=== PATIENT | male | born 1955 | race Caucasian/White ===

== ENCOUNTER 2019-09-25 09:29 | Emergency (ER) | payer OTHER, SELFPAY ==
[2019-09-25] VITALS (8 sets, daily range): BP systolic 122–149; BP diastolic 65–108; PULSE 92–113; RESP 18–24; TEMP 36.9; O2SAT 92–95; BMI 31.4
--- NOTE | 2019-09-25 09:53 | ED_ITS ---
HPI - SOB/Dyspnea General: Chief Complaint: Shortness of Breath/Dyspnea Stated Complaint: SOB Time Seen by Provider: 09/25/19 09:53 History of Present Illness: HPI Narrative: 64-year-old male comes in complaining of shortness of breath the last week getting progressively worse. He has a history of COPD he is not usually on oxygen. 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 including [employer] he did encounter a large number of people and was not regularly wearing any kind of mask. He does not had a fever at all. He has a slightly productive cough but it does not change from his baseline. He has been slightly more constipated he denies any dysuria urgency or frequency. No hematochezia melena hematemesis or coffee- ground emesis. he repeatedly denies any chest pain, but he does have a known history of coronary artery disease. He does have some inhaled medications at home that he has been using the only when he definitively identifies his albuterol which is helpful. MD elicited complaint: shortness of breath and cough Pertinent past history: COPD Onset (ago): week(s) (1) Context: recent travel ([facility] where he encountered a number of people throughout the city making deliveries with his truck) Timing: intermittent Severity: moderate Exacerbating factors: movement Relieving factors: rest and bronchodilators Known history of: COPD Associated symptoms: Reports cough; Deny chest congestion, chest pain, fever(s), hemoptysis, myalgias, nausea, palpitations, syncope or vomiting Treatment prior to arrival: bronchodilator Review of Systems 2 Const: Denies: fever ENMT: Denies: throat pain, ear pain, nasal discharge or nasal congestion Card: Denies: chest pain, palpitations or syncope Resp: Denies: coughing up blood or chest congestion GI: Denies: nausea or vomiting : Denies: flank pain, painful urination, urinary frequency or urinary urgency Skin/Breast: Denies: rash or itching PFSH ED PFSH: Social History Smoking and tobacco status: former smoker Physical Exam Const: COMMON NORMALS: no apparent distress GENERAL APPEARANCE: cooperative and comfortable ORIENTATION/CONSCIOUSNESS: Yes awake, Yes oriented to person, Yes oriented to place and Yes oriented to time HENMT: COMMON NORMALS: normocephalic, head/scalp atraumatic, hearing grossly normal bilaterally, external ears normal, EAC's normal, TM's normal bilaterally, nasal mucous membranes and turbinates normal, moist oral mucous membranes and oropharynx normal HEAD & SCALP: normocephalic and atraumatic NOSE: nasal mucous membranes and turbinates normal EXTERNAL EAR: Yes external ears normal EXTERNAL AUDITORY CANAL: EAC's normal TYMPANIC MEMBRANE: TM's normal bilaterally Eye: COMMON NORMALS: PERRL, EOMs intact bilaterally, conjunctivae normal and no scleral icterus CONJUNCTIVA: Yes conjunctivae normal PUPIL: Yes PERRL Neck/C-Spine: COMMON NORMALS: full ROM, no lymphadenopathy, supple and no JVD Lymph: LYMPHATIC: no lymphadenopathy noted and no lymphedema noted Resp: COMMON NORMALS: normal respiratory effort, no retractions and no use of accessory muscles AUSCULTATION: wheezes expiratory wheezes and throughout Cardio: COMMON NORMALS: no JVD, regular rate, regular rhythm and no murmurs RATE: regular rate RHYTHM: regular rhythm GI: COMMON NORMALS: soft to palpation and no hepatosplenomegaly AUSCULTATION: Yes normoactive bowel sounds PALPATION: Yes soft, No tender, No guarding and Yes no hepatosplenomegaly Extremity: COMMON NORMALS: normal to inspection, normal capillary refill, no clubbing, cyanosis or edema, no calf tenderness and no pedal edema Neuro: SENSORIUM/ORIENTATION: Yes oriented to person, Yes oriented to place and Yes oriented to time Skin: COMMON NORMALS: no rashes or lesions noted GENERAL SKIN EXAM: no rashes or lesions noted Course Vital Signs: Vital signs: Vital Signs Temperature 98.4 F 09/25/19 09:34 Pulse Rate 92 09/25/19 14:16 Respiratory Rate 20 H 09/25/19 14:16 Blood Pressure 122/72 09/25/19 14:16 Pulse Oximetry 95 09/25/19 14:16 MDM - SOB/Dyspnea MDM Narrative: Medical decision making narrative: Patient appears like he is a moderate pneumonia. He is handling this well is well compensated at this point we recommend that he self quarantine until his COVID-19 results are available. We will start him on doxycycline Medrol dose pack continue to use albuterol MDI as needed. Return if has worsening problems. Lab Data: Labs: Lab Results 04/24/20 04/24/20 04/24/20 Range/Units 10:30 10:45 10:45 WBC 4.4 (4.0-10.0) 10^3/ uL RBC 4.30 (4.1-5.3) 10^6/u L Hgb 10.8 L (11.7-16.6) g/dL Hct 36.6 L (42.0-52.0) % MCV 85.1 (80-94) fL MCH 25.1 L (28.0-34.0) pg MCHC 29.5 L (30.0-36.0) g/dL RDW 18.1 H (12.1-15.1) % Plt Count 207 (130-400) 10^3/c mm MPV 10.4 (7.4-10.4) fL Neut % (Auto) 69.4 % Lymph % (Auto) 18.2 % [place] % (Auto) 9.4 % Eos % (Auto) 2.3 % Baso % (Auto) 0.5 % Neut # (Auto) 3.0 (1.8-7.7) 10^3/u L Lymph # (Auto) 0.8 (0.8-4.8) 10^3/u L [place] # (Auto) 0.4 (0.2-0.9) 10^3/u L Eos # (Auto) 0.1 (0.0-0.8) 10^3/u L Baso # (Auto) 0.0 (0.0-0.1) 10^3/u L Nucleated RBC % (a uto) 0 % Nucleated RBCs # 0.0 /100WBC Specimen Type Arterial Sample Site Radial, left ABG pH 7.44 (7.35-7.45) ABG pCO2 36.8 (35-45) mmHg ABG pO2 64.0 L (80.0-100.0) mmH g ABG HCO3 25.2 (22-26) mmol/L ABG Base Excess 1.2 (-2.0-2.0) mmol/ L Derek Test Pos Hematocrit 33.8 L (42-52) % Hgb O2 Saturation 90.8 L (95-100) % Carboxyhemoglobin 1.4 (0.4-20.1) %THgb Methemoglobin 0.8 (0.4-1.5) % Total Hemoglobin 11.0 L (14-18) g/dL O2 Delivery Device Room air FiO2 21.0 % Enterprise Sales Executive ID [id number] Sodium 143 (136-145) mmol/L Potassium 4.0 (3.5-5.1) mmol/L Chloride 107 (98-107) mmol/L Carbon Dioxide 26 (22-29) mmol/L Anion Gap 14.0 (5-19) BUN 16 (8-23) mg/dL Creatinine 1.2 (0.7-1.2) mg/dL GFR Calculation 60.8 L (90-130) mL/min Glucose 136 H (65-115) mg/dL Calculated Osmolal ity 294 (285-295) mOsm/k g Calcium 8.8 (8.5-10.5) mg/dL Total Bilirubin 0.9 (0.15-1.2) mg/dL AST 15 (0-40) U/L ALT 14 (0-41) U/L Alkaline Phosphata se 91 (40-130) IU/L Total Protein 6.6 (6.6-8.7) g/dL Albumin 3.9 (3.5-5.2) g/dL Globulin 2.7 (1.3-4.6) g/dL Nasal/Oral COVID-1 9 PCR Influenza Type A A g (Negative) Influenza Type B A g (Negative) 09/25/19 09/25/19 Range/Units 10:47 10:47 WBC (4.0-10.0) 10^3/ uL RBC (4.1-5.3) 10^6/u L Hgb (11.7-16.6) g/dL Hct (42.0-52.0) % MCV (80-94) fL MCH (28.0-34.0) pg MCHC (30.0-36.0) g/dL RDW (12.1-15.1) % Plt Count (130-400) 10^3/c mm MPV (7.4-10.4) fL Neut % (Auto) % Lymph % (Auto) % [place] % (Auto) % Eos % (Auto) % Baso % (Auto) % Neut # (Auto) (1.8-7.7) 10^3/u L Lymph # (Auto) (0.8-4.8) 10^3/u L [place] # (Auto) (0.2-0.9) 10^3/u L Eos # (Auto) (0.0-0.8) 10^3/u L Baso # (Auto) (0.0-0.1) 10^3/u L Nucleated RBC % (a uto) % Nucleated RBCs # /100WBC Specimen Type Sample Site ABG pH (7.35-7.45) ABG pCO2 (35-45) mmHg ABG pO2 (80.0-100.0) mmH g ABG HCO3 (22-26) mmol/L ABG Base Excess (-2.0-2.0) mmol/ L Derek Test Hematocrit (42-52) % Hgb O2 Saturation (95-100) % Carboxyhemoglobin (0.4-20.1) %THgb Methemoglobin (0.4-1.5) % Total Hemoglobin (14-18) g/dL O2 Delivery Device FiO2 % Enterprise Sales Executive ID Sodium (136-145) mmol/L Potassium (3.5-5.1) mmol/L Chloride (98-107) mmol/L Carbon Dioxide (22-29) mmol/L Anion Gap (5-19) BUN (8-23) mg/dL Creatinine (0.7-1.2) mg/dL GFR Calculation (90-130) mL/min Glucose (65-115) mg/dL Calculated Osmolal ity (285-295) mOsm/k g Calcium (8.5-10.5) mg/dL Total Bilirubin (0.15-1.2) mg/dL AST (0-40) U/L ALT (0-41) U/L Alkaline Phosphata se (40-130) IU/L Total Protein (6.6-8.7) g/dL Albumin (3.5-5.2) g/dL Globulin (1.3-4.6) g/dL Nasal/Oral COVID-1 9 PCR Negative Influenza Type A A g Negative (Negative) Influenza Type B A g Negative (Negative) Discharge Plan Discharge Patient Disposition: Home, Self-Care Clinical Impression: Community acquired pneumonia, Acute exacerbation of chronic obstructive airways disease Condition: Stable Prescriptions: New doxycycline hyclate 100 mg capsule 100 mg PO BID 10 Days Qty: 20 RF: 0 Medrol (Joe) 4 mg tablets,dose pack See Rx Instructions .ROUTE .COMPLEX Qty: 21 RF: 0 No Action atorvastatin 20 mg Tablet 10 mg PO DAILY RF: 0 ipratropium-albuterol 0.5 mg-3 mg(2.5 mg base)/3 mL Solution For Nebulization 3 ml INHALATION Q6H PRN (Reason: Shortness Of Breath) RF: 0 aspirin 325 mg Tablet 325 mg PO DAILY RF: 0 levothyroxine 50 mcg Tablet 50 mcg PO DAILY RF: 0 pantoprazole 40 mg Tablet,Delayed Release (Dr/Ec) 40 mg PO DAILY RF: 0 metoprolol tartrate 50 mg Tablet 25 mg PO BID RF: 0 albuterol sulfate 90 mcg/actuation Hfa Aerosol Inhaler 2 puff INHALATION Q6H PRN (Reason: Shortness Of Breath) RF: 0 budesonide-formoterol 80-4.5 mcg/actuation Hfa Aerosol Inhaler 2 puff INHALATION BID RF: 0 Vitamin D3 50 mcg (2,000 unit) Capsule 100 mcg PO DAILY RF: 0 Discharge Orders: Discharge Order (Routine); Ordered 09/25/19 Ordered By: Job Magana Referrals: Isela Gipson, FILM SORTER [Primary Care Provider] - Discharge Diet: Usual diet Discharge Activity: Increase activity as tolerated Activity Restrictions/Additional Instructions: Recommend that you self quarantine until the results of your COVID-19 test are available. Use albuterol 2 puffs every 4 hours as needed antibiotics and steroids as prescribed today follow-up with your primary care doctor early next week. Return to the emergency room if you have any difficulties or worsening symptoms. 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
--- NOTE | 2019-09-25 10:11 | XR_ITS ---
WS: [id number] CHEST XRAY TECHNIQUE: Portable chest. CLINICAL INFORMATION: cough COMPARISON: May 27, 2019 FINDINGS: Heart: Cardiomegaly. Sternotomy. CABG. Lungs: Small left greater than right pleural effusions. Bibasilar atelectasis. Interstitial infiltrat es in the lower lobes bilaterally and left midlung. Bones: Normal visualized bony structures. XR/XR chest 1V portable [id number] IMPRESSION: 1. Interstitial infiltrates suspicious for pneumonia in both lower lobes and l eft midlung. 2. Small left greater than right pleural effusions with chronic appearing pleu ral thickening. 3. Sternotomy with cardiomegaly and CABG.
[2019-09-25] MEDS: albuterol 8 gm MDI 2 PUFF INHALATION (10:30)
[2019-09-25 10:42] LABS: ABG PCO2 36.8 mmHg (35-45); ABG PH Result 7.44 (7.35-7.45); Arterial Blood Gas Hematocrit 33.8 % (42-52); Base Excess ABG 1.2 mmol/L (-2.0-2.0); Blood Gas Allen Test Pos; Blood Gas Operator Identificat amh; Blood Gas Sample Site Radial, left; Blood Gas Sample Type Arterial; Carboxyhemoglobin 1.4 %THgb (0.4-20.1); HCO3 ABG 25.2 mmol/L (22-26); HGB O2 Sat 90.8 % (95-100); Methemoglobin 0.8 % (0.4-1.5); Oxygen Device ROOM AIR
[2019-09-25 11:22] LABS: Basophils % 0.5 %; Eosinophils # 0.1 10^3/uL (0.0-0.8); Eosinophils % 2.3 %; Hematocrit 36.6 % (42.0-52.0); Hemoglobin 10.8 g/dL (11.7-16.6); Lymphocytes # 0.8 10^3/uL (0.8-4.8); Lymphocytes % 18.2 %; Mean Corpuscular HGB Conc 29.5 g/dL (30.0-36.0); Mean Corpuscular Hemoglobin 25.1 pg (28.0-34.0); Mean Corpuscular Volume 85.1 fL (80-94); Mean Platelet Volume 10.4 fL (7.4-10.4); Monocytes # 0.4 10^3/uL (0.2-0.9); Monocytes % 9.4 %; Neutrophils % 69.4 %; Nucleated Red Blood Cells % 0 %; Platelet Count 207 10^3/cmm (130-400); Red Cell Distribution Width 18.1 % (12.1-15.1); White Blood Count 4.4 10^3/uL (4.0-10.0)
--- NOTE | 2019-09-25 11:36 | CT_ITS ---
WS: [id number] CTA OF THE CHEST WITH PULMONARY EMBOLISM PROTOCOL TECHNIQUE: High-resolution contrast enhanced CTA of the chest with coronal and sagittal reformatted i mages with pulmonary embolism protocol. MIP images are also reviewed. CLINICAL INFORMATION: dyspnea COMPARISON: None. DLP: 1325.[address] scans at [facility] use at least one of these dose optimization techniques: automat ed exposure control; mA and/or kV adjustment per patient size (includes targeted exams where dose is matched to clinical indication); or iterative reconstruction. FINDINGS: Proximal main pulmonary arteries are normal. Normal segmental and subsegmental pulmonary ar teries. No evidence of pulmonary embolus. Advanced centrilobular emphysema. Small left greater than right pleural effusions. Bibasilar atelecta sis. A few patchy opacities in both lower lobes. No mediastinal or hilar lymphadenopathy. No axillary lymphadenopathy. Adrenal glands are normal. Mild edema in the partially visualized gallbladder fossa. Gallbladder can be further evaluated with ultra sound. Mild gallbladder wall thickening. No visualized cholelithiasis. A few small hepatic cysts. Mod erate esophageal hiatal hernia. Attempted notification Job Magana DO at 09/25/2019 2:[address]/CT angio chest PE protcl [id number] IMPRESSION: 1. Proximal main pulmonary arteries are normal. Normal segmental and subsegmen jeremy pulmonary arteries. No evidence of pulmonary embolus. 2. Advanced centrilobular emphysema. 3. Small bilateral pleural effusions with bibasilar atelectasis. A few scatter ed patchy opacities in both lower lobes may be infectious or inflammatory. No f ocal pneumonia. 4. Mild gallbladder wall thickening with a small amount of edema in the gallbl adder fossa. This can be further evaluated with ultrasound. 5. Moderate esophageal hiatal hernia.
[2019-09-25 11:37] LABS: Alanine Aminotransferase 14 U/L (0-41); Albumin Level 3.9 g/dL (3.5-5.2); Alkaline Phosphatase 91 IU/L (40-130); Aspartate Amino Transferase 15 U/L (0-40); Blood Urea Nitrogen 16 mg/dL (8-23); Calcium 8.8 mg/dL (8.5-10.5); Carbon Dioxide 26 mmol/L (22-29); Chloride 107 mmol/L (98-107); Globulin 2.7 g/dL (1.3-4.6); Glomerular Filtration Rate 60.8 mL/min (90-130); Glucose 136 mg/dL (65-115); Osmolality Calculated 294 mOsm/kg (285-295); Sodium 143 mmol/L (136-145); Total Bilirubin 0.9 mg/dL (0.15-1.2); Total Protein 6.6 g/dL (6.6-8.7)
[2019-09-25 11:44] LABS: Influenza A by IFA Negative (Negative); Influenza B by IFA Negative (Negative)
[2019-09-25] MEDS: azithromycin 500 MG in sodium chloride 0.9% 250 ML 250 MG IV (12:15)
[2019-09-25] MEDS: cefTRIAXone 1,000 MG in sodium chloride 0.9% (plus) 50 ML 100 MG IV (13:26)
--- NOTE | 2019-09-25 13:26 | PC.ADMIT ---
108 [facility] Admission Note: The patient,Gabino Jones,64 y/o, was given written information regarding hospital policies, unit procedures and contact persons. Patient's smoking status: former smoker. Vital Signs - 8 hr 09/25/19 09:34 09/25/19 09:52 09/25/19 10:30 Temperature 98.4 F Pulse Rate 113 H 101 H Respiratory Rate 20 H 20 H Blood Pressure 149/108 Pulse Oximetry 94 92 93 09/25/19 10:40 09/25/19 10:47 09/25/19 11:48 Temperature Pulse Rate 98 96 96 Respiratory Rate 20 H 24 H 19 H Blood Pressure 136/83 125/65 Pulse Oximetry 93 94 95 09/25/19 12:18 Temperature Pulse Rate 96 Respiratory Rate 18 Blood Pressure 128/75 Pulse Oximetry 94 [id number]
[2019-09-25] MEDS: iodixanol 320 mg/mL 100mL Btl IV (14:34)
[2019-09-26 09:40] LABS: Coronavirus Lab Test PTC Negative
--- NOTE | 2019-09-26 12:20 | PC.NURSE ---
called patient to inform that his COVID testing was negative. was able to reach patient on number provided and informed him.
== END 2019-09-25 15:08 | disposition home or self-care (01) ==
PROVIDERS: Emergency Provider Family Medicine; Family Provider Nurse Practitioner; PCP Nurse Practitioner
DX: J44.1 Chronic obstructive pulmonary disease with (acute) exacerbation (principal); J44.0 Chronic obstructive pulmonary disease with (acute) lower respiratory infection; J18.8 Other pneumonia, unspecified organism; Z79.82 Long term (current) use of aspirin; Z87.891 Personal history of nicotine dependence
CPT/HCPCS: 12345; 36600; 71045; 71275; 80053; 82805; 85025; 87040; 87070; 87205; 87635; 87804; 94640; 96365; 96366; 96367; 96374; 99283; 99284; J0456; J0696; J2930; J3535; J7050; Q9967

== ENCOUNTER 2019-10-14 12:12 | Inpatient (IN) | payer OTHER, MEDICARE, SELFPAY ==
[2019-10-14] VITALS (47 sets, daily range): BP systolic 112–154; BP diastolic 78–112; PULSE 76–141; RESP 14–28; TEMP 37; O2SAT 88–98; BMI 32.3
--- NOTE | 2019-10-14 12:20 | XR_ITS ---
WS: [id number] PORTABLE CHEST HISTORY: cough COMPARISON: 09/25/2019 Prior CABG. Hyperinflated lungs with emphysema. Increasing opacifications in the lower lung rivera bilaterally. S uperimposed on changes of fibrosis. Small bilateral pleural effusions. Cardiac size: Mildly enlarged cardiac silhouette. Mediastinum/Aorta: Mild atherosclerosis aorta. No osseous abnormality seen. XR/XR chest 1V portable [id number] IMPRESSION: 1. Chronic advanced emphysema. 2. Increasing consolidations at the lung bases is likely representing pneumoni a superimposed on pulmonary fibrosis. 3. Small bilateral pleural effusions.
--- NOTE | 2019-10-14 12:21 | ECG_ITS ---
Measurements Intervals [place] Rate: 119 P: [place]: 0 QRS: 28 QRSD: 129 T: 38 QT: 357 QTc: 503 ATRIAL FIBRILLATION WITH RAPID VENTRICULAR RESPONSE RIGHT BUNDLE BRANCH BLOCK [120+ ms QRS DURATION, UPRIGHT V1, 40+ ms S IN I/ I/aVL/V4/V5/V6] Compared to ECG 05/27/2019 05:06:02 Sinus rhythm no longer present Electronically Signed On 10-14-2019 20:32:56 CDT by Mathew Sanchez M.D. [email or web address]
--- NOTE | 2019-10-14 12:22 | ED_ITS ---
HPI - SOB/Dyspnea General: Chief Complaint: Shortness of Breath/Dyspnea Stated Complaint: SOB Time Seen by Provider: 10/14/19 12:16 History of Present Illness: HPI Narrative: Mr. Jones is a 64-year-old male who comes in from the OR after being sent by his doctor for the report of worsening pneumonia and hypoxia. Have a history of COPD but does not wear oxygen. He has increased amount of sputum production but no change in color. He states his sputum is clear. He denies any chest pain. Patient states he was tested for the coronavirus approximately 2 to 3 weeks ago and it was negative. He states his symptoms have not changed since then. He otherwise denies any complaints or concerns. At this time he has only mild difficulty breathing. Associated symptoms: Deny abdominal pain, chest pain, diaphoresis, dizziness, extremity pain, fever(s), hemoptysis, lightheadedness, nausea, orthopnea, palpitations, polydipsia, polyuria, syncope or vomiting Review of Systems Const: Denies: fever(s), chills, body aches, fatigue, malaise, night sweats or diaphoresis Eyes: Denies: change in vision, blurry vision or blind spots ENMT: Denies: throat pain, odynophagia, hoarseness, ear or mastoid pain, ear discharge, change in hearing or nasal discharge Card: Denies: chest pain, palpitations, irregular heart rhythm, lightheadedness, syncope, pre-syncope, dyspnea on exertion or orthopnea Resp: Reports: dyspnea, productive cough, non-productive cough and wheezing; Denies: hemoptysis GI: Denies: abdominal pain, nausea, vomiting, hematemesis, coffee ground emesis, heartburn, diarrhea, constipation, GI cramping, hematochezia or melena : Denies: flank pain, dysuria, urinary frequency, urinary urgency, oliguria, urinary incontinence or hematuria Musc: Denies: neck pain, back pain, extremity pain, extremity swelling, joint pain, joint swelling, joint redness, joint warmth or joint stiffness Skin/Breast: Denies: rash, pruritus, erythema, skin tenderness or jaundice Neuro: Denies: headache(s), numbness in extremities, weakness in extremities, sensory changes, lack of coordination, difficulty walking, dizziness, vertigo, confusion or Slurred speech present Endo: Denies: polyuria, polydipsia, tired all the time, cold intolerance, excessive sweating, flushing, hot flashes or heat intolerance Chavez/Lymph: Denies: easy bruising, easy bleeding, petechiae, purpura or enlarged lymph nodes All/Imm: Denies: urticaria, throat swelling, tongue swelling, facial swelling or acute wheezing PFSH ED PFSH: Medical History (Updated 10/14/19 @ 15:21 by Corwin Martini MD) Anemia Atrial fibrillation COPD (chronic obstructive pulmonary disease) Coronary artery disease GERD (gastroesophageal reflux disease) Hyperlipidemia Hypertension Hypothyroidism Surgical History (Updated 10/14/19 @ 15:13 by Corwin Martini MD) History of coronary artery bypass graft March 2019 [facility] History of knee surgery History of vasectomy Family History (Updated 10/14/19 @ 15:13 by Corwin Martini MD) Other CAD (coronary artery disease) Social History (Updated 10/14/19 @ 15:13 by Corwin Martini MD) Smoking and tobacco status: former smoker Alcohol intake: never Substance/Drug Use: never Physical Exam Const: COMMON NORMALS: patient oriented x3, no limitations, healthy appearing and well nourished EXAM LIMITATIONS: no altered mental status GENERAL APPEARANCE: cooperative, well kempt, well developed and in distress (Mild respiratory distress) HENMT: COMMON NORMALS: normocephalic, atraumatic, hearing grossly normal bilaterally, external ears normal, EAC's normal, Normal external nose present and moist oral mucous membranes HEAD & SCALP: normal to inspection, normocephalic and atraumatic FACE & SINUS: normal facial exam and face symmet guillermina NOSE: Normal external nose present and Normal nares present EXTERNAL EAR: Yes external ears normal EXTERNAL AUDITORY CANAL: EAC's normal MOUTH: Normal oral and palatal mucosa present, lip normal and tongue normal Eye: COMMON NORMALS: Equal, round and reactive pupils present, EOMs intact bilaterally, conjunctivae normal and no scleral icterus GENERAL EYE: appearance normal, both eyes and all related structures and normal light reflex ALIGNMENT: Yes alignment normal PERIORBITAL: periorbital findings normal EYELID: eyelids normal CONJUNCTIVA: Yes conjunctivae normal SCLERA: sclerae normal PUPIL: Yes Equal, round and reactive pupils present DIRECT OPHTHALMOSCOPY: Yes normal light reflex Neck/C-Spine: COMMON NORMALS: full ROM, no lymphadenopathy, supple, no meningeal signs and no JVD GENERAL: Yes normal visual inspection and Yes trachea midline CERVICAL SPINE: Yes cervical ROM normal Chest: COMMONS NORMALS: normal inspection of the chest and normal palpation of entire chest wall Resp: EFFORT & INSPECTION: Yes able to speak in complete sentences, Yes tachypneic, Yes respiratory distress and Yes uses accessory muscles AUSCULTATION: no crackles, no rales, rhonchi, wheezes and diminished lung sounds Cardio: COMMON NORMALS: no JVD, regular rate, regular rhythm, S1 normal heart sound present, S2 normal heart sound present, No gallops present (Cardio), No clicks present (Cardio), No murmurs present (Cardio) and No rub (Cardio) RATE: regular rate RHYTHM: regular rhythm HEART SOUNDS: S1 normal heart sound present, S2 normal heart sound present, no click, no gallops, no murmurs and no rubs GI: COMMON NORMALS: Soft to palpation, non-tender, No hepatosplenomegaly present and no masses PALPATION: Yes Soft to palpation, No Tenderness to palpation present (GI), No Guarding due to palpation present (GI), No Rigid due to palpation, Yes No hepatosplenomegaly present, No Hernia present, No Palpable mass present and No Pulsatile mass present : COMMON NORMALS: Yes no CVA tenderness BLADDER/KIDNEY EXAM: Yes no CVA tenderness Back/Pelvis: COMMON NORMALS: no CVA tenderness, thoracic and lumbar spine normal to inspection, no thoracic nor lumbar tenderness and thoraco-lumbar ROM normal Extremity: COMMON NORMALS: normal to inspection, full ROM, capillary refill normal, no joint enlargement, no clubbing, cyanosis or edema and no calf tenderness Neuro: SOFIYA COMA SCALE: document GCS findings [place] coma scale eye opening: Spontaneous [place] coma scale verbal response: Orientated [place] coma scale motor response: Obey commands [place] coma scale total score: 15 COMMON NORMALS: patient oriented x3, CN's II-XII intact bilaterally, moves all extrem ities, no focal motor deficits and no sensory deficits noted MENINGEAL SIGNS: Yes no meningeal signs SPEECH: speech normal Psych: COMMON NORMALS: mental status grossly normal, Normal thought process present, cooperative, normal affect, speech normal and activity/motor behavior normal APPEARANCE: Yes well kempt SPEECH: Yes normal speech THOUGHT PROCESS: Normal thought process present Skin: COMMON NORMALS: no rashes or lesions noted, turgor normal, no jaundice, no petechiae and no mottling GENERAL SKIN EXAM: no rashes or lesions noted and turgor normal Course Vital Signs: Vital signs: Vital Signs Temperature 98.6 F 10/14/19 12:17 Pulse Rate 141 H 10/14/19 14:49 Respiratory Rate 28 H 10/14/19 14:49 Blood Pressure 138/105 10/14/19 14:49 Pulse Oximetry 95 10/14/19 14:49 MDM - SOB/Dyspnea MDM Narrative: Medical decision making narrative: The case was reviewed with Dr. Martini. He agrees to come and evaluate the patient. Patient appears to have failed outpatient treatment of pneumonia but also his A. fib is elevated in the 100s to 1 teens range. This is likely causing the flareup of his heart failure. I will not place him on a drip at this time as his heart rates only in the 100s and sometimes down into the 90s. Patient has been loaded on antibiotics. Further care will be dictated by Dr. Almendarez. Lab Data: Labs: Lab Results 10/14/19 10/14/19 10/14/19 Range/Units 12:26 12:26 12:26 WBC 5.9 (4.0-10.0) 10^3/ uL RBC 4.72 (4.1-5.3) 10^6/u L Hgb 11.3 L (11.7-16.6) g/dL Hct 38.9 L (42.0-52.0) % MCV 82.4 (80-94) fL MCH 23.9 L (28.0-34.0) pg MCHC 29.0 L (30.0-36.0) g/dL RDW 17.1 H (12.1-15.1) % Plt Count 217 (130-400) 10^3/c mm MPV 9.6 (7.4-10.4) fL Neut % (Auto) 76.5 % Lymph % (Auto) 13.7 % [place] % (Auto) 7.8 % Eos % (Auto) 0.8 % Baso % (Auto) 0.7 % Neut # (Auto) 4.5 (1.8-7.7) 10^3/u L Lymph # (Auto) 0.8 (0.8-4.8) 10^3/u L [place] # (Auto) 0.5 (0.2-0.9) 10^3/u L Eos # (Auto) 0.1 (0.0-0.8) 10^3/u L Baso # (Auto) 0.0 (0.0-0.1) 10^3/u L Nucleated RBC % (a uto) 0 % Nucleated RBCs # 0.0 /100WBC Specimen Type Sample Site ABG pH (7.35-7.45) ABG pCO2 (35-45) mmHg ABG pO2 (80.0-100.0) mmH g ABG HCO3 (22-26) mmol/L ABG O2 Saturation ABG Base Excess (-2.0-2.0) mmol/ L Derek Test A-a O2 Gradient (5-10) mmHg Hematocrit (42-52) % Hgb O2 Saturation (95-100) % Carboxyhemoglobin (0.4-20.1) %THgb Methemoglobin (0.4-1.5) % Total Hemoglobin (14-18) g/dL Ionized Calcium (1.1-1.4) mmol/L O2 Delivery Device FiO2 % Evp Chief Exploration Officer ID Sodium 139 (136-145) mmol/L Potassium 4.3 (3.5-5.1) mmol/L Chloride 103 (98-107) mmol/L Carbon Dioxide 23 (22-29) mmol/L Anion Gap 17.3 (5-19) BUN 22 (8-23) mg/dL Creatinine 1.2 (0.7-1.2) mg/dL GFR Calculation 60.8 L (90-130) mL/min Glucose 90 (65-115) mg/dL Calculated Osmolal ity 284 L (285-295) mOsm/k g Lactic Acid 1.3 (0.5-2.2) mmol/L Calcium 9.1 (8.5-10.5) mg/dL Magnesium 2.2 (1.7-2.3) mg/dL Total Bilirubin 1.2 (0.15-1.2) mg/dL AST 12 (0-40) U/L ALT 13 (0-41) U/L Alkaline Phosphata se 94 (40-130) IU/L Troponin T Baselin e (0-15) ng/mL Troponin T 120 Min k[place]isp[place] (0-15) ng/mL Delta Troponin T (0-10) ABS# NT-Pro-B Natriuret Pep 5253 H (0-125) pg/mL Total Protein 6.6 (6.6-8.7) g/dL Albumin 4.3 (3.5-5.2) g/dL Globulin 2.3 (1.3-4.6) g/dL Urine Color (Yellow) Urine Appearance (CLEAR) Urine pH (5-7) Ur Specific Gravit y (1.005-1.030) Urine Protein (Negative) Urine Glucose (UA) (Normal) Urine Ketones (Negative) Urine Blood (Negative) Urine Nitrate (Negative) Urine Bilirubin (NEGATIVE) Urine Urobilinogen (Negative) mg/dL Ur Leukocyte Shyanne ase (Negative) Urine RBC (0-2) /hpf Urine WBC (0-5) /hpf Ur Squamous Epith Cells (0-5) Urine Bacteria (NONE) Urine Mucus Influenza Type A A g (Negative) Influenza Type B A g (Negative) 10/14/19 10/14/19 10/14/19 Range/Units 12:26 12:35 13:27 WBC (4.0-10.0) 10^3/ uL RBC (4.1-5.3) 10^6/u L Hgb (11.7-16.6) g/dL Hct (42.0-52.0) % MCV (80-94) fL MCH (28.0-34.0) pg MCHC (30.0-36.0) g/dL RDW (12.1-15.1) % Plt Count (130-400) 10^3/c mm MPV (7.4-10.4) fL Neut % (Auto) % Lymph % (Auto) % [place] % (Auto) % Eos % (Auto) % Baso % (Auto) % Neut # (Auto) (1.8-7.7) 10^3/u L Lymph # (Auto) (0.8-4.8) 10^3/u L [place] # (Auto) (0.2-0.9) 10^3/u L Eos # (Auto) (0.0-0.8) 10^3/u L Baso # (Auto) (0.0-0.1) 10^3/u L Nucleated RBC % (a uto) % Nucleated RBCs # /100WBC Specimen Type Arterial Sample Site Radial, left ABG pH 7.45 (7.35-7.45) ABG pCO2 32.6 L (35-45) mmHg ABG pO2 62.2 L (80.0-100.0) mmH g ABG HCO3 22.4 (22-26) mmol/L ABG O2 Saturation 91.9 ABG Base Excess -1.1 (-2.0-2.0) mmol/ L Derek Test Pos A-a O2 Gradient 45.6 H (5-10) mmHg Hematocrit 33.9 L (42-52) % Hgb O2 Saturation 90.4 L (95-100) % Carboxyhemoglobin 1.3 (0.4-20.1) %THgb Methemoglobin 0.4 (0.4-1.5) % Total Hemoglobin 11.1 L (14-18) g/dL Ionized Calcium 1.2 (1.1-1.4) mmol/L O2 Delivery Device Room air FiO2 21.0 % Evp Chief Exploration Officer ID [email or web address] Sodium 139.0 (136-145) mmol/L Potassium 4.0 (3.5-5.1) mmol/L Chloride (98-107) mmol/L Carbon Dioxide (22-29) mmol/L Anion Gap (5-19) BUN (8-23) mg/dL Creatinine (0.7-1.2) mg/dL GFR Calculation (90-130) mL/min Glucose 91.0 (65-115) mg/dL Calculated Osmolal ity (285-295) mOsm/k g Lactic Acid (0.5-2.2) mmol/L Calcium (8.5-10.5) mg/dL Magnesium (1.7-2.3) mg/dL Total Bilirubin (0.15-1.2) mg/dL AST (0-40) U/L ALT (0-41) U/L Alkaline Phosphata se (40-130) IU/L Troponin T Baselin e 25 H (0-15) ng/mL Troponin T 120 Min kal[place]el (0-15) ng/mL Delta Troponin T (0-10) ABS# NT-Pro-B Natriuret Pep (0-125) pg/mL Total Protein (6.6-8.7) g/dL Albumin (3.5-5.2) g/dL Globulin (1.3-4.6) g/dL Urine Color (Yellow) Urine Appearance (CLEAR) Urine pH (5-7) Ur Specific Gravit y (1.005-1.030) Urine Protein (Negative) Urine Glucose (UA) (Normal) Urine Ketones (Negative) Urine Blood (Negative) Urine Nitrate (Negative) Urine Bilirubin (NEGATIVE) Urine Urobilinogen (Negative) mg/dL Ur Leukocyte Shyanne ase (Negative) Urine RBC (0-2) /hpf Urine WBC (0-5) /hpf Ur Squamous Epith Cells (0-5) Urine Bacteria (NONE) Urine Mucus Influenza Type A A g Negative (Negative) Influenza Type B A g Negative (Negative) 10/14/19 10/14/19 Range/Units 14:50 14:56 WBC (4.0-10.0) 10^3/ uL RBC (4.1-5.3) 10^6/u L Hgb (11.7-16.6) g/dL Hct (42.0-52.0) % MCV (80-94) fL MCH (28.0-34.0) pg MCHC (30.0-36.0) g/dL RDW (12.1-15.1) % Plt Count (130-400) 10^3/c mm MPV (7.4-10.4) fL Neut % (Auto) % Lymph % (Auto) % [place] % (Auto) % Eos % (Auto) % Baso % (Auto) % Neut # (Auto) (1.8-7.7) 10^3/u L Lymph # (Auto) (0.8-4.8) 10^3/u L [place] # (Auto) (0.2-0.9) 10^3/u L Eos # (Auto) (0.0-0.8) 10^3/u L Baso # (Auto) (0.0-0.1) 10^3/u L Nucleated RBC % (a uto) % Nucleated RBCs # /100WBC Specimen Type Sample Site ABG pH (7.35-7.45) ABG pCO2 (35-45) mmHg ABG pO2 (80.0-100.0) mmH g ABG HCO3 (22-26) mmol/L ABG O2 Saturation ABG Base Excess (-2.0-2.0) mmol/ L Derek Test A-a O2 Gradient (5-10) mmHg Hematocrit (42-52) % Hgb O2 Saturation (95-100) % Carboxyhemoglobin (0.4-20.1) %THgb Methemoglobin (0.4-1.5) % Total Hemoglobin (14-18) g/dL Ionized Calcium (1.1-1.4) mmol/L O2 Delivery Device FiO2 % Evp Chief Exploration Officer ID Sodium (136-145) mmol/L Potassium (3.5-5.1) mmol/L Chloride (98-107) mmol/L Carbon Dioxide (22-29) mmol/L Anion Gap (5-19) BUN (8-23) mg/dL Creatinine (0.7-1.2) mg/dL GFR Calculation (90-130) mL/min Glucose (65-115) mg/dL Calculated Osmolal ity (285-295) mOsm/k g Lactic Acid (0.5-2.2) mmol/L Calcium (8.5-10.5) mg/dL Magnesium (1.7-2.3) mg/dL Total Bilirubin (0.15-1.2) mg/dL AST (0-40) U/L ALT (0-41) U/L Alkaline Phosphata se (40-130) IU/L Troponin T Baselin e (0-15) ng/mL Troponin T 120 Min [place] 22.19 H (0-15) ng/mL Delta Troponin T -2.81 L (0-10) ABS# NT-Pro-B Natriuret Pep (0-125) pg/mL Total Protein (6.6-8.7) g/dL Albumin (3.5-5.2) g/dL Globulin (1.3-4.6) g/dL Urine Color Dark yellow (Yellow) Urine Appearance Clear (CLEAR) Urine pH 5 (5-7) Ur Specific Gravit y 1.025 (1.005-1.030) Urine Protein Neg (Negative) Urine Glucose (UA) 2+ (Normal) Urine Ketones 1+ H (Negative) Urine Blood Neg (Negative) Urine Nitrate Negative (Negative) Urine Bilirubin 1+ H (NEGATIVE) Urine Urobilinogen 1 H (Negative) mg/dL Ur Leukocyte Shyanne ase Negative (Negative) Urine RBC None (0-2) /hpf Urine WBC 0-4 H (0-5) /hpf Ur Squamous Epith Cells 0-4 H (0-5) Urine Bacteria 1+ H (NONE) Urine Mucus 2+ Influenza Type A A g (Negative) Influenza Type B A g (Negative) Imaging Data^: CXR: My impression: Right lower lobe infiltrate, cardiomegaly EKG Data^: EKG 1: Attestation: I personally reviewed and interpreted this EKG as follows: EKG Interpretation Date: 10/14/19 Interpretation: Probable atrial fibrillation with rapid ventricular response at a rate of 119, right bundle branch block, normal axis, no acute ST-T wave changes. EKG 2: Attestation: I personally reviewed and interpreted this EKG as follows: EKG Interpretation Date: 10/14/19 EKG interpretation time: 13:09 Interpretation: Atrial tachycardia with a ventricular rate of 116, right bundle branch block, nonspecific ST and T wave changes.Atrial fibrillation versus Discharge Plan Discharge Patient Disposition: Admitted As Inpatient Clinical Impression: Pneumonia, COPD (chronic obstructive pulmonary disease), CHF (congestive heart failure), Atrial fibrillation with rapid ventricular response Condition: Stable Prescriptions: No Action atorvastatin 20 mg Tablet 10 mg PO DAILY RF: 0 ipratropium-albuterol 0.5 mg-3 mg(2.5 mg base)/3 mL Solution For Nebulization 3 ml INHALATION Q6H PRN (Reason: Shortness Of Breath) RF: 0 aspirin 325 mg Tablet 325 mg PO DAILY RF: 0 levothyroxine 50 mcg Tablet 50 mcg PO DAILY RF: 0 pantoprazole 40 mg Tablet,Delayed Release (Dr/Ec) 40 mg PO DAILY RF: 0 metoprolol tartrate 50 mg Tablet 25 mg PO BID RF: 0 albuterol sulfate 90 mcg/actuation Hfa Aerosol Inhaler 2 puff INHALATION Q6H PRN (Reason: Shortness Of Breath) RF: 0 budesonide-formoterol 80-4.5 mcg/actuation Hfa Aerosol Inhaler 2 puff INHALATION BID RF: 0 cholecalciferol (vitamin D3) [Vitamin D3] 50 mcg (2,000 unit) Capsule 100 mcg PO DAILY RF: 0 doxycycline monohydrate 100 mg Capsule 100 mg PO BID RF: 0 omeprazole 20 mg Capsule,Delayed Release(Dr/Ec) 20 mg PO BID RF: 0 Referrals: Isela Gipson FNP [Primary Care Provider] - 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 of Care Code ED 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
[2019-10-14 12:38] LABS: Basophils % 0.7 %; Eosinophils # 0.1 10^3/uL (0.0-0.8); Eosinophils % 0.8 %; Hematocrit 38.9 % (42.0-52.0); Hemoglobin 11.3 g/dL (11.7-16.6); Lymphocytes # 0.8 10^3/uL (0.8-4.8); Lymphocytes % 13.7 %; Mean Corpuscular Hemoglobin 23.9 pg (28.0-34.0); Mean Corpuscular Volume 82.4 fL (80-94); Mean Platelet Volume 9.6 fL (7.4-10.4); Monocytes # 0.5 10^3/uL (0.2-0.9); Monocytes % 7.8 %; Neutrophils # 4.5 10^3/uL (1.8-7.7); Neutrophils % 76.5 %; Nucleated Red Blood Cells % 0 %; Platelet Count 217 10^3/cmm (130-400); Red Blood Count 4.72 10^6/uL (4.1-5.3); Red Cell Distribution Width 17.1 % (12.1-15.1); White Blood Count 5.9 10^3/uL (4.0-10.0)
[2019-10-14 12:48] LABS: ABG PCO2 32.6 mmHg (35-45); ABG PH Result 7.45 (7.35-7.45); Alveolar-Arterial Oxygen Gradi 45.6 mmHg (5-10); Arterial Blood Gas Hematocrit 33.9 % (42-52); Base Excess ABG -1.1 mmol/L (-2.0-2.0); Blood Gas Allen Test Pos; Blood Gas Operator Identificat amh; Blood Gas Sample Site Radial, left; Blood Gas Sample Type Arterial; Carboxyhemoglobin 1.3 %THgb (0.4-20.1); HCO3 ABG 22.4 mmol/L (22-26); HGB O2 Sat 90.4 % (95-100); Ionized Calcium Level - ABG 1.2 mmol/L (1.1-1.4); Methemoglobin 0.4 % (0.4-1.5); Oxygen Device ROOM AIR; Oxygen Saturation ABG 91.9; PO2 ABG 62.2 mmHg (80.0-100.0); Total Hemoglobin 11.1 g/dL (14-18)
[2019-10-14 12:53] LABS: Troponin(5th) Baseline 25 ng/mL (0-15)
[2019-10-14 13:07] LABS: Lactic Sepsis W/Reflex 1.3 mmol/L (0.5-2.2)
[2019-10-14] MEDS: sodium chloride 0.9% 1,000 ML 100 ML IV (13:23)
[2019-10-14] MEDS: levofloxacin-dextrose 5 % 750 MG/150 ML PREMIX 150 MG IV (13:24)
[2019-10-14 14:12] LABS: Influenza A by IFA Negative (Negative); Influenza B by IFA Negative (Negative)
[2019-10-14 14:14] LABS: Alanine Aminotransferase 13 U/L (0-41); Albumin Level 4.3 g/dL (3.5-5.2); Alkaline Phosphatase 94 IU/L (40-130); Anion Gap 17.3 (5-19); Aspartate Amino Transferase 12 U/L (0-40); Carbon Dioxide 23 mmol/L (22-29); Chloride 103 mmol/L (98-107); Creatinine Clr Calc Pharmacy 73.4576; Globulin 2.3 g/dL (1.3-4.6); Glomerular Filtration Rate 60.8 mL/min (90-130); Glucose 90 mg/dL (65-115); Potassium 4.3 mmol/L (3.5-5.1); Sodium 139 mmol/L (136-145); Total Bilirubin 1.2 mg/dL (0.15-1.2); Total Protein 6.6 g/dL (6.6-8.7)
[2019-10-14 14:54] LABS: Blood Urea Nitrogen 22 mg/dL (8-23); Calcium 9.1 mg/dL (8.5-10.5); Magnesium 2.2 mg/dL (1.7-2.3); Osmolality Calculated 284 mOsm/kg (285-295)
[2019-10-14 14:56] LABS: NT Pro B Type Natriuretic Pept 5253 pg/mL (0-125)
--- NOTE | 2019-10-14 15:09 | P.HP_ITS ---
Providers/Chief Complaint Primary Care Provider: PATO Hernandez Chief Complaint: SOB History of Present Illness Gabino Jones is a 64 year old male that presents to the emergency department with shortness of breath. He reports is been going in the several weeks. He has been treated with steroids, and last treatment was a course of doxycycline. He reports he is coughing. He feels like he has some leg swelling. Sputum is pr oductive of white sputum. He feels chilled on occasion but has not taken his temperature. He denies any significant chest discomfort. He has not had any nausea or vomiting. He cannot remember whether he took his metoprolol this morning. He does not believe his heart rate has been elevated at home. No direct exposure to anybody with COVID that he is aware of. Was checked for COVID September 24 and was negative. Nocturnal dyspnea, orthopnea Medications/Allergies Home Medications Medication Instructions Recorded Confirmed Last Taken Type albuterol sulfate 2 puff INHALATION Q6H PRN 09/25/19 10/14/19 10/14/19 History aspirin 325 mg PO DAILY 09/25/19 10/14/19 10/14/19 History atorvastatin 10 mg PO DAILY 09/25/19 10/14/19 Unknown History budesonide-formoterol 2 puff INHALATION BID 09/25/19 10/14/19 10/14/19 History cholecalciferol (vitamin D3) 100 mcg PO DAILY 09/25/19 10/14/19 10/14/19 History [Vitamin D3] ipratropium-albuterol 3 ml INHALATION Q6H PRN 09/25/19 10/14/19 10/14/19 History levothyroxine 50 mcg PO DAILY 09/25/19 10/14/19 Unknown History metoprolol tartrate 25 mg PO BID 09/25/19 10/14/19 10/14/19 History pantoprazole 40 mg PO DAILY 09/25/19 10/14/19 Unknown History doxycycline monohydrate 100 mg PO BID 10/14/19 10/14/19 10/14/19 History omeprazole 20 mg PO BID 10/14/19 10/14/19 10/14/19 History Allergies Allergy/AdvReac Type Severity Reaction Status Date / Time bupropion [From Wellbutrin] Allergy Unknown Verified 10/14/19 12:22 PFSH Acute PFSH: Medical History (Updated 10/14/19 @ 15:21 by Corwin Martini MD) Anemia Atrial fibrillation COPD (chronic obstructive pulmonary disease) Coronary artery disease GERD (gastroesophageal reflux disease) Hyperlipidemia Hypertension Hypothyroidism Surgical History (Updated 10/14/19 @ 15:13 by Corwin Martini MD) History of coronary artery bypass graft March 2019 [facility] History of knee surgery History of vasectomy Family History (Updated 10/14/19 @ 15:13 by Corwin Martini MD) Other CAD (coronary artery disease) Social History (Updated 10/14/19 @ 15:13 by Corwin Martini MD) Smoking and tobacco status: former smoker Alcohol intake: never Substance/Drug Use: never Vitals/I&O/Wt Last Vital Signs Temp 98.6 F 10/14/19 12:17 Pulse 141 H 10/14/19 14:49 Resp 28 H 10/14/19 14:49 BP 138/105 10/14/19 14:49 Pulse Ox 95 10/14/19 14:49 10/14/19 10/14/19 10/14/19 06:59 14:59 22:59 Intake Total 150 / 150 Balance 150 / 150 Weight last 48 hrs Weight 102.058 kg Physical Exam Narrative: EXAM NARRATIVE: General exam demonstrates an adult white male, reporting shortness of breath but no obvious distress. HEENT: Pupils equally round. Oropharynx clear. Neck is supple no lymphadenopathy or thyromegaly Cardiovascular irregular, irregular with accelerated rate Lungs diminished breath sounds at the bases bilaterally. Coarse breath sounds at the bases bilaterally Abdomen is soft with positive bowel sounds. No obvious organomegaly was deferred Extremities show bilateral edema left greater than right 1-2+. Skin no rash Neuro no focal deficits Data : 10/14/19 12:26 10/14/19 12:26 Micro: Microbiology 10/14/19 12:40 Blood Culture - Preliminary Blood SPECIMEN COLLECTED 10/14/19 12:26 Blood Culture - Preliminary Blood SPECIMEN COLLECTED Other data: pH 7.45, PCO2 32, PO2 62 LFTs normal Initial troponin XX 5 BNP elevated at 5253 Urine without any evidence of obvious infection. Influenza negative. COVID pending and previous negative Chest x-ray shows COPD, increasing consolidation at the bases, postoperative heart, small bilateral effusions. Cannot rule out CHF. EKG demonstrates atrial fibrillation with rapid ventricular rate, borderline left axis deviation, right bundle branch block A&P Assessment and plan (1) Pneumonia: There is been concern that he has failed outpatient treatment for pneumonia. He certainly has had doxycycline and prednisone recently, and did not improve. Sputum culture Repeat Covid 19 testing already in process Status: Acute (2) CHF (congestive heart failure): Initiate Lasix 40 mg IV every 12 hours Check echocardiogram Discontinue IV fluids started in ER Close follow-up of electrolytes Status: Acute (3) COPD exacerbation: Prednisone 40 mg daily Combivent every 4 hours Continue home steroid inhalation Status: Acute (4) Atrial fibrillation: With rapid ventricular rate. Metoprolol 5 mg IV in ER. If does not respond consider Cardizem drip. Continue patient's home metoprolol. Full dose anticoagulation with Lovenox. Patient has past history of atrial fibrillation requiring amiodarone and was given apixaban after discharge in March 2019, when he had bypass surgery. Serial troponins Status: Acute Additional A&P Information History hypertension, continue metoprolol of coronary artery disease Hyperlipidemia, continue statin GERD, continue proton pump inhibitor Hypothyroidism, check TSH History of anemia, appears mild Full code Full admission Lovenox for anticoagulation Attestations Medical Necessity Statement*: Will need greater than 2 midnight stay for evaluation and treatment of acute exacerbation of CHF, atrial fibrillation with rapid ventricular rate Time Spent in Patient Care: Greater than 35 minutes 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 of Care Code Acute Conformal Pad Former for Kevin Arceo Diagnoses Pneumonia J18.9 CHF (congestive heart failure) I50.9 COPD exacerbation J44.1 Atrial fibrillation I48.91
[2019-10-14 15:13] LABS: Bilirubin Urine 1+ (NEGATIVE); Blood Urine Neg (Negative); Glucose Urine UA 2+ (Normal); Ketones Urine 1+ (Negative); Leukocyte Esterase Urine Negative (Negative); Nitrate Urine Negative (Negative); Protein Urine Neg (Negative); Specific Gravity, Urine 1.025 (1.005-1.030); Urine Appearance Clear (CLEAR); Urine Color Dark Yellow (Yellow); Urobilinogen Urine 1 mg/dL (Negative); pH Urine 5 (5-7)
[2019-10-14] MEDS: metoprolol tartrate 1 mg/1 mL SDV 5 mL 5 MG IV (15:18)
[2019-10-14 15:20] LABS: Troponin 5 2HR 22.19 ng/mL (0-15)
[2019-10-14 15:21] LABS: Troponin 5 2HR Delta -2.81 ABS# (0-10)
[2019-10-14 15:22] LABS: Add Urine Culture? No; Bacteria Urine 1+; Mucus Urine 2+; Squamous Epithelial Cell Urine 0-4 (0-5); WBC Urine 0-4 /hpf (0-5)
--- NOTE | 2019-10-14 18:21 | ECG_ITS ---
Measurements Intervals [place] Rate: 116 P: IA: 0 QRS: 20 QRSD: 133 T: 47 QT: 375 QTc: 523 ATRIAL FLUTTER/TACHYCARDIA WITH RAPID VENTRICULAR RESPONSE RIGHT BUNDLE BRANCH BLOCK [120+ ms QRS DURATION, UPRIGHT V1, 40+ ms S IN I/aVL/V4/V5/V6] Compared to ECG 05/27/2019 05:06:02 Sinus rhythm no longer present Electronically Signed On 10-14-2019 20:35:24 CDT by Mathew Sanchez M.D. [email or web address]
[2019-10-14] MEDS: FUROsemide 10 mg/mL SDV 4mL 40 MG IVP (18:40)
--- NOTE | 2019-10-14 19:08 | PC.NURSE ---
Report Received from OSMEL Campbell and care transferred to OSMEL Dunne
--- NOTE | 2019-10-14 19:47 | PC.NURSE ---
PATIENT SITTING ON EDGE OF BED USING URINAL
--- NOTE | 2019-10-14 22:22 | PC.NURSE ---
COVID19 SWAB PREFORMED BY NURSE AND HAND DELIVERED TO LAB
--- NOTE | 2019-10-14 23:25 | PC.NURSE ---
Dr Stewart notified of patient's arrival to ICU. Orders received that patient can eat a cardiac diet now but should be NPO at midnight. Titrate cardizem drip to keep HR 70-90. Reschedule IV lasix dosing to start at 0800 10/15/2019.
[2019-10-14] MEDS: enoxaparin 100 mg/mL Syringe SUBCUT (23:37)
[2019-10-15] VITALS (37 sets, daily range): BP systolic 88–133; BP diastolic 55–83; PULSE 76–115; RESP 14–27; TEMP 35.8–37; O2SAT 2–99
[2019-10-15 00:06] LABS: Thyroid Stimulating Hormone 30.91 uIU/mL (0.27-4.20)
[2019-10-15 04:06] LABS: Hemoglobin 11.2 g/dL (11.7-16.6); Lymphocytes # 0.5 10^3/uL (0.8-4.8); Lymphocytes % 10.9 %; Mean Corpuscular HGB Conc 30.3 g/dL (30.0-36.0); Mean Corpuscular Hemoglobin 24.8 pg (28.0-34.0); Mean Corpuscular Volume 81.9 fL (80-94); Mean Platelet Volume 10.6 fL (7.4-10.4); Monocytes # 0.1 10^3/uL (0.2-0.9); Neutrophils % 86.7 %; Nucleated Red Blood Cells % 0 %; Platelet Count 231 10^3/cmm (130-400); Red Blood Count 4.52 10^6/uL (4.1-5.3); Red Cell Distribution Width 17.2 % (12.1-15.1); White Blood Count 4.6 10^3/uL (4.0-10.0)
[2019-10-15 04:22] LABS: Anion Gap 18.1 (5-19); Blood Urea Nitrogen 28 mg/dL (8-23); Calcium 9.4 mg/dL (8.5-10.5); Carbon Dioxide 22 mmol/L (22-29); Chloride 102 mmol/L (98-107); Creatinine Clr Calc Pharmacy 73.4576; Glomerular Filtration Rate 60.8 mL/min (90-130); Glucose 188 mg/dL (65-115); Osmolality Calculated 288 mOsm/kg (285-295); Potassium 4.1 mmol/L (3.5-5.1); Sodium 138 mmol/L (136-145)
[2019-10-15] MEDS: FUROsemide 10 mg/mL SDV 4mL 40 MG IVP ×2 (08:17→20:11)
[2019-10-15] MEDS: levothyroxine 50 mcg Tablet PO (09:26)
[2019-10-15] MEDS: aspirin 325 mg Tablet PO (09:26)
[2019-10-15] MEDS: atorvastatin 40 mg Tablet 10 MG PO (09:26)
[2019-10-15] MEDS: predniSONE 20 mg Tablet 40 MG PO (09:27)
[2019-10-15] MEDS: metoprolol tartrate 50 mg Tablet PO ×2 (09:27→18:11)
[2019-10-15] MEDS: pantoprazole DR 40 mg Tablet PO (09:27)
--- NOTE | 2019-10-15 10:12 | PM.PN ---
Subjective Subjective: Interval history: Gabino reports he is feeling little bit better. Less short of breath. Less swollen. Not coughing quite as much. Medications: Reviewed: Yes Vitals/I&O/Wt Last Vital Signs Temp 97.6 F 10/15/19 08:00 Pulse 99 10/15/19 09:29 Resp 18 10/15/19 09:27 BP 90/57 10/15/19 08:00 Pulse Ox 96 10/15/19 09:27 10/14/19 10/15/19 10/15/19 22:59 06:59 14:59 Intake Total 42.375 / 192.375 Output Total 400 / 400 350 / 350 Balance -357.625 / -207.625 -350 / -350 Weight last 48 hrs Weight 105.959 kg Weight 102.058 kg Physical Exam Narrative: EXAM NARRATIVE: General exam no apparent distress Cardiovascular irregular, irregular with controlled rate Lungs diminished breath sounds at the bases bilaterally. Coarse breath sounds at the bases bilaterally Abdomen is soft with positive bowel sounds. No obvious organomegaly was deferred Extremities show bilateral trace edema Data : 10/15/19 03:30 10/15/19 03:30 Micro: Microbiology 10/14/19 12:40 Blood Culture - Preliminary Blood SPECIMEN COLLECTED 10/14/19 12:26 Blood Culture - Preliminary Blood SPECIMEN COLLECTED A&P Assessment and plan (1) Pneumonia: There is been concern that he has failed outpatient treatment for pneumonia. He certainly has had doxycycline and prednisone recently, and did not improve. Continue oral Levaquin Await sputum culture Await Covid 19 testing Status: Acute (2) CHF (congestive heart failure): Continue IV Lasix Await echocardiogram Status: Acute (3) COPD exacerbation: Continue prednisone 40 mg daily Combivent every 4 hours Continue home steroid inhalation Status: Acute (4) Atrial fibrillation: Increase metoprolol Wean Cardizem off Transition Lovenox to Eliquis Troponin elevation consistent with type II Status: Acute Additional A&P Information History hypertension, continue metoprolol of coronary artery disease Hyperlipidemia, continue statin GERD, continue proton pump inhibitor Hypothyroidism, such elevated. Increase thyroid hormone History of anemia, appears mild, and stable Full code Eliquis for DVT prophylaxis If Covid 19 negative transfer to [facility] Attestations Medical Necessity Statement*: Needs continued hospitalization for treatment of COPD exacerbation, adjustment of medications for atrial fibrillation with rapid ventricular rate. 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
[2019-10-15 11:17] LABS: Procalcitonin 0.09 ng/mL (0-0.5)
[2019-10-15 12:01] LABS: Coronavirus Lab Test PTC NOT DETECTED
[2019-10-15] MEDS: levofloxacin-dextrose 5 % 750 MG/150 ML PREMIX 100 MG IV (13:05)
--- NOTE | 2019-10-15 13:52 | PC.NURSE ---
1330 Covid 19 test results of Neg returned. Removed patient off of isolation. Notified dr Martini, will write transfer orders. Notified patient.
--- NOTE | 2019-10-15 14:13 | PC.NURSE ---
1415 Transfering pt to [facility] with belongings of 2 phones and 2 chargers, keys and clothes. Pt has no c/o's, transfered via w/c.
[2019-10-15] MEDS: apixaban 5 mg Tablet PO (18:11)
[2019-10-16] VITALS (15 sets, daily range): BP systolic 105–153; BP diastolic 69–81; PULSE 89–97; RESP 16–20; TEMP 36.3–36.7; O2SAT 91–99
--- NOTE | 2019-10-16 06:00 | USCV_ITS ---
Gabino Jones Age: 64 Gender: M : 1955 Exam Date: 10/16/2019 06:13 Ordering Phys: Corwin Martini MD Technologist: Aria Wellington Exam Location: [facility] [place] Indication: CHF BP: 108 / 71 HR: 93 Rhythm: Technical Quality: Adequate MEASUREMENTS (Male / Female) Normal Values 2D ECHO LV Diastolic Diameter PLAX 4.7 cm 4.2 - 5.9 / 3.9 - 5.3 cm LV Systolic Diameter PLAX 3.7 cm LV Chamber Size 4.1 cm IVS Diastolic Thickness 1.3 cm 0.6 - 1.0 / 0.6 - 0.9 cm IVS Systolic Thickness 2.3 cm LVPW Diastolic Thickness 1.4 cm 0.6 - 1.0 / 0.6 - 0.9 cm LVPW Systolic Thickness 2.2 cm RV Chamber Size 4.5 cm LVOT Diameter 2.0 cm LV Ejection Fraction 2D Teich 43.7 % LV Ejection Fraction MOD 2C 23.3 % LV Ejection Fraction 2C AL 25.5 % LA Diameter 5.1 cm LA Width 3.8 cm LA Height 5.0 cm RA Width 4.5 cm RA Height 4.9 cm Aorta at Sinotubular Diameter 3.6 cm M-MODE LV Diastolic Diameter MM 5.2 cm 4.2 - 5.9 / 3.9 - 5.3 cm LV Systolic Diameter MM 3.9 cm LV Ejection Fraction MM Teich 49.1 % IVS Diastolic Thickness MM 1.4 cm 0.6 - 1.0 / 0.6 - 0.9 cm IVS Systolic Thickness MM 1.8 cm LVPW Diastolic Thickness MM 1.6 cm 0.6 - 1.0 / 0.6 - 0.9 cm LVPW Systolic Thickness MM 2.4 cm RV Diastolic Diameter MM 2.5 cm Aortic Annulus Diameter 4.0 cm LA Ao Ratio MM 1.3 MV E Point Septal Separation 0.6 cm DOPPLER AV Peak Velocity 87.0 cm/s LVOT Peak Velocity 65.0 cm/s AV Area Cont Eq vti 2.6 cm squared AV Area Cont Eq pk 2.3 cm squared MV Area PHT 5.8 cm squared MV E' Velocity 7.0 cm/s Mitral E to MV E' Ratio 10.4 Mitral E to LV E' Lateral Ratio 12.6 Mitral E to LV E' Septal Ratio 9.0 TR Peak Velocity 238.5 cm/s TR Peak Gradient 22.8 mmHg TR Mean Velocity 180.9 cm/s TR Mean Gradient 14.3 mmHg TR Velocity Time Integral 71.6 cm TV Peak E Velocity 73.0 cm/s PV Peak Velocity 51.0 cm/s RV Acceleration Time 0.2 s RV Ejection Time 0.4 s RV AcT/ET 0.5 FINDINGS Left Ventricle Normal left ventricular cavity size and systolic function. Left ventricular ejection fraction is estimated at 55 %. No diagnostic regional wall motion abnormalities. Grade II diastolic dysfunction, moderately elevated filling pressures. Abnormal septal motion consistent with conduction abnormality. Right Ventricle Normal right ventricular size and systolic function. Right ventricular systolic pressure 34 mmHg. Prominent moderator band. Right Atrium Mildly increased right atrial size. Right atrial pressure estimated at 8 mmHg. Left Atrium Mildly increased left atrial size. Mitral Valve Mild mitral annular calcification. Structurally normal mitral valve. No mitral valve stenosis. Trace mitral valve regurgitation. Aortic Valve Mildly thickened trileaflet aortic valve. No aortic valve stenosis. No aortic valve regurgitation. Tricuspid Valve Structurally normal tricuspid valve. No tricuspid valve stenosis. Mild to moderate tricuspid valve regurgitation. Pulmonic Valve Pulmonic valve not well visualized. No pulmonary valve stenosis. Pericardium No pericardial effusion. Aorta Normal-sized aortic root. CONCLUSIONS 1. Normal left ventricular cavity size and systolic function. Left ventricular ejection fraction is estimated at 55 %. No diagnostic regional wall motion abnormalities. Grade II diastolic dysfunction, moderately elevated filling pressures. 2. Normal right ventricular size and systolic function. 3. Mild to moderate tricuspid valve regurgitation. 4. Pulmonary artery pressure estimated at 34 mmHg. 5. When compared to previous echocardiogram dated 03/21/2019, left ventricle systolic function seems to have slightly improved. Fatou Bruce MD (Electronically Signed) Final Date: 16 Oct 2019 12:52 S
--- NOTE | 2019-10-16 06:26 | PC.NURSE ---
US at bedside
[2019-10-16 06:33] LABS: Basophils % 0.1 %; Hematocrit 35.7 % (42.0-52.0); Hemoglobin 10.5 g/dL (11.7-16.6); Lymphocytes # 0.9 10^3/uL (0.8-4.8); Lymphocytes % 9.4 %; Mean Corpuscular HGB Conc 29.4 g/dL (30.0-36.0); Mean Corpuscular Volume 81.7 fL (80-94); Mean Platelet Volume 10.1 fL (7.4-10.4); Monocytes # 0.6 10^3/uL (0.2-0.9); Monocytes % 6.4 %; Neutrophils # 8.1 10^3/uL (1.8-7.7); Neutrophils % 83.8 %; Nucleated Red Blood Cells % 0 %; Platelet Count 250 10^3/cmm (130-400); Red Blood Count 4.37 10^6/uL (4.1-5.3); Red Cell Distribution Width 17.4 % (12.1-15.1); White Blood Count 9.6 10^3/uL (4.0-10.0)
[2019-10-16 06:52] LABS: Blood Urea Nitrogen 33 mg/dL (8-23); Calcium 9.5 mg/dL (8.5-10.5); Carbon Dioxide 24 mmol/L (22-29); Chloride 101 mmol/L (98-107); Glomerular Filtration Rate 50.9 mL/min (90-130); Glucose 144 mg/dL (65-115); Osmolality Calculated 286 mOsm/kg (285-295); Sodium 138 mmol/L (136-145)
[2019-10-16] MEDS: FUROsemide 10 mg/mL SDV 4mL 40 MG IVP (07:48)
[2019-10-16] MEDS: predniSONE 20 mg Tablet 40 MG PO (09:30)
[2019-10-16] MEDS: pantoprazole DR 40 mg Tablet PO (09:30)
[2019-10-16] MEDS: atorvastatin 40 mg Tablet 10 MG PO (09:30)
[2019-10-16] MEDS: apixaban 5 mg Tablet PO (09:30)
[2019-10-16] MEDS: aspirin 325 mg Tablet PO (09:31)
[2019-10-16] MEDS: levothyroxine 150 mcg Tablet 75 MCG PO (09:31)
[2019-10-16] MEDS: metoprolol tartrate 50 mg Tablet PO (09:31)
--- NOTE | 2019-10-16 13:05 | PM.DCS ---
Discharge Providers Date of Admission: 10/14/19 14:26 Date of Discharge: October 16, 2019 Attending Provider at Admission: Bina Martini MD Attending Provider at Discharge: Corwin Martini MD Primary Care Provider: PATO Hernandez Diagnoses at Discharge Discharge Diagnosis (1) Pneumonia: Status: Acute Problem details: Improved. Will discharge on Levaquin for 7 days (2) CHF (congestive heart failure): Status: Acute Problem details: Compensated. Lasix 40 mg a day, following but with cardiology 2 weeks (3) COPD exacerbation: Status: Acute Problem details: Improved (4) Atrial fibrillation: Status: Acute Problem details: Metoprolol increased Reason for Visit Reason for Visit: Reason For Visit: SOB Hospital Course Hospital Course: Gabino is a 64-year-old white male that presented with swelling, shortness of breath, concern of failing outpatient treatment for pneumonia, atrial fibrillation with rapid ventricular rate. He was placed on IV antibiotics consisting of Levaquin. BNP was found to be elevated and with his lower extremity swelling diuresis was initiated. Diltiazem started for atrial fibrillation with rapid ventricular rate echocardiogram was obtained demonstrated an EF of 55%. Troponin was slightly elevated but he had no chest discomfort or concerns of acute myocardial infarction. Secondary to some wheezing he also received prednisone for COPD exacerbation. During his hospital stay he was ruled out for Covid 19. He gradually improved during his hospital stay, and reported he was feeling quite a lot better by the end on October 15. At that time a home O2 evaluation was performed which demonstrated no need for oxygen at this time. Heart rate was less than 100, controlled on metoprolol dosing that was increased to 50 mg twice daily. Physical Exam Narrative: EXAM NARRATIVE: General exam no apparent distress Cardiovascular irregular, irregular with controlled rate Lungs improved aeration. Faint expiratory wheeze Abdomen is soft with positive bowel sounds Extremities only trace edema Discharge Data Data Completed and Pending: Completed Studies During Hospitalization Category Date Time Status XR chest 1V josue ble [id number] Stat Exams 10/14/19 12:20 Completed CV echo complete* [id number] Routine Ultrasound 10/16/19 06:00 Taken Pending at discharge Category Date Time Status Basic Metabolic P conor AM LABS Lab 10/17/19 04:00 Ordered Blood Culture Sta t Lab 10/14/19 12:40 Results Complete Blood Co unt w/Auto AM LABS Lab 10/17/19 04:00 Ordered Sputum Culture an d Gram Stain [facility] ne Lab 10/15/19 05:57 Results Labs from last 24 hours 10/16/19 10/16/19 06:13 06:13 WBC 9.6 RBC 4.37 Hgb 10.5 L Hct 35.7 L MCV 81.7 MCH 24.0 L MCHC 29.4 L RDW 17.4 H Plt Count 250 MPV 10.1 Neut % (Auto) 83.8 Lymph % (Auto) 9.4 [place] % (Auto) 6.4 Eos % (Auto) 0.0 Baso % (Auto) 0.1 Neut # (Auto) 8.1 H Lymph # (Auto) 0.9 [place] # (Auto) 0.6 Eos # (Auto) 0.0 Baso # (Auto) 0.0 Nucleated RBC % (a uto) 0 Nucleated RBCs # 0.0 Sodium 138 Potassium 4.0 Chloride 101 Carbon Dioxide 24 Anion Gap 17.0 BUN 33 H Creatinine 1.4 H GFR Calculation 50.9 L Glucose 144 H Calculated Osmolal ity 286 Calcium 9.5 Vitals: Last Vital Signs Temp 97.6 F 10/16/19 11:39 Pulse 97 10/16/19 11:39 Resp 17 10/16/19 11:39 BP 116/72 10/16/19 11:39 Pulse Ox 94 10/16/19 11:39 Discharge Plan Discharge Patient Disposition: Home Health Service Condition: Stable Prescriptions: New prednisone 20 mg Tablet 40 mg PO DAILY Qty: 6 RF: 0 metoprolol tartrate 50 mg Tablet 50 mg PO BID Qty: 60 RF: 0 Eliquis 5 mg Tablet 5 mg PO BID Qty: 60 RF: 0 furosemide [Lasix] 40 mg tablet 40 mg PO DAILY Qty: 30 RF: 0 potassium chloride 10 mEq tablet extended release 10 meq PO DAILY Qty: 30 RF: 0 levothyroxine 150 mcg Tablet 75 mcg PO DAILY Qty: 30 RF: 0 levofloxacin [Levaquin] 750 mg tablet 750 mg PO DAILY 7 Days Qty: 7 RF: 0 Continued atorvastatin 20 mg Tablet 10 mg PO DAILY RF: 0 ipratropium-albuterol 0.5 mg-3 mg(2.5 mg base)/3 mL Solution For Nebulization 3 ml INHALATION Q6H PRN (Reason: Shortness Of Breath) RF: 0 aspirin 325 mg Tablet 325 mg PO DAILY RF: 0 pantoprazole 40 mg Tablet,Delayed Release (Dr/Ec) 40 mg PO DAILY RF: 0 albuterol sulfate 90 mcg/actuation Hfa Aerosol Inhaler 2 puff INHALATION Q6H PRN (Reason: Shortness Of Breath) RF: 0 budesonide-formoterol 80-4.5 mcg/actuation Hfa Aerosol Inhaler 2 puff INHALATION BID RF: 0 cholecalciferol (vitamin D3) [Vitamin D3] 50 mcg (2,000 unit) Capsule 100 mcg PO DAILY RF: 0 omeprazole 20 mg Capsule,Delayed Release(Dr/Ec) 20 mg PO BID RF: 0 Discontinued levothyroxine 50 mcg Tablet 50 mcg PO DAILY RF: 0 metoprolol tartrate 50 mg Tablet 25 mg PO BID RF: 0 doxycycline monohydrate 100 mg Capsule 100 mg PO BID RF: 0 Discharge Orders: Discharge Order (Routine); Ordered 10/16/19 Ordered By: Corwin Martini Referrals: Isela Gipson FNP [Primary Care Provider] - 4-7 days Discharge Diet: Cardiac Discharge Activity: Increase activity as tolerated Activity Restrictions/Additional Instructions: Follow-up with your primary care provider Arrange follow-up with [facility] in 2 weeks Consider repeat chest x-ray through primary care provider 3 weeks Discharge Attestations Time Spent in Discharge Care*: greater than 30 min Quality Metrics Clinical Quality Measures During this hospital stay, did patient experience: None 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 of Care Code Acute Clinical Research Manager for g Fwd Diagnoses Pneumonia J18.9 CHF (congestive heart failure) I50.9 COPD exacerbation J44.1 Atrial fibrillation I48.91
== END 2019-10-16 17:30 | disposition home health service (06) | DRG 291 ==
LOC: ER 15:26 → ICU 20:52 → MEDSURG 10-15 14:18 → CSU 10-15 16:48 → MEDSURG 10-15 22:33
PROVIDERS: Emergency Medicine; Admitting Provider Family Medicine; Family Provider Nurse Practitioner; PCP Nurse Practitioner; Visit Provider Internal Medicine
DX: I11.0 Hypertensive heart disease with heart failure (principal); J18.9 Pneumonia, unspecified organism; J44.1 Chronic obstructive pulmonary disease with (acute) exacerbation; J44.0 Chronic obstructive pulmonary disease with (acute) lower respiratory infection; I48.91 Unspecified atrial fibrillation; Z20.828 Contact with and (suspected) exposure to other viral communicable diseases; Z79.82 Long term (current) use of aspirin; I50.9 Heart failure, unspecified; K21.9 Gastro-esophageal reflux disease without esophagitis; E03.9 Hypothyroidism, unspecified; E78.5 Hyperlipidemia, unspecified; I25.10 Atherosclerotic heart disease of native coronary artery without angina pectoris; D64.9 Anemia, unspecified; Z95.1 Presence of aortocoronary bypass graft; Z87.891 Personal history of nicotine dependence
CPT/HCPCS: 12345; 36415; 36600; 71045; 80048; 80051; 80053; 81001; 82810; 83605; 83735; 83880; 83986; 84145; 84443; 84484; 85025; 87040; 87070; 87205; 87635; 87804; 93005; 93306; 94640; 96372; 96375; 99284; J1650; J1940; J1956; J2930; J3490; J3535; J7030; J7512

== ENCOUNTER 2020-01-19 11:32 | Inpatient (IN) | payer OTHER, MEDICARE, SELFPAY ==
[2020-01-19] VITALS (12 sets, daily range): BP systolic 107–129; BP diastolic 69–94; PULSE 90–116; RESP 16–26; TEMP 36.6; O2SAT 93–98; BMI 33.5
--- NOTE | 2020-01-19 11:34 | XR_ITS ---
WS: [id number] EXAM: AP CHEST: PORTABLE UPRIGHT DATE OF EXAM: 01/19/2020, 1142 hours COMPARISON: Chest x-rays from 10/14/2019, 05/27/2019 and 03/16/2019 HISTORY: Patient is 64 years old with dyspnea. FINDINGS: The cardiac silhouette is enlarged but similar. The mediastinal contours are similar. Postop suh otomy changes from prior surgery noted. The pulmonary vascularity is normal. Chronic lung changes are demonstrated. There is extensive parenchymal loss in the upper lung zones again demonstrated. Coa rse interstitial markings are demonstrated within both lung bases most consistent with fibrosis. Vast majority appear to be chronic fibrotic change. There is actually less infiltrate and pleural thicken ing/pleural blunting right costophrenic angle. No enlarging area of consolidating infiltrate is seen. No new effusion or pneumothorax. XR/XR chest 1V portable [id number] IMPRESSION: Chronic lung changes with underlying pulmonary fibrosis felt to be present. Act ually decreased infiltrate right lung base and decreased pleural fluid pleural thickening right costophrenic angle since October 2019. No new consolidating pneumo lashae or extensive progression in interstitial infiltrate demonstrated. With this degree of chronic change a subtle acute superimposed interstitial pneumonitis cannot be fully excluded.
--- NOTE | 2020-01-19 11:35 | ECG_ITS ---
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 Measurements Intervals [place] Rate: 90 P: WI: -1 QRS: 16 QRSD: 129 T: 23 QT: 407 QTc: 499 Interpretive Statements ATRIAL FLUTTER RIGHT BUNDLE BRANCH BLOCK [120+ ms QRS DURATION, UPRIGHT V1, 40+ ms S IN I/aVL/V4/V5/V6] Compared to ECG 10/14/2019 13:09:25 No significant changes Electronically Signed On 01-19-2020 13:24:46 CDT by Favio Ferguson M.D. [id number]
--- NOTE | 2020-01-19 11:39 | CT_ITS ---
WS: [id number] EXAM: CT OF THE ABDOMEN AND PELVIS WITH CONTRAST DATE OF EXAMINATION: 01/19/2020, 1322 hours COMPARISON: CT of the abdomen and pelvis from 12/11/2018. HISTORY: 64 years old with diffuse abdominal pain with nausea. TECHNIQUE: Transaxial computed tomography images obtained through the abdomen and pelvis utilizing 95 mL of Omni paque 300 IV contrast with images acquired in the portal and delayed phase. Images viewed in multiple windows with reconstructions. DLP: 1509.[address] scans at [facility] use at least one of these dose optimization techniques: automat ed exposure control; mA and/or kV adjustment per patient size (includes targeted exams where dose is matched to clinical indication); or iterative reconstruction. FINDINGS: Chronic changes are seen in both lung bases with honeycombing and fibrosis. There has been progressio n in the amount of thickening in the area of honeycombing with some pleural thickening and slight ple ural fluid suggesting possibly an acute pneumonitis. Postop sternotomy changes from prior surgery. He art size is considered minimally enlarged. The aorta is normal in caliber with peripheral calcified p laque. Lumen opacifies normally. The liver is normal in attenuation and enhancement.. Low-density lesions are felt to represent cysts. The gallbladder is moderately distended. Thickening of the wall with pericholecystic inflammatory mario alberto nges are seen felt to represent acute cholecystitis. No biliary dilatation is seen. The portal vein i s patent. Spleen is normal in size and enhancement. Pancreas is normal in appearance. Adrenal glands are normal in appearance. Both kidneys enhance normally. No solid mass lesion. Small nonobstructing calcifications are seen wit hin both kidneys. No obstructive uropathy or ureteral stones are identified. Retrocardiac hernia demonstrated. Stomach otherwise normal in appearance. Small bowel is normal in ca liber. Colon is normal in caliber. Normal appendix in the right false pelvis region. There are findings of a small amount of free fluid interposed between the anterior lobe of the liver and the right hemidiaphragm. Several low-density lesions within the liver felt to represent cysts. Small amount of edema within the josue hepatis region seen. There is also small amount of fluid in th e right false pelvis and the deep pelvis. No intraperitoneal or retroperitoneal adenopathy or mass is identified. Small amount induration around the umbilicus suggesting possible cellulite. Tiny umbilical hernia con taining fat. No large inguinal hernia containing fat. Prostate is minimally enlarged. Seminal vesicles normal in appearance. There is a intramuscular lipoma within the left tensor fascia ruperto muscle. Bladder is normally distended. Scattered changes of arthritis are seen in the spine. Most prominent L5-S1 level. Air in the disc spa ce as well as in the canal at the L5-S1 level. There are findings of bilateral L5-S1 neural foraminal stenosis. CT/CT abdomen pelvis w con* [id number] IMPRESSION: Imaging findings felt to represent acute cholecystitis. Slight increased interstitial markings as well as slight pleural fluid in both lung bases suggesting a possible acute pneumonitis. Other nonemergent findings as described in the body of the report.
[2020-01-19 11:50] LABS: Basophils % 0.8 %; Eosinophils # 0.1 10^3/uL (0.0-0.8); Eosinophils % 1.9 %; Hematocrit 38.4 % (42.0-52.0); Hemoglobin 10.5 g/dL (11.7-16.6); Lymphocytes % 19.5 %; Mean Corpuscular HGB Conc 27.3 g/dL (30.0-36.0); Mean Corpuscular Volume 76.8 fL (80-94); Mean Platelet Volume 9.4 fL (7.4-10.4); Monocytes # 0.6 10^3/uL (0.2-0.9); Monocytes % 12.3 %; Neutrophils # 3.41 10^3/uL (1.8-7.7); Neutrophils % 65.3 %; Nucleated Red Blood Cells % 0 %; Platelet Count 195 10^3/cmm (130-400); Red Cell Distribution Width 18.6 % (12.1-15.1); White Blood Count 5.2 10^3/uL (4.0-10.0)
--- NOTE | 2020-01-19 12:06 | ED_ITS ---
HPI - SOB/Dyspnea General: Chief Complaint: Shortness of Breath/Dyspnea Stated Complaint: SHORTNESS OF BREATH Time Seen by Provider: 01/19/20 11:34 Source: patient Mode of arrival: ambulatory Limitations: no limitations History of Present Illness: HPI Narrative: Mr. Jones is a nice 64-year-old male who comes in complaining of shortness of breath. He also has a complaint of abdominal pain. In regards to shortness of breath he states he has mild worsening of his shortness of breath with exertion. He does not report any chest pain. He denies any worsening of his cough just more wheezing than normal. Patient also says he has a sore spot on his abdomen. He is on Eliquis and has a bruise noted to his upper abdomen. He states he does not remember this being injured but nonetheless has pain in this area. Exertion makes his shortness of breath worse nothing makes his abdominal pain worse. Patient denies any associated nausea or vomiting, he has no urinary symptoms, he denies any other complaints. Patient was sent here from the [place] and he was there just to be seen as an outpatient for lab work he did not plan on coming to the ER today. [facility] Associated symptoms: Reports abdominal pain; Deny chest congestion, chest pain, diaphoresis, dizziness, extremity pain, fever(s), hemoptysis, lightheadedness, nausea, orthopnea, palpitations, syncope or vomiting Review of Systems Const: Denies: fever(s), chills, body aches, fatigue, malaise or diaphoresis Eyes: Denies: change in vision, blurry vision, photophobia, eye discomfort, eye discharge or eye redness ENMT: Denies: throat pain, odynophagia, hoarseness, swelling of lips/tongue, ear or mastoid pain, ear discharge, change in hearing or nasal discharge Card: Denies: chest pain, palpitations, irregular heart rhythm, edema, lightheadedness, syncope, pre-syncope, dyspnea on exertion or orthopnea Resp: Reports: dyspnea and wheezing; Denies: productive cough, non-productive cough, hemoptysis or chest congestion GI: Reports: abdominal pain; Denies: nausea, vomiting, hematemesis, coffee ground emesis, heartburn, diarrhea, constipation, GI cramping, hematochezia or melena : Denies: flank pain, dysuria, urinary frequency, urinary urgency or hematuria Musc: Denies: neck pain, back pain, extremity pain, extremity swelling, joint pain, joint swelling, joint redness, joint warmth or joint stiffness Skin/Breast: Denies: rash, pruritus, erythema or skin tenderness Neuro: Denies: headache(s), numbness in extremities, weakness in extremities, sensory changes, lack of coordination, difficulty walking, dizziness, vertigo, confusion, Slurred speech present or seizure-like activity Chavez/Lymph: Denies: easy bruising, easy bleeding, petechiae, purpura or enlarged lymph nodes All/Imm: Denies: urticaria, throat swelling, tongue swelling, facial swelling or acute wheezing PFSH ED PFSH: Medical History Anemia Atrial fibrillation Metoprolol increased CHF (congestive heart failure) Last echocardiogram normal EF, grade 2/4 diastolic dysfunction October 2019 COPD (chronic obstructive pulmonary disease) Coronary artery disease GERD (gastroesophageal reflux disease) Hyperlipidemia Hypertension Hypothyroidism Surgical History History of coronary artery bypass graft March 2019 [facility] History of knee surgery History of vasectomy Family History Other CAD (coronary artery disease) Social History Smoking and tobacco status: former smoker Alcohol intake: never Physical Exam Const: COMMON NORMALS: no acute distress, patient oriented x3, no limitations, healthy appearing and well nourished GENERAL APPEARANCE: cooperative, well kempt and well developed HENMT: COMMON NORMALS: normocephalic, atraumatic, external ears normal, EAC's normal and Normal external nose present HEAD & SCALP: normal to inspection, normocephalic and atraumatic FACE & SINUS: normal facial exam and face symmetric NOSE: Normal external nose present and Normal nares present EXTERNAL EAR: Yes external ears normal EXTERNAL AUDITORY CANAL: EAC's normal MOUTH: Normal oral and palatal mucosa present, lip normal and tongue normal Eye: COMMON NORMALS: Equal, round and reactive pupils present and conjunctivae normal GENERAL EYE: appearance normal, both eyes and all related structures ALIGNMENT: Yes alignment normal PERIORBITAL: periorbital findings normal EYELID: eyelids normal CONJUNCTIVA: Yes conjunctivae normal SCLERA: sclerae normal PUPIL: Yes Equal, round and reactive pupils present Neck/C-Spine: COMMON NORMALS: full ROM, no lymphadenopathy, supple, no meningeal signs and no JVD GENERAL: Yes normal visual inspection and Yes trachea midline Chest: COMMONS NORMALS: normal inspection of the chest and normal palpation of entire chest wall Resp: COMMON NORMALS: normal respiratory effort, No retractions, No use of accessory muscles and clear to auscultation bilaterally EFFORT & INSPECTION: Yes able to speak in complete sentences and Yes symmetric chest movement AUSCULTATION: clear to auscultation bilaterally, no crackles, rales, no rhonchi and wheezes (Mild throughout) Cardio: COMMON NORMALS: no JVD, regular rate, regular rhythm, S1 normal heart sound present and S2 normal heart sound present RATE: regular rate RHYTHM: regular rhythm HEART SOUNDS: S1 normal heart sound present, S2 normal heart sound present, no click, no gallops, no murmurs, no rubs and abnormal split S2 GI: COMMON NORMALS: Soft to palpation and No hepatosplenomegaly present PALPATION: Yes Soft to palpation, No Tenderness to palpation present (GI), No Guarding due to palpation present (GI), No Rigid due to palpation, Yes No hepatosplenomegaly present, No Hernia present, No Palpable mass present, No Pulsatile mass present and Yes Other GI palpation findings present (Bruise noted to anterior abdominal wall) : COMMON NORMALS: Yes no CVA tenderness BLADDER/KIDNEY EXAM: Yes no CVA tenderness Back/Pelvis: COMMON NORMALS: no CVA tenderness, thoracic and lumbar spine normal to inspection, no thoracic nor lumbar tenderness and thoraco-lumbar ROM normal Extremity: COMMON NORMALS: normal to inspection, full ROM, capillary refill normal, no joint enlargement, no clubbing, cyanosis or edema and no calf tenderness Neuro: COMMON NORMALS: patient oriented x3, CN's II-XII intact bilaterally, moves all extremities, no focal motor deficits and no sensory deficits noted MENINGEAL SIGNS: Yes no meningeal signs SPEECH: speech normal Psych: COMMON NORMALS: mental status grossly normal, Normal thought process present, cooperative, normal affect, speech normal and activity/motor behavior normal APPEARANCE: Yes well kempt SPEECH: Yes normal speech THOUGHT PROCESS: Normal thought process present Skin: COMMON NORMALS: no rashes or lesions noted, turgor normal, no jaundice, no petechiae and no mottling GENERAL SKIN EXAM: no rashes or lesions noted and turgor normal Course Vital Signs: Vital signs: Vital Signs Temperature 97.8 F 01/19/20 11:33 Pulse Rate 95 01/19/20 17:00 Respiratory Rate 23 H 01/19/20 17:00 Blood Pressure 127/81 01/19/20 16:00 Pulse Oximetry 98 01/19/20 17:00 MDM - SOB/Dyspnea MDM Narrative: Medical decision making narrative: The patient is rather difficult to determine whether he is gallbladder disease is from heart failure or is truly acute cholecystitis. I have reviewed the case in full with Dr. Martini he will come to see the patient. He will consult surgery if he feels necessary. Lab Data: Attestation: I reviewed the patient's lab results. Labs: Lab Results 01/19/20 01/19/20 01/19/20 Range/Units 11:40 11:40 11:40 WBC 5.2 (4.0-10.0) 10^3/ uL RBC 5.00 (4.1-5.3) 10^6/u L Hgb 10.5 L (11.7-16.6) g/dL Hct 38.4 L (42.0-52.0) % MCV 76.8 L (80-94) fL MCH 21.0 L (28.0-34.0) pg MCHC 27.3 L (30.0-36.0) g/dL RDW 18.6 H (12.1-15.1) % Plt Count 195 (130-400) 10^3/c mm MPV 9.4 (7.4-10.4) fL Neut % (Auto) 65.3 % Lymph % (Auto) 19.5 % [place] % (Auto) 12.3 % Eos % (Auto) 1.9 % Baso % (Auto) 0.8 % Neut # (Auto) 3.41 (1.8-7.7) 10^3/u L Lymph # (Auto) 1.0 (0.8-4.8) 10^3/u L [place] # (Auto) 0.6 (0.2-0.9) 10^3/u L Eos # (Auto) 0.1 (0.0-0.8) 10^3/u L Baso # (Auto) 0.0 (0.0-0.1) 10^3/u L Nucleated RBC % (a uto) 0 % Nucleated RBCs # 0.0 /100WBC PT 18.60 H (12.1-14.9) SECO NDS INR 1.50 H (0.8-1.2) Specimen Type Sample Site ABG pH (7.35-7.45) ABG pCO2 (35-45) mmHg ABG pO2 (80.0-100.0) mmH g ABG HCO3 (22-26) mmol/L ABG O2 Saturation ABG Base Excess (-2.0-2.0) mmol/ L Derek Test A-a O2 Gradient (5-10) mmHg Hematocrit (42-52) % Hgb O2 Saturation (95-100) % Carboxyhemoglobin (0.4-20.1) %THgb Methemoglobin (0.4-1.5) % Total Hemoglobin (14-18) g/dL Ionized Calcium (1.1-1.4) mmol/L O2 Delivery Device FiO2 % Can Closing Machine Operator ID Sodium 138 (136-145) mmol/L Potassium 4.8 (3.5-5.1) mmol/L Chloride 104 (98-107) mmol/L Carbon Dioxide 25 (22-29) mmol/L Anion Gap 13.8 (5-19) BUN 20 (8-23) mg/dL Creatinine 1.1 (0.7-1.2) mg/dL GFR Calculation 67.2 L (90-130) mL/min Glucose 116 H (65-115) mg/dL Calculated Osmolal ity 284 L (285-295) mOsm/k g Calcium 8.8 (8.5-10.5) mg/dL Magnesium 2.2 (1.7-2.3) mg/dL Total Bilirubin 1.3 H (0.15-1.2) mg/dL AST 19 (0-40) U/L ALT 15 (0-41) U/L Alkaline Phosphata se 135 H (40-130) IU/L Troponin T Baselin e (0-15) ng/L Troponin T 120 Min [place] (0-15) ng/L Delta Troponin T (0-10) ABS# NT-Pro-B Natriuret Pep 3933 H (0-125) pg/mL Total Protein 6.9 (6.6-8.7) g/dL Albumin 4.1 (3.5-5.2) g/dL Globulin 2.8 (1.3-4.6) g/dL Lipase 26 (13-60) U/L TSH (0.27-4.20) uIU/ mL SARS-CoV-2 Ag (Rap id) (Negative) 01/19/20 01/19/20 01/19/20 Range/Units 11:40 11:40 12:11 WBC (4.0-10.0) 10^3/ uL RBC (4.1-5.3) 10^6/u L Hgb (11.7-16.6) g/dL Hct (42.0-52.0) % MCV (80-94) fL MCH (28.0-34.0) pg MCHC (30.0-36.0) g/dL RDW (12.1-15.1) % Plt Count (130-400) 10^3/c mm MPV (7.4-10.4) fL Neut % (Auto) % Lymph % (Auto) % [place] % (Auto) % Eos % (Auto) % Baso % (Auto) % Neut # (Auto) (1.8-7.7) 10^3/u L Lymph # (Auto) (0.8-4.8) 10^3/u L [place] # (Auto) (0.2-0.9) 10^3/u L Eos # (Auto) (0.0-0.8) 10^3/u L Baso # (Auto) (0.0-0.1) 10^3/u L Nucleated RBC % (a uto) % Nucleated RBCs # /100WBC PT (12.1-14.9) SECO NDS INR (0.8-1.2) Specimen Type Arterial Sample Site Radial, left ABG pH 7.43 (7.35-7.45) ABG pCO2 34.9 L (35-45) mmHg ABG pO2 66.8 L (80.0-100.0) mmH g ABG HCO3 22.9 (22-26) mmol/L ABG O2 Saturation 93.3 ABG Base Excess -1.1 (-2.0-2.0) mmol/ L Derek Test Pos A-a O2 Gradient 5.1 (5-10) mmHg Hematocrit 32.4 L (42-52) % Hgb O2 Saturation 91.3 L (95-100) % Carboxyhemoglobin 1.4 (0.4-20.1) %THgb Methemoglobin 0.8 (0.4-1.5) % Total Hemoglobin 10.6 L (14-18) g/dL Ionized Calcium 1.2 (1.1-1.4) mmol/L O2 Delivery Device None FiO2 21.0 % Can Closing Machine Operator ID Ed Sodium 139.0 (136-145) mmol/L Potassium 4.5 (3.5-5.1) mmol/L Chloride (98-107) mmol/L Carbon Dioxide (22-29) mmol/L Anion Gap (5-19) BUN (8-23) mg/dL Creatinine (0.7-1.2) mg/dL GFR Calculation (90-130) mL/min Glucose 111.0 (65-115) mg/dL Calculated Osmolal ity (285-295) mOsm/k g Calcium (8.5-10.5) mg/dL Magnesium (1.7-2.3) mg/dL Total Bilirubin (0.15-1.2) mg/dL AST (0-40) U/L ALT (0-41) U/L Alkaline Phosphata se (40-130) IU/L Troponin T Baselin e 35 H (0-15) ng/L Troponin T 120 Min [place] (0-15) ng/L Delta Troponin T (0-10) ABS# NT-Pro-B Natriuret Pep (0-125) pg/mL Total Protein (6.6-8.7) g/dL Albumin (3.5-5.2) g/dL Globulin (1.3-4.6) g/dL Lipase (13-60) U/L TSH 10.28 H (0.27-4.20) uIU/ mL SARS-CoV-2 Ag (Rap id) (Negative) 01/19/20 01/19/20 Range/Units 13:57 15:36 WBC (4.0-10.0) 10^3/ uL RBC (4.1-5.3) 10^6/u L Hgb (11.7-16.6) g/dL Hct (42.0-52.0) % MCV (80-94) fL MCH (28.0-34.0) pg MCHC (30.0-36.0) g/dL RDW (12.1-15.1) % Plt Count (130-400) 10^3/c mm MPV (7.4-10.4) fL Neut % (Auto) % Lymph % (Auto) % [place] % (Auto) % Eos % (Auto) % Baso % (Auto) % Neut # (Auto) (1.8-7.7) 10^3/u L Lymph # (Auto) (0.8-4.8) 10^3/u L [place] # (Auto) (0.2-0.9) 10^3/u L Eos # (Auto) (0.0-0.8) 10^3/u L Baso # (Auto) (0.0-0.1) 10^3/u L Nucleated RBC % (a uto) % Nucleated RBCs # /100WBC PT (12.1-14.9) SECO NDS INR (0.8-1.2) Specimen Type Sample Site ABG pH (7.35-7.45) ABG pCO2 (35-45) mmHg ABG pO2 (80.0-100.0) mmH g ABG HCO3 (22-26) mmol/L ABG O2 Saturation ABG Base Excess (-2.0-2.0) mmol/ L Derek Test A-a O2 Gradient (5-10) mmHg Hematocrit (42-52) % Hgb O2 Saturation (95-100) % Carboxyhemoglobin (0.4-20.1) %THgb Methemoglobin (0.4-1.5) % Total Hemoglobin (14-18) g/dL Ionized Calcium (1.1-1.4) mmol/L O2 Delivery Device FiO2 % Can Closing Machine Operator ID Sodium (136-145) mmol/L Potassium (3.5-5.1) mmol/L Chloride (98-107) mmol/L Carbon Dioxide (22-29) mmol/L Anion Gap (5-19) BUN (8-23) mg/dL Creatinine (0.7-1.2) mg/dL GFR Calculation (90-130) mL/min Glucose (65-115) mg/dL Calculated Osmolal ity (285-295) mOsm/k g Calcium (8.5-10.5) mg/dL Magnesium (1.7-2.3) mg/dL Total Bilirubin (0.15-1.2) mg/dL AST (0-40) U/L ALT (0-41) U/L Alkaline Phosphata se (40-130) IU/L Troponin T Baselin e (0-15) ng/L Troponin T 120 Min [place] 31.19 H (0-15) ng/L Delta Troponin T -3.81 L (0-10) ABS# NT-Pro-B Natriuret Pep (0-125) pg/mL Total Protein (6.6-8.7) g/dL Albumin (3.5-5.2) g/dL Globulin (1.3-4.6) g/dL Lipase (13-60) U/L TSH (0.27-4.20) uIU/ mL SARS-CoV-2 Ag (Rap id) Negative (Negative) Imaging Data^: CXR: Radiologist's impression: [address] [address] XRay Report Signed Patient: Gabino Jones Unit #: [id number] : 1955 Age/Sex: 64 / M ADM Date: 01/19/20 Loc: ER Room/Bed: Attending Dr: Ordering Provider/Ordering MD: Jina Stinson DO Date of Service: 01/19/20 Procedure(s): XR chest 1V portable [id number] Accession Number(s): [id number] Report Number: [id number] WS: [id number] EXAM: AP CHEST: PORTABLE UPRIGHT DATE OF EXAM: 01/19/2020, 1142 hours COMPARISON: Chest x-rays from 10/14/2019, 05/27/2019 and 03/16/2019 HISTORY: Patient is 64 years old with dyspnea. FINDINGS: The cardiac silhouette is enlarged but similar. The mediastinal contours are similar. Postop sternotomy changes from prior surgery noted. The pulmonary vascularity is normal. Chronic lung changes are demonstrated. There is extensive parenchymal loss in the upper lung zones again demonstrated. Coarse interstitial markings are demonstrated within both lung bases most consistent with fibrosis. Vast majority appear to be chronic fibrotic change. There is actually less infiltrate and pleural thickening/pleural blunting right costophrenic angle. No enlarging area of consolidating infiltrate is seen. No new effusion or pneumothorax. XR/XR chest 1V portable [id number] IMPRESSION: Chronic lung changes with underlying pulmonary fibrosis felt to be present. Actually decreased infiltrate right lung base and decreased pleural fluid pleural thickening right costophrenic angle since October 2019. No new consolidating pneumonia or extensive progression in interstitial infiltrate demonstrated. With this degree of chronic change a subtle acute superimposed interstitial pneumonitis cannot be fully excluded. Dictated By: Osorio Dominguez MD Signed By: Osorio Dominguez MD Signed Date/Time: 01/19/20 1153 DD/ 1150 CT Abd/Pel: Radiologist's impression: [address] [address] [address] Scan Report Signed Patient: Gabino Jones Unit #: [id number] : 1955 Age/Sex: 64 / M ADM Date: 01/19/20 Loc: ER Room/Bed: Attending Dr: Ordering Provider/Ordering MD: Jina Stinson DO Date of Service: 01/19/20 Procedure(s): CT abdomen pelvis w con* [id number] Accession Number(s): [id number] Report Number: [id number] WS: [id number] EXAM: CT OF THE ABDOMEN AND PELVIS WITH CONTRAST DATE OF EXAMINATION: 01/19/2020, 1322 hours COMPARISON: CT of the abdomen and pelvis from 12/11/2018. HISTORY: 64 years old with diffuse abdominal pain with nausea. TECHNIQUE: Transaxial computed tomography images obtained through the abdomen and pelvis utilizing 95 mL of Omnipaque 300 IV contrast with images acquired in the portal and delayed phase. Images viewed in multiple windows with reconstructions. DLP: 1509.[address] scans at [facility] use at least one of these dose optimization techniques: automated exposure control; mA and/or kV adjustment per patient size (includes targeted exams where dose is matched to clinical indication); or iterative reconstruction. FINDINGS: Chronic changes are seen in both lung bases with honeycombing and fibrosis. There has been progression in the amount of thickening in the area of honeycombing with some pleural thickening and slight pleural fluid suggesting possibly an acute pneumonitis. Postop sternotomy changes from prior surgery. Heart size is considered minimally enlarged. The aorta is normal in caliber with peripheral calcified plaque. Lumen opacifies normally. The liver is normal in attenuation and enhancement.. Low-density lesions are felt to represent cysts. The gallbladder is moderately distended. Thickening of the wall with pericholecystic inflammatory changes are seen felt to represent acute cholecystitis. No biliary dilatation is seen. The portal vein is patent. Spleen is normal in size and enhancement. Pancreas is normal in appearance. Adrenal glands are normal in appearance. Both kidneys enhance normally. No solid mass lesion. Small nonobstructing calcifications are seen within both kidneys. No obstructive uropathy or ureteral stones are identified. Retrocardiac hernia demonstrated. Stomach otherwise normal in appearance. Small bowel is normal in caliber. Colon is normal in caliber. Normal appendix in the right false pelvis region. There are findings of a small amount of free fluid interposed between the anterior lobe of the liver and the right hemidiaphragm. Several low-density lesions within the liver felt to represent cysts. Small amount of edema within the josue hepatis region seen. There is also small amount of fluid in the right false pelvis and the deep pelvis. No intraperitoneal or retroperitoneal adenopathy or mass is identified. Small amount induration around the umbilicus suggesting possible cellulite. Tiny umbilical hernia containing fat. No large inguinal hernia containing fat. Prostate is minimally enlarged. Seminal vesicles normal in appearance. There is a intramuscular lipoma within the left tensor fascia ruperto muscle. Bladder is normally distended. Scattered changes of arthritis are seen in the spine. Most prominent L5-S1 level. Air in the disc space as well as in the canal at the L5-S1 level. There are findings of bilateral L5-S1 neural foraminal stenosis. CT/CT abdomen pelvis w con* [id number] IMPRESSION: Imaging findings felt to represent acute cholecystitis. Slight increased interstitial markings as well as slight pleural fluid in both lung bases suggesting a possible acute pneumonitis. Other nonemergent findings as described in the body of the report. Dictated By: Osorio Dominguez MD Signed By: Osorio Dominguez MD Signed Date/Time: 01/19/20 1352 DD/ 1343 EKG Data^: EKG 1: Attestation: I personally reviewed and interpreted this EKG as follows: EKG Interpretation Date: 01/19/20 EKG interpretation time: 11:44 Interpretation: Probable normal sinus rhythm at 90 beats a minute with first- degree AV block. Right bundle branch block. Normal axis. EKG 2: Attestation: I personally reviewed and interpreted this EKG as follows: EKG Interpretation Date: 01/19/20 EKG interpretation time: 13:35 Interpretation: Atrial fibrillation with a rapid ventricular rate at 101 beats a minute, right bundle branch block, nonspecific ST and T wave changes. Discharge Plan Discharge Patient Disposition: Placed in Observation Admit Provider: Corwin Martini Clinical Impression: Acute cholecystitis Acute exacerbation of CHF (congestive heart failure) Qualifiers: Heart failure type: unspecified Qualified Code(s): I50.9 - Heart failure, unspecified Discharge Date/Time: 01/19/20 17:45 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 of Care Code ED Wire Spooler for Chg Fwd Exam Comprehensive
[2020-01-19] MEDS: ipratropium-albuterol 3 mL Neb 9 ML INHALATION (12:16)
[2020-01-19 12:19] LABS: Troponin(5th) Baseline 35 ng/L (0-15)
[2020-01-19 12:22] LABS: ABG PCO2 34.9 mmHg (35-45); ABG PH Result 7.43 (7.35-7.45); Alveolar-Arterial Oxygen Gradi 5.1 mmHg (5-10); Arterial Blood Gas Hematocrit 32.4 % (42-52); Base Excess ABG -1.1 mmol/L (-2.0-2.0); Blood Gas Allen Test Pos; Blood Gas Operator Identificat ED; Blood Gas Sample Site Radial, left; Blood Gas Sample Type Arterial; Carboxyhemoglobin 1.4 %THgb (0.4-20.1); HCO3 ABG 22.9 mmol/L (22-26); HGB O2 Sat 91.3 % (95-100); Ionized Calcium Level - ABG 1.2 mmol/L (1.1-1.4); Methemoglobin 0.8 % (0.4-1.5); Oxygen Saturation ABG 93.3; PO2 ABG 66.8 mmHg (80.0-100.0); Potassium Level - ABG 4.5 mmol/L (3.5-5.0); Total Hemoglobin 10.6 g/dL (14-18)
[2020-01-19 12:28] LABS: Alanine Aminotransferase 15 U/L (0-41); Albumin Level 4.1 g/dL (3.5-5.2); Alkaline Phosphatase 135 IU/L (40-130); Anion Gap 13.8 (5-19); Aspartate Amino Transferase 19 U/L (0-40); Blood Urea Nitrogen 20 mg/dL (8-23); Calcium 8.8 mg/dL (8.5-10.5); Carbon Dioxide 25 mmol/L (22-29); Chloride 104 mmol/L (98-107); Globulin 2.8 g/dL (1.3-4.6); Glomerular Filtration Rate 67.2 mL/min (90-130); Glucose 116 mg/dL (65-115); Lipase 26 U/L (13-60); Magnesium 2.2 mg/dL (1.7-2.3); NT Pro B Type Natriuretic Pept 3933 pg/mL (0-125); Osmolality Calculated 284 mOsm/kg (285-295); Potassium 4.8 mmol/L (3.5-5.1); Sodium 138 mmol/L (136-145); Total Bilirubin 1.3 mg/dL (0.15-1.2); Total Protein 6.9 g/dL (6.6-8.7)
[2020-01-19] MEDS: iohexol 300 mg/mL 100 mL Btl IV (13:26)
--- NOTE | 2020-01-19 13:35 | ECG_ITS ---
[facility] Test Date: 2020-01-19 Pat Name: Gabino Jones Department: Room: Gender: Male Chair Caner: : 1955 Requested By: Jina Grant Order Number: [id number] Manuel Barton MD: Favio Ferguson M.D. Measurements Intervals [place] Rate: 101 P: [place]: -1 QRS: 49 QRSD: 131 T: 91 QT: 403 QTc: 523 Interpretive Statements ATRIAL FIBRILLATION WITH RAPID VENTRICULAR RESPONSE WITH ABERRANT CONDUCTION OR VENTRICULAR PREMATURE COMPLEXES RIGHT BUNDLE BRANCH BLOCK [120+ ms QRS DURATION, UPRIGHT V1, 40+ ms S IN I/aVL/V4/V5/V6] No previous ECG available for comparison Electronically Signed On 01-19-2020 13:42:18 CDT by Favio Ferguson M.D. [id number]
[2020-01-19] MEDS: FUROsemide 10 mg/mL SDV 4mL 40 MG IVP (13:36)
--- NOTE | 2020-01-19 14:07 | US_ITS ---
WS: [id number] RIGHT UPPER QUADRANT ULTRASOUND HISTORY: Pain COMPARISON: None available. Liver: 10.2 cm in length. Normal size and echogenicity with no intrahepatic dilatation. No mass. Gallbladder: Slightly contracted gallbladder with mild diffuse wall thickening. No cholecystic fluid. There is a small amount of sludge and a few stones within the lumen. CBD: 0.7 cm Pancreas: Not visualized. Right kidney: 11.9 cm in length. Normal echogenicity with no mass or hydronephrosis. Aorta and IVC: Unremarkable. No ascites. US/US gall bladder [id number] IMPRESSION: 1. Cholelithiasis with mild diffuse gallbladder wall thickening and a mildly c ontracted gallbladder. Findings suspicious for acute cholecystitis. 2. Common bile duct top normal size.
[2020-01-19 14:35] LABS: Troponin 5 2HR 31.19 ng/L (0-15)
[2020-01-19 14:39] LABS: Troponin 5 2HR Delta -3.81 ABS# (0-10)
--- NOTE | 2020-01-19 15:33 | PM.HP ---
Providers/Chief Complaint Primary Care Provider: PATO Hernandez Chief Complaint: SHORTNESS OF BREATH History of Present Illness Gabino Jones is a 64 year old male who presents to the hospital mainly complaining of abdominal discomfort. He states his abdomen is hurt, in the epigastric and right upper quadrant area for the last week. He noticed a bruise today. States food may irritated but he is not sure. No white stools, diarrhea, constipation. No nausea or vomiting. Worried because he has been told he has gallstones. Some abdominal distention. Also relates that he has had increasing edema lately. Admits to taking his Lasix only about 3 to 4 days over the last 14 as it makes him urinate when it is inconvenient. Some increased shortness of breath over baseline. Coughing up some yellow sputum on occasion. No hemoptysis. Review of Systems General: Reports: 10 or more systems reviewed and unremarkable except in HPI and below Const: Reports: malaise; Denies: fever(s) or chills Eyes: Denies: change in vision ENMT: Denies: throat pain Card: Reports: swelling of feet/ankles and dyspnea on exertion; Denies: chest pain Resp: Reports: dyspnea and productive cough GI: Reports: abdominal pain : Denies: flank pain Musc: Denies: neck pain Skin/Breast: Denies: rash Neuro: Denies: headache(s) Psych: Denies: anxiety Endo: Denies: polyuria Chavez/Lymph: Denies: easy bruising All/Imm: Denies: urticaria Medications/Allergies Home Medications Medication Instructions Recorded Confirmed Last Taken Type albuterol sulfate 2 puff INHALATION Q6H PRN 09/25/19 01/19/20 01/19/20 History aspirin 325 mg PO DAILY 09/25/19 01/19/20 10/14/19 History budesonide-formoterol 2 puff INHALATION BID 09/25/19 01/19/20 10/14/19 History cholecalciferol (vitamin D3) 100 mcg PO DAILY 09/25/19 01/19/20 10/14/19 History [Vitamin D3] ipratropium-albuterol 3 ml INHALATION Q6H PRN 09/25/19 01/19/20 10/14/19 History omeprazole 20 mg PO BID 10/14/19 01/19/2020 History apixaban [Eliquis] 5 mg PO BID #60 tab 10/16/19 01/19/20 01/19/20 Rx furosemide [Lasix] 40 mg PO DAILY #30 tab 10/16/19 01/19/20 01/19/20 Rx potassium chloride 10 meq PO DAILY #30 tab 10/16/19 01/19/20 01/19/20 Rx atorvastatin 20 mg tablet 10 mg PO DAILY 10/27/19 01/19/20 01/18/20 History levothyroxine 150 mcg tablet 75 mcg PO DAILY tab 10/27/19 01/19/20 01/19/20 History metoprolol tartrate 50 mg tablet 50 mg PO DIRECTED #75 tab 11/02/19 01/19/20 01/19/20 Rx budesonide-formoterol HFA 160 2 puff INHALATION BID #10.2 gm 11/17/19 01/19/20 Unknown Rx mcg-4.5 mcg/actuation aerosol inhaler tiotropium bromide 2.5 2 inh INHALATION QAM #4 gm 11/17/19 01/19/20 Unknown Rx mcg/actuation mist for inhalation aspirin [Aspirin Low Dose] See Rx Instructions .ROUTE .COMPLEX 01/19/20 01/19/20 01/19/20 History docusate sodium [Stool Softener] 100 mg PO DAILY 01/19/20 01/19/20 01/19/20 History pantoprazole 40 mg PO DAILY 01/19/20 01/19/20 01/19/20 History Allergies Allergy/AdvReac Type Severity Reaction Status Date / Time bupropion [From Wellbutrin] Allergy Unknown Verified 01/19/20 14:15 PFSH Acute PFSH: Medical History (Updated 01/19/20 @ 15:51 by Corwin Martini MD) Anemia Atrial fibrillation Metoprolol increased CHF (congestive heart failure) Last echocardiogram normal EF, grade 2/4 diastolic dysfunction October 2019 COPD (chronic obstructive pulmonary disease) Coronary artery disease GERD (gastroesophageal reflux disease) Hyperlipidemia Hypertension Hypothyroidism Surgical History 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 Oropharynx clear. Neck is supple no lymphadenopathy, thyromegaly Cardiovascular irregular, irregular with rate of approximately 100. No murmur. Lungs a few scattered wheezes Abdomen is soft with positive bowel sounds. Bruising noted right quadrant. Some tenderness right upper quadrant above bruising. was deferred Extremities 2+ edema bilaterally, no cyanosis or clubbing Skin no rash Neuro no focal deficits Data : 01/19/20 11:40 01/19/20 11:40 Other data: INR 1.5 pH 7.43, PCO2 35, PO2 67 Bilirubin elevated at 1.3, alk phos 135, AST and ALT normal Troponin 35 at baseline and 31 on repeat at 120 minutes EKG demonstrates atrial flutter, normal axis, right bundle branch block Gallbladder ultrasound with cholelithiasis, gallbladder wall thickening, common bile duct upper limits normal Chest x-ray pulmonary fibrosis, interstitial infiltrate CT abdomen pelvis concern of acute cholecystitis, possible right pneumonitis A&P Assessment and plan (1) CHF (congestive heart failure): Status: Inactive (2) Acute exacerbation of CHF (congestive heart failure): Diuresis with Lasix 40 mg every 12 hours Discussed with him his compliance with medication at home. No need to repeat echocardiogram Consistent with acute diastolic heart failure exacerbation. Status: Acute Qualifiers: Heart failure type: unspecified Qualified Code(s): I50.9 - Heart failure, unspecified (3) Abdominal pain: Concern exists for cholecystitis We will get surgical opinion Zosyn IV for now Status: Acute (4) COPD (chronic obstructive pulmonary disease): Acute exacerbation of COPD Prednisone 40 mg a day Nebs every 4 hours scheduled Continue home meds Status: Acute Additional A&P Information Hypothyroidism, check TSH History of atrial fibrillation. Continue patient's home beta-radha GERD, continue Protonix Elevated troponin, no evidence of ongoing ischemia. Type II Coronary artery disease Hypertension Hyperlipidemia, continue statin Chronic anemia, overall stable Full code Eliquis will suffice for DVT prophylaxis Attestations Medical Necessity Statement*: Will need greater than 2 midnight stay for evaluation and treatment of COPD exacerbation and acute exacerbation of diastolic congestive heart failure Time Spent in Patient Care: Greater than 35 minutes 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 of Care Code Acute Temperature Regulator Pyrometer for Jahg Fwd Diagnoses CHF (congestive heart failure) I50.9 Acute exacerbation of CHF (congestive heart failure) I50.9 Heart failure type: unspecified Abdominal pain R10.9 COPD (chronic obstructive pulmonary disease) J44.9
[2020-01-19] MEDS: piperacillin-tazobactam 3.375 GM in sodium chloride 0.9% (plus) 50 ML IV ×2 (15:37→21:29)
[2020-01-19 16:33] LABS: SARS Covid-2 Antigen Negative (Negative)
--- NOTE | 2020-01-19 16:53 | P.CONIM_ITS ---
Providers/Reason For Consult Consulting Physican/Specialty*: Osei Choi MD Reason for Consult*: Cholecystitis Requesting Physcian: Dr. Martini Primary Care Provider: PATO Hernandez History of Present Illness History of Present Illness Chief Complaint: I am short in breath and my tummy hurts History of present illness: Mr. Gabino Jones is a pleasant 64 year old male presents to the emergency department based on recommendation from his primary care provider as he has been having shortness of breath associated with upper abdominal discomfort described as pressure, patient today recognized that he had a bruise on the upper abdomen towards the right side and he woke up in the morning as such and he does not recall how did he get it, patient denies any history of fatty dyspepsia and he avoids agrees by all means as he had the knowledge that he had gallbladder stones before, currently he denies any fevers chills nausea or vomiting. Patient undergone further work-up including COVID-19 test that was negative and general surgery was consulted for further evaluation due to the incidental finding of the gallbladder stones and concern for potential cholecystitis. Patient was seen and evaluated in the emergency department room 3 CT scan of the abdomen and pelvis showed; FINDINGS: Chronic changes are seen in both lung bases with honeycombing and fibrosis. There has been progression in the amount of thickening in the area of honeycombing with some pleural thickening and slight pleural fluid suggesting possibly an acute pneumonitis. Postop sternotomy changes from prior surgery. Heart size is considered minimally enlarged. The aorta is normal in caliber with peripheral calcified plaque. Lumen opacifies normally. The liver is normal in attenuation and enhancement.. Low-density lesions are felt to represent cysts. The gallbladder is moderately distended. Thickening of the wall with pericholecystic inflammatory changes are seen felt to represent acute cholecystitis. No biliary dilatation is seen. The portal vein is patent. Spleen is normal in size and enhancement. Pancreas is normal in appearance. Adrenal glands are normal in appearance. Both kidneys enhance normally. No solid mass lesion. Small nonobstructing calcifications are seen within both kidneys. No obstructive uropathy or ureteral stones are identified. Retrocardiac hernia demonstrated. Stomach otherwise normal in appearance. Small bowel is normal in caliber. Colon is normal in caliber. Normal appendix in the right false pelvis region. There are findings of a small amount of free fluid interposed between the anterior lobe of the liver and the right hemidiaphragm. Several low-density lesions within the liver felt to represent cysts. Small amount of edema within the josue hepatis region seen. There is also small amount of fluid in the right false pelvis and the deep pelvis. No intraperitoneal or retroperitoneal adenopathy or mass is identified. Small amount induration around the umbilicus suggesting possible cellulite. Tiny umbilical hernia containing fat. No large inguinal hernia containing fat. Prostate is minimally enlarged. Seminal vesicles normal in appearance. There is a intramuscular lipoma within the left tensor fascia ruperto muscle. Bladder is normally distended. Scattered changes of arthritis are seen in the spine. Most prominent L5-S1 level. Air in the disc space as well as in the canal at the L5-S1 level. There are findings of bilateral L5-S1 neural foraminal stenosis. CT/CT abdomen pelvis w con* [id number] IMPRESSION: Imaging findings felt to represent acute cholecystitis. Slight increased interstitial markings as well as slight pleural fluid in both lung bases suggesting a possible acute pneumonitis. Other nonemergent findings as described in the body of the report. Ultrasound of the gallbladder showed: 1. Cholelithiasis with mild diffuse gallbladder wall thickening and a mildly contracted gallbladder. Findings suspicious for acute cholecystitis. 2. Common bile duct top normal size. Review of Systems General: Reports: 10 or more systems reviewed and unremarkable except in HPI and below ENMT: Reports: mouth pain Meds/Allergies Home Medications and Allergies Home Medications Medication Instructions Recorded Confirmed Last Taken Type albuterol sulfate 2 puff INHALATION Q6H PRN 09/25/19 01/19/20 01/19/20 History aspirin 325 mg PO DAILY 09/25/19 01/19/20 10/14/19 History budesonide-formoterol 2 puff INHALATION BID 09/25/19 01/19/20 10/14/19 History cholecalciferol (vitamin D3) 100 mcg PO DAILY 09/25/19 01/19/20 10/14/19 History [Vitamin D3] ipratropium-albuterol 3 ml INHALATION Q6H PRN 09/25/19 01/19/20 10/14/19 History omeprazole 20 mg PO BID 10/14/19 01/19/20 01/19/20 History apixaban [Eliquis] 5 mg PO BID #60 tab 05/15/20 08/18/20 08/18/20 Rx furosemide [Lasix] 40 mg PO DAILY #30 tab 10/16/19 01/19/20 01/19/20 Rx potassium chloride 10 meq PO DAILY #30 tab 10/16/19 01/19/20 01/19/20 Rx atorvastatin 20 mg tablet 10 mg PO DAILY 10/27/19 01/19/20 01/18/20 History levothyroxine 150 mcg tablet 75 mcg PO DAILY tab 10/27/19 01/19/20 01/19/20 History metoprolol tartrate 50 mg tablet 50 mg PO DIRECTED #75 tab 11/02/19 01/19/20 01/19/20 Rx budesonide-formoterol HFA 160 2 puff INHALATION BID #10.2 gm 11/17/19 01/19/20 Unknown Rx mcg-4.5 mcg/actuation aerosol inhaler tiotropium bromide 2.5 2 inh INHALATION QAM #4 gm 11/17/19 01/19/20 Unknown Rx mcg/actuation mist for inhalation aspirin [Aspirin Low Dose] See Rx Instructions .ROUTE .COMPLEX 01/19/20 01/19/20 01/19/20 History docusate sodium [Stool Softener] 100 mg PO DAILY 01/19/20 01/19/20 01/19/20 History pantoprazole 40 mg PO DAILY 01/19/20 01/19/20 01/19/20 History Allergies Allergy/AdvReac Type Severity Reaction Status Date / Time bupropion [From Wellbutrin] Allergy Unknown Verified 01/19/20 14:15 PFSH Acute PFSH: Medical History Anemia Atrial fibrillation Metoprolol increased CHF (congestive heart failure) Last echocardiogram normal EF, grade 2/4 diastolic dysfunction October 2019 COPD (chronic obstructive pulmonary disease) Coronary artery disease GERD (gastroesophageal reflux disease) Hyperlipidemia Hypertension Hypothyroidism Surgical History 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 History of knee surgery History of vasectomy Family History Other CAD (coronary artery disease) Social History Smoking and tobacco status: former smoker Alcohol intake: never Vitals/I&O/Wt Last Vital Signs Temp 97.8 F 01/19/20 11:33 Pulse 101 H 01/19/20 13:06 Resp 23 H 01/19/20 13:06 BP 121/79 01/19/20 13:06 Pulse Ox 96 01/19/20 13:06 Weight last 48 hrs Weight 234 lb Physical Exam Narrative: EXAM NARRATIVE: Patient is conscious alert oriented X3 BMI 34 Head and neck examination PERRLA no masses no cervical lymphadenopathy no jaundice Cardiac examination audible S1-S2 no murmurs no gallops no arrhythmias Chest fair air entry bilateral yet distant,abscence of Rhonchi or wheezes,no surgical emphysema Abdomen nontender, bruise noticed towards the right upper quadrant nondistended soft no organomegaly guarding or rigidity/no signs of peritonitis. Bilateral lower Extremities soft pitting edema A&P Assessment and plan (1) Abdominal pain: After history taking physical examination and reviewing the chart and images I do believe that the patient does have incidental finding of cholelithiasis without obvious symptoms, that would not explain his current reason for hospitalization, patient will require medical optimization of his cardiac condition and follow-up at surgery office for potential discussion of indications of gallbladder surgery if any. Recommend to have low fat diet No acute surgical intervention required at this point Thank you for consulting general surgery to participate taking care Mr. Jones Status: Acute Consult Attestations Medical Necessity Statement: Per hospitalist service Time Spent in Patient Care: less than 15 minutes (>than 50% of time spent in counselling and/or direct pt care on unit) . 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 of Care Code Acute Mail Handler Sorter for Chg Fwd Diagnoses Abdominal pain R10.9
--- NOTE | 2020-01-19 17:33 | PC.NURSE ---
REPORT GIVEN TO OLIVER Gonzalez RN
--- NOTE | 2020-01-19 17:35 | ECG_ITS ---
[facility] Test Date: 2020-01-19 Pat Name: Gabino Jones Department: Room: 111 Gender: Male Residential Specialist: : [id number] Requested By: Jina Grant Order Number: [id number] Mick MD: Favio Ferguson M.D. Measurements Intervals [place] Rate: 96 P: 214 SD: 204 QRS: 5 QRSD: 129 T: 192 QT: 424 QTc: 538 Interpretive Statements SINUS RHYTHM RIGHT BUNDLE BRANCH BLOCK [120+ ms QRS DURATION, UPRIGHT V1, 40+ ms S IN I/aVL/V4/V5/V6] ST DEVIATION AND MARKED T-WAVE ABNORMALITY, CONSIDER ANTEROLATERAL ISCHEMIA [-0.5+ mV T WAVE IN I/aVL/V3-V6] Compared to ECG 01/19/2020 13:35:58 T-wave abnormality now present Possible ischemia now present Atrial fibrillation no longer present Aberrant conduction of supraventricular beat(s) no longer present Ventricular premature complex(es) no longer present Electronically Signed On 01-19-2020 17:51:25 CDT by Favio Ferguson M.D. [email or web address] [id number]
[2020-01-19 18:07] LABS: Troponin 5 6HR 29.77 ng/L (0-15)
[2020-01-19 18:10] LABS: Thyroid Stimulating Hormone 10.28 uIU/mL (0.27-4.20)
[2020-01-19] MEDS: metoprolol tartrate 50 mg Tablet PO (18:14)
[2020-01-19] MEDS: apixaban 5 mg Tablet PO (18:14)
[2020-01-19] MEDS: aspirin 81 mg EC Tablet PO (18:15)
[2020-01-19 18:18] LABS: Troponin 5 6HR Delta -5.23 ng/L (0-12)
--- NOTE | 2020-01-19 19:23 | PC.NURSE ---
PT SITTING ON SIDE OF BED. PT DENIES PAIN AT THIS TIME. PT STATES THAT THEY ARE HUNGRY. SNACKS WERE BROUGHT TO PT. PT HR BECOMES TACHY WITH EXERTION. WILL CONTINUE TO MONITOR.
[2020-01-19] MEDS: ipratropium-albuterol 3 mL Neb INHALATION (23:35)
[2020-01-20] VITALS (13 sets, daily range): BP systolic 98–115; BP diastolic 51–70; PULSE 90–148; RESP 17–24; TEMP 36.4–36.8; O2SAT 86–94
[2020-01-20] MEDS: FUROsemide 10 mg/mL SDV 4mL 40 MG IVP ×3 (00:22→23:32)
[2020-01-20] MEDS: ipratropium-albuterol 3 mL Neb INHALATION ×4 (04:00→20:09)
[2020-01-20 04:08] LABS: Basophils # 0.1 10^3/uL (0.0-0.1); Basophils % 0.9 %; Eosinophils # 0.1 10^3/uL (0.0-0.8); Eosinophils % 2.5 %; Hematocrit 37.1 % (42.0-52.0); Hemoglobin 10.5 g/dL (11.7-16.6); Lymphocytes # 0.8 10^3/uL (0.8-4.8); Lymphocytes % 14.5 %; Mean Corpuscular HGB Conc 28.3 g/dL (30.0-36.0); Mean Corpuscular Hemoglobin 21.5 pg (28.0-34.0); Mean Platelet Volume 10.2 fL (7.4-10.4); Monocytes # 0.5 10^3/uL (0.2-0.9); Monocytes % 9.5 %; Neutrophils # 4.14 10^3/uL (1.8-7.7); Neutrophils % 72.4 %; Nucleated Red Blood Cells % 0 %; Platelet Count 225 10^3/cmm (130-400); Red Blood Count 4.88 10^6/uL (4.1-5.3); Red Cell Distribution Width 18.8 % (12.1-15.1); White Blood Count 5.7 10^3/uL (4.0-10.0)
[2020-01-20 04:36] LABS: Alanine Aminotransferase 13 U/L (0-41); Alkaline Phosphatase 136 IU/L (40-130); Anion Gap 13.6 (5-19); Aspartate Amino Transferase 19 U/L (0-40); Blood Urea Nitrogen 22 mg/dL (8-23); Calcium 9.2 mg/dL (8.5-10.5); Carbon Dioxide 28 mmol/L (22-29); Chloride 101 mmol/L (98-107); Glomerular Filtration Rate 50.9 mL/min (90-130); Glucose 124 mg/dL (65-115); Osmolality Calculated 286 mOsm/kg (285-295); Potassium 3.6 mmol/L (3.5-5.1); Sodium 139 mmol/L (136-145); Total Bilirubin 1.5 mg/dL (0.15-1.2)
[2020-01-20] MEDS: labetalol 5 mg/mL SDV 20mL 10 MG IVP (04:52)
--- NOTE | 2020-01-20 05:03 | PC.NURSE ---
Patient heart rate sustaining 150s. Informed Dr Garcia and doctor placed order for one time Labetol 10mg IVP which was given.
[2020-01-20] MEDS: piperacillin-tazobactam 3.375 GM in sodium chloride 0.9% (plus) 50 ML IV ×3 (05:33→22:25)
--- NOTE | 2020-01-20 05:59 | PC.NURSE ---
PT HAS BEEN UP MOST OF THE NIGHT. [facility]. PT DENIES PAIN. HR WAS TACHY ORDERED LABETALOL. ROD POINTER NURSE ADMINISTERED IVP. WILL CONTINUE TO MONITOR.
--- NOTE | 2020-01-20 07:18 | PC.NURSE ---
Patient resting in bed at this time. Eyes closed, even nonlabored breathing. No needs identified at this time. Nurse to continue to monitor.
[2020-01-20] MEDS: metoprolol tartrate 50 mg Tablet PO ×2 (09:32→17:22)
[2020-01-20] MEDS: predniSONE 20 mg Tablet 40 MG PO (09:32)
[2020-01-20] MEDS: atorvastatin 40 mg Tablet 20 MG PO (09:32)
[2020-01-20] MEDS: pantoprazole DR 40 mg Tablet PO (09:32)
[2020-01-20] MEDS: levothyroxine 150 mcg Tablet 75 MCG PO (09:33)
[2020-01-20] MEDS: aspirin 81 mg EC Tablet PO (09:33)
--- NOTE | 2020-01-20 09:40 | PC.NURSE ---
Physician Notification Patient A fib RVR, HR 140s. Patient states he has a headache but is otherwise asymptomatic. BP 90/55. Dr. Martini notified. Physician to put in orders. Nurse to continue to monitor.
--- NOTE | 2020-01-20 09:55 | P.PN_ITS ---
Subjective Subjective: Interval history: Gabino reports he is breathing okay this morning. Less short of breath than on admission. Feels like swelling is perhaps down a little bit. Heart rate drifted up and he required a dose of labetalol last night. Medications: Reviewed: Yes Vitals/I&O/Wt Last Vital Signs Temp 97.5 F L 01/20/20 07:22 Pulse 117 H 01/20/20 08:00 Resp 18 01/20/20 07:55 BP 98/55 01/20/20 07:22 Pulse Ox 90 01/20/20 07:55 01/19/20 01/20/20 01/20/20 22:59 06:59 14:59 Intake Total 550 / 550 50 / 50 Output Total 400 / 400 1800 / 2200 Balance -400 / -400 -1250 / -1650 50 / 50 Weight last 48 hrs Weight 103.056 kg Weight 106.141 kg Physical Exam Narrative: EXAM NARRATIVE: General exam is an elderly white male, no apparent distress Cardiovascular irregular, irregular with accelerated rate Lungs no wheezing. Diminished breath sounds are noted bilaterally Abdomen is soft with positive bowel sounds. Bruising noted right quadrant. Some tenderness right upper quadrant above bruising. Extremities 2+ edema bilaterally, no cyanosis or clubbing Data : 01/20/20 03:33 01/20/20 03:33 A&P Assessment and plan (1) CHF (congestive heart failure): He diuresed approximately 1600 cc last night. Continue diuresis, watching renal function closely. Consistent with acute diastolic heart failure. Status: Inactive (2) Acute exacerbation of CHF (congestive heart failure): Continue Lasix 40 mg every 12 hours Discussed with him his compliance with medication at home. No need to repeat echocardiogram Consistent with acute diastolic heart failure exacerbation. Status: Acute Qualifiers: Heart failure type: unspecified Qualified Code(s): I50.9 - Heart failure, unspecified (3) Abdominal pain: Concern exists for cholecystitis Appreciate surgical opinion Reza ALLEN for now No plan for surgical procedures at this time. We will continue to follow clinically. Status: Acute (4) COPD (chronic obstructive pulmonary disease): Acute exacerbation of COPD Prednisone 40 mg a day As he is having some issues with atrial fibrillation with rapid ventricular rate will change nebs to as needed Continue home meds Status: Acute Additional A&P Information Atrial fibrillation with rapid ventricular rate. Continue metoprolol. As blood pressure is somewhat low we will give digoxin 500 mcg IV now, and reassess. Hypothyroidism, increase thyroid hormone secondary to elevated TSH. History of atrial fibrillation. Continue patient's home beta-radha GERD, continue Protonix Elevated troponin, no evidence of ongoing ischemia. Type II Coronary artery disease. Continue aspirin, statin, beta-radha Hypertension Hyperlipidemia, continue statin Chronic anemia, overall stable Full code Eliquis will suffice for DVT prophylaxis Attestations Medical Necessity Statement*: Needs continued hospitalization for further diuresis secondary to heart failure, as well as adjustment of medication for atrial fibrillation with rapid ventricular rate. 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 of Care Code Acute Junior Analyst for [facility] Fwd Diagnoses CHF (congestive heart failure) I50.9 Acute exacerbation of CHF (congestive heart failure) I50.9 Heart failure type: unspecified Abdominal pain R10.9 COPD (chronic obstructive pulmonary disease) J44.9
[2020-01-20] MEDS: digoxin 250 mcg/ml INJ 2 mL 500 MCG IVP (10:18)
[2020-01-20] MEDS: apixaban 5 mg Tablet PO ×2 (10:43→17:23)
--- NOTE | 2020-01-20 15:54 | PC.RESP ---
PULMONARY REHAB INFORMATION SENT TO PATIENT.
[2020-01-20] MEDS: digoxin 250 mcg/ml INJ 2 mL IVP (17:23)
--- NOTE | 2020-01-20 19:05 | PC.NURSE ---
Shift Summary Rest of shift following afib c rvr episode remained uneventful. Patient was up ad mckenzie to side of the bed most of the day, tolerated activity well. VSS at this time.
--- NOTE | 2020-01-20 23:30 | PC.NURSE ---
PT IS RESTING IN BED WATCHING VIDEOS ON CELL PHONE. PT DENIES PAIN AT THIS TIME. WILL CONTINUE TO MONITOR.
[2020-01-21] VITALS (13 sets, daily range): BP systolic 96–128; BP diastolic 54–73; PULSE 79–118; RESP 17–29; TEMP 36.4–36.9; O2SAT 92–97
[2020-01-21 04:21] LABS: Basophils % 0.2 %; Eosinophils % 0.2 %; Hematocrit 36.2 % (42.0-52.0); Hemoglobin 10.2 g/dL (11.7-16.6); Lymphocytes # 0.8 10^3/uL (0.8-4.8); Lymphocytes % 12.6 %; Mean Corpuscular HGB Conc 28.2 g/dL (30.0-36.0); Mean Corpuscular Hemoglobin 21.7 pg (28.0-34.0); Monocytes # 0.6 10^3/uL (0.2-0.9); Monocytes % 9.8 %; Neutrophils % 76.9 %; Nucleated Red Blood Cells % 0 %; Platelet Count 210 10^3/cmm (130-400); Red Cell Distribution Width 18.6 % (12.1-15.1); White Blood Count 6.5 10^3/uL (4.0-10.0)
[2020-01-21 04:54] LABS: Alanine Aminotransferase 13 U/L (0-41); Albumin Level 3.7 g/dL (3.5-5.2); Alkaline Phosphatase 123 IU/L (40-130); Anion Gap 14.8 (5-19); Aspartate Amino Transferase 18 U/L (0-40); Blood Urea Nitrogen 21 mg/dL (8-23); Calcium 8.6 mg/dL (8.5-10.5); Carbon Dioxide 26 mmol/L (22-29); Chloride 100 mmol/L (98-107); Globulin 3.1 g/dL (1.3-4.6); Glomerular Filtration Rate 50.9 mL/min (90-130); Glucose 115 mg/dL (65-115); Osmolality Calculated 282 mOsm/kg (285-295); Potassium 3.8 mmol/L (3.5-5.1); Sodium 137 mmol/L (136-145); Total Bilirubin 1.2 mg/dL (0.15-1.2); Total Protein 6.8 g/dL (6.6-8.7)
[2020-01-21] MEDS: piperacillin-tazobactam 3.375 GM in sodium chloride 0.9% (plus) 50 ML IV ×3 (06:00→21:00)
--- NOTE | 2020-01-21 07:12 | PC.NURSE ---
PT WAS UP MOST OF THE NIGHT. PT DENIES PAIN AT THIS TIME. REPORT GIVEN TO ON COMING NURSE.
--- NOTE | 2020-01-21 07:30 | PC.NURSE ---
Patient resting in bed with even non labored breathing. Assessment performed. Lower extremity edema has improved. Patient states breathing is easier. No needs identified at this time.
[2020-01-21] MEDS: metoprolol tartrate 50 mg Tablet PO (08:21)
[2020-01-21] MEDS: digoxin 250 mcg Tablet PO (08:21)
[2020-01-21] MEDS: predniSONE 20 mg Tablet 40 MG PO (08:21)
[2020-01-21] MEDS: pantoprazole DR 40 mg Tablet PO (08:21)
[2020-01-21] MEDS: aspirin 81 mg EC Tablet PO (08:22)
[2020-01-21] MEDS: atorvastatin 40 mg Tablet 20 MG PO (08:22)
[2020-01-21] MEDS: levothyroxine 100 mcg Tablet PO (08:22)
[2020-01-21] MEDS: apixaban 5 mg Tablet PO ×2 (08:22→17:35)
[2020-01-21] MEDS: ipratropium-albuterol 3 mL Neb INHALATION ×3 (08:24→20:09)
[2020-01-21] MEDS: metoprolol tartrate 25 mg Tablet PO (09:04)
--- NOTE | 2020-01-21 12:25 | PM.PN ---
Subjective Subjective: Interval history: Gabino reports he is doing okay. No chest pain. Was short of breath this morning but had not had his breathing treatment in some time. Medications: Reviewed: Yes Vitals/I&O/Wt Last Vital Signs Temp 97.7 F 01/21/20 11:06 Pulse 88 01/21/20 11:06 Resp 18 01/21/20 11:06 BP 96/54 01/21/20 11:06 Pulse Ox 96 01/21/20 11:06 01/20/20 01/21/20 01/21/20 22:59 06:59 14:59 Intake Total 530 / 1060 530 / 1590 290 / 290 Output Total 1000 / 1400 1900 / 3300 250 / 250 Balance -470 / -340 -1370 / -1710 40 / 40 Weight last 48 hrs Weight 102.24 kg Weight 103.056 kg Physical Exam Narrative: EXAM NARRATIVE: General exam is an elderly white male, no apparent distress. Telemetry indicates heart rate of around 110 Cardiovascular irregular, irregular with improved control of rate Lungs no wheezing. Diminished breath sounds are noted bilaterally Abdomen is soft with positive bowel sounds. Bruising noted right quadrant. Some tenderness right upper quadrant above bruising. Extremities 1+ edema bilaterally, no cyanosis or clubbing Data : 01/21/20 03:35 01/21/20 03:35 A&P Assessment and plan (1) CHF (congestive heart failure): He has diuresed another 1800 cc, and appears to be coming compensated in regards to his heart failure. Continue diuresis currently Consistent with acute diastolic heart failure. Status: Inactive (2) Acute exacerbation of CHF (congestive heart failure): Continue Lasix 40 mg every 12 hours Discussed with him his compliance with medication at home. No need to repeat echocardiogram Consistent with acute diastolic heart failure exacerbation. Status: Acute Qualifiers: Heart failure type: unspecified Qualified Code(s): I50.9 - Heart failure, unspecified (3) Abdominal pain: Concern exists for cholecystitis Appreciate surgical opinion Reza ALLEN for now No plan for surgical procedures at this time. We will continue to follow clinically. Likely he will follow-up with surgery as an outpatient. Note that his liver function tests are normal today. Status: Acute (4) COPD (chronic obstructive pulmonary disease): Acute exacerbation of COPD Prednisone 40 mg a day Continue nebs Status: Acute Additional A&P Information Atrial fibrillation with rapid ventricular rate. Digoxin was added yesterday. Will increase metoprolol for better control of rate Hypothyroidism, increase thyroid hormone secondary to elevated TSH. History of atrial fibrillation. Continue higher dose of beta-radha. Digoxin added. GERD, continue Protonix Elevated troponin, no evidence of ongoing ischemia. Type II Coronary artery disease. Continue aspirin, statin, beta-radha Hypertension Hyperlipidemia, continue statin Chronic anemia, overall stable Full code Eliquis will suffice for DVT prophylaxis Attestations Medical Necessity Statement*: Needs continued hospitalization for further diuresis secondary to acute diastolic heart failure. 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 of Care Code Acute J2Ee Application Developer for g Fwd Diagnoses CHF (congestive heart failure) I50.9 Acute exacerbation of CHF (congestive heart failure) I50.9 Heart failure type: unspecified Abdominal pain R10.9 COPD (chronic obstructive pulmonary disease) J44.9
[2020-01-21] MEDS: FUROsemide 10 mg/mL SDV 4mL 40 MG IVP (13:29)
[2020-01-21] MEDS: metoprolol tartrate 50 mg Tablet 75 MG PO (17:36)
--- NOTE | 2020-01-21 19:05 | PC.NURSE ---
Shift Summary Patient had uneventful shift. Patient sat at side of bed for majority of shift. Patient took shower after lunch. Tolerated activity well. No further needs identified at this time. Nurse to continue to monitor.
--- NOTE | 2020-01-21 19:43 | PC.NURSE ---
Rounding: patient resting in bed. Denies any pain or discomfort. patient is alert and oriented. Will continue to monitor.
[2020-01-22] VITALS (11 sets, daily range): BP systolic 103–125; BP diastolic 63–88; PULSE 85–127; RESP 17–19; TEMP 36.4–36.6; O2SAT 88–97; BMI 32.2
[2020-01-22] MEDS: FUROsemide 10 mg/mL SDV 4mL 40 MG IVP (01:31)
[2020-01-22] MEDS: ipratropium-albuterol 3 mL Neb INHALATION ×2 (04:18→08:20)
[2020-01-22 05:25] LABS: Alanine Aminotransferase 15 U/L (0-41); Albumin Level 4.1 g/dL (3.5-5.2); Alkaline Phosphatase 118 IU/L (40-130); Anion Gap 13.6 (5-19); Aspartate Amino Transferase 17 U/L (0-40); Blood Urea Nitrogen 20 mg/dL (8-23); Carbon Dioxide 31 mmol/L (22-29); Chloride 97 mmol/L (98-107); Globulin 3.2 g/dL (1.3-4.6); Glomerular Filtration Rate 60.8 mL/min (90-130); Glucose 123 mg/dL (65-115); Osmolality Calculated 284 mOsm/kg (285-295); Potassium 3.6 mmol/L (3.5-5.1); Sodium 138 mmol/L (136-145); Total Bilirubin 0.9 mg/dL (0.15-1.2); Total Protein 7.3 g/dL (6.6-8.7)
[2020-01-22] MEDS: piperacillin-tazobactam 3.375 GM in sodium chloride 0.9% (plus) 50 ML IV (06:20)
--- NOTE | 2020-01-22 07:50 | PC.NURSE ---
Patient up to side of bed at time of assessment. Patient reports breathing and swelling is better. No further needs identified at this time. Nurse to continue to monitor.
[2020-01-22] MEDS: atorvastatin 40 mg Tablet 20 MG PO (08:45)
[2020-01-22] MEDS: digoxin 250 mcg Tablet PO (08:46)
[2020-01-22] MEDS: levothyroxine 100 mcg Tablet PO (08:46)
[2020-01-22] MEDS: pantoprazole DR 40 mg Tablet PO (08:46)
[2020-01-22] MEDS: predniSONE 20 mg Tablet 40 MG PO (08:47)
[2020-01-22] MEDS: apixaban 5 mg Tablet PO (08:47)
[2020-01-22] MEDS: metoprolol tartrate 50 mg Tablet 75 MG PO (08:47)
[2020-01-22] MEDS: aspirin 81 mg EC Tablet PO (08:47)
--- NOTE | 2020-01-22 08:55 | PC.SOCIAL ---
IMM Page 2 of IMM explained to patient. Initialed, dated, and timed and placed in chart. Copy provided to patient.
--- NOTE | 2020-01-22 10:00 | P.DS_ITS ---
Discharge Providers Date of Admission: 01/19/20 15:40 Date of Discharge: January 22, 2020 Attending Provider at Admission: Corwin Martini MD Attending Provider at Discharge: Corwin Martini MD Primary Care Provider: PATO Hernandez Diagnoses at Discharge Discharge Diagnosis (1) CHF (congestive heart failure): Status: Inactive Problem details: Last echocardiogram normal EF, grade 2/4 diastolic dysfunction October 2019 (2) Acute exacerbation of CHF (congestive heart failure): Status: Acute Problem details: Compensated currently Qualifiers: Heart failure type: unspecified Qualified Code(s): I50.9 - Heart failure, unspecified (3) Abdominal pain: Status: Acute (4) COPD (chronic obstructive pulmonary disease): Status: Acute Reason for Visit Reason for Visit: SHORTNESS OF BREATH Hospital Course Hospital Course: Gabino is a 64-year-old white male who presented to the hospital with wheezing and increased shortness of breath. Lower extremity edema was apparent. He reported he had only taken his Lasix perhaps 4 out of the last 14 days. He was placed on IV Lasix for exacerbation of heart failure, steroids antibiotics and breathing treatments for COPD exacerbation. There was also concern of possible acute cholecystitis on CT and ultrasound although this was thought to be less likely clinically. During his hospital stay he had some episodes of atrial fibrillation with rapid ventricular rate and digoxin was added, and metoprolol dose increased. During the course of his hospital stay heart failure became compensated, he improved greatly from his COPD perspective and surgery was able to see him and arrange for outpatient follow-up in regards to his cholelithiasis. He was instructed to not miss any doses of his oral Lasix as this could lead to re-hospitalization. He will get a home oxygen evaluation prior to discharge. Physical Exam Narrative: EXAM NARRATIVE: General exam no apparent distress Cardiovascular irregular, irregular with a controlled rate of 75 100 Lungs clear but with diminished breath sounds bilaterally Abdomen is soft positive bowel sounds Extremities trace edema Discharge Data Data Completed and Pending: Completed Studies During Hospitalization Category Date Time Status CT abdomen pelvis w con* [id number] Stat Cat Scan 01/19/20 11:39 Completed XR chest 1V josue ble [id number] Stat Exams 01/19/20 11:34 Completed US gall bladder 7 4733 Urgent Ultrasound 01/19/20 14:07 Completed Labs from last 24 hours 01/22/20 04:36 Sodium 138 Potassium 3.6 Chloride 97 L Carbon Dioxide 31 H Anion Gap 13.6 BUN 20 Creatinine 1.2 GFR Calculation 60.8 L Glucose 123 H Calculated Osmolal ity 284 L Calcium 9.0 Total Bilirubin 0.9 AST 17 ALT 15 Alkaline Phosphata se 118 Total Protein 7.3 Albumin 4.1 Globulin 3.2 Vitals: Last Vital Signs Temp 97.9 F 01/22/20 08:49 Pulse 102 H 01/22/20 08:49 Resp 17 01/22/20 08:49 BP 103/63 01/22/20 08:49 Pulse Ox 88 L 01/22/20 09:29 Discharge Plan Discharge Patient Disposition: Home Condition: Stable Prescriptions: New prednisone 20 mg Tablet 40 mg PO DAILY Qty: 6 RF: 0 digoxin 250 mcg (0.25 mg) Tablet 250 mcg PO DAILY Qty: 30 RF: 0 metoprolol tartrate 50 mg Tablet 75 mg PO BID Qty: 90 RF: 0 levofloxacin [Levaquin] 750 mg tablet 750 mg PO DAILY 7 Days Qty: 7 RF: 0 levothyroxine [Levoxyl] 100 mcg Tablet 100 mcg PO DAILY Qty: 30 RF: 0 Continued budesonide-formoterol [Symbicort] 160-4.5 mcg/actuation HFA aerosol inhaler 2 puff INHALATION BID Qty: 10.2 RF: 3 Spiriva Respimat 2.5 mcg/actuation mist 2 inh INHALATION QAM Qty: 4 RF: 3 ipratropium-albuterol 0.5 mg-3 mg(2.5 mg base)/3 mL Solution For Nebulization 3 ml INHALATION Q6H PRN (Reason: Shortness Of Breath) RF: 0 albuterol sulfate 90 mcg/actuation Hfa Aerosol Inhaler 2 puff INHALATION Q6H PRN (Reason: Shortness Of Breath) RF: 0 budesonide-formoterol 80-4.5 mcg/actuation Hfa Aerosol Inhaler 2 puff INHALATION BID RF: 0 cholecalciferol (vitamin D3) [Vitamin D3] 50 mcg (2,000 unit) Capsule 100 mcg PO DAILY RF: 0 atorvastatin 20 mg tablet 10 mg PO DAILY RF: 0 omeprazole 20 mg Capsule,Delayed Release(Dr/Ec) 20 mg PO BID RF: 0 Eliquis 5 mg Tablet 5 mg PO BID Qty: 60 RF: 0 furosemide [Lasix] 40 mg tablet 40 mg PO DAILY Qty: 30 RF: 0 potassium chloride 10 mEq tablet extended release 10 meq PO DAILY Qty: 30 RF: 0 Aspirin Low Dose 81 mg Tablet,Delayed Release (Dr/Ec) See Rx Instructions .ROUTE .COMPLEX RF: 0 pantoprazole 40 mg Tablet,Delayed Release (Dr/Ec) 40 mg PO DAILY RF: 0 Stool Softener 100 mg Capsule 100 mg PO DAILY RF: 0 Discontinued levothyroxine 150 mcg tablet 75 mcg PO DAILY RF: 0 metoprolol tartrate 50 mg tablet 50 mg PO DIRECTED Qty: 75 RF: 6 aspirin 325 mg Tablet 325 mg PO DAILY RF: 0 Discharge Orders: Discharge Order (Routine); Ordered 01/22/20 Ordered By: Corwin Martini Referrals: Osei Choi MD [Physician] - 2 weeks (Return to surgery office in 2-week upon discharge) Isela Gipson FNP [Primary Care Provider] - 4-7 days Discharge Diet: Cardiac Discharge Activity: Increase activity as tolerated Activity Restrictions/Additional Instructions: Take all medicine as prescribed Take your Lasix every day Keep follow-up, and blood work in 3 to 5 days Discharge Attestations Time Spent in Discharge Care*: greater than 30 min Quality Metrics Clinical Quality Measures During this hospital stay, did patient experience: None 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 of Care Code Acute Assistant Clinical Director for Kevin Arceo Diagnoses CHF (congestive heart failure) I50.9 Acute exacerbation of CHF (congestive heart failure) I50.9 Heart failure type: unspecified Abdominal pain R10.9 COPD (chronic obstructive pulmonary disease) J44.9
--- NOTE | 2020-01-22 15:10 | PC.NURSE ---
Discharge instructions given per the physician's instructions. Patient verbalized understanding of information and did not have any further questions. Extensive teaching was provided for heart failure education. Patient verbalized understanding and compliance. Oxygen has been delivered to bedside. Legal Billing Clerk contacted to schedule transportation home. IV has been removed. No further needs identified. Nurse to continue to monitor.
== END 2020-01-22 13:50 | disposition home or self-care (01) | DRG 292 ==
LOC: ER 15:50 → CSU 17:25
PROVIDERS: Emergency Medicine; Admitting Provider Internal Medicine; PCP Nurse Practitioner; Visit Provider Internal Medicine
DX: I11.0 Hypertensive heart disease with heart failure (principal); I48.20 Chronic atrial fibrillation, unspecified; J44.1 Chronic obstructive pulmonary disease with (acute) exacerbation; I50.33 Acute on chronic diastolic (congestive) heart failure; D64.9 Anemia, unspecified; I25.10 Atherosclerotic heart disease of native coronary artery without angina pectoris; K21.9 Gastro-esophageal reflux disease without esophagitis; E78.5 Hyperlipidemia, unspecified; E03.9 Hypothyroidism, unspecified; Z95.1 Presence of aortocoronary bypass graft; Z87.891 Personal history of nicotine dependence; K80.20 Calculus of gallbladder without cholecystitis without obstruction; Z91.14 Patient's other noncompliance with medication regimen; Z79.01 Long term (current) use of anticoagulants; Z79.51 Long term (current) use of inhaled steroids; Z79.82 Long term (current) use of aspirin
CPT/HCPCS: 12345; 36415; 36600; 71045; 74177; 76705; 80051; 80053; 82810; 83690; 83735; 83880; 83986; 84443; 84484; 85025; 85610; 87426; 93005; 94640; 96375; 99283; J1160; J1940; J2543; J3490; J7512; Q9967

== ENCOUNTER → 2020-03-11 13:05 | Outpatient (BNVA) | payer OTHER, SELFPAY | PROVIDERS: PCP Nurse Practitioner; Visit Provider Surgery | DX: Z20.828 Contact with and (suspected) exposure to other viral communicable diseases (principal) | CPT/HCPCS: 87635 ==

== ENCOUNTER 2020-03-15 05:38 | Day surgery (SDC) | payer OTHER, SELFPAY ==
[2020-03-14 13:54] VITALS: BMI 33.0
[2020-03-15] VITALS (14 sets, daily range): BP systolic 113–153; BP diastolic 51–97; PULSE 67–74; RESP 16–36; TEMP 36.2–36.8; O2SAT 90–99
--- NOTE | 2020-03-15 06:17 | W.PM.OPSFHP ---
Same Day Surgery H&P Indication for Procedure/HPI DATE OF PROCEDURE: March 15, 2020 CHIEF COMPLAINT/INDICATIONFOR SURGICAL PROCEDURE: Problems with gallbladder PREOP DIAGNOSIS: Symptomatic cholelithiasis PLANNED PROCEDRUE: Operation Date: 03/15/20 07:00 Proposed Procedures p Laparoscopic Cholecystectomy 10399 Cholelithiaisis K80.11(Not Applicable) - Osei Choi MD This is a pleasant 64 years old gentleman with multiple medical comorbidities have symptomatic cholelithiasis. Patient was seen and evaluated at my office and prior to that he was seen in the hospital as a consultation for his gallbladder disease. Surgical standpoint of view patient was counseled for laparoscopic cholecystectomy possible open. Patient understands the higher risk of surgery on him and he has been followed up on by cardiology and pulmonology service. Patient was counseled for conservative versus surgical intervention and he elected to proceed with the latter. ROS All systems have been reviewed negative except as per the above or per problem list. Medications/Allergies* Home Medications Medication Instructions Recorded Confirmed Type albuterol sulfate 2 puff INHALATION Q6H PRN 09/25/19 03/15/20 History ipratropium-albuterol 3 ml INHALATION Q6H PRN 09/25/19 03/15/20 History omeprazole 20 mg PO BID 10/14/19 03/15/20 History atorvastatin 20 mg tablet 10 mg PO DAILY 10/27/19 03/15/20 History aspirin [Aspirin Low Dose] See Rx Instructions .ROUTE .COMPLEX 01/19/20 03/14/20 History docusate sodium [Stool Softener] 100 mg PO DAILY 01/19/20 03/15/20 History Allergies/Adverse Reactions Allergy/AdvReac Type Severity Reaction Status Date / Time No Known Allergies Allergy Verified 03/15/20 06:18 Pertinent History/Comorbid Conditions* Medical History (Updated 02/15/20 @ 09:14 by Jackie Don MD) Anemia Atrial fibrillation CHF (congestive heart failure) Last echocardiogram normal EF, grade 2/4 diastolic dysfunction October 2019 COPD (chronic obstructive pulmonary disease) Coronary artery disease GERD (gastroesophageal reflux disease) Hyperlipidemia Hypertension Hypothyroidism Surgical History (Updated 10/14/19 @ 15:13 by Corwin Martini MD) History of coronary artery bypass graft March 2019 [facility] History of knee surgery History of vasectomy Family History (Updated 10/14/19 @ 15:13 by Corwin Martini MD) CAD (coronary artery disease) Social History Smoking and tobacco status: former smoker Quit status (tobacco): has quit using tobacco Year quit tobacco: 2017 - 4 PPD x 52 Years Alcohol intake: never Lives independently: Yes Household members: none Marital status: Legally Current occupational status: retired History of recent travel: No Current gender identity: Male Pertinent Exam Findings alert, oriented x 3, clear to auscultation bilaterally and procedure specific exam findings (Abdominal examination nontender nondistended soft) Recommendations Surgery/Procedure today (Plan of care;After thorough history physical examination and reviewing the chart ,I counseled the patient for laparoscopic cholecystectomy possible open, indications risks including but not limited injury to the common bile duct and other viscera.benefits and alternatives all discussed with the patient, and she did agree to proceed.All questions have been answered and all concerns have been addressed to patient's satisfaction.Rationale was carefully and clearly discussed with the patient.Appropriate informed consent have been reviewed and signed.) 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 of Care Code Acute Bench Shear Operator for Kevin Arceo
--- NOTE | 2020-03-15 06:46 | P.ANESASSM_ITS ---
Pre-Anesthetic Assessment Pre-Anesthetic Assessment: Height/Weight: Height 1.78 m Weight 104.326 kg Preop Diagnosis: Symptomatic cholelithiasis Proposed Procedure: Operation Date: 03/15/20 07:00 Proposed Procedures p Laparoscopic Cholecystectomy 27222 Cholelithiaisis K80.11(Not Applicable) - Osei Choi MD Familial anesthetic complications: None Was Beta Kulwant taken within 24 hours: Yes Last intake: Intake Last Liquid Date 03/15/20 Last Liquid Time 04:30 Last Solid Date 03/14/20 Last Solid Time 22:00 Social: Social History: No alcohol and No tobacco Comment: former smoker (quit 2016) Exam: Pre-Anes Outpt Exam: alert, oriented x 3, clear to auscultation bilaterally and regular rate & rhythm Airway: Cervical ROM: WNL MP: 4 Dentition: Other (edentulous) Pulmonary: Pulmonary: COPD (2 LNC continously, but patient only puts it on at night) CV/HEM: CV/HEM: Afib, CAD (s/p cabg in 2018), CHF, HTN and NM Comments: stopped eliquis a few days ago GI: GI: GERD Metabolic: Metabolic: Hyperlipidemia, Morbid obesity and Thyroid Anesthetic Plan: ASA status: 3 Anesthesia: General Risk of > 500 ml blood loss (7ml/kg in children): No PFSH Anesthesia PFSH: Medical History (Updated 02/15/20 @ 09:14 by Jackie Don MD) Anemia Atrial fibrillation CHF (congestive heart failure) Last echocardiogram normal EF, grade 2/4 diastolic dysfunction October 2019 COPD (chronic obstructive pulmonary disease) Coronary artery disease GERD (gastroesophageal reflux disease) Hyperlipidemia Hypertension Hypothyroidism Surgical History History of coronary artery bypass graft March 2019 [facility] History of knee surgery History of vasectomy Family History Other CAD (coronary artery disease) Social History Smoking and tobacco status: former smoker Quit status (tobacco): has quit using tobacco Year quit tobacco: 2016 PPD x 52 Years Alcohol intake: never Lives independently: Yes Household members: none Marital status: Legally Current occupational status: retired History of recent travel: No Current gender identity: Male Data Anesthesia Cardiac Studies: No Data to Display
[2020-03-15] MEDS: sodium chloride 0.9% 1,000 ML 30 ML IV (06:47)
[2020-03-15] MEDS: heparin 5,000 unit/mL INJ 1 mL 3000 UNIT SUBCUT (06:49)
[2020-03-15] MEDS: lidocaine 2% INJ 20 mL INJECTION (07:22)
--- NOTE | 2020-03-15 08:32 | PM.OP ---
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 Cardiac clearance was obtained. Plan of care; After thorough history physical examination and reviewing the chart ,I counseled the patient for laparoscopic cholecystectomy possible open, indications risks including but not limited injury to the common bile duct and other viscera.benefits and alternatives all discussed with the patient, and she did agree to proceed. All questions have been answered and all concerns have been addressed to patient's satisfaction. Rationale was carefully and clearly discussed with the patient.Appropriate informed consent have been reviewed and signed. Procedure: Patient was identified in the holding area and taken back to the operative suite, placed in supine position intubated by anesthesia . Time-out was done verifying the patient's name/date of /planned procedure and destination after the procedure, all were in agreement. SCDs confirmed to be functioning, preoperative antibiotics administered per protocol, and beta radha protocol was confirmed. Patient was appropriately secured to the table, footboard was applied to the OR table, before prep and drape anesthesia was asked to tilt the table back and forth to make sure that the patient is appropriately secured and she was. Prep and drape of the abdomen was done under the usual sterile technique, followed by that supraumbilical skin incision,skin incision was done by a 15 blade knife, and stay sutures were applied to the fascia and Coon trocar technique was used to enter the abdominal without injuring any abdominal viscera, started by low flow gas insufflation followed by a high flow, started with a 10 mm laparoscope and under direct vision there was no evidence of any injuries, the scope then switched to a 30? ,10 millimeter scope and under direct visualization 5 millimeter trocar was inserted in the epigastric region followed by two 5 mm trocars were inserted in the right upper quadrant that was done after injection of local lidocaine 2% at all incision sites. Gallbladder showed chronic calculus cholecystitis with extensive adhesions and fatty condensation around the gallbladder area and enlarged liver due to fatty component. Patient was then positioned in the head up and tilted to the left Ratcheted forceps were introduced into the lateral most 5mm port and was applied unto the fundus of the gallbladder cephalad and using Bullet forceps the infundibulum of the gallbladder was retracted laterally. Appropriate time was taken to take the adhesions down as the gallbladder was embedded in the liver.Appropriate exposure was achieved. Using [place] forceps then L-hook cautery to dissect the peritoneum overlying the Calot's triangle whihc was then opened medially and laterally until the cystic duct and the cystic artery were skeletonized. Dissection was carried along the body of the gallbladder and after ensuring critical view of safety was identfied. Cystic duct and cystic artery where seen connected to the gallbladder. Clips were applied on the cystic duct towards the common bile duct 1 towards the gallbladder then divided is in sharp scissors, 2 clips were then applied onto the cystic artery and 1 towards the gallbladder and divided by sharp scissors.Additional traversing vessel was clipped as well. Dissection was then carried along of the gallbladder from the gallbladder fossa using cautery as well as sharp dissection with heat energy. The gallbladder then was dissected out from the gallbladder fossa totally , cholecystectomy was then achieved and was placed in an Endo Catch bag and then retrieved from the Coon trocar site under direct visualization using a 5 mm 30? scope through the epigastric trocar, specimen was then passed to the circulating nurse to go for permanent pathology,irrigation and hemostasis was done to the gallbladder fossa after hemostasis was secured, final survey laparoscopy was done that showed no injuries. Suction irrigation was obtained. I elected for completion hemostasis to apply Surgi-Alfonso followed by large piece of Surgicel. The supraumbilical fascial defect was then closed using interrupted PDS sutures using a fascial closure device ;Jem Franz under direct visualization Gas was allowed to deflate,Trocars were then taken out under direct vision there was no evidence of bleeding Specimen was passed to the circulating nurse for permanent pathology. No drains were placed and the supraumbilical incision as well as all trocar sites were closed by by 4-0 Monocryl to approximate the skin edges of the supraumbilical incision, dressing was applied in the form of surgical glue and the patient patient got extubated and was taken to recovery area in a stable condition. Count of sponges,needles and instruments were completed at the end of the procedure I was present for the whole entire procedure.
--- NOTE | 2020-03-15 08:49 | SUR.PHASEI ---
0848 PATIENT TO PACU FROM OR. RR UNLABORED. PLACED ON SIMPLE MASK AT 10L, SPO2 96% 4 INCISIONS TO ABDOMEN, CDI.
--- NOTE | 2020-03-15 09:48 | SUR.PHASEI ---
0945 PATIENT TO OPS. MINIMAL PAIN. TOLERATING ICE CHIPS.
[2020-03-15] MEDS: HYDROcodone-acetaminophen 5-325 mg Tablet 1 TAB PO (10:48)
[2020-03-15] MEDS: ondansetron 2 mg/ML SDV 2 mL 4 MG IVP (11:06)
[2020-03-15] MEDS: metoclopramide 5 mg/mL SDV 2 mL 10 MG IVP (11:21)
--- NOTE | 2020-03-15 11:37 | SUR.PHASEII ---
1025 albuterol neb tx given per anesthesia request and tolerated without any problems
--- NOTE | 2020-03-15 11:56 | P.ANESPOST_ITS ---
Inpatient post-anesthesia follow up: Airway intact: Yes Vital signs: Temperature 98 F Pulse Rate 67 Respiratory Rate 16 Blood Pressure 130/71 Pulse Oximetry 91 Oxygen Delivery Me thod Nasal Cannula Oxygen Flow Rate 3 Fraction of Inspir ed Oxygen Hydration adequate: Yes Nausea and vomiting: No Pain level: 3 Mental status: Baseline (sleepy) Additional Comments: Patient has been HD stable, had some nausea, treated w/ zofran. Patient has been siting upright on edge of bed w/ table for almost an hour. He is satting well on his nasal cannula which he wears at home. He is sleepy and closes his eyes when not being spoken to, but when spoken to, easily awakens and converses with no difficulty. Patient's director of materials states that he is going to stay with the patient overnight and monitor him for any complications and states he feels comfortable bringing the patient home.
== END 2020-03-15 12:10 | disposition home or self-care (01) ==
PROVIDERS: PCP Nurse Practitioner; Visit Provider Surgery
PROC: 0FT44ZZ Resection of Gallbladder, Percutaneous Endoscopic Approach (ICD-10-PCS; CPT 47562; principal; 2020-03-15 07:00)
DX: K80.10 Calculus of gallbladder with chronic cholecystitis without obstruction (principal); K66.0 Peritoneal adhesions (postprocedural) (postinfection); J44.9 Chronic obstructive pulmonary disease, unspecified; Z99.81 Dependence on supplemental oxygen; I48.91 Unspecified atrial fibrillation; I25.10 Atherosclerotic heart disease of native coronary artery without angina pectoris; Z95.1 Presence of aortocoronary bypass graft; I11.0 Hypertensive heart disease with heart failure; I50.9 Heart failure, unspecified; I25.2 Old myocardial infarction; E78.5 Hyperlipidemia, unspecified; E66.01 Morbid (severe) obesity due to excess calories; Z68.33 Body mass index [BMI] 33.0-33.9, adult; Z82.49 Family history of ischemic heart disease and other diseases of the circulatory system; Z87.891 Personal history of nicotine dependence; Z79.82 Long term (current) use of aspirin
CPT/HCPCS: 47562; 12345; 88304; 96365; 96374; 96375; J0131; J0330; J0690; J1100; J1644; J2405; J2704; J2710; J2765; J3010; J3490; J7030

== ENCOUNTER → 2020-04-15 13:55 | Outpatient (BNVA) | payer OTHER, SELFPAY | PROVIDERS: PCP Nurse Practitioner; Visit Provider Surgery | DX: Z12.11 Encounter for screening for malignant neoplasm of colon (principal) | CPT/HCPCS: 87635 ==

== ENCOUNTER 2020-04-20 08:08 | Day surgery (SDC) | payer OTHER, MEDICARE, SELFPAY ==
[2020-04-18 17:33] VITALS: BMI 32.3
[2020-04-20 08:42] VITALS: BP 142/71; PULSE 66; RESP 18; TEMP 36.4; O2SAT 96
[2020-04-20] MEDS: sodium chloride 0.9% 1,000 ML 30 ML IV (08:53)
--- NOTE | 2020-04-20 09:45 | ANES.PREANE2 ---
Pre-Anesthetic Assessment Pre-Anesthetic Assessment: Height/Weight: Height 1.78 m Weight 102.058 kg Temp Pulse Resp BP Pulse Ox 97.5 F L 66 18 142/71 96 04/20/20 08:42 04/20/20 08:42 04/20/20 08:42 04/20/20 08:42 04/20/20 08:42 Preop Diagnosis: Screening colonoscopy Proposed Procedure: Operation Date: 04/20/20 09:30 Proposed Procedures p Colonoscopy 15257 Z12.11(Not Applicable) - Osei Choi MD Familial anesthetic complications: None Was Beta Kulwant taken within 24 hours: Yes Last intake: Intake Last Liquid Date 04/20/20 Last Liquid Time 08:00 Last Solid Date 04/19/20 Last Solid Time 09:00 Social: Social History: No alcohol and No tobacco Exam: Pre-Anes Outpt Exam: alert, oriented x 3, clear to auscultation bilaterally and regular rate & rhythm Airway: Cervical ROM: WNL MP: 3 Dentition: False Additional comments: full kimball Pulmonary: Pulmonary: COPD (2 L NC at home) CV/HEM: CV/HEM: Afib, CAD, CHF and HTN Comments: CABG in 2019 - doing well since operation, no chest pains, baseline SOB GI: GI: GERD Metabolic: Metabolic: Hyperlipidemia, Morbid obesity and Thyroid Anesthetic Plan: ASA status: 4 Anesthesia: MAC Risk of > 500 ml blood loss (7ml/kg in children): No Meds/Allergies Current Medications: Current Medications Generic Name Dose Route Start Last Admin Trade Name Freq PRN Reason Stop Dose Admin Sodium Chloride 1,000 mls @ 30 ml s/hr 04/20/20 08:45 04/20/20 08:53 Sodium Chloride 0.9% IV 04/21/20 08:44 30 mls/hr .Q24H JUAN DAVID Administration PFSH Anesthesia PFSH: Medical History (Updated 03/25/20 @ 07:39 by Osei Choi MD) Anemia Atrial fibrillation CHF (congestive heart failure) Last echocardiogram normal EF, grade 2/4 diastolic dysfunction October 2019 COPD (chronic obstructive pulmonary disease) Coronary artery disease GERD (gastroesophageal reflux disease) Hyperlipidemia Hypertension Hypothyroidism Surgical History History of coronary artery bypass graft March 2019 [facility] History of knee surgery History of vasectomy Family History Other CAD (coronary artery disease) Social History Smoking and tobacco status: former smoker Quit status (tobacco): has quit using tobacco Year quit tobacco: 2016 PPD x 52 Years Alcohol intake: never Lives independently: Yes Household members: none Marital status: Legally Current occupational status: retired History of recent travel: No Current gender identity: Male Data Anesthesia Cardiac Studies: No Data to Display
--- NOTE | 2020-04-20 10:21 | W.PM.OPSUD ---
Surgery/Procedure H&P Update DATE OF PROCEDURE: April 20, 2020 DATE H&P PERFORMED: 03/24/20 H&P UPDATE INFORMATION: I have reviewed H&P completed within last 30 days, I have examined patient prior to procedure and No changes to prior documentation PREOP DIAGNOSIS: Screening colonoscopy PRIMARY INDICATION FOR PROCEDURE: The same PLANNED PROCEDURE: Operation Date: 04/20/20 09:30 Proposed Procedures p Colonoscopy 59431 Z12.11(Not Applicable) - Osei Choi MD
[2020-04-20 11:41] VITALS: BP 101/57; PULSE 70; RESP 16; TEMP 36.2; O2SAT 96
[2020-04-20 11:55] VITALS: BP 133/71; PULSE 65; RESP 16; O2SAT 96
--- NOTE | 2020-04-20 21:10 | ANE.PACU2 ---
Inpatient post-anesthesia follow up: Airway intact: Yes Vital signs: Temperature 97.1 F Pulse Rate 65 Respiratory Rate 16 Blood Pressure 133/71 Pulse Oximetry 96 Oxygen Delivery Me thod Room Air Oxygen Flow Rate Fraction of Inspir ed Oxygen Hydration adequate: Yes Nausea and vomiting: No Pain level: 1 Mental status: Baseline
== END 2020-04-20 12:28 | disposition home or self-care (01) ==
PROVIDERS: PCP Nurse Practitioner; Visit Provider Surgery
PROC: 0DJD8ZZ Inspection of Lower Intestinal Tract, Via Natural or Artificial Opening Endoscopic (ICD-10-PCS; CPT 45378; principal; 2020-04-20 09:30)
DX: Z12.11 Encounter for screening for malignant neoplasm of colon (principal); K63.5 Polyp of colon; J44.9 Chronic obstructive pulmonary disease, unspecified; I48.91 Unspecified atrial fibrillation; I25.10 Atherosclerotic heart disease of native coronary artery without angina pectoris; I11.0 Hypertensive heart disease with heart failure; I50.9 Heart failure, unspecified; K21.9 Gastro-esophageal reflux disease without esophagitis; E78.5 Hyperlipidemia, unspecified; E66.01 Morbid (severe) obesity due to excess calories; Z68.32 Body mass index [BMI] 32.0-32.9, adult; E03.9 Hypothyroidism, unspecified; Z95.1 Presence of aortocoronary bypass graft; Z87.891 Personal history of nicotine dependence
CPT/HCPCS: 12345; 45385; J2704; J7030

== ENCOUNTER 2020-05-14 21:33 | Emergency (ER) | payer OTHER, MEDICARE, SELFPAY ==
[2020-05-14 21:44] VITALS: BP 153/75; PULSE 75; RESP 14; TEMP 36.5; O2SAT 97; BMI 32.3
--- NOTE | 2020-05-14 21:58 | ED_ITS ---
HPI - Wound/Laceration General: Chief Complaint: Wound/Laceration Stated Complaint: WIRE IN STOMACH Time Seen by Provider: 05/14/20 21:40 Source: patient Mode of arrival: ambulatory Limitations: no limitations History of Present Illness: HPI narrative: 64-year-old male who states he had bypass surgery 1 year ago states that he had a wire come out the stomach that he pulled out this evening. He pulled out roughly 8 inches of a small blue wire. States that this was a pacing wire. He denies any pain denies any chest pain or abdominal pain. He denies any bleeding at the site. Denies any worsening improving factors. Associated symptoms: Denies chills, fever(s), nausea or vomiting Review of Systems Const: Denies: fever(s), chills, body aches or change in appetite Eyes: Denies: blurry vision or eye discomfort ENMT: Denies: throat pain or dental pain Card: Denies: chest pain Resp: Denies: dyspnea GI: Denies: abdominal pain, nausea, vomiting or diarrhea : Denies: dysuria Musc: Denies: neck pain or back pain Skin/Breast: Denies: rash Neuro: Denies: headache(s) Psych: Denies: depression Chavez/Lymph: Denies: easy bruising All/Imm: Denies: urticaria PFSH ED PFSH: Medical History Anemia Atrial fibrillation CHF (congestive heart failure) Last echocardiogram normal EF, grade 2/4 diastolic dysfunction October 2019 Colon polyps COPD (chronic obstructive pulmonary disease) Coronary artery disease GERD (gastroesophageal reflux disease) Hyperlipidemia Hypertension Hypothyroidism Surgical History History of coronary artery bypass graft March 2019 [facility] History of knee surgery History of vasectomy Family History Other CAD (coronary artery disease) Social History Smoking and tobacco status: former smoker Quit status (tobacco): has quit using tobacco Year quit tobacco: 2017 - PPD x 52 Years Alcohol intake: never Lives independently: Yes Household members: none Marital status: Legally Current occupational status: retired History of recent travel: No Current gender identity: Male Physical Exam Const: COMMON NORMALS: no acute distress, patient oriented x3 and healthy appearing HENMT: COMMON NORMALS: normocephalic and atraumatic HEAD & SCALP: normocephalic and atraumatic Eye: COMMON NORMALS: Equal, round and reactive pupils present and EOMs intact bilaterally PUPIL: Yes Equal, round and reactive pupils present Neck/C-Spine: COMMON NORMALS: full ROM and supple Chest: COMMONS NORMALS: normal inspection of the chest and normal palpation of entire chest wall Resp: COMMON NORMALS: normal respiratory effort, No retractions, No use of accessory muscles and clear to auscultation bilaterally AUSCULTATION: clear to auscultation bilaterally Cardio: COMMON NORMALS: regular rate, regular rhythm and No murmurs present (Cardio) RATE: regular rate RHYTHM: regular rhythm GI: COMMON NORMALS: Normal to inspection, nondistended, normoactive bowel sounds present, Soft to palpation, non-tender and no masses PALPATION: Yes Soft to palpation OTHER: Very small puncture wound to anterior abdomen Extremity: COMMON NORMALS: normal to inspection and full ROM Neuro: COMMON NORMALS: patient oriented x3, moves all extremities and no focal motor deficits Psych: COMMON NORMALS: mental status grossly normal, Normal thought process present and cooperative THOUGHT PROCESS: Normal thought process present Skin: COMMON NORMALS: no rashes or lesions noted and no wounds GENERAL SKIN EXAM: no rashes or lesions noted Course Vital Signs: Vital signs: Vital Signs Temperature 97.7 F 05/14/20 21:44 Pulse Rate 75 05/14/20 21:44 Respiratory Rate 14 05/14/20 21:44 Blood Pressure 153/75 05/14/20 21:44 Pulse Oximetry 97 05/14/20 21:44 MDM - Wound/Laceration MDM Narrative: Medical decision making narrative: Patient presents here after pulling his epicardial pacing lead from his stomach. I spoke to Dr. Arboleda and states that he had a cut it flush with the skin and that it is fine if patient pulled it out on his own. He did not recommend any further imaging. He is to follow-up and return if worsening. Discharge Plan Discharge Patient Disposition: Home Clinical Impression: Foreign body (FB) in soft tissue Condition: Stable Prescriptions: No Action aspirin [Adult Low Dose Aspirin] 81 mg tablet,delayed release (DR/EC) 81 mg PO DAILY RF: 0 cholecalciferol (vitamin D3) 25 mcg (1,000 unit) capsule 25 mcg PO DAILY RF: 0 budesonide-formoterol [Symbicort] 160-4.5 mcg/actuation HFA aerosol inhaler 2 puff INHALATION BID Qty: 10.2 RF: 3 Spiriva Respimat 2.5 mcg/actuation mist 2 inh INHALATION QAM Qty: 4 RF: 3 ipratropium-albuterol 0.5 mg-3 mg(2.5 mg base)/3 mL Solution For Nebulization 3 ml INHALATION Q6H PRN (Reason: Shortness Of Breath) RF: 0 albuterol sulfate 90 mcg/actuation Hfa Aerosol Inhaler 2 puff INHALATION Q6H PRN (Reason: Shortness Of Breath) RF: 0 atorvastatin 20 mg tablet 10 mg PO DAILY RF: 0 omeprazole 20 mg Capsule,Delayed Release(Dr/Ec) 20 mg PO BID RF: 0 Eliquis 5 mg Tablet 5 mg PO BID Qty: 60 RF: 0 Hold Instructions: Resume on 04/25/20. furosemide [Lasix] 40 mg tablet 40 mg PO DAILY Qty: 30 RF: 0 potassium chloride 10 mEq tablet extended release 10 meq PO DAILY Qty: 30 RF: 0 docusate sodium [Stool Softener] 100 mg Capsule 100 mg PO DAILY RF: 0 digoxin 250 mcg (0.25 mg) Tablet 250 mcg PO DAILY Qty: 30 RF: 0 levothyroxine [Levoxyl] 100 mcg Tablet 100 mcg PO DAILY Qty: 30 RF: 0 metoprolol tartrate 50 mg Tablet 75 mg PO BID Qty: 90 RF: 0 Discharge Orders: Discharge ED (Routine); Ordered 05/14/20 Ordered By: Liz Fuentes Referrals: Isela Gipson, SUPERVISOR [employer] [Primary Care Provider] - Discharge Diet: Advance as tolerated Discharge Activity: Resume usual activity Patient Instructions: Soft Tissue Foreign Body (ED) 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 of Care Code ED Saw Grinder for Chg Fwd Exam Comprehensive
== END 2020-05-14 22:12 | disposition home or self-care (01) ==
PROVIDERS: Emergency Provider Emergency Medicine; PCP Nurse Practitioner
DX: M79.5 Residual foreign body in soft tissue (principal); Z79.82 Long term (current) use of aspirin; Z79.01 Long term (current) use of anticoagulants; I48.91 Unspecified atrial fibrillation; I11.0 Hypertensive heart disease with heart failure; I50.9 Heart failure, unspecified; J44.9 Chronic obstructive pulmonary disease, unspecified; I25.10 Atherosclerotic heart disease of native coronary artery without angina pectoris; E78.5 Hyperlipidemia, unspecified; Z95.1 Presence of aortocoronary bypass graft; Z87.891 Personal history of nicotine dependence
CPT/HCPCS: 12345; 99281

== ENCOUNTER 2020-07-24 02:45 | Emergency (ER) | payer OTHER, MEDICARE, SELFPAY ==
[2020-07-24] VITALS (8 sets, daily range): BP systolic 131–155; BP diastolic 48–83; PULSE 84–104; RESP 17–30; TEMP 36.7; O2SAT 85–99; BMI 32.7
--- NOTE | 2020-07-24 03:04 | XRR_ITS ---
PROCEDURE INFORMATION: Exam: XR Chest, 1 View Exam date and time: 07/24/2020 3:13 AM Age: 64 years old Clinical indication: Dyspnea; Prior surgery; Surgery date: 6+ months; Surgery type: Cabg; Additional info: SOB TECHNIQUE: Imaging protocol: XR of the chest Views: 1 view. COMPARISON: CR XR chest 1V portable [id number] 01/19/2020 11:38 AM FINDINGS: Lungs: There is a background of emphysema. New there are strandy and linear opacities present in the mid lower hemithoraces likely representing chronic parenchymal and pleural scarring. Strandy opacity seen in the retrocardiac region may represent atelectasis. However, superimposed bilateral basilar interstitial infiltrates and left basilar consolidation cannot be entirely excluded. Pleural spaces: Unremarkable. No pleural effusion. No pneumothorax. Heart/Mediastinum: Unremarkable. No cardiomegaly. Bones/joints: Unremarkable. XR/XR chest 1V portable [id number] IMPRESSION: Background of emphysema and parenchymal and pleural scarring. Superimposed bilateral basilar infiltrates and pneumonia cannot be entirely excluded however.
--- NOTE | 2020-07-24 03:05 | ECG_ITS ---
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 Measurements Intervals [place] Rate: 95 P: 106 CO: 173 QRS: -82 QRSD: 132 T: 72 QT: 357 QTc: 450 Interpretive Statements SINUS RHYTHM RIGHT BUNDLE BRANCH BLOCK [120+ ms QRS DURATION, UPRIGHT V1, 40+ ms S IN I/aVL/V4/V5/V6] INFERIOR MYOCARDIAL INFARCTION [40+ ms Q WAVE AND/OR ST/T ABNORMALITY IN II/aVF], OF INDETERMINATE AGE Compared to ECG 01/19/2020 17:38:28 Myocardial infarct finding now present T-wave abnormality no longer present Possible ischemia no longer present Electronically Signed On 07-24-2020 18:38:08 AUTO SERVICE WRITER by Fatou Bruce M.D. [id number]
[2020-07-24 03:14] LABS: Basophils % 0.2 %; Eosinophils % 0.3 %; Hematocrit 40.3 % (42.0-52.0); Hemoglobin 11.9 g/dL (11.7-16.6); Lymphocytes # 0.8 10^3/uL (0.8-4.8); Lymphocytes % 9.1 %; Mean Corpuscular HGB Conc 29.5 g/dL (30.0-36.0); Mean Corpuscular Hemoglobin 22.5 pg (28.0-34.0); Mean Platelet Volume 10.1 fL (7.4-10.4); Monocytes # 0.7 10^3/uL (0.2-0.9); Neutrophils # 7.48 10^3/uL (1.8-7.7); Neutrophils % 82.2 %; Nucleated Red Blood Cells % 0 %; Platelet Count 227 10^3/cmm (130-400); Red Cell Distribution Width 18.5 % (12.1-15.1); White Blood Count 9.1 10^3/uL (4.0-10.0)
[2020-07-24 03:24] LABS: ABG PCO2 36.6 mmHg (35-45); ABG PH Result 7.41 (7.35-7.45); Arterial Blood Gas Hematocrit 36.5 % (42-52); Base Excess ABG -0.9 mmol/L (-2.0-2.0); Blood Gas Sample Site Brachial, right; Blood Gas Sample Type Arterial; Carboxyhemoglobin 1.3 %THgb (0.4-20.1); HCO3 ABG 23.4 mmol/L (22-26); HGB O2 Sat 93.5 % (95-100); Methemoglobin 0.8 % (0.4-1.5); Oxygen Device NC; PO2 ABG 74.3 mmHg (80.0-100.0); Total Hemoglobin 11.9 g/dL (14-18)
[2020-07-24 03:29] LABS: D Dimer 0.37 ug/mIFEU (0-0.59)
[2020-07-24 03:36] LABS: Lactic Sepsis W/Reflex 1.5 mmol/L (0.5-2.2)
[2020-07-24] MEDS: FUROsemide 10 mg/mL SDV 10mL 60 MG IVP (03:36)
[2020-07-24 03:38] LABS: Troponin(5th) Baseline 20 ng/L (0-15)
[2020-07-24 03:42] LABS: Influenza A by IFA Negative (Negative); Influenza B by IFA Negative (Negative); SARS Covid-2 Antigen Negative (Negative)
[2020-07-24 03:47] LABS: Alanine Aminotransferase 18 U/L (0-41); Albumin Level 4.3 g/dL (3.5-5.2); Alkaline Phosphatase 100 IU/L (40-130); Anion Gap 15.9 (5-19); Aspartate Amino Transferase 20 U/L (0-40); Blood Urea Nitrogen 20 mg/dL (8-23); Calcium 8.5 mg/dL (8.5-10.5); Carbon Dioxide 25 mmol/L (22-29); Chloride 98 mmol/L (98-107); Globulin 3.1 g/dL (1.3-4.6); Glomerular Filtration Rate 67.2 mL/min (90-130); Glucose 102 mg/dL (65-115); NT Pro B Type Natriuretic Pept 1249 pg/mL (0-125); Osmolality Calculated 283 mOsm/kg (285-295); Potassium 3.9 mmol/L (3.5-5.1); Sodium 135 mmol/L (136-145); Total Protein 7.4 g/dL (6.6-8.7)
[2020-07-24 03:47] LABS: Digoxin 0.7 ng/mL (0.6-1.2)
[2020-07-24] MEDS: albuterol 8 gm MDI 4 PUFF INHALATION (04:17)
--- NOTE | 2020-07-24 04:51 | W.ED.SOB ---
HPI - SOB/Dyspnea General: Chief Complaint: Shortness of Breath/Dyspnea Stated Complaint: cough/sob Time Seen by Provider: 07/24/20 03:03 History of Present Illness: HPI Narrative: 64-year-old gentleman with a history of COPD and CHF. He presents with cough and shortness of breath for the last couple of days, acutely worse this morning. He wears oxygen at 2 L, and his saturations were low with coughing and wheezing at home. He notes that he has not taken his Lasix for the past few days because he has not been feeling well. He states I did not want a get dehydrated . MD elicited complaint: shortness of breath and cough Pertinent past history: COPD and congestive heart failure Onset (ago): day(s) Timing: intermittent and progressively worsening Severity: moderate Exacerbating factors: lying flat and exertion Relieving factors: oxygen Known history of: COPD and congestive heart failure Associated symptoms: Deny abdominal pain, chest congestion, chest pain or fever(s) Review of Systems Const: Reports: night sweats; Denies: fever(s), chills or change in weight Card: Denies: chest pain Resp: Denies: chest congestion GI: Denies: abdominal pain Neuro: Denies: headache(s), sensory changes, difficulty walking or confusion PFSH ED PFSH: Medical History Anemia Atrial fibrillation CHF (congestive heart failure) Last echocardiogram normal EF, grade 2/4 diastolic dysfunction October 2019 Colon polyps COPD (chronic obstructive pulmonary disease) Coronary artery disease GERD (gastroesophageal reflux disease) Hyperlipidemia Hypertension Hypothyroidism Surgical History History of coronary artery bypass graft March 2019 [facility] History of knee surgery History of vasectomy Family History Other CAD (coronary artery disease) Social History Smoking and tobacco status: former smoker Quit status (tobacco): has quit using tobacco Year quit tobacco: 2017 - PPD x 52 Years Smoking risk assessment/counseling performed?: No Alcohol intake: never Counseling given: No Counseling given: No Lives independently: Yes Household members: none Marital status: Legally Current occupational status: retired History of recent travel: No Current gender identity: Male Physical Exam Const: COMMON NORMALS: no acute distress and patient oriented x3 HENMT: COMMON NORMALS: normocephalic HEAD & SCALP: normocephalic Chest: COMMONS NORMALS: normal inspection of the chest Resp: COMMON NORMALS: No use of accessory muscles EFFORT & INSPECTION: Yes tachypneic, Yes Actively coughing and Yes uses accessory muscles AUSCULTATION: rales, wheezes and diminished lung sounds GI: COMMON NORMALS: Normal to inspection, nondistended, normoactive bowel sounds present Extremity: GENERAL: Yes edema Neuro: COMMON NORMALS: patient oriented x3 Course Vital Signs: Vital signs: Vital Signs Temperature 98.1 F 07/24/20 02:59 Pulse Rate 86 07/24/20 04:45 Respiratory Rate 18 07/24/20 04:45 Blood Pressure 131/48 07/24/20 04:45 Pulse Oximetry 99 07/24/20 04:45 MDM - SOB/Dyspnea MDM Narrative: Medical decision making narrative: 4-year-old male with a history of COPD and CHF. He is wheezing, he has some rales on exam. His saturations of 93 to 98% on 2 to 4 L. pH normal blood gas. He does appear to be retaining over baseline. He had stopped taking his Lasix. He appears to need some diuresis, although his BNP is not terribly high, and has been higher in the past. His troponin is at baseline or below. His EKG does not show any significant ST changes. His hemoglobin is 12 with a white blood cell count of 9. Chest x-ray shows some bilateral infiltrates that is likely fluid. His rapid Covid as well as flu were negative. We will give him a PCR Covid test, treated with steroids, DuoNeb treatments, and doubling his Lasix for 2 days. He knows to return for any worsening symptoms. Lab Data: Labs: Lab Results 07/24/20 07/24/20 07/24/20 Range/Units 03:05 03:05 03:05 WBC 9.1 (4.0-10.0) 10^3/ uL RBC 5.30 (4.1-5.3) 10^6/u L Hgb 11.9 (11.7-16.6) g/dL Hct 40.3 L (42.0-52.0) % MCV 76.0 L (80-94) fL MCH 22.5 L (28.0-34.0) pg MCHC 29.5 L (30.0-36.0) g/dL RDW 18.5 H (12.1-15.1) % Plt Count 227 (130-400) 10^3/c mm MPV 10.1 (7.4-10.4) fL Neut % (Auto) 82.2 % Lymph % (Auto) 9.1 % [place] % (Auto) 8.0 % Eos % (Auto) 0.3 % Baso % (Auto) 0.2 % Neut # (Auto) 7.48 (1.8-7.7) 10^3/u L Lymph # (Auto) 0.8 (0.8-4.8) 10^3/u L [place] # (Auto) 0.7 (0.2-0.9) 10^3/u L Eos # (Auto) 0.0 (0.0-0.8) 10^3/u L Baso # (Auto) 0.0 (0.0-0.1) 10^3/u L Nucleated RBC % (a uto) 0 % Nucleated RBCs # 0.0 /100WBC PT 15.60 H (12.1-14.9) SECO NDS INR 1.20 (0.8-1.2) D-Dimer 0.37 (0-0.59) ug/mIFE U Specimen Type Sample Site ABG pH (7.35-7.45) ABG pCO2 (35-45) mmHg ABG pO2 (80.0-100.0) mmH g ABG HCO3 (22-26) mmol/L ABG Base Excess (-2.0-2.0) mmol/ L Derek Test Hematocrit (42-52) % Hgb O2 Saturation (95-100) % Carboxyhemoglobin (0.4-20.1) %THgb Methemoglobin (0.4-1.5) % Total Hemoglobin (14-18) g/dL O2 Delivery Device O2 Liters/Min % FiO2 % Certified Personal Chef ID Sodium 135 L (136-145) mmol/L Potassium 3.9 (3.5-5.1) mmol/L Chloride 98 (98-107) mmol/L Carbon Dioxide 25 (22-29) mmol/L Anion Gap 15.9 (5-19) BUN 20 (8-23) mg/dL Creatinine 1.1 (0.7-1.2) mg/dL GFR Calculation 67.2 L (90-130) mL/min Glucose 102 (65-115) mg/dL Calculated Osmolal ity 283 L (285-295) mOsm/k g Lactic Acid (0.5-2.2) mmol/L Calcium 8.5 (8.5-10.5) mg/dL Total Bilirubin 1.0 (0.15-1.2) mg/dL AST 20 (0-40) U/L ALT 18 (0-41) U/L Alkaline Phosphata se 100 (40-130) IU/L Troponin T Baselin e (0-15) ng/L NT-Pro-B Natriuret Pep 1249 H (0-125) pg/mL Total Protein 7.4 (6.6-8.7) g/dL Albumin 4.3 (3.5-5.2) g/dL Globulin 3.1 (1.3-4.6) g/dL Digoxin (0.6-1.2) ng/mL Influenza Type A A g (Negative) Influenza Type B A g (Negative) SARS-CoV-2 Ag (Rap id) (Negative) 07/24/20 07/24/20 07/24/20 Range/Units 03:05 03:05 03:12 WBC (4.0-10.0) 10^3/ uL RBC (4.1-5.3) 10^6/u L Hgb (11.7-16.6) g/dL Hct (42.0-52.0) % MCV (80-94) fL MCH (28.0-34.0) pg MCHC (30.0-36.0) g/dL RDW (12.1-15.1) % Plt Count (130-400) 10^3/c mm MPV (7.4-10.4) fL Neut % (Auto) % Lymph % (Auto) % [place] % (Auto) % Eos % (Auto) % Baso % (Auto) % Neut # (Auto) (1.8-7.7) 10^3/u L Lymph # (Auto) (0.8-4.8) 10^3/u L [place] # (Auto) (0.2-0.9) 10^3/u L Eos # (Auto) (0.0-0.8) 10^3/u L Baso # (Auto) (0.0-0.1) 10^3/u L Nucleated RBC % (a uto) % Nucleated RBCs # /100WBC PT (12.1-14.9) SECO NDS INR (0.8-1.2) D-Dimer (0-0.59) ug/mIFE U Specimen Type Arterial Sample Site Brachial, right ABG pH 7.41 (7.35-7.45) ABG pCO2 36.6 (35-45) mmHg ABG pO2 74.3 L (80.0-100.0) mmH g ABG HCO3 23.4 (22-26) mmol/L ABG Base Excess -0.9 (-2.0-2.0) mmol/ L Derek Test N/a Hematocrit 36.5 L (42-52) % Hgb O2 Saturation 93.5 L (95-100) % Carboxyhemoglobin 1.3 (0.4-20.1) %THgb Methemoglobin 0.8 (0.4-1.5) % Total Hemoglobin 11.9 L (14-18) g/dL O2 Delivery Device Nc O2 Liters/Min 4.0 % FiO2 38.0 % Certified Personal Chef ID Jlg Sodium (136-145) mmol/L Potassium (3.5-5.1) mmol/L Chloride (98-107) mmol/L Carbon Dioxide (22-29) mmol/L Anion Gap (5-19) BUN (8-23) mg/dL Creatinine (0.7-1.2) mg/dL GFR Calculation (90-130) mL/min Glucose (65-115) mg/dL Calculated Osmolal ity (285-295) mOsm/k g Lactic Acid 1.5 (0.5-2.2) mmol/L Calcium (8.5-10.5) mg/dL Total Bilirubin (0.15-1.2) mg/dL AST (0-40) U/L ALT (0-41) U/L Alkaline Phosphata se (40-130) IU/L Troponin T Baselin e 20 H (0-15) ng/L NT-Pro-B Natriuret Pep (0-125) pg/mL Total Protein (6.6-8.7) g/dL Albumin (3.5-5.2) g/dL Globulin (1.3-4.6) g/dL Digoxin (0.6-1.2) ng/mL Influenza Type A A g (Negative) Influenza Type B A g (Negative) SARS-CoV-2 Ag (Rap id) (Negative) 07/24/20 07/24/20 07/24/20 Range/Units 03:15 03:15 03:20 WBC (4.0-10.0) 10^3/ uL RBC (4.1-5.3) 10^6/u L Hgb (11.7-16.6) g/dL Hct (42.0-52.0) % MCV (80-94) fL MCH (28.0-34.0) pg MCHC (30.0-36.0) g/dL RDW (12.1-15.1) % Plt Count (130-400) 10^3/c mm MPV (7.4-10.4) fL Neut % (Auto) % Lymph % (Auto) % [place] % (Auto) % Eos % (Auto) % Baso % (Auto) % Neut # (Auto) (1.8-7.7) 10^3/u L Lymph # (Auto) (0.8-4.8) 10^3/u L [place] # (Auto) (0.2-0.9) 10^3/u L Eos # (Auto) (0.0-0.8) 10^3/u L Baso # (Auto) (0.0-0.1) 10^3/u L Nucleated RBC % (a uto) % Nucleated RBCs # /100WBC PT (12.1-14.9) SECO NDS INR (0.8-1.2) D-Dimer (0-0.59) ug/mIFE U Specimen Type Sample Site ABG pH (7.35-7.45) ABG pCO2 (35-45) mmHg ABG pO2 (80.0-100.0) mmH g ABG HCO3 (22-26) mmol/L ABG Base Excess (-2.0-2.0) mmol/ L Derek Test Hematocrit (42-52) % Hgb O2 Saturation (95-100) % Carboxyhemoglobin (0.4-20.1) %THgb Methemoglobin (0.4-1.5) % Total Hemoglobin (14-18) g/dL O2 Delivery Device O2 Liters/Min % FiO2 % Certified Personal Chef ID Sodium (136-145) mmol/L Potassium (3.5-5.1) mmol/L Chloride (98-107) mmol/L Carbon Dioxide (22-29) mmol/L Anion Gap (5-19) BUN (8-23) mg/dL Creatinine (0.7-1.2) mg/dL GFR Calculation (90-130) mL/min Glucose (65-115) mg/dL Calculated Osmolal ity (285-295) mOsm/k g Lactic Acid (0.5-2.2) mmol/L Calcium (8.5-10.5) mg/dL Total Bilirubin (0.15-1.2) mg/dL AST (0-40) U/L ALT (0-41) U/L Alkaline Phosphata se (40-130) IU/L Troponin T Baselin e (0-15) ng/L NT-Pro-B Natriuret Pep (0-125) pg/mL Total Protein (6.6-8.7) g/dL Albumin (3.5-5.2) g/dL Globulin (1.3-4.6) g/dL Digoxin 0.7 (0.6-1.2) ng/mL Influenza Type A A g Negative (Negative) Influenza Type B A g Negative (Negative) SARS-CoV-2 Ag (Rap id) Negative (Negative) Discharge Plan Discharge Patient Disposition: Home Clinical Impression: Acute exacerbation of chronic obstructive airways disease Heart failure with preserved ejection fraction Qualifiers: Heart failure chronicity: acute Qualified Code(s): I50.31 - Acute diastolic (congestive) heart failure Condition: Stable Prescriptions: New Medrol (Joe) 4 mg tablets,dose pack See Rx Instructions .ROUTE .COMPLEX Qty: 21 RF: 0 doxycycline hyclate 100 mg capsule 100 mg PO BID 7 Days Qty: 14 RF: 0 No Action aspirin [Adult Low Dose Aspirin] 81 mg tablet,delayed release (DR/EC) 81 mg PO DAILY RF: 0 cholecalciferol (vitamin D3) 25 mcg (1,000 unit) capsule 25 mcg PO DAILY RF: 0 Spiriva Respimat 2.5 mcg/actuation mist 2 inh INHALATION QAM RF: 0 budesonide-formoterol [Symbicort] 160-4.5 mcg/actuation HFA aerosol inhaler 2 puff INHALATION BID Qty: 10.2 RF: 3 ipratropium-albuterol 0.5 mg-3 mg(2.5 mg base)/3 mL Solution For Nebulization 3 ml INHALATION Q6H PRN (Reason: Shortness Of Breath) RF: 0 albuterol sulfate 90 mcg/actuation Hfa Aerosol Inhaler 2 puff INHALATION Q6H PRN (Reason: Shortness Of Breath) RF: 0 atorvastatin 20 mg tablet 10 mg PO DAILY RF: 0 omeprazole 20 mg Capsule,Delayed Release(Dr/Ec) 20 mg PO BID RF: 0 Eliquis 5 mg Tablet 5 mg PO BID Qty: 60 RF: 0 Hold Instructions: Resume on 04/25/20. furosemide [Lasix] 40 mg tablet 40 mg PO DAILY Qty: 30 RF: 0 potassium chloride 10 mEq tablet extended release 10 meq PO DAILY Qty: 30 RF: 0 docusate sodium [Stool Softener] 100 mg Capsule 100 mg PO DAILY RF: 0 digoxin 250 mcg (0.25 mg) Tablet 250 mcg PO DAILY Qty: 30 RF: 0 levothyroxine [Levoxyl] 100 mcg Tablet 100 mcg PO DAILY Qty: 30 RF: 0 metoprolol tartrate 50 mg Tablet 75 mg PO BID Qty: 90 RF: 0 Discharge Orders: Discharge ED (Routine); Ordered 07/24/20 Ordered By: Boubacar Hall Referrals: Isela Gipson FNP [Primary Care Provider] - 1-3 days Discharge Diet: Advance as tolerated Discharge Activity: Increase activity as tolerated Patient Instructions: Pulmonary Edema (ED), Chronic Obstructive Pulmonary Disease (ED) Activity Restrictions/Additional Instructions: Double your Lasix dose for the next 3 days, then back to normal dosage. Use your breathing treatments every 4 hours while awake for the next 48 hours, then as needed. Other medications as directed. Return for worsening shortness of breath despite treatment, fever greater than 100 despite 1-2 doses of antibiotics, chest discomfort, other concerning symptoms. 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 of Care Code ED Housekeeper Home for Chg Fwd Exam Detailed
[2020-07-24] MEDS: ipratropium-albuterol 3 mL Neb INHALATION (05:14)
== END 2020-07-24 05:32 | disposition home or self-care (01) ==
PROVIDERS: Emergency Provider Emergency Medicine; PCP Nurse Practitioner
DX: J44.1 Chronic obstructive pulmonary disease with (acute) exacerbation (principal); I11.0 Hypertensive heart disease with heart failure; I50.31 Acute diastolic (congestive) heart failure; Z79.82 Long term (current) use of aspirin; Z79.01 Long term (current) use of anticoagulants; I25.10 Atherosclerotic heart disease of native coronary artery without angina pectoris; E78.5 Hyperlipidemia, unspecified; Z87.891 Personal history of nicotine dependence
CPT/HCPCS: 36600; 71045; 80053; 80162; 82805; 83605; 83880; 84484; 85025; 85378; 85610; 87426; 87804; 93005; 94640; 96374; 96375; 99284; J1940; J2930; J3535

== ENCOUNTER 2020-12-01 11:00 | Outpatient (CLI) | payer OTHER, MEDICARE, SELFPAY | END 2020-12-01 11:01 | disposition home or self-care (01) | LOC: SLEEP 12-02 09:24 | PROVIDERS: PCP Nurse Practitioner; Visit Provider Nurse Practitioner | DX: J96.11 Chronic respiratory failure with hypoxia (principal) | CPT/HCPCS: 94762 ==

== ENCOUNTER 2021-03-27 18:36 | Inpatient (IN) | payer OTHER, MEDICARE, SELFPAY ==
[2021-03-27] VITALS (7 sets, daily range): BP systolic 129–172; BP diastolic 63–79; PULSE 0–98; RESP 15–21; TEMP 36.7; O2SAT 88–100
--- NOTE | 2021-03-27 18:47 | XRR_ITS ---
PROCEDURE INFORMATION: Exam: XR Chest Exam date and time: 03/27/2021 6:47 PM Age: 65 years old Clinical indication: Chest wall pain; Prior surgery; Surgery date: 6+ months; Surgery type: Open heart; Additional info: Cp TECHNIQUE: Imaging protocol: XR of the chest. Views: 1 view. Total images: 1 COMPARISON: CR XR chest 1V portable [id number] 07/24/2020 3:04 AM FINDINGS: Lungs: Advanced centrilobular emphysema. Senile fibrosis. Chronic atelectasis and/or parenchymal scar left lung base. No visible active interstitial or alveolar airspace disease. Pleural spaces: No visible pleural effusion. No pneumothorax. Heart/Mediastinum: Cardiac structures and configuration with cardiac size upper limits of normal and arteriosclerosis. Status post sternotomy chest and CABG. Coronary artery disease. Bones/joints: Unremarkable for age. XR/XR chest 1V portable [id number] IMPRESSION: Nonacute. Radiation Dose CTDIVOL = (mGy): DLP = (mGy-cm)
--- NOTE | 2021-03-27 18:47 | ECG_ITS ---
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 Measurements Intervals [place] Rate: 66 P: 82 [place]: 156 QRS: -7 QRSD: 145 T: 45 QT: 413 QTc: 433 Interpretive Statements SINUS RHYTHM RIGHT BUNDLE BRANCH BLOCK [120+ ms QRS DURATION, UPRIGHT V1, 40+ ms S IN I/aVL/V4/V5/V6] INFERIOR MYOCARDIAL INFARCTION , PROBABLY OLD [40+ ms Q WAVE AND/OR ST/T ABNORMALITY IN II/aVF] Compared to ECG 07/24/2020 02:56:03 No significant changes Electronically Signed On 03-28-2021 23:28:07 CDT by Favio Ferguson M.D. [id number] f
--- NOTE | 2021-03-27 18:59 | CTR_ITS ---
PROCEDURE INFORMATION: Exam: CTA Chest With and Without Contrast Exam date and time: 03/27/2021 6:59 PM Age: 65 years old Clinical indication: Abdominal pain; Generalized; Prior surgery; Additional info: Cp/ abd pain TECHNIQUE: Imaging protocol: Computed tomographic angiography of the chest with contrast. 3D rendering (Not supervised by radiologist): MIP and/or 3D reconstructed images were created and reviewed. Total images: 752 COMPARISON: 1. CT abdomen pelvis w con* [id number] 01/19/2020 1:19 PM 2. CTA Chest-Pulmonary Emb [id number] 05/27/2019 4:46:25 AM FINDINGS: Pulmonary arteries: No visible evidence of pulmonary embolism/pulmonary arterial thrombus. Aorta: The thoracic aorta is nonaneurysmal. No visible intimal flap or dissection. Mild arteriosclerosis. Lungs: Advanced centrilobular emphysema. Peripheral acinar emphysema. Bullous emphysema. Senile fibrosis primarily in the lung bases. Minimal small volume round atelectasis right lower lobe. Pleural spaces: Unremarkable. No pneumothorax. No pleural effusion. Heart: Mild cardiomegaly. No visible pericardial effusion. Coronary artery disease. Status post sternotomy chest and CABG. Mediastinal space: Patulous esophagus with suspicion for achalasia. Large hiatal hernia. Lymph nodes: No visible evidence of active mediastinal or hilar lymphadenopathy. Bones/joints: No visible active or acute osseous pathology. Mild scoliotic curvature. Soft tissues: Unremarkable for age. Other findings: Respiratory motion artifact. IMPRESSION: 1. No visible evidence for acute cardiopulmonary/cardiothoracic pathologic process. 2. Chronic lung disease as detailed in text above. 3. Patulous esophagus with suspicion for achalasia. 4. Mild cardiomegaly with coronary artery disease. 5. The thoracic aorta is nonaneurysmal. 6. No visible evidence of pulmonary embolism/pulmonary arterial thrombus. PROCEDURE INFORMATION: Exam: CTA Abdomen and Pelvis With Contrast Exam date and time: 03/27/2021 6:59 PM Age: 65 years old Clinical indication: Abdominal pain; Generalized; Prior surgery; Additional info: Cp/ abd pain TECHNIQUE: Imaging protocol: Computed tomographic angiography of the abdomen and pelvis with contrast material. 3D rendering (Not supervised by radiologist): MIP and/or 3D reconstructed images were created by the technologist. Radiation optimization: All CT scans at this facility use at least one of these dose optimization techniques: automated exposure control; mA and/or kV adjustment per patient size (includes targeted exams where dose is matched to clinical indication); or iterative reconstruction. Contrast material: OMNI 350; Contrast volume: 95 ml; Contrast route: INTRAVENOUS (IV); COMPARISON: CT abdomen pelvis w con* [id number] 01/19/2020 1:19 PM RADIATION DOSE METRICS: Total DLP (mGy-cm): 3022.94 FINDINGS: Mediastinal space: Large hiatal hernia. Aorta: The abdominal aorta is nonaneurysmal. No visible intimal flap or dissection. Moderate arterial sclerotic disease. Celiac trunk and mesenteric arteries: No occlusion or significant stenosis. Renal arteries: No occlusion or significant stenosis. Accessory right renal artery. Right iliac arteries: No occlusion or significant stenosis. Left iliac arteries: No occlusion or significant stenosis. Portal Venous System: Portal vein patent. Liver: Stable small simple hepatic cyst medial segment left hepatic lobe measuring 1 cm. No visible hepatic mass. Gallbladder and bile ducts: Status post cholecystectomy. Pancreas: Pancreas is unremarkable. No visible pancreatic ductal ectasia. Spleen: Splenomegaly. Adrenal glands: Adrenal glands unremarkable. Kidneys and ureters: No hydronephrosis or perinephric fluid. No visible nephrolithiasis or visible ureterolithiasis. Stable small simple cortical cyst inferior pole right kidney measuring 14 mm. No follow-up recommended. Stomach and bowel: Mild reactive cecitis. Nonobstructive bowel pattern. No visible significant adynamic or reactive ileus. No visible significant diverticulosis coli or evidence for acute diverticulitis. Appendix: Examination reveals acute uncomplicated appendicitis. The appendix is inflamed and demonstrates appendicoliths the largest measuring 15 mm x 7 mm. Periappendiceal fat inflammatory response. No visible adjacent extraluminal gas or periappendiceal abscess. Intraperitoneal space: Rare tiny focus of pneumoperitoneum. No generalized pneumoperitoneum. Small volume intraperitoneal ascites the largest collection pouch of [place]. Lymph nodes: No visible enlarged lymph nodes. Urinary bladder: Urinary bladder unremarkable. Reproductive: Mild prostate hypertrophy. Bones/joints: No visible acute osseous abnormality. Mild scoliotic curvature. Soft tissues: Stable small intramuscular lipoma left tensor fascia ruperto muscle. Bilateral small inguinal hernias containing fat only. CT/CT angio chest abdomen pelvis IMPRESSION: 1. Acute appendicitis. 2. Rare tiny focus of pneumoperitoneum. 3. Small volume intraperitoneal ascites the largest collection within the pouch of [place]. 4. Mild reactive cecitis. 5. The abdominal aorta is nonaneurysmal. 6. Splenomegaly. 7. Other nonurgent, nonemergent, chronic, postoperative, and age related findings as detailed in text above. Radiation Dose CTDIVOL = (mGy): DLP = 3022.94 (mGy-cm)
--- NOTE | 2021-03-27 19:02 | W.ED.ABDPA2 ---
HPI - Abdominal Pain General: Chief Complaint: Chest Pain Stated Complaint: CHEST PAIN TO GROIN Time Seen by Provider: 03/27/21 18:46 Source: patient and EMS Mode of arrival: EMS Limitations: no limitations History of Present Illness: HPI narrative: 65-year-old male who has a history of A. fib started having chest pain along with abdominal pain earlier today a few hours ago. Patient came in by EMS patient was given 1 mg Dilaudid along with 25 mg of Phenergan in route and is lethargic from the meds. He does state that his abdomen has been hurting worse in his chest he states that feels tight and rates his pain a 4 out of 10 currently was a 9 out of 10 earlier denies any vomiting or diarrhea denies any fevers. Denies any worsening improving factors. Associated Symptoms: Denies chills, diarrhea, dysuria, fever(s), nausea and vomiting Review of Systems Const: Denies: fever(s), chills, body aches or change in appetite Eyes: Denies: blurry vision or eye discomfort ENMT: Denies: throat pain or dental pain Card: Reports: chest pain Resp: Denies: dyspnea GI: Reports: abdominal pain; Denies: nausea, vomiting or diarrhea : Denies: dysuria Musc: Denies: neck pain or back pain Skin/Breast: Denies: rash Neuro: Denies: headache(s) Psych: Denies: depression Chavez/Lymph: Denies: easy bruising All/Imm: Denies: urticaria PFSH ED PFSH: Medical History Anemia Atrial fibrillation CHF (congestive heart failure) Last echocardiogram normal EF, grade 2/4 diastolic dysfunction October 2019 Colon polyps COPD (chronic obstructive pulmonary disease) Coronary artery disease GERD (gastroesophageal reflux disease) Hyperlipidemia Hypertension Hypothyroidism Surgical History History of coronary artery bypass graft March 2019 [facility] History of knee surgery History of vasectomy Family History Other CAD (coronary artery disease) Social History Smoking and tobacco status: former smoker Quit status (tobacco): has quit using tobacco Year quit tobacco: 2017 - PPD x 52 Years Smoking risk assessment/counseling performed?: No Alcohol intake: never Counseling given: No Counseling given: No Lives independently: Yes Household members: none Marital status: Legally Current occupational status: retired History of recent travel: No Current gender identity: Male Physical Exam Const: COMMON NORMALS: no acute distress, patient oriented x3 and healthy appearing HENMT: COMMON NORMALS: normocephalic and atraumatic HEAD & SCALP: normocephalic and atraumatic Eye: COMMON NORMALS: Equal, round and reactive pupils present and EOMs intact bilaterally PUPIL: Yes Equal, round and reactive pupils present Neck/C-Spine: COMMON NORMALS: full ROM and supple Chest: COMMONS NORMALS: normal inspection of the chest and normal palpation of entire chest wall Resp: COMMON NORMALS: normal respiratory effort, No retractions, No use of accessory muscles and clear to auscultation bilaterally AUSCULTATION: clear to auscultation bilaterally Cardio: COMMON NORMALS: regular rate, regular rhythm and No murmurs present (Cardio) RATE: regular rate RHYTHM: regular rhythm GI: COMMON NORMALS: Normal to inspection, nondistended, normoactive bowel sounds present, Soft to palpation, non-tender and no masses PALPATION: Yes Soft to palpation Extremity: COMMON NORMALS: normal to inspection and full ROM Neuro: COMMON NORMALS: patient oriented x3, moves all extremities and no focal motor deficits Psych: COMMON NORMALS: mental status grossly normal, Normal thought process present and cooperative THOUGHT PROCESS: Normal thought process present Skin: COMMON NORMALS: no rashes or lesions noted and no wounds GENERAL SKIN EXAM: no rashes or lesions noted Course Vital Signs: Vital signs: Vital Signs Temperature 98.1 F 03/27/21 19:03 Pulse Rate 64 03/27/21 19:03 Respiratory Rate 16 03/27/21 19:03 Blood Pressure 144/74 03/27/21 19:03 Pulse Oximetry 88 L 03/27/21 19:03 MDM - Abdominal Pain MDM Narrative: Medical decision making narrative: Patient presents here with abdominal pain is found to have appendicitis. Questionable pneumoperitoneum. Exam here does not show a acute abdomen he has no rigidity white count and lactate is normal. I reviewed the CT findings with the surgeon Dr. Morocho as well plan will be to admit him and clear him for surgery tomorrow as he has multiple medical issues and is on Eliquis and needs his Eliquis held we will start him on IV antibiotics. Lab Data: Labs: Lab Results 03/27/21 03/27/21 03/27/21 18:50 18:50 18:50 WBC 6.7 10^3/uL 10^3/ uL (4.0-10.0) RBC 4.90 10^6/uL 10^6 /uL (4.1-5.3) Hgb 14.1 g/dL g/dL (11.7-16.6) Hct 43.3 % % (42.0-52.0) MCV 88.4 fl fl (80-94) MCH 28.8 pg pg (28.0-34.0) MCHC 32.6 g/dL g/dL (30.0-36.0) RDW 16.0 % H % (12.1-15.1) Plt Count 167 10^3/cmm 10^3 /cmm (130-400) MPV 10.5 fL H fL (7.4-10.4) Neut % (Auto) 71.6 % % Lymph % (Auto) 17.2 % % Bell % (Auto) 9.1 % % Eos % (Auto) 1.5 % % Baso % (Auto) 0.3 % % Neut # (Auto) 4.78 10^3/uL 10^3 /uL (1.8-7.7) Lymph # (Auto) 1.2 10^3/uL 10^3/ uL (0.8-4.8) Bell # (Auto) 0.6 10^3/uL 10^3/ uL (0.2-0.9) Eos # (Auto) 0.1 10^3/uL 10^3/ uL (0.0-0.8) Baso # (Auto) 0.0 10^3/uL 10^3/ uL (0.0-0.1) Nucleated RBC % (a uto) 0 % % Nucleated RBCs # 0.0 /100WBC /100W BC PT 14.80 SECONDS SEC ONDS (12.1-14.9) INR 1.13 (0.8-1.2) Sodium 139 mmol/L mmol/L (136-145) Potassium 4.3 mmol/L mmol/L (3.5-5.1) Chloride 104 mmol/L mmol/L (98-107) Carbon Dioxide 25 mmol/L mmol/L (22-29) Anion Gap 14.3 (5-19) BUN 21 mg/dL mg/dL (8-23) Creatinine 1.0 mg/dL mg/dL (0.7-1.2) GFR Calculation 74.8 mL/min L mL/ min (90-130) Glucose 160 mg/dL H mg/dL (65-115) Calculated Osmolal ity 294 mOsm/kg mOsm/ kg (285-295) Lactate Calcium 8.4 mg/dL L mg/dL (8.5-10.5) Total Bilirubin 0.5 mg/dL mg/dL (0.15-1.2) AST 14 U/L U/L (0-40) ALT 14 U/L U/L (0-41) Alkaline Phosphata se 76 IU/L IU/L (40-130) Troponin T Baselin e Troponin T 120 Min [place] Troponin T Total Protein 6.2 g/dL L g/dL (6.6-8.7) Albumin 3.7 g/dL g/dL (3.5-5.2) Globulin 2.5 g/dL g/dL (1.3-4.6) Digoxin 0.7 ng/mL ng/mL (0.6-1.2) 03/27/21 03/27/21 03/27/21 18:50 18:50 20:50 WBC RBC Hgb Hct MCV MCH MCHC RDW Plt Count MPV Neut % (Auto) Lymph % (Auto) Bell % (Auto) Eos % (Auto) Baso % (Auto) Neut # (Auto) Lymph # (Auto) Bell # (Auto) Eos # (Auto) Baso # (Auto) Nucleated RBC % (a uto) Nucleated RBCs # PT INR Sodium Potassium Chloride Carbon Dioxide Anion Gap BUN Creatinine GFR Calculation Glucose Calculated Osmolal ity Lactate 1.0 mmol/L mmol/L (0.5-2.2) Calcium Total Bilirubin AST ALT Alkaline Phosphata se Troponin T Baselin e 11 ng/L ng/L (0-15) Troponin T 120 Min [place] 10.38 ng/L ng/L (0-15) Delta Troponin T -0.62 ABS# L ABS# (0-10) Total Protein Albumin Globulin Digoxin Imaging Data ^: CT Abd/Pel: Attestation: I personally reviewed and interpreted this imaging study as follows: Radiologist's impression: [employer] [address] XRay Report Signed Patient: Gabino Jones Unit #: [id number] : 1955 Age/Sex: 65 / M ADM Date: 03/27/21 Loc: ER Room/Bed: Attending Dr: Ordering Provider/Ordering MD: Liz Fuentes MD Date of Service: 03/27/21 Procedure(s): XR chest 1V portable [id number] Accession Number(s): [id number] Report Number: [id number] PROCEDURE INFORMATION: Exam: XR Chest Exam date and time: 03/27/2021 6:47 PM Age: 65 years old Clinical indication: Chest wall pain; Prior surgery; Surgery date: 6+ months; Surgery type: Open heart; Additional info: Cp TECHNIQUE: Imaging protocol: XR of the chest. Views: 1 view. Total images: 1 COMPARISON: CR XR chest 1V portable [id number] 07/24/2020 3:04 AM FINDINGS: Lungs: Advanced centrilobular emphysema. Senile fibrosis. Chronic atelectasis and/or parenchymal scar left lung base. No visible active interstitial or alveolar airspace disease. Pleural spaces: No visible pleural effusion. No pneumothorax. Heart/Mediastinum: Cardiac structures and configuration with cardiac size upper limits of normal and arteriosclerosis. Status post sternotomy chest and CABG. Coronary artery disease. Bones/joints: Unremarkable for age. XR/XR chest 1V portable [id number] IMPRESSION: Nonacute. Radiation Dose CTDIVOL = (mGy): DLP = (mGy-cm) Dictated By: Kaden Steinberg Signed By: Kaden Steinberg Signed Date/Time: 03/27/211950 DD/ 46 EKG Data ^: EKG 1: Attestation: I personally reviewed and interpreted this EKG as follows: EKG interpretation date: 03/27/21 EKG interpretation time: 18:49 Interpretation: nsr hr [address] or t wave abnormalities rbbb qrs 145 qtc 426 Discharge Plan Discharge Patient Disposition: Admitted As Inpatient Clinical Impression: Acute appendicitis Qualifiers: Acute appendicitis type: unspecified acute appendicitis type Qualified Code(s): K35.80 - Unspecified acute appendicitis Condition: Stable 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 of Care Code ED Varitypist for g Fwd Exam Comprehensive
[2021-03-27 19:06] LABS: Basophils % 0.3 %; Eosinophils # 0.1 10^3/uL (0.0-0.8); Eosinophils % 1.5 %; Hematocrit 43.3 % (42.0-52.0); Hemoglobin 14.1 g/dL (11.7-16.6); Lymphocytes # 1.2 10^3/uL (0.8-4.8); Lymphocytes % 17.2 %; Mean Corpuscular HGB Conc 32.6 g/dL (30.0-36.0); Mean Corpuscular Hemoglobin 28.8 pg (28.0-34.0); Mean Corpuscular Volume 88.4 fl (80-94); Mean Platelet Volume 10.5 fL (7.4-10.4); Monocytes # 0.6 10^3/uL (0.2-0.9); Monocytes % 9.1 %; Neutrophils # 4.78 10^3/uL (1.8-7.7); Neutrophils % 71.6 %; Nucleated Red Blood Cells % 0 %; Platelet Count 167 10^3/cmm (130-400); White Blood Count 6.7 10^3/uL (4.0-10.0)
[2021-03-27 19:23] LABS: INR 1.13 (0.8-1.2)
[2021-03-27 19:26] LABS: Alanine Aminotransferase 14 U/L (0-41); Albumin Level 3.7 g/dL (3.5-5.2); Alkaline Phosphatase 76 IU/L (40-130); Aspartate Amino Transferase 14 U/L (0-40); Blood Urea Nitrogen 21 mg/dL (8-23); Calcium 8.4 mg/dL (8.5-10.5); Carbon Dioxide 25 mmol/L (22-29); Chloride 104 mmol/L (98-107); Globulin 2.5 g/dL (1.3-4.6); Glomerular Filtration Rate 74.8 mL/min (90-130); Glucose 160 mg/dL (65-115); Osmolality Calculated 294 mOsm/kg (285-295); Sodium 139 mmol/L (136-145); Total Bilirubin 0.5 mg/dL (0.15-1.2); Total Protein 6.2 g/dL (6.6-8.7)
[2021-03-27 19:28] LABS: Anion Gap 14.3 (5-19); Potassium 4.3 mmol/L (3.5-5.1)
[2021-03-27 19:30] LABS: Troponin(5th) Baseline 11 ng/L (0-15)
[2021-03-27] MEDS: ondansetron 2 mg/ML SDV 2 mL 4 MG IVP (20:24)
[2021-03-27] MEDS: iohexol 350 mg/mL 100 mL Btl IV (20:35)
--- NOTE | 2021-03-27 20:47 | ECG_ITS ---
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 Measurements Intervals [place] Rate: 106 P: 77 [place]: 159 QRS: -26 QRSD: 129 T: 64 QT: 331 QTc: 440 Interpretive Statements SINUS TACHYCARDIA RIGHT BUNDLE BRANCH BLOCK [120+ ms QRS DURATION, UPRIGHT V1, 40+ ms S IN I/aVL/V4/V5/V6] INFERIOR MYOCARDIAL INFARCTION , OF INDETERMINATE AGE [40+ ms Q WAVE AND/OR ST/T ABNORMALITY IN II/aVF] ST DEPRESSION, CONSIDER SUBENDOCARDIAL INJURY [0.1+ mV ST DEPRESSION] Compared to ECG 03/27/2021 18:49:46 ST (T wave) deviation now present Sinus rhythm no longer present Myocardial infarct finding still present Electronically Signed On 03-28-2021 23:36:16 CDT by Favio Ferguson M.D. [id number]
[2021-03-27] MEDS: piperacillin-tazobactam 3.375 GM in sodium chloride 0.9% (plus) 50 ML IV (21:15)
[2021-03-27 21:32] LABS: Digoxin 0.7 ng/mL (0.6-1.2)
[2021-03-27 21:44] LABS: Troponin 5 2HR 10.38 ng/L (0-15); Troponin 5 2HR Delta -0.62 ABS# (0-10)
[2021-03-27] MEDS: HYDROmorphone 1 mg/mL INJ 1 mL IVP (21:50)
[2021-03-28] VITALS (29 sets, daily range): BP systolic 97–162; BP diastolic 48–105; PULSE 85–108; RESP 17–23; TEMP 36.5–37.2; O2SAT 92–99; BMI 30.4
--- NOTE | 2021-03-28 00:47 | ECG_ITS ---
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 Measurements Intervals [place] Rate: 105 P: 87 [place]: 153 QRS: -22 QRSD: 126 T: 71 QT: 331 QTc: 438 Interpretive Statements SINUS TACHYCARDIA RIGHT BUNDLE BRANCH BLOCK [120+ ms QRS DURATION, UPRIGHT V1, 40+ ms S IN I/aVL/V4/V5/V6] INFERIOR MYOCARDIAL INFARCTION , OF INDETERMINATE AGE [40+ ms Q WAVE AND/OR ST/T ABNORMALITY IN II/aVF] ST DEVIATION AND MARKED T-WAVE ABNORMALITY, CONSIDER ANTERIOR ISCHEMIA [-0.5+ mV T-WAVE IN V3/V4] Compared to ECG 03/28/2021 01:05:57 T-wave abnormality now present Possible ischemia now present ST (T wave) deviation no longer present Myocardial infarct finding still present Electronically Signed On 03-28-2021 23:36:06 CDT by Favio Ferguson M.D. [id number]
[2021-03-28 00:59] LABS: Troponin 5 6HR 12.61 ng/L (0-15); Troponin 5 6HR Delta 1.61 ng/L (0-12)
[2021-03-28] MEDS: sodium chloride 0.9% 1,000 ML 100 ML IV (01:24)
[2021-03-28] MEDS: morphine 4 mg/mL SDV 1 mL IVP ×3 (01:24→20:01)
--- NOTE | 2021-03-28 01:45 | P.CONIM_ITS ---
Providers/Reason For Consult Consulting Physician/Specialty*: Gabe, Hospitalist Reason for Consult*: Heart disease, on eliquis, pre op evalualtion Requesting Physician: Dr Morocho via Dr Gifford Attending Physician: Desmond Morocho MD Primary Care Provider: PATO Hernandez History of Present Illness History of Present Illness Gabino Jones is a 65 year old male who presented to the emergency room via EMS with chief complaint of pain. Pain originated in the chest and radiated all the way into his right groin. Symptom onset was today although in talking with him it sounds like he has been having some discomfort in his right lower quadrant for a couple of days. He does report some intermittent loose stools lately. No nausea or vomiting. Last oral intake was around lunchtime, a bit before when he had some chicken. When the pain hit him this evening he thought it might be his heart. He received some nitroglycerin in route. He did not have much in the way of improvement with this. He has a history of coronary artery disease with coronary artery bypass in March 2019. He follows with Dr. Stern outpatient, last seen in October of this year. He takes usually maybe 1 dose of nitroglycerin a month. He has chronic dyspnea with exertion that has not escalated lately. He denies chest pain with exertion. 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 He is able to take care of his act ivities of daily living without any chest pain. Denies recent problems with lower extremity edema. Work-up in the emergency room revealed evidence of acute appendicitis. Hospitalist were consulted given his cardiac history. He is on Eliquis chronically. Last dose was 03/22 5 in the morning. He is chronically on a beta-radha. Also chronically on digoxin. In addition to bypass surgery has some COPD and has followed with Dr. Don the last seeing him on March 02. He is currently complaining of abdominal pain after I have examined him that was resting comfortably prior to that. He does not describe any anorexia per se. Last bowel movement was yesterday. He has had some difficulty with urination the last 24 hours. Review of Systems Const: Denies: fever(s), chills or change in appetite ENMT: Reports: dry mouth; Denies: throat pain or nasal congestion Card: Reports: chest pain (Occasional); Denies: palpitations, edema or orthopnea Resp: Reports: dyspnea (Not changed from baseline), productive cough (Not changed from baseline) and wheezing (Not change from baseline) GI: Reports: abdominal pain and diarrhea; Denies: nausea, vomiting, constipation, hematochezia or melena : Reports: difficulty urinating; Denies: hematuria Musc: Denies: extremity swelling or joint redness Skin/Breast: Denies: rash or sores Neuro: Denies: headache(s), numbness in extremities, weakness in extremities or difficulty walking [place]/Lymph: Denies: easy bruising or easy bleeding Meds/Allergies Home Medications and Allergies Home Medications Medication Instructions Recorded Confirmed Last Taken Type albuterol sulfate 2 puff INHALATION Q6H PRN 09/25/19 03/02/21 04/20/20 History ipratropium-albuterol 3 ml INHALATION Q6H PRN 09/25/19 03/02/21 04/20/20 History Eliquis 5 mg PO BID #60 tab 10/16/19 03/02/21 04/17/20 Rx furosemide [Lasix] 40 mg PO DAILY #30 tab 10/16/19 03/02/21 1 Day Ago Rx ~04/19/20 potassium chloride 10 meq PO DAILY #30 tab 10/16/19 03/02/21 1 Day Ago Rx ~04/19/20 atorvastatin 20 mg tablet 10 mg PO DAILY 10/27/19 03/02/21 1 Day Ago History ~04/19/20 budesonide-formoterol HFA 160 2 puff INHALATION BID #10.2 gm 11/17/19 03/02/21 04/20/20 Rx mcg-4.5 mcg/actuation aerosol inhaler docusate sodium [Stool Softener] 100 mg PO DAILY 01/19/20 03/02/21 1 Day Ago History ~04/19/20 digoxin 250 mcg PO DAILY #30 tab 01/22/20 03/02/21 04/20/20 Rx levothyroxine [Levoxyl] 100 mcg PO DAILY #30 tab 01/22/20 03/02/21 1 Day Ago Rx ~04/19/20 metoprolol tartrate 75 mg PO BID #90 tab 01/22/20 03/02/21 04/20/20 Rx tiotropium bromide 2.5 2 inh INHALATION QAM gm 06/20/20 03/02/21 Unknown History mcg/actuation mist for inhalation aspirin 325 mg tablet 325 mg PO DAILY 10/04/20 03/02/21 Unknown History cholecalciferol (vitamin D3) 25 25 mcg PO DAILY PRN 10/04/20 03/02/21 Unknown History mcg (1,000 unit) capsule ferrous sulfate 325 mg (65 mg 325 mg PO DAILY 10/04/20 03/02/21 Unknown History iron) tablet omeprazole 20 mg capsule,delayed 40 mg PO DAILY cap 10/04/20 03/02/21 Unknown History release Allergies Allergy/AdvReac Type Severity Reaction Status Date / Time No Known Allergies Allergy Verified 03/02/21 15:06 Current Medications Current Medications Generic Name Dose Route Start Last Admin Trade Name Freq PRN Reason Stop Dose Admin Sodium Chloride 1,000 mls @ 100 mls/hr 03/28/21 00:43 03/28/21 01:24 Sodium Chloride 0.9% IV 100 mls/hr .Q10H JUAN DAVID Administration Morphine Sulfate 4 mg 03/28/21 00:43 03/28/21 01:24 Morphine 4 Mg/Ml Sdv 1 Ml IVP 4 mg Q4H PRN Administration SEVERE PAIN Additional Medication Information Patient reports that medication list is consistent with what he recalls PFSH Acute PFSH: Medical History (Updated 03/28/21 @ 04:07 by Shauna Bernal MD) Anemia Atrial fibrillation CHF (congestive heart failure) Last echocardiogram normal EF, grade 2/4 diastolic dysfunction October 2019 Colon polyps COPD (chronic obstructive pulmonary disease) Coronary artery disease GERD (gastroesophageal reflux disease) Hyperlipidemia Hypertension Hypothyroidism Surgical History (Updated 03/28/21 @ 03:28 by Shauna Bernal MD) History of colonoscopy (~04/2020) History of coronary artery bypass graft (03/2019) [address] [place] [address] History of knee surgery History of vasectomy S/P cholecystectomy Family History Other CAD (coronary artery disease) Social History (Updated 03/28/21 @ 01:46 by Shauna Bernal MD) Smoking and tobacco status: former smoker Quit status (tobacco): has quit using tobacco Year quit tobacco: 2017 - PPD x 52 Years Alcohol intake: never Substance/Drug Use: never Counseling given: No Lives independently: Yes Household members: none Marital status: Legally Current occupational status: retired Current gender identity: Male Vitals/I&O/Wt Last Vital Signs Temp 98.1 F 03/27/21 19:03 Pulse 102 H 03/28/21 01:25 Resp 20 H 03/28/21 01:25 BP 148/78 03/28/21 01:25 Pulse Ox 97 03/28/21 01:25 03/27/21 03/27/21 03/28/21 14:59 22:59 06:59 Intake Total Balance Physical Exam Narrative: EXAM NARRATIVE: Constitutional: Asleep but easily arousable, cooperative HEENT: Normocephalic, extraocular movements intact, dry mucous membranes Neck: Supple Respiratory: Clear to auscultation bilaterally without any rales rhonchi or wheezes Cardiovascular: Regular rate and rhythm without any murmurs gallops or rubs, no JVD Abdomen: Soft, rotund, tender in the right lower quadrant greater than right upper quadrant greater than left lower quadrant, decreased bowel sounds, no rebound or guarding : Normal external genitalia Extremities: No pitting edema Skin: Dry, some chronic changes noted to the lower extremities, no acute sores Neuro: Speech clear, face symmetric, moves all extremities Psych: Normal affect Data Labs: Other Labs: Laboratory Results WBC 6.7 10^3/uL (4.0- 10.0) 03/27/21 18:50 RBC 4.90 10^6/uL (4.1 -5.3) 03/27/21 18:50 Hgb 14.1 g/dL (11.7-1 6.6) 03/27/21 18:50 Hct 43.3 % (42.0-52.0 ) 03/27/21 18:50 MCV 88.4 fl (80-94) 03/27/21 18:50 MCH 28.8 pg (28.0-34. 0) 03/27/21 18:50 MCHC 32.6 g/dL (30.0-3 6.0) 03/27/21 18:50 RDW 16.0 % (12.1-15.1 ) H 03/27/21 18:50 Plt Count 167 10^3/cmm (130 -400) 03/27/21 18:50 MPV 10.5 fL (7.4-10.4 ) H 03/27/21 18:50 Neut % (Auto) 71.6 % 03/27/21 18:50 Lymph % (Auto) 17.2 % 03/27/21 18:50 [place] % (Auto) 9.1 % 03/27/21 18:50 Eos % (Auto) 1.5 % 03/27/21 18:50 Baso % (Auto) 0.3 % 03/27/21 18:50 Neut # (Auto) 4.78 10^3/uL (1.8 -7.7) 03/27/21 18:50 Lymph # (Auto) 1.2 10^3/uL (0.8- 4.8) 03/27/21 18:50 [place] # (Auto) 0.6 10^3/uL (0.2- 0.9) 03/27/21 18:50 Eos # (Auto) 0.1 10^3/uL (0.0- 0.8) 03/27/21 18:50 Baso # (Auto) 0.0 10^3/uL (0.0- 0.1) 03/27/21 18:50 Nucleated RBC % (a uto) 0 % 03/27/21 18:50 Nucleated RBCs # 0.0 /100WBC 03/27/21 18:50 PT 14.80 SECONDS (12 .1-14.9) 03/27/21 18:50 INR 1.13 (0.8-1.2) 03/27/21 18:50 Sodium 139 mmol/L (136-1 45) 03/27/21 18:50 Potassium 4.3 mmol/L (3.5-5 .1) 03/27/21 18:50 Chloride 104 mmol/L (98-10 7) 03/27/21 18:50 Carbon Dioxide 25 mmol/L (22-29) 03/27/21 18:50 Anion Gap 14.3 (5-19) 03/27/21 18:50 BUN 21 mg/dL (8-23) 03/27/21 18:50 Creatinine 1.0 mg/dL (0.7-1. 2) 03/27/21 18:50 GFR Calculation 74.8 mL/min (90-1 30) L 03/27/21 18:50 Glucose 160 mg/dL (65-115 ) H 03/27/21 18:50 Calculated Osmolal ity 294 mOsm/kg (285- 295) 03/27/21 18:50 Lactate 1.0 mmol/L (0.5-2 .2) 03/27/21 18:50 Calcium 8.4 mg/dL (8.5-10 .5) L 03/27/21 18:50 Total Bilirubin 0.5 mg/dL (0.15-1 .2) 03/27/21 18:50 AST 14 U/L (0-40) 03/27/21 18:50 ALT 14 U/L (0-41) 03/27/21 18:50 Alkaline Phosphata se 76 IU/L (40-130) 03/27/21 18:50 Troponin T Baselin e 11 ng/L (0-15) 03/27/21 18:50 Troponin T 120 Min [place] 10.38 ng/L (0-15) 03/27/21 20:50 Delta Troponin T -0.62 ABS# (0-10) L 03/27/21 20:50 Troponin T Hi Sens 6Hr 12.61 ng/L (0-15) 03/28/21 00:31 Troponin T Hi Sens 6Hr Delta 1.61 ng/L (0-12) 03/28/21 00:31 Total Protein 6.2 g/dL (6.6-8.7 ) L 03/27/21 18:50 Albumin 3.7 g/dL (3.5-5.2 ) 03/27/21 18:50 Globulin 2.5 g/dL (1.3-4.6 ) 03/27/21 18:50 Digoxin 0.7 ng/mL (0.6-1. 2) 03/27/21 18:50 Impressions Chest X-Ray 03/27/21 18:47 IMPRESSION: Nonacute. Radiation Dose CTDIVOL = (mGy): DLP = (mGy-cm) Chest/Abdomen/Pelvis CTA 03/27/21 18:59 IMPRESSION: 1. Acute appendicitis. 2. Rare tiny focus of pneumoperitoneum. 3. Small volume intraperitoneal ascites the largest collection within the pouch of Shaun. 4. Mild reactive cecitis. 5. The abdominal aorta is nonaneurysmal. 6. Splenomegaly. 7. Other nonurgent, nonemergent, chronic, postoperative, and age related findings as detailed in text above. Radiation Dose CTDIVOL = (mGy): DLP = 3022.94 (mGy-cm) ADDENDUM: 03/27/212115 THIS REPORT CONTAINS FINDINGS THAT MAY BE CRITICAL TO PATIENT CARE. The findings were verbally communicated via telephone conference with DIANE GIFFORD at 9:06 PM CDT on 03/27/2021. The findings were acknowledged and understood. Radiation Dose CTDIVOL = (mGy): DLP = 3022.94 (mGy-cm) Other Data: Other data: Echo 10/2019 Date of Service: 10/16/19 Procedure(s): CV echo complete* [id number] CONCLUSIONS 1. Normal left ventricular cavity size and systolic function. Left ventricular ejection fraction is estimated at 55 %. No diagnostic regional wall motion abnormalities. Grade II diastolic dysfunction, moderately elevated filling pressures. 2. Normal right ventricular size and systolic function. 3. Mild to moderate tricuspid valve regurgitation. 4. Pulmonary artery pressure estimated at 34 mmHg. 5. When compared to previous echocardiogram dated 03/21/2019, left ventricle systolic function seems to have slightly improved. Fatou Bruce MD (Electronically Signed) Last cath prior to bypass in 2018 Pulmonary function studies in March 2019 showed severe airflow obstruction A&P Assessment and plan (1) Acute appendicitis: Status: Acute Qualifiers: Acute appendicitis type: with localized peritonitis Appendicitis gangrene presence: unspecified whether gangrene present Appendicitis perforation presence: unspecified whether perforation present Appendicitis abscess presence: unspecified whether abscess present Qualified Code(s): K35.30 - Acute appendicitis with localized peritonitis, without perforation or gangrene (2) Coronary artery disease: Status post bypass surgery in March 2019. Takes nitroglycerin approximately once a month. Does not describe definitive exertional chest pain. Does have exertional dyspnea but it is a chronic problem for him. Chronically on aspirin, statin, beta-blockade. Twelve-lead EKG with sinus rhythm, right bundle branch block and inferior changes that are unchanged from prior EKGs in July of this year Status: Chronic Qualifiers: Coronary Disease-Associated Artery/Lesion type: bypass graft [place] vs. transplanted heart: [place] heart Associated angina: without angina Qualified Code(s): I25.810 - Atherosclerosis of coronary artery bypass graft(s) without angina pectoris (3) Heart failure with preserved ejection fraction: Chronically on diuretics, not currently acute Status: Chronic Qualifiers: Heart failure chronicity: chronic Qualified Code(s): I50.32 - Chronic diastolic (congestive) heart failure (4) Atrial fibrillation: Prior home medication list revealed digoxin in addition to beta-blockade Status: Chronic Qualifiers: Atrial fibrillation type: paroxysmal Qualified Code(s): I48.0 - Paroxysmal atrial fibrillation (5) Chronic anticoagulation: On Eliquis secondary to atrial fibrillation, last dose in the morning on 03/27 Status: Chronic (6) COPD (chronic obstructive pulmonary disease): Chronically on albuterol Spiriva and Symbicort Status: Chronic Qualifiers: COPD type: emphysema Emphysema type: unspecified Qualified Code(s): J43.9 - Emphysema, unspecified (7) Hyperlipidemia: Chronically on atorvastatin Status: Chronic Qualifiers: Hyperlipidemia type: mixed hyperlipidemia Qualified Code(s): E78.2 - Mixed hyperlipidemia (8) Hypertension: Chronically on diuretic therapy and beta-blockade Status: Chronic Qualifiers: Hypertension type: unspecified secondary hypertension Qualified Code(s): I15.9 - Secondary hypertension, unspecified (9) GERD (gastroesophageal reflux disease): Chronically on PPI Status: Chronic Qualifiers: Esophagitis presence: without esophagitis Qualified Code(s): K21.9 - Gastro-esophageal reflux disease without esophagitis (10) Hypothyroidism: Chronically on levothyroxine Status: Chronic Qualifiers: Hypothyroidism type: acquired Qualified Code(s): E03.9 - Hypothyroidism, unspecified Additional A&P Information Current recommendations are as follows: Follow-up serial cardiac enzymes which have already been ordered Hold Eliquis, with plan to resume when appropriate postoperatively Monitor perioperatively and postoperatively for bleeding and manage accordingly We will go on and send type and cross given the chronic anticoagulation Alternative DVT prophylaxis in the interim Continue beta-blockade in IV formulation if unable to take orally Hold diuretics until can be reevaluated postoperatively Continue statins when able to take orally Check digoxin level, continue digoxin either IV or orally depending on results Continue home Symbicort and albuterol Incentive spirometry at bedside Monitor blood sugars for need to initiate insulin Check hemoglobin A1c IV PPI until able to take by mouth When able to take oral intake resume levothyroxine Antibiotics have been ordered Continue pain control Laxative therapy We will follow along while patient is here and address acute medical issues should they arise Consult Attestations Medical Necessity Statement: as per attending 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 of Care Code 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 transplanted heart: [place] heart Associated angina: without angina Heart failure with preserved ejection fraction I50.32 Heart failure chronicity: chronic Atrial fibrillation I48.0 Atrial fibrillation type: paroxysmal Chronic anticoagulation Z79.01 COPD (chronic obstructive pulmonary disease) J43.9 COPD type: emphysema Emphysema type: unspecified Hyperlipidemia E78.2 Hyperlipidemia type: mixed hyperlipidemia Hypertension I15.9 Hypertension type: unspecified secondary hypertension GERD (gastroesophageal reflux disease) K21.9 Esophagitis presence: without esophagitis Hypothyroidism E03.9 Hypothyroidism type: acquired Perioperative Risk Evaluation Type of surgery Procedure risk: elevated risk procedure Status of surgery Priority: urgent (neccessary within 6-24 hours) Sepsis risk Infection criteria present: Suspected New Infection SIRS criteria present: None Organ dysfunction criteria present: Blood Glucose > 140 ml/dl (no DM) Sepsis screen: No Definite Risk Risk factors Cardiovascular: compensated heart failure and CAD Pulmonary: COPD/emphysema Medical history Diagnostic procedures within the past year: abdominal aorta imaging (On CT of the abdomen today there was no aortic aneurysmal dilatation) Implantable Devices Qty Economic Historian Implant Date Expiration Date Gelatin haemostatic agent 1 [employer] 03/15/20 07/31/20 Plant polysaccharide haemostatic agent, bioabsorbable 1 [employer] 03/15/20 07/31/24 Functional capacity Exercise tolerance: 4-10 METS Medications High priority meds: beta-blockers, diuretics, statins, anticoagulants and other (digoxin) Physical exam Physical exam: reviewed and none apply Assessment Risk of cardiovascular perioperative events: Elevated At this time, there is an elevated risk for cardiovascular perioperative events associated with this urgent elevated risk procedure and the following patient characteristics: compensated heart failure, CAD Risk of noncardiovascular perioperative events: Elevated At this time, there is an elevated risk for noncardiovascular perioperative events associated with this urgent elevated risk procedure and the following patient characteristics: COPD/emphysema Recommendations Patient medically optimized for surgery: Yes Betzy-op med management: Currently, there are multiple high priority active medications: other, beta-blockers, diuretics, statins, anticoagulants. Additional recommendations for postoperative medical care: See assessment and plan above
[2021-03-28] MEDS: ondansetron 2 mg/ML SDV 2 mL 4 MG IVP ×2 (02:11→09:14)
--- NOTE | 2021-03-28 03:42 | PM.HP ---
Providers/Chief Complaint Admitting Physician: Desmond Morocho MD Primary Care Provider: PATO Hernandez Chief Complaint: CHEST PAIN TO GROIN History of Present Illness Gabino Jones is a 65 year old male who says around noon yesterday he developed rather sudden right lower quadrant abdominal pain. It has spread across his abdomen since. 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 He denies any changes in bowel habits. He came to the hospital and a CAT scan revealed evidence of appendicitis with a small amount of free air. He was started on broad-spectrum antibiotics and was seen by the hospitalist service. The patient says he continue to have pain this morning. Review of Systems General: Reports: 10 or more systems reviewed and unremarkable except in HPI and below Const: Reports: fever(s) GI: Reports: abdominal pain, nausea and vomiting; Denies: change in stool character : Reports: other (History of prostate trouble, seen at [facility]) Medications/Allergies Home Medications Medication Instructions Recorded Confirmed Last Taken Type albuterol sulfate 2 puff INHALATION Q6H PRN 09/25/19 03/02/21 04/20/20 History ipratropium-albuterol 3 ml INHALATION Q6H PRN 09/25/19 03/02/21 04/20/20 History Eliquis 5 mg PO BID #60 tab 10/16/19 03/02/21 04/17/20 Rx furosemide [Lasix] 40 mg PO DAILY #30 tab 10/16/19 03/02/21 1 Day Ago Rx ~04/19/20 potassium chloride 10 meq PO DAILY #30 tab 10/16/19 03/02/21 1 Day Ago Rx ~04/19/20 atorvastatin 20 mg tablet 10 mg PO DAILY 10/27/19 03/02/21 1 Day Ago History ~04/19/20 budesonide-formoterol HFA 160 2 puff INHALATION BID #10.2 gm 11/17/19 03/02/21 04/20/20 Rx mcg-4.5 mcg/actuation aerosol inhaler docusate sodium [Stool Softener] 100 mg PO DAILY 01/19/20 03/02/21 1 Day Ago History ~04/19/20 digoxin 250 mcg PO DAILY #30 tab 01/22/20 03/02/21 04/20/20 Rx levothyroxine [Levoxyl] 100 mcg PO DAILY #30 tab 01/22/20 03/02/21 1 Day Ago Rx ~04/19/20 metoprolol tartrate 75 mg PO BID #90 tab 01/22/20 03/02/21 04/20/20 Rx tiotropium bromide 2.5 2 inh INHALATION QAM gm 06/20/20 03/02/21 Unknown History mcg/actuation mist for inhalation aspirin 325 mg tablet 325 mg PO DAILY 10/04/20 03/02/21 Unknown History cholecalciferol (vitamin D3) 25 25 mcg PO DAILY PRN 10/04/20 03/02/21 Unknown History mcg (1,000 unit) capsule ferrous sulfate 325 mg (65 mg 325 mg PO DAILY 10/04/20 03/02/21 Unknown History iron) tablet omeprazole 20 mg capsule,delayed 40 mg PO DAILY cap 10/04/20 03/02/21 Unknown History release Allergies Allergy/AdvReac Type Severity Reaction Status Date / Time No Known Allergies Allergy Verified 03/02/21 15:06 PFSH Acute PFSH: Medical History (Updated 03/28/21 @ 04:40 by Desmond Morocho MD) Anemia Atrial fibrillation CHF (congestive heart failure) Last echocardiogram normal EF, grade 2/4 diastolic dysfunction October 2019 Colon polyps COPD (chronic obstructive pulmonary disease) Coronary artery disease GERD (gastroesophageal reflux disease) Hyperlipidemia Hypertension Hypothyroidism Surgical History (Updated 03/28/21 @ 03:28 by Shauna Bernal MD) History of colonoscopy (~04/2020) History of coronary artery bypass graft (03/2019) [address] [place] [address] History of knee surgery History of vasectomy S/P cholecystectomy Family History Other CAD (coronary artery disease) Social History (Updated 03/28/21 @ 01:46 by Shauna Bernal MD) Smoking and tobacco status: former smoker Quit status (tobacco): has quit using tobacco Year quit tobacco: 2017 - PPD x 52 Years Alcohol intake: never Substance/Drug Use: never Counseling given: No Lives independently: Yes Household members: none Marital status: Legally Current occupational status: retired Current gender identity: Male Vitals/I&O/Wt Last Vital Signs Temp 97.7 F 03/28/21 01:56 Pulse 108 H 03/28/21 01:56 Resp 20 H 03/28/21 01:56 BP 162/105 03/28/21 01:56 Pulse Ox 93 03/28/21 01:56 03/27/21 03/27/21 03/28/21 14:59 22:59 06:59 Intake Total 50 / 50 Balance 50 / 50 Weight last 48 hrs Weight 211 lb 11.2 oz Physical Exam Narrative: EXAM NARRATIVE: The patient was encountered in his hospital room. He is currently afebrile but is mildly tachycardic. He does not appear to be in any distress, but will hold his abdomen when he has to cough or move. The pupils seem equal. No carotid bruits are heard. The lungs are clear anteriorly. The heart is regular. The abdomen reveals very few bowel sounds and is somewhat firm. He has tenderness across the lower abdomen with his maximum point of tenderness in the right lower quadrant. No obvious masses are palpated. The extremities reveal no edema. He can move all limbs to command. Data : 03/27/21 18:50 03/27/21 18:50 CTA Chest: Radiologist's impression: CTA chest/abdomen/pelvis 03/27/2021 IMPRESSION: 1. Acute appendicitis. 2. Rare tiny focus of pneumoperitoneum. 3. Small volume intraperitoneal ascites the largest collection within the pouch of Shaun. 4. Mild reactive cecitis. 5. The abdominal aorta is nonaneurysmal. 6. Splenomegaly. A&P Assessment and plan (1) Perforated appendicitis: The patient's history is interesting in that he had a sudden onset of right lower quadrant pain yesterday and hours later was found to have some evidence of perforation in the form of minimal free air. He has tenderness across his entire lower abdomen so I would not be surprised if he does have a perforation. I discussed the situation with the patient in some detail. I have recommended we consider a laparotomy with probable appendectomy. Surgical details and risks were gone over. The patient seems to understand and agrees to proceed. Status: Acute Attestations Medical Necessity Statement*: Based on my medical assessment, presenting symptoms, medical accuity and consideration of surgical therapy, I expect this patient will require treatment in the hospital for a period spanning at least 2 midnights. 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
[2021-03-28] MEDS: piperacillin-tazobactam 3.375 GM in sodium chloride 0.9% (plus) 50 ML IV ×3 (04:36→21:05)
[2021-03-28] MEDS: metoprolol tartrate 1 mg/1 mL SDV 5 mL 5 MG IVP (04:37)
[2021-03-28] MEDS: metroNIDAZOLE IV 500 MG/100 ML PREMIX 100 MG IV (05:28)
[2021-03-28 05:44] LABS: Anion Gap 14.6 (5-19); Blood Urea Nitrogen 22 mg/dL (8-23); Carbon Dioxide 27 mmol/L (22-29); Chloride 103 mmol/L (98-107); Glucose 114 mg/dL (65-115); Lactic Sepsis W/Reflex 1.3 mmol/L (0.5-2.2); Magnesium 1.8 mg/dL (1.7-2.3); Osmolality Calculated 294 mOsm/kg (285-295); Potassium 4.6 mmol/L (3.5-5.1); Sodium 140 mmol/L (136-145)
--- NOTE | 2021-03-28 05:44 | ANES.PREANE2 ---
Pre-Anesthetic Assessment Pre-Anesthetic Assessment: Height/Weight: Height 1.78 m Weight 96.026 kg Temp Pulse Resp BP Pulse Ox 98.3 F 103 H 20 H 155/76 96 03/28/21 04:00 03/28/21 04:00 03/28/21 04:00 03/28/21 04:00 03/28/21 04:00 Preop Diagnosis: Screening colonoscopy Proposed Procedure: Operation Date: 03/28/21 05:20 Proposed Procedures p Laparoscopic Appendectomy(Not Applicable) - Desmond Morocho MD Was Beta Kulwant taken within 24 hours: Yes Was Clonidine taken within 24 hours: N/A Last intake: Intake Last Liquid Date 03/27/21 Last Liquid Time 08:00 Last Solid Date 03/27/21 Last Solid Time 08:00 Social: Social History: No alcohol and No tobacco (h/o smoking) Exam: Pre-Anes Outpt Exam: alert, oriented x 3 and regular rate & rhythm Additional Exam Findings (including area of procedure): wheezing Airway: Submandibular: WNL Cervical ROM: WNL MP: 2 Pulmonary: Pulmonary: COPD CV/HEM: CV/HEM: Afib, Arrythmia, CAD (CABG), CHF and HTN GI: GI: GERD Metabolic: Metabolic: Thyroid Anesthetic Plan: ASA status: 3E Anesthesia: General (RSI) Risk of > 500 ml blood loss (7ml/kg in children): No Meds/Allergies Current Medications: Current Medications Generic Name Dose Route Start Last Admin Trade Name Freq PRN Reason Stop Dose Admin Sodium Chloride 1,000 mls @ 100 m ls/hr 03/28/21 00:43 03/28/21 01:24 Sodium Chloride 0.9% IV 100 mls/hr .Q10H JUAN DAVID Administration Piperacillin Sod/T azobactam 50 mls @ 100 mls/ hr 03/28/21 05:00 03/28/21 05:35 Sod 3.375 gm/ So dium Chloride IV Infused Q8H JUAN DAVID Infusion Protocol Metoprolol Tartrat e 5 mg 03/28/21 04:15 03/28/21 04:37 Metoprolol Tartr ate 1 Mg/1 Ml Sdv 5 Ml IVP 5 mg Q4H JUAN DAVID Administration Morphine Sulfate 4 mg 03/28/21 00:43 03/28/21 01:24 Morphine 4 Mg/Ml Sdv 1 Ml IVP 4 mg Q4H PRN Administration SEVERE PAIN Ondansetron HCl 4 mg 03/28/21 00:43 03/28/21 02:11 Ondansetron 2 Mg /Ml Sdv 2 Ml IVP 4 mg Q6H PRN Administration NAUSEA AND VOMITI NG PFSH Anesthesia PFSH: Medical History (Updated 03/28/21 @ 04:40 by Desmond Morocho MD) Anemia Atrial fibrillation CHF (congestive heart failure) Last echocardiogram normal EF, grade 2/4 diastolic dysfunction October 2019 Colon polyps COPD (chronic obstructive pulmonary disease) Coronary artery disease GERD (gastroesophageal reflux disease) Hyperlipidemia Hypertension Hypothyroidism Surgical History (Updated 03/28/21 @ 03:28 by Shauna Bernal MD) History of colonoscopy (~04/2020) History of coronary artery bypass graft (03/2019) [address] [place] [address] History of knee surgery History of vasectomy S/P cholecystectomy Family History Other CAD (coronary artery disease) Social History (Updated 03/28/21 @ 01:46 by Shauna Bernal MD) Smoking and tobacco status: former smoker Quit status (tobacco): has quit using tobacco Year quit tobacco: 2017 - PPD x 52 Years Alcohol intake: never Substance/Drug Use: never Counseling given: No Lives independently: Yes Household members: none Marital status: Legally Current occupational status: retired Current gender identity: Male Data Anesthesia CBC & Chem 7: 03/27/21 18:50 03/27/21 18:50 Other Labs: Laboratory Results - last 48 hr 03/27/21 03/27/21 03/27/21 18:50 18:50 18:50 WBC 6.7 RBC 4.90 Hgb 14.1 Hct 43.3 MCV 88.4 MCH 28.8 MCHC 32.6 RDW 16.0 H Plt Count 167 MPV 10.5 H Neut % (Auto) 71.6 Lymph % (Auto) 17.2 [place] % (Auto) 9.1 Eos % (Auto) 1.5 Baso % (Auto) 0.3 Neut # (Auto) 4.78 Lymph # (Auto) 1.2 [place] # (Auto) 0.6 Eos # (Auto) 0.1 Baso # (Auto) 0.0 Nucleated RBC % (auto) 0 Nucleated RBCs # 0.0 PT 14.80 INR 1.13 Sodium 139 Potassium 4.3 Chloride 104 Carbon Dioxide 25 Anion Gap 14.3 BUN 21 Creatinine 1.0 GFR Calculation 74.8 L Glucose 160 H Calculated Osmolality 294 Lactate Calcium 8.4 L Total Bilirubin 0.5 AST 14 ALT 14 Alkaline Phosphatase 76 Troponin T Baseline Troponin T 120 Minute Delta Troponin T Troponin T Hi Sens 6Hr Troponin T Hi Sens 6Hr Delta Total Protein 6.2 L Albumin 3.7 Globulin 2.5 Digoxin 0.7 03/27/21 03/27/21 03/27/21 18:50 18:50 20:50 WBC RBC Hgb Hct MCV MCH MCHC RDW Plt Count MPV Neut % (Auto) Lymph % (Auto) [place] % (Auto) Eos % (Auto) Baso % (Auto) Neut # (Auto) Lymph # (Auto) [place] # (Auto) Eos # (Auto) Baso # (Auto) Nucleated RBC % (auto) Nucleated RBCs # PT INR Sodium Potassium Chloride Carbon Dioxide Anion Gap BUN Creatinine GFR Calculation Glucose Calculated Osmolality Lactate 1.0 Calcium Total Bilirubin AST ALT Alkaline Phosphatase Troponin T Baseline 11 Troponin T 120 Minute 10.38 Delta Troponin T -0.62 L Troponin T Hi Sens 6Hr Troponin T Hi Sens 6Hr Delta Total Protein Albumin Globulin Digoxin 03/28/21 00:31 WBC RBC Hgb Hct MCV MCH MCHC RDW Plt Count MPV Neut % (Auto) Lymph % (Auto) [place] % (Auto) Eos % (Auto) Baso % (Auto) Neut # (Auto) Lymph # (Auto) [place] # (Auto) Eos # (Auto) Baso # (Auto) Nucleated RBC % (auto) Nucleated RBCs # PT INR Sodium Potassium Chloride Carbon Dioxide Anion Gap BUN Creatinine GFR Calculation Glucose Calculated Osmolality Lactate Calcium Total Bilirubin AST ALT Alkaline Phosphatase Troponin T Baseline Troponin T 120 Minute Delta Troponin T Troponin T Hi Sens 6Hr 12.61 Troponin T Hi Sens 6Hr Delta 1.61 Total Protein Albumin Globulin Digoxin Cardiac Studies: No Data to Display
--- NOTE | 2021-03-28 06:22 | PM.OP ---
Operative Report Date of procedure: March 28, 2021 Pre-op Diagnosis: Perforated appendicitis. Post-op diagnosis: same Procedure Done: Laparotomy with appendectomy. Specimens removed/disposition: 1. Appendix. 2. Intra-abdominal fluid cultures. Surgeon: Desmond Morocho Anesthesia: General Estimated blood loss (mL): 10 Complications: None. Condition: stable Disposition: PACU Procedure: The patient was brought to the operating room and was placed in a supine position on the operating room table. General endotracheal anesthesia was induced. The abdomen was prepped and draped in a sterile fashion. A lower midline incision was carried out. Cautery was used to divide the subcutaneous tissue and the midline fascia and the peritoneal cavity was entered. The patient had a moderate amount of cloudy yellow fluid in the pelvis. Eventually the incision was carried out a little higher up and around the umbilicus slightly for better exposure. Palpation in the right lower quadrant revealed an early phlegmon and some small bowel was seen with obvious inflammatory peel on it. As the phlegmon was broken up the fluid became more cloudy/purulent and intra-abdominal cultures were taken. The appendix was identified stuck to the posterior peritoneum. There was a perforation about a [address] way up the appendix and a small amount of stool was coming from the perforation site. The appendix was freed up bluntly and the mesoappendix was divided with cautery. The base of the appendix was ligated with 2 separate ties of 2-0 Vicryl and the appendix was excised. The peritoneal cavity was then irrigated with multiple liters of saline until all of the irrigant returned clear. No ongoing issues were seen anywhere. The decision was made not to place a drain since the fluid had been so diffuse in the abdomen. The midline fascia was closed using a running looped suture of #1 PDS. The subcutaneous tissue was irrigated and the skin was approximated using skin johnny. A sterile dressing was applied and the patient was eventually taken to the recovery room in stable condition postoperatively.
[2021-03-28] MEDS: ipratropium-albuterol 3 mL Neb INHALATION ×2 (07:06→20:46)
--- NOTE | 2021-03-28 07:30 | PC.NURSE ---
0710 ready to give report, floor nurse not available 0720 floor nurse not available to take report 0730 floor nurse not available to take report
[2021-03-28 07:58] LABS: Basophils % 0.5 %; Eosinophils % 0.5 %; Lymphocytes # 0.3 10^3/uL (0.8-4.8); Lymphocytes % 3.3 %; Mean Corpuscular HGB Conc 31.9 g/dL (30.0-36.0); Mean Corpuscular Hemoglobin 27.9 pg (28.0-34.0); Mean Corpuscular Volume 87.4 fl (80-94); Mean Platelet Volume 10.9 fL (7.4-10.4); Monocytes # 0.6 10^3/uL (0.2-0.9); Monocytes % 7.5 %; Neutrophils # 6.82 10^3/uL (1.8-7.7); Neutrophils % 87.7 %; Nucleated Red Blood Cells % 0 %; Platelet Count 170 10^3/cmm (130-400); Red Blood Count 5.38 10^6/uL (4.1-5.3); White Blood Count 7.8 10^3/uL (4.0-10.0)
--- NOTE | 2021-03-28 08:28 | ANE.PACU2 ---
Inpatient post-anesthesia follow up: Airway intact: Yes Vital signs: Temperature 98 F Pulse Rate [Monito r] 64 Pulse Rate 90 Respiratory Rate 20 Blood Pressure [Ri ght Arm] 144/74 Blood Pressure 123/70 Pulse Oximetry 95 Oxygen Delivery Me thod Nasal Cannula Oxygen Flow Rate 2 Fraction of Inspir ed Oxygen Hydration adequate: Yes Pain level: 3 Mental status: Baseline
--- NOTE | 2021-03-28 08:46 | PC.RESP ---
patient had a duoneb treatment. med wont scan at this time.
[2021-03-28] MEDS: pantoprazole 40 mg SDV IVP (09:18)
[2021-03-28] MEDS: ketorolac 30 mg/mL INJ 15 MG IVP (09:18)
--- NOTE | 2021-03-28 09:30 | PC.CHAP ---
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 outside machinist helper visit [] Patient/Family/Request visit [] Outpatient visit [] Follow-up visit [] Physician referral [] Code/Alert [x] Routine visit [] Staff referral [] Actively dying [x] Patient sleeping [] Family support [] [] Out of room [] Palliative care [] [] Receiving care in room [] Pre-surgical visit [] Trauma [] Long length of stay [] ICU visit [] Other: Relational/Emotional Strength [] Patient feels connected with others/family/visitors/staff [] Distress [] Loneliness/isolation [] Abandonment Spirituality of Patient [] Person of [place] [] Attends Adventist of their [place] [] Believes in Prayer [] Reads Bible or Zoroastrian materials [] There are Spiritual issues to be addressed Preschool Assistant Interventions [] Prayer [] Active listening [] Non-anxious presence [] Spiritual/emotional support [] Crisis/trauma care [] Spiritual counseling [] Bereavement support [] Provided bereavement packet [] Provided Bible/devotional materials [] Provided toy/stuffed animal, coloring book to patient or family member [] Provided Communion [] Anointing/[place] [] Salvation [] Completed spiritual assessment [] Other: Impact on Illness or Injury [] Angry [] Fearful [] Anxious [] Often cries [] Exhaustion [] Unable to work [] Unable to attend evangelical [] Unable to walk/stand [] Unable to read [] Unable to drive [] Unable to eat/drink [] Unable to sleep [] Unable to be with family [] Patient intubated [] Other: Summary Time spent with patient
[2021-03-28 10:58] LABS: Estmated Average Glucose 120; Hemoglobin A1C 5.8 % (4.0-6.0)
[2021-03-28] MEDS: heparin 5,000 unit/mL INJ 1 mL 5000 UNIT SUBCUT (11:28)
--- NOTE | 2021-03-28 11:41 | PC.NURSE ---
DR SRINIVASAN MATTSON NOTIFIED OF PREVIOUS DROP IN BLOOD PRESSURE, SHALLOW BREATHING WITH AUDIBLE WHEEZES - CONTINUED NAUSEA - NO EMESIS UP - NO ORDERS REC'D
--- NOTE | 2021-03-28 12:21 | PC.PHAR ---
PT [facility]-PT STATES THEY WERE SUPPOSE TO GIVE HIM A RX FOR VIT C PT STATES HE HASNT STARTED YET AND [facility]
--- NOTE | 2021-03-28 13:09 | P.PN_ITS ---
Subjective Subjective: Interval history: Nauseated. Feels like he is going to vomit. Feels he is getting more short of breath. Vitals/I&O/Wt Last Vital Signs Temp 98 F 03/28/21 07:48 Pulse 92 03/28/21 08:46 Resp 17 03/28/21 08:36 BP 123/70 03/28/21 07:48 Pulse Ox 95 03/28/21 08:36 03/27/21 03/28/21 03/28/21 22:59 06:59 14:59 Intake Total 50 / 50 400 / 450 1000 / 1000 Output Total 0 / 0 Balance 50 / 50 400 / 450 1000 / 1000 Weight last 48 hrs Weight 96.026 kg Physical Exam Const: COMMON NORMALS: patient oriented x3 GENERAL APPEARANCE: not comfortable (Nauseated) HENMT: COMMON NORMALS: oropharynx normal Neck/C-Spine: COMMON NORMALS: no JVD Resp: COMMON NORMALS: normal respiratory effort AUSCULTATION: diminished l shanon sounds Cardio: COMMON NORMALS: no JVD, regular rhythm, S1 normal heart sound present, S2 normal heart sound present and No murmurs present (Cardio) RHYTHM: regular rhythm HEART SOUNDS: S1 normal heart sound present and S2 normal heart sound present GI: COMMON NORMALS: Normal to inspection, nondistended, normoactive bowel sounds present, Soft to palpation and non-tender PALPATION: Yes Soft to palpation OTHER: Lower abdominal incision covered with dressing. No bleeding. Extremity: COMMON NORMALS: no joint enlargement and no pedal edema Neuro: COMMON NORMALS: patient oriented x3 and moves all extremities Skin: COMMON NORMALS: no rashes or lesions noted GENERAL SKIN EXAM: no rashes or lesions noted Data : 03/28/21 05:10 03/28/21 05:10 A&P Assessment and plan (1) Acute appendicitis: Acute appendicitis with some evidence of perforation. Status post l aparotomy and appendectomy this morning. Nauseated. Has received Zofran. Add Reglan as needed. Currently n.p.o. However, also getting more short of breath, sounds tight. History of diastolic CHF. Will hold additional IVF for now. Monitor oxygenation. Follow intra-abdominal fluid cultures. Continue Zosyn. Resume Eliquis in the evening. Status: Acute Qualifiers: Acute appendicitis type: with localized peritonitis Appendicitis abscess presence: unspecified whether abscess present Appendicitis gangrene presence: unspecified whether gangrene present Appendicitis perforation presence: unspecified whether perforation present Qualified Code(s): K35.30 - Acute appendicitis with localized peritonitis, without perforation or gangrene (2) Coronary artery disease: Status post bypass surgery in March 2019. Aspirin, statin, beta-blockade. Twelve-lead EKG with sinus rhythm, right bundle branch block and inferior changes that are unchanged from prior EKGs in July of this year Status: Chronic Qualifiers: Associated angina: without angina Coronary Disease-Associated Artery/Lesion type: bypass graft [place] vs. transplanted heart: [place] heart Qualified Code(s): I25.810 - Atherosclerosis of coronary artery bypass graft(s) without angina pectoris (3) Heart failure with preserved ejection fraction: Chronically on diuretics, although these were on hold perioperatively. Hold any further IVF for now. Monitor oxygenation, if signs of CHF exacerbation, resume diuretic. Status: Chronic Qualifiers: Heart failure chronicity: chronic Qualified Code(s): I50.32 - Chronic diastolic (congestive) heart failure (4) Atrial fibrillation: Prior home medication list revealed digoxin in addition to beta-blockade Eliquis currently on hold. Resume in the evening. Status: Chronic Qualifiers: Atrial fibrillation type: paroxysmal Qualified Code(s): I48.0 - Paroxysmal atrial fibrillation (5) Chronic anticoagulation: On Eliquis secondary to atrial fibrillation Status: Chronic (6) COPD (chronic obstructive pulmonary disease): Chronically on albuterol Spiriva and Symbicort Status: Chronic Qualifiers: COPD type: emphysema Emphysema type: unspecified Qualified Code(s): J43.9 - Emphysema, unspecified (7) Hyperlipidemia: Chronically on atorvastatin Status: Chronic Qualifiers: Hyperlipidemia type: mixed hyperlipidemia Qualified Code(s): E78.2 - Mixed hyperlipidemia (8) Hypertension: Chronically on diuretic therapy and beta-blockade Status: Chronic Qualifiers: Hypertension type: unspecified secondary hypertension Qualified Code(s): I15.9 - Secondary hypertension, unspecified (9) GERD (gastroesophageal reflux disease): Chronically on PPI Status: Chronic Qualifiers: Esophagitis presence: without esophagitis Qualified Code(s): K21.9 - Gastro-esophageal reflux disease without esophagitis (10) Hypothyroidism: Chronically on levothyroxine Status: Chronic Qualifiers: Hypothyroidism type: acquired Qualified Code(s): E03.9 - Hypothyroidism, unspecified Attestations Medical Necessity Statement*: Continue admission for assessment management following appendicitis, with evidence of perforation, laparotomy and appendecto my, continue bowel rest and antibiotics, fluid management with history of diastolic respiratory failure. 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 of Care Code Acute Plant Engineering Supervisor for g Fwd Exam Comprehensive Diagnoses Acute appendicitis K35.30 Acute appendicitis type: with localized peritonitis Appendicitis abscess presence: unspecified whether abscess present Appendicitis gangrene presence: unspecified whether gangrene present Appendicitis perforation presence: unspecified whether perforation present Coronary artery disease I25.810 Associated angina: without angina Coronary Disease-Associated Artery/Lesion type: bypass graft [place] vs. transplanted heart: [place] heart Heart failure with preserved ejection fraction I50.32 Heart failure chronicity: chronic Atrial fibrillation I48.0 Atrial fibrillation type: paroxysmal Chronic anticoagulation Z79.01 COPD (chronic obstructive pulmonary disease) J43.9 COPD type: emphysema Emphysema type: unspecified Hyperlipidemia E78.2 Hyperlipidemia type: mixed hyperlipidemia Hypertension I15.9 Hypertension type: unspecified secondary hypertension GERD (gastroesophageal reflux disease) K21.9 Esophagitis presence: without esophagitis Hypothyroidism E03.9 Hypothyroidism type: acquired
[2021-03-28] MEDS: metoclopramide 5 mg/mL SDV 2 mL IVP ×2 (15:42→19:59)
[2021-03-28] MEDS: metoprolol tartrate 1 mg/1 mL SDV 5 mL 2.5 MG IVP (19:59)
--- NOTE | 2021-03-28 22:09 | PC.NURSE ---
NAUSEA/EMESIS Pt had nausea this evening and had 300ml dark brown liquid emesis. He received IV Reglan. Day shift nurse had said the Reglan worked best earlier today. Pt was drinking quite a bit of water and had some juice brought in. Was instructed to not drink anything more until can talk with Dr. Dr Morocho was in surgery but called as soon as got message from nurse. Order received to place pt NPO except ice chips for now. Pt aware
[2021-03-29] VITALS (12 sets, daily range): BP systolic 130–173; BP diastolic 62–93; PULSE 89–117; RESP 16–22; TEMP 36.6–37; O2SAT 90–95
[2021-03-29] MEDS: metoprolol tartrate 1 mg/1 mL SDV 5 mL 2.5 MG IVP ×6 (00:18→20:22)
--- NOTE | 2021-03-29 00:33 | PC.NURSE ---
i reported high pulse 112
[2021-03-29] MEDS: morphine 4 mg/mL SDV 1 mL IVP ×2 (02:10→20:23)
[2021-03-29] MEDS: metoclopramide 5 mg/mL SDV 2 mL IVP ×3 (02:11→20:22)
[2021-03-29 02:59] LABS: Basophils % 0.3 %; Hematocrit 44.6 % (42.0-52.0); Hemoglobin 14.2 g/dL (11.7-16.6); Lymphocytes # 0.4 10^3/uL (0.8-4.8); Lymphocytes % 5.6 %; Mean Corpuscular HGB Conc 31.8 g/dL (30.0-36.0); Mean Corpuscular Hemoglobin 28.1 pg (28.0-34.0); Mean Corpuscular Volume 88.1 fl (80-94); Mean Platelet Volume 10.6 fL (7.4-10.4); Monocytes # 0.5 10^3/uL (0.2-0.9); Monocytes % 6.1 %; Neutrophils # 6.76 10^3/uL (1.8-7.7); Neutrophils % 87.5 %; Nucleated Red Blood Cells % 0 %; Platelet Count 159 10^3/cmm (130-400); Red Blood Count 5.06 10^6/uL (4.1-5.3); Red Cell Distribution Width 16.4 % (12.1-15.1); White Blood Count 7.7 10^3/uL (4.0-10.0)
[2021-03-29 03:22] LABS: Anion Gap 15.1 (5-19); Blood Urea Nitrogen 32 mg/dL (8-23); Calcium 8.6 mg/dL (8.5-10.5); Carbon Dioxide 27 mmol/L (22-29); Chloride 101 mmol/L (98-107); Glomerular Filtration Rate 60.6 mL/min (90-130); Glucose 154 mg/dL (65-115); Osmolality Calculated 298 mOsm/kg (285-295); Potassium 4.1 mmol/L (3.5-5.1); Sodium 139 mmol/L (136-145)
[2021-03-29] MEDS: piperacillin-tazobactam 3.375 GM in sodium chloride 0.9% (plus) 50 ML IV ×3 (04:56→20:51)
--- NOTE | 2021-03-29 05:38 | PC.NURSE ---
SHIFT SUMMARY Has continued to have nausea tonight. An additional 100ml dark brown emesis. Has had a total of 1100ml urine output per Andrade. Urine is very cloudy and dark karen. Remains NPO. Has had few ice chips. Medicated X2 with IV Morphine and Reglan for pain & nausea this shift. Dressing to medial abdomen remains intact. Abd is softly distended. No BS heard. Says abdomen is tender. IV Metoprolol being given q4h as ordered. IV antibiotics given
[2021-03-29] MEDS: pantoprazole 40 mg SDV IVP (07:47)
[2021-03-29] MEDS: ondansetron 2 mg/ML SDV 2 mL 4 MG IVP (07:48)
[2021-03-29] MEDS: ipratropium-albuterol 3 mL Neb INHALATION ×2 (09:16→19:41)
--- NOTE | 2021-03-29 09:28 | P.PN_ITS ---
Subjective Subjective: Interval history: The patient indicates that he is not passing any flatus. He had some nausea issues after surgery yesterday but says that is better. Vitals/I&O/Wt Last Vital Signs Temp 98.0 F 03/29/21 07:36 Pulse 102 H 03/29/21 09:18 Resp 17 03/29/21 09:13 BP 173/93 03/29/21 07:36 Pulse Ox 95 03/29/21 09:18 03/28/21 03/29/21 03/29/21 22:59 06:59 14:59 Intake Total 50 / 1100 50 / 1100 Output Total 1000 / 2200 1200 / 2200 Balance -950 / -1100 -1150 / -1100 Weight last 48 hrs Weight 211 lb 11.2 oz Physical Exam Narrative: EXAM NARRATIVE: The abdomen is somewhat distended and has very few bowel sounds. The dressing is intact. Urinary Catheter Management^: Andrade: Cath Placed During This Visit: no Reason for Continuing Indwelling Catheter: Other Data : 03/29/21 02:40 03/29/21 02:40 Micro: Microbiology 03/28/21 05:55 Gram Stain - Final Peritoneal Fluid A&P Assessment and plan (1) Perforated appendicitis: Status post laparotomy with appendectomy on 03/28/2021. The patient did have evidence of perforation. Awaiting peritoneal culture results. Continue IV antibiotics. Up in chair/ambulate today. Status: Acute Attestations Medical Necessity Statement*: Patient requires continued inpatient care for intravenous antibiotics following perforated appendicitis. 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 of Care Code Acute Boring Machine Operator Production for Kevin Arceo Diagnoses Perforated appendicitis K35.32
[2021-03-29] MEDS: sodium chloride 0.45% 1,000 ML 100 ML IV (09:55)
--- NOTE | 2021-03-29 13:26 | P.PN_ITS ---
Subjective Subjective: Interval history: Nauseated, again having some vomiting this morning. He is having some wheezing. Denies chest pain. Vitals/I&O/Wt Last Vital Signs Temp 97.9 F 03/29/21 11:31 Pulse 115 H 03/29/21 11:31 Resp 18 03/29/21 11:31 BP 139/78 03/29/21 11:31 Pulse Ox 94 03/29/21 11:31 03/28/21 03/29/21 03/29/21 22:59 06:59 14:59 Intake Total 50 / 1050 50 / 1100 286.667 / 286.667 Output Total 1000 / 1000 1200 / 2200 Balance -950 / 50 -1150 / -1100 286.667 / 286.667 Weight last 48 hrs Weight 96.026 kg Physical Exam Const: COMMON NORMALS: patient oriented x3 GENERAL APPEARANCE: not comfortable (Nauseated) HENMT: COMMON NORMALS: oropharynx normal Neck/C-Spine: COMMON NORMALS: no JVD Resp: COMMON NORMALS: normal respiratory effort AUSCULTATION: diminished lung sounds Cardio: COMMON NORMALS: no JVD, regular rhythm, S1 normal heart sound present, S2 normal heart sound present and No murmurs present (Cardio) RHYTHM: regular rhythm HEART SOUNDS: S1 normal heart sound present and S2 normal heart sound present GI: COMMON NORMALS: Normal to inspection, nondistended, normoactive bowel sounds present, Soft to palpation and non-tender PALPATION: Yes Soft to palpation OTHER: Lower abdominal incision covered with dressing. No bleeding. Extremity: COMMON NORMALS: no joint enlargement and no pedal edema Neuro: COMMON NORMALS: patient oriented x3 and moves all extremities Skin: COMMON NORMALS: no rashes or lesions noted GENERAL SKIN EXAM: no rashes or lesions noted Urinary Catheter Management^: Andrade: Cath Placed During This Visit: no Reason for Continuing Indwelling Catheter: Other Data : 03/29/21 02:40 03/29/21 02:40 Micro: Microbiology 03/28/21 05:55 Gram Stain - Final Peritoneal Fluid Body Fluid Culture - Preliminary Gram Negative Rods A&P Assessment and plan (1) Acute appendicitis: Ongoing ileus, with nausea, vomiting. Continue n.p.o. Supportive care. He has not been having the best time with his breathing, although his wheezing, with some increase in BUN, mild bump in creatinine receiving gentle hydration. Monitor for any signs of fluid overload. With some bump in creatinine, would avoid NSAIDs. Acute appendicitis with some evidence of perforation. Status post laparotomy and appendectomy this morning. Nauseated. Has received Zofran. Reglan as needed. Follow intra-abdominal fluid cultures -gram-negative rods on Gram stain. Continue Zosyn. With ongoing ileus, positive intra-abdominal Gram stain cultures for now resumed on Lovenox, not Eliquis. Status: Acute Qualifiers: Acute appendicitis type: with localized peritonitis Appendicitis abscess presence: unspecified whether abscess present Appendicitis gangrene presence: unspecified whether gangrene present Appendicitis perforation presence: unspecified whether perforation present Qualified Code(s): K35.30 - Acute appendicitis with localized peritonitis, without perforation or gangrene (2) Coronary artery disease: Status post bypass surgery in March 2019. Aspirin, statin, beta-blockade. Twelve-lead EKG with sinus rhythm, right bundle branch block and inferior changes that are unchanged from prior EKGs in July of this year Status: Chronic Qualifiers: Associated angina: without angina Coronary Disease-Associated Artery/Lesion type: bypass graft [place] vs. transplanted heart: [place] heart Qualified Code(s): I25.810 - Atherosclerosis of coronary artery bypass graft(s) without angina pectoris (3) Heart failure with preserved ejection fraction: Chronically on diuretics, although these were on hold perioperatively. Hold any further IVF for now. Monitor oxygenation, if signs of CHF exacerbation, resume diuretic. Status: Chronic Qualifiers: Heart failure chronicity: chronic Qualified Code(s): I50.32 - Chronic diastolic (congestive) heart failure (4) Atrial fibrillation: Prior home medication list revealed digoxin in addition to beta-blockade Eliquis currently on hold. For now resumed on Lovenox. Status: Chronic Qualifiers: Atrial fibrillation type: paroxysmal Qualified Code(s): I48.0 - Paroxysmal atrial fibrillation (5) Chronic anticoagulation: On Eliquis secondary to atrial fibrillation Status: Chronic (6) COPD (chronic obstructive pulmonary disease): Perhaps mild exacerbation with wheezing, some dyspnea. Added DuoNeb as needed. Chronically on albuterol Spiriva and Symbicort Status: Chronic Qualifiers: COPD type: emphysema Emphysema type: unspecified Qualified Code(s): J43.9 - Emphysema, unspecified (7) Hyperlipidemia: Chronically on atorvastatin Status: Chronic Qualifiers: Hyperlipidemia type: mixed hyperlipidemia Qualified Code(s): E78.2 - Mixed hyperlipidemia (8) Hypertension: Chronically on diuretic therapy and beta-blockade Status: Chronic Qualifiers: Hypertension type: unspecified secondary hypertension Qualified Code(s): I15.9 - Secondary hypertension, unspecified (9) GERD (gastroesophageal reflux disease): Chronically on PPI Status: Chronic Qualifiers: Esophagitis presence: without esophagitis Qualified Code(s): K21.9 - Gastro-esophageal reflux disease without esophagitis (10) Hypothyroidism: Chronically on levothyroxine Status: Chronic Qualifiers: Hypothyroidism type: acquired Qualified Code(s): E03.9 - Hypothyroidism, unspecified Attestations Medical Necessity Statement*: Continue admission for assessment management of complicated appendicitis, with perforation, positive intra-abdominal cultures, continued antibiotic, supportive care secondary to ileus. 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 of Care Code Acute Information Assurance Specialist for [facility] Fwd Exam Comprehensive Diagnoses Acute appendicitis K35.30 Acute appendicitis type: with localized peritonitis Appendicitis abscess presence: unspecified whether abscess present Appendicitis gangrene presence: unspecified whether gangrene present Appendicitis perforation presence: unspecified whether perforation present Coronary artery disease I25.810 Associated angina: without angina Coronary Disease-Associated Artery/Lesion type: bypass graft [place] vs. transplanted heart: [place] heart Heart failure with preserved ejection fraction I50.32 Heart failure chronicity: chronic Atrial fibrillation I48.0 Atrial fibrillation type: paroxysmal Chronic anticoagulation Z79.01 COPD (chronic obstructive pulmonary disease) J43.9 COPD type: emphysema Emphysema type: unspecified Hyperlipidemia E78.2 Hyperlipidemia type: mixed hyperlipidemia Hypertension I15.9 Hypertension type: unspecified secondary hypertension GERD (gastroesophageal reflux disease) K21.9 Esophagitis presence: without esophagitis Hypothyroidism E03.9 Hypothyroidism type: acquired
[2021-03-29] MEDS: enoxaparin 100 mg/mL Syringe SUBCUT (14:40)
[2021-03-29] MEDS: docusate sodium 100 mg Capsule PO (17:01)
[2021-03-29] MEDS: sennosides 8.6 mg Tablet 17.2 MG PO (20:52)
[2021-03-30] VITALS (22 sets, daily range): BP systolic 107–157; BP diastolic 54–88; PULSE 92–182; RESP 17–20; TEMP 36.4–37; O2SAT 92–98
[2021-03-30] MEDS: sodium chloride 0.45% 1,000 ML 100 ML IV ×3 (00:25→20:07)
[2021-03-30] MEDS: metoprolol tartrate 1 mg/1 mL SDV 5 mL 2.5 MG IVP (00:26)
--- NOTE | 2021-03-30 00:56 | ECG_ITS ---
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 Measurements Intervals [place] Rate: 165 P: NE: QRS: -13 QRSD: 126 T: 59 QT: 285 QTc: 473 Interpretive Statements ATRIAL FLUTTER/TACHYCARDIA WITH RAPID VENTRICULAR RESPONSE RIGHT BUNDLE BRANCH BLOCK [120+ ms QRS DURATION, UPRIGHT V1, 40+ ms S IN I/aVL/V4/V5/V6] INFERIOR MYOCARDIAL INFARCTION , PROBABLY OLD [40+ ms Q WAVE AND/OR ST/T ABNORMALITY IN II/aVF] MARKED ST DEPRESSION, CONSIDER SUBENDOCARDIAL INJURY [0.2+ mV ST DEPRESSION] ACUTE [place] Compared to ECG 03/28/2021 03:15:51 ST (T wave) deviation now present Sinus tachycardia no longer present T-wave abnormality no longer present Possible ischemia no longer present Myocardial infarct finding still present Electronically Signed On 03-30-2021 1:26:27 CDT by Mathew Sanchez M.D. [id number]
--- NOTE | 2021-03-30 01:00 | PC.NURSE ---
HR Heart rate noted to be 169 with VS check. Was asymptomatic and was given scheduled IV Metoprolol. No response noted with med. Pt was not on telemetry but was placed on. Dr Bernal notified of continued HR in 160's with new orders received for increased dose of IV Metoprolol and to start Digoxin
[2021-03-30] MEDS: metoprolol tartrate 1 mg/1 mL SDV 5 mL 5 MG IVP ×5 (01:14→15:05)
[2021-03-30] MEDS: digoxin 250 mcg/ml INJ 2 mL IVP (01:14)
[2021-03-30] MEDS: enoxaparin 100 mg/mL Syringe SUBCUT ×2 (01:56→12:53)
[2021-03-30 03:25] LABS: Basophils % 0.3 %; Eosinophils % 0.2 %; Hematocrit 43.7 % (42.0-52.0); Hemoglobin 13.9 g/dL (11.7-16.6); Lymphocytes # 0.8 10^3/uL (0.8-4.8); Lymphocytes % 8.1 %; Mean Corpuscular HGB Conc 31.8 g/dL (30.0-36.0); Mean Corpuscular Volume 87.9 fl (80-94); Mean Platelet Volume 10.5 fL (7.4-10.4); Monocytes # 0.6 10^3/uL (0.2-0.9); Monocytes % 5.8 %; Neutrophils # 8.69 10^3/uL (1.8-7.7); Neutrophils % 84.8 %; Nucleated Red Blood Cells % 0 %; Platelet Count 188 10^3/cmm (130-400); Red Blood Count 4.97 10^6/uL (4.1-5.3); Red Cell Distribution Width 16.6 % (12.1-15.1); White Blood Count 10.2 10^3/uL (4.0-10.0)
[2021-03-30 03:55] LABS: Alanine Aminotransferase 10 U/L (0-41); Albumin Level 2.8 g/dL (3.5-5.2); Alkaline Phosphatase 61 IU/L (40-130); Anion Gap 10.2 (5-19); Aspartate Amino Transferase 14 U/L (0-40); Blood Urea Nitrogen 31 mg/dL (8-23); Calcium 8.3 mg/dL (8.5-10.5); Carbon Dioxide 30 mmol/L (22-29); Chloride 102 mmol/L (98-107); Globulin 3.4 g/dL (1.3-4.6); Glomerular Filtration Rate 74.8 mL/min (90-130); Glucose 106 mg/dL (65-115); Magnesium 2.3 mg/dL (1.7-2.3); Osmolality Calculated 293 mOsm/kg (285-295); Phosphorus 2.2 mg/dL (2.5-4.5); Potassium 4.2 mmol/L (3.5-5.1); Sodium 138 mmol/L (136-145); Total Bilirubin 0.7 mg/dL (0.15-1.2); Total Protein 6.2 g/dL (6.6-8.7)
[2021-03-30 04:58] LABS: Digoxin 1.2 ng/mL (0.6-1.2)
[2021-03-30] MEDS: piperacillin-tazobactam 3.375 GM in sodium chloride 0.9% (plus) 50 ML IV ×3 (05:13→20:07)
--- NOTE | 2021-03-30 05:59 | PC.NURSE ---
SHIFT SUMMARY Has rested for intervals tonight. Medicated X1 for abd pain with Morphine IV. Also requested the Reglan with Morphine. Reported it making him a little nauseated. Has had no emesis tonight and no c/o nausea other than with the Morphine. Episode of rapid HR subsided with the increased IV Metoprolol and Digoxin given. Has been showing SR with HR in 90's to 100's. IV fluids infusing at 100ml/hr rate and receiving IV antibiotics. Voiding per urinal. Remains NPO except ice chips. Has still not passes any flatus. Abd appears more distended this am. Surgical dressing in place.
[2021-03-30] MEDS: digoxin 250 mcg/ml INJ 2 mL 125 MCG IVP (08:05)
--- NOTE | 2021-03-30 08:13 | ECG_ITS ---
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 Measurements Intervals [place] Rate: 105 P: 82 [place]: 147 QRS: -37 QRSD: 134 T: 50 QT: 321 QTc: 426 Interpretive Statements SINUS TACHYCARDIA WITH OCCASIONAL SUPRAVENTRICULAR PREMATURE COMPLEXES RIGHT BUNDLE BRANCH BLOCK [120+ ms QRS DURATION, UPRIGHT V1, 40+ ms S IN I/aVL/V4/V5/V6] INFERIOR MYOCARDIAL INFARCTION , OF INDETERMINATE AGE [40+ ms Q WAVE AND/OR ST/T ABNORMALITY IN II/aVF] MARKED ST DEPRESSION, CONSIDER SUBENDOCARDIAL INJURY [0.2+ mV ST DEPRESSION] ACUTE [place] Compared to ECG 03/30/2021 01:03:42 Atrial flutter no longer present Myocardial infarct finding still present ST (T wave) deviation still present Electronically Signed On 03-30-2021 23:49:20 CDT by Mathew Sanchez M.D. [id number] f
[2021-03-30] MEDS: pantoprazole 40 mg SDV IVP (08:14)
[2021-03-30] MEDS: ipratropium-albuterol 3 mL Neb INHALATION ×2 (08:14→20:28)
[2021-03-30] MEDS: docusate sodium 100 mg Capsule PO ×2 (08:15→17:23)
[2021-03-30] MEDS: aspirin 81 mg EC Tablet PO (08:15)
[2021-03-30] MEDS: ketorolac 30 mg/mL INJ 15 MG IVP (09:55)
[2021-03-30] MEDS: morphine 4 mg/mL SDV 1 mL IVP ×2 (09:56→20:07)
--- NOTE | 2021-03-30 10:14 | PM.PN ---
Subjective Subjective: Interval history: The patient is no longer vomiting but says he is feeling a little bit better. He still has not passed flatus and feels like he is still distended. Vitals/I&O/Wt Last Vital Signs Temp 97.7 F 03/30/21 08:00 Pulse 104 H 03/30/21 08:18 Resp 18 03/30/21 09:56 BP 157/88 03/30/21 08:00 Pulse Ox 95 03/30/21 08:18 03/29/21 03/30/21 03/30/21 22:59 06:59 14:59 Intake Total 50 / 1150.000 813.333 / 3453.898 9554.333 / 1003.333 Output Total 400 / 900 500 / 900 Balance -350 / 250.000 313.333 / 893.916 1536.333 / 1003.333 Physical Exam Narrative: EXAM NARRATIVE: Bowel sounds remain hypoactive. The midline dressing is intact. He has the expected amount of tenderness and does seem like he has a postoperative ileus with some distention. Urinary Catheter Management^: Andrade: Cath Placed During This Visit: no Reason for Continuing Indwelling Catheter: Other Data : 03/30/21 02:48 03/30/21 02:48 Micro: Microbiology 03/28/21 05:55 Anaerobic Culture - Preliminary Peritoneal Fluid 03/28/21 05:55 Gram Stain - Final Peritoneal Fluid Body Fluid Culture - Preliminary Gram Negative Rods A&P Assessment and plan (1) Perforated appendicitis: Status post laparotomy with appendectomy on 03/28/2021. The patient did have evidence of perforation. Gram stain of peritoneal fluid is growing some gram-negative rods. Identification and sensitivities to follow. Continue broad-spectrum antibiotics for now. Increase activity. The patient feels like he is little bit shaky when he is up so I am going to get physical therapy to assist. Status: Acute Attestations Medical Necessity Statement*: See admitting service's notation. 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 of Care Code Acute Sales Review Clerk for Kevin Arceo Diagnoses Perforated appendicitis K35.32
--- NOTE | 2021-03-30 12:12 | PC.SOCIAL ---
IMM updated IMM updated with patient. Verbalized an understanding. Copy Pg 2 provided. Initialled, dated, timed, and placed in chart.
--- NOTE | 2021-03-30 14:55 | ECG_ITS ---
[facility] Test Date: 2021-03-30 Pat Name: Gabino Jones Department: Room: 263 Gender: Male Psychiatric Cns: : 1955 Requested By: Tam Ritchie Order Number: [id number] Mick MD: Mathew Sanchez M.D. Measurements Intervals [place] Rate: 103 P: 82 [place]: 149 QRS: -28 QRSD: 125 T: 80 QT: 340 QTc: 447 Interpretive Statements SINUS TACHYCARDIA WITH OCCASIONAL SUPRAVENTRICULAR PREMATURE COMPLEXES RIGHT BUNDLE BRANCH BLOCK [120+ ms QRS DURATION, UPRIGHT V1, 40+ ms S IN I/aVL/V4/V5/V6] INFERIOR MYOCARDIAL INFARCTION , OF INDETERMINATE AGE [40+ ms Q WAVE AND/OR ST/T ABNORMALITY IN II/aVF] ST DEVIATION AND MARKED T-WAVE ABNORMALITY, CONSIDER ANTEROLATERAL ISCHEMIA [-0.5+ mV T-WAVE IN I/aVL/V3-V6] Compared to ECG 03/30/2021 08:07:59 T-wave abnormality now present Possible ischemia now present ST (T wave) deviation no longer present Myocardial infarct finding still present Electronically Signed On 03-30-2021 23:56:55 CDT by Mathew Sanchez M.D. [id number]
--- NOTE | 2021-03-30 17:03 | PC.PT ---
Attempted evaluation several times today, patient sleeping soundly, then busy with nursing, then patient ambulated with nursing, came back to see him and patient states he was returned to bed due to high heart rate, states he is not on his regular medicines, advised patient to discuss with physician, will reattempt tomorrow.
[2021-03-30] MEDS: metoprolol tartrate 1 mg/1 mL SDV 5 mL 7.5 MG IVP ×2 (18:15→21:17)
[2021-03-30] MEDS: sennosides 8.6 mg Tablet 17.2 MG PO (20:07)
--- NOTE | 2021-03-30 21:22 | PC.NURSE ---
Pt heart rate increasing to 160s-170s. RN called Dr. Bernal at 2109 to make aware. New order to administer scheduled metoprolol now. Pt denies feeling SOB or in distress stating it just makes me shake everywhere .
--- NOTE | 2021-03-30 21:49 | P.PN_ITS ---
Subjective Subjective: Interval history: Today multiple episodes of A. fib with RVR with palpitations. No further vomiting this morning, but no bowel movement, not passing flatus. Vitals/I&O/Wt Last Vital Signs Temp 97.5 F L 03/30/21 20:00 Pulse 97 03/30/21 20:35 Resp 19 H 03/30/21 20:28 BP 151/54 03/30/21 20:00 Pulse Ox 93 03/30/21 20:28 03/30/21 03/30/21 03/30/21 06:59 14:59 22:59 Intake Total 813.333 / 3440.900 2502.333 / 8244.708 1470 / 2173.333 Output Total 500 / 900 400 / 400 Balance 313.333 / 250.000 723.333 / 824.529 7587 / 1773.333 Physical Exam Const: COMMON NORMALS: patient oriented x3 GENERAL APPEARANCE: not comfortable (Nauseated) HENMT: COMMON NORMALS: oropharynx normal Neck/C-Spine: COMMON NORMALS: no JVD Resp: COMMON NORMALS: normal respiratory effort AUSCULTATION: diminished lung sounds Cardio: COMMON NORMALS: no JVD, regular rhythm, S1 normal heart sound present, S2 normal heart sound present and No murmurs present (Cardio) RHYTHM: regular rhythm HEART SOUNDS: S1 normal heart sound present and S2 normal heart sound present GI: COMMON NORMALS: Normal to inspection, nondistended, normoactive bowel sounds present, Soft to palpation and non-tender PALPATION: Yes Soft to palpation OTHER: Lower abdominal incision covered with dressing. No bleeding. Extremity: COMMON NORMALS: no joint enlargement and no pedal edema Neuro: COMMON NORMALS: patient oriented x3 and moves all extremities Skin: COMMON NORMALS: no rashes or lesions noted GENERAL SKIN EXAM: no rashes or lesions noted Urinary Catheter Management^: Andrade: Cath Placed During This Visit: no Reason for Continuing Indwelling Catheter: Other Data : 03/30/21 02:48 03/30/21 02:48 Micro: Microbiology 03/28/21 05:55 Anaerobic Culture - Preliminary Peritoneal Fluid 03/28/21 05:55 Gram Stain - Final Peritoneal Fluid Body Fluid Culture - Preliminary Proteus mirabilis A&P Assessment and plan (1) Atrial fibrillation: Recurrent episodes of atrial flutter with aberrant conduction heart rates up into 160s with palpitations. Blood pressure becoming transiently soft. On IV metoprolol, dose increased to 7.5 mg every 4 hours. Given extra dose 5 mg today. Still additional episode A. fib with RVR, given 20 mg IV bolus of Cardizem. Appears to responded favorably. Maintaining blood pressure. Continue digoxin. Electrolytes look okay. Eliquis currently on hold. For now resumed on Lovenox. Status: Chronic Qualifiers: Atrial fibrillation type: paroxysmal Qualified Code(s): I48.0 - Paroxysmal atrial fibrillation (2) Acute appendicitis: Continue supportive care for ileus, bowel rest. Gentle IV hydration. Decrease rate. Acute appendicitis with some evidence of perforation. Status post laparotomy and appendectomy. Zofran. Reglan as needed. Follow intra-abdominal fluid cultures grew Proteus Mirabella's resistant to tetracycline. Continue Zosyn. Status: Acute Qualifiers: Acute appendicitis type: with localized peritonitis Appendicitis abscess presence: unspecified whether abscess present Appendicitis gangrene presence: unspecified whether gangrene present Appendicitis perforation presenc e: unspecified whether perforation present Qualified Code(s): K35.30 - Acute appendicitis with localized peritonitis, without perforation or gangrene (3) Coronary artery disease: Status post bypass surgery in March 2019. Aspirin, statin, beta-blockade. Twelve-lead EKG with sinus rhythm, right bundle branch block and inferior changes that are unchanged from prior EKGs in July of this year Status: Chronic Qualifiers: Coronary Disease-Associated Artery/Lesion type: bypass graft [place] vs. transplanted heart: [place] heart Associated angina: without angina Qualified Code(s): I25.810 - Atherosclerosis of coronary artery bypass graft(s) without angina pectoris (4) Heart failure with preserved ejection fraction: Chronically on diuretics, although these were on hold perioperatively. Hold any further IVF for now. Monitor oxygenation, if signs of CHF exacerbation, resume diuretic. Status: Chronic Qualifiers: Heart failure chronicity: chronic Qualified Code(s): I50.32 - Chronic diastolic (congestive) heart failure (5) Chronic anticoagulation: On Eliquis secondary to atrial fibrillation Status: Chronic (6) COPD (chronic obstructive pulmonary disease): Perhaps mild exacerbation with wheezing, some dyspnea. Added DuoNeb as needed. Chronically on albuterol Spiriva and Symbicort Status: Chronic Qualifiers: COPD type: emphysema Emphysema type: unspecified Qualified Code(s): J43.9 - Emphysema, unspecified (7) Hyperlipidemia: Chronically on atorvastatin Status: Chronic Qualifiers: Hyperlipidemia type: mixed hyperlipidemia Qualified Code(s): E78.2 - Mixed hyperlipidemia (8) Hypertension: Chronically on diuretic therapy and beta-blockade Status: Chronic Qualifiers: Hypertension type: unspecified secondary hypertension Qualified Code(s): I15.9 - Secondary hypertension, unspecified (9) GERD (gastroesophageal reflux disease): Chronically on PPI Status: Chronic Qualifiers: Esophagitis presence: without esophagitis Qualified Code(s): K21.9 - Gastro-esophageal reflux disease without esophagitis (10) Hypothyroidism: Chronically on levothyroxine Status: Chronic Qualifiers: Hypothyroidism type: acquired Qualified Code(s): E03.9 - Hypothyroidism, unspecified Attestations Medical Necessity Statement*: Continue admission for optimization of control of A. fib with RVR while unable to take oral medications due to bowel rest with ongoing ileus following complicated appendicitis. 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 of Care Code Acute Negotiations Director for [facility] Fwd Diagnoses Atrial fibrillation I48.0 Atrial fibrillation type: paroxysmal Acute appendicitis K35.30 Acute appendicitis type: with localized peritonitis Appendicitis abscess presence: unspecified whether abscess present Appendicitis gangrene presence: unspecified whether gangrene present Appendicitis perforation presence: unspecified whether perforation present Coronary artery disease I25.810 Coronary Disease-Associated Artery/Lesion type: bypass graft [place] vs. 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
[2021-03-31] VITALS (19 sets, daily range): BP systolic 142–162; BP diastolic 70–79; PULSE 69–92; RESP 16–18; TEMP 36.4–36.8; O2SAT 90–97
[2021-03-31] MEDS: metoprolol tartrate 1 mg/1 mL SDV 5 mL 7.5 MG IVP ×6 (02:02→22:38)
[2021-03-31] MEDS: morphine 4 mg/mL SDV 1 mL IVP ×2 (02:03→12:17)
[2021-03-31] MEDS: enoxaparin 100 mg/mL Syringe SUBCUT ×2 (02:03→12:18)
[2021-03-31 02:58] LABS: Basophils % 0.1 %; Eosinophils # 0.1 10^3/uL (0.0-0.8); Eosinophils % 0.8 %; Hematocrit 40.1 % (42.0-52.0); Hemoglobin 12.5 g/dL (11.7-16.6); Lymphocytes # 0.7 10^3/uL (0.8-4.8); Lymphocytes % 9.3 %; Mean Corpuscular HGB Conc 31.2 g/dL (30.0-36.0); Mean Corpuscular Hemoglobin 27.8 pg (28.0-34.0); Mean Corpuscular Volume 89.1 fl (80-94); Mean Platelet Volume 10.1 fL (7.4-10.4); Monocytes # 0.5 10^3/uL (0.2-0.9); Monocytes % 6.8 %; Neutrophils # 5.81 10^3/uL (1.8-7.7); Nucleated Red Blood Cells % 0 %; Platelet Count 170 10^3/cmm (130-400); Red Cell Distribution Width 16.5 % (12.1-15.1); White Blood Count 7.1 10^3/uL (4.0-10.0)
[2021-03-31 03:20] LABS: Alanine Aminotransferase 11 U/L (0-41); Albumin Level 2.7 g/dL (3.5-5.2); Alkaline Phosphatase 59 IU/L (40-130); Aspartate Amino Transferase 13 U/L (0-40); Blood Urea Nitrogen 27 mg/dL (8-23); Calcium 8.1 mg/dL (8.5-10.5); Carbon Dioxide 28 mmol/L (22-29); Chloride 100 mmol/L (98-107); Globulin 3.2 g/dL (1.3-4.6); Glomerular Filtration Rate 96.7 mL/min (90-130); Glucose 92 mg/dL (65-115); Osmolality Calculated 287 mOsm/kg (285-295); Sodium 136 mmol/L (136-145); Total Bilirubin 0.9 mg/dL (0.15-1.2); Total Protein 5.9 g/dL (6.6-8.7)
[2021-03-31] MEDS: ipratropium-albuterol 3 mL Neb INHALATION ×4 (03:24→20:10)
[2021-03-31] MEDS: piperacillin-tazobactam 3.375 GM in sodium chloride 0.9% (plus) 50 ML IV ×3 (04:00→20:02)
[2021-03-31] MEDS: pantoprazole 40 mg SDV IVP (07:28)
[2021-03-31] MEDS: docusate sodium 100 mg Capsule PO (07:29)
[2021-03-31] MEDS: digoxin 250 mcg/ml INJ 2 mL 125 MCG IVP (07:29)
[2021-03-31] MEDS: aspirin 81 mg EC Tablet PO (07:29)
--- NOTE | 2021-03-31 12:03 | PM.PN ---
Subjective Subjective: Interval history: The patient says he is feeling better. He started passing flatus but still feels bloated. Vitals/I&O/Wt Last Vital Signs Temp 98.2 F 03/31/21 11:37 Pulse 86 03/31/21 11:37 Resp 18 03/31/21 11:37 BP 160/78 03/31/21 11:37 Pulse Ox 97 03/31/21 11:37 03/30/21 03/31/21 03/31/21 22:59 06:59 14:59 Intake Total 1050 / 2511.666 338.333 / 2511.666 50 / 50 Output Total 325 / 725 325 / 325 Balance 1050 / 1786.666 13.333 / 1786.666 -275 / -275 Weight last 48 hrs Weight 213 lb 6.4 oz Physical Exam Narrative: EXAM NARRATIVE: The abdomen has better bowel sounds but is still distended. The dressing was removed and his incision looks good. Urinary Catheter Management^: Andrade: Cath Placed During This Visit: no Reason for Continuing Indwelling Catheter: Other Data : 03/31/21 02:45 03/31/21 02:45 Micro: Microbiology 03/28/21 05:55 Anaerobic Culture - Preliminary Peritoneal Fluid 03/28/21 05:55 Gram Stain - Final Peritoneal Fluid Body Fluid Culture - Final Proteus mirabilis A&P Assessment and plan (1) Perforated appendicitis: Status post laparotomy with appendectomy on 03/28/2021. The patient did have evidence of perforation. I am going to allow the patient a clear liquid diet but told him to take it slowly. Status: Acute Attestations Medical Necessity Statement*: See admitting service's notation. 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 of Care Code Acute Day Care Attendant for Kevin Arceo Diagnoses Perforated appendicitis K35.32
[2021-03-31] MEDS: ketorolac 30 mg/mL INJ 15 MG IVP (20:01)
[2021-03-31] MEDS: sennosides 8.6 mg Tablet 17.2 MG PO (20:02)
--- NOTE | 2021-03-31 22:24 | P.PN_ITS ---
Subjective Subjective: Interval history: Feeling a little better. Passing some gas. Abdomen still distended. No vomiting. Trying some ice chips, clear liquids as per his discussion with surgery. No chest pain. No trouble breathing. Planning to get up and walk. Vitals/I&O/Wt Last Vital Signs Temp 97.6 F 03/31/21 20:00 Pulse 81 03/31/21 20:00 Resp 18 03/31/21 20:00 BP 150/70 03/31/21 20:00 Pulse Ox 95 03/31/21 20:00 03/31/21 03/31/21 03/31/21 06:59 14:59 22:59 Intake Total 338.333 / 2511.666 50 / 50 770 / 820 Output Total 325 / 725 325 / 325 300 / 625 Balance 13.333 / 1786.666 -275 / -275 470 / 195 Weight last 48 hrs Weight 96.797 kg Physical Exam Const: COMMON NORMALS: patient oriented x3 GENERAL APPEARANCE: not comfortable (Nauseated) HENMT: COMMON NORMALS: oropharynx normal Neck/C-Spine: COMMON NORMALS: no JVD Resp: COMMON NORMALS: normal respiratory effort AUSCULTATION: diminished lung sounds Cardio: COMMON NORMALS: no JVD, regular rhythm, S1 normal heart sound present, S2 normal heart sound present and No murmurs present (Cardio) RHYTHM: regular rhythm HEART SOUNDS: S1 normal heart sound present and S2 normal heart sound present GI: COMMON NORMALS: Normal to inspection, nondistended, normoactive bowel sounds present and non-tender INSPECTION: Yes abdominal distension OTHER: Lower abdominal incision covered with dressing. No bleeding. Extremity: COMMON NORMALS: no joint enlargement and no pedal edema Neuro: COMMON NORMALS: patient oriented x3 and moves all extremities Skin: COMMON NORMALS: no rashes or lesions noted GENERAL SKIN EXAM: no rashes or lesions noted Urinary Catheter Management^: Andrade: Cath Placed During This Visit: no Reason for Continuing Indwelling Catheter: Other Data : 03/31/21 02:45 03/31/21 02:45 Micro: Microbiology 03/28/21 05:55 Anaerobic Culture - Preliminary Peritoneal Fluid Fusobacterium varium 03/28/21 05:55 Gram Stain - Final Peritoneal Fluid Body Fluid Culture - Final Proteus mirabilis A&P Assessment and plan (1) Atrial fibrillation: Heart rates have improved. Continue 7.5 mg IV metoprolol every 4 hours. Once reestablishes oral intake, transition back to p.o. medication. Continue digoxin. Electrolytes look okay. Eliquis currently on hold. For now resumed on Lovenox. Status: Chronic Qualifiers: Atrial fibrillation type: paroxysmal Qualified Code(s): I48.0 - Paroxysmal atrial fibrillation (2) Acute appendicitis: Ileus improving. Trialing clear liquids. Continue supportive care for ileus, bowel rest. Discontinued IV hydration. Acute appendicitis with some evidence of perforation. Status post laparotomy and appendectomy. Zofran. Reglan as needed. Follow intra-abdominal fluid cultures grew Proteus Mirabella's resistant to tetr acycline. Continue Zosyn. Status: Acute Qualifiers: Acute appendicitis type: with localized peritonitis Appendicitis abscess presence: unspecified whether abscess present Appendicitis gangrene presence: unspecified whether gangrene present Appendicitis perforation presence: unspecified whether perforation present Qualified Code(s): K35.30 - Acute appendicitis with localized peritonitis, without perforation or gangrene (3) Coronary artery disease: Status post bypass surgery in March 2019. Aspirin, statin, beta-blockade. Twelve-lead EKG with sinus rhythm, right bundle branch block and inferior changes that are unchanged from prior EKGs in July of this year Status: Chronic Qualifiers: Coronary Disease-Associated Artery/Lesion type: bypass graft [place] vs. transplanted heart: [place] heart Associated angina: without angina Qualified Code(s): I25.810 - Atherosclerosis of coronary artery bypass graft(s) without angina pectoris (4) Heart failure with preserved ejection fraction: Chronically on diuretics, although these were on hold perioperatively. Hold any further IVF for now. Monitor oxygenation, if signs of CHF exacerbation, resume diuretic. Status: Chronic Qualifiers: Heart failure chronicity: chronic Qualified Code(s): I50.32 - Chronic diastolic (congestive) heart failure (5) Chronic anticoagulation: On Eliquis secondary to atrial fibrillation Status: Chronic (6) COPD (chronic obstructive pulmonary disease): Perhaps mild exacerbation with wheezing, some dyspnea. Added DuoNeb as needed. Chronically on albuterol Spiriva and Symbicort Status: Chronic Qualifiers: COPD type: emphysema Emphysema type: unspecified Qualified Code(s): J43.9 - Emphysema, unspecified (7) Hyperlipidemia: Chronically on atorvastatin Status: Chronic Qualifiers: Hyperlipidemia type: mixed hyperlipidemia Qualified Code(s): E78.2 - Mixed hyperlipidemia (8) Hypertension: Chronically on diuretic therapy and beta-blockade Status: Chronic Qualifiers: Hypertension type: unspecified secondary hypertension Qualified Code(s): I15.9 - Secondary hypertension, unspecified (9) GERD (gastroesophageal reflux disease): Chronically on PPI Status: Chronic Qualifiers: Esophagitis presence: without esophagitis Qualified Code(s): K21.9 - Gastro-esophageal reflux disease without esophagitis (10) Hypothyroidism: Chronically on levothyroxine Status: Chronic Qualifiers: Hypothyroidism type: acquired Qualified Code(s): E03.9 - Hypothyroidism, unspecified Attestations Medical Necessity Statement*: Continue optimization of atrial fibrillation with RVR in the setting of inability to reliably take oral intake yet, p.o. intake trial with improving ileus. 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 of Care Code Acute Mathematical Engineer for Chg Fwd Diagnoses Atrial fibrillation I48.0 Atrial fibrillation type: paroxysmal Acute appendicitis K35.30 Acute appendicitis type: with localized peritonitis Appendicitis abscess presence: unspecified whether abscess present Appendicitis gangrene presence: unspecified whether gangrene present Appendicitis perforation presence: unspecified whether perforation present Coronary artery disease I25.810 Coronary Disease-Associated Artery/Lesion type: bypass graft [place] vs. transplanted heart: [place] heart Associated angina: without angina Heart failure with preserved ejection fraction I50.32 Heart failure chronicity: chronic Chronic anticoagulation Z79.01 COPD (chronic obstructive pulmonary disease) J43.9 COPD type: emphysema Emphysema type: unspecified Hyperlipidemia E78.2 Hyperlipidemia type: mixed hyperlipidemia Hypertension I15.9 Hypertension type: unspecified secondary hypertension GERD (gastroesophageal reflux disease) K21.9 Esophagitis presence: without esophagitis Hypothyroidism E03.9 Hypothyroidism type: acquired
[2021-04-01] VITALS (13 sets, daily range): BP systolic 122–186; BP diastolic 77–88; PULSE 64–102; RESP 16–20; TEMP 36.5–36.8; O2SAT 95–97
[2021-04-01] MEDS: metoprolol tartrate 1 mg/1 mL SDV 5 mL 7.5 MG IVP ×6 (02:01→23:58)
[2021-04-01] MEDS: enoxaparin 100 mg/mL Syringe SUBCUT ×2 (02:01→12:35)
[2021-04-01] MEDS: piperacillin-tazobactam 3.375 GM in sodium chloride 0.9% (plus) 50 ML IV ×3 (04:35→20:54)
--- NOTE | 2021-04-01 04:42 | PC.NURSE ---
Pt reported small liquid BM to this RN. Dark in color. Denies BM appearing black but dark brown and enough to color the water .
[2021-04-01 06:17] LABS: Basophils % 0.4 %; Eosinophils # 0.1 10^3/uL (0.0-0.8); Hematocrit 41.8 % (42.0-52.0); Hemoglobin 13.1 g/dL (11.7-16.6); Lymphocytes # 0.6 10^3/uL (0.8-4.8); Lymphocytes % 12.4 %; Mean Corpuscular HGB Conc 31.3 g/dL (30.0-36.0); Mean Corpuscular Hemoglobin 27.9 pg (28.0-34.0); Mean Corpuscular Volume 88.9 fl (80-94); Mean Platelet Volume 10.3 fL (7.4-10.4); Monocytes # 0.4 10^3/uL (0.2-0.9); Monocytes % 7.8 %; Neutrophils # 3.87 10^3/uL (1.8-7.7); Neutrophils % 77.6 %; Nucleated Red Blood Cells % 0 %; Platelet Count 189 10^3/cmm (130-400); Red Cell Distribution Width 16.2 % (12.1-15.1)
[2021-04-01 06:36] LABS: Alanine Aminotransferase 13 U/L (0-41); Albumin Level 2.8 g/dL (3.5-5.2); Alkaline Phosphatase 82 IU/L (40-130); Anion Gap 14.1 (5-19); Aspartate Amino Transferase 15 U/L (0-40); Blood Urea Nitrogen 21 mg/dL (8-23); Calcium 8.4 mg/dL (8.5-10.5); Carbon Dioxide 25 mmol/L (22-29); Chloride 105 mmol/L (98-107); Globulin 3.7 g/dL (1.3-4.6); Glomerular Filtration Rate 112.8 mL/min (90-130); Glucose 105 mg/dL (65-115); Osmolality Calculated 293 mOsm/kg (285-295); Potassium 4.1 mmol/L (3.5-5.1); Sodium 140 mmol/L (136-145); Total Protein 6.5 g/dL (6.6-8.7)
[2021-04-01] MEDS: ketorolac 30 mg/mL INJ 15 MG IVP ×3 (06:40→20:55)
--- NOTE | 2021-04-01 06:51 | PC.NURSE ---
Pt reported to this RN another BM. RN observed dark green/brown liquid stool with soft formed pieces.
[2021-04-01] MEDS: pantoprazole 40 mg SDV IVP (07:32)
[2021-04-01] MEDS: docusate sodium 100 mg Capsule PO ×2 (07:33→16:59)
[2021-04-01] MEDS: aspirin 81 mg EC Tablet PO (07:33)
[2021-04-01] MEDS: digoxin 250 mcg/ml INJ 2 mL 125 MCG IVP (07:38)
--- NOTE | 2021-04-01 09:31 | PM.PN ---
Subjective Subjective: Interval history: Feeling better. Actually had a couple bowel movements. Still feels somewhat distended. Vitals/I&O/Wt Last Vital Signs Temp 98.0 F 04/01/21 07:37 Pulse 80 04/01/21 07:37 Resp 16 04/01/21 07:37 BP 162/88 04/01/21 07:37 Pulse Ox 96 04/01/21 07:37 03/31/21 04/01/21 04/01/21 22:59 06:59 14:59 Intake Total 770 / 870 50 / 870 Output Total 300 / 685 60 / 685 Balance 470 / 185 -10 / 185 Weight last 48 hrs Weight 213 lb 12.8 oz Weight 213 lb 6.4 oz Physical Exam Narrative: EXAM NARRATIVE: Bowel sounds remain hypoactive. He is still somewhat distended. Incision looks good. Urinary Catheter Management^: Andrade: Cath Placed During This Visit: no Reason for Continuing Indwelling Catheter: Other Data : 04/01/21 06:10 04/01/21 06:10 Micro: Microbiology 03/28/21 05:55 Anaerobic Culture - Preliminary Peritoneal Fluid Fusobacterium varium 03/28/21 05:55 Gram Stain - Final Peritoneal Fluid Body Fluid Culture - Final Proteus mirabilis A&P Assessment and plan (1) Perforated appendicitis: Status post laparotomy with appendectomy on 03/28/2021. The patient did have evidence of perforation. I am going to allow the patient a clear liquid diet but told him to take it slowly. Continue clear liquids. Status: Acute Attestations Medical Necessity Statement*: See admitting service's notation. 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 of Care Code Acute Assurance Auditor for Kevin Arceo Diagnoses Perforated appendicitis K35.32
[2021-04-01] MEDS: ipratropium-albuterol 3 mL Neb INHALATION ×2 (09:43→20:44)
--- NOTE | 2021-04-01 14:12 | PC.SOCIAL ---
IMM Update pg 2 of IMM updated and reviewed w/ patient. Copy provided.
[2021-04-01] MEDS: sennosides 8.6 mg Tablet 17.2 MG PO (20:55)
--- NOTE | 2021-04-01 21:21 | PM.PN ---
Subjective Subjective: Interval history: Still distended abdomen. Appetite not very good. Has been having some difficulty with urination with incomplete voiding. No vomiting. Vitals/I&O/Wt Last Vital Signs Temp 98 F 04/01/21 15:45 Pulse 96 04/01/21 20:52 Resp 20 H 04/01/21 20:46 BP 122/77 04/01/21 15:45 Pulse Ox 97 04/01/21 20:46 04/01/21 04/01/21 04/01/21 06:59 14:59 22:59 Intake Total 50 / 870 50 / 50 410 / 460 Output Total 60 / 685 350 / 350 Balance -10 185 50 / 50 60 / 110 Weight last 48 hrs Weight 96.978 kg Weight 96.797 kg Physical Exam Const: COMMON NORMALS: patient oriented x3 GENERAL APPEARANCE: not comfortable (Nauseated) HENMT: COMMON NORMALS: oropharynx normal Neck/C-Spine: COMMON NORMALS: no JVD Resp: COMMON NORMALS: normal respiratory effort AUSCULTATION: diminished lung sounds Cardio: COMMON NORMALS: no JVD, regular rhythm, S1 normal heart sound present, S2 normal heart sound present and No murmurs present (Cardio) RHYTHM: regular rhythm HEART SOUNDS: S1 normal heart sound present and S2 normal heart sound present GI: COMMON NORMALS: Normal to inspection, nondistended, normoactive bowel sounds present and non-tender INSPECTION: Yes abdominal distension OTHER: Lower abdominal incision covered with dressing. No bleeding. Extremity: COMMON NORMALS: no joint enlargement and no pedal edema Neuro: COMMON NORMALS: patient oriented x3 and moves all extremities Skin: COMMON NORMALS: no rashes or lesions noted GENERAL SKIN EXAM: no rashes or lesions noted Urinary Catheter Management^: Andrade: Cath Placed During This Visit: yes Reason for Continuing Indwelling Catheter: Acute Urinary Retention or Obstruction Urinary Catheter Date of Insertion: 04/01/21 Urinary Catheter Time of Insertion: 16:01 Data : 04/01/21 06:10 04/01/21 06:10 Micro: Microbiology 03/28/21 05:55 Anaerobic Culture - Preliminary Peritoneal Fluid Fusobacterium varium A&P Assessment and plan (1) Atrial fibrillation: Additional episode of A. fib with RVR with aberrant conduction today. Responded to advancement of metoprolol 1 hour before designated dose. Recheck digoxin level. Once reestablishes oral intake, transition back to p.o. medication. Continue metoprolol IV, IV digoxin. Electrolytes look okay. Eliquis currently on hold. For now resumed on Lovenox. Status: Chronic Qualifiers: Atrial fibrillation type: paroxysmal Qualified Code(s): I48.0 - Paroxysmal atrial fibrillation (2) Acute appendicitis: Trial of diet. Encouraged him to ambulate. For now Place Andrade catheter due to incomplete voiding while ileus is resolving. Voiding trial prior to discharge. Ileus with slow improvement. Continue supportive care for ileus, bowel rest. Off IV hydration. Acute appendicitis with some evidence of perforation. Status post laparotomy and appendectomy. Zofran. Reglan as needed. Follow intra-abdominal fluid cultures grew Proteus mirabilis and Fusobacterium on anaerobic culture Continue Zosyn. Status: Acute Qualifiers: Acute appendicitis type: with localized peritonitis Appendicitis abscess presence: unspecified whether abscess present Appendicitis gangrene presence: unspecified whether gangrene present Appendicitis perforation presence: unspecified whether perforation present Qualified Code(s): K35.30 - Acute appendicitis with localized peritonitis, without perforation or gangrene (3) Coronary artery disease: Status post bypass surgery in March 2019. Aspirin, statin, beta-blockade. Twelve-lead EKG with sinus rhythm, right bundle branch block and inferior changes that are unchanged from prior EKGs in July of this year Status: Chronic Qualifiers: Coronary Disease-Associated Artery/Lesion type: bypass graft [place] vs. transplanted heart: [place] heart Associated angina: without angina Qualified Code(s): I25.810 - Atherosclerosis of coronary artery bypass graft(s) without angina pectoris (4) Heart failure with preserved ejection fraction: Chronically on diuretics, although these were on hold perioperatively. Hold any further IVF for now. Monitor oxygenation, if signs of CHF exacerbation, resume diuretic. Status: Chronic Qualifiers: Heart failure chronicity: chronic Qualified Code(s): I50.32 - Chronic diastolic (congestive) heart failure (5) Chronic anticoagulation: On Eliquis secondary to atrial fibrillation Status: Chronic (6) COPD (chronic obstructive pulmonary disease): Perhaps mild exacerbation improved. Wheezing improved. Added DuoNeb as needed. Chronically on albuterol Spiriva and Symbicort Status: Chronic Qualifiers: COPD type: emphysema Emphysema type: unspecified Qualified Code(s): J43.9 - Emphysema, unspecified (7) Hyperlipidemia: Chronically on atorvastatin Status: Chronic Qualifiers: Hyperlipidemia type: mixed hyperlipidemia Qualified Code(s): E78.2 - Mixed hyperlipidemia (8) Hypertension: Chronically on diuretic therapy and beta-blockade Status: Chronic Qualifiers: Hypertension type: unspecified secondary hypertension Qualified Code(s): I15.9 - Secondary hypertension, unspecified (9) GERD (gastroesophageal reflux disease): Chronically on PPI Status: Chronic Qualifiers: Esophagitis presence: without esophagitis Qualified Code(s): K21.9 - Gastro-esophageal reflux disease without esophagitis (10) Hypothyroidism: Chronically on levothyroxine Status: Chronic Qualifiers: Hypothyroidism type: acquired Qualified Code(s): E03.9 - Hypothyroidism, unspecified Attestations Medical Necessity Statement*: Continue admission for management following complicated appendicitis, with perforation, ongoing ileus, optimization of control of A. fib with RVR episodes. 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 of Care Code Acute Group Rooms Coordinator for Chg Fwd Diagnoses Atrial fibrillation I48.0 Atrial fibrillation type: paroxysmal Acute appendicitis K35.30 Acute appendicitis type: with localized peritonitis Appendicitis abscess presence: unspecified whether abscess present Appendicitis gangrene presence: unspecified whether gangrene present Appendicitis perforation presence: unspecified whether perforation present Coronary artery disease I25.810 Coronary Disease-Associated Artery/Lesion type: bypass graft [place] vs. 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
[2021-04-02] VITALS (14 sets, daily range): BP systolic 117–143; BP diastolic 64–77; PULSE 70–94; RESP 16–19; TEMP 36.6–36.8; O2SAT 94–98
[2021-04-02] MEDS: enoxaparin 100 mg/mL Syringe SUBCUT (02:22)
[2021-04-02] MEDS: metoprolol tartrate 1 mg/1 mL SDV 5 mL 7.5 MG IVP ×6 (02:22→23:57)
[2021-04-02] MEDS: ipratropium-albuterol 3 mL Neb INHALATION ×3 (03:02→20:40)
[2021-04-02] MEDS: piperacillin-tazobactam 3.375 GM in sodium chloride 0.9% (plus) 50 ML IV ×3 (05:01→21:13)
[2021-04-02 06:52] LABS: Digoxin 0.5 ng/mL (0.6-1.2)
[2021-04-02] MEDS: pantoprazole 40 mg SDV IVP (08:22)
[2021-04-02] MEDS: digoxin 250 mcg/ml INJ 2 mL 125 MCG IVP (08:22)
[2021-04-02] MEDS: docusate sodium 100 mg Capsule PO ×2 (08:35→17:00)
[2021-04-02] MEDS: aspirin 81 mg EC Tablet PO (08:35)
--- NOTE | 2021-04-02 08:42 | P.PN_ITS ---
Subjective Subjective: Interval history: The patient is feeling better today. His appetite has improved. He has a Andrade catheter back in because he was having a hard time apparently emptying his bladder and tells me that the [facility] has been following him for some prostate issues and he was supposed to see a urologist at some point. He is having multiple loose bowel movements. Vitals/I&O/Wt Last Vital Signs Temp 98.2 F 04/02/21 07:42 Pulse 79 04/02/21 07:42 Resp 16 04/02/21 07:42 BP 128/75 04/02/21 07:42 Pulse Ox 96 04/02/21 07:42 04/01/21 04/02/21 04/02/21 22:59 06:59 14:59 Intake Total 410 / 510 50 / 510 Output Total 350 / 800 450 / 800 Balance 60 / -290 -400 / -290 Weight last 48 hrs Weight 206 lb 14.4 oz Weight 213 lb 12.8 oz Physical Exam Narrative: EXAM NARRATIVE: Bowel sounds are better. The abdomen is less dis tended. The incision looks good. Urinary Catheter Management^: Andrade: Cath Placed During This Visit: yes Reason for Continuing Indwelling Catheter: Acute Urinary Retention or Obstruction Urinary Catheter Date of Insertion: 04/01/21 Urinary Catheter Time of Insertion: 16:01 Data : 04/01/21 06:10 04/01/21 06:10 Micro: Microbiology 03/28/21 05:55 Anaerobic Culture - Preliminary Peritoneal Fluid Fusobacterium varium A&P Assessment and plan (1) Perforated appendicitis: Status post laparotomy with appendectomy on 03/28/2021. The patient did have evidence of perforation. Advance diet to GI soft. I told the patient that we do NOT want to slow his bowel movements down right now following perforated appendicitis. The patient continues on broad-spectrum antibiotics but I will plan on discontinuing these tomorrow if he is still doing well. 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 Status: Acute Attestations Medical Necessity Statement*: See admitting service's notation. 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 of Care Code Acute Contract Clerk Automobile for Kevin Arceo Diagnoses Perforated appendicitis K35.32
--- NOTE | 2021-04-02 12:11 | P.PN_ITS ---
Subjective Subjective: Interval history: He is gradually improving. He is passing flatus having some bowel movements. Trying to advance some diet. Still a little abdominal distention. Andrade catheter was placed yesterday. Vitals/I&O/Wt Last Vital Signs Temp 98.2 F 04/02/21 07:42 Pulse 89 04/02/21 10:26 Resp 16 04/02/21 10:26 BP 128/75 04/02/21 07:42 Pulse Ox 95 04/02/21 10:26 04/01/21 04/02/21 04/02/21 22:59 06:59 14:59 Intake Total 410 / 460 50 / 510 410 / 410 Output Total 350 / 350 450 / 800 Balance 60 / 110 -400 / -290 410 / 410 Weight last 48 hrs Weight 93.848 kg Weight 96.978 kg Physical Exam Const: COMMON NORMALS: patient oriented x3 and alert GENERAL APPEARANCE: cooperative and comfortable ORIENTATION/CONSCIOUSNESS: Yes awake HENMT: COMMON NORMALS: oropharynx normal Neck/C-Spine: COMMON NORMALS: no JVD Resp: COMMON NORMALS: normal respiratory effort AUSCULTATION: diminished lung sounds Cardio: COMMON NORMALS: no JVD, regular rhythm, S1 normal heart sound present, S2 normal heart sound present and No murmurs present (Cardio) RHYTHM: regular rhythm HEART SOUNDS: S1 normal heart sound present and S2 normal heart sound present GI: COMMON NORMALS: Normal to inspection, nondistended, normoactive bowel sounds present, Soft to palpation and non-tender INSPECTION: Yes abdominal distension PALPATION: Yes Soft to palpation OTHER: Lower abdominal incision covered with dressing. No bleeding. Extremity: COMMON NORMALS: no joint enlargement and no pedal edema Neuro: COMMON NORMALS: patient oriented x3 and moves all extremities SENSORIUM/ORIENTATION: Yes alert Skin: COMMON NORMALS: no rashes or lesions noted GENERAL SKIN EXAM: no rashes or lesions noted Urinary Catheter Management^: Andrade: Cath Placed During This Visit: yes Reason for Continuing Indwelling Catheter: Acute Urinary Retention or Obstruction Urinary Catheter Date of Insertion: 04/01/21 Urinary Catheter Time of Insertion: 16:01 Data : 04/01/21 06:10 04/01/21 06:10 Micro: Microbiology 03/28/21 05:55 Anaerobic Culture - Preliminary Peritoneal Fluid Fusobacterium varium A&P Assessment and plan (1) Atrial fibrillation: Transition to oral metoprolol, oral digoxin. Switch from Lovenox to Eliquis. Monitor on telemetry. Status: Chronic Qualifiers: Atrial fibrillation type: paroxysmal Qualified Code(s): I48.0 - Paroxysmal atrial fibrillation (2) Acute appendicitis: Slow gradual improvement of ileus. Trialing advancement of diet to GI soft per surgery. Andrade was placed yesterday due to some feeling of incomplete voiding, although there is reported history of possible untreated BPH. Encouraged him to ambulate. Voiding trial prior to discharge. Off IV hydration. Nausea, vomiting so far resolved. Zofran. Reglan as needed. Acute appendicitis with some evidence of perforation. Status post laparotomy and appendectomy. Follow intra-abdominal fluid cultures grew Proteus mirabilis and Fusobacterium on anaerobic culture Continue Zosyn. Status: Acute Qualifiers: Acute appendicitis type: with localized peritonitis Appendicitis abscess presence: unspecified whether abscess present Appendicitis gangrene presence: unspecified whether gangrene present Appendicitis perforation presence: unspecified whether perforation present Qualified Code(s): K35.30 - Acute appendicitis with localized peritonitis, without perforation or gangrene (3) COPD (chronic obstructive pulmonary disease): COPD with exacerbation. With greenish appearing purulent sputum. Continue Zosyn. Collect sputum culture. Continue breathing treatments. Given complicated appendicitis hold off on systemic steroids. Inhaled steroid given diminished breath sounds, wheezing. Chronically on albuterol Spiriva and Symbicort. Follows with pulmonology. Status: Chronic Qualifiers: COPD type: emphysema Emphysema type: unspecified Qualified Code(s): J43.9 - Emphysema, unspecified (4) Coronary artery disease: Status post bypass surgery in March 2019. Aspirin, statin, beta-blockade. Twelve-lead EKG with sinus rhythm, right bundle branch block and inferior changes that are unchanged from prior EKGs in July of this year Status: Chronic Qualifiers: Coronary Disease-Associated Artery/Lesion type: bypass graft [place] vs. transplanted heart: [place] heart Associated angina: without angina Qualified Code(s): I25.810 - Atherosclerosis of coronary artery bypass graft(s) without angina pectoris (5) Heart failure with preserved ejection fraction: Chronically on diuretics, although these were on hold perioperatively. Hold any further IVF for now. Monitor oxygenation, if signs of CHF e xacerbation, resume diuretic. Status: Chronic Qualifiers: Heart failure chronicity: chronic Qualified Code(s): I50.32 - Chronic diastolic (congestive) heart failure (6) Chronic anticoagulation: On Eliquis secondary to atrial fibrillation Status: Chronic (7) Hyperlipidemia: Chronically on atorvastatin Status: Chronic Qualifiers: Hyperlipidemia type: mixed hyperlipidemia Qualified Code(s): E78.2 - Mixed hyperlipidemia (8) Hypertension: Chronically on diuretic therapy and beta-blockade Status: Chronic Qualifiers: Hypertension type: unspecified secondary hypertension Qualified Code(s): I15.9 - Secondary hypertension, unspecified (9) GERD (gastroesophageal reflux disease): Chronically on PPI Status: Chronic Qualifiers: Esophagitis presence: without esophagitis Qualified Code(s): K21.9 - Gastro-esophageal reflux disease without esophagitis (10) Hypothyroidism: Chronically on levothyroxine Status: Chronic Qualifiers: Hypothyroidism type: acquired Qualified Code(s): E03.9 - Hypothyroidism, unspecified Attestations Medical Necessity Statement*: Continue admission for transition to oral medications for episodes of A. fib with RVR, which she was not able to take while having ileus, which is also slowly recovering, trial of advancement of diet after complicated appendicitis with perforation. 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 transplanted heart: [place] heart Associated angina: without angina Heart failure with preserved ejection fraction I50.32 Heart failure chronicity: chronic Chronic anticoagulation Z79.01 Hyperlipidemia E78.2 Hyperlipidemia type: mixed hyperlipidemia Hypertension I15.9 Hypertension type: unspecified secondary hypertension GERD (gastroesophageal reflux disease) K21.9 Esophagitis presence: without esophagitis Hypothyroidism E03.9 Hypothyroidism type: acquired
[2021-04-02] MEDS: metoprolol tartrate 50 mg Tablet 75 MG PO (17:00)
[2021-04-02] MEDS: apixaban 5 mg Tablet PO (17:00)
[2021-04-02] MEDS: morphine 4 mg/mL SDV 1 mL IVP (18:05)
[2021-04-02] MEDS: sennosides 8.6 mg Tablet 17.2 MG PO (21:13)
[2021-04-03] VITALS (14 sets, daily range): BP systolic 113–140; BP diastolic 61–74; PULSE 64–86; RESP 16–18; TEMP 36.5–36.9; O2SAT 92–98
[2021-04-03] MEDS: ipratropium-albuterol 3 mL Neb INHALATION ×3 (02:41→23:30)
[2021-04-03] MEDS: metoprolol tartrate 1 mg/1 mL SDV 5 mL 7.5 MG IVP ×5 (04:00→21:07)
[2021-04-03] MEDS: morphine 4 mg/mL SDV 1 mL IVP (04:00)
[2021-04-03] MEDS: piperacillin-tazobactam 3.375 GM in sodium chloride 0.9% (plus) 50 ML IV ×2 (05:36→12:35)
[2021-04-03] MEDS: apixaban 5 mg Tablet PO ×2 (05:37→18:16)
[2021-04-03 06:34] LABS: Basophils % 0.3 %; Eosinophils # 0.1 10^3/uL (0.0-0.8); Eosinophils % 1.6 %; Hematocrit 39.3 % (42.0-52.0); Lymphocytes # 0.9 10^3/uL (0.8-4.8); Lymphocytes % 12.9 %; Mean Corpuscular HGB Conc 30.5 g/dL (30.0-36.0); Mean Corpuscular Volume 91.6 fl (80-94); Mean Platelet Volume 11.1 fL (7.4-10.4); Monocytes # 0.4 10^3/uL (0.2-0.9); Monocytes % 5.9 %; Neutrophils # 5.49 10^3/uL (1.8-7.7); Neutrophils % 78.3 %; Nucleated Red Blood Cells % 0 %; Platelet Count 205 10^3/cmm (130-400); Red Blood Count 4.29 10^6/uL (4.1-5.3); Red Cell Distribution Width 16.6 % (12.1-15.1)
[2021-04-03 07:02] LABS: Blood Urea Nitrogen 16 mg/dL (8-23); Carbon Dioxide 28 mmol/L (22-29); Chloride 106 mmol/L (98-107); Glomerular Filtration Rate 96.7 mL/min (90-130); Glucose 99 mg/dL (65-115); Magnesium 2.2 mg/dL (1.7-2.3); Osmolality Calculated 293 mOsm/kg (285-295); Sodium 141 mmol/L (136-145)
[2021-04-03 07:06] LABS: Anion Gap 11.1 (5-19); Potassium 4.1 mmol/L (3.5-5.1)
[2021-04-03 07:42] LABS: Slide Review Slide Review Perform
[2021-04-03] MEDS: digoxin 250 mcg Tablet PO (08:04)
[2021-04-03] MEDS: aspirin 81 mg EC Tablet PO (08:05)
[2021-04-03] MEDS: metoprolol tartrate 50 mg Tablet 75 MG PO ×2 (08:05→18:16)
[2021-04-03] MEDS: docusate sodium 100 mg Capsule PO ×2 (08:05→18:16)
[2021-04-03] MEDS: pantoprazole 40 mg SDV IVP (09:09)
--- NOTE | 2021-04-03 12:18 | PM.PN ---
Subjective Subjective: Interval history: The patient is tolerating an oral diet and continues to pass flatus. He is still a bit sore. He still has his Andrade catheter in from when it got replaced a couple of days ago (Dr. Ritchie indicated he was probably going to try to remove it yesterday, but it does not appear that that happened). The patient seems a little hesitant to have it removed. Vitals/I&O/Wt Last Vital Signs Temp 98 F 04/03/21 11:26 Pulse 78 04/03/21 11:26 Resp 16 04/03/21 11:26 BP 140/64 04/03/21 11:26 Pulse Ox 92 04/03/21 11:26 04/02/21 04/03/21 04/03/21 22:59 06:59 14:59 Intake Total 250 / 950 290 / 950 250 / 250 Output Total 325 / 325 Balance 250 / 625 -35 / 625 250 / 250 Weight last 48 hrs Weight 208 lb 7 oz Weight 206 lb 14.4 oz Physical Exam Narrative: EXAM NARRATIVE: Bowel sounds are present. The incision looks okay. Urinary Catheter Management^: Andrade: Cath Placed During This Visit: yes Reason for Continuing Indwelling Catheter: Acute Urinary Retention or Obstruction Urinary Catheter Date of Insertion: 04/01/21 Urinary Catheter Time of Insertion: 16:01 Data : 04/03/21 05:46 04/03/21 05:46 Micro: Microbiology 04/03/21 06:45 Gram Stain - Final Sputum - Expectorated Sputum 03/28/21 05:55 Anaerobic Culture - Preliminary Peritoneal Fluid Fusobacterium varium Bacteroides merdae A&P Assessment and plan (1) Perforated appendicitis: Status post laparotomy with appendectomy on 03/28/2021. The patient did have evidence of perforation. The patient seems to be tolerating his diet fine. From a surgical perspective, I think he can be discharged soon and probably will not require any ongoing antibiotics, but his home living situation does not sound great. He lives in an by himself in a truck stop parking lot in [place], [place]. He says he does not have any surrounding family. I am going to initiate plans to have a follow-up appointment with him late this week on Saturday morning for wound check and staple removal. Status: Acute Attestations Medical Necessity Statement*: See admitting service's notation. 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
[2021-04-03] MEDS: HYDROcodone-acetaminophen 5-325 mg Tablet PO ×2 (13:44→21:25)
--- NOTE | 2021-04-03 13:48 | PC.SOCIAL ---
IMM Update: pg 2 of IMM updated and reviewed w/ patient. Copy provided.
--- NOTE | 2021-04-03 14:56 | PC.RESP ---
PULMONARY REHAB INFORMATION SENT TO PATIENT.
--- NOTE | 2021-04-03 16:56 | PM.PN ---
Subjective Subjective: Interval history: No acute events overnight. Patient denies any nausea, vomiting, headache. Case discussed with Dr. Morocho. On examination sitting up in chair. Andrade catheter removed early in the morning today. Awaiting voiding trial. Patient tolerating oral diet well. Has remained hemodynamically stable and afebrile. Discussed safe discharge planning with the patient. Patient is interested in home health for now. Case management has been alerted. Medications: Medication Review Details: Patient reports that medication list is consistent with what he recalls Vitals/I&O/Wt Last Vital Signs Temp 98.4 F 04/03/21 15:56 Pulse 64 04/03/21 15:56 Resp 16 04/03/21 15:56 BP 125/61 04/03/21 15:56 Pulse Ox 96 04/03/21 15:56 04/03/21 04/03/21 04/03/21 06:59 14:59 22:59 Intake Total 290 / 950 250 / 250 Output Total 325 / 325 375 / 375 Balance -35 / 625 250 / 250 -375 / -125 Weight last 48 hrs Weight 94.546 kg Weight 93.848 kg Physical Exam Const: COMMON NORMALS: patient oriented x3 and alert GENERAL APPEARANCE: cooperative and comfortable ORIENTATION/CONSCIOUSNESS: Yes awake HENMT: COMMON NORMALS: oropharynx normal Neck/C-Spine: COMMON NORMALS: no JVD Resp: COMMON NORMALS: normal respiratory effort AUSCULTATION: diminished lung sounds Cardio: COMMON NORMALS: no JVD, regular rhythm, S1 normal heart sound present, S2 normal heart sound present and No murmurs present (Cardio) RHYTHM: regular rhythm HEART SOUNDS: S1 normal heart sound present and S2 normal heart sound present GI: COMMON NORMALS: Normal to inspection, nondistended, normoactive bowel sounds present, Soft to palpation and non-tender INSPECTION: Yes abdominal distension PALPATION: Yes Soft to palpation OTHER: Lower abdominal incision covered with dressing. No bleeding. Extremity: COMMON NORMALS: no joint enlargement and no pedal edema Neuro: COMMON NORMALS: patient oriented x3 and moves all extremities SENSORIUM/ORIENTATION: Yes alert Skin: COMMON NORMALS: no rashes or lesions noted GENERAL SKIN EXAM: no rashes or lesions noted Urinary Catheter Management^: Andrade: Cath Placed During This Visit: yes, but has since been removed by the nurse Reason for Continuing Indwelling Catheter: Acute Urinary Retention or Obstruction Urinary Catheter Date of Insertion: 04/01/21 Urinary Catheter Time of Insertion: 16:01 Date Urinary Catheter Removed: 04/03/21 Time Urinary Catheter Discontinued: 13:44 Data : 04/03/21 05:46 04/03/21 05:46 Micro: Microbiology 03/28/21 05:55 Anaerobic Culture - Preliminary Peritoneal Fluid Fusobacterium varium Bacteroides merdae 04/03/21 06:45 Gram Stain - Final Sputum - Expectorated Sputum A&P Assessment and plan (1) Atrial fibrillation: Transition to oral metoprolol, oral digoxin. Switch from Lovenox to Eliquis. Monitor on telemetry. Status: Chronic Qualifiers: Atrial fibrillation type: paroxysmal Qualified Code(s): I48.0 - Paroxysmal atrial fibrillation (2) Acute appendicitis: Slow gradual improvement of ileus. Trialing advancement of diet to GI soft per surgery. Andrade was placed yesterday due to some feeling of incomplete voiding, although there is reported history of possible untreated BPH. Encouraged him to ambulate. Voiding trial prior to discharge. Off IV hydration. Nausea, vomiting so far resolved. Zofran. Reglan as needed. Acute appendicitis with some evidence of perforation. Status post laparotomy and appendectomy. Follow intra-abdominal fluid cultures grew Proteus mirabilis and Fusobacterium on anaerobic culture Continue Zosyn. Status: Acute Qualifiers: Acute appendicitis type: with localized peritonitis Appendicitis abscess presence: unspecified whether abscess present Appendicitis gangrene presence: unspecified whether gangrene present Appendicitis perforation presence: unspecified whether perforation present Qualified Code(s): K35.30 - Acute appendicitis with localized peritonitis, without perforation or gangrene (3) COPD (chronic obstructive pulmonary disease): COPD with exacerbation. With greenish appearing purulent sputum. Continue Zosyn. Collect sputum culture. Continue breathing treatments. Given complicated appendicitis hold off on systemic steroids. Inhaled steroid given diminished breath sounds, wheezing. Chronically on albuterol Spiriva and Symbicort. Follows with pulmonology. Status: Chronic Qualifiers: COPD type: emphysema Emphysema type: unspecified Qualified Code(s): J43.9 - Emphysema, unspecified (4) Coronary artery disease: Status post bypass surgery in March 2019. Aspirin, statin, beta-blockade. Twelve-lead EKG with sinus rhythm, right bundle branch block and inferior changes that are unchanged from prior EKGs in July of this year Status: Chronic Qualifiers: Coronary Disease-Associated Artery/Lesion type: bypass graft [place] vs. transplanted heart: [place] heart Associated angina: without angina Qualified Code(s): I25.810 - Atherosclerosis of coronary artery bypass graft(s) without angina pectoris (5) Heart failure with preserved ejection fraction: Chronically on diuretics, although these were on hold perioperatively. Hold any further IVF for now. Monitor oxygenation, if signs of CHF exacerbation, resume diuretic. Status: Chronic Qualifiers: Heart failure chronicity: chronic Qualified Code(s): I50.32 - Chronic diastolic (congestive) heart failure (6) Chronic anticoagulation: On Eliquis secondary to atrial fibrillation Status: Chronic (7) Hyperlipidemia: Chronically on atorvastatin Status: Chronic Qualifiers: Hyperlipidemia type: mixed hyperlipidemia Qualified Code(s): E78.2 - Mixed hyperlipidemia (8) Hypertension: Chronically on diuretic therapy and beta-blockade Status: Chronic Qualifiers: Hypertension type: unspecified secondary hypertension Qualified Code(s): I15.9 - Secondary hypertension, unspecified (9) GERD (gastroesophageal reflux disease): Chronically on PPI Status: Chronic Qualifiers: Esophagitis presence: without esophagitis Qualified Code(s): K21.9 - Gastro-esophageal reflux disease without esophagitis (10) Hypothyroidism: Chronically on levothyroxine Status: Chronic Qualifiers: Hypothyroidism type: acquired Qualified Code(s): E03.9 - Hypothyroidism, unspecified Additional A&P Information Plan for the day: Discontinue Andrade catheter. Voiding trial. Stop Zosyn. Switch to Levaquin as per culture results for 2 days. Stable to be discharged from medical point of view once patient passes the voiding trial. Discussed with patient regarding safe discharge planning. Patient declining SNF placement for now and would want to try home health. Case management alerted. Attestations Medical Necessity Statement*: As per primary team. Awaiting voiding trial post Andrade catheter removal. Safe discharge planning. Time Spent in Patient Care: Greater than 35 minutes (>than 50% of time spent in counselling and/or direct pt care on unit). 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 transplanted heart: [place] heart Associated angina: without angina Heart failure with preserved ejection fraction I50.32 Heart failure chronicity: chronic Chronic anticoagulation Z79.01 Hyperlipidemia E78.2 Hyperlipidemia type: mixed hyperlipidemia Hypertension I15.9 Hypertension type: unspecified secondary hypertension GERD (gastroesophageal reflux disease) K21.9 Esophagitis presence: without esophagitis Hypothyroidism E03.9 Hypothyroidism type: acquired
[2021-04-03] MEDS: sennosides 8.6 mg Tablet 17.2 MG PO (21:07)
[2021-04-04] VITALS (12 sets, daily range): BP systolic 106–156; BP diastolic 59–69; PULSE 66–87; RESP 17–20; TEMP 36.4–36.9; O2SAT 90–99
[2021-04-04] MEDS: metoprolol tartrate 1 mg/1 mL SDV 5 mL 7.5 MG IVP ×4 (01:57→14:30)
[2021-04-04] MEDS: levoFLOXacin 500 mg Tablet PO (06:03)
[2021-04-04] MEDS: apixaban 5 mg Tablet PO (06:03)
[2021-04-04] MEDS: docusate sodium 100 mg Capsule PO (09:18)
[2021-04-04] MEDS: digoxin 250 mcg Tablet PO (09:18)
[2021-04-04] MEDS: metoprolol tartrate 50 mg Tablet 75 MG PO (09:18)
[2021-04-04] MEDS: aspirin 81 mg EC Tablet PO (09:19)
[2021-04-04] MEDS: HYDROcodone-acetaminophen 5-325 mg Tablet PO (09:29)
[2021-04-04] MEDS: ipratropium-albuterol 3 mL Neb INHALATION ×2 (09:34→14:22)
--- NOTE | 2021-04-04 12:51 | P.DS_ITS ---
Discharge Providers Date of Admission: 03/27/21 21:55 Date of Discharge: April 04, 2021 Attending Provider at Admission: Desmond Morocho MD Attending Provider at Discharge: Desmond Morocho MD Primary Care Provider: PATO Hernandez Diagnoses at Discharge Discharge Diagnosis (1) Atrial fibrillation: Status: Chronic Qualifiers: Atrial fibrillation type: paroxysmal Qualified Code(s): I48.0 - Paroxysmal atrial fibrillation (2) Acute appendicitis: Status: Acute Qualifiers: Acute appendicitis type: with localized peritonitis Appendicitis abscess presence: unspecified whether abscess present Appendicitis gangrene presence: unspecified whether gangrene present Appendicitis perforation presence: unspecified whether perforation present Qualified Code(s): K35.30 - Acute appendicitis with localized peritonitis, without perforation or gangrene (3) 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 transplanted heart: [place] heart Associated angina: without angina Qualified Code(s): I25.810 - Atherosclerosis of coronary artery bypass graft(s) without angina pectoris (5) Heart failure with preserved ejection fraction: Status: Chronic Qualifiers: Heart failure chronicity: chronic Qualified Code(s): I50.32 - Chronic diastolic (congestive) heart failure (6) Chronic anticoagulation: Status: Chronic Permanent problem details: eliquis, for afib (7) Hyperlipidemia: Status: Chronic Qualifiers: Hyperlipidemia type: mixed hyperlipidemia Qualified Code(s): E78.2 - Mixed hyperlipidemia (8) Hypertension: Status: Chronic Qualifiers: Hypertension type: unspecified secondary hypertension Qualified Code(s): I15.9 - Secondary hypertension, unspecified (9) GERD (gastroesophageal reflux disease): Status: Chronic Qualifiers: Esophagitis presence: without esophagitis Qualified Code(s): K21.9 - Gastro-esophageal reflux disease without esophagitis (10) Hypothyroidism: Status: Chronic Qualifiers: Hypothyroidism type: acquired Qualified Code(s): E03.9 - Hypothyroidism, unspecified Reason for Visit Reason for Visit: CHEST PAIN TO [facility] Course Hospital Course This is a 65-year-old white male who presented to the emergency room by ambulance with a rather sudden onset of right lower quadrant/pelvic pain. A CAT scan showed changes consistent with acute appendicitis with probable perforation. He was taken to the operating room where a perforated appendicitis was found. He underwent an appendectomy. Postoperatively he was placed on the medical floor and the hospitalist team was consulted for medical management. See their paperwork for details. The patient had somewhat of a waxing and waning course following surgery but remained stable. He had some issues with atrial fibrillation and COPD. His bowel function eventually returned, however, and he was eventually advanced to a soft diet which he tolerated well. By the day of discharge, 04/04/2021, his incision was already healing very well. His skin johnny were removed and Steri-Strips with benzoin were placed. Arrangements were made for him to follow-up with his primary care physician within a week as well as follow-up with me within a couple of weeks for a wound check. He had been on broad- spectrum antibiotics for week already and so these were discontinued at the time of discharge as his white blood cell count was normal and he was afebrile. He was instructed with respect to wound care, activity limitations, diet, etc. The hospital case management staff had arranged for the patient to have some home health in the interim. Physical Exam Narrative: EXAM NARRATIVE: 04/04/2021: The incision looks good. The skin johnny were removed and benzoin and Steri- Strips were placed. Bowel sounds are present. The patient has the expected amount of tenderness 7-8 days out from surgery. Urinary Catheter Management^: Andrade: Cath Placed During This Visit: yes, but has since been removed by the nurse Reason for Continuing Indwelling Catheter: Acute Urinary Retention or Obstruction Urinary Catheter Date of Insertion: 04/01/21 Urinary Catheter Time of Insertion: 16:01 Date Urinary Catheter Removed: 04/03/21 Time Urinary Catheter Discontinued: 13:44 Discharge Data Data Completed and Pending: Completed Studies During Hospitalization Category Date Time Status CT angio chest ab domen pelvis Urgen t Cat Scan 03/27/21 18:59 Completed XR chest 1V josue ble [id number] Stat Exams 03/27/21 18:47 Completed Pathology: Surgic al [PTH] Routine Pth 03/28/21 06:17 Completed Pending at discharge Category Date Time Status Sputum Culture an d Gram Stain Routi ne Lab 04/03/21 06:45 Results Vitals: Last Vital Signs Temp 98.4 F 04/04/21 08:00 Pulse 71 04/04/21 09:41 Resp 17 04/04/21 09:34 BP 137/67 04/04/21 08:00 Pulse Ox 93 04/04/21 09:41 Discharge Plan Discharge Patient Disposition: Home Condition: Stable Prescriptions: Continued cholecalciferol (vitamin D3) 25 mcg (1,000 unit) capsule 25 mcg PO DAILY RF: 0 aspirin 325 mg tablet 325 mg PO QAM RF: 0 Spiriva Respimat 2.5 mcg/actuation mist 2 inh INHALATION QAM RF: 0 ipratropium-albuterol 0.5 mg-3 mg(2.5 mg base)/3 mL Solution For Nebulization 3 ml INHALATION Q6H PRN (Reason: Shortness Of Breath) RF: 0 albuterol sulfate 90 mcg/actuation Hfa Aerosol Inhaler 2 puff INHALATION Q6H PRN (Reason: Shortness Of Breath) RF: 0 atorvastatin 20 mg tablet 10 mg PO BEDTIME RF: 0 Eliquis 5 mg Tablet 5 mg PO BID Qty: 60 RF: 0 Hold Instructions: Resume on 04/25/20. omeprazole 20 mg capsule,delayed release(DR/EC) 40 mg PO DAILY RF: 0 docusate sodium [Stool Softener] 100 mg Capsule 100 mg PO DAILY RF: 0 digoxin 250 mcg (0.25 mg) Tablet 250 mcg PO DAILY Qty: 30 RF: 0 levothyroxine [Levoxyl] 100 mcg Tablet 100 mcg PO DAILY Qty: 30 RF: 0 metoprolol tartrate 50 mg Tablet 75 mg PO BID Qty: 90 RF: 0 fluticasone propion-salmeterol 250-50 mcg/dose Blister With Device 1 inh INHALATION BID RF: 0 Nitrostat 0.4 mg Tablet, Sublingual 0.4 mg SUBLINGUAL Q5M PRN (Reason: Chest Pain) RF: 0 ferrous gluconate 324 mg (38 mg iron) Tablet 324 mg PO QAM RF: 0 potassium chloride 20 mEq Tablet Extended Release 10 meq PO DAILY RF: 0 Lasix 40 mg tablet 40 mg PO QAM RF: 0 Discharge Orders: Discharge Order (Routine); Ordered 04/04/21 Ordered By: Desmond Morocho Referrals: [facility] [Outside] Desmond Morocho MD [Physician] - 2 weeks (Nursing: Please call Dr. Morocho's office ([phone]) and make an appointment for the patient to be seen in 10-14 days.) Isela Gipson FNP [Primary Care Provider] - 4-7 days Discharge Diet: Advance as tolerated Discharge Activity: Limit activity as instructed Patient Instructions: Opioid Safety Activity Restrictions/Additional Instructions: 1. Discharge to home today. 2. Appointment to see Dr. Morocho in 10-14 days as above. 3. Leave Steri-Strip(s) on as discussed, may shower. No lifting over 20 pounds, no repetitive bending or twisting, no strenuous pushing / pulling or other heavy activity. Ambulate regularly. May go up and down steps if needed. Discharge Attestations Time Spent in Discharge Care*: less than 30 min Quality Metrics Clinical Quality Measures During this hospital stay, did patient experience: None 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 of Care Code Acute Chg FW DC note Diagnoses Atrial fibrillation I48.0 Atrial fibrillation type: paroxysmal Acute appendicitis K35.30 Acute appendicitis type: with localized peritonitis Appendicitis abscess presence: unspecified whether abscess present Appendicitis gangrene presence: unspecified whether gangrene present Appendicitis perforation presence: unspecified whether perforation present COPD (chronic obstructive pulmonary disease) J43.9 COPD type: emphysema Emphysema type: unspecified Coronary artery disease I25.810 Coronary Disease-Associated Artery/Lesion type: bypass graft [place] vs. transplanted heart: [place] heart Associated angina: without angina Heart failure with preserved ejection fraction I50.32 Heart failure chronicity: chronic Chronic anticoagulation Z79.01 Hyperlipidemia E78.2 Hyperlipidemia type: mixed hyperlipidemia Hypertension I15.9 Hypertension type: unspecified secondary hypertension GERD (gastroesophageal reflux disease) K21.9 Esophagitis presence: without esophagitis Hypothyroidism E03.9 Hypothyroidism type: acquired
--- NOTE | 2021-04-04 13:42 | P.PN_ITS ---
Subjective Subjective: Interval history: No recurrence overnight. Andrade catheter removed yesterday. Has passed urine twice since then. Has remained hemodynamically stable and afebrile. Tolerating oral diet well. Home health has been set up with case management. Medications: Medication Review Details: Patient reports that medication list is consistent with what he recalls Vitals/I&O/Wt Last Vital Signs Temp 97.6 F 04/04/21 12:00 Pulse 78 04/04/21 12:00 Resp 20 H 04/04/21 12:00 BP 156/65 04/04/21 12:00 Pulse Ox 93 04/04/21 12:00 04/03/21 04/04/21 04/04/21 22:59 06:59 14:59 Intake Total 550 / 800 620 / 1420 700 / 700 Output Total 375 / 375 510 / 885 100 / 100 Balance 175 / 425 110 / 535 600 / 600 Weight last 48 hrs Weight 94.517 kg Weight 94.546 kg Physical Exam Const: COMMON NORMALS: patient oriented x3 and alert GENERAL APPEARANCE: cooperative and comfortable ORIENTATION/CONSCIOUSNESS: Yes awake HENMT: COMMON NORMALS: oropharynx normal Neck/C-Spine: COMMON NORMALS: no JVD Resp: COMMON NORMALS: normal respiratory effort AUSCULTATION: diminished lung sounds Cardio: COMMON NORMALS: no JVD, regular rhythm, S1 normal heart sound present, S2 normal heart sound present and No murmurs present (Cardio) RHYTHM: regular rhythm HEART SOUNDS: S1 normal heart sound present and S2 normal heart sound present GI: COMMON NORMALS: Normal to inspection, nondistended, normoactive bowel sounds present, Soft to palpation and non-tender INSPECTION: Yes abdominal distension PALPATION: Yes Soft to palpation OTHER: Lower abdominal incision covered with dressing. No bleeding. Extremity: COMMON NORMALS: no joint enlargement and no pedal edema Neuro: COMMON NORMALS: patient oriented x3 and moves all extremities SENSORIUM/ORIENTATION: Yes alert Skin: COMMON NORMALS: no rashes or lesions noted GENERAL SKIN EXAM: no rashes or lesions noted Urinary Catheter Management^: Andrade: Cath Placed During This Visit: yes, but has since been removed by the nurse Reason for Continuing Indwelling Catheter: Acute Urinary Retention or Obstruction Urinary Catheter Date of Insertion: 04/01/21 Urinary Catheter Time of Insertion: 16:01 Date Urinary Catheter Removed: 04/03/21 Time Urinary Catheter Discontinued: 13:44 Data : 04/03/21 05:46 04/03/21 05:46 Micro: Microbiology 04/03/21 06:45 Gram Stain - Final Sputum - Expectorated Sputum Sputum Culture - Preliminary 03/28/21 05:55 Anaerobic Culture - Final Peritoneal Fluid Fusobacterium varium Bacteroides merdae A&P Assessment and plan (1) Atrial fibrillation: Transition to oral metoprolol, oral digoxin. Switch from Lovenox to Eliquis. Monitor on telemetry. Status: Chronic Qualifiers: Atrial fibrillation type: paroxysmal Qualified Code(s): I48.0 - Paroxysmal atrial fibrillation (2) Acute appendicitis: Slow gradual improvement of ileus. Trialing advancement of diet to GI soft per surgery. Andrade was placed yesterday due to some feeling of incomplete voiding, although there is reported history of possible untreated BPH. Encouraged him to ambulate. Voiding trial prior to discharge. Off IV hydration. Nausea, vomiting so far resolved. Zofran. Reglan as needed. Acute appendicitis with some evidence of perforation. Status post laparotomy and appendectomy. Follow intra-abdominal fluid cultures grew Proteus mirabilis and Fusobacterium on anaerobic culture Continue Zosyn. Status: Acute Qualifiers: Acute appendicitis type: with localized peritonitis Appendicitis abscess presence: unspecified whether abscess present Appendicitis gangrene presence: unspecified whether gangrene present Appendicitis perforation presence: unspecified whether perforation present Qualified Code(s): K35.30 - Acute appendicitis with localized peritonitis, without perforation or gangrene (3) COPD (chronic obstructive pulmonary disease): COPD with exacerbation. With greenish appearing purulent sputum. Continue Zosyn. Collect sputum culture. Continue breathing treatments. Given complicated appendicitis hold off on systemic steroids. Inhaled steroid given diminished breath sounds, wheezing. Chronically on albuterol Spiriva and Symbicort. Follows with pulmonology. Status: Chronic Qualifiers: COPD type: emphysema Emphysema type: unspecified Qualified Code(s): J43.9 - Emphysema, unspecified (4) Coronary artery disease: Status post bypass surgery in March 2019. Aspirin, statin, beta-blockade. Twelve-lead EKG with sinus rhythm, right bundle branch block and inferior changes that are unchanged from prior EKGs in July of this year Status: Chronic Qualifiers: Coronary Disease-Associated Artery/Lesion type: bypass graft [place] vs. transplanted heart: [place] heart Associated angina: without angina Qualified Code(s): I25.810 - Atherosclerosis of coronary artery bypass graft(s) without angina pectoris (5) Heart failure with preserved ejection fraction: Chronically on diuretics, although these were on hold perioperatively. Hold any further IVF for now. Monitor oxygenation, if signs of CHF exacerbation, resume diuretic. Status: Chronic Qualifiers: Heart failure chronicity: chronic Qualified Code(s): I50.32 - Chronic diastolic (congestive) heart failure (6) Chronic anticoagulation: On Eliquis secondary to atrial fibrillation Status: Chronic (7) Hyperlipidemia: Chronically on atorvastatin Status: Chronic Qualifiers: Hyperlipidemia type: mixed hyperlipidemia Qualified Code(s): E78.2 - Mixed hyperlipidemia (8) Hypertension: Chronically on diuretic therapy and beta-blockade Status: Chronic Qualifiers: Hypertension type: unspecified secondary hypertension Qualified Code(s): I15.9 - Secondary hypertension, unspecified (9) GERD (gastroesophageal reflux disease): Chronically on PPI Status: Chronic Qualifiers: Esophagitis presence: without esophagitis Qualified Code(s): K21.9 - Gastro-esophageal reflux disease without esophagitis (10) Hypothyroidism: Chronically on levothyroxine Status: Chronic Qualifiers: Hypothyroidism type: acquired Qualified Code(s): E03.9 - Hypothyroidism, unspecified Additional A&P Information Plan for the day: Have passed a voiding trial. Will discharge on 2 more days of Levaquin to finish a course of antibiotics. Home health has been arranged. Stable [facility] be [facility] Attestations Medical Necessity Statement*: As per primary team. 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 [facility] Fwd Diagnoses Atrial fibrillation I48.0 Atrial fibrillation type: paroxysmal Acute appendicitis K35.30 Acute appendicitis type: with localized peritonitis Appendicitis abscess presence: unspecified whether abscess present Appendicitis gangrene presence: unspecified whether gangrene present Appendicitis perforation presence: unspecified whether perforation present COPD (chronic obstructive pulmonary disease) J43.9 COPD type: emphysema Emphysema type: unspecified Coronary artery disease I25.810 Coronary Disease-Associated Artery/Lesion type: bypass graft [place] vs. transplanted heart: [place] Associated angina: without angina Heart failure with preserved ejection fraction I50.32 Heart failure chronicity: chronic Chronic anticoagulation Z79.01 Hyperlipidemia E78.2 Hyperlipidemia type: mixed hyperlipidemia Hypertension I15.9 Hypertension type: unspecified secondary hypertension GERD (gastroesophageal reflux disease) K21.9 Esophagitis presence: without esophagitis Hypothyroidism E03.9 Hypothyroidism type: acquired
== END 2021-04-04 19:03 | disposition home health service (06) | DRG 339 ==
LOC: ER 22:34 → MEDSURG 23:35
PROVIDERS: Hospitalist; Internal Medicine; Admitting Provider Surgery; Emergency Provider Emergency Medicine; PCP Nurse Practitioner; Visit Provider Surgery
PROC: 0DTJ0ZZ Resection of Appendix, Open Approach (ICD-10-PCS; CPT 44950; principal; 2021-03-28 05:45)
PROC: 0DTJ0ZZ Resection of Appendix, Open Approach (ICD-10-PCS; CPT 49000; 2021-03-28 05:45)
DX: K35.32 Acute appendicitis with perforation, localized peritonitis, and gangrene, without abscess (principal); I50.32 Chronic diastolic (congestive) heart failure; I48.0 Paroxysmal atrial fibrillation; I11.0 Hypertensive heart disease with heart failure; J43.9 Emphysema, unspecified; I25.10 Atherosclerotic heart disease of native coronary artery without angina pectoris; Z95.1 Presence of aortocoronary bypass graft; K21.9 Gastro-esophageal reflux disease without esophagitis; E78.2 Mixed hyperlipidemia; E03.9 Hypothyroidism, unspecified; Z87.891 Personal history of nicotine dependence; D64.9 Anemia, unspecified; B96.4 Proteus (mirabilis) (morganii) as the cause of diseases classified elsewhere; Z79.51 Long term (current) use of inhaled steroids; Z79.01 Long term (current) use of anticoagulants
CPT/HCPCS: 36415; 51702; 71045; 71275; 74174; 80048; 80053; 80162; 83036; 83605; 83735; 84100; 84484; 85025; 85610; 86850; 86900; 86920; 87070; 87075; 87077; 87186; 87205; 88304; 93005; 94640; 94664; 96365; 96372; 96375; 97116; 97161; 97530; 99285; A7015; C9113; J0330; J0690; J1100; J1160; J1170; J1644; J1650; J1885; J2270; J2405; J2543; J2704; J2710; J2765; J3010; J3490; J7030; Q9967; S0030

== ENCOUNTER 2021-04-14 11:44 | Emergency (ER) | payer OTHER, SELFPAY ==
[2021-04-14 12:11] VITALS: BP 157/77; PULSE 80; RESP 20; TEMP 36.4; O2SAT 96; BMI 29.4
--- NOTE | 2021-04-14 12:40 | W.ED.SOB ---
HPI - SOB/Dyspnea General: Chief Complaint: Shortness of Breath/Dyspnea Stated Complaint: [facility]: [facility] Time Seen by Provider: 04/14/21 12:40 History of Present Illness: HPI Narrative: Mr. Jones is a 65-year-old gentleman with complicated past medical history including COPD, hypertension, hyperlipidemia, atrial fibrillation on anticoagulation, heart failure with preserved ejection fraction, chronic hypoxemia on supplemental oxygen intermittently and recent hospitalization for appendicitis who presents emergency department due to concern over pneumonia. He reports 3 to 4 days of worsening cough, shortness of breath, generalized malaise. Subjective fevers chills. Cough is mildly productive. [facility] and they were concerned and sent him over for further evaluation. Overall the course of symptoms have been worsening. Intensity is moderate. Denies sick contacts. He has been compliant with his apixaban. No other specific exacerbating relieving factors identified. Review of Systems General: Reports: 10 or more systems reviewed and unremarkable except in HPI and below PFSH ED PFSH: Medical History Anemia Atrial fibrillation CHF (congestive heart failure) Last echocardiogram normal EF, grade 2/4 diastolic dysfunction October 2019 Colon polyps COPD (chronic obstructive pulmonary disease) Coronary artery disease GERD (gastroesophageal reflux disease) Hyperlipidemia Hypertension Hypothyroidism Surgical History History of colonoscopy (~04/2020) History of coronary artery bypass graft (03/2019) [address] [place] [address] History of knee surgery History of vasectomy S/P cholecystectomy Family History Other CAD (coronary artery disease) Social History Smoking and tobacco status: former smoker Quit status (tobacco): has quit using tobacco Year quit tobacco: 2017 - PPD x 52 Years Alcohol intake: never Counseling given: No Lives independently: Yes Household members: none Marital status: Legally Current occupational status: retired Current gender identity: Male Physical Exam Narrative: EXAM NARRATIVE: GENERAL/CONSTITUTIONAL -mildly ill-appearing. No acute distress. Eyes - PERRL, no conjunctival injection ENMT - Atraumatic external nose and ears. Moist mucous membranes NECK - supple. trachea midline CARDIOVASCULAR - regular rate and rhythm. Peripheral pulses 2+ and equal RESPIRATORY -coarse to auscultation. Mild tachypnea. Supplemental oxygen. ABDOMEN/GI -surgical incisions appear well-healing. No tenderness to palpation. MSK - Extremities without obvious deformity or tenderness to palpation SKIN - Warm, Dry NEURO - alert and appropriately oriented. Moves all extremities equally. Course ED course: - Patient was seen and evaluated by me at bedside - Patient placed on cardiac monitors, IV access obtained - Initial evaluation notable for somewhat ill appearance, no acute distress. Diminished breath sounds throughout with mild coarseness. Benign abdominal exam. - Labs notable for leukopenia. No significant metabolic abnormalities. Delta troponin negative. Mildly increased BNP. Procalcitonin negative. - Imaging notable for no lobar consolidation. - Upon serial reexamination after treatment the patient was improved after symptomatic treatments. - Based on patient history, evaluation, labs, and imaging as interpreted the most likely cause of the patient's condition is COPD exacerbation and pneumonia - The results of ED evaluation were discussed with the patient including prescriptions and/or symptomatic cares (if applicable) including appropriate and responsible use, followup plan, and return precautions. The patient verbalized understanding and felt safe for discharge. - Patient discharged in satisfactory condition. Vital Signs: Vital signs: Vital Signs Temperature 97.6 F 04/14/21 16:46 Pulse Rate 93 04/14/21 16:46 Respiratory Rate 20 H 04/14/21 16:46 Blood Pressure 171/85 04/14/21 16:46 Pulse Oximetry 98 04/14/21 16:46 MDM - SOB/Dyspnea Medical Records: Attestation: I reviewed the patient's medical records. Lab Data: Attestation: I reviewed the patient's lab results. Labs: Lab Results 04/14/21 04/14/21 04/14/21 13:35 13:35 13:35 WBC 2.9 10^3/uL L 10^ 3/uL (4.0-10.0) RBC 4.63 10^6/uL 10^6 /uL (4.1-5.3) Hgb 13.0 g/dL g/dL (11.7-16.6) Hct 41.0 % L % (42.0-52.0) MCV 88.6 fl fl (80-94) MCH 28.1 pg pg (28.0-34.0) MCHC 31.7 g/dL g/dL (30.0-36.0) RDW 16.7 % H % (12.1-15.1) Plt Count 246 10^3/cmm 10^3 /cmm (130-400) MPV 9.7 fL fL (7.4-10.4) Neut % (Auto) 61.7 % % Lymph % (Auto) 20.3 % % [place] % (Auto) 14.5 % % Eos % (Auto) 2.8 % % Baso % (Auto) 0.7 % % Neut # (Auto) 1.79 10^3/uL L 10 ^3/uL (1.8-7.7) Lymph # (Auto) 0.6 10^3/uL L 10^ 3/uL (0.8-4.8) [place] # (Auto) 0.4 10^3/uL 10^3/ uL (0.2-0.9) Eos # (Auto) 0.1 10^3/uL 10^3/ uL (0.0-0.8) Baso # (Auto) 0.0 10^3/uL 10^3/ uL (0.0-0.1) Nucleated RBC % (a uto) 0 % % Nucleated RBCs # 0.0 /100WBC /100W BC Sodium 136 mmol/L mmol/L (136-145) Potassium 4.6 mmol/L mmol/L (3.5-5.1) Chloride 99 mmol/L mmol/L (98-107) Carbon Dioxide 27 mmol/L mmol/L (22-29) Anion Gap 14.6 (5-19) BUN 13 mg/dL mg/dL (8-23) Creatinine 1.0 mg/dL mg/dL (0.7-1.2) GFR Calculation 74.8 mL/min L mL/ min (90-130) Glucose 88 mg/dL mg/dL (65-115) Calculated Osmolal ity 282 mOsm/kg L mOs m/kg (285-295) Lactic Acid 0.9 mmol/L mmol/L (0.5-2.2) Calcium 8.5 mg/dL mg/dL (8.5-10.5) Total Bilirubin 0.4 mg/dL mg/dL (0.15-1.2) AST 13 U/L U/L (0-40) ALT 11 U/L U/L (0-41) Alkaline Phosphata se 95 IU/L IU/L (40-130) Troponin T Baselin e Troponin T 120 Min [place] Delta Troponin T NT-Pro-B Natriuret Pep 1829 pg/mL H pg/m L (0-125) Total Protein 7.0 g/dL g/dL (6.6-8.7) Albumin 3.8 g/dL g/dL (3.5-5.2) Globulin 3.2 g/dL g/dL (1.3-4.6) Procalcitonin SARS-CoV-2 Ag (Rap id) 04/14/21 04/14/21 04/14/21 13:45 13:45 14:11 WBC RBC Hgb Hct MCV MCH MCHC RDW Plt Count MPV Neut % (Auto) Lymph % (Auto) [place] % (Auto) Eos % (Auto) Baso % (Auto) Neut # (Auto) Lymph # (Auto) [place] # (Auto) Eos # (Auto) Baso # (Auto) Nucleated RBC % (a uto) Nucleated RBCs # Sodium Potassium Chloride Carbon Dioxide Anion Gap BUN Creatinine GFR Calculation Glucose Calculated Osmolal ity Lactic Acid Calcium Total Bilirubin AST ALT Alkaline Phosphata se Troponin T Baselin e 15 ng/L ng/L (0-15) Troponin T 120 Min [place] Delta Troponin T NT-Pro-B Natriuret Pep Total Protein Albumin Globulin Procalcitonin 0.07 ng/mL ng/mL (0-0.5) SARS-CoV-2 Ag (Rap id) Negative (Negative) 04/14/21 16:06 WBC RBC Hgb Hct MCV MCH MCHC RDW Plt Count MPV Neut % (Auto) Lymph % (Auto) [place] % (Auto) Eos % (Auto) Baso % (Auto) Neut # (Auto) Lymph # (Auto) [place] # (Auto) Eos # (Auto) Baso # (Auto) Nucleated RBC % (a uto) Nucleated RBCs # Sodium Potassium Chloride Carbon Dioxide Anion Gap BUN Creatinine GFR Calculation Glucose Calculated Osmolal ity Lactic Acid Calcium Total Bilirubin AST ALT Alkaline Phosphata se Troponin T Baselin e Troponin T 120 Min [place] 14.28 ng/L ng/L (0-15) Delta Troponin T -0.72 ABS# L ABS# (0-10) NT-Pro-B Natriuret Pep Total Protein Albumin Globulin Procalcitonin SARS-CoV-2 Ag (Rap id) EKG Data^: EKG 1: Attestation: I personally reviewed and interpreted this EKG as follows: EKG Interpretation Date: 04/14/21 EKG interpretation time: 12:04 Interpretation: Twelve-lead EKG shows a regular rhythm at a rate of 75. [place] interval 169, QRS duration 125, QTc 414. Normal axis. Interpretation: Sinus rhythm. PVCs. Bundle branch block. Discharge Plan Discharge Patient Disposition: Home Clinical Impression: COPD (chronic obstructive pulmonary disease), Pneumonia Condition: Stable Prescriptions: No Action cholecalciferol (vitamin D3) 25 mcg (1,000 unit) capsule 25 mcg PO DAILY RF: 0 aspirin 325 mg tablet 325 mg PO QAM RF: 0 Spiriva Respimat 2.5 mcg/actuation mist 2 inh INHALATION QAM RF: 0 ipratropium-albuterol 0.5 mg-3 mg(2.5 mg base)/3 mL Solution For Nebulization 3 ml INHALATION Q6H PRN (Reason: Shortness Of Breath) RF: 0 albuterol sulfate 90 mcg/actuation Hfa Aerosol Inhaler 2 puff INHALATION Q6H PRN (Reason: Shortness Of Breath) RF: 0 atorvastatin 20 mg tablet 10 mg PO BEDTIME RF: 0 Eliquis 5 mg Tablet 5 mg PO BID Qty: 60 RF: 0 Hold Instructions: Resume on 03/20/20. omeprazole 20 mg capsule,delayed release(DR/EC) 40 mg PO DAILY RF: 0 docusate sodium [Stool Softener] 100 mg Capsule 100 mg PO DAILY RF: 0 digoxin 250 mcg (0.25 mg) Tablet 250 mcg PO DAILY Qty: 30 RF: 0 levothyroxine [Levoxyl] 100 mcg Tablet 100 mcg PO DAILY Qty: 30 RF: 0 metoprolol tartrate 50 mg Tablet 75 mg PO BID Qty: 90 RF: 0 fluticasone propion-salmeterol 250-50 mcg/dose Blister With Device 1 inh INHALATION BID RF: 0 Nitrostat 0.4 mg Tablet, Sublingual 0.4 mg SUBLINGUAL Q5M PRN (Reason: Chest Pain) RF: 0 ferrous gluconate 324 mg (38 mg iron) Tablet 324 mg PO QAM RF: 0 potassium chloride 20 mEq Tablet Extended Release 10 meq PO DAILY RF: 0 Lasix 40 mg tablet 40 mg PO QAM RF: 0 Discharge Orders: Discharge ED (Routine); Ordered 04/14/21 Ordered By: Ronnie Separ Referrals: Isela Gipson FNP [Primary Care Provider] - Discharge Diet: Usual diet Discharge Activity: Resume usual activity Patient Instructions: COPD (Chronic Obstructive Pulmonary Disease) (ED), Pneumonia (ED) Activity Restrictions/Additional Instructions: Thank you for visiting the emergency department. You were seen and evaluated for cough and respiratory symptoms. The exact cause of your symptoms is unclear however may be related to pneumonia though no clear pneumonia is identified on chest x-ray. Clinically her symptoms are more consistent with pneumonia and likely COPD exacerbation. You will be given prescriptions. Please follow-up with your primary care provider. Please return to the emergency department for worsening symptoms or anything else that you are concerned about and feel needs emergency department evaluation. 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 of Care Code ED Occupational Health Physician for Kevin Arceo
--- NOTE | 2021-04-14 12:56 | XR_ITS ---
WS: [id number] Portable AP upright chest, 04/14/2021 Clinical Data: LLL abnormal lung sounds Comparison: Portable chest, 03/27/2021. Findings: No nodules, masses or effusions are seen. There is interstitial change at both lung bases w hich probably represents chronic fibrosis. The diaphragms are flattened. The heart is normal. The aor tic arch and descending thoracic aorta show tortuosity. Midline sternotomy sutures are present. There are sutures in the left apex. Monitor leads are on the chest wall. XR/XR chest 1V portable [id number] Impression: 1. Atherosclerosis and hyperinflation. 2. Chronic interstitial basilar lung disease.
--- NOTE | 2021-04-14 12:57 | ECG_ITS ---
[facility] Test Date: 2021-04-14 Pat Name: Gabino Jones Department: Room: Gender: Male Oncology Specialist: : [id number] Requested By: Ronnie Spear Order Number: [id number] Mick MD: Favio Ferguson M.D. Measurements Intervals [place] Rate: 75 P: 89 OR: 167 QRS: 35 QRSD: 125 T: 56 QT: 370 QTc: 414 Interpretive Statements SINUS RHYTHM WITH OCCASIONAL SUPRAVENTRICULAR PREMATURE COMPLEXES RIGHT BUNDLE BRANCH BLOCK [120+ ms QRS DURATION, UPRIGHT V1, 40+ ms S IN I/aVL/V4/V5/V6] Compared to ECG 03/30/2021 14:58:58 Sinus tachycardia no longer present Myocardial infarct finding no longer present T-wave abnormality no longer present Possible ischemia no longer present Electronically Signed On 04-14-2021 19:45:43 QUARRY WORKER by Favio Ferguson M.D. [id number] f
[2021-04-14 13:43] LABS: Basophils % 0.7 %; Eosinophils # 0.1 10^3/uL (0.0-0.8); Eosinophils % 2.8 %; Lymphocytes # 0.6 10^3/uL (0.8-4.8); Lymphocytes % 20.3 %; Mean Corpuscular HGB Conc 31.7 g/dL (30.0-36.0); Mean Corpuscular Hemoglobin 28.1 pg (28.0-34.0); Mean Corpuscular Volume 88.6 fl (80-94); Mean Platelet Volume 9.7 fL (7.4-10.4); Monocytes # 0.4 10^3/uL (0.2-0.9); Monocytes % 14.5 %; Neutrophils # 1.79 10^3/uL (1.8-7.7); Neutrophils % 61.7 %; Nucleated Red Blood Cells % 0 %; Platelet Count 246 10^3/cmm (130-400); Red Blood Count 4.63 10^6/uL (4.1-5.3); Red Cell Distribution Width 16.7 % (12.1-15.1); White Blood Count 2.9 10^3/uL (4.0-10.0)
[2021-04-14 14:01] LABS: Lactic Sepsis W/Reflex 0.9 mmol/L (0.5-2.2)
[2021-04-14 14:11] LABS: Alanine Aminotransferase 11 U/L (0-41); Albumin Level 3.8 g/dL (3.5-5.2); Alkaline Phosphatase 95 IU/L (40-130); Anion Gap 14.6 (5-19); Aspartate Amino Transferase 13 U/L (0-40); Blood Urea Nitrogen 13 mg/dL (8-23); Calcium 8.5 mg/dL (8.5-10.5); Carbon Dioxide 27 mmol/L (22-29); Chloride 99 mmol/L (98-107); Globulin 3.2 g/dL (1.3-4.6); Glomerular Filtration Rate 74.8 mL/min (90-130); Glucose 88 mg/dL (65-115); NT Pro B Type Natriuretic Pept 1829 pg/mL (0-125); Osmolality Calculated 282 mOsm/kg (285-295); Potassium 4.6 mmol/L (3.5-5.1); Sodium 136 mmol/L (136-145); Total Bilirubin 0.4 mg/dL (0.15-1.2)
[2021-04-14 14:11] LABS: Troponin(5th) Baseline 15 ng/L (0-15)
[2021-04-14 14:14] VITALS: BP 169/86; PULSE 75; RESP 230; O2SAT 100
--- NOTE | 2021-04-14 14:20 | PC.NURSE ---
Cardiac monitoring initiated upon arrival into room.
[2021-04-14 14:55] LABS: SARS Covid-2 Antigen Negative (Negative)
[2021-04-14 15:28] LABS: Procalcitonin 0.07 ng/mL (0-0.5)
[2021-04-14] MEDS: ipratropium-albuterol 3 mL Neb INHALATION (15:43)
[2021-04-14 15:52] VITALS: PULSE 81; RESP 16; O2SAT 95
[2021-04-14] MEDS: levoFLOXacin 750 mg Tablet PO (16:18)
[2021-04-14 16:26] VITALS: BP 171/85; PULSE 93; RESP 20; O2SAT 98
[2021-04-14 16:40] LABS: Troponin 5 2HR 14.28 ng/L (0-15)
[2021-04-14 16:41] LABS: Troponin 5 2HR Delta -0.72 ABS# (0-10)
[2021-04-14 16:46] VITALS: BP 171/85; PULSE 93; RESP 20; TEMP 36.4; O2SAT 98
== END 2021-04-14 16:45 | disposition home or self-care (01) ==
PROVIDERS: Emergency Provider Emergency Medicine; PCP Nurse Practitioner
DX: J44.0 Chronic obstructive pulmonary disease with (acute) lower respiratory infection (principal); J18.9 Pneumonia, unspecified organism; Z79.01 Long term (current) use of anticoagulants; Z79.82 Long term (current) use of aspirin; I11.0 Hypertensive heart disease with heart failure; I50.9 Heart failure, unspecified; I25.10 Atherosclerotic heart disease of native coronary artery without angina pectoris; E78.5 Hyperlipidemia, unspecified; Z95.1 Presence of aortocoronary bypass graft; Z87.891 Personal history of nicotine dependence; Z20.822 Contact with and (suspected) exposure to COVID-19
CPT/HCPCS: 71045; 80053; 83605; 83880; 84145; 84484; 85025; 87040; 87426; 93005; 94640; 96374; 99284; J2930

== ENCOUNTER → 2021-06-19 11:00 | Outpatient (BNVA) | payer OTHER, SELFPAY | PROVIDERS: PCP Nurse Practitioner; Visit Provider Surgery | DX: Z86.010 Personal history of colon polyps (principal); Z20.822 Contact with and (suspected) exposure to COVID-19 | CPT/HCPCS: 87635 ==

== ENCOUNTER 2021-06-22 06:49 | Day surgery (SDC) | payer OTHER, MEDICARE, SELFPAY ==
[2021-06-19 13:55] VITALS: BMI 30.1
[2021-06-22 07:16] VITALS: BP 161/84; PULSE 68; RESP 18; TEMP 36; O2SAT 98
[2021-06-22] MEDS: sodium chloride 0.9% 1,000 ML 30 ML IV (07:31)
--- NOTE | 2021-06-22 07:33 | W.PM.OPSFHP ---
Same Day Surgery H&P Indication for Procedure/HPI DATE OF PROCEDURE: June 22, 2021 CHIEF COMPLAINT/INDICATIONFOR SURGICAL PROCEDURE: COLON POLYPS PREOP DIAGNOSIS: History of colon polyp PLANNED PROCEDURE: Operation Date: 06/22/21 08:00 Proposed Procedures p Colonoscopy 34442 Z86.010(Not Applicable) - Osei Choi MD 05/08/21 Patient is a pleasant 65 years old gentleman well-known to me from previous clinical encounters as he did undergo a colonoscopy about a year ago and a large polyp was removed but that was not retrieved unfortunately and patient was educated about the importance of repeating surveillance colonoscopy in 1 year. Patient recently undergone open appendectomy 03/28/2021 and pathology did show; Vermiform appendix, appendectomy: ?Acute appendicitis with serositis. ?Fecalith. ?No malignancy identified. Patient reports that he has been mending well and denies any abdominal complaints 06/22/21 Patient comes today for surveillance colonoscopy ROS All systems have been reviewed negative except as for the above or per problem list Medications/Allergies* Home Medications Medication Instructions Recorded Confirmed Type albuterol sulfate 2 puff INHALATION Q6H PRN 09/25/19 06/19/21 History ipratropium-albuterol 3 ml INHALATION Q6H PRN 09/25/19 06/19/21 History atorvastatin 20 mg tablet 10 mg PO BEDTIME 10/27/19 06/19/21 History aspirin 325 mg tablet 325 mg PO QAM 10/04/20 06/19/21 History cholecalciferol (vitamin D3) 25 25 mcg PO DAILY 10/04/20 06/19/21 History mcg (1,000 unit) capsule omeprazole 20 mg capsule,delayed 40 mg PO DAILY cap 10/04/20 06/19/21 History release furosemide [Lasix] 40 mg PO QAM 03/28/21 06/19/21 History nitroglycerin [Nitrostat] 0.4 mg SUBLINGUAL Q5M PRN 03/28/21 06/19/21 History potassium chloride 10 meq PO DAILY 03/28/21 06/19/21 History docusate sodium 100 mg capsule 100 mg PO DAILY PRN 04/26/21 06/19/21 History tiotropium bromide 2.5 2 inh INHALATION QAM gm 04/26/21 06/19/21 History mcg/actuation mist for inhalation budesonide-formoterol [Symbicort] 2 puff INHALATION BID 06/19/21 06/19/21 History Allergies/Adverse Reactions Allergy/AdvReac Type Severity Reaction Status Date / Time No Known Allergies Allergy Verified 06/19/21 13:51 Current Medications: Generic Name Dose Route Start Last Admin Trade Name Freq PRN Reason Stop Dose Admin Sodium Chloride 1,000 mls @ 30 mls/hr 06/22/21 07:15 06/22/21 07:31 Sodium Chloride 0.9% IV 30 mls/hr .Q24H JUAN DAVID Administration Pertinent History/Comorbid Conditions* Medical History (Updated 05/08/21 @ 13:42 by Osei Choi MD) Anemia Atrial fibrillation CHF (congestive heart failure) Last echocardiogram normal EF, grade 2/4 diastolic dysfunction October 2019 Colon polyps COPD (chronic obstructive pulmonary disease) Coronary artery disease GERD (gastroesophageal reflux disease) Hyperlipidemia Hypertension Hypothyroidism Surgical History (Updated 04/30/21 @ 16:44 by Kashif Stern MD) History of colonoscopy (~04/2020) History of coronary artery bypass graft (03/2019) [address] [place] [address] History of knee surgery History of vasectomy S/P cholecystectomy Family History (Updated 10/14/19 @ 15:13 by Corwin Martini MD) CAD (coronary artery disease) Social History Quit status (tobacco): has quit using tobacco Year quit tobacco: 2016 - PPD x 52 Years Alcohol intake: never Counseling given: No Lives independently: Yes Household members: none Marital status: Legally Current occupational status: retired Current gender identity: Male Pertinent Exam Findings alert, oriented x 3 and procedure specific exam findings (Abdominal examination nontender nondistended soft) Recommendations Surgery/Procedure today (Colonoscopy with possible biopsy) Other Plans: Plan of care; After thorough history and physical examination and reviewing the chart, plan to perform surveillance colonoscopy. I discussed with the patient in details the risks,benefits,alternatives and indications.The risk of aspiration, bleeding, soft tissue injury, perforation of the colon and other potential concomitant complications were explained to the patient in details,also the potential need for Laproscoy/Laparotomy to repair any related complications including but not limited to colectomy and or Closotomy.The patient understood this well and did agree to proceed. Rationale was carefully and clearly discussed with the patient.Appropriate informed consent have been reviewed and signed All questions have been answered and all concerns have been addressed to patient's satisfaction. Verbal and written Instructions were given to the patient for colonoscopy prep 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 of Care Code Acute Electrical And Instrument Engineer for Kevin Arceo
--- NOTE | 2021-06-22 07:42 | P.ANESASSM_ITS ---
Pre-Anesthetic Assessment Pre-Anesthetic Assessment: Height/Weight: Height 1.78 m Weight 95.254 kg Temp Pulse Resp BP Pulse Ox 96.8 F L 68 18 161/84 98 06/22/21 07:16 06/22/21 07:16 06/22/21 07:16 06/22/21 07:16 06/22/21 07:16 Preop Diagnosis: History of colon polyp Proposed Procedure: Operation Date: 06/22/21 08:00 Proposed Procedures p Colonoscopy 31523 Z86.010(Not Applicable) - Osei Choi MD Was Beta Kulwant taken within 24 hours: Yes Was Clonidine taken within 24 hours: N/A Last intake: Intake Last Liquid Date 06/21/21 Last Liquid Time 21:30 Last Solid Date 06/21/21 Last Solid Time 10:00 Social: Social History: No alcohol and No tobacco Exam: Pre-Anes Outpt Exam: alert, oriented x 3, clear to auscultation bilaterally and regular rate & rhythm Airway: Submandibular: WNL Cervical ROM: WNL MP: 1 Dentition: False Pulmonary: Pulmonary: COPD, Cough and SOB Comments: 2l O2 at home when he needs it CV/HEM: CV/HEM: Arrythmia, CAD, HTN and AR Comments: CABG x 4 : : None reported Hepatic: Hepatic: None reported Metabolic: Metabolic: DM, Hyperlipidemia and Thyroid Musc/skel: Musc/skel: OA/DJD Neuropsych: Neuropsych: Anxiety Anesthetic Plan: ASA status: 3 Anesthesia: MAC Risk of > 500 ml blood loss (7ml/kg in children): No Medications/Allergies Current Medications: Current Medications Generic Name Dose Route Start Last Admin Trade Name Freq PRN Reason Stop Dose Admin Sodium Chloride 1,000 mls @ 30 ml s/hr 06/22/21 07:15 06/22/21 07:31 Sodium Chloride 0.9% IV 30 mls/hr .Q24H JUAN DAVID Administration PFSH Anesthesia PFSH: Medical History (Updated 05/22/21 @ 16:17 by Hilary Jensen LPN) Anemia Atrial fibrillation CHF (congestive heart failure) Last echocardiogram normal EF, grade 2/4 diastolic dysfunction October 2019 Colon polyps COPD (chronic obstructive pulmonary disease) Coronary artery disease GERD (gastroesophageal reflux disease) Hyperlipidemia Hypertension Hypothyroidism Surgical History History of colonoscopy (~04/2020) History of coronary artery bypass graft (03/2019) 4 [facility] History of knee surgery History of vasectomy S/P cholecystectomy Family History Other CAD (coronary artery disease) Social History Quit status (tobacco): has quit using tobacco Year quit tobacco: 2016 PPD x 52 Years Alcohol intake: never Counseling given: No Lives independently: Yes Household members: none Marital status: Legally Current occupational status: retired Current gender identity: Male Data Anesthesia Cardiac Studies: Echocardiogram Ultrasound 10/16/19
[2021-06-22 08:34] VITALS: BP 124/59; PULSE 63; RESP 16; TEMP 36.1; O2SAT 100
--- NOTE | 2021-06-22 08:35 | ANE.PACU2 ---
Inpatient post-anesthesia follow up: Airway intact: Yes Vital signs: Temperature 96.8 F Pulse Rate 68 Respiratory Rate 18 Blood Pressure 161/84 Pulse Oximetry 98 Oxygen Delivery Me thod Room Air Oxygen Flow Rate Fraction of Inspir ed Oxygen Hydration adequate: Yes Nausea and vomiting: No Pain level: 1 Mental status: Baseline
[2021-06-22 08:43] VITALS: BP 141/76; PULSE 60; RESP 16; O2SAT 98
--- NOTE | 2021-06-22 16:22 | ANE.PACU2 ---
Inpatient post-anesthesia follow up: Airway intact: Yes Vital signs: Temperature 97.0 F Pulse Rate 60 Respiratory Rate 16 Blood Pressure 141/76 Pulse Oximetry 98 Oxygen Delivery Me thod Room Air Oxygen Flow Rate 4 Fraction of Inspir ed Oxygen Hydration adequate: Yes Nausea and vomiting: No Pain level: 2 Mental status: Baseline
== END 2021-06-22 09:12 | disposition home or self-care (01) ==
PROVIDERS: PCP Nurse Practitioner; Visit Provider Surgery
PROC: 0DJD8ZZ Inspection of Lower Intestinal Tract, Via Natural or Artificial Opening Endoscopic (ICD-10-PCS; CPT 45378; principal; 2021-06-22 08:00)
DX: Z12.11 Encounter for screening for malignant neoplasm of colon (principal); Z86.010 Personal history of colon polyps; D12.2 Benign neoplasm of ascending colon; D12.4 Benign neoplasm of descending colon; D12.5 Benign neoplasm of sigmoid colon; Z79.82 Long term (current) use of aspirin; I48.91 Unspecified atrial fibrillation; I11.0 Hypertensive heart disease with heart failure; I50.9 Heart failure, unspecified; J44.9 Chronic obstructive pulmonary disease, unspecified; I25.10 Atherosclerotic heart disease of native coronary artery without angina pectoris; E78.5 Hyperlipidemia, unspecified; E03.9 Hypothyroidism, unspecified; Z82.49 Family history of ischemic heart disease and other diseases of the circulatory system; I25.2 Old myocardial infarction; Z95.1 Presence of aortocoronary bypass graft; F41.9 Anxiety disorder, unspecified; Z87.891 Personal history of nicotine dependence
CPT/HCPCS: 45380; 45385; 88305; J2704; J7030

== ENCOUNTER → 2021-08-03 10:28 | Outpatient (BNVA) | payer OTHER, SELFPAY | PROVIDERS: PCP Nurse Practitioner; Visit Provider Internal Medicine Critical Care Medicine | DX: J44.9 Chronic obstructive pulmonary disease, unspecified (principal); J96.11 Chronic respiratory failure with hypoxia; I25.810 Atherosclerosis of coronary artery bypass graft(s) without angina pectoris; I48.0 Paroxysmal atrial fibrillation; I50.32 Chronic diastolic (congestive) heart failure; Z87.891 Personal history of nicotine dependence | CPT/HCPCS: 71046; 99214 ==

== ENCOUNTER 2021-08-19 09:38 | Inpatient (IN) | payer OTHER, MEDICARE, SELFPAY ==
[2021-08-19] VITALS (18 sets, daily range): BP systolic 119–170; BP diastolic 56–101; PULSE 73–104; RESP 15–23; TEMP 36.8–37.6; O2SAT 81–94; BMI 29.8
--- NOTE | 2021-08-19 09:58 | XRR_ITS ---
PROCEDURE INFORMATION: Exam: XR Chest Exam date and time: 08/19/2021 9:18 AM Age: 65 years old Clinical indication: Shortness of breath; Additional info: SOB TECHNIQUE: Imaging protocol: XR of the chest. Views: 1 view. COMPARISON: CR XR chest 2V* [id number] 08/03/2021 11:39 AM FINDINGS: Lungs: Parenchymal consolidation is seen in the right lower lobe consistent with pneumonia. This finding has increased since prior examination. Pleural spaces: Unremarkable. No pleural effusion. No pneumothorax. Heart/Mediastinum: Unremarkable. No cardiomegaly. Bones/joints: Metallic sternotomy wires are in place. XR/XR chest 1V portable [id number] IMPRESSION: 1. New right lower lobe pneumonia. 2. Status post sternotomy.
--- NOTE | 2021-08-19 10:01 | ED_ITS ---
HPI - SOB/Dyspnea General: Chief Complaint: Shortness of Breath/Dyspnea Stated Complaint: SOB Time Seen by Provider: 08/19/21 09:49 History of Present Illness: HPI Narrative: Pt comes in c/o sob and productive cough for the last week. Has a h/o of COPD. Denies fever. Denies headache, body aches, vomiting, or diarrhea. Associated symptoms: Deny abdominal pain, chest pain, fever(s), nausea, palpitations, polyuria or vomiting Review of Systems Const: Denies: fever(s) or body aches Eyes: Denies: change in vision or blurry vision ENMT: Denies: throat pain or odynophagia Card: Denies: chest pain or palpitations Resp: Reports: dyspnea and productive cough GI: Denies: abdominal pain, nausea or vomiting : Denies: flank pain or dysuria Musc: Denies: neck pain or back pain Skin/Breast: Denies: rash or pruritus Neuro: Denies: headache(s) or numbness in extremities Psych: Denies: anxiety or change in appetite Endo: Denies: polyuria or excessive sweating PFSH ED PFSH: Medical History Anemia Atrial fibrillation CHF (congestive heart failure) Last echocardiogram normal EF, grade 2/4 diastolic dysfunction October 2019 Colon polyps COPD (chronic obstructive pulmonary disease) Coronary artery disease GERD (gastroesophageal reflux disease) Hyperlipidemia Hypertension Hypothyroidism Surgical History History of colonoscopy (~04/2020) History of coronary artery bypass graft (03/2019) [address] [place] [address] History of knee surgery History of vasectomy S/P cholecystectomy Family History Other CAD (coronary artery disease) Social History Smoking and tobacco status: former smoker Quit status (tobacco): has quit using tobacco Year quit tobacco: 2017 - PPD x 52 Years Alcohol intake: never Counseling given: No Lives independently: Yes Household members: none Marital status: Legally Current occupational status: retired Current gender identity: Male Physical Exam Const: COMMON NORMALS: no acute distress, patient oriented x3, healthy appearing and alert HENMT: COMMON NORMALS: normocephalic and atraumatic HEAD & SCALP: normocep halic and atraumatic Eye: COMMON NORMALS: Equal, round and reactive pupils present and EOMs intact bilaterally PUPIL: Yes Equal, round and reactive pupils present Neck/C-Spine: COMMON NORMALS: full ROM and supple Resp: OTHER: Expiratory wheezes in all lung rivera, decreased air movement throughout, coarse breath sounds in the right base Cardio: COMMON NORMALS: regular rate and regular rhythm RATE: regular rate RHYTHM: regular rhythm GI: COMMON NORMALS: Normal to inspection, nondistended, normoactive bowel sounds present, Soft to palpation and non-tender PALPATION: Yes Soft to palpation Back/Pelvis: COMMON NORMALS: thoracic and lumbar spine normal to inspection and no thoracic nor lumbar tenderness Extremity: COMMON NORMALS: normal to inspection and full ROM Neuro: COMMON NORMALS: patient oriented x3 SENSORIUM/ORIENTATION: Yes alert Psych: COMMON NORMALS: mental status grossly normal and cooperative Skin: COMMON NORMALS: no rashes or lesions noted and no wounds GENERAL SKIN EXAM: no rashes or lesions noted Course Vital Signs: Vital signs: Vital Signs Temperature 99.6 F 08/19/21 09:52 Pulse Rate 100 08/19/21 10:20 Respiratory Rate 23 H 08/19/21 10:15 Blood Pressure 126/74 08/19/21 09:52 Pulse Oximetry 94 08/19/21 10:15 MDM - SOB/Dyspnea Medical Decision Making Pt comes in c/o sob and productive cough for the last week. Has a h/o of COPD. Denies fever. Denies headache, body aches, vomiting, or diarrhea. On physical exam he has expiratory wheezes in all lung rivera with coarse breath sounds in his right lower lung. Will check x-ray, labs, give nebulizer treatment, steroids, and reassess. On reassessment I talked to the patient about the test results. We will start him on antibiotics for community-acquired pneumonia. I discussed the case with the hospitalist, and we will admit for further work-up and treatment. Lab Data : 08/19/21 10:03 08/19/21 10:03 Labs/Radiology: Radiology Impressions Chest X-Ray 08/19/21 09:58 IMPRESSION: 1. New right lower lobe pneumonia. 2. Status post sternotomy. Laboratory Results WBC 10.9 10^3/uL (4.0-10.0) H 08/19/21 10:03 RBC 5.83 10^6/uL (4.1-5.3) H 08/19/21 10:03 Hgb 16.1 g/dL (11.7-16.6) 08/19/21 10:03 Hct 49.4 % (42.0-52.0) 08/19/21 10:03 MCV 84.7 fl (80-94) 08/19/21 10:03 MCH 27.6 pg (28.0-34.0) L 08/19/21 10:03 MCHC 32.6 g/dL (30.0-36.0) 08/19/21 10:03 RDW 15.8 % (12.1-15.1) H 08/19/21 10:03 Plt Count 127 10^3/cmm (130-400) L 08/19/21 10:03 MPV 9.8 fL (7.4-10.4) 08/19/21 10:03 Neut % (Auto) 90.1 % 08/19/21 10:03 Lymph % (Auto) 4.0 % 08/19/21 10:03 Osborne % (Auto) 5.2 % 08/19/21 10:03 Eos % (Auto) 0.0 % 08/19/21 10:03 Baso % (Auto) 0.2 % 08/19/21 10:03 Neut # (Auto) 9.79 10^3/uL (1.8-7.7) H 08/19/21 10:03 Lymph # (Auto) 0.4 10^3/uL (0.8-4.8) L 08/19/21 10:03 Osborne # (Auto) 0.6 10^3/uL (0.2-0.9) 08/19/21 10:03 Eos # (Auto) 0.0 10^3/uL (0.0-0.8) 08/19/21 10:03 Baso # (Auto) 0.0 10^3/uL (0.0-0.1) 08/19/21 10:03 Nucleated RBC % (auto) 0 % 08/19/21 10:03 Nucleated RBCs # 0.0 /100WBC 08/19/21 10:03 Specimen Type Arterial 08/19/21 10:12 Sample Site Brachial, right 08/19/21 10:12 ABG pH 7.45 (7.35-7.45) 08/19/21 10:12 ABG pCO2 35.6 mmHg (35-45) 08/19/21 10:12 ABG pO2 61.9 mmHg (80.0-100.0) L 08/19/21 10:12 ABG HCO3 24.7 mmol/L (22-26) 08/19/21 10:12 ABG Base Excess 1.1 mmol/L (-2.0-2.0) 08/19/21 10:12 Derek Test Pos 08/19/21 10:12 Hematocrit 49.9 % (42-52) 08/19/21 10:12 Hgb O2 Saturation 90.7 % (95-100) L 08/19/21 10:12 Carboxyhemoglobin 1.1 %THgb (0.4-20.1) 08/19/21 10:12 Methemoglobin 0.3 % (0.4-1.5) L 08/19/21 10:12 Total Hemoglobin 16.3 g/dL (14-18) 08/19/21 10:12 O2 Delivery Device Nc 08/19/21 10:12 O2 Liters/Min 4.0 % 08/19/21 10:12 FiO2 36.0 % 08/19/21 10:12 Special Loan Officer ID Monro 08/19/21 10:12 Sodium 136 mmol/L (136-145) 08/19/21 10:03 Potassium 4.3 mmol/L (3.5-5.1) 08/19/21 10:03 Chloride 98 mmol/L (98-107) 08/19/21 10:03 Carbon Dioxide 26 mmol/L (22-29) 08/19/21 10:03 Anion Gap 16.3 (5-19) 08/19/21 10:03 BUN 18 mg/dL (8-23) 08/19/21 10:03 Creatinine 1.0 mg/dL (0.7-1.2) 08/19/21 10:03 GFR Calculation 74.8 mL/min (90-130) L 08/19/21 10:03 Glucose 112 mg/dL (65-115) 08/19/21 10:03 Calculated Osmolality 285 mOsm/kg (285-295) 08/19/21 10:03 Lactic Acid 1.8 mmol/L (0.5-2.2) 08/19/21 10:03 Calcium 9.0 mg/dL (8.5-10.5) 08/19/21 10:03 Total Bilirubin 1.3 mg/dL (0.15-1.2) H 08/19/21 10:03 AST 15 U/L (0-40) 08/19/21 10:03 ALT 12 U/L (0-41) 08/19/21 10:03 Alkaline Phosphatase 73 IU/L (40-130) 08/19/21 10:03 NT-Pro-B Natriuret Pep 6121 pg/mL (0-125) H 08/19/21 10:03 Total Protein 7.2 g/dL (6.6-8.7) 08/19/21 10:03 Albumin 4.1 g/dL (3.5-5.2) 08/19/21 10:03 Globulin 3.1 g/dL (1.3-4.6) 08/19/21 10:03 Discharge Plan Discharge Patient Disposition: Admitted As Inpatient Clinical Impression: Community acquired pneumonia Condition: Stable 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 of Care Code ED German Professor for Kevin Fwd Exam Comprehensive
[2021-08-19 10:13] LABS: Basophils % 0.2 %; Hematocrit 49.4 % (42.0-52.0); Hemoglobin 16.1 g/dL (11.7-16.6); Lymphocytes # 0.4 10^3/uL (0.8-4.8); Mean Corpuscular HGB Conc 32.6 g/dL (30.0-36.0); Mean Corpuscular Hemoglobin 27.6 pg (28.0-34.0); Mean Corpuscular Volume 84.7 fl (80-94); Mean Platelet Volume 9.8 fL (7.4-10.4); Monocytes # 0.6 10^3/uL (0.2-0.9); Monocytes % 5.2 %; Neutrophils # 9.79 10^3/uL (1.8-7.7); Neutrophils % 90.1 %; Nucleated Red Blood Cells % 0 %; Platelet Count 127 10^3/cmm (130-400); Red Blood Count 5.83 10^6/uL (4.1-5.3); Red Cell Distribution Width 15.8 % (12.1-15.1); White Blood Count 10.9 10^3/uL (4.0-10.0)
[2021-08-19] MEDS: ipratropium-albuterol 3 mL Neb INHALATION ×4 (10:14→20:39)
[2021-08-19 10:26] LABS: ABG PCO2 35.6 mmHg (35-45); ABG PH Result 7.45 (7.35-7.45); Arterial Blood Gas Hematocrit 49.9 % (42-52); Base Excess ABG 1.1 mmol/L (-2.0-2.0); Blood Gas Allen Test Pos; Blood Gas Operator Identificat MONRO; Blood Gas Sample Site Brachial, right; Blood Gas Sample Type Arterial; Carboxyhemoglobin 1.1 %THgb (0.4-20.1); HCO3 ABG 24.7 mmol/L (22-26); HGB O2 Sat 90.7 % (95-100); Methemoglobin 0.3 % (0.4-1.5); Oxygen Device NC; PO2 ABG 61.9 mmHg (80.0-100.0); Total Hemoglobin 16.3 g/dL (14-18)
[2021-08-19 10:38] LABS: Lactic Sepsis W/Reflex 1.8 mmol/L (0.5-2.2)
[2021-08-19 10:47] LABS: Alanine Aminotransferase 12 U/L (0-41); Albumin Level 4.1 g/dL (3.5-5.2); Alkaline Phosphatase 73 IU/L (40-130); Anion Gap 16.3 (5-19); Aspartate Amino Transferase 15 U/L (0-40); Blood Urea Nitrogen 18 mg/dL (8-23); Carbon Dioxide 26 mmol/L (22-29); Chloride 98 mmol/L (98-107); Creatinine Clr Calc Pharmacy 83.8038; Globulin 3.1 g/dL (1.3-4.6); Glomerular Filtration Rate 74.8 mL/min (90-130); Glucose 112 mg/dL (65-115); NT Pro B Type Natriuretic Pept 6121 pg/mL (0-125); Osmolality Calculated 285 mOsm/kg (285-295); Potassium 4.3 mmol/L (3.5-5.1); Sodium 136 mmol/L (136-145); Total Bilirubin 1.3 mg/dL (0.15-1.2); Total Protein 7.2 g/dL (6.6-8.7)
[2021-08-19] MEDS: cefTRIAXone 1,000 MG in sodium chloride 0.9% (plus) 50 ML 100 MG IV (11:39)
--- NOTE | 2021-08-19 12:01 | PM.HP ---
Providers/Chief Complaint Primary Care Provider: PATO Hernandez Chief Complaint: SOB History of Present Illness Gabino Jones is a 65 year old male with a past medical history of gold D stage COPD, history of smoking in the past, history of diastolic CHF, history of atrial fibrillation, on Eliquis, who presents to [facility] due to worsening shortness of breath. Patient tells me that he only uses oxygen during the night, he stopped smoking 2018, recently has been experiencing increased shortness of breath, increased shortness of breath with exertion, no fevers, has having a productive cough, yellow sputum, no nausea, no vomiting, no chest pain, has been vaccinated for COVID, has received flu vaccine, no sick contacts Review of Systems Const: Denies: fever(s), chills, fatigue or malaise Eyes: Denies: change in vision ENMT: Denies: nasal congestion GI: Denies: abdominal pain, nausea, vomiting, hematemesis or diarrhea : Denies: dysuria Skin/Breast: Denies: rash Neuro: Denies: headache(s), dizziness or vertigo Medications/Allergies Home Medications Medication Instructions Recorded Confirmed Last Taken Type albuterol sulfate 90 mcg/actuation 2 puff INHALATION Q6H PRN 09/25/19 08/19/21 06/19/21 History aerosol inhaler ipratropium 0.5 mg-albuterol 3 mg 3 ml INHALATION Q6H PRN 09/25/19 08/19/21 06/21/21 History (2.5 mg base)/3 mL nebulization soln apixaban 5 mg tablet (Eliquis) 5 mg PO BID #60 tab 10/16/19 08/19/21 08/18/21 Rx atorvastatin 20 mg tablet 10 mg PO BEDTIME 10/27/19 08/19/21 08/18/21 History digoxin 250 mcg (0.25 mg) tablet 250 mcg PO DAILY #30 tab 01/22/20 08/19/21 08/18/21 Rx levothyroxine 100 mcg tablet 100 mcg PO DAILY #30 tab 01/22/20 08/19/21 08/18/21 Rx (Levoxyl) metoprolol tartrate 50 mg tablet 75 mg PO BID #90 tab 01/22/20 08/19/21 08/18/21 Rx aspirin 325 mg tablet 325 mg PO DAILY 10/04/20 08/19/21 08/18/21 History omeprazole 20 mg capsule,delayed 40 mg PO DAILY cap 10/04/20 08/19/21 08/18/21 History release furosemide 40 mg tablet (Lasix) 40 mg PO QAM 03/28/21 08/19/21 08/18/21 History nitroglycerin 0.4 mg sublingual 0.4 mg SUBLINGUAL Q5M PRN 03/28/21 08/19/21 06/19/21 History tablet (Nitrostat) potassium chloride 20 mEq 10 meq PO DAILY 03/28/21 08/19/21 08/18/21 History tablet,extended release docusate sodium 100 mg capsule 100 mg PO DAILY PRN 04/26/21 08/19/21 06/19/21 History (Stool Softener) tiotropium bromide 2.5 2 inh INHALATION QAM gm 04/26/21 08/19/21 08/18/21 History mcg/actuation mist for inhalation (Spiriva Respimat) budesonide-formoterol HFA 160 2 puff INHALATION BID 06/19/21 08/19/21 08/18/21 History mcg-4.5 mcg/actuation aerosol inhaler (Symbicort) Allergies Allergy/AdvReac Type Severity Reaction Status Date / Time No Known Allergies Allergy Verified 08/03/21 10:50 PFSH Acute PFSH: Medical History Anemia Atrial fibrillation CHF (congestive heart failure) Last echocardiogram normal EF, grade 2/4 diastolic dysfunction October 2019 Colon polyps COPD (chronic obstructive pulmonary disease) Coronary artery disease GERD (gastroesophageal reflux disease) Hyperlipidemia Hypertension Hypothyroidism Surgical History History of colonoscopy (~04/2020) History of coronary artery bypass graft (03/2019) [address] [place] [address] History of knee surgery History of vasectomy S/P cholecystectomy Family History Other CAD (coronary artery disease) Social History Smoking and tobacco status: former smoker Quit status (tobacco): has quit using tobacco Year quit tobacco: 2017 - PPD x 52 Years Alcohol intake: never Counseling given: No Lives independently: Yes Household members: none Marital status: Legally Current occupational status: retired Current gender identity: Male Vitals/I&O/Wt Last Vital Signs Temp 99.6 F 08/19/21 09:52 Pulse 100 08/19/21 11:51 Resp 23 H 08/19/21 10:15 BP 143/56 08/19/21 11:51 Pulse Ox 92 08/19/21 11:51 Weight last 48 hrs Weight 94.347 kg Physical Exam Const: COMMON NORMALS: no acute distress and patient oriented x3 Resp: COMMON NORMALS: normal respiratory effort, No retractions, No use of accessory muscles and clear to auscultation bilaterally AUSCULTATION: wheezes Cardio: COMMON NORMALS: regular rate, regular rhythm, S1 normal heart sound present and S2 normal heart sound present RATE: regular rate RHYTHM: regular rhythm HEART SOUNDS: S1 normal heart sound present and S2 normal heart sound present GI: COMMON NORMALS: Normal to inspection, nondistended, normoactive bowel sounds present, Soft to palpation, non-tender and No hepatosplenomegaly present Extremity: COMMON NORMALS: no pedal edema Neuro: COMMON NORMALS: patient oriented x3 Psych: COMMON NORMALS: mental status grossly normal Data : 08/19/21 10:03 08/19/21 10:03 A&P Assessment and plan (1) Community acquired pneumonia: Status: Acute (2) History of coronary artery bypass graft: Status: Acute (3) Chronic anticoagulation: Status: Chronic (4) Chronic respiratory failure with hypoxia: Status: Chronic (5) Heart failure with preserved ejection fraction: Status: Chronic Qualifiers: Heart failure chronicity: chronic Qualified Code(s): I50.32 - Chronic diastolic (congestive) heart failure (6) Coronary artery disease: Status: Chronic Qualifiers: Coronary Disease-Associated Artery/Lesion type: bypass graft [place] vs. transplanted heart: [place] heart Associated angina: without angina Qualified Code(s): I25.810 - Atherosclerosis of coronary artery bypass graft(s) without angina pectoris (7) Hypertension: Status: Chronic Qualifiers: Hypertension type: unspecified secondary hypertension Qualified Code(s): I15.9 - Secondary hypertension, unspecified (8) Atrial fibrillation: Status: Chronic Qualifiers: Atrial fibrillation type: paroxysmal Qualified Code(s): I48.0 - Paroxysmal atrial fibrillation (9) GERD (gastroesophageal reflux disease): Status: Chronic Qualifiers: Esophagitis presence: without esophagitis Qualified Code(s): K21.9 - Gastro-esophageal reflux disease without esophagitis (10) Hypothyroidism: Status: Chronic Qualifiers: Hypothyroidism type: acquired Qualified Code(s): E03.9 - Hypothyroidism, unspecified (11) Hyperlipidemia: Status: Chronic Qualifiers: Hyperlipidemia type: mixed hyperlipidemia Qualified Code(s): E78.2 - Mixed hyperlipidemia (12) COPD (chronic obstructive pulmonary disease): Status: Chronic (13) COPD exacerbation: Status: Acute Plan Community-acquired pneumonia, right lower lobe pneumonia Sputum cultures, blood cultures, urine bacterial antigens Rocephin, azithromycin Ipratropium, budesonide Oxygen therapy COPD exacerbation Antibiotics as above Solu-Medrol 120, followed by 40 every 8 hours Diastolic CHF exacerbation, evidence of fluid, elevated BNP -We will give 1 dose of Lasix Atrial fibrillation, continue Eliquis, Toprol, digoxin CABG, as above Hypertension, as above Hypothyroidism, continue home medications Eliquis for DVT prophylaxis Full code Attestations Medical Necessity Statement*: Patient requires hospitalization, for COPD exacerbation, right lower lobe pneumonia, pulmonary edema 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 of Care Code Acute Electric Motor Rebuilder for Chg Fwd Diagnoses Community acquired pneumonia J18.9 History of coronary artery bypass graft Z95.1 Chronic anticoagulation Z79.01 Chronic respiratory failure with hypoxia J96.11 Heart failure with preserved ejection fraction I50.32 Heart failure chronicity: chronic Coronary artery disease I25.810 Coronary Disease-Associated Artery/Lesion type: bypass graft [place] vs. transplanted heart: [place] heart Associated angina: without angina Hypertension I15.9 Hypertension type: unspecified secondary hypertension Atrial fibrillation I48.0 Atrial fibrillation type: paroxysmal GERD (gastroesophageal reflux disease) K21.9 Esophagitis presence: without esophagitis Hypothyroidism E03.9 Hypothyroidism type: acquired Hyperlipidemia E78.2 Hyperlipidemia type: mixed hyperlipidemia COPD (chronic obstructive pulmonary disease) J44.9 COPD exacerbation J44.1
[2021-08-19 12:37] LABS: Estmated Average Glucose 120; Hemoglobin A1C 5.8 % (4.0-6.0)
[2021-08-19] MEDS: azithromycin 500 MG in sodium chloride 0.9% 250 ML 250 MG IV (12:42)
[2021-08-19 12:56] LABS: Procalcitonin 4.05 ng/mL (0-0.5)
[2021-08-19] MEDS: FUROsemide 10 mg/mL SDV 4mL 40 MG IVP (13:32)
[2021-08-19 13:55] LABS: Thyroid Stimulating Hormone 1.38 uIU/mL (0.27-4.20)
[2021-08-19 13:56] LABS: Adenovirus Not Detected (NOT DETECT); Chlamydia Pneumoniae Not Detected (NOT DETECT); Coronavirus 229E,HKU1,NL63,OC4 Detected (NOT DETECT); Human Metapneumovirus Not Detected (NOT DETECT); Human Rhinovirus/Enterovirus Not Detected (NOT DETECT); Influenza A Not Detected (NOT DETECT); Influenza A H1 Not Detected (NOT DETECT); Influenza A H1-2009 Not Detected (NOT DETECT); Influenza A H3 Not Detected (NOT DETECT); Influenza B Not Detected (NOT DETECT); Mycoplasma Pneumoniae Not Detected (NOT DETECT); Parainfluenza Virus Type 1 Not Detected (NOT DETECT); Parainfluenza Virus Type 2 Not Detected (NOT DETECT); Parainfluenza Virus Type 3 Not Detected (NOT DETECT); Parainfluenza Virus Type 4 Not Detected (NOT DETECT); Respiratory Syncytial Virus A Not Detected (NOT DETECT); Respiratory Syncytial Virus B Not Detected (NOT DETECT); SARS-COV-2 Not Detected (NOT DETECT)
[2021-08-19] MEDS: apixaban 5 mg Tablet PO (18:57)
[2021-08-19] MEDS: metoprolol tartrate 50 mg Tablet 75 MG PO (18:57)
[2021-08-19] MEDS: atorvastatin 40 mg Tablet 20 MG PO (20:35)
[2021-08-19] MEDS: budesonide 0.5 mg/2 mL Neb INHALATION (20:39)
[2021-08-20] VITALS (20 sets, daily range): BP systolic 117–142; BP diastolic 70–77; PULSE 71–88; RESP 16–18; TEMP 36.7–37.1; O2SAT 91–97
[2021-08-20 05:29] LABS: Basophils % 0.2 %; Hematocrit 45.5 % (42.0-52.0); Hemoglobin 14.8 g/dL (11.7-16.6); Lymphocytes # 0.6 10^3/uL (0.8-4.8); Lymphocytes % 5.8 %; Mean Corpuscular HGB Conc 32.5 g/dL (30.0-36.0); Mean Corpuscular Hemoglobin 27.7 pg (28.0-34.0); Mean Corpuscular Volume 85.2 fl (80-94); Mean Platelet Volume 10.4 fL (7.4-10.4); Monocytes # 0.5 10^3/uL (0.2-0.9); Monocytes % 4.9 %; Neutrophils # 9.34 10^3/uL (1.8-7.7); Neutrophils % 88.6 %; Nucleated Red Blood Cells % 0 %; Platelet Count 152 10^3/cmm (130-400); Red Blood Count 5.34 10^6/uL (4.1-5.3); Red Cell Distribution Width 15.9 % (12.1-15.1); White Blood Count 10.5 10^3/uL (4.0-10.0)
[2021-08-20 05:56] LABS: Alanine Aminotransferase 9 U/L (0-41); Albumin Level 3.7 g/dL (3.5-5.2); Alkaline Phosphatase 65 IU/L (40-130); Anion Gap 13.3 (5-19); Aspartate Amino Transferase 9 U/L (0-40); Blood Urea Nitrogen 29 mg/dL (8-23); Calcium 8.8 mg/dL (8.5-10.5); Carbon Dioxide 29 mmol/L (22-29); Chloride 99 mmol/L (98-107); Creatinine Clr Calc Pharmacy 76.1852; Globulin 2.8 g/dL (1.3-4.6); Glucose 158 mg/dL (65-115); Magnesium 2.4 mg/dL (1.7-2.3); NT Pro B Type Natriuretic Pept 2381 pg/mL (0-125); Osmolality Calculated 293 mOsm/kg (285-295); Phosphorus 2.7 mg/dL (2.5-4.5); Potassium 4.3 mmol/L (3.5-5.1); Sodium 137 mmol/L (136-145); Total Bilirubin 0.7 mg/dL (0.15-1.2); Total Protein 6.5 g/dL (6.6-8.7)
[2021-08-20] MEDS: budesonide 0.5 mg/2 mL Neb INHALATION ×2 (07:51→20:30)
[2021-08-20] MEDS: ipratropium-albuterol 3 mL Neb INHALATION ×4 (07:51→20:31)
[2021-08-20] MEDS: levothyroxine 100 mcg Tablet PO (09:42)
[2021-08-20] MEDS: aspirin 325 mg Tablet PO (09:42)
[2021-08-20] MEDS: pantoprazole DR 40 mg Tablet PO (09:42)
[2021-08-20] MEDS: digoxin 250 mcg Tablet PO (09:42)
[2021-08-20] MEDS: potassium chloride ER 10 mEq Tablet PO (09:42)
[2021-08-20] MEDS: apixaban 5 mg Tablet PO ×2 (09:43→18:08)
[2021-08-20] MEDS: metoprolol tartrate 50 mg Tablet 75 MG PO ×2 (09:43→18:06)
--- NOTE | 2021-08-20 09:44 | CTR_ITS ---
PROCEDURE INFORMATION: Exam: CT Chest Without Contrast; Diagnostic Exam date and time: 08/20/2021 10:36 AM Age: 65 years old Clinical indication: Shortness of breath; Prior surgery; Surgery type: Open heart; Additional info: SOB TECHNIQUE: Imaging protocol: Diagnostic computed tomography of the chest without contrast. Radiation optimization: All CT scans at this facility use at least one of these dose optimization techniques: automated exposure control; mA and/or kV adjustment per patient size (includes targeted exams where dose is matched to clinical indication); or iterative reconstruction. COMPARISON: CT angio chest abdomen pelvis 03/27/2021 8:28 PM RADIATION DOSE METRICS: Total DLP (mGy-cm): 850.88 FINDINGS: Lungs: Severe centrilobular emphysematous changes of the lungs. Multifocal lobulated opacities noted within both lung bases, right greater than left. There is also progressed subpleural cyst formation resembling honeycombing at the lung bases. Pleural spaces: No pneumothorax. No pleural effusion. Heart: Coronary artery calcifications noted. No cardiomegaly. No pericardial effusion. Aorta: No aortic aneurysm. Lymph nodes: No enlarged lymph nodes. Diaphragm: Small hiatal hernia. Bones/joints: No acute fracture. Sternotomy wires noted. Soft tissues: Unremarkable. CT/CT chest wo con [id number] IMPRESSION: 1. Severe centrilobular emphysematous changes of the lungs. New multifocal lobulated opacities noted within both lungs bases, right greater than left. This most resembles mucous plugging or bronchopneumonia. 2. In addition, there is progressed subpleural cyst formation at the lung bases resembling honeycombing and UIP interstitial lung disease. 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
--- NOTE | 2021-08-20 10:29 | PC.CHAP ---
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 crusher machine operator visit [] Patient/Family/Request visit [] Outpatient visit [] Follow-up visit [] Physician referral [] Code/Alert [x] Routine visit [] Staff referral [] Actively dying [] Patient sleeping [] Family support [] [] Out of room [] Palliative care [] [] Receiving care in room [] Pre-surgical visit [] Trauma [] Long length of stay [] ICU visit [] Other: Relational/Emotional Strength [x] Patient feels connected with others/family/visitors/staff [] Distress [] Loneliness/isolation [] Abandonment Spirituality of Patient [x] Person of [place] [x] Attends Muslim of their [place] [x] Believes in Prayer [] Reads Bible or Protestant materials [] There are Spiritual issues to be addressed Cost Estimator Interventions [x] Prayer [x] Active listening [x] Non-anxious presence [x] Spiritual/emotional support [] Crisis/trauma care [] Spiritual counseling [] Bereavement support [] Provided bereavement packet [] Provided Bible/devotional materials [] Provided toy/stuffed animal, coloring book to patient or family member [] Provided Communion [] Anointing/[place] [] Salvation [] Completed spiritual assessment [] Other: Impact on Illness or Injury [] Angry [] Fearful [] Anxious [] Often cries [] Exhaustion [] Unable to work [] Unable to attend methodist [] Unable to walk/stand [] Unable to read [] Unable to drive [] Unable to eat/drink [] Unable to sleep [] Unable to be with family [] Patient intubated [] Other: Summary Cost Estimator prayed with Patient. Time spent with patient 8 minutes.
--- NOTE | 2021-08-20 11:43 | PM.PN ---
Subjective Subjective: Patient was seen this morning, he tells me that he feels better overall, but continues to have significant mucus production, productive cough, Vitals/I&O/Wt Last Vital Signs Temp 98.2 F 08/20/21 07:34 Pulse 75 08/20/21 11:27 Resp 16 08/20/21 11:27 BP 123/77 08/20/21 07:34 Pulse Ox 97 08/20/21 11:27 08/19/21 08/20/21 08/20/21 22:59 06:59 14:59 Intake Total 290 / 340 240 / 240 Output Total 400 / 400 200 / 600 450 / 450 Balance -110 / -60 -200 / -260 -210 / -210 Weight last 48 hrs Weight 94.347 kg Physical Exam Const: COMMON NORMALS: no acute distress and patient oriented x3 Resp: COMMON NORMALS: normal respiratory effort, No retractions and No use of accessory muscles AUSCULTATION: wheezes Cardio: COMMON NORMALS: regular rate, regular rhythm, S1 normal heart sound present and S2 normal heart sound present RATE: regular rate RHYTHM: regular rhythm HEART SOUNDS: S1 normal heart sound present and S2 normal heart sound present GI: COMMON NORMALS: Normal to inspection, nondistended, normoactive bowel sounds present, Soft to palpation, non-tender and No hepatosplenomegaly present PALPATION: Yes Soft to palpation and Yes No hepatosplenomegaly present Extremity: COMMON NORMALS: no pedal edema Neuro: COMMON NORMALS: patient oriented x3 Psych: COMMON NORMALS: mental status grossly normal Data : 08/20/21 04:20 08/20/21 04:20 Micro: Microbiology 08/19/21 13:53 Gram Stain - Final Sputum - Expectorated Sputum Sputum Culture - Preliminary 08/19/21 13:41 Legionella Urinary Antigen - Final Urine,Clean Catch Bacterial Antigens - Final 08/19/21 11:48 Blood Culture - Preliminary Blood SPECIMEN COLLECTED 08/19/21 11:32 Blood Culture - Preliminary Blood SPECIMEN COLLECTED A&P Assessment and plan (1) Community acquired pneumonia: Status: Acute (2) History of coronary artery bypass graft: Status: Acute (3) Chronic anticoagulation: Status: Chronic (4) Chronic respiratory failure with hypoxia: Status: Chronic (5) Heart failure with preserved ejection fraction: Status: Chronic Qualifiers: Heart failure chronicity: chronic Qualified Code(s): I50.32 - Chronic diastolic (congestive) heart failure (6) Coronary artery disease: Status: Chronic Qualifiers: Coronary Disease-Associated Artery/Lesion type: bypass graft [place] vs. transplanted heart: [place] heart Associated angina: without angina Qualified Code(s): I25.810 - Atherosclerosis of coronary artery bypass graft(s) without angina pectoris (7) Hypertension: Status: Chronic Qualifiers: Hypertension type: unspecified secondary hypertension Qualified Code(s): I15.9 - Secondary hypertension, unspecified (8) Atrial fibrillation: Status: Chronic Qualifiers: Atrial fibrillation type: paroxysmal Qualified Code(s): I48.0 - Paroxysmal atrial fibrillation (9) GERD (gastroesophageal reflux disease): Status: Chronic Qualifiers: Esophagitis presence: without esophagitis Qualified Code(s): K21.9 - Gastro-esophageal reflux disease without esophagitis (10) Hypothyroidism: Status: Chronic Qualifiers: Hypothyroidism type: acquired Qualified Code(s): E03.9 - Hypothyroidism, unspecified (11) Hyperlipidemia: Status: Chronic Qualifiers: Hyperlipidemia type: mixed hyperlipidemia Qualified Code(s): E78.2 - Mixed hyperlipidemia (12) COPD (chronic obstructive pulmonary disease): Status: Chronic (13) COPD exacerbation: Status: Acute Plan Community-acquired pneumonia, right lower lobe pneumonia Sputum cultures, blood cultures, urine bacterial antigens CT of the chest ordered Rocephin, azithromycin Ipratropium, budesonide Oxygen therapy Coronavirus 229 E PCR positive, continue to monitor, isolation precautions COPD exacerbation Antibiotics as above Solu-Medrol 40 every 8 hours Diastolic CHF exacerbation, evidence of fluid, elevated BNP -Hold Lasix for today Atrial fibrillation, continue Eliquis, Toprol, digoxin CABG, as above Hypertension, as above Hypothyroidism, continue home medications Eliquis for DVT prophylaxis Full code Attestations Medical Necessity Statement*: Patient requires hospitalization for pneumonia 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 of Care Code Acute Physical Therapist Assistant for [facility] Mariel[place] Diagnoses Community acquired pneumonia J18.9 History of coronary artery bypass graft Z95.1 Chronic anticoagulation Z79.01 Chronic respiratory failure with hypoxia J96.11 Heart failure with preserved ejection fraction I50.32 Heart failure chronicity: chronic Coronary artery disease I25.810 Coronary Disease-Associated Artery/Lesion type: bypass graft [place] vs. transplanted heart: [place] heart Associated angina: without angina Hypertension I15.9 Hypertension type: unspecified secondary hypertension Atrial fibrillation I48.0 Atrial fibrillation type: paroxysmal GERD (gastroesophageal reflux disease) K21.9 Esophagitis presence: without esophagitis Hypothyroidism E03.9 Hypothyroidism type: acquired Hyperlipidemia E78.2 Hyperlipidemia type: mixed hyperlipidemia COPD (chronic obstructive pulmonary disease) J44.9 COPD exacerbation J44.1
[2021-08-20] MEDS: cefTRIAXone 1,000 MG in sodium chloride 0.9% (plus) 50 ML 100 MG IV (12:04)
[2021-08-20] MEDS: azithromycin 500 MG in sodium chloride 0.9% 250 ML 250 MG IV (12:35)
[2021-08-20] MEDS: atorvastatin 40 mg Tablet 20 MG PO (20:53)
[2021-08-21] VITALS (18 sets, daily range): BP systolic 145–161; BP diastolic 67–91; PULSE 69–81; RESP 14–18; TEMP 36.4–36.9; O2SAT 90–98
[2021-08-21 05:41] LABS: Basophils % 0.1 %; Hematocrit 46.7 % (42.0-52.0); Hemoglobin 15.2 g/dL (11.7-16.6); Lymphocytes # 0.6 10^3/uL (0.8-4.8); Lymphocytes % 5.8 %; Mean Corpuscular HGB Conc 32.5 g/dL (30.0-36.0); Mean Corpuscular Hemoglobin 27.9 pg (28.0-34.0); Mean Corpuscular Volume 85.7 fl (80-94); Mean Platelet Volume 10.1 fL (7.4-10.4); Monocytes # 0.3 10^3/uL (0.2-0.9); Monocytes % 2.8 %; Neutrophils # 9.31 10^3/uL (1.8-7.7); Neutrophils % 90.7 %; Nucleated Red Blood Cells % 0 %; Platelet Count 169 10^3/cmm (130-400); Red Blood Count 5.45 10^6/uL (4.1-5.3); Red Cell Distribution Width 16.1 % (12.1-15.1); White Blood Count 10.3 10^3/uL (4.0-10.0)
[2021-08-21 06:08] LABS: Alanine Aminotransferase 18 U/L (0-41); Albumin Level 3.6 g/dL (3.5-5.2); Alkaline Phosphatase 61 IU/L (40-130); Blood Urea Nitrogen 29 mg/dL (8-23); Calcium 9.1 mg/dL (8.5-10.5); Carbon Dioxide 25 mmol/L (22-29); Chloride 99 mmol/L (98-107); Globulin 3.3 g/dL (1.3-4.6); Glomerular Filtration Rate 84.4 mL/min (90-130); Glucose 168 mg/dL (65-115); Magnesium 2.5 mg/dL (1.7-2.3); NT Pro B Type Natriuretic Pept 1325 pg/mL (0-125); Osmolality Calculated 282 mOsm/kg (285-295); Phosphorus 2.5 mg/dL (2.5-4.5); Sodium 131 mmol/L (136-145); Total Bilirubin 0.5 mg/dL (0.15-1.2); Total Protein 6.9 g/dL (6.6-8.7)
[2021-08-21 06:12] LABS: Anion Gap 11.9 (5-19); Potassium 4.9 mmol/L (3.5-5.1)
[2021-08-21 06:13] LABS: Aspartate Amino Transferase 18 U/L (0-40)
[2021-08-21] MEDS: metoprolol tartrate 50 mg Tablet 75 MG PO ×2 (07:44→18:44)
[2021-08-21] MEDS: ipratropium-albuterol 3 mL Neb INHALATION ×3 (07:45→20:37)
[2021-08-21] MEDS: budesonide 0.5 mg/2 mL Neb INHALATION ×2 (07:45→20:37)
[2021-08-21] MEDS: levothyroxine 100 mcg Tablet PO (07:45)
[2021-08-21] MEDS: apixaban 5 mg Tablet PO ×2 (07:46→18:44)
[2021-08-21] MEDS: aspirin 325 mg Tablet PO (07:46)
[2021-08-21] MEDS: pantoprazole DR 40 mg Tablet PO (07:46)
[2021-08-21] MEDS: potassium chloride ER 10 mEq Tablet PO (07:46)
[2021-08-21] MEDS: digoxin 250 mcg Tablet PO (07:49)
[2021-08-21 12:17] LABS: Procalcitonin 2.09 ng/mL (0-0.5)
[2021-08-21] MEDS: azithromycin 500 MG in sodium chloride 0.9% 250 ML 250 MG IV (12:30)
[2021-08-21] MEDS: cefTRIAXone 1,000 MG in sodium chloride 0.9% (plus) 50 ML 100 MG IV (12:59)
--- NOTE | 2021-08-21 14:08 | PM.PN ---
Subjective Subjective: Hospital course, labs appreciated. Examination patient lying comfortably in bed. Denies any nausea, vomiting, headache. On examination states feeling better. Currently on 2 L saturating 94%. Vitals/I&O/Wt Last Vital Signs Temp 98.4 F 08/21/21 04:00 Pulse 73 08/21/21 11:08 Resp 18 08/21/21 11:00 BP 145/76 08/21/21 07:53 Pulse Ox 94 08/21/21 11:00 08/20/21 08/21/21 08/21/21 22:59 06:59 14:59 Intake Total 780 / 1380 Output Total 250 / 700 Balance 780 / 930 -250 / 680 Physical Exam Const: COMMON NORMALS: no acute distress and patient oriented x3 Resp: COMMON NORMALS: normal respiratory effort, No retractions and No use of accessory muscles AUSCULTATION: wheezes Cardio: COMMON NORMALS: regular rate, regular rhythm, S1 normal heart sound present and S2 normal heart sound present RATE: regular rate RHYTHM: regular rhythm HEART SOUNDS: S1 normal heart sound present and S2 normal heart sound present GI: COMMON NORMALS: Normal to inspection, nondistended, normoactive bowel sounds present, Soft to palpation, non-tender and No hepatosplenomegaly present PALPATION: Yes Soft to palpation and Yes No hepatosplenomegaly present Extremity: COMMON NORMALS: no pedal edema Neuro: COMMON NORMALS: patient oriented x3 Psych: COMMON NORMALS: mental status grossly normal Data : 08/21/21 05:15 08/21/21 05:15 Micro: Microbiology 08/19/21 13:53 Gram Stain - Final Sputum - Expectorated Sputum Sputum Culture - Preliminary 08/19/21 11:48 Blood Culture - Preliminary Blood NEGATIVE TO DATE 08/19/21 11:32 Blood Culture - Preliminary Blood NEGATIVE TO DATE A&P Assessment and plan (1) COPD exacerbation: Status: Acute (2) Chronic respiratory failure with hypoxia: Status: Chronic (3) Community acquired pneumonia: Status: Acute (4) History of coronary artery bypass graft: Status: Acute (5) Atrial fibrillation: Status: Chronic Qualifiers: Atrial fibrillation type: paroxysmal Qualified Code(s): I48.0 - Paroxysmal atrial fibrillation (6) Chronic anticoagulation: Status: Chronic (7) Heart failure with preserved ejection fraction: Status: Chronic Qualifiers: Heart failure chronicity: chronic Qualified Code(s): I50.32 - Chronic diastolic (congestive) heart failure (8) Hypertension: Status: Chronic Qualifiers: Hypertension type: unspecified secondary hypertension Qualified Code(s): I15.9 - Secondary hypertension, unspecified (9) GERD (gastroesophageal reflux disease): Status: Chronic Qualifiers: Esophagitis presence: without esophagitis Qualified Code(s): K21.9 - Gastro-esophageal reflux disease without esophagitis (10) Hypothyroidism: Status: Chronic Qualifiers: Hypothyroidism type: acquired Qualified Code(s): E03.9 - Hypothyroidism, unspecified (11) Hyperlipidemia: Status: Chronic Qualifiers: Hyperlipidemia type: mixed hyperlipidemia Qualified Code(s): E78.2 - Mixed hyperlipidemia (12) Other coronavirus as the cause of diseases classified elsewhere: Status: Acute Plan Acute on chronic hypoxia: Most likely secondary to COPD exacerbation secondary to coronavirus infection other than COVID-19. Community-acquired pneumonia, right lower lobe pneumonia Sputum culture, urine culture no bacterial cultures so far negative. For now continue with azithromycin and ceftriaxone. DuoNebs every 6 hour, budesonide twice daily. Add Mucomyst every 8 hours. Aggressive chest PT with flutter valve. Mucous plugging: Chest PT as above. Wean down Solu-Medrol to 40 mg every 12 hourly. History of diastolic congestive heart failure: Euvolemic. No acute exacerbation. Hold off on any IV fluids or diuresis for now. Atrial fibrillation, continue Eliquis, Toprol, digoxin CABG, as above Hypertension, as above Hypothyroidism, continue home medications Eliquis will suffice for DVT prophylaxis Full code Cardiac diet. Protonix for PUD prophylaxis Attestations Medical Necessity Statement*: Requires further hospitalization for management of acute on chronic hypoxia secondary to COPD exacerbation in setting of coronavirus infection other than COVID-19 Time Spent in Patient Care: Greater than 35 minutes 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 of Care Code Acute [employer] [facility] Fwd Diagnoses Community acquired pneumonia J18.9 History of coronary artery bypass graft Z95.1 Chronic anticoagulation Z79.01 Chronic respiratory failure with hypoxia J96.11 Heart failure with preserved ejection fraction I50.32 Heart failure chronicity: chronic Hypertension I15.9 Hypertension type: unspecified secondary hypertension Atrial fibrillation I48.0 Atrial fibrillation type: paroxysmal GERD (gastroesophageal reflux disease) K21.9 Esophagitis presence: without esophagitis Hypothyroidism E03.9 Hypothyroidism type: acquired Hyperlipidemia E78.2 Hyperlipidemia type: mixed hyperlipidemia COPD exacerbation J44.1 Other coronavirus as the cause of diseases classified elsewhere B97.29
[2021-08-21 20:36] LABS: Glucose Point of Care 185 mg/dL (70-110)
[2021-08-21] MEDS: acetylcysteine 200 mg/mL SDV 4 mL 100 MG INHALATION (20:38)
[2021-08-21] MEDS: atorvastatin 40 mg Tablet 20 MG PO (21:27)
[2021-08-22] VITALS (11 sets, daily range): BP systolic 138–172; BP diastolic 76–86; PULSE 58–91; RESP 16–18; TEMP 36.4–36.7; O2SAT 92–96
[2021-08-22 05:40] LABS: Hematocrit 47.5 % (42.0-52.0); Hemoglobin 14.8 g/dL (11.7-16.6); Lymphocytes # 0.8 10^3/uL (0.8-4.8); Lymphocytes % 7.9 %; Mean Corpuscular HGB Conc 31.2 g/dL (30.0-36.0); Mean Corpuscular Hemoglobin 27.2 pg (28.0-34.0); Mean Corpuscular Volume 87.2 fl (80-94); Mean Platelet Volume 9.9 fL (7.4-10.4); Monocytes # 0.3 10^3/uL (0.2-0.9); Monocytes % 3.4 %; Neutrophils # 8.89 10^3/uL (1.8-7.7); Neutrophils % 88.4 %; Nucleated Red Blood Cells % 0 %; Platelet Count 174 10^3/cmm (130-400); Red Blood Count 5.45 10^6/uL (4.1-5.3); Red Cell Distribution Width 15.9 % (12.1-15.1); White Blood Count 10.1 10^3/uL (4.0-10.0)
[2021-08-22 05:57] LABS: Alanine Aminotransferase 33 U/L (0-41); Albumin Level 3.5 g/dL (3.5-5.2); Alkaline Phosphatase 58 IU/L (40-130); Anion Gap 13.6 (5-19); Aspartate Amino Transferase 18 U/L (0-40); Blood Urea Nitrogen 26 mg/dL (8-23); Calcium 8.8 mg/dL (8.5-10.5); Carbon Dioxide 24 mmol/L (22-29); Chloride 103 mmol/L (98-107); Globulin 2.8 g/dL (1.3-4.6); Glomerular Filtration Rate 96.4 mL/min (90-130); Glucose 162 mg/dL (65-115); Magnesium 2.3 mg/dL (1.7-2.3); Osmolality Calculated 290 mOsm/kg (285-295); Phosphorus 3.7 mg/dL (2.5-4.5); Potassium 4.6 mmol/L (3.5-5.1); Sodium 136 mmol/L (136-145); Total Bilirubin 0.5 mg/dL (0.15-1.2); Total Protein 6.3 g/dL (6.6-8.7)
[2021-08-22] MEDS: budesonide 0.5 mg/2 mL Neb INHALATION (08:27)
[2021-08-22] MEDS: metoprolol tartrate 50 mg Tablet 75 MG PO (08:27)
[2021-08-22] MEDS: ipratropium-albuterol 3 mL Neb INHALATION ×2 (08:27→11:45)
[2021-08-22] MEDS: levothyroxine 100 mcg Tablet PO (08:28)
[2021-08-22] MEDS: pantoprazole DR 40 mg Tablet PO (08:28)
[2021-08-22] MEDS: aspirin 325 mg Tablet PO (08:28)
[2021-08-22] MEDS: potassium chloride ER 10 mEq Tablet PO (08:28)
[2021-08-22] MEDS: apixaban 5 mg Tablet PO (08:28)
[2021-08-22] MEDS: digoxin 250 mcg Tablet PO (08:28)
[2021-08-22] MEDS: amlodipine 10 mg Tablet PO (10:37)
--- NOTE | 2021-08-22 10:52 | PC.SOCIAL ---
IMM Update Pg. 2 of IMM updated and reviewed with patient, who verbalized understanding. Copy provided.
--- NOTE | 2021-08-22 10:54 | PC.SOCIAL ---
IMM Update Pg. 2 of IMM updated and reviewed with patient, who verbalized understanding. Copy provided.
[2021-08-22 11:15] LABS: Glucose Point of Care 178 mg/dL (70-110)
--- NOTE | 2021-08-22 11:16 | PM.DCS ---
Discharge Providers Date of Admission: 08/19/21 11:27 Date of Discharge: August 22, 2021 Attending Provider at Admission: Segundo Trinh MD Attending Provider at Discharge: Fran Wyatt MD Primary Care Provider: PATO Hernandez Diagnoses at Discharge Discharge Diagnosis (1) COPD exacerbation: Status: Acute (2) Chronic respiratory failure with hypoxia: Status: Chronic (3) Community acquired pneumonia: Status: Acute (4) History of coronary artery bypass graft: Status: Acute Permanent problem details: [address] [place] [address] (5) Atrial fibrillation: Status: Chronic Qualifiers: Atrial fibrillation type: paroxysmal Qualified Code(s): I48.0 - Paroxysmal atrial fibrillation (6) Chronic anticoagulation: Status: Chronic Permanent problem details: eliquis, for afib (7) Heart failure with preserved ejection fraction: Status: Chronic Qualifiers: Heart failure chronicity: chronic Qualified Code(s): I50.32 - Chronic diastolic (congestive) heart failure (8) Hypertension: Status: Chronic Qualifiers: Hypertension type: unspecified secondary hypertension Qualified Code(s): I15.9 - Secondary hypertension, unspecified (9) GERD (gastroesophageal reflux disease): Status: Chronic Qualifiers: Esophagitis presence: without esophagitis Qualified Code(s): K21.9 - Gastro-esophageal reflux disease without esophagitis (10) Hypothyroidism: Status: Chronic Qualifiers: Hypothyroidism type: acquired Qualified Code(s): E03.9 - Hypothyroidism, unspecified (11) Hyperlipidemia: Status: Chronic Qualifiers: Hyperlipidemia type: mixed hyperlipidemia Qualified Code(s): E78.2 - Mixed hyperlipidemia (12) Other coronavirus as the cause of diseases classified elsewhere: Status: Acute Reason for Visit Reason for Visit: SOB Brief History: History as per HPI: Gabino Jones is a 65 year old male with a past medical history of gold D stage COPD, history of smoking in the past, history of diastolic CHF, history of atrial fibrillation, on Eliquis, who presents to [facility] due to worsening shortness of breath.? Patient tells me that he only uses oxygen during the night, he stopped smoking 2018, recently has been experiencing increased shortness of breath, increased shortness of breath with exertion, no fevers, has having a productive cough, yellow sputum, no nausea, no vomiting, no chest pain, has been vaccinated for COVID, has received flu vaccine, no sick contacts. Hospital Course Hospital Course Patient was admitted to the hospital for further evaluation and management of acute on chronic hypoxia secondary to community-acquired pneumonia. He was started on broad-spectrum antibiotics on admission along with inhalation treatment. He was found to be positive for coronavirus other than COVID-19. It is believed his symptoms are most likely secondary to COPD exacerbation from viral bronchitis leading to lower respiratory tract infection. During hospitalization his blood cultures remain negative. Sputum culture came back positive for Streptococcus pneumoniae. He responded well to the treatment and has been on his baseline oxygen supplementation for last 48 hours. His steroid treatment has been gradually weaned down. During hospitalization he was found to have mildly elevated blood pressures for which his antihypertensives were adjusted. He has been discharged in hemodynamically stable condition on oral antibiotics for next 5 days, steroid taper within next 5 days along with inhalation treatment and advised to follow-up with his primary care provider within next 1 week. Physical Exam Const: COMMON NORMALS: no acute distress and patient oriented x3 Resp: COMMON NORMALS: normal respiratory effort, No retractions and No use of accessory muscles AUSCULTATION: wheezes Cardio: COMMON NORMALS: regular rate, regular rhythm, S1 normal heart sound present and S2 normal heart sound present RATE: regular rate RHYTHM: regular rhythm HEART SOUNDS: S1 normal heart sound present and S2 normal heart sound present GI: COMMON NORMALS: Normal to inspection, nondistended, normoactive bowel sounds present, Soft to palpation, non-tender and No hepatosplenomegaly present PALPATION: Yes Soft to palpation and Yes No hepatosplenomegaly present Extremity: COMMON NORMALS: no pedal edema Neuro: COMMON NORMALS: patient oriented x3 Psych: COMMON NORMALS: mental status grossly normal Discharge Data Studies Completed and Pending Completed Studies During Hospitalization Category Date Time Status CT chest wo con [id number] Stat Cat Scan 08/20/21 09:44 Completed XR chest 1V portable [id number] Urgent Exams 08/19/21 09:58 Completed Pending at discharge Category Date Time Status Blood Culture Stat Lab 08/19/21 11:48 Results Radiology Impressions Chest X-Ray 08/19/21 09:58 IMPRESSION: 1. New right lower lobe pneumonia. 2. Status post sternotomy. Chest CT 08/20/21 09:44 IMPRESSION: 1. Severe centrilobular emphysematous changes of the lungs. New multifocal lobulated opacities noted within both lungs bases, right greater than left. This most resembles mucous plugging or bronchopneumonia. 2. In addition, there is progressed subpleural cyst formation at the lung bases resembling honeycombing and UIP interstitial lung disease. 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 Preliminary micro results at discharge Microbiology 08/19/21 13:53 Sputum - Expectorated Sputum Gram Stain - Final 08/19/21 13:53 Sputum - Expectorated Sputum Sputum Culture - Final Streptococcus pneumoniae 08/19/21 11:48 Blood Blood Culture - Preliminary NEGATIVE TO DATE 08/19/21 11:32 Blood Blood Culture - Preliminary NEGATIVE TO DATE 08/19/21 13:41 Urine,Clean Catch Legionella Urinary Antigen - Final 08/19/21 13:41 Urine,Clean Catch Bacterial Antigens - Final Laboratory Results WBC 10.1 10^3/uL (4.0-10.0) H 08/22/21 05:30 RBC 5.45 10^6/uL (4.1-5.3) H 08/22/21 05:30 Hgb 14.8 g/dL (11.7-16.6) 08/22/21 05:30 Hct 47.5 % (42.0-52.0) 08/22/21 05:30 MCV 87.2 fl (80-94) 08/22/21 05:30 MCH 27.2 pg (28.0-34.0) L 08/22/21 05:30 MCHC 31.2 g/dL (30.0-36.0) 08/22/21 05:30 RDW 15.9 % (12.1-15.1) H 08/22/21 05:30 Plt Count 174 10^3/cmm (130-400) 08/22/21 05:30 MPV 9.9 fL (7.4-10.4) 08/22/21 05:30 Neut % (Auto) 88.4 % 08/22/21 05:30 Lymph % (Auto) 7.9 % 08/22/21 05:30 [place] % (Auto) 3.4 % 08/22/21 05:30 Eos % (Auto) 0.0 % 08/22/21 05:30 Baso % (Auto) 0.0 % 08/22/21 05:30 Neut # (Auto) 8.89 10^3/uL (1.8-7.7) H 08/22/21 05:30 Lymph # (Auto) 0.8 10^3/uL (0.8-4.8) 08/22/21 05:30 [place] # (Auto) 0.3 10^3/uL (0.2-0.9) 08/22/21 05:30 Eos # (Auto) 0.0 10^3/uL (0.0-0.8) 08/22/21 05:30 Baso # (Auto) 0.0 10^3/uL (0.0-0.1) 08/22/21 05:30 Nucleated RBC % (auto) 0 % 08/22/21 05:30 Nucleated RBCs # 0.0 /100WBC 08/22/21 05:30 Specimen Type Arterial 08/19/21 10:12 Sample Site Brachial, right 08/19/21 10:12 ABG pH 7.45 (7.35-7.45) 08/19/21 10:12 ABG pCO2 35.6 mmHg (35-45) 08/19/21 10:12 ABG pO2 61.9 mmHg (80.0-100.0) L 08/19/21 10:12 ABG HCO3 24.7 mmol/L (22-26) 08/19/21 10:12 ABG Base Excess 1.1 mmol/L (-2.0-2.0) 08/19/21 10:12 Derek Test Pos 08/19/21 10:12 Hematocrit 49.9 % (42-52) 08/19/21 10:12 Hgb O2 Saturation 90.7 % (95-100) L 08/19/21 10:12 Carboxyhemoglobin 1.1 %THgb (0.4-20.1) 08/19/21 10:12 Methemoglobin 0.3 % (0.4-1.5) L 08/19/21 10:12 Total Hemoglobin 16.3 g/dL (14-18) 08/19/21 10:12 O2 Delivery Device Nc 08/19/21 10:12 O2 Liters/Min 4.0 % 08/19/21 10:12 FiO2 36.0 % 08/19/21 10:12 Blacksmith Assistant ID [place] 08/19/21 10:12 Sodium 136 mmol/L (136-145) 08/22/21 05:30 Potassium 4.6 mmol/L (3.5-5.1) 08/22/21 05:30 Chloride 103 mmol/L (98-107) 08/22/21 05:30 Carbon Dioxide 24 mmol/L (22-29) 08/22/21 05:30 Anion Gap 13.6 (5-19) 08/22/21 05:30 BUN 26 mg/dL (8-23) H 08/22/21 05:30 Creatinine 0.8 mg/dL (0.7-1.2) 08/22/21 05:30 GFR Calculation 96.4 mL/min (90-130) 08/22/21 05:30 Glucose 162 mg/dL (65-115) H 08/22/21 05:30 POC Glucose 178 mg/dL (70-110) H 08/22/21 10:47 Estimat Average Glucose 120 08/19/21 10:03 Hemoglobin A1c 5.8 % (4.0-6.0) 08/19/21 10:03 Calculated Osmolality 290 mOsm/kg (285-295) 08/22/21 05:30 Lactic Acid 1.8 mmol/L (0.5-2.2) 08/19/21 10:03 Calcium 8.8 mg/dL (8.5-10.5) 08/22/21 05:30 Phosphorus 3.7 mg/dL (2.5-4.5) 08/22/21 05:30 Magnesium 2.3 mg/dL (1.7-2.3) 08/22/21 05:30 Total Bilirubin 0.5 mg/dL (0.15-1.2) 08/22/21 05:30 AST 18 U/L (0-40) 08/22/21 05:30 ALT 33 U/L (0-41) 08/22/21 05:30 Alkaline Phosphatase 58 IU/L (40-130) 08/22/21 05:30 NT-Pro-B Natriuret Pep 1325 pg/mL (0-125) H 08/21/21 05:15 NT-Pro-B Natriuret Pep Cancelled 08/21/21 05:15 Total Protein 6.3 g/dL (6.6-8.7) L 08/22/21 05:30 Albumin 3.5 g/dL (3.5-5.2) 08/22/21 05:30 Globulin 2.8 g/dL (1.3-4.6) 08/22/21 05:30 Procalcitonin 2.09 ng/mL (0-0.5) H 08/21/21 05:15 TSH 1.38 uIU/mL (0.27-4.20) 08/19/21 10:03 Coronavirus 229E (PCR) Detected (NOT DETECT) A 08/19/21 11:48 SARS-CoV-2 (PCR) Not detected (NOT DETECT) 08/19/21 11:48 Vitals Last Vital Signs Temp 97.8 F 08/22/21 07:17 Pulse 86 08/22/21 08:36 Resp 18 08/22/21 08:36 BP 172/86 08/22/21 07:17 Pulse Ox 96 08/22/21 08:36 Discharge Plan Discharge Patient Disposition: Home Condition: Stable Prescriptions: New amlodipine 10 mg Tablet 10 mg PO DAILY 30 Days Qty: 30 0RF prednisone 10 mg tablet See Taper mg PO DAILY Qty: 20 0RF Taper: predniSONE 60-10 40 mg Daily for 2 Days and 0 Hour 30 mg Daily for 2 Days and 0 Hour 20 mg Daily for 2 Days and 0 Hour 10 mg Daily for 2 Days and 0 Hour Augmentin 875-125 mg tablet 1 tab PO BID Qty: 10 0RF levofloxacin 500 mg tablet 500 mg PO Q24H 3 Days Qty: 3 0RF Lasix 20 mg tablet 20 mg PO DAILY Qty: 30 0RF aspirin [Adult Aspirin Regimen] 81 mg tablet,delayed release (DR/EC) 81 mg PO DAILY Qty: 30 0RF Continued Spiriva Respimat 2.5 mcg/actuation mist 2 inh INHALATION QAM 0RF budesonide-formoterol [Symbicort] 160-4.5 mcg/actuation Hfa Aerosol Inhaler 2 puff INHALATION BID 0RF ipratropium-albuterol 0.5 mg-3 mg(2.5 mg base)/3 mL Solution For Nebulization 3 ml INHALATION Q6H PRN (Reason: Shortness Of Breath) 0RF albuterol sulfate 90 mcg/actuation Hfa Aerosol Inhaler 2 puff INHALATION Q6H PRN (Reason: Shortness Of Breath) 0RF atorvastatin 20 mg tablet 10 mg PO BEDTIME 0RF Eliquis 5 mg Tablet 5 mg PO BID Qty: 60 0RF Hold Instructions: Resume on 06/28/21. omeprazole 20 mg capsule,delayed release(DR/EC) 40 mg PO DAILY 0RF digoxin 250 mcg (0.25 mg) Tablet 250 mcg PO DAILY Qty: 30 0RF levothyroxine [Levoxyl] 100 mcg Tablet 100 mcg PO DAILY Qty: 30 0RF metoprolol tartrate 50 mg Tablet 75 mg PO BID Qty: 90 0RF docusate sodium [Stool Softener] 100 mg capsule 100 mg PO DAILY PRN (Reason: Constipation) 0RF nitroglycerin [Nitrostat] 0.4 mg Tablet, Sublingual 0.4 mg SUBLINGUAL Q5M PRN (Reason: Chest Pain) 0RF Rx Instructions: FOR 3 DOSES potassium chloride 20 mEq Tablet Extended Release 10 meq PO DAILY 0RF furosemide [Lasix] 40 mg tablet 40 mg PO QAM 0RF Discontinued aspirin 325 mg tablet 325 mg PO DAILY 0RF Hold Instructions: Resume on 06/27/21. Discharge Orders: Discharge Order (Routine); Ordered 08/22/21 Ordered By: Fran Wyatt Referrals: Isela Gipson FNP [Primary Care Provider] - 7-10 days Discharge Diet: Cardiac Discharge Activity: Resume usual activity and Increase activity as tolerated Patient Instructions: Opioid Safety Activity Restrictions/Additional Instructions: Aspirin 325 mg has been stopped and changed to 81 mg daily. Amlodipine 10 mg has been added for blood pressure coverage. Please take Augmentin and Levaquin which are the antibiotics for next 5 days. Take Augmentin twice daily and Levaquin once daily. Take prednisone as directed for taper. Lasix 20 mg has been added to your medication list. Please take daily in the morning. Please follow-up with a primary care provider within next 1 week for repeat BMP. Discharge Attestations Time Spent in Discharge Care*: greater than 30 min Specific Discharge Activities: educating patient, discussing with housing case manager/social workers/dc planners, documenting/other paperwork and evaluating patient/reviewing data Time Spent in Smoking Cessation: more than 10 minutes Status at Discharge: Cognitive status at discharge: cognitively intact, Behavioral status at discharge: cooperative, Functional status at discharge: independent ambulation, Overall status at discharge: patient is progressing back to baseline Quality Metrics Clinical Quality Measures [ No reported AMI, CVA or VTE this stay] 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 of Care Code Acute [facility] [place] note Diagnoses COPD exacerbation J44.1 Chronic respiratory failure with hypoxia J96.11 Community acquired pneumonia J18.9 History of coronary artery bypass graft Z95.1 Atrial fibrillation I48.0 Atrial fibrillation type: paroxysmal Chronic anticoagulation Z79.01 Heart failure with preserved ejection fraction I50.32 Heart failure chronicity: chronic Hypertension I15.9 Hypertension type: unspecified secondary hypertension GERD (gastroesophageal reflux disease) K21.9 Esophagitis presence: without esophagitis Hypothyroidism E03.9 Hypothyroidism type: acquired Hyperlipidemia E78.2 Hyperlipidemia type: mixed hyperlipidemia Other coronavirus as the cause of diseases classified elsewhere B97.29
[2021-08-22] MEDS: acetylcysteine 200 mg/mL SDV 4 mL 100 MG INHALATION (11:45)
--- NOTE | 2021-08-22 13:15 | PC.NURSE ---
THIS NURSE CANCELLED PATIENT'S DISCHARGE MEDICATIONS SENT TO [facility] AND CALLED INTO [facility].
--- NOTE | 2021-08-22 13:57 | PC.NURSE ---
Discharge teaching and education given to patient, all questions were answered at this time. IV discontinued. Belongings accounted for. Vitals stable. Patient brought home O2. Medications sent to [facility] pharmacy.
== END 2021-08-22 13:59 | disposition home or self-care (01) | DRG 193 ==
LOC: ER 11:35 → MEDSURG 12:38
PROVIDERS: Admitting Provider Family Medicine; Emergency Provider Emergency Medicine; PCP Nurse Practitioner; Visit Provider Student in an Organized Health Care Education/Training Program
DX: J13 Pneumonia due to Streptococcus pneumoniae (principal); J96.21 Acute and chronic respiratory failure with hypoxia; J44.0 Chronic obstructive pulmonary disease with (acute) lower respiratory infection; I50.32 Chronic diastolic (congestive) heart failure; J44.1 Chronic obstructive pulmonary disease with (acute) exacerbation; J20.8 Acute bronchitis due to other specified organisms; B97.29 Other coronavirus as the cause of diseases classified elsewhere; I25.10 Atherosclerotic heart disease of native coronary artery without angina pectoris; Z95.5 Presence of coronary angioplasty implant and graft; Z87.891 Personal history of nicotine dependence; I11.0 Hypertensive heart disease with heart failure; I48.0 Paroxysmal atrial fibrillation; Z99.81 Dependence on supplemental oxygen; K21.9 Gastro-esophageal reflux disease without esophagitis; E03.9 Hypothyroidism, unspecified; E78.2 Mixed hyperlipidemia; Z79.51 Long term (current) use of inhaled steroids; Z79.01 Long term (current) use of anticoagulants
CPT/HCPCS: 36415; 36416; 36600; 71045; 71250; 80053; 82805; 82962; 83036; 83605; 83735; 83880; 84100; 84145; 84443; 85025; 86403; 87040; 87070; 87077; 87205; 87449; 87635; 94640; 94664; 96365; 96367; 96375; 99285; J0456; J0696; J1940; J2920; J2930; J7050; J7608; J7626

== ENCOUNTER 2021-08-29 08:07 | Outpatient (CLI) | payer OTHER, SELFPAY | END 2021-08-29 08:08 | disposition home or self-care (01) | LOC: LAB 08:11 | PROVIDERS: PCP Nurse Practitioner; Visit Provider Urology | DX: R97.20 Elevated prostate specific antigen [PSA] (principal) | CPT/HCPCS: 81003; 84153 ==

== ENCOUNTER → 2021-09-28 14:02 | Outpatient (BNVA) | payer OTHER, SELFPAY | PROVIDERS: PCP Nurse Practitioner; Visit Provider Urology | DX: R97.20 Elevated prostate specific antigen [PSA] (principal) | CPT/HCPCS: 88305 ==

== ENCOUNTER 2021-10-12 07:25 | Outpatient (CLI) | payer OTHER, SELFPAY ==
[2021-10-12] MEDS: iohexol 300 mg/mL 100 mL Btl IV (09:21)
[2021-10-12 09:23] LABS: Blood Urea Nitrogen 20 mg/dL (8-23); Glomerular Filtration Rate 55.1 mL/min (90-130)
--- NOTE | 2021-10-12 09:30 | CT_ITS ---
WS: [id number] CT ABDOMEN AND PELVIS WITH AND WITHOUT CONTRAST HISTORY: PROSTATE CANCER TECHNIQUE: Unenhanced 5 mm axial imaging first performed through the abdomen. Post contrast imaging t hrough the abdomen and pelvis. Oral contrast has not been provided. Sagittal and coronal reformats a re submitted. All CT scans at [facility] use at least one of these dose optimization techniqu es: automated exposure control; mA and/or kV adjustment per patient size (includes targeted exams whe re dose is matched to clinical indication); or iterative reconstruction. CONTRAST: Omnipaque 300; 50 mL IV. DLP: 2135.29 mGy.cm COMPARISON: 03/27/2021, 01/19/2020 Severe chronic emphysematous changes at the lung bases. No mass or nodule. Large hiatal hernia. Normal size liver. Small central hepatic cyst less than a centimeter. No mass identified. No bile lynn t dilatation. Prior cholecystectomy. Normal size common bile duct. Normal pancreas. Spleen is enlarge d extending over a length of 13 cm. No adrenal mass. RIGHT kidney: No renal obstruction or calcification. Vascular calcifications in the upper pole. Sligh tly lobulated low-attenuation mass from the lower pole measures 17 x 15 mm. No enhancement or elevati on of Hounsfield units. No ureteral dilatation. LEFT kidney: Normal size kidney. No hydronephrosis. There are a few nonobstructing calcifications pre sent. Vascular calcifications are also present. No mass. No ureteral obstruction. Moderate diffuse atherosclerosis aorta. No significant aneurysmal dilatation. Mesenteric arteries are patent with atherosclerotic disease. Common iliac arteries demonstrate mild atherosclerotic disease. No adenopathy, free air or free fluid. Nondistended stomach. No small bowel obstruction. Appendix is been removed. Diffuse fecal retention. Prostate gland is mildly enlarged with central calcification. Prostate gland extends over length of 5.0 cm x 3.8 x 4.7 cm. Mild encroachment into the posterior jasiel dder. Mild degenerative disc disease and vacuum disc phenomenon at L5-S1. Bilateral femoral head osteonecro sis. No fragmentation. CT/CT abdomen pelvis wo/w [id number] IMPRESSION: 1. No renal obstruction or solid mass. 2. Nonenhancing cyst RIGHT kidney measures 17 x 15 mm. 3. Mild prostate gland enlargement with calcification with minimal encroachmen t into the bladder. 4. Bilateral femoral head osteonecrosis. 5. No free air or free fluid. 6. Prior appendectomy and cholecystectomy. 7. No osteoblastic or osteolytic bone disease.
== END 2021-10-12 07:26 | disposition home or self-care (01) ==
LOC: RAD 07:25
PROVIDERS: PCP Nurse Practitioner; Visit Provider Urology
DX: C61 Malignant neoplasm of prostate (principal); N28.1 Cyst of kidney, acquired; M87.852 Other osteonecrosis, left femur; M87.851 Other osteonecrosis, right femur
CPT/HCPCS: 74178; 82565; 84520

== ENCOUNTER 2021-10-19 09:22 | Outpatient (CLI) | payer OTHER, SELFPAY ==
--- NOTE | 2021-10-19 09:26 | NM_ITS ---
WS: [id number] NUCLEAR MEDICINE BONE SCAN Radiopharmaceutical: 24.9 Tc-99m MDP mCi IV Injection site: RIGHT antecubital Postinjection imaging delay: 1 hr CLINICAL INFORMATION: PROSTATE CANCER COMPARISON: None. FINDINGS: Bone lesions: There are no osseous lesions suspicious for metastatic disease. Soft tissue contours: Normal. Kidneys: Normal. Other findings: Degenerative type uptake RIGHT greater than LEFT AC joints and bilateral knees. Degen erative type uptake in the cervical spine. NM/NM bone scan whole body* [id number] IMPRESSION: No evidence of osseous metastatic disease.
== END 2021-10-19 09:23 | disposition home or self-care (01) ==
LOC: RAD 09:23
PROVIDERS: PCP Nurse Practitioner; Visit Provider Urology
DX: C61 Malignant neoplasm of prostate (principal)
CPT/HCPCS: 78306; A9561

== ENCOUNTER → 2021-11-03 11:52 | Outpatient (BNVA) | payer OTHER, SELFPAY | PROVIDERS: PCP Nurse Practitioner; Visit Provider Urology | DX: C61 Malignant neoplasm of prostate (principal) | CPT/HCPCS: 81003; 99214 ==

== ENCOUNTER 2021-11-23 12:34 | Oncology outpatient (recurring) (ONCR) | payer OTHER, SELFPAY | END 2021-11-30 23:59 | disposition home or self-care (01) | PROVIDERS: PCP Nurse Practitioner; Visit Provider Internal Medicine Hematology & Oncology | DX: C61 Malignant neoplasm of prostate (principal); I15.9 Secondary hypertension, unspecified; J44.9 Chronic obstructive pulmonary disease, unspecified; Z87.891 Personal history of nicotine dependence | CPT/HCPCS: 99204 ==

== ENCOUNTER → 2021-11-30 12:49 | Outpatient (BNVA) | payer OTHER, SELFPAY | PROVIDERS: PCP Nurse Practitioner; Visit Provider Internal Medicine | DX: I48.0 Paroxysmal atrial fibrillation (principal); E78.2 Mixed hyperlipidemia; Z95.1 Presence of aortocoronary bypass graft | CPT/HCPCS: 99214 ==

== ENCOUNTER 2021-12-12 08:47 | Oncology outpatient (recurring) (ONCR) | payer OTHER, SELFPAY ==
[2021-12-12] MEDS: leuprolide 22.5 mg Kit IM (09:40)
[2021-12-12 10:02] VITALS: BP 112/78; PULSE 74; RESP 18; TEMP 36.4; O2SAT 96
== END 2021-12-31 23:59 | disposition home or self-care (01) ==
PROVIDERS: PCP Nurse Practitioner; Visit Provider Internal Medicine Hematology & Oncology
DX: Z51.11 Encounter for antineoplastic chemotherapy (principal); C61 Malignant neoplasm of prostate
CPT/HCPCS: 96402; J9217

== ENCOUNTER 2022-01-09 10:06 | Emergency (ER) | payer OTHER, SELFPAY ==
[2022-01-09 10:12] VITALS: BP 153/70; PULSE 89; RESP 16; TEMP 36.4; O2SAT 94; BMI 29.4
--- NOTE | 2022-01-09 10:29 | US_ITS ---
WS: [id number] TESTICULAR ULTRASOUND HISTORY: pain/swelling COMPARISON: None available. TECHNIQUE: Real-time and color Doppler imaging or utilized to perform a testicular ultrasound. Right testicle: 4.4 cm x 2.2 cm x 2.2 cm. Normal size and echogenicity. No mass or torsion. Normal color Doppler is present throughout. Systolic and diastolic velocities are both present. Small simple hydrocele. Right epididymis: Markedly abnormal epididymis. There is increased echogenicity with scattered areas of low attenuation. Epididymis is enlarged axial slightly displaces the testicle. There is increased vascularity throughout the epididymis. Left testicle: 3.9 cm x 2.3 cm x 2.1 cm. Normal size and echogenicity. No mass or torsion. Normal color Doppler is present throughout. Systolic and diastolic velocities are both present. Small simple hydrocele. Left epididymis: Normal epididymis with no increased vascularity. US/US scrotum [id number] IMPRESSION: 1. Severe RIGHT acute epididymitis. 2. No testicular mass or torsion.
[2022-01-09 11:36] VITALS: BP 143/69; PULSE 83; RESP 14; O2SAT 93
--- NOTE | 2022-01-09 11:36 | W.ED.MALEGU ---
HPI - Male Genitourinary General: Chief complaint: Urogenital-Male Stated complaint: testicular problem Time Seen by Provider: 01/09/22 10:55 PFSH ED PFSH: Medical History Anemia Atrial fibrillation CHF (congestive heart failure) Last echocardiogram normal EF, grade 2/4 diastolic dysfunction October 2019 Chronic anticoagulation eliquis, for afib Chronic respiratory failure with hypoxia Colon polyps COPD (chronic obstructive pulmonary disease) Coronary artery disease Coronary artery disease Elevated PSA GERD (gastroesophageal reflux disease) Heart failure with preserved ejection fraction History of colon polyps Hyperlipidemia Hypertension Hypothyroidism Prostate cancer Surgical History History of colonoscopy (~04/2020) History of coronary artery bypass graft (03/2019) [address] [place] [address] History of knee surgery History of vasectomy S/P appendectomy S/P cholecystectomy Family History Father , IN HIS 50'S Lung disease tuberculosis Mother , AT AGE 63 CAD (coronary artery disease) Diabetes Hypertension Sister Cancer Denies family history of Clotting disorder Dementia Hyperlipidemia Psychiatric illness Chronic kidney disease (CKD) Suicide Anesthesia complication Bleeding disorder Stroke Social History Smoking and tobacco status: former smoker Quit status (tobacco): has quit using tobacco Year quit tobacco: 2016 - PPD x 52 Years Alcohol intake: never Counseling given: No Lives independently: Yes Household members: none Marital status: Legally Current occupational status: employed and retired History of recent travel: No Current gender identity: Male Course Vital Signs: Vital signs: Vital Signs Temperature 97.6 F 01/09/22 10:12 Pulse Rate 89 01/09/22 10:12 Respiratory Rate 16 01/09/22 10:12 Blood Pressure 153/70 01/09/22 10:12 Pulse Oximetry 94 01/09/22 10:12 Oxygen Delivery Me thod 01/09/22 10:12 MDM - Male Lab Data Radiology Impressions Scrotum Ultrasound 01/09/22 10:29 IMPRESSION: 1. Severe RIGHT acute epididymitis. 2. No testicular mass or torsion. Discharge Plan Discharge Condition: Stable Prescriptions: No Action cholecalciferol (vitamin D3) 10 mcg (400 unit) capsule 10 mcg PO DAILY Spiriva Respimat 2.5 mcg/actuation mist 2 inh INHALATION QAM bicalutamide [Casodex] 50 mg tablet 50 mg PO DAILY Qty: 30 0RF Rx Instructions: patient needs ESTEFANY, Prostate CA ipratropium-albuterol 0.5 mg-3 mg(2.5 mg base)/3 mL Solution For Nebulization 3 ml INHALATION Q6H PRN (Reason: Shortness Of Breath) albuterol sulfate 90 mcg/actuation Hfa Aerosol Inhaler 2 puff INHALATION Q6H PRN (Reason: Shortness Of Breath) atorvastatin 20 mg tablet 10 mg PO BEDTIME Eliquis 5 mg Tablet 5 mg PO BID Qty: 60 0RF Hold Instructions: Doctor's Order omeprazole 20 mg capsule,delayed release(DR/EC) 40 mg PO DAILY digoxin 250 mcg (0.25 mg) Tablet 250 mcg PO DAILY Qty: 30 0RF levothyroxine [Levoxyl] 100 mcg Tablet 100 mcg PO DAILY Qty: 30 0RF metoprolol tartrate 50 mg Tablet 75 mg PO BID Qty: 90 0RF docusate sodium [Stool Softener] 100 mg capsule 100 mg PO DAILY PRN (Reason: Constipation) nitroglycerin [Nitrostat] 0.4 mg Tablet, Sublingual 0.4 mg SUBLINGUAL Q5M PRN (Reason: Chest Pain) Rx Instructions: FOR 3 DOSES potassium chloride 20 mEq Tablet Extended Release 10 meq PO DAILY furosemide [Lasix] 40 mg tablet 40 mg PO QAM Compazine 10 mg Tablet 10 mg PO Q4H PRN (Reason: Mild Nausea) Qty: 30 3RF lorazepam 1 mg Tablet 0.5 - 1 mg PO Q6H PRN (Reason: Severe Nausea) Qty: 30 3RF prednisone 10 mg tablet See Taper PO DAILY Qty: 20 0RF Taper: predniSONE 60-10 40 mg Daily for 2 Days and 0 Hour 30 mg Daily for 2 Days and 0 Hour 20 mg Daily for 2 Days and 0 Hour 10 mg Daily for 2 Days and 0 Hour Adult Aspirin Regimen 81 mg tablet,delayed release (DR/EC) 81 mg PO DAILY Qty: 30 0RF Hold Instructions: Doctor's Order Referrals: Gipson,Isela R, OVERCOIL STEPPER [Primary Care Provider] - 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 of Care Code ED Senior Cytogenetics Laboratory Director for Kevin Arceo
--- NOTE | 2022-01-09 11:38 | ED_ITS ---
HPI - General Adult General: Chief complaint: Urogenital-Male Stated complaint: testicular problem Time Seen by Provider: 01/09/22 10:55 History of Present Illness: Patient is a 66-year-old male with history of prostate CA not currently on chemotherapy or radiation treatment presenting to emergency room with concerns of 1 week of right-sided testicular swelling. Last week, patient had 4 days of left-sided testicular swelling that is since improved. Now patient complains of right-sided testicular swelling for the last week. Patient denies any fever/chills, penile drainage, recent trauma or injury to the right testes. No other urinary pain complaints, abdominal pain, cough, runny nose, sore throat, chest pain, shortness breath, palpitation, nausea/vomiting. Onset:1 week ago Duration:1 week Location:home Severity:moderate Associated symptoms: Deny chest pain, dyspnea, nausea, rash, palpitations or vomiting Review of Systems Const: Denies: fever(s) or chills Eyes: Denies: change in vision ENMT: Denies: mouth pain Card: Denies: chest pain or palpitations Resp: Denies: dyspnea or non-productive cough GI: Denies: abdominal pain, nausea, vomiting or diarrhea : Reports: other (+R sided testicular swelling and pain); Denies: dysuria Musc: Denies: extremity pain Skin/Breast: Denies: rash or new lesions Neuro: Denies: weakness in extremities Psych: Reports: other (Normal mood) Chavez/Lymph: Denies: easy bruising PFSH ED PFSH: Medical History Anemia Atrial fibrillation CHF (congestive heart failure) Last echocardiogram normal EF, grade 2/4 diastolic dysfunction October 2019 Chronic anticoagulation eliquis, for afib Chronic respiratory failure with hypoxia Colon polyps COPD (chronic obstructive pulmonary disease) Coronary artery disease Coronary artery disease Elevated PSA GERD (gastroesophageal reflux disease) Heart failure with preserved ejection fraction History of colon polyps Hyperlipidemia Hypertension Hypothyroidism Prostate cancer Surgical History History of colonoscopy (~04/2020) History of coronary artery bypass graft (03/2019) [address] [place] [address] History of knee surgery History of vasectomy S/P appendectomy S/P cholecystectomy Family History Father , IN HIS 50'S Lung disease tuberculosis Mother , AT AGE 63 CAD (coronary artery disease) Diabetes Hypertension Sister Cancer Denies family history of Clotting disorder Dementia Hyperlipidemia Psychiatric illness Chronic kidney disease (CKD) Suicide Anesthesia complication Bleeding disorder Stroke Social History Smoking and tobacco status: former smoker Quit status (tobacco): has quit using tobacco Year quit tobacco: 2016 PPD x 52 Years Alcohol intake: never Counseling given: No Lives independently: Yes Household members: none Marital status: Legally Current occupational status: employed and retired History of recent travel: No Current gender identity: Male Physical Exam Const: COMMON NORMALS: alert HENMT: COMMON NORMALS: atraumatic HEAD & SCALP: atraumatic MOUTH: moist mucous membranes not abnormal Eye: COMMON NORMALS: EOMs intact bilaterally and conjunctivae normal CONJUNCTIVA: Yes conjunctivae normal Neck/C-Spine: COMMON NORMALS: full ROM and supple Resp: COMMON NORMALS: normal respiratory effort and clear to auscultation bilaterally AUSCULTATION: clear to auscultation bilaterally Cardio: COMMON NORMALS: regular rate RATE: regular rate GI: COMMON NORMALS: Soft to palpation and non-tender PALPATION: Yes Soft to palpation OTHER: No focal TTP. NO guarding rebound, guarding, rigidity. No CVA tenderness to percussion. Neg Arnold/Neg McBurney's point tenderness, no suprabupic tenderness to palpation. : OTHER: +Mild R external genitalia erythema, testicles non-tender b/l Extremity: COMMON NORMALS: full ROM Neuro: SENSORIUM/ORIENTATION: Yes alert MOTOR EXAM: No Abnormal motor strength present and Other motor observations present (no focal motor deficits) Psych: COMMON NORMALS: speech normal SPEECH: Yes normal speech MOOD & AFFECT: Yes euthymic mood Course Vital Signs: Vital signs: Vital Signs Temperature 97.6 F 01/09/22 10:12 Pulse Rate 83 01/09/22 11:36 Respiratory Rate 14 01/09/22 11:36 Blood Pressure 143/69 01/09/22 11:36 Pulse Oximetry 93 01/09/22 11:36 Oxygen Delivery Me thod 01/09/22 11:36 [facility] - General Adult Medical Decision Making 66-year-old male presenting to the emergency room with new onset of right-sided testicular pain for 1 week. Exam, patient is noted to have right-sided testicular external erythema without swelling. Patient had white count 3.8. Scrotal ultrasound showed right-sided acute epididymitis. Patient has no compla ints of pain currently. Suspect the source of the epididymitis is likely due to prostate CA. I have given patient follow up with our case management specialist to be seen by our outpatient by Dr. Garcia for evaluation of epididermitis. Patient aware of a call from our case management specialist to schedule for appointment(s) and verbalizes understanding of the importance of following up. Rx levofloxacin 500mg BID x 10 days, florastor PRN dyspepsia Disposition: Discharge. Patient counseled regarding diagnostic impression, treatment plan. Patient given ED strict return precautions to return for continuation, worsening, or development of new symptoms. Instructed to f/u w/ Urology and PCP regarding symptoms today. Patient verbalized understanding. Lab Data : 01/09/22 12:05 01/09/22 12:05 Radiology Impressions Scrotum Ultrasound 01/09/22 10:29 IMPRESSION: 1. Severe RIGHT acute epididymitis. 2. No testicular mass or torsion. Laboratory Results WBC 3.8 10^3/uL (4.0-10.0) L 01/09/22 12:05 RBC 4.32 10^6/uL (4.1-5.3) 01/09/22 12:05 Hgb 12.5 g/dL (11.7-16.6) 01/09/22 12:05 Hct 37.7 % (42.0-52.0) L 01/09/22 12:05 MCV 87.3 fl (80-94) 01/09/22 12:05 MCH 28.9 pg (28.0-34.0) 01/09/22 12:05 MCHC 33.2 g/dL (30.0-36.0) 01/09/22 12:05 RDW 13.2 % (12.1-15.1) 01/09/22 12:05 Plt Count 134 10^3/cmm (130-400) 01/09/22 12:05 MPV 9.5 fL (7.4-10.4) 01/09/22 12:05 Neut % (Auto) 60.1 % 01/09/22 12:05 Lymph % (Auto) 26.3 % 01/09/22 12:05 [place] % (Auto) 7.8 % 01/09/22 12:05 Eos % (Auto) 4.7 % 01/09/22 12:05 Baso % (Auto) 0.8 % 01/09/22 12:05 Neut # (Auto) 2.31 10^3/uL (1.8-7.7) 01/09/22 12:05 Lymph # (Auto) 1.0 10^3/uL (0.8-4.8) 01/09/22 12:05 [place] # (Auto) 0.3 10^3/uL (0.2-0.9) 01/09/22 12:05 Eos # (Auto) 0.2 10^3/uL (0.0-0.8) 01/09/22 12:05 Baso # (Auto) 0.0 10^3/uL (0.0-0.1) 01/09/22 12:05 Nucleated RBC % (auto) 0 % 01/09/22 12:05 Nucleated RBCs # 0.0 /100WBC 01/09/22 12:05 Imaging Data Other Imaging: Radiologist's impression: [place] [address] Ultrasound Report Signed Patient: Gabino Jones Unit #: [id number] : 1955 Age/Sex: 66 / M ADM Date: 01/09/22 Loc: ER Room/Bed: Attending Dr: Ordering Provider/Ordering MD: Job Magana DO Date of Service: 01/09/22 Procedure(s): US scrotum 04221 Accession Number(s): [id number] Report Number: [id number] WS: [id number] TESTICULAR ULTRASOUND HISTORY: pain/swelling COMPARISON: None available. TECHNIQUE: Real-time and color Doppler imaging or utilized to perform a testicular ultrasound. Right testicle: 4.4 cm x 2.2 cm x 2.2 cm. Normal size and echogenicity. No mass or torsion. Normal color Doppler is present throughout. Systolic and diastolic velocities are both present. Small simple hydrocele. Right epididymis: Markedly abnormal epididymis. There is increased echogenicity with scattered areas of low attenuation. Epididymis is enlarged axial slightly displaces the testicle. There is increased vascularity throughout the epididymis. Left testicle: 3.9 cm x 2.3 cm x 2.1 cm. Normal size and echogenicity. No mass or torsion. Normal color Doppler is present throughout. Systolic and diastolic velocities are both present. Small simple hydrocele. Left epididymis: Normal epididymis with no increased vascularity. US/US scrotum [id number] IMPRESSION: ? 1.? Severe RIGHT acute epididymitis. 2.? No testicular mass or torsion. ? ? Dictated By: Kaya Henriquez DO Signed By: Kaya Henriquez DO Signed Date/Time: 01/09/22 1100 DD/ 1057 Discharge Plan Discharge Patient Disposition: Home Clinical Impression: Epididymitis Condition: Stable Prescriptions: New levofloxacin 500 mg tablet 500 mg PO BID 10 Days Qty: 20 0RF Saccharomyces boulardii [Florastor] 250 mg capsule 250 mg PO BID 10 Days Qty: 20 0RF No Action cholecalciferol (vitamin D3) 10 mcg (400 unit) capsule 10 mcg PO DAILY Spiriva Respimat 2.5 mcg/actuation mist 2 inh INHALATION QAM bicalutamide [Casodex] 50 mg tablet 50 mg PO DAILY Qty: 30 0RF Rx Instructions: patient needs ESTEFANY, Prostate CA ipratropium-albuterol 0.5 mg-3 mg(2.5 mg base)/3 mL Solution For Nebulization 3 ml INHALATION Q6H PRN (Reason: Shortness Of Breath) albuterol sulfate 90 mcg/actuation Hfa Aerosol Inhaler 2 puff INHALATION Q6H PRN (Reason: Shortness Of Breath) atorvastatin 20 mg tablet 10 mg PO BEDTIME Eliquis 5 mg Tablet 5 mg PO BID Qty: 60 0RF Hold Instructions: Doctor's Order omeprazole 20 mg capsule,delayed release(DR/EC) 40 mg PO DAILY digoxin 250 mcg (0.25 mg) Tablet 250 mcg PO DAILY Qty: 30 0RF levothyroxine [Levoxyl] 100 mcg Tablet 100 mcg PO DAILY Qty: 30 0RF metoprolol tartrate 50 mg Tablet 75 mg PO BID Qty: 90 0RF docusate sodium [Stool Softener] 100 mg capsule 100 mg PO DAILY PRN (Reason: Constipation) nitroglycerin [Nitrostat] 0.4 mg Tablet, Sublingual 0.4 mg SUBLINGUAL Q5M PRN (Reason: Chest Pain) Rx Instructions: FOR 3 DOSES potassium chloride 20 mEq Tablet Extended Release 10 meq PO DAILY furosemide [Lasix] 40 mg tablet 40 mg PO QAM Compazine 10 mg Tablet 10 mg PO Q4H PRN (Reason: Mild Nausea) Qty: 30 3RF lorazepam 1 mg Tablet 0.5 - 1 mg PO Q6H PRN (Reason: Severe Nausea) Qty: 30 3RF prednisone 10 mg tablet See Taper PO DAILY Qty: 20 0RF Taper: predniSONE 60-10 40 mg Daily for 2 Days and 0 Hour 30 mg Daily for 2 Days and 0 Hour 20 mg Daily for 2 Days and 0 Hour 10 mg Daily for 2 Days and 0 Hour Adult Aspirin Regimen 81 mg tablet,delayed release (DR/EC) 81 mg PO DAILY Qty: 30 0RF Hold Instructions: Doctor's Order Discharge Orders: Discharge ED (Routine); Ordered 01/09/22 Ordered By: Storm De La O Referrals: Isela Gipson, PINKING SEWING MACHINE OPERATOR [Primary Care Provider] - Discharge Diet: Advance as tolerated Discharge Activity: Increase activity as tolerated Patient Instructions: Epididymitis (ED) Activity Restrictions/Additional Instructions: Our case management specialist will have you follow-up with Dr. Garcia in the next few days. You would be expected to have a phone call with our case management specialist who will put you on the schedule. You can expect a call from us in the next 2-3 days. If you don't hear from us, call us back in the emergency room at [phone]. Please take your antibiotics as instructed. Watch out for signs of skin changes/redness, mouth redeness or swelling, nausea/vomiting, diarrhea, blood in the urine or any new or concering complaints. 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 of Care Code ED Business Systems Advisor for Kevin Fwkatelin Exam Comprehensive
[2022-01-09 12:15] LABS: Basophils % 0.8 %; Eosinophils # 0.2 10^3/uL (0.0-0.8); Eosinophils % 4.7 %; Hematocrit 37.7 % (42.0-52.0); Hemoglobin 12.5 g/dL (11.7-16.6); Lymphocytes % 26.3 %; Mean Corpuscular HGB Conc 33.2 g/dL (30.0-36.0); Mean Corpuscular Hemoglobin 28.9 pg (28.0-34.0); Mean Corpuscular Volume 87.3 fl (80-94); Mean Platelet Volume 9.5 fL (7.4-10.4); Monocytes # 0.3 10^3/uL (0.2-0.9); Monocytes % 7.8 %; Neutrophils # 2.31 10^3/uL (1.8-7.7); Neutrophils % 60.1 %; Nucleated Red Blood Cells % 0 %; Platelet Count 134 10^3/cmm (130-400); Red Blood Count 4.32 10^6/uL (4.1-5.3); Red Cell Distribution Width 13.2 % (12.1-15.1); White Blood Count 3.8 10^3/uL (4.0-10.0)
[2022-01-09 12:33] VITALS: BP 162/78; PULSE 79; RESP 14; O2SAT 91
[2022-01-09 12:44] LABS: Anion Gap 12.6 (5-19); Blood Urea Nitrogen 16 mg/dL (8-23); Calcium 8.8 mg/dL (8.5-10.5); Carbon Dioxide 31 mmol/L (22-29); Chloride 100 mmol/L (98-107); Glomerular Filtration Rate 74.5 mL/min (90-130); Glucose 121 mg/dL (65-115); Osmolality Calculated 292 mOsm/kg (285-295); Potassium 3.6 mmol/L (3.5-5.1); Sodium 140 mmol/L (136-145)
--- NOTE | 2022-01-10 07:53 | DCPLANNER ---
Addendum entered by Allyson Gonzalez 01/26/22 11:36: Patient had a follow up appointment scheduled for 01.24.22 with urology - appointment was rescheduled Addendum entered by Allyson Gonzalez 01/12/22 13:23: Patient has a follow up appointment scheduled for Saturday, January 24, 2022 at 9:30 with Nuris De La Paz at urology. Clinic will call patient with appointment information. Addendum entered by Allyson Gonzalez 01/10/22 07:57: Patient has [employer] insurance, ed case manager sent patients information to Mary with [employer] [facility] [employer] [facility], for that authorization process to be started. Original Note: trust manager assistant had message to schedule a follow up appointment for patient with urology. trust manager assistant sent patients information to the front office staff at urology. Patients information will be printed and reviewed. Clinic will call patient with appointment information.
== END 2022-01-09 12:36 | disposition home or self-care (01) ==
PROVIDERS: Family Medicine; Emergency Provider Emergency Medicine; PCP Nurse Practitioner
DX: N45.1 Epididymitis (principal); Z79.01 Long term (current) use of anticoagulants; Z79.82 Long term (current) use of aspirin; I11.0 Hypertensive heart disease with heart failure; I50.9 Heart failure, unspecified; J44.9 Chronic obstructive pulmonary disease, unspecified; I25.10 Atherosclerotic heart disease of native coronary artery without angina pectoris; E78.5 Hyperlipidemia, unspecified; Z85.46 Personal history of malignant neoplasm of prostate; Z95.1 Presence of aortocoronary bypass graft; Z87.891 Personal history of nicotine dependence; Z79.899 Other long term (current) drug therapy
CPT/HCPCS: 36415; 76870; 80048; 85025; 99284

== ENCOUNTER 2022-01-30 08:54 | Oncology outpatient (recurring) (ONCR) | payer OTHER, SELFPAY ==
[2022-01-10 11:01] LABS: Basophils % 0.6 %; Eosinophils # 0.3 10^3/uL (0.0-0.8); Eosinophils % 5.8 %; Hematocrit 39.3 % (42.0-52.0); Hemoglobin 12.8 g/dL (11.7-16.6); Lymphocytes # 1.3 10^3/uL (0.8-4.8); Lymphocytes % 28.1 %; Mean Corpuscular HGB Conc 32.6 g/dL (30.0-36.0); Mean Corpuscular Hemoglobin 28.7 pg (28.0-34.0); Mean Corpuscular Volume 88.1 fl (80-94); Monocytes # 0.4 10^3/uL (0.2-0.9); Neutrophils # 2.63 10^3/uL (1.8-7.7); Neutrophils % 56.1 %; Nucleated Red Blood Cells % 0 %; Platelet Count 157 10^3/cmm (130-400); Red Blood Count 4.46 10^6/uL (4.1-5.3); Red Cell Distribution Width 13.2 % (12.1-15.1); White Blood Count 4.7 10^3/uL (4.0-10.0)
[2022-01-10 11:27] LABS: Alanine Aminotransferase 10 U/L (0-41); Albumin Level 4.1 g/dL (3.5-5.2); Alkaline Phosphatase 101 IU/L (40-130); Aspartate Amino Transferase 14 U/L (0-40); Blood Urea Nitrogen 13 mg/dL (8-23); Calcium 8.6 mg/dL (8.5-10.5); Carbon Dioxide 31 mmol/L (22-29); Chloride 99 mmol/L (98-107); Globulin 2.5 g/dL (1.3-4.6); Glomerular Filtration Rate 66.8 mL/min (90-130); Glucose 104 mg/dL (65-115); Osmolality Calculated 288 mOsm/kg (285-295); Sodium 139 mmol/L (136-145); Testosterone Total 37.2 ng/dL (193-740); Total Bilirubin 0.5 mg/dL (0.15-1.2); Total Protein 6.6 g/dL (6.6-8.7)
--- NOTE | 2022-01-24 09:54 | N.ONRAD NP_ITS ---
Radiation Oncology Consultation Patient Name: Gabino Jones Date of : 1955 Date of Service: 01/24/2022 Attending Physician: Kenneth Reynoso M.D. Gabino Jones was seen in consultation this morning at the request of Clay Garcia M.D. for consideration of prostate radiotherapy for the management of a recently diagnosed prostate cancer. He initially was identified to have an elevated PSA level. He was referred to Clay Garcia M.D. in August for evaluation. A PSA level obtained in August was 15.5 ng/mL. An enlarged prostate was described upon digital rectal exam without nodularities. A transrectal ultrasound-guided biopsy performed on September 28, 2021 revealed a 42 cc prostate gland with a hypoechoic region present within the left lateral peripheral zone. The pathology report (personally reviewed in Expanse) diagnosed an adenocarcinoma of the prostate gland with a Maryan score of 5+5 (Grade Group 5) involving right base, a [place] score of 4+4 (Grade Group 4) within the left lateral base, left base, and left apex, as well as, [place] score of 4+3 (Grade Group 3) present in the left apex. Perineural invasion was not identified. A nuclear medicine bone scintigraphy scan and an abdominopelvic CT scan (independently visualized in synapse did not identify metastatic disease. A right renal cyst measuring 1.7 cm x 1.5 cm was reported. He was evaluated by Nacho Tatum M.D. for androgen deprivation therapy. Casodex and a GnRH agonist (Eligard -administered on December 12) were prescribed. A PSA level obtained on January 10 was 2.2 ng/mL. The patient was evaluated for radiotherapeutic options. I discussed with Mr. Jones the [place] [employer] on Cancer staging for prostate cancer and specifically, the clinical stage IIIC (T1cN0) very high-risk stratification corresponding to the patient???s prostate cancer. I also reviewed the National Comprehensive Cancer Network Guidelines recommending androgen deprivation therapy, external beam radiotherapy with or without brachytherapy and consideration for docetaxel chemotherapy. The admonition by the NCCN was established by the RTOG 0521 trial that enrolled patients with high-risk non-metastatic prostate cancer to receive androgen suppression plus radiotherapy with or without adjuvant docetaxel chemotherapy. This study demonstrated improved overall survival and disease-free survival in the chemotherapy arm. I also reviewed GETUG???12 study which also enrolled high-risk localized prostate cancer patients to androgen suppression and docetaxel chemotherapy with estramustine or androgen suppression alone. Updated results published in abstract form continued to demonstrate a relapse free survival with the administration of chemotherapy. I would endorse a 7-1/2 week course of pelvic and prostate radiotherapy. A radiotherapy planning CT scan with oral and intravenous contrast in the treatment position will be acquired to delineate the target volumes. I also discussed potential adverse events related to pelvic radiotherapy. The patient has verbalized understanding would like to proceed as advised. His medical treatment plan was discussed with Nacho Tatum M.D. Signed by: Dr. Kenneth Reynoso 01/24/2022 9:52:16 AM
--- NOTE | 2022-01-30 | CT_ITS ---
Radiation Therapy Planning CT images; total exam DLP: 1011.61 mGy-cm MTDD
== END 2022-01-31 23:59 | disposition home or self-care (01) ==
PROVIDERS: Nurse Practitioner; PCP Nurse Practitioner; Visit Provider Internal Medicine Hematology & Oncology
DX: Z51.0 Encounter for antineoplastic radiation therapy (principal); C61 Malignant neoplasm of prostate
CPT/HCPCS: 36415; 77300; 77301; 77334; 77338; 77470; 80053; 84153; 84403; 85025; 99205; 99214

== ENCOUNTER 2022-02-01 13:45 | Outpatient (CLI) | payer OTHER, SELFPAY | END 2022-02-01 13:46 | disposition home or self-care (01) | LOC: LAB 13:46 | PROVIDERS: PCP Nurse Practitioner; Visit Provider Urology | DX: R97.20 Elevated prostate specific antigen [PSA] (principal) | CPT/HCPCS: 36415; 81003; 84153; 99213 ==

== ENCOUNTER 2022-02-21 10:48 | Emergency (ER) | payer OTHER, SELFPAY ==
[2022-02-21 11:17] VITALS: BP 152/65; PULSE 98; RESP 16; TEMP 36.9; O2SAT 91
--- NOTE | 2022-02-21 12:52 | XRR_ITS ---
PROCEDURE INFORMATION: Exam: XR Chest Exam date and time: 02/21/2022 4:08 PM Age: 66 years old Clinical indication: Cough and dyspnea and shortness of breath; Prior surgery; Surgery type: Open heart; Patient HX: HX of prostate cancer; Additional info: Dyspnea/cough TECHNIQUE: Imaging protocol: Radiologic exam of the chest. Views: 1 view. COMPARISON: CT chest wo con [id number] 08/20/2021 10:36 AM FINDINGS: Lungs: The lungs are somewhat hyperinflated with increased interstitial markings, likely representing COPD. There is reticular opacities in the lower lungs, corresponding to known pulmonary fibrosis. Superimposed pneumonia should be excluded clinically. Pleural spaces: Unremarkable. No pleural effusion. No pneumothorax. Heart/Mediastinum: Stable cardiomediastinal silhouette. The patient is status post CABG. Bones/joints: Median sternotomy changes seen. XR/XR chest 1V portable [id number] IMPRESSION: 1. Reticular airspace opacities at the lung bases, left greater than right, which may represent known changes of pulmonary fibrosis. Pneumonia should be excluded clinically. 2. COPD changes.
[2022-02-21 13:55] LABS: Basophils % 0.5 %; Eosinophils # 0.1 10^3/uL (0.0-0.8); Eosinophils % 1.7 %; Hematocrit 35.8 % (42.0-52.0); Hemoglobin 11.4 g/dL (11.7-16.6); Lymphocytes # 0.4 10^3/uL (0.8-4.8); Lymphocytes % 8.7 %; Mean Corpuscular HGB Conc 31.8 g/dL (30.0-36.0); Mean Corpuscular Hemoglobin 29.6 pg (28.0-34.0); Mean Platelet Volume 9.5 fL (7.4-10.4); Monocytes # 0.3 10^3/uL (0.2-0.9); Monocytes % 7.2 %; Neutrophils # 3.38 10^3/uL (1.8-7.7); Neutrophils % 81.7 %; Nucleated Red Blood Cells % 0 %; Platelet Count 104 10^3/cmm (130-400); Red Blood Count 3.85 10^6/uL (4.1-5.3); Red Cell Distribution Width 15.2 % (12.1-15.1); White Blood Count 4.1 10^3/uL (4.0-10.0)
[2022-02-21 15:56] VITALS: BP 188/71; PULSE 99; O2SAT 98
--- NOTE | 2022-02-21 16:26 | ED_ITS ---
HPI - SOB/Dyspnea General: Chief Complaint: Shortness of Breath/Dyspnea Stated Complaint: SOB Time Seen by Provider: 02/21/22 15:43 Source: patient Mode of arrival: ambulatory History of Present Illness: HPI Narrative: 66-year-old male presents emergency room with complaint of shortness of breath. He has had it most of the day today he took 1 nebulizer treatment this morning. It began about 3 days ago he is intermittently been using nebulizers he has had a productive cough is actually been clear sputum than usual. Patient has a history of prostate CA and did receive radiation this morning. He has a history of COPD as well and is on 2 L by nasal cannula chronically when he arrived here he is not on his oxygen his sats are around 88 to 89% improved to upper 90s with application of oxygen. MD elicited complaint: shortness of breath and cough Pertinent past history: COPD Onset (ago): day(s) (4) Timing: intermittent Severity: moderate Exacerbating factors: nothing Relieving factors: nothing Known history of: COPD Associated symptoms: Reports chest congestion; Deny abdominal pain, chest pain, cough, diaphoresis, dizziness, extremity pain, fever(s), hemoptysis, lightheadedness, myalgias, nausea, orthopnea, palpitations, paresthesias, polydipsia, polyuria, rash, sense of impending doom, syncope or vomiting Treatment prior to arrival: none Review of Systems Const: Denies: fever(s), chills or diaphoresis ENMT: Denies: throat pain, ear or mastoid pain, nasal discharge or nasal congestion Card: Denies: chest pain, palpitations, lightheadedness, syncope or orthopnea Resp: Reports: chest congestion; Denies: hemoptysis GI: Denies: abdominal pain, nausea or vomiting : Denies: flank pain, dysuria, urinary frequency or urinary urgency Musc: Denies: extremity pain Skin/Breast: Denies: rash or pruritus Neuro: Denies: dizziness Endo: Denies: polyuria or polydipsia PFS ED PFSH: Medical History Anemia Atrial fibrillation CHF (congestive heart failure) Last echocardiogram normal EF, grade 2/4 diastolic dysfunction October 2019 Chronic anticoagulation eliquis, for afib Chronic respiratory failure with hypoxia Colon polyps COPD (chronic obstructive pulmonary disease) Coronary artery disease Coronary artery disease Elevated PSA GERD (gastroesophageal reflux disease) Heart failure with preserved ejection fraction History of colon polyps Hyperlipidemia Hypertension Hypothyroidism Prostate cancer Surgical History History of colonoscopy (~04/2020) History of coronary artery bypass graft (03/2019) [address] [place] [address] History of knee surgery History of vasectomy S/P appendectomy S/P cholecystectomy Family History Father , IN HIS 50'S Lung disease tuberculosis Mother , AT AGE 63 CAD (coronary artery disease) Diabetes Hypertension Sister Cancer Denies family history of Clotting disorder Dementia Hyperlipidemia Psychiatric illness Chronic kidney disease (CKD) Suicide Anesthesia complication Bleeding disorder Stroke Social History Smoking and tobacco status: former smoker Quit status (tobacco): has quit using tobacco Year quit tobacco: 2016 PPD x 52 Years Alcohol intake: never Counseling given: No Lives independently: Yes Household members: none Marital status: Legally Current occupational status: employed and retired History of recent travel: No Current gender identity: Male Physical Exam Const: GENERAL APPEARANCE: cooperative and comfortable ORIENTATION/CONSCI OUSNESS: Yes awake, Yes oriented to person, Yes oriented to place and Yes oriented to time HENMT: COMMON NORMALS: normocephalic, atraumatic and hearing grossly normal bilaterally HEAD & SCALP: normocephalic and atraumatic Resp: COMMON NORMALS: normal respiratory effort, No retractions and No use of accessory muscles AUSCULTATION: wheezes Cardio: COMMON NORMALS: regular rate, regular rhythm and No murmurs present (Cardio) RATE: regular rate RHYTHM: regular rhythm GI: COMMON NORMALS: Soft to palpation and No hepatosplenomegaly present AUSCULTATION: Yes normoactive bowel sounds PALPATION: Yes Soft to palpation, No Tenderness to palpation present (GI), No Guarding due to palpation present (GI) and Yes No hepatosplenomegaly present Extremity: COMMON NORMALS: normal to inspection, capillary refill normal, no clubbing, cyanosis or edema, no calf tenderness and no pedal edema Neuro: SENSORIUM/ORIENTATION: Yes oriented to person, Yes oriented to place and Yes oriented to time Skin: COMMON NORMALS: no rashes or lesions noted GENERAL SKIN EXAM: no rashes or lesions noted Course Vital Signs: Vital signs: Vital Signs Temperature 98.5 F 02/21/22 11:17 Pulse Rate 99 02/21/22 16:48 Respiratory Rate 16 02/21/22 11:17 Blood Pressure 188/71 02/21/22 16:48 Pulse Oximetry 100 02/21/22 16:48 Oxygen Delivery Me thod 02/21/22 16:48 MDM - SOB/Dyspnea Medical Decision Making Labs and imaging reviewed as found in the chart. Acute exacerbation COPD. Start steroid taper tomorrow also add doxycycline use albuterol regularly follow-up with primary care next week sooner if not improving. Medical Records I reviewed the patient's medical records. Lab Data I reviewed the patient's lab results. : 02/21/22 13:49 Labs/Radiology: Radiology Impressions Chest X-Ray 02/21/22 12:52 IMPRESSION: 1. Reticular airspace opacities at the lung bases, left greater than right, which may represent known changes of pulmonary fibrosis. Pneumonia should be excluded clinically. 2. COPD changes. Laboratory Results WBC 4.1 10^3/uL (4.0-10.0) 02/21/22 13:49 RBC 3.85 10^6/uL (4.1-5.3) L 02/21/22 13:49 Hgb 11.4 g/dL (11.7-16.6) L 02/21/22 13:49 Hct 35.8 % (42.0-52.0) L 02/21/22 13:49 MCV 93.0 fl (80-94) 02/21/22 13:49 MCH 29.6 pg (28.0-34.0) 02/21/22 13:49 MCHC 31.8 g/dL (30.0-36.0) 02/21/22 13:49 RDW 15.2 % (12.1-15.1) H 02/21/22 13:49 Plt Count 104 10^3/cmm (130-400) L 02/21/22 13:49 MPV 9.5 fL (7.4-10.4) 02/21/22 13:49 Neut % (Auto) 81.7 % 02/21/22 13:49 Lymph % (Auto) 8.7 % 02/21/22 13:49 [place] % (Auto) 7.2 % 02/21/22 13:49 Eos % (Auto) 1.7 % 02/21/22 13:49 Baso % (Auto) 0.5 % 02/21/22 13:49 Neut # (Auto) 3.38 10^3/uL (1.8-7.7) 02/21/22 13:49 Lymph # (Auto) 0.4 10^3/uL (0.8-4.8) L 02/21/22 13:49 [place] # (Auto) 0.3 10^3/uL (0.2-0.9) 02/21/22 13:49 Eos # (Auto) 0.1 10^3/uL (0.0-0.8) 02/21/22 13:49 Baso # (Auto) 0.0 10^3/uL (0.0-0.1) 02/21/22 13:49 Nucleated RBC % (auto) 0 % 02/21/22 13:49 Nucleated RBCs # 0.0 /100WBC 02/21/22 13:49 Discharge Plan Discharge Patient Disposition: Home Clinical Impression: Acute exacerbation of chronic obstructive airways disease Condition: Stable Prescriptions: New doxycycline hyclate 100 mg capsule 100 mg PO BID 10 Days Qty: 20 0RF prednisone 20 mg tablet 20 mg PO TID Qty: 15 0RF Rx Instructions: 1 p.o. 3 times daily x3 days, 1 p.o. twice daily x2 days, 1 p.o. daily x2 days albuterol sulfate 90 mcg/actuation HFA aerosol inhaler 2 inh INHALATION Q4H PRN (Reason: shortness of breath or wheezing) Qty: 18 0RF No Action cholecalciferol (vitamin D3) 10 mcg (400 unit) capsule 10 mcg PO DAILY Spiriva Respimat 2.5 mcg/actuation mist 2 inh INHALATION QAM bicalutamide [Casodex] 50 mg tablet 50 mg PO DAILY Qty: 30 0RF Rx Instructions: patient needs ESTEFANY, Prostate CA aspirin 325 mg tablet 325 mg PO DAILY levothyroxine [Levoxyl] 100 mcg tablet 50 mcg PO DAILY ipratropium-albuterol 0.5 mg-3 mg(2.5 mg base)/3 mL Solution For Nebulization 3 ml INHALATION Q6H PRN (Reason: Shortness Of Breath) albuterol sulfate 90 mcg/actuation Hfa Aerosol Inhaler 2 puff INHALATION Q6H PRN (Reason: Shortness Of Breath) atorvastatin 20 mg tablet 10 mg PO BEDTIME Eliquis 5 mg Tablet 5 mg PO BID Qty: 60 0RF Hold Instructions: Resume on 03/20/20. omeprazole 20 mg capsule,delayed release(DR/EC) 40 mg PO DAILY digoxin 250 mcg (0.25 mg) Tablet 250 mcg PO DAILY Qty: 30 0RF metoprolol tartrate 50 mg Tablet 75 mg PO BID Qty: 90 0RF docusate sodium [Stool Softener] 100 mg capsule 100 mg PO DAILY PRN (Reason: Constipation) nitroglycerin [Nitrostat] 0.4 mg Tablet, Sublingual 0.4 mg SUBLINGUAL Q5M PRN (Reason: Chest Pain) Rx Instructions: FOR 3 DOSES potassium chloride 20 mEq Tablet Extended Release 10 meq PO DAILY furosemide [Lasix] 40 mg tablet 40 mg PO QAM Discharge Orders: Discharge ED (Routine); Ordered 02/21/22 Ordered By: Job Magana Referrals: Isela Gipson, [facility] [Primary Care Provider] - Discharge Diet: Usual diet Discharge Activity: Increase activity as tolerated Patient Instructions: Opioid Safety, Pain Management 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 of Care Code ED [employer] 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
[2022-02-21 16:48] VITALS: BP 188/71; PULSE 99; O2SAT 100
== END 2022-02-21 17:03 | disposition home or self-care (01) ==
PROVIDERS: Emergency Provider Family Medicine; PCP Nurse Practitioner
DX: J44.1 Chronic obstructive pulmonary disease with (acute) exacerbation (principal); Z79.82 Long term (current) use of aspirin; Z79.01 Long term (current) use of anticoagulants; Z87.891 Personal history of nicotine dependence; Z95.1 Presence of aortocoronary bypass graft; I11.0 Hypertensive heart disease with heart failure; I50.9 Heart failure, unspecified; J44.9 Chronic obstructive pulmonary disease, unspecified; E78.5 Hyperlipidemia, unspecified; Z85.46 Personal history of malignant neoplasm of prostate
CPT/HCPCS: 36415; 71045; 85025; 96374; 99284; J2930

== ENCOUNTER 2022-03-02 09:20 | Oncology outpatient (recurring) (ONCR) | payer OTHER, SELFPAY ==
--- NOTE | 2022-02-06 11:33 | ONCRAD TMN_ITS ---
Radiation Oncology Treatment Management Note Patient Name: Gabino Jones Date of : 1955 Date of Service: 02/06/2022 Attending Physician: Kenneth Reynoso M.D. 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 He initially was identified to have an elevated PSA level. He was referred to Clay Garcia M.D. in August for evaluation. A PSA level obtained in August was 15.5 ng/mL. An enlarged prostate was described upon digital rectal exam without nodularities. A transrectal ultrasound-guided biopsy performed on September 28, 2021 revealed a 42 cc prostate gland with a hypoechoic region present within the left lateral peripheral zone. The pathology report (personally reviewed in Expanse) diagnosed an adenocarcinoma of the prostate gland with a Maryan score of 5+5 (Grade Group 5) involving right base, a [place] score of 4+4 (Grade Group 4) within the left lateral base, left base, and left apex, as well as, [place] score of 4+3 (Grade Group 3) present in the left apex. Perineural invasion was not identified. A nuclear medicine bone scintigraphy scan and an abdominopelvic CT scan did not identify metastatic disease. He was evaluated by Nacho Tatum M.D. for androgen deprivation therapy. Casodex and a GnRH agonist (Eligard -administered on December 12) were prescribed. A PSA level obtained on January 10 was 2.2 ng/mL. The patient was evaluated for radiotherapeutic options. The patient has received 2 Gy of a prescribed 46 Garcia to the prostate and regional lymph nodes with an intensity modulated radiotherapy plan utilizing a step and shoot treatment technique. An additional 32 Garcia will be delivered to the prostate gland subsequent to the initial rivera. He has received neoadjuvant hormonal therapy. Upon review of systems, he denied any gastrointestinal of genitourinary complaints related to radiotherapy. On physical examination, the patient weighed 216 lbs. His temperature was 97 ???F and the blood pressure was 145/70 mmHg. The pulse was 65 bpm and his respiratory rate was 18. There was no erythema within the treatment rivera. Continue pelvic radiotherapy as prescribed. Signed by: Dr. Kenneth Reynoso 02/06/2022 11:31:47 AM
--- NOTE | 2022-02-12 10:15 | ONCRAD TMN_ITS ---
Radiation Oncology Treatment Management Note Patient Name: Gabino Jones Date of : 1955 Date of Service: 02/12/2022 Attending Physician: Kenneth Reynoso M.D. 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 He initially was identified to have an elevated PSA level. He was referred to Clay Garcia M.D. in August for evaluation. A PSA level obtained in August was 15.5 ng/mL. An enlarged prostate was described upon digital rectal exam without nodularities. A transrectal ultrasound-guided biopsy performed on September 28, 2021 revealed a 42 cc prostate gland with a hypoechoic region present within the left lateral peripheral zone. The pathology report diagnosed an adenocarcinoma of the prostate gland with a [place] score of 5+5 (Grade Group 5) involving right base, a Maryan score of 4+4 (Grade Group 4) within the left lateral base, left base, and left apex, as well as, [place] score of 4+3 (Grade Group 3) present in the left apex. Perineural invasion was not identified. A nuclear medicine bone scintigraphy scan and an abdominopelvic CT scan did not identify metastatic disease. He was evaluated by Nacho Tatum M.D. for androgen deprivation therapy. Casodex and a GnRH agonist (Eligard -administered on December 12) were prescribed. A PSA level obtained on January 10 was 2.2 ng/mL. The patient has received 10 Gy of a prescribed 46 Garcia to the prostate and regional lymph nodes with an intensity modulated radiotherapy plan utilizing a step and shoot treatment technique. An additional 32 Garcia will be delivered to the prostate gland subsequent to the initial rivera. He has received neoadjuvant hormonal therapy. Upon review of systems, he denied any gastrointestinal of genitourinary complaints related to radiotherapy. On physical examination, the patient weighed 21 lbs. His temperature was 97???F and the blood pressure was 162/76 mmHg. The pulse was 66 bpm and his respiratory rate was 18. There was no erythema within the treatment rivera. Continue pelvic radiotherapy as planned. Signed by: Dr. Kenneth Reynoso 02/12/2022 10:14:06 AM
--- NOTE | 2022-02-19 10:43 | ONCRAD TMN_ITS ---
Radiation Oncology Treatment Management Note Patient Name: Gabino Jones Date of : 1955 Date of Service: 02/19/2022 Attending Physician: Kenneth Reynoso M.D. 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 He initially was identified to have an elevated PSA level. He was referred to Clay Garcia M.D. in August for evaluation. A PSA level obtained in August was 15.5 ng/mL. An enlarged prostate was described upon digital rectal exam without nodularities. A transrectal ultrasound-guided biopsy performed on September 28, 2021 revealed a 42 cc prostate gland with a hypoechoic region present within the left lateral peripheral zone. The pathology report diagnosed an adenocarcinoma of the prostate gland with a [place] score of 5+5 (Grade Group 5) involving right base, a Maryan score of 4+4 (Grade Group 4) within the left lateral base, left base, and left apex, as well as, [place] score of 4+3 (Grade Group 3) present in the left apex. Perineural invasion was not identified. A nuclear medicine bone scintigraphy scan and an abdominopelvic CT scan did not identify metastatic disease. He was evaluated by Nacho Tatum M.D. for androgen deprivation therapy. Casodex and a GnRH agonist (Eligard -administered on December 12) were prescribed. A PSA level obtained on January 10 was 2.2 ng/mL. The patient has received 20 Gy of a prescribed 46 Garcia to the prostate and regional lymph nodes with an intensity modulated radiotherapy plan utilizing a step and shoot treatment technique. An additional 32 Garcia will be delivered to the prostate gland subsequent to the initial rivera. He has received neoadjuvant hormonal therapy. Upon review of systems, he reported decreased stream vigor. On physical examination, the patient weighed 216 lbs. His temperature was 97.8???F and the blood pressure was 154/73 mmHg. The pulse was 72 bpm and his respiratory rate was 18. There was no erythema within the treatment rivera. Continue pelvic radiotherapy as prescribed. Signed by: Dr. Kenneth Reynoso 02/19/2022 10:41:59 AM
--- NOTE | 2022-02-26 10:29 | ONCRAD TMN_ITS ---
Radiation Oncology Treatment Management Note Patient Name: Gabino Jones Date of : 1955 Date of Service: 02/26/2022 Attending Physician: Kenneth Reynoso M.D. 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 He initially was identified to have an elevated PSA level. He was referred to Clay Garcia M.D. in August for evaluation. A PSA level obtained in August was 15.5 ng/mL. An enlarged prostate was described upon digital rectal exam without nodularities. A transrectal ultrasound-guided biopsy performed on September 28, 2021 revealed a 42 cc prostate gland with a hypoechoic region present within the left lateral peripheral zone. The pathology report diagnosed an adenocarcinoma of the prostate gland with a [place] score of 5+5 (Grade Group 5) involving right base, a Maryan score of 4+4 (Grade Group 4) within the left lateral base, left base, and left apex, as well as, [place] score of 4+3 (Grade Group 3) present in the left apex. Perineural invasion was not identified. A nuclear medicine bone scintigraphy scan and an abdominopelvic CT scan did not identify metastatic disease. He was evaluated by Nacho Tatum M.D. for androgen deprivation therapy. Casodex and a GnRH agonist (Eligard -administered on December 12) were prescribed. A PSA level obtained on January 10 was 2.2 ng/mL. The patient has received 30 Gy of a prescribed 46 Garcia to the prostate and regional lymph nodes with an intensity modulated radiotherapy plan utilizing a step and shoot treatment technique. An additional 32 Garcia will be delivered to the prostate gland subsequent to the initial rivera. Upon review of systems, he reported continued decreased stream vigor and intermittency. On physical examination, the patient weighed 210 lbs. His temperature was 97.6???F and the blood pressure was 156/77 mmHg. The pulse was 69 bpm and his respiratory rate was 18. There was no erythema within the treatment rivera. Continue pelvic radiotherapy as planned. I recommended a trial of a NSAID. Signed by: Dr. Kenneth Reynoso 02/26/2022 10:27:57 AM
== END 2022-03-02 23:59 | disposition home or self-care (01) ==
PROVIDERS: PCP Nurse Practitioner; Visit Provider Radiology Radiation Oncology
DX: C61 Malignant neoplasm of prostate (principal); I15.9 Secondary hypertension, unspecified; J44.9 Chronic obstructive pulmonary disease, unspecified; Z79.818 Long term (current) use of other agents affecting estrogen receptors and estrogen levels; Z79.899 Other long term (current) drug therapy
CPT/HCPCS: 77336; 77385

== ENCOUNTER 2022-03-30 09:17 | Oncology outpatient (recurring) (ONCR) | payer OTHER, SELFPAY ==
--- NOTE | 2022-03-05 10:52 | ONCRAD TMN_ITS ---
Radiation Oncology Treatment Management Note Patient Name: Gabino Jones Date of : 1955 Date of Service: 03/05/2022 Attending Physician: Kenneth Reynoso M.D. 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 He initially was identified to have an elevated PSA level. He was referred to Clay Garcia M.D. in August for evaluation. A PSA level obtained in August was 15.5 ng/mL. An enlarged prostate was described upon digital rectal exam without nodularities. A transrectal ultrasound-guided biopsy performed on September 28, 2021 revealed a 42 cc prostate gland with a hypoechoic region present within the left lateral peripheral zone. The pathology report diagnosed an adenocarcinoma of the prostate gland with a [place] score of 5+5 (Grade Group 5) involving right base, a Maryan score of 4+4 (Grade Group 4) within the left lateral base, left base, and left apex, as well as, [place] score of 4+3 (Grade Group 3) present in the left apex. Perineural invasion was not identified. A nuclear medicine bone scintigraphy scan and an abdominopelvic CT scan did not identify metastatic disease. He was evaluated by Nacho Tatum M.D. for androgen deprivation therapy. Casodex and a GnRH agonist (Eligard -administered on December 12) were prescribed. A PSA level obtained on January 10 was 2.2 ng/mL. The patient has received 40 Gy of a prescribed 46 Garcia to the prostate and regional lymph nodes with an intensity modulated radiotherapy plan utilizing a step and shoot treatment technique. An additional 32 Garcia will be delivered to the prostate gland subsequent to the initial rivera. Upon review of systems, he reported improvement in LUTS with NSAIDs. On physical examination, the patient weighed 212 lbs. His temperature was 97.2???F and the blood pressure was 116/68 mmHg. The pulse was 52 bpm and his respiratory rate was 16. There was no erythema within the treatment rivera. Continue pelvic radiotherapy as prescribed. Signed by: Dr. Kenneth Reynoso 03/05/2022 10:51:35 AM
--- NOTE | 2022-03-12 10:15 | ONCRAD TMN_ITS ---
Radiation Oncology Treatment Management Note Patient Name: Gabino Jones Date of : 1955 Date of Service: 03/12/2022 Attending Physician: Kenneth Reynoso M.D. 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 He initially was identified to have an elevated PSA level. He was referred to Clay Garcia M.D. in August for evaluation. A PSA level obtained in August was 15.5 ng/mL. An enlarged prostate was described upon digital rectal exam without nodularities. A transrectal ultrasound-guided biopsy performed on September 28, 2021 revealed a 42 cc prostate gland with a hypoechoic region present within the left lateral peripheral zone. The pathology report diagnosed an adenocarcinoma of the prostate gland with a [place] score of 5+5 (Grade Group 5) involving right base, a Maryan score of 4+4 (Grade Group 4) within the left lateral base, left base, and left apex, as well as, Maryan score of 4+3 (Grade Group 3) present in the left apex. Perineural invasion was not identified. A nuclear medicine bone scintigraphy scan and an abdominopelvic CT scan did not identify metastatic disease. He was evaluated by Nacho Tatum M.D. for androgen deprivation therapy. Casodex and a GnRH agonist (Eligard -administered on December 12) were prescribed. A PSA level obtained on January 10 was 2.2 ng/mL. The patient has received 50 Gy of a prescribed 78 Gy to the prostate and seminal vesicles Upon review of systems, he had no new complaints. On physical examination, the patient weighed 213 lbs. His temperature was 98.5???F and the blood pressure was 124/61 mmHg. The pulse was 65 bpm and his respiratory rate was 16. There was no erythema within the treatment rivera. Continue pelvic radiotherapy as planned. Signed by: Dr. Kenneth Reynoso 03/12/2022 10:13:31 AM
[2022-03-14 13:26] LABS: Prostate Specific Antigen 0.204 ng/mL (0-4)
[2022-03-14] MEDS: leuprolide 22.5 mg Kit IM (15:27)
--- NOTE | 2022-03-19 10:11 | ONCRAD TMN_ITS ---
Radiation Oncology Treatment Management Note Patient Name: Gabino Jones Date of : 1955 Date of Service: 03/19/2022 Attending Physician: Kenneth Reynoso M.D. 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 He initially was identified to have an elevated PSA level. He was referred to Clay Garcia M.D. in August for evaluation. A PSA level obtained in August was 15.5 ng/mL. An enlarged prostate was described upon digital rectal exam without nodularities. A transrectal ultrasound-guided biopsy performed on September 28, 2021 revealed a 42 cc prostate gland with a hypoechoic region present within the left lateral peripheral zone. The pathology report diagnosed an adenocarcinoma of the prostate gland with a [place] score of 5+5 (Grade Group 5) involving the right base, a Maryan score of 4+4 (Grade Group 4) within the left lateral base, left base, and left apex, as well as, Maryan score of 4+3 (Grade Group 3) present in the left apex. Perineural invasion was not identified. A nuclear medicine bone scintigraphy scan and an abdominopelvic CT scan did not identify metastatic disease. He was evaluated by Nacho Tatum M.D. for androgen deprivation therapy. Casodex and a GnRH agonist (Eligard -administered on December 12, 2021 and March 14, 2022) were prescribed. A PSA level obtained on January 10 was 2.2 ng/mL. The patient has received 60 Gy of a prescribed 78 Gy to the prostate and seminal vesicles Upon review of systems, he described continued nocturia. On physical examination, the patient weighed 211 lbs. His temperature was 97.9???F and the blood pressure was 106/65 mmHg. The pulse was 75 bpm and his respiratory rate was 16. There was no erythema within the treatment rivera. Continue pelvic radiotherapy as planned. I will prescribe Flomax for LUTS. Signed by: Dr. Kenneth Reynoso 03/19/2022 10:10:14 AM
--- NOTE | 2022-03-26 10:18 | ONCRAD TMN_ITS ---
Radiation Oncology Treatment Management Note Patient Name: Gabino Jones Date of : 1955 Date of Service: 03/26/2022 Attending Physician: Kenneth Reynoso M.D. 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 He initially was identified to have an elevated PSA level. He was referred to Clay Garcia M.D. in August for evaluation. A PSA level obtained in August was 15.5 ng/mL. An enlarged prostate was described upon digital rectal exam without nodularities. A transrectal ultrasound-guided biopsy performed on September 28, 2021 revealed a 42 cc prostate gland with a hypoechoic region present within the left lateral peripheral zone. The pathology report diagnosed an adenocarcinoma of the prostate gland with a [place] score of 5+5 (Grade Group 5) involving the right base, a Maryan score of 4+4 (Grade Group 4) within the left lateral base, left base, and left apex, as well as, Maryan score of 4+3 (Grade Group 3) present in the left apex. Perineural invasion was not identified. A nuclear medicine bone scintigraphy scan and an abdominopelvic CT scan did not identify metastatic disease. He was evaluated by Nacho Tatum M.D. for androgen deprivation therapy. Casodex and a GnRH agonist (Eligard -administered on December 12, 2021 and March 14, 2022) were prescribed. A PSA level obtained on January 10 was 2.2 ng/mL. The patient has received 70 Gy of a prescribed 78 Gy to the prostate and seminal vesicles Upon review of systems, he reported significant improvement from LUTS with Flomax. On physical examination, the patient weighed 212 lbs. His temperature was 97.8???F and the blood pressure was 154/62 mmHg. The pulse was 91 bpm and his respiratory rate was 17. There was no erythema within the treatment rivera. Continue pelvic radiotherapy as prescribed. Signed by: Dr. Kenneth Reynoso 03/26/2022 10:17:29 AM
--- NOTE | 2022-03-30 09:46 | N.ONRD TS_ITS ---
Radiation OncologyTreatment Summary Patient Name: Gabino Jones Date of : 1955 Date of Service: 03/30/2022 Attending Physician: Kenneth Reynoso M.D. 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 He initially was identified to have an elevated PSA level. He was referred to Clay Garcia M.D. in August for evaluation. A PSA level obtained in August was 15.5 ng/mL. An enlarged prostate was described upon digital rectal exam without nodularities. A transrectal ultrasound-guided biopsy performed on September 28, 2021 revealed a 42 cc prostate gland with a hypoechoic region present within the left lateral peripheral zone. The pathology report diagnosed an adenocarcinoma of the prostate gland with a Maryan score of 5+5 (Grade Group 5) involving the right base, a Starr score of 4+4 (Grade Group 4) within the left lateral base, left base, and left apex, as well as, Maryan score of 4+3 (Grade Group 3) present in the left apex. Perineural invasion was not identified. A nuclear medicine bone scintigraphy scan and an abdominopelvic CT scan did not identify metastatic disease. He was evaluated by Nacho Tatum M.D. for androgen deprivation therapy. Casodex and a GnRH agonist (Eligard -administered on December 12, 2021 and March 14, 2022) were prescribed. A PSA level obtained on January 10 was 2.2 ng/mL. Pelvic radiation therapy was delivered between the dates of February 06, 2022 through March 30, 2022. A prescribed dose of 78 Gy was delivered in 39 fractions encompassing 53 elapsed days. The prostate gland, seminal vesicles, and regional lymph node stations were treated utilizing an intensity modulated radiotherapy plan with a step and shoot treatment technique. The plan arranged nine gantry angles (0???, 30???, 65???, 100???, 150???, 210???, 260???, 295???, and 330???) replicating an arc. The collimator rotation was 0???. The field sizes spanned between 18.8 cm x 14.5 cm to 21.3 cm x 14.8 cm. The SSDs measured a minimum of 81.7 cm to a maximum of 87.7 cm. The ports delivered 203 MU, 201 MU, 241 MU, 227 MU, 193 MU, 177 MU, 224 MU, 240 MU, and 238 MU corresponding to the gantry angles described. The initial rivera began on February 06, 2022 and continued through March 08, 2022. A prescribed dose of 46 Garcia was administered 23 fractions over 31 elapsed days. The prostate gland and seminal vesicles were subsequently treated incorporating and intensity modulated radiotherapy plan with a step and shoot treatment technique. The plan designed nine gantry angles (0???, 30???, 65???, 100???, 150???, 210???, 260???, 295???, and 330???) replicating an arc. The collimator rotation was 0???. The field measured between 9.5 cm x 7.5 cm to 11 cm x 7.5 cm. The SSD breadths were 80.7 cm to 87.5 cm. The ports allocated 150 MU, 123 MU, 98 MU, 90 MU, 115 MU, 118 MU, 100 MU, 115 MU, and 124 MU corresponding to the gantry angles described. The reduced ports started on March 09, 2022 and concluded on March 30, 2022. An additional 32 Gy was allocated in 16 fractions over 22 elapsed days. All treatments were performed with the [employer] linear accelerator and an isocentric technique. High energy photons were prescribed. The dose was calculated by Anisotropic Analytic Algorithm with the plan normalized to deliver 100% of the prescription dose to 95% of the planning target volume. The plan was designed and approved by the [facility] physician. Signed by: Dr. Kenneth Reynoso 03/30/2022 9:44:47 AM
== END 2022-04-02 23:59 | disposition home or self-care (01) ==
PROVIDERS: Internal Medicine Hematology & Oncology; PCP Nurse Practitioner; Visit Provider Radiology Radiation Oncology
DX: C61 Malignant neoplasm of prostate; Z51.0 Encounter for antineoplastic radiation therapy
CPT/HCPCS: 77336; 77385; 84153; 96402; 99214; J9217

== ENCOUNTER → 2022-04-11 08:37 | Outpatient (BNVA) | payer OTHER, SELFPAY | PROVIDERS: PCP Nurse Practitioner; Visit Provider Surgery | DX: C61 Malignant neoplasm of prostate (principal) | CPT/HCPCS: 99213 ==

== ENCOUNTER 2022-04-18 10:01 | Day surgery (SDC) | payer OTHER, SELFPAY ==
[2022-04-17 12:23] VITALS: BMI 30.4
[2022-04-18] VITALS (10 sets, daily range): BP systolic 94–142; BP diastolic 46–62; PULSE 79–90; RESP 12–22; TEMP 36.2–36.4; O2SAT 91–100
--- NOTE | 2022-04-18 10:19 | SC_ITS ---
WS: [id number] INTRAOPERATIVE TECHNIQUE: 3 Spot fluoroscopic images for intraoperative purposes. FLUOROSCOPY TIME: 23.0 seconds CLINICAL INFORMATION: Powerport Placement COMPARISON: None. FINDINGS: RIGHT Port-A-Cath with tip in the SVC. Sternotomy. Endotracheal tube. Enteric tube. SC/C-arm FL for CVA [id number] IMPRESSION: RIGHT Port-A-Cath with tip in the distal SVC
[2022-04-18] MEDS: sodium chloride 0.9% 1,000 ML 30 ML IV (10:45)
--- NOTE | 2022-04-18 11:16 | ANES.PREANE2 ---
Pre-Anesthetic Assessment Height/Weight: Height 1.78 m Weight 96.162 kg Temp Pulse Resp BP Pulse Ox O2 Del Method 97.5 F L 79 18 142/62 96 04/18/22 10:32 04/18/22 10:32 04/18/22 10:32 04/18/22 10:32 04/18/22 10:32 04/18/22 10:34 Preop Diagnosis: Prostate cancer Operation Date: 04/18/22 12:00 Proposed Procedures p Portacath Placement 85258,C61(Not Applicable) - Osei Choi MD Familial anesthetic complications: None Was Beta Kulwant taken within 24 hours: N/A Was Clonidine taken within 24 hours: N/A Last intake: Intake Last Liquid Date 04/17/22 Last Liquid Time 22:30 Last Solid Date 04/17/22 Last Solid Time 16:00 Social No alcohol and No tobacco Exam alert, oriented x 3, clear to auscultation bilaterally and regular rate & rhythm Airway Mallampati: Class III Dentition: full Comments: Comments: [email or web address] Pulmonary Chronic Obstructive Pulmonary Disease CV/HEM Atrial Fibrillation, Coronary Artery Disease (stent and cabg in 2019), Congestive Heart Failure and Hypertension GI Gastroesophageal Reflux Disease Metabolic Hyperlipidemia and Thyroid Disease Anesthetic Plan ASA status: 4 Anesthesia: MAC Risk of > 500 ml blood loss (7ml/kg in children): No Medications/Allergies Home Medications Medication Instructions Recorded Confirmed Last Taken Type albuterol sulfate 90 mcg/actuation 2 puff inhalation Q6H PRN 09/25/19 04/17/22 04/18/22 05:00 History aerosol inhaler Shortness Of Breath ipratropium 0.5 mg-albuterol 3 mg 3 ml inhalation Q6H PRN Shortness 09/25/19 04/18/22 04/18/22 08:00 History (2.5 mg base)/3 mL nebulization Of Breath soln apixaban 5 mg tablet (Eliquis) 5 mg PO BID #60 tabs 10/16/19 04/17/22 04/14/22 Rx atorvastatin 20 mg tablet 10 mg PO BEDTIME 10/27/19 04/17/22 04/16/22 History digoxin 250 mcg (0.25 mg) tablet 250 mcg PO DAILY #30 tabs 01/22/20 04/17/22 04/17/22 Rx metoprolol tartrate 50 mg tablet 75 mg PO BID #90 tabs 01/22/20 04/18/22 04/18/22 03:00 Rx omeprazole 20 mg capsule,delayed 40 mg PO DAILY 10/04/20 04/18/22 04/18/22 03:00 History release furosemide 40 mg tablet (Lasix) 40 mg PO QAM 03/28/21 04/18/22 04/17/22 History nitroglycerin 0.4 mg sublingual 0.4 mg sublingual Q5M PRN Chest 03/28/21 04/17/22 04/15/22 History tablet (Nitrostat) Pain potassium chloride 20 mEq 10 meq PO DAILY 03/28/21 04/18/22 04/18/22 03:00 History tablet,extended release docusate sodium 100 mg capsule 100 mg PO DAILY PRN Constipation 04/26/21 04/17/22 04/15/22 History (Stool Softener) tiotropium bromide 2.5 2 inh inhalation QAM 04/26/21 04/18/22 04/18/22 03:00 History mcg/actuation mist for inhalation (Spiriva Respimat) cholecalciferol (vitamin D3) 10 10 mcg PO DAILY 08/29/21 04/17/22 04/17/22 History mcg (400 unit) capsule aspirin 325 mg tablet 325 mg PO DAILY 01/10/22 04/17/22 04/14/22 History levothyroxine 100 mcg tablet 50 mcg PO DAILY 01/10/22 04/17/22 04/17/22 History (Levoxyl) tamsulosin 0.4 mg capsule (Flomax) 0.4 mg PO .qhs #30 caps 03/19/22 04/18/22 04/17/22 Rx Allergies Allergy/AdvReac Type Severity Reaction Status Date / Time No Known Allergies Allergy Verified 04/18/22 10:23 Current Medications Generic Name Dose Route Start Last Admin Trade Name Freq PRN Reason Stop Dose Admin Sodium Chloride 1,000 mls @ 30 mls/hr 04/18/22 10:30 04/18/22 10:45 Sodium Chloride 0.9% IV 04/19/22 10:29 30 mls/hr .Q24H JUAN DAVID Administration PFSH Anesthesia Medical History Anemia Atrial fibrillation CHF (congestive heart failure) Last echocardiogram normal EF, grade 2/4 diastolic dysfunction October 2019 Chronic anticoagulation eliquis, for afib Chronic respiratory failure with hypoxia Colon polyps COPD (chronic obstructive pulmonary disease) Coronary artery disease Coronary artery disease Elevated PSA GERD (gastroesophageal reflux disease) Heart failure with preserved ejection fraction History of colon polyps Hyperlipidemia Hypertension Hypothyroidism Prostate cancer Surgical History History of colonoscopy (~04/2020) History of coronary artery bypass graft (03/2019) [address] [place] [address] History of knee surgery History of vasectomy S/P appendectomy S/P cholecystectomy Family History Father , IN HIS 50'S Lung disease tuberculosis Mother , AT AGE 63 CAD (coronary artery disease) Diabetes Hypertension Sister Cancer Denies family history of Clotting disorder Dementia Hyperlipidemia Psychiatric illness Chronic kidney disease (CKD) Suicide Anesthesia complication Bleeding disorder Stroke Social History Smoking and tobacco status: never smoked Quit status (tobacco): has quit using tobacco Year quit tobacco: 2016 - PPD x 52 Years Alcohol intake: never Counseling given: No Lives independently: Yes Household members: none Marital status: Legally Current occupational status: employed and retired History of recent travel: No Current gender identity: Male Data Anesthesia Cardiac Studies: Echocardiogram Ultrasound 10/16/19
--- NOTE | 2022-04-18 12:56 | W.PM.OPSUD ---
Surgery/Procedure H&P Update DATE OF PROCEDURE: April 18, 2022 DATE H&P PERFORMED: 04/11/22 H&P UPDATE INFORMATION: I have reviewed H&P completed within last 30 days, I have examined patient prior to procedure and No changes to prior documentation PREOP DIAGNOSIS: Prostate cancer PRIMARY INDICATION FOR PROCEDURE: The same PLANNED PROCEDURE: Operation Date: 04/18/22 12:00 Proposed Procedures p Portacath Placement 66153,C61(Not Applicable) - Osei Choi MD
[2022-04-18] MEDS: ceFAZolin 2,000 MG in sodium chloride 0.9% (plus) 50 ML 100 MG IV (13:48)
[2022-04-18] MEDS: heparin, porcine 1,000 unit/mL INJ 10 mL 10000 UNIT IRRIGATION (14:33)
--- NOTE | 2022-04-18 14:37 | SCC_ITS ---
Procedure done: 1. Placement of PowerPort via right internal jugular vein 2. Fluoroscopic guidance and interpretation for placement of catheter 3. Ultrasound guidance to access the right internal jugular vein 23 seconds of fluoroscopic guidance, for a cumulative dose of 4.12 mGy, was provided to Dr. Garces by the radiology department. C-arm images of the chest were saved for the patient's permanent record. [facility]
--- NOTE | 2022-04-18 14:51 | XR_ITS ---
WS: [id number] Exam: XR chest 1V portable [id number] Date/Time of Exam: 04/18/2022 3:08 PM Reason For Exam: status post right internal jugular vein PowerPort Comparison 02/21/2022. A right IJ catheter has been placed and appears to end in the lower one third of the IVC. The lungs r emain fully inflated. Fibrous scarring and bleb formation in the upper lung zones. Chronic interstiti al changes in the bilateral lung bases. Cardiomediastinal silhouette is unremarkable for technique. S igns of previous CABG surgery and median sternotomy. Bony structures are intact. XR/XR chest 1V portable [id number] IMPRESSION: 1. Right-sided IJ port ending in the lower one third of the SVC. 2. Emphysematous bleb formation in the upper lung zones and chronic interstitia l changes in the lower bilateral lung zones. No acute process or pneumothorax n oted.
--- NOTE | 2022-04-18 14:52 | PM.OP ---
Operative Report Date of procedure: April 18, 2022 Pre-op diagnosis: Preop Diagnosis Prostate cancer Procedure done: 1. Placement of PowerPort via right internal jugular vein 2. Fluoroscopic guidance and interpretation for placement of catheter 3. Ultrasound guidance to access the right internal jugular vein Implants: Right internal jugular vein PowerPort Surgeon: Osei Choi MD Motion Picture Set Worker: Sheryl Chambers Circulating nurse Daniela Anesthesia: General (CATINA Cahmbers) Procedure: U/S Guided IJ access Patient was identified in the holding area and taken to the operative room and placed in supine position IV propofol was given by the anesthesia provider ,both arms were tucked,Time-out was done verifying the patient's name/date of /planned procedure and destination after the procedure, all were in agreement. SCDs confirmed to be functioning, preoperative antibiotics administered per protocol, and beta radha protocol was confirmed, appropriate positioning of the patient was done by me. Medications were reviewed to assess for anticoagulant usage. Risks and benefits and prevention of central line associated blood stream infection (CLABSI) were discussed with the patient/CPOA, and a consent was obtained. Monitors were in place and monitored throughout the procedure. All necessary supplies were available prior to start. Hand hygiene was completed prior to starting. Maximum barrier technique was utilized including a sterile gown, sterile gloves with a hat and mask. Site was was prepped with [chlorhexidine] and a full body drape was placed. 5 mL of 2% lidocaine was injected into the skin with a 25 gauge needle. Prep& drape was done under the usual sterile technique, lidocaine 2% was injected at the site of the stick, started by right Internal Juglar vein stick that retrieved venous blood was obtained from the first stick under ultrasound guidance and there was no evidence of intraluminal thrombosis, interpretation was done by me through the whole entire procedure, a guidewire was then threaded and under the guidance of fluoroscopy position was confirmed to be in the IVC and my interpretation, there was no PVC changes, at that point the guidewire was secured to the drapes with a hemostat and the needle was taken out. Attention was then deviated towards creation of a pocket for the port were lidocaine 2% was injected using an 15 blade knife skin incision was created at the right upper Chest ,dissection using the Bovie to create a pocket for the PowerPort to be accommodated, hemostasis was secured, after the port being appropriately flushed it was inserted into the pocket and a tunneler was used to accommodate the catheter of the port cath to be delivered through the incision first created at the site of the stick, yet I had to create a transit incision at the root of the neck at the right side to the patient difficult anatomy , and then I was able to retrieve the catheter at the index site of the stick. At that point under fluoroscopy an estimated length was measured for the catheter and was cut at the designed level, followed by that a dilator with the sheath introduced onto the guidewire the dilator and the wire were retrieved and the catheter of the port was introduced via the sheath where it was peeled off and the catheter maintained to be in the SVC that was confirmed with fluoroscopy, and the fluoroscopy interpretation was done by me throughout the entire procedure. Multiple flushes of the port was done by diluted heparin and I was able to retrieve without difficulty venous blood as well as appropriate flushing was achieved. The port was kept in its pocket.3-0 Vicryl deep subdermal interrupted sutures, skin was then closed by 4-0 Monocryl as subcuticular closure. The port was appropriately flushed with heparin and venous blood was withdrawn without difficulty The stick site was closed by 4-0 Monocryl and Dermabond was used followed by dressing. Patient tolerated the procedure well was taken to the recovery area Count was correct at the end of the procedure I was present for the whole entire procedure
== END 2022-04-18 16:24 | disposition home or self-care (01) ==
PROVIDERS: PCP Nurse Practitioner; Visit Provider Surgery
PROC: (CPT 36561; principal; 2022-04-18 12:00)
DX: C61 Malignant neoplasm of prostate (principal); J44.9 Chronic obstructive pulmonary disease, unspecified; I48.91 Unspecified atrial fibrillation; I25.10 Atherosclerotic heart disease of native coronary artery without angina pectoris; Z95.5 Presence of coronary angioplasty implant and graft; Z95.1 Presence of aortocoronary bypass graft; I11.0 Hypertensive heart disease with heart failure; I50.9 Heart failure, unspecified; K21.9 Gastro-esophageal reflux disease without esophagitis; E78.5 Hyperlipidemia, unspecified; Z79.82 Long term (current) use of aspirin; Z79.01 Long term (current) use of anticoagulants; E03.9 Hypothyroidism, unspecified; Z87.891 Personal history of nicotine dependence
CPT/HCPCS: 36561; 71045; 76000; 77001; C1788; J0330; J0690; J1100; J1644; J2405; J2704; J3010; J3490; J3535; J7030; J7611

== ENCOUNTER 2022-05-02 13:30 | Oncology outpatient (recurring) (ONCR) | payer OTHER, SELFPAY ==
[2022-04-05 09:11] LABS: Basophils % 0.9 %; Eosinophils # 0.1 10^3/uL (0.0-0.8); Hematocrit 31.6 % (42.0-52.0); Hemoglobin 10.2 g/dL (11.7-16.6); Lymphocytes # 0.3 10^3/uL (0.8-4.8); Mean Corpuscular HGB Conc 32.3 g/dL (30.0-36.0); Mean Corpuscular Hemoglobin 30.3 pg (28.0-34.0); Mean Corpuscular Volume 93.8 fl (80-94); Mean Platelet Volume 9.8 fL (7.4-10.4); Monocytes # 0.2 10^3/uL (0.2-0.9); Monocytes % 10.4 %; Neutrophils # 1.66 10^3/uL (1.8-7.7); Neutrophils % 72.3 %; Nucleated Red Blood Cells % 0 %; Platelet Count 127 10^3/cmm (130-400); Red Blood Count 3.37 10^6/uL (4.1-5.3); Red Cell Distribution Width 16.8 % (12.1-15.1); White Blood Count 2.3 10^3/uL (4.0-10.0)
[2022-04-05 09:31] LABS: Alanine Aminotransferase 13 U/L (0-41); Albumin Level 4.1 g/dL (3.5-5.2); Alkaline Phosphatase 91 U/L (40-130); Anion Gap 12.1 (5-19); Aspartate Amino Transferase 12 U/L (0-40); Blood Urea Nitrogen 18 mg/dL (8-23); Calcium 8.9 mg/dL (8.5-10.5); Carbon Dioxide 29 mmol/L (22-29); Chloride 101 mmol/L (98-107); Globulin 2.5 g/dL (1.3-4.6); Glomerular Filtration Rate 84.2 mL/min (90-130); Glucose 152 mg/dL (65-115); Osmolality Calculated 291 mOsm/kg (285-295); Potassium 4.1 mmol/L (3.5-5.1); Sodium 138 mmol/L (136-145); Total Bilirubin 0.4 mg/dL (0.15-1.2); Total Protein 6.6 g/dL (6.6-8.7)
[2022-04-23 10:54] VITALS: BP 147/67; PULSE 65; RESP 16; TEMP 36.6; O2SAT 97
[2022-04-23 10:57] LABS: Basophils % 0.3 %; Eosinophils # 0.1 10^3/uL (0.0-0.8); Hematocrit 30.9 % (42.0-52.0); Hemoglobin 10.2 g/dL (11.7-16.6); Lymphocytes # 0.4 10^3/uL (0.8-4.8); Lymphocytes % 14.1 %; Mean Corpuscular Hemoglobin 30.4 pg (28.0-34.0); Mean Corpuscular Volume 92.2 fl (80-94); Mean Platelet Volume 9.7 fL (7.4-10.4); Monocytes # 0.3 10^3/uL (0.2-0.9); Monocytes % 10.4 %; Neutrophils # 2.13 10^3/uL (1.8-7.7); Neutrophils % 71.9 %; Nucleated Red Blood Cells % 0 %; Platelet Count 140 10^3/cmm (130-400); Red Blood Count 3.35 10^6/uL (4.1-5.3); Red Cell Distribution Width 14.9 % (12.1-15.1)
[2022-04-23 11:18] LABS: Alanine Aminotransferase 13 U/L (0-41); Albumin Level 3.5 g/dL (3.5-5.2); Alkaline Phosphatase 96 U/L (40-130); Anion Gap 11.8 (5-19); Aspartate Amino Transferase 11 U/L (0-40); Blood Urea Nitrogen 22 mg/dL (8-23); Calcium 8.8 mg/dL (8.5-10.5); Carbon Dioxide 30 mmol/L (22-29); Chloride 103 mmol/L (98-107); Glomerular Filtration Rate 96.4 mL/min (90-130); Glucose 117 mg/dL (65-115); Osmolality Calculated 296 mOsm/kg (285-295); Potassium 3.8 mmol/L (3.5-5.1); Sodium 141 mmol/L (136-145); Total Bilirubin 0.3 mg/dL (0.15-1.2); Total Protein 6.5 g/dL (6.6-8.7)
--- NOTE | 2022-04-23 11:42 | PC.NURSE ---
Pt did not take prescribed Dexamethasone. Dr. Goodman notified. [facility]. Pt to come back to clinic in the morning to begin Docetaxel tx. /lc
[2022-04-24 08:43] VITALS: BP 149/63; PULSE 75; RESP 16; TEMP 36.1; O2SAT 96
[2022-04-24] MEDS: sodium chloride 0.9% 250 ML 75 ML IV (08:53)
[2022-04-24] MEDS: palonosetron 0.25 mg/5 mL SDV IVP (08:54)
[2022-04-24] MEDS: famotidine 20 mg/2 mL INJ IVP (08:57)
[2022-04-24] MEDS: diphenhydrAMINE 50 mg/mL SDV 1mL 25 MG IVP (08:59)
[2022-04-24 10:40] VITALS: BP 155/69; PULSE 72; RESP 16; TEMP 36.2; O2SAT 95
[2022-04-24] MEDS: pegfilgrastim 6 mg/0.6 mL Kit (onpro) SUBCUT (10:40)
[2022-05-02 14:55] LABS: Basophils % 0.2 %; Eosinophils % 0.9 %; Hematocrit 31.5 % (42.0-52.0); Hemoglobin 9.9 g/dL (11.7-16.6); Lymphocytes # 0.3 10^3/uL (0.8-4.8); Mean Corpuscular HGB Conc 31.4 g/dL (30.0-36.0); Mean Corpuscular Hemoglobin 29.6 pg (28.0-34.0); Mean Corpuscular Volume 94.3 fl (80-94); Mean Platelet Volume 10.7 fL (7.4-10.4); Monocytes # 0.4 10^3/uL (0.2-0.9); Monocytes % 9.7 %; Neutrophils # 3.22 10^3/uL (1.8-7.7); Neutrophils % 74.8 %; Nucleated Red Blood Cells % 0.5 %; Platelet Count 110 10^3/cmm (130-400); Red Blood Count 3.34 10^6/uL (4.1-5.3); Red Cell Distribution Width 15.3 % (12.1-15.1); White Blood Count 4.3 10^3/uL (4.0-10.0)
[2022-05-02 15:28] LABS: Slide Review Slide Review Perform
[2022-05-02 15:51] LABS: Alanine Aminotransferase 17 U/L (0-41); Albumin Level 3.3 g/dL (3.5-5.2); Alkaline Phosphatase 95 U/L (40-130); Anion Gap 12.5 (5-19); Aspartate Amino Transferase 13 U/L (0-40); Blood Urea Nitrogen 18 mg/dL (8-23); Calcium 8.7 mg/dL (8.5-10.5); Carbon Dioxide 26 mmol/L (22-29); Chloride 104 mmol/L (98-107); Glomerular Filtration Rate 66.8 mL/min (90-130); Glucose 197 mg/dL (65-115); Osmolality Calculated 295 mOsm/kg (285-295); Potassium 3.5 mmol/L (3.5-5.1); Sodium 139 mmol/L (136-145); Total Bilirubin 0.3 mg/dL (0.15-1.2); Total Protein 6.3 g/dL (6.6-8.7)
== END 2022-05-02 23:59 | disposition home or self-care (01) ==
PROVIDERS: Internal Medicine Hematology & Oncology; PCP Nurse Practitioner; Visit Provider Nurse Practitioner
DX: C61 Malignant neoplasm of prostate (principal); M87.852 Other osteonecrosis, left femur; M87.851 Other osteonecrosis, right femur; R11.0 Nausea; Z79.52 Long term (current) use of systemic steroids; Z79.891 Long term (current) use of opiate analgesic; Z79.899 Other long term (current) drug therapy
CPT/HCPCS: 36591; 80053; 85025; 96375; 96377; 96413; 99024; 99214; J1100; J1200; J2469; J2506; J3490; J7050; J9171

== ENCOUNTER 2022-05-18 10:22 | Oncology outpatient (recurring) (ONCR) | payer OTHER, SELFPAY ==
[2022-05-09 10:33] LABS: Basophils % 0.7 %; Eosinophils % 0.4 %; Hematocrit 27.9 % (42.0-52.0); Hemoglobin 8.7 g/dL (11.7-16.6); Lymphocytes # 0.3 10^3/uL (0.8-4.8); Lymphocytes % 11.4 %; Mean Corpuscular HGB Conc 31.2 g/dL (30.0-36.0); Mean Corpuscular Hemoglobin 29.9 pg (28.0-34.0); Mean Corpuscular Volume 95.9 fl (80-94); Mean Platelet Volume 10.4 fL (7.4-10.4); Monocytes # 0.3 10^3/uL (0.2-0.9); Monocytes % 8.9 %; Neutrophils % 78.2 %; Nucleated Red Blood Cells % 0 %; Platelet Count 174 10^3/cmm (130-400); Red Blood Count 2.91 10^6/uL (4.1-5.3); Red Cell Distribution Width 15.8 % (12.1-15.1); White Blood Count 2.8 10^3/uL (4.0-10.0)
[2022-05-09] MEDS: sodium chloride 0.9% 500 ML 999 ML IV (10:42)
[2022-05-09] MEDS: ondansetron 2 mg/ML SDV 2 mL 8 MG IVP (10:46)
[2022-05-09 11:40] VITALS: BP 147/78; PULSE 78; RESP 18; TEMP 36.1; O2SAT 98
[2022-05-09 12:26] LABS: Alanine Aminotransferase 49 U/L (0-41); Albumin Level 3.1 g/dL (3.5-5.2); Alkaline Phosphatase 139 U/L (40-130); Anion Gap 14.7 (5-19); Aspartate Amino Transferase 29 U/L (0-40); Blood Urea Nitrogen 12 mg/dL (8-23); Calcium 8.6 mg/dL (8.5-10.5); Carbon Dioxide 25 mmol/L (22-29); Chloride 103 mmol/L (98-107); Globulin 3.1 g/dL (1.3-4.6); Glomerular Filtration Rate 84.2 mL/min (90-130); Glucose 163 mg/dL (65-115); Osmolality Calculated 291 mOsm/kg (285-295); Potassium 3.7 mmol/L (3.5-5.1); Sodium 139 mmol/L (136-145); Total Bilirubin 0.2 mg/dL (0.15-1.2); Total Protein 6.2 g/dL (6.6-8.7)
[2022-05-09 12:27] LABS: Prostate Specific Antigen < 0.014 ng/mL (0-4)
[2022-05-16 08:27] LABS: Hematocrit 28.8 % (42.0-52.0); Hemoglobin 8.8 g/dL (11.7-16.6); Lymphocytes # 0.1 10^3/uL (0.8-4.8); Lymphocytes % 2.9 %; Mean Corpuscular HGB Conc 30.6 g/dL (30.0-36.0); Mean Corpuscular Hemoglobin 28.9 pg (28.0-34.0); Mean Corpuscular Volume 94.7 fl (80-94); Mean Platelet Volume 9.5 fL (7.4-10.4); Monocytes # 0.2 10^3/uL (0.2-0.9); Monocytes % 4.7 %; Neutrophils # 4.49 10^3/uL (1.8-7.7); Neutrophils % 91.4 %; Nucleated Red Blood Cells % 0 %; Platelet Count 288 10^3/cmm (130-400); Red Blood Count 3.04 10^6/uL (4.1-5.3); Red Cell Distribution Width 15.4 % (12.1-15.1); White Blood Count 4.9 10^3/uL (4.0-10.0)
[2022-05-16 08:45] LABS: Alanine Aminotransferase 36 U/L (0-41); Albumin Level 3.1 g/dL (3.5-5.2); Alkaline Phosphatase 121 U/L (40-130); Anion Gap 16.1 (5-19); Aspartate Amino Transferase 25 U/L (0-40); Blood Urea Nitrogen 21 mg/dL (8-23); Calcium 8.7 mg/dL (8.5-10.5); Carbon Dioxide 26 mmol/L (22-29); Chloride 100 mmol/L (98-107); Globulin 3.7 g/dL (1.3-4.6); Glomerular Filtration Rate 84.2 mL/min (90-130); Glucose 222 mg/dL (65-115); Osmolality Calculated 296 mOsm/kg (285-295); Potassium 4.1 mmol/L (3.5-5.1); Sodium 138 mmol/L (136-145); Total Bilirubin 0.2 mg/dL (0.15-1.2); Total Protein 6.8 g/dL (6.6-8.7)
[2022-05-16 10:23] LABS: Reticulocyte % 1.9 % (0.5-2.0)
[2022-05-16 10:25] LABS: Vitamin B12 1645 pg/mL (232-1245)
[2022-05-16 11:26] LABS: Iron 37 ug/dL (59-158); Total Iron Binding Capacity 194 mcg/dl; Unsaturated Iron Binding 157 ug/dL (112-347)
--- NOTE | 2022-05-16 11:50 | PC.NURSE ---
Pt was given supplies/instructions to collect stool for IFOB. Pt voiced understanding/lc
[2022-05-18 13:01] LABS: Occult Blood Stool Negative (Negative)
== END 2022-06-02 23:59 | disposition home or self-care (01) ==
PROVIDERS: Internal Medicine Hematology & Oncology; PCP Nurse Practitioner; Visit Provider Nurse Practitioner
DX: C61 Malignant neoplasm of prostate (principal); D64.9 Anemia, unspecified; Z79.899 Other long term (current) drug therapy
CPT/HCPCS: 36415; 36591; 80053; 82270; 82607; 83540; 83550; 84153; 85025; 85045; 96365; 96375; 99215; J2405; J7040

== ENCOUNTER 2022-06-06 08:59 | Oncology outpatient (recurring) (ONCR) | payer OTHER, SELFPAY ==
[2022-06-06 10:04] LABS: Basophils % 0.5 %; Eosinophils # 0.1 10^3/uL (0.0-0.8); Eosinophils % 2.5 %; Hematocrit 32.9 % (42.0-52.0); Hemoglobin 10.3 g/dL (11.7-16.6); Lymphocytes # 0.4 10^3/uL (0.8-4.8); Lymphocytes % 8.8 %; Mean Corpuscular HGB Conc 31.3 g/dL (30.0-36.0); Mean Corpuscular Hemoglobin 28.7 pg (28.0-34.0); Mean Corpuscular Volume 91.6 fl (80-94); Mean Platelet Volume 9.3 fL (7.4-10.4); Monocytes # 0.4 10^3/uL (0.2-0.9); Monocytes % 8.8 %; Neutrophils # 3.14 10^3/uL (1.8-7.7); Neutrophils % 79.1 %; Nucleated Red Blood Cells % 0 %; Platelet Count 155 10^3/cmm (130-400); Red Blood Count 3.59 10^6/uL (4.1-5.3); Red Cell Distribution Width 15.3 % (12.1-15.1)
[2022-06-06 10:32] LABS: Alanine Aminotransferase 14 U/L (0-41); Albumin Level 3.7 g/dL (3.5-5.2); Alkaline Phosphatase 97 U/L (40-130); Anion Gap 12.9 (5-19); Aspartate Amino Transferase 14 U/L (0-40); Blood Urea Nitrogen 12 mg/dL (8-23); Calcium 8.4 mg/dL (8.5-10.5); Carbon Dioxide 27 mmol/L (22-29); Chloride 103 mmol/L (98-107); Glomerular Filtration Rate 96.4 mL/min (90-130); Glucose 114 mg/dL (65-115); Osmolality Calculated 289 mOsm/kg (285-295); Potassium 3.9 mmol/L (3.5-5.1); Prostate Specific Antigen < 0.014 ng/mL (0-4); Sodium 139 mmol/L (136-145); Testosterone Total 2.5 ng/dL (193-740); Total Bilirubin 0.3 mg/dL (0.15-1.2); Total Protein 6.7 g/dL (6.6-8.7)
[2022-06-06 12:00] VITALS: BP 124/78; PULSE 78; RESP 18; TEMP 36.6; O2SAT 97
[2022-06-06] MEDS: leuprolide 22.5 mg Kit IM (12:23)
== END 2022-07-03 23:59 | disposition home or self-care (01) ==
PROVIDERS: Internal Medicine Hematology & Oncology; PCP Nurse Practitioner; Visit Provider Nurse Practitioner
DX: C61 Malignant neoplasm of prostate (principal); C79.11 Secondary malignant neoplasm of bladder; M87.852 Other osteonecrosis, left femur; M87.851 Other osteonecrosis, right femur; K62.7 Radiation proctitis; K62.5 Hemorrhage of anus and rectum; Z79.52 Long term (current) use of systemic steroids; Z79.818 Long term (current) use of other agents affecting estrogen receptors and estrogen levels; Z79.899 Other long term (current) drug therapy
CPT/HCPCS: 36591; 80053; 84153; 84403; 85025; 96402; 99214; J9217

== ENCOUNTER 2022-06-25 09:02 | Inpatient (IN) | payer OTHER, SELFPAY ==
[2022-06-25] VITALS (19 sets, daily range): BP systolic 126–163; BP diastolic 61–93; PULSE 70–136; RESP 16–20; TEMP 36.1–37.7; O2SAT 91–96
--- NOTE | 2022-06-25 09:07 | XR_ITS ---
WS: [id number] Exam: XR chest 1V portable [id number] Date/Time of Exam: 06/25/2022 9:14 AM Reason For Exam: chest pain Comparison 04/18/2022. Patchy airspace and interstitial pneumonia seen in the mid and lower right lung. There are chronic ch anges and plaque atelectasis in the left base. Changes of bullous emphysema in the upper lung zones. No pneumothorax. Cardiomediastinal silhouette is unremarkable. Signs of previous CABG surgery. A righ t IJ port is in place ending in the lower one third of the SVC. Bony structures are intact. XR/XR chest 1V portable [id number] IMPRESSION: 1. Patchy airspace and interstitial pneumonia in the mid and lower right lung. 2. Changes of bullous emphysema and interstitial fibrosis in both lungs. 3. Right IJ port remaining in satisfactory location.
--- NOTE | 2022-06-25 09:08 | ECG_ITS ---
Test Date: 2022-06-25 Pat Name: Gabino Jones Department: Room: Gender: Male Manager Field Service: : 1955 Requested By: Job Summers Order Number: [id number] Mick MD: Favio Ferguson M.D. Measurements Intervals [place] Rate: 112 P: 82 [place]: 173 QRS: 35 QRSD: 133 T: 85 QT: 365 QTc: 500 Interpretive Statements SINUS TACHYCARDIA RIGHT BUNDLE BRANCH BLOCK [120+ ms QRS DURATION, UPRIGHT V1, 40+ ms S IN I/aVL/V4/V5/V6] MARKED ST DEPRESSION, CONSIDER SUBENDOCARDIAL INJURY [0.2+ mV ST DEPRESSION] ACUTE UT Compared to ECG 04/14/2021 11:58:03 ST (T wave) deviation now present Sinus rhythm no longer present Electronically Signed On 06-26-2022 7:42:07 BALLOON DIPPER by Favio Ferguson M.D. [email or web address]
[2022-06-25 09:43] LABS: Eosinophils % 0.3 %; Hematocrit 34.6 % (42.0-52.0); Hemoglobin 10.9 g/dL (11.7-16.6); Lymphocytes # 0.3 10^3/uL (0.8-4.8); Lymphocytes % 10.8 %; Mean Corpuscular HGB Conc 31.5 g/dL (30.0-36.0); Mean Corpuscular Hemoglobin 28.2 pg (28.0-34.0); Mean Corpuscular Volume 89.6 fl (80-94); Mean Platelet Volume 9.1 fL (7.4-10.4); Monocytes # 0.3 10^3/uL (0.2-0.9); Monocytes % 11.8 %; Neutrophils # 2.21 10^3/uL (1.8-7.7); Neutrophils % 77.1 %; Nucleated Red Blood Cells % 0 %; Platelet Count 142 10^3/cmm (130-400); Red Blood Count 3.86 10^6/uL (4.1-5.3); Red Cell Distribution Width 15.8 % (12.1-15.1); White Blood Count 2.9 10^3/uL (4.0-10.0)
[2022-06-25 10:02] LABS: Alanine Aminotransferase 11 U/L (0-41); Albumin Level 3.9 g/dL (3.5-5.2); Alkaline Phosphatase 85 U/L (40-130); Anion Gap 14.5 (5-19); Aspartate Amino Transferase 17 U/L (0-40); Blood Urea Nitrogen 15 mg/dL (8-23); Calcium 8.2 mg/dL (8.5-10.5); Carbon Dioxide 27 mmol/L (22-29); Chloride 94 mmol/L (98-107); Globulin 3.1 g/dL (1.3-4.6); Glomerular Filtration Rate 74.5 mL/min (90-130); Glucose 121 mg/dL (65-115); Osmolality Calculated 276 mOsm/kg (285-295); Potassium 3.5 mmol/L (3.5-5.1); Sodium 132 mmol/L (136-145); Total Bilirubin 0.9 mg/dL (0.15-1.2); Troponin(5th) Baseline 45 ng/L (0-15)
--- NOTE | 2022-06-25 10:05 | W.ED.SOB ---
HPI - SOB/Dyspnea General: Chief Complaint: Shortness of Breath/Dyspnea Stated Complaint: SOB/ CHEST PAIN X 2 DAYS Time Seen by Provider: 06/25/22 09:07 Source: patient Mode of arrival: EMS History of Present Illness: HPI Narrative: 66-year-old male brings emergency room with complaint of chest pain for last days along with shortness of breath. He normally is on oxygen at 2 L/min on arrival here when I went to see the patient he was on 4 L/min he tells me he has been more short of breath with a productive cough he has a thick sputum in the bedside panel on arrival here. Turned his oxygen down to 2 and is maintaining sats in the mid to low 90s. EMS reported he was 77% on room air. He is currently getting chemotherapy for prostate cancer MD elicited complaint: shortness of breath and cough Pertinent past history: COPD Onset (ago): day(s) (2) Associated symptoms: Reports chest pain; Deny abdominal pain, fever(s), nausea, orthopnea or vomiting Review of Systems Const: Denies: fever(s), chills, body aches, change in appetite, fatigue or malaise ENMT: Denies: throat pain, ear or mastoid pain, nasal discharge or nasal congestion Card: Reports: chest pain; Denies: edema, dyspnea on exertion or orthopnea Resp: Reports: dyspnea, productive cough and wheezing; Denies: non-productive cough GI: Denies: abdominal pain, nausea, vomiting, hematemesis, coffee ground emesis, diarrhea, constipation, bloating, hematochezia or melena : Denies: flank pain, dysuria, urinary frequency or urinary urgency Skin/Breast: Denies: rash or pruritus PFSH ED PFSH: Medical History Anemia Atrial fibrillation CHF (congestive heart failure) Last echocardiogram normal EF, grade 2/4 diastolic dysfunction October 2019 Chronic anticoagulation eliquis, for afib Chronic respiratory failure with hypoxia Colon polyps COPD (chronic obstructive pulmonary disease) Coronary artery disease Coronary artery disease Elevated PSA GERD (gastroesophageal reflux disease) Heart failure with preserved ejection fraction History of colon polyps Hyperlipidemia Hypertension Hypothyroidism Prostate cancer Surgical History History of colonoscopy (~04/2020) History of coronary artery bypass graft (03/2019) [address] [place] [address] History of knee surgery History of vasectomy S/P appendectomy S/P cholecystectomy Family History Father , IN HIS 50'S Lung disease tuberculosis Mother , AT AGE 63 CAD (coronary artery disease) Diabetes Hypertension Sister Cancer Denies family history of Clotting disorder Dementia Hyperlipidemia Psychiatric illness Chronic kidney disease (CKD) Suicide Anesthesia complication Bleeding disorder Stroke Social History Smoking and tobacco status: never smoked Quit status (tobacco): has quit using tobacco Year quit tobacco: 2016 - PPD x 52 Years Alcohol intake: never Counseling given: No Lives independently: Yes Household members: none Marital status: Legally Current occupational status: employed and retired History of recent travel: No Current gender identity: Male Physical Exam Const: GENERAL APPEARANCE: cooperative and comfortable ORIENTATION/CONSCIOUSNESS: Yes awake, Yes oriented to person, Yes oriented to place and Yes oriented to time HENMT: COMMON NORMALS: normocephalic, atraumatic and hearing grossly normal bilaterally HEAD & SCALP: normocephalic and atraumatic Resp: COMMON NORMALS: normal respiratory effort, No retractions, No use of accessory muscles and clear to auscultation bilaterally AUSCULTATION: clear to auscultation bilaterally Cardio: COMMON NORMALS: regular rate, regular rhythm and No murmurs present (Cardio) RATE: regular rate RHYTHM: regular rhythm GI: COMMON NORMALS: Soft to palpation and No hepatosplenomegaly present AUSCULTATION: Yes normoactive bowel sounds PALPATION: Yes Soft to palpation, No Tenderness to palpation present (GI), No Guarding due to palpation present (GI) and Yes No hepatosplenomegaly present Extremity: COMMON NORMALS: normal to inspection, capillary refill normal, no clubbing, cyanosis or edema, no calf tenderness and no pedal edema Neuro: SENSORIUM/ORIENTATION: Yes oriented to person, Yes oriented to place and Yes oriented to time Skin: COMMON NORMALS: no rashes or lesions noted GENERAL SKIN EXAM: no rashes or lesions noted Course Vital Signs: Vital signs: Vital Signs Temperature 100 F H 06/25/22 09:03 Pulse Rate 113 H 06/25/22 11:12 Respiratory Rate 18 06/25/22 11:12 Blood Pressure 143/67 06/25/22 11:12 Pulse Oximetry 91 06/25/22 11:12 Oxygen Delivery Me thod 06/25/22 10:24 Oxygen Flow Rate 2.5 06/25/22 10:24 MDM - SOB/Dyspnea Medical Decision Making Right middle and lower lobe pneumonia. She has a slight increased oxygen requirement. He had complained of some chest pain at baseline troponin is 45 initial EKG shows rate related ST changes some depression laterally however at the time it was taken he is not having any chest pain. He does have a right bundle branch block which has been present in the past. We will continue to run out his troponins. Started on Levaquin for the pneumonia. Medical Records I reviewed the patient's medical records. Lab Data I reviewed the patient's lab results. 06/25/22 09:30 06/25/22 09:30 Labs/Radiology: Radiology Impressions Chest X-Ray 06/25/22 09:07 IMPRESSION: 1. Patchy airspace and interstitial pneumonia in the mid and lower right lung. 2. Changes of bullous emphysema and interstitial fibrosis in both lungs. 3. Right IJ port remaining in satisfactory location. Laboratory Results WBC 2.9 10^3/uL (4.0-10.0) L 06/25/22 09:30 RBC 3.86 10^6/uL (4.1-5.3) L 06/25/22 09:30 Hgb 10.9 g/dL (11.7-16.6) L 06/25/22 09:30 Hct 34.6 % (42.0-52.0) L 06/25/22 09:30 MCV 89.6 fl (80-94) 06/25/22 09:30 MCH 28.2 pg (28.0-34.0) 06/25/22 09:30 MCHC 31.5 g/dL (30.0-36.0) 06/25/22 09:30 RDW 15.8 % (12.1-15.1) H 06/25/22 09:30 Plt Count 142 10^3/cmm (130-400) 06/25/22 09:30 MPV 9.1 fL (7.4-10.4) 06/25/22 09:30 Neut % (Auto) 77.1 % 06/25/22 09:30 Lymph % (Auto) 10.8 % 06/25/22 09:30 Curry % (Auto) 11.8 % 06/25/22 09:30 Eos % (Auto) 0.3 % 06/25/22 09:30 Baso % (Auto) 0.0 % 06/25/22 09:30 Neut # (Auto) 2.21 10^3/uL (1.8-7.7) 06/25/22 09:30 Lymph # (Auto) 0.3 10^3/uL (0.8-4.8) L 06/25/22 09:30 Curry # (Auto) 0.3 10^3/uL (0.2-0.9) 06/25/22 09:30 Eos # (Auto) 0.0 10^3/uL (0.0-0.8) 06/25/22 09:30 Baso # (Auto) 0.0 10^3/uL (0.0-0.1) 06/25/22 09:30 Nucleated RBC % (auto) 0 % 06/25/22 09:30 Nucleated RBCs # 0.0 /100WBC 06/25/22 09:30 Sodium 132 mmol/L (136-145) L 06/25/22 09:30 Potassium 3.5 mmol/L (3.5-5.1) 06/25/22 09:30 Chloride 94 mmol/L (98-107) L 06/25/22 09:30 Carbon Dioxide 27 mmol/L (22-29) 06/25/22 09:30 Anion Gap 14.5 (5-19) 06/25/22 09:30 BUN 15 mg/dL (8-23) 06/25/22 09:30 Creatinine 1.0 mg/dL (0.7-1.2) 06/25/22 09:30 GFR Calculation 74.5 mL/min (90-130) L 06/25/22 09:30 Glucose 121 mg/dL (65-115) H 06/25/22 09:30 Calculated Osmolality 276 mOsm/kg (285-295) L 06/25/22 09:30 Calcium 8.2 mg/dL (8.5-10.5) L 06/25/22 09:30 Total Bilirubin 0.9 mg/dL (0.15-1.2) 06/25/22 09:30 AST 17 U/L (0-40) 06/25/22 09:30 ALT 11 U/L (0-41) 06/25/22 09:30 Alkaline Phosphatase 85 U/L (40-130) 06/25/22 09:30 Troponin T Baseline 45 ng/L (0-15) H 06/25/22 09:30 Total Protein 7.0 g/dL (6.6-8.7) 06/25/22 09:30 Albumin 3.9 g/dL (3.5-5.2) 06/25/22 09:30 Globulin 3.1 g/dL (1.3-4.6) 06/25/22 09:30 Discharge Plan Discharge Patient Disposition: Admitted As Inpatient Clinical Impression: Community acquired pneumonia, Prostate CA, Acute exacerbation of chronic obstructive airways disease, Atypical chest pain Condition: Stable 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 of Care Code ED Dish Up Person for Kevin Arceo
[2022-06-25] MEDS: ipratropium 0.5 mg/2.5 mL Neb INHALATION ×3 (10:23→21:50)
[2022-06-25] MEDS: albuterol 2.5 mg/3 mL Neb INHALATION ×3 (10:23→21:49)
--- NOTE | 2022-06-25 10:26 | P.HP_ITS ---
Providers/Chief Complaint Admitting Physician: Corwin Martini MD, hospitalist Primary Care Provider: PATO Hernandez Chief Complaint: SOB/ CHEST PAIN X 2 DAYS History of Present Illness Gabino Jones is a 66 year old male presenting to the hospital with 4 to 5 days of increased shortness of breath, wheezing. He has been coughing up purulent yellow sputum. He denies any hemoptysis. He did have some vomiting last night. No diarrhea. No ill contacts that he is aware of. Has past medical history of prostate cancer. He believes he had some fever at home but did not take his temperature. Review of Systems General: Reports: 10 or more systems reviewed and unremarkable except in HPI and below Const: Reports: fever(s), chills, fatigue and malaise Eyes: Denies: change in vision ENMT: Denies: throat pain Card: Denies: chest pain Resp: Reports: dyspnea, productive cough and wheezing; Denies: hemoptysis GI: Reports: nausea and vomiting; Denies: abdominal pain : Denies: flank pain Musc: Denies: neck pain Skin/Breast: Denies: rash Neuro: Denies: headache(s) Psych: Denies: anxiety or depression Endo: Denies: polyuria Chavez/Lymph: Denies: easy bruising All/Imm: Denies: urticaria Medications/Allergies Home Medications Medication Instructions Recorded Confirmed Last Taken Type albuterol sulfate 90 mcg/actuation 2 puff inhalation Q6H PRN 09/25/19 06/06/22 04/18/22 05:00 History aerosol inhaler Shortness Of Breath ipratropium 0.5 mg-albuterol 3 mg 3 ml inhalation Q6H PRN Shortness 09/25/19 06/06/22 04/18/22 08:00 History (2.5 mg base)/3 mL nebulization Of Breath soln apixaban 5 mg tablet (Eliquis) 5 mg PO BID #60 tabs 10/16/19 06/06/22 04/14/22 Rx atorvastatin 20 mg tablet 10 mg PO BEDTIME 10/27/19 06/06/22 04/16/22 History digoxin 250 mcg (0.25 mg) tablet 250 mcg PO DAILY #30 tabs 01/22/20 06/06/22 04/17/22 Rx metoprolol tartrate 50 mg tablet 75 mg PO BID #90 tabs 01/22/20 06/06/22 04/18/22 03:00 Rx omeprazole 20 mg capsule,delayed 40 mg PO DAILY 10/04/20 06/06/22 04/18/22 03:00 History release furosemide 40 mg tablet (Lasix) 40 mg PO QAM 03/28/21 06/06/22 04/17/22 History nitroglycerin 0.4 mg sublingual 0.4 mg sublingual Q5M PRN Chest 03/28/21 06/06/22 04/15/22 History tablet (Nitrostat) Pain potassium chloride 20 mEq 10 meq PO DAILY 03/28/21 06/06/22 04/18/22 03:00 History tablet,extended release docusate sodium 100 mg capsule 100 mg PO DAILY PRN Constipation 04/26/21 06/06/22 04/15/22 History (Stool Softener) tiotropium bromide 2.5 2 inh inhalation QAM 04/26/21 06/06/22 04/18/22 03:00 History mcg/actuation mist for inhalation (Spiriva Respimat) cholecalciferol (vitamin D3) 10 10 mcg PO DAILY 08/29/21 06/06/22 04/17/22 History mcg (400 unit) capsule aspirin 325 mg tablet 325 mg PO DAILY 01/10/22 06/06/22 04/14/22 History levothyroxine 100 mcg tablet 50 mcg PO DAILY 01/10/22 06/06/22 04/17/22 History (Levoxyl) tamsulosin 0.4 mg capsule (Flomax) 0.4 mg PO .qhs #30 caps 03/19/22 06/06/22 04/17/22 Rx dexamethasone 4 mg tablet 8 mg PO BID #12 tabs 04/23/22 06/06/22 Unknown Rx hydrocodone 5 mg-acetaminophen 325 2 tab PO Q4H PRN pain 5 days #60 05/02/22 06/06/22 Unknown Rx mg tablet tabs levofloxacin 500 mg tablet 500 mg PO DAILY 7 days #7 tabs 05/02/22 06/06/22 Unknown Rx loratadine 10 mg tablet 10 mg PO DAILY #30 tabs 05/02/22 06/06/22 Unknown Rx lorazepam 1 mg tablet 0.5 mg PO Q6H PRN Severe Nausea 05/02/22 06/06/22 Unknown Rx #10 tabs prochlorperazine maleate 10 mg 10 mg PO Q4H PRN Mild Nausea #30 05/02/22 06/06/22 Unknown Rx tablet (Compazine) tabs prednisone 5 mg tablet 5 mg PO DAILY #30 tabs 05/16/22 06/06/22 Unknown Rx abiraterone 250 mg tablet 250 mg PO DAILY #30 tabs 06/14/22 Unknown Rx Allergies Allergy/AdvReac Type Severity Reaction Status Date / Time No Known Allergies Allergy Verified 06/06/22 11:18 PFSH Acute PFSH: Medical History Anemia Atrial fibrillation CHF (congestive heart failure) Last echocardiogram normal EF, grade 2/4 diastolic dysfunction October 2019 Chronic anticoagulation eliquis, for afib Chronic respiratory failure with hypoxia Colon polyps COPD (chronic obstructive pulmonary disease) Coronary artery disease Coronary artery disease Elevated PSA GERD (gastroesophageal reflux disease) Heart failure with preserved ejection fraction History of colon polyps Hyperlipidemia Hypertension Hypothyroidism Prostate cancer Surgical History History of colonoscopy (~04/2020) History of coronary artery bypass graft (03/2019) [address] [place] [address] History of knee surgery History of vasectomy S/P appendectomy S/P cholecystectomy Family History Father , IN HIS 50'S Lung disease tuberculosis Mother , AT AGE 63 CAD (coronary artery disease) Diabetes Hypertension Sister Cancer Denies family history of Clotting disorder Dementia Hyperlipidemia Psychiatric illness Chronic kidney disease (CKD) Suicide Anesthesia complication Bleeding disorder Stroke Social History Smoking and tobacco status: never smoked Quit status (tobacco): has quit using tobacco Year quit tobacco: 2017 - PPD x 52 Years Alcohol intake: never Counseling given: No Lives independently: Yes Household members: none Marital status: Legally Current occupational status: employed and retired History of recent travel: No Current gender identity: Male Vitals/I&O/Wt Last Vital Signs Temp 100 F H 06/25/22 09:03 Pulse 111 H 06/25/22 10:24 Resp 16 06/25/22 10:24 BP 157/93 06/25/22 09:14 Pulse Ox 96 06/25/22 10:24 O2 Del Method 06/25/22 10:24 O2 Flow Rate 2.5 06/25/22 10:24 Weight last 48 hrs Weight 92.986 kg Physical Exam Narrative: General exam demonstrates a conversive male, purulent sputum cup at bedside, audibly wheezing HEENT: Atraumatic normocephalic. Pupils equally round. Oropharynx clear. Neck is supple no lymphadenopathy thyromegaly Cardiovascular regular rate and rhythm without murmur, no S3 or S4 Lungs bilateral expiratory wheezing, no crackles Abdomen soft nontender positive bowel sounds. No obvious organomegaly exams deferred Extremities no cyanosis clubbing edema, cap refill brisk. Skin no rash Neuro no obvious focal deficits. Data 06/25/22 09:30 06/25/22 09:30 Other Labs: Calcium 8.2, LFTs normal, troponin 45 with repeat of 46. COVID PCR pending. Influenza negative. Chest x-ray demonstrates previous bypass surgery, right IJ port, right middle lung pneumonia Blood and sputum cultures have been ordered EKG demonstrates sinus rhythm, left axis deviation, right bundle branch block A&P Assessment and plan (1) Community acquired pneumonia: Patient with evidence of community-acquired pneumonia IV antibiotics initiated consisting of Levaquin Sputum and blood cultures drawn Other treatment as noted below under COPD exacerbation Await COVID PCR (2) COPD exacerbation: Patient has COPD exacerbation with active wheezing, requiring more oxygen than his typical baseline of 2 L DuoNeb every 4 hours Budesonide twice daily Solu-Medrol 40 mg every 12 hours Plan Mild hyponatremia, continue to follow anemia and leukopenia. Some element of this appears chronic Prostate cancer, currently being treated with hormonal treatments/therapy Coronary disease, asymptomatic currently Attestations Medical Necessity Statement*: Will require greater than 2 midnight stay for evaluation and treatment of COPD exacerbation as well as pneumonia requiring significant amount of oxygen above baseline 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 of Care Code Acute Code for [facility] Diagnoses Community acquired pneumonia J18.9 COPD exacerbation J44.1
--- NOTE | 2022-06-25 11:08 | ECG_ITS ---
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 Measurements Intervals [place] Rate: 108 P: 85 VA: 174 QRS: -3 QRSD: 130 T: 75 QT: 368 QTc: 495 Interpretive Statements SINUS TACHYCARDIA RIGHT BUNDLE BRANCH BLOCK [120+ ms QRS DURATION, UPRIGHT V1, 40+ ms S IN I/aVL/V4/V5/V6] INFERIOR MYOCARDIAL INFARCTION , OF INDETERMINATE AGE [40+ ms Q WAVE AND/OR ST/T ABNORMALITY IN II/aVF] ST DEVIATION AND MARKED T-WAVE ABNORMALITY, CONSIDER ANTEROLATERAL ISCHEMIA [-0.5+ mV T-WAVE IN I/aVL/V3-V6] Compared to ECG 06/25/2022 11:08:32 Myocardial infarct finding now present T-wave abnormality now present Possible ischemia now present ST (T wave) deviation no longer present Electronically Signed On 06-26-2022 7:49:17 HOUSEKEEPING MANAGER by Favio Ferguson M.D. [id number]
[2022-06-25] MEDS: levofloxacin-dextrose 5 % 750 MG/150 ML PREMIX 100 MG IV (11:13)
[2022-06-25 11:52] LABS: Troponin 5 2HR 46.28 ng/L (0-15)
[2022-06-25 11:54] LABS: Influenza A by IFA negative (Negative); Influenza B by IFA negative (Negative)
[2022-06-25 11:54] LABS: Troponin 5 2HR Delta 1.28 ABS# (0-10)
--- NOTE | 2022-06-25 12:35 | PC.NURSE ---
PT PLACED ON CONTINUOUS NIBP, SPO2, AND CM
[2022-06-25 13:21] LABS: Adenovirus Not Detected (NOT DETECT); Chlamydia Pneumoniae Not Detected (NOT DETECT); Coronavirus 229E,HKU1,NL63,OC4 Not Detected (NOT DETECT); Human Metapneumovirus Detected (NOT DETECT); Human Rhinovirus/Enterovirus Not Detected (NOT DETECT); Influenza A Not Detected (NOT DETECT); Influenza A H1 Not Detected (NOT DETECT); Influenza A H1-2009 Not Detected (NOT DETECT); Influenza A H3 Not Detected (NOT DETECT); Influenza B Not Detected (NOT DETECT); Mycoplasma Pneumoniae Not Detected (NOT DETECT); Parainfluenza Virus Type 1 Not Detected (NOT DETECT); Parainfluenza Virus Type 2 Not Detected (NOT DETECT); Parainfluenza Virus Type 3 Not Detected (NOT DETECT); Parainfluenza Virus Type 4 Not Detected (NOT DETECT); Respiratory Syncytial Virus A Not Detected (NOT DETECT); Respiratory Syncytial Virus B Not Detected (NOT DETECT); SARS-COV-2 Not Detected (NOT DETECT)
[2022-06-25 13:27] LABS: Human Metapneumovirus Detected (NOT DETECT); Human Rhinovirus/Enterovirus Not Detected (NOT DETECT); Results from GEN
--- NOTE | 2022-06-25 15:08 | ECG_ITS ---
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 Measurements Intervals [place] Rate: 89 P: 84 NM: 197 QRS: 49 QRSD: 138 T: 81 QT: 425 QTc: 519 Interpretive Statements SINUS RHYTHM INTRAVENTRICULAR CONDUCTION DELAY [130+ ms QRS DURATION] Compared to ECG 06/25/2022 11:48:17 Intraventricular conduction delay now present Sinus tachycardia no longer present Right bundle-branch block no longer present Myocardial infarct finding no longer present T-wave abnormality no longer present Possible ischemia no longer present Electronically Signed On 06-26-2022 7:48:50 TRASH COLLECTOR TRUCK DRIVER by Favio Ferguson M.D. [id number]
[2022-06-25 16:27] LABS: Troponin 5 6HR 34.41 ng/L (0-15)
[2022-06-25 16:29] LABS: Troponin 5 6HR Delta -10.59 ng/L (0-12)
--- NOTE | 2022-06-25 16:45 | PC.NURSE ---
PT CURRENTLY RESTING IN BED. PT ASLEEP BUT RESPONDS QUICKLY TO VERBAL STIMULI. CHEST RISE AND FALL EQUAL AND SYMMETRICAL.
[2022-06-25] MEDS: apixaban 5 mg Tablet PO (17:56)
[2022-06-25] MEDS: metoprolol tartrate 50 mg Tablet 75 MG PO (17:56)
[2022-06-25] MEDS: atorvastatin 40 mg Tablet 20 MG PO (20:41)
[2022-06-25] MEDS: tamsulosin 0.4 mg Capsule PO (20:41)
[2022-06-25] MEDS: budesonide 0.5 mg/2 mL Neb INHALATION (21:49)
[2022-06-26] VITALS (12 sets, daily range): BP systolic 129–162; BP diastolic 68–82; PULSE 70–102; RESP 15–20; TEMP 36.4–36.6; O2SAT 91–96
[2022-06-26] MEDS: ipratropium 0.5 mg/2.5 mL Neb INHALATION ×5 (00:15→21:27)
[2022-06-26] MEDS: albuterol 2.5 mg/3 mL Neb INHALATION ×6 (00:16→21:28)
[2022-06-26] MEDS: FUROsemide 40 mg Tablet PO (05:24)
[2022-06-26 05:42] LABS: Hematocrit 33.5 % (42.0-52.0); Hemoglobin 10.5 g/dL (11.7-16.6); Lymphocytes # 0.2 10^3/uL (0.8-4.8); Lymphocytes % 11.5 %; Mean Corpuscular HGB Conc 31.3 g/dL (30.0-36.0); Mean Corpuscular Hemoglobin 28.1 pg (28.0-34.0); Mean Corpuscular Volume 89.6 fl (80-94); Mean Platelet Volume 9.7 fL (7.4-10.4); Monocytes # 0.1 10^3/uL (0.2-0.9); Monocytes % 7.6 %; Neutrophils # 1.27 10^3/uL (1.8-7.7); Neutrophils % 80.9 %; Nucleated Red Blood Cells % 0 %; Platelet Count 164 10^3/cmm (130-400); Red Blood Count 3.74 10^6/uL (4.1-5.3); Red Cell Distribution Width 15.2 % (12.1-15.1); White Blood Count 1.6 10^3/uL (4.0-10.0)
[2022-06-26 06:13] LABS: Blood Urea Nitrogen 22 mg/dL (8-23); Calcium 8.6 mg/dL (8.5-10.5); Carbon Dioxide 26 mmol/L (22-29); Chloride 99 mmol/L (98-107); Glomerular Filtration Rate 112.5 mL/min (90-130); Glucose 179 mg/dL (65-115); Osmolality Calculated 288 mOsm/kg (285-295); Sodium 135 mmol/L (136-145)
--- NOTE | 2022-06-26 08:40 | P.PN_ITS ---
Subjective Subjective: Gabino reports he is feeling okay. Still coughing up quite a bit of yellowish substance. Does not feel too short of breath on the oxygen. Still wheezing. Medications: Reviewed: Yes Vitals/I&O/Wt Last Vital Signs Temp 97.8 F 06/26/22 08:00 Pulse 85 06/26/22 08:00 Resp 18 06/26/22 08:00 BP 162/82 06/26/22 08:00 Pulse Ox 95 06/26/22 08:00 O2 Del Method 06/26/22 08:00 O2 Flow Rate 2.5 06/26/22 03:29 06/25/22 06/26/22 06/26/22 22:59 06:59 14:59 Intake Total 150 / 150 240 / 390 Balance 150 / 150 240 / 390 Weight last 48 hrs Weight 92.986 kg Physical Exam 2 Narrative: General exam no distress, but audible wheezing, currently on 3 L of oxygen higher than his baseline. Neck is supple no lymphadenopathy thyromegaly Cardiovascular regular rate and rhythm without murmur, no S3 or S4 Lungs bilateral expiratory wheezing, no crackles Abdomen soft nontender positive bowel sounds. No obvious organomegaly exams deferred Extremities no cyanosis clubbing edema, cap refill brisk. Skin no rash Data 06/26/22 04:26 06/26/22 04:26 Micro: Microbiology 06/25/22 11:09 Gram Stain - Final Sputum - Expectorated Sputum 06/25/22 10:39 Blood Culture - Preliminary Blood SPECIMEN COLLECTED 06/25/22 10:37 Blood Culture - Preliminary Blood SPECIMEN COLLECTED A&P Assessment and plan (1) Community acquired pneumonia: Patient with evidence of community-acquired pneumonia Continue IV antibiotics initiated consisting of Levaquin Sputum and blood cultures drawn Sputum also positive for metapneumovirus Other treatment as noted below under COPD exacerbation COVID PCR was negative (2) COPD exacerbation: Patient has COPD exacerbation with active wheezing, requiring more oxygen than his typical baseline of 2 L Continue DuoNeb every 4 hours Continue budesonide twice daily Change Solu-Medrol to prednisone Plan Mild hyponatremia, continue to follow. Improved anemia and leukopenia. Some element of this appears chronic. Leukopenia slightly worse Prostate cancer, currently being treated with hormonal treatments/therapy Coronary disease, asymptomatic currently Attestations Medical Necessity Statement*: Needs continued hospitalization for IV antibiotics secondary to pneumonia, frequent breathing treatments needed for COPD exacerbation 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 of Care Code Acute Code for [facility] Diagnoses Community acquired pneumonia J18.9 COPD exacerbation J44.1
[2022-06-26] MEDS: pantoprazole DR 40 mg Tablet PO (08:58)
[2022-06-26] MEDS: aspirin 325 mg Tablet PO (08:58)
[2022-06-26] MEDS: apixaban 5 mg Tablet PO ×2 (08:58→17:04)
[2022-06-26] MEDS: loratadine 10 mg Tablet PO (08:58)
[2022-06-26] MEDS: potassium chloride ER 10 mEq Tablet PO (08:58)
[2022-06-26] MEDS: digoxin 250 mcg Tablet PO (08:59)
[2022-06-26] MEDS: levothyroxine 125 mcg Tablet PO (08:59)
[2022-06-26] MEDS: metoprolol tartrate 50 mg Tablet 75 MG PO ×2 (09:00→17:02)
[2022-06-26 09:09] LABS: Digoxin 0.8 ng/mL (0.6-1.2)
[2022-06-26] MEDS: budesonide 0.5 mg/2 mL Neb INHALATION ×2 (09:11→21:27)
[2022-06-26] MEDS: levofloxacin-dextrose 5 % 750 MG/150 ML PREMIX 100 MG IV (09:31)
[2022-06-26] MEDS: predniSONE 20 mg Tablet 40 MG PO (09:31)
--- NOTE | 2022-06-26 13:26 | PC.CHAP ---
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 machine operator plasma arc visit [] Patient/Family/Request visit [] Outpatient visit [] Follow-up visit [] Physician referral [] Code/Alert x[] Routine visit [] Staff referral [] Actively dying x[] Patient sleeping [] Family support [] [] Out of room [] Palliative care [] [] Receiving care in room [] Pre-surgical visit [] Trauma [] Long length of stay [] ICU visit [] Other: Relational/Emotional Strength [] Patient feels connected with others/family/visitors/staff [] Distress [] Loneliness/isolation [] Abandonment Spirituality of Patient [] Person of Kamryn [] Attends Muslim of their Kamryn [] Believes in Prayer [] Reads Bible or Presybeterian materials [] There are Spiritual issues to be addressed Egyptologist Interventions [] Prayer [] Active listening [] Non-anxious presence [] Spiritual/emotional support [] Crisis/trauma care [] Spiritual counseling [] Bereavement support [] Provided bereavement packet [] Provided Bible/devotional materials [] Provided toy/stuffed animal, coloring book to patient or family member [] Provided Communion [] Anointing/Seminary [] Salvation [] Completed spiritual assessment [] Other: Impact on Illness or Injury [] Angry [] Fearful [] Anxious [] Often cries [] Exhaustion [] Unable to work [] Unable to attend catholic [] Unable to walk/stand [] Unable to read [] Unable to drive [] Unable to eat/drink [] Unable to sleep [] Unable to be with family [] Patient intubated [] Other: Summary Time spent with patient
--- NOTE | 2022-06-26 14:43 | PC.NURSE ---
Pt has home medication of abiraterone 250mg, but is unable to have anyone bring this to him from home. I spoke with Eduarda at [facility] who is going to speak with Dr. Tatum to see if it's ok for pt to be off of this while admitted. She is to call me back to let me know what Dr. Tatum decided.
[2022-06-26] MEDS: atorvastatin 40 mg Tablet 20 MG PO (20:15)
[2022-06-26] MEDS: tamsulosin 0.4 mg Capsule PO (20:15)
[2022-06-27] VITALS (21 sets, daily range): BP systolic 103–148; BP diastolic 58–80; PULSE 75–106; RESP 16–22; TEMP 36.3–37.1; O2SAT 91–99
[2022-06-27] MEDS: ipratropium 0.5 mg/2.5 mL Neb INHALATION ×7 (00:47→23:47)
[2022-06-27] MEDS: albuterol 2.5 mg/3 mL Neb INHALATION ×7 (00:47→23:47)
[2022-06-27 04:41] LABS: Hematocrit 33.6 % (42.0-52.0); Hemoglobin 10.4 g/dL (11.7-16.6); Lymphocytes # 0.4 10^3/uL (0.8-4.8); Lymphocytes % 8.7 %; Mean Corpuscular Hemoglobin 27.9 pg (28.0-34.0); Mean Corpuscular Volume 90.1 fl (80-94); Mean Platelet Volume 9.1 fL (7.4-10.4); Monocytes # 0.3 10^3/uL (0.2-0.9); Monocytes % 6.2 %; Neutrophils # 4.08 10^3/uL (1.8-7.7); Neutrophils % 84.5 %; Nucleated Red Blood Cells % 0 %; Platelet Count 188 10^3/cmm (130-400); Red Blood Count 3.73 10^6/uL (4.1-5.3); Red Cell Distribution Width 15.2 % (12.1-15.1); White Blood Count 4.8 10^3/uL (4.0-10.0)
[2022-06-27 04:56] LABS: Blood Urea Nitrogen 44 mg/dL (8-23); Calcium 9.3 mg/dL (8.5-10.5); Carbon Dioxide 30 mmol/L (22-29); Chloride 100 mmol/L (98-107); Glomerular Filtration Rate 96.4 mL/min (90-130); Glucose 182 mg/dL (65-115); Osmolality Calculated 298 mOsm/kg (285-295); Sodium 136 mmol/L (136-145)
[2022-06-27] MEDS: FUROsemide 40 mg Tablet PO (05:12)
[2022-06-27] MEDS: budesonide 0.5 mg/2 mL Neb INHALATION ×2 (07:17→20:23)
[2022-06-27] MEDS: loratadine 10 mg Tablet PO (08:21)
[2022-06-27] MEDS: digoxin 250 mcg Tablet PO (08:21)
[2022-06-27] MEDS: aspirin 325 mg Tablet PO (08:21)
[2022-06-27] MEDS: levothyroxine 125 mcg Tablet PO (08:22)
[2022-06-27] MEDS: apixaban 5 mg Tablet PO ×2 (08:22→17:49)
[2022-06-27] MEDS: predniSONE 20 mg Tablet 40 MG PO (08:22)
[2022-06-27] MEDS: pantoprazole DR 40 mg Tablet PO (08:23)
--- NOTE | 2022-06-27 08:25 | PM.PN ---
Subjective Subjective: Gabino reports he still wheezing quite a bit. Feels very winded when he gets up and around. Still coughing up sputum. Medications: Reviewed: Yes Vitals/I&O/Wt Last Vital Signs Temp 97.9 F 06/27/22 07:16 Pulse 106 H 06/27/22 08:21 Resp 18 06/27/22 07:18 BP 133/72 06/27/22 07:16 Pulse Ox 93 06/27/22 07:18 O2 Del Method 06/27/22 07:18 O2 Flow Rate 3 06/27/22 07:18 Weight last 48 hrs Weight 92.986 kg Physical Exam Narrative: General exam no distress, currently on 3 L Neck is supple no lymphadenopathy thyromegaly Cardiovascular regular rate and rhythm without murmur, no S3 or S4 Lungs bilateral expiratory wheezing, no crackles Abdomen soft nontender positive bowel sounds. No obvious organomegaly exams deferred Extremities no cyanosis clubbing edema, cap refill brisk. Skin no rash Data 06/27/22 04:10 06/27/22 04:10 Micro: Microbiology 06/25/22 11:09 Gram Stain - Final Sputum - Expectorated Sputum Sputum Culture - Preliminary 06/25/22 10:37 Blood Culture - Preliminary Blood NEGATIVE TO DATE 06/25/22 10:39 Blood Culture - Preliminary Blood NEGATIVE TO DATE A&P Assessment and plan (1) Community acquired pneumonia: Patient with evidence of community-acquired pneumonia Continue IV antibiotics initiated consisting of Levaquin Sputum and blood cultures drawn Sputum also positive for metapneumovirus Other treatment as noted below under COPD exacerbation COVID PCR was negative Still with shortness of breath above baseline and oxygen requirement above baseline (2) COPD exacerbation: Patient has COPD exacerbation with active wheezing, requiring more oxygen than his typical baseline of 2 L Continue DuoNeb every 4 hours Continue budesonide twice daily Continue prednisone Plan Mild hyponatremia, continue to follow. Resolved anemia and leukopenia. Some element of this appears chronic. Leukopenia improved Prostate cancer, currently being treated with hormonal treatments/therapy Coronary disease, asymptomatic currently No need for laboratory tomorrow Apixaban for DVT prophylaxis Hopefully will improve enough to discharge tomorrow Attestations Medical Necessity Statement*: Needs continued hospital stay for IV antibiotics for pneumonia, treatment for COPD exacerbation with frequent nebs, prednisone, oxygen 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 of Care Code Acute Code for Chg Fwd Diagnoses Community acquired pneumonia J18.9 COPD exacerbation J44.1
[2022-06-27] MEDS: metoprolol tartrate 50 mg Tablet 75 MG PO ×2 (08:43→17:49)
[2022-06-27] MEDS: potassium chloride ER 10 mEq Tablet PO (08:44)
[2022-06-27] MEDS: levofloxacin-dextrose 5 % 750 MG/150 ML PREMIX 100 MG IV (08:46)
[2022-06-27] MEDS: tamsulosin 0.4 mg Capsule PO (20:15)
[2022-06-27] MEDS: atorvastatin 40 mg Tablet 20 MG PO (20:15)
[2022-06-28] VITALS (10 sets, daily range): BP systolic 128–154; BP diastolic 52–75; PULSE 70–88; RESP 16–20; TEMP 36.4–36.7; O2SAT 93–99
[2022-06-28] MEDS: ipratropium 0.5 mg/2.5 mL Neb INHALATION ×3 (03:24→11:04)
[2022-06-28] MEDS: albuterol 2.5 mg/3 mL Neb INHALATION ×3 (03:24→11:04)
[2022-06-28] MEDS: budesonide 0.5 mg/2 mL Neb INHALATION (07:10)
[2022-06-28] MEDS: pantoprazole DR 40 mg Tablet PO (07:49)
[2022-06-28] MEDS: loratadine 10 mg Tablet PO (07:49)
[2022-06-28] MEDS: aspirin 325 mg Tablet PO (07:50)
[2022-06-28] MEDS: apixaban 5 mg Tablet PO (07:50)
[2022-06-28] MEDS: metoprolol tartrate 50 mg Tablet 75 MG PO (07:50)
[2022-06-28] MEDS: potassium chloride ER 10 mEq Tablet PO (07:52)
[2022-06-28] MEDS: digoxin 250 mcg Tablet PO (07:52)
[2022-06-28] MEDS: predniSONE 20 mg Tablet 40 MG PO (07:52)
[2022-06-28] MEDS: levofloxacin-dextrose 5 % 750 MG/150 ML PREMIX 100 MG IV (07:53)
[2022-06-28] MEDS: levothyroxine 125 mcg Tablet PO (07:54)
[2022-06-28] MEDS: FUROsemide 40 mg Tablet PO (08:07)
--- NOTE | 2022-06-28 08:23 | P.DS_ITS ---
Discharge Providers Date of Admission: 06/25/22 18:03 Date of Discharge: June 28, 2022 Attending Provider at Admission: Corwin Martini MD Attending Provider at Discharge: Corwin Martini MD Primary Care Provider: PATO Hernandez Diagnoses at Discharge Discharge Diagnosis (1) Community acquired pneumonia: Status: Acute (2) COPD exacerbation: Status: Acute Reason for Visit Reason for Visit: SOB/ CHEST PAIN X 2 DAYS Hospital Course Hospital Course Gabino is a 66-year-old white male who presented to the hospital with shortness of breath. He was found to have pneumonia on x-ray, metapneumovirus on sputum analysis, and an acute COPD exacerbation. He was placed on steroids, IV antibiotics, and received pulmonary toilet through inhaled steroids and DuoNeb. With these actions he had gradual improvement, and was able to eventually wean back down to his baseline oxygen requirement of 2 L. On June 28 it was thought he could be discharged home, with follow-up with his primary care provider. Consideration should be given to repeat his chest x-ray to follow-up pneumonia in 2 to 4 weeks. He was given an opportunity to ask questions, and agreed with the plan. Sputum was growing strep pyogenes at discharge, which should have excellent coverage with Levaquin. Physical Exam Narrative: General exam no distress Neck is supple no lymphadenopathy thyromegaly Cardiovascular regular rate and rhythm without murmur Lungs bilateral faint expiratory wheezes. Excellent air expansion Abdomen is soft with positive bowel sounds Extremities no cyanosis clubbing or edema, cap refill brisk Skin no rash. Discharge Data Studies Completed and Pending Completed Studies During Hospitalization Category Date Time Status XR chest 1V portable [id number] Stat Exams 06/25/22 09:07 Completed Pending at discharge Category Date Time Status Blood Culture Stat Lab 06/25/22 10:39 Results Sputum Culture and Gram Stain Stat Lab 06/25/22 11:09 Results Radiology Impressions Chest X-Ray 06/25/22 09:07 IMPRESSION: 1. Patchy airspace and interstitial pneumonia in the mid and lower right lung. 2. Changes of bullous emphysema and interstitial fibrosis in both lungs. 3. Right IJ port remaining in satisfactory location. Laboratory Results WBC 4.8 10^3/uL (4.0-10.0) 06/27/22 04:10 RBC 3.73 10^6/uL (4.1-5.3) L 06/27/22 04:10 Hgb 10.4 g/dL (11.7-16.6) L 06/27/22 04:10 Hct 33.6 % (42.0-52.0) L 06/27/22 04:10 MCV 90.1 fl (80-94) 06/27/22 04:10 MCH 27.9 pg (28.0-34.0) L 06/27/22 04:10 MCHC 31.0 g/dL (30.0-36.0) 06/27/22 04:10 RDW 15.2 % (12.1-15.1) H 06/27/22 04:10 Plt Count 188 10^3/cmm (130-400) 06/27/22 04:10 MPV 9.1 fL (7.4-10.4) 06/27/22 04:10 Neut % (Auto) 84.5 % 06/27/22 04:10 Lymph % (Auto) 8.7 % 06/27/22 04:10 Glenn % (Auto) 6.2 % 06/27/22 04:10 Eos % (Auto) 0.0 % 06/27/22 04:10 Baso % (Auto) 0.0 % 06/27/22 04:10 Neut # (Auto) 4.08 10^3/uL (1.8-7.7) 06/27/22 04:10 Lymph # (Auto) 0.4 10^3/uL (0.8-4.8) L 06/27/22 04:10 Glenn # (Auto) 0.3 10^3/uL (0.2-0.9) 06/27/22 04:10 Eos # (Auto) 0.0 10^3/uL (0.0-0.8) 06/27/22 04:10 Baso # (Auto) 0.0 10^3/uL (0.0-0.1) 06/27/22 04:10 Nucleated RBC % (auto) 0 % 06/27/22 04:10 Nucleated RBCs # 0.0 /100WBC 06/27/22 04:10 Sodium 136 mmol/L (136-145) 06/27/22 04:10 Potassium 4.0 mmol/L (3.5-5.1) 06/27/22 04:10 Chloride 100 mmol/L (98-107) 06/27/22 04:10 Carbon Dioxide 30 mmol/L (22-29) H 06/27/22 04:10 Anion Gap 10.0 (5-19) 06/27/22 04:10 BUN 44 mg/dL (8-23) H 06/27/22 04:10 Creatinine 0.8 mg/dL (0.7-1.2) 06/27/22 04:10 GFR Calculation 96.4 mL/min (90-130) 06/27/22 04:10 Glucose 182 mg/dL (65-115) H 06/27/22 04:10 Calculated Osmolality 298 mOsm/kg (285-295) H 06/27/22 04:10 Calcium 9.3 mg/dL (8.5-10.5) 06/27/22 04:10 Total Bilirubin 0.9 mg/dL (0.15-1.2) 06/25/22 09:30 AST 17 U/L (0-40) 06/25/22 09:30 ALT 11 U/L (0-41) 06/25/22 09:30 Alkaline Phosphatase 85 U/L (40-130) 06/25/22 09:30 Troponin T Baseline 45 ng/L (0-15) H 06/25/22 09:30 Troponin T 120 Minute 46.28 ng/L (0-15) H 06/25/22 11:25 Delta Troponin T 1.28 ABS# (0-10) 06/25/22 11:25 Troponin T Hi Sens 6Hr 34.41 ng/L (0-15) H 06/25/22 15:48 Troponin T Hi Sens 6Hr Delta -10.59 ng/L (0-12) L 06/25/22 15:48 Total Protein 7.0 g/dL (6.6-8.7) 06/25/22 09:30 Albumin 3.9 g/dL (3.5-5.2) 06/25/22 09:30 Globulin 3.1 g/dL (1.3-4.6) 06/25/22 09:30 Digoxin 0.8 ng/mL (0.6-1.2) 06/26/22 04:26 Coronavirus 229E (PCR) Not detected (NOT DETECT) 06/25/22 11:09 Human Metapneumovir PCR Detected (NOT DETECT) A 06/25/22 13:27 Influenza Type A Ag negative (Negative) 06/25/22 11:09 Influenza Type B Ag negative (Negative) 06/25/22 11:09 Entero/Rhino (PCR) Not detected (NOT DETECT) 06/25/22 13:27 SARS-CoV-2 (PCR) Not detected (NOT DETECT) 06/25/22 11:09 Vitals Last Vital Signs Temp 97.6 F 06/28/22 04:00 Pulse 86 06/28/22 07:52 Resp 16 06/28/22 07:13 BP 154/75 06/28/22 04:00 Pulse Ox 97 06/28/22 07:13 O2 Del Method 06/28/22 07:13 O2 Flow Rate 2 06/28/22 08:02 Discharge Plan Discharge Patient Disposition: Home Condition: Stable Prescriptions: New prednisone 20 mg Tablet 40 mg PO DAILY Qty: 6 0RF levofloxacin 750 mg tablet 750 mg PO DAILY 7 Days Qty: 7 0RF budesonide 0.5 mg/2 mL Suspension For Nebulization 0.5 mg inhalation BID.RESPIRATORY Qty: 120 0RF Continued cholecalciferol (vitamin D3) 10 mcg (400 unit) capsule 10 mcg PO DAILY hydrocodone-acetaminophen 5-325 mg tablet 2 tab PO Q4H PRN (Reason: pain) 5 Days Qty: 60 0RF Rx Instructions: 1-2 tabs every 4 hours prn pain loratadine 10 mg tablet 10 mg PO DAILY Qty: 30 0RF prochlorperazine maleate [Compazine] 10 mg tablet 10 mg PO Q4H PRN (Reason: Mild Nausea) Qty: 30 0RF Rx Instructions: Bill to [facility] emergency fund lorazepam 1 mg tablet 0.5 mg PO Q6H PRN (Reason: Severe Nausea) Qty: 10 3RF Rx Instructions: 1-2 tabs prn seer nausea or sleep bill to [facility] emergency fund please prednisone 5 mg tablet 5 mg PO DAILY Qty: 30 6RF aspirin 325 mg tablet 325 mg PO DAILY Hold Instructions: Resume on 04/24/22. abiraterone 250 mg tablet 250 mg PO DAILY Qty: 30 0RF Rx Instructions: must be taken on empty stomach, at least 1 hr before or 2 hrs after a meal/food ipratropium-albuterol 0.5 mg-3 mg(2.5 mg base)/3 mL Solution For Nebulization 3 ml INHALATION Q6H PRN (Reason: Shortness Of Breath) albuterol sulfate 90 mcg/actuation Hfa Aerosol Inhaler 2 puff INHALATION Q6H PRN (Reason: Shortness Of Breath) atorvastatin 20 mg tablet 10 mg PO BEDTIME Eliquis 5 mg Tablet 5 mg PO BID Qty: 60 0RF Hold Instructions: Resume on 04/21/22. omeprazole 20 mg capsule,delayed release(DR/EC) 40 mg PO DAILY digoxin 250 mcg (0.25 mg) Tablet 250 mcg PO DAILY Qty: 30 0RF metoprolol tartrate 50 mg Tablet 75 mg PO BID Qty: 90 0RF docusate sodium [Stool Softener] 100 mg capsule 100 mg PO DAILY PRN (Reason: Constipation) nitroglycerin [Nitrostat] 0.4 mg Tablet, Sublingual 0.4 mg SUBLINGUAL Q5M PRN (Reason: Chest Pain) Rx Instructions: FOR 3 DOSES potassium chloride 20 mEq Tablet Extended Release 10 meq PO DAILY furosemide [Lasix] 40 mg tablet 40 mg PO QAM Flomax 0.4 mg Capsule 0.4 mg PO DAILY levothyroxine 125 mcg Tablet 125 mcg PO DAILY olodaterol 2.5 mcg/actuation Mist 2 inh INHALATION DAILY Discontinued Spiriva Respimat 2.5 mcg/actuation mist 2 inh INHALATION QAM Discharge Orders: Discharge Order (Routine); Ordered 06/28/22 Ordered By: Corwin Martini Referrals: Isela Gipson FNP [Primary Care Provider] - 4-7 days Discharge Diet: Cardiac Discharge Activity: Increase activity as tolerated Patient Instructions: Opioid Safety Activity Restrictions/Additional Instructions: Resume your home oxygen at 2 L. Continue DuoNeb 4 times daily Add budesonide 0.5 mg twice daily Prednisone should be 40 mg a day for 3 days, then resume your 5 mg daily Finish 7 days of antibiotic as prescribed Return for any concerns Patient's Health Concerns: Short of breath Assessment: COPD exacerbation Pneumonia Plan of Treatment: Pulmonary treatments, antibiotics Discharge Attestations Time Spent in Discharge Care*: greater than 30 min Status at Discharge: Cognitive status at discharge: cognitively intact , Behavioral status at discharge: cooperative , Quality Metrics Clinical Quality Measures [ No reported AMI, CVA or VTE this stay] 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 of Care Code Acute g [facility] note Diagnoses Community acquired pneumonia J18.9 COPD exacerbation J44.1
--- NOTE | 2022-06-28 08:36 | PC.SOCIAL ---
Pg 2 IMM Explained to pt Pg 2 IMM. No questions voiced. Provided pt a copy. Initialed, dated, & timed a copy & placed in chart.
--- NOTE | 2022-06-28 13:08 | PC.NURSE ---
Discussed discharge follow up appointments, new medications and follow up appointments. Verbalized understanding. Medication was at bedside upon discharge.
== END 2022-06-28 12:55 | disposition home or self-care (01) | DRG 190 ==
LOC: ER 11:19 → MEDSURG 18:05
PROVIDERS: Admitting Provider Internal Medicine; Emergency Provider Family Medicine; PCP Nurse Practitioner; Visit Provider Internal Medicine
DX: J44.1 Chronic obstructive pulmonary disease with (acute) exacerbation (principal); J15.4 Pneumonia due to other streptococci; J96.11 Chronic respiratory failure with hypoxia; I50.32 Chronic diastolic (congestive) heart failure; E87.1 Hypo-osmolality and hyponatremia; J44.0 Chronic obstructive pulmonary disease with (acute) lower respiratory infection; Z79.891 Long term (current) use of opiate analgesic; Z79.52 Long term (current) use of systemic steroids; Z79.51 Long term (current) use of inhaled steroids; Z79.01 Long term (current) use of anticoagulants; C61 Malignant neoplasm of prostate; Z95.828 Presence of other vascular implants and grafts; I48.91 Unspecified atrial fibrillation; I25.10 Atherosclerotic heart disease of native coronary artery without angina pectoris; Z95.1 Presence of aortocoronary bypass graft; K21.9 Gastro-esophageal reflux disease without esophagitis; I11.0 Hypertensive heart disease with heart failure; E03.9 Hypothyroidism, unspecified; Z87.891 Personal history of nicotine dependence; Z79.899 Other long term (current) drug therapy; D64.9 Anemia, unspecified
CPT/HCPCS: 36415; 71045; 80048; 80053; 80162; 84484; 85025; 87040; 87070; 87077; 87186; 87205; 87635; 87801; 87804; 93005; 94640; 96365; 96375; 99285; J1956; J2920; J2930; J7512; J7613; J7626; J7644

== ENCOUNTER 2022-07-06 07:38 | Oncology outpatient (recurring) (ONCR) | payer OTHER, SELFPAY | END 2022-07-31 23:59 | disposition home or self-care (01) | LOC: ONCMED 07:38 | PROVIDERS: PCP Nurse Practitioner; Visit Provider Nurse Practitioner | DX: Z45.2 Encounter for adjustment and management of vascular access device; Z95.828 Presence of other vascular implants and grafts | CPT/HCPCS: 96523 ==

== ENCOUNTER 2022-07-27 07:43 | Emergency (ER) | payer OTHER, SELFPAY ==
[2022-07-27 07:55] VITALS: BMI 28.7
[2022-07-27 07:58] VITALS: BP 148/67; PULSE 82; RESP 18; TEMP 37.6; O2SAT 93
--- NOTE | 2022-07-27 08:16 | XR_ITS ---
WS: [id number] Exam: XR chest 1V portable [id number] Date/Time of Exam: 07/27/2022 8:35 AM Reason For Exam: dyspnea/cough Comparison 04/18/2022. There appear to be chronic interstitial changes in the bilateral lower lobes. No acute consolidating infiltrate is noted. The lungs are hyperinflated. Mild cardiac enlargement. No pneumothorax. Signs of previous CABG surgery. A right-sided port appears to end in the lower one third of the SVC. Bony str uctures are intact. The mediastinum is normal in contour. XR/XR chest 1V portable [id number] IMPRESSION: 1. Chronic pulmonary changes but no acute process identified. 2. Pulmonary hyperinflation. Mild cardiac enlargement.
--- NOTE | 2022-07-27 08:25 | ECG_ITS ---
Test Date: 2022-07-27 Pat Name: Gabino Jones Department: Room: Gender: Male Piping Engineer: : 1955 Requested By: Job Summers Order Number: [id number] Mick MD: Mathew Sanchez M.D. Measurements Intervals [place] Rate: 79 P: 83 [place]: 175 QRS: 14 QRSD: 132 T: 56 QT: 384 QTc: 441 Interpretive Statements SINUS RHYTHM RIGHT BUNDLE BRANCH BLOCK [120+ ms QRS DURATION, UPRIGHT V1, 40+ ms S IN I/aVL/V4/V5/V6] ST DEVIATION AND MODERATE T-WAVE ABNORMALITY, CONSIDER ANTEROLATERAL ISCHEMIA [-0.1+ mV T-WAVE IN V3-V6] Compared to ECG 06/25/2022 16:02:51 Right bundle-branch block now present T-wave abnormality now present Possible ischemia now present Intraventricular conduction delay no longer present Electronically Signed On 07-27-2022 16:47:15 JET DYEING MACHINE OPERATOR by Mathew Sanchez M.D. [email or web address]
[2022-07-27 08:42] VITALS: BP 155/68; PULSE 78; RESP 14; O2SAT 99
--- NOTE | 2022-07-27 08:55 | ED_ITS ---
HPI - Fever General: Chief Complaint: Fever Stated Complaint: SOB, body chills Time Seen by Provider: 07/27/22 07:57 Source: patient Mode of arrival: ambulatory History of Present Illness: Six 6-year-old male presents emergency complaining of fever and cough for the last 4 days cough is nonproductive. He is on oral chemotherapy agents for prostate cancer. Small amount of white-donaldson sputum which is an increase of his baseline. He has expiratory wheezes but he is normally on 2 L by nasal cannula and is maintaining sats on 2 L. Associated symptoms: Deny abdominal pain, flank pain, chills, chest pain, diarrhea, dysuria, nasal congestion, nausea or vomiting Review of Systems Const: Denies: fever(s), chills, body aches, change in appetite, fatigue or malaise ENMT: Denies: throat pain, ear or mastoid pain, nasal discharge or nasal congestion Card: Denies: chest pain, palpitations, irregular heart rhythm, edema, dyspnea on exertion or orthopnea Resp: Reports: dyspnea, productive cough and wheezing; Denies: non-productive cough GI: Denies: abdominal pain, nausea, vomiting, hematemesis, coffee ground emesis, diarrhea, constipation, bloating, hematochezia or melena : Denies: flank pain, dysuria, urinary frequency or urinary urgency Skin/Breast: Denies: rash or pruritus PFSH ED PFSH: Medical History Anemia Atrial fibrillation CHF (congestive heart failure) Last echocardiogram normal EF, grade 2/4 diastolic dysfunction October 2019 Chronic anticoagulation eliquis, for afib Chronic respiratory failure with hypoxia Colon polyps COPD (chronic obstructive pulmonary disease) Coronary artery disease Coronary artery disease Elevated PSA GERD (gastroesophageal reflux disease) Heart failure with preserved ejection fraction History of colon polyps Hyperlipidemia Hypertension Hypothyroidism Prostate cancer Surgical History History of colonoscopy (~04/2020) History of coronary artery bypass graft (03/2019) [address] [place] [address] History of knee surgery History of vasectomy S/P appendectomy S/P cholecystectomy Family History Father , IN HIS 50'S Lung disease tuberculosis Mother , AT AGE 63 CAD (coronary artery disease) Diabetes Hypertension Sister Cancer Denies family history of Clotting disorder Dementia Hyperlipidemia Psychiatric illness Chronic kidney disease (CKD) Suicide Anesthesia complication Bleeding disorder Stroke Social History Smoking and tobacco status: never smoked Quit status (tobacco): has quit using tobacco Year quit tobacco: 2017 - PPD x 52 Years Alcohol intake: never Counseling given: No Lives independently: Yes Household members: none Marital status: Legally Current occupational status: employed and retired Current gender identity: Male Physical Exam Const: COMMON NORMALS: no acute distress GENERAL APPEARANCE: cooperative and comfortable ORIENTATION/CONSCIOUSNESS: Yes awake, Yes oriented to person, Yes oriented to place and Yes oriented to time HENMT: COMMON NORMALS: normocephalic, atraumatic and hearing grossly normal bilaterally HEAD & SCALP: normocephalic and atraumatic Resp: AUSCULTATION: rhonchi and wheezes Cardio: COMMON NORMALS: regular rate, regular rhythm and No murmurs present (Cardio) RATE: regular rate RHYTHM: regular rhythm GI: COMMON NORMALS: Soft to palpation and No hepatosplenomegaly present AUSCULTATION: Yes normoactive bowel sounds PALPATION: Yes Soft to palpation, No Tenderness to palpation present (GI), No Guarding due to palpation present (GI) and Yes No hepatosplenomegaly present Extremity: COMMON NORMALS: normal to inspection, capillary refill normal, no clubbing, cyanosis or edema, no calf tenderness and no pedal edema Neuro: SENSORIUM/ORIENTATION: Yes oriented to person, Yes oriented to place and Yes oriented to time Skin: COMMON NORMALS: no rashes or lesions noted GENERAL SKIN EXAM: no rashes or lesions noted Course Vital Signs: Vital signs: Vital Signs Temperature 99.7 F H 07/27/22 07:58 Pulse Rate 88 07/27/22 11:28 Respiratory Rate 14 07/27/22 11:28 Blood Pressure 156/98 07/27/22 11:28 Pulse Oximetry 93 07/27/22 11:28 Oxygen Delivery Me thod 07/27/22 11:28 Oxygen Flow Rate 2 07/27/22 11:28 MDM - Fever Medical Decision Making Low-grade fever flu and COVID swabs are negative. White count normal. His oxygen is at his baseline he is wheezing a bit he improved with a nebulizer. Discharge him home on doxycycline steroid taper and aggressive use of albuterol follow-up with primary care if not improving Medical Records I reviewed the patient's medical records. Lab Data I reviewed the patient's lab results. 07/27/22 08:40 07/27/22 08:40 Radiology Impressions Chest X-Ray 07/27/22 08:16 IMPRESSION: 1. Chronic pulmonary changes but no acute process identified. 2. Pulmonary hyperinflation. Mild cardiac enlargement. Laboratory Results WBC 5.8 10^3/uL (4.0-10.0) 07/27/22 08:40 RBC 3.77 10^6/uL (4.1-5.3) L 07/27/22 08:40 Hgb 10.3 g/dL (11.7-16.6) L 07/27/22 08:40 Hct 33.8 % (42.0-52.0) L 07/27/22 08:40 MCV 89.7 fl (80-94) 07/27/22 08:40 MCH 27.3 pg (28.0-34.0) L 07/27/22 08:40 MCHC 30.5 g/dL (30.0-36.0) 07/27/22 08:40 RDW 17.0 % (12.1-15.1) H 07/27/22 08:40 Plt Count 197 10^3/cmm (130-400) 07/27/22 08:40 MPV 8.7 fL (7.4-10.4) 07/27/22 08:40 Neut % (Auto) 83.8 % 07/27/22 08:40 Lymph % (Auto) 6.3 % 07/27/22 08:40 [place] % (Auto) 8.9 % 07/27/22 08:40 Eos % (Auto) 0.5 % 07/27/22 08:40 Baso % (Auto) 0.2 % 07/27/22 08:40 Neut # (Auto) 4.88 10^3/uL (1.8-7.7) 07/27/22 08:40 Lymph # (Auto) 0.4 10^3/uL (0.8-4.8) L 07/27/22 08:40 [place] # (Auto) 0.5 10^3/uL (0.2-0.9) 07/27/22 08:40 Eos # (Auto) 0.0 10^3/uL (0.0-0.8) 07/27/22 08:40 Baso # (Auto) 0.0 10^3/uL (0.0-0.1) 07/27/22 08:40 Nucleated RBC % (auto) 0 % 07/27/22 08:40 Nucleated RBCs # 0.0 /100WBC 07/27/22 08:40 Sodium 135 mmol/L (136-145) L 07/27/22 08:40 Potassium 4.0 mmol/L (3.5-5.1) 07/27/22 08:40 Chloride 98 mmol/L (98-107) 07/27/22 08:40 Carbon Dioxide 26 mmol/L (22-29) 07/27/22 08:40 Anion Gap 15.0 (5-19) 07/27/22 08:40 BUN 11 mg/dL (8-23) 07/27/22 08:40 Creatinine 0.9 mg/dL (0.7-1.2) 07/27/22 08:40 GFR Calculation 84.2 mL/min (90-130) L 07/27/22 08:40 Glucose 102 mg/dL (65-115) 07/27/22 08:40 Calculated Osmolality 280 mOsm/kg (285-295) L 07/27/22 08:40 Calcium 8.7 mg/dL (8.5-10.5) 07/27/22 08:40 Total Bilirubin 1.6 mg/dL (0.15-1.2) H 07/27/22 08:40 AST 13 U/L (0-40) 07/27/22 08:40 ALT 9 U/L (0-41) 07/27/22 08:40 Alkaline Phosphatase 111 U/L (40-130) 07/27/22 08:40 Creatine Kinase 82 U/L (39-308) 07/27/22 08:40 Total Protein 6.9 g/dL (6.6-8.7) 07/27/22 08:40 Albumin 3.5 g/dL (3.5-5.2) 07/27/22 08:40 Globulin 3.4 g/dL (1.3-4.6) 07/27/22 08:40 Urine Color Dark yellow (Yellow) 07/27/22 09:11 Urine Appearance Clear (CLEAR) 07/27/22 09:11 Urine pH 6.5 (5-7) 07/27/22 09:11 Ur Specific [place] 1.020 (1.005-1.030) 07/27/22 09:11 Urine Protein Trace (Negative) 07/27/22 09:11 Urine Glucose (UA) Norm (Normal) 07/27/22 09:11 Urine Ketones 1+ (Negative) H 07/27/22 09:11 Urine Blood Neg (Negative) 07/27/22 09:11 Urine Nitrate Negative (Negative) 07/27/22 09:11 Urine Bilirubin 1+ (Negative) H 07/27/22 09:11 Urine Urobilinogen 8 mg/dL (Negative) H 07/27/22 09:11 Ur Leukocyte Esterase Negative (Negative) 07/27/22 09:11 Urine RBC 0-4 /hpf (0-2) H 07/27/22 09:11 Urine WBC 0-4 /hpf (0-5) H 07/27/22 09:11 Ur Squamous Epith Cells None /hpf (0-5) 07/27/22 09:11 Amorphous Sediment Trace /hpf 07/27/22 09:11 Urine Bacteria Trace /hpf (NONE) 07/27/22 09:11 Urine Mucus 2+ /hpf 07/27/22 09:11 Coronavirus 229E (PCR) Not detected (NOT DETECT) 07/27/22 09:05 Human Metapneumovir PCR Not detected (NOT DETECT) 07/27/22 11:23 Entero/Rhino (PCR) Detected (NOT DETECT) A 07/27/22 11:23 SARS-CoV-2 (PCR) Not detected (NOT DETECT) 07/27/22 09:05 Discharge Plan Discharge Patient Disposition: Home Clinical Impression: Acute exacerbation of chronic obstructive pulmonary disease Condition: Stable Prescriptions: New prednisone 20 mg tablet 20 mg PO TID Qty: 15 0RF Rx Instructions: 1 p.o. 3 times daily x3 days, 1 p.o. twice daily x2 days, 1 p.o. daily x2 days albuterol sulfate 90 mcg/actuation HFA aerosol inhaler 2 inh INHALATION Q4H PRN (Reason: shortness of breath or wheezing) Qty: 18 0RF doxycycline hyclate 100 mg capsule 100 mg PO BID 10 Days Qty: 20 0RF No Action cholecalciferol (vitamin D3) 10 mcg (400 unit) capsule 10 mcg PO DAILY hydrocodone-acetaminophen 5-325 mg tablet 2 tab PO Q4H PRN (Reason: pain) 5 Days Qty: 60 0RF Rx Instructions: 1-2 tabs every 4 hours prn pain loratadine 10 mg tablet 10 mg PO DAILY Qty: 30 0RF prochlorperazine maleate [Compazine] 10 mg tablet 10 mg PO Q4H PRN (Reason: Mild Nausea) Qty: 30 0RF Rx Instructions: Bill to [facility] emergency fund lorazepam 1 mg tablet 0.5 mg PO Q6H PRN (Reason: Severe Nausea) Qty: 10 3RF Rx Instructions: 1-2 tabs prn seer nausea or sleep bill to [facility] emergency fund please prednisone 5 mg tablet 5 mg PO DAILY Qty: 30 6RF aspirin 325 mg tablet 325 mg PO DAILY Hold Instructions: Resume on 04/24/22. abiraterone 250 mg tablet 250 mg PO DAILY Qty: 30 0RF Rx Instructions: must be taken on empty stomach, at least 1 hr before or 2 hrs after a meal/food ipratropium-albuterol 0.5 mg-3 mg(2.5 mg base)/3 mL Solution For Nebulization 3 ml INHALATION Q6H PRN (Reason: Shortness Of Breath) albuterol sulfate 90 mcg/actuation Hfa Aerosol Inhaler 2 puff INHALATION Q6H PRN (Reason: Shortness Of Breath) atorvastatin 20 mg tablet 10 mg PO BEDTIME Eliquis 5 mg Tablet 5 mg PO BID Qty: 60 0RF Hold Instructions: Resume on 04/21/22. omeprazole 20 mg capsule,delayed release(DR/EC) 40 mg PO DAILY digoxin 250 mcg (0.25 mg) Tablet 250 mcg PO DAILY Qty: 30 0RF metoprolol tartrate 50 mg Tablet 75 mg PO BID Qty: 90 0RF docusate sodium [Stool Softener] 100 mg capsule 100 mg PO DAILY PRN (Reason: Constipation) nitroglycerin [Nitrostat] 0.4 mg Tablet, Sublingual 0.4 mg SUBLINGUAL Q5M PRN (Reason: Chest Pain) Rx Instructions: FOR 3 DOSES potassium chloride 20 mEq Tablet Extended Release 10 meq PO DAILY furosemide [Lasix] 40 mg tablet 40 mg PO QAM Flomax 0.4 mg Capsule 0.4 mg PO DAILY levothyroxine 125 mcg Tablet 125 mcg PO DAILY olodaterol 2.5 mcg/actuation Mist 2 inh INHALATION DAILY prednisone 20 mg Tablet 40 mg PO DAILY Qty: 6 0RF budesonide 0.5 mg/2 mL Suspension For Nebulization 0.5 mg inhalation BID.RESPIRATORY Qty: 120 0RF Discharge Orders: Discharge ED (Routine); Ordered 07/27/22 Ordered By: Job Magana Referrals: Isela Gipson FNP [Primary Care Provider] - Discharge Diet: Usual diet Discharge Activity: Resume usual activity Patient Instructions: Opioid Safety, Pain Management Activity Restrictions/Additional Instructions: You were seen today for shortness of breath in the emergency room as well as f ever and cough. No sign of acute infection. You do look like you have a viral upper respiratory infection flu and COVID were negative. Recommend taking the oral steroid taper you are given today day begin this tomorrow as you were given IV steroids today aggressive use of your albuterol we will also place you on a course of doxycycline. 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 of Care Code ED Medical Billing Coordinator for Kevin Arceo
[2022-07-27 08:57] LABS: Basophils % 0.2 %; Eosinophils % 0.5 %; Hematocrit 33.8 % (42.0-52.0); Hemoglobin 10.3 g/dL (11.7-16.6); Lymphocytes # 0.4 10^3/uL (0.8-4.8); Lymphocytes % 6.3 %; Mean Corpuscular HGB Conc 30.5 g/dL (30.0-36.0); Mean Corpuscular Hemoglobin 27.3 pg (28.0-34.0); Mean Corpuscular Volume 89.7 fl (80-94); Mean Platelet Volume 8.7 fL (7.4-10.4); Monocytes # 0.5 10^3/uL (0.2-0.9); Monocytes % 8.9 %; Neutrophils # 4.88 10^3/uL (1.8-7.7); Neutrophils % 83.8 %; Nucleated Red Blood Cells % 0 %; Platelet Count 197 10^3/cmm (130-400); Red Blood Count 3.77 10^6/uL (4.1-5.3); White Blood Count 5.8 10^3/uL (4.0-10.0)
[2022-07-27 09:20] LABS: Alanine Aminotransferase 9 U/L (0-41); Albumin Level 3.5 g/dL (3.5-5.2); Alkaline Phosphatase 111 U/L (40-130); Aspartate Amino Transferase 13 U/L (0-40); Blood Urea Nitrogen 11 mg/dL (8-23); Calcium 8.7 mg/dL (8.5-10.5); Carbon Dioxide 26 mmol/L (22-29); Chloride 98 mmol/L (98-107); Creatine Phosphokinase 82 U/L (39-308); Globulin 3.4 g/dL (1.3-4.6); Glomerular Filtration Rate 84.2 mL/min (90-130); Glucose 102 mg/dL (65-115); Osmolality Calculated 280 mOsm/kg (285-295); Sodium 135 mmol/L (136-145); Total Bilirubin 1.6 mg/dL (0.15-1.2); Total Protein 6.9 g/dL (6.6-8.7)
[2022-07-27] MEDS: ipratropium-albuterol 3 mL Neb INHALATION (09:58)
[2022-07-27 09:59] VITALS: PULSE 81; RESP 16; O2SAT 95
[2022-07-27 10:01] VITALS: PULSE 81
[2022-07-27 10:28] LABS: Add Urine Microscopic? YES; Bilirubin Urine 1+ (Negative); Blood Urine Neg (Negative); Glucose Urine UA Norm (Normal); Ketones Urine 1+ (Negative); Leukocyte Esterase Urine Negative (Negative); Nitrate Urine Negative (Negative); Protein Urine Trace (Negative); Urine Appearance Clear (CLEAR); Urine Color Dark Yellow (Yellow); Urobilinogen Urine 8 mg/dL (Negative); pH Urine 6.5 (5-7)
[2022-07-27 10:29] LABS: Add Urine Culture? No; Amorphous Sediment Urine TRACE /hpf; Bacteria Urine TRACE /hpf; Mucus Urine 2+ /hpf; RBC Urine 0-4 /hpf (0-2); WBC Urine 0-4 /hpf (0-5)
[2022-07-27 10:31] VITALS: BP 135/72; PULSE 84; RESP 14; O2SAT 95
[2022-07-27 11:19] LABS: Adenovirus Not Detected (NOT DETECT); Chlamydia Pneumoniae Not Detected (NOT DETECT); Coronavirus 229E,HKU1,NL63,OC4 Not Detected (NOT DETECT); Human Metapneumovirus Not Detected (NOT DETECT); Human Rhinovirus/Enterovirus Detected (NOT DETECT); Influenza A Not Detected (NOT DETECT); Influenza A H1 Not Detected (NOT DETECT); Influenza A H1-2009 Not Detected (NOT DETECT); Influenza A H3 Not Detected (NOT DETECT); Influenza B Not Detected (NOT DETECT); Mycoplasma Pneumoniae Not Detected (NOT DETECT); Parainfluenza Virus Type 1 Not Detected (NOT DETECT); Parainfluenza Virus Type 2 Not Detected (NOT DETECT); Parainfluenza Virus Type 3 Not Detected (NOT DETECT); Parainfluenza Virus Type 4 Not Detected (NOT DETECT); Respiratory Syncytial Virus A Not Detected (NOT DETECT); Respiratory Syncytial Virus B Not Detected (NOT DETECT); SARS-COV-2 Not Detected (NOT DETECT)
[2022-07-27 11:23] LABS: Human Metapneumovirus Not Detected (NOT DETECT); Human Rhinovirus/Enterovirus Detected (NOT DETECT); Results from Genmark
[2022-07-27 11:28] VITALS: BP 156/98; PULSE 88; RESP 14; O2SAT 93
== END 2022-07-27 12:35 | disposition home or self-care (01) ==
PROVIDERS: Emergency Provider Family Medicine; PCP Nurse Practitioner
DX: J44.1 Chronic obstructive pulmonary disease with (acute) exacerbation (principal); Z79.01 Long term (current) use of anticoagulants; Z79.82 Long term (current) use of aspirin; Z20.822 Contact with and (suspected) exposure to COVID-19; Z87.891 Personal history of nicotine dependence; I11.0 Hypertensive heart disease with heart failure; I50.9 Heart failure, unspecified; J44.9 Chronic obstructive pulmonary disease, unspecified; I25.10 Atherosclerotic heart disease of native coronary artery without angina pectoris; E78.5 Hyperlipidemia, unspecified; Z85.46 Personal history of malignant neoplasm of prostate; Z95.1 Presence of aortocoronary bypass graft
CPT/HCPCS: 36415; 71045; 80053; 81001; 82550; 85025; 87040; 87635; 87801; 93005; 94640; 96374; 99285; J2930

== ENCOUNTER 2022-07-30 17:33 | Emergency (ER) | payer OTHER, SELFPAY ==
[2022-07-30 17:39] VITALS: BP 150/84; PULSE 109; RESP 16; TEMP 36.8; O2SAT 97; BMI 29.4
--- NOTE | 2022-07-30 17:41 | ECG_ITS ---
[facility] Test Date: 2022-07-30 Pat Name: Gabino Jones Department: Room: Gender: Male Fourth Mate: : 1955 Requested By: Liz Fuentes Order Number: [id number] Mick MD: Favio Ferguson M.D. Measurements Intervals [place] Rate: 105 P: 86 OK: 165 QRS: 4 QRSD: 136 T: 36 QT: 349 QTc: 463 Interpretive Statements SINUS TACHYCARDIA WITH OCCASIONAL SUPRAVENTRICULAR PREMATURE COMPLEXES INDETERMINATE AXIS RIGHT BUNDLE BRANCH BLOCK [120+ ms QRS DURATION, UPRIGHT V1, 40+ ms S IN I/aVL/V4/V5/V6] INFERIOR MYOCARDIAL INFARCTION , PROBABLY OLD [40+ ms Q WAVE AND/OR ST/T ABNORMALITY IN II/aVF] ST DEVIATION AND MARKED T-WAVE ABNORMALITY, CONSIDER ANTERIOR ISCHEMIA [-0.5+ mV T-WAVE IN V3/V4] Compared to ECG 07/27/2022 08:25:40 Indeterminate axis now present Myocardial infarct finding now present Possible ischemia still present Electronically Signed On 07-30-2022 23:42:41 EMERGENCY ROOM CLINICIAN by Favio Ferguson M.D. [id number]
--- NOTE | 2022-07-30 17:52 | XRR_ITS ---
PROCEDURE INFORMATION: Exam: XR Chest Exam date and time: 07/30/2022 6:21 PM Age: 66 years old Clinical indication: Shortness of breath; Prior surgery; Surgery date: 6+ months; Surgery type: Open heart; Additional info: SOB TECHNIQUE: Imaging protocol: Radiologic exam of the chest. Views: 1 view. COMPARISON: CR XR chest 1V portable [id number] 07/27/2022 8:39 AM FINDINGS: Tubes, catheters and devices: There is a right IJ port with tip in the superior vena cava. Lungs: Severe hyperinflation of COPD with basilar fibrosis and scarring left greater than right is unchanged. There is no new airspace opacity. Pulmonary vascularity is within normal limits. Pleural spaces: Unremarkable. No pleural effusion. No pneumothorax. Heart/Mediastinum: The heart is enlarged. Bones/joints: Sternotomy wires and mediastinal surgical clips are present, consistent with previous coronary arterial bypass grafting. XR/XR chest 1V portable [id number] IMPRESSION: Unchanged exam with COPD and basilar scarring/fibrosis.
[2022-07-30 18:15] LABS: Basophils % 0.1 %; Hematocrit 31.8 % (42.0-52.0); Hemoglobin 9.9 g/dL (11.7-16.6); Lymphocytes # 0.3 10^3/uL (0.8-4.8); Lymphocytes % 3.8 %; Mean Corpuscular HGB Conc 31.1 g/dL (30.0-36.0); Mean Corpuscular Hemoglobin 27.3 pg (28.0-34.0); Mean Corpuscular Volume 87.6 fl (80-94); Mean Platelet Volume 9.4 fL (7.4-10.4); Monocytes # 0.8 10^3/uL (0.2-0.9); Monocytes % 10.8 %; Neutrophils # 6.05 10^3/uL (1.8-7.7); Neutrophils % 84.9 %; Nucleated Red Blood Cells % 0 %; Platelet Count 195 10^3/cmm (130-400); Red Blood Count 3.63 10^6/uL (4.1-5.3); Red Cell Distribution Width 16.3 % (12.1-15.1); White Blood Count 7.1 10^3/uL (4.0-10.0)
--- NOTE | 2022-07-30 18:27 | W.ED.SOB ---
HPI - SOB/Dyspnea General: Chief Complaint: Shortness of Breath/Dyspnea Stated Complaint: SOB/ CHEST PAIN Time Seen by Provider: 07/30/22 17:52 Source: patient Mode of arrival: ambulatory Limitations: no limitations History of Present Illness: HPI Narrative: 66-year-old male who has a history of COPD who states that he has been having cough shortness of breath and wheezing over the last 2 weeks he states [facility] and [facility] him up. He wears 2 L at home he is on 2 L. 97% able to talk in full sentences he denies any fever denies any increased cough denies any worsening proving factors. Associated symptoms: Deny abdominal pain, chest pain, fever(s), nausea or vomiting Review of Systems Const: Denies: fever(s), chills, body aches or change in appetite Eyes: Denies: blurry vision or eye discomfort ENMT: Denies: throat pain or dental pain Card: Denies: chest pain Resp: Reports: dyspnea and wheezing GI: Denies: abdominal pain, nausea, vomiting or diarrhea : Denies: dysuria Musc: Denies: neck pain or back pain Skin/Breast: Denies: rash Neuro: Denies: headache(s) Psych: Denies: depression Chavez/Lymph: Denies: easy bruising All/Imm: Denies: urticaria PFSH ED PFSH: Medical History Anemia Atrial fibrillation CHF (congestive heart failure) Last echocardiogram normal EF, grade 2/4 diastolic dysfunction October 2019 Chronic anticoagulation eliquis, for afib Chronic respiratory failure with hypoxia Colon polyps COPD (chronic obstructive pulmonary disease) Coronary artery disease Coronary artery disease Elevated PSA GERD (gastroesophageal reflux disease) Heart failure with preserved ejection fraction History of colon polyps Hyperlipidemia Hypertension Hypothyroidism Prostate cancer Surgical History History of colonoscopy (~04/2020) History of coronary artery bypass graft (03/2019) [address] [place] [address] History of knee surgery History of vasectomy S/P appendectomy S/P cholecystectomy Family History Father , IN HIS 50'S Lung disease tuberculosis Mother , AT AGE 63 CAD (coronary artery disease) Diabetes Hypertension Sister Cancer Denies family history of Clotting disorder Dementia Hyperlipidemia Psychiatric illness Chronic kidney disease (CKD) Suicide Anesthesia complication Bleeding disorder Stroke Social History Smoking and tobacco status: never smoked Quit status (tobacco): has quit using tobacco Year quit tobacco: 2016 - PPD x 52 Years Alcohol intake: never Counseling given: No Lives independently: Yes Household members: none Marital status: Legally Current occupational status: employed and retired Current gender identity: Male Physical Exam Const: COMMON NORMALS: no acute distress, patient oriented x3 and healthy appearing HENMT: COMMON NORMALS: normocephalic and atraumatic HEAD & SCALP: normocephalic and atraumatic Eye: COMMON NORMALS: Equal, round and reactive pupils present and EOMs intact bilaterally PUPIL: Yes Equal, round and reactive pupils present Neck/C-Spine: COMMON NORMALS: full ROM and supple Chest: COMMONS NORMALS: normal inspection of the chest and normal palpation of entire chest wall Resp: COMMON NORMALS: normal respiratory effort, No retractions, No use of accessory muscles and clear to auscultation bilaterally AUSCULTATION: clear to auscultation bilaterally and wheezes Cardio: COMMON NORMALS: regular rate, regular rhythm and No murmurs present (Cardio) RATE: regular rate RHYTHM: regular rhythm GI: COMMON NORMALS: Normal to inspection, nondistended, normoactive bowel sounds present, Soft to palpation, non-tender and no masses PALPATION: Yes Soft to palpation Extremity: COMMON NORMALS: normal to inspection and full ROM Neuro: COMMON NORMALS: patient oriented x3, moves all extremities and no focal motor deficits Psych: COMMON NORMALS: mental status grossly normal, Normal thought process present and cooperative THOUGHT PROCESS: Normal thought process present Skin: COMMON NORMALS: no rashes or lesions noted and no wounds GENERAL SKIN EXAM: no rashes or lesions noted Course Vital Signs: Vital signs: Vital Signs Temperature 98.3 F 07/30/22 17:39 Pulse Rate 94 07/30/22 19:22 Respiratory Rate 19 H 07/30/22 19:22 Blood Pressure 158/82 07/30/22 19:02 Pulse Oximetry 94 07/30/22 19:22 Oxygen Delivery Me thod 07/30/22 19:02 Oxygen Flow Rate 2 07/30/22 19:22 MDM - SOB/Dyspnea Medical Decision Making Patient presents for shortness of breath likely from his chronic COPD he is at his baseline here on 2 L in no distress at this time patient given breathing treatment along with IV steroids we will prescribe him steroids at home he has no signs of pneumonia he is stable for discharge she is to follow-up with PCP and return if worsening. Lab Data 07/30/22 18:05 07/30/22 18:05 Labs/Radiology: Radiology Impressions Chest X-Ray 07/30/22 17:52 IMPRESSION: Unchanged exam with COPD and basilar scarring/fibrosis. Laboratory Results WBC 7.1 10^3/uL (4.0-10.0) 07/30/22 18:05 RBC 3.63 10^6/uL (4.1-5.3) L 07/30/22 18:05 Hgb 9.9 g/dL (11.7-16.6) L 07/30/22 18:05 Hct 31.8 % (42.0-52.0) L 07/30/22 18:05 MCV 87.6 fl (80-94) 07/30/22 18:05 MCH 27.3 pg (28.0-34.0) L 07/30/22 18:05 MCHC 31.1 g/dL (30.0-36.0) 07/30/22 18:05 RDW 16.3 % (12.1-15.1) H 07/30/22 18:05 Plt Count 195 10^3/cmm (130-400) 07/30/22 18:05 MPV 9.4 fL (7.4-10.4) 07/30/22 18:05 Neut % (Auto) 84.9 % 07/30/22 18:05 Lymph % (Auto) 3.8 % 07/30/22 18:05 [place] % (Auto) 10.8 % 07/30/22 18:05 Eos % (Auto) 0.0 % 07/30/22 18:05 Baso % (Auto) 0.1 % 07/30/22 18:05 Neut # (Auto) 6.05 10^3/uL (1.8-7.7) 07/30/22 18:05 Lymph # (Auto) 0.3 10^3/uL (0.8-4.8) L 07/30/22 18:05 [place] # (Auto) 0.8 10^3/uL (0.2-0.9) 07/30/22 18:05 Eos # (Auto) 0.0 10^3/uL (0.0-0.8) 07/30/22 18:05 Baso # (Auto) 0.0 10^3/uL (0.0-0.1) 07/30/22 18:05 Nucleated RBC % (auto) 0 % 07/30/22 18:05 Nucleated RBCs # 0.0 /100WBC 07/30/22 18:05 Sodium 136 mmol/L (136-145) 07/30/22 18:05 Potassium 3.7 mmol/L (3.5-5.1) 07/30/22 18:05 Chloride 100 mmol/L (98-107) 07/30/22 18:05 Carbon Dioxide 27 mmol/L (22-29) 07/30/22 18:05 Anion Gap 12.7 (5-19) 07/30/22 18:05 BUN 13 mg/dL (8-23) 07/30/22 18:05 Creatinine 0.7 mg/dL (0.7-1.2) 07/30/22 18:05 GFR Calculation 112.5 mL/min (90-130) 07/30/22 18:05 Glucose 125 mg/dL (65-115) H 07/30/22 18:05 Calculated Osmolality 284 mOsm/kg (285-295) L 07/30/22 18:05 Calcium 8.4 mg/dL (8.5-10.5) L 07/30/22 18:05 Total Bilirubin 0.9 mg/dL (0.15-1.2) 07/30/22 18:05 AST 13 U/L (0-40) 07/30/22 18:05 ALT 13 U/L (0-41) 07/30/22 18:05 Alkaline Phosphatase 98 U/L (40-130) 07/30/22 18:05 NT-Pro-B Natriuret Pep 4796 pg/mL (0-125) H 07/30/22 18:05 Total Protein 6.6 g/dL (6.6-8.7) 07/30/22 18:05 Albumin 3.4 g/dL (3.5-5.2) L 07/30/22 18:05 Globulin 3.2 g/dL (1.3-4.6) 07/30/22 18:05 Discharge Plan Discharge Patient Disposition: Home Clinical Impression: COPD (chronic obstructive pulmonary disease) Condition: Stable Prescriptions: New prednisone 50 mg tablet 50 mg PO DAILY Qty: 5 0RF No Action cholecalciferol (vitamin D3) 10 mcg (400 unit) capsule 10 mcg PO DAILY hydrocodone-acetaminophen 5-325 mg tablet 2 tab PO Q4H PRN (Reason: pain) 5 Days Qty: 60 0RF Rx Instructions: 1-2 tabs every 4 hours prn pain loratadine 10 mg tablet 10 mg PO DAILY Qty: 30 0RF prochlorperazine maleate [Compazine] 10 mg tablet 10 mg PO Q4H PRN (Reason: Mild Nausea) Qty: 30 0RF Rx Instructions: Bill to [facility] emergency fund lorazepam 1 mg tablet 0.5 mg PO Q6H PRN (Reason: Severe Nausea) Qty: 10 3RF Rx Instructions: 1-2 tabs prn seer nausea or sleep bill to [facility] emergency fund please prednisone 5 mg tablet 5 mg PO DAILY Qty: 30 6RF aspirin 325 mg tablet 325 mg PO DAILY Hold Instructions: Resume on 04/24/22. abiraterone 250 mg tablet 250 mg PO DAILY Qty: 30 0RF Rx Instructions: must be taken on empty stomach, at least 1 hr before or 2 hrs after a meal/food ipratropium-albuterol 0.5 mg-3 mg(2.5 mg base)/3 mL Solution For Nebulization 3 ml INHALATION Q6H PRN (Reason: Shortness Of Breath) albuterol sulfate 90 mcg/actuation Hfa Aerosol Inhaler 2 puff INHALATION Q6H PRN (Reason: Shortness Of Breath) atorvastatin 20 mg tablet 10 mg PO BEDTIME Eliquis 5 mg Tablet 5 mg PO BID Qty: 60 0RF Hold Instructions: Resume on 04/21/22. omeprazole 20 mg capsule,delayed release(DR/EC) 40 mg PO DAILY digoxin 250 mcg (0.25 mg) Tablet 250 mcg PO DAILY Qty: 30 0RF metoprolol tartrate 50 mg Tablet 75 mg PO BID Qty: 90 0RF docusate sodium [Stool Softener] 100 mg capsule 100 mg PO DAILY PRN (Reason: Constipation) nitroglycerin [Nitrostat] 0.4 mg Tablet, Sublingual 0.4 mg SUBLINGUAL Q5M PRN (Reason: Chest Pain) Rx Instructions: FOR 3 DOSES potassium chloride 20 mEq Tablet Extended Release 10 meq PO DAILY furosemide [Lasix] 40 mg tablet 40 mg PO QAM Flomax 0.4 mg Capsule 0.4 mg PO DAILY levothyroxine 125 mcg Tablet 125 mcg PO DAILY olodaterol 2.5 mcg/actuation Mist 2 inh INHALATION DAILY prednisone 20 mg Tablet 40 mg PO DAILY Qty: 6 0RF budesonide 0.5 mg/2 mL Suspension For Nebulization 0.5 mg inhalation BID.RESPIRATORY Qty: 120 0RF prednisone 20 mg tablet 20 mg PO TID Qty: 15 0RF Rx Instructions: 1 p.o. 3 times daily x3 days, 1 p.o. twice daily x2 days, 1 p.o. daily x2 days albuterol sulfate 90 mcg/actuation HFA aerosol inhaler 2 inh INHALATION Q4H PRN (Reason: shortness of breath or wheezing) Qty: 18 0RF doxycycline hyclate 100 mg capsule 100 mg PO BID 10 Days Qty: 20 0RF Discharge Orders: Discharge ED (Routine); Ordered 07/30/22 Ordered By: Liz Fuentes Referrals: Isela Gipson FNP [Primary Care Provider] - Discharge Diet: Advance as tolerated Discharge Activity: Resume usual activity Patient Instructions: COPD (Chronic Obstructive Pulmonary Disease) (ED) 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 of Care Code ED [employer] Manager for Kevin Arceo
[2022-07-30 18:42] LABS: Alanine Aminotransferase 13 U/L (0-41); Albumin Level 3.4 g/dL (3.5-5.2); Alkaline Phosphatase 98 U/L (40-130); Anion Gap 12.7 (5-19); Aspartate Amino Transferase 13 U/L (0-40); Blood Urea Nitrogen 13 mg/dL (8-23); Calcium 8.4 mg/dL (8.5-10.5); Carbon Dioxide 27 mmol/L (22-29); Chloride 100 mmol/L (98-107); Globulin 3.2 g/dL (1.3-4.6); Glomerular Filtration Rate 112.5 mL/min (90-130); Glucose 125 mg/dL (65-115); NT Pro B Type Natriuretic Pept 4796 pg/mL (0-125); Osmolality Calculated 284 mOsm/kg (285-295); Potassium 3.7 mmol/L (3.5-5.1); Sodium 136 mmol/L (136-145); Total Bilirubin 0.9 mg/dL (0.15-1.2); Total Protein 6.6 g/dL (6.6-8.7)
[2022-07-30] MEDS: FUROsemide 10 mg/mL SDV 10mL 60 MG IVP (18:59)
[2022-07-30 19:02] VITALS: BP 158/82; PULSE 90; RESP 21; O2SAT 96
--- NOTE | 2022-07-30 19:03 | PC.NURSE ---
to room to medicate pt. pt resting comfortably. urinal provided for lasix therapy. no other needs at this time.
[2022-07-30] MEDS: ipratropium 0.5 mg/2.5 mL Neb INHALATION (19:21)
[2022-07-30] MEDS: albuterol 2.5 mg/3 mL Neb INHALATION (19:21)
[2022-07-30 19:22] VITALS: PULSE 94; RESP 19; O2SAT 94
== END 2022-07-30 19:55 | disposition home or self-care (01) ==
PROVIDERS: Family Medicine; Emergency Provider Emergency Medicine; PCP Nurse Practitioner
DX: J44.9 Chronic obstructive pulmonary disease, unspecified (principal); Z79.82 Long term (current) use of aspirin; Z79.01 Long term (current) use of anticoagulants; Z87.891 Personal history of nicotine dependence; Z95.1 Presence of aortocoronary bypass graft; I11.0 Hypertensive heart disease with heart failure; I50.9 Heart failure, unspecified; I25.10 Atherosclerotic heart disease of native coronary artery without angina pectoris; E72.3 Disorders of lysine and hydroxylysine metabolism; Z85.46 Personal history of malignant neoplasm of prostate
CPT/HCPCS: 71045; 80053; 83880; 85025; 93005; 94640; 96374; 96375; 99285; J1940; J2930; J7613; J7644

== ENCOUNTER → 2022-08-30 12:50 | Outpatient (BNVA) | payer OTHER, SELFPAY | PROVIDERS: PCP Nurse Practitioner; Visit Provider Specialist | DX: I25.10 Atherosclerotic heart disease of native coronary artery without angina pectoris (principal); I15.9 Secondary hypertension, unspecified; I48.0 Paroxysmal atrial fibrillation; Z79.01 Long term (current) use of anticoagulants; Z79.82 Long term (current) use of aspirin | CPT/HCPCS: 99213 ==

== ENCOUNTER 2022-08-31 08:00 | Oncology outpatient (recurring) (ONCR) | payer OTHER, SELFPAY ==
[2022-08-31 08:10] VITALS: BP 112/68; PULSE 65; RESP 18; TEMP 36.2; O2SAT 94
[2022-08-31 08:11] VITALS: BMI 29.7
[2022-08-31 08:14] LABS: Basophils % 0.7 %; Eosinophils # 0.1 10^3/uL (0.0-0.8); Eosinophils % 2.6 %; Hematocrit 35.5 % (42.0-52.0); Hemoglobin 11.4 g/dL (11.7-16.6); Lymphocytes # 0.5 10^3/uL (0.8-4.8); Lymphocytes % 17.2 %; Mean Corpuscular HGB Conc 32.1 g/dL (30.0-36.0); Mean Corpuscular Hemoglobin 27.9 pg (28.0-34.0); Mean Corpuscular Volume 86.8 fl (80-94); Mean Platelet Volume 8.8 fL (7.4-10.4); Monocytes # 0.3 10^3/uL (0.2-0.9); Monocytes % 12.7 %; Neutrophils # 1.77 10^3/uL (1.8-7.7); Neutrophils % 66.4 %; Nucleated Red Blood Cells % 0 %; Platelet Count 190 10^3/cmm (130-400); Red Blood Count 4.09 10^6/uL (4.1-5.3); Red Cell Distribution Width 15.8 % (12.1-15.1); White Blood Count 2.7 10^3/uL (4.0-10.0)
[2022-08-31 08:43] LABS: Alanine Aminotransferase 15 U/L (0-41); Albumin Level 3.8 g/dL (3.5-5.2); Alkaline Phosphatase 86 U/L (40-130); Anion Gap 11.5 (5-19); Aspartate Amino Transferase 16 U/L (0-40); Blood Urea Nitrogen 11 mg/dL (8-23); Carbon Dioxide 31 mmol/L (22-29); Chloride 103 mmol/L (98-107); Globulin 2.8 g/dL (1.3-4.6); Glomerular Filtration Rate 83.9 mL/min (90-130); Glucose 148 mg/dL (65-115); Osmolality Calculated 296 mOsm/kg (285-295); Potassium 3.5 mmol/L (3.5-5.1); Sodium 142 mmol/L (136-145); Testosterone Total 2.5 ng/dL (193-740); Total Bilirubin 0.3 mg/dL (0.15-1.2); Total Protein 6.6 g/dL (6.6-8.7)
[2022-08-31 08:46] LABS: Prostate Specific Antigen < 0.014 ng/mL (0-4)
[2022-08-31] MEDS: leuprolide 22.5 mg Kit IM (10:05)
[2022-08-31 10:10] VITALS: BP 109/69; PULSE 62; RESP 18; TEMP 35.9; O2SAT 94
[2022-08-31 11:20] LABS: Ferritin 102 ng/mL (30-400); Iron 144 ug/dL (59-158); Percent Saturation 53.5 % (20-50); Total Iron Binding Capacity 269 mcg/dl; Unsaturated Iron Binding 125 ug/dL (112-347)
== END 2022-08-31 23:59 | disposition home or self-care (01) ==
PROVIDERS: Internal Medicine Hematology & Oncology; PCP Nurse Practitioner; Visit Provider Nurse Practitioner
DX: C61 Malignant neoplasm of prostate; C79.11 Secondary malignant neoplasm of bladder; M87.86 Other osteonecrosis, tibia and fibula; D50.0 Iron deficiency anemia secondary to blood loss (chronic); I48.91 Unspecified atrial fibrillation; Z79.01 Long term (current) use of anticoagulants; Z79.52 Long term (current) use of systemic steroids; Z79.818 Long term (current) use of other agents affecting estrogen receptors and estrogen levels; Z79.899 Other long term (current) drug therapy; Z87.891 Personal history of nicotine dependence
CPT/HCPCS: 36591; 80053; 82728; 83540; 83550; 84153; 84403; 85025; 96402; 96523; 99214; J9217

== ENCOUNTER 2022-09-27 09:55 | Oncology outpatient (recurring) (ONCR) | payer OTHER, SELFPAY | END 2022-09-30 23:59 | disposition home or self-care (01) | LOC: ONCMED 09:55 | PROVIDERS: PCP Nurse Practitioner; Visit Provider Nurse Practitioner | DX: Z45.2 Encounter for adjustment and management of vascular access device (principal) | CPT/HCPCS: 96523 ==

== ENCOUNTER 2022-10-25 08:55 | Oncology outpatient (recurring) (ONCR) | payer OTHER, SELFPAY ==
[2022-10-25 09:17] VITALS: BP 134/69; PULSE 65; RESP 18; TEMP 36.4; O2SAT 98
== END 2022-10-31 23:59 | disposition home or self-care (01) ==
LOC: ONCMED 08:56
PROVIDERS: PCP Nurse Practitioner; Visit Provider Nurse Practitioner
DX: Z45.2 Encounter for adjustment and management of vascular access device (principal)
CPT/HCPCS: 96523; J1642

== ENCOUNTER 2022-11-29 10:31 | Oncology outpatient (recurring) (ONCR) | payer OTHER, SELFPAY ==
[2022-11-29 10:57] VITALS: BP 125/64; PULSE 69; RESP 18; TEMP 36.3; O2SAT 94
[2022-11-29 11:08] LABS: Basophils % 0.7 %; Eosinophils # 0.1 10^3/uL (0.0-0.8); Eosinophils % 4.1 %; Hematocrit 30.7 % (42.0-52.0); Hemoglobin 9.8 g/dL (11.7-16.6); Lymphocytes # 0.5 10^3/uL (0.8-4.8); Lymphocytes % 17.8 %; Mean Corpuscular HGB Conc 31.9 g/dL (30.0-36.0); Mean Corpuscular Hemoglobin 25.9 pg (28.0-34.0); Mean Platelet Volume 8.8 fL (7.4-10.4); Monocytes # 0.3 10^3/uL (0.2-0.9); Monocytes % 11.2 %; Neutrophils # 1.77 10^3/uL (1.8-7.7); Neutrophils % 65.8 %; Nucleated Red Blood Cells % 0 %; Platelet Count 158 10^3/cmm (130-400); Red Blood Count 3.79 10^6/uL (4.1-5.3); Red Cell Distribution Width 13.8 % (12.1-15.1); White Blood Count 2.7 10^3/uL (4.0-10.0)
[2022-11-29 11:36] LABS: Alanine Aminotransferase 7 U/L (0-41); Albumin Level 3.6 g/dL (3.5-5.2); Alkaline Phosphatase 110 U/L (40-130); Anion Gap 11.3 (5-19); Aspartate Amino Transferase 13 U/L (0-40); Blood Urea Nitrogen 8 mg/dL (8-23); Calcium 8.6 mg/dL (8.5-10.5); Carbon Dioxide 30 mmol/L (22-29); Chloride 99 mmol/L (98-107); Globulin 2.5 g/dL (1.3-4.6); Glomerular Filtration Rate 96.1 mL/min (90-130); Glucose 102 mg/dL (65-115); Osmolality Calculated 283 mOsm/kg (285-295); Potassium 3.3 mmol/L (3.5-5.1); Sodium 137 mmol/L (136-145); Testosterone Total 2.5 ng/dL (193-740); Total Bilirubin 0.5 mg/dL (0.15-1.2); Total Protein 6.1 g/dL (6.6-8.7)
[2022-11-29 11:44] LABS: Prostate Specific Antigen < 0.014 ng/mL (0-4)
[2022-11-29 14:00] LABS: Ferritin 51 ng/mL (30-400); Iron 26 ug/dL (59-158); Percent Saturation 11.7 % (20-50); Total Iron Binding Capacity 221 mcg/dl; Unsaturated Iron Binding 195 ug/dL (112-347)
[2022-11-29] MEDS: leuprolide 22.5 mg Kit IM (14:11)
== END 2022-11-30 23:59 | disposition home or self-care (01) ==
PROVIDERS: Internal Medicine Hematology & Oncology; Nurse Practitioner Family; PCP Nurse Practitioner; Visit Provider Nurse Practitioner
DX: C61 Malignant neoplasm of prostate; M87.852 Other osteonecrosis, left femur; M87.851 Other osteonecrosis, right femur; K62.5 Hemorrhage of anus and rectum; D64.9 Anemia, unspecified; Z79.52 Long term (current) use of systemic steroids; Z79.818 Long term (current) use of other agents affecting estrogen receptors and estrogen levels; Z79.899 Other long term (current) drug therapy
CPT/HCPCS: 36591; 80053; 82728; 83540; 83550; 84153; 84403; 85025; 96402; 99214; J1642; J9217

== ENCOUNTER 2022-12-27 11:23 | Oncology outpatient (recurring) (ONCR) | payer OTHER, SELFPAY ==
[2022-12-27 11:46] VITALS: BP 174/74; PULSE 62; RESP 18; TEMP 36.5; O2SAT 94
[2022-12-27 11:48] VITALS: BMI 28.5
[2022-12-27 12:00] LABS: Basophils % 0.5 %; Eosinophils # 0.1 10^3/uL (0.0-0.8); Eosinophils % 3.2 %; Hematocrit 34.8 % (42.0-52.0); Hemoglobin 10.8 g/dL (11.7-16.6); Lymphocytes # 0.6 10^3/uL (0.8-4.8); Lymphocytes % 14.4 %; Mean Corpuscular Hemoglobin 25.9 pg (28.0-34.0); Mean Corpuscular Volume 83.5 fl (80-94); Mean Platelet Volume 9.3 fL (7.4-10.4); Monocytes # 0.3 10^3/uL (0.2-0.9); Monocytes % 8.2 %; Neutrophils # 2.97 10^3/uL (1.8-7.7); Neutrophils % 73.5 %; Nucleated Red Blood Cells % 0 %; Platelet Count 170 10^3/cmm (130-400); Red Blood Count 4.17 10^6/uL (4.1-5.3); Red Cell Distribution Width 15.8 % (12.1-15.1)
[2022-12-27 12:33] LABS: Alanine Aminotransferase 9 U/L (0-41); Alkaline Phosphatase 107 U/L (40-130); Anion Gap 13.4 (5-19); Aspartate Amino Transferase 9 U/L (0-40); Blood Urea Nitrogen 18 mg/dL (8-23); Calcium 8.9 mg/dL (8.5-10.5); Carbon Dioxide 28 mmol/L (22-29); Chloride 103 mmol/L (98-107); Globulin 2.3 g/dL (1.3-4.6); Glomerular Filtration Rate 112.1 mL/min (90-130); Glucose 158 mg/dL (65-115); Osmolality Calculated 295 mOsm/kg (285-295); Potassium 4.4 mmol/L (3.5-5.1); Sodium 140 mmol/L (136-145); Total Bilirubin 0.2 mg/dL (0.15-1.2); Total Protein 6.3 g/dL (6.6-8.7)
[2022-12-27 12:38] LABS: Prostate Specific Antigen < 0.014 ng/mL (0-4)
== END 2022-12-31 23:59 | disposition home or self-care (01) ==
LOC: ONCMED 11:24
PROVIDERS: Nurse Practitioner Family; PCP Nurse Practitioner; Visit Provider Nurse Practitioner
DX: C61 Malignant neoplasm of prostate; M87.852 Other osteonecrosis, left femur; M87.851 Other osteonecrosis, right femur; D50.9 Iron deficiency anemia, unspecified; Z79.52 Long term (current) use of systemic steroids; Z79.818 Long term (current) use of other agents affecting estrogen receptors and estrogen levels; Z79.899 Other long term (current) drug therapy; Z87.891 Personal history of nicotine dependence
CPT/HCPCS: 36591; 80053; 84153; 85025; 99214; J1642

== ENCOUNTER 2023-01-24 09:01 | Oncology outpatient (recurring) (ONCR) | payer OTHER, SELFPAY ==
[2023-01-24 09:46] VITALS: BP 160/73; PULSE 67; RESP 18; TEMP 36.4; O2SAT 94
== END 2023-01-31 23:59 | disposition home or self-care (01) ==
LOC: ONCMED 09:01
PROVIDERS: PCP Nurse Practitioner; Visit Provider Internal Medicine Medical Oncology
DX: Z45.2 Encounter for adjustment and management of vascular access device (principal)
CPT/HCPCS: 96523; J1642

== ENCOUNTER 2023-02-02 16:21 | Emergency (ER) | payer OTHER, SELFPAY ==
[2023-02-02 16:55] VITALS: BP 152/76; PULSE 84; RESP 16; TEMP 36.8; O2SAT 98; BMI 28.7
[2023-02-02 19:30] VITALS: BP 176/88; PULSE 70; O2SAT 97
[2023-02-02] MEDS: sodium chloride 0.9% 500 ML IV (19:54)
[2023-02-02 19:59] LABS: Basophils % 0.7 %; Eosinophils # 0.1 10^3/uL (0.0-0.8); Hematocrit 37.1 % (37-53); Lymphocytes # 0.8 10^3/uL (0.8-4.8); Lymphocytes % 18.2 %; Mean Corpuscular HGB Conc 32.1 g/dL (30-55); Mean Corpuscular Hemoglobin 26.7 pg (27-33); Mean Corpuscular Volume 83.4 fl (82-101); Mean Platelet Volume 9.5 fL (7.4-10.4); Monocytes # 0.4 10^3/uL (0.2-0.9); Monocytes % 9.1 %; Neutrophils # 3.03 10^3/uL (1.8-7.7); Neutrophils % 68.8 %; Nucleated Red Blood Cells % 0 %; Platelet Count 206 10^3/cmm (157-399); Red Blood Count 4.45 10^6/uL (3.85-5.65); Red Cell Distribution Width 17.8 % (12.1-15.1)
[2023-02-02 20:15] LABS: Glucose Urine UA Norm (Normal); Protein Urine 1+ (Negative); Specific Gravity, Urine 1.015 (1.005-1.030); Urine Appearance Hazy (CLEAR); Urine Color Yellow (Yellow); pH Urine 7 (5-7)
[2023-02-02 20:16] LABS: Add Urine Culture? Yes; Bilirubin Urine Neg (Negative); Blood Urine 3+ (Negative); Ketones Urine Negative (Negative); Leukocyte Esterase Urine Negative (Negative); Nitrate Urine Negative (Negative); Squamous Epithelial Cell Urine RARE /hpf (0-5); Urobilinogen Urine 1 mg/dL (Negative)
[2023-02-02 20:23] LABS: Anion Gap 13.6 (5-19); Blood Urea Nitrogen 11 mg/dL (8-23); C Reactive Protein 27.1 mg/L (0.0-4.9); Calcium 9.3 mg/dL (8.5-10.5); Carbon Dioxide 31 mmol/L (22-29); Chloride 96 mmol/L (98-107); Glomerular Filtration Rate 96.1 mL/min (90-130); Glucose 120 mg/dL (65-115); Osmolality Calculated 285 mOsm/kg (285-295); Potassium 3.6 mmol/L (3.5-5.1); Sodium 137 mmol/L (136-145)
--- NOTE | 2023-02-02 20:32 | CTR_ITS ---
PROCEDURE INFORMATION: Exam: CT Abdomen And Pelvis Without Contrast Exam date and time: 02/02/2023 9:12 PM Age: 67 years old Clinical indication: Other: Dysuria/hematuria; Prior surgery; Surgery date: 6+ months; Surgery type: Gb. Appy. Vasectomy; Patient HX: Dysuria with hematuria. History of prostate cancer. TECHNIQUE: Imaging protocol: Computed tomography of the abdomen and pelvis without contrast. Radiation optimization: All CT scans at this facility use at least one of these dose optimization techniques: automated exposure control; mA and/or kV adjustment per patient size (includes targeted exams where dose is matched to clinical indication); or iterative reconstruction. REPORTING DATA: Count of CT and Cardiac NM exams in prior 12 months: This patient has received 0 known CTs and 0 known cardiac nuclear medicine studies in the 12 months prior to the current study. COMPARISON: CT abdomen pelvis wo/w [id number] 10/12/2021 8:44 AM RADIATION DOSE METRICS: Total DLP (mGy-cm): 672.46 FINDINGS: Lungs: Emphysematous changes. Coronary arteries: Coronary artery atherosclerotic calcifications. Diaphragm: Moderate to large hiatal hernia. Liver: Normal. No mass. Gallbladder and bile ducts: Cholecystectomy. Pancreas: Normal. No ductal dilation. Spleen: Normal. No splenomegaly. Adrenal glands: Normal. No mass. Kidneys and ureters: Right kidney cysts, one of which is hyperdense, negative for follow-up advised. Stomach and bowel: Unremarkable. No obstruction. No mucosal thickening. Appendix: No evidence of appendicitis. Intraperitoneal space: Unremarkable. No free air. No significant fluid collection. Vasculature: Fusiform infrarenal abdominal aortic aneurysm measuring up to 2.7 cm. Lymph nodes: Unremarkable. No enlarged lymph nodes. Urinary bladder: Diffuse urinary bladder wall thickening with surrounding edema, please correlate for cystitis. Reproductive: Unremarkable as visualized. Bones/joints: Unremarkable. No acute fracture. Soft tissues: Small bilateral fat containing inguinal hernias without bowel or inflammation. Other findings: Trace nonspecific fluid in the pelvis. CT/CT kidney stone [id number] IMPRESSION: 1. Diffuse urinary bladder wall thickening with surrounding edema, please correlate for cystitis. 2. Trace nonspecific fluid in the pelvis. 3. Emphysematous changes. 4. Coronary artery atherosclerotic calcifications. 5. Moderate to large hiatal hernia. 6. Cholecystectomy. 7. Right kidney cysts, one of which is hyperdense, negative for follow-up advised. 8. Small bilateral fat containing inguinal hernias without bowel or inflammation. 9. Fusiform infrarenal abdominal aortic aneurysm measuring up to 2.7 cm.
--- NOTE | 2023-02-02 20:48 | W.ED.MALEGU ---
HPI - Male Genitourinary General: Chief complaint: Urogenital-Male Stated complaint: unable to urinate Time Seen by Provider: 02/02/23 17:01 History of Present Illness: 67-year-old male presents the emergency department chief complaint of urinary frequency and hesitancy. The patient has a longstanding history of previous prostate cancer with radiation from approxi-2 years ago patient does not report any blood in his urine does not recall any known history of UTIs reports hesitancy with flow and has been progressive getting worse patient reports no recent fevers or chills does endorse mild lower abdominal pelvic discomfort with no other associated symptoms. Associated symptoms: Reports dysuria; Deny nausea or vomiting Review of Systems General: Reports: 10 or more systems reviewed and unremarkable except in HPI and below Const: Denies: fever(s), chills, fatigue or malaise Eyes: Denies: change in vision or blurry vision Card: Denies: chest pain or palpitations Resp: Denies: dyspnea or productive cough GI: Reports: abdominal pain; Denies: nausea or vomiting : Reports: difficulty urinating, dysuria, urinary frequency, urinary urgency and urinary hesitancy; Denies: flank pain Musc: Denies: extremity pain or extremity swelling Skin/Breast: Denies: rash or pruritus Neuro: Denies: headache(s) Psych: Denies: anxiety or depression Chavez/Lymph: Denies: easy bleeding All/Imm: Denies: urticaria, throat swelling or facial swelling [facility] ED PFSH: Medical History Anemia Atrial fibrillation CHF (congestive heart failure) Last echocardiogram normal EF, grade 2/4 diastolic dysfunction October 2019 Chronic anticoagulation eliquis, for afib Chronic respiratory failure with hypoxia Colon polyps COPD (chronic obstructive pulmonary disease) Coronary artery disease Coronary artery disease Elevated PSA GERD (gastroesophageal reflux disease) Heart failure with preserved ejection fraction History of colon polyps Hyperlipidemia Hypertension Hypothyroidism Prostate cancer Surgical History History of colonoscopy (~04/2020) History of coronary artery bypass graft (03/2019) [address] [place] [address] History of knee surgery History of vasectomy S/P appendectomy S/P cholecystectomy Family History Father , IN HIS 50'S Lung disease tuberculosis Mother , AT AGE 63 CAD (coronary artery disease) Diabetes Hypertension Sister Cancer Denies family history of Clotting disorder Dementia Hyperlipidemia Psychiatric illness Chronic kidney disease (CKD) Suicide Anesthesia complication Bleeding disorder Stroke Social History Smoking and tobacco status: former smoker Quit status (tobacco): has quit using tobacco Year quit tobacco: 2017 - PPD x 52 Years Alcohol intake: never Substance/Drug Use: never Counseling given: No Lives independently: Yes Household members: none Marital status: Legally Current occupational status: employed and retired Do you think of yourself as: Straight/Heterosexual Current gender identity: Male Physical Exam Const: COMMON NORMALS: no acute distress (Somewhat anxious on exam however appears nontoxic), patient oriented x3 and healthy appearing HENMT: COMMON NORMALS: normocephalic and atraumatic HEAD & SCALP: normocephalic and atraumatic Eye: COMMON NORMALS: Equal, round and reactive pupils present and EOMs intact bilaterally PUPIL: Yes Equal, round and reactive pupils present Neck/C-Spine: COMMON NORMALS: full ROM, supple and no JVD Lymph: LYMPHATIC: no lymphadenopathy noted Chest: COMMONS NORMALS: normal inspection of the chest and normal palpation of entire chest wall Resp: COMMON NORMALS: normal respiratory effort, No retractions and clear to auscultation bilaterally EFFORT & INSPECTION: Yes able to speak in complete sentences and Yes symmetric chest movement AUSCULTATION: clear to auscultation bilaterally Cardio: COMMON NORMALS: no JVD, regular rate and regular rhythm RATE: regular rate RHYTHM: regular rhythm GI: COMMON NORMALS: Normal to inspection, nondistended, normoactive bowel sounds present and Soft to palpation; negative for non-tender (Mild suprapubic abdominal pain noted to palpation otherwise soft nontender ) INSPECTION: Yes normal to inspection PALPATION: Yes Soft to palpation : COMMON NORMALS: Yes no CVA tenderness BLADDER/KIDNEY EXAM: Yes no CVA tenderness Back/Pelvis: COMMON NORMALS: no CVA tenderness Extremity: COMMON NORMALS: normal to inspection and full ROM Neuro: COMMON NORMALS: patient oriented x3, CN's II-XII intact bilaterally, moves all extremities and no focal motor deficits Psych: COMMON NORMALS: mental status grossly normal, Normal thought process present, cooperative and normal affect THOUGHT PROCESS: Normal thought process present Skin: COMMON NORMALS: no rashes or lesions noted GENERAL SKIN EXAM: no rashes or lesions noted Course Vital Signs: Vital signs: Vital Signs Temperature 98.3 F 02/02/23 16:55 Pulse Rate 71 02/02/23 21:00 Respiratory Rate 16 02/02/23 16:55 Blood Pressure 175/87 02/02/23 21:00 Pulse Oximetry 96 02/02/23 21:00 Oxygen Delivery Me thod Room Air 02/02/23 21:00 MDM - Male Medical Decision Making Due to patient's symptoms and condition an IV was established basic lab work and imaging obtained we will continue follow-up patient was not found to have a urinary tract infection he was found to have some hematuria in his urinalysis no renal impairment was noted patient will undergo a renal protocol CT will continue to follow for rule out kidney stone disease versus BPH issues, no obvious infection was noted on his urine. Urine revealed some hematuria but no leukocyte esterase the patient CT without contrast revealed of the bladder wall did have moderate thickening surrounding edema correlating for cystitis. Patient will be treated with antibiotics and Pyridium advised further follow-up with primary care in 2 to 3 days which advised return the interim if any of his symptoms persist or worse. Lab Data 02/02/23 19:53 02/02/23 19:53 Radiology Impressions Abdomen/Pelvis CT 02/02/23 20:32 IMPRESSION: 1. Diffuse urinary bladder wall thickening with surrounding edema, please correlate for cystitis. 2. Trace nonspecific fluid in the pelvis. 3. Emphysematous changes. 4. Coronary artery atherosclerotic calcifications. 5. Moderate to large hiatal hernia. 6. Cholecystectomy. 7. Right kidney cysts, one of which is hyperdense, negative for follow-up advised. 8. Small bilateral fat containing inguinal hernias without bowel or inflammation. 9. Fusiform infrarenal abdominal aortic aneurysm measuring up to 2.7 cm. Laboratory Results WBC 4.40 10^3/uL (3.29-11.43) 02/02/23 19:53 RBC 4.45 10^6/uL (3.85-5.65) 02/02/23 19:53 Hgb 11.90 g/dL (11.27-16.99) 02/02/23 19:53 Hct 37.1 % (37-53) 02/02/23 19:53 MCV 83.4 fl (82-101) 02/02/23 19:53 MCH 26.7 pg (27-33) L 02/02/23 19:53 MCHC 32.1 g/dL (30-55) 02/02/23 19:53 RDW 17.8 % (12.1-15.1) H 02/02/23 19:53 Plt Count 206 10^3/cmm (157-399) 02/02/23 19:53 MPV 9.5 fL (7.4-10.4) 02/02/23 19:53 Neut % (Auto) 68.8 % 02/02/23 19:53 Lymph % (Auto) 18.2 % 02/02/23 19:53 [place] % (Auto) 9.1 % 02/02/23 19:53 Eos % (Auto) 3.0 % 02/02/23 19:53 Baso % (Auto) 0.7 % 02/02/23 19:53 Neut # (Auto) 3.03 10^3/uL (1.8-7.7) 02/02/23 19:53 Lymph # (Auto) 0.8 10^3/uL (0.8-4.8) 02/02/23 19:53 [place] # (Auto) 0.4 10^3/uL (0.2-0.9) 02/02/23 19:53 Eos # (Auto) 0.1 10^3/uL (0.0-0.8) 02/02/23 19:53 Baso # (Auto) 0.0 10^3/uL (0.0-0.1) 02/02/23 19:53 Nucleated RBC % (auto) 0 % 02/02/23 19:53 Nucleated RBCs # 0.0 /100WBC 02/02/23 19:53 Sodium 137 mmol/L (136-145) 02/02/23 19:53 Potassium 3.6 mmol/L (3.5-5.1) 02/02/23 19:53 Chloride 96 mmol/L (98-107) L 02/02/23 19:53 Carbon Dioxide 31 mmol/L (22-29) H 02/02/23 19:53 Anion Gap 13.6 (5-19) 02/02/23 19:53 BUN 11 mg/dL (8-23) 02/02/23 19:53 Creatinine 0.8 mg/dL (0.7-1.2) 02/02/23 19:53 GFR Calculation 96.1 mL/min (90-130) 02/02/23 19:53 Glucose 120 mg/dL (65-115) H 02/02/23 19:53 Calculated Osmolality 285 mOsm/kg (285-295) 02/02/23 19:53 Calcium 9.3 mg/dL (8.5-10.5) 02/02/23 19:53 C-Reactive Protein 27.1 mg/L (0.0-4.9) H 02/02/23 19:53 Urine Color Yellow (Yellow) 02/02/23 19:41 Urine Appearance Hazy (CLEAR) A 02/02/23 19:41 Urine pH 7 (5-7) 02/02/23 19:41 Ur Specific [place] 1.015 (1.005-1.030) 02/02/23 19:41 Urine Protein 1+ (Negative) H 02/02/23 19:41 Urine Glucose (UA) Norm (Normal) 02/02/23 19:41 Urine Ketones Negative (Negative) 02/02/23 19:41 Urine Blood 3+ (Negative) H 02/02/23 19:41 Urine Nitrate Negative (Negative) 02/02/23 19:41 Urine Bilirubin Neg (Negative) 02/02/23 19:41 Urine Urobilinogen 1 mg/dL (Negative) H 02/02/23 19:41 Ur Leukocyte Esterase Negative (Negative) 02/02/23 19:41 Ur Microscopic Indic Cancelled 02/02/23 19:41 Urine RBC 10-15 /hpf (0-2) H 02/02/23 19:41 Urine WBC None /hpf (0-5) 02/02/23 19:41 Ur Squamous Epith Cells Rare /hpf (0-5) 02/02/23 19:41 Amorphous Sediment Not Reportable 02/02/23 19:41 Urine Bacteria None /hpf (NONE) 02/02/23 19:41 Discharge Plan Discharge Patient Disposition: Home Clinical Impression: Cystitis, Hematuria Condition: Stable Prescriptions: New levofloxacin 500 mg tablet 500 mg PO DAILY 7 Days Qty: 7 0RF Pyridium 100 mg tablet 100 mg PO Q8H PRN (Reason: pain) Qty: 9 0RF No Action lorazepam 1 mg tablet 0.5 mg PO Q6H PRN (Reason: Severe Nausea) Qty: 10 3RF Rx Instructions: 1-2 tabs prn seer nausea or sleep bill to [facility] emergency fund please prednisone 5 mg tablet 5 mg PO DAILY Qty: 30 6RF hydrocodone-acetaminophen 5-325 mg tablet 2 tab PO Q4H PRN (Reason: pain) 5 Days Qty: 60 0RF Rx Instructions: 1-2 tabs every 4 hours prn pain prochlorperazine maleate [Compazine] 10 mg tablet 10 mg PO Q4H PRN (Reason: Mild Nausea) Qty: 30 1RF loratadine 10 mg tablet 10 mg PO DAILY Qty: 90 1RF aspirin 325 mg tablet 325 mg PO DAILY Hold Instructions: Resume on 04/24/22. Spiriva Respimat 1.25 mcg/actuation mist See Rx Instructions inhalation BID Patient Comments: Strength unknown Rx Instructions: inhaled twice a day; ferrous sulfate 325 mg (65 mg iron) tablet 325 mg PO DAILY Qty: 90 1RF Rx Instructions: take on empty stomach one hour before a meal with a glass of orange juice abiraterone 250 mg tablet 250 mg PO DAILY Qty: 30 1RF Hold Instructions: Doctor's Order Rx Instructions: Must be taken with or within 30 minutes of a low fat breakfast atorvastatin 20 mg tablet 10 mg PO BEDTIME ipratropium-albuterol 0.5 mg-3 mg(2.5 mg base)/3 mL solution for nebulization 3 ml INHALATION Q6H Eliquis 5 mg Tablet 5 mg PO BID Qty: 60 0RF Hold Instructions: Resume on 04/21/22. omeprazole 20 mg capsule,delayed release(DR/EC) 40 mg PO DAILY digoxin 250 mcg (0.25 mg) Tablet 250 mcg PO DAILY Qty: 30 0RF metoprolol tartrate 50 mg Tablet 75 mg PO BID Qty: 90 0RF docusate sodium [Stool Softener] 100 mg capsule 100 mg PO DAILY PRN (Reason: Constipation) nitroglycerin [Nitrostat] 0.4 mg Tablet, Sublingual 0.4 mg SUBLINGUAL Q5M PRN (Reason: Chest Pain) Rx Instructions: FOR 3 DOSES potassium chloride 20 mEq Tablet Extended Release 10 meq PO DAILY furosemide [Lasix] 40 mg tablet 40 mg PO QAM Flomax 0.4 mg Capsule 0.4 mg PO DAILY levothyroxine 125 mcg Tablet 125 mcg PO DAILY olodaterol 2.5 mcg/actuation Mist 2 inh INHALATION DAILY albuterol sulfate 90 mcg/actuation HFA aerosol inhaler 2 inh INHALATION Q4H PRN (Reason: shortness of breath or wheezing) Qty: 18 0RF Discharge Orders: Discharge ED (Routine); Ordered 02/02/23 Ordered By: Newton Mcdaniels Referrals: Isela Gipson FNP [Primary Care Provider] - 1-3 days Discharge Diet: Advance as tolerated Discharge Activity: Increase activity as tolerated Patient Instructions: Urinary Tract Infection in Men (DC), Pain Management Activity Restrictions/Additional Instructions: Please drink lots of water over the next 1 week, please further follow-up with primary care doctor take medications as prescribed, please return in the interim if any of your symptoms persist or worse. 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 of Care Code ED Nuclear Control Room Operator for Kevin Arceo
[2023-02-02 21:00] VITALS: BP 175/87; PULSE 71; O2SAT 96
[2023-02-02 22:43] VITALS: BP 155/88; PULSE 87; O2SAT 94
== END 2023-02-02 22:45 | disposition home or self-care (01) ==
PROVIDERS: Emergency Provider Emergency Medicine; PCP Nurse Practitioner
DX: N30.91 Cystitis, unspecified with hematuria (principal); Z79.82 Long term (current) use of aspirin; Z79.01 Long term (current) use of anticoagulants; Z87.891 Personal history of nicotine dependence; I11.0 Hypertensive heart disease with heart failure; I50.9 Heart failure, unspecified; J44.9 Chronic obstructive pulmonary disease, unspecified; I25.10 Atherosclerotic heart disease of native coronary artery without angina pectoris; E78.5 Hyperlipidemia, unspecified; Z85.46 Personal history of malignant neoplasm of prostate; Z95.1 Presence of aortocoronary bypass graft
CPT/HCPCS: 51798; 74176; 80048; 81001; 85025; 86140; 87086; 96360; 96361; 99284; J7040

== ENCOUNTER 2023-02-25 09:18 | Oncology outpatient (recurring) (ONCR) | payer OTHER, SELFPAY ==
[2023-02-25 09:23] VITALS: BP 178/74; PULSE 84; RESP 16; TEMP 36.7; O2SAT 90
[2023-02-25 09:41] LABS: Basophils % 0.4 %; Eosinophils # 0.1 10^3/uL (0.0-0.8); Eosinophils % 2.9 %; Hematocrit 30.1 % (37-53); Lymphocytes # 0.5 10^3/uL (0.8-4.8); Lymphocytes % 16.7 %; Mean Corpuscular HGB Conc 32.2 g/dL (30-55); Mean Corpuscular Hemoglobin 27.8 pg (27-33); Mean Corpuscular Volume 86.2 fl (82-101); Mean Platelet Volume 9.4 fL (7.4-10.4); Monocytes # 0.3 10^3/uL (0.2-0.9); Monocytes % 9.4 %; Neutrophils # 1.94 10^3/uL (1.8-7.7); Neutrophils % 70.2 %; Nucleated Red Blood Cells % 0 %; Platelet Count 151 10^3/cmm (157-399); Red Blood Count 3.49 10^6/uL (3.85-5.65); Red Cell Distribution Width 18.1 % (12.1-15.1); White Blood Count 2.76 10^3/uL (3.29-11.43)
[2023-02-25 09:59] LABS: Alanine Aminotransferase 10 U/L (0-41); Albumin Level 3.6 g/dL (3.5-5.2); Alkaline Phosphatase 83 U/L (40-130); Anion Gap 10.6 (5-19); Aspartate Amino Transferase 15 U/L (0-40); Blood Urea Nitrogen 15 mg/dL (8-23); Calcium 8.5 mg/dL (8.5-10.5); Carbon Dioxide 30 mmol/L (22-29); Chloride 104 mmol/L (98-107); Ferritin 182 ng/mL (30-400); Glomerular Filtration Rate 96.1 mL/min (90-130); Glucose 190 mg/dL (65-115); Iron 25 ug/dL (59-158); Osmolality Calculated 298 mOsm/kg (285-295); Percent Saturation 12.4 % (20-50); Potassium 3.6 mmol/L (3.5-5.1); Sodium 141 mmol/L (136-145); Total Bilirubin 0.2 mg/dL (0.15-1.2); Total Iron Binding Capacity 201 mcg/dl; Total Protein 6.6 g/dL (6.6-8.7); Unsaturated Iron Binding 176 ug/dL (112-347)
[2023-02-25 10:16] LABS: Prostate Specific Antigen < 0.014 ng/mL (0-4)
[2023-02-25 10:23] LABS: Testosterone Total 2.5 ng/dL (193-740)
[2023-02-25] MEDS: leuprolide 22.5 mg Kit IM (11:44)
[2023-02-25 11:58] VITALS: BP 172/72; PULSE 77; RESP 18; TEMP 36.9; O2SAT 96
== END 2023-03-02 23:59 | disposition home or self-care (01) ==
PROVIDERS: Nurse Practitioner Family; PCP Nurse Practitioner; Visit Provider Internal Medicine Medical Oncology
DX: C61 Malignant neoplasm of prostate (principal); D50.9 Iron deficiency anemia, unspecified
CPT/HCPCS: 36591; 80053; 82728; 83540; 83550; 84153; 84403; 85025; 96402; 99214; J1642; J9217

== ENCOUNTER 2023-03-07 09:17 | Outpatient (CLI) | payer OTHER, SELFPAY ==
--- NOTE | 2023-03-07 09:30 | NM_ITS ---
WS: [id number] NUCLEAR MEDICINE BONE SCAN Radiopharmaceutical: 24.7 Tc-99m MDP mCi IV Injection site: Antecubital Postinjection imaging delay: 1 hr CLINICAL INFORMATION: Prostate cancer COMPARISON: 10/19/2021 bone scan FINDINGS: Bone lesions: There are no osseous lesions suspicious for metastatic disease. Soft tissue contours: Normal. Kidneys: Normal. Other findings: Degenerative type uptake in both shoulders and AC joints. Degenerative uptake in both knees and both ankles. IMPRESSION: No evidence of osseous metastatic disease.
== END 2023-03-07 09:18 | disposition home or self-care (01) ==
LOC: RAD 09:18
PROVIDERS: PCP Nurse Practitioner; Visit Provider Internal Medicine Medical Oncology
DX: C61 Malignant neoplasm of prostate (principal)
CPT/HCPCS: 78306; A9561

== ENCOUNTER 2023-03-20 09:00 | Oncology outpatient (recurring) (ONCR) | payer OTHER, SELFPAY ==
[2023-03-12 10:00] VITALS: BP 158/72; PULSE 77; RESP 16; TEMP 36.3
[2023-03-12] MEDS: sodium chloride 0.9% 250 ML 75 ML IV (10:45)
[2023-03-12] MEDS: ferric carboxy (IVPB) 750 MG in sodium chloride 0.9% (100 ml) 100 ML 345 MG IV (10:45)
[2023-03-12 11:30] VITALS: BP 158/71; PULSE 78; RESP 16; TEMP 36.3; O2SAT 98
[2023-03-20 09:10] VITALS: BP 145/69; PULSE 83; RESP 16; O2SAT 93
[2023-03-20] MEDS: ferric carboxy (IVPB) 750 MG in sodium chloride 0.9% (100 ml) 100 ML 345 MG IV (09:29)
[2023-03-20 10:05] VITALS: BP 162/70; PULSE 73; RESP 16; TEMP 36.8; O2SAT 96
== END 2023-04-02 23:59 | disposition home or self-care (01) ==
PROVIDERS: PCP Nurse Practitioner; Visit Provider Internal Medicine Medical Oncology
DX: Z45.2 Encounter for adjustment and management of vascular access device (principal); Z95.828 Presence of other vascular implants and grafts
CPT/HCPCS: 96365; J1439; J1642; J7050

== ENCOUNTER 2023-04-18 08:53 | Oncology outpatient (recurring) (ONCR) | payer OTHER, SELFPAY ==
[2023-04-18 10:05] VITALS: BP 127/75; PULSE 70; RESP 18; TEMP 36.6; O2SAT 95
== END 2023-05-02 23:59 | disposition home or self-care (01) ==
LOC: ONCMED 08:54
PROVIDERS: PCP Nurse Practitioner; Visit Provider Internal Medicine Medical Oncology
DX: Z45.2 Encounter for adjustment and management of vascular access device (principal)
CPT/HCPCS: 96523; J1642

== ENCOUNTER 2023-05-15 10:37 | Emergency (ER) | payer OTHER, SELFPAY ==
--- NOTE | 2023-05-15 10:40 | XR_ITS ---
WS: [id number] Exam: XR chest 1V portable [id number] Date/Time of Exam: 05/15/2023 10:40 AM Reason For Exam: sob Comparison 07/30/2022. The lungs are hyperinflated. Chronic bibasilar fibrosis noted. Emphysematous changes in the mid and u pper lung zones. Heart size top limits normal. No pleural effusion or pneumothorax. Signs of previous CABG surgery. Right-sided subclavian port ending in the lower one third of the SVC. Bony structures are intact. IMPRESSION: 1. Pulmonary hyperinflation with bibasal interstitial fibrotic changes. Stable. 2. No acute process noted.
[2023-05-15 10:44] VITALS: BP 129/70; PULSE 79; RESP 16; TEMP 36.5; O2SAT 92; BMI 28.7
[2023-05-15 11:07] LABS: Basophils % 0.4 %; Eosinophils % 0.3 %; Hematocrit 39.3 % (37-53); Lymphocytes # 0.7 10^3/uL (0.8-4.8); Lymphocytes % 8.9 %; Mean Corpuscular HGB Conc 33.3 g/dL (30-55); Mean Corpuscular Volume 92.9 fl (82-101); Mean Platelet Volume 9.4 fL (7.4-10.4); Monocytes # 0.5 10^3/uL (0.2-0.9); Monocytes % 6.9 %; Neutrophils # 6.49 10^3/uL (1.8-7.7); Neutrophils % 83.2 %; Nucleated Red Blood Cells % 0 %; Platelet Count 163 10^3/cmm (157-399); Red Blood Count 4.23 10^6/uL (3.85-5.65); White Blood Count 7.79 10^3/uL (3.29-11.43)
[2023-05-15 11:12] LABS: INR 1.43 (0.8-1.2)
--- NOTE | 2023-05-15 11:20 | CT_ITS ---
WS: [id number] CTA CHEST FOLLOWED BY ABDOMEN AND PELVIS TECHNIQUE: Noncontrast plus contrast enhanced CTA of the chest, abdomen, and pelvis with coronal and sagittal reformatted images and additional MIP Images. CLINICAL INFORMATION: hemoptysis, abd pain COMPARISON: CT renal stone 02/02/2023 DLP: 1103.[address] scans at [facility] use at least one of these dose optimization techniques: automated e xposure control; mA and/or kV adjustment per patient size (includes targeted exams where dose is matc hed to clinical indication); or iterative reconstruction. FINDINGS: Proximal main pulmonary arteries are normal. Normal segmental and subsegmental pulmonary arteries. No evidence of pulmonary embolus. Prior sternotomy. Prior CABG. No mediastinal or hilar lymphadenopathy . No axillary lymphadenopathy. Advanced chronic emphysematous changes with bulla formation in the upper lobes. Airspace infiltrates in the LEFT lower lobe. Moderate to large esophageal hiatal hernia. Prior cholecystectomy. Diffuse fatty filtration of the liver. Prior cholecystectomy. Few tiny hepatic cysts. Normal portal v ein and splenic vein. Normal pancreatic parenchymal enhancement. Normal spleen. Moderate to large eso phageal hiatal hernia. Adrenal glands are normal. Normal renal parenchymal enhancement. No hydronephr osis. RIGHT renal cyst. Splenic artery calcification. Slightly aneurysmal distal abdominal aorta measuring 2.5 x 2.6 cm. Mild prostate enlargement with calcification. Mild diffuse bladder wall thickening likely due to blad daxa outlet obstruction. Tiny fat-containing umbilical hernia. IMPRESSION: 1. No evidence of pulmonary embolus. 2. Airspace infiltrates LEFT lower lobe compatible with pneumonia. 3. Advanced chronic emphysematous changes with bullous formation. 4. Moderate to large esophageal hiatal hernia appears unchanged. 5. Diffuse fatty filtration of the liver. 6. Prior cholecystectomy. 7. Mild prostate enlargement evidence of bladder outlet obstruction. Recommend correlation PSA. 8. Serpiginous sclerotic changes in the femoral heads compatible with avascular necrosis.
[2023-05-15 11:28] LABS: Alanine Aminotransferase 49 U/L (0-41); Albumin Level 4.3 g/dL (3.5-5.2); Alkaline Phosphatase 98 U/L (40-130); Anion Gap 14.9 (5-19); Aspartate Amino Transferase 21 U/L (0-40); Blood Urea Nitrogen 21 mg/dL (8-23); Calcium 9.8 mg/dL (8.5-10.5); Carbon Dioxide 30 mmol/L (22-29); Chloride 96 mmol/L (98-107); Globulin 3.3 g/dL (1.3-4.6); Glomerular Filtration Rate 66.6 mL/min (90-130); Glucose 163 mg/dL (65-115); Lipase 16 U/L (13-60); NT Pro B Type Natriuretic Pept 1398 pg/mL (0-125); Osmolality Calculated 291 mOsm/kg (285-295); Potassium 3.9 mmol/L (3.5-5.1); Sodium 137 mmol/L (136-145); Total Bilirubin 1.4 mg/dL (0.15-1.2); Total Protein 7.6 g/dL (6.6-8.7)
[2023-05-15] MEDS: iohexol 350 mg/mL 500 mL Btl (per mL) IV (11:51)
[2023-05-15 11:58] LABS: SARS Covid-2 Antigen negative (Negative)
--- NOTE | 2023-05-15 12:09 | ED_ITS ---
HPI - SOB/Dyspnea 2 General: Chief Complaint: Shortness of Breath/Dyspnea Stated Complaint: abd pain, sob Time Seen by Provider: 05/15/23 11:15 Source: patient Mode of arrival: ambulatory Limitations: no limitations History of Present Illness: HPI Narrative: 67-year-old male has a history of COPD s tates over the last 2 days he has had cough congestion states he had some slight hemoptysis this morning. States has been having diffuse abdominal pain as well. Denies any chest pain he is in no severe distress here is not requiring oxygen he denies any fevers. Associated symptoms: Reports abdominal pain and hemoptysis; Deny chest pain, fever(s), nausea or vomiting Review of Systems 2 Const: Denies: fever(s), chills, body aches or change in appetite ENMT: Denies: throat pain or dental pain Card: Denies: chest pain Resp: Reports: dyspnea, non-productive cough and hemoptysis GI: Reports: abdominal pain; Denies: nausea, vomiting or diarrhea Musc: Denies: neck pain or back pain Skin/Breast: Denies: rash Neuro: Denies: headache(s) PFSH ED 2 PFSH: Medical History Prostate cancer Elevated PSA History of colon polyps Chronic anticoagulation eliquis, for afib Chronic respiratory failure with hypoxia Colon polyps Heart failure with preserved ejection fraction Coronary artery disease CHF (congestive heart failure) Last echocardiogram normal EF, grade 2/4 diastolic dysfunction October 2019 Hypertension Anemia Atrial fibrillation Coronary artery disease GERD (gastroesophageal reflux disease) Hypothyroidism Hyperlipidemia COPD (chronic obstructive pulmonary disease) Surgical History S/P appendectomy S/P cholecystectomy History of colonoscopy (~04/2020) History of vasectomy History of knee surgery History of coronary artery bypass graft (03/2019) [address] [place] [address] Family History Father , IN HIS 50'S Lung disease tuberculosis Mother , AT AGE 63 CAD (coronary artery disease) Diabetes Hypertension Sister Cancer Denies family history of Clotting disorder Dementia Hyperlipidemia Psychiatric illness Chronic kidney disease (CKD) Suicide Anesthesia complication Bleeding disorder Stroke Social History Smoking and tobacco/nicotine status: former use of tobacco/nicotine Quit status (tobacco/nicotine): has quit using Year quit tobacco: 2017 - 4 PPD x 52 Years Alcohol intake: never Substance/Drug Use: never Lives independently: Yes Household members: none Marital status: Legally Current occupational status: employed and retired Do you think of yourself as: Straight/Heterosexual Current gender identity: Male Physical Exam 2 Const: COMMON NORMALS: no acute distress, patient oriented x3 and healthy appearing HENMT: COMMON NORMALS: normocephalic and atraumatic HEAD & SCALP: n ormocephalic and atraumatic Eye: COMMON NORMALS: Equal, round and reactive pupils present and EOMs intact bilaterally PUPIL: Yes Equal, round and reactive pupils present Neck/C-Spine: COMMON NORMALS: full ROM and supple Chest: COMMONS NORMALS: normal inspection of the chest and normal palpation of entire chest wall Resp: COMMON NORMALS: normal respiratory effort, No retractions, No use of accessory muscles and clear to auscultation bilaterally AUSCULTATION: clear to auscultation bilaterally Cardio: COMMON NORMALS: regular rate, regular rhythm and No murmurs present (Cardio) RATE: regular rate RHYTHM: regular rhythm GI: COMMON NORMALS: Normal to inspection, nondistended, normoactive bowel sounds present, Soft to palpation, non-tender and no masses PALPATION: Yes Soft to palpation Extremity: COMMON NORMALS: normal to inspection and full ROM Neuro: COMMON NORMALS: patient oriented x3, moves all extremities and no focal motor deficits Psych: COMMON NORMALS: mental status grossly normal, Normal thought process present and cooperative THOUGHT PROCESS: Normal thought process present Skin: COMMON NORMALS: no rashes or lesions noted and no wounds GENERAL SKIN EXAM: no rashes or lesions noted Course 2 Vital Signs: Vital signs: Vital Signs Temperature 97.7 F 05/15/23 10:44 Pulse Rate 79 05/15/23 10:44 Respiratory Rate 16 05/15/23 10:44 Blood Pressure 129/70 05/15/23 10:44 Pulse Oximetry 92 05/15/23 10:44 Oxygen Delivery Me thod Room Air 05/15/23 10:44 MDM - SOB/Dyspnea Medical Decision Making Patient presents with cough along hemoptysis CT does show pneumonia he has been in no distress here pulse ox has been normal we will treat with doxycycline at home he is to follow-up with PCP and return if worsening he understands agrees to plan. Medical Records I reviewed the patient's medical records. Lab Data I reviewed the patient's lab results. 05/15/23 10:55 05/15/23 10:55 Labs/Radiology: Laboratory Results WBC 7.79 10^3/uL (3.29-11.43) 05/15/23 10:55 RBC 4.23 10^6/uL (3.85-5.65) 05/15/23 10:55 Hgb 13.10 g/dL (11.27-16.99) 05/15/23 10:55 Hct 39.3 % (37-53) 05/15/23 10:55 MCV 92.9 fl (82-101) 05/15/23 10:55 MCH 31.0 pg (27-33) 05/15/23 10:55 MCHC 33.3 g/dL (30-55) 05/15/23 10:55 RDW 15.0 % (12.1-15.1) 05/15/23 10:55 Plt Count 163 10^3/cmm (157-399) 05/15/23 10:55 MPV 9.4 fL (7.4-10.4) 05/15/23 10:55 Neut % (Auto) 83.2 % 05/15/23 10:55 Lymph % (Auto) 8.9 % 05/15/23 10:55 [place] % (Auto) 6.9 % 05/15/23 10:55 Eos % (Auto) 0.3 % 05/15/23 10:55 Baso % (Auto) 0.4 % 05/15/23 10:55 Neut # (Auto) 6.49 10^3/uL (1.8-7.7) 05/15/23 10:55 Lymph # (Auto) 0.7 10^3/uL (0.8-4.8) L 05/15/23 10:55 [place] # (Auto) 0.5 10^3/uL (0.2-0.9) 05/15/23 10:55 Eos # (Auto) 0.0 10^3/uL (0.0-0.8) 05/15/23 10:55 Baso # (Auto) 0.0 10^3/uL (0.0-0.1) 05/15/23 10:55 Nucleated RBC % (auto) 0 % 05/15/23 10:55 Nucleated RBCs # 0.0 /100WBC 05/15/23 10:55 PT 18.00 SECONDS (12.1-14.9) H 05/15/23 10:55 INR 1.43 (0.8-1.2) H 05/15/23 10:55 Sodium 137 mmol/L (136-145) 05/15/23 10:55 Potassium 3.9 mmol/L (3.5-5.1) 05/15/23 10:55 Chloride 96 mmol/L (98-107) L 05/15/23 10:55 Carbon Dioxide 30 mmol/L (22-29) H 05/15/23 10:55 Anion Gap 14.9 (5-19) 05/15/23 10:55 BUN 21 mg/dL (8-23) 05/15/23 10:55 Creatinine 1.1 mg/dL (0.7-1.2) 05/15/23 10:55 GFR Calculation 66.6 mL/min (90-130) L 05/15/23 10:55 Glucose 163 mg/dL (65-115) H 05/15/23 10:55 Calculated Osmolality 291 mOsm/kg (285-295) 05/15/23 10:55 Calcium 9.8 mg/dL (8.5-10.5) 05/15/23 10:55 Total Bilirubin 1.4 mg/dL (0.15-1.2) H 05/15/23 10:55 AST 21 U/L (0-40) 05/15/23 10:55 ALT 49 U/L (0-41) H 05/15/23 10:55 Alkaline Phosphatase 98 U/L (40-130) 05/15/23 10:55 NT-Pro-B Natriuret Pep 1398 pg/mL (0-125) H 05/15/23 10:55 Total Protein 7.6 g/dL (6.6-8.7) 05/15/23 10:55 Albumin 4.3 g/dL (3.5-5.2) 05/15/23 10:55 Globulin 3.3 g/dL (1.3-4.6) 05/15/23 10:55 Lipase 16 U/L (13-60) 05/15/23 10:55 SARS-CoV-2 Ag (Rapid) negative (Negative) 05/15/23 11:38 All radiology interpretation(s) finalized by discharge EKG Data EKG 1: I personally reviewed and interpreted this EKG as follows: EKG Interpretation Date: 05/15/23 EKG interpretation time: 10:52 Interpretation: nsr hr [address] or t wave abnormalities qrs 137 qtc 442 Discharge Plan Discharge Patient Disposition: Home Clinical Impression: Pneumonia Qualifiers: Pneumonia type: due to unspecified organism Laterality: left Lung location: l ower lobe of lung Qualified Code(s): J18.9 - Pneumonia, unspecified organism Condition: Stable Prescriptions: New doxycycline hyclate 100 mg tablet 100 mg PO BID 7 Days Qty: 14 0RF No Action lorazepam 1 mg tablet 0.5 mg PO Q6H PRN (Reason: Severe Nausea) Qty: 10 3RF Rx Instructions: 1-2 tabs prn seer nausea or sleep bill to [facility] emergency fund please prednisone 5 mg tablet 5 mg PO DAILY Qty: 30 6RF prochlorperazine maleate [Compazine] 10 mg tablet 10 mg PO Q4H PRN (Reason: Mild Nausea) Qty: 30 1RF aspirin 325 mg tablet 325 mg PO DAILY Hold Instructions: Resume on 04/24/22. Spiriva Respimat 1.25 mcg/actuation mist 1 puff inhalation BID Patient Comments: Strength unknown Rx Instructions: inhaled twice a day; ferrous sulfate 325 mg (65 mg iron) tablet 325 mg PO DAILY Qty: 90 1RF Rx Instructions: take on empty stomach one hour before a meal with a glass of orange juice atorvastatin 20 mg tablet 10 mg PO BEDTIME ipratropium-albuterol 0.5 mg-3 mg(2.5 mg base)/3 mL solution for nebulization 3 ml INHALATION Q6H Eliquis 5 mg Tablet 5 mg PO BID Qty: 60 0RF Hold Instructions: Resume on 04/21/22. omeprazole 20 mg capsule,delayed release(DR/EC) 40 mg PO DAILY digoxin 250 mcg (0.25 mg) Tablet 250 mcg PO DAILY Qty: 30 0RF metoprolol tartrate 50 mg Tablet 75 mg PO BID Qty: 90 0RF nitroglycerin [Nitrostat] 0.4 mg Tablet, Sublingual 0.4 mg SUBLINGUAL Q5M PRN (Reason: Chest Pain) Rx Instructions: FOR 3 DOSES potassium chloride 20 mEq Tablet Extended Release 10 meq PO DAILY furosemide [Lasix] 40 mg tablet 40 mg PO QAM levothyroxine 125 mcg Tablet 125 mcg PO DAILY olodaterol 2.5 mcg/actuation Mist 2 inh INHALATION DAILY Flomax 0.4 mg capsule 0.8 mg PO DAILY albuterol sulfate 90 mcg/actuation HFA aerosol inhaler 2 inh INHALATION Q4H PRN (Reason: shortness of breath or wheezing) Qty: 18 0RF dorzolamide-timolol 22.3-6.8 mg/mL drops 1 drp ophthalmic (eye) BID prednisolone acetate 1 % drops,suspension 1 drp ophthalmic (eye) QID loratadine 10 mg tablet 10 mg PO DAILY abiraterone 250 mg tablet 250 mg PO QAM Rx Instructions: Must be taken with or within 30 minutes of a low fat breakfast Discharge Orders: Discharge ED (Routine); Ordered 05/15/23 Ordered By: Liz Fuentes Referrals: Isela Gipson FNP [Primary Care Provider] - 1-3 days Discharge Diet: Advance as tolerated Discharge Activity: Resume usual activity Patient Instructions: Pneumonia (ED) 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 of Care Code ED Chief Executive Officer for Kevin Arceo
[2023-05-15] MEDS: doxycycline 100 mg Tablet PO (12:58)
== END 2023-05-15 12:59 | disposition home or self-care (01) ==
PROVIDERS: Emergency Provider Emergency Medicine; PCP Nurse Practitioner
DX: J18.9 Pneumonia, unspecified organism (principal); Z79.82 Long term (current) use of aspirin; Z79.01 Long term (current) use of anticoagulants; Z11.52 Encounter for screening for COVID-19; Z87.891 Personal history of nicotine dependence; Z95.1 Presence of aortocoronary bypass graft; Z85.46 Personal history of malignant neoplasm of prostate; I25.10 Atherosclerotic heart disease of native coronary artery without angina pectoris; I11.0 Hypertensive heart disease with heart failure; I50.9 Heart failure, unspecified; E78.5 Hyperlipidemia, unspecified; J44.9 Chronic obstructive pulmonary disease, unspecified
CPT/HCPCS: 36415; 71045; 71275; 74177; 80053; 83690; 83880; 85025; 85610; 87426; 99285; Q9967

== ENCOUNTER 2023-05-20 11:17 | Oncology outpatient (recurring) (ONCR) | payer OTHER, SELFPAY ==
[2023-05-20 11:41] VITALS: BP 139/66; PULSE 61; RESP 16; TEMP 36.7; O2SAT 95
[2023-05-20 11:55] LABS: Basophils % 0.6 %; Eosinophils # 0.1 10^3/uL (0.0-0.8); Eosinophils % 1.8 %; Hematocrit 34.5 % (37-53); Lymphocytes # 0.5 10^3/uL (0.8-4.8); Lymphocytes % 10.7 %; Mean Corpuscular HGB Conc 33.6 g/dL (30-55); Mean Corpuscular Hemoglobin 30.9 pg (27-33); Mean Corpuscular Volume 91.8 fl (82-101); Mean Platelet Volume 9.6 fL (7.4-10.4); Monocytes # 0.4 10^3/uL (0.2-0.9); Monocytes % 7.7 %; Neutrophils % 78.8 %; Nucleated Red Blood Cells % 0 %; Platelet Count 166 10^3/cmm (157-399); Red Blood Count 3.76 10^6/uL (3.85-5.65); Red Cell Distribution Width 14.1 % (12.1-15.1); White Blood Count 4.95 10^3/uL (3.29-11.43)
[2023-05-20 12:22] LABS: Alanine Aminotransferase 41 U/L (0-41); Albumin Level 3.9 g/dL (3.5-5.2); Alkaline Phosphatase 92 U/L (40-130); Anion Gap 10.7 (5-19); Aspartate Amino Transferase 23 U/L (0-40); Blood Urea Nitrogen 13 mg/dL (8-23); Calcium 8.8 mg/dL (8.5-10.5); Carbon Dioxide 30 mmol/L (22-29); Chloride 100 mmol/L (98-107); Globulin 2.6 g/dL (1.3-4.6); Glomerular Filtration Rate 96.1 mL/min (90-130); Glucose 163 mg/dL (65-115); Osmolality Calculated 288 mOsm/kg (285-295); Potassium 3.7 mmol/L (3.5-5.1); Sodium 137 mmol/L (136-145); Testosterone Total 2.5 ng/dL (193-740); Total Bilirubin 0.3 mg/dL (0.15-1.2); Total Protein 6.5 g/dL (6.6-8.7)
[2023-05-20 12:25] LABS: Prostate Specific Antigen < 0.014 ng/mL (0-4)
[2023-05-20] MEDS: leuprolide 22.5 mg Kit IM (14:03)
== END 2023-06-02 23:59 | disposition home or self-care (01) ==
PROVIDERS: Internal Medicine Medical Oncology; PCP Nurse Practitioner; Visit Provider Internal Medicine Medical Oncology
DX: Z45.2 Encounter for adjustment and management of vascular access device (principal); Z95.828 Presence of other vascular implants and grafts; E61.1 Iron deficiency; C61 Malignant neoplasm of prostate
CPT/HCPCS: 36591; 80053; 84153; 84403; 85025; 96402; 99214; J1642; J9217

== ENCOUNTER 2023-06-17 18:27 | Inpatient (IN) | payer OTHER, SELFPAY ==
[2023-06-17 18:28] VITALS: BP 187/90; PULSE 104; TEMP 39.1; O2SAT 95; BMI 29.2
--- NOTE | 2023-06-17 18:35 | XRR_ITS ---
PROCEDURE INFORMATION: Exam: XR Chest Exam date and time: 06/17/2023 6:40 PM Age: 67 years old Clinical indication: Other: AMS; Prior surgery; Surgery date: 6+ months; Surgery type: Open heart; Additional info: SOB TECHNIQUE: Imaging protocol: Radiologic exam of the chest. Views: 1 view. COMPARISON: CT angio chest w abd pel w con 05/15/2023 11:47 AM FINDINGS: Tubes, catheters and devices: Right-sided Port-A-Cath. Lungs: Bilateral mid to lower lung field left greater than right atelectasis versus minimal infiltrate. Emphysematous changes. Pleural spaces: Unremarkable. No pleural effusion. No pneumothorax. Heart/Mediastinum: Unremarkable. No cardiomegaly. Bones/joints: Sternotomy wires. XR/XR chest 1V portable [id number] IMPRESSION: 1. Bilateral mid to lower lung field left greater than right atelectasis versus minimal infiltrate. 2. Emphysematous changes. 3. Sternotomy wires. 4. Right-sided Port-A-Cath.
--- NOTE | 2023-06-17 18:35 | CTR_ITS ---
PROCEDURE INFORMATION: Exam: CT Head Without Contrast Exam date and time: 06/17/2023 6:59 PM Age: 67 years old Clinical indication: Altered mental status/memory loss; Additional info: AMS TECHNIQUE: Imaging protocol: Computed tomography of the head without contrast. Radiation optimization: All CT scans at this facility use at least one of these dose optimization techniques: automated exposure control; mA and/or kV adjustment per patient size (includes targeted exams where dose is matched to clinical indication); or iterative reconstruction. COMPARISON: NM bone scan whole body* [id number] 03/07/2023 9:30 AM RADIATION DOSE METRICS: Total DLP (mGy-cm): 1248 FINDINGS: Brain: Mild diffuse white matter disease likely reflecting chronic microvascular ischemic changes. Cerebral ventricles: No ventriculomegaly. Paranasal sinuses: Visualized sinuses are unremarkable. No fluid levels. Mastoid air cells: Visualized mastoid air cells are well aerated. Bones/joints: Unremarkable. No acute fracture. Soft tissues: Unremarkable. CT/CT head wo con* [id number] IMPRESSION: Negative for intracranial hemorrhage or mass effect
--- NOTE | 2023-06-17 18:35 | ECG_ITS ---
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 Measurements Intervals [place] Rate: 104 P: 114 AK: 171 QRS: 79 QRSD: 126 T: 97 QT: 339 QTc: 447 Interpretive Statements SINUS TACHYCARDIA WITH FREQUENT SUPRAVENTRICULAR PREMATURE COMPLEXES IN A BIGEMINAL PATTERN RIGHT BUNDLE BRANCH BLOCK [120+ ms QRS DURATION, UPRIGHT V1, 40+ ms S IN I/aVL/V4/V5/V6] ST DEPRESSION, CONSIDER SUBENDOCARDIAL INJURY [0.1+ mV ST DEPRESSION] INTERPRETATION BASED ON A DEFAULT AGE OF 40 YEARS Compared to ECG 07/30/2022 17:41:26 ST (T wave) deviation now present Indeterminate axis no longer present Myocardial infarct finding no longer present T-wave abnormality no longer present Possible ischemia no longer present Electronically Signed On 06-18-2023 10:08:40 PATIENT SERVICES COORDINATOR by Mathew Sanchez M.D. [id number]
--- NOTE | 2023-06-17 18:48 | ED_ITS ---
HPI - Altered Mental Status 2 General: Chief Complaint: Altered Mental Status Stated Complaint: AMS Time Seen by Provider: 06/17/23 18:32 Source: patient Mode of arrival: ambulatory Limitations: no limitations History of Present Illness: 67-year-old male who was found to be alt ered unsure when last known normal was patient is febrile here 102 he is requiring oxygen here with heavier breathing he does not wear oxygen at baseline per EMS. He does have a history of COPD and prostate cancer and A-fib. Patient's only able to tell me his name not really able to answer any other questions at this time. Review of Systems 2 General: Reports: ROS unobtainable due to mental status PFSH ED 2 PFSH: Medical History Prostate cancer Elevated PSA History of colon polyps Chronic anticoagulation eliquis, for afib Chronic respiratory failure with hypoxia Colon polyps Heart failure with preserved ejection fraction Coronary artery disease CHF (congestive heart failure) Last echocardiogram normal EF, grade 2/4 diastolic dysfunction October 2019 Hypertension Anemia Atrial fibrillation Coronary artery disease GERD (gastroesophageal reflux disease) Hypothyroidism Hyperlipidemia COPD (chronic obstructive pulmonary disease) Surgical History S/P appendectomy S/P cholecystectomy History of colonoscopy (~04/2020) History of vasectomy History of knee surgery History of coronary artery bypass graft (03/2019) [address] [place] [address] Family History Father , IN HIS 50'S Lung disease tuberculosis Mother , AT AGE 63 CAD (coronary artery disease) Diabetes Hypertension Sister Cancer Denies family history of Clotting disorder Dementia Hyperlipidemia Psychiatric illness Chronic kidney disease (CKD) Suicide Anesthesia complication Bleeding disorder Stroke Social History Smoking and tobacco/nicotine status: former use of tobacco/nicotine Quit status (tobacco/nicotine): has quit using Year quit tobacco: 2017 - PPD x 52 Years Alcohol intake: never Substance/Drug Use: never Lives independently: Yes Household members: none Marital status: Legally Current occupational status: employed and retired Do you think of yourself as: Straight/Heterosexual Current gender identity: Male Course 2 Vital Signs: Vital signs: Vital Signs Temperature 102.3 F H 06/17/23 18:28 Pulse Rate 109 H 06/17/23 20:27 Respiratory Rate 22 H 06/17/23 20:27 Blood Pressure 130/79 06/17/23 20:27 Pulse Oximetry 100 06/17/23 20:27 Oxygen Delivery Me thod Nasal Cannula 06/17/23 20:27 Oxygen Flow Rate 3 06/17/23 20:27 MDM - Altered Mental Status Medical Decision Making Patient presents with altered mental status along with a fever he did test positive for influenza here x-ray showed a possible pneumonia lactates pending did give IV antibiotics spoke to the hospitalist who is going to admit. Medical Records I reviewed the patient's medical records. Lab Data I reviewed the patient's lab results. 06/17/23 19:43 06/17/23 18:54 Radiology Impressions Chest X-Ray 06/17/23 18:35 IMPRESSION: 1. Bilateral mid to lower lung field left greater than right atelectasis versus minimal infiltrate. 2. Emphysematous changes. 3. Sternotomy wires. 4. Right-sided Port-A-Cath. Head CT 06/17/23 18:35 IMPRESSION: Negative for intracranial hemorrhage or mass effect Laboratory Results WBC 2.72 10^3/uL (3.29-11.43) L 06/17/23 19:43 Corrected WBC Cancelled 06/17/23 18:54 RBC 3.88 10^6/uL (3.85-5.65) 06/17/23 19:43 Hgb 12.20 g/dL (11.27-16.99) 06/17/23 19:43 Hct 37.0 % (37-53) 06/17/23 19:43 MCV 95.4 fl (82-101) 06/17/23 19:43 MCH 31.4 pg (27-33) 06/17/23 19:43 MCHC 33.0 g/dL (30-55) 06/17/23 19:43 RDW 15.0 % (12.1-15.1) 06/17/23 19:43 Plt Count 94 10^3/cmm (157-399) L 06/17/23 19:43 MPV 9.5 fL (7.4-10.4) 06/17/23 19:43 Gran % Cancelled 06/17/23 18:54 Neut % (Auto) 78.6 % 06/17/23 19:43 Lymph % (Auto) 7.7 % 06/17/23 19:43 [place] % (Auto) 12.9 % 06/17/23 19:43 Eos % (Auto) 0.0 % 06/17/23 19:43 Baso % (Auto) 0.4 % 06/17/23 19:43 Neut # (Auto) 2.14 10^3/uL (1.8-7.7) 06/17/23 19:43 Lymph # (Auto) 0.2 10^3/uL (0.8-4.8) L 06/17/23 19:43 [place] # (Auto) 0.4 10^3/uL (0.2-0.9) 06/17/23 19:43 Eos # (Auto) 0.0 10^3/uL (0.0-0.8) 06/17/23 19:43 Baso # (Auto) 0.0 10^3/uL (0.0-0.1) 06/17/23 19:43 Absolute Gran (auto) Cancelled 06/17/23 18:54 Nucleated RBC % (auto) 0 % 06/17/23 19:43 Nucleated RBCs # 0.0 /100WBC 06/17/23 19:43 PT 14.40 SECONDS (12.1-14.9) 06/17/23 18:54 INR 1.09 (0.8-1.2) 06/17/23 18:54 Specimen Type Arterial 06/17/23 18:42 Sample Site Radial, left 06/17/23 18:42 ABG pH 7.44 (7.35-7.45) 06/17/23 18:42 ABG pCO2 39.8 mmHg (35-45) 06/17/23 18:42 ABG pO2 92.5 mmHg (80.0-100.0) 06/17/23 18:42 ABG PO2/FiO2 Ratio 0 06/17/23 18:42 ABG HCO3 26.7 mmol/L (22-26) H 06/17/23 18:42 ABG Base Excess 2.3 mmol/L (-2.0-2.0) H 06/17/23 18:42 Derek Test Pos 06/17/23 18:42 Hematocrit 38.6 % (42-52) L 06/17/23 18:42 O2 Delivery Device Nc 06/17/23 18:42 O2 Liters/Min 2.0 % 06/17/23 18:42 FiO2 28.0 % 06/17/23 18:42 Exterior Interior Specialist ID Cak 06/17/23 18:42 Sodium 135 mmol/L (136-145) L 06/17/23 18:54 Potassium 3.8 mmol/L (3.5-5.1) 06/17/23 18:54 Chloride 97 mmol/L (98-107) L 06/17/23 18:54 Carbon Dioxide 25 mmol/L (22-29) 06/17/23 18:54 Anion Gap 16.8 (5-19) 06/17/23 18:54 BUN 14 mg/dL (8-23) 06/17/23 18:54 Creatinine 0.8 mg/dL (0.7-1.2) 06/17/23 18:54 GFR Calculation 96.1 mL/min (90-130) 06/17/23 18:54 Glucose 135 mg/dL (65-115) H 06/17/23 18:54 Calculated Osmolality 283 mOsm/kg (285-295) L 06/17/23 18:54 Lactic Acid 1.5 mmol/L (0.5-2.2) 06/17/23 18:54 Calcium 8.8 mg/dL (8.5-10.5) 06/17/23 18:54 Magnesium 2.0 mg/dL (1.7-2.3) 06/17/23 18:54 Total Bilirubin 1.0 mg/dL (0.15-1.2) 06/17/23 18:54 AST 44 U/L (0-40) H 06/17/23 18:54 ALT 42 U/L (0-41) H 06/17/23 18:54 Alkaline Phosphatase 91 U/L (40-130) 06/17/23 18:54 Ammonia 23 umol/L (16-60) 06/17/23 18:54 Troponin T Baseline 45 ng/L (0-15) H 06/17/23 18:54 NT-Pro-B Natriuret Pep 8671 pg/mL (0-125) H 06/17/23 18:54 Total Protein 6.7 g/dL (6.6-8.7) 06/17/23 18:54 Albumin 4.1 g/dL (3.5-5.2) 06/17/23 18:54 Globulin 2.6 g/dL (1.3-4.6) 06/17/23 18:54 TSH 1.89 uIU/mL (0.27-4.20) 06/17/23 18:54 Urine Color Yellow (Yellow) 06/17/23 16:26 Urine Appearance Sl hazy (CLEAR) A 06/17/23 16:26 Urine pH 5 (5-7) 06/17/23 16:26 Ur Specific [place] 1.025 (1.005-1.030) 06/17/23 16:26 Urine Protein 1+ (Negative) H 06/17/23 16:26 Urine Glucose (UA) Norm (Normal) 06/17/23 16:26 Urine Ketones 1+ (Negative) H 06/17/23 16:26 Urine Blood 3+ (Negative) H 06/17/23 16:26 Urine Nitrate Negative (Negative) 06/17/23 16:26 Urine Bilirubin Neg (Negative) 06/17/23 16:26 Urine Urobilinogen Norm mg/dL (Negative) 06/17/23 16:26 Ur Leukocyte Esterase Negative (Negative) 06/17/23 16:26 Urine RBC 5-10 /hpf (0-2) H 06/17/23 16:26 Urine WBC 0-4 /hpf (0-5) H 06/17/23 16:26 Ur Squamous Epith Cells 0-4 /hpf (0-5) H 06/17/23 16:26 Amorphous Sediment 1+ /hpf 06/17/23 16:26 Urine Bacteria Trace /hpf (NONE) 06/17/23 16:26 Digoxin 0.9 ng/mL (0.6-1.2) 06/17/23 18:54 Ethyl Alcohol < 10 mg/dL (0-10) 06/17/23 18:54 Influenza Type A Ag positive (Negative) H 06/17/23 19:43 Influenza Type B Ag negative (Negative) 06/17/23 19:43 SARS-CoV-2 Ag (Rapid) negative (Negative) 06/17/23 19:43 All radiology interpretation(s) finalized by discharge Critical Care Time 2 Critical Care Time: Critical Care Time: Yes Total Critical Care Time: 40 Attestation: The high probability of a clinically significant, sudden or life threatening deterioration of the patient's resp/cv system(s) required my full and direct attention, intervention and personal management. The critical care time is as shown. This time is in addition to time spent performing any reported procedures but includes the following: [x] Data and vital sign review and interpretation [x] Patient assessment, examination and intervention [x] Documentation [x] Medication orders and management Discharge Plan Discharge Patient Disposition: Admitted As Inpatient Admit Provider: Segundo Trinh Clinical Impression: Influenza, Altered mental status, Atrial fibrillation with RVR Condition: Stable 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 of Care Code ED Control Clerk Food And Beverage for Kevin Arceo
[2023-06-17 18:53] LABS: ABG PCO2 39.8 mmHg (35-45); ABG PH Result 7.44 (7.35-7.45); Arterial Blood Gas Hematocrit 38.6 % (42-52); Base Excess ABG 2.3 mmol/L (-2.0-2.0); Blood Gas Allen Test Pos; Blood Gas Operator Identificat CAK; Blood Gas Sample Site Radial, left; Blood Gas Sample Type Arterial; HCO3 ABG 26.7 mmol/L (22-26); Oxygen Device NC; PO2 ABG 92.5 mmHg (80.0-100.0); PO2 FiO2 Ratio Arterial Blood 0
[2023-06-17 19:13] LABS: INR 1.09 (0.8-1.2)
[2023-06-17 19:18] LABS: Digoxin 0.9 ng/mL (0.6-1.2)
[2023-06-17 19:19] LABS: Troponin(5th) Baseline 45 ng/L (0-15)
[2023-06-17 19:20] LABS: Ammonia 23 umol/L (16-60)
[2023-06-17] MEDS: sodium chloride 0.9% 1,000 ML 999 ML IV (19:30)
[2023-06-17 19:33] LABS: Alanine Aminotransferase 42 U/L (0-41); Albumin Level 4.1 g/dL (3.5-5.2); Alkaline Phosphatase 91 U/L (40-130); Blood Urea Nitrogen 14 mg/dL (8-23); Calcium 8.8 mg/dL (8.5-10.5); Carbon Dioxide 25 mmol/L (22-29); Chloride 97 mmol/L (98-107); Globulin 2.6 g/dL (1.3-4.6); Glomerular Filtration Rate 96.1 mL/min (90-130); Glucose 135 mg/dL (65-115); NT Pro B Type Natriuretic Pept 8671 pg/mL (0-125); Osmolality Calculated 283 mOsm/kg (285-295); Sodium 135 mmol/L (136-145); Thyroid Stimulating Hormone 1.89 uIU/mL (0.27-4.20); Total Protein 6.7 g/dL (6.6-8.7)
[2023-06-17 19:35] LABS: Alcohol Level < 10 mg/dL (0-10); Anion Gap 16.8 (5-19); Aspartate Amino Transferase 44 U/L (0-40); Potassium 3.8 mmol/L (3.5-5.1)
[2023-06-17 19:50] LABS: Basophils % 0.4 %; Lymphocytes # 0.2 10^3/uL (0.8-4.8); Lymphocytes % 7.7 %; Mean Corpuscular Hemoglobin 31.4 pg (27-33); Mean Corpuscular Volume 95.4 fl (82-101); Mean Platelet Volume 9.5 fL (7.4-10.4); Monocytes # 0.4 10^3/uL (0.2-0.9); Monocytes % 12.9 %; Neutrophils # 2.14 10^3/uL (1.8-7.7); Neutrophils % 78.6 %; Nucleated Red Blood Cells % 0 %; Platelet Count 94 10^3/cmm (157-399); Red Blood Count 3.88 10^6/uL (3.85-5.65); White Blood Count 2.72 10^3/uL (3.29-11.43)
[2023-06-17] MEDS: acetaminophen 500 mg Tablet 1000 MG PO (19:58)
[2023-06-17 20:05] LABS: Add Urine Microscopic? YES; Bilirubin Urine Neg (Negative); Blood Urine 3+ (Negative); Glucose Urine UA Norm (Normal); Ketones Urine 1+ (Negative); Leukocyte Esterase Urine Negative (Negative); Nitrate Urine Negative (Negative); Protein Urine 1+ (Negative); Specific Gravity, Urine 1.025 (1.005-1.030); Urine Appearance SL Hazy (CLEAR); Urine Color Yellow (Yellow); Urobilinogen Urine Norm (Negative); pH Urine 5 (5-7)
[2023-06-17 20:06] LABS: Add Urine Culture? No; Amorphous Sediment Urine 1+ /hpf; Bacteria Urine TRACE /hpf; Squamous Epithelial Cell Urine 0-4 /hpf (0-5); WBC Urine 0-4 /hpf (0-5)
[2023-06-17 20:07] LABS: Influenza A by IFA positive (Negative); Influenza B by IFA negative (Negative); SARS Covid-2 Antigen negative (Negative)
[2023-06-17] MEDS: vancomycin 1,000 MG in sodium chloride 0.9% 250 ML 250 MG IV (20:19)
[2023-06-17] MEDS: piperacillin-tazobactam 3.375 GM in sodium chloride 0.9% (plus) 50 ML IV (20:26)
[2023-06-17 20:27] VITALS: BP 130/79; PULSE 109; RESP 22; O2SAT 100
[2023-06-17 20:35] LABS: Lactic Sepsis W/Reflex 1.5 mmol/L (0.5-2.2)
--- NOTE | 2023-06-17 20:35 | ECG_ITS ---
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 Measurements Intervals [place] Rate: 117 P: 0 VA: 0 QRS: 63 QRSD: 129 T: 57 QT: 347 QTc: 484 Interpretive Statements ATRIAL FIBRILLATION WITH RAPID VENTRICULAR RESPONSE RIGHT BUNDLE BRANCH BLOCK [120+ ms QRS DURATION, UPRIGHT V1, 40+ ms S IN I/aVL/V4/V5/V6] ST DEVIATION AND MODERATE T-WAVE ABNORMALITY, CONSIDER ANTERIOR ISCHEMIA [-0.1+ mV T-WAVE IN V3/V4] Compared to ECG 07/30/2022 17:41:26 Sinus tachycardia no longer present Indeterminate axis no longer present Myocardial infarct finding no longer present T-wave abnormality still present Possible ischemia still present Electronically Signed On 06-18-2023 19:42:04 WOOD GETTER by Mathew Sanchez M.D. [id number]
[2023-06-17] MEDS: oseltamivir phosphate 75 mg Capsule PO (20:44)
--- NOTE | 2023-06-17 20:44 | CTR_ITS ---
PROCEDURE INFORMATION: Exam: CTA Chest With Contrast Exam date and time: 06/17/2023 9:12 PM Age: 67 years old Clinical indication: Shortness of breath; Additional info: SOB TECHNIQUE: Imaging protocol: Computed tomographic angiography of the chest with contrast. Exam focused on the arteries. 3D rendering (Not supervised by radiologist): MIP and/or 3D reconstructed images were created by the technologist. Radiation optimization: All CT scans at this facility use at least one of these dose optimization techniques: automated exposure control; mA and/or kV adjustment per patient size (includes targeted exams where dose is matched to clinical indication); or iterative reconstruction. Contrast material: OMNI 350; Contrast volume: 146 ml; Contrast route: INTRAVENOUS (IV); COMPARISON: CT angio chest w abd pel w con 05/15/2023 11:47 AM RADIATION DOSE METRICS: Total DLP (mGy-cm): 503 FINDINGS: Pulmonary arteries: Normal. No pulmonary emboli. Aorta: Unremarkable. No aortic aneurysm. No aortic dissection. Lungs: Emphysematous changes. Bilateral dependent atelectasis versus minimal infiltrate. Pleural spaces: Unremarkable. No pneumothorax. No pleural effusion. Heart: Unremarkable. No cardiomegaly. No pericardial effusion. Coronary arteries: CABG changes. Mediastinal space: Fluid in the esophagus may be secondary to reflux, please correlate for esophagitis. Lymph nodes: Unremarkable. No enlarged lymph nodes. Diaphragm: Moderate hiatal hernia. Liver: Hepatic steatosis. Gallbladder and bile ducts: Cholecystectomy. Bones/joints: Unremarkable. No acute fracture. Soft tissues: Unremarkable. CT/CT angio chest PE protcl [id number] IMPRESSION: 1. Negative for pulmonary embolus 2. Hepatic steatosis. 3. Moderate hiatal hernia. 4. Fluid in the esophagus may be secondary to reflux, please correlate for esophagitis. 5. Emphysematous changes. 6. Bilateral dependent atelectasis versus minimal infiltrate. 7. Cholecystectomy. 8. CABG changes. COMMENTS: The presence of pulmonary emphysema on CT is an independent risk factor for lung cancer. In the absence of a history or active diagnosis of lung cancer, it is recommended that this patient with emphysema be evaluated for enrollment in a low dose CT lung cancer screening program.
--- NOTE | 2023-06-17 20:50 | PM.HP ---
Providers/Chief Complaint Admitting Physician: Segundo Trinh MD Primary Care Provider: PATO Hernandez Chief Complaint: AMS History of Present Illness Gabino Jones is a 67 year old male with a past medical history of atrial fibrillation, chronically on Eliquis, history of chronic respiratory failure, history of COPD, history of CHF diastolic CHF, history of CAD, history of hypothyroidism, hyperlipidemia, history of prostate cancer, chronically on prednisone, on abiraterone who presents [facility] due to altered mental status, shortness of breath. Currently patient is alert to person, not to place, not to time he can follow commands is quite encephalopathic is currently in A-fib with RVR heart rates in the 140s, blood pressure 160/110, he saturating mid 90s on 2 L, tachypneic, diffuse wheezing in all lung rivera, does look like he has mild respiratory distress, nasal flaring, slight suprasternal retractions, intrastromal to retractions, diffuse wheezing, according to ER physician, patient was found by gas station, where he lives in a camper, was very confused, cold per EMS, in the emergency room, he was found to have influenza a, bilateral pneumonia, with leukopenia, looks fluid overloaded bilateral pitting edema 2+, has received sepsis bolus, lactic acid within normal limits, baseline troponin 45, has transaminitis, Review of Systems General: Reports: ROS unobtainable due to mental status Medications/Allergies Home Medications Medication Instructions Recorded Confirmed Last Taken Type apixaban 5 mg tablet (Eliquis) 5 mg PO BID #60 tabs 10/16/19 05/20/23 05/15/23 Rx atorvastatin 20 mg tablet 10 mg PO BEDTIME 10/27/19 05/20/23 05/14/23 History digoxin 250 mcg (0.25 mg) tablet 250 mcg PO DAILY #30 tabs 01/22/20 05/20/23 05/15/23 Rx metoprolol tartrate 50 mg tablet 75 mg (1.5 x 50 mg) PO BID #90 tabs 01/22/20 05/20/23 05/15/23 Rx omeprazole 20 mg capsule,delayed 40 mg PO DAILY 10/04/20 05/20/23 05/15/23 History release furosemide 40 mg tablet (Lasix) 40 mg PO QAM 03/28/21 05/20/23 05/14/23 History nitroglycerin 0.4 mg sublingual 0.4 mg sublingual Q5M PRN Chest 03/28/21 05/20/23 04/15/22 History tablet (Nitrostat) Pain potassium chloride 20 mEq 10 meq PO DAILY 03/28/21 05/20/23 05/14/23 History tablet,extended release aspirin 325 mg tablet 325 mg PO DAILY 01/10/22 05/20/23 05/14/23 History lorazepam 1 mg tablet 0.5 mg (1/2 x 1 mg) PO Q6H PRN 05/02/22 05/20/23 Unknown Rx Severe Nausea #10 tabs levothyroxine 125 mcg tablet 125 mcg PO DAILY 06/25/22 05/20/23 05/15/23 History olodaterol 2.5 mcg/actuation mist 2 inh inhalation DAILY 06/25/22 05/20/23 05/15/23 History for inhalation albuterol sulfate 90 mcg/actuation 2 inh inhalation Q4H PRN shortness 07/27/22 05/20/23 Unknown Rx aerosol inhaler of breath or wheezing #18 grams tiotropium bromide 1.25 1 puff inhalation BID 11/29/22 05/20/23 05/15/23 History mcg/actuation mist for inhalation (Spiriva Respimat) ferrous sulfate 325 mg (65 mg 325 mg PO DAILY #90 tabs 12/07/22 05/20/23 05/15/23 Rx iron) tablet ipratropium 0.5 mg-albuterol 3 mg 3 ml inhalation Q6H Shortness Of 12/27/22 05/20/23 Unknown History (2.5 mg base)/3 mL nebulization Breath soln prochlorperazine maleate 10 mg 10 mg PO Q4H PRN Mild Nausea #30 12/27/22 05/20/23 Unknown Rx tablet (Compazine) tabs tamsulosin 0.4 mg capsule (Flomax) 0.8 mg PO DAILY 02/25/23 05/20/23 05/15/23 History dorzolamide 22.3 mg-timolol 6.8 1 drp ophthalmic (eye) BID 05/15/23 05/20/23 05/15/23 History mg/mL eye drops loratadine 10 mg tablet 10 mg PO DAILY 05/15/23 05/20/23 Unknown History prednisolone acetate 1 % eye 1 drp ophthalmic (eye) QID 05/15/23 05/20/23 Unknown History drops,suspension abiraterone 250 mg tablet 250 mg PO QAM #30 tabs 05/29/23 Unknown Rx prednisone 5 mg tablet 5 mg PO DAILY #30 tabs 05/29/23 Unknown Rx Allergies Allergy/AdvReac Type Severity Reaction Status Date / Time No Known Allergies Allergy Verified 06/17/23 18:40 PFSH Acute PFSH: Medical History Prostate cancer Elevated PSA History of colon polyps Chronic anticoagulation eliquis, for afib Chronic respiratory failure with hypoxia Colon polyps Heart failure with preserved ejection fraction Coronary artery disease CHF (congestive heart failure) Last echocardiogram normal EF, grade 2/4 diastolic dysfunction October 2019 Hypertension Anemia Atrial fibrillation Coronary artery disease GERD (gastroesophageal reflux disease) Hypothyroidism Hyperlipidemia COPD (chronic obstructive pulmonary disease) Surgical History S/P appendectomy S/P cholecystectomy History of colonoscopy (~04/2020) History of vasectomy History of knee surgery History of coronary artery bypass graft (03/2019) [address] [place] [address] Family History Father , IN HIS 50'S Lung disease tuberculosis Mother , AT AGE 63 CAD (coronary artery disease) Diabetes Hypertension Sister Cancer Denies family history of Clotting disorder Dementia Hyperlipidemia Psychiatric illness Chronic kidney disease (CKD) Suicide Anesthesia complication Bleeding disorder Stroke Social History Smoking and tobacco/nicotine status: former use of tobacco/nicotine Quit status (tobacco/nicotine): has quit using Year quit tobacco: 2017 - PPD x 52 Years Alcohol intake: never Substance/Drug Use: never Lives independently: Yes Household members: none Marital status: Legally Current occupational status: employed and retired Do you think of yourself as: Straight/Heterosexual Current gender identity: Male Vitals/I&O/Wt Last Vital Signs Temp 102.3 F H 06/17/23 18:28 Pulse 109 H 06/17/23 20:27 Resp 22 H 06/17/23 20:27 BP 130/79 06/17/23 20:27 Pulse Ox 100 06/17/23 20:27 O2 Del Method Nasal Cannula 06/17/23 20:27 O2 Flow Rate 3 06/17/23 20:27 06/17/23 06/17/23 06/17/23 06:59 14:59 22:59 Intake Total 1000 / 1000 Balance 1000 / 1000 Weight last 48 hrs Weight 92.533 kg Physical Exam Const: COMMON NORMALS: no acute distress EXAM LIMITATIONS: altered mental status ORIENTATION/CONSCIOUSNESS: Yes awake, Yes oriented to person and Yes confused; not oriented to place and not oriented to time Eye: COMMON NORMALS: Equal, round and reactive pupils present Neck/C-Spine: COMMON NORMALS: full ROM and no lymphadenopathy Lymph: LYMPHATIC: no lymphadenopathy noted Resp: EFFORT & INSPECTION: Yes symmetric chest movement, Yes tachypneic, Yes respiratory distress, Yes retractions and Yes audible wheezes AUSCULTATION: wheezes Cardio: COMMON NORMALS: regular rate, regular rhythm, S1 normal heart sound present and S2 normal heart sound present RATE: tachycardic RHYTHM: abnormal rhythm irregularly irregular HEART SOUNDS: S1 normal heart sound present and S2 normal heart sound present GI: COMMON NORMALS: Normal to inspection, nondistended, normoactive bowel sounds present, Soft to palpation and non-tender Extremity: COMMON NORMALS: no calf tenderness NARRATIVE EXTREMITY EXAM: 2+ pitting edema Neuro: OTHER: Does not follow neurologic testing Sepsis: Is patient septic: Yes Focused sepsis exam performed: Yes Focused sepsis exam: 2+ pitting edema, cap refill greater than 2 seconds, pale bilateral extremities, DP PT pulses are palpable but diminished, Date exam was performed: 06/17/23 Time exam was performed: 20:30 Data 06/17/23 19:43 06/17/23 18:54 A&P Assessment and plan (1) Acute encephalopathy: (2) Acute hypoxemic respiratory failure: (3) Bilateral pneumonia: (4) Influenza A: (5) Acute exacerbation of CHF (congestive heart failure): Qualifiers: Heart failure type: unspecified Qualified Code(s): I50.9 - Heart failure, unspecified (6) Atrial fibrillation with RVR: (7) NSTEMI (non-ST elevated myocardial infarction): (8) Sepsis: Plan Acute encephalopathy ? Likely secondary to sepsis, ? Likely secondary pneumonia, influenza A, A-fib with RVR ? High aspiration risk, keep n.p.o., speech therapy eval, neurochecks Acute hypoxic respiratory failure ?multifactorial ?influenza A, ? Secondary bacterial pneumonia bilateral, ? Has evidence of fluid overload, elevated BNP, 2+ pitting edema, diastolic CHF exacerbation, A-fib with RVR ? COPD exacerbation, diffuse wheezing, -Patient is in chronically immunocompromise state is on chronic prednisone, on abiraterone, history of prostate cancer ? Plan, ? Has received Tamiflu, continue, monitor QT interval closely, ? On amiodarone ? Monitor in cardiac stepdown unit, ? Continue vancomycin, Zosyn, ? Monitor blood cultures, ? Solu-Medrol 40 IV every 8 hours -Continue DuoNeb, budesonide ? Monitor respiratory status closely , BiPAP if needed ? Full code, ? Lovenox for DVT prophylaxis ? Currently patient is a high aspiration risk given his mentation, keep n.p.o. Influenza A, isolation Secondary bacterial pneumonia ? CT angiogram of the chest ordered ? Pro-Dennis, CRP Diastolic CHF exacerbation ? Given his features of sepsis I will hold off on Lasix for now ? Will consider based on clinical progress COPD exacerbation, as above, Sepsis ? Sepsis features given febrile, A-fib, encephalopathy, leukopenia, elevated troponins, Transaminitis, ? Likely sec to influenza A, second bacterial pneumonia A-fib with RVR, ? Hold p.o. medications ?continue amiodarone drip, ? Therapeutic Lovenox History of immunocompromise state, secondary prostate cancer on chronic prednisone History of anemia NSTEMI, ? Serial EKGs, serial troponins, telemetry monitoring ? Type I versus type II NSTEMI Attestations Medical Necessity Statement*: Patient requires hospitalization, inpatient, greater than 2 midnights, secondary to acute encephalopathy, acute hypoxic respiratory failure, influenza A, second bacterial pneumonia, diastolic CHF, COPD, sepsis, transaminitis, A-fib Diagnoses Acute encephalopathy G93.40 Acute hypoxemic respiratory failure J96.01 Bilateral pneumonia J18.9 Influenza A J10.1 Acute exacerbation of CHF (congestive heart failure) I50.9 Heart failure type: unspecified Atrial fibrillation with RVR I48.91 NSTEMI (non-ST elevated myocardial infarction) I21.4 Sepsis A41.9
[2023-06-17 20:57] VITALS: TEMP 37.4
[2023-06-17 21:01] LABS: INR 1.05 (0.8-1.2)
[2023-06-17 21:03] LABS: Troponin 5 2HR 39.06 ng/L (0-15)
[2023-06-17 21:04] LABS: Troponin 5 2HR Delta -5.94 ABS# (0-10)
[2023-06-17 21:07] LABS: C Reactive Protein 57.9 mg/L (0.0-4.9)
[2023-06-17 21:15] LABS: Procalcitonin 0.36 ng/mL (0-0.5)
[2023-06-17] MEDS: iohexol 350 mg/mL 500 mL Btl (per mL) IV (21:20)
[2023-06-17 21:37] LABS: Estmated Average Glucose 137; Hemoglobin A1C 6.4 % (4.0-6.0)
--- NOTE | 2023-06-17 21:44 | PC.PHAR ---
PHARMACY TO DOSE VANCOMYCIN Vanco Initial Dosing Patient Information Sex M M/F Last Name AYESHA AGE 67 years First Name SEA Ht 70 inches : 1955 ABW 92.533 kg Location: [facility] [place] IBW 73 kg If loading dose given: DW 92.533 kg Loading DOSE: 1500 mg SCr 0.8 mg/dl This Dose = 16.2 mg/kg CrCl 91.3 ml/min 1st dose Cmax: 20.8 mcg/ml Vd 69.97061 liters Time elapsed: 12.0 hrs Ke 0.080 hrs-1 Serum Conc. = 7.9 mcg/ml t1/2 9 hrs Hrs until 20 mcg/ml 1.5 hrs Hrs until 15 mcg/ml 5.1 hours Hrs until 10 mcg/ml 10.1 hours Dose Tau (Freq) Levels expected Standard 1500 12 Cmax 32.3 Targets 16.21 13.0 Cpeak 29.8 25 to 40 mg/kg hours Cmin 14.5 10 to 20
[2023-06-17 21:51] LABS: Glucose Point of Care 118 mg/dL (70-110)
[2023-06-17] MEDS: pantoprazole 40 mg SDV IVP (21:52)
[2023-06-17] MEDS: amiodarone 150 MG/100 ML PREMIX 400 MG IV (21:53)
[2023-06-17] MEDS: enoxaparin 100 mg/mL Syringe 90 MG SUBCUT (21:53)
[2023-06-17] MEDS: methylPREDNISolone sod succ 40 mg/mL INJ IVP (21:53)
[2023-06-17 22:45] LABS: Cortisol Random 12.09 ug/dL (2.47-19.5); Thyroid Stimulating Hormone 1.97 uIU/mL (0.27-4.20)
[2023-06-17 23:12] VITALS: PULSE 120
[2023-06-18] VITALS (17 sets, daily range): BP systolic 109–145; BP diastolic 54–74; PULSE 60–95; RESP 13–22; TEMP 36.4–37; O2SAT 95–97
[2023-06-18 01:01] LABS: Lymphocytes # 0.2 10^3/uL (0.8-4.8); Lymphocytes % 7.9 %; Mean Corpuscular HGB Conc 33.4 g/dL (30-55); Mean Corpuscular Hemoglobin 31.5 pg (27-33); Mean Corpuscular Volume 94.3 fl (82-101); Mean Platelet Volume 9.7 fL (7.4-10.4); Monocytes # 0.2 10^3/uL (0.2-0.9); Monocytes % 5.9 %; Neutrophils % 86.2 %; Nucleated Red Blood Cells % 0 %; Platelet Count 100 10^3/cmm (157-399); Red Blood Count 3.71 10^6/uL (3.85-5.65); Red Cell Distribution Width 15.3 % (12.1-15.1)
[2023-06-18 01:22] LABS: Lactic Sepsis W/Reflex 0.7 mmol/L (0.5-2.2)
[2023-06-18 01:26] LABS: Troponin 5 6HR 35.55 ng/L (0-15)
[2023-06-18 01:33] LABS: Alanine Aminotransferase 37 U/L (0-41); Albumin Level 3.8 g/dL (3.5-5.2); Alkaline Phosphatase 83 U/L (40-130); Anion Gap 13.8 (5-19); Aspartate Amino Transferase 51 U/L (0-40); Blood Urea Nitrogen 12 mg/dL (8-23); Calcium 8.3 mg/dL (8.5-10.5); Carbon Dioxide 25 mmol/L (22-29); Chloride 103 mmol/L (98-107); Globulin 2.2 g/dL (1.3-4.6); Glomerular Filtration Rate 96.1 mL/min (90-130); Glucose 135 mg/dL (65-115); NT Pro B Type Natriuretic Pept 8395 pg/mL (0-125); Osmolality Calculated 288 mOsm/kg (285-295); Phosphorus 4.2 mg/dL (2.5-4.5); Potassium 3.8 mmol/L (3.5-5.1); Sodium 138 mmol/L (136-145); Total Bilirubin 0.8 mg/dL (0.15-1.2)
[2023-06-18] MEDS: methylPREDNISolone sod succ 40 mg/mL INJ IVP (04:34)
[2023-06-18] MEDS: levothyroxine 100 mcg SDV 62.5 MCG IVP (04:34)
[2023-06-18] MEDS: piperacillin-tazobactam 3.375 GM in sodium chloride 0.9% (plus) 50 ML IV ×3 (04:40→21:54)
[2023-06-18 06:43] LABS: Glucose Point of Care 156 mg/dL (70-110)
[2023-06-18] MEDS: aspirin 81 mg Chew Tablet PO (07:49)
[2023-06-18] MEDS: enoxaparin 100 mg/mL Syringe 90 MG SUBCUT ×2 (07:49→20:04)
[2023-06-18] MEDS: oseltamivir phosphate 75 mg Capsule PO ×2 (07:49→18:42)
[2023-06-18] MEDS: vancomycin 1,500 MG/300 ML PIGGYBACK 200 MG IV ×2 (07:50→20:04)
[2023-06-18] MEDS: FUROsemide 10 mg/mL SDV 4mL 40 MG IVP (08:34)
[2023-06-18] MEDS: ipratropium-albuterol 3 mL Neb INHALATION ×4 (08:36→20:46)
[2023-06-18] MEDS: budesonide 0.5 mg/2 mL Neb INHALATION ×2 (08:36→20:46)
--- NOTE | 2023-06-18 08:36 | PC.PHAR ---
Addendum entered by Julita Hernandez 06/18/23 10:54: [facility] at 10:50 am Addendum entered by Julita Hernandez 06/18/23 09:15: still have not received med list as of 9:16am Original Note: [facility]ed [facility] at 8:00 am for [facility] list
[2023-06-18] MEDS: dorzolamide/timolol Op Soln 10 mL Btl 1 DROP EYE-BOTH ×2 (08:37→18:45)
--- NOTE | 2023-06-18 09:06 | PC.CHAP ---
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 signals collector/analyst visit [] Patient/Family/Request visit [] Outpatient visit [] Follow-up visit [] Physician referral [] Code/Alert [] Routine visit [] Staff referral [] Actively dying [] Patient sleeping [] Family support [] [] Out of room [] Palliative care [] [] Receiving care in room [] Pre-surgical visit [] Trauma [] Long length of stay [] ICU visit [x] Other:Contact precautions. No visit. Relational/Emotional Strength [] Patient feels connected with others/family/visitors/staff [] Distress [] Loneliness/isolation [] Abandonment Spirituality of Patient [] Person of [place] [] Attends Amish of their [place] [] Believes in Prayer [] Reads Bible or Latter-Day materials [] There are Spiritual issues to be addressed Assistant Farm Operations Manager Interventions [] Prayer [] Active listening [] Non-anxious presence [] Spiritual/emotional support [] Crisis/trauma care [] Spiritual counseling [] Bereavement support [] Provided bereavement packet [] Provided Bible/devotional materials [] Provided toy/stuffed animal, coloring book to patient or family member [] Provided Communion [] Anointing/[place] [] Salvation [] Completed spiritual assessment [] Other: Impact on Illness or Injury [] Angry [] Fearful [] Anxious [] Often cries [] Exhaustion [] Unable to work [] Unable to attend christian [] Unable to walk/stand [] Unable to read [] Unable to drive [] Unable to eat/drink [] Unable to sleep [] Unable to be with family [] Patient intubated [] Other: Summary Time spent with patient
--- NOTE | 2023-06-18 09:44 | P.PN_ITS ---
Subjective 2 Subjective: Gabino awakens briefly. He appears a little bit confused. States he is little bit short of breath. Medications: Reviewed: Yes Vitals/I&O/Wt Last Vital Signs Temp 98.6 F 06/18/23 08:48 Pulse 84 06/18/23 08:48 Resp 18 06/18/23 08:48 BP 145/74 06/18/23 08:48 Pulse Ox 96 06/18/23 08:48 O2 Del Method Nasal Cannula 06/18/23 08:37 O2 Flow Rate 2 06/18/23 08:37 06/17/23 06/18/23 06/18/23 22:59 06:59 14:59 Intake Total 1400 / 1400 200 / 1600 50 / 50 Output Total 275 / 275 Balance 1400 / 1400 -75 / 1325 50 / 50 Weight last 48 hrs Weight 98.656 kg Weight 98.157 kg Weight 92.533 kg Physical Exam 2 Narrative: General exam is white male, conversant, but likely slightly confused HEENT: Atraumatic normocephalic. Neck supple Cardiovascular regular rate and rhythm, occasional premature beat. Telemetry indicates sinus rhythm Lungs bilateral expiratory wheezes Abdomen is soft, positive bowel sounds Extremities 1+ edema bilaterally Urinary Catheter Management: Andrade: Cath Placed During This Visit: yes Reason for Continuing Indwelling Catheter: Accurate Measurement of Urinary Output in Critically Ill Patients Urinary Catheter Date of Insertion: 06/17/23 Urinary Catheter Time of Insertion: 20:55 Data 06/18/23 00:48 06/18/23 00:48 A&P Assessment and plan (1) Atrial fibrillation with RVR: Presented with A-fib with RVR Placed on an amiodarone drip Likely this is secondary to pneumonia and influenza. May not need amiodarone long-term. Digoxin level was done on admission and okay. He is also on metoprolol. Likely discontinue amiodarone with reinitiation of his medication. As he improves from his pneumonia and influenza he should return to his baseline control of A-fib. I believe he is on anticoagulation at home with Eliquis. He has been switched to Lovenox which is appropriate for inpatient. Likely resume Eliquis when he is stable. Check echocardiogram (2) Acute hypoxemic respiratory failure: Patient with acute hypoxic respiratory failure secondary to influenza/pneumonia (3) Influenza A: Continue Tamiflu Supportive care with oxygen (4) Community acquired pneumonia: Continue vancomycin, Zosyn currently Speech therapy evaluation Sputum culture MRSA PCR Has past history of smoking. Appears to have acute acute COPD exacerbation as well. Already on steroids for wheezing. At this point can reduce to prednisone 40 mg a day. Continue DuoNeb every 6 hours and budesonide twice daily (5) Acute encephalopathy: Continue to follow for improvement. CT head on admission negative (6) Prostate cancer: Continue hormonal suppression Plan Acute diastolic heart failure. He has evidence of edema, wheezing. Lasix 40 mg IV x 1, reassess. CBC, CMP in the morning Other medical problems as outlined in past medical history Full code Lovenox will suffice for DVT prophylaxis Will reconcile meds when they become available. Attestations 2 Medical Necessity Statement*: Needs continued hospital stay for IV antibiotics related to pneumonia, treatment of flu, support with breathing treatments and oxygen Diagnoses Atrial fibrillation with RVR I48.91 Acute hypoxemic respiratory failure J96.01 Influenza A J10.1 Community acquired pneumonia J18.9 Acute encephalopathy G93.40 Prostate cancer C61 Time Spent (min) 35
--- NOTE | 2023-06-18 09:55 | USCV_ITS ---
Robert Gabino Age: 67 Gender: M : 1955 Exam Date: 06/18/2023 12:58 Ordering Phys: Corwin Martini MD Technologist: BRIDGET Exam Location: [facility] Indication: AFIB BP: 119 / 64 HR: 76 Rhythm: Atrial fibrillation Technical Quality: Adequate MEASUREMENTS (Male / Female) Normal Values 2D ECHO LVOT Diameter 2.0 cm LV Ejection Fraction MOD 2C 57.5 % LV Ejection Fraction 2C AL 58.2 % LA Diameter 3.3 cm LA Width 3.2 cm LA Height 5.1 cm RA Width 4.3 cm RA Height 5.2 cm Aorta at Sinotubular Diameter 2.7 cm M-MODE Aortic Annulus Diameter 3.6 cm LA Ao Ratio MM 1.0 MV E Point Septal Separation 0.6 cm DOPPLER AV Peak Velocity 102.0 cm/s LVOT Peak Velocity 88.0 cm/s AV Area Cont Eq vti 2.8 cm squared AV Area Cont Eq pk 2.7 cm squared MV Peak Velocity 104.0 cm/s MV Area PHT 3.6 cm squared MV E' Velocity 55.5 cm/s Mitral E to MV E' Ratio 8.9 Mitral E to LV E' Lateral Ratio 6.3 Mitral E to LV E' Septal Ratio 14.7 TR Peak Velocity 141.8 cm/s TR Peak Gradient 8.0 mmHg TR Mean Velocity 101.8 cm/s TR Mean Gradient 4.9 mmHg TR Velocity Time Integral 36.0 cm TV Peak E Velocity 34.0 cm/s Right Atrial Pressure 8.0 mmHg Pulmonary Artery Systolic Pressu 16.0 mmHg PV Peak Velocity 89.0 cm/s RV Acceleration Time 0.1 s RV Ejection Time 0.3 s RV AcT/ET 0.2 FINDINGS Left Ventricle Normal left ventricular size, systolic function and wall thickness, with no regional wall motion abnormalities. Rhythm precludes evaluation of diastolic function. Left ventricular ejection fraction is estimated at 60 %. Right Ventricle Normal right ventricular size and systolic function. Normal right ventricular systolic pressure. Right Atrium Mildly increased right atrial size. Left Atrium Mildly increased left atrial size. Mitral Valve Structurally normal mitral valve without significant stenosis or prolapse. There is no mitral regurgitation. Aortic Valve Structurally normal aortic valve without significant sclerosis or stenosis. There is no aortic regurgitation. Tricuspid Valve Structurally normal tricuspid valve without significant stenosis or regurgitation. Pulmonary artery systolic pressure is normal. Pulmonic Valve Pulmonic valve not well visualized. Pericardium Normal pericardium without effusion. Aorta Normal ascending aorta dimension. IVC The inferior vena cava appears normal. CONCLUSIONS Normal left ventricular size, systolic function and wall thickness, with no regional wall motion abnormalities. Rhythm precludes evaluation of diastolic function. Left ventricular ejection fraction is estimated at 60 %. Mildly increased right atrial size. Mildly increased left atrial size. From the previous echo done in 2019, the atrial fibrillation is new. Otherwise, no change. Dr. Luis Fernando Dill MD (Electronically Signed) Final Date: 18 June 2023 16:16 S
[2023-06-18 12:22] LABS: Glucose Point of Care 176 mg/dL (70-110)
[2023-06-18] MEDS: metoprolol tartrate 50 mg Tablet 75 MG PO (18:42)
[2023-06-18] MEDS: pantoprazole 40 mg SDV IVP (20:04)
[2023-06-18] MEDS: atorvastatin 40 mg Tablet 10 MG PO (20:04)
[2023-06-18] MEDS: morphine 4 mg/mL SDV 1 mL 2 MG IVP (20:19)
[2023-06-18 21:51] LABS: Glucose Point of Care 124 mg/dL (70-110)
[2023-06-19] VITALS (16 sets, daily range): BP systolic 136–164; BP diastolic 63–92; PULSE 58–136; RESP 12–22; TEMP 36.3–36.9; O2SAT 92–97
[2023-06-19] MEDS: piperacillin-tazobactam 3.375 GM in sodium chloride 0.9% (plus) 50 ML IV ×3 (06:19→21:22)
[2023-06-19 06:34] LABS: Glucose Point of Care 103 mg/dL (70-110)
[2023-06-19 07:11] LABS: Eosinophils % 0.3 %; Hematocrit 34.6 % (37-53); Lymphocytes # 0.5 10^3/uL (0.8-4.8); Lymphocytes % 16.6 %; Mean Corpuscular HGB Conc 33.8 g/dL (30-55); Mean Corpuscular Hemoglobin 31.6 pg (27-33); Mean Corpuscular Volume 93.5 fl (82-101); Mean Platelet Volume 9.8 fL (7.4-10.4); Monocytes # 0.3 10^3/uL (0.2-0.9); Monocytes % 9.6 %; Neutrophils % 73.2 %; Nucleated Red Blood Cells % 0 %; Platelet Count 118 10^3/cmm (157-399); White Blood Count 3.14 10^3/uL (3.29-11.43)
[2023-06-19] MEDS: levothyroxine 100 mcg SDV 62.5 MCG IVP (07:16)
[2023-06-19 07:28] LABS: Alanine Aminotransferase 37 U/L (0-41); Albumin Level 3.5 g/dL (3.5-5.2); Alkaline Phosphatase 66 U/L (40-130); Anion Gap 11.4 (5-19); Aspartate Amino Transferase 37 U/L (0-40); Blood Urea Nitrogen 26 mg/dL (8-23); Calcium 8.6 mg/dL (8.5-10.5); Carbon Dioxide 32 mmol/L (22-29); Chloride 99 mmol/L (98-107); Globulin 2.4 g/dL (1.3-4.6); Glomerular Filtration Rate 83.9 mL/min (90-130); Glucose 96 mg/dL (65-115); Osmolality Calculated 293 mOsm/kg (285-295); Potassium 3.4 mmol/L (3.5-5.1); Sodium 139 mmol/L (136-145); Total Bilirubin 0.4 mg/dL (0.15-1.2); Total Protein 5.9 g/dL (6.6-8.7)
[2023-06-19 07:30] LABS: Vancomycin Trough 15.8 ug/mL (10-15)
[2023-06-19] MEDS: ipratropium-albuterol 3 mL Neb INHALATION ×4 (07:47→20:11)
[2023-06-19] MEDS: budesonide 0.5 mg/2 mL Neb INHALATION ×2 (07:47→20:11)
--- NOTE | 2023-06-19 07:56 | P.PN_ITS ---
Documented by User: IRINA Mendoza STDLUCI 06/19/23 10:23 Subjective 2 Subjective: Patient resting in bed on 2 L nasal cannula receiving a breathing treatment currently. He reports some difficulty breathing with exertion, and some dizziness getting up out of bed. Mr. Jones stated he had trouble sleeping overnight due to increased SOB and needing breathing treatment. Medications: Reviewed: Yes Vitals/I&O/Wt Last Vital Signs Temp 97.4 F L 06/19/23 04:28 Pulse 70 06/19/23 07:47 Resp 18 06/19/23 07:47 BP 136/68 06/19/23 04:28 Pulse Ox 94 06/19/23 07:47 O2 Del Method Nasal Cannula 06/19/23 07:47 O2 Flow Rate 2 06/19/23 07:47 06/18/23 06/19/23 06/19/23 22:59 06:59 14:59 Intake Total 670 / 1140 50 / 1190 Output Total 2175 / 4075 250 / 4325 Balance -1505 / -2935 -200 / -3135 Weight last 48 hrs Weight 209 lb 6 oz Weight 217 lb 8 oz Weight 216 lb 6.4 oz Weight 204 lb Physical Exam 2 Narrative: General exam is a pleasant white male, conversant. HEENT: Atraumatic normocephalic. Neck supple, no lymphadenopathy. Cardiovascular regular rate and rhythm, occasional premature beat. Telemetry indicates sinus rhythm. Lungs expiratory wheezes to left upper lobe, right lobe diminished. Abdomen is soft, positive bowel sounds Extremities 1+ edema bilaterally Urinary Catheter Management: Andrade: Cath Placed During This Visit: yes Reason for Continuing Indwelling Catheter: Accurate Measurement of Urinary Output in Critically Ill Patients Urinary Catheter Date of Insertion: 06/17/23 Urinary Catheter Time of Insertion: 20:55 Data 06/19/23 07:04 06/19/23 07:04 A&P Assessment and plan (1) Atrial fibrillation with RVR: Presented with A-fib with RVR Discontinued amiodarone drip 06/18/23 continue home medications Likely this is secondary to pneumonia and influenza. Digoxin level was done on admission and okay. As he improves from his pneumonia and influenza he should return to his baseline control of A-fib. I believe he is on anticoagulation at home with Eliquis. He has been switched to Lovenox which is appropriate for inpatient. Likely resume Eliquis when he is stable. Echocardiogram completed on 06/18/23 indicated an EF of 60%. (2) Acute hypoxemic respiratory failure: Patient with acute hypoxic respiratory failure secondary to influenza/pneumonia (3) Influenza A: Continue Tamiflu Supportive care with oxygen, on 2L NC. (4) Community acquired pneumonia: Continue vancomycin, Zosyn currently. Speech therapy evaluation completed - patient did not display overt symptoms of aspiration with soft textures or thin liquids. Continue regular liquids and soft and bite size consistency of level 6. As patient becomes stronger will upgrade to level 7. Sputum culture, pending. MRSA PCR ordered. Has past history of smoking. Appears to have acute acute COPD exacerbation as well. Already on steroids for wheezing. Continue prednisone 40 mg a day. Continue DuoNeb every 6 hours and budesonide twice daily (5) Acute encephalopathy: Continue to follow for improvement. CT head on admission negative (6) Prostate cancer: Continue hormonal suppression Plan Acute diastolic heart failure. He has evidence of edema, wheezing. Potassium was 3.4 this a.m., replaced with 40meq of potassium p.o. potassium this a.m. Lasix 40 mg p.o daily ordered. Physical therapy ordered. CBC, CMP in the morning Other medical problems as outlined in past medical history Full code Lovenox will suffice for DVT prophylaxis Will reconcile meds when they become available. 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 of Care Code 38875 Diagnoses Atrial fibrillation with RVR I48.91 Acute hypoxemic respiratory failure J96.01 Influenza A J10.1 Community acquired pneumonia J18.9 Acute encephalopathy G93.40 Prostate cancer C61 Time Spent (min) 34 Documented by User: Corwin Martini MD 06/19/23 11:42 Subjective 2 Subjective: Patient resting in bed on 2 L nasal cannula receiving a breathing treatment currently. He reports some difficulty breathing with exertion, and some dizziness getting up out of bed. Mr. Jones stated he had trouble sleeping overnight due to increased SOB and needing breathing treatment. Later in the morning I was called to the room the patient had some chest discomfort. EKG is nonspecific. Troponin and EKG series will be done. No chest discomfort currently. Does have some blood in his Andrade. Physical Exam 2 Narrative: General exam is a pleasant white male, conversant. HEENT: Atraumatic normocephalic. Neck supple, no lymphadenopathy. Cardiovascular regular rate and rhythm, occasional premature beat. Telemetry indicates sinus rhythm. Lungs expiratory wheezes to left upper lobe, right lobe diminished. Abdomen is soft, positive bowel sounds Extremities 1+ edema bilaterally Blood in Andrade Urinary Catheter Management: Andrade: Cath Placed During This Visit: yes Data 06/19/23 07:04 06/19/23 07:04 A&P Assessment and plan (1) Atrial fibrillation with RVR: Presented with A-fib with RVR Discontinued amiodarone drip 06/18/23 continue home medications Likely this is secondary to pneumonia and influenza. Digoxin level was done on admission and okay. As he improves from his pneumonia and influenza he should return to his baseline control of A-fib. Fully anticoagulated but will hold any further dosing until blood and urine improves. Likely from trauma from Andrade/balloon Echocardiogram completed on 06/18/23 indicated an EF of 60%. (2) Acute hypoxemic respiratory failure: (3) Influenza A: (4) Community acquired pneumonia: Continue vancomycin, Zosyn currently. Speech therapy evaluation completed - patient did not display overt symptoms of aspiration with soft textures or thin liquids. Continue regular liquids and soft and bite size consistency of level 6. As patient becomes stronger will upgrade to level 7. Sputum culture, pending. MRSA PCR ordered and pending Has past history of smoking. Appears to have acute acute COPD exacerbation as well. Already on steroids for wheezing. Continue prednisone 40 mg a day. Continue DuoNeb every 6 hours and budesonide twice daily (5) Acute encephalopathy: (6) Prostate cancer: Plan Acute diastolic heart failure. He has evidence of edema, wheezing. Potassium was 3.4 this a.m., replaced with 40meq of potassium p.o. potassium this a.m. Lasix 40 mg p.o daily ordered. Physical therapy ordered. CBC, CMP in the morning Hematuria. Hold anticoagulation. Reassess in the morning. Likely from trauma from balloon and anticoagulation. Chest discomfort. Serial troponins and EKGs. Possible nuclear stress test tomorrow. Other medical problems as outlined in past medical history Full code Lovenox currently being held. SCDs for DVT prophylaxis Will reconcile meds when they become available. Attestations 2 Medical Necessity Statement*: Needs continued hospitalization for IV antibiotics secondary to pneumonia, close monitoring of COPD exacerbation Diagnoses Atrial fibrillation with RVR I48.91 Acute hypoxemic respiratory failure J96.01 Influenza A J10.1 Community acquired pneumonia J18.9 Acute encephalopathy G93.40 Prostate cancer C61 Time Spent (min) 34
[2023-06-19] MEDS: enoxaparin 100 mg/mL Syringe 90 MG SUBCUT ×2 (08:47→19:52)
[2023-06-19] MEDS: loratadine 10 mg Tablet PO (08:47)
[2023-06-19] MEDS: metoprolol tartrate 50 mg Tablet 75 MG PO ×2 (08:48→17:44)
[2023-06-19] MEDS: aspirin 81 mg Chew Tablet PO (08:48)
[2023-06-19] MEDS: digoxin 250 mcg Tablet PO (08:48)
[2023-06-19] MEDS: predniSONE 20 mg Tablet 40 MG PO (08:48)
[2023-06-19] MEDS: oseltamivir phosphate 75 mg Capsule PO ×2 (08:48→17:45)
[2023-06-19] MEDS: tamsulosin 0.4 mg Capsule 0.8 MG PO (08:49)
[2023-06-19] MEDS: dorzolamide/timolol Op Soln 10 mL Btl 1 DROP EYE-BOTH ×2 (08:50→17:45)
[2023-06-19] MEDS: vancomycin 1,500 MG/300 ML PIGGYBACK 200 MG IV ×2 (09:06→19:48)
[2023-06-19] MEDS: morphine 4 mg/mL SDV 1 mL 2 MG IVP (09:26)
[2023-06-19] MEDS: potassium chloride ER 20 mEq Tablet 40 MEQ PO (09:26)
[2023-06-19 10:12] LABS: Glucose Point of Care 105 mg/dL (70-110)
[2023-06-19] MEDS: FUROsemide 40 mg Tablet PO (10:19)
--- NOTE | 2023-06-19 10:27 | ECG_ITS ---
[facility] Test Date: 2023-06-19 Pat Name: Gabino Jones Department: Room: 101 Gender: Male Equal Opportunity Representative: : 1955 Requested By: Corwin Priest Order Number: [id number] Mick MD: Luis Fernando Dill M.D. Measurements Intervals [place] Rate: 61 P: 94 LA: 165 QRS: 95 QRSD: 150 T: -68 QT: 494 QTc: 499 Interpretive Statements SINUS RHYTHM WITH OCCASIONAL SUPRAVENTRICULAR PREMATURE COMPLEXES BORDERLINE RIGHT AXIS DEVIATION [QRS AXIS > 90] Right bundle branch block Compared to ECG 06/17/2023 20:28:13 Intraventricular conduction delay now present Atrial fibrillation no longer present T-wave abnormality no longer present Possible ischemia no longer present Electronically Signed On 06-19-2023 14:20:47 WALL COVERING CONTRACTOR by Luis Fernando Dill M.D. [id number]
[2023-06-19 11:36] LABS: Troponin(5th) Baseline 41 ng/L (0-15)
[2023-06-19 13:37] LABS: Troponin 5 2HR 34.55 ng/L (0-15)
[2023-06-19 13:52] LABS: Troponin 5 2HR Delta -6.45 ABS# (0-10)
--- NOTE | 2023-06-19 14:22 | ECG_ITS ---
[facility] Test Date: 2023-06-20 Pat Name: Gabino Jones Department: Room: 101 Gender: Male Eyeglass Lens Generator: Michela Quiñonez : 1955 Requested By: Corwin Priest Order Number: [id number] Mick MD: Favio Ferguson M.D. Interpretive Statements NAME OF STUDY: LEXISCAN SESTAMIBI STRESS TEST INDICATION: [Chest Pain, ] Procedure: At the baseline, the blood pressure was 129/90 mmHg with a heart rate of 86 bpm. The electrocardiogram showed normal sinus rhythm, normal axis with normal ST and T's. Frequent PVCs are seen. Right bundle branch block is seen The Lexiscan was infused over a period of 20 seconds. A total of 0.4 mg of Lexiscan was infused. The stress phase was continued for a total of 5 minutes. Heart rate was at the end of stress phase was 97 bpm and a blood pressure of 144/99 mmHg. The EKG at the peak infusion revealed normal sinus rhythm with no significant ST-T wave changes. PVCs are seen. Sestamibi was injected 20 seconds after the Lexiscan infusion. Blood pressure at the end of recovery phase was 176/77 mmHg with a heart rate of 94 bpm. Conclusion: 1. Normal EKG response to Lexiscan infusion 2. No Lexiscan induced chest pain or cardiac arrhythmia. 3. Normal blood pressure and heart rate response. 4. Sestamibi/sestamibi perfusion scan pending; see separate report. Electronically Signed On 07-07-2023 11:34:39 COMMODITY LOAN CLERK by Favio Ferguson M.D. [id number]
[2023-06-19] MEDS: pantoprazole 40 mg SDV IVP (19:52)
[2023-06-19] MEDS: atorvastatin 40 mg Tablet 10 MG PO (19:53)
[2023-06-19 20:54] LABS: Troponin 5 6HR 20.33 ng/L (0-15)
[2023-06-19 20:57] LABS: Troponin 5 6HR Delta -20.67 ng/L (0-12)
[2023-06-20] VITALS (17 sets, daily range): BP systolic 121–176; BP diastolic 73–86; PULSE 65–96; RESP 14–20; TEMP 36.6–36.8; O2SAT 92–98
[2023-06-20] MEDS: ipratropium-albuterol 3 mL Neb INHALATION ×4 (00:20→20:32)
[2023-06-20 04:13] LABS: Hematocrit 34.8 % (37-53); Lymphocytes # 0.5 10^3/uL (0.8-4.8); Lymphocytes % 19.1 %; Mean Corpuscular HGB Conc 33.6 g/dL (30-55); Mean Corpuscular Hemoglobin 31.4 pg (27-33); Mean Corpuscular Volume 93.3 fl (82-101); Monocytes # 0.2 10^3/uL (0.2-0.9); Monocytes % 8.6 %; Neutrophils # 2.01 10^3/uL (1.8-7.7); Neutrophils % 72.3 %; Nucleated Red Blood Cells % 0 %; Platelet Count 118 10^3/cmm (157-399); Red Blood Count 3.73 10^6/uL (3.85-5.65); Red Cell Distribution Width 14.6 % (12.1-15.1); White Blood Count 2.78 10^3/uL (3.29-11.43)
[2023-06-20 04:30] LABS: Anion Gap 11.3 (5-19); Blood Urea Nitrogen 23 mg/dL (8-23); Calcium 8.9 mg/dL (8.5-10.5); Carbon Dioxide 29 mmol/L (22-29); Chloride 102 mmol/L (98-107); Glomerular Filtration Rate 96.1 mL/min (90-130); Glucose 104 mg/dL (65-115); Osmolality Calculated 292 mOsm/kg (285-295); Potassium 3.3 mmol/L (3.5-5.1); Sodium 139 mmol/L (136-145)
[2023-06-20] MEDS: piperacillin-tazobactam 3.375 GM in sodium chloride 0.9% (plus) 50 ML IV ×3 (05:23→21:02)
[2023-06-20] MEDS: levothyroxine 100 mcg SDV 62.5 MCG IVP (05:24)
[2023-06-20] MEDS: regadenoson 0.4 Mg/5 ml Syringe IVP (07:59)
[2023-06-20] MEDS: digoxin 250 mcg Tablet PO (09:26)
[2023-06-20] MEDS: aspirin 81 mg Chew Tablet PO (09:33)
[2023-06-20] MEDS: metoprolol tartrate 50 mg Tablet 75 MG PO ×2 (09:33→17:50)
[2023-06-20] MEDS: predniSONE 20 mg Tablet 40 MG PO (09:34)
[2023-06-20] MEDS: tamsulosin 0.4 mg Capsule 0.8 MG PO (09:35)
[2023-06-20] MEDS: oseltamivir phosphate 75 mg Capsule PO ×2 (09:35→17:51)
[2023-06-20] MEDS: potassium chloride ER 20 mEq Tablet 40 MEQ PO (09:35)
[2023-06-20] MEDS: loratadine 10 mg Tablet PO (09:36)
--- NOTE | 2023-06-20 09:39 | P.PN_ITS ---
Documented by User: IRINA Mendoza STDLUCI 06/20/23 10:10 Subjective 2 Subjective: Patient sitting up on side of bed enjoying breakfast, he stated he just got back from his scheduled stress test. Mr. Jones complains of burning sensation continuing after catheter placement. Bright red blood noted to be in singh catheter bag. Medications: Reviewed: Yes Vitals/I&O/Wt Last Vital Signs Temp 97.8 F 06/20/23 06:56 Pulse 93 06/20/23 09:26 Resp 15 06/20/23 06:56 BP 176/77 06/20/23 08:18 Pulse Ox 98 06/20/23 06:56 O2 Del Method Nasal Cannula 06/20/23 06:56 O2 Flow Rate 2 06/20/23 00:20 06/19/23 06/20/23 06/20/23 22:59 06:59 14:59 Intake Total 1070 / 1900 50 / 1950 Output Total 980 / 980 775 / 1755 Balance 90 / 920 -725 / 195 Weight last 48 hrs Weight 209 lb 6 oz Physical Exam 2 Narrative: General exam is a pleasant white male, conversant. HEENT: Atraumatic normocephalic. Neck supple, no lymphadenopathy. Cardiovascular regular rate and rhythm, occasional premature beat. Telemetry indicates sinus rhythm. Lungs expiratory wheezes bilaterally anterior and posterior wheezes noted on auscultation. Abdomen is soft, positive bowel sounds, non-tender, Extremities 1+ edema bilaterally lower legs. Blood in Singh Urinary Catheter Management: Singh: Cath Placed During This Visit: yes Reason for Continuing Indwelling Catheter: Accurate Measurement of Urinary Output in Critically Ill Patients Urinary Catheter Date of Insertion: 06/17/23 Urinary Catheter Time of Insertion: 20:55 Data 06/20/23 04:06 06/20/23 04:06 Micro: Microbiology 06/19/23 09:03 Gram Stain - Final Sputum - Expectorated Sputum A&P Assessment and plan (1) Atrial fibrillation with RVR: Presented with A-fib with RVR Likely this is secondary to pneumonia and influenza. Discontinued amiodarone drip 06/18/23 continue home medications Digoxin level completed on admission and okay. Fully anticoagulated but will hold any further dosing until blood and urine improves. Likely from trauma from Singh/balloon Echocardiogram completed on 06/18/23 indicated an EF of 60%. Stress test completed, awaiting results 06/20/23. (2) Acute hypoxemic respiratory failure: Patient with acute hypoxic respiratory failure secondary to influenza/pneumonia (3) Influenza A: Continue Tamiflu Supportive care with oxygen, on 2L NC. (4) Community acquired pneumonia: Continue vancomycin, Zosyn currently. Speech therapy evaluation completed - patient did not display overt symptoms of aspiration with soft textures or thin liquids. Continue regular liquids and soft and bite size consistency of level 6. As patient becomes stronger will upgrade to level 7. Sputum culture, pending. MRSA PCR obtained and pending Has past history of smoking. Appears to have acute acute COPD exacerbation as well. Already on steroids for wheezing. Continue prednisone 40 mg a day. Continue DuoNeb every 6 hours and budesonide twice daily (5) Acute encephalopathy: Continue to follow for improvement. CT head on admission negative (6) Prostate cancer: Continue hormonal suppression Plan Acute diastolic heart failure. He has evidence of edema, wheezing. Potassium was 3.3 this a.m., replaced with 40meq of potassium p.o. potassium this a.m. Lasix 40 mg p.o daily ordered. Physical therapy ordered. CBC, CMP in the morning Hematuria. Hold anticoagulation,likely from trauma from balloon and anticoagulation. Other medical problems as outlined in past medical history Full code Lovenox currently being held. SCDs for DVT prophylaxis Will reconcile meds when they become available. 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 of Care Code 98802 Diagnoses Atrial fibrillation with RVR I48.91 Acute hypoxemic respiratory failure J96.01 Influenza A J10.1 Community acquired pneumonia J18.9 Acute encephalopathy G93.40 Prostate cancer C61 Time Spent (min) 27 Documented by User: Corwin Martini MD 06/20/23 13:53 Subjective 2 Subjective: Patient sitting up on side of bed enjoying breakfast, he stated he just got back from his scheduled stress test. Mr. Jones complains of burning sensation continuing after catheter placement. Blood noted to be in singh catheter bag. Physical Exam 2 Urinary Catheter Management: Singh: Cath Placed During This Visit: yes Data 06/20/23 04:06 06/20/23 04:06 A&P Assessment and plan (1) Atrial fibrillation with RVR: (2) Acute hypoxemic respiratory failure: Patient with acute hypoxic respiratory failure secondary to influenza/pneumonia All consistent with acute COPD exacerbation for which she is receiving prednisone and pulmonary toilet. Still wheezing quite a bit today. Hopefully can discharge by tomorrow. (3) Influenza A: (4) Community acquired pneumonia: On vancomycin, Zosyn currently. Discontinue vancomycin as PCR negative Speech therapy evaluation completed - patient did not display overt symptoms of aspiration with soft textures or thin liquids. Continue regular liquids and soft and bite size consistency of level 6. As patient becomes stronger will upgrade to level 7. Sputum culture, pending. Has past history of smoking. Appears to have acute acute COPD exacerbation as well. Already on steroids for wheezing. Continue prednisone 40 mg a day. Continue DuoNeb every 6 hours and budesonide twice daily (5) Acute encephalopathy: (6) Prostate cancer: Plan Acute diastolic heart failure. He has evidence of edema, wheezing. Potassium was 3.3 this a.m., replaced with 40meq of potassium p.o. potassium this a.m. Lasix 40 mg p.o daily ordered. Physical therapy ordered. Secondary to chest discomfort a nuclear stress test was ordered and completed today. This showed no significant reversible ischemia, fixed defect was noted consistent with prior injury. Hematuria. Hold anticoagulation,likely from trauma from balloon and anticoagulation. Nurses flush catheter and cleared. With since discontinued the catheter and are trying to make sure that he can urinate okay. He is already on Flomax. Other medical problems as outlined in past medical history Full code Lovenox currently being held. SCDs for DVT prophylaxis Will reconcile meds when they become available. Attestations 2 Medical Necessity Statement*: Needs continued hospitalization for continued consistent breathing treatments, close follow-up of improvement of respiratory condition prior to discharge as well as ensuring that he can urinate and hematuria goes away. Diagnoses Atrial fibrillation with RVR I48.91 Acute hypoxemic respiratory failure J96.01 Influenza A J10.1 Community acquired pneumonia J18.9 Acute encephalopathy G93.40 Prostate cancer C61 Time Spent (min) 27
[2023-06-20] MEDS: vancomycin 1,500 MG/300 ML PIGGYBACK 300 MG IV (09:44)
[2023-06-20 12:55] LABS: Methicillin-Resist S.aureu PCR NOT DETECTED (NOT DETECTED)
--- NOTE | 2023-06-20 14:22 | NMCV_ITS ---
NM annie perf SPECT r/s* [id number] Gabino Jones Age: 67 Gender: M : 1955 Exam Date: 06/20/2023 14:22 Ordering Phys: Corwin Martini MD Technologist: ROMA Max Exam Location: [facility] Indications: CHEST PAIN STRESS TEST Please see separate stress test report in [facility] for full findings IMAGE PROTOCOL Rest/Stress 1 Lexiscan Day Radiopharmaceutical Dose (mCi) Administration Site Administered by Rest: Tc-99m 10.8 IV ROMA Chopra Sestamibi Stress:Tc-99m 32.8 IV ROMA Chopra Sestamibi Rest: 20-Jun-2023 60 Discovery 630 Stress: 20-Jun-2023 30 Discovery 630 0.4mg Lexiscan. Supine position only as patient was unable to lay prone. SPECT RESULTS Technical Quality: Excellent Raw Data Analysis: Normal Image Corrections: No attenuation or motion correction applied Summed Stress Score: 11 Summed Rest Score: 9 Summed Difference Score: 2 PERFUSION FINDINGS There is a large sized, fixed perfusion defect noted in the inferolateral wall. This is consistent with large area of prior infarct with no significant ischemia in left circumflex artery territory. Large sized area of mostly fixed perfusion defect noted in the inferior wall. Small area of guy-infarct ischemia seen. This is consistent with large sized prior infarct with minimal guy-infarct ischemia in RCA territory. FUNCTIONAL RESULTS (calculated via Gated SPECT) Stress Image LV EF (%): 58 Stress EDV (mL):119 TID: 0.91 Stress ESV (mL):50 FUNCTIONAL FINDINGS: There is normal left ventricular systolic function. IMPRESSIONS 1. Abnormal myocardial perfusion imaging with large area of prior infarct seen in left circumflex artery territory. No significant ischemia 2. Large sized area of prior infarct with minimal guy-infarct ischemia seen in RCA territory. 3. LV systolic function is normal. Favio Ferguson MD (Electronically Signed) Final Date: 20 June 2023 10:13 S
[2023-06-20] MEDS: dorzolamide/timolol Op Soln 10 mL Btl 1 DROP EYE-BOTH (14:49)
[2023-06-20] MEDS: budesonide 0.5 mg/2 mL Neb INHALATION (20:32)
[2023-06-20] MEDS: atorvastatin 40 mg Tablet 10 MG PO (21:02)
[2023-06-21] VITALS (13 sets, daily range): BP systolic 161–169; BP diastolic 84–94; PULSE 67–110; RESP 16–24; TEMP 36.5–36.6; O2SAT 88–98
[2023-06-21] MEDS: ipratropium-albuterol 3 mL Neb INHALATION ×3 (03:46→13:33)
[2023-06-21 04:12] LABS: Hematocrit 36.5 % (37-53); Lymphocytes # 0.6 10^3/uL (0.8-4.8); Lymphocytes % 20.7 %; Mean Corpuscular HGB Conc 32.3 g/dL (30-55); Mean Corpuscular Hemoglobin 31.1 pg (27-33); Mean Corpuscular Volume 96.1 fl (82-101); Monocytes # 0.3 10^3/uL (0.2-0.9); Monocytes % 9.3 %; Neutrophils # 2.02 10^3/uL (1.8-7.7); Neutrophils % 69.7 %; Nucleated Red Blood Cells % 0 %; Platelet Count 140 10^3/cmm (157-399); Red Cell Distribution Width 14.3 % (12.1-15.1)
[2023-06-21 04:30] LABS: Anion Gap 12.7 (5-19); Blood Urea Nitrogen 19 mg/dL (8-23); Carbon Dioxide 28 mmol/L (22-29); Chloride 102 mmol/L (98-107); Glomerular Filtration Rate 96.1 mL/min (90-130); Glucose 101 mg/dL (65-115); Osmolality Calculated 290 mOsm/kg (285-295); Potassium 3.7 mmol/L (3.5-5.1); Sodium 139 mmol/L (136-145)
[2023-06-21] MEDS: levothyroxine 100 mcg SDV 62.5 MCG IVP (05:39)
[2023-06-21] MEDS: piperacillin-tazobactam 3.375 GM in sodium chloride 0.9% (plus) 50 ML IV (05:39)
[2023-06-21] MEDS: budesonide 0.5 mg/2 mL Neb INHALATION (07:47)
[2023-06-21] MEDS: metoprolol tartrate 50 mg Tablet 75 MG PO (08:42)
[2023-06-21] MEDS: tamsulosin 0.4 mg Capsule 0.8 MG PO (08:42)
[2023-06-21] MEDS: loratadine 10 mg Tablet PO (08:43)
[2023-06-21] MEDS: oseltamivir phosphate 75 mg Capsule PO (08:43)
[2023-06-21] MEDS: digoxin 250 mcg Tablet PO (08:43)
[2023-06-21] MEDS: aspirin 81 mg Chew Tablet PO (08:43)
[2023-06-21] MEDS: predniSONE 20 mg Tablet 40 MG PO (08:45)
[2023-06-21] MEDS: dorzolamide/timolol Op Soln 10 mL Btl 1 DROP EYE-BOTH (08:47)
--- NOTE | 2023-06-21 11:20 | P.DS_ITS ---
Discharge Providers Date of Admission: 06/17/23 20:37 Date of Discharge: June 21, 2023 Attending Provider at Admission: Segundo Trinh MD Attending Provider at Discharge: Corwin Martini MD Primary Care Provider: PATO Hernandez Diagnoses at Discharge Discharge Diagnosis (1) Atrial fibrillation with RVR: Status: Acute (2) Acute hypoxemic respiratory failure: Status: Acute (3) Influenza A: Status: Acute (4) Community acquired pneumonia: Status: Acute (5) Acute encephalopathy: Status: Acute (6) Prostate cancer: Status: Acute Reason for Visit Reason for Visit: AMS Hospital Course Hospital Course Gabino is a 67-year-old white male, presenting to the hospital with shortness of breath and confusion on June 17. He was found to have influenza A, and concern of secondary bacterial pneumonia. There was also concern of acute COPD exacerbation. A-fib with RVR was noted and he was placed on an amiodarone drip initially. He was given Tamiflu, steroids, IV antibiotics. He was eventually converted back to his digoxin and metoprolol. Echocardiogram was obtained which demonstrated preserved EF. He had gradual improvement and by June 21 it was thought he could be discharged home on oral antibiotics. At that time he was in sinus rhythm. He had completed his course of Tamiflu. He had weaned down to 2 L of oxygen which was his baseline. He will finish up a short course of Augmentin. He will follow-up with his primary care provider. He was given the opportunity ask questions and agreed with the plan. Physical Exam Narrative: General exam no distress Neck is supple Cardiovascular regular in rhythm Lungs clear but with diminished breath sounds bilaterally Abdomen is soft Extremities no cyanosis clubbing or edema Urinary Catheter Management: Andrade: Cath Placed During This Visit: yes, but has since been removed by the nurse Reason for Continuing Indwelling Catheter: Decision to DC Catheter Urinary Catheter Date of Insertion: 06/17/23 Urinary Catheter Time of Insertion: 20:55 Date Urinary Catheter Removed: 06/20/23 Time Urinary Catheter Discontinued: 12:42 Discharge Data Studies Completed and Pending Completed Studies During Hospitalization Category Date Time Status CT angio chest PE protcl [id number] Stat Cat Scan 06/17/23 20:[address] head wo con* [id number] Stat Cat Scan 06/17/23 18:35 Completed XR chest 1V portable [id number] Stat Exams 06/17/23 18:35 Completed NM annie perf SPECT r/s* [id number] Routine Nuc Med 06/20/23 14:22 Completed CV. echo complete* [id number] Routine Ultrasound 06/18/23 09:55 Completed Pending at discharge Category Date Time Status Sestamibi Stress Test Request Routine Exams 06/19/23 14:22 Ordered Blood Cultures ([facility]) Routine Lab 06/17/23 19:52 Received Blood Cultures ([facility]) Routine Lab 06/17/23 20:06 Received Sputum Culture and Gram Stain Routine Lab 06/19/23 09:03 Results Radiology Impressions Chest X-Ray 06/17/23 18:35 IMPRESSION: 1. Bilateral mid to lower lung field left greater than right atelectasis versus minimal infiltrate. 2. Emphysematous changes. 3. Sternotomy wires. 4. Right-sided Port-A-Cath. Head CT 06/17/23 18:35 IMPRESSION: Negative for intracranial hemorrhage or mass effect Chest CTA 06/17/23 20:44 IMPRESSION: 1. Negative for pulmonary embolus 2. Hepatic steatosis. 3. Moderate hiatal hernia. 4. Fluid in the esophagus may be secondary to reflux, please correlate for esophagitis. 5. Emphysematous changes. 6. Bilateral dependent atelectasis versus minimal infiltrate. 7. Cholecystectomy. 8. CABG changes. COMMENTS: The presence of pulmonary emphysema on CT is an independent risk factor for lung cancer. In the absence of a history or active diagnosis of lung cancer, it is recommended that this patient with emphysema be evaluated for enrollment in a low dose CT lung cancer screening program. Laboratory Results WBC 2.90 10^3/uL (3.29-11.43) L 06/21/23 03:27 Corrected WBC Cancelled 06/17/23 18:54 RBC 3.80 10^6/uL (3.85-5.65) L 06/21/23 03:27 Hgb 11.80 g/dL (11.27-16.99) 06/21/23 03:27 Hct 36.5 % (37-53) L 06/21/23 03:27 MCV 96.1 fl (82-101) 06/21/23 03:27 MCH 31.1 pg (27-33) 06/21/23 03:27 MCHC 32.3 g/dL (30-55) 06/21/23 03:27 RDW 14.3 % (12.1-15.1) 06/21/23 03:27 Plt Count 140 10^3/cmm (157-399) L 06/21/23 03:27 MPV 10.0 fL (7.4-10.4) 06/21/23 03:27 Gran % Cancelled 06/17/23 18:54 Neut % (Auto) 69.7 % 06/21/23 03:27 Lymph % (Auto) 20.7 % 06/21/23 03:27 Loup % (Auto) 9.3 % 06/21/23 03:27 Eos % (Auto) 0.0 % 06/21/23 03:27 Baso % (Auto) 0.0 % 06/21/23 03:27 Neut # (Auto) 2.02 10^3/uL (1.8-7.7) 06/21/23 03:27 Lymph # (Auto) 0.6 10^3/uL (0.8-4.8) L 06/21/23 03:27 Loup # (Auto) 0.3 10^3/uL (0.2-0.9) 06/21/23 03:27 Eos # (Auto) 0.0 10^3/uL (0.0-0.8) 06/21/23 03:27 Baso # (Auto) 0.0 10^3/uL (0.0-0.1) 06/21/23 03:27 Absolute Gran (auto) Cancelled 06/17/23 18:54 Nucleated RBC % (auto) 0 % 06/21/23 03:27 Nucleated RBCs # 0.0 /100WBC 06/21/23 03:27 PT 14.10 SECONDS (12.1-14.9) 06/17/23 18:54 PT 14.40 SECONDS (12.1-14.9) 06/17/23 18:54 INR 1.05 (0.8-1.2) 06/17/23 18:54 INR 1.09 (0.8-1.2) 06/17/23 18:54 Specimen Type Arterial 06/17/23 18:42 Sample Site Radial, left 06/17/23 18:42 ABG pH 7.44 (7.35-7.45) 06/17/23 18:42 ABG pCO2 39.8 mmHg (35-45) 06/17/23 18:42 ABG pO2 92.5 mmHg (80.0-100.0) 06/17/23 18:42 ABG PO2/FiO2 Ratio 0 06/17/23 18:42 ABG HCO3 26.7 mmol/L (22-26) H 06/17/23 18:42 ABG Base Excess 2.3 mmol/L (-2.0-2.0) H 06/17/23 18:42 Derek Test Pos 06/17/23 18:42 Hematocrit 38.6 % (42-52) L 06/17/23 18:42 O2 Delivery Device Nc 06/17/23 18:42 O2 Liters/Min 2.0 % 06/17/23 18:42 FiO2 28.0 % 06/17/23 18:42 Reading Recovery Teacher ID Cak 06/17/23 18:42 Sodium 139 mmol/L (136-145) 06/21/23 03:27 Potassium 3.7 mmol/L (3.5-5.1) 06/21/23 03:27 Chloride 102 mmol/L (98-107) 06/21/23 03:27 Carbon Dioxide 28 mmol/L (22-29) 06/21/23 03:27 Anion Gap 12.7 (5-19) 06/21/23 03:27 BUN 19 mg/dL (8-23) 06/21/23 03:27 Creatinine 0.8 mg/dL (0.7-1.2) 06/21/23 03:27 GFR Calculation 96.1 mL/min (90-130) 06/21/23 03:27 Glucose 101 mg/dL (65-115) 06/21/23 03:27 POC Glucose 105 mg/dL (70-110) 06/19/23 09:54 Estimat Average Glucose 137 06/17/23 19:43 Hemoglobin A1c 6.4 % (4.0-6.0) H 06/17/23 19:43 Calculated Osmolality 290 mOsm/kg (285-295) 06/21/23 03:27 Lactic Acid 0.7 mmol/L (0.5-2.2) 06/18/23 00:48 Calcium 9.0 mg/dL (8.5-10.5) 06/21/23 03:27 Phosphorus 4.2 mg/dL (2.5-4.5) 06/18/23 00:48 Magnesium 2.0 mg/dL (1.7-2.3) 06/18/23 00:48 Total Bilirubin 0.4 mg/dL (0.15-1.2) 06/19/23 07:04 AST 37 U/L (0-40) 06/19/23 07:04 ALT 37 U/L (0-41) 06/19/23 07:04 Alkaline Phosphatase 66 U/L (40-130) 06/19/23 07:04 Ammonia 23 umol/L (16-60) 06/17/23 18:54 Troponin T Baseline 41 ng/L (0-15) H 06/19/23 11:13 Troponin T 120 Minute 34.55 ng/L (0-15) H 06/19/23 13:09 Delta Troponin T -6.45 ABS# (0-10) L 06/19/23 13:09 Troponin T Hi Sens 6Hr 20.33 ng/L (0-15) H 06/19/23 20:10 Troponin T Hi Sens 6Hr Delta -20.67 ng/L (0-12) L 06/19/23 20:10 C-Reactive Protein 57.9 mg/L (0.0-4.9) H 06/17/23 18:54 NT-Pro-B Natriuret Pep 8395 pg/mL (0-125) H 06/18/23 00:48 NT-Pro-B Natriuret Pep Cancelled 06/18/23 00:48 Total Protein 5.9 g/dL (6.6-8.7) L 06/19/23 07:04 Albumin 3.5 g/dL (3.5-5.2) 06/19/23 07:04 Globulin 2.4 g/dL (1.3-4.6) 06/19/23 07:04 Procalcitonin 0.36 ng/mL (0-0.5) 06/17/23 18:54 TSH 1.89 uIU/mL (0.27-4.20) 06/17/23 18:54 TSH 1.97 uIU/mL (0.27-4.20) 06/17/23 18:54 Random Cortisol 12.09 ug/dL (2.47-19.5) 06/17/23 18:54 Urine Color Yellow (Yellow) 06/17/23 16:26 Urine Appearance Sl hazy (CLEAR) A 06/17/23 16:26 Urine pH 5 (5-7) 06/17/23 16:26 Ur Specific Shirley 1.025 (1.005-1.030) 06/17/23 16:26 Urine Protein 1+ (Negative) H 06/17/23 16:26 Urine Glucose (UA) Norm (Normal) 06/17/23 16:26 Urine Ketones 1+ (Negative) H 06/17/23 16: Urine Blood 3+ (Negative) H 06/17/23 16:26 Urine Nitrate Negative (Negative) 06/17/23 16: Urine Bilirubin Neg (Negative) 06/17/23 16: Urine Urobilinogen Norm mg/dL (Negative) 06/17/23 16:26 Ur Leukocyte Esterase Negative (Negative) 06/17/23 16:26 Urine RBC 5-10 /hpf (0-2) H 06/17/23 16:26 Urine WBC 0-4 /hpf (0-5) H 06/17/23 16:26 Ur Squamous Epith Cells 0-4 /hpf (0-5) H 06/17/23 16:26 Amorphous Sediment 1+ /hpf 06/17/23 16:26 Urine Bacteria Trace /hpf (NONE) 06/17/23 16:26 Vancomycin Trough 15.8 ug/mL (10-15) H 06/19/23 07:04 Digoxin 0.9 ng/mL (0.6-1.2) 06/17/23 18:54 Ethyl Alcohol < 10 mg/dL (0-10) 06/17/23 18:54 Influenza Type A Ag positive (Negative) H 06/17/23 19:43 Influenza Type B Ag negative (Negative) 06/17/23 19:43 SARS-CoV-2 Ag (Rapid) negative (Negative) 06/17/23 19:43 MRSA (PCR) Not detected (NOT DETECTED) 06/19/23 08:44 Vitals Last Vital Signs Temp 97.9 F 06/21/23 08:00 Pulse 110 H 06/21/23 08:43 Resp 19 H 06/21/23 08:00 BP 161/84 06/21/23 08:00 Pulse Ox 95 06/21/23 08:00 O2 Del Method Nasal Cannula 06/21/23 07:45 O2 Flow Rate 2 06/21/23 07:45 Discharge Plan Discharge Patient Disposition: Home Condition: Stable Prescriptions: New prednisone 20 mg Tablet 40 mg PO DAILY Qty: 6 0RF budesonide 0.5 mg/2 mL Suspension For Nebulization 0.5 mg inhalation BID.RESPIRATORY Qty: 120 0RF amoxicillin-pot clavulanate 875-125 mg tablet 1 tab PO BID Qty: 10 0RF ipratropium-albuterol 0.5 mg-3 mg(2.5 mg base)/3 mL solution for nebulization 3 ml inhalation QID Qty: 360 0RF Continued prochlorperazine maleate [Compazine] 10 mg tablet 10 mg PO Q4H PRN (Reason: Mild Nausea) Qty: 30 1RF aspirin 325 mg tablet 325 mg PO DAILY Hold Instructions: Resume on 04/24/22. Spiriva Respimat 1.25 mcg/actuation mist 1 puff inhalation BID Patient Comments: Strength unknown ferrous sulfate 325 mg (65 mg iron) tablet 325 mg PO DAILY Qty: 90 1RF Rx Instructions: take on empty stomach one hour before a meal with a glass of orange juice abiraterone 250 mg tablet 250 mg PO QAM Qty: 30 2RF Rx Instructions: Must be taken with or within 30 minutes of a low fat breakfast prednisone 5 mg tablet 5 mg PO DAILY Qty: 30 6RF Eliquis 5 mg Tablet 5 mg PO BID Qty: 60 0RF Hold Instructions: Resume on 04/21/22. omeprazole 20 mg capsule,delayed release(DR/EC) 40 mg PO DAILY digoxin 250 mcg (0.25 mg) Tablet 250 mcg PO DAILY Qty: 30 0RF metoprolol tartrate 50 mg Tablet 75 mg PO BID Qty: 90 0RF nitroglycerin [Nitrostat] 0.4 mg Tablet, Sublingual 0.4 mg SUBLINGUAL Q5M PRN (Reason: Chest Pain) Rx Instructions: FOR 3 DOSES potassium chloride 20 mEq Tablet Extended Release 10 meq PO DAILY furosemide [Lasix] 40 mg tablet 40 mg PO QAM olodaterol 2.5 mcg/actuation Mist 2 inh INHALATION DAILY Flomax 0.4 mg capsule 0.8 mg PO DAILY albuterol sulfate 90 mcg/actuation HFA aerosol inhaler 2 inh INHALATION Q4H PRN (Reason: shortness of breath or wheezing) Qty: 18 0RF dorzolamide-timolol 22.3-6.8 mg/mL drops 1 drp ophthalmic (eye) BID prednisolone acetate 1 % drops,suspension 1 drp ophthalmic (eye) QID loratadine 10 mg tablet 10 mg PO DAILY Discharge Orders: Discharge Order (Routine); Ordered 06/21/23 Ordered By: Corwin Martini Referrals: Isela Sotelo FNP [Primary Care Provider] - 4-7 days (you have an appointment with [facility]/23 at 1:30.if you have any questions call them at [phone].You also have an appointment with dr wilkinson (lung specialist) in the [facility] at the [facility], on 09/05/23 at 8:45.if you have any questions call [phone].) Discharge Diet: Cardiac Discharge Activity: Increase activity as tolerated Patient Instructions: Ipratropium (By breathing), Prednisone (By mouth), Amoxicillin/Clavulanate Potassium (By mouth) (Augmentin, Augmentin..., Budesonide (By breathing), Heart Failure (DC), A-fib (Atrial Fibrillation) (DC), Viral Pneumonia (DC), Influenza (DC), Altered Mental Status (ED), CHF Stoplight, Opioid Safety, Pneumonia Stoplight Activity Restrictions/Additional Instructions: Please arrange referral to Dr. Vega, to see in several weeks Take all medicine prescribed After finishing 40 mg of prednisone drop dose to usual 5 mg daily Make sure he has nebulizer at home prior to discharge Resume your 2 L of oxygen at discharge Discharge Attestations Time Spent in Discharge Care*: greater than 30 min Status at Discharge: Cognitive status at discharge: cognitively intact , Behavioral status at discharge: cooperative , Quality Metrics Clinical Quality Measures [ No reported AMI, CVA or VTE this stay] 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 of Care Code 88092 Diagnoses Atrial fibrillation with RVR I48.91 Acute hypoxemic respiratory failure J96.01 Influenza A J10.1 Community acquired pneumonia J18.9 Acute encephalopathy G93.40 Prostate cancer C61 Time Spent (min) 34
--- NOTE | 2023-06-21 11:47 | PC.NURSE ---
pt states he has a nebulizer at home.
--- NOTE | 2023-06-21 16:45 | PC.NURSE ---
medications ordered and delivered through meds to beds program.discharge instructions given and explained.pt verb understanding of instructions.discharged via w/c to exit.uber to drive pt home.
== END 2023-06-21 16:46 | disposition home or self-care (01) | DRG 865 ==
LOC: ER 20:14 → CSU 20:37
PROVIDERS: Admitting Provider Family Medicine; Emergency Provider Emergency Medicine; PCP Nurse Practitioner; Visit Provider Internal Medicine
DX: J10.81 Influenza due to other identified influenza virus with encephalopathy (principal); I50.33 Acute on chronic diastolic (congestive) heart failure; J10.08 Influenza due to other identified influenza virus with other specified pneumonia; J15.9 Unspecified bacterial pneumonia; J96.21 Acute and chronic respiratory failure with hypoxia; I48.20 Chronic atrial fibrillation, unspecified; J44.0 Chronic obstructive pulmonary disease with (acute) lower respiratory infection; J44.1 Chronic obstructive pulmonary disease with (acute) exacerbation; D84.821 Immunodeficiency due to drugs; D68.32 Hemorrhagic disorder due to extrinsic circulating anticoagulants; T83.83XA Hemorrhage due to genitourinary prosthetic devices, implants and grafts, initial encounter; Z87.891 Personal history of nicotine dependence; C61 Malignant neoplasm of prostate; Z79.01 Long term (current) use of anticoagulants; I11.0 Hypertensive heart disease with heart failure; I25.10 Atherosclerotic heart disease of native coronary artery without angina pectoris; K21.9 Gastro-esophageal reflux disease without esophagitis; E03.9 Hypothyroidism, unspecified; E78.5 Hyperlipidemia, unspecified; Z79.52 Long term (current) use of systemic steroids; Z79.60 Long term (current) use of unspecified immunomodulators and immunosuppressants; Z79.82 Long term (current) use of aspirin; Z95.1 Presence of aortocoronary bypass graft; R31.0 Gross hematuria; Y73.1 Therapeutic (nonsurgical) and rehabilitative gastroenterology and urology devices associated with adverse incidents
CPT/HCPCS: 36415; 36416; 36600; 51702; 70450; 71045; 71275; 78452; 80048; 80053; 80162; 80202; 80307; 81001; 82140; 82533; 82803; 82962; 83036; 83605; 83735; 83880; 84100; 84145; 84443; 84484; 85025; 85610; 86140; 87040; 87070; 87205; 87426; 87641; 87804; 92523; 92610; 93005; 93306; 94640; 94760; 96365; 96367; 96372; 96375; 96376; 97116; 97161; 99285; A4222; A9270; A9500; C9113; J0283; J1650; J1940; J2270; J2543; J2785; J2920; J3370; J3490; J7030; J7050; J7512; J7626; Q9967

== ENCOUNTER 2023-07-03 12:08 | Oncology outpatient (recurring) (ONCR) | payer OTHER, SELFPAY | END 2023-07-03 23:59 | disposition home or self-care (01) | LOC: ONCMED 12:09 | PROVIDERS: PCP Nurse Practitioner; Visit Provider Internal Medicine Medical Oncology | DX: Z45.2 Encounter for adjustment and management of vascular access device (principal) | CPT/HCPCS: 96523 ==

== ENCOUNTER 2023-07-05 10:16 | Oncology outpatient (recurring) (ONCR) | payer OTHER, SELFPAY ==
[2023-07-05 11:22] LABS: HIV 1 & 2 Antibody Non-Reactive (Non-Reactiv); HIV 1 & 2 Antigen Non-Reactive (Non-Reactiv)
[2023-07-05 11:50] LABS: Hepatitis A Antibody IgM Non-Reactive (Nonreactive); Hepatitis B Core IgM Non-Reactive (Nonreactive); Hepatitis B Surface Antigen Non-Reactive (Nonreactive); Hepatitis C Virus Antibody Non-Reactive (Nonreactive)
== END 2023-08-01 23:59 | disposition home or self-care (01) ==
LOC: ONCMED 10:17
PROVIDERS: PCP Nurse Practitioner; Visit Provider Internal Medicine Medical Oncology
DX: Z45.2 Encounter for adjustment and management of vascular access device (principal); Z95.828 Presence of other vascular implants and grafts; E61.1 Iron deficiency
CPT/HCPCS: 36591; 80074; 87806

== ENCOUNTER 2023-08-04 08:22 | Emergency (ER) | payer OTHER, SELFPAY ==
--- NOTE | 2023-08-04 08:34 | ECG_ITS ---
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 Measurements Intervals [employer] Rate: 87 P: 68 [place]: 154 QRS: -43 QRSD: 136 T: 75 QT: 365 QTc: 441 Interpretive Statements SINUS RHYTHM WITH OCCASIONAL SUPRAVENTRICULAR PREMATURE COMPLEXES RIGHT BUNDLE BRANCH BLOCK [120+ ms QRS DURATION, UPRIGHT V1, 40+ ms S IN I/aVL/V4/V5/V6] INFERIOR MYOCARDIAL INFARCTION , OF INDETERMINATE AGE [40+ ms Q WAVE AND/OR ST/T ABNORMALITY IN II/aVF] ST DEPRESSION, CONSIDER SUBENDOCARDIAL INJURY [0.1+ mV ST DEPRESSION] Compared to ECG 06/19/2023 10:27:53 Myocardial infarct finding now present ST (T wave) deviation now present Electronically Signed On 08-05-2023 8:49:29 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 [id number]
--- NOTE | 2023-08-04 08:34 | XRR_ITS ---
PROCEDURE INFORMATION: Exam: XR Chest Exam date and time: 08/04/2023 9:26 AM Age: 67 years old Clinical indication: Cough and shortness of breath; Prior surgery; Surgery date: 6+ months; Surgery type: Shawna, appy, heart, and port; Additional info: Dyspnea TECHNIQUE: Imaging protocol: Radiologic exam of the chest. Views: 1 view. COMPARISON: CT angio chest PE protcl [id number] 06/17/2023 9:12 PM FINDINGS: Tubes, catheters and devices: Right-sided chest port catheter terminates over the SVC. Lungs: Emphysematous changes of the superior lungs. Prominent bibasilar lung markings, unchanged. No focal consolidation to suggest overlying pneumonia. Pleural spaces: No large pleural effusion. No distinct pneumothorax. Heart/Mediastinum: Cardiomediastinal silhouette is midline and stable in size. Bones/joints: Postsurgical changes prior median sternotomy. XR/XR chest 1V portable [id number] IMPRESSION: No acute cardiopulmonary findings.
[2023-08-04 08:47] VITALS: BP 168/104; PULSE 77; RESP 19; TEMP 36.9; O2SAT 94; BMI 29.4
--- NOTE | 2023-08-04 09:02 | ED_ITS ---
HPI - SOB/Dyspnea 2 General: Chief Complaint: Shortness of Breath/Dyspnea Stated Complaint: sob, n/v, cough Time Seen by Provider: 08/04/23 08:25 History of Present Illness: HPI Narrative: Patient presents to the ER with complaints of shortness of breath cough and nausea vomiting all since around midnight. Patient is on 2 L of oxygen at home at all times. Patient arrived to the ER on 2 L of oxygen satting 94%. He states he is coughing more than normal and coughed so much last night that he vomited several times. Patient denies any chest pain at this time no known fever or chills or sick contacts. Review of Systems 2 General: Reports: 10 or more systems reviewed and unremarkable except in HPI and below PFSH ED 2 PFSH: Medical History Prostate cancer Elevated PSA History of colon polyps Chronic anticoagulation eliquis, for afib Chronic respiratory failure with hypoxia Colon polyps Heart failure with preserved ejection fraction Coronary artery disease CHF (congestive heart failure) Last echocardiogram normal EF, grade 2/4 diastolic dysfunction October 2019 Hypertension Anemia Atrial fibrillation Coronary artery disease GERD (gastroesophageal reflux disease) Hypothyroidism Hyperlipidemia COPD (chronic obstructive pulmonary disease) Surgical History S/P appendectomy S/P cholecystectomy History of colonoscopy (~04/2020) History of vasectomy History of knee surgery History of coronary artery bypass graft (03/2019) [address] [place] [address] Family History Father , IN HIS 50'S Lung disease tuberculosis Mother , AT AGE 63 CAD (coronary artery disease) Diabetes Hypertension Sister Cancer Denies family history of Clotting disorder Dementia Hyperlipidemia Psychiatric illness Chronic kidney disease (CKD) Suicide Anesthesia complication Bleeding disorder Stroke Social History Smoking and tobacco/nicotine status: former use of tobacco/nicotine Quit status (tobacco/nicotine): has quit using Year quit tobacco: 2017 - PPD x 52 Years Alcohol intake: never Substance/Drug Use: never Lives independently: Yes Household members: none Marital status: Legally Current occupational status: employed and retired Do you think of yourself as: Straight/Heterosexual Current gender identity: Male Physical Exam 2 Const: COMMON NORMALS: no acute distress, average body habitus, patient oriented x3, no limitations, healthy appearing, alert and well nourished HENMT: COMMON NORMALS: normocephalic, atraumatic, hearing grossly normal bilaterally, external ears normal, EAC's normal, Normal external nose present, moist oral mucous membranes and oropharynx normal HEAD & SCALP: normocephalic and atraumatic NOSE: Normal external nose present EXTERNAL EAR: Yes external ears normal EXTERNAL AUDITORY CANAL: EAC's normal Neck/C-Spine: COMMON NORMALS: no JVD Chest: COMMONS NORMALS: normal inspection of the chest and normal palpation of entire chest wall Resp: COMMON NORMALS: normal respiratory effort, No retractions, No use of accessory muscles and clear to auscultation bilaterally AUSCULTATION: clear to auscultation bilaterally Cardio: COMMON NORMALS: no JVD, regular rate, regular rhythm, S1 normal heart sound present, S2 normal heart sound present, No gallops present (Cardio), No clicks present (Cardio), No murmurs present (Cardio) and No rub (Cardio) R ATE: regular rate RHYTHM: regular rhythm HEART SOUNDS: S1 normal heart sound present and S2 normal heart sound present GI: COMMON NORMALS: Normal to inspection, nondistended, normoactive bowel sounds present, Soft to palpation, non-tender, No hepatosplenomegaly present and no masses PALPATION: Yes Soft to palpation and Yes No hepatosplenomegaly present Extremity: NARRATIVE EXTREMITY EXAM: 1+ bilateral lower extremity edema Neuro: COMMON NORMALS: patient oriented x3 SENSORIUM/ORIENTATION: Yes alert Course 2 Vital Signs: Vital signs: Vital Signs Temperature 98.4 F 08/04/23 08:47 Pulse Rate 71 08/04/23 11:00 Respiratory Rate 20 H 08/04/23 11:00 Blood Pressure 168/104 08/04/23 08:47 Pulse Oximetry 96 08/04/23 11:00 Oxygen Delivery Me thod Nasal Cannula 08/04/23 08:47 Oxygen Flow Rate 2 08/04/23 08:47 MDM - SOB/Dyspnea Medical Decision Making Patient physical exam performed and lab work that included CBC CMP cardiac enzymes troponins chest x-ray. Checks x-ray showed no acute findings, lab work was essentially benign. Glucose 167 initial troponin 23, 2-hour troponin 21, for delta of approximately 2 BNP 1582 patient continued to be on 2 L of oxygen and continued saturation of 96%. Patient will be placed on Tessalon Perles for his cough and discharged home to follow-up with his PCP within the next 7 days. Differential Diagnosis Likely acute exacerbation of chronic obstructive airways disease; Unlikely congestive heart failure, community acquired pneumonia, asthma with exacerbation or pulmonary embolism Medical Records I reviewed the patient's medical records. Lab Data I reviewed the patient's lab results. 08/04/23 09:18 08/04/23 09:18 Labs/Radiology: Radiology Impressions Chest X-Ray 08/04/23 08:34 IMPRESSION: No acute cardiopulmonary findings. Laboratory Results WBC 6.81 10^3/uL (3.29-11.43) 08/04/23 09:18 RBC 3.95 10^6/uL (3.85-5.65) 08/04/23 09:18 Hgb 12.20 g/dL (11.27-16.99) 08/04/23 09:18 Hct 37.1 % (37-53) 08/04/23 09:18 MCV 93.9 fl (82-101) 08/04/23 09:18 MCH 30.9 pg (27-33) 08/04/23 09:18 MCHC 32.9 g/dL (30-55) 08/04/23 09:18 RDW 14.6 % (12.1-15.1) 08/04/23 09:18 Plt Count 152 10^3/cmm (157-399) L 08/04/23 09:18 MPV 10.0 fL (7.4-10.4) 08/04/23 09:18 Neut % (Auto) 85.0 % 08/04/23 09:18 Lymph % (Auto) 5.3 % 08/04/23 09:18 [place] % (Auto) 8.7 % 08/04/23 09:18 Eos % (Auto) 0.3 % 08/04/23 09:18 Baso % (Auto) 0.3 % 08/04/23 09:18 Neut # (Auto) 5.79 10^3/uL (1.8-7.7) 08/04/23 09:18 Lymph # (Auto) 0.4 10^3/uL (0.8-4.8) L 08/04/23 09:18 [place] # (Auto) 0.6 10^3/uL (0.2-0.9) 08/04/23 09:18 Eos # (Auto) 0.0 10^3/uL (0.0-0.8) 08/04/23 09:18 Baso # (Auto) 0.0 10^3/uL (0.0-0.1) 08/04/23 09:18 Nucleated RBC % (auto) 0 % 08/04/23 09:18 Nucleated RBCs # 0.0 /100WBC 08/04/23 09:18 PT 14.90 SECONDS (12.1-14.9) 08/04/23 09:18 INR 1.13 (0.8-1.2) 08/04/23 09:18 Sodium 139 mmol/L (136-145) 08/04/23 09:18 Potassium 3.8 mmol/L (3.5-5.1) 08/04/23 09:18 Chloride 100 mmol/L (98-107) 08/04/23 09:18 Carbon Dioxide 28 mmol/L (22-29) 08/04/23 09:18 Anion Gap 14.8 (5-19) 08/04/23 09:18 BUN 15 mg/dL (8-23) 08/04/23 09:18 Creatinine 1.0 mg/dL (0.7-1.2) 08/04/23 09:18 GFR Calculation 74.3 mL/min (90-130) L 08/04/23 09:18 Glucose 167 mg/dL (65-115) H 08/04/23 09:18 Calculated Osmolality 293 mOsm/kg (285-295) 08/04/23 09:18 Calcium 8.5 mg/dL (8.5-10.5) 08/04/23 09:18 Total Bilirubin 0.5 mg/dL (0.15-1.2) 08/04/23 09:18 AST 14 U/L (0-40) 08/04/23 09:18 ALT 28 U/L (0-41) 08/04/23 09:18 Alkaline Phosphatase 79 U/L (40-130) 08/04/23 09:18 Troponin T Baseline 23 ng/L (0-15) H 08/04/23 09:18 Troponin T 120 Minute 21.08 ng/L (0-15) H 08/04/23 11:04 Delta Troponin T -1.92 ABS# (0-10) L 08/04/23 11:04 NT-Pro-B Natriuret Pep 1582 pg/mL (0-125) H 08/04/23 09:18 Total Protein 6.5 g/dL (6.6-8.7) L 08/04/23 09:18 Albumin 3.9 g/dL (3.5-5.2) 08/04/23 09:18 Globulin 2.6 g/dL (1.3-4.6) 08/04/23 09:18 All radiology interpretation(s) finalized by discharge EKG Data EKG 1: I personally reviewed and interpreted this EKG as follows: EKG Interpretation Date: 08/04/23 EKG interpretation time: 08:26 Prior EKG tracings: available for review Interpretation: Ventricular rate 87 beats a minute, FL interval 154, QRS duration 136, QTc of 410, sinus rhythm with occasional PVC EKG 2: I personally reviewed and interpreted this EKG as follows: EKG Interpretation Date: 08/04/23 EKG interpretation time: 10:09 Prior EKG tracings: available for review Interpretation: Ventricular rate 74 bpm, FL interval 162, QRS duration 129, QTc 415, sinus rhythm, Discharge Plan Discharge Patient Disposition: Home Clinical Impression: Shortness of breath Cough Qualifiers: Cough type: acute Qualified Code(s): R05.1 - Acute cough Condition: Stable Prescriptions: New benzonatate 100 mg capsule 100 mg PO TID PRN (Reason: cough) Qty: 30 0RF No Action prochlorperazine maleate [Compazine] 10 mg tablet 10 mg PO Q4H PRN (Reason: Mild Nausea) Qty: 30 1RF aspirin 325 mg tablet 325 mg PO QAM Hold Instructions: Resume on 04/24/22. Spiriva Respimat 1.25 mcg/actuation mist 2 puff inhalation DAILY Patient Comments: Strength unknown abiraterone 250 mg tablet 250 mg PO QAM Qty: 30 2RF Rx Instructions: Must be taken with or within 30 minutes of a low fat breakfast Eliquis 5 mg Tablet 5 mg PO BID Qty: 60 0RF Hold Instructions: Resume on 03/20/20. omeprazole 20 mg capsule,delayed release(DR/EC) 40 mg PO QAM metoprolol tartrate 50 mg Tablet 75 mg PO BID Qty: 90 0RF potassium chloride 20 mEq Tablet Extended Release 10 meq PO QAM furosemide [Lasix] 40 mg tablet 40 mg PO QAM Striverdi Respimat 2.5 mcg/actuation Mist 2 inh INHALATION DAILY Flomax 0.4 mg capsule 0.4 mg PO BID albuterol sulfate 90 mcg/actuation HFA aerosol inhaler 2 inh INHALATION Q4H PRN (Reason: shortness of breath or wheezing) Qty: 18 0RF dorzolamide-timolol 22.3-6.8 mg/mL drops 1 drp ophthalmic (eye) BID prednisolone acetate 1 % drops,suspension 1 drp ophthalmic (eye) QID loratadine 10 mg tablet 10 mg PO QAM brimonidine 0.2 % drops 1 drp ophthalmic (eye) Q8H Rx Instructions: right eye Nitrostat 0.4 mg Tablet, Sublingual 0.4 mg SUBLINGUAL Q5M PRN (Reason: Chest Pain) Rx Instructions: do not exceed 3 doses per episode levofloxacin 500 mg tablet 500 mg PO DAILY Rx Instructions: for 7 days (rx filled 07/30/23) methylprednisolone 4 mg tablets,dose pack See Rx Instructions .ROUTE .COMPLEX Rx Instructions: Take as directed on package for 6 days (rx filled 07/30/23) prednisone 5 mg tablet 5 mg PO QAM digoxin 250 mcg (0.25 mg) tablet 250 mcg PO QAM Discharge Orders: Discharge ED (Routine); Ordered 08/04/23 Ordered By: Sina Christiansen Referrals: Isela Gipson FNP [Primary Care Provider] - 1 week Patient Instructions: Acute Cough (ED), Shortness of Breath (ED) Activity Restrictions/Additional Instructions: Your workup in ER did not reveal any acute cause of your cough or shortness of breath. You will be placed on a prescription cough medicine. Please take all medicine as prescribed. Please follow-up with your family practice doctor within next 7 days for further evaluation and treatment as needed. 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 of Care Code ED [employer] for Kevin Arceo
[2023-08-04 09:53] LABS: Basophils % 0.3 %; Eosinophils % 0.3 %; Hematocrit 37.1 % (37-53); Lymphocytes # 0.4 10^3/uL (0.8-4.8); Lymphocytes % 5.3 %; Mean Corpuscular HGB Conc 32.9 g/dL (30-55); Mean Corpuscular Hemoglobin 30.9 pg (27-33); Mean Corpuscular Volume 93.9 fl (82-101); Monocytes # 0.6 10^3/uL (0.2-0.9); Monocytes % 8.7 %; Neutrophils # 5.79 10^3/uL (1.8-7.7); Nucleated Red Blood Cells % 0 %; Platelet Count 152 10^3/cmm (157-399); Red Blood Count 3.95 10^6/uL (3.85-5.65); Red Cell Distribution Width 14.6 % (12.1-15.1); White Blood Count 6.81 10^3/uL (3.29-11.43)
[2023-08-04 10:03] LABS: INR 1.13 (0.8-1.2)
--- NOTE | 2023-08-04 10:09 | ECG_ITS ---
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 Measurements Intervals [place] Rate: 74 P: 65 WV: 162 QRS: -33 QRSD: 129 T: 82 QT: 388 QTc: 431 Interpretive Statements SINUS RHYTHM RIGHT BUNDLE BRANCH BLOCK [120+ ms QRS DURATION, UPRIGHT V1, 40+ ms S IN I/aVL/V4/V5/V6] INFERIOR MYOCARDIAL INFARCTION , PROBABLY OLD [40+ ms Q WAVE AND/OR ST/T ABNORMALITY IN II/aVF] MODERATE T-WAVE ABNORMALITY, CONSIDER ANTEROLATERAL ISCHEMIA [-0.1+ mV T-WAVE IN V3-V6] Compared to ECG 08/04/2023 08:26:33 T-wave abnormality now present Possible ischemia now present ST (T wave) deviation no longer present Myocardial infarct finding still present Electronically Signed On 08-05-2023 9:37:08 POSTAL DELIVERY OFFICER by Favio Ferguson M.D. [email or web address]
[2023-08-04 10:13] LABS: Troponin(5th) Baseline 23 ng/L (0-15)
[2023-08-04 10:22] LABS: Alanine Aminotransferase 28 U/L (0-41); Albumin Level 3.9 g/dL (3.5-5.2); Alkaline Phosphatase 79 U/L (40-130); Anion Gap 14.8 (5-19); Aspartate Amino Transferase 14 U/L (0-40); Blood Urea Nitrogen 15 mg/dL (8-23); Calcium 8.5 mg/dL (8.5-10.5); Carbon Dioxide 28 mmol/L (22-29); Chloride 100 mmol/L (98-107); Creatinine Clr Calc Pharmacy 80.9944; Globulin 2.6 g/dL (1.3-4.6); Glomerular Filtration Rate 74.3 mL/min (90-130); Glucose 167 mg/dL (65-115); NT Pro B Type Natriuretic Pept 1582 pg/mL (0-125); Osmolality Calculated 293 mOsm/kg (285-295); Potassium 3.8 mmol/L (3.5-5.1); Sodium 139 mmol/L (136-145); Total Bilirubin 0.5 mg/dL (0.15-1.2); Total Protein 6.5 g/dL (6.6-8.7)
[2023-08-04 10:56] VITALS: PULSE 71; RESP 22; O2SAT 96
[2023-08-04 11:00] VITALS: PULSE 71; RESP 20; O2SAT 96
--- NOTE | 2023-08-04 11:22 | PC.PHAR ---
pt states he takes care of his own medications-pt states he finished his budesonide bid and ipratropium-albuterol qid both filled 06/21/23 pt states been out for a week or longer-pt states he is not taking iron 325mg-pt states he has been taking his daily prednisone 5mg daily along with his medrol dosepak filled on 07/30/23-pt states he finished the moxifloxacin 0.5% eye drops 1 drop right eye qid for 7 days rx filled 07/10/23 7d/s-pt states he takes the medications entered [facility] so medications entered are what the pt states he takes and what ext med history shows
[2023-08-04 11:27] LABS: Troponin 5 2HR 21.08 ng/L (0-15)
[2023-08-04 11:40] LABS: Troponin 5 2HR Delta -1.92 ABS# (0-10)
== END 2023-08-04 13:07 | disposition home or self-care (01) ==
PROVIDERS: Emergency Provider Emergency Medicine; PCP Nurse Practitioner
DX: R05.1 Acute cough (principal); R06.02 Shortness of breath; Z79.82 Long term (current) use of aspirin; Z79.01 Long term (current) use of anticoagulants; Z87.891 Personal history of nicotine dependence; Z95.1 Presence of aortocoronary bypass graft; I11.0 Hypertensive heart disease with heart failure; I50.9 Heart failure, unspecified; I25.10 Atherosclerotic heart disease of native coronary artery without angina pectoris; E78.5 Hyperlipidemia, unspecified; J44.9 Chronic obstructive pulmonary disease, unspecified
CPT/HCPCS: 36415; 71045; 80053; 83880; 84484; 85025; 85610; 93005; 99285

== ENCOUNTER 2023-08-12 11:42 | Oncology outpatient (recurring) (ONCR) | payer OTHER, MEDICARE, SELFPAY ==
[2023-08-12 12:07] VITALS: BP 117/55; PULSE 57; RESP 18; TEMP 37.4; O2SAT 89
[2023-08-12 12:19] LABS: Basophils % 0.9 %; Eosinophils % 0.9 %; Hematocrit 38.4 % (37-53); Lymphocytes # 0.4 10^3/uL (0.8-4.8); Lymphocytes % 12.5 %; Mean Corpuscular HGB Conc 32.8 g/dL (30-55); Mean Corpuscular Hemoglobin 30.9 pg (27-33); Mean Corpuscular Volume 94.1 fl (82-101); Mean Platelet Volume 9.7 fL (7.4-10.4); Monocytes # 0.3 10^3/uL (0.2-0.9); Neutrophils # 2.61 10^3/uL (1.8-7.7); Neutrophils % 76.1 %; Nucleated Red Blood Cells % 0 %; Platelet Count 201 10^3/cmm (157-399); Red Blood Count 4.08 10^6/uL (3.85-5.65); Red Cell Distribution Width 14.3 % (12.1-15.1); White Blood Count 3.43 10^3/uL (3.29-11.43)
[2023-08-12 13:00] LABS: Alanine Aminotransferase 22 U/L (0-41); Albumin Level 3.6 g/dL (3.5-5.2); Alkaline Phosphatase 79 U/L (40-130); Anion Gap 13.9 (5-19); Aspartate Amino Transferase 16 U/L (0-40); Blood Urea Nitrogen 11 mg/dL (8-23); Carbon Dioxide 29 mmol/L (22-29); Chloride 100 mmol/L (98-107); Creatinine Clr Calc Pharmacy 90.0947; Globulin 3.2 g/dL (1.3-4.6); Glomerular Filtration Rate 83.9 mL/min (90-130); Glucose 137 mg/dL (65-115); Osmolality Calculated 290 mOsm/kg (285-295); Potassium 3.9 mmol/L (3.5-5.1); Sodium 139 mmol/L (136-145); Testosterone Total 2.5 ng/dL (193-740); Total Bilirubin 0.4 mg/dL (0.15-1.2); Total Protein 6.8 g/dL (6.6-8.7)
[2023-08-12 13:01] LABS: Prostate Specific Antigen < 0.014 ng/mL (0-4)
[2023-08-12] MEDS: leuprolide 22.5 mg Kit IM (14:21)
[2023-08-12 14:22] VITALS: BP 112/78; PULSE 74; RESP 18; TEMP 36.6; O2SAT 94
== END 2023-09-01 23:59 | disposition home or self-care (01) ==
PROVIDERS: Nurse Practitioner Family; PCP Nurse Practitioner; Visit Provider Internal Medicine Medical Oncology
DX: Z45.2 Encounter for adjustment and management of vascular access device (principal); Z95.828 Presence of other vascular implants and grafts; E61.1 Iron deficiency; Z20.9 Contact with and (suspected) exposure to unspecified communicable disease; W46.0XXA Contact with hypodermic needle, initial encounter
CPT/HCPCS: 36591; 80053; 84153; 84403; 85025; 96402; 99214; J1642; J9217

== ENCOUNTER → 2023-09-05 08:50 | Outpatient (BNVA) | payer OTHER, MEDICARE, SELFPAY | PROVIDERS: PCP Nurse Practitioner; Visit Provider Internal Medicine Pulmonary Disease | DX: J44.9 Chronic obstructive pulmonary disease, unspecified (principal); J43.2 Centrilobular emphysema; Z87.891 Personal history of nicotine dependence | CPT/HCPCS: 99214 ==

== ENCOUNTER 2023-09-18 15:48 | Emergency (ER) | payer OTHER, SELFPAY ==
[2023-09-18 15:50] VITALS: BP 167/81; PULSE 100; TEMP 36.9; O2SAT 95; BMI 29.4
--- NOTE | 2023-09-18 16:14 | ED_ITS ---
HPI - Nausea/Vomiting/Diarrhea 2 General: Chief complaint: Nausea/Vomiting/Diarrhea Stated complaint: N/V/D Time Seen by Provider: 09/18/23 15:49 Source: patient and EMS Mode of arrival: EMS Limitations: no limitations History of Present Illness: 68-year-old male states that he has had nausea vomiting diarrhea over the last 2 days has had some slight weakness with some vomiting diarrhea as well. He denies any fevers he denies any abdominal pain he denies any worsening improving factors. He does have a history of prostate cancer he states he takes some type of pill he is unsure exactly what it is. Associated nausea: Yes Associated symtoms: Reports nausea; Denies chest pain or headache(s) Review of Systems 2 Const: Denies: fever(s), chills, body aches or change in appetite ENMT: Denies: throat pain or dental pain Card: Denies: chest pain Resp: Denies: dyspnea GI: Reports: nausea, vomiting and diarrhea; Denies: abdominal pain Musc: Denies: neck pain or back pain Skin/Breast: Denies: rash Neuro: Denies: headache(s) PFSH ED 2 PFSH: Medical History Prostate cancer History of colon polyps Chronic anticoagulation eliquis, for afib Chronic respiratory failure with hypoxia Heart failure with preserved ejection fraction Coronary artery disease CHF (congestive heart failure) Last echocardiogram normal EF, grade 2/4 diastolic dysfunction October 2019 Hypertension Anemia Atrial fibrillation GERD (gastroesophageal reflux disease) Hypothyroidism Hyperlipidemia COPD (chronic obstructive pulmonary disease) Surgical History History of cataract surgery Left eye - 12/2022 H/O prostate biopsy S/P appendectomy S/P cholecystectomy History of colonoscopy (~04/2020) History of vasectomy History of knee surgery History of coronary artery bypass graft (03/2019) [address] [place] [address] Family History Father , IN HIS 50'S Lung disease tuberculosis Mother , AT AGE 63 CAD (coronary artery disease) Diabetes Hypertension Sister Cancer Denies family history of Clotting disorder Dementia Hyperlipidemia Psychiatric illness Chronic kidney disease (CKD) Suicide Anesthesia complication Bleeding disorder Stroke Social History Smoking and tobacco/nicotine status: former use of tobacco/nicotine Quit status (tobacco/nicotine): has quit using Year quit tobacco: 2017 - PPD x 52 Years Alcohol intake: never Substance/Drug Use: never Lives independently: Yes Household members: none Marital status: Legally Current occupational status: employed and retired Do you think of yourself as: Straight/Heterosexual Current gender identity: Male Physical Exam 2 Const: COMMON NORMALS: no acute distress, patient oriented x3 and healthy appearing HENMT: COMMON NORMALS: normocephalic and atraumatic HEAD & SCALP: n ormocephalic and atraumatic Neck/C-Spine: COMMON NORMALS: full ROM and supple Chest: COMMONS NORMALS: normal inspection of the chest Resp: COMMON NORMALS: normal respiratory effort, No retractions, No use of accessory muscles and clear to auscultation bilaterally AUSCULTATION: clear to auscultation bilaterally Cardio: COMMON NORMALS: regular rate, regular rhythm and No murmurs present (Cardio) RATE: regular rate RHYTHM: regular rhythm GI: COMMON NORMALS: Normal to inspection, nondistended, normoactive bowel sounds present, Soft to palpation, non-tender and no masses PALPATION: Yes Soft to palpation Extremity: COMMON NORMALS: normal to inspection and full ROM Neuro: COMMON NORMALS: patient oriented x3, moves all extremities and no focal motor deficits Psych: COMMON NORMALS: mental status grossly normal, Normal thought process present and cooperative THOUGHT PROCESS: Normal thought process present Skin: COMMON NORMALS: no rashes or lesions noted and no wounds GENERAL SKIN EXAM: no rashes or lesions noted Course 2 Vital Signs: Vital signs: Vital Signs Temperature 98.4 F 09/18/23 15:50 Pulse Rate 91 09/18/23 17:46 Blood Pressure 157/69 09/18/23 17:46 Pulse Oximetry 96 09/18/23 17:46 Oxygen Delivery Me thod Nasal Cannula 09/18/23 15:50 Oxygen Flow Rate 2 09/18/23 15:50 MDM - Nausea/Vomiting/Diarrhea Medical Decision Making Patient presents here with vomiting diarrhea he has been well-appearing here feels improved after Zofran his blood work here is normal abdominal exam is benign he is stable for discharge she is follow-up with PCP and return if worsening he understands agrees to plan will prescribe Zofran for home Medical Records I reviewed the patient's medical records. Lab Data I reviewed the patient's lab results. 09/18/23 16:16 09/18/23 16:16 Laboratory Results WBC 6.24 10^3/uL (3.29-11.43) 09/18/23 16:16 RBC 3.72 10^6/uL (3.85-5.65) L 09/18/23 16:16 Hgb 11.30 g/dL (11.27-16.99) 09/18/23 16:16 Hct 33.4 % (37-53) L 09/18/23 16:16 MCV 89.8 fl (82-101) 09/18/23 16:16 MCH 30.4 pg (27-33) 09/18/23 16:16 MCHC 33.8 g/dL (30-55) 09/18/23 16:16 RDW 14.4 % (12.1-15.1) 09/18/23 16:16 Plt Count 158 10^3/cmm (157-399) 09/18/23 16:16 MPV 9.2 fL (7.4-10.4) 09/18/23 16:16 Neut % (Auto) 86.5 % 09/18/23 16:16 Lymph % (Auto) 5.8 % 09/18/23 16:16 [place] % (Auto) 6.4 % 09/18/23 16:16 Eos % (Auto) 0.6 % 09/18/23 16:16 Baso % (Auto) 0.2 % 09/18/23 16:16 Neut # (Auto) 5.40 10^3/uL (1.8-7.7) 09/18/23 16:16 Lymph # (Auto) 0.4 10^3/uL (0.8-4.8) L 09/18/23 16:16 [place] # (Auto) 0.4 10^3/uL (0.2-0.9) 09/18/23 16:16 Eos # (Auto) 0.0 10^3/uL (0.0-0.8) 09/18/23 16:16 Baso # (Auto) 0.0 10^3/uL (0.0-0.1) 09/18/23 16:16 Nucleated RBC % (auto) 0 % 09/18/23 16:16 Nucleated RBCs # 0.0 /100WBC 09/18/23 16:16 Sodium 136 mmol/L (136-145) 09/18/23 16:16 Potassium 3.5 mmol/L (3.5-5.1) 09/18/23 16:16 Chloride 99 mmol/L (98-107) 09/18/23 16:16 Carbon Dioxide 28 mmol/L (22-29) 09/18/23 16:16 Anion Gap 12.5 (5-19) 09/18/23 16:16 BUN 10 mg/dL (8-23) 09/18/23 16:16 Creatinine 0.9 mg/dL (0.7-1.2) 09/18/23 16:16 GFR Calculation 83.7 mL/min (90-130) L 09/18/23 16:16 Glucose 167 mg/dL (65-115) H 09/18/23 16:16 Calculated Osmolality 285 mOsm/kg (285-295) 09/18/23 16:16 Calcium 9.0 mg/dL (8.5-10.5) 09/18/23 16:16 Total Bilirubin 0.6 mg/dL (0.15-1.2) 09/18/23 16:16 AST 19 U/L (0-40) 09/18/23 16:16 ALT 21 U/L (0-41) 09/18/23 16:16 Alkaline Phosphatase 95 U/L (40-130) 09/18/23 16:16 Total Protein 7.3 g/dL (6.6-8.7) 09/18/23 16:16 Albumin 3.9 g/dL (3.5-5.2) 09/18/23 16:16 Globulin 3.4 g/dL (1.3-4.6) 09/18/23 16:16 Lipase 11 U/L (13-60) L 09/18/23 16:16 No radiology studies performed this visit Discharge Plan Discharge Patient Disposition: Home Clinical Impression: Vomiting Condition: Stable Prescriptions: New ondansetron 4 mg tablet,disintegrating 4 mg PO Q6H PRN (Reason: nausea and vomiting) Qty: 14 0RF No Action Stiolto Respimat 2.5-2.5 mcg/actuation mist 2 puff inhalation DAILY Qty: 4 6RF budesonide 0.5 mg/2 mL suspension for nebulization 0.25 mg inhalation BID Qty: 60 6RF aspirin 325 mg tablet 325 mg PO QAM Hold Instructions: Resume on 04/24/22. abiraterone 250 mg tablet 250 mg PO QAM Qty: 90 0RF Rx Instructions: Must be taken with or within 30 minutes of a low fat breakfast prochlorperazine maleate [Compazine] 10 mg tablet 10 mg PO Q4H PRN (Reason: Mild Nausea) Qty: 30 1RF Eliquis 5 mg Tablet 5 mg PO BID Qty: 60 0RF Hold Instructions: Resume on 03/20/20. omeprazole 20 mg capsule,delayed release(DR/EC) 40 mg PO QAM metoprolol tartrate 50 mg Tablet 75 mg PO BID Qty: 90 0RF potassium chloride 20 mEq Tablet Extended Release 10 meq PO QAM furosemide [Lasix] 40 mg tablet 40 mg PO QAM Flomax 0.4 mg capsule 0.4 mg PO BID albuterol sulfate 90 mcg/actuation HFA aerosol inhaler 2 inh INHALATION Q4H PRN (Reason: shortness of breath or wheezing) Qty: 18 0RF dorzolamide-timolol 22.3-6.8 mg/mL drops 1 drp ophthalmic (eye) BID prednisolone acetate 1 % drops,suspension 1 drp ophthalmic (eye) QID loratadine 10 mg tablet 10 mg PO QAM brimonidine 0.2 % drops 1 drp ophthalmic (eye) Q8H Rx Instructions: right eye Nitrostat 0.4 mg Tablet, Sublingual 0.4 mg SUBLINGUAL Q5M PRN (Reason: Chest Pain) Rx Instructions: do not exceed 3 doses per episode prednisone 5 mg tablet 5 mg PO QAM digoxin 250 mcg (0.25 mg) tablet 250 mcg PO QAM benzonatate 100 mg capsule 100 mg PO TID PRN (Reason: cough) Qty: 30 0RF Discharge Orders: Discharge ED (Routine); Ordered 09/18/23 Ordered By: Liz Fuentes Referrals: Isela Gipson FNP [Primary Care Provider] - 1-3 days Discharge Diet: Advance as tolerated Discharge Activity: Resume usual activity Patient Instructions: Acute Nausea and Vomiting (ED) 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 of Care Code ED [employer] for Kevin Arceo
[2023-09-18 16:23] LABS: Basophils % 0.2 %; Eosinophils % 0.6 %; Hematocrit 33.4 % (37-53); Lymphocytes # 0.4 10^3/uL (0.8-4.8); Lymphocytes % 5.8 %; Mean Corpuscular HGB Conc 33.8 g/dL (30-55); Mean Corpuscular Hemoglobin 30.4 pg (27-33); Mean Corpuscular Volume 89.8 fl (82-101); Mean Platelet Volume 9.2 fL (7.4-10.4); Monocytes # 0.4 10^3/uL (0.2-0.9); Monocytes % 6.4 %; Neutrophils % 86.5 %; Nucleated Red Blood Cells % 0 %; Platelet Count 158 10^3/cmm (157-399); Red Blood Count 3.72 10^6/uL (3.85-5.65); Red Cell Distribution Width 14.4 % (12.1-15.1); White Blood Count 6.24 10^3/uL (3.29-11.43)
[2023-09-18] MEDS: ondansetron 2 mg/ML SDV 2 mL 4 MG IVP (16:25)
[2023-09-18] MEDS: diphenoxylate/atropine Tablet 1 TAB PO (16:25)
[2023-09-18] MEDS: sodium chloride 0.9% 1,000 ML 999 ML IV (16:28)
[2023-09-18 16:39] LABS: Alanine Aminotransferase 21 U/L (0-41); Albumin Level 3.9 g/dL (3.5-5.2); Alkaline Phosphatase 95 U/L (40-130); Anion Gap 12.5 (5-19); Aspartate Amino Transferase 19 U/L (0-40); Blood Urea Nitrogen 10 mg/dL (8-23); Carbon Dioxide 28 mmol/L (22-29); Chloride 99 mmol/L (98-107); Creatinine Clr Calc Pharmacy 88.7439; Globulin 3.4 g/dL (1.3-4.6); Glomerular Filtration Rate 83.7 mL/min (90-130); Glucose 167 mg/dL (65-115); Lipase 11 U/L (13-60); Osmolality Calculated 285 mOsm/kg (285-295); Potassium 3.5 mmol/L (3.5-5.1); Sodium 136 mmol/L (136-145); Total Bilirubin 0.6 mg/dL (0.15-1.2); Total Protein 7.3 g/dL (6.6-8.7)
--- NOTE | 2023-09-18 16:50 | PC.PHAR ---
[facility] DAY. 09/18/23
[2023-09-18 17:46] VITALS: BP 157/69; PULSE 91; O2SAT 96
== END 2023-09-18 17:47 | disposition home or self-care (01) ==
PROVIDERS: Emergency Provider Emergency Medicine; PCP Nurse Practitioner
DX: R11.11 Vomiting without nausea (principal); Z79.82 Long term (current) use of aspirin; Z79.01 Long term (current) use of anticoagulants; Z87.891 Personal history of nicotine dependence; Z95.1 Presence of aortocoronary bypass graft; Z85.46 Personal history of malignant neoplasm of prostate; I11.0 Hypertensive heart disease with heart failure; I50.9 Heart failure, unspecified; E78.5 Hyperlipidemia, unspecified; J44.9 Chronic obstructive pulmonary disease, unspecified
CPT/HCPCS: 36415; 80053; 83690; 85025; 96374; 99284; J2405; J7030

== ENCOUNTER 2023-11-19 15:00 | Oncology outpatient (recurring) (ONCR) | payer OTHER, SELFPAY ==
[2023-11-12 12:41] LABS: Basophils % 0.5 %; Eosinophils # 0.1 10^3/uL (0.0-0.8); Eosinophils % 1.3 %; Hematocrit 37.8 % (37-53); Lymphocytes # 0.5 10^3/uL (0.8-4.8); Lymphocytes % 13.7 %; Mean Corpuscular HGB Conc 32.8 g/dL (30-55); Mean Corpuscular Hemoglobin 29.8 pg (27-33); Mean Corpuscular Volume 90.9 fl (82-101); Monocytes # 0.2 10^3/uL (0.2-0.9); Monocytes % 5.8 %; Neutrophils # 2.97 10^3/uL (1.8-7.7); Neutrophils % 78.2 %; Nucleated Red Blood Cells % 0 %; Platelet Count 131 10^3/cmm (157-399); Red Blood Count 4.16 10^6/uL (3.85-5.65); Red Cell Distribution Width 14.6 % (12.1-15.1)
[2023-11-12 13:13] LABS: Alanine Aminotransferase 30 U/L (0-41); Albumin Level 4.1 g/dL (3.5-5.2); Alkaline Phosphatase 110 U/L (40-130); Aspartate Amino Transferase 22 U/L (0-40); Blood Urea Nitrogen 13 mg/dL (8-23); Carbon Dioxide 27 mmol/L (22-29); Chloride 98 mmol/L (98-107); Globulin 3.1 g/dL (1.3-4.6); Glomerular Filtration Rate 74.1 mL/min (90-130); Glucose 267 mg/dL (65-115); Osmolality Calculated 291 mOsm/kg (285-295); Sodium 136 mmol/L (136-145); Testosterone Total 2.5 ng/dL (193-740); Total Bilirubin 0.4 mg/dL (0.15-1.2); Total Protein 7.2 g/dL (6.6-8.7)
[2023-11-12 13:17] LABS: Prostate Specific Antigen < 0.014 ng/mL (0-4)
[2023-11-12 13:18] LABS: Anion Gap 15.2 (5-19); Potassium 4.2 mmol/L (3.5-5.1)
[2023-11-12] MEDS: leuprolide 22.5 mg Kit IM (15:06)
== END 2023-12-01 23:59 | disposition home or self-care (01) ==
PROVIDERS: PCP Nurse Practitioner; Visit Provider Internal Medicine Medical Oncology
DX: Z53.9 Procedure and treatment not carried out, unspecified reason
CPT/HCPCS: 36591; 80053; 84153; 84403; 85025; 96402; 99214; J9217

== ENCOUNTER → 2023-11-20 09:44 | Outpatient (BNVA) | payer OTHER, SELFPAY | PROVIDERS: PCP Nurse Practitioner; Referring Provider Nurse Practitioner Family; Visit Provider Surgery | DX: C61 Malignant neoplasm of prostate (principal); Z95.828 Presence of other vascular implants and grafts | CPT/HCPCS: 99203; 99213 ==

== ENCOUNTER 2023-12-02 09:48 | Day surgery (SDC) | payer OTHER, SELFPAY ==
[2023-12-02] VITALS (10 sets, daily range): BP systolic 101–145; BP diastolic 65–91; PULSE 67–97; RESP 14–20; TEMP 36.1–36.5; O2SAT 92–97; BMI 29.4
[2023-12-02] MEDS: sodium chloride 0.9% 1,000 ML 30 ML IV (10:25)
--- NOTE | 2023-12-02 10:35 | P.ANESASSM_ITS ---
Pre-Anesthetic Assessment Height/Weight: Height 1.78 m Weight 92.986 kg Temp Pulse Resp BP Pulse Ox O2 Del Method 97 F L 97 20 H 123/72 94 Room Air 12/02/23 10:10 12/02/23 10:10 12/02/23 10:10 12/02/23 10:10 12/02/23 10:10 12/02/23 10:15 Operation Date: 12/02/23 11:20 Proposed Procedures p Portacath Removal 73507, C61(Not Applicable) - Kenneth Roberts MD Familial anesthetic complications: none Was Beta Kulwant taken within 24 hours: Yes Was Clonidine taken within 24 hours: N/A Last intake: Intake Last Liquid Date 12/01/23 Last Liquid Time 23:00 Last Solid Date 12/01/23 Last Solid Time 15:00 Social No alcohol and No tobacco (h/o smoking) Exam alert, oriented x 3 and regular rate & rhythm Airway Submandibular: within normal limits Cervical ROM: within normal limits Mallampati: Class II Dentition: false Pulmonary Chronic Obstructive Pulmonary Disease CV/HEM Atrial Fibrillation, Anemia, Arrythmia, Coronary Artery Disease and Hypertension GI Gastroesophageal Reflux Disease Metabolic Morbid Obesity Anesthetic Plan ASA status: 3 Anesthesia: MAC Medications/Allergies Home Medications Medication Instructions Recorded Confirmed Last Taken Type apixaban 5 mg tablet (Eliquis) 5 mg PO BID #60 tabs 10/16/19 11/29/23 11/25/23 Rx metoprolol tartrate 50 mg tablet 75 mg (1.5 x 50 mg) PO BID #90 tabs 01/22/20 11/29/23 12/02/23 04:00 Rx omeprazole 20 mg capsule,delayed 40 mg PO QAM 10/04/20 11/29/23 12/02/23 04:00 History release furosemide 40 mg tablet (Lasix) 40 mg PO QAM 03/28/21 11/29/23 11/29/23 History potassium chloride 20 mEq 10 meq PO QAM 03/28/21 11/29/23 12/02/23 04:00 History tablet,extended release aspirin 325 mg tablet 325 mg PO QAM 01/10/22 11/29/23 11/24/23 History albuterol sulfate 90 mcg/actuation 2 inh inhalation Q4H PRN shortness 07/27/22 11/29/23 11/28/23 Rx aerosol inhaler of breath or wheezing #18 grams tamsulosin 0.4 mg capsule (Flomax) 0.4 mg PO BID 02/25/23 11/29/23 12/02/23 04:00 History loratadine 10 mg tablet 10 mg PO QAM 05/15/23 11/29/23 12/02/23 04:00 History benzonatate 100 mg capsule 100 mg PO TID PRN cough #30 caps 08/04/23 11/29/23 Unknown Rx digoxin 250 mcg (0.25 mg) tablet 250 mcg PO QAM 08/04/23 11/29/23 12/02/23 04:00 History nitroglycerin 0.4 mg sublingual 0.4 mg sublingual Q5M PRN Chest 08/04/23 11/29/23 Unknown History tablet (Nitrostat) Pain prednisone 5 mg tablet 5 mg PO QAM 08/04/23 11/29/23 12/02/23 04:00 History ondansetron 4 mg disintegrating 4 mg PO Q6H PRN nausea and 09/18/23 11/29/23 11/28/23 Rx tablet vomiting #14 tabs Allergies Allergy/AdvReac Type Severity Reaction Status Date / Time No Known Allergies Allergy Verified 11/20/23 09:59 Current Medications Generic Name Dose Route Start Last Admin Trade Name Freq PRN Reason Stop Dose Admin Sodium Chloride 1,000 mls @ 30 mls/hr 12/02/23 10:00 12/02/23 10:25 Sodium Chloride 0.9% IV 12/03/23 09:59 30 mls/hr .Q24H JUAN DAVID Administration PFSH Anesthesia Medical History Prostate cancer History of colon polyps Chronic anticoagulation eliquis, for afib Chronic respiratory failure with hypoxia Heart failure with preserved ejection fraction Coronary artery disease CHF (congestive heart failure) Last echocardiogram normal EF, grade 2/4 diastolic dysfunction October 2019 Hypertension Anemia Atrial fibrillation GERD (gastroesophageal reflux disease) Hypothyroidism Hyperlipidemia COPD (chronic obstructive pulmonary disease) Surgical History History of cataract surgery Left eye - 12/2022 H/O prostate biopsy S/P appendectomy S/P cholecystectomy History of colonoscopy (~04/2020) History of vasectomy History of knee surgery [facility] of [facility] Father , IN HIS 50'S Lung disease tuberculosis Mother , AT AGE 63 CAD (coronary artery disease) Diabetes Hypertension Sister Cancer Denies family history of Clotting disorder Dementia Hyperlipidemia Psychiatric illness Chronic kidney disease (CKD) Suicide Anesthesia complication Bleeding disorder Stroke Social History Smoking and tobacco/nicotine status: never used tobacco/nicotine Quit status (tobacco/nicotine): has quit using Year quit tobacco: 2017 - PPD x 52 Years Alcohol intake: never Substance/Drug Use: never Lives independently: Yes Household members: none Marital status: Legally Current occupational status: employed and retired Do you think of yourself as: Straight/Heterosexual Current gender identity: Male Data Anesthesia Cardiac Studies: Echocardiogram 06/18/23 Echocardiogram Ultrasound 10/16/19 Sestamibi Stress Test (Cardiology) 06/19
--- NOTE | 2023-12-02 11:05 | P.HPUD_ITS ---
Surgery/Procedure H&P Update DATE OF PROCEDURE: December 02, 2023 DATE H&P PERFORMED: 11/20/23 H&P UPDATE INFORMATION: I have reviewed H&P completed within last 30 days, I have examined patient prior to procedure, No changes to prior documentation and H&P is in [facility] [place] [place] EMR on date indicated PLANNED PROCEDURE: Operation Date: 12/02/23 11:20 Proposed Procedures p Portacath Removal 38923, C61(Not Applicable) - Kenneth Roberts MD
[2023-12-02] MEDS: ceFAZolin 2,000 MG in sodium chloride 0.9% (plus) 50 ML 100 MG IV (11:10)
[2023-12-02] MEDS: lidocaine-epi 1% 20 mL INJ 10 ML INJECTION (11:33)
[2023-12-02] MEDS: BUPivacaine 0.25% INJ 10 mL INJECTION (11:33)
--- NOTE | 2023-12-02 11:48 | PM.OP ---
Operative Report Date of procedure: December 02, 2023 Pre-op diagnosis: History of prostate cancer Post-op diagnosis: Same Post-op findings: Port-A-Cath in place with a capsule around. Procedure done: Excision of Port-A-Cath and capsule Implants: None Specimens removed/disposition: Port-A-Cath, Port-A-Cath capsule Surgeon: Kenneth Roberts MD Senior Fire Protection Engineer: KARRIE OR Staff Estimated blood loss: 5 Complications: none Brief History: This a 68-year-old male with history of prostate cancer who has completed therapy and presents for excision of Port-A-Cath. After discussion of all recent benefits as documented my preop note we decided to proceed. Procedure: Patient was brought into the OR, he was placed in the supine position. Moderate anesthesia was given. Timeout was conducted after the upper chest was prepped and draped in usual sterile fashion. Identify the Port-A-Cath under the skin and I made an incision encircling the previous surgical incision and resected the scar. The incision was deepened to subcutaneous tissue with electrocautery until the cuff of the catheter was identified, at this point I open the capsule around the Port-A-Cath. Once the Port-A-Cath was completely visualized and I was sure that there was free from any other attachments I proceeded to deliver the Port-A-Cath through the wound and then pull out the catheter in once with motion. Pressure was held on the neck to prevent backbleeding. I then used a 3-0 Vicryl to close the tract. I then proceeded to resect the capsule with electrocautery. Hemostasis was achieved. The wound was irrigated. The wound was then closed in layers using #3-0 Vicryl for the subcutaneous tissue and #4 Monocryl for the skin. Dermabond was applied. A sterile dressing was applied on top with compression on the area of the Port-A-Cath. The patient tolerated well the procedure, the counts were correct, the patient was transferred to PACU in stable condition.
[2023-12-02] MEDS: fentaNYL 50 mcg/mL INJ 2mL IVP (11:53)
[2023-12-02] MEDS: oxyCODONE 5 mg IR Tab/Cap PO (12:42)
--- NOTE | 2023-12-02 15:43 | ANE.PACU2 ---
Inpatient post-anesthesia follow up: Airway intact: Yes Vital signs: Temperature 97.2 F Pulse Rate 68 Respiratory Rate 18 Blood Pressure 132/65 Pulse Oximetry 95 Oxygen Delivery Me thod Room Air Oxygen Flow Rate Fraction of Inspir ed Oxygen Hydration adequate: Yes Nausea and vomiting: No Pain level: 2 Mental status: Baseline
== END 2023-12-02 12:50 | disposition home or self-care (01) ==
PROVIDERS: PCP Nurse Practitioner; Visit Provider Surgery
PROC: (CPT 36589; principal; 2023-12-02 11:10)
DX: Z85.46 Personal history of malignant neoplasm of prostate (principal); J44.9 Chronic obstructive pulmonary disease, unspecified; I48.91 Unspecified atrial fibrillation; I25.10 Atherosclerotic heart disease of native coronary artery without angina pectoris; I10 Essential (primary) hypertension; K21.9 Gastro-esophageal reflux disease without esophagitis; Z79.01 Long term (current) use of anticoagulants; I50.30 Unspecified diastolic (congestive) heart failure; E03.9 Hypothyroidism, unspecified; E78.5 Hyperlipidemia, unspecified
CPT/HCPCS: 36590; 88300; J0690; J2704; J3010; J3490; J7030

== ENCOUNTER → 2023-12-18 09:54 | Outpatient (BNVA) | payer OTHER, SELFPAY | PROVIDERS: PCP Nurse Practitioner; Visit Provider Surgery | DX: C61 Malignant neoplasm of prostate (principal) | CPT/HCPCS: 99213 ==

== ENCOUNTER → 2024-02-26 12:53 | Outpatient (BNVA) | payer OTHER, SELFPAY | PROVIDERS: PCP Nurse Practitioner; Visit Provider Nurse Practitioner | DX: M70.61 Trochanteric bursitis, right hip (principal) | CPT/HCPCS: 20610; 73502; 99204 ==

== ENCOUNTER → 2024-03-04 10:59 | Outpatient (BNVA) | payer OTHER, SELFPAY | PROVIDERS: PCP Nurse Practitioner; Visit Provider Surgery | DX: Z12.11 Encounter for screening for malignant neoplasm of colon (principal) | CPT/HCPCS: 99214 ==

== ENCOUNTER 2024-03-24 10:38 | Day surgery (SDC) | payer OTHER, SELFPAY ==
--- OUTSIDE RECORDS SUMMARY | 2024-03-10 08:50 | XMS_ITS ---
Author Name Unknown Organization [facility] Address [address] [place] [address] Care Team Providers Care Cheese Specialist Name Role Phone Sameera Patel Unavailable REASON FOR VISIT 3m f/u With BMP and bone density test, for possible Prolia.,Source Provider:RAÚL MATUTE Encounters Encounter Location Date Provider Diagnosis [facility] [address] [facility] [address] [place] [address] 02/27/2024 Sameera Patel Plan Of Treatment Next Appt Details Provider Name:Sameera Monzon, 03/16/2024 11:30:00 AM, [address], [place], [address], Progress Notes * SEA HODGEDOB:1955 (68 yo M)Acc No.[id number]:02/27/2024 Progress Notes Patient:?SEA HODGE Provider:?PATO Odom :1955???Age:68 Y???Sex:Male Manpreet e:02/27/2024 Address: [address], [place] Subjective: * Chief Complaints: * ???1. 3m f/u With BMP and haylee ne density test, for possible Prolia.,Source Provider:RAÚL MATUTE. * Medical History:? Objective: * Vitals:? Assessment: Plan: * Treatment: * Billing Information: * Visit Code:? * Procedure Codes:? * Electronic signature of PATO Saldana on 03/10/2024 at 08:50 AM CDT Sign off status: Pending * Provider:?PATO Odom Date:?02/27/2024 Generated for Halie flowers/Fiordaliza/Quinn on:?03/10/2024 08:50 AM CDT
--- OUTSIDE RECORDS SUMMARY | 2024-03-10 08:50 | XMS_ITS ---
Author Name Unknown Organization [facility] Address [address] [place] [address] Care Team Providers Care Air Export Coordinator Name Role Phone Aryan Taylor [phone] Encounters Encounter Location Date Provider Diagnosis [facility] [address] [facility] [address] [place] [address] 02/27/2024 Aryan Taylor Plan Of Treatment Next Appt Details Provider Name:Sameera Monzon, 03/16/2024 11:30:00 AM, [address], [place], [address], Progress Notes * SEA HODGEDOB:1955 (68 yo M)Acc No.[id number]:02/27/2024 Patient:?SHAYLEE HODGEHugo BRIDGES :1955???Age:68 Y???Sex:Male Address: [address], [place], [address] * true * Date:? Generated for Halie flowers/Fiordaliza/eTransmitting on:?03/10/2024 08:50 AM CDT
--- OUTSIDE RECORDS SUMMARY | 2024-03-10 08:51 | XMS_ITS | Patient Health Record ---
Author Name Unknown Organization [facility] Address [address] [place] [address] Care Team Providers Care Media Law Faculty Member Name Role Phone Migration, Provider Unavailable Unavailable Aryan Taylor Unavailable [phone] Sameera Patel Unavailable Reason For Referral Reason Bladder Neck Obstruc tion Referring Provider First Name Chokio Angel ff Referring Provider Last Name [facility] Referred Organization [facility] Referred Provider Aryan Taylor Referred Address [address],[place], [place],[address], Referred Provider Specialty Urology General Notes Shraddha Wilcox 01/28/20 24 08:38:19 AM >RFS to update clinic name faxed to [place] Referral Priority Routine Medications Medication SIG (Take, Route, Frequency, Duration) Notes Start Date End Date Status albuterol 0.833 MG/ML / ipratropium bromide 0.167 MG/ML Inhalation Solution INTRAPULMONARY *Reorder from [facility] for eRx and Interaction Alerts* 01/30/2023 Active Docusate Sodium 100 MG Oral Tablet ORAL *Reorder from [facility] for eRx and Interaction Alerts* 01/30/2023 Active apixaban 5 MG Oral Tablet [Eliquis] ORAL *Reorder from [facility] for eRx and Interaction Alerts* 01/30/2023 Active Furosemide 40 MG Oral Tablet ORAL *Reorder from [facility] for eRx and Interaction Alerts* 01/30/2023 Active aspirin 325 MG Delayed Release Oral Tablet ORAL *Reorder from [facility] for eRx and Interaction Alerts* 01/30/2023 Active LORazepam 1 MG Oral Tablet ORAL *Reorder from [facility] for eRx and Interaction Alerts* 01/30/2023 Active Atorvastatin Calcium 10 MG Oral 01/30/2023 Active Loratadine 10 MG Oral Tablet ORAL *Reorder from [facility] for eRx and Interaction Alerts* 01/30/2023 Active Nitroglycerin 0.4 MG Sublingual 01/30/2023 Active Metoprolol Tartrate 75 MG Oral Tablet ORAL *Reorder from [facility] for eRx and Interaction Alerts* 01/30/2023 Active Omeprazole Magnesium 20 MG Oral 01/30/2023 Active Abiraterone Acetate 250 MG Oral Tablet ORAL *Reorder from [facility] for eRx and Interaction Alerts* 01/30/2023 Active Tamsulosin HCl 0.4 MG Oral 09/24/2023 5 Active 2 ML digoxin 0.25 MG/ML Injection *Reorder from [facility] for eRx and Interaction Alerts* 01/30/2023 Active Calcium Citrate 1500 MG / Cholecalciferol 200 UNT Oral Tablet ORAL *Reorder from [facility] for eRx and Interaction Alerts* 09/24/2023 7 Active 60 ACTUAT olodaterol 0.0025 MG/ACTUAT Inhalation [place] [Striverdi] INTRAPULMONARY *Reorder from [facility] for eRx and Interaction Alerts* 01/30/2023 Active Calcium Carbonate 1250 MG / Cholecalciferol 200 UNT Oral Tablet ORAL *Reorder from [facility] for eRx and Interaction Alerts* 10/03/2023 5 Active 60 ACTUAT tiotropium 0.0025 MG/ACTUAT Inhalation [place] [Spiriva] INTRAPULMONARY *Reorder from [facility] for eRx and Interaction Alerts* 01/30/2023 Active Potassium Chloride 20 MEQ Powder for Oral Solution ORAL *Reorder from [facility] for eRx and Interaction Alerts* 01/30/2023 Active albuterol 0.417 MG/ML Inhalation Solution INTRAPULMONARY *Reorder from [facility] for eRx and Interaction Alerts* 01/30/2023 Active predniSONE 5 MG Oral Tablet ORAL *Reorder from [facility] for eRx and Interaction Alerts* 01/30/2023 Active Vital Signs Heart Rate 78 /min 09/24/2023 Temperature 97.7 degrees Fahrenheit 09/24/2023 Height-cm 177.80 cm 09/24/2023 Blood pressure diastolic 60 mm Hg 09/24/2023 Weight-kg 95.17 kg 09/24/2023 Height 70.00 in 09/24/2023 Blood pressure systolic 131 mm Hg 09/24/2023 Weight 209.814 lbs 09/24/2023 BMI 30.1 kg/m2 09/24/2023 Encounters Encounter Location Date Provider Diagnosis [facility] 0 07/02/2023 Provider Migration [facility] 0 09/24/2023 Provider Migration [facility] 0 11/23/2023 Provider Migration [facility] 0 11/24/2023 Provider Migration [facility] [address] [place] [address] [facility] [address] [place] [address] [facility] [address] [place] [address] 02/27/2024 Aryan Taylor Plan Of Treatment Next Appt Details Provider Name:Sameera Monzon, 03/16/2024 11:30:00 AM, [address], [place], [address], Insurance Providers Payer Name Payer Address Payer Phone Subscriber Number Group Number Insured Name Patient Relationship to Insured Coverage Start Date Coverage End Date [employer] [address] [place] [phone] [id number] SEA HODGE Self - patient is the insured
--- OUTSIDE RECORDS SUMMARY | 2024-03-10 08:51 | XMS_ITS ---
Author Name Unknown Organization [facility] Address [address] [place] [address] Care Team Providers Care Emergency Care Tech Name Role Phone Aryan Taylor [phone] Encounters Encounter Location Date Provider Diagnosis [facility] [address] [facility] [address] [place] [address] 02/27/2024 Aryan Taylor Plan Of Treatment Next Appt Details Provider Name:Sameera Monzon, 03/16/2024 11:30:00 AM, [address], [place], [address], Progress Notes * SEA HODGEDOB:1955 (68 yo M)Acc No.[id number]:02/27/2024 Patient:?SHAYLEE HODGEHugo BRIDGES :1955???Age:68 Y???Sex:Male Address: [address], [place], [address] * true * Date:? Generated for Halie flowers/Fiordaliza/eTransmitting on:?03/10/2024 08:50 AM CDT
--- OUTSIDE RECORDS SUMMARY | 2024-03-24 10:40 | XMS_ITS ---
Author Name Unknown Organization [facility] Address [address] [place] [address] Care Team Providers Care Manager Copy Name Role Phone Sameera Patel Unavailable [phone] REASON FOR VISIT 3m f/u With BMP and bone density test, for possible Prolia., Encounters Encounter Location Date Provider Diagnosis [facility] [address] [facility] [address] [place] [address] 03/16/2024 Sameera Patel Plan Of Treatment Next Appt Details Provider Name:Sameera Monzon, 04/06/2024 01:00:00 PM, [address] [facility] [address], [place], [address], Progress Notes * SEA HDOGEDOB:1955 (68 yo M)Acc No.[id number]:03/16/2024 Progress Notes Patient:?SEA HODGE Provider:?PATO Odom :1955???Age:68 Y???Sex:Male Manpreet e:03/16/2024 Address:[facility] [address], [place] Subjective: * Chief Complaints: * ???1. 3m f/u With BMP and haylee ne density test, for possible Prolia.,. * Medical History:? Objective: * Vitals:? Assessment: Plan: * Treatment: * Billing Information: * Visit Code:? * Procedure Codes:? * Electronic signature of PATO Saldana on 03/24/2024 at 10:40 AM CDT Sign off status: Pending * Provider:?PATO Odom Date:?03/16/2024 Generated for Halie flowers/Fiordaliza/Quinn on:?03/24/2024 10:40 AM CDT
--- OUTSIDE RECORDS SUMMARY | 2024-03-24 10:41 | XMS_ITS ---
Author Name Unknown Organization [facility] Address [address] [place] [address] Care Team Providers Care Home Service Advisor Name Role Phone Aryan Taylor Unavailable [phone] Encounters Encounter Location Date Provider Diagnosis [facility] [address] [place] [address] 03/16/2024 Aryan Taylor Plan Of Treatment Next Appt Details Provider Name:Sameera Monzon, 04/06/2024 01:00:00 PM, [address], [place], [address], Progress Notes * HODGE SEA BRIDGESDOB:1955 (68 yo M)Acc No.[id number]:03/16/2024 Patient:?SEA HODGEUR :1955???Age:68 Y???Sex:Male Address:[facility] [address], [place], [address] Subjective: * Chief Complaints: * ??? * Medical History:? * Surgical History:? * Hospitalization/Major Diagno stic Procedure:? * Medications:? Objective: * Vitals:? * Physical Examination:? Assessment: Plan: * Treatment: * Procedure Codes:? * true * Date:? Generated for Halie flowers/Fiordaliza/eTomarsmtato on:?03/24/2024 10:40 AM CDT
--- OUTSIDE RECORDS SUMMARY | 2024-03-24 10:41 | XMS_ITS | Patient Health Record ---
Author Name Unknown Organization [facility] Address [address] [place] [address] Care Team Providers Care News Producer Name Role Phone Migration, Provider Unavailable Unavailable Aryan Taylor Unavailable [phone] Sameera Patel Unavailable [phone] Reason For Referral Reason Bladder Neck Obstruc tion Referring Provider First Name Chamois Angel ff Referring Provider Last Name MT Referring Provider [facility] Referred Organization [facility] Referred Provider Aryan Taylor Referred Address [address],[place], [place],[address], Referred Provider Specialty Urology Referral Priority Routine Medications Medication SIG (Take, Route, Frequency, Duration) Notes Start Date End Date Status albuterol 0.833 MG/ML / ipratropium bromide 0.167 MG/ML Inhalation Solution INTRAPULMONARY *Reorder from [facility] for eRx and Interaction Alerts* 01/30/2023 Active Docusate Sodium 100 MG Oral Tablet ORAL *Reorder from [facility] for eRx and Interaction Alerts* 01/30/2023 Active apixaban 5 MG Oral Tablet [Eliquis] ORAL *Reorder from [facility] for eRx and Interaction Alerts* 01/30/2023 Active Furosemide 40 MG Oral Tablet ORAL *Reorder from [facility] for eRx and Interaction Alerts* 01/30/2023 Active aspirin 325 MG Delayed Release Oral Tablet ORAL *Reorder from [facility] for eRx and Interaction Alerts* 01/30/2023 Active LORazepam 1 MG Oral Tablet ORAL *Reorder from [facility] for eRx and Interaction Alerts* 01/30/2023 Active Atorvastatin Calcium 10 MG Oral 01/30/2023 Active Loratadine 10 MG Oral Tablet ORAL *Reorder from [facility] for eRx and Interaction Alerts* 01/30/2023 Active Nitroglycerin 0.4 MG Sublingual 01/30/2023 Active Metoprolol Tartrate 75 MG Oral Tablet ORAL *Reorder from [facility] for eRx and Interaction Alerts* 01/30/2023 Active Omeprazole Magnesium 20 MG Oral 01/30/2023 Active Abiraterone Acetate 250 MG Oral Tablet ORAL *Reorder from [facility] for eRx and Interaction Alerts* 01/30/2023 Active Tamsulosin HCl 0.4 MG Oral 09/24/2023 5 Active 2 ML digoxin 0.25 MG/ML Injection *Reorder from [facility] for eRx and Interaction Alerts* 01/30/2023 Active Calcium Citrate 1500 MG / Cholecalciferol 200 UNT Oral Tablet ORAL *Reorder from [facility] for eRx and Interaction Alerts* 09/24/2023 7 Active 60 ACTUAT olodaterol 0.0025 MG/ACTUAT Inhalation Nevis [Striverdi] INTRAPULMONARY *Reorder from [facility] for eRx and Interaction Alerts* 01/30/2023 Active Calcium Carbonate 1250 MG / Cholecalciferol 200 UNT Oral Tablet ORAL *Reorder from [facility] for eRx and Interaction Alerts* 10/03/2023 5 Active 60 ACTUAT tiotropium 0.0025 MG/ACTUAT Inhalation Nevis [Spiriva] INTRAPULMONARY *Reorder from [facility] for eRx and Interaction Alerts* 01/30/2023 Active Potassium Chloride 20 MEQ Powder for Oral Solution ORAL *Reorder from [facility] for eRx and Interaction Alerts* 01/30/2023 Active albuterol 0.417 MG/ML Inhalation Solution INTRAPULMONARY *Reorder from [facility] for eRx and Interaction Alerts* 01/30/2023 Active predniSONE 5 MG Oral Tablet ORAL *Reorder from [facility] for eRx and Interaction Alerts* 01/30/2023 Active Problems Problem Type SNOMED Code ICD Code Onset Dates Problem Status W/U Status Risk Notes Problem [id number] Personal history of malignant neoplasm of prostate (Z85.46) Active confirmed Vital Signs Heart Rate 78 /min 09/24/2023 [...] Migration Migrated_Facility 0 0 11/24/2023 Provider Migration [facility] [address] [place] [address] 02/26/2024 [facility] [address] [place] [address] [address] [place] [address] 02/27/2024 [facility] [address] [place] [address] 02/27/2024 [facility] [address] [place] [address] [address] [place] [address] 03/12/2024 [facility] [address] [place] [address] 03/16/2024 [facility] [address] [place] [address] 03/16/2024 [facility] Personal history of malignant neoplasm of prostate 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.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) use of other agents affecting estrogen receptors and estrogen levels Z79.818 Assessments Encounter Date Diagnosis (ICD Code) Assessment Notes Treatment Notes Treatment Clinical Notes 03/16/2024 Personal history of malignant neoplasm of prostate (ICD-10 - Z85.46) 03/16/2024 group home (current) use of other agents affecting estrogen receptors and estrogen levels (ICD-10 - Z79.818) Plan Of Treatment Pending Test Test Name Order Date Basic Metabolic Panel (BMP) 21634 2023 Bone Densitometry-30653 03/16/2024 Next Appt Details Provider Name:Sameera Monzon, 04/06/2024 01:00:00 PM, [address], [place], [address], Insurance Providers Payer Name Payer Address Payer Phone Subscriber Number Group Number Insured Name Patient Relationship to Insured Coverage Start Date Coverage End Date [employer] [address] [place] [address] [id number] SEA HODGE Self - patient is the insured
--- OUTSIDE RECORDS SUMMARY | 2024-03-24 10:41 | XMS_ITS ---
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) use of other agents affecting estrogen receptors and estrogen levels Z79.818 Assessments Encounter Date Diagnosis (ICD Code) Assessment Notes Treatment Notes Treatment Clinical Notes 03/16/2024 Personal history of malignant neoplasm of prostate (ICD-10 - Z85.46) 03/16/2024 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 * Medical History:? * Surgical History:? * Hospitalization/Major Diagno stic Procedure:? * Medications:? Objective: * Vitals:? * Physical Examination:? Assessment: * Assessment: 1.?Personal history of maldamion nant neoplasm of prostate - Z85.46???2.?senior care (current) use of other agents affecting estrogen receptors and estrogen levels - Z79.818??? Plan: * Treatment: 2.?senior care (current) use o f other agents affecting estrogen receptors and estrogen levels?LAB: Basic Metabolic Panel (BMP) 80512 ?Imaging: Bone Densitometry-99647 * Procedure Codes:? * true * Date:? Generated for Halie flowers/Fiordaliza/Shaguftaitting on:?03/24/2024 10:40 AM CDT
--- NOTE | 2024-03-24 10:51 | W.PM.OPSUD ---
Surgery/Procedure H&P Update DATE OF PROCEDURE: March 24, 2024 DATE H&P PERFORMED: 03/04/24 H&P UPDATE INFORMATION: I have reviewed H&P completed within last 30 days, I have examined patient prior to procedure, No changes to prior documentation and H&P is in [facility] EMR on date indicated PLANNED PROCEDURE: Operation Date: 03/24/24 11:40 Proposed Procedures p Colonoscopy - 24219, Z12.11, G0105(Not Applicable) - Kenneth Roberts MD
[2024-03-24 11:02] VITALS: BP 167/97; PULSE 85; RESP 16; TEMP 36.1; O2SAT 96; BMI 30.2
[2024-03-24] MEDS: sodium chloride 0.9% 1,000 ML 30 ML IV (11:21)
--- NOTE | 2024-03-24 12:18 | ANES.PREANE2 ---
Pre-Anesthetic Assessment Height/Weight: Height 1.75 m Weight 92.986 kg Temp Pulse Resp BP Pulse Ox O2 Del Method 97.0 F L 85 16 167/97 96 Room Air 03/24/24 11:02 03/24/24 11:02 03/24/24 11:02 03/24/24 11:02 03/24/24 11:02 03/24/24 11:02 Operation Date: 03/24/24 11:40 Proposed Procedures p Colonoscopy - 32477, Z12.11, G0105(Not Applicable) - Kenneth Roberts MD Familial anesthetic complications: none Was Beta Kulwant taken within 24 hours: Yes Was Clonidine taken within 24 hours: N/A Last intake: Intake Last Liquid Date 03/23/24 Last Liquid Time 17:00 Last Solid Date 03/23/24 Last Solid Time 10:30 Social Tobacco and No alcohol Exam alert, oriented x 3, clear to auscultation bilaterally and regular rate & rhythm Airway Mallampati: Class III Dentition: other (no teeth) Pulmonary Chronic Obstructive Pulmonary Disease CV/HEM Atrial Fibrillation, Coronary Artery Disease (cabg) and Hypertension Anesthetic Plan ASA status: 4 Anesthesia: MAC Risk of > 500 ml blood loss (7ml/kg in children): No Medications/Allergies Home Medications Medication Instructions Recorded Confirmed Last Taken Type apixaban 5 mg tablet (Eliquis) 5 mg PO BID #60 tabs 10/16/19 03/24/24 03/19/24 Rx metoprolol tartrate 50 mg tablet 75 mg (1.5 x 50 mg) PO BID #90 tabs 01/22/20 03/24/24 03/24/24 Rx omeprazole 20 mg capsule,delayed 40 mg PO QAM 10/04/20 03/24/24 03/24/24 History release furosemide 40 mg tablet (Lasix) 40 mg PO QAM 03/28/21 03/24/24 03/23/24 History potassium chloride 20 mEq 10 meq PO QAM 03/28/21 03/24/24 03/23/24 History tablet,extended release aspirin 325 mg tablet 325 mg PO QAM 01/10/22 03/24/24 03/19/24 History albuterol sulfate 90 mcg/actuation 2 inh inhalation Q4H PRN shortness 07/27/22 03/24/24 03/23/24 Rx aerosol inhaler of breath or wheezing #18 grams tamsulosin 0.4 mg capsule (Flomax) 0.4 mg PO BID 02/25/23 03/24/24 03/24/24 History loratadine 10 mg tablet 10 mg PO QAM 05/15/23 03/24/24 03/23/24 History digoxin 250 mcg (0.25 mg) tablet 250 mcg PO QAM 08/04/23 03/24/24 03/23/24 History nitroglycerin 0.4 mg sublingual 0.4 mg sublingual Q5M PRN Chest 08/04/23 03/24/24 03/15/24 History tablet (Nitrostat) Pain prednisone 5 mg tablet 5 mg PO QAM 08/04/23 03/24/24 03/24/24 History Allergies Allergy/AdvReac Type Severity Reaction Status Date / Time No Known Allergies Allergy Verified 03/19/24 12:28 Current Medications Generic Name Dose Route Start Last Admin Trade Name Freq PRN Reason Stop Dose Admin Sodium Chloride 1,000 mls @ 30 mls/hr 03/24/24 10:45 03/24/24 11:21 Sodium Chloride 0.9% IV 30 mls/hr .Q24H JUAN DAVID Administration PFSH Anesthesia Medical History Greater trochanteric bursitis of right hip Prostate cancer History of colon polyps Chronic anticoagulation eliquis, for afib Chronic respiratory failure with hypoxia Heart failure with preserved ejection fraction Coronary artery disease CHF (congestive heart failure) Last echocardiogram normal EF, grade 2/4 diastolic dysfunction October 2019 Hypertension Anemia Atrial fibrillation GERD (gastroesophageal reflux disease) Hypothyroidism Hyperlipidemia COPD (chronic obstructive pulmonary disease) Surgical History History of cataract surgery Left eye - 12/2022 H/O prostate biopsy S/P appendectomy S/P cholecystectomy History of colonoscopy (~04/2020) History of vasectomy History of knee surgery History of coronary artery bypass graft (03/2019) [address] [place] [address] Family History Father , IN HIS 50'S Lung disease tuberculosis Mother , AT AGE 63 CAD (coronary artery disease) Diabetes Hypertension Sister Cancer Denies family history of Clotting disorder Dementia Hyperlipidemia Psychiatric illness Chronic kidney disease (CKD) Suicide Anesthesia complication Bleeding disorder Stroke Social History Smoking and tobacco/nicotine status: former use of tobacco/nicotine Quit status (tobacco/nicotine): has quit using Year quit tobacco: 2016 PPD x 52 Years Alcohol intake: never Substance/Drug Use: never Lives independently: Yes Household members: none Marital status: Legally Current occupational status: employed and retired Do you think of yourself as: Straight/Heterosexual Current gender identity: Male Data Anesthesia Cardiac Studies: Echocardiogram 06/18/23 Echocardiogram Ultrasound 10/16/19 Sestamibi Stress Test (Cardiology) 06/19/23
[2024-03-24 13:01] VITALS: BP 102/50; PULSE 86; RESP 18; TEMP 36.9; O2SAT 93
--- NOTE | 2024-03-24 13:10 | PC.NURSE ---
nasal trumpet removed without difficulty. pt has bleeding noted from right nostril and moderate amount of phlegm from left nostril.
[2024-03-24 13:12] VITALS: BP 101/57; PULSE 90; RESP 18; O2SAT 95
[2024-03-24 13:26] VITALS: BP 124/72; PULSE 87; RESP 18; O2SAT 96
--- NOTE | 2024-03-24 13:27 | PC.NURSE ---
pt cont to have bloody nose. keeps blowing nose and having large amounts of secretions with moderate amount of bloody secretions out.
--- NOTE | 2024-03-24 13:38 | PC.NURSE ---
bleeding has stopped from right nasal. pt not coughing as much either. anesthesia to see pt.
--- NOTE | 2024-03-24 13:44 | PC.NURSE ---
1440. Dr Espinal into see pt. instructed pt if he had no more bleeding from nostril he would be able to go home in about 15 minutes.
--- NOTE | 2024-03-24 14:00 | PC.NURSE ---
Dr. Espinal notified of no more nasal bleeding. OK for pt to go home. instructed pt to return to the ER if he has any further bleeding.
--- NOTE | 2024-03-24 14:01 | PC.NURSE ---
Pt was instructed to restart Eliquis on .
--- NOTE | 2024-03-24 14:10 | ANE.PACU2 ---
Inpatient post-anesthesia follow up: Airway intact: Yes Vital signs: Temperature 98.5 F Pulse Rate 87 Respiratory Rate 18 Blood Pressure 124/72 Pulse Oximetry 96 Oxygen Delivery Me thod Room Air Oxygen Flow Rate Fraction of Inspir ed Oxygen Hydration adequate: Yes Nausea and vomiting: No Pain level: 1 Mental status: Baseline Additional Comments: No continued bleeding from nose after 10 to 15 minutes
== END 2024-03-24 14:00 | disposition home or self-care (01) ==
PROVIDERS: PCP Nurse Practitioner; Visit Provider Surgery
PROC: 0DJD8ZZ Inspection of Lower Intestinal Tract, Via Natural or Artificial Opening Endoscopic (ICD-10-PCS; CPT 45378; principal; 2024-03-24 11:40)
DX: Z12.11 Encounter for screening for malignant neoplasm of colon (principal); Z86.0100 Personal history of colon polyps, unspecified; D12.0 Benign neoplasm of cecum; J44.9 Chronic obstructive pulmonary disease, unspecified; I48.91 Unspecified atrial fibrillation; I25.10 Atherosclerotic heart disease of native coronary artery without angina pectoris; Z95.1 Presence of aortocoronary bypass graft; Z85.46 Personal history of malignant neoplasm of prostate; I11.0 Hypertensive heart disease with heart failure; I50.30 Unspecified diastolic (congestive) heart failure; K21.9 Gastro-esophageal reflux disease without esophagitis; E03.9 Hypothyroidism, unspecified; E78.5 Hyperlipidemia, unspecified; Z87.891 Personal history of nicotine dependence
CPT/HCPCS: 45378; J2704; J7030

== ENCOUNTER 2024-03-25 11:33 | Oncology outpatient (recurring) (ONCR) | payer OTHER, SELFPAY ==
[2024-03-25 12:21] LABS: Basophils % 0.8 %; Eosinophils # 0.1 10^3/uL (0.0-0.8); Eosinophils % 1.3 %; Hematocrit 38.3 % (37-53); Lymphocytes # 0.7 10^3/uL (0.8-4.8); Lymphocytes % 18.4 %; Mean Corpuscular HGB Conc 31.9 g/dL (30-55); Mean Corpuscular Hemoglobin 29.4 pg (27-33); Mean Corpuscular Volume 92.3 fl (82-101); Mean Platelet Volume 9.2 fL (7.4-10.4); Monocytes # 0.3 10^3/uL (0.2-0.9); Neutrophils # 2.66 10^3/uL (1.8-7.7); Nucleated Red Blood Cells % 0 %; Platelet Count 157 10^3/cmm (157-399); Red Blood Count 4.15 10^6/uL (3.85-5.65); Red Cell Distribution Width 13.9 % (12.1-15.1); White Blood Count 3.75 10^3/uL (3.29-11.43)
[2024-03-25 12:41] LABS: Albumin Level 3.9 g/dL (3.5-5.2); Alkaline Phosphatase 93 U/L (40-130); Anion Gap 15.1 (5-19); Aspartate Amino Transferase 22 U/L (0-40); Blood Urea Nitrogen 19 mg/dL (8-23); Calcium 8.3 mg/dL (8.5-10.5); Carbon Dioxide 26 mmol/L (22-29); Chloride 106 mmol/L (98-107); Creatinine Clr Calc Pharmacy 89.8163; Globulin 2.5 g/dL (1.3-4.6); Glomerular Filtration Rate 83.7 mL/min (90-130); Glucose 153 mg/dL (65-115); Osmolality Calculated 301 mOsm/kg (285-295); Potassium 4.1 mmol/L (3.5-5.1); Sodium 143 mmol/L (136-145); Total Bilirubin 0.3 mg/dL (0.15-1.2); Total Protein 6.4 g/dL (6.6-8.7)
[2024-03-25 12:53] LABS: Alanine Aminotransferase 39 U/L (0-41)
[2024-03-25 15:24] LABS: Prostate Specific Antigen < 0.014 ng/mL (0-4); Testosterone Total 2.5 ng/dL (193-740)
== END 2024-04-02 23:59 | disposition home or self-care (01) ==
PROVIDERS: Nurse Practitioner Family; PCP Nurse Practitioner; Visit Provider Internal Medicine Medical Oncology
DX: C61 Malignant neoplasm of prostate (principal); Z79.818 Long term (current) use of other agents affecting estrogen receptors and estrogen levels; Z95.828 Presence of other vascular implants and grafts
CPT/HCPCS: 36415; 80053; 84153; 84403; 85025; 99214

== ENCOUNTER → 2024-04-07 12:56 | Outpatient (BNVA) | payer OTHER, SELFPAY | PROVIDERS: PCP Nurse Practitioner; Visit Provider Surgery | DX: Z09 Encounter for follow-up examination after completed treatment for conditions other than malignant neoplasm (principal) | CPT/HCPCS: 99214; G0463 ==

== ENCOUNTER → 2024-04-08 13:24 | Outpatient (BNVA) | payer OTHER, SELFPAY | PROVIDERS: PCP Nurse Practitioner; Visit Provider Nurse Practitioner | DX: M25.552 Pain in left hip (principal); M70.62 Trochanteric bursitis, left hip; M54.50 Low back pain, unspecified; M79.606 Pain in leg, unspecified | CPT/HCPCS: 73502; 99214 ==

== ENCOUNTER → 2024-04-15 10:45 | Outpatient (BNVA) | payer OTHER, SELFPAY | PROVIDERS: PCP Nurse Practitioner; Visit Provider Nurse Practitioner | DX: M25.562 Pain in left knee (principal); M17.12 Unilateral primary osteoarthritis, left knee | CPT/HCPCS: 36415; 73560; 73565; 80053; 81001; 85025; 99214 ==

== ENCOUNTER 2024-04-17 08:10 | Outpatient (CLI) | payer OTHER, SELFPAY ==
--- NOTE | 2024-04-17 08:29 | PETR_ITS ---
PROCEDURE INFORMATION: Exam: PET/CT Skull Base to Mid-thigh Exam date and time: 04/17/2024 10:04 AM Age: 68 years old Clinical indication: Solitary pulmonary nodule; Abnormal lung cancer screening CT scan; Patient HX: History of prostate cancer per patient LABS AND CLINICAL REPORTS: Glucose: 128 mg/dl Treatment strategy for malignancy (PET staging): Initial Staging (PI) TECHNIQUE: Imaging protocol: Following at least four-hour fasting and following the injection of radiopharmaceutical, low dose CT images were obtained. Then, PET images were obtained. Attenuation corrected images were constructed using the CT scan. Fused images of PET and CT were reviewed. The standardized uptake values (SUV) reported below are maximum values within a region of interest, expressed in gm/ml. Exam includes orbital meatal line to mid-thigh. Radiopharmaceutical: 10.04 mCi F-18 FDG (Fluorodeoxyglucose), IV. Time of imaging post radiopharmaceutical administration: 1 hour Injection site: right ac COMPARISON: No relevant exams for comparison. FINDINGS: Brain: Normal physiologic uptake. Pharynx: No abnormal uptake. Larynx: No abnormal uptake. Lungs, pleura and trachea: About 4.7 x 1.3 cm elongated peripheral opacity in the right middle lobe (series 202 image 228) measures 3.1 SUV. A cluster of peribronchial opacities with maximal thickness of 1.3 cm in the right lower lobe on the same axial image 228 is not FDG avid with low-grade uptake of 2.2 SUV. There is severe centrilobular emphysema and some paraseptal emphysema in the upper lobes on the right more than on the left side. Thin irregular shaped opacity in the right apex between the large bullas on series 202, image 278 shows borderline uptake of 2.5 SUV. Peripheral reticular opacities with honeycombing in dependent areas of bilateral lower lobes more prominent on the left side are suggestive of fibrosis with mildly increased uptake on the left side up to 3.2 SUV. No pleural effusion Heart: Unremarkable. Status post CABG surgery.There is no cardiomegaly. There is no pericardial effusion. Mediastinal space: No abnormal uptake. Moderate size hiatal hernia. Liver: No abnormal uptake. Maximum uptake is 4.3 SUV. Severe fatty liver (20 Hounsfield units). Gallbladder and biliary ducts: No abnormal uptake. Status post cholecystectomy. Pancreas: No abnormal uptake. Spleen: No abnormal uptake. Mild splenomegaly (15.5 cm). Adrenal glands: No abnormal uptake. No nodules. Kidneys and ureters: Normal physiologic uptake. No hydronephrosis. 2.4 cm simple cyst exophytic laterally from the lower pole of the right kidney. Stomach and bowel: No abnormal uptake. Vasculature: No abnormal uptake. Lymph nodes: No FDG avid lymphadenopathy in the neck, chest, abdomen, pelvis, and extremities. Skeleton: No abnormal uptake in the visualized axial and appendicular skeleton. Status post sternotomy. Soft tissues: No abnormal uptake in the visualized head, neck, chest, abdomen, pelvis, and extremities. PET/PET skull to thigh INIT 65921 IMPRESSION: Mildly increased uptake of 3.1 SUV within 4.7 x 1.3 cm elongated peripheral opacity in the right middle lobe with malignancy not excluded. No FDG avid lymph nodes in the chest, no evidence of distant FDG avid metastatic disease. Borderline uptake of 2.5 SUV of within thin irregular opacity in the right apex dividing between large emphysematous bulla is indeterminate, can be malignant or benign. Increased uptake of 3.2 SUV within linear shaped dependent reticular opacity with honeycombing in the left lower lobe is morphologically suggestive of benign inflammatory finding.
== END 2024-04-17 08:11 | disposition home or self-care (01) ==
PROVIDERS: PCP Nurse Practitioner; Visit Provider Nurse Practitioner Family
DX: R91.1 Solitary pulmonary nodule (principal); J43.2 Centrilobular emphysema; Z95.1 Presence of aortocoronary bypass graft; K44.9 Diaphragmatic hernia without obstruction or gangrene
CPT/HCPCS: 78815; A9552

== ENCOUNTER 2024-04-27 09:49 | Oncology outpatient (recurring) (ONCR) | payer OTHER, SELFPAY ==
--- OUTSIDE RECORDS SUMMARY | 2024-04-27 09:52 | XMS_ITS ---
Author Name Unknown Organization [facility] Address [address] [place] [address] Care Team Providers Care Reclamation Supervisor Name Role Phone Sameera Patel Unavailable REASON FOR VISIT 3m f/u With BMP and bone density test, for possible Prolia., Encounters Encounter Location Date Provider Diagnosis [facility] [address] [facility] [address] [place] [address] 04/06/2024 Sameera Patel Plan Of Treatment Next Appt Details Provider Name:Sameera Monzon, 05/20/2024 02:10:00 PM, [address] , [facility] [address], [place], [address], Progress Notes * SEA HODGEDOB:1955 (68 yo M)Acc No.[id number]:04/06/2024 Progress Notes Patient:?SEA HODGE Provider:?PATO Odom :1955???Age:68 Y???Sex:Male Manpreet e:04/06/2024 Address:[facility] [address], [id number] Subjective: * Chief Complaints: * ???1. 3m f/u With BMP and haylee ne density test, for possible Prolia.,. * Medical History:? Objective: * Vitals:? Assessment: Plan: * Treatment: * Billing Information: * Visit Code:? * Procedure Codes:? * Electronic signature of PATO Saldana on 04/27/2024 at 09:51 AM BOMB SQUAD COMMANDER Sign off status: Pending * Provider:?PATO Odom Date:?04/06/2024 Generated for Halie flowers/Fiordaliza/Quinn on:?04/27/2024 09:51 AM BOMB SQUAD COMMANDER
--- OUTSIDE RECORDS SUMMARY | 2024-04-27 09:52 | XMS_ITS ---
Author Name Unknown Organization [facility] Address [address] [place] [address] Care Team Providers Care Outsole Cementer Name Role Phone Aryan Taylor [phone] Encounters Encounter Location Date Provider Diagnosis [facility] [address] [facility] [address] [place] [address] 03/16/2024 Aryan Taylor Personal history of malignant neoplasm of prostate Z85.46 and emt 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 (current) use of other agents affecting estrogen receptors and estrogen levels Z79.818 Assessments Encounter Date Diagnosis (ICD Code) Assessment Notes Treatment Notes Treatment Clinical Notes 03/16/2024 Personal history of malignant neoplasm of prostate (ICD-10 - Z85.46) 03/16/2024 emt 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 (current) use of other agents affecting estrogen receptors and estrogen levels (ICD-10 - Z79.818) Plan Of Treatment Pending Test Test Name Order Date Basic Metabolic Panel (BMP) 88401 2023 Bone Densitometry-65733 03/16/2024 Next Appt Details Provider Name:Sameera Monzon, 05/20/2024 02:10:00 PM, [address] , [facility] [address], [place], [address], Progress Notes * SEA HODGEDOB:1955 (68 yo M)Acc No.[id number]:03/16/2024 Patient:?SEA HODGE :1955???Age:68 Y???Sex:Male Address:[address], [place], [address] Subjective: * Chief Complaints: * ??? * Medical History:? * Surgical History:? * Hospitalization/Major Diagno stic Procedure:? * Medications:? Objective: * Vitals:? * Physical Examination:? Assessment: * Assessment: 1.?Personal history of malig nant neoplasm of prostate - Z85.46???2.?long-term (current) use of other agents affecting estrogen receptors and estrogen levels - Z79.818??? Plan: * Treatment: 2.?long-term (current) use o f other agents affecting estrogen receptors and estrogen levels?LAB: Basic Metabolic Panel (BMP) 15052 ?Imaging: Bone Densitometry-98585 * Procedure Codes:? * true * Date:? Generated for Halie flowers/Fiordaliza/Shaguftaitting on:?04/27/2024 09:52 AM PHOTOGRAPHIC EDITOR
--- OUTSIDE RECORDS SUMMARY | 2024-04-27 09:52 | XMS_ITS | Patient Health Record ---
Author Name Unknown Organization [facility] Address [address] [place] [address] Care Team Providers Care Tire Fabric Inspector Name Role Phone Migration, Provider Unavailable Unavailable Aryan Taylor Unavailable [phone] Sameera Patel Unavailable [phone] Reason For Referral Reason Bladder Neck Obstruc tion Referring Provider First Name [place] Angel ff Referring Provider Last Name [place] Referring Provider [facility] Referred Organization [facility] Referred Provider Aryan Taylor Referred Address [address],[place], [place],[address], Referred Provider Specialty Urology Referral Priority Routine Medications Medication SIG (Take, Route, Frequency, Duration) Notes Start Date End Date Status albuterol 0.833 MG/ML / ipratropium bromide 0.167 MG/ML Inhalation Solution INTRAPULMONARY *Reorder from [facility] for eRx and Interaction Alerts* 01/30/2023 Active Docusate Sodium 100 MG Oral Tablet ORAL *Reorder from [facility] for eRx and Interaction Alerts* 01/30/2023 Active apixaban 5 MG Oral Tablet [Eliquis] ORAL *Reorder from [facility] for eRx and Interaction Alerts* 01/30/2023 Active Furosemide 40 MG Oral Tablet ORAL *Reorder from [facility] for eRx and Interaction Alerts* 01/30/2023 Active aspirin 325 MG Delayed Release Oral Tablet ORAL *Reorder from [facility] for eRx and Interaction Alerts* 01/30/2023 Active LORazepam 1 MG Oral Tablet ORAL *Reorder from [facility] for eRx and Interaction Alerts* 01/30/2023 Active Atorvastatin Calcium 10 MG Oral 01/30/2023 Active Loratadine 10 MG Oral Tablet ORAL *Reorder from [facility] for eRx and Interaction Alerts* 01/30/2023 Active Nitroglycerin 0.4 MG Sublingual 01/30/2023 Active Metoprolol Tartrate 75 MG Oral Tablet ORAL *Reorder from [facility] for eRx and Interaction Alerts* 01/30/2023 Active Omeprazole Magnesium 20 MG Oral 01/30/2023 Active Abiraterone Acetate 250 MG Oral Tablet ORAL *Reorder from [facility] for eRx and Interaction Alerts* 01/30/2023 Active Tamsulosin HCl 0.4 MG Oral 09/24/2023 5 Active 2 ML digoxin 0.25 MG/ML Injection *Reorder from [facility] for eRx and Interaction Alerts* 01/30/2023 Active Calcium Citrate 1500 MG / Cholecalciferol 200 UNT Oral Tablet ORAL *Reorder from [facility] for eRx and Interaction Alerts* 09/24/2023 7 Active 60 ACTUAT olodaterol 0.0025 MG/ACTUAT Inhalation Mazon [Striverdi] INTRAPULMONARY *Reorder from [facility] for eRx and Interaction Alerts* 01/30/2023 Active Calcium Carbonate 1250 MG / Cholecalciferol 200 UNT Oral Tablet ORAL *Reorder from [facility] for eRx and Interaction Alerts* 10/03/2023 5 Active 60 ACTUAT tiotropium 0.0025 MG/ACTUAT Inhalation Mazon [Spiriva] INTRAPULMONARY *Reorder from [facility] for eRx and Interaction Alerts* 01/30/2023 Active Potassium Chloride 20 MEQ Powder for Oral Solution ORAL *Reorder from [facility] for eRx and Interaction Alerts* 01/30/2023 Active albuterol 0.417 MG/ML Inhalation Solution INTRAPULMONARY *Reorder from [facility] for eRx and Interaction Alerts* 01/30/2023 Active predniSONE 5 MG Oral Tablet ORAL *Reorder from [facility] for eRx and Interaction Alerts* 01/30/2023 Active Problems Problem Type SNOMED Code ICD Code Onset Dates Problem Status W/U Status Risk Notes Problem 631089973 Personal history of malignant neoplasm of prostate [...] Location Date Provider Diagnosis Migrated_Facility 0 0 11/23/2023 Provider Migration Migrated_Facility 0 0 11/24/2023 Provider Migration [facility] [address] [place] [address] [address] [place] [address] 02/26/2024 [facility] [address] [place] [address] [address] [place] [address] 02/27/2024 [facility] [address] [place] [address] [address] [place] [address] 02/27/2024 [facility] [address] [place] [address] [address] [place] [address] 03/12/2024 [facility] [address] [place] [address] [address] [place] [address] 03/16/2024 [facility] [address] [place] [address] [address] [place] [address] 03/16/2024 Aryan Elmira Personal history of malignant neoplasm of prostate Z85.46 and halfway (current) use of other agents affecting estrogen receptors and estrogen levels Z79.818 Migrated_Facility 0 0 07/02/2023 Provider Migration Migrated_Facility 0 0 09/24/2023 Provider Migration Assessments Encounter Date Diagnosis (ICD Code) Assessment Notes Treatment Notes Treatment Clinical Notes 03/16/2024 Personal history of malignant neoplasm of prostate (ICD-10 - Z85.46) 03/16/2024 emt 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 (current) use of other agents affecting estrogen receptors and estrogen levels (ICD-10 - Z79.818) Plan Of Treatment Pending Test Test Name Order Date Basic Metabolic Panel (BMP) 76521 2023 Bone Densitometry-52395 03/16/2024 Next Appt Details Provider Name:Sameera Monzon, 05/20/2024 02:10:00 PM, [address], [place], [address], Insurance Providers Payer Name Payer Address Payer Phone Subscriber Number Group Number Insured Name Patient Relationship to Insured Coverage Start Date Coverage End Date [employer] [address] [place] [address] [id number] SEA HODGE Self - patient is the insured
--- OUTSIDE RECORDS SUMMARY | 2024-04-27 09:52 | XMS_ITS ---
Author Name Unknown Organization [facility] Address [address] [place] [address] Care Team Providers Care Retrieval Specialist Name Role Phone Sameera Patel Unavailable [phone] REASON FOR VISIT 3m f/u With BMP and bone density test, for possible Prolia., Encounters Encounter Location Date Provider Diagnosis [facility] [address] [facility] [address] [place] [address] 03/16/2024 Sameera Patel Plan Of Treatment Next Appt Details Provider Name:Sameera Monzon, 05/20/2024 02:10:00 PM, [address] [facility] [address], [place], [address], Progress Notes * SEA HODGEDOB:1955 (68 yo M)Acc No.[id number]:03/16/2024 Progress Notes Patient:?SEA HODGE Provider:?PATO Odom :1955???Age:68 Y???Sex:Male Manpreet e:03/16/2024 Address:[facility] [address] [id number] Subjective: * Chief Complaints: * ???1. 3m f/u With BMP and haylee ne density test, for possible Prolia.,. * Medical History:? Objective: * Vitals:? Assessment: Plan: * Treatment: * Billing Information: * Visit Code:? * Procedure Codes:? * Electronic signature of PATO Saldana on 04/27/2024 at 09:52 AM DESIGN PRINTING MACHINE SETTER Sign off status: Pending * Provider:?PATO Odom Date:?03/16/2024 Generated for Halie flowers/Fiordaliza/Quinn on:?04/27/2024 09:52 AM DESIGN PRINTING MACHINE SETTER
--- NOTE | 2024-04-27 10:00 | CT_ITS ---
WS: [id number] CT LEFT knee, noncontrast HISTORY: arthritis and pain of left knee TECHNIQUE: Protocol for [facility] total knee replacement has been obtained. This includes axial imaging th rough the LEFT hip, LEFT knee and LEFT ankle. DLP: 1004.70 mGy.cm COMPARISON: 04/15/2024 radiograph Pelvis: No fractures or bone destruction. LEFT hip normally seated in the acetabulum. Extensive vascu lar calcifications noted beginning in the iliac arteries and proximal superficial femoral arteries. LEFT knee: Mild diffuse tricompartment joint space narrowing with marginal osteophytes. No destructiv e bone lesions. Small suprapatellar effusion. Moderate vascular calcifications are noted through the popliteal artery and the proximal tibioperoneal junction. Several small calcific densities are noted along the posterior medial knee at the level of the joint. LEFT ankle: Unremarkable. CT/CT knee LT [facility] [id number] IMPRESSION: CT imaging provided for [facility] robotic total knee replacement.
== END 2024-05-02 23:59 | disposition home or self-care (01) ==
LOC: RAD 09:52 → ONCMED 04-28 10:12
PROVIDERS: PCP Nurse Practitioner; Visit Provider Nurse Practitioner
DX: Z53.9 Procedure and treatment not carried out, unspecified reason (principal); Z51.12 Encounter for antineoplastic immunotherapy; C61 Malignant neoplasm of prostate; Z79.818 Long term (current) use of other agents affecting estrogen receptors and estrogen levels; Z45.2 Encounter for adjustment and management of vascular access device; Z95.828 Presence of other vascular implants and grafts; E61.1 Iron deficiency; Z20.9 Contact with and (suspected) exposure to unspecified communicable disease; W46.0XXA Contact with hypodermic needle, initial encounter; M17.12 Unilateral primary osteoarthritis, left knee; M25.569 Pain in unspecified knee
CPT/HCPCS: 73700

== ENCOUNTER 2024-05-08 09:58 | Emergency (ER) | payer OTHER, MEDICARE, SELFPAY ==
[2024-05-08] VITALS (17 sets, daily range): BP systolic 111–154; BP diastolic 64–88; PULSE 88–143; RESP 15–28; TEMP 36.9; O2SAT 90–98; BMI 30.4
--- NOTE | 2024-05-08 10:10 | XR_ITS ---
WS: [id number] XR chest 1V portable [id number] REASON FOR EXAM: chest pain FINDINGS: Compared to presumably normal baseline study of 06/17/2023, no significant interval changes noted. Previous coronary artery bypass surgery. The heart is at the upper limits of normal in size. Hemidiaphragms are flattened. Chronic interstitial lung opacities in both lower lung rivera. Irregular aeration in the upper lungs with paucity of lung markings indicative of central lobar and bullous emphysema. XR/XR chest 1V portable [id number] IMPRESSION: No acute abnormality identified. Stable chest with chronic abnormalities.
--- NOTE | 2024-05-08 10:10 | ECG_ITS ---
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 Measurements Intervals [place] Rate: 108 P: 0 MO: 0 QRS: 39 QRSD: 153 T: 48 QT: 371 QTc: 497 Interpretive Statements ATRIAL FIBRILLATION WITH RAPID VENTRICULAR RESPONSE RIGHT BUNDLE BRANCH BLOCK [120+ ms QRS DURATION, UPRIGHT V1, 40+ ms S IN I/aVL/V4/V5/V6] Compared to ECG 08/04/2023 10:09:32 Sinus rhythm no longer present Myocardial infarct finding no longer present T-wave abnormality no longer present Possible ischemia no longer present Electronically Signed On 05-08-2024 16:56:43 BAD WORK GATHERER by Mathew Sanchez M.D. [email or web address]
--- NOTE | 2024-05-08 10:34 | ED_ITS ---
HPI - Arrhythmia/Palpitations 2 General: Chief Complaint: Chest Pain Stated Complaint: afib, cp Time Seen by Provider: 05/08/24 10:29 History of Present Illness: 68-year-old male presents emergency room via EMS from the local [place] [facility]. While there he was noted to be in A-fib with RVR. Has not felt very well last couple days and intermittently noticed rapid heart rate has not taken any of his Toprol all for the last 2 days. He has a known history of atrial fibrillation he is on metoprolol and digoxin he is also on Eliquis. Denies any chest pain at this time. Related Data Home Medications Medication Instructions Recorded Confirmed omeprazole 20 mg capsule,delayed 40 mg PO QAM 10/04/20 04/15/24 release furosemide 40 mg tablet (Lasix) 40 mg PO QAM 03/28/21 04/15/24 potassium chloride 20 mEq 10 meq PO QAM 03/28/21 04/15/24 tablet,extended release aspirin 325 mg tablet 325 mg PO QAM 01/10/22 04/15/24 tamsulosin 0.4 mg capsule (Flomax) 0.4 mg PO BID 02/25/23 04/15/24 loratadine 10 mg tablet 10 mg PO QAM 05/15/23 04/15/24 digoxin 250 mcg (0.25 mg) tablet 250 mcg PO QAM 08/04/23 04/15/24 nitroglycerin 0.4 mg sublingual 0.4 mg sublingual Q5M PRN Chest 08/04/23 04/15/24 tablet (Nitrostat) Pain prednisone 5 mg tablet 5 mg PO QAM 08/04/23 04/15/24 Previous Rx's Medication Instructions Recorded apixaban 5 mg tablet (Eliquis) 5 mg PO BID #60 tabs 10/16/19 albuterol sulfate 90 mcg/actuation 2 inh inhalation Q4H PRN shortness 07/27/22 aerosol inhaler of breath or wheezing #18 grams diclofenac sodium 1 % topical gel 4 g topical QID #100 grams 04/10/24 metoprolol tartrate 100 mg tablet 100 mg PO BID #60 tabs 05/08/24 Allergies Allergy/AdvReac Type Severity Reaction Status Date / Time No Known Allergies Allergy Verified 05/08/24 10:36 Review of Systems 2 Const: Denies: fever(s) or chills Card: Denies: chest pain Resp: Denies: dyspnea GI: Denies: abdominal pain : Denies: dysuria, urinary frequency or urinary urgency Musc: Denies: neck pain or back pain Skin/Breast: Denies: rash PFSH ED 2 PFSH: Medical History Greater trochanteric bursitis of right hip Prostate cancer History of colon polyps Chronic anticoagulation eliquis, for afib Chronic respiratory failure with hypoxia Heart failure with preserved ejection fraction Coronary artery disease CHF (congestive heart failure) Last echocardiogram normal EF, grade 2/4 diastolic dysfunction October 2019 Hypertension Anemia Atrial fibrillation GERD (gastroesophageal reflux disease) Hypothyroidism Hyperlipidemia COPD (chronic obstructive pulmonary disease) Surgical History History of cataract surgery Left eye - 12/2022 H/O prostate biopsy S/P appendectomy S/P cholecystectomy History of colonoscopy (~04/2020) History of vasectomy History of knee surgery History of coronary artery bypass graft (03/2019) [address] [place] [address] Family History Father , IN HIS 50'S Lung disease tuberculosis Mother , AT AGE 63 CAD (coronary artery disease) Diabetes Hypertension Sister Cancer Denies family history of Clotting disorder Dementia Hyperlipidemia Psychiatric illness Chronic kidney disease (CKD) Suicide Anesthesia complication Bleeding disorder Stroke Social History Smoking and tobacco/nicotine status: former use of tobacco/nicotine Quit status (tobacco/nicotine): has quit using Year quit tobacco: 2017 - PPD x 52 Years Alcohol intake: never Substance/Drug Use: never Lives independently: Yes Household members: none Marital status: Legally Current occupational status: employed and retired Do you think of yourself as: Straight/Heterosexual Current gender identity: Male Physical Exam 2 Const: COMMON NORMALS: no acute distress GENERAL APPEARANCE: cooperative and comfortable ORIENTATION/CONSCIOUSNESS: Yes awake, Yes oriented to person, Yes oriented to place and Yes oriented to time HENMT: COMMON NORMALS: normocephalic, atraumatic and hearing grossly normal bilaterally HEAD & SCALP: normocephalic and atraumatic Resp: COMMON NORMALS: normal respiratory effort, No retractions, No use of accessory muscles and clear to auscultation bilaterally AUSCULTATION: clear to auscultation bilaterally Cardio: COMMON NORMALS: No murmurs present (Cardio) RATE: tachycardic R HYTHM: abnormal rhythm irregularly irregular GI: COMMON NORMALS: Soft to palpation and No hepatosplenomegaly present A USCULTATION: Yes normoactive bowel sounds PALPATION: Yes Soft to palpation, No Tenderness to palpation present (GI), No Guarding due to palpation present (GI) and Yes No hepatosplenomegaly present Extremity: COMMON NORMALS: normal to inspection, capillary refill normal, no clubbing, cyanosis or edema, no calf tenderness and no pedal edema Neuro: SENSORIUM/ORIENTATION: Yes oriented to person, Yes oriented to place and Yes oriented to time Skin: COMMON NORMALS: no rashes or lesions noted GENERAL SKIN EXAM: no rashes or lesions noted Course 2 Vital Signs: Vital signs: Vital Signs Temperature 98.5 F 05/08/24 10:26 Pulse Rate 93 05/08/24 14:37 Respiratory Rate 21 H 05/08/24 14:15 Blood Pressure 122/65 05/08/24 14:37 Pulse Oximetry 96 05/08/24 14:37 Oxygen Delivery Me thod Room Air 05/08/24 10:26 MDM - Arrhythmia/Palpitations Medical Decision Making Presents in A-fib with RVR. Cardiac enzymes negative blood pressure stable his heart rate improved with IV and p.o. metoprolol. With ambulation remains controlled. Will discharge the patient home on increased dose of metoprolol 100 p.o. twice daily continue digoxin continue his Eliquis follow-up with primary care return if has further problems Medical Records I reviewed the patient's medical records. Lab Data I reviewed the patient's lab results. 05/08/24 11:00 05/08/24 11:00 Radiology Impressions Chest X-Ray 05/08/24 10:10 IMPRESSION: No acute abnormality identified. Stable chest with chronic abnormalities. Laboratory Results WBC 5.38 10^3/uL (3.29-11.43) 05/08/24 11:00 RBC 4.21 10^6/uL (3.85-5.65) 05/08/24 11:00 Hgb 12.20 g/dL (11.27-16.99) 05/08/24 11:00 Hct 38.7 % (37-53) 05/08/24 11:00 MCV 91.9 fl (82-101) 05/08/24 11:00 MCH 29.0 pg (27-33) 05/08/24 11:00 MCHC 31.5 g/dL (30-55) 05/08/24 11:00 RDW 15.1 % (12.1-15.1) 05/08/24 11:00 Plt Count 155 10^3/cmm (157-399) L 05/08/24 11:00 MPV 9.9 fL (7.4-10.4) 05/08/24 11:00 Neut % (Auto) 74.4 % 05/08/24 11:00 Lymph % (Auto) 11.9 % 05/08/24 11:00 [place] % (Auto) 12.1 % 05/08/24 11:00 Eos % (Auto) 0.6 % 05/08/24 11:00 Baso % (Auto) 0.4 % 05/08/24 11:00 Neut # (Auto) 4.01 10^3/uL (1.8-7.7) 05/08/24 11:00 Lymph # (Auto) 0.6 10^3/uL (0.8-4.8) L 05/08/24 11:00 [place] # (Auto) 0.7 10^3/uL (0.2-0.9) 05/08/24 11:00 Eos # (Auto) 0.0 10^3/uL (0.0-0.8) 05/08/24 11:00 Baso # (Auto) 0.0 10^3/uL (0.0-0.1) 05/08/24 11:00 Nucleated RBC % (auto) 0 % 05/08/24 11:00 Nucleated RBCs # 0.0 /100WBC 05/08/24 11:00 Sodium 136 mmol/L (136-145) 05/08/24 11:00 Potassium 3.5 mmol/L (3.5-5.1) 05/08/24 11:00 Chloride 98 mmol/L (98-107) 05/08/24 11:00 Carbon Dioxide 27 mmol/L (22-29) 05/08/24 11:00 Anion Gap 14.5 (5-19) 05/08/24 11:00 BUN 24 mg/dL (8-23) H 05/08/24 11:00 Creatinine 1.0 mg/dL (0.7-1.2) 05/08/24 11:00 GFR Calculation 74.1 mL/min (90-130) L 05/08/24 11:00 Glucose 144 mg/dL (65-115) H 05/08/24 11:00 Calculated Osmolality 289 mOsm/kg (285-295) 05/08/24 11:00 Calcium 8.8 mg/dL (8.5-10.5) 05/08/24 11:00 Total Bilirubin 0.6 mg/dL (0.15-1.2) 05/08/24 11:00 AST 28 U/L (0-40) 05/08/24 11:00 ALT 31 U/L (0-41) 05/08/24 11:00 Alkaline Phosphatase 97 U/L (40-130) 05/08/24 11:00 Troponin T Baseline 20 ng/L (0-15) H 05/08/24 11:00 Troponin T 120 Minute 18.61 ng/L (0-15) H 05/08/24 13:24 Delta Troponin T -1.39 ABS# (0-10) L 05/08/24 13:24 NT-Pro-B Natriuret Pep 1250 pg/mL (0-125) H 05/08/24 11:00 Total Protein 6.4 g/dL (6.6-8.7) L 05/08/24 11:00 Albumin 3.9 g/dL (3.5-5.2) 05/08/24 11:00 Globulin 2.5 g/dL (1.3-4.6) 05/08/24 11:00 Digoxin 0.4 ng/mL (0.6-1.2) L 05/08/24 11:00 All radiology interpretation(s) finalized by discharge Discharge Plan Discharge Patient Disposition: Home Clinical Impression: Atrial fibrillation Condition: Stable Prescriptions: New metoprolol tartrate 100 mg tablet 100 mg PO BID Qty: 60 0RF Discontinued metoprolol tartrate 50 mg Tablet 75 mg PO BID Qty: 90 0RF No Action diclofenac sodium 1 % gel 4 g topical QID Qty: 100 3RF Rx Instructions: apply to single knee, ankle, foot; for foot includes sole/toes/top of foot aspirin 325 mg tablet 325 mg PO QAM Hold Instructions: Resume on 04/24/22. Eliquis 5 mg Tablet 5 mg PO BID Qty: 60 0RF Hold Instructions: Resume on 03/20/20. omeprazole 20 mg capsule,delayed release(DR/EC) 40 mg PO QAM potassium chloride 20 mEq Tablet Extended Release 10 meq PO QAM furosemide [Lasix] 40 mg tablet 40 mg PO QAM Flomax 0.4 mg capsule 0.4 mg PO BID albuterol sulfate 90 mcg/actuation HFA aerosol inhaler 2 inh INHALATION Q4H PRN (Reason: shortness of breath or wheezing) Qty: 18 0RF loratadine 10 mg tablet 10 mg PO QAM nitroglycerin [Nitrostat] 0.4 mg Tablet, Sublingual 0.4 mg SUBLINGUAL Q5M PRN (Reason: Chest Pain) Rx Instructions: do not exceed 3 doses per episode prednisone 5 mg tablet 5 mg PO QAM digoxin 250 mcg (0.25 mg) tablet 250 mcg PO QAM Discharge Orders: Discharge ED (Routine); Ordered 05/08/24 Ordered By: Job Magana Referrals: Eduarda Pickard FNP-BC [Primary Care Provider] - Discharge Diet: Usual diet Discharge Activity: Resume usual activity Patient Instructions: Opioid Safety, Pain Management Activity Restrictions/Additional Instructions: Thank you for choosing [facility] for your healthcare needs today. It is very important that you follow up as instructed or that you return to the Emergency Department should you have concerns or if your condition changes or worsens in any way. You were seen in the emergency room with episode of atrial fibrillation with medications given your rate came under control recommend you increase your metoprolol to 100 mg twice a day. You were given a dose this afternoon you should take a dose of 100 mg p.o. tonight I have the on 100 mg twice a day follow-up with your doctor within the next week. Return if you have problems. 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 of Care Code ED Automotive Quality Engineer for Kevin Arceo
[2024-05-08 11:16] LABS: Basophils % 0.4 %; Eosinophils % 0.6 %; Hematocrit 38.7 % (37-53); Lymphocytes # 0.6 10^3/uL (0.8-4.8); Lymphocytes % 11.9 %; Mean Corpuscular HGB Conc 31.5 g/dL (30-55); Mean Corpuscular Volume 91.9 fl (82-101); Mean Platelet Volume 9.9 fL (7.4-10.4); Monocytes # 0.7 10^3/uL (0.2-0.9); Monocytes % 12.1 %; Neutrophils # 4.01 10^3/uL (1.8-7.7); Neutrophils % 74.4 %; Nucleated Red Blood Cells % 0 %; Platelet Count 155 10^3/cmm (157-399); Red Blood Count 4.21 10^6/uL (3.85-5.65); Red Cell Distribution Width 15.1 % (12.1-15.1); White Blood Count 5.38 10^3/uL (3.29-11.43)
[2024-05-08] MEDS: metoprolol tartrate 50 mg Tablet PO (11:27)
[2024-05-08] MEDS: metoprolol tartrate 1 mg/1 mL SDV 5 mL 2.5 MG IVP (11:28)
[2024-05-08 11:34] LABS: Troponin(5th) Baseline 20 ng/L (0-15)
[2024-05-08 11:37] LABS: Digoxin 0.4 ng/mL (0.6-1.2)
--- NOTE | 2024-05-08 11:43 | ECG_ITS ---
[facility]: 2024-[facility]08 Pat Name: Gabino Jones Department: Room: Gender: Male Prism Inspector: : 1955 Requested By: Vero Schneider Order Number: [id number] Mick MD: Mathew Sanchez M.D. Measurements Intervals [place] Rate: 108 P: 0 [place]: 0 QRS: 18 QRSD: 168 T: 61 QT: 328 QTc: 441 Interpretive Statements ATRIAL FIBRILLATION WITH RAPID VENTRICULAR RESPONSE RIGHT BUNDLE BRANCH BLOCK [120+ ms QRS DURATION, UPRIGHT V1, 40+ ms S IN I/aVL/V4/V5/V6] Compared to ECG 05/08/2024 10:15:41 No significant changes Electronically Signed On 05-08-2024 17:04:09 POCKET SETTER LOCKSTITCH by Mathew Sanchez M.D. [email or web address]
[2024-05-08 11:49] LABS: Alanine Aminotransferase 31 U/L (0-41); Albumin Level 3.9 g/dL (3.5-5.2); Alkaline Phosphatase 97 U/L (40-130); Anion Gap 14.5 (5-19); Aspartate Amino Transferase 28 U/L (0-40); Blood Urea Nitrogen 24 mg/dL (8-23); Calcium 8.8 mg/dL (8.5-10.5); Carbon Dioxide 27 mmol/L (22-29); Chloride 98 mmol/L (98-107); Creatinine Clr Calc Pharmacy 81.1222; Globulin 2.5 g/dL (1.3-4.6); Glomerular Filtration Rate 74.1 mL/min (90-130); Glucose 144 mg/dL (65-115); NT Pro B Type Natriuretic Pept 1250 pg/mL (0-125); Osmolality Calculated 289 mOsm/kg (285-295); Potassium 3.5 mmol/L (3.5-5.1); Sodium 136 mmol/L (136-145); Total Bilirubin 0.6 mg/dL (0.15-1.2); Total Protein 6.4 g/dL (6.6-8.7)
[2024-05-08] MEDS: metoprolol tartrate 25 mg Tablet PO (12:26)
[2024-05-08 13:49] LABS: Troponin 5 2HR 18.61 ng/L (0-15)
[2024-05-08 13:50] LABS: Troponin 5 2HR Delta -1.39 ABS# (0-10)
== END 2024-05-08 14:39 | disposition home or self-care (01) ==
PROVIDERS: Physician Assistant; Emergency Provider Family Medicine; PCP Nurse Practitioner
DX: I48.20 Chronic atrial fibrillation, unspecified (principal); Z87.891 Personal history of nicotine dependence; I11.0 Hypertensive heart disease with heart failure; I50.9 Heart failure, unspecified; C61 Malignant neoplasm of prostate; J44.9 Chronic obstructive pulmonary disease, unspecified
CPT/HCPCS: 36415; 71045; 80053; 80162; 83880; 84484; 85025; 93005; 96374; 99285; J3490

== ENCOUNTER 2024-05-09 12:54 | Inpatient (IN) | payer OTHER, MEDICARE, SELFPAY ==
[2024-05-09] VITALS (13 sets, daily range): BP systolic 89–155; BP diastolic 56–91; PULSE 86–137; RESP 14–20; TEMP 36.7–37.7; O2SAT 90–94; BMI 31.5
--- NOTE | 2024-05-09 13:01 | CTR_ITS ---
PROCEDURE INFORMATION: Exam: CTA Chest With Contrast Exam date and time: 05/09/2024 2:04 PM Age: 68 years old Clinical indication: Shortness of breath; Additional info: SOB TECHNIQUE: Imaging protocol: Computed tomographic angiography of the chest with contrast. Exam focused on the arteries. 3D rendering (Not supervised by radiologist): MIP and/or 3D reconstructed images were created by the technologist. Radiation optimization: All CT scans at this facility use at least one of these dose optimization techniques: automated exposure control; mA and/or kV adjustment per patient size (includes targeted exams where dose is matched to clinical indication); or iterative reconstruction. Contrast material: OMNIPAQUE 350; Contrast volume: 76 ml; Contrast route: INTRAVENOUS (IV); COMPARISON: CT angio chest PE protcl [id number] 06/17/2023 9:12 PM RADIATION DOSE METRICS: Total DLP (mGy-cm): 471.38 FINDINGS: Pulmonary arteries: Normal. No pulmonary emboli. Aorta: Unremarkable. No aortic aneurysm. No aortic dissection. Celiac trunk and mesenteric arteries: Proximal celiac and superior mesenteric artery atherosclerotic calcifications with 60-70% luminal narrowing Lungs: Emphysematous changes. Left lower lobe pneumonia. Biapical pleural-parenchymal fibrosis. Pleural spaces: See Lungs finding. Heart: Unremarkable. No cardiomegaly. No pericardial effusion. Coronary arteries: CABG changes. Lymph nodes: Unremarkable. No enlarged lymph nodes. Diaphragm: Moderate hiatal hernia. Liver: Hepatic steatosis. Gallbladder and biliary ducts: Cholecystectomy. Bones/joints: Unremarkable. No acute fracture. Soft tissues: Unremarkable. CT/CT angio chest PE protcl [id number] IMPRESSION: 1. Negative for pulmonary embolus. 2. CABG changes. 3. Hepatic steatosis. 4. Cholecystectomy. 5. Emphysematous changes. 6. Left lower lobe pneumonia. 7. Biapical pleural-parenchymal fibrosis. 8. Moderate hiatal hernia. 9. Proximal celiac and superior mesenteric artery atherosclerotic calcifications with 60-70% luminal narrowing COMMENTS: The presence of pulmonary emphysema on CT is an independent risk factor for lung cancer. In the absence of a history or active diagnosis of lung cancer, it is recommended that this patient with emphysema be evaluated for enrollment in a low dose CT lung cancer screening program.
--- NOTE | 2024-05-09 13:01 | XRR_ITS ---
PROCEDURE INFORMATION: Exam: XR Chest Exam date and time: 05/09/2024 1:10 PM Age: 68 years old Clinical indication: Shortness of breath; Patient HX: SOB; Hemoptysis TECHNIQUE: Imaging protocol: Radiologic exam of the chest. Views: 1 view. COMPARISON: CR XR chest 1V portable [id number] 05/08/2024 10:51 AM FINDINGS: Lungs: Left lower lobe pneumonia suspected. Emphysematous changes. Pleural spaces: Unremarkable. No pleural effusion. No pneumothorax. Heart/Mediastinum: Cardiomegaly. Bones/joints: Sternotomy wires. XR/XR chest 1V portable [id number] IMPRESSION: 1. Left lower lobe pneumonia suspected. 2. Emphysematous changes. 3. Cardiomegaly. 4. Sternotomy wires.
--- NOTE | 2024-05-09 13:05 | PC.PHAR ---
[facility] is [facility] at 100[facility]
--- NOTE | 2024-05-09 13:09 | ED_ITS ---
HPI - SOB/Dyspnea 2 General: Chief Complaint: Shortness of Breath/Dyspnea Stated Complaint: COUGHING UP BLOOD Time Seen by Provider: 05/09/24 12:55 Source: patient and EMS Mode of arrival: EMS Limitations: no limitations History of Present Illness: HPI Narrative: 68-year-old male with a history of A-fib COPD states he has been having cough for the last 2 days. He states that today started coughing up some slight amount of blood having low-grade fever. He has a history of A-fib as well as in A-fib with RVR here he denies any pain denies any vomiting Associated symptoms: Reports fever(s) and hemoptysis; Deny abdominal pain, chest pain, nausea or vomiting Related Data Home Medications Medication Instructions Recorded Confirmed omeprazole 20 mg capsule,delayed 40 mg PO QAM 10/04/20 04/15/24 release furosemide 40 mg tablet (Lasix) 40 mg PO QAM 03/28/21 04/15/24 potassium chloride 20 mEq 10 meq PO QAM 03/28/21 04/15/24 tablet,extended release aspirin 325 mg tablet 325 mg PO QAM 01/10/22 04/15/24 tamsulosin 0.4 mg capsule (Flomax) 0.4 mg PO BID 02/25/23 04/15/24 loratadine 10 mg tablet 10 mg PO QAM 05/15/23 04/15/24 digoxin 250 mcg (0.25 mg) tablet 250 mcg PO QAM 08/04/23 04/15/24 nitroglycerin 0.4 mg sublingual 0.4 mg sublingual Q5M PRN Chest 08/04/23 04/15/24 tablet (Nitrostat) Pain prednisone 5 mg tablet 5 mg PO QAM 08/04/23 04/15/24 Previous Rx's Medication Instructions Recorded apixaban 5 mg tablet (Eliquis) 5 mg PO BID #60 tabs 10/16/19 albuterol sulfate 90 mcg/actuation 2 inh inhalation Q4H PRN shortness 07/27/22 aerosol inhaler of breath or wheezing #18 grams diclofenac sodium 1 % topical gel 4 g topical QID #100 grams 04/10/24 metoprolol tartrate 100 mg tablet 100 mg PO BID #60 tabs 05/08/24 Allergies Allergy/AdvReac Type Severity Reaction Status Date / Time No Known Allergies Allergy Verified 05/08/24 10:36 Review of Systems 2 Const: Reports: fever(s); Denies: chills, body aches or change in appetite ENMT: Denies: throat pain or dental pain Card: Denies: chest pain Resp: Reports: dyspnea and hemoptysis GI: Denies: abdominal pain, nausea, vomiting or diarrhea Musc: Denies: neck pain or back pain Skin/Breast: Denies: rash Neuro: Denies: headache(s) PFSH ED 2 PFSH: Medical History Greater trochanteric bursitis of right hip Prostate cancer History of colon polyps Chronic anticoagulation eliquis, for afib Chronic respiratory failure with hypoxia Heart failure with preserved ejection fraction Coronary artery disease CHF (congestive heart failure) Last echocardiogram normal EF, grade 2/4 diastolic dysfunction October 2019 Hypertension Anemia Atrial fibrillation GERD (gastroesophageal reflux disease) Hypothyroidism Hyperlipidemia COPD (chronic obstructive pulmonary disease) Surgical History History of cataract surgery Left eye - 12/2022 H/O prostate biopsy S/P appendectomy S/P cholecystectomy History of colonoscopy (~04/2020) History of vasectomy History of knee surgery History of coronary artery bypass graft (03/2019) [address] [place] [address] Family History Father , IN HIS 50'S Lung disease tuberculosis Mother , AT AGE 63 CAD (coronary artery disease) Diabetes Hypertension Sister Cancer Denies family history of Clotting disorder Dementia Hyperlipidemia Psychiatric illness Chronic kidney disease (CKD) Suicide Anesthesia complication Bleeding disorder Stroke Social History Smoking and tobacco/nicotine status: former use of tobacco/nicotine Quit status (tobacco/nicotine): has quit using Year quit tobacco: 2017 - PPD x 52 Years Alcohol intake: never Substance/Drug Use: never Lives independently: Yes Household members: none Marital status: Legally Current occupational status: employed and retired Do you think of yourself as: Straight/Heterosexual Current gender identity: Male Physical Exam 2 Const: COMMON NORMALS: patient oriented x3 HENMT: COMMON NORMALS: normocephalic and atraumatic HEAD & SCALP: n ormocephalic and atraumatic Eye: COMMON NORMALS: Equal, round and reactive pupils present and EOMs intact bilaterally PUPIL: Yes Equal, round and reactive pupils present Neck/C-Spine: COMMON NORMALS: full ROM and supple Chest: COMMONS NORMALS: normal inspection of the chest Resp: COMMON NORMALS: normal respiratory effort, No retractions and No use of accessory muscles AUSCULTATION: wheezes Cardio: COMMON NORMALS: No murmurs present (Cardio) RATE: tachycardic R HYTHM: abnormal rhythm irregularly irregular GI: COMMON NORMALS: Normal to inspection, nondistended, normoactive bowel sounds present, Soft to palpation, non-tender and no masses PALPATION: Yes Soft to palpation Extremity: COMMON NORMALS: normal to inspection and full ROM Neuro: COMMON NORMALS: patient oriented x3, moves all extremities and no focal motor deficits Psych: COMMON NORMALS: mental status grossly normal, Normal thought process present and cooperative THOUGHT PROCESS: Normal thought process present Skin: COMMON NORMALS: no rashes or lesions noted and no wounds GENERAL SKIN EXAM: no rashes or lesions noted Course 2 Vital Signs: Vital signs: Vital Signs Temperature 99.9 F H 05/09/24 12:56 Pulse Rate 106 H 05/09/24 13:51 Respiratory Rate 14 05/09/24 13:46 Blood Pressure 115/56 05/09/24 13:46 Pulse Oximetry 93 05/09/24 13:46 Oxygen Delivery Me thod Room Air 05/09/24 13:46 MDM - SOB/Dyspnea Medical Decision Making 68-year-old male who presents here with hemoptysis CT does show a pneumonia is likely causing cough and fever he also has A-fib with RVR started on a Cardizem drip did get blood cultures start IV and a body spoke to hospitalist will admit Medical Records I reviewed the patient's medical records. Lab Data I reviewed the patient's lab results. 05/09/24 13:15 05/09/24 13:15 Labs/Radiology: Radiology Impressions Chest CTA 05/09/24 13:01 IMPRESSION: 1. Negative for pulmonary embolus. 2. CABG changes. 3. Hepatic steatosis. 4. Cholecystectomy. 5. Emphysematous changes. 6. Left lower lobe pneumonia. 7. Biapical pleural-parenchymal fibrosis. 8. Moderate hiatal hernia. 9. Proximal celiac and superior mesenteric artery atherosclerotic calcifications with 60-70% luminal narrowing COMMENTS: The presence of pulmonary emphysema on CT is an independent risk factor for lung cancer. In the absence of a history or active diagnosis of lung cancer, it is recommended that this patient with emphysema be evaluated for enrollment in a low dose CT lung cancer screening program. Chest X-Ray 05/09/24 13:01 IMPRESSION: 1. Left lower lobe pneumonia suspected. 2. Emphysematous changes. 3. Cardiomegaly. 4. Sternotomy wires. Laboratory Results WBC 3.77 10^3/uL (3.29-11.43) 05/09/24 13:15 RBC 4.15 10^6/uL (3.85-5.65) 05/09/24 13:15 Hgb 12.10 g/dL (11.27-16.99) 05/09/24 13:15 Hct 37.9 % (37-53) 05/09/24 13:15 MCV 91.3 fl (82-101) 05/09/24 13:15 MCH 29.2 pg (27-33) 05/09/24 13:15 MCHC 31.9 g/dL (30-55) 05/09/24 13:15 RDW 15.1 % (12.1-15.1) 05/09/24 13:15 Plt Count 159 10^3/cmm (157-399) 05/09/24 13:15 MPV 10.0 fL (7.4-10.4) 05/09/24 13:15 Neut % (Auto) 81.8 % 05/09/24 13:15 Lymph % (Auto) 6.1 % 05/09/24 13:15 Mcclain % (Auto) 10.3 % 05/09/24 13:15 Eos % (Auto) 0.8 % 05/09/24 13:15 Baso % (Auto) 0.5 % 05/09/24 13:15 Neut # (Auto) 3.08 10^3/uL (1.8-7.7) 05/09/24 13:15 Lymph # (Auto) 0.2 10^3/uL (0.8-4.8) L 05/09/24 13:15 Mcclain # (Auto) 0.4 10^3/uL (0.2-0.9) 05/09/24 13:15 Eos # (Auto) 0.0 10^3/uL (0.0-0.8) 05/09/24 13:15 Baso # (Auto) 0.0 10^3/uL (0.0-0.1) 05/09/24 13:15 Nucleated RBC % (auto) 0 % 05/09/24 13:15 Nucleated RBCs # 0.0 /100WBC 05/09/24 13:15 Sodium 131 mmol/L (136-145) L 05/09/24 13:15 Potassium 3.4 mmol/L (3.5-5.1) L 05/09/24 13:15 Chloride 97 mmol/L (98-107) L 05/09/24 13:15 Carbon Dioxide 22 mmol/L (22-29) 05/09/24 13:15 Anion Gap 15.4 (5-19) 05/09/24 13:15 BUN 19 mg/dL (8-23) 05/09/24 13:15 Creatinine 1.0 mg/dL (0.7-1.2) 05/09/24 13:15 GFR Calculation 74.1 mL/min (90-130) L 05/09/24 13:15 Glucose 249 mg/dL (65-115) H 05/09/24 13:15 Calculated Osmolality 283 mOsm/kg (285-295) L 05/09/24 13:15 Calcium 8.9 mg/dL (8.5-10.5) 05/09/24 13:15 Total Bilirubin 0.5 mg/dL (0.15-1.2) 05/09/24 13:15 AST 28 U/L (0-40) 05/09/24 13:15 ALT 32 U/L (0-41) 05/09/24 13:15 Alkaline Phosphatase 95 U/L (40-130) 05/09/24 13:15 NT-Pro-B Natriuret Pep 2179 pg/mL (0-125) H 05/09/24 13:15 Total Protein 6.6 g/dL (6.6-8.7) 05/09/24 13:15 Albumin 3.6 g/dL (3.5-5.2) 05/09/24 13:15 Globulin 3.0 g/dL (1.3-4.6) 05/09/24 13:15 SARS-CoV-2 Ag (Rapid) Negative (Negative) 05/09/24 13:32 All radiology interpretation(s) finalized by discharge EKG Data EKG 1: I personally reviewed and interpreted this EKG as follows: EKG Interpretation Date: 05/09/24 EKG interpretation time: 13:08 Interpretation: afib hr [address] or t wave abnormalities qrs 152 qtc 386 Discharge Plan Discharge Patient Disposition: Admitted As Inpatient Clinical Impression: Community acquired pneumonia, Atrial fibrillation with RVR Condition: Stable Prescriptions: No Action diclofenac sodium 1 % gel 4 g topical QID Qty: 100 3RF Rx Instructions: apply to single knee, ankle, foot; for foot includes sole/toes/top of foot aspirin 325 mg tablet 325 mg PO QAM Hold Instructions: Resume on 04/24/22. Eliquis 5 mg Tablet 5 mg PO BID Qty: 60 0RF Hold Instructions: Resume on 04/21/22. omeprazole 20 mg capsule,delayed release(DR/EC) 40 mg PO QAM potassium chloride 20 mEq Tablet Extended Release 10 meq PO QAM furosemide [Lasix] 40 mg tablet 40 mg PO QAM Flomax 0.4 mg capsule 0.4 mg PO BID albuterol sulfate 90 mcg/actuation HFA aerosol inhaler 2 inh INHALATION Q4H PRN (Reason: shortness of breath or wheezing) Qty: 18 0RF loratadine 10 mg tablet 10 mg PO QAM nitroglycerin [Nitrostat] 0.4 mg Tablet, Sublingual 0.4 mg SUBLINGUAL Q5M PRN (Reason: Chest Pain) Rx Instructions: do not exceed 3 doses per episode prednisone 5 mg tablet 5 mg PO QAM digoxin 250 mcg (0.25 mg) tablet 250 mcg PO QAM metoprolol tartrate 100 mg tablet 100 mg PO BID Qty: 60 0RF Referrals: Eduarda Pickard FNP-EVARISTO [Primary Care Provider] - 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 of Care Code ED Exec. Creative Director for Kevin Arceo
[2024-05-09 13:27] LABS: Basophils % 0.5 %; Eosinophils % 0.8 %; Hematocrit 37.9 % (37-53); Lymphocytes # 0.2 10^3/uL (0.8-4.8); Lymphocytes % 6.1 %; Mean Corpuscular HGB Conc 31.9 g/dL (30-55); Mean Corpuscular Hemoglobin 29.2 pg (27-33); Mean Corpuscular Volume 91.3 fl (82-101); Monocytes # 0.4 10^3/uL (0.2-0.9); Monocytes % 10.3 %; Neutrophils # 3.08 10^3/uL (1.8-7.7); Neutrophils % 81.8 %; Nucleated Red Blood Cells % 0 %; Platelet Count 159 10^3/cmm (157-399); Red Blood Count 4.15 10^6/uL (3.85-5.65); Red Cell Distribution Width 15.1 % (12.1-15.1); White Blood Count 3.77 10^3/uL (3.29-11.43)
[2024-05-09] MEDS: ipratropium-albuterol 3 mL Neb INHALATION (13:37)
[2024-05-09] MEDS: methylPREDNISolone sod succ 125 mg/2 mL INJ IVP (13:44)
[2024-05-09] MEDS: acetaminophen 500 mg Tablet 1000 MG PO (13:45)
[2024-05-09] MEDS: dilTIAZem 5 mg/mL SDV 5 mL 15 MG IVP (13:45)
[2024-05-09 13:59] LABS: Alanine Aminotransferase 32 U/L (0-41); Albumin Level 3.6 g/dL (3.5-5.2); Alkaline Phosphatase 95 U/L (40-130); Anion Gap 15.4 (5-19); Aspartate Amino Transferase 28 U/L (0-40); Blood Urea Nitrogen 19 mg/dL (8-23); Calcium 8.9 mg/dL (8.5-10.5); Carbon Dioxide 22 mmol/L (22-29); Chloride 97 mmol/L (98-107); Creatinine Clr Calc Pharmacy 82.5533; Glomerular Filtration Rate 74.1 mL/min (90-130); Glucose 249 mg/dL (65-115); NT Pro B Type Natriuretic Pept 2179 pg/mL (0-125); Osmolality Calculated 283 mOsm/kg (285-295); Potassium 3.4 mmol/L (3.5-5.1); Sodium 131 mmol/L (136-145); Total Bilirubin 0.5 mg/dL (0.15-1.2); Total Protein 6.6 g/dL (6.6-8.7)
[2024-05-09] MEDS: iohexol 350 mg/mL 500 mL Btl (per mL) IV (14:08)
[2024-05-09 14:10] LABS: SARS Covid-2 Antigen Negative (Negative)
[2024-05-09] MEDS: AZITHROMYCIN ADD-Vantage 500 MG in 0.9% NaCl ADD-Vantage 250 ML 250 MG IV (14:44)
[2024-05-09] MEDS: cefTRIAXone 1,000 mg SDV 1000 MG IVP (14:45)
[2024-05-09] MEDS: sodium chloride 0.9% 1,000 ML 999 ML IV (14:45)
[2024-05-09] MEDS: dilTIAZem 100 MG in sodium chloride 0.9% (add-van) 100 ML IV (15:23)
[2024-05-09 17:07] LABS: Magnesium 2.1 mg/dL (1.7-2.3)
--- NOTE | 2024-05-09 17:18 | P.HP_ITS ---
Providers/Chief Complaint 2 Admitting Physician: Tam Ritchie Primary Care Provider: Eduarda Pickard, [facility]- Chief Complaint: COUGHING UP BLOOD History of Present Illness Pleasant 68-year-old gentleman with history of COPD, CHF, CAD, HTN, HLD, A-fib, hypothyroidism, hiatal hernia presented to ER due to dyspnea, cough in the last 2 days coughing up copious phlegm, with low-grade fever, on presentation found to have temp 99.9, without leukocytosis, with left lower lobe infiltrate suggestive of pneumonia, additional incidental findings on CT including emphysema, biapical pleural-parenchymal fibrosis, moderate hiatal hernia, incidentally found proximal celiac and superior mesenteric artery atherosclerosis claudications with 60 to 70% luminal narrowing. In ER he is also found to have atrial fibrillation with RVR heart rate up into 160s. Blood cultures were collected, he received ceftriaxone, Zithromycin dose of Solu- Medrol, and fluid bolus of 1 L, received IV push of Cardizem and started on Cardizem drip. Due to known history of hiatal hernia usually sleeps in a recliner. He has missed some of his medications in the last several days. Review of Systems 2 Const: Denies: fever(s), chills, body aches or malaise ENMT: Denies: throat pain Card: Reports: chest pain (Mild pleuritic chest discomfort left lower chest.), edema and swelling of feet/ankles; Denies: pre-syncope Resp: Reports: dyspnea and productive cough; Denies: hemoptysis GI: Denies: abdominal pain, nausea, vomiting, diarrhea, constipation, hematochezia or melena : Denies: flank pain, difficulty urinating, urinary frequency or hematuria Musc: Denies: back pain, joint swelling or joint redness Skin/Breast: Denies: rash or new lesions Neuro: Denies: headache(s) or dizziness Medications/Allergies Home Medications Medication Instructions Recorded Confirmed Last Taken Type apixaban 5 mg tablet (Eliquis) 5 mg PO BID #60 tabs 10/16/19 05/09/24 03/19/24 Rx omeprazole 20 mg capsule,delayed 40 mg PO QAM 10/04/20 05/09/24 03/24/24 History release furosemide 40 mg tablet (Lasix) 40 mg PO QAM 03/28/21 05/09/24 03/23/24 History potassium chloride 20 mEq 10 meq PO QAM 03/28/21 05/09/24 03/23/24 History tablet,extended release aspirin 325 mg tablet 325 mg PO QAM 01/10/22 05/09/24 03/19/24 History albuterol sulfate 90 mcg/actuation 2 inh inhalation Q4H PRN shortness 07/27/22 05/09/24 03/23/24 Rx aerosol inhaler of breath or wheezing #18 grams tamsulosin 0.4 mg capsule (Flomax) 0.4 mg PO BID 02/25/23 05/09/24 03/24/24 History loratadine 10 mg tablet 10 mg PO QAM 05/15/23 05/09/24 03/23/24 History digoxin 250 mcg (0.25 mg) tablet 250 mcg PO QAM 08/04/23 05/09/24 03/23/24 History nitroglycerin 0.4 mg sublingual 0.4 mg sublingual Q5M PRN Chest 08/04/23 05/09/24 03/15/24 History tablet (Nitrostat) Pain prednisone 5 mg tablet 5 mg PO QAM 08/04/23 05/09/24 03/24/24 History diclofenac sodium 1 % topical gel 4 g topical QID #100 grams 04/10/24 05/09/24 Unknown Rx metoprolol tartrate 100 mg tablet 100 mg PO BID #60 tabs 05/08/24 05/09/24 Unknown Rx Allergies Allergy/AdvReac Type Severity Reaction Status Date / Time No Known Allergies Allergy Verified 05/08/24 10:36 PFSH Acute 2 PFSH: Medical History Greater trochanteric bursitis of right hip Prostate cancer History of colon polyps Chronic anticoagulation eliquis, for afib Chronic respiratory failure with hypoxia Heart failure with preserved ejection fraction Coronary artery disease CHF (congestive heart failure) Last echocardiogram normal EF, grade 2/4 diastolic dysfunction October 2019 Hypertension Anemia Atrial fibrillation GERD (gastroesophageal reflux disease) Hypothyroidism Hyperlipidemia COPD (chronic obstructive pulmonary disease) Surgical History History of cataract surgery Left eye - 12/2022 H/O prostate biopsy S/P appendectomy S/P cholecystectomy History of colonoscopy (~04/2020) History of vasectomy History of knee surgery History of coronary artery bypass graft (03/2019) 4 [facility] Family History Father , IN HIS 50'S Lung disease tuberculosis Mother , AT AGE 63 CAD (coronary artery disease) Diabetes Hypertension Sister Cancer Denies family history of Clotting disorder Dementia Hyperlipidemia Psychiatric illness Chronic kidney disease (CKD) Suicide Anesthesia complication Bleeding disorder Stroke Social History Smoking and tobacco/nicotine status: former use of tobacco/nicotine Quit status (tobacco/nicotine): has quit using Year quit tobacco: 2016 - PPD x 52 Years Alcohol intake: never Substance/Drug Use: never Lives independently: Yes Household members: none Marital status: Legally Current occupational status: employed and retired Do you think of yourself as: Straight/Heterosexual Current gender identity: Male Vitals/I&O/Wt Last Vital Signs Temp 99.9 F H 05/09/24 12:56 Pulse 103 H 05/09/24 16:25 Resp 19 H 05/09/24 16:25 BP 89/69 05/09/24 16:25 Pulse Ox 93 05/09/24 16:25 O2 Del Method Room Air 05/09/24 16:25 05/09/24 05/09/24 05/09/24 06:59 14:59 22:59 Intake Total 1250 / 1250 Balance 1250 / 1250 Weight last 48 hrs Weight 99.79 kg Physical Exam 2 Const: COMMON NORMALS: patient oriented x3 and alert GENERAL APPEARANCE: c ooperative ORIENTATION/CONSCIOUSNESS: Yes awake HENMT: COMMON NORMALS: oropharynx normal Neck/C-Spine: COMMON NORMALS: no JVD Resp: COMMON NORMALS: normal respiratory effort and clear to auscultation bilaterally AUSCULTATION: clear to auscultation bilaterally Cardio: COMMON NORMALS: no JVD, regular rhythm, S1 normal heart sound present, S2 normal heart sound present and No murmurs present (Cardio) RHYTHM: a bnormal rhythm HEART SOUNDS: S1 normal heart sound present and S2 normal heart sound present GI: COMMON NORMALS: Normal to inspection, nondistended, normoactive bowel sounds present, Soft to palpation and non-tender PALPATION: Yes Soft to palpation Extremity: COMMON NORMALS: no joint enlargement and no pedal edema Neuro: COMMON NORMALS: patient oriented x3 and moves all extremities S ENSORIUM/ORIENTATION: Yes alert Skin: COMMON NORMALS: no rashes or lesions noted GENERAL SKIN EXAM: no rashes or lesions noted Data 05/09/24 13:15 05/09/24 13:15 Micro: Microbiology 05/09/24 14:48 Blood Culture - Preliminary Blood SPECIMEN COLLECTED 05/09/24 13:15 Blood Culture - Preliminary Blood SPECIMEN COLLECTED A&P Assessment and plan (1) Community acquired pneumonia: Community-acquired pneumonia with fever, productive cough, dyspnea, with A-fib with RVR, reviewed vitals, CBC, CMP, rapid COVID-19, chest x-ray, chest CT, noted left lower lobe pneumonia. Hiatal hernia. Reviewed ER note, discussed with ER provider. He denies any overt aspiration with food or drink. Usually sleeps upright in the chair. Started on ceftriaxone, azithromycin. Continue for community-acquired pneumonia. Check EKG, monitor for risk of QT punctation with azithromycin. Monitor vitals, oxygenation. Obtain sputum culture. Obtain urine Legionella antigen, urine bacterial antigens. (2) Atrial fibrillation with RVR: Continue Cardizem drip. Resume metoprolol, digoxin. Check digoxin level. Continue Eliquis. (3) Decompensated heart failure: Acutely decompensated diastolic congestive heart failure. With lower extremity edema, dyspnea, orthopnea, dyspnea on exertion. Takes oral Lasix at home. Will switch to IV Lasix here 40 mg IV twice daily. Monitor for risk of electro deficiency, DILLON. Monitor acute output. Recheck chemistry. Reviewed magnesium. Monitor on telemetry. (4) Acute exacerbation of chronic obstructive pulmonary disease: Acute severe exacerbation of COPD with cough, dyspnea, purulent copious sputum with productive cough, wheezing on exam, diminished air entry. Antibiotic coverage as above. Collect urine culture. Additional assessment as above. Solu-Medrol IV 40 mg every 8 hours. Monitor for risk of encephalopathy, hyperglycemia, hypertension, gastritis. Plan CAD, HTN, HLD, A-fib, Hypothyroidism, Hiatal hernia Attestations 2 Medical Necessity Statement*: Admission of over 2 midnights anticipated for assessment management of community-acquired pneumonia complicated by A-fib with RVR, severe exacerbation of COPD and decompensated diastolic congestive heart failure. Diagnoses Community acquired pneumonia J18.9 Atrial fibrillation with RVR I48.91 Decompensated heart failure I50.9 Acute exacerbation of chronic obstructive pulmonary disease J44.1
[2024-05-09 17:24] LABS: Glucose Point of Care 172 mg/dL (70-110)
[2024-05-09] MEDS: insulin lispro 100 unit/1 mL SUBCUT ×2 (17:46→21:14)
--- NOTE | 2024-05-09 18:09 | ECG_ITS ---
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: : 1955 Requested By: Liz Fuentes Order Number: [id number] Reading MD: JR OH Measurements Intervals [place] Rate: 95 P: 0 PA: 0 QRS: -11 QRSD: 142 T: 123 QT: 402 QTc: 508 Interpretive Statements ATRIAL FIBRILLATION RIGHT BUNDLE BRANCH BLOCK [120+ ms QRS DURATION, UPRIGHT V1, 40+ ms S IN I/aVL/V4/V5/V6] INFERIOR MYOCARDIAL INFARCTION , PROBABLY OLD [40+ ms Q WAVE AND/OR ST/T ABNORMALITY IN II/aVF] MODERATE T-WAVE ABNORMALITY, CONSIDER LATERAL ISCHEMIA [-0.1+ mV T-WAVE IN I/aVL/V5/V6] Compared to ECG 05/08/2024 11:43:43 Myocardial infarct finding now present T-wave abnormality now present Possible ischemia now present Electronically Signed On 05-11-2024 16:11:36 OPERATIONAL TEST MECHANIC by JR OH [email or web address]
--- NOTE | 2024-05-09 18:19 | ECG_ITS ---
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: : 1955 Requested By: Tam Ritchie Order Number: [id number] Reading MD: JR OH Measurements Intervals [place] Rate: 69 P: 0 MA: 0 QRS: -13 QRSD: 138 T: 68 QT: 408 QTc: 438 Interpretive Statements ATRIAL FIBRILLATION RIGHT BUNDLE BRANCH BLOCK [120+ ms QRS DURATION, UPRIGHT V1, 40+ ms S IN I/aVL/V4/V5/V6] INFERIOR MYOCARDIAL INFARCTION , PROBABLY OLD [40+ ms Q WAVE AND/OR ST/T ABNORMALITY IN II/aVF] Compared to ECG 05/09/2024 18:09:35 T-wave abnormality no longer present Possible ischemia no longer present Myocardial infarct finding still present Electronically Signed On 05-11-2024 16:16:03 HAIR SALON MANAGER by JR OH [email or web address]
[2024-05-09 20:06] LABS: Digoxin 0.5 ng/mL (0.6-1.2)
[2024-05-09 20:16] LABS: Influenza A NEGATIVE (Negative); Influenza B NEGATIVE (Negative); Respiratory Syncytial Virus Ce NEGATIVE (Negative)
[2024-05-09 20:48] LABS: Covid PCR Positive (Negative)
[2024-05-09 21:01] LABS: Glucose Point of Care 252 mg/dL (70-110)
[2024-05-09] MEDS: methylPREDNISolone sod succ 40 mg/mL INJ IVP (21:14)
[2024-05-10] VITALS (12 sets, daily range): BP systolic 104–144; BP diastolic 51–80; PULSE 63–93; RESP 18–25; TEMP 36.5–36.7; O2SAT 92–98
[2024-05-10] MEDS: FUROsemide 10 mg/mL SDV 4mL 40 MG IVP ×2 (04:56→17:18)
[2024-05-10] MEDS: methylPREDNISolone sod succ 40 mg/mL INJ IVP ×3 (04:57→22:13)
[2024-05-10] MEDS: pantoprazole DR 40 mg Tablet PO (04:59)
[2024-05-10] MEDS: digoxin 250 mcg Tablet PO (04:59)
[2024-05-10] MEDS: aspirin 325 mg Tablet PO (04:59)
[2024-05-10 05:30] LABS: Hematocrit 36.3 % (37-53); Lymphocytes # 0.3 10^3/uL (0.8-4.8); Lymphocytes % 10.2 %; Mean Corpuscular HGB Conc 31.1 g/dL (30-55); Mean Corpuscular Hemoglobin 29.2 pg (27-33); Mean Corpuscular Volume 93.8 fl (82-101); Mean Platelet Volume 12.3 fL (7.4-10.4); Monocytes # 0.1 10^3/uL (0.2-0.9); Monocytes % 5.3 %; Neutrophils # 2.07 10^3/uL (1.8-7.7); Neutrophils % 84.1 %; Nucleated Red Blood Cells % 0 %; Platelet Count 112 10^3/cmm (157-399); Red Blood Count 3.87 10^6/uL (3.85-5.65); Red Cell Distribution Width 14.8 % (12.1-15.1); White Blood Count 2.46 10^3/uL (3.29-11.43)
[2024-05-10 05:52] LABS: Blood Urea Nitrogen 18 mg/dL (8-23); Calcium 9.7 mg/dL (8.5-10.5); Carbon Dioxide 29 mmol/L (22-29); Chloride 102 mmol/L (98-107); Creatinine Clr Calc Pharmacy 89.6984; Glomerular Filtration Rate 83.7 mL/min (90-130); Glucose 195 mg/dL (65-115); Osmolality Calculated 297 mOsm/kg (285-295); Sodium 140 mmol/L (136-145)
[2024-05-10 06:19] LABS: Slide Review Slide Review Perform
[2024-05-10 06:27] LABS: Glucose Point of Care 206 mg/dL (70-110)
[2024-05-10] MEDS: metoprolol tartrate 50 mg Tablet 100 MG PO ×2 (08:58→17:18)
[2024-05-10] MEDS: insulin lispro 100 unit/1 mL SUBCUT ×4 (08:58→22:13)
[2024-05-10] MEDS: tamsulosin 0.4 mg Capsule PO ×2 (08:58→17:18)
[2024-05-10] MEDS: apixaban 5 mg Tablet PO ×2 (08:59→17:18)
[2024-05-10] MEDS: cefTRIAXone 1,000 mg SDV 1000 MG IVP (08:59)
[2024-05-10] MEDS: dilTIAZem 100 MG in sodium chloride 0.9% (add-van) 100 ML IV (09:28)
--- NOTE | 2024-05-10 11:34 | P.PN_ITS ---
Subjective 2 Subjective: Today he is feeling slightly better. Breathing a bit easier. Heart rate was elevated this morning, was restarted on Cardizem drip. Vitals/I&O/Wt Last Vital Signs Temp 97.7 F 05/10/24 11:29 Pulse 77 05/10/24 11:29 Resp 20 H 05/10/24 11:29 BP 117/67 05/10/24 11:29 Pulse Ox 97 05/10/24 11:29 O2 Del Method Room Air 05/10/24 11:29 05/09/24 05/10/24 05/10/24 22:59 06:59 14:59 Intake Total 1250 / 1250 570.417 / 570.417 Output Total 600 / 600 500 / 1100 400 / 400 Balance 650 / 650 -500 / 150 170.417 / 170.417 Weight last 48 hrs Weight 95.164 kg Weight 99.79 kg Weight 99.79 kg Physical Exam 2 Const: COMMON NORMALS: patient oriented x3 and alert GENERAL APPEARANCE: c ooperative ORIENTATION/CONSCIOUSNESS: Yes awake HENMT: COMMON NORMALS: oropharynx normal Neck/C-Spine: COMMON NORMALS: no JVD Resp: COMMON NORMALS: normal respiratory effort AUSCULTATION: crackles Laterality: left (lower) Cardio: COMMON NORMALS: no JVD, S1 normal heart sound present, S2 normal heart sound present and No murmurs present (Cardio) RHYTHM: abnormal rhythm H EART SOUNDS: S1 normal heart sound present and S2 normal heart sound present GI: COMMON NORMALS: Normal to inspection, nondistended, normoactive bowel sounds present, Soft to palpation and non-tender PALPATION: Yes Soft to palpation Extremity: COMMON NORMALS: no joint enlargement and no pedal edema Neuro: COMMON NORMALS: patient oriented x3 and moves all extremities S ENSORIUM/ORIENTATION: Yes alert Skin: COMMON NORMALS: no rashes or lesions noted GENERAL SKIN EXAM: no rashes or lesions noted Data 05/10/24 05:07 05/10/24 05:07 Micro: Microbiology 05/09/24 19:05 Legionella Urinary Antigen - Final Urine,Voided Bacterial Antigens - Final 05/09/24 14:48 Blood Culture - Preliminary Blood SPECIMEN COLLECTED 05/09/24 13:15 Blood Culture - Preliminary Blood SPECIMEN COLLECTED A&P Assessment and plan (1) Community acquired pneumonia: Noted mild leukopenia, neutrophils still normal. Noted lymphopenia. Suspect likely secondary to coronavirus infection. Reviewed chemistry, renal function, liver parameters so far normal. Reviewed magnesium, normal. Community-acquired pneumonia with fever, productive cough, dyspnea, with A-fib with RVR, reviewed vitals, CBC, CMP, rapid COVID-19, chest x-ray, chest CT, noted left lower lobe pneumonia. Hiatal hernia. Reviewed ER note, discussed with ER provider. He denies any overt aspiration with food or drink. Usually sleeps upright in the chair. Started on ceftriaxone, azithromycin. Continue for community-acquired pneumonia. Check EKG, monitor for risk of QT punctation with azithromycin. Monitor vitals, oxygenation. Obtain sputum culture. Obtain urine Legionella antigen, urine bacterial antigens. (2) Coronavirus infection: Start remdesivir, no steroid at current time. Reassess oxygenation, condition. Antitussive as needed. He is on Eliquis. (3) Atrial fibrillation with RVR: Reviewed digoxin level, low. Had to be resumed on Cardizem drip this morning with tachycardia. Continue metoprolol. Will give additional loading dose of digoxin 0.25 mg IV. Continue oral digoxin. Continue Cardizem drip. Resume metoprolol, digoxin. Check digoxin level. Continue Eliquis. (4) Decompensated heart failure: Continue IV Lasix here 40 mg IV twice daily. Monitor for risk of electrolyte deficiency, DILLON. Monitor acute output. Recheck chemistry. Reviewed magnesium. Monitor on telemetry. (5) Acute exacerbation of chronic obstructive pulmonary disease: Add DuoNebs. Flutter valve. Acute severe exacerbation of COPD with cough, dyspnea, purulent copious sputum with productive cough, wheezing on exam, diminished air entry. Antibiotic coverage as above. Collect urine culture. Additional assessment as above. Solu-Medrol IV 40 mg every 8 hours. Monitor for risk of encephalopathy, hyperglycemia, hypertension, gastritis. Plan CAD, HTN, HLD, A-fib, Hypothyroidism, Hiatal hernia Attestations 2 Medical Necessity Statement*: Continue admission for assessment of management of community-acquired pneumonia, COPD exacerbation COPD, coronavirus infection. Admitted for control of A-fib with RVR. Diagnoses Community acquired pneumonia J18.9 Coronavirus infection B34.2 Atrial fibrillation with RVR I48.91 Decompensated heart failure I50.9 Acute exacerbation of chronic obstructive pulmonary disease J44.1
[2024-05-10 11:59] LABS: Glucose Point of Care 307 mg/dL (70-110)
[2024-05-10] MEDS: digoxin 250 mcg/ml INJ 2 mL IVP (12:21)
[2024-05-10] MEDS: remdesivir 200 MG in sodium chloride 0.9% (100 ml) 60 ML 100 MG IV (12:22)
[2024-05-10] MEDS: acetaminophen 325 mg Tablet 650 MG PO (14:03)
[2024-05-10] MEDS: AZITHROMYCIN ADD-Vantage 500 MG in 0.9% NaCl ADD-Vantage 250 ML 250 MG IV (14:05)
[2024-05-10] MEDS: ipratropium-albuterol 3 mL Neb INHALATION ×2 (14:26→20:16)
[2024-05-10 17:33] LABS: Glucose Point of Care 244 mg/dL (70-110)
[2024-05-10 20:56] LABS: Glucose Point of Care 222 mg/dL (70-110)
[2024-05-11] VITALS (14 sets, daily range): BP systolic 98–123; BP diastolic 46–62; PULSE 69–96; RESP 17–22; TEMP 36.6–37.2; O2SAT 91–95
[2024-05-11] MEDS: FUROsemide 10 mg/mL SDV 4mL 40 MG IVP ×2 (04:31→16:22)
[2024-05-11] MEDS: methylPREDNISolone sod succ 40 mg/mL INJ IVP ×3 (04:31→18:03)
[2024-05-11 05:32] LABS: Basophils % 0.2 %; Hematocrit 35.9 % (37-53); Lymphocytes # 0.4 10^3/uL (0.8-4.8); Mean Corpuscular Hemoglobin 29.9 pg (27-33); Mean Corpuscular Volume 93.2 fl (82-101); Mean Platelet Volume 11.4 fL (7.4-10.4); Monocytes # 0.3 10^3/uL (0.2-0.9); Monocytes % 4.7 %; Neutrophils # 5.64 10^3/uL (1.8-7.7); Neutrophils % 88.8 %; Nucleated Red Blood Cells % 0 %; Platelet Count 200 10^3/cmm (157-399); Red Blood Count 3.85 10^6/uL (3.85-5.65); White Blood Count 6.35 10^3/uL (3.29-11.43)
[2024-05-11 05:46] LABS: Anion Gap 13.1 (5-19); Blood Urea Nitrogen 37 mg/dL (8-23); Calcium 9.4 mg/dL (8.5-10.5); Carbon Dioxide 29 mmol/L (22-29); Chloride 98 mmol/L (98-107); Creatinine Clr Calc Pharmacy 80.7286; Glomerular Filtration Rate 74.1 mL/min (90-130); Glucose 228 mg/dL (65-115); Osmolality Calculated 298 mOsm/kg (285-295); Potassium 4.1 mmol/L (3.5-5.1); Sodium 136 mmol/L (136-145)
[2024-05-11] MEDS: pantoprazole DR 40 mg Tablet PO (06:06)
[2024-05-11] MEDS: aspirin 325 mg Tablet PO (06:06)
[2024-05-11] MEDS: digoxin 250 mcg Tablet PO (06:06)
[2024-05-11 06:41] LABS: Glucose Point of Care 241 mg/dL (70-110)
[2024-05-11] MEDS: ipratropium-albuterol 3 mL Neb INHALATION ×3 (08:09→21:41)
[2024-05-11] MEDS: insulin lispro 100 unit/1 mL SUBCUT ×4 (08:52→21:54)
[2024-05-11] MEDS: apixaban 5 mg Tablet PO ×2 (08:53→18:04)
[2024-05-11] MEDS: tamsulosin 0.4 mg Capsule PO ×2 (08:53→18:03)
[2024-05-11] MEDS: cefTRIAXone 1,000 mg SDV 1000 MG IVP (08:53)
[2024-05-11] MEDS: metoprolol tartrate 50 mg Tablet 100 MG PO ×2 (08:53→18:04)
--- NOTE | 2024-05-11 09:38 | PC.CHAP ---
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 [] Patient/Family/Request visit [] Outpatient visit [] Follow-up visit [] Physician referral [] Code/Alert [x] Routine visit [] Staff referral [] Actively dying [] Patient sleeping [] Family support [] [] Out of room [] Palliative care [] [] Receiving care in room [] Pre-surgical visit [] Trauma [] Long length of stay [] ICU visit [] Other: Relational/Emotional Strength [] Patient feels connected with others/family/visitors/staff [] Distress [] Loneliness/isolation [] Abandonment Spirituality of Patient [] Person of [place] [] Attends Synagogue of their [place] [] Believes in Prayer [] Reads Bible or Denominational materials [] There are Spiritual issues to be addressed 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 [] Prayer [] Active listening [] Non-anxious presence [] Spiritual/emotional support [] Crisis/trauma care [] Spiritual counseling [] Bereavement support [] Provided bereavement packet [] Provided Bible/devotional materials [] Provided toy/stuffed animal, coloring book to patient or family member [] Provided Communion [] Anointing/[place] [] Salvation [] Completed spiritual assessment [] Other: Impact on Illness or Injury [] Angry [] Fearful [] Anxious [] Often cries [] Exhaustion [] Unable to work [] Unable to attend mandaeism [] Unable to walk/stand [] Unable to read [] Unable to drive [] Unable to eat/drink [] Unable to sleep [] Unable to be with family [] Patient intubated [] Other: Summary precaution Time spent with patient
[2024-05-11 09:51] LABS: Estmated Average Glucose 183
[2024-05-11 09:54] LABS: Digoxin 0.8 ng/mL (0.6-1.2)
[2024-05-11 10:12] LABS: Procalcitonin 0.15 ng/mL (0-0.5); Thyroid Stimulating Hormone 0.44 uIU/mL (0.27-4.20); Vitamin B12 346 pg/mL (232-1245)
[2024-05-11 10:23] LABS: Iron 37 ug/dL (59-158); Percent Saturation 19.4 % (20-50); Total Iron Binding Capacity 190 mcg/dl; Unsaturated Iron Binding 153 ug/dL (112-347)
--- NOTE | 2024-05-11 10:50 | PC.SOCIAL ---
IMM Update pg 2 of IMM Updated and reviewed w/ patient. Copy provided and copy dated, initialed and placed in chart.
[2024-05-11 12:12] LABS: Glucose Point of Care 385 mg/dL (70-110)
[2024-05-11] MEDS: remdesivir 100 MG in sodium chloride 0.9% (100 ml) 80 ML IV (13:33)
--- NOTE | 2024-05-11 14:44 | P.PN_ITS ---
Subjective 2 Subjective: Hospital course, labs appreciated. No acute events overnight. Did receive next dose of digoxin yesterday. Heart rate has been better controlled since then. Cardizem has been discontinued. On examination on 1 L of oxygen supplementation. States he is feeling a lot better. Denies any nausea, vomiting, headache. Vitals/I&O/Wt Last Vital Signs Temp 97.9 F 05/11/24 11:32 Pulse 84 05/11/24 13:53 Resp 20 H 05/11/24 13:53 BP 110/58 05/11/24 11:32 Pulse Ox 93 05/11/24 13:53 O2 Del Method Room Air 05/11/24 13:53 O2 Flow Rate 2 05/11/24 02:28 05/10/24 05/11/24 05/11/24 22:59 06:59 14:59 Intake Total 250 / 1555.834 118 / 118 Output Total 675 / 1075 1125 / 2200 Balance -425 / 480.834 -1125 / -644.166 118 / 118 Weight last 48 hrs Weight 93.758 kg Weight 95.164 kg Weight 99.79 kg Physical Exam 2 Const: COMMON NORMALS: patient oriented x3 and alert GENERAL APPEARANCE: c ooperative ORIENTATION/CONSCIOUSNESS: Yes awake HENMT: COMMON NORMALS: oropharynx normal Neck/C-Spine: COMMON NORMALS: no JVD Resp: COMMON NORMALS: normal respiratory effort and clear to auscultation bilaterally AUSCULTATION: clear to auscultation bilaterally and crackles Laterality: left (lower) Cardio: COMMON NORMALS: no JVD, regular rhythm, S1 normal heart sound present, S2 normal heart sound present and No murmurs present (Cardio) RHYTHM: regular rhythm and abnormal rhythm HEART SOUNDS: S1 normal heart sound present and S2 normal heart sound present GI: COMMON NORMALS: Normal to inspection, nondistended, normoactive bowel sounds present, Soft to palpation and non-tender PALPATION: Yes Soft to palpation Extremity: COMMON NORMALS: no joint enlargement and no pedal edema Neuro: COMMON NORMALS: patient oriented x3 and moves all extremities S ENSORIUM/ORIENTATION: Yes alert Skin: COMMON NORMALS: no rashes or lesions noted GENERAL SKIN EXAM: no rashes or lesions noted Data 05/11/24 04:44 05/11/24 04:44 Micro: Microbiology 05/09/24 20:04 Gram Stain - Final Sputum - Expectorated Sputum Sputum Culture - Preliminary 05/09/24 14:48 Blood Culture - Preliminary Blood NEGATIVE TO DATE 05/09/24 13:15 Blood Culture - Preliminary Blood NEGATIVE TO DATE 05/09/24 19:05 Legionella Urinary Antigen - Final Urine,Voided Bacterial Antigens - Final A&P Assessment and plan (1) Community acquired pneumonia: Noted mild leukopenia, neutrophils still normal. Noted lymphopenia. Suspect likely secondary to coronavirus infection. Reviewed chemistry, renal function, liver parameters so far normal. Reviewed magnesium, normal. Community-acquired pneumonia with fever, productive cough, dyspnea, with A-fib with RVR, reviewed vitals, CBC, CMP, rapid COVID-19, chest x-ray, chest CT, noted left lower lobe pneumonia. Hiatal hernia. Reviewed ER note, discussed with ER provider. He denies any overt aspiration with food or drink. Usually sleeps upright in the chair. Started on ceftriaxone, azithromycin. Continue for community-acquired pneumonia. Check EKG, monitor for risk of QT punctation with azithromycin. Monitor vitals, oxygenation. Obtain sputum culture. Obtain urine Legionella antigen, urine bacterial antigens. (2) Coronavirus infection: Start remdesivir, no steroid at current time. Reassess oxygenation, condition. Antitussive as needed. He is on Eliquis. (3) Atrial fibrillation with RVR: Reviewed digoxin level, low. Had to be resumed on Cardizem drip this morning with tachycardia. Continue metoprolol. Will give additional loading dose of digoxin 0.25 mg IV. Continue oral digoxin. Continue Cardizem drip. Resume metoprolol, digoxin. Check digoxin level. Continue Eliquis. (4) Decompensated heart failure: Continue IV Lasix here 40 mg IV twice daily. Monitor for risk of electrolyte deficiency, DILLON. Monitor acute output. Recheck chemistry. Reviewed magnesium. Monitor on telemetry. (5) Acute exacerbation of chronic obstructive pulmonary disease: Add DuoNebs. Flutter valve. Acute severe exacerbation of COPD with cough, dyspnea, purulent copious sputum with productive cough, wheezing on exam, diminished air entry. Antibiotic coverage as above. Collect urine culture. Additional assessment as above. Solu-Medrol IV 40 mg every 8 hours. Monitor for risk of encephalopathy, hyperglycemia, hypertension, gastritis. Plan CAD, HTN, HLD, A-fib, Hypothyroidism, Hiatal hernia Plan for the day: Continue with IV remdesivir for COVID-19. Wean Solu-Medrol to 40 mg twice daily. Start on Pulmicort twice daily. Continue with DuoNeb every 6 hour. Change from as needed to scheduled. Heart rate better controlled. Check digoxin level. Continue with home dose of digoxin for now. Continue with home dose of metoprolol. Follow-up sputum culture. Continue with IV ceftriaxone and azithromycin. Will finish a 3-day course with azithromycin. Patient becoming euvolemic. Continue with IV Lasix for 1 more day. Strict input charting. Fluid restriction to less than 1500 cc. Discharge plan: Plan to discharge after completion of 3 to 5 days of IV remdesivir depending on oxygen requirement back home. Full code Cardiac diet Protonix for PUD prophylaxis Eliquis will be sufficient for DVT prophylaxis. Attestations 2 Medical Necessity Statement*: Requires further hospitalization for management of hypoxia in setting of COVID- 19, COPD exacerbation, A-fib with RVR Diagnoses Community acquired pneumonia J18.9 Coronavirus infection B34.2 Atrial fibrillation with RVR I48.91 Decompensated heart failure I50.9 Acute exacerbation of chronic obstructive pulmonary disease J44.1
[2024-05-11] MEDS: AZITHROMYCIN ADD-Vantage 500 MG in 0.9% NaCl ADD-Vantage 250 ML 250 MG IV (15:31)
--- NOTE | 2024-05-11 16:31 | ECG_ITS ---
[facility] Test Date: 2024-05-11 Pat Name: Gabino Jones Department: Room: 104 Gender: Male Med Admin: : 1955 Requested By: Fran Wyatt Order Number: [id number] Mick MD: Mathew Sanchez M.D. Measurements Intervals Mccrory Rate: 82 P: 0 ND: 0 QRS: -5 QRSD: 138 T: 10 QT: 402 QTc: 471 Interpretive Statements ATRIAL FIBRILLATION WITH ABERRANT CONDUCTION OR VENTRICULAR PREMATURE COMPLEXES RIGHT BUNDLE BRANCH BLOCK [120+ ms QRS DURATION, UPRIGHT V1, 40+ ms S IN I/aVL/V4/V5/V6] INFERIOR MYOCARDIAL INFARCTION , PROBABLY OLD [40+ ms Q WAVE AND/OR ST/T ABNORMALITY IN II/aVF] Compared to ECG 05/10/2024 13:11:35 Ventricular premature complex(es) now present Aberrant conduction of supraventricular beat(s) now present Myocardial infarct finding still present Electronically Signed On 05-13-2024 01:03:05 MANUFACTURING AREA MANAGER by Mathew Sanchez M.D. [email or web address]
--- NOTE | 2024-05-11 16:51 | USCV_ITS ---
Gabino Jones Age: 68 Gender: M : 1955 Exam Date: 05/11/2024 21:30 Ordering Phys: Fran Wyatt MD Technologist: BARON [place] [facility] [place]: chest pain, positive stress test, history of Afib, COPD, patient is in COVID isolation BP: 110 / 56 HR: 71 Rhythm: Atrial fibrillation Technical Quality: Adequate MEASUREMENTS (Male / Female) Normal Values 2D ECHO LV Diastolic Diameter PLAX 3.9 cm 4.2 - 5.9 / 3.9 - 5.3 cm IVS Diastolic Thickness 1.8 cm 0.6 - 1.0 / 0.6 - 0.9 cm IVS Systolic Thickness 2.2 cm LVPW Diastolic Thickness 1.6 cm 0.6 - 1.0 / 0.6 - 0.9 cm LVPW Systolic Thickness 1.7 cm LVOT Diameter 2.2 cm LV Ejection Fraction 2D Teich 61.6 % LV Ejection Fraction MOD 4C 68.3 % LV Ejection Fraction MOD 2C 53.0 % LV Ejection Fraction 2C AL 54.4 % LA Diameter 4.2 cm LA Sys Volume AL 124.2 cm cubed LA Sys Volume Index AL 57.2 cm cubed/m squared Aorta at Sinotubular Diameter 3.6 cm IVC Diameter 1.2 cm DOPPLER AV Peak Velocity 98.0 cm/s LVOT Peak Velocity 82.0 cm/s AV Area Cont Eq vti 3.4 cm squared AV Area Cont Eq pk 3.1 cm squared MV Peak Velocity 97.0 cm/s MV Area PHT 3.3 cm squared Mitral E to A Ratio 769.0 TV Peak Velocity 160.3 cm/s TR Peak Velocity 220.0 cm/s TR Peak Gradient 19.4 mmHg PV Peak Velocity 79.0 cm/s FINDINGS Left Ventricle Mild left ventricular hypertrophy. Abnormal septal motion consistent with conduction abnormality. LV ejection fraction around 60% Right Ventricle The right ventricle is normal in size and function. Right Atrium Mildly increased right atrial size. Left Atrium Mildly increased left atrial size. Mitral Valve No gross abnormalities noted Aortic Valve Trace aortic valve regurgitation. Tricuspid Valve Trace tricuspid valve regurgitation. Estimated pulmonary artery peak systolic pressure 22 mmHg Pulmonic Valve No gross abnormalities noted Pericardium Normal pericardium without effusion. Aorta Normal ascending aorta dimension. IVC Inferior vena cava not visualized. CONCLUSIONS Mild left ventricular hypertrophy. Abnormal septal motion consistent with conduction abnormality. LV ejection fraction around 60%. Mild biatrial enlargement. Trace aortic valve regurgitation. Trace tricuspid valve regurgitation. Estimated pulmonary artery peak systolic pressure 22 mmHg. There is no pericardial effusion. There are no intracardiac masses. Compared to the study from 06/18/2023, there may not be a significant change Dr Mathew Sanchez MD [facility] (Electronically Signed) Final Date: 12 May 2024 07:38 S
[2024-05-11 17:28] LABS: Glucose Point of Care 328 mg/dL (70-110)
[2024-05-11 20:36] LABS: Glucose Point of Care 344 mg/dL (70-110)
[2024-05-12] VITALS (14 sets, daily range): BP systolic 91–136; BP diastolic 56–86; PULSE 70–92; RESP 14–24; TEMP 36.4–37; O2SAT 91–98
[2024-05-12 04:01] LABS: Hematocrit 36.1 % (37-53); Lymphocytes # 0.4 10^3/uL (0.8-4.8); Lymphocytes % 7.3 %; Mean Corpuscular HGB Conc 32.1 g/dL (30-55); Mean Corpuscular Hemoglobin 30.2 pg (27-33); Mean Platelet Volume 10.1 fL (7.4-10.4); Monocytes # 0.3 10^3/uL (0.2-0.9); Monocytes % 5.5 %; Neutrophils # 5.22 10^3/uL (1.8-7.7); Neutrophils % 86.7 %; Nucleated Red Blood Cells % 0 %; Platelet Count 189 10^3/cmm (157-399); Red Blood Count 3.84 10^6/uL (3.85-5.65); Red Cell Distribution Width 15.1 % (12.1-15.1); White Blood Count 6.02 10^3/uL (3.29-11.43)
[2024-05-12 04:30] LABS: Alanine Aminotransferase 32 U/L (0-41); Albumin Level 3.5 g/dL (3.5-5.2); Alkaline Phosphatase 76 U/L (40-130); Anion Gap 14.2 (5-19); Aspartate Amino Transferase 22 U/L (0-40); Blood Urea Nitrogen 43 mg/dL (8-23); Calcium 9.4 mg/dL (8.5-10.5); Carbon Dioxide 31 mmol/L (22-29); Chloride 98 mmol/L (98-107); Chol HDL Ratio 5.59 mg/dL (1.0-5.00); Cholesterol 162 mg/dL (0-200); Creatinine Clr Calc Pharmacy 66.8117; Globulin 2.8 g/dL (1.3-4.6); Glucose 297 mg/dL (65-115); HDL Cholesterol 29 mg/dL (60-100); LDL Cholesterol Calculated 112 mg/dL (50-129); Magnesium 2.5 mg/dL (1.7-2.3); Osmolality Calculated 310 mOsm/kg (285-295); Potassium 4.2 mmol/L (3.5-5.1); Sodium 139 mmol/L (136-145); Total Bilirubin 0.2 mg/dL (0.15-1.2); Total Protein 6.3 g/dL (6.6-8.7); Triglycerides 107 mg/dL (0-150); VLDL Cholestrol Calculation 21 mg/dL (0-30)
[2024-05-12 04:46] LABS: Folate Level 10.1 ng/mL (4.5-32.2)
[2024-05-12] MEDS: FUROsemide 10 mg/mL SDV 4mL 40 MG IVP (04:55)
[2024-05-12] MEDS: digoxin 250 mcg Tablet PO (05:03)
[2024-05-12] MEDS: pantoprazole DR 40 mg Tablet PO (05:03)
[2024-05-12] MEDS: aspirin 325 mg Tablet PO (05:03)
[2024-05-12 06:22] LABS: Glucose Point of Care 242 mg/dL (70-110)
[2024-05-12] MEDS: ipratropium-albuterol 3 mL Neb INHALATION ×3 (07:58→20:34)
[2024-05-12] MEDS: insulin lispro 100 unit/1 mL SUBCUT ×4 (08:50→21:04)
[2024-05-12] MEDS: methylPREDNISolone sod succ 40 mg/mL INJ IVP ×2 (08:50→17:13)
[2024-05-12] MEDS: metoprolol tartrate 50 mg Tablet 100 MG PO ×2 (08:50→17:12)
[2024-05-12] MEDS: apixaban 5 mg Tablet PO ×2 (08:50→17:12)
[2024-05-12] MEDS: tamsulosin 0.4 mg Capsule PO ×2 (08:50→17:12)
[2024-05-12] MEDS: cefTRIAXone 1,000 mg SDV 1000 MG IVP (08:51)
[2024-05-12 12:37] LABS: Glucose Point of Care 345 mg/dL (70-110)
[2024-05-12] MEDS: remdesivir 100 MG in sodium chloride 0.9% (100 ml) 80 ML IV (13:06)
--- NOTE | 2024-05-12 14:06 | P.PN_ITS ---
Subjective 2 Subjective: No acute vents overnight. Patient has remained at his baseline oxygen supplementation up to 2 L currently both at rest on exertion. He did have episode of chest pain yesterday. He states he have these pains on and off at home as well which subsides with nitrates. He states he had tachycardia during the episode but could not find the event on the vehicle monitor technician. Patient's heart rate is better today than yesterday. Vitals/I&O/Wt Last Vital Signs Temp 97.5 F L 05/12/24 11:23 Pulse 83 05/12/24 13:33 Resp 16 05/12/24 13:32 BP 100/65 05/12/24 11:23 Pulse Ox 98 05/12/24 13:32 O2 Del Method Room Air 05/12/24 13:32 O2 Flow Rate 2 05/12/24 11:23 05/11/24 05/12/24 05/12/24 22:59 06:59 14:59 Intake Total 930 / 1288 360 / 1648 240 / 240 Output Total 600 / 600 400 / 1000 Balance 330 / 688 -40 / 648 240 / 240 Weight last 48 hrs Weight 95.889 kg Weight 95.889 kg Weight 93.758 kg Physical Exam 2 Const: COMMON NORMALS: patient oriented x3 and alert GENERAL APPEARANCE: c ooperative ORIENTATION/CONSCIOUSNESS: Yes awake HENMT: COMMON NORMALS: oropharynx normal Neck/C-Spine: COMMON NORMALS: no JVD Resp: COMMON NORMALS: normal respiratory effort and clear to auscultation bilaterally AUSCULTATION: clear to auscultation bilaterally and crackles Laterality: left (lower) Cardio: COMMON NORMALS: no JVD, regular rhythm, S1 normal heart sound present, S2 normal heart sound present and No murmurs present (Cardio) RHYTHM: regular rhythm and abnormal rhythm HEART SOUNDS: S1 normal heart sound present and S2 normal heart sound present GI: COMMON NORMALS: Normal to inspection, nondistended, normoactive bowel sounds present, Soft to palpation and non-tender PALPATION: Yes Soft to palpation Extremity: COMMON NORMALS: no joint enlargement and no pedal edema Neuro: COMMON NORMALS: patient oriented x3 and moves all extremities S ENSORIUM/ORIENTATION: Yes alert Skin: COMMON NORMALS: no rashes or lesions noted GENERAL SKIN EXAM: no rashes or lesions noted Data 05/12/24 03:16 05/12/24 03:16 Micro: Microbiology 05/09/24 14:48 Blood Culture - Preliminary Blood Corynebacterium Species 05/09/24 20:04 Gram Stain - Final Sputum - Expectorated Sputum Sputum Culture - Final A&P Assessment and plan (1) Community acquired pneumonia: Noted mild leukopenia, neutrophils still normal. Noted lymphopenia. Suspect likely secondary to coronavirus infection. Reviewed chemistry, renal function, liver parameters so far normal. Reviewed magnesium, normal. Community-acquired pneumonia with fever, productive cough, dyspnea, with A-fib with RVR, reviewed vitals, CBC, CMP, rapid COVID-19, chest x-ray, chest CT, noted left lower lobe pneumonia. Hiatal hernia. Reviewed ER note, discussed with ER provider. He denies any overt aspiration with food or drink. Usually sleeps upright in the chair. Started on ceftriaxone, azithromycin. Continue for community-acquired pneumonia. Check EKG, monitor for risk of QT punctation with azithromycin. Monitor vitals, oxygenation. Obtain sputum culture. Obtain urine Legionella antigen, urine bacterial antigens. (2) Coronavirus infection: Start remdesivir, no steroid at current time. Reassess oxygenation, condition. Antitussive as needed. He is on Eliquis. (3) Atrial fibrillation with RVR: Reviewed digoxin level, low. Had to be resumed on Cardizem drip this morning with tachycardia. Continue metoprolol. Will give additional loading dose of digoxin 0.25 mg IV. Continue oral digoxin. Continue Cardizem drip. Resume metoprolol, digoxin. Check digoxin level. Continue Eliquis. (4) Decompensated heart failure: Continue IV Lasix here 40 mg IV twice daily. Monitor for risk of electrolyte deficiency, DILLON. Monitor acute output. Recheck chemistry. Reviewed magnesium. Monitor on telemetry. (5) Acute exacerbation of chronic obstructive pulmonary disease: Add DuoNebs. Flutter valve. Acute severe exacerbation of COPD with cough, dyspnea, purulent copious sputum with productive cough, wheezing on exam, diminished air entry. Antibiotic coverage as above. Collect urine culture. Additional assessment as above. Solu-Medrol IV 40 mg every 8 hours. Monitor for risk of encephalopathy, hyperglycemia, hypertension, gastritis. Plan CAD, HTN, HLD, A-fib, Hypothyroidism, Hiatal hernia Plan for the day: Oxygen supplementation keeping saturation more than 90%. Continue with IV remdesivir. If patient remains on baseline of supplementation we will plan to do a 3-day course. Continue with Solu-Medrol 40 mg IV daily. Heart rate better controlled. Continue with oral digoxin and metoprolol at home dose. Patient seems more euvolemic now. Switch to oral Lasix 40 mg daily from IV. Continue with fluid restriction. Since stress continue nebulization treatment. Monitor for chest pain. Appreciate recent stress test earlier this year which showed mild to minimal guy-infarct ischemia in RCA territory. We advised patient to follow-up with cardiology team as an outpatient. Discharge plan: Plan to discharge in next 24 hours patient remains on baseline oxygen supplementation after the dose of remdesivir tomorrow. Full code Cardiac diet Protonix for PUD prophylaxis Eliquis will be sufficient for DVT prophylaxis. Attestations 2 Medical Necessity Statement*: Requires further hospitalization for management of hypoxia in setting of COVID- 19, afebrile volume, congestive heart failure Diagnoses Community acquired pneumonia J18.9 Coronavirus infection B34.2 Atrial fibrillation with RVR I48.91 Decompensated heart failure I50.9 Acute exacerbation of chronic obstructive pulmonary disease J44.1
[2024-05-12] MEDS: AZITHROMYCIN ADD-Vantage 500 MG in 0.9% NaCl ADD-Vantage 250 ML 250 MG IV (15:36)
[2024-05-12 16:07] LABS: Glucose Point of Care 315 mg/dL (70-110)
[2024-05-12 20:23] LABS: Glucose Point of Care 359 mg/dL (70-110)
[2024-05-13] VITALS (10 sets, daily range): BP systolic 128–154; BP diastolic 51–85; PULSE 71–93; RESP 14–24; TEMP 36.3–37.2; O2SAT 92–96
[2024-05-13] MEDS: ipratropium-albuterol 3 mL Neb INHALATION ×3 (03:20→13:46)
[2024-05-13 03:54] LABS: Hematocrit 38.4 % (37-53); Lymphocytes # 0.5 10^3/uL (0.8-4.8); Lymphocytes % 9.1 %; Mean Corpuscular HGB Conc 31.5 g/dL (30-55); Mean Corpuscular Hemoglobin 29.7 pg (27-33); Mean Corpuscular Volume 94.3 fl (82-101); Mean Platelet Volume 10.4 fL (7.4-10.4); Monocytes # 0.3 10^3/uL (0.2-0.9); Monocytes % 5.4 %; Neutrophils # 4.52 10^3/uL (1.8-7.7); Neutrophils % 83.8 %; Nucleated Red Blood Cells % 0 %; Platelet Count 185 10^3/cmm (157-399); Red Blood Count 4.07 10^6/uL (3.85-5.65); Red Cell Distribution Width 14.6 % (12.1-15.1); White Blood Count 5.39 10^3/uL (3.29-11.43)
[2024-05-13 04:09] LABS: Alanine Aminotransferase 30 U/L (0-41); Albumin Level 3.3 g/dL (3.5-5.2); Alkaline Phosphatase 74 U/L (40-130); Anion Gap 12.5 (5-19); Aspartate Amino Transferase 16 U/L (0-40); Blood Urea Nitrogen 41 mg/dL (8-23); Calcium 9.3 mg/dL (8.5-10.5); Carbon Dioxide 32 mmol/L (22-29); Chloride 100 mmol/L (98-107); Creatinine Clr Calc Pharmacy 81.0146; Globulin 2.9 g/dL (1.3-4.6); Glomerular Filtration Rate 74.1 mL/min (90-130); Glucose 259 mg/dL (65-115); Osmolality Calculated 309 mOsm/kg (285-295); Potassium 4.5 mmol/L (3.5-5.1); Sodium 140 mmol/L (136-145); Total Bilirubin 0.2 mg/dL (0.15-1.2); Total Protein 6.2 g/dL (6.6-8.7)
[2024-05-13 04:19] LABS: Magnesium 2.6 mg/dL (1.7-2.3)
[2024-05-13 06:20] LABS: Glucose Point of Care 229 mg/dL (70-110)
[2024-05-13] MEDS: pantoprazole DR 40 mg Tablet PO (06:32)
[2024-05-13] MEDS: aspirin 325 mg Tablet PO (06:32)
[2024-05-13] MEDS: digoxin 250 mcg Tablet PO (06:32)
[2024-05-13] MEDS: tamsulosin 0.4 mg Capsule PO (08:43)
[2024-05-13] MEDS: apixaban 5 mg Tablet PO (08:43)
[2024-05-13] MEDS: cefTRIAXone 1,000 mg SDV 1000 MG IVP (08:43)
[2024-05-13] MEDS: methylPREDNISolone sod succ 40 mg/mL INJ IVP (08:43)
[2024-05-13] MEDS: metoprolol tartrate 50 mg Tablet 100 MG PO (08:43)
[2024-05-13] MEDS: FUROsemide 40 mg Tablet PO (08:44)
[2024-05-13] MEDS: insulin lispro 100 unit/1 mL SUBCUT ×2 (08:44→11:43)
[2024-05-13] MEDS: remdesivir 100 MG in sodium chloride 0.9% (100 ml) 80 ML IV (11:43)
[2024-05-13 11:46] LABS: Glucose Point of Care 374 mg/dL (70-110)
--- NOTE | 2024-05-13 11:55 | PC.SOCIAL ---
IMM Update Pg. 2 of IMM updated. Initialed, dated, and timed, copy provided at bedside.
--- NOTE | 2024-05-13 13:28 | P.DS_ITS ---
Discharge Providers Date of Admission: 05/09/24 14:27 Date of Discharge: May 13, 2024 Attending Provider at Admission: Tam Ritchie Attending Provider at Discharge: Fran Wyatt MD Primary Care Provider: PATO Hernandez Diagnoses at Discharge Discharge Diagnosis (1) Community acquired pneumonia: Status: Acute (2) Coronavirus infection: Status: Acute (3) Atrial fibrillation with RVR: Status: Acute (4) Decompensated heart failure: Status: Acute (5) Acute exacerbation of chronic obstructive pulmonary disease: Status: Acute Reason for Visit Reason for Visit: COUGHING UP BLOOD Brief History: History as per HPI: Pleasant 68-year-old gentleman with history of COPD, CHF, CAD, HTN, HLD, A-fib, hypothyroidism, hiatal hernia presented to ER due to dyspnea, cough in the last 2 days coughing up copious phlegm, with low-grade fever, on presentation found to have temp 99.9, without leukocytosis, with left lower lobe infiltrate suggestive of pneumonia, additional incidental findings on CT including emphysema, biapical pleural-parenchymal fibrosis, moderate hiatal hernia, incidentally found proximal celiac and superior mesenteric artery atherosclerosis claudications with 60 to 70% luminal narrowing. In ER he is also found to have atrial fibrillation with RVR heart rate up into 160s. Blood cultures were collected, he received ceftriaxone, Zithromycin dose of Solu- Medrol, and fluid bolus of 1 L, received IV push of Cardizem and started on Cardizem drip. Due to known history of hiatal hernia usually sleeps in a recliner. He has missed some of his medications in the last several days. Hospital Course Hospital Course Patient was admitted to the hospital further evaluation and management of hypoxia in setting of community-acquired pneumonia. He was found to be positive for COVID-19. He was started on broad-spectrum antibiotics, nebulization treatment, steroids along with IV remdesivir as per COVID-19 protocols. During hospitalization he was found to be in A-fib with RVR for which initially he started on Cardizem drip additionally he was transitioned over to his home dose of metoprolol and digoxin. He was found to have subtherapeutic levels of digoxin for which she required extra IV digoxin push after which his heart rate has been stable. Patient has been back to his baseline oxygen supplementation over the last 48 hours. He has received 4 days of IV remdesivir. Echocardiogram was done which showed mild LVH with a EF of 60%, biatrial enlargement, trace TR with PASP of 22 mmHg. He is been discharged in medically stable condition on oral steroids, relation treatment for next 2 weeks, oral Levaquin for next 1 week. During hospitalization he was found to be diabetic for which she has been started on new Farxiga and Lantus 10 units twice daily. He is to check his blood sugars daily at home maintain a blood sugar diary and follow-up with a primary care provider within next 2 weeks with blood sugar diary for further adjustment of oral hypoglycemics. Physical Exam Const: COMMON NORMALS: patient oriented x3 and alert GENERAL APPEARANCE: cooperative ORIENTATION/CONSCIOUSNESS: Yes awake HENMT: COMMON NORMALS: oropharynx normal Neck/C-Spine: COMMON NORMALS: no JVD Resp: COMMON NORMALS: normal respiratory effort and clear to auscultation bilaterally AUSCULTATION: clear to auscultation bilaterally and crackles Laterality: left (lower) Cardio: COMMON NORMALS: no JVD, regular rhythm, S1 normal heart sound present, S2 normal heart sound present and No murmurs present (Cardio) RHYTHM: regular rhythm and abnormal rhythm HEART SOUNDS: S1 normal heart sound present and S2 normal heart sound present GI: COMMON NORMALS: Normal to inspection, nondistended, normoactive bowel sounds present, Soft to palpation and non-tender PALPATION: Yes Soft to palpation Extremity: COMMON NORMALS: no joint enlargement and no pedal edema Neuro: COMMON NORMALS: patient oriented x3 and moves all extremities SENSORIUM/ORIENTATION: Yes alert Skin: COMMON NORMALS: no rashes or lesions noted GENERAL SKIN EXAM: no ra shes or lesions noted Discharge Data Studies Completed and Pending Completed Studies During Hospitalization Category Date Time Status CT angio chest PE protcl [id number] Stat Cat Scan 05/09/24 13:01 Completed XR chest 1V portable [id number] Stat Exams 05/09/24 13:01 Completed CV. echo limited [id number] Routine Ultrasound 05/11/24 16:51 Completed Pending at discharge Category Date Time Status Blood Culture Stat Lab 05/09/24 13:15 Results MAG [Magnesium] AM LABS Lab 05/14/24 04:00 Ordered Radiology Impressions Chest CTA 05/09/24 13:01 IMPRESSION: 1. Negative for pulmonary embolus. 2. CABG changes. 3. Hepatic steatosis. 4. Cholecystectomy. 5. Emphysematous changes. 6. Left lower lobe pneumonia. 7. Biapical pleural-parenchymal fibrosis. 8. Moderate hiatal hernia. 9. Proximal celiac and superior mesenteric artery atherosclerotic calcifications with 60-70% luminal narrowing COMMENTS: The presence of pulmonary emphysema on CT is an independent risk factor for lung cancer. In the absence of a history or active diagnosis of lung cancer, it is recommended that this patient with emphysema be evaluated for enrollment in a low dose CT lung cancer screening program. Chest X-Ray 05/09/24 13:01 IMPRESSION: 1. Left lower lobe pneumonia suspected. 2. Emphysematous changes. 3. Cardiomegaly. 4. Sternotomy wires. Echocardiogram: CONCLUSIONS Mild left ventricular hypertrophy. Abnormal septal motion consistent with conduction abnormality. LV ejection fraction around 60%. Mild biatrial enlargement. Trace aortic valve regurgitation. Trace tricuspid valve regurgitation. Estimated pulmonary artery peak systolic pressure 22 mmHg. There is no pericardial effusion. There are no intracardiac masses. Compared to the study from 06/18/2023, there may not be a significant change Dr Mathew Sanchez MD [facility] (Electronically Signed) Final Date: 12 May 2024 07:38 Laboratory Results WBC 5.39 10^3/uL (3.29-11.43) 05/13/24 03:15 RBC 4.07 10^6/uL (3.85-5.65) 05/13/24 03:15 Hgb 12.10 g/dL (11.27-16.99) 05/13/24 03:15 Hct 38.4 % (37-53) 05/13/24 03:15 MCV 94.3 fl (82-101) 05/13/24 03:15 MCH 29.7 pg (27-33) 05/13/24 03:15 MCHC 31.5 g/dL (30-55) 05/13/24 03:15 RDW 14.6 % (12.1-15.1) 05/13/24 03:15 Plt Count 185 10^3/cmm (157-399) 05/13/24 03:15 MPV 10.4 fL (7.4-10.4) 05/13/24 03:15 Neut % (Auto) 83.8 % 05/13/24 03:15 Lymph % (Auto) 9.1 % 05/13/24 03:15 [place] % (Auto) 5.4 % 05/13/24 03:15 Eos % (Auto) 0.0 % 05/13/24 03:15 Baso % (Auto) 0.0 % 05/13/24 03:15 Neut # (Auto) 4.52 10^3/uL (1.8-7.7) 05/13/24 03:15 Lymph # (Auto) 0.5 10^3/uL (0.8-4.8) L 05/13/24 03:15 [place] # (Auto) 0.3 10^3/uL (0.2-0.9) 05/13/24 03:15 Eos # (Auto) 0.0 10^3/uL (0.0-0.8) 05/13/24 03:15 Baso # (Auto) 0.0 10^3/uL (0.0-0.1) 05/13/24 03:15 Nucleated RBC % (auto) 0 % 05/13/24 03:15 Nucleated RBCs # 0.0 /100WBC 05/13/24 03:15 Sodium 140 mmol/L (136-145) 05/13/24 03:15 Potassium 4.5 mmol/L (3.5-5.1) 05/13/24 03:15 Chloride 100 mmol/L (98-107) 05/13/24 03:15 Carbon Dioxide 32 mmol/L (22-29) H 05/13/24 03:15 Anion Gap 12.5 (5-19) 05/13/24 03:15 BUN 41 mg/dL (8-23) H 05/13/24 03:15 Creatinine 1.0 mg/dL (0.7-1.2) 05/13/24 03:15 GFR Calculation 74.1 mL/min (90-130) L 05/13/24 03:15 Glucose 259 mg/dL (65-115) H 05/13/24 03:15 POC Glucose 374 mg/dL (70-110) H 05/13/24 11:02 Estimat Average Glucose 183 05/11/24 04:44 Hemoglobin A1c 8.0 % (4.0-6.0) H 05/11/24 04:44 Calculated Osmolality 309 mOsm/kg (285-295) H 05/13/24 03:15 Calcium 9.3 mg/dL (8.5-10.5) 05/13/24 03:15 Magnesium 2.6 mg/dL (1.7-2.3) H 05/13/24 03:15 Iron 37 ug/dL (59-158) L 05/11/24 04:44 TIBC 190 mcg/dl 05/11/24 04:44 % Saturation 19.4 % (20-50) L 05/11/24 04:44 Unsat Iron Binding 153 ug/dL (112-347) 05/11/24 04:44 Total Bilirubin 0.2 mg/dL (0.15-1.2) 05/13/24 03:15 AST 16 U/L (0-40) 05/13/24 03:15 ALT 30 U/L (0-41) 05/13/24 03:15 Alkaline Phosphatase 74 U/L (40-130) 05/13/24 03:15 NT-Pro-B Natriuret Pep 2179 pg/mL (0-125) H 05/09/24 13:15 Total Protein 6.2 g/dL (6.6-8.7) L 05/13/24 03:15 Albumin 3.3 g/dL (3.5-5.2) L 05/13/24 03:15 Globulin 2.9 g/dL (1.3-4.6) 05/13/24 03:15 Triglycerides 107 mg/dL (0-150) 05/12/24 03:16 Cholesterol 162 mg/dL (0-200) 05/12/24 03:16 LDL Cholesterol, Calc 112 mg/dL (50-129) 05/12/24 03:16 Total VLDL Cholesterol 21 mg/dL (0-30) 05/12/24 03:16 HDL Cholesterol 29 mg/dL (60-100) L 05/12/24 03:16 Cholesterol/HDL Ratio 5.59 mg/dL (1.0-5.00) H 05/12/24 03:16 Vitamin B12 346 pg/mL (232-1245) 05/11/24 04:44 Folate 10.1 ng/mL (4.5-32.2) 05/12/24 03:16 Procalcitonin 0.15 ng/mL (0-0.5) 05/11/24 04:44 TSH 0.44 uIU/mL (0.27-4.20) 05/11/24 04:44 Digoxin 0.8 ng/mL (0.6-1.2) 05/11/24 04:44 Coronavirus (PCR) Positive (Negative) A 05/09/24 19:05 Influenza A (PCR) Negative (Negative) 05/09/24 19:05 Influenza Type B (PCR) Negative (Negative) 05/09/24 19:05 RSV (PCR) Negative (Negative) 05/09/24 19:05 SARS-CoV-2 Ag (Rapid) Negative (Negative) 05/09/24 13:32 Vitals Last Vital Signs Temp 97.3 F L 05/13/24 11:08 Pulse 78 05/13/24 11:08 Resp 24 H 05/13/24 11:08 BP 128/55 05/13/24 11:08 Pulse Ox 92 05/13/24 11:08 O2 Del Method Room Air 05/13/24 11:08 O2 Flow Rate 2 05/12/24 11:23 Discharge Plan Discharge Patient Disposition: Home Condition: Stable Prescriptions: New dexamethasone 6 mg tablet 6 mg PO DAILY Qty: 10 0RF levofloxacin 750 mg tablet 750 mg PO Q24H 7 Days Qty: 7 0RF (DME) pen needle, diabetic [BD Ultra-Fine Micro Pen Needle] 32 gauge x 1/4 needle See Rx Instructions .ROUTE .MEDSUPPLY Qty: 50 0RF Rx Instructions: As directed (DME) lancets Misc See Rx Instructions .ROUTE .MEDSUPPLY Qty: 100 0RF Rx Instructions: As directed (DME) blood-glucose meter [Blood Glucose Monitoring] Kit See Rx Instructions .ROUTE .MEDSUPPLY Qty: 1 0RF Rx Instructions: As directed dapagliflozin propanediol [Farxiga] 10 mg tablet 10 mg PO DAILY Qty: 30 0RF insulin glargine [Lantus Solostar U-100 Insulin] 100 unit/mL (3 mL) insulin pen 10 unit SUBCUT BID Qty: 15 0RF fluticasone propion-salmeterol [Advair Diskus] 100-50 mcg/dose blister with device 1 inh inhalation DAILY Qty: 60 0RF Spiriva Respimat 1.25 mcg/actuation mist 2 inh inhalation Q24H Qty: 4 0RF Continued diclofenac sodium 1 % gel 4 g topical QID Qty: 100 3RF Rx Instructions: apply to single knee, ankle, foot; for foot includes sole/toes/top of foot aspirin 325 mg tablet 325 mg PO QAM Hold Instructions: Resume on 04/24/22. Eliquis 5 mg Tablet 5 mg PO BID Qty: 60 0RF Hold Instructions: Resume on 04/21/22. omeprazole 20 mg capsule,delayed release(DR/EC) 40 mg PO QAM potassium chloride 20 mEq Tablet Extended Release 10 meq PO QAM furosemide [Lasix] 40 mg tablet 40 mg PO QAM Flomax 0.4 mg capsule 0.4 mg PO BID albuterol sulfate 90 mcg/actuation HFA aerosol inhaler 2 inh INHALATION Q4H PRN (Reason: shortness of breath or wheezing) Qty: 18 0RF loratadine 10 mg tablet 10 mg PO QAM nitroglycerin [Nitrostat] 0.4 mg Tablet, Sublingual 0.4 mg SUBLINGUAL Q5M PRN (Reason: Chest Pain) Rx Instructions: do not exceed 3 doses per episode digoxin 250 mcg (0.25 mg) tablet 250 mcg PO QAM metoprolol tartrate 100 mg tablet 100 mg PO BID Qty: 60 0RF Discontinued prednisone 5 mg tablet 5 mg PO QAM Discharge Orders: Discharge Order (Routine); Ordered 05/13/24 Ordered By: Fran Wyatt Referrals: Eduarda Pickard FNP- [Physician Battery Checker] - (We have notified your physician's clinic of the need for a follow-up appointment to be scheduled. If you have not heard from them within the next 2 business days, please call them directly. ) Isela Gipson FNP [Primary Care Provider] - 05/20/24 9:30 am Discharge Diet: Cardiac and Diabetic Discharge Activity: Resume usual activity and Increase activity as tolerated Patient Instructions: COPD, Heart Failure (DC), A-fib (Atrial Fibrillation) (DC), Viral Pneumonia (DC), SARS (Severe Acute Respiratory Syndrome) (DC), How To Wash Your Hands (DC), Droplet Precautions (GEN), Opioid Safety Activity Restrictions/Additional Instructions: Advised to take inhalation treatment with Advair and Spiriva daily for next 2 weeks. Advised to continue working with incentive spirometry and flutter valve while at home. Advised to continue taking dexamethasone 6 mg for next 10 days. Advised to follow-up with his primary care provider within the next 4 to 7 d ays. Can take COVID-19 vaccination in 3 months. Advised to continue following social distancing and isolation protocol for next 10 days. Advised to come back to the ER if fever of more than 101 Fahrenheit, more difficulty breathing than usual or requiring higher oxygen supplementation. Levaquin is the antibiotic which you will take for next 7 days. You also have diabetes. You need to be on Farxiga which is the oral medication and Lantus 10 units twice daily which is a long-acting insulin. Please check your blood sugars daily at home when you wake up and maintain a blood sugar diary and follow-up with a PCP within next 2 weeks for further adjustment of antidiabetic medications. Discharge Attestations Time Spent in Discharge Care*: greater than 30 min Specific Discharge Activities: educating patient, discussing with pcp/other providers, discussing with outpatient case manager/social workers/dc planners, documenting/other paperwork and evaluating patient/reviewing data Status at Discharge: Cognitive status at discharge: cognitively intact , Behavioral status at discharge: cooperative , Quality Metrics Clinical Quality Measures [ No reported AMI, CVA or VTE this stay] 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 of Care Code 38799 Total time (in minutes) for Discharge: 70 Diagnoses Community acquired pneumonia J18.9 Coronavirus infection B34.2 Atrial fibrillation with RVR I48.91 Decompensated heart failure I50.9 Acute exacerbation of chronic obstructive pulmonary disease J44.1
[2024-05-13] MEDS: AZITHROMYCIN ADD-Vantage 500 MG in 0.9% NaCl ADD-Vantage 250 ML 250 MG IV (14:32)
[2024-05-13] MEDS: acetaminophen 325 mg Tablet 650 MG PO (14:45)
== END 2024-05-13 16:34 | disposition home or self-care (01) | DRG 177 ==
LOC: ER 14:33 → CSU 14:40
PROVIDERS: Admitting Provider Internal Medicine; Emergency Provider Emergency Medicine; PCP Nurse Practitioner; Visit Provider Student in an Organized Health Care Education/Training Program
DX: U07.1 COVID-19 (principal); I50.33 Acute on chronic diastolic (congestive) heart failure; J18.9 Pneumonia, unspecified organism; J44.0 Chronic obstructive pulmonary disease with (acute) lower respiratory infection; J44.1 Chronic obstructive pulmonary disease with (acute) exacerbation; K55.1 Chronic vascular disorders of intestine; J96.11 Chronic respiratory failure with hypoxia; I11.0 Hypertensive heart disease with heart failure; I25.10 Atherosclerotic heart disease of native coronary artery without angina pectoris; Z95.5 Presence of coronary angioplasty implant and graft; E78.5 Hyperlipidemia, unspecified; I48.91 Unspecified atrial fibrillation; E03.9 Hypothyroidism, unspecified; K44.9 Diaphragmatic hernia without obstruction or gangrene; J43.9 Emphysema, unspecified; I77.1 Stricture of artery; Z79.01 Long term (current) use of anticoagulants; Z79.82 Long term (current) use of aspirin; Z85.46 Personal history of malignant neoplasm of prostate; Z86.0100 Personal history of colon polyps, unspecified; K21.9 Gastro-esophageal reflux disease without esophagitis; Z87.891 Personal history of nicotine dependence; Z90.49 Acquired absence of other specified parts of digestive tract; Z82.49 Family history of ischemic heart disease and other diseases of the circulatory system; Z83.3 Family history of diabetes mellitus
CPT/HCPCS: 0241U; 36415; 36416; 71045; 71275; 80048; 80053; 80061; 80162; 82607; 82746; 82962; 83036; 83540; 83550; 83735; 83880; 84145; 84443; 85025; 86403; 87040; 87070; 87150; 87205; 87426; 87449; 93005; 93308; 94640; 96365; 96367; 96372; 96375; 96376; 99285; J0248; J0456; J0696; J1160; J1815; J1940; J2919; J3490; J7030; J7050

== ENCOUNTER → 2024-05-21 13:19 | Outpatient (BNVA) | payer MEDICARE, SELFPAY | PROVIDERS: PCP Nurse Practitioner; Visit Provider Nurse Practitioner | DX: M70.62 Trochanteric bursitis, left hip (principal); M70.61 Trochanteric bursitis, right hip; M54.50 Low back pain, unspecified; M79.606 Pain in leg, unspecified | CPT/HCPCS: 99213 ==

== ENCOUNTER 2024-06-25 12:46 | Oncology outpatient (recurring) (ONCR) | payer OTHER, SELFPAY ==
[2024-06-25 13:27] LABS: Eosinophils # 0.1 10^3/uL (0.0-0.8); Eosinophils % 2.6 %; Hematocrit 37.2 % (37-53); Lymphocytes # 0.7 10^3/uL (0.8-4.8); Lymphocytes % 15.6 %; Mean Corpuscular HGB Conc 31.5 g/dL (30-55); Mean Corpuscular Hemoglobin 29.4 pg (27-33); Mean Corpuscular Volume 93.5 fl (82-101); Mean Platelet Volume 9.4 fL (7.4-10.4); Monocytes # 0.4 10^3/uL (0.2-0.9); Monocytes % 9.6 %; Neutrophils # 2.96 10^3/uL (1.8-7.7); Nucleated Red Blood Cells % 0 %; Platelet Count 214 10^3/cmm (157-399); Red Blood Count 3.98 10^6/uL (3.85-5.65); White Blood Count 4.17 10^3/uL (3.29-11.43)
[2024-06-25 14:04] LABS: Alanine Aminotransferase 22 U/L (0-41); Albumin Level 3.7 g/dL (3.5-5.2); Alkaline Phosphatase 99 U/L (40-130); Anion Gap 14.1 (5-19); Aspartate Amino Transferase 22 U/L (0-40); Blood Urea Nitrogen 14 mg/dL (8-23); Carbon Dioxide 27 mmol/L (22-29); Chloride 102 mmol/L (98-107); Glomerular Filtration Rate 74.1 mL/min (90-130); Glucose 149 mg/dL (65-115); Osmolality Calculated 291 mOsm/kg (285-295); Potassium 4.1 mmol/L (3.5-5.1); Prostate Specific Antigen < 0.014 ng/mL (0-4); Sodium 139 mmol/L (136-145); Total Bilirubin 0.5 mg/dL (0.15-1.2); Total Protein 6.7 g/dL (6.6-8.7)
[2024-06-25 14:32] LABS: Testosterone Total < 2.5 ng/dL (193-740)
== END 2024-07-03 23:59 | disposition home or self-care (01) ==
PROVIDERS: Nurse Practitioner Family; PCP Nurse Practitioner; Visit Provider Nurse Practitioner
DX: C61 Malignant neoplasm of prostate (principal); L03.115 Cellulitis of right lower limb; L03.116 Cellulitis of left lower limb; Z95.828 Presence of other vascular implants and grafts; Z79.818 Long term (current) use of other agents affecting estrogen receptors and estrogen levels; Z92.3 Personal history of irradiation; Z92.21 Personal history of antineoplastic chemotherapy
CPT/HCPCS: 36415; 80053; 84153; 84403; 85025; 99214

== ENCOUNTER 2024-06-29 11:35 | Outpatient (CLI) | payer OTHER, SELFPAY ==
[2024-06-29 12:20] LABS: Basophils # 0.1 10^3/uL (0.0-0.1); Basophils % 1.2 %; Eosinophils # 0.2 10^3/uL (0.0-0.8); Eosinophils % 3.5 %; Hematocrit 34.7 % (37-53); Lymphocytes # 0.6 10^3/uL (0.8-4.8); Lymphocytes % 15.1 %; Mean Corpuscular HGB Conc 31.1 g/dL (30-55); Mean Corpuscular Hemoglobin 28.4 pg (27-33); Mean Corpuscular Volume 91.3 fl (82-101); Mean Platelet Volume 9.5 fL (7.4-10.4); Monocytes # 0.5 10^3/uL (0.2-0.9); Monocytes % 11.3 %; Neutrophils % 68.7 %; Nucleated Red Blood Cells % 0 %; Platelet Count 172 10^3/cmm (157-399); Red Cell Distribution Width 15.9 % (12.1-15.1); White Blood Count 4.23 10^3/uL (3.29-11.43)
[2024-06-29 12:21] LABS: Bilirubin Urine Negative (Negative); Blood Urine Negative (Negative); Glucose Urine UA Negative (Normal); Ketones Urine Negative (Negative); Leukocyte Esterase Urine Negative (Negative); Nitrate Urine Negative (Negative); Protein Urine Negative (Negative); Specific Gravity, Urine 1.019 (1.005-1.030); Urine Appearance Clear (CLEAR)
[2024-06-29 12:26] LABS: Add Urine Microscopic? YES; Bacteria Urine None Seen /hpf; Hyaline Casts Urine 0.81 /lpf; RBC Urine 0-2 /hpf (0-2); Squamous Epithelial Cell Urine 0-5 /hpf (0-5); WBC Urine 0-5 /hpf (0-5)
[2024-06-29 12:27] LABS: Urine Color Dark Yellow (Yellow)
[2024-06-29 12:28] LABS: Add Urine Culture? No
[2024-06-29 12:39] LABS: Alanine Aminotransferase 17 U/L (0-41); Albumin Level 3.6 g/dL (3.5-5.2); Alkaline Phosphatase 98 U/L (40-130); Anion Gap 14.3 (5-19); Aspartate Amino Transferase 17 U/L (0-40); Blood Urea Nitrogen 13 mg/dL (8-23); Calcium 8.6 mg/dL (8.5-10.5); Carbon Dioxide 27 mmol/L (22-29); Chloride 101 mmol/L (98-107); Globulin 2.7 g/dL (1.3-4.6); Glomerular Filtration Rate 66.4 mL/min (90-130); Glucose 197 mg/dL (65-115); Osmolality Calculated 292 mOsm/kg (285-295); Potassium 4.3 mmol/L (3.5-5.1); Sodium 138 mmol/L (136-145); Total Bilirubin 0.6 mg/dL (0.15-1.2); Total Protein 6.3 g/dL (6.6-8.7)
== END 2024-06-29 11:36 | disposition home or self-care (01) ==
LOC: LAB 11:38
PROVIDERS: PCP Nurse Practitioner; Visit Provider Nurse Practitioner
DX: M17.12 Unilateral primary osteoarthritis, left knee (principal)
CPT/HCPCS: 36415; 80053; 81001; 85025

== ENCOUNTER → 2024-07-08 08:35 | Outpatient (BNVA) | payer OTHER, SELFPAY | PROVIDERS: PCP Nurse Practitioner; Visit Provider Nurse Practitioner | DX: M17.12 Unilateral primary osteoarthritis, left knee (principal) | CPT/HCPCS: 99213 ==

== ENCOUNTER 2024-07-09 09:31 | Emergency (ER) | payer OTHER, MEDICARE, SELFPAY ==
[2024-07-09] VITALS (7 sets, daily range): BP systolic 135–173; BP diastolic 67–82; PULSE 100–123; RESP 16–22; TEMP 36.8; O2SAT 93–99; BMI 31.5
--- NOTE | 2024-07-09 09:46 | W.ED.URI ---
HPI - URI/Sore Throat General: Chief Complaint: Upper Respiratory Infection Stated Complaint: Cough/ conjestion Time Seen by Provider: 07/09/24 09:46 Related Data Home Medications ?Medication ?Instructions ?Recorded ?Confirmed omeprazole 20 mg capsule,delayed 40 mg PO BID PRN stomach acid 10/04/20 07/09/24 release furosemide 40 mg tablet (Lasix) 40 mg PO QAM 03/28/21 07/08/24 potassium chloride 20 mEq 10 meq PO QAM 03/28/21 07/08/24 tablet,extended release aspirin 325 mg tablet 325 mg PO QAM 01/10/22 07/08/24 tamsulosin 0.4 mg capsule (Flomax) 0.4 mg PO BID 02/25/23 07/08/24 loratadine 10 mg tablet 10 mg PO QAM 05/15/23 07/08/24 digoxin 250 mcg (0.25 mg) tablet 250 mcg PO QAM 08/04/23 07/08/24 nitroglycerin 0.4 mg sublingual 0.4 mg sublingual Q5M PRN Chest 08/04/23 07/08/24 tablet (Nitrostat) Pain sertraline 50 mg tablet (Zoloft) 50 mg PO DAILY 06/25/24 07/08/24 carvedilol 25 mg tablet 12.5 mg PO BID 07/09/24 07/09/24 cholecalciferol (vitamin D3) 50 50 mcg PO DAILY 07/09/24 07/09/24 mcg (2,000 unit) tablet (Vitamin D3) colchicine 0.6 mg tablet 0.3 mg PO .2 TIMES WEEKLY 07/09/24 07/09/24 ferrous sulfate 325 mg (65 mg 325 mg PO BID 07/09/24 07/09/24 iron) tablet sevelamer carbonate 800 mg tablet 2,400 mg PO TID 07/09/24 07/09/24 Previous Rx's ?Medication ?Instructions ?Recorded apixaban 5 mg tablet (Eliquis) 5 mg PO BID #60 tabs 10/16/19 albuterol sulfate 90 mcg/actuation 2 inh inhalation Q4H PRN shortness 07/27/22 aerosol inhaler of breath or wheezing #18 grams metoprolol tartrate 100 mg tablet 100 mg PO BID #60 tabs 05/08/24 blood-glucose meter (Blood Glucose #1 ea 05/13/24 Monitoring kit) fluticasone 100 mcg-salmeterol 50 1 inh inhalation DAILY #60 ea 05/13/24 mcg/dose blistr powdr for inhalation (Advair Diskus) insulin glargine 100 unit/mL (3 10 unit (0.1 mL) SUBCUT BID #15 mL 05/13/24 mL) subcutaneous pen (Lantus Solostar U-100 Insulin) lancets #100 ea 05/13/24 pen needle, diabetic 32 gauge x #50 ea 05/13/24 1/4 (BD Ultra-Fine Micro Pen Needle) tiotropium bromide 1.25 2 inh inhalation Q24H #4 grams 05/13/24 mcg/actuation mist for inhalation (Spiriva Respimat) oseltamivir 75 mg capsule (Tamiflu) 75 mg PO BID 5 days #10 caps 07/09/24 Allergies Allergy/AdvReac Type Severity Reaction Status Date / Time No Known Allergies Allergy Verified 07/09/24 09:37 PFSH ED PFSH: Medical History Greater trochanteric bursitis of right hip Prostate cancer History of colon polyps Chronic anticoagulation eliquis, for afib Chronic respiratory failure with hypoxia Heart failure with preserved ejection fraction Coronary artery disease CHF (congestive heart failure) Last echocardiogram normal EF, grade 2/4 diastolic dysfunction October 2019 Hypertension Anemia Atrial fibrillation GERD (gastroesophageal reflux disease) Hypothyroidism Hyperlipidemia COPD (chronic obstructive pulmonary disease) Surgical History History of cataract surgery Left eye - 12/2022 H/O prostate biopsy S/P appendectomy S/P cholecystectomy History of colonoscopy (~04/2020) History of vasectomy History of knee surgery History of coronary artery bypass graft (03/2019) [address] [place] [address] Family History Father , IN HIS 50'S Lung disease tuberculosis Mother , AT AGE 63 CAD (coronary artery disease) Diabetes Hypertension Sister Cancer Denies family history of Clotting disorder Dementia Hyperlipidemia Psychiatric illness Chronic kidney disease (CKD) Suicide Anesthesia complication Bleeding disorder Stroke Social History Smoking and tobacco/nicotine status: former use of tobacco/nicotine Quit status (tobacco/nicotine): has quit using Year quit tobacco: 2017 - 4 PPD x 52 Years Alcohol intake: never Substance/Drug Use: never Lives independently: Yes Household members: none Marital status: Legally Current occupational status: employed and retired Do you think of yourself as: Straight/Heterosexual Current gender identity: Male Course Vital Signs: Vital signs: Vital Signs Temperature 98.3 F 07/09/24 09:32 Pulse Rate 119 H 07/09/24 11:00 Respiratory Rate 16 07/09/24 11:00 Blood Pressure 159/80 07/09/24 11:00 Pulse Oximetry 96 07/09/24 11:00 Oxygen Delivery Me thod Nasal Cannula 07/09/24 10:35 Oxygen Flow Rate 2 07/09/24 10:35 MDM - URI/Sore Throat Medical Records I reviewed the patient's medical records. Lab Data I reviewed the patient's lab results. 07/09/24 09:52 07/09/24 08:52 Radiology Impressions Chest X-Ray 07/09/24 09:47 Impression: 1. Bilateral patchy pulmonary opacities which may represent minimal pneumonia and/or atelectasis. 2. Cardiomegaly and atherosclerosis. Laboratory Results WBC 2.54 10^3/uL (3.29-11.43) L 07/09/24 09:52 RBC 4.16 10^6/uL (3.85-5.65) 07/09/24 09:52 Hgb 11.80 g/dL (11.27-16.99) 07/09/24 09:52 Hct 37.9 % (37-53) 07/09/24 09:52 MCV 91.1 fl (82-101) 07/09/24 09:52 MCH 28.4 pg (27-33) 07/09/24 09:52 MCHC 31.1 g/dL (30-55) 07/09/24 09:52 RDW 15.9 % (12.1-15.1) H 07/09/24 09:52 Plt Count 177 10^3/cmm (157-399) 07/09/24 09:52 MPV 9.4 fL (7.4-10.4) 07/09/24 09:52 Neut % (Auto) 80.7 % 07/09/24 09:52 Lymph % (Auto) 8.3 % 07/09/24 09:52 Walsh % (Auto) 10.2 % 07/09/24 09:52 Eos % (Auto) 0.0 % 07/09/24 09:52 Baso % (Auto) 0.8 % 07/09/24 09:52 Neut # (Auto) 2.05 10^3/uL (1.8-7.7) 07/09/24 09:52 Lymph # (Auto) 0.2 10^3/uL (0.8-4.8) L 07/09/24 09:52 Walsh # (Auto) 0.3 10^3/uL (0.2-0.9) 07/09/24 09:52 Eos # (Auto) 0.0 10^3/uL (0.0-0.8) 07/09/24 09:52 Baso # (Auto) 0.0 10^3/uL (0.0-0.1) 07/09/24 09:52 Nucleated RBC % (auto) 0 % 07/09/24 09:52 Nucleated RBCs # 0.0 /100WBC 07/09/24 09:52 Specimen Type Arterial 07/09/24 09:46 Sample Site Radial, left 07/09/24 09:46 ABG pH 7.46 (7.35-7.45) H 07/09/24 09:46 ABG pCO2 35.0 mmHg (35-45) 07/09/24 09:46 ABG pO2 66.5 mmHg (80.0-100.0) L 07/09/24 09:46 ABG HCO3 24.6 mmol/L (22-26) 07/09/24 09:46 ABG O2 Saturation 94.5 07/09/24 09:46 ABG Base Excess 1.0 mmol/L (-2.0-2.0) 07/09/24 09:46 Derek Test Pos 07/09/24 09:46 A-a O2 Gradient 5.1 mmHg (5-10) 07/09/24 09:46 Hematocrit 34.9 % (42-52) L 07/09/24 09:46 Hgb O2 Saturation 92.7 % (95-100) L 07/09/24 09:46 Carboxyhemoglobin 1.8 %THgb (0.4-20.1) 07/09/24 09:46 Methemoglobin 0.1 % (0.4-1.5) L 07/09/24 09:46 Total Hemoglobin 11.4 g/dL (14-18) L 07/09/24 09:46 Sodium 134.0 mmol/L (131-143) 07/09/24 09:46 Potassium 3.6 mmol/L (3.5-5.0) 07/09/24 09:46 Glucose 117.0 mg/dL (70-115) H 07/09/24 09:46 Ionized Calcium 1.2 mmol/L (1.1-1.4) 07/09/24 09:46 O2 Delivery Device Nc 07/09/24 09:46 O2 Liters/Min 2.0 % 07/09/24 09:46 Database Security Administrator ID Walci 07/09/24 09:46 Sodium 136 mmol/L (136-145) 07/09/24 08:52 Potassium 3.9 mmol/L (3.5-5.1) 07/09/24 08:52 Chloride 95 mmol/L (98-107) L 07/09/24 08:52 Carbon Dioxide 26 mmol/L (22-29) 07/09/24 08:52 Anion Gap 18.9 (5-19) 07/09/24 08:52 BUN 11 mg/dL (8-23) 07/09/24 08:52 Creatinine 0.9 mg/dL (0.7-1.2) 07/09/24 08:52 GFR Calculation 83.7 mL/min (90-130) L 07/09/24 08:52 Glucose 112 mg/dL (65-115) 07/09/24 08:52 Calculated Osmolality 282 mOsm/kg (285-295) L 07/09/24 08:52 Calcium 9.0 mg/dL (8.5-10.5) 07/09/24 08:52 Total Bilirubin 1.0 mg/dL (0.15-1.2) 07/09/24 08:52 AST 24 U/L (0-40) 07/09/24 08:52 ALT 20 U/L (0-41) 07/09/24 08:52 Alkaline Phosphatase 98 U/L (40-130) 07/09/24 08:52 NT-Pro-B Natriuret Pep 7608 pg/mL (0-125) H 07/09/24 08:52 Total Protein 7.6 g/dL (6.6-8.7) 07/09/24 08:52 Albumin 4.3 g/dL (3.5-5.2) 07/09/24 08:52 Globulin 3.3 g/dL (1.3-4.6) 07/09/24 08:52 Digoxin 1.0 ng/mL (0.6-1.2) 07/09/24 08:52 Coronavirus (PCR) Negative (Negative) 07/09/24 09:41 Influenza A (PCR) Positive (Negative) 07/09/24 09:41 Influenza Type B (PCR) Negative (Negative) 07/09/24 09:41 RSV (PCR) Negative (Negative) 07/09/24 09:41 All radiology interpretation(s) finalized by discharge EKG Data EKG 1: I personally reviewed and interpreted this EKG as follows: EKG interpretation date: 07/09/24 EKG interpretation time: 09:57 Interpretation: afib hr [address] elevation qrs 151 qtc 398 Discharge Plan Discharge Patient Disposition: Home Clinical Impression: Influenza Condition: Stable Prescriptions: New oseltamivir [Tamiflu] 75 mg capsule 75 mg PO BID 5 Days Qty: 10 0RF No Action sertraline [Zoloft] 50 mg tablet 50 mg PO DAILY aspirin 325 mg tablet 325 mg PO QAM Eliquis 5 mg Tablet 5 mg PO BID Qty: 60 0RF omeprazole 20 mg capsule,delayed release(DR/EC) 40 mg PO BID PRN (Reason: stomach acid) potassium chloride 20 mEq Tablet Extended Release 10 meq PO QAM furosemide [Lasix] 40 mg tablet 40 mg PO QAM Flomax 0.4 mg capsule 0.4 mg PO BID albuterol sulfate 90 mcg/actuation HFA aerosol inhaler 2 inh INHALATION Q4H PRN (Reason: shortness of breath or wheezing) Qty: 18 0RF (DME) pen needle, diabetic [BD Ultra-Fine Micro Pen Needle] 32 gauge x 1/4 needle See Rx Instructions .ROUTE .MEDSUPPLY Qty: 50 0RF Rx Instructions: As directed (DME) lancets Misc See Rx Instructions .ROUTE .MEDSUPPLY Qty: 100 0RF Rx Instructions: As directed (DME) blood-glucose meter [Blood Glucose Monitoring] Kit See Rx Instructions .ROUTE .MEDSUPPLY Qty: 1 0RF Rx Instructions: As directed insulin glargine [Lantus Solostar U-100 Insulin] 100 unit/mL (3 mL) insulin pen 10 unit SUBCUT BID Qty: 15 0RF fluticasone propion-salmeterol [Advair Diskus] 100-50 mcg/dose blister with device 1 inh inhalation DAILY Qty: 60 0RF Spiriva Respimat 1.25 mcg/actuation mist 2 inh inhalation Q24H Qty: 4 0RF carvedilol 25 mg Tablet 12.5 mg PO BID Rx Instructions: must administer with a meal/food ferrous sulfate 325 mg (65 mg iron) Tablet 325 mg PO BID colchicine 0.6 mg Tablet 0.3 mg PO .2 TIMES WEEKLY sevelamer carbonate 800 mg Tablet 2,400 mg PO TID Rx Instructions: must administer with a meal/food cholecalciferol (vitamin D3) [Vitamin D3] 50 mcg (2,000 unit) Tablet 50 mcg PO DAILY loratadine 10 mg tablet 10 mg PO QAM nitroglycerin [Nitrostat] 0.4 mg Tablet, Sublingual 0.4 mg SUBLINGUAL Q5M PRN (Reason: Chest Pain) Rx Instructions: do not exceed 3 doses per episode digoxin 250 mcg (0.25 mg) tablet 250 mcg PO QAM metoprolol tartrate 100 mg tablet 100 mg PO BID Qty: 60 0RF Discharge Orders: Discharge ED (Routine); Ordered 07/09/24 Ordered By: Liz Fuentes Referrals: Isela Gipson FNP [Primary Care Provider] - 4-7 days Discharge Diet: Advance as tolerated Discharge Activity: Resume usual activity Patient Instructions: Influenza (ED) Print Language: Estonian 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 of Care Code ED Compressor Service Technician for Kevin Arceo
--- NOTE | 2024-07-09 09:47 | XR_ITS ---
WS: [id number] Portable AP upright chest, 07/09/2024 Clinical Data: dyspnea/cough Comparison: Portable chest, 05/09/2024 Findings: There are bilateral patchy pulmonary opacities which may represent minimal pneumonia and/or atelectasis. The heart is slightly enlarged. The upper lobes are clear. No pneumothorax is seen. The aortic arch and descending thoracic aorta show tortuosity. Midline sternotomy sutures are present. Monitor leads are on the chest wall. XR/XR chest 1V portable [id number] Impression: 1. Bilateral patchy pulmonary opacities which may represent minimal pneumonia a nd/or atelectasis. 2. Cardiomegaly and atherosclerosis.
--- NOTE | 2024-07-09 09:57 | ECG_ITS ---
[facility] Test Date: 2024-07-09 Pat Name: Gabino Jones Department: Room: Gender: Male Skin Grader: : 1955 Requested By: Job Summers Order Number: [id number] Mick MD: Favio Ferguson M.D. Measurements Intervals Kipling Rate: 112 P: 0 AR: 0 QRS: 43 QRSD: 151 T: 55 QT: 332 QTc: 454 Interpretive Statements ATRIAL FIBRILLATION WITH RAPID VENTRICULAR RESPONSE RIGHT BUNDLE BRANCH BLOCK [120+ ms QRS DURATION, UPRIGHT V1, 40+ ms S IN I/aVL/V4/V5/V6] ST DEPRESSION, CONSIDER SUBENDOCARDIAL INJURY [0.1+ mV ST DEPRESSION] Compared to ECG 05/11/2024 16:45:58 ST (T wave) deviation now present Ventricular premature complex(es) no longer present Aberrant conduction of supraventricular beat(s) no longer present Myocardial infarct finding no longer present Electronically Signed On 07-09-2024 21:51:03 BUSINESS CONTINUITY DIRECTOR by Favio Ferguson M.D. [email or web address]
[2024-07-09 09:58] LABS: ABG PH Result 7.46 (7.35-7.45); Alveolar-Arterial Oxygen Gradi 5.1 mmHg (5-10); Arterial Blood Gas Hematocrit 34.9 % (42-52); Blood Gas Allen Test Pos; Blood Gas Operator Identificat WALCI; Blood Gas Sample Site Radial, left; Blood Gas Sample Type Arterial; Carboxyhemoglobin 1.8 %THgb (0.4-20.1); HCO3 ABG 24.6 mmol/L (22-26); HGB O2 Sat 92.7 % (95-100); Ionized Calcium Level - ABG 1.2 mmol/L (1.1-1.4); Methemoglobin 0.1 % (0.4-1.5); Oxygen Device NC; Oxygen Saturation ABG 94.5; PO2 ABG 66.5 mmHg (80.0-100.0); Potassium Level - ABG 3.6 mmol/L (3.5-5.0); Total Hemoglobin 11.4 g/dL (14-18)
--- NOTE | 2024-07-09 10:00 | W.ED.URI ---
HPI - URI/Sore Throat General: Chief Complaint: Upper Respiratory Infection Stated Complaint: Cough/ conjestion Time Seen by Provider: 07/09/24 09:46 Source: patient and EMS Mode of arrival: EMS Limitations: no limitations History of Present Illness: 68-year-old male has a history of A-fib with RVR along with COPD states he has not felt well over the last 2 days. States has been having cough congestion and increasing weakness. He wears oxygen at home as needed is currently requiring 2 L oxygen here. He denies any vomiting or diarrhea denies any worse improved factors. Associated symptoms: Deny abdominal pain, chills, chest pain, diarrhea, fever(s), headache(s), nausea or vomiting Related Data Home Medications ?Medication ?Instructions ?Recorded ?Confirmed furosemide 40 mg tablet (Lasix) 40 mg PO QAM 03/28/21 07/08/24 potassium chloride 20 mEq 10 meq PO QAM 03/28/21 07/08/24 tablet,extended release aspirin 325 mg tablet 325 mg PO QAM 01/10/22 07/08/24 tamsulosin 0.4 mg capsule (Flomax) 0.4 mg PO BID 02/25/23 07/08/24 loratadine 10 mg tablet 10 mg PO QAM 05/15/23 07/08/24 digoxin 250 mcg (0.25 mg) tablet 250 mcg PO QAM 08/04/23 07/08/24 nitroglycerin 0.4 mg sublingual 0.4 mg sublingual Q5M PRN Chest 08/04/23 07/08/24 tablet (Nitrostat) Pain sertraline 50 mg tablet (Zoloft) 50 mg PO DAILY 06/25/24 07/08/24 sevelamer carbonate 800 mg tablet 2,400 mg PO TID 07/09/24 07/09/24 Previous Rx's ?Medication ?Instructions ?Recorded apixaban 5 mg tablet (Eliquis) 5 mg PO BID #60 tabs 10/16/19 albuterol sulfate 90 mcg/actuation 2 inh inhalation Q4H PRN shortness 07/27/22 aerosol inhaler of breath or wheezing #18 grams metoprolol tartrate 100 mg tablet 100 mg PO BID #60 tabs 05/08/24 blood-glucose meter (Blood Glucose #1 ea 05/13/24 Monitoring kit) fluticasone 100 mcg-salmeterol 50 1 inh inhalation DAILY #60 ea 05/13/24 mcg/dose blistr powdr for inhalation (Advair Diskus) insulin glargine 100 unit/mL (3 10 unit (0.1 mL) SUBCUT BID #15 mL 05/13/24 mL) subcutaneous pen (Lantus Solostar U-100 Insulin) lancets #100 ea 05/13/24 pen needle, diabetic 32 gauge x #50 ea 05/13/24 1/4 (BD Ultra-Fine Micro Pen Needle) tiotropium bromide 1.25 2 inh inhalation Q24H #4 grams 05/13/24 mcg/actuation mist for inhalation (Spiriva Respimat) oseltamivir 75 mg capsule (Tamiflu) 75 mg PO BID 5 days #10 caps 07/09/24 Allergies Allergy/AdvReac Type Severity Reaction Status Date / Time No Known Allergies Allergy Verified 07/09/24 09:37 Review of Systems Const: Reports: body aches, fatigue and malaise; Denies: fever(s), chills or change in appetite ENMT: Denies: throat pain or dental pain Card: Denies: chest pain Resp: Reports: dyspnea, non-productive cough and wheezing GI: Denies: abdominal pain, nausea, vomiting or diarrhea Musc: Denies: neck pain or back pain Skin/Breast: Denies: rash Neuro: Denies: headache(s) PFSH ED PFSH: Medical History Greater trochanteric bursitis of right hip Prostate cancer History of colon polyps Chronic anticoagulation eliquis, for afib Chronic respiratory failure with hypoxia Heart failure with preserved ejection fraction Coronary artery disease CHF (congestive heart failure) Last echocardiogram normal EF, grade 2/4 diastolic dysfunction October 2019 Hypertension Anemia Atrial fibrillation GERD (gastroesophageal reflux disease) Hypothyroidism Hyperlipidemia COPD (chronic obstructive pulmonary disease) Surgical History History of cataract surgery Left eye - 12/2022 H/O prostate biopsy S/P appendectomy S/P cholecystectomy History of colonoscopy (~04/2020) History of vasectomy History of knee surgery History of coronary artery bypass graft (03/2019) [address] [place] [address] Family History Father , IN HIS 50'S Lung disease tuberculosis Mother , AT AGE 63 CAD (coronary artery disease) Diabetes Hypertension Sister Cancer Denies family history of Clotting disorder Dementia Hyperlipidemia Psychiatric illness Chronic kidney disease (CKD) Suicide Anesthesia complication Bleeding disorder Stroke Social History Smoking and tobacco/nicotine status: former use of tobacco/nicotine Quit status (tobacco/nicotine): has quit using Year quit tobacco: 2016 - PPD x 52 Years Alcohol intake: never Substance/Drug Use: never Lives independently: Yes Household members: none Marital status: Legally Current occupational status: employed and retired Do you think of yourself as: Straight/Heterosexual Current gender identity: Male Physical Exam Const: COMMON NORMALS: patient oriented x3 HENMT: COMMON NORMALS: normocephalic and atraumatic HEAD & SCALP: normocephalic and atraumatic Eye: COMMON NORMALS: Equal, round and reactive pupils present and EOMs intact bilaterally PUPIL: Yes Equal, round and reactive pupils present Neck/C-Spine: COMMON NORMALS: full ROM and supple Chest: COMMONS NORMALS: normal inspection of the chest Resp: COMMON NORMALS: No retractions and No use of accessory muscles EFFORT & INSPECTION: Yes audible wheezes Cardio: COMMON NORMALS: No murmurs present (Cardio) RATE: tachycardic RHYTHM: abnormal rhythm irregularly irregular GI: COMMON NORMALS: Normal to inspection, nondistended, normoactive bowel sounds present, Soft to palpation, non-tender and no masses PALPATION: Yes Soft to palpation Extremity: COMMON NORMALS: normal to inspection and full ROM Neuro: COMMON NORMALS: patient oriented x3, moves all extremities and no focal motor deficits Psych: COMMON NORMALS: mental status grossly normal, Normal thought process present and cooperative THOUGHT PROCESS: Normal thought process present Skin: COMMON NORMALS: no rashes or lesions noted and no wounds GENERAL SKIN EXAM: no rashes or lesions noted Course Vital Signs: Vital signs: Vital Signs Temperature 98.3 F 07/09/24 09:32 Pulse Rate 119 H 07/09/24 11:00 Respiratory Rate 16 07/09/24 11:00 Blood Pressure 159/80 07/09/24 11:00 Pulse Oximetry 96 07/09/24 11:00 Oxygen Delivery Me thod Nasal Cannula 07/09/24 10:35 Oxygen Flow Rate 2 07/09/24 10:35 MDM - URI/Sore Throat Medical Decision Making Patient presents with cough congestion did test positive for the flu here. He is in no increased distress he has as needed oxygen at home he is to wear it as needed at home we will prescribe him Tamiflu he is stable for discharge he is follow-up with PCP return if worsening he understands agrees to plan. Medical Records I reviewed the patient's medical records. Lab Data I reviewed the patient's lab results. 07/09/24 09:52 07/09/24 08:52 Radiology Impressions Chest X-Ray 07/09/24 09:47 Impression: 1. Bilateral patchy pulmonary opacities which may represent minimal pneumonia and/or atelectasis. 2. Cardiomegaly and atherosclerosis. Laboratory Results WBC 2.54 10^3/uL (3.29-11.43) L 07/09/24 09:52 RBC 4.16 10^6/uL (3.85-5.65) 07/09/24 09:52 Hgb 11.80 g/dL (11.27-16.99) 07/09/24 09:52 Hct 37.9 % (37-53) 07/09/24 09:52 MCV 91.1 fl (82-101) 07/09/24 09:52 MCH 28.4 pg (27-33) 07/09/24 09:52 MCHC 31.1 g/dL (30-55) 07/09/24 09:52 RDW 15.9 % (12.1-15.1) H 07/09/24 09:52 Plt Count 177 10^3/cmm (157-399) 07/09/24 09:52 MPV 9.4 fL (7.4-10.4) 07/09/24 09:52 Neut % (Auto) 80.7 % 07/09/24 09:52 Lymph % (Auto) 8.3 % 07/09/24 09:52 Lynn % (Auto) 10.2 % 07/09/24 09:52 Eos % (Auto) 0.0 % 07/09/24 09:52 Baso % (Auto) 0.8 % 07/09/24 09:52 Neut # (Auto) 2.05 10^3/uL (1.8-7.7) 07/09/24 09:52 Lymph # (Auto) 0.2 10^3/uL (0.8-4.8) L 07/09/24 09:52 Lynn # (Auto) 0.3 10^3/uL (0.2-0.9) 07/09/24 09:52 Eos # (Auto) 0.0 10^3/uL (0.0-0.8) 07/09/24 09:52 Baso # (Auto) 0.0 10^3/uL (0.0-0.1) 07/09/24 09:52 Nucleated RBC % (auto) 0 % 07/09/24 09:52 Nucleated RBCs # 0.0 /100WBC 07/09/24 09:52 Specimen Type Arterial 07/09/24 09:46 Sample Site Radial, left 07/09/24 09:46 ABG pH 7.46 (7.35-7.45) H 07/09/24 09:46 ABG pCO2 35.0 mmHg (35-45) 07/09/24 09:46 ABG pO2 66.5 mmHg (80.0-100.0) L 07/09/24 09:46 ABG HCO3 24.6 mmol/L (22-26) 07/09/24 09:46 ABG O2 Saturation 94.5 07/09/24 09:46 ABG Base Excess 1.0 mmol/L (-2.0-2.0) 07/09/24 09:46 Derek Test Pos 07/09/24 09:46 A-a O2 Gradient 5.1 mmHg (5-10) 07/09/24 09:46 Hematocrit 34.9 % (42-52) L 07/09/24 09:46 Hgb O2 Saturation 92.7 % (95-100) L 07/09/24 09:46 Carboxyhemoglobin 1.8 %THgb (0.4-20.1) 07/09/24 09:46 Methemoglobin 0.1 % (0.4-1.5) L 07/09/24 09:46 Total Hemoglobin 11.4 g/dL (14-18) L 07/09/24 09:46 Sodium 134.0 mmol/L (131-143) 07/09/24 09:46 Potassium 3.6 mmol/L (3.5-5.0) 07/09/24 09:46 Glucose 117.0 mg/dL (70-115) H 07/09/24 09:46 Ionized Calcium 1.2 mmol/L (1.1-1.4) 07/09/24 09:46 O2 Delivery Device Nc 07/09/24 09:46 O2 Liters/Min 2.0 % 07/09/24 09:46 Plastic Battery Assembler ID [place] 07/09/24 09:46 Sodium 136 mmol/L (136-145) 07/09/24 08:52 Potassium 3.9 mmol/L (3.5-5.1) 07/09/24 08:52 Chloride 95 mmol/L (98-107) L 07/09/24 08:52 Carbon Dioxide 26 mmol/L (22-29) 07/09/24 08:52 Anion Gap 18.9 (5-19) 07/09/24 08:52 BUN 11 mg/dL (8-23) 07/09/24 08:52 Creatinine 0.9 mg/dL (0.7-1.2) 07/09/24 08:52 GFR Calculation 83.7 mL/min (90-130) L 07/09/24 08:52 Glucose 112 mg/dL (65-115) 07/09/24 08:52 Calculated Osmolality 282 mOsm/kg (285-295) L 07/09/24 08:52 Calcium 9.0 mg/dL (8.5-10.5) 07/09/24 08:52 Total Bilirubin 1.0 mg/dL (0.15-1.2) 07/09/24 08:52 AST 24 U/L (0-40) 07/09/24 08:52 ALT 20 U/L (0-41) 07/09/24 08:52 Alkaline Phosphatase 98 U/L (40-130) 07/09/24 08:52 NT-Pro-B Natriuret Pep 7608 pg/mL (0-125) H 07/09/24 08:52 Total Protein 7.6 g/dL (6.6-8.7) 07/09/24 08:52 Albumin 4.3 g/dL (3.5-5.2) 07/09/24 08:52 Globulin 3.3 g/dL (1.3-4.6) 07/09/24 08:52 Digoxin 1.0 ng/mL (0.6-1.2) 07/09/24 08:52 Coronavirus (PCR) Negative (Negative) 07/09/24 09:41 Influenza A (PCR) Positive (Negative) 07/09/24 09:41 Influenza Type B (PCR) Negative (Negative) 07/09/24 09:41 RSV (PCR) Negative (Negative) 07/09/24 09:41 All radiology interpretation(s) finalized by discharge Discharge Plan Discharge Patient Disposition: Home Clinical Impression: Influenza Condition: Stable Prescriptions: New oseltamivir [Tamiflu] 75 mg capsule 75 mg PO BID 5 Days Qty: 10 0RF No Action sertraline [Zoloft] 50 mg tablet 50 mg PO DAILY aspirin 325 mg tablet 325 mg PO QAM Eliquis 5 mg Tablet 5 mg PO BID Qty: 60 0RF omeprazole 20 mg capsule,delayed release(DR/EC) 40 mg PO BID PRN (Reason: stomach acid) potassium chloride 20 mEq Tablet Extended Release 10 meq PO QAM furosemide [Lasix] 40 mg tablet 40 mg PO QAM Flomax 0.4 mg capsule 0.4 mg PO BID albuterol sulfate 90 mcg/actuation HFA aerosol inhaler 2 inh INHALATION Q4H PRN (Reason: shortness of breath or wheezing) Qty: 18 0RF (DME) pen needle, diabetic [BD Ultra-Fine Micro Pen Needle] 32 gauge x 1/4 needle See Rx Instructions .ROUTE .MEDSUPPLY Qty: 50 0RF Rx Instructions: As directed (DME) lancets Misc See Rx Instructions .ROUTE .MEDSUPPLY Qty: 100 0RF Rx Instructions: As directed (DME) blood-glucose meter [Blood Glucose Monitoring] Kit See Rx Instructions .ROUTE .MEDSUPPLY Qty: 1 0RF Rx Instructions: As directed insulin glargine [Lantus Solostar U-100 Insulin] 100 unit/mL (3 mL) insulin pen 10 unit SUBCUT BID Qty: 15 0RF fluticasone propion-salmeterol [Advair Diskus] 100-50 mcg/dose blister with device 1 inh inhalation DAILY Qty: 60 0RF Spiriva Respimat 1.25 mcg/actuation mist 2 inh inhalation Q24H Qty: 4 0RF carvedilol 25 mg Tablet 12.5 mg PO BID Rx Instructions: must administer with a meal/food ferrous sulfate 325 mg (65 mg iron) Tablet 325 mg PO BID colchicine 0.6 mg Tablet 0.3 mg PO .2 TIMES WEEKLY sevelamer carbonate 800 mg Tablet 2,400 mg PO TID Rx Instructions: must administer with a meal/food cholecalciferol (vitamin D3) [Vitamin D3] 50 mcg (2,000 unit) Tablet 50 mcg PO DAILY loratadine 10 mg tablet 10 mg PO QAM nitroglycerin [Nitrostat] 0.4 mg Tablet, Sublingual 0.4 mg SUBLINGUAL Q5M PRN (Reason: Chest Pain) Rx Instructions: do not exceed 3 doses per episode digoxin 250 mcg (0.25 mg) tablet 250 mcg PO QAM metoprolol tartrate 100 mg tablet 100 mg PO BID Qty: 60 0RF Discharge Orders: Discharge ED (Routine); Ordered 07/09/24 Ordered By: Liz Fuentes Referrals: Isela Gipson FNP [Primary Care Provider] - 4-7 days Discharge Diet: Advance as tolerated Discharge Activity: Resume usual activity Patient Instructions: Influenza (ED) Print Language: Tuvaluan 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 of Care Code ED Silverware Washer for Kevin Arceo
[2024-07-09] MEDS: dexamethasone 10 mg/mL INJ IVP (10:07)
[2024-07-09 10:21] LABS: Basophils % 0.8 %; Hematocrit 37.9 % (37-53); Lymphocytes # 0.2 10^3/uL (0.8-4.8); Lymphocytes % 8.3 %; Mean Corpuscular HGB Conc 31.1 g/dL (30-55); Mean Corpuscular Hemoglobin 28.4 pg (27-33); Mean Corpuscular Volume 91.1 fl (82-101); Mean Platelet Volume 9.4 fL (7.4-10.4); Monocytes # 0.3 10^3/uL (0.2-0.9); Monocytes % 10.2 %; Neutrophils # 2.05 10^3/uL (1.8-7.7); Neutrophils % 80.7 %; Nucleated Red Blood Cells % 0 %; Platelet Count 177 10^3/cmm (157-399); Red Blood Count 4.16 10^6/uL (3.85-5.65); Red Cell Distribution Width 15.9 % (12.1-15.1); White Blood Count 2.54 10^3/uL (3.29-11.43)
--- NOTE | 2024-07-09 10:33 | PC.PHAR ---
pt leif Herrera 10:33am 07/09/24
[2024-07-09] MEDS: ipratropium-albuterol 3 mL Neb INHALATION (10:38)
[2024-07-09 10:44] LABS: Alanine Aminotransferase 20 U/L (0-41); Albumin Level 4.3 g/dL (3.5-5.2); Alkaline Phosphatase 98 U/L (40-130); Anion Gap 18.9 (5-19); Aspartate Amino Transferase 24 U/L (0-40); Blood Urea Nitrogen 11 mg/dL (8-23); Carbon Dioxide 26 mmol/L (22-29); Chloride 95 mmol/L (98-107); Creatinine Clr Calc Pharmacy 91.7259; Globulin 3.3 g/dL (1.3-4.6); Glomerular Filtration Rate 83.7 mL/min (90-130); Glucose 112 mg/dL (65-115); NT Pro B Type Natriuretic Pept 7608 pg/mL (0-125); Osmolality Calculated 282 mOsm/kg (285-295); Potassium 3.9 mmol/L (3.5-5.1); Sodium 136 mmol/L (136-145); Total Protein 7.6 g/dL (6.6-8.7)
[2024-07-09 10:50] LABS: Covid PCR NEGATIVE (Negative); Influenza A POSITIVE (Negative); Influenza B NEGATIVE (Negative); Respiratory Syncytial Virus Ce NEGATIVE (Negative)
[2024-07-09] MEDS: dilTIAZem 5 mg/mL SDV 5 mL 10 MG IVP (11:07)
== END 2024-07-09 11:36 | disposition home or self-care (01) ==
PROVIDERS: Family Medicine; Emergency Provider Emergency Medicine; PCP Nurse Practitioner
DX: J10.1 Influenza due to other identified influenza virus with other respiratory manifestations (principal); Z11.52 Encounter for screening for COVID-19; Z79.82 Long term (current) use of aspirin; Z79.01 Long term (current) use of anticoagulants; Z79.4 Long term (current) use of insulin; Z87.891 Personal history of nicotine dependence; J44.9 Chronic obstructive pulmonary disease, unspecified; I25.10 Atherosclerotic heart disease of native coronary artery without angina pectoris; E78.5 Hyperlipidemia, unspecified; Z85.46 Personal history of malignant neoplasm of prostate; I11.0 Hypertensive heart disease with heart failure; I50.30 Unspecified diastolic (congestive) heart failure
CPT/HCPCS: 36415; 36600; 71045; 80051; 80053; 80162; 82330; 82805; 83880; 85025; 87637; 93005; 94640; 96374; 96375; 99285; J1100; J3490

== ENCOUNTER → 2024-08-05 10:02 | Outpatient (BNVA) | payer OTHER, SELFPAY | PROVIDERS: PCP Nurse Practitioner; Visit Provider Nurse Practitioner | DX: M17.12 Unilateral primary osteoarthritis, left knee (principal) | CPT/HCPCS: 99214 ==

== ENCOUNTER 2024-08-20 09:38 | Oncology outpatient (recurring) (ONCR) | payer OTHER, BC, SELFPAY ==
--- NOTE | 2024-08-20 10:00 | CT_ITS ---
WS: [id number] CT LEFT knee, noncontrast HISTORY: Planning left TKA with [facility] guidance. TECHNIQUE: Protocol for [facility] total knee replacement has been obtained. This includes axial imaging through the LEFT hip, LEFT knee and LEFT ankle. DLP: 1005.46 mGy.cm COMPARISON: 04/27/2024 Pelvis: As visualized no abnormality. Mild SI joint arthritis. No fractures. Scattered arterial calcifications. LEFT knee: Mild diffuse tricompartment joint space narrowing with marginal osteophytes. Small suprapatellar joint effusion. Joint effusion has increased in size since the prior exam slightly. There is mild soft tissue edema. Vascular calcifications. Soft tissue calcific densities along the posterior medial knee. LEFT ankle: Negative. CT/CT knee [facility] [id number] IMPRESSION: CT imaging provided for [facility] robotic total knee replacement.
== END 2024-08-31 23:59 | disposition home or self-care (01) ==
LOC: RAD 09:39 → ONCMED 08-24 09:44
PROVIDERS: PCP Nurse Practitioner; Visit Provider Nurse Practitioner
DX: C61 Malignant neoplasm of prostate (principal); L03.115 Cellulitis of right lower limb; L03.116 Cellulitis of left lower limb; Z95.828 Presence of other vascular implants and grafts; Z79.818 Long term (current) use of other agents affecting estrogen receptors and estrogen levels; Z92.3 Personal history of irradiation; Z92.21 Personal history of antineoplastic chemotherapy; M17.12 Unilateral primary osteoarthritis, left knee
CPT/HCPCS: 73700

== ENCOUNTER → 2024-08-24 09:07 | Outpatient (BNVA) | payer OTHER, SELFPAY | PROVIDERS: PCP Nurse Practitioner; Visit Provider Nurse Practitioner | DX: M70.62 Trochanteric bursitis, left hip (principal); M70.61 Trochanteric bursitis, right hip; M54.50 Low back pain, unspecified | CPT/HCPCS: 99213 ==

== ENCOUNTER 2024-08-31 08:49 | Outpatient (CLI) | payer OTHER, SELFPAY ==
[2024-08-31 09:25] LABS: Basophils % 0.8 %; Eosinophils # 0.1 10^3/uL (0.0-0.8); Eosinophils % 4.8 %; Hematocrit 36.1 % (37-53); Lymphocytes # 0.6 10^3/uL (0.8-4.8); Lymphocytes % 21.9 %; Mean Corpuscular HGB Conc 30.5 g/dL (30-55); Mean Corpuscular Hemoglobin 26.3 pg (27-33); Mean Corpuscular Volume 86.2 fl (82-101); Mean Platelet Volume 8.7 fL (7.4-10.4); Monocytes # 0.2 10^3/uL (0.2-0.9); Monocytes % 9.2 %; Neutrophils # 1.59 10^3/uL (1.8-7.7); Neutrophils % 63.3 %; Nucleated Red Blood Cells % 0 %; Platelet Count 172 10^3/cmm (157-399); Red Blood Count 4.19 10^6/uL (3.85-5.65); Red Cell Distribution Width 17.1 % (12.1-15.1); White Blood Count 2.51 10^3/uL (3.29-11.43)
[2024-08-31 09:48] LABS: Alanine Aminotransferase 10 U/L (0-41); Albumin Level 3.7 g/dL (3.5-5.2); Alkaline Phosphatase 85 U/L (40-130); Anion Gap 14.7 (5-19); Aspartate Amino Transferase 12 U/L (0-40); Blood Urea Nitrogen 12 mg/dL (8-23); Calcium 8.7 mg/dL (8.5-10.5); Carbon Dioxide 25 mmol/L (22-29); Chloride 105 mmol/L (98-107); Globulin 3.3 g/dL (1.3-4.6); Glomerular Filtration Rate 111.5 mL/min (90-130); Glucose 138 mg/dL (65-115); Osmolality Calculated 294 mOsm/kg (285-295); Potassium 3.7 mmol/L (3.5-5.1); Sodium 141 mmol/L (136-145); Total Bilirubin 0.3 mg/dL (0.15-1.2)
== END 2024-08-31 08:50 | disposition home or self-care (01) ==
LOC: LAB 08:51
PROVIDERS: PCP Nurse Practitioner; Visit Provider Nurse Practitioner
DX: M17.12 Unilateral primary osteoarthritis, left knee (principal)
CPT/HCPCS: 36415; 80053; 85025

== ENCOUNTER 2024-09-02 11:24 | Oncology outpatient (recurring) (ONCR) | payer OTHER, SELFPAY ==
[2024-09-02 11:43] LABS: Basophils % 1.1 %; Eosinophils # 0.2 10^3/uL (0.0-0.8); Hematocrit 36.8 % (37-53); Lymphocytes # 0.7 10^3/uL (0.8-4.8); Lymphocytes % 19.4 %; Mean Corpuscular HGB Conc 30.2 g/dL (30-55); Mean Corpuscular Hemoglobin 25.5 pg (27-33); Mean Corpuscular Volume 84.6 fl (82-101); Mean Platelet Volume 9.3 fL (7.4-10.4); Monocytes # 0.3 10^3/uL (0.2-0.9); Monocytes % 7.4 %; Neutrophils # 2.57 10^3/uL (1.8-7.7); Neutrophils % 68.1 %; Nucleated Red Blood Cells % 0 %; Platelet Count 199 10^3/cmm (157-399); Red Blood Count 4.35 10^6/uL (3.85-5.65); Red Cell Distribution Width 17.1 % (12.1-15.1); White Blood Count 3.77 10^3/uL (3.29-11.43)
[2024-09-02 12:14] LABS: Alanine Aminotransferase 10 U/L (0-41); Albumin Level 3.9 g/dL (3.5-5.2); Alkaline Phosphatase 86 U/L (40-130); Anion Gap 12.2 (5-19); Aspartate Amino Transferase 12 U/L (0-40); Blood Urea Nitrogen 15 mg/dL (8-23); Carbon Dioxide 27 mmol/L (22-29); Chloride 102 mmol/L (98-107); Creatinine Clr Calc Pharmacy 97.5489; Globulin 3.4 g/dL (1.3-4.6); Glomerular Filtration Rate 95.6 mL/min (90-130); Glucose 182 mg/dL (65-115); Osmolality Calculated 289 mOsm/kg (285-295); Potassium 4.2 mmol/L (3.5-5.1); Sodium 137 mmol/L (136-145); Testosterone Total 27.6 ng/dL (193-740); Total Bilirubin 0.4 mg/dL (0.15-1.2); Total Protein 7.3 g/dL (6.6-8.7)
[2024-09-02 12:19] LABS: Prostate Specific Antigen < 0.014 ng/mL (0-4)
== END 2024-09-30 23:59 | disposition home or self-care (01) ==
PROVIDERS: Nurse Practitioner Family; PCP Nurse Practitioner; Visit Provider Internal Medicine
DX: C61 Malignant neoplasm of prostate (principal); L03.115 Cellulitis of right lower limb; L03.116 Cellulitis of left lower limb; Z95.828 Presence of other vascular implants and grafts; Z79.818 Long term (current) use of other agents affecting estrogen receptors and estrogen levels; Z92.3 Personal history of irradiation; Z92.21 Personal history of antineoplastic chemotherapy; M17.12 Unilateral primary osteoarthritis, left knee
CPT/HCPCS: 36415; 80053; 84153; 84403; 85025; 99213

== ENCOUNTER → 2024-09-14 12:32 | Outpatient (BNVA) | payer MEDICARE, SELFPAY | PROVIDERS: PCP Nurse Practitioner; Visit Provider Family Medicine | DX: Z01.818 Encounter for other preprocedural examination (principal) | CPT/HCPCS: 81003 ==

== ENCOUNTER 2024-09-15 12:51 | Observation (INO) | payer OTHER, SELFPAY ==
[2024-09-15] VITALS (27 sets, daily range): BP systolic 82–140; BP diastolic 40–72; PULSE 50–72; RESP 15–22; TEMP 36.2–36.7; O2SAT 91–99; BMI 29.0
[2024-09-15 08:30] LABS: Glucose Point of Care 120 mg/dL (70-110)
[2024-09-15] MEDS: albuterol 2.5 mg/3 mL Neb INHALATION (08:57)
[2024-09-15] MEDS: sodium chloride 0.9% 1,000 ML 30 ML IV (09:02)
[2024-09-15] MEDS: acetaminophen 1,000 MG/100 ML PIGGYBACK 400 MG IV ×2 (09:03→17:42)
[2024-09-15] MEDS: CELEcoxib 200 mg Capsule 400 MG PO (09:08)
[2024-09-15] MEDS: gabapentin 300 mg Capsule PO ×3 (09:08→20:32)
--- NOTE | 2024-09-15 09:15 | W.PM.OPSUD ---
Surgery/Procedure H&P Update DATE OF PROCEDURE: September 15, 2024 DATE H&P PERFORMED: 09/14/24 H&P UPDATE INFORMATION: I have reviewed H&P completed within last 30 days, I have examined patient prior to procedure, No changes to prior documentation, H&P is in [facility] EMR on date indicated and Risks and benefits of the procedure reviewed PLANNED PROCEDURE: Operation Date: 09/15/24 09:45 Proposed Procedures p Parag Robot Total Knee Arthroplasty(Left) - Charlee Sandoval MD Related Problem List Diagnoses (1) Primary osteoarthritis of left knee:
--- NOTE | 2024-09-15 10:14 | ANES.PREANE2 ---
Pre-Anesthetic Assessment Height/Weight: Height 1.78 m Weight 91.626 kg Temp Pulse Resp BP Pulse Ox O2 Del Method O2 Flow Rate 97.5 F L 68 17 140/72 96 Nasal Cannula 2 09/15/24 08:24 09/15/24 08:59 09/15/24 08:51 09/15/24 08:24 09/15/24 08:51 09/15/24 08:51 09/15/24 08:51 Operation Date: 09/15/24 09:45 Proposed Procedures p Parag Robot Total Knee Arthroplasty(Left) - Charlee Sandoval MD Last intake: Intake Last Liquid Date 09/14/24 Last Liquid Time 21:30 Last Solid Date 09/14/24 Last Solid Time 21:30 Social No alcohol and No tobacco Exam alert, oriented x 3, clear to auscultation bilaterally and regular rate & rhythm (S4 gallop ) Airway Submandibular: within normal limits Cervical ROM: within normal limits Mallampati: Class II Pulmonary Chronic Obstructive Pulmonary Disease (oxygen dependent (2 l/min)) CV/HEM Atrial Fibrillation, Anemia, Coronary Artery Disease (s/p CABG), Congestive Heart Failure and Hypertension Prostate CA Musc/skel Osteoarthritis/DJD and Weakness Anesthetic Plan ASA status: 4 Anesthesia: Regional (specify below) (Spinal ) Medications/Allergies Home Medications ?Medication ?Instructions ?Recorded ?Confirmed ?Last Taken ?Type apixaban 5 mg tablet (Eliquis) 5 mg PO BID #60 tabs 10/16/19 09/14/24 09/13/24 Rx furosemide 40 mg tablet (Lasix) 40 mg PO QAM 03/28/21 09/14/24 09/14/24 History potassium chloride 20 mEq 10 meq PO QAM 03/28/21 09/14/24 09/14/24 History tablet,extended release albuterol sulfate 90 mcg/actuation 2 inh inhalation Q4H PRN shortness 07/27/22 09/14/24 09/14/24 Rx aerosol inhaler of breath or wheezing #18 grams tamsulosin 0.4 mg capsule (Flomax) 0.4 mg PO BID 02/25/23 09/15/24 09/15/24 History loratadine 10 mg tablet 10 mg PO QAM 05/15/23 09/15/24 09/15/24 History digoxin 250 mcg (0.25 mg) tablet 250 mcg PO QAM 08/04/23 09/15/24 09/15/24 History nitroglycerin 0.4 mg sublingual 0.4 mg sublingual Q5M PRN Chest 08/04/23 09/14/24 03/15/24 History tablet (Nitrostat) Pain metoprolol tartrate 100 mg tablet 100 mg PO BID #60 tabs 05/08/24 09/15/24 09/15/24 Rx blood-glucose meter (Blood Glucose #1 ea 05/13/24 09/14/24 Unknown Rx Monitoring kit) lancets #100 ea 05/13/24 09/14/24 Unknown Rx pen needle, diabetic 32 gauge x #50 ea 05/13/24 09/14/24 Unknown Rx 1/4 (BD Ultra-Fine Micro Pen Needle) tiotropium bromide 1.25 2 inh inhalation Q24H #4 grams 05/13/24 09/14/24 09/14/24 Rx mcg/actuation mist for inhalation (Spiriva Respimat) sertraline 50 mg tablet (Zoloft) 50 mg PO DAILY 06/25/24 09/14/24 07/08/24 History calcium 600 mg (as 1 tab PO DAILY 07/09/24 09/14/24 09/14/24 History carbonate)-vitamin D3 5 mcg (200 unit) tablet dapagliflozin propanediol 10 mg 10 mg PO DAILY 07/09/24 09/14/24 07/08/24 History tablet (Farxiga) gabapentin 300 mg capsule 300 mg PO TID 07/09/24 09/14/24 09/14/24 History levothyroxine 125 mcg tablet 125 mcg PO DAILY 07/09/24 09/15/24 09/14/24 History magnesium citrate (Citrate of 150 ml PO DAILY PRN Constipation 07/09/24 09/14/24 Unknown History Magnesia oral) omeprazole 40 mg capsule,delayed 40 mg PO DAILY 07/09/24 09/15/24 09/15/24 History release sevelamer carbonate 800 mg tablet 2,400 mg PO TID 07/09/24 09/14/24 Unknown History diclofenac sodium 1 % topical gel 4 g topical QID PRN joint pain 08/24/24 09/14/24 Unknown Rx #100 grams prochlorperazine maleate 10 mg 10 mg PO Q4H PRN Mild Nausea #30 08/25/24 09/14/24 Unknown Rx tablet (Compazine) tabs insulin glargine 100 unit/mL (3 10 unit (0.1 mL) SUBCUT DAILY #15 09/14/24 09/14/24 09/13/24 Rx mL) subcutaneous pen (Lantus mL Solostar U-100 Insulin) fluticasone 100 mcg-salmeterol 50 1 inh inhalation BEDTIME 09/15/24 09/15/24 09/14/24 History mcg/dose blistr powdr for inhalation (Advair Diskus) Allergies Allergy/AdvReac Type Severity Reaction Status Date / Time No Known Allergies Allergy Verified 09/14/24 11:54 Current Medications Generic Name Dose Route Start Last Admin Trade Name Freq PRN Reason Stop Dose Admin Sodium Chloride 1,000 mls @ 30 mls/hr 09/15/24 08:15 09/15/24 09:02 Sodium Chloride 0.9% IV 09/16/24 08:14 30 mls/hr .Q24H JUAN DAVID Administration PFSH Anesthesia Medical History Greater trochanteric bursitis of right hip Prostate cancer History of colon polyps Chronic anticoagulation eliquis, for afib Chronic respiratory failure with hypoxia Heart failure with preserved ejection fraction Coronary artery disease CHF (congestive heart failure) Last echocardiogram normal EF, grade 2/4 diastolic dysfunction October 2019 Hypertension Anemia Atrial fibrillation GERD (gastroesophageal reflux disease) Hypothyroidism Hyperlipidemia COPD (chronic obstructive pulmonary disease) Surgical History History of cataract surgery Left eye - 12/2022 H/O prostate biopsy S/P appendectomy S/P cholecystectomy History of colonoscopy (~04/2020) History of vasectomy History of knee surgery History of coronary artery bypass graft (03/2019) [address] [place] [address] Family History Father , IN HIS 50'S Lung disease tuberculosis Mother , AT AGE 63 CAD (coronary artery disease) Diabetes Hypertension Sister Cancer Denies family history of Clotting disorder Dementia Hyperlipidemia Psychiatric illness Chronic kidney disease (CKD) Suicide Anesthesia complication Bleeding disorder Stroke Social History Smoking and tobacco/nicotine status: never used tobacco/nicotine Quit status (tobacco/nicotine): has quit using Year quit tobacco: 2017 - PPD x 52 Years Alcohol intake: never Substance/Drug Use: never Lives independently: Yes Household members: none Marital status: Legally Current occupational status: employed and retired Do you think of yourself as: Straight/Heterosexual Current gender identity: Male Data Anesthesia Cardiac Studies: Echocardiogram 06/18/23 Echocardiogram Limited Views 05/11/24 Echocardiogram Ultrasound 10/16/19 Sestamibi Stress Test (Cardiology) 06/19/23
[2024-09-15] MEDS: ceFAZolin 2,000 mg SDV 2000 MG IVP ×2 (10:16→17:41)
[2024-09-15] MEDS: tranexamic acid 1,000 mg/10mL SDV 1000 MG IV (10:51)
[2024-09-15] MEDS: VANCOMYCIN ADD-Vantage 1,000 MG VIAL 1000 MG XX (11:25)
[2024-09-15] MEDS: ceFAZolin 1,000 mg SDV 2000 MG IRRIGATION (11:26)
[2024-09-15] MEDS: BUPivacaine 0.5% INJ 10 mL 20 ML INJECTION (11:30)
[2024-09-15] MEDS: BUPivacaine liposome 13.3 mg/mL SDV 20 mL 266 MG INJECTION (11:30)
--- NOTE | 2024-09-15 13:37 | XRR_ITS ---
PROCEDURE INFORMATION: Exam: XR Left Knee Exam date and time: 09/15/2024 1:39 PM Age: 69 years old Clinical indication: Device placement; Joint replacement hardware; Prior surgery; Surgery date: Post-operative (0-2 days); Surgery type: Left total knee arthroplasty; Additional info: Status post left total knee arthroplasty, in pacu TECHNIQUE: Imaging protocol: Radiologic exam of the left knee. Views: 1 or 2 views. COMPARISON: CT knee LT [place]AM[place]TE [id number] 08/20/2024 10:01 AM FINDINGS: Bones/joints: Surgical clips in the soft tissue windows medial to the left knee are stable. Patient has had a left total knee arthroplasty. Hardware is well positioned. No acute fracture. No dislocation. Air in the left knee joint space, likely postsurgical in nature. Soft tissues: Air in the soft tissues surrounding the left knee joint space, likely postsurgical in nature. No radiopaque foreign body. Vasculature: Stable atherosclerotic calcifications in the visualized arteries. XR/XR knee LT 1-2V [id number] IMPRESSION: 1. Status post left total knee arthroplasty without evidence for complication. 2. Air in the left knee joint space and surrounding soft tissues, likely postsurgical in nature. 3. Incidental/nonacute findings are listed in the report.
[2024-09-15] MEDS: ePHEDrine 50 mg/mL Inj 10 MG IVP (13:47)
--- NOTE | 2024-09-15 14:16 | PC.NURSE ---
1410 - accepted into room 264 with DELVIN Bueno at side - dressing c/d/i - BP 112/68 - pulse 53 - 98% 022LNC - temp 97.5 - pt in no distress and appropriate upon this nurse exiting care
--- NOTE | 2024-09-15 14:22 | PM.OP ---
Operative Report Date of procedure: September 15, 2024 Pre-op diagnosis: Primary osteoarthritis left knee Post-op diagnosis: Primary osteoarthritis left knee Post-op findings: Full extension with large osteophytes and complete denudement of cartilage Procedure done: Left total knee arthroplasty with Parag guidance Implants: The [place] total knee system with a size 5 triathlon beaded cruciate retaining femur right, a triathlon titanium tibial component size 5 beaded, a triathlon X3 tibial bearing CS insert size 5 X 9 mm and a beaded triathlon titanium asymmetric patella size 38 x 11 mm Specimens removed/disposition: Bone, disposed of Pathology: None Surgeon: Charlee Sandoval MD Life Insurance Sales Agent: Eduarda Pickard, nurse practitioner who services were required for retraction, exposure, closure, and completion of the surgical procedure Anesthesia: Spinal (With MAC, ASA 4) Estimated blood loss (mL): 250 Tourniquet time (min): 0 (Not utilized) IV fluids (mL): 800 Urine output (mL): 300 Complications: None Findings: Severe degenerative osteoarthritis with large osteophytes. Condition: stable Disposition: PACU (Plan to floor for postoperative rehabilitation and pain management) Brief History: This 69-year-old gentleman presented to the office with complaints of left knee pain. Patient was seen in the office for evaluation of his left knee. Imaging studies demonstrated severe degenerative osteoarthritis. The patient followed up at the [facility] and had approval for proceeding with surgical intervention. He was previously canceled secondary to venous stasis in bilateral lower extremities and concern for possible infection. Patient understood the risks and complications of surgical intervention. Of note, the patient lives in a trailer without running water, and he states that he will not have anyone come to his home to provide physical therapy. He would like to go to a half-way facility for postoperative rehab, and he has discussed this with the [facility]. On the morning of surgery, risks and complications of surgery were again discussed. Questions were answered and the patient proceeds with the surgery. Procedure: The patient was brought to the operating theater, and after undergoing spinal anesthesia with sedation, ASA 4, which was well-tolerated. The left lower extremity was prepped with Dura-Prep and draped in usual fashion following placement of a tourniquet high on the leg. The leg was then draped free.? Tourniquet was not elevated throughout the surgical procedure. Prior to commencement of the procedure, a surgical pause was performed, and at the time of the surgical pause, we confirmed the site and side of surgery. Additionally, we confirmed the appropriate and timely administration of preoperative antibiotics, Ancef 2 g.? The availability of equipment was confirmed, and the patient's identity was verbalized as well. Following the surgical pause, an incision was made centering over the patella continuing proximally and distally as necessary to allow access to the knee joint. Dissection continued through skin and soft tissues using a scalpel. Hemostasis was obtained using electrocautery. The skin incision was followed by a median parapatellar arthrotomy. The leg was extended and the patella was able to be displaced laterally.? Appropriate arrays and markers were placed in appropriate position for use of the Parag.? Preoperative planning had been accomplished and was discussed in detail with the [facility] account services representative.? Intraoperative mapping of the femur and tibia was accomplished after the arrays were placed.? Internal markers were also placed.? Once we had accomplished the Parag mapping, we began the appropriate resections for placement of the prosthesis.? The plan was for a cruciate retaining left total knee arthroplasty. Retraction was established using manual retraction and also the Parag leg positioner and retractors.? The knee was evaluated.? There was significant osteoarthritic change.? Appropriate bone resection was accomplished using the Parag.? The femur was sized to a size 5 as well as the tibia.? Initial resection was accomplished on the tibia followed by appropriate resections on the femur. We had performed a medial release at the beginning of the procedure to allow for placement of the array. Proximal tibia was evaluated and it was felt that appropriate size for the tibia was a size 5.? Tray was noted to fit nicely with good coverage.? Rim fit was accomplished with the size 5. A trial reduction was accomplished after osteophytes have been removed as well as the medial and lateral menisci.? We had removed the anterior cruciate ligament at the beginning of the case and preserved the posterior cruciate ligament.? Trial reduction was accomplished with a size 5 femoral cruciate retaining component, a size 5 tibial tray and a size 5 CS tibial bearing insert which was 9 mm. Alignment was felt to be appropriate as well.? There was excellent flexion and full extension without lift off of the components. Rotation of the tibia was marked. Trial components were removed after the femur had been drilled.? Prior to removal of the tibial tray which had been pinned in position with appropriate rotation as determined by the Parag plan, we broached the tibia.? Subsequently, the 4 drill holes were made for the prosthetic component.? All trial components were removed, and the wound was irrigated.? Plans were made for insertion of the prosthetic components.? Prior to this, the patella was manually prepared.? After resection of the articular surface with the jogging system, it was measured and measured a 38 mm patella.? We resected approximately 10 mm of patella.? Patellar height was restored with the patellar component. Once again, the wound was irrigated. The Tritanium tibia was impacted into position.? The beaded femur was then impacted into position in a cementless fashion. The CS tibial insert was placed prior to placement of the femoral component. The patella was pressed into position with a patellar clamp.? Exparel was injected about the components deep and superficially.? The knee was then copiously irrigated with betadine and saline and suctioned dry. Attention was then directed to closure. Closure was accomplished with 0 Vicryl in the fascial tissues.? The suture line of 0 Vicryl was supplemented with strata fix, #1, with a running suture from proximal to distal and a second running stitch from distal to proximal.? This was followed by Surgiflo and vancomycin powder.? Following this, a 2-0 Strata Fix was used in the subcutaneous tissues, and the skin was closed with 3-0 Strata fix.? Care was taken to assure an excellent subcutaneous as well as skin closure.? A sterile dressing was then placed consisting of Dermabond Prineo, OpSite, ABD, sterile soft roll, and an Denis wrap including over the foot. The patient was returned the Recovery Room in a satisfactory condition. X-rays were obtained and reviewed there.? The patient will be discharged to the floor for postoperative rehabilitation and pain management. Related Problem List Diagnoses (1) Primary osteoarthritis of left knee:
[2024-09-15] MEDS: ipratropium-albuterol 3 mL Neb INHALATION ×2 (15:11→20:52)
[2024-09-15] MEDS: sevelamer 800 mg Tablet 2400 MG PO ×2 (15:31→20:32)
[2024-09-15] MEDS: oxyCODONE 5 mg IR Tab/Cap 10 MG PO ×2 (15:31→20:34)
[2024-09-15] MEDS: tranexamic acid 1,000 MG/100 ML PREMIX 600 MG IV (15:45)
[2024-09-15] MEDS: sennosides-docusate Tablet 2 TAB PO (17:41)
[2024-09-15] MEDS: chlorhexidine gluconate 0.12% Btl 473 mL 30 ML MUCOUS MEM ×2 (17:41→20:35)
[2024-09-15] MEDS: iron polysaccharide complex 150 mg Capsule PO (17:41)
[2024-09-15] MEDS: calcium carbonate 500 mg Chew Tablet 1000 MG PO (17:41)
[2024-09-15] MEDS: tamsulosin 0.4 mg Capsule PO (17:41)
[2024-09-15] MEDS: apixaban 5 mg Tablet PO (17:41)
[2024-09-15] MEDS: metoprolol tartrate 50 mg Tablet 100 MG PO (17:41)
[2024-09-15] MEDS: mupirocin oint 22 gm 1 APPLIC NASAL (17:42)
[2024-09-15] MEDS: CELEcoxib 200 mg Capsule PO (20:32)
[2024-09-15] MEDS: budesonide 0.5 mg/2 mL Neb INHALATION (20:52)
[2024-09-16] VITALS (7 sets, daily range): BP systolic 117–121; BP diastolic 56–69; PULSE 58–67; RESP 18–20; TEMP 36.5–36.7; O2SAT 92–98
[2024-09-16] MEDS: acetaminophen 1,000 MG/100 ML PIGGYBACK 400 MG IV ×2 (01:49→08:54)
[2024-09-16] MEDS: ceFAZolin 2,000 mg SDV 2000 MG IVP ×2 (01:49→09:34)
[2024-09-16] MEDS: loratadine 10 mg Tablet PO (05:38)
[2024-09-16] MEDS: potassium chloride ER 10 mEq Tablet PO (05:38)
[2024-09-16] MEDS: FUROsemide 40 mg Tablet PO (05:38)
[2024-09-16] MEDS: digoxin 250 mcg Tablet PO (05:38)
[2024-09-16 05:54] LABS: Basophils % 0.2 %; Eosinophils # 0.1 10^3/uL (0.0-0.8); Eosinophils % 1.1 %; Hematocrit 32.5 % (37-53); Lymphocytes # 0.4 10^3/uL (0.8-4.8); Lymphocytes % 8.4 %; Mean Corpuscular HGB Conc 30.2 g/dL (30-55); Mean Corpuscular Volume 86.2 fl (82-101); Mean Platelet Volume 9.7 fL (7.4-10.4); Monocytes # 0.5 10^3/uL (0.2-0.9); Monocytes % 11.3 %; Neutrophils # 3.49 10^3/uL (1.8-7.7); Neutrophils % 78.8 %; Nucleated Red Blood Cells % 0 %; Platelet Count 144 10^3/cmm (157-399); Red Blood Count 3.77 10^6/uL (3.85-5.65); Red Cell Distribution Width 17.2 % (12.1-15.1); White Blood Count 4.43 10^3/uL (3.29-11.43)
[2024-09-16 06:10] LABS: Anion Gap 13.8 (5-19); Blood Urea Nitrogen 19 mg/dL (8-23); Calcium 8.4 mg/dL (8.5-10.5); Carbon Dioxide 28 mmol/L (22-29); Chloride 101 mmol/L (98-107); Creatinine Clr Calc Pharmacy 79.2209; Glomerular Filtration Rate 73.9 mL/min (90-130); Glucose 140 mg/dL (65-115); Osmolality Calculated 291 mOsm/kg (285-295); Potassium 4.8 mmol/L (3.5-5.1); Sodium 138 mmol/L (136-145)
--- NOTE | 2024-09-16 06:12 | PC.NURSE ---
This nurse noticed patients heart rate was 58. Nurse advised patient that nurse would hold his morning dose of digoxin due to heart rate. Patient stated I have to take it or my heart rate will be too high. This nurse tried to educate patient of taking digoxin when their heart rate is below 60. Patient insisted on taking digoxin. This nurse adminstered the medication as ordered. This nurse will continue to monitor patients heart rate.
[2024-09-16] MEDS: oxyCODONE 5 mg IR Tab/Cap 10 MG PO (07:46)
[2024-09-16] MEDS: iron polysaccharide complex 150 mg Capsule PO (07:46)
[2024-09-16] MEDS: ipratropium-albuterol 3 mL Neb INHALATION (07:55)
[2024-09-16] MEDS: budesonide 0.5 mg/2 mL Neb INHALATION (07:55)
[2024-09-16] MEDS: cholecalciferol (vitamin D3) 1,000 unit Tablet 1000 UNIT PO (08:53)
[2024-09-16] MEDS: sertraline 50 mg Tablet PO (08:53)
[2024-09-16] MEDS: pantoprazole DR 40 mg Tablet PO (08:53)
[2024-09-16] MEDS: sevelamer 800 mg Tablet 2400 MG PO (08:53)
[2024-09-16] MEDS: calcium carbonate 500 mg Chew Tablet 1000 MG PO (08:53)
[2024-09-16] MEDS: CELEcoxib 200 mg Capsule PO (08:53)
[2024-09-16] MEDS: levothyroxine 125 mcg Tablet PO (08:53)
[2024-09-16] MEDS: gabapentin 300 mg Capsule PO (08:53)
[2024-09-16] MEDS: metoprolol tartrate 50 mg Tablet 100 MG PO (08:54)
[2024-09-16] MEDS: multivitamin therapeutic Tablet 1 TAB PO (08:54)
[2024-09-16] MEDS: tamsulosin 0.4 mg Capsule PO (08:54)
[2024-09-16] MEDS: sennosides-docusate Tablet 2 TAB PO (08:54)
[2024-09-16] MEDS: apixaban 5 mg Tablet PO (08:54)
[2024-09-16] MEDS: mupirocin oint 22 gm 1 APPLIC NASAL (08:59)
[2024-09-16] MEDS: insulin glargine 100 units/1 mL 10 UNIT SUBCUT (08:59)
[2024-09-16] MEDS: chlorhexidine gluconate 0.12% Btl 473 mL 30 ML MUCOUS MEM (08:59)
--- NOTE | 2024-09-16 09:12 | PC.CHAP ---
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 golf cart repairer visit [] Patient/Family/Request visit [] Outpatient visit [] Follow-up visit [] Physician referral [] Code/Alert [] Routine visit [] Staff referral [] Actively dying [x] Patient sleeping [] Family support [] [] Out of room [] Palliative care [] [] Receiving care in room [] Pre-surgical visit [] Trauma [] Long length of stay [] ICU visit [] Other: Relational/Emotional Strength [] Patient feels connected with others/family/visitors/staff [] Distress [] Loneliness/isolation [] Abandonment Spirituality of Patient [] Person of [place] [] Attends Mu-Ism of their [place] [] Believes in Prayer [] Reads Bible or Congregational materials [] There are Spiritual issues to be addressed 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 Interventions [] Prayer [] Active listening [] Non-anxious presence [] Spiritual/emotional support [] Crisis/trauma care [] Spiritual counseling [] Bereavement support [] Provided bereavement packet [] Provided Bible/devotional materials [] Provided toy/stuffed animal, coloring book to patient or family member [] Provided Communion [] Anointing/[place] [] Salvation [] Completed spiritual assessment [] Other: Impact on Illness or Injury [] Angry [] Fearful [] Anxious [] Often cries [] Exhaustion [] Unable to work [] Unable to attend church [] Unable to walk/stand [] Unable to read [] Unable to drive [] Unable to eat/drink [] Unable to sleep [] Unable to be with family [] Patient intubated [] Other: Summary Time spent with patient
--- NOTE | 2024-09-16 10:25 | PM.DCS ---
Discharge Providers Date of Admission: 09/15/24 14:20 Date of Discharge: September 16, 2024 Attending Provider at Admission: Charlee Sandoval MD Attending Provider at Discharge: Charlee Sandoval MD Primary Care Provider: PATO Hernandez Diagnoses at Discharge Discharge Diagnosis (1) Primary osteoarthritis of left knee: Status: Chronic (2) Status post total left knee replacement not using cement: Status: Acute Permanent problem details: Date of procedure: September 15, 2024 Diagnosis: Primary osteoarthritis left knee Procedure done: Left total knee arthroplasty with Parag guidance Implants: The [place] total knee system with a size 5 triathlon beaded cruciate retaining femur right, a triathlon titanium tibial component size 5 beaded, a triathlon X3 tibial bearing CS insert size 5 X 9 mm and a beaded triathlon titanium asymmetric patella size 38 x 11 mm Reason for Visit Reason for Visit: M17.12 Brief History: This 69-year-old gentleman presented to the office with complaints of left knee pain. Patient was seen in the office for evaluation of his left knee. Imaging studies demonstrated severe degenerative osteoarthritis. The patient followed up at the [facility] and had approval for proceeding with surgical intervention. He was previously canceled secondary to venous stasis in bilateral lower extremities and concern for possible infection. Patient understood the risks and complications of surgical intervention. Of note, the patient lives in a trailer without running water, and he states that he will not have anyone come to his home to provide physical therapy. He would like to go to a senior living facility for postoperative rehab, and he has discussed this with the [facility]. On the morning of surgery, risks and complications of surgery were again discussed. Questions were answered and the patient proceeds with the surgery. Hospital Course Hospital Course This 69-year-old gentleman was admitted to the hospital post total knee arthroplasty. Given multiple medical morbidities as well as living situation, he was planning for discharge to senior living. This had been approved through the [facility] prior to admission. On the first postoperative day, he was up in having worked with physical therapy. There was no evidence of DVT. Large outer dressings were changed. There was no significant bleeding. There was no evidence of ecchymosis. There was no evidence of DVT. The patient was discharged to senior living per [facility] recommendation. He will follow-up with me in the office as scheduled. Physical Exam Const: COMMON NORMALS: no acute distress, average body habitus, patient oriented x3 and alert GENERAL APPEARANCE: cooperative and comfortable ORIENTATION/CONSCIOUSNESS: Yes awake HENMT: COMMON NORMALS: normocephalic and atraumatic HEAD & SCALP: normocephalic and atraumatic Eye: GENERAL EYE: appearance normal, both eyes and all related structures Chest: COMMONS NORMALS: normal inspection of the chest Resp: COMMON NORMALS: normal respiratory effort EFFORT & INSPECTION: Yes able to speak in complete sentences and Yes symmetric chest movement Extremity: LEFT LOWER EXTREMITY: Yes knee joint (Large outer dressing removed.) Left knee: Yes inspection (Minimal to no ecchymosis.), Yes palpation (Minimal discomfort.), Yes ROM (Able to straight leg raise) and Yes neurovascular exam (Intact distally) Neuro: COMMON NORMALS: patient oriented x3 SENSORIUM/ORIENTATION: Yes alert Psych: COMMON NORMALS: mental status grossly normal APPEARANCE: Yes grossly normal ATTITUDE: Yes calm and Yes engaged ATTENTION/CONCENTRATION: Yes attention grossly intact Skin: COMMON NORMALS: no rashes or lesions noted GENERAL SKIN EXAM: no rashes or lesions noted Urinary Catheter Management: Andrade: Cath Placed During This Visit: yes, but has since been removed by the nurse Reason for Continuing Indwelling Catheter: Other Urinary Catheter Date of Insertion: 09/15/24 Urinary Catheter Time of Insertion: 10:30 Date Urinary Catheter Removed: 09/16/24 Time Urinary Catheter Discontinued: 05:49 Discharge Data Studies Completed and Pending Completed Studies During Hospitalization Category Date Time Status XR knee LT 1-2V 38811 Routine Exams 09/15/24 13:37 Completed Radiology Impressions Knee X-Ray 09/15/24 13:37 IMPRESSION: 1. Status post left total knee arthroplasty without evidence for complication. 2. Air in the left knee joint space and surrounding soft tissues, likely postsurgical in nature. 3. Incidental/nonacute findings are listed in the report. Laboratory Results WBC 4.43 10^3/uL (3.29-11.43) 09/16/24 05:22 RBC 3.77 10^6/uL (3.85-5.65) L 09/16/24 05:22 Hgb 9.80 g/dL (11.27-16.99) L 09/16/24 05:22 Hct 32.5 % (37-53) L 09/16/24 05:22 MCV 86.2 fl (82-101) 09/16/24 05:22 MCH 26.0 pg (27-33) L 09/16/24 05:22 MCHC 30.2 g/dL (30-55) 09/16/24 05:22 RDW 17.2 % (12.1-15.1) H 09/16/24 05:22 Plt Count 144 10^3/cmm (157-399) L 09/16/24 05:22 MPV 9.7 fL (7.4-10.4) 09/16/24 05:22 Neut % (Auto) 78.8 % 09/16/24 05:22 Lymph % (Auto) 8.4 % 09/16/24 05:22 [place] % (Auto) 11.3 % 09/16/24 05:22 Eos % (Auto) 1.1 % 09/16/24 05:22 Baso % (Auto) 0.2 % 09/16/24 05:22 Neut # (Auto) 3.49 10^3/uL (1.8-7.7) 09/16/24 05:22 Lymph # (Auto) 0.4 10^3/uL (0.8-4.8) L 09/16/24 05:22 [place] # (Auto) 0.5 10^3/uL (0.2-0.9) 09/16/24 05:22 Eos # (Auto) 0.1 10^3/uL (0.0-0.8) 09/16/24 05:22 Baso # (Auto) 0.0 10^3/uL (0.0-0.1) 09/16/24 05:22 Nucleated RBC % (auto) 0 % 09/16/24 05:22 Nucleated RBCs # 0.0 /100WBC 09/16/24 05:22 Sodium 138 mmol/L (136-145) 09/16/24 05:22 Potassium 4.8 mmol/L (3.5-5.1) 09/16/24 05:22 Chloride 101 mmol/L (98-107) 09/16/24 05:22 Carbon Dioxide 28 mmol/L (22-29) 09/16/24 05:22 Anion Gap 13.8 (5-19) 09/16/24 05:22 BUN 19 mg/dL (8-23) 09/16/24 05:22 Creatinine 1.0 mg/dL (0.7-1.2) 09/16/24 05:22 GFR Calculation 73.9 mL/min (90-130) L 09/16/24 05:22 Glucose 140 mg/dL (65-115) H 09/16/24 05:22 POC Glucose 120 mg/dL (70-110) H 09/15/24 08:27 Calculated Osmolality 291 mOsm/kg (285-295) 09/16/24 05:22 Calcium 8.4 mg/dL (8.5-10.5) L 09/16/24 05:22 Vitals Last Vital Signs Temp 97.7 F 09/16/24 09:48 Pulse 67 09/16/24 09:48 Resp 18 09/16/24 07:56 BP 117/56 09/16/24 09:48 Pulse Ox 92 09/16/24 09:48 O2 Del Method Nasal Cannula 09/16/24 09:48 O2 Flow Rate 1 09/16/24 09:48 Discharge Plan Discharge Patient Disposition: Xfer SNF Condition: Stable Prescriptions: New sennosides-docusate sodium [Stool Softener-Laxative] 8.6-50 mg Tablet 2 tab PO BID 30 Days Qty: 120 0RF acetaminophen 500 mg Tablet 1,000 mg PO Q8H 15 Days Qty: 90 0RF multivitamin with folic acid [Thera] 400 mcg Tablet 1 tab PO DAILY 30 Days Qty: 30 0RF oxycodone 5 mg tablet 5 mg PO Q4H PRN (Reason: pain) 7 Days Qty: 30 0RF Continued sertraline [Zoloft] 50 mg tablet 50 mg PO DAILY insulin glargine [Lantus Solostar U-100 Insulin] 100 unit/mL (3 mL) insulin pen 10 unit SUBCUT DAILY Qty: 15 0RF prochlorperazine maleate [Compazine] 10 mg tablet 10 mg PO Q4H PRN (Reason: Mild Nausea) Qty: 30 1RF Eliquis 5 mg Tablet 5 mg PO BID Qty: 60 0RF potassium chloride 20 mEq Tablet Extended Release 10 meq PO QAM furosemide [Lasix] 40 mg tablet 40 mg PO QAM Flomax 0.4 mg capsule 0.4 mg PO BID albuterol sulfate 90 mcg/actuation HFA aerosol inhaler 2 inh INHALATION Q4H PRN (Reason: shortness of breath or wheezing) Qty: 18 0RF (DME) pen needle, diabetic [BD Ultra-Fine Micro Pen Needle] 32 gauge x 1/4 needle See Rx Instructions .ROUTE .MEDSUPPLY Qty: 50 0RF Rx Instructions: As directed (DME) lancets Misc See Rx Instructions .ROUTE .MEDSUPPLY Qty: 100 0RF Rx Instructions: As directed (DME) blood-glucose meter [Blood Glucose Monitoring] Kit See Rx Instructions .ROUTE .MEDSUPPLY Qty: 1 0RF Rx Instructions: As directed Spiriva Respimat 1.25 mcg/actuation mist 2 inh inhalation Q24H Qty: 4 0RF sevelamer carbonate 800 mg Tablet 2,400 mg PO TID Rx Instructions: must administer with a meal/food calcium carbonate-vitamin D3 600 mg-5 mcg (200 unit) Tablet 1 tab PO DAILY omeprazole 40 mg Capsule,Delayed Release(Dr/Ec) 40 mg PO DAILY levothyroxine 125 mcg Tablet 125 mcg PO DAILY gabapentin 300 mg Capsule 300 mg PO TID magnesium citrate [Citrate of Magnesia] Solution 150 ml PO DAILY PRN (Reason: Constipation) dapagliflozin propanediol [Farxiga] 10 mg tablet 10 mg PO DAILY fluticasone propion-salmeterol [Advair Diskus] 100-50 mcg/dose blister with device 1 inh inhalation BEDTIME loratadine 10 mg tablet 10 mg PO QAM nitroglycerin [Nitrostat] 0.4 mg Tablet, Sublingual 0.4 mg SUBLINGUAL Q5M PRN (Reason: Chest Pain) Rx Instructions: do not exceed 3 doses per episode digoxin 250 mcg (0.25 mg) tablet 250 mcg PO QAM metoprolol tartrate 100 mg tablet 100 mg PO BID Qty: 60 0RF Held diclofenac sodium 1 % gel 4 g topical QID PRN (Reason: joint pain) Qty: 100 3RF Hold Instructions: Resume on 10/14/24. May use on other parts of body, but not to left knee Rx Instructions: apply to single knee, ankle, foot; for foot includes sole/toes/top of foot Discharge Orders: Discharge Order (Routine); Ordered 04/16/25 Ordered By: Charlee Cabrera: Charlee Sandoval MD [Physician] - 09/28/24 2:45 pm Discharge Diet: Advance as tolerated and Usual diet Discharge Activity: Increase activity as tolerated, Limit activity as instructed, Use walker/crutches as instructed and As per PT/OT instructions Patient Instructions: Oxycodone/Acetaminophen (By mouth), Acute Wound Care (DC), Total Knee Replacement (GEN), Post Anesthesia Care Activity Restrictions/Additional Instructions: Weight-bear as tolerated. Range of motion, gait training, and strengthening per physical therapy. You may shower and get your dressing wet, but do not submerge your knee in water. Keep the area clean. If the dressing begins to leak, you may change it, but otherwise, maintain until you are seen back in the clinic. Discharge Attestations Time Spent in Discharge Care*: greater than 30 min Specific Discharge Activities: educating patient, documenting/other paperwork and evaluating patient/reviewing data Status at Discharge: Cognitive status at discharge: cognitively intact, Behavioral status at discharge: cooperative, Quality Metrics Clinical Quality Measures [ No reported AMI, CVA or VTE this stay] 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 of Care Code Acute Code for Chg Fwd Diagnoses Primary osteoarthritis of left knee M17.12 Status post total left knee replacement not using cement Z96.652
== END 2024-09-16 11:00 | disposition skilled nursing facility (03) ==
LOC: MEDSURG 12:51
PROVIDERS: Admitting Provider Specialist; PCP Nurse Practitioner; Visit Provider Specialist
PROC: 8E0Y0CZ Robotic Assisted Procedure of Lower Extremity, Open Approach (ICD-10-PCS; CPT 27447; principal; 2024-09-15 09:45)
DX: M17.12 Unilateral primary osteoarthritis, left knee (principal); Z79.01 Long term (current) use of anticoagulants; E11.9 Type 2 diabetes mellitus without complications; Z79.4 Long term (current) use of insulin; K21.9 Gastro-esophageal reflux disease without esophagitis; Z75.1 Person awaiting admission to adequate facility elsewhere; J44.9 Chronic obstructive pulmonary disease, unspecified; Z99.81 Dependence on supplemental oxygen; I48.91 Unspecified atrial fibrillation; I25.10 Atherosclerotic heart disease of native coronary artery without angina pectoris; Z95.1 Presence of aortocoronary bypass graft; Z87.891 Personal history of nicotine dependence; Z79.84 Long term (current) use of oral hypoglycemic drugs; I11.0 Hypertensive heart disease with heart failure; Z85.46 Personal history of malignant neoplasm of prostate
CPT/HCPCS: 27447; 20985; 36415; 36416; 51702; 73560; 80048; 82962; 85025; 94640; 96372; 97110; 97116; 97161; 97165; A4216; C1776; G0378; J0131; J0171; J0666; J0690; J1815; J2371; J2704; J3370; J3490; J7030; J7613; J7626; J9999

== ENCOUNTER → 2024-10-06 10:48 | Outpatient (BNVA) | payer OTHER, SELFPAY | PROVIDERS: PCP Nurse Practitioner; Visit Provider Nurse Practitioner Family | DX: I25.118 Atherosclerotic heart disease of native coronary artery with other forms of angina pectoris (principal); I15.9 Secondary hypertension, unspecified; I48.0 Paroxysmal atrial fibrillation; Z79.01 Long term (current) use of anticoagulants; E78.2 Mixed hyperlipidemia; J43.2 Centrilobular emphysema; Z95.1 Presence of aortocoronary bypass graft; Z95.5 Presence of coronary angioplasty implant and graft; Z87.891 Personal history of nicotine dependence | CPT/HCPCS: 99213 ==

== ENCOUNTER → 2024-10-12 11:26 | Outpatient (BNVA) | payer OTHER, SELFPAY | PROVIDERS: PCP Nurse Practitioner; Visit Provider Nurse Practitioner | DX: Z98.890 Other specified postprocedural states (principal); Z96.652 Presence of left artificial knee joint | CPT/HCPCS: 73560; 73565; 99024 ==

== ENCOUNTER → 2024-11-13 10:14 | Outpatient (BNVA) | payer OTHER, SELFPAY | PROVIDERS: PCP Nurse Practitioner; Visit Provider Nurse Practitioner | DX: Z98.890 Other specified postprocedural states (principal); Z96.652 Presence of left artificial knee joint | CPT/HCPCS: 73560; 73565; 99024 ==

== ENCOUNTER 2024-12-11 10:52 | Oncology outpatient (recurring) (ONCR) | payer OTHER, SELFPAY | END 2024-12-31 23:59 | disposition home or self-care (01) | PROVIDERS: PCP Nurse Practitioner; Visit Provider Internal Medicine | DX: Z08 Encounter for follow-up examination after completed treatment for malignant neoplasm (principal); Z85.46 Personal history of malignant neoplasm of prostate; Z79.899 Other long term (current) drug therapy; Z92.3 Personal history of irradiation; Z92.21 Personal history of antineoplastic chemotherapy | CPT/HCPCS: 99214 ==

== ENCOUNTER → 2024-12-28 09:23 | Outpatient (BNVA) | payer OTHER, SELFPAY | PROVIDERS: PCP Nurse Practitioner; Visit Provider Nurse Practitioner | DX: Z98.890 Other specified postprocedural states (principal); Z96.652 Presence of left artificial knee joint | CPT/HCPCS: 73560; 73565; 99214 ==

== ENCOUNTER → 2025-01-25 10:44 | Outpatient (BNVA) | payer OTHER, SELFPAY | PROVIDERS: PCP Nurse Practitioner; Visit Provider Nurse Practitioner | DX: Z96.652 Presence of left artificial knee joint (principal); Z98.890 Other specified postprocedural states | CPT/HCPCS: 99213 ==

== ENCOUNTER 2025-01-28 12:04 | Inpatient (IN) | payer OTHER, MEDICARE, SELFPAY ==
--- OUTSIDE RECORDS SUMMARY | 2024-10-05 06:10 | XMS_ITS ---
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 Shepherd about a prostatectomy, he denied being on androgen ablation, we requested records from oncology in [place] to determine what his plan of care was He was having issues with urgency and frequency, we placed him on Gemtesa for 4 weeks to see if that would help his issues He was supposed to have a bone density test Progress Notes * AYESHA SEA BRIDGESDOB:1955 (69 yo M)Acc No.[id number]:10/05/2024 Progress Notes Patient: SEA BELL Provider: PATO Stover :1955 A ge:69 Y S ex:Male Date:10/05/2024 Address:[place] [address], [facility] Subjective: * Chief Complaints: * 3 month f/u with psa ua pvr and bone density * HPI: Giovanny slade Note: 68-year-old male presents to the clinic for follow-up Last seen in July 2024 prostate cancer, Treated with EBRT +5 = 10 prostate cancer ADT in [place] with oncology PSA was less than 0.014 in 2023 Tamsulosin twice daily Bone scan performed at [facility] on 03/07/2024 show no osseous lesions suspicious for metastatic disease, soft tissue contour is normal, kidneys normal, degenerative type uptake in both shoulders and AC joints, degenerative uptake in both knees and ankles No evidence of osseous metastatic disease Patient went to talk to Dr. Shepherd about a prostatectomy, he denied being on androgen ablation, we requested records from oncology in [place] to determine what his plan of care [...] * Electronic signature of PATO Saldana on 01/28/2025 at 12:21 PM CDT Sign off status: Pending * Provider: PATO Stover Date: 0 10/05/2024 Generated for Halie flowers/Fiordaliza/Quinn on: 0 01/28/2025 12:21 PM CDT
[2025-01-28] VITALS (35 sets, daily range): BP systolic 91–142; BP diastolic 41–81; PULSE 73–120; RESP 15–31; TEMP 37.1–38.8; O2SAT 90–99; BMI 27.9; BMI 28.1
--- NOTE | 2025-01-28 12:09 | ECG_ITS ---
[facility] 2025-[facility]28 Pat Name: Gabino Jones Department: Room: Gender: Male Staff Climate Scientist: : 1955 Requested By: Job Summers Order Number: [id number] Mick MD: Favio Ferguson M.D. Measurements Intervals [place]k Rate: 114 P: 0 NC: 0 QRS: 82 QRSD: 136 T: -29 QT: 353 QTc: 488 Interpretive Statements ATRIAL FIBRILLATION WITH RAPID VENTRICULAR RESPONSE RIGHT BUNDLE BRANCH BLOCK [120+ ms QRS DURATION, UPRIGHT V1, 40+ ms S IN I/aVL/V4/V5/V6] Compared to ECG 07/09/2024 09:57:39 ST (T wave) deviation no longer present Electronically Signed On 01-29-2025 22:42:22 CDT by Favio Ferguson M.D. [id number]
--- NOTE | 2025-01-28 12:09 | XR_ITS ---
WS: [id number] Exam: XR chest 1V portable [id number] Date/Time of Exam: 01/28/2025 12:09 PM Reason For Exam: chest pain Comparison 07/09/2024. Extensive chronic airspace and interstitial infiltrates in the mid and lower lung zones. Probable small LEFT basal pleural effusion. The heart is enlarged. Emphysematous changes and honeycombing in the upper lung zones. Median sternotomy and signs of CABG surgery. IMPRESSION1. Extensive chronic airspace and interstitial changes in the mid and lower lung zones. 2. Probable small LEFT basal pleural effusion. 3. Cardiac enlargement unchanged. 4. Advanced emphysematous changes and honeycombing.
--- OUTSIDE RECORDS SUMMARY | 2025-01-28 12:21 | XMS_ITS | Encounter Summary ---
Author Organization [employer] Address [address] [place] [address] Care Team Providers Care Institutional Nutrition Consultant Name Role Phone Unavailable Primary Care Provider Unavailabl e Reason for Visit * Reason Onset Date Comments Information 01/21/2025 Encounter Details Date Type Department Care Team (Late st Contact Info) Description 01/21/2025 Telephone [facility] [place] [address] [place] [address] Hannah Powell MD [address] [place] [address] Information Social History Tobacco Use Types Packs/Day Years Used Date Smoking Tobacco: Former Cigarettes 5 52 1 07/13/1964 - 05/12/2017 Passive Smoke Exposure: Past Smokeless Tobacco: Never Alcohol Use Standard Drinks/Week Comments Never 0 (1 standard drink = 0.6 oz pur e alcohol) Feeling Safe Answer Date Recorded Are you in a relationship wi th someone who hurts you emotionally and/or physically? No 01/18/2025 Food Insecurity Answer Date Recorded Patient needs follow up regardin 01/06/2025 Transportation Needs Answer Date Record ed Patient needs follow up regardin 01/06/2025 Housing Stability Answer Date Recorded Patient needs follow up regarding: Not on file 08/07/2023 Utility Needs Answer Date Recorded Patient needs follow up regardin 01/06/2025 Education Answer Date Recorded What is the highest level of school you have completed or the highest degree you have received? GED or equivalent 10/2022 Sex and Gender Information Value Date Recorded Sex Assigned at Not on file Legal Sex Male 2:12 PM CDT Gender Identity Not on file Sexual Orientation Not on file documented as of this encounter Miscellaneous Notes * Telephone Encounter - Luis Fernando Banegas - 01/21/2025 4:05 PM CDT Couldn't get a hold of Gabino if he calls back schedule him as next available --- Message from Kiet sent at 01/20/2025 9:46 AM CDT ----- Regarding: natalie Contact: OD seeing double and vision issues. Hasn't been seen since since august 2023 and now wants to be seen. Notes from his last visit are below. Can I reschedule for next available or does this pt need in sooner? Please advise. Thank you Return in about 3 months (around 11/07/2023) for OCT OU, DILATE OU. documented in this encounter Plan of Treatment Upcoming Encounters Date Type Department Care Team (Late st Contact Info) Description 03/02/2025 11:10 AM CDT Office Visit [facility] [place] [address] [place] [address] Hannah Powell MD [address] [place] [address] 03/03/2025 2:30 PM CDT Ancillary Procedure [facility]- [place] [address] [place] [address] Kaden Mayer MD [address] [place] [address] 03/03/2025 3:45 PM CDT Office Visit [facility] Vascular Surgery [place] [address] [place] [address] Kaden Mayer MD [address] [place] [phone] documented as of this encounter Visit Diagnoses Not on filedocumented in this encounter Additional Health Concerns Assessment Noted Time PHQ-9 Depression Total Score: 2 09/06/19 23 11:43 PM CDT documented as of this encounter
--- OUTSIDE RECORDS SUMMARY | 2025-01-28 12:21 | XMS_ITS | Clinical Summary ---
Author Organization [facility] Address [address] [address] Phone Care Team Providers Care Care Mgr Name Role Phone Unavailable Primary Care Provider Unavailabl e Allergies No known active allergies Medications apixaban (ELIQUIS) 5 mg tablet Take 5 mg by mouth 2 times daily. Active potassium chloride (K-TAB) 20 mEq Extended Release tablet Take 20 mEq by mouth daily. Active tiotropium (SPIRIVA RESPIMAT) 2.5 mcg/actuation Mist Take by inhalation daily. Active digoxin (LANOXIN) 250 mcg (0.25 mg) tablet Take 250 mcg by mouth daily. Active albuterol sulfate HFA 90 mcg/actuation aerosol inhaler Take 2 Puffs by inhalation every 6 hours as needed for Shortness of Breath. Active nitroglycerin 0.[address] 0.4 mg under tongue every 5 minutes as needed for Chest Pain. Active prochlorperazin e maleate 10 mg tablet Take 10 mg by mouth every 6 hours as needed for Nausea/Emesis. Active tamsulosin 0.4 mg capsule Take 0.4 mg by mouth daily. Active loratadine (CLARITIN) 10 mg tablet 10 mg. 023 Active omeprazole (PriLOSEC) 40 mg Capsule, Delayed Release(E.C.) Take 40 mg by mouth daily. Active dorzolamide-андрей oloL (COSOPT) 22.3-6.8 mg/mL solution Administer 1 Drop in right eye 2 times daily. 10 mL 1 024 Active calcium as CARBONATE-vitam in D3 (CALCIUM 500+D) 500 mg-5 mcg (200 unit) tablet Take 1 Tablet by mouth daily. Active FLUTICASONE PROPION-SALMETE ROL INHALATION Take by inhalation. Active furosemide (LASIX) 40 mg tablet Take 40 mg by mouth daily. Active gabapentin (NEURONTIN) 300 mg capsule Take 300 mg by mouth. Active insulin glargine (LANTUS) 100 unit/mL pen syringe Inject 10 Units by subcutaneous injection daily with breakfast. Active levothyroxine 125 mcg tablet Take 125 mcg by mouth daily in the morning. Active metoprolol tartrate (LOPRESSOR) 100 mg tablet Take 100 mg by mouth 2 times daily. Active aspirin (ECOTRIN EC) 81 mg Tablet, Delayed Release (E.C.) Take 1 Tablet (81 mg) by mouth daily. 90 Tablet 3 Active clopidogreL (PLAVIX) 75 mg Tablet Take 1 Tablet (75 mg) by mouth daily. 90 Tablet 3 025 Active HYDROcodone-nico taminophen (NORCO) 5-325 mg tabletIndicatio ns:PAD (peripheral artery disease),Post-o perative pain Take 1 Tablet by mouth every 6 hours as needed for Pain, Moderate. Max Daily Amount: 4 Tablets 10 Tablet Active ipratropium-alb uteroL (DUONEB) 0.5 mg-3 mg(2.5 mg base)/3 mL Solution for Nebulization Take 3 mL by inhalation every 6 hours. 2024 Discontinued ferrous gluconate 324 mg (38 mg iron) tablet Take 324 mg by mouth. 2024 Discontinued nitroglycerin (NITROSTAT) 0.3 mg Tablet, Sublingual Place 0.3 mg under tongue every 5 minutes as needed. Prn for chest pain 2024 Discontinued aspirin 325 mg tablet,delayed release Take 325 mg by mouth daily. 2024 Discontinued atorvastatin 20 mg tablet Take 20 mg by mouth daily. 2024 Discontinued olodateroL 2.5 mcg/actuation Mist Take by inhalation. 2024 Discontinued TIOTROPIUM BROMIDE INHALATION Take 2 Puffs by inhalation daily. 2024 Discontinued digoxin 125 mcg (0.125 mg) tablet Take 125 mcg by mouth daily. 2024 Discontinued(D uplicate Therapy) predniSONE (DELTASONE) 5 mg tablet Take 5 mg by mouth daily. 2024 Discontinued metoprolol tartrate (LOPRESSOR) 50 mg tablet Take 75 mg by mouth 2 times daily. Take 75 mg two times daily. 2024 Discontinued budesonide (PULMICORT RESPULE) 0.5 mg/2 mL Suspension for Nebulization INHALE 2ml PER nebulizer TWICE DAILY 024 2024 Discontinued ferrous sulfate 325 mg (65 mg iron) tablet 325 mg. 023 2024 Discontinued ipratropium-alb uteroL (DUONEB) 0.5 mg-3 mg(2.5 mg base)/3 mL Solution for Nebulization INHALE 1 VIAL (3ML) BY NEBULIZATION EVERY 6 HOURS FOR BREATHING 023 2024 Discontinued predniSONE (DELTASONE) 20 mg tablet Take 2 Tablets by mouth daily. 024 2024 Discontinued Active Problems Problem Noted Date Diagnosed Date Abrasion, left lower leg, initial encounter 11/2024 Age-related nuclear cataract, bilateral 01/07/20 25 Anxiety state 01/06/2025 Atrial fibrillation 01/06/2025 Candidal stomatitis 01/06/2025 Depressive disorder 01/06/2025 Dyspnea, unspecified 01/06/2025 Elevated PSA 01/06/2025 Encounter for therapeutic drug level monitoring 01/06/2025 Epididymitis, right 01/06/2025 Functional dyspepsia 01/06/2025 Gastroesophageal reflux disease 01/06/2025 Hemorrhage of anus and rectum 01/06/2025 Homeless 01/06/2025 Inguinal hernia 01/06/2025 Ischemic heart disease 01/06/2025 Low back pain 01/06/2025 Nausea with vomiting, unspecified 01/06/2025 Old myocardial infarction 01/06/2025 Other chest pain 01/06/2025 Peptic ulcer without hemorrh age, perforation, or obstruction 01/06/2025 Problem related to housing a nd economic circumstances, unspecified 01/06/2025 Splenomegaly 01/06/2025 Zoster without complications 01/06/2025 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 [address] [place] [address] Hannah Powell MD Information 01/18/2025 2:57 PM CDT Anesthesia Event [facility] Operating Room [address] [place] [address] Ronnie Camejo DO 01/18/2025 1:12 PM CDT - 01/18/2025 2:33 PM CDT Surgery [facility] Operating Room [address] [place] [address] Kaden Mayer MD FEMORAL ANGIOGRAPHY WITH INTERVENTION 01/18/2025 10:50 AM CDT - 01/19/2025 12:40 PM CDT Hospital Encounter [facility] 3A Surgical [address] [place] [address] Kaden Mayer MD Peripheral vascular disease, unspecified Discharge Disposition: Home or Self Care 01/18/2025 6:52 AM CDT - 01/18/2025 11:59 PM CDT Hospital Encounter [facility] Interventional Radiology [place] [address] [place] [address] Kaden Mayer MD Discharge Disposition: Home or Self Care 01/12/2025 External Device Data STL ABSTRACTION Provider, Abstract 01/12/2025 External Device Data STL ABSTRACTION Provider, Abstract 01/11/2025 Telephone [facility] [place] [address] [place] [address] Kaden Mayer MD Follow Up 01/06/2025 2:45 PM CDT - 01/06/2025 11:59 PM CDT Hospital Encounter [facility] Pre Admission Testing Center [place] [address] [place] [address] Kaden Mayer MD Discharge Disposition: Home or Self Care 01/06/2025 1:00 PM CDT Office Visit [facility] [address] [place] [address] Kaden Mayer MD PAD (peripheral artery disease) (Primary Dx); Encounter for preadmission testing 01/06/2025 Telephone [facility] Surgery [address] [place] [address] Kaden Mayer MD Surgery Talk 01/04/2025 Telephone [facility] [address] [place] [address] Kaden Mayer MD Appointment Verification 12/22/2024 External Device Data STL ABSTRACTION Provider, Abstract 12/22/2024 External Device Data STL ABSTRACTION Provider, Abstract 12/21/2024 Telephone [facility] [address] [place] [address] Kaden Mayer MD Appointment Notification 12/17/2024 Orders Only [facility] [address] [place] [address] Provider, Abstract from Last 3 Months Immunizations Immunization Administration Dates Next Due (ADACEL/BOOSTRIX)(10 YR UP) TDAP VACCINE, 0.5ML, IM 11/07/2010 (JOSÉ MIGUEL) COVID-19 VACCINE - EMERGENCY USE AUTHORIZATION, AD26,COV2S(PF) 0.5 ML IM SUSP 04/07/2021 (PNEUMOVAX 23)(50 YRS UP) PN EUMOCOCCAL POLYSACCHARIDE (PPV23) 0.5 ML, IM 03/17/2019,03/22/2018,01/20/2018 (PREVNAR 20)(6 WKS UP) PNEUM OCOCCAL CONJUGATE VACCINE 20-VALENT (PCV20), POLYSACCHARIDE PQC150 CONJUGATE, ADJUVANT 0.5 ML (PF) IM 02/06/2022 (SHINGRIX)(50 YRS UP) ZOSTER VACCINE RECOMBINANT, 0.5 ML, IM 12/09/2020,08/30/2020 (TDVAX)(7 YRS UP) TETANUS AN D DIPHTHERIA TOXOIDS, ADSORBED (2 LF OF TETANUS TOXOID AND 2 LF OF DIPHTHERIA TOXOID), 0.5ML (PF), IM 08/30/2020 INFLUENZA VACCINE QUADRIVALE NT 6 MOS UP PF IM 03/06/2021,04/05/2020,03/17/2019,03/26 Influenza, Unspecified Formulation 03/03,03/03/2015,03/20/2012,04/11,07/11/2010,04/28/2008,05/07/2005 ,04/12/2004 Pneumococcal vaccine, unspec ified formulation 08/01/2010,03/23/2003 Td(adult) Unspecified Formulation 03/23/2003,06/2000 Family History Medical History Relation Name Comments Other Father Tuberculosis Heart Disease Mother Colon Cancer Neg Hx Relation Name Status Comments Father Mother Social History Tobacco Use Types Packs/Day Years Used Date Smoking Tobacco: Former Cigarettes 5 52 1 07/13/1964 - 05/12/2017 Passive Smoke Exposure: Past Smokeless Tobacco: Never Tobacco Cessation:Counseling Given: Not Answered Alcohol Use Standard Drinks/Week Comments Never 0 [...] on file Sexual Orientation Not on file Last Filed Vital Signs Vital Sign Reading Time Taken Comments Blood Pressure 134/65 01/19/2025 8:05 AM CDT Pulse 77 01/19/2025 8:05 AM CDT Temperature 36.7 C (98.1 F) 01/19/2025 8:05 AM CDT Respiratory Rate 16 01/19/2025 8:05 AM CDT Oxygen Saturation 90% 01/19/2025 8:05 AM CDT Inhaled Oxygen Concentration - - Weight 92 kg (202 lb 13.2 oz) 01/19/2025 4:36 AM CDT Height 162.6 cm (5' 4 ) 01/18/2025 6:10 PM CDT Body Mass Index 34.81 01/18/2025 6:10 PM CDT Plan of Treatment Upcoming Encounters Date Type Department Care Team (Late st Contact Info) Description 03/02/2025 11:10 AM CDT Office Visit [facility] Op[facility] [place] [address] [place] [address] Hannah Powell MD [address] [place] [address] 03/03/2025 2:30 PM CDT Ancillary Procedure [facility]- [place] [address] [place] [address] Kaden Mayer MD [address] [place] [address] [place] [address] 03/03/2025 3:45 PM CDT Office Visit [facility] Surgery [place] [address] [place] [address] Kaden Mayer MD [address] [place] [address] [place] [address] Health Maintenance Due Date Last Done Comments DIABETES ANNUAL FOOT EXAM 1972 DIABETES MICROALBUMIN ANNUAL SCREEN 1972 LDL CHOLESTEROL ANNUAL 1972 COLORECTAL SCREENING 08/23/1999 Colorectal Cancer Screening 08/23/1999 FIT-DNA Q 3 years 08/23/1999 FIT/FOBT Q 1 year 08/23/1999 Flex Sig/CT Colonography Q 5 years 08/23/1999 Lung Cancer Screening 2004 RSV VACCINE (60+ or ) (1 - Risk 60-74 years 1-dose series) 2014 Abdominal Aortic Aneurysm (A AA) Screening 08/23/2019 COVID-19 Vaccine (2023-2 5 season) 2024 02/06/2022, 04/07/2021, 10/04/2020 INFLUENZA VACCINE (#1) 2025 , 03/06/2021, 04/05/2020, Additional history exists DIABETES ANNUAL RETINAL EXAM 03/26/2025, 12/17/2023, 08/07/2023, Additional history exists DIABETES HBA1C Q 6 MONTHS 06/25/2025 12/23/2024 DTAP/TDAP/TD VACCINES (3 - T d or Tdap) 08/30/2030 08/30/2020, 11/07/2010, 03/23/2003, Additional history exists ZOSTER VACCINE Completed 12/09/2020, 08/30/2020 PNEUMOCOCCAL VACCINE 50+ YEARS Completed 0 02/06/2022, 03/17/2019, 03/22/2018, Additional history exists Medical Devices Implanted Type Area Supervisor [place] Device Identifier Shelf Expiration Date Model / Serial / Lot Dev Closure Angioseal 6fr Vip [id number] - [id number] Implanted:Qty : 1 on 01/18/2025 by Kaden Mayer MD at [facility] Closure Device Right: Groin TERUMO- CARDIOVASC SYS [id number] 09/21/2025 [id number] / / [id number] Stent Vasc Innova [id number] Implanted:Qty : 1 on 01/18/2025 by Kaden Mayer MD at [facility] Stent Left: Superficial Femoral Artery [employer] [id number] 08/05/2029 [id number] / / [id number] Procedures Procedure Name Priority Date/Time Associated Diagnosis Comments TELEMETRY REPORT 01/20/2025 2:08 AM CDT CBC WITH DIFFERENTIAL Routine 01/19/2025 5:46 AM CDT POC GLUCOSE Routine 01/18/2025 3:58 PM CDT IR FLUORO OR OTHER Routine 01/18/2025 3: 52 PM CDT PVD (peripheral vascular disease) POC ACTIVATED CLOTTING TIME Routine 01/18/2025 3:30 PM CDT VASCULAR STENT INSERTION ARTERIAL 01/18/2025 1:12 PM CDT Peripheral vascular disease, unspecified CHG ANGIOGRAPHY EXTREMITY UNILATERAL RS&I 01/18/2025 1:12 PM CDT Peripheral vascular disease, unspecified POC GLUCOSE Routine 01/18/2025 12:09 PM CDT VERIFICATION BLOOD GROUP Stat 01/06/2025 3:35 PM CDT BLOOD BANK AB IDENT Routine 01/06/2025 3 :15 PM CDT Encounter for preadmission testing RED BLOOD CELL ANTIGEN TYPE Routine 01/06/2025 3:15 PM CDT Encounter for preadmission testing TYPE AND SCREEN Routine 01/06/2025 3:15 PM CDT Encounter for preadmission testing PROTIME-INR Routine 01/06/2025 3:15 PM CDT Encounter for preadmission testing BASIC METABOLIC PANEL Routine 01/06/2025 3:15 PM CDT Encounter for preadmission testing CBC WITH DIFFERENTIAL Routine 01/06/2025 3:15 PM CDT Encounter for preadmission testing EKG 12-LEAD Routine 01/06/2025 3:08 PM CDT Encounter for preadmission testing HI DUP/COPY PATIENT'S RECORDS Routine 12/17/2024 11:39 AM CDT from Last 3 Months Results * TELEMETRY REPORT (01/20/2025 2:08 AM CDT) us Provider Scanning ECG ORDERABLES Final Result * (ABNORMAL) CBC WITH DIFFERENTIAL (01/19/2025 5:46 AM CDT) Only the most recent of2 resultswithin the time period is included. [facility] WBC 3.7(L) 4.8 - 10.8 K/uL 01/19/2025 6:[address] [facility] RBC 4.58(L) 4.60 - 6.20 M/uL 01/19/2025 6:[address] [facility] HEMOGLOBIN 12.5(L) 14.0 - 18.0 g/dL 01/19/2025 6:[address] [facility] HEMATOCRIT 39.0(L) 41.0 - 53.0 % 01/19/2025 6:[address] [facility] MCV 85.2 84.0 - 103.0 fL 01/19/2025 6:[address] [facility] MCH 27.3 27.0 - 34.0 pg 01/19/2025 6:[address] [facility] MCHC 32.1 30.0 - 35.0 g/dL 01/19/2025 6:[address] [facility] PLATELETS 133(L) 140 - 440 K/uL 01/19/2025 6:[address] [facility] MPV 9.7 8.9 - 12.8 fL 01/19/2025 6:[address] [facility] RDW 17.5(H) 11.0 - 14.5 % 01/19/2025 6:[address] [facility] RDW-STDEV 54.1(H) 37.0 - 54.0 fL 01/19/2025 6:[address] [facility] NEUTROPHILS 69 42 - 75 % 01/19/2025 6:[address] [facility] LYMPHOCYTES 17(L) 24 - 44 % 01/19/2025 6:[address] [facility] MONOCYTES 12(H) 2 - 10 % 01/19/2025 6:[address] [facility] EOSINOPHILS 2 0 - 7 % 01/19/2025 6:[address] [facility] BASOPHILS 1 0 - 1 % 01/19/2025 6:14 AM CDT [facility] IMMATURE GRANULOCYTES 0 0 - 2 % 01/19/2025 6:14 AM CDT [facility] NEUTROPHIL ABSOLUTE 2.58 2.00 - 8.00 K/uL 01/19/2025 6:14 AM CDT [facility] LYMPHOCYTE ABSOLUTE 0.63(L) 1.20 - 4.00 K/uL 01/19/2025 6:14 AM CDT [facility] MONOCYTE ABSOLUTE 0.43 0.10 - 0.60 K/uL 01/19/2025 6:14 AM CDT [facility] EOSINOPHIL ABSOLUTE 0.06 0.00 - 0.70 K/uL 01/19/2025 6:14 AM CDT [facility] BASOPHILS ABSOLUTE 0.03 0.00 - 0.20 K/uL 01/19/2025 6:14 AM CDT [facility] IMMATURE GRANULOCYTES ABSOLUTE 0.01 0.00 - 0.10 K/uL 01/19/2025 6:14 AM CDT [facility] SMEAR REVIEWED: NA - Not Applicable 01/19/2025 6:[address] [facility] Blood Venipuncture / Unknown 01/19/2025 5:46 AM CDT 01/19/2025 6:08 AM CDT us Kaden Mayer MD HEMATOLOGY ORDERABLES Final Re sult [facility] CLIA # [id number] [address] [place] [address] * (ABNORMAL) POC GLUCOSE (01/18/2025 3:58 PM CDT) Only the most recent of2 resultswithin the time period is included. GLUCOSE POC 108(H) 74 - 99 mg/dL 01/18/2025 3:58 PM CDT [facility] SPECIMEN SOURCE, GLUCOSE POC Capillary 01/18/2025 3:58 PM CDT [facility] Blood, whole 01/18/2025 3:58 PM CDT 01/18/2025 4:05 PM CDT us Kaden Mayer MD POINT OF CARE TESTING Final Re sult [facility] CLIA # [id number] [address] [place] [address] * IR FLUORO OR OTHER (01/18/2025 3:52 PM CDT) Narrative 01/18/2025 3:52 PM CDT Order Auto Finalized. Please see associated Operative Report/Progress Note/Procedure Note from the same date. us Kaden Mayer MD IR ORDERABLES Final Result * (ABNORMAL) POC ACTIVATED CLOTTING TIME (01/18/2025 3:30 PM CDT) ACTIVATED CLOTTING TIME POC 285(H) 116 - 140 sec 01/18/2025 3:30 PM CDT [facility] Blood 01/18/2025 3:30 PM CDT 01/19/2025 6:51 PM CDT us Kaden Mayer MD POINT OF CARE TESTING Final Re sult [facility] CLIA # [id number] [address] [place] [address] * VERIFICATION BLOOD GROUP (01/06/2025 3:35 PM CDT) ABO GROUP A 01/06/2025 6:11 PM CDT [facility] RH (D) TYPE Positive 01/06/2025 6:11 PM CDT [facility] Blood Venipuncture / Unknown 01/06/2025 3:35 PM CDT 01/06/2025 5:14 PM CDT us Kaden Mayer MD BLOOD BANK ORDERABLES Final Re sult Performing Organization Address [facility] Co de Phone Number [facility] -- [place] CLIA#[id number] [address] [place] [address], * RED BLOOD CELL ANTIGEN TYPE (01/06/2025 3:15 PM CDT) JKA RED BLOOD CELL ANTIGEN Negative 01/06/2025 11:36 PM CDT [facility] -- [place] E RED BLOOD CELL ANTIGEN Negative 01/06/2025 11:36 PM CDT [facility]OR[facility]ORY SERVICES -- [facility] C RED BLOOD CELL ANTIGEN Negative 01/06/2025 11:36 PM CDT [facility] [place] Blood Venipuncture / Unknown 01/06/2025 3:15 PM CDT 01/06/2025 5:14 PM CDT us Kaden Mayer MD BLOOD BANK ORDERABLES Edited R esult - Final Performing Organization Address [facility] Co de Phone Number [facility] [place] CLIA#[id number] [facility] [place] [address], * BLOOD BANK AB IDENT (01/06/2025 3:15 PM CDT) ANTIBODY #1 Anti-Jka 01/06/2025 11:45 PM CDT [facility] [place] ANTIBODY #2 Anti-c 01/06/2025 11:45 PM CDT [facility] [place] Blood Venipuncture / Unknown 01/06/2025 3:15 PM CDT 01/06/2025 5:14 PM CDT us Kaden Mayer MD BLOOD BANK ORDERABLES Final Re sult Performing Organization Address [facility] de Phone Number [facility] [employer] [facility] CLIA#[id number] [facility] [place], [place] [id number] [place] [address] * (ABNORMAL) PROTIME-INR (01/06/2025 3:15 PM CDT) PROTIME 15.1(H) 12.7 - 14.9 Seconds 01/06/2025 5:39 PM CDT [facility] INR 1.1 0.8 - 1.2 01/06/2025 5:39 PM CDT [facility] Blood Venipuncture / Unknown 01/06/2025 3:15 PM CDT 01/06/2025 5:21 PM CDT Narrative [facility] [employer] [facility] - 01/06/2025 5:39 PM CDT Expected Values for INR: DVT/PE Goal INR 2.5; range 2.0 - 3.0 Valve Replacement Tissue Goal INR 2.5; range 2.0 - 3.0 Valve Replacement Mechanical Goal INR 3.0; range 2.5 - 3.5 POST-MD Goal INR 2.5; range 2.0 - 3.0 or Goal INR 3.0; range 2.5 - 3.5 Atrial Fibrillation Goal INR 2.5; range 2.0 - 3.0 Ischemic Stroke Goal INR 2.5; range 2.0 - 3.0 Kaden Mayer MD HEMATOLOGY ORDERABLES Final Re sult Performing Organization Address [facility] Co de Phone Number [facility] CLIA # [id number] [address] [place] [address] * TYPE AND SCREEN (01/06/2025 3:15 PM CDT) ABO GROUP A 01/06/2025 11:44 PM CDT [facility] [employer] [facility] RH (D) TYPE Positive 01/06/2025 11:44 PM CDT [facility] [employer] SERVICES -- [place] ANTIBODY SCREEN Positive 01/06/2025 11:44 PM CDT [facility] LABORATORY [facility] Blood Venipuncture / Unknown 01/06/2025 3:15 PM CDT 01/06/2025 5:14 PM CDT Kaden Mayer MD BLOOD BANK ORDERABLES Edited R esult - Final [facility] CLIA#[id number] [facility] [place] [address], * (ABNORMAL) BASIC METABOLIC PANEL (01/06/2025 3:15 PM CDT) SODIUM 142 136 - 145 mmol/L 01/06/2025 5:41 PM CDT [facility] POTASSIUM 4.1 3.5 - 5.1 mmol/L 01/06/2025 5:41 PM CDT [facility] CHLORIDE 106 98 - 107 mmol/L 01/06/2025 5:41 PM CDT [facility] CO2 23 22 - 29 mmol/L 01/06/2025 5:41 PM CDT [facility] CALCIUM 8.9 8.8 - 10.2 mg/dL 01/06/2025 5:41 PM CDT [facility] BUN 15 8 - 23 mg/dL 01/06/2025 5:41 PM T [facility] CREATININE 1.04 0.67 - 1.17 mg/dL 01/06/2025 5:41 PM T [facility] Comment:The GFR result is no t clinically significant on patients <18 or >70 years of age. GLUCOSE 135(H) 74 - 99 mg/dL 01/06/2025 5:41 PM T [facility] GFR >60 mL/min/1.7 3 sq meter 01/06/2025 5:41 PM T [facility] Comment:eGFR calculated with 2020 CKD-EPI equation. Vegetarian diet, extremely high or low muscle mass, and may affect results. Cystatin C with Glomerular Filtration Rate is a suitable alternative for these patients. 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1955 Requested By: Order Number: [id number] Reading : Karla Francis Measurements Intervals Worth Rate: 91 P: 0 HI: 0 QRS: 35 QRSD: 126 T: 54 QT: 384 QTc: 472 Interpretive Statements Atrial fibrillation Right bundle branch block Possible Inferior infarct, age undetermined Abnormal ECG Electronically Signed On 01-06-2025 20:21:31 CDT by Karla Francis Procedure Note Karla Franics, DO - 01/06/2025 [place] [id number] Test Date: 2025-01-06 Pat Name: GABINO JONES Department: 12 Room: 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1955 Requested By: Order Number: [id number] Reading : Karla Francis Measurements Intervals [place] Rate: 91 P: 0 HI: 0 QRS: 35 QRSD: 126 T: 54 QT: 384 QTc: 472 Interpretive Statements Atrial fibrillation Right bundle branch block Possible Inferior infarct, age undetermined Abnormal ECG Electronically Signed On 01-06-2025 20:21:31 CDT by Karla Francis us Kaden Mayer MD ECG ORDERABLES Final Result INTERFACE SYSTEM Refer to clinic/hospital department * [facility] DUP/COPY PATIENT'S RECORDS (12/17/2024 11:39 AM CDT) us Abstract Provider [place] - DENTAL Final Result from Last 3 Months Insurance MEDICARE PART A HOSPITAL ONLY [employer] DUAL [employer]VANTAGE HMO DSNP [facility] [employer] Member Subscriber Plan / Payer (Ef fective 2000-Present) Name:Gabino Jones Relation to Subscriber:Self Name:Gabino Jones Payer ID:Not on file Group ID:Not on file Type:[place] Address: [place] [id number] * Guarantor: [employer] [facility] Account Type Relation to Patient Date of Phone Billing Address Corporate Other DEFAULT ADDRESS [address] [employer] * Guarantor: [employer] [facility] Account Type Relation to Patient Date of Phone Billing Address [facility] Other DEFAULT ADDRESS [address] [employer] Member Subscriber Plan / Payer (Ef fective 2000-Present) Name:Gabino Jones Relation to Subscriber:Self Name:Gabino Jones Payer ID:Not on file Group ID:Not on file [place] Address: [place] [id number] * Guarantor: [facility] Account Type Relation to Patient Date of Phone Billing Address [facility] Other DEFAULT ADDRESS [address] [employer] Advance Directives For more information, please contact: [phone] * Full Code (Latest Code Status on File) Date Activated Date Inactivated Comments 09/05/2022 11:49 PM 09/07/2022 1:06 PM
--- OUTSIDE RECORDS SUMMARY | 2025-01-28 12:22 | XMS_ITS | Patient Health Record ---
Author Organization [facility] Address [address] [place] [address] Care Team Providers Care Rn Advanced Name Role Phone Aryan Taylor Unavailable [phone] Sameera Patel Unavailable Allergies No Known Allergies Results Component Value Reference Range Notes [facility] [employer] [place], [place] - [address] Reviewed date:07/07/2024 02:24:04 PM Interpretation: Performing Lab: Notes/Report: Glucose 2+ Bili 1+ Ketones 0 Sp [place] 1.020 Blood 0 pH 6.0 Protein +- Urobili +- Nitrites 0 Leukocytes 0 Reason For Referral No Information Medications Medication SIG (Take, Route, Frequency, Duration) Notes Start Date End Date Status 2 ML digoxin 0.25 MG/ML Injection *Reorder from [facility] for eRx and Interaction Alerts* 01/30/2023 Active albuterol 0.417 MG/ML Inhalation Solution INTRAPULMONARY *Reorder from [facility] for eRx and Interaction Alerts* 01/30/2023 Active Loratadine 10 MG Oral Tablet ORAL *Reorder from [facility] for [facility]Rx and Interaction Alerts* 01/30/2023 Active Atorvastatin Calcium 10 MG Tablet Oral 01/30/2023 Active predniSONE 5 MG Oral Tablet ORAL *Reorder from [facility] for [facility]Rx and Interaction Alerts* 01/30/2023 Active 60 ACTUAT olodaterol 0.0025 MG/ACTUAT Inhalation [place] [Striverdi] INTRAPULMONARY *Reorder from [facility] for eRx and Interaction Alerts* 01/30/2023 Active aspirin 325 MG Delayed Release Oral Tablet ORAL *Reorder from [facility] and Interaction Alerts* 01/30/2023 Active Potassium Chloride 20 MEQ Powder for Oral Solution ORAL *Reorder from [facility] and Interaction Alerts* 01/30/2023 Active apixaban 5 MG Oral Tablet [Eliquis] ORAL *Reorder from [facility] for [facility]Rx and Interaction Alerts* 01/30/2023 Active Omeprazole Magnesium 20 MG Tablet Delayed Release Oral 01/30/2023 Active Nitroglycerin 0.4 MG Tablet Sublingual Sublingual 01/30/2023 Active Furosemide 40 MG Oral Tablet ORAL *Reorder from [facility] and Interaction Alerts* 01/30/2023 Active Abiraterone Acetate 250 MG Oral Tablet ORAL *Reorder from [facility] and Interaction Alerts* 01/30/2023 Active Docusate Sodium 100 MG Oral Tablet ORAL *Reorder from [facility]Rx and Interaction Alerts* 01/30/2023 Active Calcium Citrate 1500 MG / Cholecalciferol 200 UNT Oral Tablet ORAL *Reorder from [facility] for eRx and Interaction Alerts* 09/24/2023 Active 60 ACTUAT tiotropium 0.0025 MG/ACTUAT Inhalation [place] [Spiriva] INTRAPULMONARY *Reorder from [facility] for eRx and Interaction Alerts* 01/30/2023 Active albuterol 0.833 MG/ML / ipratropium bromide 0.167 MG/ML Inhalation Solution INTRAPULMONARY *Reorder from [facility] for eRx and Interaction Alerts* 01/30/2023 Active Metoprolol Tartrate 75 MG Oral Tablet ORAL *Reorder from [facility] for [facility]Rx and Interaction Alerts* 01/30/2023 Active LORazepam 1 MG Oral Tablet ORAL *Reorder from [facility] for [facility]Rx and Interaction Alerts* 01/30/2023 Active Social History Tobacco Use: Social History Observation Description Date Details (start date - stop date) Former Smoker NA - NA Social History Tobacco Use: Social Info Question Answer Notes Tobacco Control (Standard) Tobacco use: Former smoker How long has it been since you last smoked? Greater than 10 years Additional Details Category Social Info Options Details Migrated Social History Migrated Social History Smoking Status : Former tobacco user , History of tobacco use : Section Notes: 1-2 cups of caffeine daily no alcohol Problems Problem Type SNOMED Code ICD Code Onset Dates Problem Status W/U Status Risk Notes Problem half-way (current) use of other agents affecting estrogen receptors and estrogen levels (Z79.818) Active confirmed Problem History of malignant neoplasm of prostate (363323305) Personal history of malignant neoplasm of prostate (Z85.46) Active confirmed Problem Urinary retention (544300797) Urinary retention (R33.9) Active confirmed Problem Bladder neck obstruction (030141870) Bladder neck obstruction (N32.0) Active confirmed Vital Signs Heart Rate 78 /min 07/07/2024 Temperature 98.68 degrees Fahrenheit 07/07/2024 Blood pressure diastolic 64 mm Hg 07/07/2024 Height-cm 177.80 cm 07/07/2024 Weight-kg 99.79 kg 07/07/2024 Height 70.00 in 07/07/2024 Blood pressure systolic 110 mm Hg 07/07/2024 Weight 220.0 lbs 07/07/2024 BMI 31.56 kg/m2 07/07/2024 Encounters Encounter Location Date Provider Diagnosis [facility] [address] [place] [address] [address] [place] [address] 07/07/2024 Sameera Patel Personal history of malignant neoplasm of prostate Z85.46 ; half-way (current) use of other agents affecting estrogen receptors and estrogen levels Z79.818 ; Urinary retention R33.9 ; Urinary urgency R39.15 and Frequency of micturition R35.0 [facility] [address] [place] [address] [place] [address] 02/26/2024 [facility] [address] [place] [address] [place] [address] 02/27/2024 [facility] [address] [place] [address] [address] [place] [address] 02/27/2024 Aryan [facility] [address] [place] [address] [place] [address] 03/12/2024 [facility] [address] [place] [address] [place] [address] 03/16/2024 [facility] [address] [place] [address] [place] [address] 03/16/2024 Aryan Taylor Personal history of malignant neoplasm of prostate Z85.46 and 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 agents affecting estrogen receptors and estrogen levels Z79.818 [facility] [address]tran [address] [place] [address], [place] [address] 05/19/2024 Aryan Taylor [facility] [address] [place] [address] 06/16/2024 Aryan Taylor 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 agents affecting estrogen receptors and estrogen levels Z79.818 and Personal history of malignant neoplasm of prostate Z85.46 [facility] [address] [place] [address] 07/06/2024 Aryan Taylor [facility] [address]tran [address] [place] [address], [place] [address] 07/07/2024 Aryan Taylor half-way (current) use of other agents affecting estrogen receptors and estrogen levels Z79.818 and Personal history of malignant neoplasm of prostate Z85.46 [facility] [address] Beltran [address] [place] [address], [place] [address] 10/02/2024 Aryan Taylor Assessments Encounter Date Diagnosis (ICD Code) Assessment Notes Treatment Notes Treatment Clinical Notes Section Notes 03/16/2024 Personal history of malignant neoplasm of prostate (ICD-10 - Z85.46) 06/16/2024 half-way (current) use of other agents affecting estrogen receptors and estrogen levels (ICD-10 - Z79.818) 07/07/2024 Personal history of malignant neoplasm of prostate (ICD-10 - Z85.46) continue with current treatment plan, unless otherwise told. Continue seeing oncology if your treatment plan includes establishment with them. 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 Mechanism of Action: ADT can be achieved through surgical castration (orchiectomy) or chemical castration using medications such as LHRH agonists (e.g., leuprolide, goserelin) or antagonists (e.g., degarelix). These treatments lower testosterone levels, which prostate cancer cells rely on for growth. Administration: LHRH Agonists/Antagonists: Administered via subcutaneous or intramuscular injections, with varying dosing schedules (monthly, quarterly, or semi-annually). Orchiectomy: A surgical procedure to remove the testicles, providing a permanent reduction in testosterone levels. Common Side Effects: Hot flashes Decreased libido Erectile dysfunction Fatigue Weight gain Muscle loss Bone thinning (osteoporosis) Serious Side Effects: Cardiovascular issues (e.g., heart attack, stroke) Metabolic changes (e.g., increased risk of diabetes) Mood changes (e.g., depression, anxiety) Patient Monitoring: Regular monitoring includes: Testosterone and PSA levels Bone density scans Cardiovascular health assessments Metabolic panels Patient Counseling: Side Effect Management: Discuss strategies to manage side effects, such as lifestyle modifications (diet, exercise) and medications (e.g., bisphosphonates for bone health). Adherence: Emphasize the importance of adhering to the treatment schedule and attending follow-up appointments. Initial Hormone Surge: Inform patients about the potential initial surge in testosterone levels with LHRH agonists, which may temporarily worsen symptoms before improvement. Support Systems: Encourage participation in support groups and provide educational materials to help patients cope with the psychological and physical impacts of ADT. Recent Advancements: Digital Platforms: Use of apps and online portals to provide educational content, track symptoms, and offer support. Interactive Tools: Virtual reality and interactive modules to help patients understand the treatment process. Multidisciplinary Approaches: Involving a team of healthcare providers to deliver comprehensive education. Personalized Education Plans: Tailoring information to individual patient needs, considering literacy levels and cultural backgrounds. These advancements aim to improve patient understanding, engagement, and adherence to ADT, ultimately enhancing treatment outcomes. 07/07/2024 half-way (current) use of other agents affecting estrogen receptors and estrogen levels (ICD-10 - Z79.818) 07/07/2024 Personal history of malignant neoplasm of prostate (ICD-10 - Z85.46) 07/07/2024 Urinary retention (ICD-10 - R33.9) If you are taking medication for this, please continue to do so, unless otherwise told to stop. *Patient Education on Urinary Retention Understanding Urinary Retention Definition: Urinary retention is the inability to empty the bladder completely or at all. It can be acute (sudden and severe) or chronic (gradual and ongoing). Types: Acute Urinary Retention: A medical emergency where the patient cannot urinate at all, causing severe pain and discomfort. Chronic Urinary Retention: A condition where the bladder does not empty completely, leading to frequent urination and other complications. Causes Obstruction: Blockages in the urinary tract, such as an enlarged prostate, urethral stricture, or bladder stones. Nerve Problems: Conditions like diabetes, multiple sclerosis, or spinal cord injuries that affect nerve signals to the bladder. Medications: Certain drugs, including antihistamines, decongestants, and muscle relaxants, can interfere with bladder function. Infections: Urinary tract infections (UTIs) can cause swelling and obstruction. Postoperative: Anesthesia and surgery, particularly pelvic or abdominal procedures, can temporarily affect bladder function. Symptoms Acute Urinary Retention: Sudden inability to urinate, severe lower abdominal pain, and a distended bladder. Chronic Urinary Retention: Frequent urination, difficulty starting urination, weak urine stream, feeling of incomplete bladder emptying, and urinary incontinence. Diagnosis Medical History and Physical Exam: Assessment of symptoms, medical history, and a physical examination, including a digital rectal exam for men. Bladder Scan: Ultrasound to measure the amount of urine left in the bladder after urination. Urodynamic Tests: Assess bladder function and urine flow. Cystoscopy: A scope inserted into the bladder to look for blockages or abnormalities. Treatment Options Catheterization: Inserting a catheter to drain the bladder, providing immediate relief in acute cases. Medications: Alpha-blockers to relax the bladder neck muscles and prostate, or antibiotics if an infection is present. Surgery: Procedures to remove blockages, such as transurethral resection of the prostate (TURP) for an enlarged prostate. Behavioral Therapies: Bladder training and pelvic floor exercises to improve bladder control. Self-Management Strategies Scheduled Voiding: Urinating at regular intervals to prevent bladder overdistension. Double Voiding: Urinating, then waiting a few minutes and trying again to ensure the bladder is empty. Fluid Management: Drinking adequate fluids but avoiding excessive intake, especially before bedtime. Avoid Bladder Irritants: Reducing intake of caffeine, alcohol, and spicy foods. Preventive Measures Regular Check-Ups: Monitoring for conditions that can lead to urinary retention, such as prostate enlargement. Pelvic Floor Exercises: Strengthening pelvic muscles to improve bladder control. Medication Review: Discussing with healthcare providers the potential side effects of medications that may affect bladder function. When to Seek Medical Attention Acute Symptoms: Sudden inability to urinate, severe pain, or a distended bladder requires immediate medical attention. Persistent Symptoms: Difficulty urinating, frequent urination, or a weak urine stream should be evaluated by a healthcare provider. 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 agents affecting estrogen receptors and estrogen levels (ICD-10 - Z79.818) 07/07/2024 Urinary urgency (ICD-10 - R39.15) 07/07/2024 Frequency of micturition (ICD-10 - R35.0) Plan Of Treatment Pending Test Test Name Order Date Basic Metabolic Panel (BMP) 09845 2023 Basic Metabolic Panel (BMP) 04953 2024 PSA Diagnostic--[id number] 07/07/2024 Bone Densitometry-[id number] 07/07/2024 Bone Densitometry-50805 06/16/2024 Bone Densitometry-10171 03/16/2024 Insurance Providers Payer Name Payer Address Payer Phone Subscriber Number Group Number Insured Name Patient Relationship to Insured Coverage Start Date Coverage End Date [employer] [address] [place] [phone] [id number] [employer] Self - patient is the insured Medical (General) History Hospitalization History Reason Date(Month/Year) sars/rsv/pneumonia
[2025-01-28 12:26] LABS: Hematocrit 38.6 % (37-53); Hemoglobin 12.30 g/dL (11.27-16.99); Mean Corpuscular HGB Conc 31.9 g/dL (30-55); Mean Corpuscular Hemoglobin 27.2 pg (27-33); Mean Corpuscular Volume 85.4 fl (82-101); Nucleated Red Blood Cells % 0 %; Platelet Count 171 10^3/cmm (157-399); Red Blood Count 4.52 10^6/uL (3.85-5.65); White Blood Count 5.00 10^3/uL (3.29-11.43)
--- NOTE | 2025-01-28 12:27 | PC.PHAR ---
[facility] 01/28/25 12:26pm
--- NOTE | 2025-01-28 12:36 | W.ED.CHESTPA ---
HPI - Chest Pain General: Chief Complaint: Chest Pain Stated Complaint: SOB, chest discomfort Time Seen by Provider: 01/28/25 12:09 History of Present Illness: 69-year-old male presents to the emergency room complaining of shortness of breath. He had been to the [place] this morning with complaint of shortness of breath somewhat productive cough for the last couple days he was recently treated as an outpatient for pneumonia. In addition of this he has had some chest pressure for a brief time this morning he had some right numbness but that resolved quickly was about 4 to 5 hours ago. Associated symptoms: Deny abdominal pain, dyspnea or fever(s) Related Data Home Medications ?Medication ?Instructions ?Recorded ?Confirmed furosemide 40 mg tablet (Lasix) 40 mg PO QAM 03/28/21 01/28/25 potassium chloride 20 mEq 20 meq PO QAM 03/28/21 01/28/25 tablet,extended release tamsulosin 0.4 mg capsule (Flomax) 0.4 mg PO BID 02/25/23 01/28/25 loratadine 10 mg tablet 10 mg PO QAM 05/15/23 01/28/25 digoxin 250 mcg (0.25 mg) tablet 250 mcg PO QAM 08/04/23 01/28/25 nitroglycerin 0.4 mg sublingual 0.4 mg sublingual Q5M PRN Chest 08/04/23 01/28/25 tablet (Nitrostat) Pain calcium 600 mg (as 1 tab PO DAILY 07/09/24 01/28/25 carbonate)-vitamin D3 5 mcg (200 unit) tablet levothyroxine 125 mcg tablet 125 mcg PO QAM 07/09/24 01/28/25 fluticasone 100 mcg-salmeterol 50 1 inh inhalation BEDTIME 09/15/24 01/28/25 mcg/dose blistr powdr for inhalation (Advair Diskus) acetaminophen 650 mg 650 mg PO Q12H PRN Pain 12/11/24 01/28/25 tablet,extended release albuterol sulfate 2.5 mg/3 mL 2.5 mg inhalation Q6H 01/28/25 01/28/25 (0.083 %) solution for nebulization aspirin 81 mg tablet,delayed 81 mg PO DAILY 01/28/25 01/28/25 release atorvastatin 20 mg tablet 10 mg PO BEDTIME 01/28/25 01/28/25 cholecalciferol (vitamin D3) 50 50 mcg PO DAILY 01/28/25 01/28/25 mcg (2,000 unit) tablet (Vitamin D3) clopidogrel 75 mg tablet 75 mg PO DAILY 01/28/25 01/28/25 gabapentin 100 mg capsule 200 mg PO TID 01/28/25 01/28/25 hydrocodone 5 mg-acetaminophen 325 1 tab PO Q6H PRN Pain 01/28/25 01/28/25 mg tablet metoprolol tartrate 25 mg tablet 37.5 mg PO BID 01/28/25 01/28/25 sennosides 8.6 mg-docusate sodium 1 tab PO DAILY 01/28/25 01/28/25 50 mg tablet sertraline 100 mg tablet 100 mg PO QPM 01/28/25 01/28/25 tiotropium bromide 2.5 2 puff inhalation DAILY 01/28/25 01/28/25 mcg/actuation mist for inhalation (Spiriva Respimat) Previous Rx's ?Medication ?Instructions ?Recorded apixaban 5 mg tablet (Eliquis) 5 mg PO BID #60 tabs 10/16/19 albuterol sulfate 90 mcg/actuation 2 inh inhalation Q4H PRN shortness 07/27/22 aerosol inhaler of breath or wheezing #18 grams blood-glucose meter (Blood Glucose #1 ea 05/13/24 Monitoring kit) lancets #100 ea 05/13/24 pen needle, diabetic 32 gauge x #50 ea 05/13/24 1/ (BD Ultra-Fine Micro Pen Needle) diclofenac sodium 1 % topical gel 4 g topical QID PRN joint pain 08/24/24 #100 grams prochlorperazine maleate 10 mg 10 mg PO Q4H PRN Mild Nausea #30 08/25/24 tablet (Compazine) tabs insulin glargine 100 unit/mL (3 10 unit (0.1 mL) SUBCUT DAILY #15 09/14/24 mL) subcutaneous pen (Lantus mL Solostar U-100 Insulin) cyanocobalamin (vitamin B-12) 1,000 mcg PO DAILY #30 caps 12/11/24 1,000 mcg capsule empagliflozin 25 mg tablet 12.5 mg (1/2 x 25 mg) PO DAILY #30 12/11/24 tabs ergocalciferol (vitamin D2) 1,250 1,250 mcg PO .Weekly #30 caps 12/11/24 mcg (50,000 unit) capsule folic acid 1 mg tablet 1 mg PO DAILY #30 tabs 12/11/24 pantoprazole 40 mg tablet,delayed 40 mg PO DAILY #30 tabs 12/11/24 release amoxicillin 500 mg-potassium 1 tab PO Q8H 5 days #15 tabs 01/30/25 clavulanate 125 mg tablet (Augmentin) guaifenesin 600 mg tablet, 1,200 mg (2 x 600 mg) PO BID PRN 01/30/25 extended release 12 hr (Mucinex) Cough 10 days #20 tabs prednisone 20 mg tablet 40 mg (2 x 20 mg) PO DAILY 3 days 01/30/25 #6 tabs Allergies Allergy/AdvReac Type Severity Reaction Status Date / Time No Known Allergies Allergy Verified 01/25/25 11:15 Review of Systems Const: Denies: fever(s) or chills Card: Denies: chest pain Resp: Denies: dyspnea GI: Denies: abdominal pain : Denies: dysuria, urinary frequency or urinary urgency Musc: Denies: neck pain or back pain Skin/Breast: Denies: rash PFSH ED PFSH: Medical History Greater trochanteric bursitis of right hip Prostate cancer History of colon polyps Chronic anticoagulation eliquis, for afib Chronic respiratory failure with hypoxia Heart failure with preserved ejection fraction Coronary artery disease CHF (congestive heart failure) Last echocardiogram normal EF, grade 2/4 diastolic dysfunction October 2019 Hypertension Anemia Atrial fibrillation GERD (gastroesophageal reflux disease) Hypothyroidism Hyperlipidemia COPD (chronic obstructive pulmonary disease) Surgical History History of cataract surgery Left eye - 12/2022 H/O prostate biopsy S/P appendectomy S/P cholecystectomy History of colonoscopy (~04/2020) History of vasectomy History of knee surgery History of coronary artery bypass graft (03/2019) [address] [place] [address] Family History Father , IN HIS 50'S Lung disease tuberculosis Mother , AT AGE 63 CAD (coronary artery disease) Diabetes Hypertension Sister Cancer Denies family history of Clotting disorder Dementia Hyperlipidemia Psychiatric illness Chronic kidney disease (CKD) Suicide Anesthesia complication Bleeding disorder Stroke Social History Smoking and tobacco/nicotine status: never used tobacco/nicotine Quit status (tobacco/nicotine): has quit using Year quit tobacco: 2017 - PPD x 52 Years Alcohol intake: never Substance/Drug Use: never Lives independently: Yes Household members: none Marital status: Legally Current occupational status: employed and retired Do you think of yourself as: Straight/Heterosexual Current gender identity: Male Physical Exam Const: COMMON NORMALS: no acute distress GENERAL APPEARANCE: cooperative and comfortable ORIENTATION/CONSCIOUSNESS: Yes awake, Yes oriented to person, Yes oriented to place and Yes oriented to time HENMT: COMMON NORMALS: normocephalic, atraumatic and hearing grossly normal bilaterally HEAD & SCALP: normocephalic and atraumatic Resp: COMMON NORMALS: normal respiratory effort, No retractions and No use of accessory muscles AUSCULTATION: crackles Cardio: COMMON NORMALS: No murmurs present (Cardio) RATE: tachycardic RHYTHM: abnormal rhythm irregularly irregular GI: COMMON NORMALS: Soft to palpation and No hepatosplenomegaly present AUSCULTATION: Yes normoactive bowel sounds PALPATION: Yes Soft to palpation, No Tenderness to palpation present (GI), No Guarding due to palpation present (GI) and Yes No hepatosplenomegaly present Extremity: COMMON NORMALS: normal to inspection, capillary refill normal, no clubbing, cyanosis or edema, no calf tenderness and no pedal edema Neuro: SENSORIUM/ORIENTATION: Yes oriented to person, Yes oriented to place and Yes oriented to time Skin: COMMON NORMALS: no rashes or lesions noted GENERAL SKIN EXAM: no rashes or lesions noted Course Vital Signs: Vital signs: Vital Signs Temperature 97.9 F 01/30/25 07:28 Pulse Rate 89 01/30/25 13:44 Respiratory Rate 16 01/30/25 13:44 Blood Pressure 113/54 01/30/25 13:44 Pulse Oximetry 97 01/30/25 13:44 Oxygen Delivery Me thod Nasal Cannula 01/30/25 08:12 Oxygen Flow Rate 2 01/30/25 08:12 MDM - Chest Pain Medical Decision Making Patient presents with chest pain as well as A-fib with RVR. Patient started on Cardizem. Initial Trop 18 follow-up troponin 19.48 with a delta of +1.48. Heart score 7. Will admit for A-fib with RVR further evaluation of chest pain discussed with hospitalist orders written Medical Records Patient presents with chest pain as well as A-fib with RVR. Patient started on Cardizem. Initial Trope Lab Data I reviewed the patient's lab results. 01/30/25 04:29 01/30/25 04:[address] 01/28/25 12:37 IMPRESSION: 1. No evidence of intracranial hemorrhage or mass effect. 2. No acute intracranial findings. Laboratory Results WBC 5.00 10^3/uL (3.29-11.43) 01/28/25 11:50 RBC 4.52 10^6/uL (3.85-5.65) 01/28/25 11:50 Hgb 12.30 g/dL (11.27-16.99) 01/28/25 11:50 Hct 38.6 % (37-53) 01/28/25 11:50 MCV 85.4 fl (82-101) 01/28/25 11:50 MCH 27.2 pg (27-33) 01/28/25 11:50 MCHC 31.9 g/dL (30-55) 01/28/25 11:50 RDW 17.8 % (12.1-15.1) H 01/28/25 11:50 Plt Count 171 10^3/cmm (157-399) 01/28/25 11:50 MPV 9.7 fL (7.4-10.4) 01/28/25 11:50 Neut % (Auto) 78.8 % 01/28/25 11:50 Lymph % (Auto) 9.0 % 01/28/25 11:50 [place] % (Auto) 10.6 % 01/28/25 11:50 Eos % (Auto) 0.8 % 01/28/25 11:50 Baso % (Auto) 0.6 % 01/28/25 11:50 Neut # (Auto) 3.94 10^3/uL (1.8-7.7) 01/28/25 11:50 Lymph # (Auto) 0.5 10^3/uL (0.8-4.8) L 01/28/25 11:50 [place] # (Auto) 0.5 10^3/uL (0.2-0.9) 01/28/25 11:50 Eos # (Auto) 0.0 10^3/uL (0.0-0.8) 01/28/25 11:50 Baso # (Auto) 0.0 10^3/uL (0.0-0.1) 01/28/25 11:50 Nucleated RBC % (auto) 0 % 01/28/25 11:50 Nucleated RBCs # 0.0 /100WBC 01/28/25 11:50 Sodium 135 mmol/L (136-145) L 01/28/25 11:50 Potassium 4.2 mmol/L (3.5-5.1) 01/28/25 11:50 Chloride 97 mmol/L (98-107) L 01/28/25 11:50 Carbon Dioxide 24 mmol/L (22-29) 01/28/25 11:50 Anion Gap 18.2 (5-19) 01/28/25 11:50 BUN 14 mg/dL (8-23) 01/28/25 11:50 Creatinine 0.9 mg/dL (0.7-1.2) 01/28/25 11:50 GFR Calculation 83.4 mL/min (90-130) L 01/28/25 11:50 Glucose 106 mg/dL (65-115) 01/28/25 11:50 Calculated Osmolality 281 mOsm/kg (285-295) L 01/28/25 11:50 Lactic Acid 2.0 mmol/L (0.5-2.2) 01/28/25 11:50 Calcium 9.3 mg/dL (8.5-10.5) 01/28/25 11:50 Phosphorus 3.1 mg/dL (2.5-4.5) 01/28/25 11:50 Magnesium 2.1 mg/dL (1.7-2.3) 01/28/25 11:50 Total Bilirubin 1.1 mg/dL (0.15-1.2) 01/28/25 11:50 AST 18 U/L (0-40) 01/28/25 11:50 ALT 10 U/L (0-41) 01/28/25 11:50 Alkaline Phosphatase 85 U/L (40-130) 01/28/25 11:50 Troponin T Baseline 18 ng/L (0-15) H 01/28/25 11:50 Troponin T 120 Minute 19.48 ng/L (0-15) H 01/28/25 14:07 Delta Troponin T 1.48 ABS# (0-10) 01/28/25 14:07 Troponin T Hi Sens 6Hr 19.60 ng/L (0-15) H 01/28/25 17:45 Troponin T Hi Sens 6Hr Delta 1.60 ng/L (0-12) 01/28/25 17:45 NT-Pro-B Natriuret Pep 4351 pg/mL (0-125) H 01/28/25 11:50 Total Protein 7.7 g/dL (6.6-8.7) 01/28/25 11:50 Albumin 4.1 g/dL (3.5-5.2) 01/28/25 11:50 Globulin 3.6 g/dL (1.3-4.6) 01/28/25 11:50 Procalcitonin 0.45 ng/mL (0-0.5) 01/28/25 11:50 TSH 2.05 uIU/mL (0.27-4.20) 01/28/25 11:50 Urine Color [place] (Yellow) A 01/28/25 13:43 Urine Appearance Clear (CLEAR) 01/28/25 13:43 Urine pH 5.0 (5-7) 01/28/25 13:43 Ur Specific [place] 1.034 (1.005-1.030) H 01/28/25 13:43 Urine Protein 1+ (Negative) A 01/28/25 13:43 Urine Glucose (UA) 3+ (Normal) H 01/28/25 13:43 Urine Ketones Trace (Negative) 01/28/25 13:43 Urine Blood Negative (Negative) 01/28/25 13:43 Urine Nitrate Not tested (Negative) A 01/28/25 13:43 Urine Bilirubin 1+ (Negative) H 01/28/25 13:43 Urine Urobilinogen 1.0 mg/dL (Negative) 01/28/25 13:43 Ur Leukocyte Esterase Trace (Negative) A 01/28/25 13:43 Urine RBC 0-2 /hpf (0-2) 01/28/25 13:43 Urine WBC 0-5 /hpf (0-5) 01/28/25 13:43 Ur Squamous Epith Cells 0-5 /hpf (0-5) 01/28/25 13:43 Amorphous Sediment Not Reportable 01/28/25 13:43 Urine Bacteria None seen /hpf (NONE) 01/28/25 13:43 Hyaline Casts 3.71 /lpf 01/28/25 13:43 Digoxin 0.5 ng/mL (0.6-1.2) L 01/28/25 11:50 All radiology interpretation(s) finalized by discharge EKG Data EKG 1: Interpretation: EKG 828 2025-05-08 A-fib with RVR rate of 114 right bundle branch block noted. QTc 488. No acute ST elevation EKG 2: Interpretation: EKG 01/28/2025 1435 atrial fibrillation rate now controlled at 96 bpm QTc 486. Right bundle branch block present no acute ST-T elevation noted. Questional ST depression compared to EKG earlier. This is noted in V3 and 4. Clincial Decision Support The following clinical decision support tools were used to aid in care of the patient HEART Score -> History: Highly Suspicious, EKG: Non-specific Changes, Age: 65 or more yrs, Risk Factors: 1 or 2 Risk Factors, Troponin: Baseline Trop 16-45 ng/L. Resulting HEART Score: 7. Discharge Plan Discharge Patient Disposition: Admitted As Inpatient Admit Provider: Ginger Peters Clinical Impression: Atrial fibrillation with RVR, Chest pain Hyperlipidemia Qualifiers: Hyperlipidemia type: mixed hyperlipidemia Qualified Code(s): E78.2 - Mixed hyperlipidemia Hypertension Qualifiers: Hypertension type: unspecified secondary hypertension Qualified Code(s): I15.9 - Secondary hypertension, unspecified COPD (chronic obstructive pulmonary disease) Qualifiers: COPD type: emphysema Emphysema type: centrilobular Qualified Code(s): J43.2 - Centrilobular emphysema Coronary artery disease Qualifiers: Coronary Disease-Associated Artery/Lesion type: [place] artery [place] vs. transplanted heart: [place] heart Associated angina: with stable angina Qualified Code(s): I25.118 - Atherosclerotic heart disease of [place] coronary artery with other forms of angina pectoris Condition: Stable Discharge Diet: Advance as tolerated and Usual diet Discharge Activity: Resume usual activity, Increase activity as tolerated and Limit activity as instructed 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 of Care Code ED Rippler for Kevin Arceo
--- NOTE | 2025-01-28 12:37 | CT_ITS ---
WS: [id number] CT HEAD TECHNIQUE: Noncontrast CT of the head obtained from the skullbase to the vertex. CLINICAL INFORMATION: Right arm weakness COMPARISON: 06/17/2023 DLP: 1175.[address] scans at [facility] use at least one of these dose optimization techniques: automated exposure control; mA and/or kV adjustment per patient size (includes targeted exams where dose is matched to clinical indication); or iterative reconstruction. FINDINGS: No evidence of intracranial hemorrhage or mass effect. Ventricular system and basal cisterns are patent. Mild small vessel changes with moderate parenchymal volume loss. No extra-axial fluid collections. Tiny chronic lacunar infarcts RIGHT caudate and basal ganglia. Vascular calcification. Paranasal sinuses and mastoid air cells are well aerated. .Normal visualized soft tissues. CT/CT head wo con* [id number] IMPRESSION: 1. No evidence of intracranial hemorrhage or mass effect. 2. No acute intracranial findings.
[2025-01-28 12:47] LABS: Digoxin 0.5 ng/mL (0.6-1.2)
[2025-01-28 12:49] LABS: Troponin(5th) Baseline 18 ng/L (0-15)
[2025-01-28 12:52] LABS: Lactic Sepsis W/Reflex 2.0 mmol/L (0.5-2.2)
[2025-01-28] MEDS: dilTIAZem 100 MG in sodium chloride 0.9% (add-van) 100 ML IV (12:55)
[2025-01-28 13:00] LABS: Alanine Aminotransferase 10 U/L (0-41); Albumin Level 4.1 g/dL (3.5-5.2); Alkaline Phosphatase 85 U/L (40-130); Blood Urea Nitrogen 14 mg/dL (8-23); Calcium 9.3 mg/dL (8.5-10.5); Carbon Dioxide 24 mmol/L (22-29); Chloride 97 mmol/L (98-107); Creatinine Clr Calc Pharmacy 85.5344; Globulin 3.6 g/dL (1.3-4.6); Glucose 106 mg/dL (65-115); NT Pro B Type Natriuretic Pept 4351 pg/mL (0-125); Osmolality Calculated 281 mOsm/kg (285-295); Sodium 135 mmol/L (136-145); Total Protein 7.7 g/dL (6.6-8.7)
[2025-01-28 13:01] LABS: Anion Gap 18.2 (5-19); Aspartate Amino Transferase 18 U/L (0-40); Potassium 4.2 mmol/L (3.5-5.1)
[2025-01-28 13:57] LABS: Glucose Urine UA 3+ (Normal)
[2025-01-28 14:00] LABS: Add Urine Microscopic? YES
[2025-01-28 14:02] LABS: Specific Gravity, Urine 1.034 (1.005-1.030)
[2025-01-28 14:03] LABS: Nitrate Urine Not Tested (Negative)
--- NOTE | 2025-01-28 14:35 | ECG_ITS ---
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 Measurements Intervals [place] Rate: 96 P: 0 WI: 0 QRS: -51 QRSD: 153 T: 75 QT: 384 QTc: 486 Interpretive Statements ATRIAL FIBRILLATION LEFT AXIS DEVIATION [QRS AXIS < -30] RIGHT BUNDLE BRANCH BLOCK [120+ ms QRS DURATION, UPRIGHT V1, 40+ ms S IN I/aVL/V4/V5/V6] ST DEPRESSION, CONSIDER SUBENDOCARDIAL INJURY [0.1+ mV ST DEPRESSION] Compared to ECG 01/28/2025 12:06:13 Left-axis deviation now present ST (T wave) deviation now present Electronically Signed On 01-29-2025 22:54:12 CDT by Favio Ferguson M.D. [email or web address]
[2025-01-28 14:38] LABS: Troponin 5 2HR 19.48 ng/L (0-15); Troponin 5 2HR Delta 1.48 ABS# (0-10)
--- NOTE | 2025-01-28 16:10 | PM.HP ---
Providers/Chief Complaint Primary Care Provider: PATO Hernandez Chief Complaint: SOB, chest discomfort History of Present Illness History as per the previous notes and the patient : Gabino Jones is a 69 year old male with past medical history of prostate cancer, heart failure with preserved ejection fraction, hypertension, anemia, atrial fibrillation, hypothyroidism, hyperlipidemia, COPD, on home oxygen 2 L nasal cannula presented to the ER with shortness of breath With productive cough, whitish in color from the last few days. 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 He was found to have right lower basal infiltrates on chest x-ray however there was no leukocytosis, based upon his shortness of breath and chest x-ray findings and symptoms likely having infective COPD exacerbation. The patient was also found to have atrial fibrillation with RVR and started on nicardipine drip. His heart rate improved and to resume his home medications. the patient did not report any high grade fever, chills or any wt loss. chest pain, dizziness, diaphoresis, loss of consciousness, skin rash or any other joint swellings or pain. no orthopnea or PND. Review of Systems General: Reports: 10 or more systems reviewed and unremarkable except in HPI and below Medications/Allergies Home Medications ?Medication ?Instructions ?Recorded ?Confirmed ?Last Taken ?Type apixaban 5 mg tablet (Eliquis) 5 mg PO BID #60 tabs 10/16/19 01/28/25 01/28/25 Rx furosemide 40 mg tablet (Lasix) 40 mg PO QAM 03/28/21 01/28/25 01/28/25 History potassium chloride 20 mEq 20 meq PO QAM 03/28/21 01/28/25 01/28/25 History tablet,extended release albuterol sulfate 90 mcg/actuation 2 inh inhalation Q4H PRN shortness 07/27/22 01/28/25 09/14/24 Rx aerosol inhaler of breath or wheezing #18 grams tamsulosin 0.4 mg capsule (Flomax) 0.4 mg PO BID 02/25/23 01/28/25 01/28/25 History loratadine 10 mg tablet 10 mg PO QAM 05/15/23 01/28/25 01/27/25 History digoxin 250 mcg (0.25 mg) tablet 250 mcg PO QAM 08/04/23 01/28/25 01/28/25 History nitroglycerin 0.4 mg sublingual 0.4 mg sublingual Q5M PRN Chest 08/04/23 01/28/25 03/15/24 History tablet (Nitrostat) Pain blood-glucose meter (Blood Glucose #1 ea 05/13/24 01/28/25 Unknown Rx Monitoring kit) lancets #100 ea 05/13/24 01/28/25 Unknown Rx pen needle, diabetic 32 gauge x #50 ea 05/13/24 01/28/25 Unknown Rx 1/4 (BD Ultra-Fine Micro Pen Needle) calcium 600 mg (as 1 tab PO DAILY 07/09/24 01/28/25 01/27/25 History carbonate)-vitamin D3 5 mcg (200 unit) tablet levothyroxine 125 mcg tablet 125 mcg PO QAM 07/09/24 01/28/25 01/28/25 History diclofenac sodium 1 % topical gel 4 g topical QID PRN joint pain 08/24/24 01/28/25 Unknown Rx Held on 09/16/24. #100 grams Instructions: Resume on 10/14/24. May use on other parts of body, but not to left knee prochlorperazine maleate 10 mg 10 mg PO Q4H PRN Mild Nausea #30 08/25/24 01/28/25 Unknown Rx tablet (Compazine) tabs insulin glargine 100 unit/mL (3 10 unit (0.1 mL) SUBCUT DAILY #15 09/14/24 01/28/25 01/28/25 Rx mL) subcutaneous pen (Lantus mL Solostar U-100 Insulin) fluticasone 100 mcg-salmeterol 50 1 inh inhalation BEDTIME 09/15/24 01/28/25 01/27/25 History mcg/dose blistr powdr for inhalation (Advair Diskus) acetaminophen 650 mg 650 mg PO Q12H PRN Pain 12/11/24 01/28/25 Unknown History tablet,extended release cyanocobalamin (vitamin B-12) 1,000 mcg PO DAILY #30 caps 12/11/24 01/28/25 01/28/25 Rx 1,000 mcg capsule empagliflozin 25 mg tablet 12.5 mg (1/2 x 25 mg) PO DAILY #30 12/11/24 01/28/25 01/28/25 Rx tabs ergocalciferol (vitamin D2) 1,250 1,250 mcg PO .Weekly #30 caps 12/11/24 01/28/25 01/22/25 Rx mcg (50,000 unit) capsule folic acid 1 mg tablet 1 mg PO DAILY #30 tabs 12/11/24 01/28/25 01/28/25 Rx pantoprazole 40 mg tablet,delayed 40 mg PO DAILY #30 tabs 12/11/24 01/28/25 01/27/25 Rx release albuterol sulfate 2.5 mg/3 mL 2.5 mg inhalation Q6H 01/28/25 01/28/25 Unknown History (0.083 %) solution for nebulization aspirin 81 mg tablet,delayed 81 mg PO DAILY 01/28/25 01/28/25 01/28/25 History release atorvastatin 20 mg tablet 10 mg PO BEDTIME 01/28/25 01/28/25 01/27/25 History cholecalciferol (vitamin D3) 50 50 mcg PO DAILY 01/28/25 01/28/25 Unknown History mcg (2,000 unit) tablet (Vitamin D3) clopidogrel 75 mg tablet 75 mg PO DAILY 01/28/25 01/28/25 01/28/25 History gabapentin 100 mg capsule 200 mg PO TID 01/28/25 01/28/25 01/28/25 History hydrocodone 5 mg-acetaminophen 325 1 tab PO Q6H PRN Pain 01/28/25 01/28/25 Unknown History mg tablet metoprolol tartrate 25 mg tablet 37.5 mg PO BID 01/28/25 01/28/25 01/28/25 History sennosides 8.6 mg-docusate sodium 1 tab PO DAILY 01/28/25 01/28/25 01/27/25 History 50 mg tablet sertraline 100 mg tablet 100 mg PO QPM 01/28/25 01/28/25 01/27/25 History tiotropium bromide 2.5 2 puff inhalation DAILY 01/28/25 01/28/25 01/27/25 History mcg/actuation mist for inhalation (Spiriva Respimat) Allergies Allergy/AdvReac Type Severity Reaction Status Date / Time No Known Allergies Allergy Verified 01/25/25 11:15 PFSH Acute PFSH: Medical History (Updated 01/28/25 @ 16:13 by Ginger Peters MD) Greater trochanteric bursitis of right hip Prostate cancer History of colon polyps Chronic anticoagulation eliquis, for afib Chronic respiratory failure with hypoxia Heart failure with preserved ejection fraction Coronary artery disease CHF (congestive heart failure) Last echocardiogram normal EF, grade 2/4 diastolic dysfunction October 2019 Hypertension Anemia Atrial fibrillation GERD (gastroesophageal reflux disease) Hypothyroidism Hyperlipidemia COPD (chronic obstructive pulmonary disease) Surgical History History of cataract surgery Left eye - 12/2022 H/O prostate biopsy S/P appendectomy S/P cholecystectomy History of colonoscopy (~04/2020) History of vasectomy History of knee surgery History of coronary artery bypass graft (03/2019) [address] [place] [address] Family History Father , IN HIS 50'S Lung disease tuberculosis Mother , AT AGE 63 CAD (coronary artery disease) Diabetes Hypertension Sister Cancer Denies family history of Clotting disorder Dementia Hyperlipidemia Psychiatric illness Chronic kidney disease (CKD) Suicide Anesthesia complication Bleeding disorder Stroke Social History Smoking and tobacco/nicotine status: never used tobacco/nicotine Quit status (tobacco/nicotine): has quit using Year quit tobacco: 2016 - PPD x 52 Years Alcohol intake: never Substance/Drug Use: never Lives independently: Yes Household members: none Marital status: Legally Current occupational status: employed and retired Do you think of yourself as: Straight/Heterosexual Current gender identity: Male Vitals/I&O/Wt Last Vital Signs Temp 101.9 F H 01/28/25 12:06 Pulse 101 H 01/28/25 14:45 Resp 27 H 01/28/25 14:45 BP 107/61 01/28/25 14:45 Pulse Ox 93 01/28/25 14:45 O2 Del Method Nasal Cannula 01/28/25 13:00 O2 Flow Rate 2 01/28/25 13:00 01/28/25 01/28/25 01/28/25 06:59 14:59 22:59 Intake Total 506.125 / 506.125 Balance 506.125 / 506.125 Weight last 48 hrs Weight 88.451 kg Physical Exam Narrative: General: Alert oriented x3, patient seen lying with 2LNC comfortably and able to speak in full sentences, mild productive coughing HEENT: Normocephalic, atraumatic, EOMI, breathing comfortably Cardio: Regular rate rhythm, normal S1-S2, no murmurs rubs gallops, JVD normal Respiratory: Good bilateral air entry, with mild wheezes and some coarse crackles appreciated on left lower side, could be due to phlegm and some on the right side as well GI: Abdomen soft, nontender, nondistended, normoactive bowel sounds present all 4 quadrants, Neuro: Cranial nerves II to XII intact, strength 5/5, sensation 5/5, no gross neurological deficit Behavior: Appropriate and cooperative Extremities: trace pedal edema Skin: Visible skin intact, no rashes Data 01/28/25 11:50 01/28/25 11:50 Micro: Microbiology 01/28/25 13:06 Blood Culture - Preliminary Blood SPECIMEN COLLECTED 01/28/25 12:59 Blood Culture - Preliminary Blood SPECIMEN COLLECTED A&P Assessment and plan 1. Status post total left knee replacement not using cement: 2. Acute exacerbation of chronic obstructive pulmonary disease: 3. Atrial fibrillation with RVR: 4. Community acquired pneumonia: 5. Atrial fibrillation: 6. Low back pain radiating to lower extremity: 7. Hyperlipidemia: 8. COPD (chronic obstructive pulmonary disease): 9. Hypertension: 10. Iron deficiency: 11. Hypothyroidism: Plan: moderate severe Pneumonia: COPD exacerbation Chest x-ray showed left sided small plueral effusion but no infiltrates Sputum cultures since the patient is having productive cough Respiratory viral panel To continue ceftriaxone and azithromycin to continue prednisone 40mg daily Continue on home oxygen and to maintain oxygen saturation between 88 to 90% Atrial fibrillation with RVR: Patient started on diltiazem drip and to titrate accordingly, resume his home medication with metoprolol and digoxin, patient already taking and confirmed it Consider cardiology consult in case the patient heart rate is not controlled Echo Telemetry monitoring Trop trend was not significant Apixaban 5 mg twice daily to continue Chronic artery disease/heart failure with preserved ejection fraction: Continue aspirin clopidogrel and statins Telemetry monitoring Hypothyroidism: Continue home dose 125 mcg daily Chronic back pain: Adequate analgesia DVT: Full dose anticoagulation with Eliquis for atrial fibrillation GI prophylaxis: PPI PDMP PDMP Reviewed: Not Reviewed Attestations Medical Necessity Statement*: The patient will stay more than 2 midnights for the management of his pneumonia, atrial fibrillation with RVR and further management of his multiple comorbidities as inpatient Time Spent in Patient Care: 16 - 35 minutes (>than 50% of time spent in counselling and/or direct pt care on unit). Other Attestations: Patient condition has been discussed at length with the patient/family, I have independently reviewed the chart labs imaging and diagnostics and EKG. the goals of care and code status with the patient/family/NOK/legal traveling representative, and documented accordingly. The patient/family has been informed about the current condition and further plan of care. Agreed with the plan of care and understood without any language barrier. This documentation was created by [employer] spin tank tender software. Every effort was made to ensure accuracy of spin tank tender. Any obvious errors or omissions should be clarified with the author of the document. 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 of Care Code 72538 Diagnoses Status post total left knee replacement not using cement Z96.652 Acute exacerbation of chronic obstructive pulmonary disease J44.1 Atrial fibrillation with RVR I48.91 Community acquired pneumonia J18.9 Atrial fibrillation I48.91 Low back pain radiating to lower extremity M54.50; M79.606 Hyperlipidemia E78.5 COPD (chronic obstructive pulmonary disease) J44.9 Hypertension I10 Iron deficiency E61.1 Hypothyroidism E03.9
[2025-01-28] MEDS: heparin 5,000 unit/mL INJ 1 mL 5000 UNIT SUBCUT (16:43)
[2025-01-28 16:56] LABS: Procalcitonin 0.45 ng/mL (0-0.5); Thyroid Stimulating Hormone 2.05 uIU/mL (0.27-4.20)
[2025-01-28 17:08] LABS: Magnesium 2.1 mg/dL (1.7-2.3)
[2025-01-28 18:09] LABS: Troponin 5 6HR 19.60 ng/L (0-15); Troponin 5 6HR Delta 1.60 ng/L (0-12)
--- NOTE | 2025-01-28 18:09 | ECG_ITS ---
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 Measurements Intervals [place] Rate: 86 P: 0 UT: 0 QRS: -44 QRSD: 141 T: 74 QT: 384 QTc: 460 Interpretive Statements ATRIAL FIBRILLATION WITH ABERRANT CONDUCTION OR VENTRICULAR PREMATURE COMPLEXES LEFT AXIS DEVIATION [QRS AXIS < -30] INTRAVENTRICULAR CONDUCTION DELAY [130+ ms QRS DURATION] INFERIOR MYOCARDIAL INFARCTION , OF INDETERMINATE AGE [40+ ms Q WAVE AND/OR ST/T ABNORMALITY IN II/aVF] Compared to ECG 01/28/2025 14:35:44 Ventricular premature complex(es) now present Aberrant conduction of supraventricular beat(s) now present Intraventricular conduction delay now present Myocardial infarct finding now present Right bundle-branch block no longer present ST (T wave) deviation no longer present Electronically Signed On 01-29-2025 22:52:56 CDT by Favio Ferguson M.D. [email or web address]
[2025-01-28] MEDS: ATORVASTATIN 10 MG TABLET PO (22:24)
[2025-01-28] MEDS: cefTRIAXone 1,000 mg SDV 1000 MG IVP (22:27)
[2025-01-28] MEDS: HYDROcodone-acetaminophen 5-325 mg Tablet 1 TAB PO (23:07)
[2025-01-29] VITALS (21 sets, daily range): BP systolic 94–118; BP diastolic 52–65; PULSE 64–91; RESP 14–29; TEMP 36.3–37.1; O2SAT 88–97; BMI 27.8
--- NOTE | 2025-01-29 00:25 | PC.NURSE ---
Called Dr. Berry around 2199 regarding cardizem gtt being on hold in AUG and his cough. Receicved orders to resume cardizem gtt on AUG and can give 1200 mg of mucinex BID for [address] Berry regarding patient having issues sleeping. Per patient he normally takes CBD gummies. Received orders for 6 mg melatonin once. Also Notified Dr. Berry that patient HR has been in the 60-70's and SBP in the 90's. Received orders to titrate to 2.5 and get an EKG.
--- NOTE | 2025-01-29 00:39 | ECG_ITS ---
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 Measurements Intervals [place] Rate: 72 P: 0 MS: 0 QRS: 23 QRSD: 132 T: 30 QT: 418 QTc: 460 Interpretive Statements ATRIAL FIBRILLATION RIGHT BUNDLE BRANCH BLOCK [120+ ms QRS DURATION, UPRIGHT V1, 40+ ms S IN I/aVL/V4/V5/V6] Compared to ECG 01/28/2025 18:25:10 Right bundle-branch block now present Ventricular premature complex(es) no longer present Aberrant conduction of supraventricular beat(s) no longer present Left-axis deviation no longer present Intraventricular conduction delay no longer present Myocardial infarct finding no longer present Electronically Signed On 01-29-2025 22:51:45 CDT by Favio Ferguson M.D. [id number]
[2025-01-29] MEDS: MELATONIN 3 MG TABLET 6 MG PO (01:00)
[2025-01-29 03:12] LABS: Coronavirus 229E,HKU1,NL63,OC4 Not Detected (NOT DETECT); Parainfluenza Virus Type 1 Not Detected (NOT DETECT); Parainfluenza Virus Type 2 Not Detected (NOT DETECT); Parainfluenza Virus Type 3 Not Detected (NOT DETECT); Parainfluenza Virus Type 4 Not Detected (NOT DETECT); SARS-COV-2 Not Detected (NOT DETECT)
[2025-01-29 04:20] LABS: Hematocrit 33.9 % (37-53); Hemoglobin 10.80 g/dL (11.27-16.99); Mean Corpuscular HGB Conc 31.9 g/dL (30-55); Mean Corpuscular Hemoglobin 27.3 pg (27-33); Mean Corpuscular Volume 85.8 fl (82-101); Nucleated Red Blood Cells % 0 %; Platelet Count 157 10^3/cmm (157-399); Red Blood Count 3.95 10^6/uL (3.85-5.65); White Blood Count 4.25 10^3/uL (3.29-11.43)
[2025-01-29 05:01] LABS: Alanine Aminotransferase 11 U/L (0-41); Albumin Level 3.2 g/dL (3.5-5.2); Alkaline Phosphatase 85 U/L (40-130); Anion Gap 17.0 (5-19); Aspartate Amino Transferase 14 U/L (0-40); Blood Urea Nitrogen 19 mg/dL (8-23); Calcium 8.5 mg/dL (8.5-10.5); Carbon Dioxide 20 mmol/L (22-29); Chloride 104 mmol/L (98-107); Creatinine Clr Calc Pharmacy 85.7301; Globulin 3.4 g/dL (1.3-4.6); Glucose 106 mg/dL (65-115); Osmolality Calculated 287 mOsm/kg (285-295); Potassium 4.0 mmol/L (3.5-5.1); Sodium 137 mmol/L (136-145); Total Protein 6.6 g/dL (6.6-8.7)
[2025-01-29] MEDS: HYDROmorphone tab 2 MG TABLET PO (06:01)
--- NOTE | 2025-01-29 09:44 | PC.CHAP ---
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 screw machine operator visit [] Patient/Family/Request visit [] Outpatient visit [] Follow-up visit [] Physician referral [] Code/Alert [x] Routine visit [] Staff referral [] Actively dying [] Patient sleeping [] Family support [] [] Out of room [] Palliative care [] [] Receiving care in room [] Pre-surgical visit [] Trauma [] Long length of stay [] ICU visit [] Other: Relational/Emotional Strength [x] Patient feels connected with others/family/visitors/staff [] Distress [] Loneliness/isolation [] Abandonment Spirituality of Patient [x] Person of [place] [] Attends Hoahaoism of their [place] [x] Believes in Prayer [] Reads Bible or Samaritan materials [] There are Spiritual issues to be addressed Glue Machine Operator Interventions [x] Prayer [x] Active listening [] Non-anxious presence [x] Spiritual/emotional support [] Crisis/trauma care [] Spiritual counseling [] Bereavement support [] Provided bereavement packet [] Provided Bible/devotional materials [] Provided toy/stuffed animal, coloring book to patient or family member [] Provided Communion [] Anointing/[place] [] Salvation [x] Completed spiritual assessment [] Other: Impact on Illness or Injury [] Angry [] Fearful [] Anxious [] Often cries [] Exhaustion [] Unable to work [] Unable to attend yarsani [] Unable to walk/stand [] Unable to read [] Unable to drive [] Unable to eat/drink [] Unable to sleep [] Unable to be with family [] Patient intubated [] Other: Summary Time spent with patient 5 min
--- NOTE | 2025-01-29 12:02 | PM.PN ---
Subjective Subjective: the patient was seen and is much better. still have been febrile overnight but slowly getting bettter mild productive cough but sob has been much better Vitals/I&O/Wt Last Vital Signs Temp 97.9 F 01/29/25 11:49 Pulse 77 01/29/25 11:49 Resp 19 H 01/29/25 11:49 BP 118/57 01/29/25 11:49 Pulse Ox 96 01/29/25 11:49 O2 Del Method Nasal Cannula 01/29/25 11:49 O2 Flow Rate 2 01/29/25 08:05 01/28/25 01/29/25 01/29/25 22:59 06:59 14:59 Intake Total 343.875 / 850.000 240 / 240 Output Total 200 / 200 Balance 143.875 / 650.000 240 / 240 Weight last 48 hrs Weight 88.054 kg Weight 88.904 kg Weight 88.451 kg Physical Exam Narrative: General: Alert oriented x3, patient seen lying with 2LNC comfortably and able to speak in full sentences, mild productive coughing HEENT: Normocephalic, atraumatic, EOMI, breathing comfortably Cardio: Regular rate rhythm, normal S1-S2, no murmurs rubs gallops, JVD normal Respiratory: Good bilateral air entry, with mild wheezes and some coarse crackles appreciated on left lower side and right side as well, could be due to phlegm and some on the right side as well GI: Abdomen soft, nontender, nondistended, normoactive bowel sounds present all 4 quadrants, Neuro: Cranial nerves II to XII intact, strength 5/5, sensation 5/5, no gross neurological deficit Behavior: Appropriate and cooperative Extremities: trace pedal edema Skin: Visible skin intact, no rashes Data 01/29/25 03:47 01/29/25 03:47 Micro: Microbiology 01/28/25 13:06 Blood Culture - Preliminary Blood SPECIMEN COLLECTED 01/28/25 12:59 Blood Culture - Preliminary Blood SPECIMEN COLLECTED A&P Assessment and plan 1. Status post total left knee replacement not using cement: 2. Acute exacerbation of chronic obstructive pulmonary disease: 3. Atrial fibrillation with RVR: 4. Community acquired pneumonia: 5. Atrial fibrillation: 6. Low back pain radiating to lower extremity: 7. Mixed hyperlipidemia: 8. Centrilobular emphysema: 9. Secondary hypertension: 10. Iron deficiency: 11. Acquired hypothyroidism: Plan: moderate severe Pneumonia: COPD exacerbation Chest x-ray showed left sided small plueral effusion but no infiltrates Sputum cultures since the patient is having productive cough Respiratory viral panel negative sputum culture pending To continue ceftriaxone and azithromycin to continue prednisone 40mg daily Continue on home oxygen and to maintain oxygen saturation between 88 to 90% Atrial fibrillation with RVR: resolved Patient started on diltiazem drip and to hold it, resume his home medication with metoprolol and digoxin, patient already taking and confirmed it and based on BP and HR to continue oral medications Echo Telemetry monitoring to 24 hours and if controlled HR and no atypical chest pain, then no need for telemetry Trop trend was not significant Apixaban 5 mg twice daily to continue Chronic artery disease/heart failure with preserved ejection fraction: Continue aspirin clopidogrel and statins Hypothyroidism: Continue home dose 125 mcg daily Chronic back pain: Adequate analgesia DVT: Full dose anticoagulation with Eliquis for atrial fibrillation GI prophylaxis: PPI PDMP PDMP Reviewed: Not Reviewed Attestations Medical Necessity Statement*: patient will stay less than 1 midnight for management of his pneumonia, at fib with RVR Time Spent in Patient Care: 16 - 35 minutes (>than 50% of time spent in counselling and/or direct pt care on unit). Other Attestations: Patient condition has been discussed at length with the patient/family, I have independently reviewed the chart labs imaging and diagnostics and EKG. the goals of care and code status with the patient/family/NOK/legal pharmaceutical representative, and documented accordingly. The patient/family has been informed about the current condition and further plan of care. Agreed with the plan of care and understood without any language barrier. This documentation was created by [employer] extension edger software. Every effort was made to ensure accuracy of extension edger. Any obvious errors or omissions should be clarified with the author of the document. 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 of Care Code 45983 Diagnoses Status post total left knee replacement not using cement Z96.652 Acute exacerbation of chronic obstructive pulmonary disease J44.1 Atrial fibrillation with RVR I48.91 Community acquired pneumonia J18.9 Atrial fibrillation I48.91 Low back pain radiating to lower extremity M54.50; M79.606 Mixed hyperlipidemia E78.2 Hyperlipidemia type: mixed hyperlipidemia Centrilobular emphysema J43.2 COPD type: emphysema Emphysema type: centrilobular Secondary hypertension I15.9 Hypertension type: unspecified secondary hypertension Iron deficiency E61.1 Acquired hypothyroidism E03.9 Hypothyroidism type: acquired
[2025-01-29] MEDS: FUROsemide 10 mg/mL SDV 2mL 20 MG IVP (12:45)
[2025-01-29] MEDS: ATORVASTATIN 10 MG TABLET PO (21:58)
[2025-01-29] MEDS: cefTRIAXone 1,000 mg SDV 1000 MG IVP (21:58)
[2025-01-30] VITALS (10 sets, daily range): BP systolic 113–120; BP diastolic 54–67; PULSE 77–94; RESP 15–21; TEMP 36.6–36.9; O2SAT 95–98
[2025-01-30 05:04] LABS: Hematocrit 32.7 % (37-53); Hemoglobin 10.60 g/dL (11.27-16.99); Mean Corpuscular HGB Conc 32.4 g/dL (30-55); Mean Corpuscular Hemoglobin 27.3 pg (27-33); Mean Corpuscular Volume 84.3 fl (82-101); Nucleated Red Blood Cells % 0 %; Platelet Count 170 10^3/cmm (157-399); Red Blood Count 3.88 10^6/uL (3.85-5.65); White Blood Count 3.55 10^3/uL (3.29-11.43)
[2025-01-30 05:25] LABS: Alanine Aminotransferase 12 U/L (0-41); Albumin Level 3.3 g/dL (3.5-5.2); Alkaline Phosphatase 83 U/L (40-130); Anion Gap 12.6 (5-19); Aspartate Amino Transferase 11 U/L (0-40); Blood Urea Nitrogen 21 mg/dL (8-23); Calcium 8.5 mg/dL (8.5-10.5); Carbon Dioxide 25 mmol/L (22-29); Chloride 103 mmol/L (98-107); Creatinine Clr Calc Pharmacy 96.0332; Globulin 3.4 g/dL (1.3-4.6); Glucose 151 mg/dL (65-115); Osmolality Calculated 290 mOsm/kg (285-295); Potassium 3.6 mmol/L (3.5-5.1); Sodium 137 mmol/L (136-145); Total Protein 6.7 g/dL (6.6-8.7)
--- NOTE | 2025-01-30 12:20 | P.DS_ITS ---
Discharge Providers Date of Admission: 01/28/25 19:17 Date of Discharge: January 30, 2025 Attending Provider at Admission: Ginger Peters MD Attending Provider at Discharge: Ginger Peters MD Primary Care Provider: PATO Hernandez Diagnoses at Discharge Discharge Diagnosis 1. Status post total left knee replacement not using cement: 2. Acute exacerbation of chronic obstructive pulmonary disease: 3. Atrial fibrillation with RVR: 4. Atrial fibrillation: 5. Low back pain radiating to lower extremity: 6. Mixed hyperlipidemia: 7. Centrilobular emphysema: 8. Secondary hypertension: 9. Iron deficiency: 10. Acquired hypothyroidism: Reason for Visit Reason for Visit: SOB, chest discomfort Brief History: History as per the previous notes and the patient : Gabino Jones is a 69 year old male with past medical history of prostate cancer, heart failure with preserved ejection fraction, hypertension, anemia, atrial fibrillation, hypothyroidism, hyperlipidemia, COPD, on home oxygen 2 L nasal cannula presented to the ER with shortness of breath With productive cough, whitish in color from the last few days. 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 He was found to have right lower basal infiltrates on chest x-ray however there was no leukocytosis, based upon his shortness of breath and chest x-ray findings and symptoms likely having infective COPD exacerbation. The patient was also found to have atrial fibrillation with RVR and started on nicardipine drip. His heart rate improved and to resume his home medications. the patient did not report any high grade fever, chills or any wt loss. chest pain, dizziness, diaphoresis, loss of consciousness, skin rash or any other joint swellings or pain. no orthopnea or PND. Hospital Course Hospital Course Patient admitted as a case of COPD exacerbation since he was having productive cough and shortness of breath. In the chest x-ray showed left-sided small pleural effusion but there was no infiltrate sputum cultures and respiratory panel was sent and the patient was started on ceftriaxone and azithromycin with prednisone 40 mg daily. Patient was also having atrial fibrillation with RVR and was started on diltiazem drip and it was titrated accordingly with resumption of his home medication that included metoprolol and digoxin. He was kept on apixaban 5 mg since he was having atrial fibrillation for anticoagul ation. His home medications were continued as it is to manage his baseline comorbidities. Patient blood cultures were sent and it was negative. And on Gram stain showed many WBCs, moderate gram-positive cocci in pairs chains and clusters and few gram-positive rods and negative rods. The patient requires home oxygen at 2 to 3 L nasal cannula and was kept on home oxygen. There was no further deterioration and the patient improved throughout his hospital course. The patient is discharged on home with broad-spectrum antibiotics and the plan of care has been discussed. Further follow-up at the time of discharge and postdischarge has been provided Patient condition has been discussed at length with the patient/family, I have independently reviewed the chart labs imaging and diagnostics and EKG. the goals of care and code status with the patient/family/NOK/legal sales and service representative, and documented accordingly. The patient/family has been informed about the current condition and further alba n of care. Agreed with the plan of care and understood without any language barrier. This documentation was created by [employer] car inspector software. Every effort was made to ensure accuracy of car inspector. Any obvious errors or omissions should be clarified with the author of the document. Physical Exam Narrative: General: Alert oriented x3, patient seen lying without oxygen and saturating at 92 to 93% and was comfortable and able to speak in full sentences, mild productive coughing HEENT: Normocephalic, atraumatic, EOMI, breathing comfortably Cardio: Regular rate rhythm, normal S1-S2, no murmurs rubs gallops, JVD normal Respiratory: Good bilateral air entry, with mild wheezes and some coarse crackles appreciated on left lower side and right side as well however improved than yesterday, could be due to phlegm and some on the right side as well GI: Abdomen soft, nontender, nondistended, normoactive bowel sounds present all 4 quadrants, Neuro: Cranial nerves II to XII intact, strength 5/5, sensation 5/5, no gross neurological deficit Behavior: Appropriate and cooperative Extremities: trace pedal edema Skin: Visible skin intact, no rashes Discharge Data Studies Completed and Pending Completed Studies During Hospitalization Category Date Time Status CT head wo con* [id number] Stat Cat Scan 01/28/25 12:37 Completed XR chest 1V portable [id number] Stat Exams 01/28/25 12:09 Completed Pending at discharge Category Date Time Status Blood Culture Stat Lab 01/28/25 13:06 Results Sputum Culture and Gram Stain Routine Lab 01/28/25 23:40 Results Radiology Impressions Head CT 01/28/25 12:37 IMPRESSION: 1. No evidence of intracranial hemorrhage or mass effect. 2. No acute intracranial findings. Laboratory Results WBC 3.55 10^3/uL (3.29-11.43) 01/30/25 04:29 RBC 3.88 10^6/uL (3.85-5.65) 01/30/25 04:29 Hgb 10.60 g/dL (11.27-16.99) L 01/30/25 04:29 Hct 32.7 % (37-53) L 01/30/25 04:29 MCV 84.3 fl (82-101) 01/30/25 04:29 MCH 27.3 pg (27-33) 01/30/25 04:29 MCHC 32.4 g/dL (30-55) 01/30/25 04:29 RDW 17.2 % (12.1-15.1) H 01/30/25 04:29 Plt Count 170 10^3/cmm (157-399) 01/30/25 04:29 MPV 9.6 fL (7.4-10.4) 01/30/25 04:29 Neut % (Auto) 78.6 % 01/30/25 04:29 Lymph % (Auto) 10.1 % 01/30/25 04:29 [place] % (Auto) 10.1 % 01/30/25 04:29 Eos % (Auto) 0.3 % 01/30/25 04:29 Baso % (Auto) 0.3 % 01/30/25 04:29 Neut # (Auto) 2.79 10^3/uL (1.8-7.7) 01/30/25 04:29 Lymph # (Auto) 0.4 10^3/uL (0.8-4.8) L 01/30/25 04:29 [place] # (Auto) 0.4 10^3/uL (0.2-0.9) 01/30/25 04:29 Eos # (Auto) 0.0 10^3/uL (0.0-0.8) 01/30/25 04:29 Baso # (Auto) 0.0 10^3/uL (0.0-0.1) 01/30/25 04:29 Nucleated RBC % (auto) 0 % 01/30/25 04:29 Nucleated RBCs # 0.0 /100WBC 01/30/25 04:29 Sodium 137 mmol/L (136-145) 01/30/25 04:29 Potassium 3.6 mmol/L (3.5-5.1) 01/30/25 04:29 Chloride 103 mmol/L (98-107) 01/30/25 04:29 Carbon Dioxide 25 mmol/L (22-29) 01/30/25 04:29 Anion Gap 12.6 (5-19) 01/30/25 04:29 BUN 21 mg/dL (8-23) 01/30/25 04:29 Creatinine 0.7 mg/dL (0.7-1.2) 01/30/25 04:29 GFR Calculation 111.5 mL/min (90-130) 01/30/25 04:29 Glucose 151 mg/dL (65-115) H 01/30/25 04:29 POC Glucose 193 mg/dL (70-110) H 01/30/25 11:31 Calculated Osmolality 290 mOsm/kg (285-295) 01/30/25 04:29 Lactic Acid 2.0 mmol/L (0.5-2.2) 01/28/25 11:50 Calcium 8.5 mg/dL (8.5-10.5) 01/30/25 04:29 Phosphorus 3.1 mg/dL (2.5-4.5) 01/28/25 11:50 Magnesium 2.1 mg/dL (1.7-2.3) 01/28/25 11:50 Total Bilirubin 0.3 mg/dL (0.15-1.2) 01/30/25 04:29 AST 11 U/L (0-40) 01/30/25 04:29 ALT 12 U/L (0-41) 01/30/25 04:29 Alkaline Phosphatase 83 U/L (40-130) 01/30/25 04:29 Troponin T Baseline 18 ng/L (0-15) H 01/28/25 11:50 Troponin T 120 Minute 19.48 ng/L (0-15) H 01/28/25 14:07 Delta Troponin T 1.48 ABS# (0-10) 01/28/25 14:07 Troponin T Hi Sens 6Hr 19.60 ng/L (0-15) H 01/28/25 17:45 Troponin T Hi Sens 6Hr Delta 1.60 ng/L (0-12) 01/28/25 17:45 NT-Pro-B Natriuret Pep 4351 pg/mL (0-125) H 01/28/25 11:50 Total Protein 6.7 g/dL (6.6-8.7) 01/30/25 04:29 Albumin 3.3 g/dL (3.5-5.2) L 01/30/25 04:29 Globulin 3.4 g/dL (1.3-4.6) 01/30/25 04:29 Procalcitonin 0.45 ng/mL (0-0.5) 01/28/25 11:50 TSH 2.05 uIU/mL (0.27-4.20) 01/28/25 11:50 Urine Color [place] (Yellow) A 01/28/25 13:43 Urine Appearance Clear (CLEAR) 01/28/25 13:43 Urine pH 5.0 (5-7) 01/28/25 13:43 Ur Specific [place] 1.034 (1.005-1.030) H 01/28/25 13:43 Urine Protein 1+ (Negative) A 01/28/25 13:43 Urine Glucose (UA) 3+ (Normal) H 01/28/25 13:43 Urine Ketones Trace (Negative) 01/28/25 13:43 Urine Blood Negative (Negative) 01/28/25 13:43 Urine Nitrate Not tested (Negative) A 01/28/25 13:43 Urine Bilirubin 1+ (Negative) H 01/28/25 13:43 Urine Urobilinogen 1.0 mg/dL (Negative) 01/28/25 13:43 Ur Leukocyte Esterase Trace (Negative) A 01/28/25 13:43 Urine RBC 0-2 /hpf (0-2) 01/28/25 13:43 Urine WBC 0-5 /hpf (0-5) 01/28/25 13:43 Ur Squamous Epith Cells 0-5 /hpf (0-5) 01/28/25 13:43 Amorphous Sediment Not Reportable 01/28/25 13:43 Urine Bacteria None seen /hpf (NONE) 01/28/25 13:43 Hyaline Casts 3.71 /lpf 01/28/25 13:43 Digoxin 0.5 ng/mL (0.6-1.2) L 01/28/25 11:50 Adenovirus (PCR) Not detected (NOT DETECT) 01/29/25 01:10 C. pneumoniae DNA (PCR) Not detected (NOT DETECT) 01/29/25 01:10 Coronavirus 229E (PCR) Not detected (NOT DETECT) 01/29/25 01:10 Human Metapneumovir PCR Not detected (NOT DETECT) 01/29/25 01:10 Influenza A (H1) PCR Not detected (NOT DETECT) 01/29/25 01:10 Influ A (H1/09) PCR Not detected (NOT DETECT) 01/29/25 01:10 Influenza A (H3) PCR Not detected (NOT DETECT) 01/29/25 01:10 Influenza Type A (PCR) Not detected (NOT DETECT) 01/29/25 01:10 Influenza Type B (PCR) Not detected (NOT DETECT) 01/29/25 01:10 M. pneumoniae (PCR) Not detected (NOT DETECT) 01/29/25 01:10 Parainfluenza 1 (PCR) Not detected (NOT DETECT) 01/29/25 01:10 Parainfluenza 2 (PCR) Not detected (NOT DETECT) 01/29/25 01:10 Parainfluenza 3 (PCR) Not detected (NOT DETECT) 01/29/25 01:10 Parainfluenza 4 (PCR) Not detected (NOT DETECT) 01/29/25 01:10 RSV Type A (PCR) Not detected (NOT DETECT) 01/29/25 01:10 RSV Type B (PCR) Not detected (NOT DETECT) 01/29/25 01:10 Entero/Rhino (PCR) Not detected (NOT DETECT) 01/29/25 01:10 SARS-CoV-2 (PCR) Not detected (NOT DETECT) 01/29/25 01:10 Vitals Last Vital Signs Temp 97.9 F 01/30/25 07:28 Pulse 94 01/30/25 08:12 Resp 18 01/30/25 08:12 BP 120/67 01/30/25 07:28 Pulse Ox 96 01/30/25 08:12 O2 Del Method Nasal Cannula 01/30/25 08:12 O2 Flow Rate 2 01/30/25 08:12 Discharge Plan Discharge Patient Disposition: Home Condition: Stable Prescriptions: New guaifenesin [Mucinex] 600 mg Tablet Extended Release 12hr 1,200 mg PO BID PRN (Reason: Cough) 10 Days Qty: 20 0RF prednisone 20 mg Tablet 40 mg PO DAILY 3 Days Qty: 6 0RF amoxicillin-pot clavulanate [Augmentin] 500-125 mg tablet 1 tab PO Q8H 5 Days Qty: 15 0RF Continued diclofenac sodium 1 % gel 4 g topical QID PRN (Reason: joint pain) Qty: 100 3RF Rx Instructions: apply to single knee, ankle, foot; for foot includes sole/toes/top of foot insulin glargine [Lantus Solostar U-100 Insulin] 100 unit/mL (3 mL) insulin pen 10 unit SUBCUT DAILY Qty: 15 0RF acetaminophen 650 mg tablet extended release 650 mg PO Q12H PRN (Reason: Pain) empagliflozin 25 mg tablet 12.5 mg PO DAILY Qty: 30 0RF ergocalciferol (vitamin D2) 1,250 mcg (50,000 unit) capsule 1,250 mcg PO .Weekly Qty: 30 0RF pantoprazole 40 mg tablet,delayed release (DR/EC) 40 mg PO DAILY Qty: 30 0RF folic acid 1 mg tablet 1 mg PO DAILY Qty: 30 0RF cyanocobalamin (vitamin B-12) 1,000 mcg capsule 1,000 mcg PO DAILY Qty: 30 0RF prochlorperazine maleate [Compazine] 10 mg tablet 10 mg PO Q4H PRN (Reason: Mild Nausea) Qty: 30 1RF Eliquis 5 mg Tablet 5 mg PO BID Qty: 60 0RF potassium chloride 20 mEq Tablet Extended Release 20 meq PO QAM furosemide [Lasix] 40 mg tablet 40 mg PO QAM Flomax 0.4 mg capsule 0.4 mg PO BID albuterol sulfate 90 mcg/actuation HFA aerosol inhaler 2 inh INHALATION Q4H PRN (Reason: shortness of breath or wheezing) Qty: 18 0RF (DME) pen needle, diabetic [BD Ultra-Fine Micro Pen Needle] 32 gauge x 1/4 needle See Rx Instructions .ROUTE .MEDSUPPLY Qty: 50 0RF Rx Instructions: As directed (DME) lancets [facility] See Rx Instructions .ROUTE .MEDSUPPLY Qty: 100 0RF Rx Instructions: As directed (DME) blood-glucose meter [Blood Glucose Monitoring] Kit See Rx Instructions .ROUTE .MEDSUPPLY Qty: 1 0RF Rx Instructions: As directed calcium carbonate-vitamin D3 600 mg-5 mcg (200 unit) Tablet 1 tab PO DAILY levothyroxine 125 mcg Tablet 125 mcg PO QAM fluticasone propion-salmeterol [Advair Diskus] 100-50 mcg/dose blister with device 1 inh inhalation BEDTIME atorvastatin 20 mg Tablet 10 mg PO BEDTIME albuterol sulfate 2.5 mg /3 mL (0.083 %) Solution For Nebulization 2.5 mg INHALATION Q6H hydrocodone-acetaminophen [Holden] 5-325 mg Tablet 1 tab PO Q6H PRN (Reason: Pain) sertraline 100 mg Tablet 100 mg PO QPM clopidogrel 75 mg Tablet 75 mg PO DAILY aspirin [Aspir-81] 81 mg Tablet,Delayed Release (Dr/Ec) 81 mg PO DAILY gabapentin 100 mg Capsule 200 mg PO TID metoprolol tartrate 25 mg Tablet 37.5 mg PO BID cholecalciferol (vitamin D3) [Vitamin D3] 50 mcg (2,000 unit) Tablet 50 mcg PO DAILY Spiriva Respimat 2.5 mcg/actuation Mist 2 puff INHALATION DAILY sennosides-docusate sodium 8.6-50 mg tablet 1 tab PO DAILY loratadine 10 mg tablet 10 mg PO QAM nitroglycerin [Nitrostat] 0.4 mg Tablet, Sublingual 0.4 mg SUBLINGUAL Q5M PRN (Reason: Chest Pain) Rx Instructions: do not exceed 3 doses per episode digoxin 250 mcg (0.25 mg) tablet 250 mcg PO QAM Discharge Order = DC NOW: Discharge Order (Routine); Ordered 01/30/25 Ordered By: Ginger Peters Referrals: Ximena Velez FNP [Nurse Practitioner, Cardiology] Referral Note: Atrial fib for follow up We have notified your physician's clinic of the need for a follow-up appointment to be scheduled. If you have not heard from them within the next 2 business days, please call them directly. Isela Gipson FNP [Primary Care Provider, Nurse Practitioner] - 02/08/25 10:30 am Discharge Diet: Advance as tolerated and Usual diet Discharge Activity: Resume usual activity, Increase activity as tolerated and Limit activity as instructed Patient Instructions: Prednisone (By mouth), Guaifenesin (By mouth), Amoxicillin/Clavulanate Potassium (By mouth), Opioid Safety, Patient Portal & Elizabeth Instructions Discharge Attestations Time Spent in Discharge Care*: greater than 30 min Specific Discharge Activities: educating patient, educating and/or supporting family/caregiver, discussing with pcp/other providers, discussing with case liner/social workers/dc planners, documenting/other paperwork and evaluating patient/reviewing data Status at Discharge: Cognitive status at discharge: cognitively intact , Behavioral status at discharge: cooperative , Functional status at discharge: independent ambulation , Overall status at discharge: patient is back to baseline Quality Metrics Clinical Quality Measures [ No reported AMI, CVA or VTE this stay] 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 of Care Code Acute Code for Chg Fwd Diagnoses Status post total left knee replacement not using cement Z96.652 Acute exacerbation of chronic obstructive pulmonary disease J44.1 Atrial fibrillation with RVR I48.91 Community acquired pneumonia J18.9 Atrial fibrillation I48.91 Low back pain radiating to lower extremity M54.50; M79.606 Mixed hyperlipidemia E78.2 Hyperlipidemia type: mixed hyperlipidemia Centrilobular emphysema J43.2 COPD type: emphysema Emphysema type: centrilobular Secondary hypertension I15.9 Hypertension type: unspecified secondary hypertension Iron deficiency E61.1 Acquired hypothyroidism E03.9 Hypothyroidism type: acquired
--- NOTE | 2025-01-30 13:27 | PC.NURSE ---
Patient in possession of home med scripts at this time. Patient Educated on follow up appointments, new and continued meds, A- fib, COPD and S/S to call PCP and or seek care at ER. Patient had no questions at the time of discharge.
--- NOTE | 2025-01-30 13:41 | PC.NURSE ---
Patient provided with a ride to his vehicle via personnel security assistant. Patient is on 2L NC. IVs removed. All belongings with patient at the time of departure.
== END 2025-01-30 13:45 | disposition home or self-care (01) | DRG 190 ==
LOC: ER 13:42 → CSU 19:18
PROVIDERS: Admitting Provider Student in an Organized Health Care Education/Training Program; Emergency Provider Family Medicine; PCP Nurse Practitioner; Visit Provider Student in an Organized Health Care Education/Training Program
DX: J44.1 Chronic obstructive pulmonary disease with (acute) exacerbation (principal); J18.9 Pneumonia, unspecified organism; I50.30 Unspecified diastolic (congestive) heart failure; J96.10 Chronic respiratory failure, unspecified whether with hypoxia or hypercapnia; J44.0 Chronic obstructive pulmonary disease with (acute) lower respiratory infection; I48.91 Unspecified atrial fibrillation; G89.29 Other chronic pain; M54.50 Low back pain, unspecified; J43.2 Centrilobular emphysema; I15.9 Secondary hypertension, unspecified; E61.1 Iron deficiency; E03.8 Other specified hypothyroidism; J44.9 Chronic obstructive pulmonary disease, unspecified; I25.10 Atherosclerotic heart disease of native coronary artery without angina pectoris; K21.9 Gastro-esophageal reflux disease without esophagitis; Z85.46 Personal history of malignant neoplasm of prostate; Z99.81 Dependence on supplemental oxygen; Z96.652 Presence of left artificial knee joint; Z87.891 Personal history of nicotine dependence; Z95.1 Presence of aortocoronary bypass graft; Z79.02 Long term (current) use of antithrombotics/antiplatelets; Z79.01 Long term (current) use of anticoagulants
CPT/HCPCS: 36415; 36416; 70450; 71045; 80053; 80162; 81001; 82962; 83605; 83735; 83880; 84100; 84145; 84443; 84484; 85025; 87040; 87070; 87205; 87486; 87581; 87633; 93005; 94640; 96365; 96372; 96375; 99285; J0456; J0696; J1644; J1815; J1938; J3490; J7040; J7050; J7512; J7614; J7626; J7644; J9999

== ENCOUNTER 2025-02-01 05:00 | Outpatient (RCR) | payer OTHER, SELFPAY | END 2025-03-02 23:59 | disposition home or self-care (01) | LOC: TPT 05:00 | PROVIDERS: PCP Nurse Practitioner; Visit Provider Nurse Practitioner | DX: Z47.1 Aftercare following joint replacement surgery (principal); Z96.652 Presence of left artificial knee joint | CPT/HCPCS: 97110; 97161 ==

== ENCOUNTER 2025-03-01 12:39 | Emergency (ER) | payer OTHER, SELFPAY ==
--- OUTSIDE RECORDS SUMMARY | 2024-05-20 09:10 | XMS_ITS ---
Author Organization [facility] Address [address] [place] [address] Care Team Providers Care Street Light Cleaner Name Role Phone Sameera Patel REASON FOR VISIT 3m f/u With BMP and bone density test, for possible Prolia., Encounters Encounter Location Date Provider Diagnosis [facility] [address] [place] [address] [address] [place] [address] 05/20/2024 Sameera Patel Plan Of Treatment No Information Progress Notes * SEA HODGEDOB:1955 (69 yo M)Acc No.[id number]:05/20/2024 Progress Notes Patient: SEA BELL CYRUS Provider: PATO Stover :1955 A ge:68 Y S ex:Male Date:05/20/2024 Address: [address], [id number] Subjective: * Chief Complaints: * 3 m f/u With BMP and bone density test, for possible Prolia., * Electronic signature of PATO Saldana on 03/01/2025 at 12:44 PM CDT Sign off status: Pending * Provider: PATO Stover Date: 07/21/2023 Generated for Halie flowers/Fiordaliza/Shaguftaitting on: 0 03/01/2025 12:44 PM CDT
--- OUTSIDE RECORDS SUMMARY | 2024-10-05 06:10 | XMS_ITS ---
Author Organization [facility] Address [address] [place] [address] Care Team Providers Care Buyer Assistant Name Role Phone Sameera Patel Unavailable REASON FOR VISIT 3 month f/u with psa ua pvr and bone density Encounters Encounter Location Date Provider Diagnosis [facility] [address] [place] [address] [address] [place] [address] 10/05/2024 Sameera Patel Personal history of malignant neoplasm of prostate Z85.46 ; Bladder neck obstruction N32.0 ; [facility]DC (current) use of other agents affecting estrogen receptors and estrogen levels Z79.818 and Urinary retention R33.9 Assessments Encounter Date Diagnosis (ICD Code) Assessment Notes Treatment Notes Treatment Clinical Notes Section Notes 10/05/2024 Personal history of malignant neoplasm of prostate (ICD-10 - Z85.46) 10/05/2024 Bladder neck obstruction (ICD-10 - N32.0) 10/05/2024 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 Shepherd about a prostatectomy, he denied being on androgen ablation, we requested records from oncology in [place] to determine what his plan of care was He was having issues with urgency and frequency, we placed him on Gemtesa for 4 weeks to see if that would help his issues He was supposed to have a bone density test Progress Notes * AYESHA SEA BRIDGESDOB:1955 (69 yo M)Acc No.[id number]:10/05/2024 Progress Notes Patient: SEA BELL Provider: PATO Stover :1955 A ge:69 Y S ex:Male Date:10/05/2024 Address:[place] [address], [facility] Subjective: * Chief Complaints: * 3 month f/u with psa ua pvr and bone density * HPI: Giovanny slade Note: 68-year-old male presents to the clinic for follow-up Last seen in July 2024 prostate cancer, Treated with EBRT +5 = 10 prostate cancer ADT in [place] with oncology PSA was less than 0.014 in 2023 Tamsulosin twice daily Bone scan performed at [facility] on 03/07/2024 show no osseous lesions suspicious for metastatic disease, soft tissue contour is normal, kidneys normal, degenerative type uptake in both shoulders and AC joints, degenerative uptake in both knees and ankles No evidence of osseous metastatic disease Patient went to talk to Dr. Shepherd about a prostatectomy, he denied being on androgen ablation, we requested records from oncology in [place] to determine what his plan of care [...] 0 10/05/2024 Generated for Halie flowers/Fiordaliza/Quinn on: 0 03/01/2025 12:44 PM CDT
--- OUTSIDE RECORDS SUMMARY | 2025-03-01 12:44 | XMS_ITS | Clinical Summary ---
Author Organization [facility] Address [address] [phone] Phone Care Team Providers Care Application Development Specialist Name Role Phone Unavailable Primary Care Provider [...] loratadine (CLARITIN) 10 mg tablet 10 mg. 3 Active omeprazole (PriLOSEC) 40 mg Capsule, Delayed Release(E.C.) Take 40 mg by mouth daily. Active dorzolamide-андрей oloL (COSOPT) 22.3-6.8 mg/mL solution Administer 1 Drop in right eye 2 times daily. 10 mL 1 4 Active calcium as CARBONATE-vitam in D3 (CALCIUM [...] mg) by mouth daily. 90 Tablet 3 5 Active clopidogreL (PLAVIX) 75 mg Tablet Take 1 Tablet (75 mg) by mouth daily. 90 Tablet 3 5 Active HYDROcodone-nico taminophen (NORCO) 5-325 mg tabletIndicatio ns:PAD (peripheral artery disease),Post-o perative pain Take 1 Tablet by mouth every 6 hours as needed for Pain, Moderate. Max Daily Amount: 4 Tablets 10 Tablet 5 Active Active Problems Problem Noted Date Diagnosed Date [...] Type Department Care Team Description 01/21/2025 Telephone [facility] Op[facility] [place] [address] [phone] Hannah Powell MD Information 01/18/2025 2:57 PM CDT Anesthesia Event [facility] Operating Room [address] [place] [phone] Ronnie Camejo DO 01/18/2025 1:12 PM CDT - 01/18/2025 2:33 PM CDT Surgery [facility] Operating Room [address] [place] [phone] Kaden Mayer MD FEMORAL ANGIOGRAPHY WITH INTERVENTION 01/18/2025 10:50 AM CDT - 01/19/2025 12:40 PM CDT Hospital Encounter [facility] 3A Surgical [address] [place] [phone] Kaden Mayer MD Peripheral vascular disease, unspecified Discharge Disposition: Home or Self Care 01/18/2025 6:52 AM CDT - 01/18/2025 11:59 PM CDT Hospital Encounter [facility] Interventional Radiology OR [address] [phone] Kaden Mayer MD Discharge Disposition: Home or Self Care 01/12/2025 External Device Data STL ABSTRACTION Provider, Abstract 01/12/2025 External Device Data STL ABSTRACTION Provider, Abstract 01/11/2025 Telephone [facility] [place] [address] [place] [phone] Kaden Mayer MD Follow Up 01/06/2025 2:45 PM CDT - 01/06/2025 11:59 PM CDT Hospital Encounter [facility] Pre Admission Testing [facility] [address] [place] [phone] Kaden Mayer MD Discharge Disposition: Home or Self Care 01/06/2025 1:00 PM CDT Office Visit [facility] [address] [place] [phone] Kaden Mayer MD PAD (peripheral artery disease) (Primary Dx); Encounter for preadmission testing 01/06/2025 Telephone [facility] [address] [place] [address] Kaden Mayer MD Surgery Talk 01/04/2025 Telephone [facility] [address] [place] [phone] Kaden Mayer MD Appointment Verification 12/22/2024 External Device Data STL ABSTRACTION Provider, Abstract 12/22/2024 External Device Data STL ABSTRACTION Provider, Abstract 12/21/2024 Telephone [facility] [address] [place] [phone] Kaden Mayer MD Appointment Notification 12/17/2024 Orders Only [facility] [place] [address] [place] [phone] Provider, Abstract from Last 3 Months Immunizations Immunization Administration Dates Next Due (ADACEL/BOOSTRIX)(10 YR UP) TDAP VACCINE, 0.5ML, IM 11/07/2010 (JOSÉ MIGUEL) COVID-19 VACCINE - EMERGENCY USE AUTHORIZATION, AD26,COV2S(PF) 0.5 ML IM SUSP 04/07/2021 (PNEUMOVAX 23)(50 YRS UP) PN EUMOCOCCAL POLYSACCHARIDE (PPV23) 0.5 ML, IM 03/17/2019,03/22/2018,01/20/2018 (PREVNAR 20)(6 WKS UP) PNEUM OCOCCAL CONJUGATE VACCINE 20-VALENT (PCV20), POLYSACCHARIDE RUP894 CONJUGATE, ADJUVANT 0.5 ML (PF) IM 02/06/2022 [...] Description 03/02/2025 11:10 AM CDT Office Visit [facility] [place] [address] [phone] Hannah Powell MD [address] [place] [address] 03/03/2025 2:30 PM CDT Ancillary Procedure [facility]- [address] [phone] Kaden Mayer MD [address] [place] [phone] 03/03/2025 3:45 PM CDT Office Visit [facility] [address] [place] [phone] Kaden Mayer MD [address] [place] [phone] Health Maintenance Due Date Last Done [...] Abdominal Aortic Aneurysm (A AA) Screening 08/23/2019 INFLUENZA VACCINE (#1) 2025 , 03/06/2021, 04/05/2020, Additional history exists COVID-19 Vaccine (4 - 2024-2 6 season) 2025 02/06/2022, 04/07/2021, 10/04/2020 DIABETES ANNUAL RETINAL EXAM 03/26/2025, 12/17/2023, 08/07/2023, Additional history exists DIABETES HBA1C Q 6 MONTHS 06/25/2025 12/23/2024 DTAP/TDAP/TD VACCINES (3 - T d or Tdap) 08/30/2030 08/30/2020, 11/07/2010, 03/23/2003, Additional history exists ZOSTER VACCINE Completed 12/09/2020, 08/30/2020 PNEUMOCOCCAL VACCINE 50+ YEARS Completed 0 02/06/2022, 03/17/2019, 03/22/2018, Additional history exists Medical Devices Implanted Type Area Animal Behaviorist Device Identifier Shelf Expiration Date Model / Serial / Lot Dev Closure Angioseal 6fr Vip [id number] - [id number] Implanted:Qty : 1 on 01/18/2025 by Kaden Mayer MD at [facility] Closure Device Right: Groin TERUMO- CARDIOVASC SYS [id number] 09/21/2025 [id number] / / [id number] Stent Vasc Innova [id number] 30 - [id number] Implanted:Qty : 1 on 01/18/2025 by Kaden Mayer MD at [facility] Stent Left: Superficial Femoral Artery [employer] [id number] 08/05/2029 [id number] / / [id number] Procedures Procedure Name Priority Date/Time Associated [...] 3:08 PM CDT Encounter for preadmission testing [place] DUP/COPY PATIENT'S RECORDS Routine 12/17/2024 11:39 AM CDT from Last 3 Months Results * TELEMETRY REPORT (01/20/2025 2:08 AM CDT) us Provider Scanning ECG ORDERABLES Final Result * (ABNORMAL) CBC WITH DIFFERENTIAL (01/19/2025 5:46 AM CDT) Only the most recent of2 resultswithin the time period is included. WBC 3.7(L) 4.8 - 10.8 K/uL 01/19/2025 6:14 AM T [facility] RBC 4.58(L) 4.60 - 6.20 M/uL 01/19/2025 6:14 AM [facility] HEMOGLOBIN 12.5(L) 14.0 - 18.0 g/dL 01/19/2025 6:14 AM [facility] HEMATOCRIT 39.0(L) 41.0 - 53.0 % 01/19/2025 6:14 AM [facility] MCV 85.2 84.0 - 103.0 fL 01/19/2025 6:14 AM [facility] MCH 27.3 27.0 - 34.0 pg 01/19/2025 6:14 AM [facility] MCHC 32.1 30.0 - 35.0 g/dL 01/19/2025 6:14 AM [facility] PLATELETS 133(L) 140 - 440 K/uL 01/19/2025 6:14 AM [facility] MPV 9.7 8.9 - 12.8 fL 01/19/2025 6:14 AM [facility] RDW 17.5(H) 11.0 - 14.5 % 01/19/2025 6:14 AM [facility] RDW-STDEV 54.1(H) 37.0 - 54.0 fL 01/19/2025 6:14 AM [facility] NEUTROPHILS 69 42 - 75 % 01/19/2025 6:14 AM [facility] LYMPHOCYTES 17(L) 24 - 44 % 01/19/2025 6:14 AM [facility] MONOCYTES 12(H) 2 - 10 % 01/19/2025 6:14 AM CDT [facility] EOSINOPHILS 2 0 - 7 % 01/19/2025 6:14 AM CDT [facility] BASOPHILS 1 0 - 1 % 01/19/2025 6:14 AM CDT [facility] IMMATURE GRANULOCYTES 0 0 - 2 % 01/19/2025 6:14 AM CDT [facility] NEUTROPHIL ABSOLUTE 2.58 2.00 - 8.00 K/uL 01/19/2025 6:14 AM CDT [facility] LYMPHOCYTE ABSOLUTE 0.63(L) 1.20 - 4.00 K/uL 01/19/2025 6:14 AM CDT [facility] MONOCYTE ABSOLUTE 0.43 0.10 - 0.60 K/uL 01/19/2025 6:14 AM CDT [facility] EOSINOPHIL ABSOLUTE 0.06 0.00 - 0.70 K/uL 01/19/2025 6:14 AM CDT [facility] BASOPHILS ABSOLUTE 0.03 0.00 - 0.20 K/uL 01/19/2025 6:14 AM CDT [facility] IMMATURE GRANULOCYTES ABSOLUTE 0.01 0.00 - 0.10 K/uL 01/19/2025 6:14 AM CDT [facility] SMEAR REVIEWED: NA - Not Applicable 01/19/2025 6:14 AM T [facility] Blood Venipuncture / Unknown 01/19/2025 5:46 AM CDT 01/19/2025 6:08 AM CDT us Kadne Mayer MD HEMATOLOGY ORDERABLES Final Re sult [facility] CLIA # [id number] [address] [place] [address] [place] [address] * (ABNORMAL) POC GLUCOSE (01/18/2025 3:58 PM CDT) Only the most recent of2 resultswithin the time period is included. GLUCOSE POC 108(H) 74 - 99 mg/dL 01/18/2025 3:58 PM CDT [facility] SPECIMEN SOURCE, GLUCOSE POC Capillary 01/18/2025 3:58 PM CDT [facility] Blood, whole 01/18/2025 3:58 PM CDT 01/18/2025 4:05 PM CDT us Kaden Mayer MD POINT OF CARE TESTING Final Re sult Performing Organization Address [facility] Co de Phone Number [facility] CLIA # [id number] [address] [id number] * IR FLUORO OR OTHER (01/18/2025 3:52 PM CDT) Narrative 01/18/2025 3:52 PM CDT Order Auto Finalized. Please see associated Operative Report/Progress Note/Procedure Note from the same date. us Kaden Mayer MD IR ORDERABLES Final Result * (ABNORMAL) POC ACTIVATED CLOTTING TIME (01/18/2025 3:30 PM CDT) Pathologist [facility] ACTIVATED CLOTTING TIME POC 285(H) 116 - 140 sec 01/18/2025 3:30 PM CDT [facility] Blood 01/18/2025 3:30 PM CDT 01/19/2025 6:51 PM CDT us Kaden Mayer MD POINT OF CARE TESTING Final Re sult Performing Organization Address [facility] Co de Phone Number [facility] CLIA # [id number] [address] [address] * VERIFICATION BLOOD GROUP (01/06/2025 3:35 PM CDT) Pathologist Ari ABO GROUP A 01/06/2025 6:11 PM CDT [facility] [place] RH (D) TYPE Positive 01/06/2025 6:11 PM CDT [facility] [place] Blood Venipuncture / Unknown 01/06/2025 3:35 PM CDT 01/06/2025 5:14 PM CDT us Kaden Mayer MD BLOOD BANK ORDERABLES Final Re sult Performing Organization Address [facility] Co de Phone Number [facility] [place] CLIA#[id number] [address] [place] [address], * RED BLOOD CELL ANTIGEN TYPE (01/06/2025 3:15 PM CDT) Pathologist Ari JKA RED BLOOD CELL ANTIGEN Negative 01/06/2025 11:36 PM CDT [facility] [place] E RED BLOOD CELL ANTIGEN Negative 01/06/2025 11:36 PM CDT [facility] [place] LITTLE C RED BLOOD CELL ANTIGEN Negative 01/06/2025 11:36 PM CDT [facility] [place] Blood Venipuncture / Unknown 01/06/2025 3:15 PM CDT 01/06/2025 5:14 PM CDT us Kaden Mayer MD BLOOD BANK ORDERABLES Edited R esult - Final Performing Organization Address City/[facility]/ZIP Co de Phone Number [facility] [place] CLIA#[id number] [address] [place] [address], * BLOOD BANK AB IDENT (01/06/2025 3:15 PM CDT) Pathologist Ari ANTIBODY #1 Anti-Jka 01/06/2025 11:45 PM CDT [facility] [place] ANTIBODY #2 Anti-c 01/06/2025 11:45 PM CDT [facility] [place] Blood Venipuncture / Unknown 01/06/2025 3:15 PM CDT 01/06/2025 5:14 PM CDT us Kaden Mayer MD BLOOD BANK ORDERABLES Final Re sult Performing Organization Address [facility] Co de Phone Number [facility] [employer] [facility] CLIA#[id number] [address] [place] [address], * (ABNORMAL) PROTIME-INR (01/06/2025 3:15 PM CDT) Pathologist [facility] PROTIME 15.1(H) 12.7 - 14.9 Seconds 01/06/2025 5:39 PM CDT [facility] INR 1.1 0.8 - 1.2 01/06/2025 5:39 PM CDT [facility] [employer] [facility] Blood Venipuncture / Unknown 01/06/2025 3:15 PM CDT 01/06/2025 5:21 PM CDT Narrative [facility] - 01/06/2025 5:39 PM CDT Expected Values for INR: DVT/PE Goal INR 2.5; range 2.0 - 3.0 Valve Replacement Tissue Goal INR 2.5; range 2.0 - 3.0 Valve Replacement Mechanical Goal INR 3.0; range 2.5 - 3.5 POST-IN Goal INR 2.5; range 2.0 - 3.0 or Goal INR 3.0; range 2.5 - 3.5 Atrial Fibrillation Goal INR 2.5; range 2.0 - 3.0 Ischemic Stroke Goal INR 2.5; range 2.0 - 3.0 us Kaden Mayer MD HEMATOLOGY ORDERABLES Final Re sult [facility] [employer] [facility] CLIA # [id number] [address] [place] [address] * TYPE AND SCREEN (01/06/2025 3:15 PM CDT) ABO GROUP A 01/06/2025 11:44 PM CDT [facility] [place] RH (D) TYPE Positive 01/06/2025 11:44 PM CDT [facility] [place] ANTIBODY SCREEN Positive 01/06/2025 11:44 PM CDT [facility] [place] Blood Venipuncture / Unknown 01/06/2025 3:15 PM CDT 01/06/2025 5:14 PM CDT Kaden Mayer MD BLOOD BANK ORDERABLES Edited R esult - Final [facility] [place] CLIA#[id number] [address] [place] [address], * (ABNORMAL) BASIC METABOLIC PANEL (01/06/2025 3:15 PM CDT) [facility] SODIUM 142 136 - 145 mmol/L 01/06/2025 5:41 PM CDT [facility] POTASSIUM 4.1 3.5 - 5.1 mmol/L 01/06/2025 5:41 PM CDT [facility] CHLORIDE 106 98 - 107 mmol/L 01/06/2025 5:41 PM CDT [facility] CO2 23 22 - 29 mmol/L 01/06/2025 5:41 PM CDT [facility] CALCIUM 8.9 8.8 - 10.2 mg/dL 01/06/2025 5:41 PM CDT [facility] BUN 15 8 - 23 mg/dL 01/06/2025 5:41 PM CDT [facility] CREATININE 1.04 0.67 - 1.17 mg/dL 01/06/2025 5:41 PM T [facility] Comment:The GFR result is no t clinically significant on patients <18 or >70 years of age. GLUCOSE 135(H) 74 - 99 mg/dL 01/06/2025 5:41 PM T [facility] GFR >60 mL/min/1.7 3 sq meter 01/06/2025 5:41 PM CDT [facility] Comment:eGFR calculated with 2020 CKD-EPI equation. Vegetarian diet, extremely high or low muscle mass, and may affect results. Cystatin C with Glomerular Filtration Rate is a suitable alternative for these patients. 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1955 Requested By: Order Number: [id number] Reading MD: Karla Francis Measurements Intervals [place] Rate: 91 P: 0 GA: 0 QRS: 35 QRSD: 126 T: 54 QT: 384 QTc: 472 Interpretive Statements Atrial fibrillation Right bundle branch block Possible Inferior infarct, age undetermined Abnormal ECG Electronically Signed On 01-06-2025 20:21:31 CDT by Karla Francis Procedure Note Karla Francis, - 01/06/[address] [address] Test Date: 2025-01-06 Pat Name: GABINO JONES Department: 12 Room: 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1955 Requested By: Order Number: [id number] Reading MD: Karla Francis Measurements Intervals [place] Rate: 91 P: 0 GA: 0 QRS: 35 QRSD: 126 T: 54 QT: 384 QTc: 472 Interpretive Statements Atrial fibrillation Right bundle branch block Possible Inferior infarct, age undetermined Abnormal ECG Electronically Signed On 01-06-2025 20:21:31 CDT by Karla Francis us Kaden Mayer MD ECG ORDERABLES Final Result INTERFACE SYSTEM Refer to clinic/hospital department * [place] DUP/COPY PATIENT'S RECORDS (12/17/2024 11:39 AM CDT) us Abstract Provider [place] - DENTAL Final Result from Last 3 Months Insurance MEDICARE PART A HOSPITAL ONLY ANTH DUAL ADVANTAGE HMO DSNP * Guarantor: [facility] Account Type Relation to Patient Date of Phone Billing Address Corporate Other DEFAULT ADDRESS [address] [employer] * Guarantor: [facility] Account Type Relation to Patient Date of Phone Billing Address Corporate Other DEFAULT ADDRESS [address] [employer] * Guarantor: [facility] Account Type Relation to Patient Date of Phone [facility] Address [facility] DEFAULT ADDRESS [address] [employer] Advance Directives For more information, please contact: [phone] * Full Code (Latest Code Status on File) Date Activated Date Inactivated Comments 09/05/2022 11:49 PM 09/07/2022 1:06 PM
[2025-03-01 12:45] VITALS: BP 166/74; PULSE 86; RESP 19; TEMP 36.7; O2SAT 93; BMI 29.2
--- OUTSIDE RECORDS SUMMARY | 2025-03-01 12:45 | XMS_ITS | Patient Health Record ---
Author Organization [facility] Address [address] [place] [address] Care Team Providers Care Debeaker Name Role Phone Aryan Taylor Unavailable [phone] Sameera Patel Unavailable [phone] Allergies No Known Allergies Results Component Value Reference Range Notes [facility] [employer] [place], [place] - [id number] Reviewed date:07/07/2024 02:24:04 PM Interpretation: Performing Lab: Notes/Report: Glucose 2+ Bili 1+ Ketones 0 Sp [place] 1.020 Blood 0 pH 6.0 Protein +- Urobili +- Nitrites 0 Leukocytes 0 Reason For Referral No Information Medications Medication SIG (Take, Route, Frequency, Duration) Notes Start Date End Date Status 2 ML digoxin 0.25 MG/ML Injection *Reorder from [facility] for eRx and Interaction Alerts* 01/30/2023 Active albuterol 0.417 MG/ML Inhalation Solution INTRAPULMONARY *Reorder from [facility] for eRx and Interaction Alerts* 01/30/2023 Active Loratadine 10 MG Oral Tablet ORAL *Reorder from [facility] for eRx and Interaction Alerts* 01/30/2023 Active Atorvastatin Calcium 10 MG Tablet Oral 01/30/2023 Active predniSONE 5 MG Oral Tablet ORAL *Reorder from [facility] for eRx and Interaction Alerts* 01/30/2023 Active 60 ACTUAT olodaterol 0.0025 MG/ACTUAT Inhalation [place] [Striverdi] INTRAPULMONARY *Reorder from [facility] for eRx and Interaction Alerts* 01/30/2023 Active aspirin 325 MG Delayed Release Oral Tablet ORAL *Reorder from [facility] for eRx and Interaction Alerts* 01/30/2023 Active Potassium Chloride 20 MEQ Powder for Oral Solution ORAL *Reorder from [facility] for eRx and Interaction Alerts* 01/30/2023 Active apixaban 5 MG Oral Tablet [Eliquis] ORAL *Reorder from [facility] for eRx and Interaction Alerts* 01/30/2023 Active Omeprazole Magnesium 20 MG Tablet Delayed Release Oral 01/30/2023 Active Nitroglycerin 0.4 MG Tablet Sublingual Sublingual 01/30/2023 Active Furosemide 40 MG Oral Tablet ORAL *Reorder from [facility] for eRx and Interaction Alerts* 01/30/2023 Active Abiraterone Acetate 250 MG Oral Tablet ORAL *Reorder from [facility] for eRx and Interaction Alerts* 01/30/2023 Active Docusate Sodium 100 MG Oral Tablet ORAL *Reorder from [facility] for eRx and Interaction Alerts* 01/30/2023 Active Calcium Citrate 1500 MG / Cholecalciferol 200 UNT Oral Tablet ORAL *Reorder from [facility] for eRx and Interaction Alerts* 09/24/2023 Active 60 ACTUAT tiotropium 0.0025 MG/ACTUAT Inhalation [place] [Spiriva] INTRAPULMONARY *Reorder from [facility] for eRx and Interaction Alerts* 01/30/2023 Active albuterol 0.833 MG/ML / ipratropium bromide 0.167 MG/ML Inhalation Solution INTRAPULMONARY *Reorder from [facility] for eRx and Interaction Alerts* 01/30/2023 Active Metoprolol Tartrate 75 MG Oral Tablet ORAL *Reorder from [facility] for eRx and Interaction Alerts* 01/30/2023 Active LORazepam 1 MG Oral Tablet ORAL *Reorder from [facility] for eRx and Interaction Alerts* 01/30/2023 Active [...] Problem Status W/U Status Risk Notes Problem nursing home (current) use of other agents affecting estrogen receptors and estrogen levels (Z79.818) Active confirmed Problem History of malignant neoplasm of prostate (924909677) Personal history of malignant neoplasm of prostate (Z85.46) Active confirmed Problem Urinary retention (365387101) Urinary retention (R33.9) Active confirmed Problem Bladder neck obstruction (966351378) Bladder neck obstruction (N32.0) Active confirmed Vital Signs Heart Rate 78 /min 07/07/2024 Temperature 98.68 degrees Fahrenheit 07/07/2024 Height-cm 177.80 cm 07/07/2024 Blood pressure diastolic 64 mm Hg 07/07/2024 Weight-kg 99.79 kg 07/07/2024 Height 70.00 in 07/07/2024 Blood pressure systolic 110 mm Hg 07/07/2024 Weight 220.0 lbs 07/07/2024 BMI 31.56 kg/m2 07/07/2024 Encounters Encounter Location Date Provider Diagnosis Formerly [facility] [address] [place] [address] 07/07/2024 Sameera Patel Personal history of malignant neoplasm of prostate Z85.46 ; 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 estrogen receptors and estrogen levels Z79.818 ; Urinary retention R33.9 ; Urinary urgency R39.15 and Frequency of micturition R35.0 Formerly [facility] [address] [place] [address] [place] [address] 03/12/2024 Aryan Taylor Formerly [facility] [address] [place] [address] [place] [address] 03/16/2024 Aryan Leggettsay Formerly [facility] [address] [place] [address] [place] [address] 03/16/2024 Aryan Taylor Personal history of malignant neoplasm of prostate Z85.46 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 estrogen receptors and estrogen levels Z79.818 Formerly [facility] [address] [place] [address] [place] [address] 05/19/2024 Aryan Taylor Formerly [facility] [address] [place] [address] [place] [address] 06/16/2024 Aryan Taylor nursing home (current) use of other agents affecting estrogen receptors and estrogen levels Z79.818 and Personal history of malignant neoplasm of prostate Z85.46 Formerly [facility] [address] [place] [address] Dr [place]tr[place] [address] [place] [address], [place] [address] 07/06/2024 Aryan Taylor Formerly [facility] [address] [place] [address] [place] [address] 07/07/2024 Aryan Taylor nursing home (current) use of other agents affecting estrogen receptors and estrogen levels Z79.818 and Personal history of malignant neoplasm of prostate Z85.46 Formerly [facility] [address] [place] [address] [place] [address] 10/02/2024 Aryan Taylor Assessments Encounter Date Diagnosis (ICD Code) Assessment Notes Treatment Notes Treatment Clinical Notes Section Notes 03/16/2024 Personal history of malignant neoplasm of prostate (ICD-10 - Z85.46) 06/16/2024 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 07/07/2024 Personal history of malignant neoplasm of prostate (ICD-10 - Z85.46) continue with current treatment plan, unless otherwise told. Continue seeing oncology if your treatment plan includes establishment with them. 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 estrogen receptors and estrogen levels (ICD-10 - Z79.818) 07/07/2024 Urinary retention (ICD-10 - R33.9) If [...] of prostate (ICD-10 - Z85.46) 07/07/2024 Urinary urgency (ICD-10 - R39.15) 07/07/2024 Frequency of micturition (ICD-10 - R35.0) Plan Of Treatment Pending Test Test Name Order Date Basic Metabolic Panel (BMP) 76473 2023 Basic Metabolic Panel (BMP) 16042 2024 PSA Diagnostic--[id number] 07/07/2024 Bone Densitometry-83297 07/07/2024 Bone Densitometry-08750 06/16/2024 Bone Densitometry-00750 03/16/2024 Insurance Providers Payer Name Payer Address Payer Phone Subscriber Number Group Number Insured Name Patient Relationship to Insured Coverage Start Date Coverage End Date [employer] [address] [place] [phone] [id number] [employer] Self - patient is the insured Medical (General) History Hospitalization History Reason Date(Month/Year) sars/rsv/pneumonia
--- NOTE | 2025-03-01 12:50 | XR_ITS ---
WS: [id number] XR chest 1V portable [id number] REASON FOR EXAM: [place] FINDINGS: Large areas of lucency in the upper lungs demonstrated by previous CT 2 represent significant bullous disease. Compared to the examination of 01/28/2025, there there appears to be increased reticular interstitial and groundglass opacities superimposed on chronic interstitial changes. The heart is enlarged with enlargement of the left atrium and moderate central pulmonary venous congestion. There is blunting of the left costophrenic and right costophrenic angles. XR/XR chest 1V portable [id number] IMPRESSION: Suspect superimposition of congestive heart failure on chronic lung disease.
--- NOTE | 2025-03-01 12:52 | W.ED.SOB ---
HPI - SOB/Dyspnea General: Chief Complaint: Shortness of Breath/Dyspnea Stated Complaint: Sob Time Seen by Provider: 03/01/25 12:48 History of Present Illness: HPI Narrative: 69-year-old man with a history of hypertension, hyperlipidemia, GERD, COPD, CHF, depression, anxiety, coronary artery disease, atrial fibrillation, chronic anticoagulation on Eliquis, chronic hypoxemic respiratory failure, diabetes mellitus, anemia, hypothyroidism, BPH, pulmonary fibrosis and constipation who presents to the emergency room with shortness of breath. [place] and [place] sent him to the emergency room for increasing shortness of breath. He was diagnosed with pneumonia a month ago. He has been sick since. He says the [facility] told him his lungs were full fluid. He is satting in the mid 90s on room air with no increased work of breathing on my exam. Coarse lung sounds with some scattered wheeze. No fevers. No altered mental status. No chest pain. No abdominal pain. No nausea or vomiting. Related Data Home Medications ?Medication ?Instructions ?Recorded ?Confirmed furosemide 40 mg tablet (Lasix) 40 mg PO QAM 03/28/21 03/01/25 potassium chloride 20 mEq 20 meq PO QAM 03/28/21 03/01/25 tablet,extended release tamsulosin 0.4 mg capsule (Flomax) 0.4 mg PO BID 02/25/23 03/01/25 loratadine 10 mg tablet 10 mg PO QAM 05/15/23 03/01/25 digoxin 250 mcg (0.25 mg) tablet 250 mcg PO QAM 08/04/23 03/01/25 nitroglycerin 0.4 mg sublingual 0.4 mg sublingual Q5M PRN Chest 08/04/23 03/01/25 tablet (Nitrostat) Pain calcium 600 mg (as 1 tab PO DAILY 07/09/24 03/01/25 carbonate)-vitamin D3 5 mcg (200 unit) tablet levothyroxine 125 mcg tablet 125 mcg PO QAM 07/09/24 03/01/25 fluticasone 100 mcg-salmeterol 50 1 inh inhalation BEDTIME 09/15/24 03/01/25 mcg/dose blistr powdr for inhalation (Advair Diskus) acetaminophen 650 mg 650 mg PO Q12H PRN Pain 12/11/24 03/01/25 tablet,extended release albuterol sulfate 2.5 mg/3 mL 2.5 mg inhalation Q6H PRN 01/28/25 03/01/25 (0.083 %) solution for nebulization Shortness Of Breath aspirin 81 mg tablet,delayed 81 mg PO DAILY 01/28/25 03/01/25 release atorvastatin 20 mg tablet 10 mg PO BEDTIME 01/28/25 03/01/25 cholecalciferol (vitamin D3) 50 50 mcg PO DAILY 01/28/25 03/01/25 mcg (2,000 unit) tablet (Vitamin D3) clopidogrel 75 mg tablet 75 mg PO DAILY 01/28/25 03/01/25 gabapentin 100 mg capsule 200 mg PO TID 01/28/25 03/01/25 hydrocodone 5 mg-acetaminophen 325 1 tab PO Q6H PRN Pain 01/28/25 03/01/25 mg tablet metoprolol tartrate 25 mg tablet 37.5 mg PO BID 01/28/25 03/01/25 sennosides 8.6 mg-docusate sodium 1 tab PO DAILY 01/28/25 03/01/25 50 mg tablet sertraline 100 mg tablet 100 mg PO QPM 01/28/25 03/01/25 tiotropium bromide 2.5 2 puff inhalation DAILY 01/28/25 03/01/25 mcg/actuation mist for inhalation (Spiriva Respimat) Previous Rx's ?Medication ?Instructions ?Recorded apixaban 5 mg tablet (Eliquis) 5 mg PO BID #60 tabs 10/16/19 albuterol sulfate 90 mcg/actuation 2 inh inhalation Q4H PRN shortness 07/27/22 aerosol inhaler of breath or wheezing #18 grams blood-glucose meter (Blood Glucose #1 ea 05/13/24 Monitoring kit) lancets #100 ea 05/13/24 pen needle, diabetic 32 gauge x #50 ea 05/13/2406/06 (BD Ultra-Fine Micro Pen Needle) diclofenac sodium 1 % topical gel 4 g topical QID PRN joint pain 08/24/24 #100 grams prochlorperazine maleate 10 mg 10 mg PO Q4H PRN Mild Nausea #30 08/25/24 tablet (Compazine) tabs insulin glargine 100 unit/mL (3 10 unit (0.1 mL) SUBCUT DAILY #15 09/14/24 mL) subcutaneous pen (Lantus mL Solostar U-100 Insulin) cyanocobalamin (vitamin B-12) 1,000 mcg PO DAILY #30 caps 12/11/24 1,000 mcg capsule empagliflozin 25 mg tablet 12.5 mg (1/2 x 25 mg) PO DAILY #30 12/11/24 tabs ergocalciferol (vitamin D2) 1,250 1,250 mcg PO .Weekly #30 caps 12/11/24 mcg (50,000 unit) capsule folic acid 1 mg tablet 1 mg PO DAILY #30 tabs 12/11/24 pantoprazole 40 mg tablet,delayed 40 mg PO DAILY #30 tabs 12/11/24 release doxycycline monohydrate 100 mg 100 mg PO BID 10 days #20 caps 03/01/25 capsule prednisone 20 mg tablet 60 mg (3 x 20 mg) PO DAILY #20 tabs 03/01/25 Allergies Allergy/AdvReac Type Severity Reaction Status Date / Time No Known Allergies Allergy Verified 01/25/25 11:15 Review of Systems Narrative: Constitutional symptoms: Negative except as documented in HPI. Skin symptoms: Negative except as documented in HPI. Eye symptoms: Negative except as documented in HPI. ENMT symptoms: Negative except as documented in HPI. Respiratory symptoms: Negative except as documented in HPI. Cardiovascular symptoms: Negative except as documented in HPI. Gastrointestinal symptoms: Negative except as documented in HPI. Genitourinary symptoms: Negative except as documented in HPI. Musculoskeletal symptoms: Negative except as documented in HPI. Neurologic symptoms: Negative except as documented in HPI. Psychiatric symptoms: Negative except as documented in HPI. Endocrine symptoms: Negative except as documented in HPI. PFS ED PFSH: Medical History (Updated 03/01/25 @ 14:57 by America Perez MD) Greater trochanteric bursitis of right hip Prostate cancer History of colon polyps Chronic anticoagulation eliquis, for afib Chronic respiratory failure with hypoxia Heart failure with preserved ejection fraction Coronary artery disease CHF (congestive heart failure) Last echocardiogram normal EF, grade 2/4 diastolic dysfunction October 2019 Hypertension Anemia Atrial fibrillation GERD (gastroesophageal reflux disease) Hypothyroidism Hyperlipidemia COPD (chronic obstructive pulmonary disease) Surgical History History of cataract surgery Left eye - 12/2022 H/O prostate biopsy S/P appendectomy S/P cholecystectomy History of colonoscopy (~04/2020) History of vasectomy History of knee surgery History of coronary artery bypass graft (03/2019) 4 [facility] Family History Father , IN HIS 50'S Lung disease tuberculosis Mother , AT AGE 63 CAD (coronary artery disease) Diabetes Hypertension Sister Cancer Denies family history of Clotting disorder Dementia Hyperlipidemia Psychiatric illness Chronic kidney disease (CKD) Suicide Anesthesia complication Bleeding disorder Stroke Social History Smoking and tobacco/nicotine status: never used tobacco/nicotine Quit status (tobacco/nicotine): has quit using Year quit tobacco: 2017 - PPD x 52 Years Alcohol intake: never Substance/Drug Use: never Lives independently: Yes Household members: none Marital status: Legally Current occupational status: employed and retired Do you think of yourself as: Straight/Heterosexual Current gender identity: Male Physical Exam Narrative: EXAM NARRATIVE: General: Alert, no acute distress. Skin: Warm, dry. Head: Normocephalic, atraumatic. Neck: Supple, trachea midline. Eye: Extraocular movements are intact. Ears, nose, mouth and throat: Oral mucosa moist. Cardiovascular: Regular rate and rhythm, Normal peripheral perfusion. Respiratory: some expiratory wheeze, mild increased wob, breath sounds are equal, Symmetrical chest wall expansion. Gastrointestinal: Soft, Nontender, Non distended Musculoskeletal: Normal ROM, no deformity. Neurological: Alert and oriented, No focal neurological deficit observed. Psychiatric: Cooperative, appropriate mood & affect. Course Vital Signs: Vital signs: Vital Signs Temperature 98.1 F 03/01/25 12:45 Pulse Rate 76 03/01/25 16:12 Respiratory Rate 22 H 03/01/25 16:12 Blood Pressure 151/79 03/01/25 14:20 Pulse Oximetry 94 03/01/25 16:12 Oxygen Delivery Me thod Room Air 03/01/25 16:12 MDM - SOB/Dyspnea Medical Decision Making Differential diagnosis for patient with shortness of breath includes but is not limited to and based on the above HPI, review of systems and physical exam: Pneumonia. Bronchitis. Asthma or COPD with acute exacerbation. Acute coronary syndrome / AK. Pulmonary embolism. Anxiety. Congestive heart failure. Viral infections including influenza and Covid-19. Atrial fibrillation. Anxiety. Pleural effusion. Pneumothorax. Orders placed to evaluate differential diagnosis based on the above differential, HPI and physical exam EKG: Time 1302. Rate 67. Atrial fibrillation with controlled rate, No ST-T changes, no ectopy, This was reviewed and interpreted by myself the ER physician at 1305 Chest x-ray possible superimposition of congestive heart failure on chronic lung disease. This was reviewed and interpreted by myself the emergency room physician. I also reviewed the radiology report. Lab Review: Laboratory results were reviewed and interpreted by myself the emergency room physician. No leukocytosis. No anemia. No renal failure. proBNP is on the low side of his usual. CT of the chest without contrast: No new areas of consolidation or pneumonia. Some worsening of the ground glass appearance but no large pleural effusions. No obvious acute process. This was reviewed and interpreted by myself the emergency room physician. I also reviewed the radiology report. I reviewed the patient's medical record. From [place] records that the patient brought with him from clinic: 69-year-old man with a history of hypertension, hyperlipidemia, GERD, COPD, CHF, depression, anxiety, coronary artery disease, atrial fibrillation, chronic anticoagulation on Eliquis, chronic hypoxemic respiratory failure on 2 L nasal cannula at home, diabetes mellitus, anemia, hypothyroidism, BPH, pulmonary fibrosis Reexamination: Patient has not required oxygen while he is been here. He is on oxygen at home. No increased work of breathing at this time. I discussed findings with him. He is comfortable going home on antibiotics and steroids. Assessment and plan: COPD with acute exacerbation Pulmonary fibrosis Chronic hypoxemic respiratory failure ?IV Solu-Medrol, IV Lasix in the emergency room. Breathing treatment. - Discharged home - Discussed plan with patient. Answered any questions. - Evaluation and treatment of this problem were appropriate in the emergency setting. Lab Data 03/01/25 13:19 03/01/25 13:19 Labs/Radiology: Radiology Impressions Chest X-Ray 03/01/25 12:50 IMPRESSION: Suspect superimposition of congestive heart failure on chronic lung disease. Chest CT 03/01/25 13:33 IMPRESSION: 1. No areas of dense consolidation or pneumonia. 2. Severe bullous emphysema. 3. Advanced honeycombing at the lung bases and changes of UIP. Superimposed emphysema also present. 4. Increase in groundglass attenuation throughout both lungs and greatest at the lung bases. Probably a component of air trapping or mild interstitial edema. 5. No pleural effusions. No pneumothorax. 6. Large hiatal hernia. 7. Prior CABG. Laboratory Results WBC 3.68 10^3/uL (3.29-11.43) 03/01/25 13:19 RBC 3.93 10^6/uL (3.85-5.65) 03/01/25 13:19 Hgb 11.00 g/dL (11.27-16.99) L 03/01/25 13:19 Hct 34.8 % (37-53) L 03/01/25 13:19 MCV 88.5 fl (82-101) 03/01/25 13:19 MCH 28.0 pg (27-33) 03/01/25 13:19 MCHC 31.6 g/dL (30-55) 03/01/25 13:19 RDW 17.3 % (12.1-15.1) H 03/01/25 13:19 Plt Count 169 10^3/cmm (157-399) 03/01/25 13:19 MPV 9.3 fL (7.4-10.4) 03/01/25 13:19 Neut % (Auto) 73.4 % 03/01/25 13:19 Lymph % (Auto) 14.1 % 03/01/25 13:19 [place] % (Auto) 8.4 % 03/01/25 13:19 Eos % (Auto) 3.5 % 03/01/25 13:19 Baso % (Auto) 0.3 % 03/01/25 13:19 Neut # (Auto) 2.70 10^3/uL (1.8-7.7) 03/01/25 13:19 Lymph # (Auto) 0.5 10^3/uL (0.8-4.8) L 03/01/25 13:19 [place] # (Auto) 0.3 10^3/uL (0.2-0.9) 03/01/25 13:19 Eos # (Auto) 0.1 10^3/uL (0.0-0.8) 03/01/25 13:19 Baso # (Auto) 0.0 10^3/uL (0.0-0.1) 03/01/25 13:19 Nucleated RBC % (auto) 0 % 03/01/25 13:19 Nucleated RBCs # 0.0 /100WBC 03/01/25 13:19 Sodium 142 mmol/L (136-145) 03/01/25 13:19 Potassium 3.9 mmol/L (3.5-5.1) 03/01/25 13:19 Chloride 106 mmol/L (98-107) 03/01/25 13:19 Carbon Dioxide 28 mmol/L (22-29) 03/01/25 13:19 Anion Gap 11.9 (5-19) 03/01/25 13:19 BUN 13 mg/dL (8-23) 03/01/25 13:19 Creatinine 0.7 mg/dL (0.7-1.2) 03/01/25 13:19 GFR Calculation 111.5 mL/min (90-130) 03/01/25 13:19 Glucose 133 mg/dL (65-115) H 03/01/25 13:19 Calculated Osmolality 296 mOsm/kg (285-295) H 03/01/25 13:19 Lactic Acid 1.0 mmol/L (0.5-2.2) 03/01/25 13:19 Calcium 8.6 mg/dL (8.5-10.5) 03/01/25 13:19 Total Bilirubin 0.5 mg/dL (0.15-1.2) 03/01/25 13:19 AST 9 U/L (0-40) 03/01/25 13:19 ALT 7 U/L (0-41) 03/01/25 13:19 Alkaline Phosphatase 77 U/L (40-130) 03/01/25 13:19 Troponin T Baseline 19 ng/L (0-15) H 03/01/25 13:19 C-Reactive Protein 24.8 mg/L (0.0-4.9) H 03/01/25 13:19 NT-Pro-B Natriuret Pep 4304 pg/mL (0-125) H 03/01/25 13:19 Total Protein 6.4 g/dL (6.6-8.7) L 03/01/25 13:19 Albumin 3.8 g/dL (3.5-5.2) 03/01/25 13:19 Globulin 2.6 g/dL (1.3-4.6) 03/01/25 13:19 Influenza A (PCR) Negative (Negative) 03/01/25 13:32 Influenza Type B (PCR) Negative (Negative) 03/01/25 13:32 RSV (PCR) Negative (Negative) 03/01/25 13:32 SARS-CoV-2 (PCR) Negative (Negative) 03/01/25 13:32 All radiology interpretation(s) finalized by discharge Discharge Plan Discharge Patient Disposition: Home Clinical Impression: COPD with acute exacerbation, Pulmonary fibrosis, Chronic hypoxemic respiratory failure Condition: Stable Prescriptions: New prednisone 20 mg tablet 60 mg PO DAILY Qty: 20 0RF Rx Instructions: 3 tabs (60 mg) x 3 days. 2 tabs (40 mg) x 3 days. 1 tab (20 mg) x 3 days. 1/2 tab (10 mg) x 4 days doxycycline monohydrate 100 mg capsule 100 mg PO BID 10 Days Qty: 20 0RF No Action diclofenac sodium 1 % gel 4 g topical QID PRN (Reason: joint pain) Qty: 100 3RF Rx Instructions: apply to single knee, ankle, foot; for foot includes sole/toes/top of foot insulin glargine [Lantus Solostar U-100 Insulin] 100 unit/mL (3 mL) insulin pen 10 unit SUBCUT DAILY Qty: 15 0RF acetaminophen 650 mg tablet extended release 650 mg PO Q12H PRN (Reason: Pain) empagliflozin 25 mg tablet 12.5 mg PO DAILY Qty: 30 0RF ergocalciferol (vitamin D2) 1,250 mcg (50,000 unit) capsule 1,250 mcg PO .Weekly Qty: 30 0RF pantoprazole 40 mg tablet,delayed release (DR/EC) 40 mg PO DAILY Qty: 30 0RF folic acid 1 mg tablet 1 mg PO DAILY Qty: 30 0RF cyanocobalamin (vitamin B-12) 1,000 mcg capsule 1,000 mcg PO DAILY Qty: 30 0RF prochlorperazine maleate [Compazine] 10 mg tablet 10 mg PO Q4H PRN (Reason: Mild Nausea) Qty: 30 1RF Eliquis 5 mg Tablet 5 mg PO BID Qty: 60 0RF potassium chloride 20 mEq Tablet Extended Release 20 meq PO QAM furosemide [Lasix] 40 mg tablet 40 mg PO QAM Flomax 0.4 mg capsule 0.4 mg PO BID albuterol sulfate 90 mcg/actuation HFA aerosol inhaler 2 inh INHALATION Q4H PRN (Reason: shortness of breath or wheezing) Qty: 18 0RF (DME) pen needle, diabetic [BD Ultra-Fine Micro Pen Needle] 32 gauge x 1/4 needle See Rx Instructions .ROUTE .MEDSUPPLY Qty: 50 0RF Rx Instructions: As directed (DME) lancets Misc See Rx Instructions .ROUTE .MEDSUPPLY Qty: 100 0RF Rx Instructions: As directed (DME) blood-glucose meter [Blood Glucose Monitoring] Kit See Rx Instructions .ROUTE .MEDSUPPLY Qty: 1 0RF Rx Instructions: As directed calcium carbonate-vitamin D3 600 mg-5 mcg (200 unit) Tablet 1 tab PO DAILY levothyroxine 125 mcg Tablet 125 mcg PO QAM fluticasone propion-salmeterol [Advair Diskus] 100-50 mcg/dose blister with device 1 inh inhalation BEDTIME atorvastatin 20 mg Tablet 10 mg PO BEDTIME albuterol sulfate 2.5 mg /3 mL (0.083 %) Solution For Nebulization 2.5 mg INHALATION Q6H PRN (Reason: Shortness Of Breath) hydrocodone-acetaminophen 5-325 mg Tablet 1 tab PO Q6H PRN (Reason: Pain) sertraline 100 mg Tablet 100 mg PO QPM clopidogrel 75 mg Tablet 75 mg PO DAILY aspirin 81 mg Tablet,Delayed Release (Dr/Ec) 81 mg PO DAILY gabapentin 100 mg Capsule 200 mg PO TID metoprolol tartrate 25 mg Tablet 37.5 mg PO BID cholecalciferol (vitamin D3) [Vitamin D3] 50 mcg (2,000 unit) Tablet 50 mcg PO DAILY Spiriva Respimat 2.5 mcg/actuation Mist 2 puff INHALATION DAILY sennosides-docusate sodium 8.6-50 mg tablet 1 tab PO DAILY loratadine 10 mg tablet 10 mg PO QAM nitroglycerin [Nitrostat] 0.4 mg Tablet, Sublingual 0.4 mg SUBLINGUAL Q5M PRN (Reason: Chest Pain) Rx Instructions: do not exceed 3 doses per episode digoxin 250 mcg (0.25 mg) tablet 250 mcg PO QAM Discharge Orders: Discharge ED (Routine); Ordered 03/01/25 Ordered By: America Perez Referrals: Isela Gipson FNP [Primary Care Provider, Nurse Practitioner] Discharge Diet: Usual diet Discharge Activity: Increase activity as tolerated Patient Instructions: Opioid Safety, Pain Management, Patient Portal & Elizabeth Instructions Activity Restrictions/Additional Instructions: Thank you for choosing [facility] for your healthcare needs today. You have been screened and evaluated and felt safe for discharge. Health conditions do change or evolve sometimes and as such it is important that you follow up with your Primary Doctor to be re checked, 3-5 days is a general good time frame for follow up. You are always welcome to return to the ED for re assessment if your symptoms are worsening or you have new concerns Print Language: Estonian 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 of Care Code ED Academic Advisement Director for Kevin Arceo
--- NOTE | 2025-03-01 13:02 | ECG_ITS ---
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 Measurements Intervals [place] Rate: 67 P: 0 CA: 0 QRS: 49 QRSD: 144 T: 34 QT: 404 QTc: 429 Interpretive Statements ATRIAL FIBRILLATION RIGHT BUNDLE BRANCH BLOCK [120+ ms QRS DURATION, UPRIGHT V1, 40+ ms S IN I/aVL/V4/V5/V6] Compared to ECG 01/29/2025 00:52:04 No significant changes Electronically Signed On 03-04-2025 08:49:02 CDT by Favio Ferguson M.D. [email or web address]
--- NOTE | 2025-03-01 13:33 | CT_ITS ---
WS: [id number] CT chest wo con [id number] HISTORY: abnormal chest xray TECHNIQUE: Axial imaging performed through the thorax. Coronal and sagittal reformats are submitted. All CT scans at [facility] use at least one of these dose optimization techniques: automated exposure control; mA and/or kV adjustment per patient size (includes targeted exams where dose is matched to clinical indication); or iterative reconstruction. CONTRAST: None DLP: 496.27 mGy.cm COMPARISON: 05/09/2024 Lungs and central airway: Marked pulmonary hyperexpansion with bullous emphysema. Large bulla in the upper lung rivera. Paraseptal emphysematous changes. Honeycombing noted at the lung bases. Mild hazy attenuation and groundglass attenuation greatest in the lower lung rivera. Component of air trapping. No areas of dense consolidation. Pleura: Mild pleural thickening posteriorly. No effusions. Heart and pericardium: Moderate cardiomegaly. Mediastinum and william: Small benign stable lymph nodes in the mediastinum and hilar regions. Vessels: Mild atherosclerotic change within the aorta. Extensive coronary artery calcifications. Prior CABG. Chest wall and lower neck: Prior CABG. Upper abdomen: No adrenal mass. Large hiatal hernia. Low-attenuation mass incompletely visualized in the RIGHT kidney. Cyst has been previously described in this location. Prior cholecystectomy. Osseous structures: No destructive process. CT/CT chest wo con [id number] IMPRESSION: 1. No areas of dense consolidation or pneumonia. 2. Severe bullous emphysema. 3. Advanced honeycombing at the lung bases and changes of UIP. Superimposed em physema also present. 4. Increase in groundglass attenuation throughout both lungs and greatest at t he lung bases. Probably a component of air trapping or mild interstitial edema. 5. No pleural effusions. No pneumothorax. 6. Large hiatal hernia. 7. Prior CABG.
[2025-03-01 13:48] LABS: Hematocrit 34.8 % (37-53); Hemoglobin 11.00 g/dL (11.27-16.99); Mean Corpuscular HGB Conc 31.6 g/dL (30-55); Mean Corpuscular Hemoglobin 28.0 pg (27-33); Mean Corpuscular Volume 88.5 fl (82-101); Nucleated Red Blood Cells % 0 %; Platelet Count 169 10^3/cmm (157-399); Red Blood Count 3.93 10^6/uL (3.85-5.65); White Blood Count 3.68 10^3/uL (3.29-11.43)
--- NOTE | 2025-03-01 14:02 | PC.PHAR ---
Pt works overnights so he took his pm medications this morning so he could go to bed, but ended up here.
[2025-03-01 14:06] LABS: Troponin(5th) Baseline 19 ng/L (0-15)
[2025-03-01 14:13] LABS: Lactic Sepsis W/Reflex 1.0 mmol/L (0.5-2.2)
[2025-03-01 14:15] LABS: Respiratory Syncytial Virus Ce NEGATIVE (Negative); SARS-CoV-2 PCR NEGATIVE (Negative)
[2025-03-01 14:18] LABS: Alanine Aminotransferase 7 U/L (0-41); Albumin Level 3.8 g/dL (3.5-5.2); Alkaline Phosphatase 77 U/L (40-130); Anion Gap 11.9 (5-19); Aspartate Amino Transferase 9 U/L (0-40); Blood Urea Nitrogen 13 mg/dL (8-23); Calcium 8.6 mg/dL (8.5-10.5); Carbon Dioxide 28 mmol/L (22-29); Chloride 106 mmol/L (98-107); Creatinine Clr Calc Pharmacy 98.2105; Globulin 2.6 g/dL (1.3-4.6); Glucose 133 mg/dL (65-115); NT Pro B Type Natriuretic Pept 4304 pg/mL (0-125); Osmolality Calculated 296 mOsm/kg (285-295); Potassium 3.9 mmol/L (3.5-5.1); Sodium 142 mmol/L (136-145); Total Protein 6.4 g/dL (6.6-8.7)
[2025-03-01 14:20] VITALS: BP 151/79; PULSE 64; RESP 16; O2SAT 97
--- NOTE | 2025-03-01 14:50 | ECG_ITS ---
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 Measurements Intervals [place] Rate: 74 P: 0 [place]: 0 QRS: 14 QRSD: 126 T: 47 QT: 385 QTc: 428 Interpretive Statements ATRIAL FIBRILLATION WITH ABERRANT CONDUCTION OR VENTRICULAR PREMATURE COMPLEXES RIGHT BUNDLE BRANCH BLOCK [120+ ms QRS DURATION, UPRIGHT V1, 40+ ms S IN I/aVL/V4/V5/V6] Compared to ECG 03/01/2025 13:02:02 Ventricular premature complex(es) now present Aberrant conduction of supraventricular beat(s) now present Electronically Signed On 03-04-2025 18:58:56 CDT by Mathew Sanchez M.D. [email or web address]
[2025-03-01] MEDS: methylPREDNISolone sod succ 125 mg/2 mL INJ IVP (15:37)
[2025-03-01] MEDS: FUROsemide 10 mg/mL SDV 4mL 40 MG IVP (15:37)
[2025-03-01 16:12] VITALS: PULSE 76; RESP 22; O2SAT 94
[2025-03-01 16:46] VITALS: BP 131/78; PULSE 89; RESP 16; O2SAT 91
== END 2025-03-01 16:45 | disposition home or self-care (01) ==
PROVIDERS: Emergency Provider Emergency Medicine; PCP Nurse Practitioner
DX: J44.1 Chronic obstructive pulmonary disease with (acute) exacerbation (principal); J84.10 Pulmonary fibrosis, unspecified; J96.11 Chronic respiratory failure with hypoxia; Z11.52 Encounter for screening for COVID-19; Z79.4 Long term (current) use of insulin; Z79.01 Long term (current) use of anticoagulants; Z79.82 Long term (current) use of aspirin; Z79.02 Long term (current) use of antithrombotics/antiplatelets; Z87.891 Personal history of nicotine dependence; I25.10 Atherosclerotic heart disease of native coronary artery without angina pectoris; I11.0 Hypertensive heart disease with heart failure; I50.30 Unspecified diastolic (congestive) heart failure; E78.5 Hyperlipidemia, unspecified; Z85.46 Personal history of malignant neoplasm of prostate
CPT/HCPCS: 36415; 71045; 71250; 80053; 83605; 83880; 84484; 85025; 86140; 87040; 87637; 93005; 94640; 96374; 96375; 99285; J1938; J2919; J9999

== ENCOUNTER → 2025-03-05 10:52 | Outpatient (BNVA) | payer OTHER, SELFPAY | PROVIDERS: PCP Nurse Practitioner; Visit Provider Internal Medicine Cardiovascular Disease | DX: I25.10 Atherosclerotic heart disease of native coronary artery without angina pectoris (principal); I10 Essential (primary) hypertension; I48.91 Unspecified atrial fibrillation; Z79.01 Long term (current) use of anticoagulants; Z79.82 Long term (current) use of aspirin; E78.5 Hyperlipidemia, unspecified; J44.1 Chronic obstructive pulmonary disease with (acute) exacerbation; I77.9 Disorder of arteries and arterioles, unspecified; Z95.1 Presence of aortocoronary bypass graft; Z87.891 Personal history of nicotine dependence | CPT/HCPCS: 99214 ==

== ENCOUNTER 2025-03-09 08:36 | Observation (INO) | payer OTHER, MEDICARE, SELFPAY ==
--- OUTSIDE RECORDS SUMMARY | 2024-05-20 09:10 | XMS_ITS ---
Author Organization [facility] Address [address] [place] [address] Care Team Providers Care Division Controller Name Role Phone Sameera Patel REASON FOR VISIT 3m f/u With BMP and bone density test, for possible Prolia., Encounters Encounter Location Date Provider Diagnosis [facility] [address] [place] [address] [address] [place] [address] 05/20/2024 Sameera Patel Plan Of Treatment No Information Progress Notes * SEA HODGEDOB:1955 (69 yo M)Acc No.[id number]:05/20/2024 Progress Notes Patient: SEA BELL CYRUS Provider: PATO Stover :1955 A ge:68 Y S ex:Male Date:05/20/2024 Address: [address], [id number] Subjective: * Chief Complaints: * 3 m f/u With BMP and bone density test, for possible Prolia., * Electronic signature of PATO Saldana on 03/09/2025 at 08:39 AM CDT Sign off status: Pending * Provider: PATO Stover Date: 07/21/2023 Generated for Halie flowers/Fiordaliza/Quinn on: 08:39 AM CDT
--- OUTSIDE RECORDS SUMMARY | 2024-10-05 06:10 | XMS_ITS ---
Author Organization [facility] Address [address] [place] [address] Care Team Providers Care Oral Surgery Physician Name Role Phone Sameera Patel Unavailable REASON FOR VISIT 3 month f/u with psa ua pvr and bone density Encounters Encounter Location Date Provider Diagnosis [facility] [address] [place] [address] [address] [place] [address] 10/05/2024 Sameera Patel Personal history of malignant neoplasm of prostate Z85.46 ; Bladder neck obstruction N32.0 ; care home (current) use of other agents affecting estrogen receptors and estrogen levels Z79.818 and Urinary retention R33.9 Assessments Encounter Date Diagnosis (ICD Code) Assessment Notes Treatment Notes Treatment Clinical Notes Section Notes 10/05/2024 Personal history of malignant neoplasm of prostate (ICD-10 - Z85.46) 10/05/2024 Bladder neck obstruction (ICD-10 - N32.0) 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 Shepherd about a prostatectomy, he denied being on androgen ablation, we requested records from oncology in [place] to determine what his plan of care was He was having issues with urgency and frequency, we placed him on Gemtesa for 4 weeks to see if that would help his issues He was supposed to have a bone density test Progress Notes * AYESHA SEA BRIDGESDOB:1955 (69 yo M)Acc No.[id number]:10/05/2024 Progress Notes Patient: SEA BELL Provider: PATO Stover :1955 A ge:69 Y S ex:Male Date:10/05/2024 Address:[place] [address], [facility] Subjective: * Chief Complaints: * 3 month f/u with psa ua pvr and bone density * HPI: Giovanny slade Note: 68-year-old male presents to the clinic for follow-up Last seen in July 2024 prostate cancer, Treated with EBRT +5 = 10 prostate cancer ADT in [place] with oncology PSA was less than 0.014 in 2023 Tamsulosin twice daily Bone scan performed at [facility] on 03/07/2024 show no osseous lesions suspicious for metastatic disease, soft tissue contour is normal, kidneys normal, degenerative type uptake in both shoulders and AC joints, degenerative uptake in both knees and ankles No evidence of osseous metastatic disease Patient went to talk to Dr. Shepherd about a prostatectomy, he denied being on androgen ablation, we requested records from oncology in [place] to determine what his plan of care [...] 10/05/2024 Generated for Halie flowers/Fiordaliza/Quinn on: 1 08:39 AM CDT
--- OUTSIDE RECORDS SUMMARY | 2024-10-05 06:10 | XMS_ITS ---
Author Organization [facility] Address [address] [place] [address] Care Team Providers Care Plastic Press Molder Name Role Phone Sameera Patel Unavailable REASON FOR VISIT 3 month f/u with psa ua pvr and bone density Encounters Encounter Location Date Provider Diagnosis [facility] [address] [place] [address] [address] [place] [address] 10/05/2024 Sameera Patel Personal history of malignant neoplasm of prostate Z85.46 ; Bladder neck obstruction N32.0 ; [facility] (current) use of other agents affecting estrogen receptors and estrogen levels Z79.818 and Urinary retention R33.9 Assessments Encounter Date Diagnosis (ICD Code) Assessment Notes Treatment Notes Treatment Clinical Notes Section Notes 10/05/2024 Personal history of malignant neoplasm of prostate (ICD-10 - Z85.46) 10/05/2024 Bladder neck obstruction (ICD-10 - N32.0) 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 Shepherd about a prostatectomy, he denied being on androgen ablation, we requested records from oncology in [place] to determine what his plan of care was He was having issues with urgency and frequency, we placed him on Gemtesa for 4 weeks to see if that would help his issues He was supposed to have a bone density test Progress Notes * AYESHA SEA BRIDGESDOB:1955 (69 yo M)Acc No.[id number]:10/05/2024 Progress Notes Patient: SEA BELL Provider: PATO Stover :1955 A ge:69 Y S ex:Male Date:10/05/2024 Address:[place] [address], [facility] Subjective: * Chief Complaints: * 3 month f/u with psa ua pvr and bone density * HPI: Giovanny slade Note: 68-year-old male presents to the clinic for follow-up Last seen in July 2024 prostate cancer, Treated with EBRT +5 = 10 prostate cancer ADT in [place] with oncology PSA was less than 0.014 in 2023 Tamsulosin twice daily Bone scan performed at [facility] on 03/07/2024 show no osseous lesions suspicious for metastatic disease, soft tissue contour is normal, kidneys normal, degenerative type uptake in both shoulders and AC joints, degenerative uptake in both knees and ankles No evidence of osseous metastatic disease Patient went to talk to Dr. Shepherd about a prostatectomy, he denied being on androgen ablation, we requested records from oncology in [place] to determine what his plan of care [...] * Electronic signature of PATO Saldana on 03/10/2025 at 07:18 AM CDT Sign off status: Pending * Provider: PATO Stover Date: 0 10/05/2024 Generated for Halie flowers/Fiordaliza/Quinn on: 1 07:18 AM CDT
--- OUTSIDE RECORDS SUMMARY | 2025-03-02 11:10 | XMS_ITS | Encounter Summary ---
Author Organization [facility] Address [address] [place] [address] Care Team Providers Care Slat Basket Top Maker Name Role Phone Unavailable Primary Care Provider Unavailabl e Reason for Visit * Reason Comments Follow Up * Eval and Treat (Routine) - Authorized Specialty Diagnoses / Procedures Referred By Contac t Referred To Contact Ophthalmology Diagnoses Type 2 diabetes mellitus with other diabetic ophthalmic complication Isela Gipson, ELEMENTARY SUPERVISOR [address] [place] [address] Phone: tel: fax: Hannah Powell MD [address] [address] Phone: tel: fax: Referral ID Status Reason Start Date Expiration Date V isits Requested Visits Authorized [id number] Authorized 03/02/2025 03/02/2026 12 12 Encounter Details Date Type Department Care Team (Latest Contact Info) Description 03/02/2025 11:10 AM CDT Office Visit [facility] Ophthalmology [place] [address] [address] Hannah Powell MD [address] [address] 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 male Chief Complaint Follow Up HPI Gabino Jones, a 69 y.o. male, presents for a(n) 3 month follow up for Hx. Macula On RD OD and Double Vision OD. Since the last visit, the patient states vision in OD is Decreased. Since the last visit, the patient states vision in OS is Stable. Patient states they are negative for pain/discomfort OU. Patient states they are positive for flashes OS - the pt states he has had occasional flashes in OS, for an unknown amount of time. Patient states they are positive for floaters OS - the pt states he has one floater in OS that is occasional and started 5 days ago. Patient states they are negative for veils, shadows, and curtains OU. Diabetic? YES Most recent BS: has not checked recently No results found for: HGBA1C , [id number] Is patient a tobacco user? No. Drops: None. Vitamins: None. The patient has no other concerns today. Last edited by Tim Sierra on 03/02/2025 11:57 AM. ROS Positive for: Eyes Negative for: Constitutional, Gastrointestinal, Neurological, Skin, Genitourinary, Musculoskeletal,HENT, Endocrine, Cardiovascular, Respiratory, Psychiatric, Allergic/Imm, Heme/Lymph Last edited by Tim Sierra on 03/02/2025 11:52 AM. Past Medical History: Diagnosis Date Atrial fibrillation (CMS/HCC) Congestive heart failure (CMS/HCC) COPD (chronic obstructive pulmonary disease) (CMS/HCC) Coronary artery disease angina Diabetes mellitus (CMS/HCC) Dyspnea Dyspnea on exertion Emphysema of lung (CMS/HCC) Essential hypertension Generalized anxiety disorder GERD (gastroesophageal reflux disease) Hyperlipidemia Hypertension Hypothyroidism Major depression Malignant neoplasm of prostate (CMS/HCC) Mixed hyperlipidemia Personal history of colonic polyps Temporomandibular disorder Thyroid disease Social History Tobacco Use Smoking Status Former Current packs/day: 0.00 Average packs/day: 5.0 packs/day for 52.0 years (260.0 ttl pk-yrs) Types: Cigarettes Start date: 05/12/1965 Quit date: 05/12/2017 Years since quittin.8 Passive exposure: Past Smokeless Tobacco Never Visual Acuity Right +/- Left +/- Distance sc: 20/100 20/70 -2 cc: ph sc: 20/40 20/30 ph cc: Near sc: cc: IOP Right Left Tonopen 11 9 Slit Lamp Exam Right Left Lids/Lashes Normal Normal Conjunctiva/Sclera White and quiet Continuous 10 nylon suture extending superior Cornea endo pigment, superior nylon suture (placed by Dr Reynoso) Clear Anterior Chamber Deep and quiet Deep and quiet Iris Dilated, Surgical iris Tramatic iris s/p Iris-pexy Lens ACIOL ACIOL Vitreous s/p PPV Posterior vitreous detachment Fundus Exam Right Left Disc Sharp Sharp margins Cup/Disk Ratio 0.4 0.6 Macula Flat Normal Vessels Normal Normal Periphery Flat Flat periphery without tears or detachments. Additional Fundus Comments Encounter Diagnoses Name Primary? 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 PLAN: Follow up with Dr Reynoso I reviewed the symptoms of retinal detachment (new photopsia, new floaters, shade in the visual field) with Vipin Jones in detail. I encouraged him to call our office right away with any new symptoms as described above. RETURN: Return for Call if condition worsens. I reviewed the documentation of the patient's history, examination, and encounter visit. I have verified and edited as necessary, the color technician and/or scribe's documentation of the patient's visit. Hannah Powell MD Procedures and Testing: OCT, Retina - OU - Both Eyes (74431) Optical Coherence Tomography ordered to evaluate the status of the macula: RIGHT EYE: Focal outer retinal loss. EZ/IZ disruption. Retinal thinning. Focal RPE irregularity. LEFT EYE: There is no intraretinal fluid or Subretinal fluid. A trace Epiretinal membrane is present EYE DROPS Medications Eye Drops: 2 Drop phenylephrine 2.5 % Route: Topical NDC: 60458-652-19, Lot: [id number] 2 Drop proparacaine 0.5 % Route: Topical NDC: 12333-774-68, Lot: [id number] 2 Drop tropicamide 1 % Route: Topical NDC: 30401-849-37, Lot: [id number] Notes Eye drop orders per protocol for Basic Leather Tooler Eye Exam (Dilated) 1 Drop proparacaine (OPHTHAINE) 0.5% ophthalmic solution prior to tonometry 1 Drop tropicamide (MYDRIACYL) 1% ophthalmic solution 1 Drop phenylephrine (AK-DILATE, MYDFRIN) 2.5% ophthalmic solution documented in this encounter Miscellaneous Notes * Patient Instructions - Hannah Powell MD - 03/02/2025 1:15 PM CDT Images from the original note were not included. Please remember: Your eyes have been dilated (your pupils have been made large) for today's examination. This dilation will usually last for three to five hours. During that time, you may have some blurring of your vision, and a significant amount of glare. We strongly recommend that you DO NOT DRIVE until the dilation of your pupils has resolved. You can expect that one or both of your pupils will be dilated at each of your examinations, and for that reason, we also recommend that you have a screw driver operator for each visit. Thanks, [facility] Retina Team [facility] Patient Instructions Dilated Retinal Exam: About This Test What is it? A dilated retinal exam is a test that lets your doctor see the inside of the back of your eye. To do this, your doctor uses a magnifying instrument called an ophthalmoscope and a light source. A testdone with an ophthalmoscope is called ophthalmoscopy. Why is this test done? A dilated retinal exam is done to look for eye problems and eye diseases. It also can be used to find other problems, such as head injuries or brain tumors. This exam is usually done as part of a regular eye exam. Other eye tests that may be done include vision testing and testing for glaucoma. What happens during the test? Your doctor will use eyedrops to widen (dilate) your pupils. This makes it easier to see the back of the eye. Your doctor may also use eyedrops to numb the surface of your eyes. It takes about 15 to 20 minutes to fully dilate the pupils. The dilating eyedrops may make your eyes sting and cause a medicine taste in your mouth. When your pupils are dilated, your doctor will shine a bright light into your eyes and examine them. Tell your doctor if you or anyone in your family has glaucoma and if you are allergic to any type of eyedrops. What happens after the test? Your vision will be blurry for several hours. You will probably be able to go home or back to your usual activities right away. But your eyes will be sensitive. Protect them from the sun by wearing sunglasses. Do not drive for several hours after your eyes have been dilated. When should you call for help? Watch closely for changes in your health, and be sure to contact your doctor if you have questions about the test. Follow-up care is a nettles part of your treatment and safety. Be sure to make and go to all appointments, and call your doctor if you are having problems. It's also a good idea to keep a list of the medicines you take. Ask your doctor when you can expect to have your test results. Where can you learn more? Go to www.Sajan in the Health Information search box. Enter A863 in the search box to learn more about Dilated Retinal Exam: About This Test. Last Revised: May 24, 2011 ?? [id number] [employer]. Care instructions adapted under license by [employer]. Madeleine disclaims any warranty or liability for your use of this information. This information is not intended to represent the ethical and baptist beliefs of [facility]. This care instruction is for use with your licensed healthcare professional. If you have questions about a medical condition or this instruction, always ask your healthcare professional. [employer] disclaims any warranty or liability for your use of this information. If you have any questions, a quick way to get answers is to use MySupportAssistant. Please go to [email or web address] and follow the easy instructions to get signed up. Then you can use MySupportAssistant to send questions and information directly to your physician and staff. No more worries about missing a return call, because the answer comes right back to you in your MySupportAssistant Inbox. You can use MySupportAssistant to ask questions, request refills, make payments and much more. It is also available right from your smartphone or other mobile device, so you can manage your healthcare wherever you are. documented in this encounter Plan of Treatment Upcoming Encounters Date Type Department Care Team (Latest Contact Info) Description 03/09/2025 3:15 PM CDT Appointment [facility] Pre Admission Testing [place] [address] [place] [address] 03/11/2025 9:08 AM CDT Hospital Encounter [facility] Operating Room [address] [place] [address] Kaden Mayer MD [address] [place] [address] Peripheral vascular disease, unspecified 03/11/2025 9:08 AM CDT - 03/11/2025 10:28 AM CDT Surgery [facility] Operating Room [address] [place] [address] Kaden Mayer MD [address] [facility] [address] [place] [address] FEMORAL ANGIOGRAPHY WITH INTERVENTION 04/14/2025 2:30 PM LIEUTENANT FIRE FIGHTER Ancillary Procedure [facility] V[facility] Lab and Vein [facility]- [address] [place] [address] Kaden Mayer MD [address] [place] [address] [place] [address] 04/14/2025 3:45 PM LIEUTENANT FIRE FIGHTER Office Visit 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 03/02/2025 12:02 PM CDT Scheduled Procedures Name Priority Associated Diagnoses Date/Ti me FEMORAL ANGIOGRAPHY WITH INTERVENTION Peripheral vascular disease, unspecified 03/11/2025 9:08 AM CDT documented as of this encounter Procedures Procedure Name Priority Date/Time Associated Diagnosis Comments OCT, RETINA - OU - BOTH EYES Routine 03/02/2025 12:39 PM CDT 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 EZ/IZ disruption. Retinal thinning. Focal RPE irregularity. LEFT EYE: There is no intraretinal fluid or Subretinal fluid. 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
--- OUTSIDE RECORDS SUMMARY | 2025-03-03 14:30 | XMS_ITS | Encounter Summary ---
Author Organization [facility] Address [address] [place] [address] Care Team Providers Care Cash Reconciliation Specialist Name Role Phone Unavailable Primary Care Provider Unavailabl e Reason for Visit * Radiology Services (Routine) - Closed Specialty Diagnoses / Procedures Referred By Contac t Referred To Contact Radiology Diagnoses PAD (peripheral artery disease) Procedures US DUPLEX ARTERIAL LEG LEFT Kaden Mayer MD [address] [facility] [address] [address] Phone: tel: fax: [facility] Vascular Lab and Vein Center- [address] [address] Phone: tel: fax: Referral ID Status Reason Start Date Expiration Date Visits Re quested Visits Authorized [id number] Closed 01/06/2025 02/06/2026 1 1 Encounter Details Date Type Department Care Team (Latest Contact Info) Description 03/03/2025 2:30 PM CDT Ancillary Procedure [facility]- [address] [address] Kaden Mayer MD [address] [address] PAD (peripheral artery disease) Social History Tobacco Use Types Packs/Day Years [...] on file documented as of this encounter Plan of Treatment Upcoming Encounters Date Type Department Care Team (Latest Contact Info) Description 03/09/2025 3:15 PM CDT Appointment [facility] Pre Admission Testing [address] [place] [address] 03/11/2025 9:08 AM CDT Hospital Encounter [facility] Operating Room [address] [place] [address] Kaden Mayer MD [address] [address] Peripheral vascular disease, unspecified 03/11/2025 9:08 AM CDT - 03/11/2025 10:28 AM CDT Surgery [facility] Operating Room [address] [place] [address] Kaden Mayer MD [address] [facility] [address] [place] [address] FEMORAL ANGIOGRAPHY WITH INTERVENTION 04/14/2025 2:30 PM TESTING AND REGULATING TECHNICIAN Ancillary Procedure [facility] Lab [facility]- [place] [address] [facility] [address] [place] [address] Kaden Mayer MD [address] [address] 04/14/2025 3:45 PM TESTING AND REGULATING TECHNICIAN Office Visit [facility] Vascular Surgery [place] [address] [address] Kaden Mayer MD [address] [facility] [address] [place] [address] Scheduled Procedures Name Priority Associated Diagnoses Date/Ti me FEMORAL ANGIOGRAPHY WITH INTERVENTION Peripheral vascular disease, unspecified 03/11/2025 9:08 AM CDT documented as of this encounter Procedures Procedure Name Priority Date/Time Associated Diagnosis Comments US DUPLEX ARTERIAL LEG LEFT Routine 03/03/2025 3:51 PM CDT PAD (peripheral artery disease) documented in this encounter Results * US DUPLEX ARTERIAL LEG LEFT (03/03/2025 3:51 PM CDT) Anatomical Region Laterality Modality Lower Extremity Ultrasound 03/03/2025 3:05 PM CDT Narrative 03/04/2025 2:48 PM CDT [facility]in [facility] [address] [address] Noninvasive Vascular Lab Limited Lower Extremity Arterial Duplex Study Patient: Gabino Jones Study ID: US DUPLEX ARTERI Gender: M : 1955 Age: 69 Room: Height: 162.6cm Weight: 92kg BSA: 2.08m^2 Pt status: Outpatient Study Date: 03/03/2025 Study Time: 03:05:58 PM BSA: 2.08m^2 Ordering: Kaden Mayer Interpreting:Kaden Mayer Leather Goods Ii Assembler: CDP Indications: V. History: Risk factors: Prior angiography/angioplasty. Labs, prior tests, procedures, and surgery: Peripheral stent. Performed left. 01/18/2025 Summary Impression: 1. Mild arterial insufficiency at rest, involving the left lower extremity. 2. Difficult to visualize left femoral artery stent 3. Moderate arterial insufficiency at rest involving right lower extremity Study data: Limited lower extremity arterial duplex study. Ankle-brachial index. Height: 162.6cm. Height: 64in. Weight: 92kg. Weight: 202.8lb. BMI: 34.8kg/m^2. BSA: 2.08m^2. Location: Vascular laboratory. Patient status: Outpatient. Study status: Routine. Procedure: A vascular evaluation was performed with the patient in the supine position. Imaged vessel(s): the left common femoral, left deep femoral, left femoral, left popliteal, left anterior tibial, left posterior tibial, and left dorsal pedal arteries. Arterial flow: - Left common femoral: Left common femoral 1.64m/sec Monophasic - Left deep femoral: Left deep femoral 4.51m/sec Biphasic - Left femoral proximal: Left femoral proximal 2.21m/sec Monophasic - Left femoral mid: Left femoral mid 1.7m/sec Monophasic - Left femoral distal: Left femoral distal 1.37m/sec Monophasic - Left popliteal proximal: Left popliteal proximal 0.7m/sec Monophasic - Left anterior tibial distal: Left anterior tibial distal 0.79m/sec Monophasic - Left posterior tibial distal: Left posterior tibial distal 0.65m/sec Monophasic Ankle brachial indices Baseline Baseline Rt PT: 99mm Hg Rt DP: 98mm Hg Rt PT: 0.60 Rt DP: 0.60 Lt PT: 130mm Hg Lt DP: 132mm Hg Lt PT: 0.79 Lt DP: 0.80 Brachial pressures: - Rt brachial pressure (sys): 164mm Hg - Max brachial pressure (sys): 164mm Hg [facility] is accredited with the Intersocietal Commission for the Accreditation of Vascular Laboratories (ICAVL) Prepared and Electronically Authenticated Kaden Mayer Confirmed 03/04/2025 14:48 Procedure Note Kaden Mayer MD - 03/04/2025 [facility] [address] [place] [address] Noninvasive Vascular Lab Limited Lower Extremity Arterial Duplex Study Patient: Gabino Jones Study ID: US DUPLEX ARTERI Gender: M : 1955 Age: 69 Room: Height: 162.6cm Weight: 92kg BSA: 2.08m^2 Pt status: Outpatient Study Date: 03/03/2025 Study Time: 03:05:58 PM BSA: 2.08m^2 Ordering: Kaden Mayer Interpreting:Kaden Mayer Leather Goods Ii Assembler: CDP Indications: V. History: Risk factors: Prior angiography/angioplasty. Labs, prior tests, procedures, and surgery: Peripheral stent. Performed left. 01/18/2025 Summary Impression: 1. Mild arterial insufficiency at rest, involving the left lowerextremity. 2. Difficult to visualize left femoral artery stent 3. Moderate arterial insufficiency at rest involving right lowerextremity Study data: Limited lower extremity arterial duplex study.Ankle-brachial index. Height: 162.6cm. Height: 64in. Weight: 92kg. Weight:202.8lb. BMI: 34.8kg/m^2. BSA: 2.08m^2. Location: Vascular laboratory.Patient status: Outpatient. Study status: Routine. Procedure: A vascular evaluation was performed with the patient in the supine position. Imaged vessel(s): the left common femoral, left deep femoral, left femoral,left popliteal, left anterior tibial, left posterior tibial, and left dorsalpedal arteries. Arterial flow: - Left common femoral: Left common femoral 1.64m/sec Monophasic - Left deep femoral: Left deep femoral 4.51m/sec Biphasic - Left femoral proximal: Left femoral proximal 2.21m/sec Monophasic - Left femoral mid: Left femoral mid 1.7m/sec Monophasic - Left femoral distal: Left femoral distal 1.37m/sec Monophasic - Left popliteal proximal: Left popliteal proximal 0.7m/sec Monophasic - Left anterior tibial distal: Left anterior tibial distal 0.79m/sec Monophasic - Left posterior tibial distal: Left posterior tibial distal 0.65m/sec Monophasic Ankle brachial indices Baseline Baseline Rt PT: 99mm Hg Rt DP: 98mmHg Rt PT: 0.60 Rt DP: 0.60 Lt PT: 130mm Hg Lt DP: 132mm Hg Lt PT: 0.79 LtDP: 0.80 Brachial pressures: - Rt brachial pressure (sys): 164mm Hg - Max brachial pressure (sys): 164mm Hg [facility] is accredited withthe Intersocietal Commission for the Accreditation of Vascular Laboratories (ICAVL) Prepared and Electronically Authenticated Kaden Mayer Confirmed 03/04/2025 14:48 Kaden Mayer MD ORDERABLES Final Result documented in this encounter Visit Diagnoses Diagnosis PAD (peripheral artery disease) Unspecified disorders of arteries and arterioles Peripheral vascular disease, unspecified documented in this encounter Additional Health Concerns Assessment Noted Time PHQ-9 Depression Total Score: 2 09/06/19 23 11:43 PM CDT documented as of this encounter
--- OUTSIDE RECORDS SUMMARY | 2025-03-03 15:45 | XMS_ITS | Encounter Summary ---
Author Organization [facility] Address [address] [place] [address] Care Team Providers Care Rickshaw Driver Name Role Phone Unavailable Primary Care Provider Unavailabl e Reason for Visit * Reason Comments Follow Up * Consult for Advice and Opinion (Routine) - Authorized Specialty Diagnoses / Procedures Referred By Contac t Referred To Contact Vascular Surgery Diagnoses Peripheral vascular disease, unspecified Karla Perez, HAND ALMOND BLANCHER [address] [place] [address] Phone: tel: fax: Kaden Mayer MD [address] [address] Phone: tel: fax: Referral ID Status Reason Start Date Expiration Date V isits Requested Visits Authorized [id number] Authorized 12/21/2024 06/21/2025 [id number] Encounter Details Date Type Department Care Team (Late st Contact Info) Description 03/03/2025 3:45 PM CDT Office Visit [facility] Vascular Surgery [address] [address] Kaden Mayer MD [address] [address] Encounter for pre-operative examination (Primary Dx) Social History Tobacco Use Types Packs/Day Years [...] on file documented as of this encounter Last Filed Vital Signs Vital Sign Reading Time Taken Comments Blood Pressure 156/72 03/03/2025 3:39 PM CDT Pulse 84 03/03/2025 3:39 PM CDT Temperature - - Respiratory Rate - - Oxygen Saturation 97% 03/03/2025 3:39 PM CDT Inhaled Oxygen Concentration - - Weight 92.5 kg (204 lb) 03/03/2025 3:39 PM CDT Height 177.8 cm (5' 10 ) 03/03/2025 3:39 PM CDT Body Mass Index 29.27 03/03/2025 3:39 PM CDT documented in this encounter Progress Notes * Kaden Mayer MD - 03/03/2025 3:45 PM CDT Images from the original note were not included. VASCULAR & ENDOVASCULAR SURGERY [place], [place] CLINIC NOTE PATIENT NAME: Gabino Jones : 1955; AGE: 69 y.o.; SEX: M PRIMARY CARE: No primary care provider on file. REFERRING PHYSICIAN: Kaden Mayer MD HISTORY OF PRESENT ILLNESS: Gabino Jones is a 69 y.o. male who presents today for scheduled follow up s/p LLE angiogram with SFA stent placement for treatment of claudication & rest pain. States symptoms in LLE are much improved. He continues to have similar symptoms in the RLE. FUNCTIONAL STATUS: Independently ambulatory without assistance PAST MEDICAL HISTORY: Past Medical History: Diagnosis Date Atrial fibrillation (CMS/HCC) Congestive heart failure COPD (chronic obstructive pulmonary disease) Coronary artery disease angina Diabetes mellitus Dyspnea Dyspnea on exertion Emphysema of lung Essential hypertension Generalized anxiety disorder GERD (gastroesophageal reflux disease) Hyperlipidemia Hypertension Hypothyroidism Major depression Malignant neoplasm of prostate (CMS/HCC) Mixed hyperlipidemia Personal history of colonic polyps Temporomandibular disorder Thyroid disease PAST SURGICAL HISTORY: Past Surgical History: Procedure Laterality Date [facility] ANGIOGRAPHY EXTREMITY UNILATERAL RS&I Left 01/18/2025 FEMORAL ANGIOGRAPHY WITH INTERVENTION performed by Kaden Mayer MD at [facility] MAIN OR HX APPENDECTOMY 2020 HX CHOLECYSTECTOMY 03/21/2019 HX COLONOSCOPY 06/2021 Polypectomy x3 (Dr. Choi, [place]) HX CORONARY ARTERY BYPASS GRAFT HX KNEE REPLACEMENT HX KNEE REPLACEMENT Left HX PTCA HX RETINAL DETACHMENT REPAIR Right 07/11/2023 RETINAL DETACHMENT REPAIR 25 GA performed by Hannah Powell MD at [facility] [place] INJ SUBSTITUTE PARS PLANA/LIMBL W/WO ASPIR SPX Right 07/11/2023 EYE AIR FLUID GAS EXCHANGE performed by Hannah Powell MD at [facility] [place] OPEN/PERQ PLACEMENT INTRAVASCULAR STENT INITIAL Left 01/18/2025 VASCULAR STENT INSERTION ARTERIAL performed by Kaden Mayer MD at [facility] [place] VITRECTOMY MCHNL PARS PLNA FOCAL ENDOLASER PC Right 07/11/2023 PARS PLANA VITRECTOMY WITH LASER performed by Hannah Powell MD at [facility] FAMILY HISTORY: Family History Problem Relation Name Age of Onset Other Father Tuberculosis Heart Disease Mother Colon Cancer Neg Hx CURRENT MEDICATIONS: Current Outpatient Medications on File Prior to Visit Medication Sig Dispense Refill aspirin (ECOTRIN EC) 81 mg Tablet, Delayed Release (E.C.) Take 1 Tablet (81 mg) by mouth daily. 90 Tablet 3 clopidogreL (PLAVIX) 75 mg Tablet Take 1 Tablet (75 mg) by mouth daily. 90 Tablet 3 HYDROcodone-acetaminophen (NORCO) 5-325 mg tablet Take 1 Tablet by mouth every 6 hours as needed for Pain, Moderate. Max Daily Amount: 4 Tablets 10 Tablet 0 calcium as CARBONATE-vitamin D3 (CALCIUM 500+D) 500 mg-5 mcg (200 unit) tablet Take 1 Tablet by mouth daily. FLUTICASONE PROPION-SALMETEROL INHALATION Take by inhalation. furosemide (LASIX) 40 mg tablet Take 40 mg by mouth daily. gabapentin (NEURONTIN) 300 mg capsule Take 300 mg by mouth. insulin glargine (LANTUS) 100 unit/mL pen syringe Inject 10 Units by subcutaneous injection daily with breakfast. levothyroxine 125 mcg tablet Take 125 mcg by mouth daily in the morning. metoprolol tartrate (LOPRESSOR) 100 mg tablet Take 100 mg by mouth 2 times daily. dorzolamide-timoloL (COSOPT) 22.3-6.8 mg/mL solution Administer 1 Drop in right eye 2 times daily. 10 mL 1 omeprazole (PriLOSEC) 40 mg Capsule, Delayed Release(E.C.) Take 40 mg by mouth daily. loratadine (CLARITIN) 10 mg tablet 10 mg. apixaban (ELIQUIS) 5 mg tablet Take 5 mg by mouth 2 times daily. potassium chloride (K-TAB) 20 mEq Extended Release tablet Take 20 mEq by mouth daily. tiotropium (SPIRIVA RESPIMAT) 2.5 mcg/actuation Mist Take by inhalation daily. digoxin (LANOXIN) 250 mcg (0.25 mg) tablet Take 250 mcg by mouth daily. albuterol sulfate HFA 90 mcg/actuation aerosol inhaler Take 2 Puffs by inhalation every 6 hours as needed for Shortness of Breath. nitroglycerin 0.[address] 0.4 mg under tongue every 5 minutes as needed for Chest Pain. prochlorperazine maleate 10 mg tablet Take 10 mg by mouth every 6 hours as needed for Nausea/Emesis. tamsulosin 0.4 mg capsule Take 0.4 mg by mouth daily. No current facility-administered medications on file prior to visit. ALLERGIES: No Known Allergies SOCIAL HISTORY: Social History Socioeconomic History Marital status: Spouse name: Not on file Number of children: 8 Years of education: 10 Highest education level: GED or equivalent Occupational History Not on file Tobacco Use Smoking status: Former Current packs/day: 0.00 Average packs/day: 5.0 packs/day for 52.0 years (260.0 ttl pk-yrs) Types: Cigarettes Start date: 05/12/1965 Quit date: 05/12/2017 Years since quittin.8 Passive exposure: Past Smokeless tobacco: Never Vaping Use Vaping status: Never Used Substance and Sexual Activity Alcohol use: Never Drug use: Never Sexual activity: Not on file Other Topics Concern Not on file Social History Narrative Merged History Encounter Health-Related Social Needs Food Insecurity: Not on file (01/06/2025) Transportation Needs: No Transportation Needs (01/06/2025) Transportation Needs Patient needs follow up regarding:: 1 Domestic Concerns: Not At Risk (01/18/2025) Feeling Safe Patient has indicated abuse: : No Housing Stability: Low Risk (08/07/2023) Housing Stability Patient needs follow up regarding:: Not on file REVIEW OF SYSTEMS: A complete review of systems was obtained, & negative except for those mentioned in the HPI above VITAL SIGNS: BP (!) 156/72 (BP Location: Left arm, Patient Position (BP): Sitting, BP Cuff Size: Adult) Pulse 84 Ht 5' 10 (1.778 m) Wt 92.5 kg (204 lb) SpO2 97% BMI 29.27 kg/m?? PHYSICAL EXAM: Constitutional: Well nourished, no signs of distress Neurologic: Alert & oriented to person/place/time, mental status normal HENT: Non icteric sclerae, Normocephalic and atraumatic. Extraocular motor intact. Lymphadenopathy: No cervical, supraclavicular or axillary adenopathy Cardiovascular: Normal rate, regular rhythm Pulmonary/Chest: No respiratory distress. Non-labored work of breathing Abdominal: Soft. No abdominal distension or tenderness. Musculoskeletal: Normal range of motion. Extremities: No edema or cyanosis LABORATORY: I personally reviewed & assessed the most recent labs available for this patient - see assessment below IMAGING & DIAGNOSTIC EVALUATION: I personally reviewed & assessed the imaging & vascular lab studies relevant to today's visit for this patient - see assessment below ASSESSMENT & PLAN: Gabino Jones is presenting 6 weeks s/p LLE angiogram with SFA stent for treatment of claudication & rest pain. YULIA has increased to 0.85 from 0.6 pre procedure. Symptoms in LLE largely resolved. He continues to have RLE claudication & rest pain w/YULIA of 0.5. - RLE angiogram via L WHISKEY REGAUGER access - Hold Eliquis 2 days prior to procedure Cardiovascular risk factor modification was assessed & discussed as outlined below: Hypertension Systolic goal < 140, diastolic goal < 90. Hyperlipidemia LDL goal < 70. Continue high intensity statin & Aspirin Diabetes Goal A1c < 7.0. none on file CAD/CHF CABG in 2017 - no issues since then. No chest pains CKD/ESRD GFR > 60 COPD 2L O2 baseline Tobacco Use Quit in 2017 Other: A-fib on Eliquis Signed: Kaden Mayer DO, SANDI Vascular & Endovascular Surgery [facility] documented in this encounter Plan of Treatment Scheduled Orders Name Type Priority Associated Diagnoses Orde r Schedule BASIC METABOLIC PANEL Lab Routine Encounter for pre-operative examination Expected: 03/03/2025 (Approximate), Expires: 04/02/2025 CBC WITH DIFFERENTIAL Lab Routine Encounter for pre-operative examination Expected: 03/03/2025 (Approximate), Expires: 04/02/2025 TYPE AND SCREEN Blood Bank Routine Encounter for pre-operative examination Expected: 03/11/2025, Expires: 03/03/2026 PROTIME-INR Lab Stat Encounter for pre-operative examination Expected: 03/11/2025 (Approximate), Expires: 03/03/2026 EKG 12-LEAD ECG Stat Encounter for pre-operative examination Ordered: 03/03/2025 Scheduled Procedures Name Priority Associated Diagnoses Date/Ti me FEMORAL ANGIOGRAPHY WITH INTERVENTION Peripheral vascular disease, unspecified 03/11/2025 9:08 AM CDT documented as of this encounter Visit Diagnoses Diagnosis Encounter for pre-operative examination- Primary documented in this encounter Additional Health Concerns Assessment Noted Time PHQ-9 Depression Total Score: 2 09/06/19 23 11:43 PM CDT documented as of this encounter
--- OUTSIDE RECORDS SUMMARY | 2025-03-03 15:45 | XMS_ITS | Encounter Summary ---
Author Organization [facility] Address [address] [place] [address] Care Team Providers Care Heel Splitter Name Role Phone Unavailable Primary Care Provider Unavailabl e Reason for Visit * Reason Comments Follow Up * Consult for Advice and Opinion (Routine) - Authorized Specialty Diagnoses / Procedures Referred By Contac t Referred To Contact Vascular Surgery Diagnoses Peripheral vascular disease, unspecified Karla Perez, SALES ORDER SPECIALIST [address] [place] [address] Phone: tel: fax: Kaden Mayer MD [address] [address] Phone: tel: fax: Referral ID Status Reason Start Date Expiration Date V isits Requested Visits Authorized [id number] Authorized 12/21/2024 06/21/2025 [id number] Encounter Details Date Type Department Care Team (Late st Contact Info) Description 03/03/2025 3:45 PM CDT Office Visit [facility] Vascular Surgery [address] [address] Kaden Mayer MD [address] [phone] Encounter for pre-operative examination (Primary [...] were not included. VASCULAR & ENDOVASCULAR SURGERY [place], [place] CLINIC NOTE PATIENT NAME: Gabino Jones [...] HISTORY: Past Surgical History: Procedure Laterality Date [facility] ANGIOGRAPHY EXTREMITY UNILATERAL RS&I Left 01/18/2025 FEMORAL ANGIOGRAPHY WITH INTERVENTION performed by Kaden Mayer MD at [facility] MAIN OR HX APPENDECTOMY 2020 HX CHOLECYSTECTOMY 03/21/2019 HX COLONOSCOPY 06/2021 Polypectomy x3 (Dr. Choi, [place]) HX CORONARY ARTERY BYPASS GRAFT HX KNEE REPLACEMENT HX KNEE REPLACEMENT Left HX PTCA HX RETINAL DETACHMENT REPAIR Right 07/11/2023 RETINAL DETACHMENT REPAIR 25 GA performed by Hannah Powell MD at [facility] [place] INJ SUBSTITUTE PARS PLANA/LIMBL W/WO ASPIR SPX Right 07/11/2023 EYE AIR FLUID GAS EXCHANGE performed by Hannah Powell MD at [facility] [place] OPEN/PERQ PLACEMENT INTRAVASCULAR STENT INITIAL Left 01/18/2025 VASCULAR STENT INSERTION ARTERIAL performed by Kaden Mayer MD at [facility] [place] VITRECTOMY MCHNL PARS PLNA FOCAL ENDOLASER PC Right 07/11/2023 PARS PLANA VITRECTOMY WITH LASER performed by Hannah Powell MD at [facility] FAMILY HISTORY: Family History Problem Relation Name [...] of 0.5. - RLE angiogram via L [facility] DIRECT[facility] [employer] ADMISSIONS access - Hold Eliquis 2 days prior [...] A-fib on Eliquis Signed: Kaden Mayer DO, RPJOHNATHAN Vascular & Endovascular Surgery [facility] documented in this encounter Plan of Treatment Upcoming Encounters Date Type Department Care Team (Latest Contact Info) Description 03/09/2025 3:15 PM CDT Appointment [facility] Pre Admission Testing [place] [address] [place] [phone] 03/11/2025 9:08 AM CDT Hospital Encounter [facility] Operating Room [address] [place] [address] Kaden Mayer MD [address] [place] [phone] Peripheral vascular disease, unspecified 03/11/2025 9:08 AM CDT - 03/11/2025 10:28 AM CDT Surgery [facility] Operating Room [facility] [place] [address] Kaden Mayer MD [address] [place] [phone] FEMORAL ANGIOGRAPHY WITH INTERVENTION 04/14/2025 2:30 PM CALENDER MACHINE OPERATOR HELPER Ancillary Procedure [facility] Vascular Lab and Vein Center- [address] [place] [phone] Kaden Mayer MD [address] [place] [phone] 04/14/2025 3:45 PM CALENDER MACHINE OPERATOR HELPER Office Visit [facility] Vascular Surgery [address] [address] Kaden Mayer MD [address] [place] [phone] Scheduled Orders Name Type Priority Associated Diagnoses [...] Diagnoses Diagnosis Encounter for pre-operative examination- Primary Peripheral vascular disease, unspecified documented in this encounter Additional Health Concerns Assessment Noted Time PHQ-9 Depression Total Score: 2 09/06/19 23 11:43 PM CDT documented as of this encounter
[2025-03-09] VITALS (10 sets, daily range): BP systolic 106–137; BP diastolic 46–70; PULSE 66–113; RESP 16–20; TEMP 36.7–37.4; O2SAT 90–96; BMI 28.8
--- OUTSIDE RECORDS SUMMARY | 2025-03-09 08:39 | XMS_ITS | Encounter Summary ---
Author Organization [facility] Address [address] [place] [address] Care Team Providers Care Floating Labor Gang Supervisor Name Role Phone Unavailable Primary Care Provider Unavailabl e Reason for Visit * Reason Onset Date Comments Surgery Talk 03/04/2025 Encounter Details Date Type Department Care Team (Late st Contact Info) Description 03/04/2025 Telephone [facility] Vascular Surgery [place] [address] [place] [address] Kaden Mayer MD [address] [place] [address] Surgery Talk Social History Tobacco Use Types Packs/Day Years [...] encounter Miscellaneous Notes * Telephone Encounter - Leann Grimes - 03/04/2025 9:44 AM CDT Tiara RN spoke to patient and scheduled surgery for 03.11.25 arrival [address] Mayer documented in this encounter Plan of Treatment Upcoming Encounters Date Type Department Care Team (Latest Contact Info) Description 03/09/2025 3:15 PM CDT Appointment [facility] Pre Admission Testing [address] [place] [address] 03/11/2025 9:08 AM CDT Hospital Encounter [facility] Operating Room [address] [place] [address] Kaden Mayer MD [address] [place] [phone] Peripheral vascular disease, unspecified 03/11/2025 9:08 AM CDT - 03/11/2025 10:28 AM CDT Surgery [facility] Operating Room [facility] [place] [address] Kaden Mayer MD [address] [place] [phone] FEMORAL ANGIOGRAPHY WITH INTERVENTION 04/14/2025 2:30 PM HEMATOLOGY NURSE EDUCATOR Ancillary Procedure [facility] Vascular Lab and Vein Center- [address] [phone] Kaden Mayer MD [address] [place] [phone] 04/14/2025 3:45 PM HEMATOLOGY NURSE EDUCATOR Office Visit [facility] Vascular Surgery [address] [address] Kaden Mayer MD [address] [place] [phone] Scheduled Procedures Name Priority Associated Diagnoses Date/Ti me FEMORAL ANGIOGRAPHY WITH INTERVENTION Peripheral vascular disease, unspecified 03/11/2025 9:08 AM CDT documented as of this encounter Goals Goal Patient Goal Type Associated Problems Recent Progress Patient-Stated? Author Autogenerat ed Goal Care Plan Autogenerated Problem No Leann Grimes documented as of this encounter Visit Diagnoses Not on filedocumented in this encounter Additional Health Concerns Active Problems Noted Date Diagnosed Date Autogenerated Problem 03/04/2025 Assessment Noted Time PHQ-9 Depression Total Score: 2 09/06/19 23 11:43 PM CDT documented as of this encounter
--- OUTSIDE RECORDS SUMMARY | 2025-03-09 08:39 | XMS_ITS | Encounter Summary ---
Author Organization [facility] Address [address] [place] [address] Care Team Providers Care Custodian Blood Bank Name Role Phone Unavailable Primary Care Provider Unavailabl e Reason for Referral * Radiology Services (Routine) - Open Specialty Diagnoses / Procedures Referred By Contac t Referred To Contact Diagnoses PAD (peripheral artery disease) Procedures US DUPLEX ARTERIAL LEG RIGHT Kaden Mayer MD [address] [address] Phone: tel: fax: Referral ID Status Reason Start Date Expiration Date Visits Re quested Visits Authorized [id number] Open 03/04/2025 04/04/2026 1 1 Reason for Visit * Reason Onset Date Comments Follow Up 03/04/2025 Encounter Details Date Type Department Care Team (Late st Contact Info) Description 03/04/2025 Telephone [facility] Vascular Surgery [address] [facility] [address] [address] Kaden Mayer MD [address] [phone] Follow Up Social History Tobacco Use Types Packs/Day Years [...] encounter Miscellaneous Notes * Telephone Encounter - Tiara Sutton RN - 03/04/2025 8:39 AM CDT Patient agreeable to plan for hospitality room night prior to DOS + preadmission lab work. Hospitality form faxed. Labs ordered. Preadmission appointment scheduled. documented in this encounter Plan of Treatment Upcoming Encounters Date Type Department Care Team (Latest Contact Info) Description 03/09/2025 3:15 PM CDT Appointment [facility] Pre Admission Testing [address] [phone] 03/11/2025 9:08 AM CDT Hospital Encounter [facility] Operating Room [address] [place] [phone] Kadne Mayer MD [address] [facility] [address] [place] [phone] Peripheral vascular disease, unspecified 03/11/2025 9:08 AM CDT - 03/11/2025 10:28 AM CDT Surgery [facility] Operating Room [address] [place] [address] Kaden Mayer MD [address] [facility] [address] [place] [address] FEMORAL ANGIOGRAPHY WITH INTERVENTION 04/14/2025 2:30 PM SAND CONDITIONER MACHINE Ancillary Procedure [facility] Vascular Lab and Vein Center- [place] [address] [place] [address] Kaden Mayer MD [address] [place] [address] 04/14/2025 3:45 PM SAND CONDITIONER MACHINE Office Visit [facility] Vascular Surgery [address] [place] [address] Kaden Mayer MD [address] [facility] [address] [place] [address] Scheduled Orders Name Type Priority Associated Diagnoses Orde r Schedule US DUPLEX ARTERIAL LEG RIGHT Imaging Routine PAD (peripheral artery disease) Expected: 03/04/2026 (Approximate), Expires: 04/08/2026 Scheduled Procedures Name Priority Associated Diagnoses Date/Ti me FEMORAL ANGIOGRAPHY WITH INTERVENTION Peripheral vascular disease, unspecified 03/11/2025 9:08 AM CDT documented as of this encounter Goals Goal Patient Goal Type Associated Problems Recent Progress Patient-Stated? Author Autogenerat ed Goal Care Plan Autogenerated Problem No Leann Grimes documented as of this encounter Visit Diagnoses Diagnosis PAD (peripheral artery disease)- Primary Unspecified disorders of arteries and arterioles Peripheral vascular disease, unspecified documented in this encounter Additional Health Concerns Active Problems Noted Date Diagnosed Date Autogenerated Problem 03/04/2025 Assessment Noted Time PHQ-9 Depression Total Score: 2 09/06/19 23 11:43 PM CDT documented as of this encounter
--- OUTSIDE RECORDS SUMMARY | 2025-03-09 08:39 | XMS_ITS | Clinical Summary ---
Author Organization Madeleine Jarrett Address [address] [facility] [address] [place] [address] Phone Care Team Providers Care Stamp Pad Finisher Name Role Phone Unavailable Primary Care Provider [...] Encounters Date Type Department Care Team Description 03/04/2025 Telephone [facility] Vascular Surgery [address] [phone] Kaden Mayer MD Surgery Talk 03/04/2025 Telephone [facility] Vascular Surgery [address] [phone] Kaden Mayer MD Follow Up 03/03/2025 3:45 PM CDT Office Visit [facility] Vascular Surgery [address] [phone] Kaden Mayer MD Encounter for pre-operative examination (Primary Dx) 03/03/2025 2:30 PM CDT Ancillary Procedure [facility] Vascular Lab and Vein Center- [address] [phone] Kaden Mayer MD PAD (peripheral artery disease) 03/03/2025 Orders Only [facility] Vascular Surgery [address] [phone] Tiara Sutton RN 03/02/2025 11:10 AM CDT Office Visit [facility] Ophthal[facility] [place] [address] [phone] Hannah Powell MD 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); Fuchs' corneal dystrophy of right eye; Pseudophakia of both eyes 01/21/2025 Telephone [facility] Ophthalmology [place] [address] [phone] Hannah Powell MD Information 01/18/2025 2:57 PM CDT Anesthesia Event [facility] Operating Room [address] [place] [address] Ronnie Camejo DO 01/18/2025 1:12 PM CDT - 01/18/2025 2:33 PM CDT Surgery [facility] Operating Room [address] [place] [phone] Kaden Mayer MD FEMORAL ANGIOGRAPHY WITH INTERVENTION 01/18/2025 10:50 AM CDT - 01/19/2025 12:40 PM CDT Hospital Encounter [facility] 3A Surgical [address] [place] [phone] Kaden Mayer MD Peripheral vascular disease, unspecified Discharge Disposition: Home or Self Care 01/18/2025 6:52 AM CDT - 01/18/2025 11:59 PM CDT Hospital Encounter [facility] Interventional Radiology OR [address] [phone] Kaden Mayer MD Discharge Disposition: Home or Self Care 01/12/2025 External Device Data [facility] ABSTRACTION Provider, Abstract 01/12/2025 External Device Data [facility] ABSTRACTION Provider, Abstract 01/11/[address] [phone] Kaden Mayer MD Follow Up 01/06/2025 2:45 PM CDT - 01/06/2025 11:59 PM CDT Hospital Encounter [facility] Pre Admission Testing [address] [phone] Kaden Mayer MD Discharge Disposition: Home or Self Care 01/06/2025 1:00 PM CDT Office Visit [facility] Vascular Surgery [address] [phone] Kaden Mayer MD PAD (peripheral artery disease) (Primary Dx); Encounter for preadmission testing 01/06/2025 Telephone [facility] Vascular [address] [phone] Kaden Mayer MD Surgery Talk 01/04/2025 Telephone [facility] Vascular Surgery [address] [place] [phone] Kaden Mayer MD Appointment Verification 12/22/2024 External Device Data ST[facility] ABSTRACTION Provider, Abstract 12/22/2024 External Device Data ST[facility] ABSTRACTION Provider, Abstract 12/21/2024 Telephone [facility] Vascular Surgery [address] [phone] Kaden Mayer MD Appointment Notification 12/17/2024 Orders Only [facility] Vascular Surgery [address] [phone] Provider, Abstract from Last 3 Months Immunizations Immunization Administration Dates Next Due (ADACEL/BOOSTRIX)(10 YR UP) TDAP VACCINE, 0.5ML, IM 11/07/2010 (JOSÉ MIGUEL) COVID-19 VACCINE - EMERGENCY USE AUTHORIZATION, AD26,COV2S(PF) 0.5 ML IM SUSP 04/07/2021 (PNEUMOVAX 23)(50 YRS UP) PN EUMOCOCCAL POLYSACCHARIDE (PPV23) 0.5 ML, IM 03/17/2019,03/22/2018,01/20/2018 (PREVNAR 20)(6 WKS UP) PNEUM OCOCCAL CONJUGATE VACCINE 20-VALENT (PCV20), POLYSACCHARIDE [id number] CONJUGATE, ADJUVANT 0.5 ML (PF) IM 02/06/2022 [...] Pulse 84 03/03/2025 3:39 PM CDT Temperature 36.7 C (98.1 F) 01/19/2025 8:05 AM CDT Respiratory Rate 16 01/19/2025 8:05 AM CDT Oxygen Saturation 97% 03/03/2025 3:39 PM CDT Inhaled Oxygen Concentration - - Weight 92.5 kg (204 lb) 03/03/2025 3:39 PM CDT Height 177.8 cm (5' 10 ) 03/03/2025 3:39 PM CDT Body Mass Index 29.27 03/03/2025 3:39 PM CDT Plan of Treatment Upcoming Encounters Date Type Department Care Team (Latest Contact Info) Description 03/09/2025 3:15 PM CDT Appointment [facility] Pre Admission Testing [address] [place] [phone] 03/11/2025 9:08 AM CDT Hospital Encounter [facility] Operating Room [address] [place] [phone] Kaden Mayer MD [address] [place] [phone] Peripheral vascular disease, unspecified 03/11/2025 9:08 AM CDT - 03/11/2025 10:28 AM CDT Surgery [facility] Operating Room [address] [place] [phone] Kaden Mayer MD [address] [place] [phone] FEMORAL ANGIOGRAPHY WITH INTERVENTION 04/14/2025 2:30 PM LEATHER BELT SHAPER Ancillary Procedure [facility] Center[address] [phone] Kaden Mayer MD [address] [place] [phone] 04/14/2025 3:45 PM LEATHER BELT SHAPER Office Visit [facility] Vascular Surgery [address] [phone] Kaden Mayer MD [address] [place] [phone] Scheduled Procedures Name Priority Associated Diagnoses Date/Ti me FEMORAL ANGIOGRAPHY WITH INTERVENTION Peripheral vascular disease, unspecified 03/11/2025 9:08 AM CDT Health Maintenance Due Date Last Done Comments [...] 03/06/2021, 04/05/2020, Additional history exists COVID-19 Vaccine (2024-2 6 season) 2025 02/06/2022, 04/07/2021, 10/04/2020 DIABETES HBA1C Q 6 MONTHS 06/25/2025 12/23/2024 DIABETES ANNUAL RETINAL EXAM 03/02/2026, 03/02/2025, 03/02/2025, Additional history exists DTAP/TDAP/TD VACCINES (3 - T d or Tdap) 08/30/2030 08/30/2020, 11/07/2010, 03/23/2003, Additional history exists ZOSTER VACCINE Completed 12/09/2020, 08/30/2020 PNEUMOCOCCAL VACCINE 50+ YEARS Completed 0 02/06/2022, 03/17/2019, 03/22/2018, Additional history exists Goals Goal Patient Goal Type Associated Problems Recent Progress Patient-Stated? Author Autogenerat ed Goal Care Plan Autogenerated Problem No [employer]ann [employer] Devices Implanted Type Area Plant Safety Engineer Device Identifier Shelf Expiration Date Model / Serial / Lot Dev Closure Angioseal 6fr Vip [id number] - [id number] Implanted:Qty : 1 on 01/18/2025 by Kaden Mayer MD at [facility] Closure Device Right: Groin TERUMO- CARDIOVASC SYS [id number] 09/21/2025 [id number] / / [id number] Stent Vasc Innova [id number] - [id number] Implanted:Qty : 1 on 01/18/2025 by Kaden Mayer MD at [facility] Stent Left: Superficial Femoral Artery [employer] INTERVENTIONS [id number] 08/05/2029 [id number] / / [id number] Procedures Procedure Name Priority Date/Time Associated Diagnosis Comments US DUPLEX ARTERIAL LEG LEFT Routine 03/03/2025 3:51 PM CDT PAD (peripheral artery disease) OCT, RETINA - OU - BOTH EYES Routine 03/02/2025 12:39 PM CDT 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 TELEMETRY REPORT 01/20/2025 2:08 AM CDT CBC [...] 3:08 PM CDT Encounter for preadmission testing [place] DUP/COPY PATIENT'S RECORDS Routine 12/17/2024 11:39 AM CDT from Last 3 Months Results * US DUPLEX ARTERIAL LEG LEFT (03/03/2025 3:51 PM CDT) Anatomical Region Laterality Modality Lower Extremity Ultrasound 03/03/2025 3:05 PM CDT Narrative 03/04/2025 2:48 PM CDT [facility] Vascular Lab and Vein Center [address] [place] [address] Noninvasive Vascular Lab Limited Lower Extremity Arterial Duplex Study Patient: Gabino Jones Study ID: US DUPLEX ARTERI Gender: M : 1955 Age: 69 Room: Height: 162.6cm Weight: 92kg BSA: 2.08m^2 Pt status: Outpatient Study Date: 03/03/2025 Study Time: 03:05:58 PM BSA: 2.08m^2 Ordering: Kaden Mayer Interpreting:Kaden Mayer Rate Manager: CDP Indications: V. History: Risk factors: Prior [...] - Max brachial pressure (sys): 164mm Hg [facility] Vascular Lab and Vein Center is accredited with the Intersocietal Commission for the Accreditation of Vascular Laboratories (ICAVL) Prepared and Electronically Authenticated Kaden Mayer Confirmed 03/04/2025 14:48 Procedure Note Kaden Mayer MD - 03/04/2025 [facility] Vascular Lab and Vein Center [address] [place] [address] [address] [place] [address] Noninvasive Vascular Lab Limited Lower Extremity Arterial Duplex Study Patient: Gabino Jones Study ID: US DUPLEX ARTERI Gender: M : 1955 Age: 69 Room: Height: 162.6cm Weight: 92kg BSA: 2.08m^2 Pt status: Outpatient Study Date: 03/03/2025 Study Time: 03:05:58 PM BSA: 2.08m^2 Ordering: Kaden Mayer Interpreting:Kaden Mayer Rate Manager: CDP Indications: V. History: Risk factors: Prior [...] - Max brachial pressure (sys): 164mm Hg [facility] V[facility] Lab and Vein Center is accredited withthe [facility] Commission for the Accreditation of Vascular Laboratories (ICAVL) Prepared and Electronically Authenticated Kaden Mayer Confirmed 03/04/2025 14:48 Kaden Mayer MD US ORDERABLES Final Result * OCT, RETINA - OU - BOTH EYES (03/02/2025 12:39 PM CDT) Narrative [facility] OPHTHAL[facility]OLOGY ORDERS - 03/02/2025 1:14 PM CDT Optical Coherence Tomography ordered to evaluate the status of the macula: RIGHT EYE: Focal outer retinal loss. EZ/IZ disruption. Retinal thinning. Focal RPE irregularity. LEFT EYE: There is no intraretinal fluid or Subretinal fluid. A trace Epiretinal membrane is present Hannah Powell MD OPHTH TOMOGRAPHY Final Result [facility] OPHTH[facility] ORDERS * TELEMETRY REPORT (01/20/2025 2:08 AM CDT) us Provider Scanning ECG ORDERABLES Final Result * (ABNORMAL) CBC WITH DIFFERENTIAL (01/19/2025 5:46 AM CDT) Only the most recent of2 resultswithin the time period is included. [facility] WBC 3.7(L) 4.8 - 10.8 K/uL 01/19/2025 6:14 AM [facility] RBC 4.58(L) 4.60 - 6.20 M/uL 01/19/2025 6:14 AM [facility] HEMOGLOBIN 12.5(L) 14.0 - 18.0 g/dL 01/19/2025 6:14 AM [facility] HEMATOCRIT 39.0(L) 41.0 - 53.0 % 01/19/2025 6:14 AM [facility] MCV 85.2 84.0 - 103.0 fL 01/19/2025 6:14 AM [facility] MCH 27.3 27.0 - 34.0 pg 01/19/2025 6:14 AM [facility] MCHC 32.1 30.0 - 35.0 g/dL 01/19/2025 6:14 AM [facility] PLATELETS 133(L) 140 - 440 K/uL 01/19/2025 6:14 AM [facility] MPV 9.7 8.9 - 12.8 fL 01/19/2025 6:14 AM [facility] RDW 17.5(H) 11.0 - 14.5 % 01/19/2025 6:14 AM [facility] RDW-STDEV 54.1(H) 37.0 - 54.0 fL 01/19/2025 6:14 AM [facility] NEUTROPHILS 69 42 - 75 % 01/19/2025 6:14 AM [facility] LYMPHOCYTES 17(L) 24 - 44 % 01/19/2025 6:14 AM [facility] MONOCYTES 12(H) 2 - 10 % 01/19/2025 6:14 AM [facility] EOSINOPHILS 2 0 - 7 % 01/19/2025 6:14 AM [facility] BASOPHILS 1 0 - 1 % 01/19/2025 6:14 AM CDT [facility] IMMATURE GRANULOCYTES 0 0 - 2 % 01/19/2025 6:14 AM CDT [facility] NEUTROPHIL ABSOLUTE 2.58 2.00 - 8.00 K/uL 01/19/2025 6:14 AM CDT [facility] LYMPHOCYTE ABSOLUTE 0.63(L) 1.20 - 4.00 K/uL 01/19/2025 6:14 AM CDT [facility] MONOCYTE ABSOLUTE 0.43 0.10 - 0.60 K/uL 01/19/2025 6:14 AM CDT [facility] EOSINOPHIL ABSOLUTE 0.06 0.00 - 0.70 K/uL 01/19/2025 6:14 AM CDT [facility] BASOPHILS ABSOLUTE 0.03 0.00 - 0.20 K/uL 01/19/2025 6:14 AM CDT [facility] IMMATURE GRANULOCYTES ABSOLUTE 0.01 0.00 - 0.10 K/uL 01/19/2025 6:14 AM CDT [facility] SMEAR REVIEWED: NA - Not Applicable 01/19/2025 6:14 AM T [facility] Blood Venipuncture / Unknown 01/19/2025 5:46 AM CDT 01/19/2025 6:08 AM CDT us Kaden Mayer MD HEMATOLOGY ORDERABLES Final Re sult [facility] CLIA # [id number] [address] [place] [address] [place] [address] * (ABNORMAL) POC GLUCOSE (01/18/2025 3:58 PM CDT) Only the most recent of2 resultswithin the time period is included. [facility] GLUCOSE POC 108(H) 74 - 99 mg/dL 01/18/2025 3:58 PM CDT [facility] SPECIMEN SOURCE, GLUCOSE POC Capillary 01/18/2025 3:58 PM CDT [facility] Blood, whole 01/18/2025 3:58 PM CDT 01/18/2025 4:05 PM CDT us Kaden Mayer MD POINT OF CARE TESTING Final Re sult Performing Organization Address [facility] Co de Phone Number [facility] CLIA # [id number] [address] [facility] [place] [address] * IR FLUORO OR OTHER (01/18/2025 3:52 PM CDT) Narrative 01/18/2025 3:52 PM CDT Order Auto Finalized. Please see associated Operative Report/Progress Note/Procedure Note from the same date. us Kaden Mayer MD IR ORDERABLES Final Result * (ABNORMAL) POC ACTIVATED CLOTTING TIME (01/18/2025 3:30 PM CDT) ACTIVATED CLOTTING TIME POC 285(H) 116 - 140 sec 01/18/2025 3:30 PM CDT [facility] Blood 01/18/2025 3:30 PM CDT 01/19/2025 6:51 PM CDT us Kaden Mayer MD POINT OF CARE TESTING Final Re sult Performing Organization Address [facility] Co de Phone Number [facility] CLIA # [id number] [address] [facility] [place] [address] * VERIFICATION BLOOD GROUP (01/06/2025 3:35 PM CDT) ABO GROUP A 01/06/2025 6:[address] [facility] LABORATORY [facility] RH (D) TYPE Positive 01/06/2025 6:[address] [facility] LABORATORY [facility] Blood Venipuncture / Unknown 01/06/2025 3:35 PM CDT 01/06/2025 5:14 PM CDT us Kaden Mayer MD BLOOD BANK ORDERABLES Final Re sult Performing Organization Address [facility] Co de Phone Number [facility] [place] CLIA#[id number] [facility] [place] [address], * RED BLOOD CELL ANTIGEN TYPE (01/06/2025 3:15 PM CDT) JKA RED BLOOD CELL ANTIGEN Negative 01/06/2025 11:36 PM [address] [facility] LABORATORY [facility] -- [place] E RED BLOOD CELL ANTIGEN Negative 01/06/2025 11:36 PM CDT [facility] LABORATORY SERVICES -- [facility] C RED BLOOD CELL ANTIGEN Negative 01/06/2025 11:36 PM [address] [facility]ATORY [facility] [place] Blood Venipuncture / Unknown 01/06/2025 3:15 PM CDT 01/06/2025 5:14 PM CDT us Kaden Mayer MD BLOOD BANK ORDERABLES Edited R esult - Final Performing Organization Address [facility] Co de Phone Number [facility] [place] CLIA#[id number] [facility] [place] [address], * BLOOD BANK AB IDENT (01/06/2025 3:15 PM CDT) ANTIBODY #1 Anti-Jka 01/06/2025 11:45 PM [address] [facility] LAB[facility]ATORY [facility] [place] ANTIBODY #2 Anti-c 01/06/2025 11:45 PM [address] [facility]ATORY [facility] [place] Blood Venipuncture / Unknown 01/06/2025 3:15 PM CDT 01/06/2025 5:14 PM CDT us Kaden Mayer MD BLOOD BANK ORDERABLES Final Re sult Performing Organization Address [facility] de Phone Number [id number] [address] [place] [address] * (ABNORMAL) PROTIME-INR (01/06/2025 3:15 PM CDT) Pathologist [facility] PROTIME 15.1(H) 12.7 - 14.9 Seconds 01/06/2025 5:39 PM CDT [facility] INR 1.1 0.8 - 1.2 01/06/2025 5:39 PM CDT [facility] Blood Venipuncture / Unknown 01/06/2025 3:15 PM CDT 01/06/2025 5:21 PM CDT Narrative [facility] Teleport [facility] - 01/06/2025 5:39 PM CDT Expected Values for INR: DVT/PE Goal INR 2.5; range 2.0 - 3.0 Valve Replacement Tissue Goal INR 2.5; range 2.0 - 3.0 Valve Replacement Mechanical Goal INR 3.0; range 2.5 - 3.5 POST-OK Goal INR 2.5; range 2.0 - 3.0 or Goal INR 3.0; range 2.5 - 3.5 Atrial Fibrillation Goal INR 2.5; range 2.0 - 3.0 Ischemic Stroke Goal INR 2.5; range 2.0 - 3.0 Kaden Mayer MD HEMATOLOGY ORDERABLES Final Re sult Performing Organization Address [facility]/ZIP Co de Phone Number [facility] CLIA # [id number] [address] [place] [address] * TYPE AND SCREEN (01/06/2025 3:15 PM CDT) ABO GROUP A 01/06/2025 11:[address] [facility] LABORATORY [facility] RH (D) TYPE Positive 01/06/2025 11:[address] [facility] LABORATORY [facility] ANTIBODY SCREEN Positive 01/06/2025 11:44 PM CDT [facility] Blood Venipuncture / Unknown 01/06/2025 3:15 PM CDT 01/06/2025 5:14 PM CDT Kaden Mayer MD BLOOD BANK ORDERABLES Edited R esult - Final [facility] CLIA#[id number] Critical [place] [address], * (ABNORMAL) BASIC METABOLIC PANEL (01/06/2025 3:15 PM CDT) SODIUM 142 136 - 145 mmol/L 01/06/2025 5:41 PM CDT [facility] POTASSIUM 4.1 3.5 - 5.1 mmol/L 01/06/2025 5:41 PM T [facility] CHLORIDE 106 98 - 107 mmol/L 01/06/2025 5:41 PM T [facility] CO2 23 22 - 29 mmol/L 01/06/2025 5:41 PM CDT [facility] CALCIUM 8.9 8.8 - 10.2 mg/dL 01/06/2025 5:41 PM T [facility] BUN 15 8 - 23 mg/dL 01/06/2025 5:41 PM T [facility] CREATININE 1.04 0.67 - 1.17 mg/dL 01/06/2025 5:41 PM T [facility] Comment:The GFR result is no t clinically significant on patients <18 or >70 years of age. GLUCOSE 135(H) 74 - 99 mg/dL 01/06/2025 5:41 PM T [facility] GFR >60 mL/min/1.7 3 sq meter 01/06/2025 5:41 PM T [facility] Comment:eGFR calculated with 2020 CKD-EPI equation. Vegetarian diet, extremely high or low muscle mass, and may affect results. Cystatin C with Glomerular Filtration Rate is a suitable alternative for these patients. ANION GAP 13 9 - 20 mmol/L 01/06/2025 5:41 PM CDT [facility] Blood Venipuncture / Unknown 01/06/2025 3:15 PM CDT 01/06/2025 5:21 PM CDT us Kaden Mayer MD CHEMISTRY ORDERABLES Final Res ult [facility] CLIA # [id number] [facility] [place] [address] * EKG 12-LEAD (01/06/2025 3:08 PM CDT) 01/06/2025 3:08 PM CDT Narrative INTERFACE SYSTEM - 01/06/2025 8:21 [place] [address] Test Date: 2025-01-06 Pat Name: GABINO MILLBRAE Department: 12 Room: Gender: Male [place] Measurer: LIN : 1955 Requested By: Order Number: [id number] Reading MD: Karla Francis Measurements Intervals [place] Rate: 91 P: 0 FL: 0 QRS: 35 QRSD: 126 T: 54 QT: 384 QTc: 472 Interpretive Statements Atrial fibrillation Right bundle branch block Possible Inferior infarct, age undetermined Abnormal ECG Electronically Signed On 01-06-2025 20:21:31 CDT by Karla Francis Procedure Note Karla Francis, - 01/06/2025 [place] [address] Test Date: 2025-01-06 Pat Name: GABINO JONES Department: 12 Room: Gender: Male [place] Measurer: LIN : 1955 Requested By: Order Number: [id number] Reading : Karla Francis Measurements Intervals [place] Rate: 91 P: 0 FL: 0 QRS: 35 QRSD: 126 T: 54 QT: 384 QTc: 472 Interpretive Statements Atrial fibrillation Right bundle branch block Possible Inferior infarct, age undetermined Abnormal ECG Electronically Signed On 01-06-2025 20:21:31 CDT by Karla Francis us Kaden Mayer MD ECG ORDERABLES Final Result INTERFACE SYSTEM Refer to clinic/hospital department * [place] DUP/COPY PATIENT'S RECORDS (12/17/2024 11:39 AM CDT) us Abstract Provider [place] - DENTAL Final Result from Last 3 Months Additional Health Concerns Active Problems Noted Date Diagnosed Date Autogenerated Problem 03/04/2025 Insurance MEDICARE PART A HOSPITAL ONLY [employer] DUAL ADVANTAGE HMO DSNP [facility] [employer] * Guarantor: [facility] [place] Account Type Relation to Patient Date of Phone Billing Address Corporate Other DEFAULT ADDRESS [address] [employer] * Guarantor: [employer] Account Type Relation to Patient Date of Phone B[facility]DRESS [address] [employer] * Guarantor: [facility] Account Type Relation to Patient Date of Phone Billing Address [facility] DEFAULT ADDRESS [address] [employer] Advance Directives For more information, please contact: [phone] * Full Code (Latest Code Status on File) Date Activated Date Inactivated Comments 09/05/2022 11:49 PM 09/07/2022 1:06 PM
--- OUTSIDE RECORDS SUMMARY | 2025-03-09 08:39 | XMS_ITS | Encounter Summary ---
Author Organization [facility] Address [address] [place] [address] Care Team Providers Care Chemical Radiation Technician Name Role Phone Unavailable Primary Care Provider Unavailabl e Encounter Details Date Type Department Care Team (Late st Contact Info) Description 03/03/[address] [facility] Vascular Surgery [place] [address] [place] [address] Tiara Sutton RN Social History Tobacco Use Types Packs/Day Years [...] Info) Description 03/09/2025 3:15 PM CDT Appointment [facility] Pre Admission Testing Center [place] [address] [place] [phone] 03/11/2025 9:08 AM CDT Hospital Encounter [facility] Operating Room [address] [place] [phone] Kaden Mayer MD [address] [place] [phone] Peripheral vascular disease, unspecified 03/11/2025 9:08 AM CDT - 03/11/2025 10:28 AM CDT Surgery [facility] Operating Room [facility] [place] [phone] Kaden Mayer MD [address] [place] [phone] FEMORAL ANGIOGRAPHY WITH INTERVENTION 04/14/2025 2:30 PM CHAIR UPHOLSTERER Ancillary Procedure [facility]in Center[address] [phone] Kaden Mayer MD [address] [place] [phone] 04/14/2025 3:45 PM CHAIR UPHOLSTERER Office Visit [facility] Vascular Surgery [address] [address] Kaden Mayer MD [address] [place] [phone] Scheduled Procedures Name Priority Associated Diagnoses Date/Ti me FEMORAL ANGIOGRAPHY WITH INTERVENTION Peripheral vascular disease, unspecified 03/11/2025 9:08 AM CDT documented as of this encounter Visit Diagnoses Not on filedocumented in this encounter Additional Health Concerns Assessment Noted Time PHQ-9 Depression Total Score: 2 09/06/19 23 11:43 PM CDT documented as of this encounter
--- OUTSIDE RECORDS SUMMARY | 2025-03-09 08:40 | XMS_ITS | Patient Health Record ---
Author Organization [facility] Address [address] [place] [address] Care Team Providers Care Service Worker Name Role Phone Aryan Taylor Unavailable [phone] Sameera Patel Unavailable [phone] Allergies No Known Allergies Results Component Value Reference Range Notes UA Without [place], [place] - [id number] Reviewed date:07/07/2024 02:24:04 PM Interpretation: Performing Lab: Notes/Report: Glucose 2+ Bili 1+ Ketones 0 Sp [place] 1.020 Blood 0 pH 6.0 Protein +- Urobili +- Nitrites 0 Leukocytes 0 Reason For Referral No Information Medications Medication SIG (Take, Route, Frequency, Duration) Notes Start Date End Date Status 2 ML digoxin 0.25 MG/ML Injection *Reorder from [facility] for eRx and Interaction Alerts* 01/30/2023 Active albuterol 0.417 MG/ML Inhalation Solution INTRAPULMONARY *Reorder from [facility] for eRx and Interaction Alerts* 01/30/2023 Active Loratadine 10 MG Oral Tablet ORAL *Reorder from [facility] for eRx and Interaction Alerts* 01/30/2023 Active Atorvastatin Calcium 10 MG Tablet Oral 01/30/2023 Active predniSONE 5 MG Oral Tablet ORAL *Reorder from [facility] for eRx and Interaction Alerts* 01/30/2023 Active 60 ACTUAT olodaterol 0.0025 MG/ACTUAT Inhalation [place] [Striverdi] INTRAPULMONARY *Reorder from [facility] for eRx and Interaction Alerts* 01/30/2023 Active aspirin 325 MG Delayed Release Oral Tablet ORAL *Reorder from [facility] for eRx and Interaction Alerts* 01/30/2023 Active Potassium Chloride 20 MEQ Powder for Oral Solution ORAL *Reorder from [facility] for eRx and Interaction Alerts* 01/30/2023 Active apixaban 5 MG Oral Tablet [Eliquis] ORAL *Reorder from [facility] for eRx and Interaction Alerts* 01/30/2023 Active Omeprazole Magnesium 20 MG Tablet Delayed Release Oral 01/30/2023 Active Nitroglycerin 0.4 MG Tablet Sublingual Sublingual 01/30/2023 Active Furosemide 40 MG Oral Tablet ORAL *Reorder from [facility] for eRx and Interaction Alerts* 01/30/2023 Active Abiraterone Acetate 250 MG Oral Tablet ORAL *Reorder from [facility] for eRx and Interaction Alerts* 01/30/2023 Active Docusate Sodium 100 MG Oral Tablet ORAL *Reorder from [facility] for eRx and Interaction Alerts* 01/30/2023 Active Calcium Citrate 1500 MG / Cholecalciferol 200 UNT Oral Tablet ORAL *Reorder from [facility] for eRx and Interaction Alerts* 09/24/2023 Active 60 ACTUAT tiotropium 0.0025 MG/ACTUAT Inhalation [place] [Spiriva] INTRAPULMONARY *Reorder from [facility] for eRx and Interaction Alerts* 01/30/2023 Active albuterol 0.833 MG/ML / ipratropium bromide 0.167 MG/ML Inhalation Solution INTRAPULMONARY *Reorder from [facility] for eRx and Interaction Alerts* 01/30/2023 Active Metoprolol Tartrate 75 MG Oral Tablet ORAL *Reorder from [facility] for eRx and Interaction Alerts* 01/30/2023 Active LORazepam 1 MG Oral Tablet ORAL *Reorder from [facility] for eRx and Interaction Alerts* 01/30/2023 [...] Problem Status W/U Status Risk Notes Problem USP (current) use of other agents affecting estrogen receptors and estrogen levels (Z79.818) Active confirmed Problem History of malignant neoplasm of prostate (557544656) Personal history of malignant neoplasm of prostate (Z85.46) Active confirmed Problem Urinary retention (155069141) Urinary retention (R33.9) Active confirmed Problem Bladder neck obstruction (692133084) Bladder neck obstruction (N32.0) Active confirmed Vital Signs Heart Rate 78 /min 07/07/2024 Temperature 98.68 degrees Fahrenheit 07/07/2024 Height-cm 177.80 cm 07/07/2024 Blood pressure diastolic 64 mm Hg 07/07/2024 Weight-kg 99.79 kg 07/07/2024 Height 70.00 in 07/07/2024 Blood pressure systolic 110 mm Hg 07/07/2024 Weight 220.0 lbs 07/07/2024 BMI 31.56 kg/m2 07/07/2024 Encounters Encounter Location Date Provider Diagnosis Formerly [facility] [address] [place] [address] 07/07/2024 Sameera Patel Personal history of malignant neoplasm of prostate Z85.46 ; USP (current) use of other agents affecting estrogen receptors and estrogen levels Z79.818 ; Urinary retention R33.9 ; Urinary urgency R39.15 and Frequency of micturition R35.0 Formerly [facility] [address] [place] [address] [place] [address] 03/12/2024 Aryan Taylor [facility] [address] [place] [address] [place] [address] 03/16/2024 Aryan Leggettsay [facility]ly [facility] [address] [place] [address] [place] [address] 03/16/2024 Aryan Taylor Personal history of malignant neoplasm of prostate Z85.46 and 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) use of other agents affecting estrogen receptors and estrogen levels Z79.818 [facility]ly [facility] [address] [place] [address] [place] [address] 05/19/2024 Aryan Taylor [facility] [address] [place] [address] [place] [address] 06/16/2024 Aryan Taylor USP (current) use of other agents affecting estrogen receptors and estrogen levels Z79.818 and Personal history of malignant neoplasm of prostate Z85.46 [facility]ly [facility] [address] [place] [address] Dr [address] [place] [address], [place] [address] 07/06/2024 Aryan Taylor [facility] [address] [place] [address] [place] [address] 07/07/2024 Aryan Taylor USP (current) use of other agents affecting estrogen receptors and estrogen levels Z79.818 and Personal history of malignant neoplasm of prostate Z85.46 [facility] [address] [place] [address] [place] [address] 10/02/2024 Aryan Taylor Assessments Encounter Date Diagnosis (ICD Code) Assessment Notes Treatment Notes Treatment Clinical Notes Section Notes 07/07/2024 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) use of other agents affecting estrogen receptors and estrogen levels (ICD-10 - Z79.818) 06/16/2024 USP (current) use of other agents affecting estrogen receptors and estrogen levels (ICD-10 - Z79.818) 03/16/2024 Personal history of malignant neoplasm of prostate (ICD-10 - Z85.46) 07/07/2024 USP (current) use of other agents affecting estrogen [...] checked when advised to do so 07/07/2024 Urinary retention (ICD-10 - R33.9) If [...] neoplasm of prostate (ICD-10 - Z85.46) 03/16/2024 USP (current) use of other agents affecting estrogen receptors and estrogen levels (ICD-10 - Z79.818) 07/07/2024 Personal history of malignant neoplasm of prostate (ICD-10 - Z85.46) 07/07/2024 Urinary urgency (ICD-10 - R39.15) 07/07/2024 Frequency of micturition (ICD-10 - R35.0) Plan Of Treatment Pending Test Test Name Order Date Basic Metabolic Panel (BMP) 72637 2023 Basic Metabolic Panel (BMP) 79803 2024 PSA Diagnostic--[id number] 07/07/2024 Bone Densitometry-98901 07/07/2024 Bone Densitometry-30151 06/16/2024 Bone Densitometry-62203 03/16/2024 Insurance Providers Payer Name Payer Address Payer Phone Subscriber Number Group Number Insured Name Patient Relationship to Insured Coverage Start Date Coverage End Date [employer] [address] [place] [phone] [id number] SEA HODGE Self - patient is the insured Medical (General) History Hospitalization History Reason Date(Month/Year) sars/rsv/pneumonia
--- NOTE | 2025-03-09 09:00 | XR_ITS ---
WS: [id number] Portable AP upright chest, 03/09/2025 Clinical Data: Hemoptysis Comparison: Portable chest, 03/01/2025 Findings: There are bilateral patchy lower lobe opacities with greater opacity on the left than the right. The opacities may represent atelectasis, pneumonia and/or pulmonary vascular congestion. The diaphragms are flattened. The heart is enlarged. There are midline sternotomy sutures. The aortic arch and descending thoracic aorta show tortuosity. There are sutures in the left apex. Monitor leads are on the chest wall. XR/XR chest 1V portable [id number] Impression: 1. Bilateral patchy lower lobe opacities which may represent atelectasis, pneum onia and/or pulmonary vascular congestion. 2. Cardiomegaly, atherosclerosis and hyperinflation.
--- NOTE | 2025-03-09 09:01 | ECG_ITS ---
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 Measurements Intervals [place] Rate: 108 P: 0 AL: 0 QRS: 63 QRSD: 132 T: 57 QT: 376 QTc: 506 Interpretive Statements ATRIAL FIBRILLATION WITH RAPID VENTRICULAR RESPONSE WITH ABERRANT CONDUCTION OR VENTRICULAR PREMATURE COMPLEXES RIGHT BUNDLE BRANCH BLOCK [120+ ms QRS DURATION, UPRIGHT V1, 40+ ms S IN I/aVL/V4/V5/V6] MARKED ST DEPRESSION, CONSIDER SUBENDOCARDIAL INJURY [0.2+ mV ST DEPRESSION] ACUTE IL Compared to ECG 03/01/2025 14:43:10 ST (T wave) deviation now present Electronically Signed On 03-09-2025 23:50:26 CDT by Mathew Sanchez M.D. [email or web address]
[2025-03-09 09:25] LABS: Hematocrit 36.7 % (37-53); Hemoglobin 11.90 g/dL (11.27-16.99); Mean Corpuscular HGB Conc 32.4 g/dL (30-55); Mean Corpuscular Hemoglobin 27.8 pg (27-33); Mean Corpuscular Volume 85.7 fl (82-101); Nucleated Red Blood Cells % 0 %; Platelet Count 149 10^3/cmm (157-399); Red Blood Count 4.28 10^6/uL (3.85-5.65); White Blood Count 9.14 10^3/uL (3.29-11.43)
[2025-03-09 09:38] LABS: Troponin(5th) Baseline 23 ng/L (0-15)
[2025-03-09 09:46] LABS: Alanine Aminotransferase 8 U/L (0-41); Albumin Level 3.8 g/dL (3.5-5.2); Alkaline Phosphatase 82 U/L (40-130); Anion Gap 19.0 (5-19); Aspartate Amino Transferase 11 U/L (0-40); Blood Urea Nitrogen 11 mg/dL (8-23); Calcium 8.2 mg/dL (8.5-10.5); Carbon Dioxide 20 mmol/L (22-29); Chloride 98 mmol/L (98-107); Creatinine Clr Calc Pharmacy 97.5489; Globulin 2.5 g/dL (1.3-4.6); Glucose 135 mg/dL (65-115); Osmolality Calculated 277 mOsm/kg (285-295); Potassium 4.0 mmol/L (3.5-5.1); Sodium 133 mmol/L (136-145); Total Protein 6.3 g/dL (6.6-8.7)
[2025-03-09 09:53] LABS: Digoxin 1.2 ng/mL (0.6-1.2)
[2025-03-09 10:16] LABS: Lactic Sepsis W/Reflex 1.3 mmol/L (0.5-2.2)
--- NOTE | 2025-03-09 10:42 | US_ITS ---
WS: [id number] RIGHT UPPER QUADRANT ULTRASOUND HISTORY: elevated t bili COMPARISON: 01/19/2020 Liver: 15.6 cm in length. Normal size liver and echogenicity. No bile duct dilatation or mass. Portal Vein: Normal hepatopetal flow with monophasic waveform. Gallbladder: Prior cholecystectomy. CBD: 0.5 cm Pancreas: Partially obscured. Right kidney: 9.8 cm in length. Normal size and echogenicity. No hydronephrosis or mass. Reidentified is a cyst from the inferior kidney measuring 2.1 x 1.8 x 2.3 cm. Aorta and IVC: Unremarkable abdominal aorta and IVC. No ascites. US/US liver [id number] IMPRESSION: 1. Prior cholecystectomy. 2. Normal common bile duct. 3. Stable RIGHT renal cyst 2.3 cm.
[2025-03-09 10:53] LABS: NT Pro B Type Natriuretic Pept 7072 pg/mL (0-125); Procalcitonin 2.46 ng/mL (0-0.5)
--- NOTE | 2025-03-09 11:01 | ECG_ITS ---
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 Measurements Intervals [place] Rate: 75 P: 0 FL: 0 QRS: 55 QRSD: 141 T: 22 QT: 385 QTc: 430 Interpretive Statements ATRIAL FIBRILLATION RIGHT BUNDLE BRANCH BLOCK [120+ ms QRS DURATION, UPRIGHT V1, 40+ ms S IN I/aVL/V4/V5/V6] Compared to ECG 03/01/2025 14:43:10 Ventricular premature complex(es) no longer present Aberrant conduction of supraventricular beat(s) no longer present Electronically Signed On 03-09-2025 23:55:14 CDT by Mathew Sanchez M.D. [email or web address]
--- NOTE | 2025-03-09 11:13 | W.ED.SOB ---
HPI - SOB/Dyspnea General: Chief Complaint: Shortness of Breath/Dyspnea Stated Complaint: SOB Time Seen by Provider: 03/09/25 08:49 History of Present Illness: HPI Narrative: 69-year-old male presents emergency room with complaint of shortness of breath. He was recently hospitalized for pneumonia was discharged home on oxygen he lives in a camper he has noticed worsening orthopnea addition and this has been out of his oxygen. EMS states he was 88% on room air when they arrived he is on 3 L by nasal cannula now. Satting in the mid 90s. He was given albuterol and Solu-Medrol and DuoNebs and route. He denies any chest pain has not noticed any increase swelling his heart has had minimally productive cough. Associated symptoms: Deny abdominal pain, chest pain or fever(s) Related Data Home Medications ?Medication ?Instructions ?Recorded ?Confirmed furosemide 40 mg tablet (Lasix) 40 mg PO QAM 03/28/21 03/09/25 potassium chloride 20 mEq 20 meq PO QAM 03/28/21 03/09/25 tablet,extended release tamsulosin 0.4 mg capsule (Flomax) 0.4 mg PO BID 02/25/23 03/09/25 loratadine 10 mg tablet 10 mg PO QAM 05/15/23 03/09/25 digoxin 250 mcg (0.25 mg) tablet 250 mcg PO QAM 08/04/23 03/09/25 nitroglycerin 0.4 mg sublingual 0.4 mg sublingual Q5M PRN Chest 08/04/23 03/09/25 tablet (Nitrostat) Pain levothyroxine 125 mcg tablet 125 mcg PO QAM 07/09/24 03/09/25 fluticasone 100 mcg-salmeterol 50 1 inh inhalation BEDTIME 09/15/24 03/09/25 mcg/dose blistr powdr for inhalation (Advair Diskus) albuterol sulfate 2.5 mg/3 mL 2.5 mg inhalation Q6H PRN 01/28/25 03/09/25 (0.083 %) solution for nebulization Shortness Of Breath aspirin 81 mg tablet,delayed 81 mg PO DAILY 01/28/25 03/09/25 release atorvastatin 20 mg tablet 10 mg PO BEDTIME 01/28/25 03/09/25 cholecalciferol (vitamin D3) 50 50 mcg PO DAILY 01/28/25 03/09/25 mcg (2,000 unit) tablet (Vitamin D3) clopidogrel 75 mg tablet 75 mg PO DAILY 01/28/25 03/09/25 gabapentin 100 mg capsule 200 mg PO TID 01/28/25 03/09/25 metoprolol tartrate 25 mg tablet 37.5 mg PO BID 01/28/25 03/09/25 sennosides 8.6 mg-docusate sodium 1 tab PO DAILY 01/28/25 03/09/25 50 mg tablet sertraline 100 mg tablet 100 mg PO QPM 01/28/25 03/09/25 tiotropium bromide 2.5 2 puff inhalation DAILY 01/28/25 03/09/25 mcg/actuation mist for inhalation (Spiriva Respimat) calcium carbonate 500 mg PO BID 03/09/25 03/09/25 cyanocobalamin (vitamin B-12) 100 100 mcg PO DAILY 03/09/25 03/09/25 mcg tablet (Vitamin B-12) empagliflozin 25 mg tablet 12.5 mg PO DAILY 03/09/25 03/09/25 (Jardiance) pantoprazole 40 mg tablet,delayed 40 mg PO BID 03/09/25 03/09/25 release Previous Rx's ?Medication ?Instructions ?Recorded apixaban 5 mg tablet (Eliquis) 5 mg PO BID #60 tabs 10/16/19 albuterol sulfate 90 mcg/actuation 2 inh inhalation Q4H PRN shortness 07/27/22 aerosol inhaler of breath or wheezing #18 grams blood-glucose meter (Blood Glucose #1 ea 05/13/24 Monitoring kit) lancets #100 ea 05/13/24 pen needle, diabetic 32 gauge x #50 ea 05/13/2406/06 (BD Ultra-Fine Micro Pen Needle) diclofenac sodium 1 % topical gel 4 g topical QID PRN joint pain 08/24/24 #100 grams insulin glargine 100 unit/mL (3 10 unit (0.1 mL) SUBCUT DAILY #15 09/14/24 mL) subcutaneous pen (Lantus mL Solostar U-100 Insulin) folic acid 1 mg tablet 1 mg PO DAILY #30 tabs 12/11/24 prednisone 20 mg tablet 60 mg (3 x 20 mg) PO DAILY #20 tabs 03/01/25 Allergies Allergy/AdvReac Type Severity Reaction Status Date / Time No Known Allergies Allergy Verified 01/25/25 11:15 Review of Systems Const: Denies: fever(s) or chills Card: Denies: chest pain Resp: Denies: dyspnea GI: Denies: abdominal pain : Denies: dysuria, urinary frequency or urinary urgency Musc: Denies: neck pain or back pain Skin/Breast: Denies: rash PFSH ED PFSH: Medical History Greater trochanteric bursitis of right hip Prostate cancer History of colon polyps Chronic anticoagulation eliquis, for afib Chronic respiratory failure with hypoxia Heart failure with preserved ejection fraction Coronary artery disease CHF (congestive heart failure) Last echocardiogram normal EF, grade 2/4 diastolic dysfunction October 2019 Hypertension Anemia Atrial fibrillation GERD (gastroesophageal reflux disease) Hypothyroidism Hyperlipidemia COPD (chronic obstructive pulmonary disease) Surgical History History of cataract surgery Left eye - 12/2022 H/O prostate biopsy S/P appendectomy S/P cholecystectomy History of colonoscopy (~04/2020) History of vasectomy History of knee surgery History of coronary artery bypass graft (03/2019) [address] [place] [address] Family History Father , IN HIS 50'S Lung disease tuberculosis Mother , AT AGE 63 CAD (coronary artery disease) Diabetes Hypertension Sister Cancer Denies family history of Clotting disorder Dementia Hyperlipidemia Psychiatric illness Chronic kidney disease (CKD) Suicide Anesthesia complication Bleeding disorder Stroke Social History Smoking and tobacco/nicotine status: never used tobacco/nicotine Quit status (tobacco/nicotine): has quit using Year quit tobacco: 2017 - PPD x 52 Years Alcohol intake: never Substance/Drug Use: never Lives independently: Yes Household members: none Marital status: Legally Current occupational status: employed and retired Do you think of yourself as: Straight/Heterosexual Current gender identity: Male Physical Exam Const: GENERAL APPEARANCE: cooperative ORIENTATION/CONSCIOUSNESS: Yes awake, Yes oriented to person, Yes oriented to place and Yes oriented to time HENMT: COMMON NORMALS: normocephalic, atraumatic and hearing grossly normal bilaterally HEAD & SCALP: normocephalic and atraumatic Resp: COMMON NORMALS: normal respiratory effort, No retractions and No use of accessory muscles AUSCULTATION: crackles (Left greater than right) Cardio: COMMON NORMALS: regular rate and No murmurs present (Cardio) RATE: regular rate RHYTHM: abnormal rhythm irregularly irregular GI: COMMON NORMALS: Soft to palpation and No hepatosplenomegaly present AUSCULTATION: Yes normoactive bowel sounds PALPATION: Yes Soft to palpation, No Tenderness to palpation present (GI), No Guarding due to palpation present (GI) and Yes No hepatosplenomegaly present Extremity: COMMON NORMALS: normal to inspection, capillary refill normal, no clubbing, cyanosis or edema, no calf tenderness and no pedal edema Neuro: SENSORIUM/ORIENTATION: Yes oriented to person, Yes oriented to place and Yes oriented to time Skin: COMMON NORMALS: no rashes or lesions noted GENERAL SKIN EXAM: no rashes or lesions noted Course Vital Signs: Vital signs: Vital Signs Temperature 98.0 F 03/09/25 15:31 Pulse Rate 75 03/09/25 15:31 Respiratory Rate 16 03/09/25 15:31 Blood Pressure 120/70 03/09/25 15:31 Pulse Oximetry 90 03/09/25 15:31 Oxygen Delivery Me thod Nasal Cannula 03/09/25 15:31 Oxygen Flow Rate 3 03/09/25 15:31 MDM - SOB/Dyspnea Medical Decision Making Patient appears to have moderate can discharge/some underlying pneumonia as well as a low-grade fever. Given Lasix here cultured started on antibiotics discussed with hospitalist orders written. He still requiring increased oxygen supplementation to maintain normal oxygen saturations not having any chest pain. Reviewed findings with the patient. No evidence of acute coronary syndrome or pulmonary embolism at this time. Medical Records I reviewed the patient's medical records. Lab Data I reviewed the patient's lab results. 03/09/25 09:13 03/09/25 09:13 Labs/Radiology: Radiology Impressions Chest X-Ray 03/09/25 09:00 Impression: 1. Bilateral patchy lower lobe opacities which may represent atelectasis, pneumonia and/or pulmonary vascular congestion. 2. Cardiomegaly, atherosclerosis and hyperinflation. Liver Ultrasound 03/09/25 10:42 IMPRESSION: 1. Prior cholecystectomy. 2. Normal common bile duct. 3. Stable RIGHT renal cyst 2.3 cm. Laboratory Results WBC 9.14 10^3/uL (3.29-11.43) 03/09/25 09:13 RBC 4.28 10^6/uL (3.85-5.65) 03/09/25 09:13 Hgb 11.90 g/dL (11.27-16.99) 03/09/25 09:13 Hct 36.7 % (37-53) L 03/09/25 09:13 MCV 85.7 fl (82-101) 03/09/25 09:13 MCH 27.8 pg (27-33) 03/09/25 09:13 MCHC 32.4 g/dL (30-55) 03/09/25 09:13 RDW 17.0 % (12.1-15.1) H 03/09/25 09:13 Plt Count 149 10^3/cmm (157-399) L 03/09/25 09:13 MPV 9.7 fL (7.4-10.4) 03/09/25 09:13 Neut % (Auto) 88.8 % 03/09/25 09:13 Lymph % (Auto) 3.4 % 03/09/25 09:13 [place] % (Auto) 6.9 % 03/09/25 09:13 Eos % (Auto) 0.0 % 03/09/25 09:13 Baso % (Auto) 0.2 % 03/09/25 09:13 Neut # (Auto) 8.12 10^3/uL (1.8-7.7) H 03/09/25 09:13 Lymph # (Auto) 0.3 10^3/uL (0.8-4.8) L 03/09/25 09:13 [place] # (Auto) 0.6 10^3/uL (0.2-0.9) 03/09/25 09:13 Eos # (Auto) 0.0 10^3/uL (0.0-0.8) 03/09/25 09:13 Baso # (Auto) 0.0 10^3/uL (0.0-0.1) 03/09/25 09:13 Nucleated RBC % (auto) 0 % 03/09/25 09:13 Nucleated RBCs # 0.0 /100WBC 03/09/25 09:13 Sodium 133 mmol/L (136-145) L 03/09/25 09:13 Potassium 4.0 mmol/L (3.5-5.1) 03/09/25 09:13 Chloride 98 mmol/L (98-107) 03/09/25 09:13 Carbon Dioxide 20 mmol/L (22-29) L 03/09/25 09:13 Anion Gap 19.0 (5-19) 03/09/25 09:13 BUN 11 mg/dL (8-23) 03/09/25 09:13 Creatinine 0.7 mg/dL (0.7-1.2) 03/09/25 09:13 GFR Calculation 111.5 mL/min (90-130) 03/09/25 09:13 Glucose 135 mg/dL (65-115) H 03/09/25 09:13 Calculated Osmolality 277 mOsm/kg (285-295) L 03/09/25 09:13 Lactic Acid 1.3 mmol/L (0.5-2.2) 03/09/25 09:47 Calcium 8.2 mg/dL (8.5-10.5) L 03/09/25 09:13 Total Bilirubin 3.1 mg/dL (0.15-1.2) H 03/09/25 09:13 AST 11 U/L (0-40) 03/09/25 09:13 ALT 8 U/L (0-41) 03/09/25 09:13 Alkaline Phosphatase 82 U/L (40-130) 03/09/25 09:13 Troponin T Baseline 23 ng/L (0-15) H 03/09/25 09:13 Troponin T 120 Minute 23.56 ng/L (0-15) H 03/09/25 10:54 Delta Troponin T 0.56 ABS# (0-10) 03/09/25 10:54 NT-Pro-B Natriuret Pep 7072 pg/mL (0-125) H 03/09/25 09:13 Total Protein 6.3 g/dL (6.6-8.7) L 03/09/25 09:13 Albumin 3.8 g/dL (3.5-5.2) 03/09/25 09:13 Globulin 2.5 g/dL (1.3-4.6) 03/09/25 09:13 Procalcitonin 2.46 ng/mL (0-0.5) H 03/09/25 09:13 Digoxin 1.2 ng/mL (0.6-1.2) 03/09/25 09:13 All radiology interpretation(s) finalized by discharge EKG Data EKG 1: Interpretation: EKG 03/09/2025 844 atrial fibrillation with PVCs rate of 108 QTc 506. Rate related changes. EKG compared to 03/01/2025. No acute ST elevation. EKG 2: Interpretation: EKG 03/09/2025 1055 atrial fibrillation rate of 75 QTc 430 patient has right bundle branch block no acute ST changes noted EKG compared to earlier today rate improved Discharge Plan Discharge Patient Disposition: Admitted As Inpatient Admit Provider: Tam Ritchei Clinical Impression: Atrial fibrillation, Atrial fibrillation with RVR Community acquired pneumonia Qualifiers: Laterality: unspecified laterality Qualified Code(s): J18.9 - Pneumonia, unspecified organism COPD (chronic obstructive pulmonary disease) Qualifiers: COPD type: emphysema Emphysema type: centrilobular Qualified Code(s): J43.2 - Centrilobular emphysema Congestive heart failure Qualifiers: Heart failure type: systolic Heart failure chronicity: acute on chronic Qualified Code(s): I50.23 - Acute on chronic systolic (congestive) heart failure Condition: Stable 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 of Care Code ED Candy Attendant for Kevin Arceo
[2025-03-09 11:25] LABS: Troponin 5 2HR 23.56 ng/L (0-15); Troponin 5 2HR Delta 0.56 ABS# (0-10)
[2025-03-09] MEDS: FUROsemide 10 mg/mL SDV 10mL 60 MG IVP (11:39)
[2025-03-09] MEDS: cefTRIAXone 1,000 mg SDV 1000 MG IVP (12:04)
--- NOTE | 2025-03-09 13:11 | PM.HP ---
Providers/Chief Complaint Admitting Physician: Tam Ritchie Primary Care Provider: PATO Hernandez Chief Complaint: SOB History of Present Illness Gabino Jones Sr is a 69 year old gentleman with a history of heart failure, hypertension, atrial fibrillation, gastroesophageal reflux disease, hyperlipidemia, hypothyroidism, and chronic obstructive pulmonary disease presenting with shortness of breath. Recently hospitalized in January for a chronic obstructive pulmonary disease exacerbation, complicated by atrial fibrillation with rapid ventricular response; discharged on home oxygen. Reports inability to use home oxygen recently due to living in a camper without electricity; uses oxygen at work and via delivered tanks at home but ran out of one tank during a move to a new apartment with power. Reports orthopnea and minimally productive cough. Noted hemoptysis for approximately four days, with dark red and light red blood, occurring almost every time he coughed. States this has happened before with prior pneumonia. Completed prior antibiotics; felt only slight improvement before symptoms recurred. Endorses chest heaviness but denies typical cardiac chest pain. Chronic lower extremity swelling. Sometimes has night sweats. No history of intravenous drug use, alcohol, or other illicit drugs. No incarceration. Travel history includes the [facility]; denies prior tuberculosis diagnosis. Nausea with some vomiting over the last day; emesis initially food contents, then fluids; did not check for coffee-ground appearance. Reports intermittent leg tightness/pain; recently had a vascular stent placed in one leg for peripheral artery disease and is scheduled for a procedure on the other leg. No epistaxis. Sleeps with about three pillows and wakes up coughing at night. EMS reportedly found oxygen saturation of 88% on room air; started on 3 L nasal cannula. In the emergency department: low-grade temperature 99.3?F, initial pulse 110?113 then 70, blood pressure 116/46, oxygen saturation 95% on 3 L nasal cannula. Laboratory results: complete blood count with normal white blood cell count and hemoglobin; mild thrombocytopenia at 149. Comprehensive metabolic panel notable for sodium 133, bicarbonate 20, anion gap 19, blood urea nitrogen 11, creatinine 0.7, glucose 135, lactate 1.3, calcium 8.2, total bilirubin 3.1; aspartate aminotransferase, alanine aminotransferase, and alkaline phosphatase normal. NT-proBNP 7000. Procalcitonin 2.46. Additional reported values include [Unclear] ?Baseline component 0.3? and [Unclear] ?T-RCH component 23.? Chest X-ray: bilateral patchy lower lobe opacities which may represent atelectasis, pneumonia, and/or pulmonary vascular congestion; cardiomegaly, atherosclerosis, and hyperinflation. Liver ultrasound: status post cholecystectomy, normal common bile duct, stable right renal cyst 2.3 cm. Electrocardiogram: atrial fibrillation and right bundle branch block. Review of Systems Const: Denies: fever(s), chills, body aches or malaise ENMT: Denies: throat pain Card: Reports: edema and orthopnea; Denies: chest pain, pre-syncope or dyspnea on exertion Resp: Reports: dyspnea, productive cough, change in phlegm color and hemoptysis GI: Denies: abdominal pain, nausea, vomiting, diarrhea, constipation, hematochezia or melena : Denies: flank pain, difficulty urinating, urinary frequency or hematuria Musc: Denies: back pain, joint swelling or joint redness Skin/Breast: Denies: rash or new lesions Neuro: Denies: headache(s) or confusion Medications/Allergies Home Medications ?Medication ?Instructions ?Recorded ?Confirmed ?Last Taken ?Type apixaban 5 mg tablet (Eliquis) 5 mg PO BID #60 tabs 10/16/19 03/09/25 03/08/25 Rx furosemide 40 mg tablet (Lasix) 40 mg PO QAM 03/28/21 03/09/25 03/08/25 History potassium chloride 20 mEq 20 meq PO QAM 03/28/21 03/09/25 03/08/25 History tablet,extended release albuterol sulfate 90 mcg/actuation 2 inh inhalation Q4H PRN shortness 07/27/22 03/09/25 09/14/24 Rx aerosol inhaler of breath or wheezing #18 grams tamsulosin 0.4 mg capsule (Flomax) 0.4 mg PO BID 02/25/23 03/09/25 03/08/25 History loratadine 10 mg tablet 10 mg PO QAM 05/15/23 03/09/25 03/08/25 History digoxin 250 mcg (0.25 mg) tablet 250 mcg PO QAM 08/04/23 03/09/25 03/09/25 09:00 History nitroglycerin 0.4 mg sublingual 0.4 mg sublingual Q5M PRN Chest 08/04/23 03/09/25 03/15/24 History tablet (Nitrostat) Pain blood-glucose meter (Blood Glucose #1 ea 05/13/24 03/09/25 Unknown Rx Monitoring kit) lancets #100 ea 05/13/24 03/09/25 Unknown Rx pen needle, diabetic 32 gauge x #50 ea 05/13/24 03/09/25 Unknown Rx 1/4 (BD Ultra-Fine Micro Pen Needle) levothyroxine 125 mcg tablet 125 mcg PO QAM 07/09/24 03/09/25 03/08/25 History diclofenac sodium 1 % topical gel 4 g topical QID PRN joint pain 08/24/24 03/09/25 Unknown Rx #100 grams insulin glargine 100 unit/mL (3 10 unit (0.1 mL) SUBCUT DAILY #15 09/14/24 03/09/25 03/08/25 Rx mL) subcutaneous pen (Lantus mL Solostar U-100 Insulin) fluticasone 100 mcg-salmeterol 50 1 inh inhalation BEDTIME 09/15/24 03/09/25 03/08/25 History mcg/dose blistr powdr for inhalation (Advair Diskus) folic acid 1 mg tablet 1 mg PO DAILY #30 tabs 12/11/24 03/09/25 03/08/25 Rx albuterol sulfate 2.5 mg/3 mL 2.5 mg inhalation Q6H PRN 01/28/25 03/09/25 02/28/25 History (0.083 %) solution for nebulization Shortness Of Breath aspirin 81 mg tablet,delayed 81 mg PO DAILY 01/28/25 03/09/25 03/08/25 History release atorvastatin 20 mg tablet 10 mg PO BEDTIME 01/28/25 03/09/25 03/08/25 History cholecalciferol (vitamin D3) 50 50 mcg PO DAILY 01/28/25 03/09/25 03/08/25 History mcg (2,000 unit) tablet (Vitamin D3) clopidogrel 75 mg tablet 75 mg PO DAILY 01/28/25 03/09/25 03/08/25 History gabapentin 100 mg capsule 200 mg PO TID 01/28/25 03/09/25 03/08/25 History metoprolol tartrate 25 mg tablet 37.5 mg PO BID 01/28/25 03/09/25 03/09/25 History sennosides 8.6 mg-docusate sodium 1 tab PO DAILY 01/28/25 03/09/25 03/08/25 History 50 mg tablet sertraline 100 mg tablet 100 mg PO QPM 01/28/25 03/09/25 03/08/25 History tiotropium bromide 2.5 2 puff inhalation DAILY 01/28/25 03/09/25 03/08/25 History mcg/actuation mist for inhalation (Spiriva Respimat) prednisone 20 mg tablet 60 mg (3 x 20 mg) PO DAILY #20 tabs 03/01/25 03/09/25 Unknown Rx calcium carbonate 500 mg PO BID 03/09/25 03/09/25 03/08/25 History cyanocobalamin (vitamin B-12) 100 100 mcg PO DAILY 03/09/25 03/09/25 03/08/25 08:00 History mcg tablet (Vitamin B-12) empagliflozin 25 mg tablet 12.5 mg PO DAILY 03/09/25 03/09/25 03/08/25 History (Jardiance) pantoprazole 40 mg tablet,delayed 40 mg PO BID 03/09/25 03/09/25 03/08/25 History release Allergies Allergy/AdvReac Type Severity Reaction Status Date / Time No Known Allergies Allergy Verified 01/25/25 11:15 PFSH Acute PFSH: Medical History Greater trochanteric bursitis of right hip Prostate cancer History of colon polyps Chronic anticoagulation eliquis, for afib Chronic respiratory failure with hypoxia Heart failure with preserved ejection fraction Coronary artery disease CHF (congestive heart failure) Last echocardiogram normal EF, grade 2/4 diastolic dysfunction October 2019 Hypertension Anemia Atrial fibrillation GERD (gastroesophageal reflux disease) Hypothyroidism Hyperlipidemia COPD (chronic obstructive pulmonary disease) Surgical History History of cataract surgery Left eye - 12/2022 H/O prostate biopsy S/P appendectomy S/P cholecystectomy History of colonoscopy (~04/2020) History of vasectomy History of knee surgery History of coronary artery bypass graft (03/2019) [address] [place] [address] Family History Father , IN HIS 50'S Lung disease tuberculosis Mother , AT AGE 63 CAD (coronary artery disease) Diabetes Hypertension Sister Cancer Denies family history of Clotting disorder Dementia Hyperlipidemia Psychiatric illness Chronic kidney disease (CKD) Suicide Anesthesia complication Bleeding disorder Stroke Social History Smoking and tobacco/nicotine status: never used tobacco/nicotine Quit status (tobacco/nicotine): has quit using Year quit tobacco: 2017 - PPD x 52 Years Alcohol intake: never Substance/Drug Use: never Lives independently: Yes Household members: none Marital status: Legally Current occupational status: employed and retired Do you think of yourself as: Straight/Heterosexual Current gender identity: Male Vitals/I&O/Wt Last Vital Signs Temp 99.3 F 03/09/25 08:37 Pulse 70 03/09/25 12:30 Resp 20 H 03/09/25 08:37 BP 116/46 03/09/25 12:30 Pulse Ox 95 03/09/25 12:30 O2 Del Method Room Air 03/09/25 12:30 O2 Flow Rate 3 03/09/25 12:00 Weight last 48 hrs Weight 91.172 kg Physical Exam Const: COMMON NORMALS: patient oriented x3 and alert GENERAL APPEARANCE: cooperative ORIENTATION/CONSCIOUSNESS: Yes awake HENMT: COMMON NORMALS: oropharynx normal Neck/C-Spine: COMMON NORMALS: negative for no JVD Resp: AUSCULTATION: rhonchi and wheezes Cardio: COMMON NORMALS: no JVD, regular rhythm, S1 normal heart sound present, S2 normal heart sound present and No murmurs present (Cardio) RHYTHM: regular rhythm HEART SOUNDS: S1 normal heart sound present and S2 normal heart sound present GI: COMMON NORMALS: Normal to inspection, nondistended, normoactive bowel sounds present, Soft to palpation and non-tender PALPATION: Yes Soft to palpation Extremity: COMMON NORMALS: no joint enlargement GENERAL: Yes edema (Trace) Neuro: COMMON NORMALS: patient oriented x3 and moves all extremities SENSORIUM/ORIENTATION: Yes alert Skin: COMMON NORMALS: no rashes or lesions noted GENERAL SKIN EXAM: no rashes or lesions noted Data 03/09/25 09:13 03/09/25 09:13 Micro: Microbiology 03/09/25 09:52 Blood Culture - Preliminary Blood SPECIMEN COLLECTED 03/09/25 09:47 Blood Culture - Preliminary Blood SPECIMEN COLLECTED A&P Assessment and plan 1. Acute exacerbation of chronic obstructive pulmonary disease: Presenting symptom in the context of COPD and recent pneumonia with hypoxemia requiring supplemental oxygen. Severe exacerbation of COPD with dyspnea, productive cough with yellow sputum as well as hemoptysis, rhonchi and wheezing on exam, hypoxia requiring 3 L of oxygen. With suspected community-acquired pneumonia versus residual changes from prior pneumonia. Possible aspiration pneumonia after vomiting. Treat COPD exacerbation, will give IV Solu-Medrol, monitor for risk of hypertension, hyperglycemia, gastritis, encephalopathy, empiric antibiotic coverage with ceftriaxone and azithromycin. Collect sputum culture. Obtain urine bacterial antigens. With recent hospitalization obtain MRSA PCR. May be at risk of hospital-acquired pneumonia. 2. Community acquired pneumonia: Recent pneumonia with only slight improvement after antibiotics; chest X-ray shows bilateral lower lobe opacities that may represent pneumonia among other possibilities. Reviewed vitals, CBC, CMP, troponin, chest x-ray, requesting influenza, RSV, COVID nasal swab. Collect on culture. Empiric antibiotic coverage with ceftriaxone azithromycin for now. Community-acquired pneumonia as suspected, possible residual changes from prior pneumonia, possible aspiration pneumonia and/or pneumonitis/chemical pneumonitis following vomiting. Will obtain ST evaluation. MBS. 3. Decompensated heart failure: Acute diastolic congestive heart failure with orthopnea, JVD, elevated NT proBNP. Known heart failure; NT-proBNP 7000; reports orthopnea and uses three pillows. IV diuresis with Lasix 40 mg IV daily, monitor intake and output. Monitor for risk of electrolyte deficiency, DILLON. Reassess chemistry. Reassess volume status. Complete troponin EKG series. Obtain TTE. 4. Hemoptysis: Coughing up blood for approximately four days; no epistaxis observed on exam. Anticipate related to lower respiratory infection, bronchitis, pneumonia, anticipate improvement with treatment. - Monitor hemoptysis. Instructed him to spit up into a container so that it can be assessed. - If bleeding worsens or does not resolve, consider bronchoscopy for further evaluation. Obtain TTE to assess mitral valve. Plan: Atrial fibrillation : Known atrial fibrillation; on apixaban; ECG shows atrial fibrillation and right bundle branch block. Continue anticoagulation with Eliquis. Hyponatremia : Sodium 133 on comprehensive metabolic panel. Reassess with diuresis. Repeat chemistry. Thrombocytopenia (mild) : Platelet count 149 on complete blood count. Repeat CBC. Hyperbilirubinemia (total bilirubin 3.1) : Total bilirubin 3.1 with normal AST, ALT, alkaline phosphatase. Reviewed right upper quadrant ultrasound. Peripheral artery disease : Leg stent placed; second procedure scheduled; chronic leg swelling reported. Follow-up : Outpatient reassessment requested after hospitalization for COPD/pneumonia and current hemoptysis. - Follow up with outpatient provider to reassess pneumonia/hemoptysis and overall status. PDMP PDMP Reviewed: Not Reviewed Attestations Medical Necessity Statement*: Place in observation for additional assessment management of severe exacerbation of COPD, community-acquired pneumonia, possible aspiration pneumonia, acute diastolic CHF. Diagnoses Acute exacerbation of chronic obstructive pulmonary disease J44.1 Community acquired pneumonia J18.9 Decompensated heart failure I50.9 Hemoptysis R04.2
--- NOTE | 2025-03-09 15:01 | ECG_ITS ---
[facility] Date: 2025-03-09 Pat Name: Gabino Jones Department: Room: 277 Gender: Male Dementia Program Director: : [id number] Requested By: Job Summers Order Number: [id number] Mick MD: Mathew Sanchez M.D. Measurements Intervals [place] Rate: 81 P: 0 CO: 0 QRS: 18 QRSD: 138 T: 32 QT: 431 QTc: 501 Interpretive Statements ATRIAL FIBRILLATION WITH ABERRANT CONDUCTION OR VENTRICULAR PREMATURE COMPLEXES INTRAVENTRICULAR CONDUCTION DELAY [130+ ms QRS DURATION] Compared to ECG 03/09/2025 10:55:31 Ventricular premature complex(es) now present Aberrant conduction of supraventricular beat(s) now present Intraventricular conduction delay now present Right bundle-branch block no longer present Electronically Signed On 03-09-2025 23:52:53 CDT by Mathew Sanchez M.D. [email or web address]
[2025-03-09 15:54] LABS: Troponin 5 6HR 19.17 ng/L (0-15)
[2025-03-09 16:01] LABS: Troponin 5 6HR Delta -3.83 ng/L (0-12)
[2025-03-09] MEDS: methylPREDNISolone sod succ 40 mg/mL INJ IVP ×2 (16:51→20:27)
[2025-03-09 17:50] LABS: Respiratory Syncytial Virus Ce NEGATIVE (Negative); SARS-CoV-2 PCR NEGATIVE (Negative)
[2025-03-09 18:25] LABS: MRSA PCR OZH (swab) NOT DETECTED (Negative)
[2025-03-09] MEDS: ATORVASTATIN 10 MG TABLET PO (20:28)
[2025-03-10] VITALS (10 sets, daily range): BP systolic 111–130; BP diastolic 52–63; PULSE 60–91; RESP 16–18; TEMP 36.4–36.7; O2SAT 84–98
[2025-03-10] MEDS: methylPREDNISolone sod succ 40 mg/mL INJ IVP ×2 (02:43→08:46)
[2025-03-10 04:42] LABS: Hematocrit 37.9 % (37-53); Hemoglobin 12.20 g/dL (11.27-16.99); Mean Corpuscular HGB Conc 32.2 g/dL (30-55); Mean Corpuscular Hemoglobin 28.1 pg (27-33); Mean Corpuscular Volume 87.3 fl (82-101); Nucleated Red Blood Cells % 0 %; Platelet Count 187 10^3/cmm (157-399); Red Blood Count 4.34 10^6/uL (3.85-5.65); White Blood Count 9.84 10^3/uL (3.29-11.43)
[2025-03-10] MEDS: insulin glargine 100 units/1 mL 10 UNIT SUBCUT (04:50)
[2025-03-10 05:05] LABS: Alanine Aminotransferase 8 U/L (0-41); Albumin Level 3.4 g/dL (3.5-5.2); Alkaline Phosphatase 72 U/L (40-130); Anion Gap 15.3 (5-19); Aspartate Amino Transferase 9 U/L (0-40); Blood Urea Nitrogen 28 mg/dL (8-23); Calcium 8.4 mg/dL (8.5-10.5); Carbon Dioxide 25 mmol/L (22-29); Chloride 102 mmol/L (98-107); Creatinine Clr Calc Pharmacy 78.0391; Globulin 3.3 g/dL (1.3-4.6); Glucose 218 mg/dL (65-115); Osmolality Calculated 298 mOsm/kg (285-295); Potassium 4.3 mmol/L (3.5-5.1); Sodium 138 mmol/L (136-145); Total Protein 6.7 g/dL (6.6-8.7)
[2025-03-10] MEDS: FUROsemide 10 mg/mL SDV 4mL 40 MG IVP (06:16)
--- OUTSIDE RECORDS SUMMARY | 2025-03-10 07:18 | XMS_ITS | Clinical Summary ---
Author Organization Madeleine Jarrett Address [address] [address] Phone Care Team Providers Care Armature Balancer Name Role Phone Unavailable Primary Care Provider [...] Type Department Care Team Description 03/04/2025 Telephone [facility] Vascular Surgery [address] [phone] Kaden Mayer MD Appointment Notification 03/04/2025 Telephone [facility] Vascular Surgery [address] [phone] Kaden Mayer MD Follow Up 03/03/2025 3:45 PM CDT Office Visit [facility] Vascular Surgery [address] [phone] Kaden Mayer MD Encounter for pre-operative examination (Primary Dx) 03/03/2025 2:30 PM CDT Ancillary Procedure [facility] Vascular Lab and Vein Center- [address] [phone] Kaden Mayer MD PAD (peripheral artery disease) 03/03/2025 Orders Only [facility] Vascular Surgery [address] [phone] Tiara Sutton RN 03/02/2025 11:10 AM CDT Office Visit [facility] Ophthalmology [place] [address] [phone] Hannah Powell MD 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); Fuchs' corneal dystrophy of right eye; Pseudophakia of both eyes 01/21/2025 Telephone [facility] Ophthalmology [place] [address] [phone] Hannah Powell MD Information 01/18/2025 2:57 PM CDT Anesthesia Event [facility] Operating Room [address] [place] [address] Ronnie Camejo DO 01/18/2025 1:12 PM CDT - 01/18/2025 2:33 PM CDT Surgery [facility] Operating Room [address] [place] [phone] Kaden Mayer MD FEMORAL ANGIOGRAPHY WITH INTERVENTION 01/18/2025 10:50 AM CDT - 01/19/2025 12:40 PM CDT Hospital Encounter [facility] 3A Surgical [address] [place] [phone] Kaden Mayer MD Peripheral vascular disease, unspecified Discharge Disposition: Home or Self Care 01/18/2025 6:52 AM CDT - 01/18/2025 11:59 PM CDT Hospital Encounter [facility] Interventional Radiology OR [address] [phone] Kaden Mayer MD Discharge Disposition: Home or Self Care 01/12/2025 External Device Data STL ABSTRACTION Provider, Abstract 01/12/2025 External Device Data STL ABSTRACTION Provider, Abstract 01/11/[address] [phone] Kaden Mayer MD Follow Up 01/06/2025 2:45 PM CDT - 01/06/2025 11:59 PM CDT Hospital Encounter [facility] Pre Admission Testing [address] [phone] Kaden Mayer MD Discharge Disposition: Home or Self Care 01/06/2025 1:00 PM CDT Office Visit [facility] Vascular Surgery [address] [phone] Kaden Mayer MD PAD (peripheral artery disease) (Primary Dx); Encounter for preadmission testing 01/06/2025 Telephone [facility] Vascular [address] [phone] Kaden Mayer MD Surgery Talk 01/04/2025 Telephone [facility] Vascular Surgery [address] [place] [phone] Kaden Mayer MD Appointment Verification 12/22/2024 External Device Data STL ABSTRACTION Provider, Abstract 12/22/2024 External Device Data STL ABSTRACTION Provider, Abstract 12/21/2024 Telephone [facility] Vascular Surgery [address] [phone] Kaden Mayer MD Appointment Notification 12/17/2024 Orders Only [facility] Vascular Surgery [address] [phone] Provider, Abstract from Last 3 Months Immunizations Immunization Administration Dates Next Due (ADACEL/BOOSTRIX)(10 YR UP) TDAP VACCINE, 0.5ML, IM 11/07/2010 (JOSÉ MIGUEL) COVID-19 VACCINE - EMERGENCY USE AUTHORIZATION, AD26,COV2S(PF) 0.5 ML IM SUSP 04/07/2021 (PNEUMOVAX 23)(50 YRS UP) PN EUMOCOCCAL POLYSACCHARIDE (PPV23) 0.5 ML, IM 03/17/2019,03/22/2018,01/20/2018 (PREVNAR 20)(6 WKS UP) PNEUM OCOCCAL CONJUGATE VACCINE 20-VALENT (PCV20), POLYSACCHARIDE DIQ057 CONJUGATE, ADJUVANT 0.5 ML (PF) IM 02/06/2022 [...] 03/03/2025 3:39 PM CDT Plan of Treatment Scheduled Procedures Name Priority Associated Diagnoses Date/Ti me FEMORAL ANGIOGRAPHY WITH INTERVENTION Peripheral vascular disease, unspecified 03/11/2025 9:08 AM CDT Health Maintenance Due Date Last Done Comments DIABETES ANNUAL FOOT EXAM 1972 DIABETES MICROALBUMIN ANNUAL SCREEN 1972 LDL CHOLESTEROL ANNUAL 1972 Traditional Medicare (ACO) A nnual Wellness Visit 1973 COLORECTAL SCREENING 08/23/1999 Colorectal Cancer Screening 08/23/1999 FIT-DNA Q 3 years 08/23/1999 FIT/FOBT Q 1 year 08/23/1999 Flex Sig/CT Colonography Q 5 years 08/23/1999 Lung Cancer Screening 2004 RSV VACCINE (60+ or ) (1 - Risk 60-74 years 1-dose series) 2014 Abdominal Aortic Aneurysm (A AA) Screening 08/23/2019 Medicare Advantage (MS) Preventative Visit/Annual Wellness Visit 06/03/2024 INFLUENZA VACCINE (#1) 2025 , 03/06/2021, 04/05/2020, Additional history exists COVID-19 Vaccine ( - 2024-2 6 season) 2025 02/06/2022, 04/07/2021, [...] Leann Grimes [employer] Implanted Type Area Supervisor Carbon Paper Coating Device Identifier Shelf Expiration Date Model / Serial / Lot Dev Closure Angioseal 6fr Vip [id number] - [id number] Implanted:Qty : 1 on 01/18/2025 by Kaden Mayer MD at [facility] Closure Device Right: Groin TERUMO- CARDIOVASC SYS [id number] 09/21/2025 [id number] / / [id number] Stent Vasc Innova [id number] 30 - [id number] Implanted:Qty : 1 on 01/18/2025 by Kaden Mayer MD at [facility] Stent Left: Superficial Femoral Artery [employer]VENT[employer] [id number] 08/05/2029 [id number] / / [id number] Procedures Procedure Name Priority Date/Time Associated [...] 3:08 PM CDT Encounter for preadmission testing IA DUP/COPY PATIENT'S RECORDS Routine 12/17/2024 11:39 AM CDT from Last 3 Months Results * US DUPLEX ARTERIAL LEG LEFT (03/03/2025 3:51 PM CDT) Anatomical Region Laterality Modality Lower Extremity Ultrasound 03/03/2025 3:05 PM CDT Narrative 03/04/2025 2:48 PM CDT [facility] Vascular Lab and Vein Center [address] [place] [address] [place] [address] Noninvasive Vascular Lab Limited Lower Extremity Arterial Duplex Study Patient: Gabino Jones Study ID: US DUPLEX ARTERI Gender: M : 1955 Age: 69 Room: Height: 162.6cm Weight: 92kg BSA: 2.08m^2 Pt status: Outpatient Study Date: 03/03/2025 Study Time: 03:05:58 PM BSA: 2.08m^2 Ordering: Kaden Mayer Interpreting:Kaden Mayer Athletics Teacher: CDP Indications: V. History: Risk factors: Prior [...] - Max brachial pressure (sys): 164mm Hg [facility] is accredited with the Intersocietal Commission for the Accreditation of Vascular Laboratories (ICAVL) Prepared and Electronically Authenticated Kaden Mayer Confirmed 03/04/2025 14:48 Procedure Note Kaden Mayer MD - 03/04/2025 [facility] Vascular Lab and Vein Center [address] [place] [address] Noninvasive Vascular Lab Limited Lower Extremity Arterial Duplex Study Patient: Gabino Jones Study ID: US DUPLEX ARTERI Gender: M : 1955 Age: 69 Room: Height: 162.6cm Weight: 92kg BSA: 2.08m^2 Pt status: Outpatient Study Date: 03/03/2025 Study Time: 03:05:58 PM BSA: 2.08m^2 Ordering: Kaden Mayer Interpreting:Kaden Mayer Athletics Teacher: CDP Indications: V. History: Risk factors: Prior [...] - Max brachial pressure (sys): 164mm Hg [facility] is accredited withthe Intersocietal Commission for the Accreditation of Vascular Laboratories (ICAVL) Prepared and Electronically Authenticated Kaden Mayer Confirmed 03/04/2025 14:48 Kaden Mayer MD US ORDERABLES Final Result * OCT, RETINA - OU - BOTH EYES (03/02/2025 12:39 PM CDT) Narrative [facility] [place] OPHTHALMOLOGY ORDERS - 03/02/2025 1:14 PM CDT Optical Coherence Tomography ordered to evaluate the status of the macula: RIGHT EYE: Focal outer retinal loss. EZ/IZ disruption. Retinal thinning. Focal RPE irregularity. LEFT EYE: There is no intraretinal fluid or Subretinal fluid. A trace Epiretinal membrane is present Hannah Powell MD OPHTH TOMOGRAPHY Final Result [facility] [place] OPHTHALMOLOGY ORDERS * TELEMETRY REPORT (01/20/2025 2:08 AM CDT) us Provider Scanning ECG ORDERABLES Final Result * (ABNORMAL) CBC WITH DIFFERENTIAL (01/19/2025 5:46 AM CDT) Only the most recent of2 resultswithin the time period is included. WBC 3.7(L) 4.8 - 10.8 K/uL 01/19/2025 6:14 AM CDT [facility] RBC 4.58(L) 4.60 - 6.20 M/uL 01/19/2025 6:14 AM T [facility] HEMOGLOBIN 12.5(L) 14.0 - 18.0 g/dL 01/19/2025 6:14 AM [facility] HEMATOCRIT 39.0(L) 41.0 - 53.0 % 01/19/2025 6:14 AM [facility] MCV 85.2 84.0 - 103.0 fL 01/19/2025 6:14 AM [facility] MCH 27.3 27.0 - 34.0 pg 01/19/2025 6:14 AM [facility] MCHC 32.1 30.0 - 35.0 g/dL 01/19/2025 6:14 AM [facility] PLATELETS 133(L) 140 - 440 K/uL 01/19/2025 6:14 AM [facility] MPV 9.7 8.9 - 12.8 fL 01/19/2025 6:14 AM [facility] RDW 17.5(H) 11.0 - 14.5 % 01/19/2025 6:14 AM [facility] RDW-STDEV 54.1(H) 37.0 - 54.0 fL 01/19/2025 6:14 AM [facility] NEUTROPHILS 69 42 - 75 % 01/19/2025 6:14 AM T [facility] LYMPHOCYTES 17(L) 24 - 44 % 01/19/2025 6:14 AM CDT [facility] MONOCYTES 12(H) 2 - 10 % 01/19/2025 6:14 AM CDT [facility] EOSINOPHILS 2 0 - 7 % 01/19/2025 6:14 AM CDT [facility] BASOPHILS 1 0 - 1 % 01/19/2025 6:14 AM CDT [facility] IMMATURE GRANULOCYTES 0 0 - 2 % 01/19/2025 6:14 AM CDT [facility] NEUTROPHIL ABSOLUTE 2.58 2.00 - 8.00 K/uL 01/19/2025 6:14 AM CDT [facility] LYMPHOCYTE ABSOLUTE 0.63(L) 1.20 - 4.00 K/uL 01/19/2025 6:14 AM CDT [facility] MONOCYTE ABSOLUTE 0.43 0.10 - 0.60 K/uL 01/19/2025 6:14 AM CDT [facility] EOSINOPHIL ABSOLUTE 0.06 0.00 - 0.70 K/uL 01/19/2025 6:14 AM CDT [facility] BASOPHILS ABSOLUTE 0.03 0.00 - 0.20 K/uL 01/19/2025 6:14 AM CDT [facility] IMMATURE GRANULOCYTES ABSOLUTE 0.01 0.00 - 0.10 K/uL 01/19/2025 6:14 AM T [facility] SMEAR REVIEWED: NA - Not Applicable 01/19/2025 6:14 AM T [facility] Blood Venipuncture / Unknown 01/19/2025 5:46 AM CDT 01/19/2025 6:08 AM CDT us Kaden Mayer MD HEMATOLOGY ORDERABLES Final Re sult [facility] CLIA # [id number] [address] [address] [place] [address] * (ABNORMAL) POC GLUCOSE (01/18/2025 3:58 PM CDT) Only the most recent of2 resultswithin the time period is included. GLUCOSE POC 108(H) 74 - 99 mg/dL 01/18/2025 3:58 PM CDT [facility] SPECIMEN SOURCE, GLUCOSE POC Capillary 01/18/2025 3:58 PM CDT [facility] Blood, whole 01/18/2025 3:58 PM CDT 01/18/2025 4:05 PM CDT us Kaden Mayer MD POINT OF CARE TESTING Final Re sult Performing Organization Address [facility] Co de Phone Number [facility] CLIA # [id number] [address] [id number] * IR FLUORO OR OTHER (01/18/2025 3:52 PM CDT) Narrative 01/18/2025 3:52 PM CDT Order Auto Finalized. Please see associated Operative Report/Progress Note/Procedure Note from the same date. us Kaedn Mayer MD IR ORDERABLES Final Result * (ABNORMAL) POC ACTIVATED CLOTTING TIME (01/18/2025 3:30 PM CDT) ACTIVATED CLOTTING TIME POC 285(H) 116 - 140 sec 01/18/2025 3:30 PM CDT [facility] Blood 01/18/2025 3:30 PM CDT 01/19/2025 6:51 PM CDT us Kaden Mayer MD POINT OF CARE TESTING Final Re sult Performing Organization Address [facility]/ZIP Co de Phone Number [facility] CLIA # [id number] [address] [place] [address] * VERIFICATION BLOOD GROUP (01/06/2025 3:35 PM CDT) Pathologist Ari ABO GROUP A 01/06/2025 6:11 PM CDT [facility] [place] RH (D) TYPE Positive 01/06/2025 6:11 PM CDT [facility] [place] Blood Venipuncture / Unknown 01/06/2025 3:35 PM CDT 01/06/2025 5:14 PM CDT us Kaden Mayer MD BLOOD BANK ORDERABLES Final Re sult Performing Organization Address City/[facility]/ZIP Co de Phone Number [facility] [place] CLIA#[id number] [address] [place] [address], * RED BLOOD CELL ANTIGEN TYPE (01/06/2025 3:15 PM CDT) Pathologist Ari JKA RED BLOOD CELL ANTIGEN Negative 01/06/2025 11:36 PM CDT [facility] [place] E RED BLOOD CELL ANTIGEN Negative 01/06/2025 11:36 PM CDT [facility] [place] LITTLE C RED BLOOD CELL ANTIGEN Negative 01/06/2025 11:36 PM CDT [facility] [place] Blood Venipuncture / Unknown 01/06/2025 3:15 PM CDT 01/06/2025 5:14 PM CDT us Kaden Mayer MD BLOOD BANK ORDERABLES Edited R esult - Final [facility] [employer] [facility] [place] CLIA#[id number] [address] [place] [address], * BLOOD BANK AB IDENT (01/06/2025 3:15 PM CDT) Pathologist Ari ANTIBODY #1 Anti-Jka 01/06/2025 11:45 PM CDT [facility] [place] ANTIBODY #2 Anti-c 01/06/2025 11:45 PM CDT [facility] Blood Venipuncture / Unknown 01/06/2025 3:15 PM CDT 01/06/2025 5:14 PM CDT us Kaden Mayer MD BLOOD BANK ORDERABLES Final Re sult Performing Organization Address [facility] de Phone Number [facility] CLIA#[id number] [address] [place] [address], * (ABNORMAL) PROTIME-INR (01/06/2025 3:15 PM CDT) PROTIME 15.1(H) 12.7 - 14.9 Seconds 01/06/2025 5:39 PM CDT [facility] INR 1.1 0.8 - 1.2 01/06/2025 5:39 PM CDT [facility] Blood Venipuncture / Unknown 01/06/2025 3:15 PM CDT 01/06/2025 5:21 PM CDT Narrative [facility] - 01/06/2025 5:39 PM CDT Expected Values for INR: DVT/PE Goal INR 2.5; range 2.0 - 3.0 Valve Replacement Tissue Goal INR 2.5; range 2.0 - 3.0 Valve Replacement Mechanical Goal INR 3.0; range 2.5 - 3.5 POST-HI Goal INR 2.5; range 2.0 - 3.0 or Goal INR 3.0; range 2.5 - 3.5 Atrial Fibrillation Goal INR 2.5; range 2.0 - 3.0 Ischemic Stroke Goal INR 2.5; range 2.0 - 3.0 us Kaden Mayer MD HEMATOLOGY ORDERABLES Final Re sult Performing Organization Address [facility] Co de Phone Number [facility] CLIA # [id number] [address] [place] [address] * TYPE AND SCREEN (01/06/2025 3:15 PM CDT) ABO GROUP A 01/06/2025 11:44 PM CDT [facility] [place] RH (D) TYPE Positive 01/06/2025 11:44 PM CDT [facility] [place] ANTIBODY SCREEN Positive 01/06/2025 11:44 PM CDT [facility] [place] Blood Venipuncture / Unknown 01/06/2025 3:15 PM CDT 01/06/2025 5:14 PM CDT us Kaden Mayer MD BLOOD BANK ORDERABLES Edited R essariah - Final [facility] CLIA#[id number] [address] [place] [address], * (ABNORMAL) BASIC METABOLIC PANEL (01/06/2025 3:15 PM CDT) Pathologist [facility] SODIUM 142 136 - 145 mmol/L 01/06/2025 5:41 PM CDT [facility] POTASSIUM 4.1 3.5 - 5.1 mmol/L 01/06/2025 5:41 PM CDT [facility] CHLORIDE 106 98 - 107 mmol/L 01/06/2025 5:41 PM CDT [facility] CO2 23 22 - 29 mmol/L 01/06/2025 5:41 PM CDT [facility] CALCIUM 8.9 8.8 - 10.2 mg/dL 01/06/2025 5:41 PM CDT [facility] BUN 15 8 - 23 mg/dL 01/06/2025 5:41 PM CDT [facility] CREATININE 1.04 0.67 - 1.17 mg/dL 01/06/2025 5:41 PM CDT [facility] Comment:The GFR result is no t clinically significant on patients <18 or >70 years of age. GLUCOSE 135(H) 74 - 99 mg/dL 01/06/2025 5:41 PM CDT [facility] GFR >60 mL/min/1.7 3 sq meter 01/06/2025 5:41 PM CDT [facility] Comment:eGFR calculated with 2020 CKD-EPI equation. Vegetarian diet, extremely high or low muscle mass, and may affect results. Cystatin C with Glomerular Filtration Rate is a suitable alternative for these patients. 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: LIN : 1955 Requested By: Order Number: [id number] Reading MD: Karla Francis Measurements Intervals [place] Rate: 91 P: 0 IA: 0 QRS: 35 QRSD: 126 T: 54 QT: 384 QTc: 472 Interpretive Statements Atrial fibrillation Right bundle branch block Possible Inferior infarct, age undetermined Abnormal ECG Electronically Signed On 01-06-2025 20:21:31 CDT by Karla Francis Procedure Note Karla Francis, DO - 01/06/[address] [place] [address] Test Date: 2025-01-06 Pat Name: GABINO JONES Department: 12 Room: Gender: Male 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: LIN : 1955 Requested By: Order Number: [id number] Reading MD: Karla Francis Measurements Intervals [place] Rate: 91 P: 0 IA: 0 QRS: 35 QRSD: 126 T: 54 QT: 384 QTc: 472 Interpretive Statements Atrial fibrillation Right bundle branch block Possible Inferior infarct, age undetermined Abnormal ECG Electronically Signed On 01-06-2025 20:21:31 CDT by Karla Francis us Kaden Mayer MD ECG ORDERABLES Final Result INTERFACE SYSTEM Refer to clinic/hospital department * IA DUP/COPY PATIENT'S RECORDS (12/17/2024 11:39 AM CDT) us Abstract Provider IA - DENTAL Final Result from Last 3 Months Additional Health Concerns Active Problems Noted Date Diagnosed Date Autogenerated Problem 03/04/2025 Insurance MEDICARE PART A HOSPITAL ONLY [place] [address] [place] [address] [employer] * Guarantor: JOSEPH[facility] Account Type Relation to Patient Date of Phone Billing Address Corporate Other DEFAULT ADDRESS [address] [employer] * Guarantor: [facility] Account Type Relation to Patient Date of Phone Billing Address Corporate Other DEFAULT ADDRESS [place] [id number] [place] [address] [employer] Advance Directives For more information, please contact: [phone] * Full Code (Latest Code Status on File) Date Activated Date Inactivated Comments 09/05/2022 11:49 PM 09/07/2022 1:06 PM
--- OUTSIDE RECORDS SUMMARY | 2025-03-10 07:18 | XMS_ITS | Encounter Summary ---
Author Organization [facility] Address [address] [place] [address] Care Team Providers Care Customer Supply Chain Analyst Name Role Phone Unavailable Primary Care Provider Unavailabl e Encounter Details Date Type Department Care Team (Late st Contact Info) Description 03/03/2025 Orders Only [facility] Vascular Surgery [place] [address] [place] [address] Tiara Sutton RN Social History [...] as of this encounter Plan of Treatment Scheduled Procedures Name Priority [...]
--- OUTSIDE RECORDS SUMMARY | 2025-03-10 07:18 | XMS_ITS | Encounter Summary ---
Author Organization [facility] Address [address] [place] [address] Care Team Providers Care Clerical Administrative Assistant Name Role Phone Unavailable Primary Care Provider Unavailabl e Reason for Visit * Reason Onset Date Comments Appointment Notification 03/04/2025 Encounter Details Date Type Department Care Team (Late st Contact Info) Description 03/04/2025 Telephone [facility] Vascular Surgery [place] [address] [place] [address] Kaden Mayer MD [address] [facility] [address] [place] [address] Appointment Notification Social History Tobacco Use Types Packs/Day Years [...] encounter Miscellaneous Notes * Telephone Encounter - Melisa Zelaya 03/09/2025 12:40 PM CDT Provider: Moreno Patient calls to reschedule procedure on 03/11/2025 as he is hospitalized in [place]. PT also needs to cancel Hospitality room for 03/10/2025. PT is also scheduled for 6 week check on 04/14/2025 [address] and [address] 15[address]. PT does want to RS procedure when he gets out of hospital. * Telephone Encounter - Leann Grimes - 03/04/2025 9:44 AM CDT Tiara RN spoke to patient and scheduled surgery for 03.11.25 arrival [address] Mayer documented in this encounter Plan of Treatment Scheduled Procedures [...]
--- OUTSIDE RECORDS SUMMARY | 2025-03-10 07:19 | XMS_ITS | Patient Health Record ---
Author Organization [facility] Address [address] [place] [address] Care Team Providers Care Fiber Optic Technician Name Role Phone Aryan Taylor Unavailable [phone] Sameera Patel Unavailable Allergies No Known Allergies Results Component Value Reference Range Notes UA Without Micro-[place], [place] - [id number] Reviewed date:07/07/2024 02:24:04 PM Interpretation: Performing Lab: Notes/Report: Glucose 2+ Bili 1+ Ketones 0 Sp [place] 1.020 Blood 0 pH 6.0 Protein +- Urobili +- Nitrites 0 Leukocytes 0 Reason For Referral No Information Medications Medication SIG (Take, Route, Frequency, Duration) Notes Start Date End Date Status 2 ML digoxin 0.25 MG/ML Injection *Reorder from [facility] for eRx and Interaction Alerts* 01/30/2023 Active albuterol 0.417 MG/ML Inhalation Solution INTRAPULMONARY *Reorder from [facility] for eRx and Interaction Alerts* 01/30/2023 Active Loratadine 10 MG Oral Tablet ORAL *Reorder from [facility] for eRx and Interaction Alerts* 01/30/2023 Active Atorvastatin Calcium 10 MG Tablet Oral 01/30/2023 Active predniSONE 5 MG Oral Tablet ORAL *Reorder from [facility] for eRx and Interaction Alerts* 01/30/2023 Active 60 ACTUAT olodaterol 0.0025 MG/ACTUAT Inhalation [place] [Striverdi] INTRAPULMONARY *Reorder from [facility] for eRx and Interaction Alerts* 01/30/2023 Active aspirin 325 MG Delayed Release Oral Tablet ORAL *Reorder from [facility] for eRx and Interaction Alerts* 01/30/2023 Active Potassium Chloride 20 MEQ Powder for Oral Solution ORAL *Reorder from [facility] for eRx and Interaction Alerts* 01/30/2023 Active apixaban 5 MG Oral Tablet [Eliquis] ORAL *Reorder from [facility] for eRx and Interaction Alerts* 01/30/2023 Active Omeprazole Magnesium 20 MG Tablet Delayed Release Oral 01/30/2023 Active Nitroglycerin 0.4 MG Tablet Sublingual Sublingual 01/30/2023 Active Furosemide 40 MG Oral Tablet ORAL *Reorder from [facility] for eRx and Interaction Alerts* 01/30/2023 Active Abiraterone Acetate 250 MG Oral Tablet ORAL *Reorder from [facility] for eRx and Interaction Alerts* 01/30/2023 Active Docusate Sodium 100 MG Oral Tablet ORAL *Reorder from [facility] for eRx and Interaction Alerts* 01/30/2023 Active Calcium Citrate 1500 MG / Cholecalciferol 200 UNT Oral Tablet ORAL *Reorder from [facility] for eRx and Interaction Alerts* 09/24/2023 Active 60 ACTUAT tiotropium 0.0025 MG/ACTUAT Inhalation [place] [Spiriva] INTRAPULMONARY *Reorder from [facility] for eRx and Interaction Alerts* 01/30/2023 Active albuterol 0.833 MG/ML / ipratropium bromide 0.167 MG/ML Inhalation Solution INTRAPULMONARY *Reorder from [facility] for eRx and Interaction Alerts* 01/30/2023 Active Metoprolol Tartrate 75 MG Oral Tablet ORAL *Reorder from [facility] for eRx and Interaction Alerts* 01/30/2023 Active LORazepam 1 MG Oral Tablet ORAL *Reorder from [facility] for eRx and Interaction Alerts* 01/30/2023 Active [...] Problem History of malignant neoplasm of prostate (468828449) Personal history of malignant neoplasm of prostate (Z85.46) Active confirmed Problem Urinary retention (237445875) Urinary retention (R33.9) Active confirmed Problem Bladder neck obstruction (730491579) Bladder neck obstruction (N32.0) Active confirmed Vital Signs Heart Rate 78 /min 07/07/2024 Temperature 98.68 degrees Fahrenheit 07/07/2024 Height-cm 177.80 cm 07/07/2024 Blood pressure diastolic 64 mm Hg 07/07/2024 Weight-kg 99.79 kg 07/07/2024 Height 70.00 in 07/07/2024 Blood pressure systolic 110 mm Hg 07/07/2024 Weight 220.0 lbs 07/07/2024 BMI 31.56 kg/m2 07/07/2024 Encounters Encounter Location Date Provider Diagnosis [facility] [address] [place] [address] 07/07/2024 Sameera Patel Personal history of malignant neoplasm of prostate Z85.46 ; nursing home (current) use of other agents affecting estrogen receptors and estrogen levels Z79.818 ; Urinary retention R33.9 ; Urinary urgency R39.15 and Frequency of micturition R35.0 [facility] [address] [place] [address] [place] [address] 03/12/2024 Aryan Taylor [facility] [address] [place] [address] [place] [address] 03/16/2024 Aryan Leggettsay [facility] [address] [place] [address] [place] [address] 03/16/2024 Aryan Taylor Personal history of malignant neoplasm of prostate Z85.46 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 estrogen receptors and estrogen levels Z79.818 [facility] [address] [place] [address] [place] [address] 05/19/2024 Aryan Taylor [facility] [address] [place] [address] [place] [address] 06/16/2024 Aryan Taylor nursing home (current) use of other agents affecting estrogen receptors and estrogen levels Z79.818 and Personal history of malignant neoplasm of prostate Z85.46 [facility] [address] [place] [address] Dr [place] [address] [place] [address], [place] [address] 07/06/2024 Aryan Taylor [facility] [address] [place] [address] [place] [address] 07/07/2024 Aryan Taylor nursing home (current) use of other agents affecting estrogen receptors and estrogen levels Z79.818 and Personal history of malignant neoplasm of prostate Z85.46 [facility] [address] [place] [address] [place] [address] 10/02/2024 Aryan Taylor Assessments Encounter Date Diagnosis (ICD Code) Assessment Notes Treatment Notes Treatment Clinical Notes Section Notes 03/16/2024 Personal history of malignant neoplasm of prostate (ICD-10 - Z85.46) 06/16/2024 nursing home (current) use of other agents affecting estrogen receptors and estrogen levels (ICD-10 - Z79.818) 07/07/2024 nursing home (current) use of other agents [...] Name Order Date Basic Metabolic Panel (BMP) 65010 2023 Basic Metabolic Panel (BMP) 89810 2024 PSA Diagnostic--03461 07/07/2024 Bone Densitometry-62224 07/07/2024 Bone Densitometry-49793 06/16/2024 Bone Densitometry-66810 03/16/2024 Insurance Providers Payer Name Payer Address Payer Phone Subscriber Number Group Number Insured Name Patient Relationship to Insured Coverage Start Date Coverage End Date [employer] [address] [place] [phone] [id number] SEA HODGE Self - patient is the insured Medical (General) History Hospitalization History Reason Date(Month/Year) sars/rsv/pneumonia
--- NOTE | 2025-03-10 08:00 | FL_ITS ---
WS: [id number] Modified barium swallow, 03/10/2025 Clinical Data: Oropharyngeal dysphagia Comparison: None. Fluoroscopy time: 1min 57.098212mns # of spot films: Findings: The patient swallowed the various mixtures with minimal difficulty. The patient's lack of dentition slowed the oral progression of food. There is minimal oral residue. Minimal penetration was seen with thin liquids but no other substances. There is no aspiration. The hypopharynx moves normally. The barium tablet moved from the oral pharynx into the hypopharynx and the esophagus rapidly. There was a hiatal hernia. FL/FL barium swallow modifd 19984 Impression: Minimal penetration with thin liquids, otherwise negative study.
[2025-03-10] MEDS: cefTRIAXone 1,000 mg SDV 1000 MG IVP (08:46)
--- NOTE | 2025-03-10 09:22 | PC.CHAP ---
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 medical practice administrator visit [] Patient/Family/Request visit [] Outpatient visit [] Follow-up visit [] Physician referral [] Code/Alert [] Routine visit [] Staff referral [] Actively dying [] Patient sleeping [] Family support [] [] Out of room [] Palliative care [] [x] Receiving care in room [] Pre-surgical visit [] Trauma [] Long length of stay [] ICU visit [] Other: Relational/Emotional Strength [] Patient feels connected with others/family/visitors/staff [] Distress [] Loneliness/isolation [] Abandonment Spirituality of Patient [] Person of [place] [] Attends Tenriism of their [place] [] Believes in Prayer [] Reads Bible or Faith materials [] There are Spiritual issues to be addressed [place] Interventions [] Prayer [] Active listening [] Non-anxious presence [] Spiritual/emotional support [] Crisis/trauma care [] Spiritual counseling [] Bereavement support [] Provided bereavement packet [] Provided Bible/devotional materials [] Provided toy/stuffed animal, coloring book to patient or family member [] Provided Communion [] Anointing/Daisy [] Salvation [] Completed spiritual assessment [] Other: Impact on Illness or Injury [] Angry [] Fearful [] Anxious [] Often cries [] Exhaustion [] Unable to work [] Unable to attend shinto [] Unable to walk/stand [] Unable to read [] Unable to drive [] Unable to eat/drink [] Unable to sleep [] Unable to be with family [] Patient intubated [] Other: Summary Time spent with patient
--- NOTE | 2025-03-10 14:21 | P.DS_ITS ---
Discharge Providers Date of Admission: 03/09/25 12:09 Date of Discharge: March 10, 2025 Attending Provider at Admission: Tam Ritchie Attending Provider at Discharge: Tam Ritchie Primary Care Provider: PATO Hernandez Diagnoses at Discharge Discharge Diagnosis 1. Acute exacerbation of chronic obstructive pulmonary disease: 2. Decompensated heart failure: 3. Hemoptysis: Reason for Visit Reason for Visit: SOB Brief History: Gabino Jones Sr is a 69 year old gentleman with a history of heart failure, hypertension, atrial fibrillation, gastroesophageal reflux disease, hyperlipidemia, hypothyroidism, and chronic obstructive pulmonary disease presenting with shortness of breath. Recently hospitalized in January for a chronic obstructive pulmonary disease exacerbation, complicated by atrial fibrillation with rapid ventricular response; discharged on home oxygen. Reports inability to use home oxygen recently due to living in a camper without electricity; uses oxygen at work and via delivered tanks at home but ran out of one tank during a move to a new apartment with power. Reports orthopnea and minimally productive cough. Noted hemoptysis for approximately four days, with dark red and light red blood, occurring almost every time he coughed. States this has happened before with prior pneumonia. Completed prior antibiotics; felt only slight improvement before symptoms recurred. Endorses chest heaviness but denies typical cardiac chest pain. Chronic lower extremity swelling. Sometimes has night sweats. No history of intravenous drug use, alcohol, or other illicit drugs. No incarceration. Travel history includes the [facility]; denies prior tuberculosis diagnosis. Nausea with some vomiting over the last day; emesis initially food contents, then fluids; did not check for coffee-ground appearance. Reports intermittent leg tightness/pain; recently had a vascular stent placed in one leg for peripheral artery disease and is scheduled for a procedure on the other leg. No epistaxis. Sleeps with about three pillows and wakes up coughing at night. EMS reportedly found oxygen saturation of 88% on room air; started on 3 L nasal cannula. In the emergency department: low-grade temperature 99.3?F, initial pulse 110?113 then 70, blood pressure 116/46, oxygen saturation 95% on 3 L nasal cannula. Laboratory results: complete blood count with normal white blood cell count and hemoglobin; mild thrombocytopenia at 149. Comprehensive metabolic panel notable for sodium 133, bicarbonate 20, anion gap 19, blood urea nitrogen 11, creatinine 0.7, glucose 135, lactate 1.3, calcium 8.2, total bilirubin 3.1; aspartate aminotransferase, alanine aminotransferase, and alkaline phosphatase normal. NT-proBNP 7000. Procalcitonin 2.46. Chest X-ray: bilateral patchy lower lobe opacities which may represent atelectasis, pneumonia, and/or pulmonary vascular congestion; cardiomegaly, atherosclerosis, and hyperinflation. Liver ultrasound: status post cholecystectomy, normal common bile duct, stable right renal cyst 2.3 cm. Electrocardiogram: atrial fibrillation and right bundle branch block. Hospital Course Hospital Course He was given a dose of Lasix, which was repeated, with good urine output, improvement in symptoms. Troponin T series were completed which were unremarkable, with known atrial fibrillation. Echocardiogram is obtained. Started on treatment for community-acquired pneumonia, possible COVID-pneumonia after vomiting, as well as severe exacerbation of COPD. Today with improving symptoms, feeling much better. Saturations remained stable on 2 L nasal cannula oxygen. No further hemoptysis and with resolution of phlegm production. He was assessed by speech therapy, and did well with recommendation for alternating liquids and solids. MBS was obtained which did show minimal penetration with thin liquids otherwise negative study, with continued aspiration precautions, without recommendation for further diet modification at this time. Home oxygen study is obtained prior to discharge. As he is moving to place with access to electricity oxygen is being set up at his new apartment where he should be able to continue using, with goal saturation 88-92%. He is going to follow-up with his pulmonology specialist with regards to COPD with exacerbation, readmission due to recurrent pneumonia, as well as noted advanced honeycombing and changes of possible UIP on CT during prior ED visit on 03/01. Physical Exam Const: COMMON NORMALS: patient oriented x3 and alert GENERAL APPEARANCE: cooperative ORIENTATION/CONSCIOUSNESS: Yes awake HENMT: COMMON NORMALS: oropharynx normal Neck/C-Spine: COMMON NORMALS: negative for no JVD Resp: COMMON NORMALS: clear to auscultation bilaterally AUSCULTATION: clear to auscultation bilaterally, no rhonchi and no wheezes Cardio: COMMON NORMALS: regular rhythm, S1 normal heart sound present, S2 normal heart sound present and No murmurs present (Cardio); negative for no JVD RHYTHM: regular rhythm HEART SOUNDS: S1 normal heart sound present and S2 normal heart sound present GI: COMMON NORMALS: Normal to inspection, nondistended, normoactive bowel sounds present, Soft to palpation and non-tender PALPATION: Yes Soft to palpation Extremity: COMMON NORMALS: no joint enlargement GENERAL: Yes edema (Trace) Neuro: COMMON NORMALS: patient oriented x3 and moves all extremities SENSORIUM/ORIENTATION: Yes alert Skin: COMMON NORMALS: no rashes or lesions noted GENERAL SKIN EXAM: no rashes or lesions noted Discharge Data Studies Completed and Pending Completed Studies During Hospitalization Category Date Time Status FL barium swallow modifd 10913 Routine Exams 03/10/25 08:00 Completed XR chest 1V portable [id number] Stat Exams 03/09/25 09:00 Completed US liver 09631 Stat Ultrasound 03/09/25 10:42 Completed Pending at discharge Category Date Time Status Blood Culture Stat Lab 03/09/25 09:52 Results Complete Blood Count w/Auto AM LABS Lab 03/11/25 04:00 Ordered Complete Blood Count w/Auto AM LABS Lab 03/12/25 04:00 Ordered Comprehensive Metabolic Panel AM LABS Lab 03/11/25 04:00 Ordered Comprehensive Metabolic Panel AM LABS Lab 03/12/25 04:00 Ordered Sputum Culture and Gram Stain Routine Lab 03/09/25 15:13 Uncollected CV. echo complete* [id number] Routine Ultrasound 03/10/25 17:08 Taken Radiology Impressions Chest X-Ray 03/09/25 09:00 Impression: 1. Bilateral patchy lower lobe opacities which may represent atelectasis, pneumonia and/or pulmonary vascular congestion. 2. Cardiomegaly, atherosclerosis and hyperinflation. Liver Ultrasound 03/09/25 10:42 IMPRESSION: 1. Prior cholecystectomy. 2. Normal common bile duct. 3. Stable RIGHT renal cyst 2.3 cm. Modified Barium Swallow 03/10/25 08:00 Impression: Minimal penetration with thin liquids, otherwise negative study. Laboratory Results WBC 9.84 10^3/uL (3.29-11.43) 03/10/25 04:23 RBC 4.34 10^6/uL (3.85-5.65) 03/10/25 04:23 Hgb 12.20 g/dL (11.27-16.99) 03/10/25 04:23 Hct 37.9 % (37-53) 03/10/25 04:23 MCV 87.3 fl (82-101) 03/10/25 04:23 MCH 28.1 pg (27-33) 03/10/25 04:23 MCHC 32.2 g/dL (30-55) 03/10/25 04:23 RDW 16.9 % (12.1-15.1) H 03/10/25 04:23 Plt Count 187 10^3/cmm (157-399) 03/10/25 04:23 MPV 9.3 fL (7.4-10.4) 03/10/25 04:23 Neut % (Auto) 92.4 % 03/10/25 04:23 Lymph % (Auto) 3.0 % 03/10/25 04:23 [place] % (Auto) 3.9 % 03/10/25 04:23 Eos % (Auto) 0.0 % 03/10/25 04:23 Baso % (Auto) 0.1 % 03/10/25 04:23 Neut # (Auto) 9.09 10^3/uL (1.8-7.7) H 03/10/25 04:23 Lymph # (Auto) 0.3 10^3/uL (0.8-4.8) L 03/10/25 04:23 [place] # (Auto) 0.4 10^3/uL (0.2-0.9) 03/10/25 04:23 Eos # (Auto) 0.0 10^3/uL (0.0-0.8) 03/10/25 04:23 Baso # (Auto) 0.0 10^3/uL (0.0-0.1) 03/10/25 04:23 Nucleated RBC % (auto) 0 % 03/10/25 04:23 Nucleated RBCs # 0.0 /100WBC 03/10/25 04:23 Sodium 138 mmol/L (136-145) 03/10/25 04:23 Potassium 4.3 mmol/L (3.5-5.1) 03/10/25 04:23 Chloride 102 mmol/L (98-107) 03/10/25 04:23 Carbon Dioxide 25 mmol/L (22-29) 03/10/25 04:23 Anion Gap 15.3 (5-19) 03/10/25 04:23 BUN 28 mg/dL (8-23) H 03/10/25 04:23 Creatinine 1.0 mg/dL (0.7-1.2) 03/10/25 04:23 GFR Calculation 73.9 mL/min (90-130) L 03/10/25 04:23 Glucose 218 mg/dL (65-115) H 03/10/25 04:23 POC Glucose 221 mg/dL (70-110) H 03/10/25 11:22 Calculated Osmolality 298 mOsm/kg (285-295) H 03/10/25 04:23 Lactic Acid 1.3 mmol/L (0.5-2.2) 03/09/25 09:47 Calcium 8.4 mg/dL (8.5-10.5) L 03/10/25 04:23 Total Bilirubin 0.9 mg/dL (0.15-1.2) 03/10/25 04:23 AST 9 U/L (0-40) 03/10/25 04:23 ALT 8 U/L (0-41) 03/10/25 04:23 Alkaline Phosphatase 72 U/L (40-130) 03/10/25 04:23 Troponin T Baseline 23 ng/L (0-15) H 03/09/25 09:13 Troponin T 120 Minute 23.56 ng/L (0-15) H 03/09/25 10:54 Delta Troponin T 0.56 ABS# (0-10) 03/09/25 10:54 Troponin T Hi Sens 6Hr 19.17 ng/L (0-15) H 03/09/25 15:18 Troponin T Hi Sens 6Hr Delta -3.83 ng/L (0-12) L 03/09/25 15:18 NT-Pro-B Natriuret Pep 7072 pg/mL (0-125) H 03/09/25 09:13 Total Protein 6.7 g/dL (6.6-8.7) 03/10/25 04:23 Albumin 3.4 g/dL (3.5-5.2) L 03/10/25 04:23 Globulin 3.3 g/dL (1.3-4.6) 03/10/25 04:23 Procalcitonin 2.46 ng/mL (0-0.5) H 03/09/25 09:13 Nasal MRSA (PCR) Not detected (Negative) 03/09/25 15:52 Digoxin 1.2 ng/mL (0.6-1.2) 03/09/25 09:13 Influenza A (PCR) Negative (Negative) 03/09/25 15:52 Influenza Type B (PCR) Negative (Negative) 03/09/25 15:52 RSV (PCR) Negative (Negative) 03/09/25 15:52 SARS-CoV-2 (PCR) Negative (Negative) 03/09/25 15:52 Vitals Last Vital Signs Temp 97.7 F 03/10/25 11:21 Pulse 68 03/10/25 11:21 Resp 17 03/10/25 11:21 BP 115/62 03/10/25 11:21 Pulse Ox 90 03/10/25 11:21 O2 Del Method Nasal Cannula 03/10/25 11:21 O2 Flow Rate 3 03/10/25 11:21 Discharge Plan Discharge Patient Disposition: Home Condition: Stable Prescriptions: New cefdinir 300 mg capsule 300 mg PO BID 5 Days Qty: 10 0RF azithromycin 250 mg tablet 250 mg PO DAILY 5 Days Qty: 5 0RF Continued diclofenac sodium 1 % gel 4 g topical QID PRN (Reason: joint pain) Qty: 100 3RF Rx Instructions: apply to single knee, ankle, foot; for foot includes sole/toes/top of foot insulin glargine [Lantus Solostar U-100 Insulin] 100 unit/mL (3 mL) insulin pen 10 unit SUBCUT DAILY Qty: 15 0RF folic acid 1 mg tablet 1 mg PO DAILY Qty: 30 0RF Eliquis 5 mg Tablet 5 mg PO BID Qty: 60 0RF potassium chloride 20 mEq Tablet Extended Release 20 meq PO QAM Flomax 0.4 mg capsule 0.4 mg PO BID albuterol sulfate 90 mcg/actuation HFA aerosol inhaler 2 inh INHALATION Q4H PRN (Reason: shortness of breath or wheezing) Qty: 18 0RF (DME) pen needle, diabetic [BD Ultra-Fine Micro Pen Needle] 32 gauge x 1/4 needle See Rx Instructions .ROUTE .MEDSUPPLY Qty: 50 0RF Rx Instructions: As directed (DME) lancets Misc See Rx Instructions .ROUTE .MEDSUPPLY Qty: 100 0RF Rx Instructions: As directed (DME) blood-glucose meter [Blood Glucose Monitoring] Kit See Rx Instructions .ROUTE .MEDSUPPLY Qty: 1 0RF Rx Instructions: As directed levothyroxine 125 mcg Tablet 125 mcg PO QAM fluticasone propion-salmeterol [Advair Diskus] 100-50 mcg/dose blister with device 1 inh inhalation BEDTIME atorvastatin 20 mg Tablet 10 mg PO BEDTIME albuterol sulfate 2.5 mg /3 mL (0.083 %) Solution For Nebulization 2.5 mg INHALATION Q6H PRN (Reason: Shortness Of Breath) sertraline 100 mg Tablet 100 mg PO QPM clopidogrel 75 mg Tablet 75 mg PO DAILY aspirin 81 mg Tablet,Delayed Release (Dr/Ec) 81 mg PO DAILY gabapentin 100 mg Capsule 200 mg PO TID metoprolol tartrate 25 mg Tablet 37.5 mg PO BID cholecalciferol (vitamin D3) [Vitamin D3] 50 mcg (2,000 unit) Tablet 50 mcg PO DAILY Spiriva Respimat 2.5 mcg/actuation Mist 2 puff INHALATION DAILY sennosides-docusate sodium 8.6-50 mg tablet 1 tab PO DAILY loratadine 10 mg tablet 10 mg PO QAM nitroglycerin [Nitrostat] 0.4 mg Tablet, Sublingual 0.4 mg SUBLINGUAL Q5M PRN (Reason: Chest Pain) Rx Instructions: do not exceed 3 doses per episode digoxin 250 mcg (0.25 mg) tablet 250 mcg PO QAM calcium carbonate 500 mg calcium (1,250 mg) Tablet 500 mg PO BID pantoprazole 40 mg tablet,delayed release (DR/EC) 40 mg PO BID Jardiance 25 mg tablet 12.5 mg PO DAILY cyanocobalamin (vitamin B-12) [Vitamin B-12] 100 mcg Tablet 100 mcg PO DAILY Held furosemide [Lasix] 40 mg tablet 40 mg PO QAM Hold Instructions: Resume on 03/12/25. Discontinued prednisone 20 mg tablet 60 mg PO DAILY Qty: 20 0RF Rx Instructions: 3 tabs (60 mg) x 3 days. 2 tabs (40 mg) x 3 days. 1 tab (20 mg) x 3 days. 1/2 tab (10 mg) x 4 days Discharge Order = DC NOW: Discharge Order (Routine); Ordered 03/10/25 Ordered By: Tam Ritchie Other Ambulatory Orders: DME: Oxygen (Order) Location: None Selected Ordered By: Tam Ritchie Referrals: [facility] [Staff Physician, [facility]] Referral Note: Come to [facility] for Walk in assessmnet and ask for Casemanagement. M-F 7:45 - 4PM Isela Gipson FNP [Primary Care Provider, Nurse Practitioner] - 03/16/25 11:00 am Discharge Diet: As Directed and Diabetic Discharge Activity: Oxygen as instructed Patient Instructions: Azithromycin (By mouth), Cefdinir (By mouth), CHF Stoplight, COPD Stoplight, Opioid Safety, Pneumonia Stoplight, Patient Portal & Elizabeth Instructions Activity Restrictions/Additional Instructions: Complete antibiotic course for possible pneumonia, with possible aspiration pneumonia please follow directions from speech therapy to reduce the chance of aspiration, although aspiration pneumonia/pneumonitis may have occurred after vomiting. Complete prednisone taper as per prior prescription also for COPD exacerbation. 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 Discussed with pulmonology findings on CT scan from 03/01 with finding of honeycombing, changes of possible UIP. Continue oxygen at home target target oxygen saturation 88-92%. Seek medical attention in case of any worsening or new concerning symptoms. Discharge Attestations Time Spent in Discharge Care*: greater than 30 min Status at Discharge: Cognitive status at discharge: cognitively intact , Behavioral status at discharge: cooperative , Quality Metrics Clinical Quality Measures [ No reported AMI, CVA or VTE this stay] 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 of Care Code 99758 Total time (in minutes) for Discharge: 45 Diagnoses Acute exacerbation of chronic obstructive pulmonary disease J44.1 Community acquired pneumonia J18.9 Laterality: unspecified laterality Decompensated heart failure I50.9 Hemoptysis R04.2
--- NOTE | 2025-03-10 17:08 | USCV_ITS ---
Gabino Jones Age: 69 Gender: M : 1955 Exam Date: 03/10/2025 13:20 Ordering Phys: Tam Ritchie MD Technologist: Exam Location: [facility] [place] Indication: cp sob BP: 143 / 78 HR: 87 Rhythm: Sinus Technical Quality: Adequate MEASUREMENTS (Male / Female) Normal Values 2D ECHO LV Diastolic Diameter PLAX 4.2 cm 4.2 - 5.9 / 3.9 - 5.3 cm IVS Diastolic Thickness 1.8 cm 0.6 - 1.0 / 0.6 - 0.9 cm IVS Systolic Thickness 2.0 cm LVPW Diastolic Thickness 1.6 cm 0.6 - 1.0 / 0.6 - 0.9 cm LVPW Systolic Thickness 1.8 cm LVOT Diameter 2.1 cm LV Ejection Fraction 2D Teich 55.8 % LV Ejection Fraction MOD 4C 59.7 % LV Ejection Fraction MOD 2C 71.6 % LV Ejection Fraction 2C AL 72.5 % LA Diameter 4.5 cm RA Systolic Volume 4C AL 102.5 ml RA Systolic Volume 4C MOD 98.8 ml Aorta at Sinotubular Diameter 3.6 cm IVC Diameter 1.9 cm M-MODE LA Ao Ratio MM 1.3 AV Cusp Separation MM 2.6 cm DOPPLER AV Peak Velocity 139.0 cm/s LVOT Peak Velocity 108.0 cm/s AV Area Cont Eq vti 1.8 cm squared AV Area Cont Eq pk 2.6 cm squared MV Peak Velocity 100.0 cm/s MV Area PHT 4.5 cm squared Mitral E to A Ratio 2.8 TR Peak Velocity 234.0 cm/s TR Peak Gradient 21.9 mmHg TV Peak E Velocity 77.0 cm/s PV Peak Velocity 98.0 cm/s FINDINGS Left Ventricle Normal left ventricular size, systolic function and wall thickness, with no regional wall motion abnormalities. Left ventricular ejection fraction is estimated at 60 %. Grade II/IV diastolic dysfunction, moderately elevated filling pressures. Right Ventricle Normal right ventricular size and systolic function. Right Atrium Normal right atrial size. Left Atrium Moderately increased left atrial size. IA Septum Normal appearance of the interatrial septum. Mitral Valve Mildly thickened mitral valve. No mitral valve stenosis. Mild mitral valve regurgitation. Aortic Valve Normal aortic valve structure. No aortic valve stenosis or regurgitation. Tricuspid Valve Mild tricuspid valve regurgitation. Pulmonic Valve Normal pulmonic valve structure. No pulmonic valve stenosis or regurgitation. Pericardium No pericardial effusion. Aorta Normal diameter of the aortic root and ascending thoracic aorta. IVC Dilated IVC with normal respiratory variation. CONCLUSIONS Normal left ventricular size, systolic function and wall thickness, with no regional wall motion abnormalities. Left ventricular ejection fraction is estimated at 60 %. Grade II/IV diastolic dysfunction, moderately elevated filling pressures. Moderately increased left atrial size. Mildly thickened mitral valve. No mitral valve stenosis. Mild mitral valve regurgitation. Mild tricuspid valve regurgitation. Right atrial pressure is around 10 mm of mercury. Kashif Stern MD (Electronically Signed) Final Date: 11 March 2025 12:47 S
== END 2025-03-10 16:34 | disposition home or self-care (01) ==
LOC: ER 11:15 → MEDSURG 13:35 → ER IP 03-10 07:16
PROVIDERS: Admitting Provider Internal Medicine; Emergency Provider Family Medicine; PCP Nurse Practitioner; Visit Provider Internal Medicine
DX: J44.1 Chronic obstructive pulmonary disease with (acute) exacerbation (principal); J18.9 Pneumonia, unspecified organism; I50.9 Heart failure, unspecified; I11.0 Hypertensive heart disease with heart failure; R04.2 Hemoptysis; K21.9 Gastro-esophageal reflux disease without esophagitis; Z79.82 Long term (current) use of aspirin; Z79.01 Long term (current) use of anticoagulants; Z79.4 Long term (current) use of insulin; I25.10 Atherosclerotic heart disease of native coronary artery without angina pectoris; Z85.46 Personal history of malignant neoplasm of prostate; I48.91 Unspecified atrial fibrillation; E78.5 Hyperlipidemia, unspecified; E03.9 Hypothyroidism, unspecified; Z87.891 Personal history of nicotine dependence
CPT/HCPCS: 36415; 36416; 71045; 74230; 76705; 80053; 80162; 82962; 83605; 83880; 84145; 84484; 85025; 86403; 87040; 87449; 87637; 92523; 92610; 92611; 93005; 93306; 94640; 94760; 96365; 96372; 96375; 96376; 99285; G0378; J0456; J0696; J1815; J1938; J2919; J7050; J9999

== ENCOUNTER 2025-03-11 09:38 | Outpatient (RCR) | payer OTHER, SELFPAY | END 2025-04-02 23:59 | disposition home or self-care (01) | LOC: TPT 09:38 | PROVIDERS: PCP Nurse Practitioner; Visit Provider Nurse Practitioner | DX: Z47.1 Aftercare following joint replacement surgery (principal); Z96.652 Presence of left artificial knee joint | CPT/HCPCS: 97110; 99213 ==

== ENCOUNTER 2025-03-15 10:35 | Inpatient (IN) | payer OTHER, SELFPAY ==
--- OUTSIDE RECORDS SUMMARY | 2024-05-20 09:10 | XMS_ITS ---
Author Organization [facility] Address [address] [facility] [address] Care Team Providers Care Waiter/Waitress Take Out Name Role Phone Sameera Patel [phone] REASON FOR VISIT 3m f/u With BMP and bone density test, for possible Prolia., Encounters Encounter Location Date Provider Diagnosis [facility] [address] [place] [address] [address] [place] [address] 05/20/2024 Sameera Patel Plan Of Treatment No Information Progress Notes * SEA HODGEDOB:1955 (69 yo M)Acc No.[id number]:05/20/2024 Progress Notes Patient: SEA BELL CYRUS Provider: PATO Stover :1955 A ge:68 Y S ex:Male Date:05/20/2024 Address: [address], [id number] Subjective: * Chief Complaints: * 3 m f/u With BMP and bone density test, for possible Prolia., * Electronic signature of PATO Saldana on 03/15/2025 at 11:04 AM CDT Sign off status: Pending * Provider: PATO Stover Date: 07/21/2023 Generated for Halie flowers/Fiordaliza/Quinn on: 11:04 AM CDT
--- OUTSIDE RECORDS SUMMARY | 2024-10-05 06:10 | XMS_ITS ---
Author Organization [facility] Address [address] [place] [address] Care Team Providers Care Investigation Division Sergeant Name Role Phone Sameera Patel Unavailable [phone] REASON FOR VISIT 3 month f/u with psa ua pvr and bone density Encounters Encounter Location Date Provider Diagnosis [facility] [address] [place] [address] [address] [place] [address] 10/05/2024 Sameera Patel Personal history of malignant neoplasm of prostate Z85.46 ; Bladder neck obstruction N32.0 ; 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 (current) use of other agents affecting estrogen receptors and estrogen levels Z79.818 and Urinary retention R33.9 Assessments Encounter Date Diagnosis (ICD Code) Assessment Notes Treatment Notes Treatment Clinical Notes Section Notes 10/05/2024 Personal history of malignant neoplasm of prostate (ICD-10 - Z85.46) 10/05/2024 Bladder neck obstruction (ICD-10 - N32.0) 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 Shepherd about a prostatectomy, he denied being on androgen ablation, we requested records from oncology in Center to determine what his plan of care was He was having issues with urgency and frequency, we placed him on Gemtesa for 4 weeks to see if that would help his issues He was supposed to have a bone density test Progress Notes * AYESHA SEA BRIDGESDOB:1955 (69 yo M)Acc No.[id number]:10/05/2024 Progress Notes Patient: SEA BELL Provider: PATO Stover :1955 A ge:69 Y S ex:Male Date:10/05/2024 Address:[place] [address], [facility] Subjective: * Chief Complaints: * 3 month f/u with psa ua pvr and bone density * HPI: Giovanny slade Note: 68-year-old male presents to the clinic for follow-up Last seen in July 2024 prostate cancer, Treated with EBRT +5 = 10 prostate cancer ADT in [facility] with oncology PSA was less than 0.014 in 2023 Tamsulosin twice daily Bone scan performed at [facility] on 03/07/2024 show no osseous lesions suspicious for metastatic disease, soft tissue contour is normal, kidneys normal, degenerative type uptake in both shoulders and AC joints, degenerative uptake in both knees and ankles No evidence of osseous metastatic disease Patient went to talk to Dr. Shepherd about a prostatectomy, he denied being on androgen ablation, we requested records from oncology in [facility] to determine what his plan of care [...] signature of PATO Saldana on 03/15/2025 at 06:42 PM CDT Sign off status: Pending * Provider: PATO Stoevr Date: 0 10/05/2024 Generated for Halie flowers/Fiordaliza/Quinn on: 1 06:42 PM CDT
[2025-03-15] VITALS (14 sets, daily range): BP systolic 108–161; BP diastolic 52–76; PULSE 74–116; RESP 18–24; TEMP 36.2–37; O2SAT 90–98; BMI 27.9; BMI 31.8
--- NOTE | 2025-03-15 10:38 | ECG_ITS ---
[facility] Test Date: 2025-03-15 Pat Name: Gabino Jones Department: Room: Gender: Male Distance Education Coordinator: : 1955 Requested By: Job Summers Order Number: [id number] Mick MD: Eduardo Estrada M.D. Measurements Intervals [place] Rate: 102 P: 0 [place]: 0 QRS: 54 QRSD: 142 T: -24 QT: 372 QTc: 487 Interpretive Statements ATRIAL FIBRILLATION WITH RAPID VENTRICULAR RESPONSE RIGHT BUNDLE BRANCH BLOCK [120+ ms QRS DURATION, UPRIGHT V1, 40+ ms S IN I/aVL/V4/V5/V6] ST DEPRESSION, CONSIDER SUBENDOCARDIAL INJURY [0.1+ mV ST DEPRESSION] Compared to ECG 03/09/2025 17:57:13 Ventricular premature complex(es) no longer present Electronically Signed On 03-17-2025 21:39:41 CDT by Eduardo Estrada M.D. [email or web address]
--- NOTE | 2025-03-15 10:38 | XR_ITS ---
WS: [id number] PORTABLE CHEST HISTORY: dyspnea/cough COMPARISON: 03/09/2025, 01/28/2025, chest CT 03/01/2025 Progressive consolidation throughout majority of the LEFT lung since 03/01/2025 and 01/28/2025. Patient has known honeycombing and fibrosis at the lung bases. The central consolidation and LEFT upper lobe opacifications are progressive since 03/09/2025. RIGHT lung is hyperinflated. Bullous lung disease. No pneumothorax. Cardiac size: Normal. Mediastinum/Aorta: Mediastinal widening. Mild atherosclerosis aorta. No osseous abnormality seen. Prior CABG. XR/XR chest 1V portable [id number] IMPRESSION: 1. Progressive areas of consolidation and opacification throughout a large por tion of the LEFT lung since 03/09/2025. Patient has known honeycombing and bronc hiectasis which has been previously described. Suspect superimposed pneumonia o n UIP. 2. Severe emphysema. 3. Prior CABG.
--- NOTE | 2025-03-15 10:42 | W.ED.SOB ---
HPI - SOB/Dyspnea General: Chief Complaint: Shortness of Breath/Dyspnea Stated Complaint: Sob Time Seen by Provider: 03/15/25 10:39 History of Present Illness: HPI Narrative: 69-year-old male presents emergency room complaining of shortness of breath he was recently hospitalized for pneumonia has had increasing shortness of breath yesterday some heaviness in his chest has not had any sharp pain no radiation discomfort in his neck or arms. Has had a productive cough has been wheezing at home as well. No vomiting or diarrhea. Associated symptoms: Deny abdominal pain, chest pain or fever(s) Related Data Home Medications ?Medication ?Instructions ?Recorded ?Confirmed furosemide 40 mg tablet (Lasix) 40 mg PO QAM 03/28/21 03/11/25 Held on 03/10/25. Instructions: Resume on 03/12/25. potassium chloride 20 mEq 20 meq PO QAM 03/28/21 03/11/25 tablet,extended release tamsulosin 0.4 mg capsule (Flomax) 0.4 mg PO BID 02/25/23 03/11/25 loratadine 10 mg tablet 10 mg PO QAM 05/15/23 03/11/25 digoxin 250 mcg (0.25 mg) tablet 250 mcg PO QAM 08/04/23 03/11/25 nitroglycerin 0.4 mg sublingual 0.4 mg sublingual Q5M PRN Chest 08/04/23 03/11/25 tablet (Nitrostat) Pain levothyroxine 125 mcg tablet 125 mcg PO QAM 07/09/24 03/11/25 fluticasone 100 mcg-salmeterol 50 1 inh inhalation BEDTIME 09/15/24 03/11/25 mcg/dose blistr powdr for inhalation (Advair Diskus) albuterol sulfate 2.5 mg/3 mL 2.5 mg inhalation Q6H PRN 01/28/25 03/11/25 (0.083 %) solution for nebulization Shortness Of Breath aspirin 81 mg tablet,delayed 81 mg PO DAILY 01/28/25 03/11/25 release atorvastatin 20 mg tablet 10 mg PO BEDTIME 01/28/25 03/11/25 cholecalciferol (vitamin D3) 50 50 mcg PO DAILY 01/28/25 03/11/25 mcg (2,000 unit) tablet (Vitamin D3) clopidogrel 75 mg tablet 75 mg PO DAILY 01/28/25 03/11/25 gabapentin 100 mg capsule 200 mg PO TID 01/28/25 03/11/25 metoprolol tartrate 25 mg tablet 37.5 mg PO BID 01/28/25 03/11/25 sennosides 8.6 mg-docusate sodium 1 tab PO DAILY 01/28/25 03/11/25 50 mg tablet sertraline 100 mg tablet 100 mg PO QPM 01/28/25 03/11/25 tiotropium bromide 2.5 2 puff inhalation DAILY 01/28/25 03/11/25 mcg/actuation mist for inhalation (Spiriva Respimat) calcium carbonate 500 mg PO BID 03/09/25 03/11/25 cyanocobalamin (vitamin B-12) 100 100 mcg PO DAILY 03/09/25 03/11/25 mcg tablet (Vitamin B-12) empagliflozin 25 mg tablet 12.5 mg PO DAILY 03/09/25 03/11/25 (Jardiance) pantoprazole 40 mg tablet,delayed 40 mg PO BID 03/09/25 03/11/25 release Previous Rx's ?Medication ?Instructions ?Recorded apixaban 5 mg tablet (Eliquis) 5 mg PO BID #60 tabs 10/16/19 albuterol sulfate 90 mcg/actuation 2 inh inhalation Q4H PRN shortness 07/27/22 aerosol inhaler of breath or wheezing #18 grams blood-glucose meter (Blood Glucose #1 ea 05/13/24 Monitoring kit) lancets #100 ea 05/13/24 pen needle, diabetic 32 gauge x #50 ea 05/13/2406/06 (BD Ultra-Fine Micro Pen Needle) diclofenac sodium 1 % topical gel 4 g topical QID PRN joint pain 08/24/24 #100 grams insulin glargine 100 unit/mL (3 10 unit (0.1 mL) SUBCUT DAILY #15 09/14/24 mL) subcutaneous pen (Lantus mL Solostar U-100 Insulin) folic acid 1 mg tablet 1 mg PO DAILY #30 tabs 12/11/24 Allergies Allergy/AdvReac Type Severity Reaction Status Date / Time No Known Allergies Allergy Verified 03/11/25 14:51 Review of Systems Const: Denies: fever(s) or chills Card: Denies: chest pain Resp: Reports: dyspnea and productive cough GI: Denies: abdominal pain : Denies: dysuria, urinary frequency or urinary urgency Musc: Denies: neck pain or back pain Skin/Breast: Denies: rash PFSH ED PFSH: Medical History Greater trochanteric bursitis of right hip Prostate cancer History of colon polyps Chronic anticoagulation eliquis, for afib Chronic respiratory failure with hypoxia Heart failure with preserved ejection fraction Coronary artery disease CHF (congestive heart failure) Last echocardiogram normal EF, grade 2/4 diastolic dysfunction October 2019 Hypertension Anemia Atrial fibrillation GERD (gastroesophageal reflux disease) Hypothyroidism Hyperlipidemia COPD (chronic obstructive pulmonary disease) Surgical History History of cataract surgery Left eye - 12/2022 H/O prostate biopsy S/P appendectomy S/P cholecystectomy History of colonoscopy (~04/2020) History of vasectomy History of knee surgery History of coronary artery bypass graft (03/2019) [address] [place] [address] Family History Father , IN HIS 50'S Lung disease tuberculosis Mother , AT AGE 63 CAD (coronary artery disease) Diabetes Hypertension Sister Cancer Denies family history of Clotting disorder Dementia Hyperlipidemia Psychiatric illness Chronic kidney disease (CKD) Suicide Anesthesia complication Bleeding disorder Stroke Social History Smoking and tobacco/nicotine status: former use of tobacco/nicotine Quit status (tobacco/nicotine): has quit using Year quit tobacco: 2016 - PPD x 52 Years Alcohol intake: never Substance/Drug Use: never Lives independently: Yes Household members: none Marital status: Legally Current occupational status: employed and retired Do you think of yourself as: Straight/Heterosexual Current gender identity: Male Physical Exam Const: GENERAL APPEARANCE: cooperative ORIENTATION/CONSCIOUSNESS: Yes awake, Yes oriented to person, Yes oriented to place and Yes oriented to time HENMT: COMMON NORMALS: normocephalic, atraumatic and hearing grossly normal bilaterally HEAD & SCALP: normocephalic and atraumatic Resp: COMMON NORMALS: normal respiratory effort, No retractions, No use of accessory muscles and clear to auscultation bilaterally AUSCULTATION: clear to auscultation bilaterally Cardio: COMMON NORMALS: regular rate, regular rhythm and No murmurs present (Cardio) RATE: regular rate RHYTHM: regular rhythm GI: COMMON NORMALS: Soft to palpation and No hepatosplenomegaly present AUSCULTATION: Yes normoactive bowel sounds PALPATION: Yes Soft to palpation, No Tenderness to palpation present (GI), No Guarding due to palpation present (GI) and Yes No hepatosplenomegaly present Extremity: COMMON NORMALS: normal to inspection, capillary refill normal, no clubbing, cyanosis or edema, no calf tenderness and no pedal edema Neuro: SENSORIUM/ORIENTATION: Yes oriented to person, Yes oriented to place and Yes oriented to time Skin: COMMON NORMALS: no rashes or lesions noted GENERAL SKIN EXAM: no rashes or lesions noted Course Vital Signs: Vital signs: Vital Signs Temperature 98.6 F 03/15/25 10:39 Pulse Rate 94 03/15/25 12:20 Respiratory Rate 24 H 03/15/25 12:20 Blood Pressure 121/52 03/15/25 12:20 Pulse Oximetry 98 03/15/25 12:20 Oxygen Delivery Me thod Nasal Cannula 03/15/25 12:20 Oxygen Flow Rate 4 03/15/25 12:20 MDM - SOB/Dyspnea Medical Decision Making Recurrence of symptoms increasing shortness of breath that has some improvement with nebulizer. He still tachypneic and tachycardic his lactate not elevated his white count is normal. He is requiring more oxygen than usual. Discussed with hospitalist placed on observation aggressive pulmonary toilet and start IV Levaquin Medical Records I reviewed the patient's medical records. Lab Data I reviewed the patient's lab results. 03/15/25 10:52 03/15/25 10:52 Labs/Radiology: Radiology Impressions Chest X-Ray 03/15/25 10:38 IMPRESSION: 1. Progressive areas of consolidation and opacification throughout a large portion of the LEFT lung since 03/09/2025. Patient has known honeycombing and bronchiectasis which has been previously described. Suspect superimposed pneumonia on UIP. 2. Severe emphysema. 3. Prior CABG. Laboratory Results WBC 7.36 10^3/uL (3.29-11.43) 03/15/25 10:52 RBC 4.44 10^6/uL (3.85-5.65) 03/15/25 10:52 Hgb 12.30 g/dL (11.27-16.99) 03/15/25 10:52 Hct 37.9 % (37-53) 03/15/25 10:52 MCV 85.4 fl (82-101) 03/15/25 10:52 MCH 27.7 pg (27-33) 03/15/25 10:52 MCHC 32.5 g/dL (30-55) 03/15/25 10:52 RDW 16.1 % (12.1-15.1) H 03/15/25 10:52 Plt Count 218 10^3/cmm (157-399) 03/15/25 10:52 MPV 9.7 fL (7.4-10.4) 03/15/25 10:52 Neut % (Auto) 82.3 % 03/15/25 10:52 Lymph % (Auto) 7.1 % 03/15/25 10:52 [place] % (Auto) 9.0 % 03/15/25 10:52 Eos % (Auto) 0.5 % 03/15/25 10:52 Baso % (Auto) 0.1 % 03/15/25 10:52 Neut # (Auto) 6.06 10^3/uL (1.8-7.7) 03/15/25 10:52 Lymph # (Auto) 0.5 10^3/uL (0.8-4.8) L 03/15/25 10:52 [place] # (Auto) 0.7 10^3/uL (0.2-0.9) 03/15/25 10:52 Eos # (Auto) 0.0 10^3/uL (0.0-0.8) 03/15/25 10:52 Baso # (Auto) 0.0 10^3/uL (0.0-0.1) 03/15/25 10:52 Nucleated RBC % (auto) 0 % 03/15/25 10:52 Nucleated RBCs # 0.0 /100WBC 03/15/25 10:52 Specimen Type Arterial 03/15/25 11:16 Sample Site Brachial, right 03/15/25 11:16 ABG pH 7.49 (7.35-7.45) H 03/15/25 11:16 ABG pCO2 34.2 mmHg (35-45) L 03/15/25 11:16 ABG pO2 96.4 mmHg (80.0-100.0) 03/15/25 11:16 ABG PO2/FiO2 Ratio 301 03/15/25 11:16 ABG HCO3 26.1 mmol/L (22-26) H 03/15/25 11:16 ABG O2 Saturation 98.6 03/15/25 11:16 ABG Base Excess 2.9 mmol/L (-2.0-2.0) H 03/15/25 11:16 Derek Test N/a 03/15/25 11:16 A-a O2 Gradient 11.5 mmHg (5-10) H 03/15/25 11:16 Hematocrit 37.0 % (42-52) L 03/15/25 11:16 Hgb O2 Saturation 96.6 % (95-100) 03/15/25 11:16 Carboxyhemoglobin 1.7 %THgb (0.4-20.1) 03/15/25 11:16 Methemoglobin 0.3 % (0.4-1.5) L 03/15/25 11:16 Total Hemoglobin 12.1 g/dL (14-18) L 03/15/25 11:16 Sodium 133.0 mmol/L (131-143) 03/15/25 11:16 Potassium 3.3 mmol/L (3.5-5.0) L 03/15/25 11:16 Glucose 143.0 mg/dL (70-115) H 03/15/25 11:16 Ionized Calcium 1.1 mmol/L (1.1-1.4) 03/15/25 11:16 O2 Delivery Device Nc 03/15/25 11:16 O2 Liters/Min 3.0 % 03/15/25 11:16 FiO2 32.0 % 03/15/25 11:16 Hairspring I Inspector ID Amh 03/15/25 11:16 Sodium 133 mmol/L (136-145) L 03/15/25 10:52 Potassium 3.4 mmol/L (3.5-5.1) L 03/15/25 10:52 Chloride 94 mmol/L (98-107) L 03/15/25 10:52 Carbon Dioxide 26 mmol/L (22-29) 03/15/25 10:52 Anion Gap 16.4 (5-19) 03/15/25 10:52 BUN 13 mg/dL (8-23) 03/15/25 10:52 Creatinine 0.7 mg/dL (0.7-1.2) 03/15/25 10:52 GFR Calculation 111.5 mL/min (90-130) 03/15/25 10:52 Glucose 168 mg/dL (65-115) H 03/15/25 10:52 Calculated Osmolality 280 mOsm/kg (285-295) L 03/15/25 10:52 Lactic Acid 2.2 mmol/L (0.5-2.2) 03/15/25 10:52 Calcium 8.7 mg/dL (8.5-10.5) 03/15/25 10:52 Total Bilirubin 1.6 mg/dL (0.15-1.2) H 03/15/25 10:52 AST 25 U/L (0-40) 03/15/25 10:52 ALT 20 U/L (0-41) 03/15/25 10:52 Alkaline Phosphatase 122 U/L (40-130) 03/15/25 10:52 NT-Pro-B Natriuret Pep 3292 pg/mL (0-125) H 03/15/25 10:52 Total Protein 7.1 g/dL (6.6-8.7) 03/15/25 10:52 Albumin 3.5 g/dL (3.5-5.2) 03/15/25 10:52 Globulin 3.6 g/dL (1.3-4.6) 03/15/25 10:52 Procalcitonin 0.97 ng/mL (0-0.5) H 03/15/25 10:52 All radiology interpretation(s) finalized by discharge Discharge Plan Discharge Patient Disposition: Placed in Observation Clinical Impression: Acute exacerbation of chronic obstructive pulmonary disease, Pulmonary fibrosis, Pneumonia 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 of Care Code ED [place] for Kevin Arceo
[2025-03-15 11:03] LABS: Hematocrit 37.9 % (37-53); Hemoglobin 12.30 g/dL (11.27-16.99); Mean Corpuscular HGB Conc 32.5 g/dL (30-55); Mean Corpuscular Hemoglobin 27.7 pg (27-33); Mean Corpuscular Volume 85.4 fl (82-101); Nucleated Red Blood Cells % 0 %; Platelet Count 218 10^3/cmm (157-399); Red Blood Count 4.44 10^6/uL (3.85-5.65); White Blood Count 7.36 10^3/uL (3.29-11.43)
--- OUTSIDE RECORDS SUMMARY | 2025-03-15 11:04 | XMS_ITS | Encounter Summary ---
Author Organization [facility] Address [address] [place] [address] Care Team Providers Care Hvac Tech Name Role Phone Unavailable Primary Care Provider Unavailabl e Reason for Visit * Reason Onset Date Comments Appointment Notification 03/04/2025 Encounter Details Date Type Department Care Team (Late st Contact Info) Description 03/04/2025 Telephone [facility] Vascular Surgery [place] [address] [place] [address] Kaden Mayer MD [address] [facility] [address] [place] [address] Appointment Notification Social History Tobacco [...] on 03/11/2025 as he is hospitalized in [place]. PT also needs to cancel Hospitality room [...]
--- OUTSIDE RECORDS SUMMARY | 2025-03-15 11:05 | XMS_ITS | Patient Health Record ---
Author Organization [facility] Address [address] [place] [address] Care Team Providers Care Handy Man Name Role Phone Aryan Taylor Unavailable [phone] Sameera Patel Unavailable [phone] Allergies No Known Allergies Results Component Value Reference Range Notes UA Without Micro-[place], [place] - [id number] Reviewed date:07/07/2024 02:24:04 PM Interpretation: Performing Lab: Notes/Report: Glucose 2+ Bili 1+ Ketones 0 Sp Lorida 1.020 Blood 0 pH 6.0 Protein +- Urobili +- Nitrites 0 Leukocytes 0 Reason For Referral No Information Medications Medication SIG (Take, Route, Frequency, Duration) Notes Start Date End Date Status 2 ML digoxin 0.25 MG/ML Injection *Reorder from [facility] for eRx and Interaction Alerts* 01/30/2023 Active albuterol 0.417 MG/ML Inhalation Solution INTRAPULMONARY *Reorder from [facility] for eRx and Interaction Alerts* 01/30/2023 Active Loratadine 10 MG Oral Tablet ORAL *Reorder from [facility] for eRx and Interaction Alerts* 01/30/2023 Active Atorvastatin Calcium 10 MG Tablet Oral 01/30/2023 Active predniSONE 5 MG Oral Tablet ORAL *Reorder from [facility] for eRx and Interaction Alerts* 01/30/2023 Active 60 ACTUAT olodaterol 0.0025 MG/ACTUAT Inhalation [place] [Striverdi] INTRAPULMONARY *Reorder from [facility] for eRx and Interaction Alerts* 01/30/2023 Active aspirin 325 MG Delayed Release Oral Tablet ORAL *Reorder from [facility] for eRx and Interaction Alerts* 01/30/2023 Active Potassium Chloride 20 MEQ Powder for Oral Solution ORAL *Reorder from [facility] for eRx and Interaction Alerts* 01/30/2023 Active apixaban 5 MG Oral Tablet [Eliquis] ORAL *Reorder from [facility] for eRx and Interaction Alerts* 01/30/2023 Active Omeprazole Magnesium 20 MG Tablet Delayed Release Oral 01/30/2023 Active Nitroglycerin 0.4 MG Tablet Sublingual Sublingual 01/30/2023 Active Furosemide 40 MG Oral Tablet ORAL *Reorder from [facility] for eRx and Interaction Alerts* 01/30/2023 Active Abiraterone Acetate 250 MG Oral Tablet ORAL *Reorder from [facility] for eRx and Interaction Alerts* 01/30/2023 Active Docusate Sodium 100 MG Oral Tablet ORAL *Reorder from [facility] for eRx and Interaction Alerts* 01/30/2023 Active Calcium Citrate 1500 MG / Cholecalciferol 200 UNT Oral Tablet ORAL *Reorder from [facility] for eRx and Interaction Alerts* 09/24/2023 Active 60 ACTUAT tiotropium 0.0025 MG/ACTUAT Inhalation [place] [Spiriva] INTRAPULMONARY *Reorder from [facility] for eRx and Interaction Alerts* 01/30/2023 Active albuterol 0.833 MG/ML / ipratropium bromide 0.167 MG/ML Inhalation Solution INTRAPULMONARY *Reorder from [facility] for eRx and Interaction Alerts* 01/30/2023 Active Metoprolol Tartrate 75 MG Oral Tablet ORAL *Reorder from [facility] for eRx and Interaction Alerts* 01/30/2023 Active LORazepam 1 MG Oral Tablet ORAL *Reorder from [facility] for eRx and Interaction Alerts* 01/30/2023 Active [...] Problem Status W/U Status Risk Notes Problem assisted (current) use of other agents affecting estrogen receptors and estrogen levels (Z79.818) Active confirmed Problem History of malignant neoplasm of prostate (839394653) Personal history of malignant neoplasm of prostate (Z85.46) Active confirmed Problem Urinary retention (533454479) Urinary retention (R33.9) Active confirmed Problem Bladder neck obstruction (221531039) Bladder neck obstruction (N32.0) Active confirmed Vital Signs Heart Rate 78 /min 07/07/2024 Temperature 98.68 degrees Fahrenheit 07/07/2024 Height-cm 177.80 cm 07/07/2024 Blood pressure diastolic 64 mm Hg 07/07/2024 Weight-kg 99.79 kg 07/07/2024 Height 70.00 in 07/07/2024 Blood pressure systolic 110 mm Hg 07/07/2024 Weight 220.0 lbs 07/07/2024 BMI 31.56 kg/m2 07/07/2024 Encounters Encounter Location Date Provider Diagnosis [facility] [address] [place] [address] 07/07/2024 Sameera Patel Personal history of malignant neoplasm of prostate Z85.46 ; assisted (current) use of other agents affecting estrogen receptors and estrogen levels Z79.818 ; Urinary retention R33.9 ; Urinary urgency R39.15 and Frequency of micturition R35.0 [facility] [address] [place] [address] [place] [address] 03/16/2024 Aryan Leggettsay [facility] [address] [place] [address] 03/16/2024 Aryan Taylor Personal history of malignant neoplasm of prostate Z85.46 and assisted (current) use of other agents affecting estrogen receptors and estrogen levels Z79.818 [facility] [address] [place] [address] 05/19/2024 Aryan Taylor [facility] [address] [place] [address] [place] [address] 06/16/2024 Aryan Taylor assisted (current) use of other agents affecting estrogen receptors and estrogen levels Z79.818 and Personal history of malignant neoplasm of prostate Z85.46 [facility] [address] [place] [address] 07/06/2024 Aryan Taylor [facility] [address] [place] [address] [place] [address] 07/07/2024 Aryan Taylor 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) use of other agents affecting estrogen receptors and estrogen levels Z79.818 and Personal history of malignant neoplasm of prostate Z85.46 [facility] [address] [place] [address] [place] [address] 10/02/2024 Aryan Taylor Assessments Encounter Date Diagnosis (ICD Code) Assessment Notes Treatment Notes Treatment Clinical Notes Section Notes 03/16/2024 Personal history of malignant neoplasm of prostate (ICD-10 - Z85.46) 06/16/2024 assisted (current) use of other agents affecting estrogen receptors and estrogen levels (ICD-10 - Z79.818) 07/07/2024 assisted (current) use of other agents affecting estrogen receptors and estrogen levels (ICD-10 - Z79.818) 07/07/2024 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) use of other agents affecting estrogen [...] PSA checked when advised to do so 03/16/2024 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) use of other agents affecting estrogen [...] should be evaluated by a healthcare provider. 07/07/2024 Personal history of malignant neoplasm of prostate (ICD-10 - Z85.46) 06/16/2024 Personal history of malignant neoplasm of prostate (ICD-10 - Z85.46) 07/07/2024 Urinary urgency (ICD-10 - R39.15) 07/07/2024 Frequency of micturition (ICD-10 - R35.0) Plan Of Treatment Pending Test Test Name Order Date Basic Metabolic Panel (BMP) 30865 2023 Basic Metabolic Panel (BMP) 65927 2024 PSA Diagnostic--[id number] 07/07/2024 Bone Densitometry-74305 07/07/2024 Bone Densitometry-22229 06/16/2024 Bone Densitometry-01999 03/16/2024 Insurance Providers Payer Name Payer Address Payer Phone Subscriber Number Group Number Insured Name Patient Relationship to Insured Coverage Start Date Coverage End Date [employer] [address] [place] [phone] [id number] [employer] Self - patient is the insured Medical (General) History Hospitalization History Reason Date(Month/Year) sars/rsv/pneumonia
--- OUTSIDE RECORDS SUMMARY | 2025-03-15 11:05 | XMS_ITS | Encounter Summary ---
Author Organization [facility] Address [address] [place] [address] Care Team Providers Care Zinc Plate Grainer Name Role Phone Unavailable Primary Care Provider Unavailabl e Encounter Details Date Type Department Care Team (Late st Contact Info) Description 03/03/2025 Orders Only [facility] Vascular Surgery [place] [address] [place] [address] Tiara Sutton RN Social History [...]
--- OUTSIDE RECORDS SUMMARY | 2025-03-15 11:05 | XMS_ITS | Clinical Summary ---
Author Organization [facility]leine [facility] Address [address] [place] [address] Phone Care Team Providers Care Supervisor Agricultural Education Name Role Phone Unavailable Primary Care Provider [...] Type Department Care Team Description 03/04/2025 Telephone [facility] Vascular Surgery [address] [phone] Kaden Mayer MD Appointment Notification 03/04/2025 Telephone [facility] Vascular Surgery [address] [phone] Kaden Mayer MD Follow Up 03/03/2025 3:45 PM CDT Office Visit [facility] Vascular Surgery [address] [phone] Kaden Mayer MD Encounter for pre-operative examination (Primary Dx) 03/03/2025 2:30 PM CDT Ancillary Procedure [facility]- [address] [phone] Kaden Mayer MD PAD (peripheral artery disease) 03/03/2025 Orders Only [facility] Vascular Surgery [address] [phone] Tiara Sutton RN 03/02/2025 11:10 AM CDT Office Visit [facility] [place] [address] [phone] Hannah Powell MD 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); Fuchs' corneal dystrophy of right eye; Pseudophakia of both eyes 01/21/2025 Telephone [facility]hthal[facility] [place] [address] [phone] Hannah Powell MD Information 01/18/2025 2:57 PM CDT Anesthesia Event [facility] Operating Room [address] [place] [address] Ronnie Camejo DO 01/18/2025 1:12 PM CDT - 01/18/2025 2:33 PM CDT Surgery [facility] Operating Room [address] [place] [phone] Kaden Mayer MD FEMORAL ANGIOGRAPHY WITH INTERVENTION 01/18/2025 10:50 AM CDT - 01/19/2025 12:40 PM CDT Hospital Encounter [facility] 3A Surgical [address] [place] [phone] Kaden Mayer MD Peripheral vascular disease, unspecified Discharge Disposition: Home or Self Care 01/18/2025 6:52 AM CDT - 01/18/2025 11:59 PM CDT Hospital Encounter [facility] Interventional Radiology [place] [address] [phone] Kaden Mayer MD Discharge Disposition: Home or Self Care 01/12/2025 External Device Data STL ABSTRACTION Provider, Abstract 01/12/2025 External Device Data [facility] ABSTRACTION Provider, Abstract 01/11/[address] [phone] Kaden Mayer MD Follow Up 01/06/2025 2:45 PM CDT - 01/06/2025 11:59 PM CDT Hospital Encounter [facility] Pre Admission Testing [address] [phone] Kaden Mayer MD Discharge Disposition: Home or Self Care 01/06/2025 1:00 PM CDT Office Visit [facility] Vascular Surgery [address] [phone] Kaden Mayer MD PAD (peripheral artery disease) (Primary Dx); Encounter for preadmission testing 01/06/2025 Telephone [facility] Vascular [address] [phone] Kaden Mayer MD Surgery Talk 01/04/2025 Telephone [facility] Vascular Surgery [address] [place] [phone] Kaden Mayer MD Appointment Verification 12/22/2024 External Device Data STL ABSTRACTION Provider, Abstract 12/22/2024 External Device Data ST[facility] ABSTRACTION Provider, Abstract 12/21/2024 Telephone [facility] Vascular Surgery [address] [phone] Kaden Mayer MD Appointment Notification 12/17/2024 Orders Only [facility] Vascular Surgery [address] [phone] Provider, Abstract from Last 3 Months Immunizations Immunization Administration Dates Next Due (ADACEL/BOOSTRIX)(10 YR UP) TDAP VACCINE, 0.5ML, IM 11/07/2010 (JOSÉ MIGUEL) COVID-19 VACCINE - EMERGENCY USE AUTHORIZATION, AD26,COV2S(PF) 0.5 ML IM SUSP 04/07/2021 (PNEUMOVAX 23)(50 YRS UP) PN EUMOCOCCAL POLYSACCHARIDE (PPV23) 0.5 ML, IM 03/17/2019,03/22/2018,01/20/2018 (PREVNAR 20)(6 WKS UP) PNEUM OCOCCAL CONJUGATE VACCINE 20-VALENT (PCV20), POLYSACCHARIDE [id number] CONJUGATE, ADJUVANT 0.5 ML (PF) IM 02/06/2022 [...] Aneurysm (A AA) Screening 08/23/2019 Medicare Ad[place] ([place]) Preventative Visit/Annual Wellness Visit 06/03/2024 INFLUENZA VACCINE [...] history exists Medical Devices Implanted Type Area Pinion Staker Device Identifier Shelf Expiration Date Model / Serial / Lot Dev Closure Angioseal 6fr Vip [id number] - [id number] Implanted:Qty : 1 on 01/18/2025 by Kaden Mayer MD at [facility] Closure Device Right: Groin TERUMO- CARDIOVASC SYS [id number] 09/21/2025 [id number] / / [id number] Stent Vasc Innova [id number] 30 - [id number] Implanted:Qty : 1 on 01/18/2025 by Kaden Mayer MD at [facility] Stent Left: Superficial Femoral Artery [employer] [id number] 08/05/2029 [id number] / / [id number] Procedures Procedure Name Priority Date/Time Associated [...] 3:08 PM CDT Encounter for preadmission testing [place] DUP/COPY PATIENT'S RECORDS Routine 12/17/2024 11:39 AM CDT from Last 3 Months Results * US DUPLEX ARTERIAL LEG LEFT (03/03/2025 3:51 PM CDT) Anatomical Region Laterality Modality Lower Extremity Ultrasound 03/03/2025 3:05 PM CDT Narrative 03/04/2025 2:48 PM CDT [facility] [address] [place] [address] [place] [address] Noninvasive Vascular Lab Limited Lower Extremity Arterial Duplex Study Patient: Gabino Jones Study ID: US DUPLEX ARTERI Gender: M : 1955 Age: 69 Room: Height: 162.6cm Weight: 92kg BSA: 2.08m^2 Pt status: Outpatient Study Date: 03/03/2025 Study Time: 03:05:58 PM BSA: 2.08m^2 Ordering: Kaden Mayer Interpreting:Kaden Mayer Trailer Park Manager: CDP Indications: V. History: Risk factors: [...] - Max brachial pressure (sys): 164mm Hg [facility] is accredited with the Intersocietal Commission for the Accreditation of Vascular Laboratories (ICAVL) Prepared and Electronically Authenticated Kaden Mayer 03/04/2025 14:48 Procedure Note Kaden Mayer MD - 03/04/[address] [facility] [address] Noninvasive Vascular Lab Limited Lower Extremity Arterial Duplex Study Patient: Gabino Jones Study ID: US DUPLEX ARTERI Gender: M : 1955 Age: 69 Room: Height: 162.6cm Weight: 92kg BSA: 2.08m^2 Pt status: Outpatient Study Date: 03/03/2025 Study Time: 03:05:58 PM BSA: 2.08m^2 Ordering: Kaden Mayer Interpreting:Kaden Mayer Trailer Park Manager: CDP Indications: V. History: Risk factors: [...] - Max brachial pressure (sys): 164mm Hg [facility] is accredited withthe Intersocietal Commission for the Accreditation of Vascular Laboratories (ICAVL) Prepared and Electronically Authenticated Kaden Mayer Confirmed 03/04/2025 14:48 Kaden Mayer MD ORDERABLES Final Result * OCT, RETINA - OU - BOTH EYES (03/02/2025 12:39 PM CDT) Narrative [facility]PH[facility] ORDERS - 03/02/2025 1:14 PM CDT Optical Coherence Tomography ordered to evaluate the status of the macula: RIGHT EYE: Focal outer retinal loss. EZ/IZ disruption. Retinal thinning. Focal RPE irregularity. LEFT EYE: There is no intraretinal fluid or Subretinal fluid. A trace Epiretinal membrane is present Hannah Powell MD OPHTH TOMOGRAPHY Final Result [facility]DERS * TELEMETRY REPORT (01/20/2025 2:08 AM CDT) us Provider Scanning ECG ORDERABLES Final Result * (ABNORMAL) CBC WITH DIFFERENTIAL (01/19/2025 5:46 AM CDT) Only the most recent of2 resultswithin the time period is included. WBC 3.7(L) 4.8 - 10.8 K/uL 01/19/2025 6:14 AM T [facility] RBC 4.58(L) 4.60 - 6.20 M/uL 01/19/2025 6:14 AM T [facility] HEMOGLOBIN 12.5(L) 14.0 - 18.0 g/dL 01/19/2025 6:14 AM [facility] HEMATOCRIT 39.0(L) 41.0 - 53.0 % 01/19/2025 6:14 AM [facility] MCV 85.2 84.0 - 103.0 fL 01/19/2025 6:14 AM [facility] MCH 27.3 27.0 - 34.0 pg 01/19/2025 6:14 AM [facility] MCHC 32.1 30.0 - 35.0 g/dL 01/19/2025 6:14 AM [facility] PLATELETS 133(L) 140 - 440 K/uL 01/19/2025 6:14 AM [facility] MPV 9.7 8.9 - 12.8 fL 01/19/2025 6:14 AM [facility] RDW 17.5(H) 11.0 - 14.5 % 01/19/2025 6:14 AM [facility] RDW-STDEV 54.1(H) 37.0 - 54.0 fL 01/19/2025 6:14 AM [facility] NEUTROPHILS 69 42 - 75 % 01/19/2025 6:14 AM [facility] LYMPHOCYTES 17(L) 24 - 44 % 01/19/2025 6:14 AM [facility] MONOCYTES 12(H) 2 - 10 % 01/19/2025 6:14 AM CDT [facility] EOSINOPHILS 2 0 - 7 % 01/19/2025 6:14 AM CDT [facility] BASOPHILS 1 0 - 1 % 01/19/2025 6:14 AM CDT [facility] IMMATURE GRANULOCYTES 0 0 - 2 % 01/19/2025 6:14 AM CDT [facility] NEUTROPHIL ABSOLUTE 2.58 2.00 - 8.00 K/uL 01/19/2025 6:14 AM CDT [facility] LYMPHOCYTE ABSOLUTE 0.63(L) 1.20 - 4.00 K/uL 01/19/2025 6:14 AM CDT [facility] MONOCYTE ABSOLUTE 0.43 0.10 - 0.60 K/uL 01/19/2025 6:14 AM CDT [facility] EOSINOPHIL ABSOLUTE 0.06 0.00 - 0.70 K/uL 01/19/2025 6:14 AM CDT [facility] BASOPHILS ABSOLUTE 0.03 0.00 - 0.20 K/uL 01/19/2025 6:14 AM CDT [facility] IMMATURE GRANULOCYTES ABSOLUTE 0.01 0.00 - 0.10 K/uL 01/19/2025 6:14 AM CDT [facility] SMEAR REVIEWED: NA - Not Applicable 01/19/2025 6:14 AM CDT [facility] Blood Venipuncture / Unknown 01/19/2025 5:46 AM CDT 01/19/2025 6:08 AM CDT us Kaden Mayer MD HEMATOLOGY ORDERABLES Final Re sult [facility] CLIA # [id number] [address] [place] [address] [place] [address] * (ABNORMAL) POC GLUCOSE (01/18/2025 3:58 PM CDT) Only the most recent of2 resultswithin the time period is included. [facility] Signature GLUCOSE POC 108(H) 74 - 99 mg/dL 01/18/2025 3:58 PM CDT [facility] SPECIMEN SOURCE, GLUCOSE POC Capillary 01/18/2025 3:58 PM CDT [facility] Blood, whole 01/18/2025 3:58 PM CDT 01/18/2025 4:05 PM CDT us Kaden Mayer MD POINT OF CARE TESTING Final Re sult [facility] CLIA # [id number] [address] [address] [place], [place] [id number] * IR FLUORO OR OTHER (01/18/2025 3:52 PM CDT) Narrative 01/18/2025 3:52 PM CDT Order Auto Finalized. Please see associated Operative Report/Progress Note/Procedure Note from the same date. us Kaden Mayer MD IR ORDERABLES Final Result * (ABNORMAL) POC ACTIVATED CLOTTING TIME (01/18/2025 3:30 PM CDT) Pathologist [facility] ACTIVATED CLOTTING TIME POC 285(H) 116 - 140 sec 01/18/2025 3:30 PM CDT [facility] Blood 01/18/2025 3:30 PM CDT 01/19/2025 6:51 PM CDT us Kaden Mayer MD POINT OF CARE TESTING Final Re sult Performing Organization Address City/[facility]/ZIP Co de Phone Number [facility] CLIA # [id number] [address] [address] [place] [address] * VERIFICATION BLOOD GROUP (01/06/2025 3:35 PM CDT) ABO GROUP A 01/06/2025 6:11 PM CDT [facility] RH (D) TYPE Positive 01/06/2025 6:11 PM CDT [facility] Blood Venipuncture / Unknown 01/06/2025 3:35 PM CDT 01/06/2025 5:14 PM CDT us Kaden Mayer MD BLOOD BANK ORDERABLES Final Re sult Performing Organization Address [facility] Co de Phone Number [facility] CLIA#[id number] [address] [place] [address], * RED BLOOD CELL ANTIGEN TYPE (01/06/2025 3:15 PM CDT) Pathologist Ari JMARISSA RED BLOOD CELL ANTIGEN Negative 01/06/2025 11:36 PM CDT [facility] E RED BLOOD CELL ANTIGEN Negative 01/06/2025 11:36 PM CDT [facility] LITTLE C RED BLOOD CELL ANTIGEN Negative 01/06/2025 11:36 PM CDT [facility] Blood Venipuncture / Unknown 01/06/2025 3:15 PM CDT 01/06/2025 5:14 PM CDT us Kaden Mayer MD BLOOD BANK ORDERABLES Edited R esult - Final Performing Organization Address City/[facility] Co de Phone Number [facility] [place] CLIA#[id number] [facility] [place] [address], * BLOOD BANK AB IDENT (01/06/2025 3:15 PM CDT) ANTIBODY #1 Anti-Jka 01/06/2025 11:45 PM CDT [facility] ANTIBODY #2 Anti-c 01/06/2025 11:45 PM CDT [facility] Blood Venipuncture / Unknown 01/06/2025 3:15 PM CDT 01/06/2025 5:14 PM CDT us Kaden Mayer MD BLOOD BANK ORDERABLES Final Re sult Performing Organization Address [facility]/ZIP Co de Phone Number [facility] [employer] [facility] CLIA#[id number] [address] [place] [address], * (ABNORMAL) PROTIME-INR (01/06/2025 3:15 PM CDT) [facility] PROTIME 15.1(H) 12.7 - 14.9 Seconds 01/06/2025 5:39 PM CDT [facility] [employer] [facility] INR 1.1 0.8 - 1.2 01/06/2025 5:39 PM CDT [facility] Blood Venipuncture / Unknown 01/06/2025 3:15 PM CDT 01/06/2025 5:21 PM CDT Narrative [facility] [employer] [facility] - 01/06/2025 5:39 PM CDT Expected Values [...] Mayer MD HEMATOLOGY ORDERABLES Final Re sult [facility] CLIA # [id number] [address] [place] [address] * TYPE AND SCREEN (01/06/2025 3:15 PM CDT) ABO GROUP A 01/06/2025 11:44 PM CDT [facility] RH (D) TYPE Positive 01/06/2025 11:44 PM CDT [facility] ANTIBODY SCREEN Positive 01/06/2025 11:44 PM CDT [facility] Blood Venipuncture / Unknown 01/06/2025 3:15 PM CDT 01/06/2025 5:14 PM CDT Kaden Mayer MD BLOOD BANK ORDERABLES Edited R esult - Final [facility] CLIA#[id number] [address] [place] [address], * (ABNORMAL) BASIC METABOLIC PANEL (01/06/2025 3:15 PM CDT) SODIUM 142 136 - 145 mmol/L 01/06/2025 5:41 PM CDT [facility] POTASSIUM 4.1 3.5 - 5.1 mmol/L 01/06/2025 5:41 PM CDT [facility] CHLORIDE 106 98 - 107 mmol/L 01/06/2025 5:41 PM T [facility] CO2 23 22 - 29 mmol/L 01/06/2025 5:41 PM CDT [facility] CALCIUM 8.9 8.8 - 10.2 mg/dL 01/06/2025 5:41 PM T [facility] BUN 15 8 - 23 mg/dL 01/06/2025 5:41 PM CDT [facility] CREATININE 1.04 0.67 - 1.17 mg/dL 01/06/2025 5:41 PM T [facility] Comment:The GFR result is no t clinically significant on patients <18 or >70 years of age. GLUCOSE 135(H) 74 - 99 mg/dL 01/06/2025 5:41 PM CDT [facility] GFR >60 mL/min/1.7 3 sq meter 01/06/2025 5:41 PM CDT [facility] Comment:eGFR calculated with 2020 CKD-EPI equation. Vegetarian diet, extremely high or low muscle mass, and may affect results. Cystatin C with Glomerular Filtration Rate is a suitable alternative for these patients. 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 Business Intelligence Consultant: : 1955 Requested By: Order Number: [id number] Reading MD: Karla Francis Measurements Intervals [place] Rate: 91 P: 0 LA: 0 QRS: 35 QRSD: 126 T: 54 QT: 384 QTc: 472 Interpretive Statements Atrial fibrillation Right bundle branch block Possible Inferior infarct, age undetermined Abnormal ECG Electronically Signed On 01-06-2025 20:21:31 CDT by Karla Francis Procedure Note Karla Francis, - 01/06/[address] [address] Test Date: 2025-01-06 Pat Name: GABINO JONES Department: 12 Room: Gender: Male Sap Business Intelligence Consultant: LIN : 1955 Requested By: Order Number: [id number] Reading MD: Karla Francis Measurements Intervals [place] Rate: 91 P: 0 LA: 0 QRS: 35 QRSD: 126 T: 54 QT: 384 QTc: 472 Interpretive Statements Atrial fibrillation Right bundle branch block Possible Inferior infarct, age undetermined Abnormal ECG Electronically Signed On 01-06-2025 20:21:31 CDT by Karla Francis us Kaden Mayer MD ECG ORDERABLES Final Result INTERFACE SYSTEM Refer to clinic/hospital department * [place] DUP/COPY PATIENT'S RECORDS (12/17/2024 11:39 AM CDT) us Abstract Provider [place] - DENTAL Final Result from Last 3 Months Insurance MEDICARE PART A HOSPITAL ONLY [employer] HMO DSNP Member Subscriber Plan / Payer ( fective 2000-Present) Name:Gabino Jones Relation to Subscriber:Self Name:Gabino Jones Payer ID:Not on file Group ID:Not on file [place] Address: [address] [phone] * Guarantor: JOSEPHINE NGUYEN[employer] [facility] M ([facility]) Account Type Relation to Patient Date of Phone Billing Address Corporate Other DEFAULT ADDRESS [address] [place] * Guarantor: JOSEPHINE SOL[employer] [facility] M (C) Account Type Relation to Patient Date of Phone Billing Address Corporate Other DEFAULT ADDRESS [address] [place] * Guarantor: R[facility] M (C) Account Type Relation to Patient Date of Phone Billing [facility] Other DEFAULT ADDRESS [address] [place] Advance Directives For more information, please contact: [phone] * Full Code (Latest Code Status on File) Date Activated Date Inactivated Comments 09/05/2022 11:49 PM 09/07/2022 1:06 PM
[2025-03-15] MEDS: methylPREDNISolone sod succ 125 mg/2 mL INJ IVP (11:20)
[2025-03-15 11:25] LABS: Alanine Aminotransferase 20 U/L (0-41); Albumin Level 3.5 g/dL (3.5-5.2); Alkaline Phosphatase 122 U/L (40-130); Anion Gap 16.4 (5-19); Aspartate Amino Transferase 25 U/L (0-40); Blood Urea Nitrogen 13 mg/dL (8-23); Calcium 8.7 mg/dL (8.5-10.5); Carbon Dioxide 26 mmol/L (22-29); Chloride 94 mmol/L (98-107); Creatinine Clr Calc Pharmacy 96.2262; Globulin 3.6 g/dL (1.3-4.6); Glucose 168 mg/dL (65-115); Osmolality Calculated 280 mOsm/kg (285-295); Potassium 3.4 mmol/L (3.5-5.1); Sodium 133 mmol/L (136-145); Total Protein 7.1 g/dL (6.6-8.7)
[2025-03-15 11:29] LABS: ABG PCO2 34.2 mmHg (35-45); ABG PH Result 7.49 (7.35-7.45); Alveolar-Arterial Oxygen Gradi 11.5 mmHg (5-10); Arterial Blood Gas Hematocrit 37.0 % (42-52); Blood Gas LPM 3.0 %; Blood Gas Operator Identificat AMH; Blood Gas Sample Site Brachial, right; Blood Gas Sample Type Arterial; Carboxyhemoglobin 1.7 %THgb (0.4-20.1); Glucose Level-ABG 143.0 mg/dL (70-115); HCO3 ABG 26.1 mmol/L (22-26); Ionized Calcium Level - ABG 1.1 mmol/L (1.1-1.4); Methemoglobin 0.3 % (0.4-1.5); Oxygen Saturation ABG 98.6; PO2 ABG 96.4 mmHg (80.0-100.0); PO2 FiO2 Ratio Arterial Blood 301; Potassium Level - ABG 3.3 mmol/L (3.5-5.0); Sodium Level - ABG 133.0 mmol/L (131-143)
[2025-03-15 11:50] LABS: Lactic Sepsis W/Reflex 2.2 mmol/L (0.5-2.2)
[2025-03-15 11:55] LABS: Procalcitonin 0.97 ng/mL (0-0.5)
[2025-03-15 12:27] LABS: NT Pro B Type Natriuretic Pept 3292 pg/mL (0-125)
--- NOTE | 2025-03-15 12:30 | PM.HP ---
Providers/Chief Complaint Primary Care Provider: PATO Hernandez Chief Complaint: Sob History of Present Illness Gabino Jones Sr is a 69 year old male with past medical history of COPD, hypertension, hyperlipidemia, diastolic heart failure who was recently discharged from the hospital after getting treatment for community-acquired pneumonia on 03/10 presents back to the ER today because of difficulty in breathing, cough with expectoration worsening since last night. Patient states he has been having cough and been feeling weak since 2 days after discharge but overnight had more difficulty in breathing had episodes of confusion hence presented to the ER today. In the ER he was requiring up to 3 L of oxygen supplementation with baseline of around 2 L to maintain his saturation. Complains of weakness. Denies any nausea, vomiting. Does complain of 1 episode of vomiting since discharge which he aspirated. Review of Systems General: Reports: 10 or more systems reviewed and unremarkable except in HPI and below Const: Denies: fever(s), chills, body aches, change in appetite, change in weight, malaise, night sweats, diaphoresis, change in sleep pattern, daytime sleepiness or snoring Eyes: Denies: change in vision, blurry vision, photophobia, eye discomfort or eye discharge ENMT: Denies: throat pain, enlarged tonsils, hoarseness, mouth pain, oral sores, dry mouth, tinnitus, nasal congestion or post nasal drip Card: Denies: chest pain, palpitations, irregular heart rhythm, edema, swelling of feet/ankles, lightheadedness, syncope, pre-syncope, dyspnea on exertion, orthopnea, leg pain with exertion or acrocyanosis Resp: Denies: dyspnea, productive cough, non-productive cough, wheezing, stridor, pain on inspiration, change in phlegm color, hemoptysis or chest congestion GI: Denies: abdominal pain, nausea, vomiting, hematemesis, coffee ground emesis, dysphagia, heartburn, diarrhea, constipation, bloating, GI cramping, change in bowel habits, pain on defecation, hematochezia or melena : Denies: flank pain, difficulty urinating, dysuria, urinary frequency, urinary urgency, urinary hesitancy, urinary dribbling, difficulty starting urination, change in urine stream, nocturia or hematuria Musc: Denies: neck pain, back pain, extremity pain, joint pain, joint swelling, joint redness, joint stiffness or limited range of motion Neuro: Denies: headache(s), numbness in extremities, weakness in extremities, sensory changes, lack of coordination, difficulty walking, frequent falls, dizziness, vertigo, confusion, Slurred speech present, difficulty communicating thoughts or seizure-like activity Psych: Denies: anxiety, depression, mood swings, panic attacks, hopelessness or irritability Endo: Denies: polyuria, polydipsia, tired all the time, cold intolerance, excessive sweating, flushing or heat intolerance Chavez/Lymph: Denies: easy bruising or easy bleeding All/Imm: Denies: tongue swelling, facial swelling or acute wheezing Medications/Allergies Home Medications ?Medication ?Instructions ?Recorded ?Confirmed ?Last Taken ?Type apixaban 5 mg tablet (Eliquis) 5 mg PO BID #60 tabs 10/16/19 03/15/25 03/15/25 Rx furosemide 40 mg tablet (Lasix) 40 mg PO QAM 03/28/21 03/15/25 03/15/25 History Held on 03/10/25. Instructions: Resume on 03/12/25. potassium chloride 20 mEq 20 meq PO QAM 03/28/21 03/15/25 03/15/25 History tablet,extended release albuterol sulfate 90 mcg/actuation 2 inh inhalation Q4H PRN shortness 07/27/22 03/15/25 09/14/24 Rx aerosol inhaler of breath or wheezing #18 grams tamsulosin 0.4 mg capsule (Flomax) 0.4 mg PO BID 02/25/23 03/15/25 03/15/25 History loratadine 10 mg tablet 10 mg PO QAM 05/15/23 03/15/25 03/15/25 History digoxin 250 mcg (0.25 mg) tablet 250 mcg PO QAM 08/04/23 03/15/25 03/15/25 History nitroglycerin 0.4 mg sublingual 0.4 mg sublingual Q5M PRN Chest 08/04/23 03/15/25 03/15/24 History tablet (Nitrostat) Pain blood-glucose meter (Blood Glucose #1 ea 05/13/24 03/15/25 Unknown Rx Monitoring kit) lancets #100 ea 05/13/24 03/15/25 Unknown Rx pen needle, diabetic 32 gauge x #50 ea 05/13/24 03/15/25 Unknown Rx 1/4 (BD Ultra-Fine Micro Pen Needle) levothyroxine 125 mcg tablet 125 mcg PO QAM 07/09/24 03/15/25 03/15/25 History diclofenac sodium 1 % topical gel 4 g topical QID PRN joint pain 08/24/24 03/15/25 Unknown Rx #100 grams insulin glargine 100 unit/mL (3 10 unit (0.1 mL) SUBCUT DAILY #15 09/14/24 03/15/25 03/15/25 Rx mL) subcutaneous pen (Lantus mL Solostar U-100 Insulin) fluticasone 100 mcg-salmeterol 50 1 inh inhalation BEDTIME 09/15/24 03/15/25 03/14/25 History mcg/dose blistr powdr for inhalation (Advair Diskus) folic acid 1 mg tablet 1 mg PO DAILY #30 tabs 12/11/24 03/15/25 03/15/25 Rx albuterol sulfate 2.5 mg/3 mL 2.5 mg inhalation Q6H PRN 01/28/25 03/15/25 02/28/25 History (0.083 %) solution for nebulization Shortness Of Breath aspirin 81 mg tablet,delayed 81 mg PO DAILY 01/28/25 03/15/25 03/15/25 History release atorvastatin 20 mg tablet 10 mg PO BEDTIME 01/28/25 03/15/25 03/14/25 History cholecalciferol (vitamin D3) 50 50 mcg PO DAILY 01/28/25 03/15/25 03/15/25 History mcg (2,000 unit) tablet (Vitamin D3) clopidogrel 75 mg tablet 75 mg PO DAILY 01/28/25 03/15/25 03/15/25 History gabapentin 100 mg capsule 200 mg PO TID 01/28/25 03/15/25 03/15/25 History metoprolol tartrate 25 mg tablet 37.5 mg PO BID 01/28/25 03/15/25 03/15/25 History sennosides 8.6 mg-docusate sodium 1 tab PO DAILY 01/28/25 03/15/25 03/15/25 History 50 mg tablet sertraline 100 mg tablet 100 mg PO QPM 01/28/25 03/15/2503/14/25 History tiotropium bromide 2.5 2 puff inhalation DAILY 01/28/25 03/15/25 03/15/25 History mcg/actuation mist for inhalation (Spiriva Respimat) calcium carbonate 500 mg PO BID 03/09/25 03/15/25 03/15/25 History cyanocobalamin (vitamin B-12) 100 100 mcg PO DAILY 03/09/25 03/15/25 03/15/25 History mcg tablet (Vitamin B-12) empagliflozin 25 mg tablet 12.5 mg PO DAILY 03/09/25 03/15/25 03/15/25 History (Jardiance) pantoprazole 40 mg tablet,delayed 40 mg PO BID 03/09/25 03/15/25 03/15/25 History release azithromycin 250 mg tablet 250 mg PO DAILY 03/15/25 03/15/25 03/15/25 History cefdinir 300 mg capsule 300 mg PO BID x5days 03/15/25 03/15/25 03/15/25 History Allergies Allergy/AdvReac Type Severity Reaction Status Date / Time No Known Allergies Allergy Verified 03/11/25 14:51 PFSH Acute PFSH: Medical History (Updated 03/15/25 @ 14:23 by Fran Wyatt MD) Low back pain radiating to lower extremity Greater trochanteric bursitis of left hip Decompensated heart failure Peripheral artery occlusion Port-A-Cath in place 12/02/23 Dr Roberts Greater trochanteric bursitis of right hip Prostate cancer History of colon polyps Chronic anticoagulation eliquis, for afib Chronic respiratory failure with hypoxia Heart failure with preserved ejection fraction Coronary artery disease CHF (congestive heart failure) Last echocardiogram normal EF, grade 2/4 diastolic dysfunction October 2019 Hypertension Anemia Atrial fibrillation GERD (gastroesophageal reflux disease) Hypothyroidism Hyperlipidemia COPD (chronic obstructive pulmonary disease) Surgical History History of cataract surgery Left eye - 12/2022 H/O prostate biopsy S/P appendectomy S/P cholecystectomy History of colonoscopy (~04/2020) History of vasectomy History of knee surgery History of coronary artery bypass graft (03/2019) [address] [place] [address] Family History Father , IN HIS 50'S Lung disease tuberculosis Mother , AT AGE 63 CAD (coronary artery disease) Diabetes Hypertension Sister Cancer Denies family history of Clotting disorder Dementia Hyperlipidemia Psychiatric illness Chronic kidney disease (CKD) Suicide Anesthesia complication Bleeding disorder Stroke Social History Smoking and tobacco/nicotine status: former use of tobacco/nicotine Quit status (tobacco/nicotine): has quit using Year quit tobacco: 2017 - PPD x 52 Years Alcohol intake: never Substance/Drug Use: never Lives independently: Yes Household members: none Marital status: Legally Current occupational status: employed and retired Do you think of yourself as: Straight/Heterosexual Current gender identity: Male Vitals/I&O/Wt Last Vital Signs Temp 98.6 F 03/15/25 10:39 Pulse 94 03/15/25 12:20 Resp 24 H 03/15/25 12:20 BP 121/52 03/15/25 12:20 Pulse Ox 98 03/15/25 12:20 O2 Del Method Nasal Cannula 03/15/25 12:20 O2 Flow Rate 4 03/15/25 12:20 Weight last 48 hrs Weight 88.451 kg Physical Exam Narrative: General: No acute distress, AO x3 HEENT: PERRLA, pupils bilaterally equal and reactive Chest: Bilateral bronchial breath sounds all over lung rivera with occasional rhonchi, crackles present left middle zone CVS: S1-S2 regular, no murmurs, no tachycardia, no gallops, no rubs Abdomen: Soft, nontender, no organomegaly, bowel sounds present Neuro: No focal deficits, no facial deformity, AO x3, power 5/5 in all limbs Data 03/15/25 10:52 03/15/25 10:52 Micro: Microbiology 03/15/25 11:43 Blood Culture - Preliminary Blood SPECIMEN COLLECTED 03/15/25 11:41 Blood Culture - Preliminary Blood SPECIMEN COLLECTED A&P Assessment and plan 1. Acute on chronic hypoxic respiratory failure: 2. Aspiration pneumonia of left upper lobe due to vomit: 3. Acute exacerbation of chronic obstructive pulmonary disease: 4. Chronic diastolic congestive heart failure: 5. Paroxysmal atrial fibrillation: 6. Coronary artery disease: 7. Hypertension: Plan: Acute on chronic hypoxic respiratory failure: Most likely in setting of aspiration pneumonia due to aspiration of vomitus leading to COPD exacerbation. Gives history of vomiting after previous discharge prior to initiation of symptoms this time. Had modified barium swallow done during prior admission. Appreciate results. Check sputum culture, D-dimer, blood culture, bacterial antigen. MRSA swab. If D-dimer elevated will plan for CTA chest otherwise CT chest without contrast. Oxygen supplementation keeping saturation over 88%. Solu-Medrol 40 mg Q8 hourly. Pulmicort twice daily, ipratropium, Xopenex every 6 hour. Empirically start on IV Zosyn, oral azithromycin for now. Does have a history of diastolic heart failure. Currently patient euvolemic. Fluid restriction to less than 1500 cc. Hold off on any IV fluids or diuretics for now. Monitor fluid status. Strict input output charting, daily weights. Paroxysmal A-fib: Appreciate recent digoxin levels. Continue with home dose of digoxin, metoprolol. Telemonitoring. Home dose of Eliquis. Continue other chronic home medications. CODE STATUS: Daughter will be DPOA. Full code. Carb consistent cardiac diet Protonix for PUD prophylaxis Eliquis will be sufficient for DVT prophylaxis PDMP PDMP Reviewed: Not Reviewed Attestations Medical Necessity Statement*: Admission for more than 2 midnights for management of acute on chronic hypoxic respiratory failure with concern for aspiration pneumonitis, COPD exacerbation Diagnoses Acute on chronic hypoxic respiratory failure J96.21 Aspiration pneumonia of left upper lobe due to vomit J69.0 Pneumonia type: aspiration pneumonia Aspiration pneumonia type: due to vomit Laterality: left Lung location: upper lobe of lung Acute exacerbation of chronic obstructive pulmonary disease J44.1 Chronic diastolic congestive heart failure I50.32 Heart failure type: diastolic Heart failure chronicity: chronic Paroxysmal atrial fibrillation I48.0 Atrial fibrillation type: paroxysmal Coronary artery disease I25.10 Hypertension I10
--- NOTE | 2025-03-15 13:10 | PC.NURSE ---
report given to Padmini in CSU
--- NOTE | 2025-03-15 13:13 | PC.PHAR ---
pt states he left the hospital with 2 new abx and no other changes to med list. Pt did take am meds.
[2025-03-15 13:17] LABS: Reflex Lactate Order REFLEX LACTIC ORDERD
[2025-03-15] MEDS: levofloxacin-dextrose 5 % 500 MG/100 ML PREMIX 100 MG IV (14:10)
[2025-03-15] MEDS: methylPREDNISolone sod succ 40 mg/mL INJ IVP ×2 (14:10→23:05)
[2025-03-15 14:11] LABS: Lactic Acid level (Lactate) 1.2 mmol/L (0.5-2.2)
--- NOTE | 2025-03-15 14:15 | CT_ITS ---
WS: [id number] CT CHEST ANGIOGRAPHY WITH REFORMATS HISTORY: resp failure, elevated dimer TECHNIQUE: Contiguous axial images are obtained through the chest during arterial injection of intravenous contrast. Images are reconstructed to evaluate the pulmonary arteries. MIP imaging also reviewed. All CT scans at [facility] use at least one of these dose optimization techniques: automated exposure control; mA and/or kV adjustment per patient size (includes targeted exams where dose is matched to clinical indication); or iterative reconstruction. CONTRAST: Omnipaque 350; 100 mL IV. DLP: 405.58 mGy.cm COMPARISON: 03/01/2025 There are opacification of the pulmonary artery. No filling defects or pulmonary emboli identified. Normal size thoracic aorta with atherosclerotic plaque. Heart is slightly enlarged. No RIGHT heart strain. No pericardial effusion. Severe bullous emphysema. New dense consolidation has numerous cavitations has developed in the mid LEFT lung which extends between the LEFT upper and LEFT lower lobes. Patient has additional changes of UIP. Honeycombing with bronchiectasis at the lung bases is reidentified. No pneumothorax. No pleural effusions. Prior CABG. Mildly prominent lymphoid tissue at the hilar regions measuring up to 1.3 cm. This is probably reactive. Prior cholecystectomy. Normal adrenal glands. Cyst upper pole RIGHT kidney. Atherosclerotic calcification suprarenal aorta. Limited evaluation of the mesenteric arteries due to phase of contrast injection. Large hiatal hernia. CT/CT angio chest PE protcl [id number] IMPRESSION: 1. No pulmonary embolism. 2. No RIGHT heart strain. 3. Mild cardiomegaly. 4. Prior CABG. 5. Dense consolidation with cavitations in the mid LEFT lung. Greatest consoli dation LEFT upper lobe but also extends into the LEFT lower lobe. Most likely p neumonia. 6. Superimposed UIP. 7. Prior cholecystectomy. 8. Severe bullous emphysema.
[2025-03-15 14:26] LABS: Iron 17 ug/dL (59-158); Total Iron Binding Capacity 156 mcg/dl; Unsaturated Iron Binding 139 ug/dL (112-347)
[2025-03-15 14:41] LABS: Vitamin B12 614 pg/mL (232-1245)
[2025-03-15 14:49] LABS: Estmated Average Glucose 137; Hemoglobin A1C 6.4 % (4.0-6.0)
[2025-03-15] MEDS: piperacillin-tazobactam 3.375 GM in sodium chloride 0.9% (plus) 50 ML IV ×2 (15:45→21:11)
[2025-03-15 16:13] LABS: MRSA PCR OZH (swab) NOT DETECTED (Negative)
[2025-03-15 17:33] LABS: Coronavirus 229E,HKU1,NL63,OC4 Not Detected (NOT DETECT); Parainfluenza Virus Type 1 Not Detected (NOT DETECT); Parainfluenza Virus Type 2 Not Detected (NOT DETECT); Parainfluenza Virus Type 3 Not Detected (NOT DETECT); Parainfluenza Virus Type 4 Not Detected (NOT DETECT); SARS-COV-2 Not Detected (NOT DETECT)
[2025-03-15 18:22] LABS: Glucose Urine UA 3+ (Normal); Nitrate Urine Negative (Negative)
[2025-03-15 18:37] LABS: Specific Gravity, Urine 1.051 (1.005-1.030)
[2025-03-15 18:39] LABS: Add Urine Microscopic? YES
--- OUTSIDE RECORDS SUMMARY | 2025-03-15 18:42 | XMS_ITS | Encounter Summary ---
Author Organization [facility] Address [address] [place] [address] Care Team Providers Care Property Management Assistant Name Role Phone Unavailable Primary Care Provider Unavailabl e Encounter Details Date Type Department Care Team (Late st Contact Info) Description 03/03/2025 Orders Only [facility] Vascular Surgery [place] [address] [place] [address] Tiara Sutton RN Social History [...]
--- OUTSIDE RECORDS SUMMARY | 2025-03-15 18:42 | XMS_ITS | Encounter Summary ---
Author Organization [facility] Address [address] [place] [address] Care Team Providers Care Manufacturing Project Engineer Name Role Phone Unavailable Primary Care Provider Unavailabl e Reason for Visit * Reason Onset Date Comments Appointment Notification 03/04/2025 Encounter Details Date Type Department Care Team (Late st Contact Info) Description 03/04/2025 Telephone [facility] Vascular Surgery [place] [address] [place] [address] Kaden Mayer MD [address] [facility] [address] [place] [address] Appointment Notification Social History Tobacco [...] on 03/11/2025 as he is hospitalized in [place]. PT also needs to cancel Hospitality room [...]
--- OUTSIDE RECORDS SUMMARY | 2025-03-15 18:42 | XMS_ITS | Clinical Summary ---
Author Organization Madeleine Jarrett Address [address] [facility] [address] [place] [address] Phone Care Team Providers Care Cultural Anthropology Professor Name Role Phone Unavailable Primary Care Provider [...] Type Department Care Team Description 03/04/2025 Telephone [facility] [address] [phone] Kaden Mayer MD Appointment Notification 03/04/2025 Telephone [facility] [address] [phone] Kaden Mayer MD Follow Up 03/03/2025 3:45 PM CDT Office Visit [facility] [address] [phone] Kaden Mayer MD Encounter for pre-operative examination (Primary Dx) 03/03/2025 2:30 PM CDT Ancillary Procedure [facility]- [address] [phone] Kaden Mayer MD PAD (peripheral artery disease) 03/03/2025 Orders Only [facility] [address] [phone] Tiara Sutton RN 03/02/2025 11:10 AM CDT Office Visit [facility] [place] [address] [phone] Hannah Powell MD 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); Fuchs' corneal dystrophy of right eye; Pseudophakia of both eyes 01/21/2025 Telephone [facility] [place] [address] [phone] Hannah Powell MD Information 01/18/2025 2:57 PM CDT Anesthesia Event [facility] [address] [place] [phone] Ronnie Camejo DO 01/18/2025 1:12 PM CDT - 01/18/2025 2:33 PM CDT Surgery [facility] [address] [place] [phone] Kaden Mayer MD FEMORAL ANGIOGRAPHY WITH INTERVENTION 01/18/2025 10:50 AM CDT - 01/19/2025 12:40 PM CDT Hospital Encounter [facility] [address] [place] [phone] Kaden Mayer MD Peripheral vascular disease, unspecified Discharge Disposition: Home or Self Care 01/18/2025 6:52 AM CDT - 01/18/2025 11:59 PM CDT Hospital Encounter [facility] Interventional Radiology OR [address] [phone] Kaden Mayer MD Discharge Disposition: Home or Self Care 01/12/2025 External Device Data [facility] ABSTRACTION Provider, Abstract 01/12/2025 External Device Data [facility] ABSTRACTION Provider, Abstract 01/11/[address] [phone] Kaden Mayer MD Follow Up 01/06/2025 2:45 PM CDT - 01/06/2025 11:59 PM CDT Hospital Encounter [facility] Pre Admission Testing [address] [phone] Kaden Mayer MD Discharge Disposition: Home or Self Care 01/06/2025 1:00 PM CDT Office Visit [facility] [address] [phone] Kadne Mayer MD PAD (peripheral artery disease) (Primary Dx); Encounter for preadmission testing 01/06/2025 Telephone [facility] [address] [phone] Kaden Mayer MD Surgery Talk 01/04/2025 Telephone [facility] [address] [place] [phone] Kaden Mayer MD Appointment Verification 12/22/2024 External Device Data ST[facility] ABSTRACTION Provider, Abstract 12/22/2024 External Device Data [facility] ABSTRACTION Provider, Abstract 12/21/2024 Telephone [facility] [address] [phone] Kaden Mayer MD Appointment Notification 12/17/2024 Orders Only [facility] [address] [phone] Provider, Abstract from Last 3 Months Immunizations Immunization Administration Dates Next Due (ADACEL/BOOSTRIX)(10 YR UP) TDAP VACCINE, 0.5ML, IM 11/07/2010 (JOSÉ MIGUEL) COVID-19 VACCINE - EMERGENCY USE AUTHORIZATION, AD26,COV2S(PF) 0.5 ML IM SUSP 04/07/2021 (PNEUMOVAX 23)(50 YRS UP) PN EUMOCOCCAL POLYSACCHARIDE (PPV23) 0.5 ML, IM 03/17/2019,03/22/2018,01/20/2018 (PREVNAR 20)(6 WKS UP) PNEUM OCOCCAL CONJUGATE VACCINE 20-VALENT (PCV20), POLYSACCHARIDE [id number] CONJUGATE, ADJUVANT 0.5 ML (PF) IM 02/06/2022 [...] history exists Medical Devices Implanted Type Area Customer Acquisition Manager Device Identifier Shelf Expiration Date Model / Serial / Lot Dev Closure Angioseal 6fr Vip [id number] - [id number] Implanted:Qty : 1 on 01/18/2025 by Kaden Mayer MD at [facility] Closure Device Right: Groin TERUMO- CARDIOVASC SYS [id number] 09/21/2025 [id number] / / [id number] Stent Vasc Innova [id number] 30 - [id number] Implanted:Qty : 1 on 01/18/2025 by Kaden Mayer MD at [facility] Stent Left: Superficial Femoral Artery [employer] [id number] 08/05/2029 [id number] Procedures Procedure Name Priority Date/Time Associated [...] 3:08 PM CDT Encounter for preadmission testing NM DUP/COPY PATIENT'S RECORDS Routine 12/17/2024 11:39 AM CDT from Last 3 Months Results * US DUPLEX ARTERIAL LEG LEFT (03/03/2025 3:51 PM CDT) Anatomical Region Laterality Modality Lower Extremity Ultrasound 03/03/2025 3:05 PM CDT Narrative 03/04/2025 2:48 PM CDT [facility] [address] [place] [address] Noninvasive Vascular Lab Limited Lower Extremity Arterial Duplex Study Patient: Gabino Jones Study ID: US DUPLEX ARTERI Gender: M : 1955 Age: 69 Room: Height: 162.6cm Weight: 92kg BSA: 2.08m^2 Pt status: Outpatient Study Date: 03/03/2025 Study Time: 03:05:58 PM BSA: 2.08m^2 Ordering: Kaden Mayer Interpreting:Kaden Mayer Slot Operations Manager: CDP Indications: V. History: Risk factors: [...] - Max brachial pressure (sys): 164mm Hg [facility] is accredited with the Intersocietal Commission for the Accreditation of Vascular Laboratories (ICAVL) Prepared and Electronically Authenticated Kaden Mayer Confirmed 03/04/2025 14:48 Procedure Note Kaden Mayer MD - 03/04/2025 [facility] [address] [place] [address] [place] [address] Noninvasive Vascular Lab Limited Lower Extremity Arterial Duplex Study Patient: Gabino Jones Study ID: US DUPLEX ARTERI Gender: M : 1955 Age: 69 Room: Height: 162.6cm Weight: 92kg BSA: 2.08m^2 Pt status: Outpatient Study Date: 03/03/2025 Study Time: 03:05:58 PM BSA: 2.08m^2 Ordering: Kaden Mayer Interpreting:Kaden Mayer Slot Operations Manager: CDP Indications: V. History: Risk factors: [...] - Max brachial pressure (sys): 164mm Hg [facility] is accredited withthe Intersocietal Commission for the Accreditation of Vascular Laboratories (ICAVL) Prepared and Electronically Authenticated Kaden Mayer Confirmed 03/04/2025 14:48 Kaden Mayer MD US ORDERABLES Final Result * OCT, RETINA - OU - BOTH EYES (03/02/2025 12:39 PM CDT) Narrative [facility] OPHTHALMOLOGY ORDERS - 03/02/2025 1:14 PM CDT Optical Coherence Tomography ordered to evaluate the status of the macula: RIGHT EYE: Focal outer retinal loss. EZ/IZ disruption. Retinal thinning. Focal RPE irregularity. LEFT EYE: There is no intraretinal fluid or Subretinal fluid. A trace Epiretinal membrane is present Hannah Powell MD OPHTH TOMOGRAPHY Final Result [facility] OPHTHALMOLOGY ORDERS * TELEMETRY REPORT (01/20/2025 2:08 AM CDT) us Provider Scanning ECG ORDERABLES Final Result * (ABNORMAL) CBC WITH DIFFERENTIAL (01/19/2025 5:46 AM CDT) Only the most recent of2 resultswithin the time period is included. [facility] WBC 3.7(L) 4.8 - 10.8 K/uL 01/19/2025 6:14 AM T [facility] RBC 4.58(L) 4.60 - 6.20 M/uL 01/19/2025 6:14 AM T [facility] HEMOGLOBIN 12.5(L) 14.0 - 18.0 g/dL 01/19/2025 6:14 AM [facility] HEMATOCRIT 39.0(L) 41.0 - 53.0 % 01/19/2025 6:14 AM [facility] MCV 85.2 84.0 - 103.0 fL 01/19/2025 6:14 AM [facility] MCH 27.3 27.0 - 34.0 pg 01/19/2025 6:14 AM [facility] MCHC 32.1 30.0 - 35.0 g/dL 01/19/2025 6:14 AM [facility] PLATELETS 133(L) 140 - 440 K/uL 01/19/2025 6:14 AM [facility] MPV 9.7 8.9 - 12.8 fL 01/19/2025 6:14 AM [facility] RDW 17.5(H) 11.0 - 14.5 % 01/19/2025 6:14 AM [facility] RDW-STDEV 54.1(H) 37.0 - 54.0 fL 01/19/2025 6:14 AM [facility] NEUTROPHILS 69 42 - 75 % 01/19/2025 6:14 AM [facility] LYMPHOCYTES 17(L) 24 - 44 % 01/19/2025 6:14 AM [facility] MONOCYTES 12(H) 2 - 10 % 01/19/2025 6:14 AM T [facility] EOSINOPHILS 2 0 - 7 % 01/19/2025 6:14 AM CDT [facility] BASOPHILS 1 0 - 1 % 01/19/2025 6:14 AM CDT [facility] IMMATURE GRANULOCYTES 0 0 - 2 % 01/19/2025 6:14 AM CDT [facility] NEUTROPHIL ABSOLUTE 2.58 2.00 - 8.00 K/uL 01/19/2025 6:14 AM CDT [facility] LYMPHOCYTE ABSOLUTE 0.63(L) 1.20 - 4.00 K/uL 01/19/2025 6:14 AM CDT [facility] MONOCYTE ABSOLUTE 0.43 0.10 - 0.60 K/uL 01/19/2025 6:14 AM CDT [facility] EOSINOPHIL ABSOLUTE 0.06 0.00 - 0.70 K/uL 01/19/2025 6:14 AM CDT [facility] BASOPHILS ABSOLUTE 0.03 0.00 - 0.20 K/uL 01/19/2025 6:14 AM CDT [facility] IMMATURE GRANULOCYTES ABSOLUTE 0.01 0.00 - 0.10 K/uL 01/19/2025 6:14 AM CDT [facility] SMEAR REVIEWED: NA - Not Applicable 01/19/2025 6:14 AM [facility] Blood Venipuncture / Unknown 01/19/2025 5:46 AM CDT 01/19/2025 6:08 AM CDT Kaden Mayer MD HEMATOLOGY ORDERABLES Final Re sult [facility] CLIA # [id number] [address] [place] [address] [id number] * (ABNORMAL) POC GLUCOSE (01/18/2025 3:58 PM CDT) Only the most recent of2 resultswithin the time period is included. GLUCOSE POC 108(H) 74 - 99 mg/dL 01/18/2025 3:58 PM CDT [facility] SPECIMEN SOURCE, GLUCOSE POC Capillary 01/18/2025 3:58 PM CDT [facility] Blood, whole 01/18/2025 3:58 PM CDT 01/18/2025 4:05 PM CDT us Kaden Mayer MD POINT OF CARE TESTING Final Re sult Performing Organization Address [facility]/ZIP Co de Phone Number [facility] CLIA # [id number] [address] [address] [place] [address] * IR FLUORO OR OTHER (01/18/2025 3:52 PM CDT) Narrative 01/18/2025 3:52 PM CDT Order Auto Finalized. Please see associated Operative Report/Progress Note/Procedure Note from the same date. Kaden Mayer MD IR ORDERABLES Final Result * (ABNORMAL) POC ACTIVATED CLOTTING TIME (01/18/2025 3:30 PM CDT) ACTIVATED CLOTTING TIME POC 285(H) 116 - 140 sec 01/18/2025 3:30 PM CDT [facility] Blood 01/18/2025 3:30 PM CDT 01/19/2025 6:51 PM CDT Kaden Mayer MD POINT OF CARE TESTING Final Re sult Performing Organization Address [facility]/ZIP Co de Phone Number [facility] CLIA # [id number] [address] [place] [address] * VERIFICATION BLOOD GROUP (01/06/2025 3:35 PM CDT) ABO GROUP A 01/06/2025 6:11 PM CDT [facility] [place] RH (D) TYPE Positive 01/06/2025 6:11 PM CDT [facility] [place] Blood Venipuncture / Unknown 01/06/2025 3:35 PM CDT 01/06/2025 5:14 PM CDT us Kaden Mayer MD BLOOD BANK ORDERABLES Final Re sult Performing Organization Address [facility] de Phone Number [facility] [place] CLIA#[id number] [address] [place] [address], * RED BLOOD CELL ANTIGEN TYPE (01/06/2025 3:15 PM CDT) JKA RED BLOOD CELL ANTIGEN Negative 01/06/2025 11:36 PM CDT [facility] [place] E RED BLOOD CELL ANTIGEN Negative 01/06/2025 11:36 PM CDT [facility] C RED BLOOD CELL ANTIGEN Negative 01/06/2025 11:36 PM CDT [facility] [place] Blood Venipuncture / Unknown 01/06/2025 3:15 PM CDT 01/06/2025 5:14 PM CDT us Kaden Mayer MD BLOOD BANK ORDERABLES Edited R esult - Final Performing Organization Address [facility] Co de Phone Number [facility] [place] CLIA#[id number] [address] [place] [address], * BLOOD BANK AB IDENT (01/06/2025 3:15 PM CDT) ANTIBODY #1 Anti-Jka 01/06/2025 11:45 PM CDT [facility] [place] ANTIBODY #2 Anti-c 01/06/2025 11:45 PM CDT [facility] [place] Blood Venipuncture / Unknown 01/06/2025 3:15 PM CDT 01/06/2025 5:14 PM CDT us Kaden Mayer MD BLOOD BANK ORDERABLES Final Re sult Performing Organization Address [facility] de Phone Number [facility] [employer] [facility] [place] CLIA#[id number] [address] [place], [place] [id number] [place] [address] * (ABNORMAL) PROTIME-INR (01/06/2025 3:15 PM CDT) PROTIME 15.1(H) 12.7 - 14.9 Seconds 01/06/2025 5:39 PM CDT [facility] INR 1.1 0.8 - 1.2 01/06/2025 5:39 PM CDT [facility] [employer] [facility] Blood Venipuncture / Unknown 01/06/2025 3:15 PM CDT 01/06/2025 5:21 PM CDT Narrative [facility] - 01/06/2025 5:39 PM CDT Expected Values for INR: DVT/PE Goal INR 2.5; range 2.0 - 3.0 Valve Replacement Tissue Goal INR 2.5; range 2.0 - 3.0 Valve Replacement Mechanical Goal INR 3.0; range 2.5 - 3.5 POST-CA Goal INR 2.5; range 2.0 - 3.0 or Goal INR 3.0; range 2.5 - 3.5 Atrial Fibrillation Goal INR 2.5; range 2.0 - 3.0 Ischemic Stroke Goal INR 2.5; range 2.0 - 3.0 Kaden Mayer MD HEMATOLOGY ORDERABLES Final Re sult Performing Organization Address [facility]/ZIP Co de Phone Number [facility] CLIA # [id number] [address] [address] * TYPE AND SCREEN (01/06/2025 3:15 PM CDT) ABO GROUP A 01/06/2025 11:44 PM CDT [facility] [place] RH (D) TYPE Positive 01/06/2025 11:44 PM CDT [facility] [place] ANTIBODY SCREEN Positive 01/06/2025 11:44 PM CDT [facility] [place] Blood Venipuncture / Unknown 01/06/2025 3:15 PM CDT 01/06/2025 5:14 PM CDT Kaden Mayer MD BLOOD BANK ORDERABLES Edited R reneeult - Final [facility] [employer] [facility] [place] CLIA#[id number] [address] [place] [address], * (ABNORMAL) BASIC METABOLIC PANEL (01/06/2025 3:15 PM CDT) SODIUM 142 136 - 145 mmol/L 01/06/2025 5:41 PM CDT [facility] POTASSIUM 4.1 3.5 - 5.1 mmol/L 01/06/2025 5:41 PM CDT [facility] CHLORIDE 106 98 - 107 mmol/L 01/06/2025 5:41 PM CDT [facility] CO2 23 22 - 29 mmol/L 01/06/2025 5:41 PM CDT [facility] CALCIUM 8.9 8.8 - 10.2 mg/dL 01/06/2025 5:41 PM CDT [facility] BUN 15 8 - 23 mg/dL 01/06/2025 5:41 PM CDT [facility] CREATININE 1.04 0.67 - 1.17 mg/dL 01/06/2025 5:41 PM T [facility] Comment:The GFR result is no t clinically significant on patients <18 or >70 years of age. GLUCOSE 135(H) 74 - 99 mg/dL 01/06/2025 5:41 PM T [facility] GFR >60 mL/min/1.7 3 sq meter 01/06/2025 5:41 PM T [facility] Comment:eGFR calculated with 2020 CKD-EPI equation. Vegetarian diet, extremely high or low muscle mass, and may affect results. Cystatin C with Glomerular Filtration Rate is a suitable alternative for these patients. ANION GAP 13 9 - 20 mmol/L 01/06/2025 5:41 PM CDT [facility] Blood Venipuncture / Unknown 01/06/2025 3:15 PM CDT 01/06/2025 5:21 PM CDT us Kaden Mayer MD CHEMISTRY ORDERABLES Final Res ult [facility] CLIA # [id number] [address] [place] [address] * EKG 12-LEAD (01/06/2025 3:08 PM CDT) 01/06/2025 3:08 PM CDT Narrative INTERFACE SYSTEM - 01/06/2025 8:21 [place] [address] Test Date: 2025-01-06 Pat Name: [facility] Department: 12 Room: 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1955 Requested By: Order Number: [id number] Reading MD: Karla Francis Measurements Intervals [place] Rate: 91 P: 0 NM: 0 QRS: 35 QRSD: 126 T: 54 QT: 384 QTc: 472 Interpretive Statements Atrial fibrillation Right bundle branch block Possible Inferior infarct, age undetermined Abnormal ECG Electronically Signed On 01-06-2025 20:21:31 CDT by Karla Francis Procedure Note Karla Francis, DO - 01/06/[address] [address] Test Date: 2025-01-06 Pat Name: GABINO JONES Department: 12 Room: 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1955 Requested By: Order Number: [id number] Reading MD: Karla Francis Measurements Intervals [place] Rate: 91 P: 0 NM: 0 QRS: 35 QRSD: 126 T: 54 QT: 384 QTc: 472 Interpretive Statements Atrial fibrillation Right bundle branch block Possible Inferior infarct, age undetermined Abnormal ECG Electronically Signed On 01-06-2025 20:21:31 CDT by Karla Francis us Kaden Mayer MD ECG ORDERABLES Final Result INTERFACE SYSTEM Refer to clinic/hospital department * NM DUP/COPY PATIENT'S RECORDS (12/17/2024 11:39 AM CDT) us Abstract Provider NM - DENTAL Final Result from Last 3 Months Insurance MEDICARE PART A HOSPITAL ONLY [employer] DUAL ADVANTAGE HMO DSNP [facility] [employer] * Guarantor: JOSEPHINE [facility]GUYEN[facility] M (C) Account Type Relation to Patient Date of Phone Billing Address Corporate Other DEFAULT ADDRESS [address] [employer] * Guarantor: [employer] M (C) Account Type Relation to Patient Date of Phone B[facility] Other DEFAULT ADDRESS [address] [employer] * Guarantor: [facility] (C) Account Type Relation to Patient Date of Phone [facility]illing [facility] Other DEFAULT ADDRESS [address] [employer] Advance Directives For more information, please contact: [phone] * Full Code (Latest Code Status on File) Date Activated Date Inactivated Comments 09/05/2022 11:49 PM 09/07/2022 1:06 PM
[2025-03-15] MEDS: ATORVASTATIN 10 MG TABLET PO (21:12)
[2025-03-16] VITALS (15 sets, daily range): BP systolic 103–130; BP diastolic 50–84; PULSE 60–94; RESP 16–26; TEMP 36.2–36.7; O2SAT 94–97; BMI 31.6
--- NOTE | 2025-03-16 01:16 | PC.NURSE ---
Patient right pupil is large and misshapen due to previous eye surgery.
[2025-03-16 04:27] LABS: Hematocrit 32.8 % (37-53); Hemoglobin 10.60 g/dL (11.27-16.99); Mean Corpuscular HGB Conc 32.3 g/dL (30-55); Mean Corpuscular Hemoglobin 27.7 pg (27-33); Mean Corpuscular Volume 85.6 fl (82-101); Nucleated Red Blood Cells % 0 %; Platelet Count 207 10^3/cmm (157-399); Red Blood Count 3.83 10^6/uL (3.85-5.65); White Blood Count 4.82 10^3/uL (3.29-11.43)
[2025-03-16 04:49] LABS: Alanine Aminotransferase 21 U/L (0-41); Albumin Level 2.8 g/dL (3.5-5.2); Alkaline Phosphatase 93 U/L (40-130); Anion Gap 13.9 (5-19); Aspartate Amino Transferase 21 U/L (0-40); Blood Urea Nitrogen 17 mg/dL (8-23); Calcium 8.2 mg/dL (8.5-10.5); Carbon Dioxide 26 mmol/L (22-29); Chloride 100 mmol/L (98-107); Creatinine Clr Calc Pharmacy 102.1319; Globulin 3.2 g/dL (1.3-4.6); Glucose 198 mg/dL (65-115); Magnesium 2.3 mg/dL (1.7-2.3); Osmolality Calculated 289 mOsm/kg (285-295); Potassium 3.9 mmol/L (3.5-5.1); Sodium 136 mmol/L (136-145); Total Protein 6.0 g/dL (6.6-8.7)
[2025-03-16 04:54] LABS: Cholesterol 88 mg/dL (0-200); HDL Cholesterol 20 mg/dL (60-100); Triglycerides 75 mg/dL (0-150)
[2025-03-16 04:55] LABS: Procalcitonin 0.45 ng/mL (0-0.5)
[2025-03-16] MEDS: piperacillin-tazobactam 3.375 GM in sodium chloride 0.9% (plus) 50 ML IV ×3 (06:19→21:55)
[2025-03-16] MEDS: methylPREDNISolone sod succ 40 mg/mL INJ IVP ×3 (06:19→21:54)
--- NOTE | 2025-03-16 09:14 | PC.CHAP ---
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 substation maintenance technician visit [] Patient/Family/Request visit [] Outpatient visit [] Follow-up visit [] Physician referral [] Code/Alert [] Routine visit [] Staff referral [] Actively dying [] Patient sleeping [] Family support [] [] Out of room [] Palliative care [] [] Receiving care in room [] Pre-surgical visit [] Trauma [] Long length of stay [] ICU visit [x] Other:Contact precautions. No visit. Relational/Emotional Strength [] Patient feels connected with others/family/visitors/staff [] Distress [] Loneliness/isolation [] Abandonment Spirituality of Patient [] Person of [place] [] Attends Moravian of their [place] [] Believes in Prayer [] Reads Bible or Hinduism materials [] There are Spiritual issues to be addressed Supervisor Instrument Maintenance Interventions [] Prayer [] Active listening [] Non-anxious presence [] Spiritual/emotional support [] Crisis/trauma care [] Spiritual counseling [] Bereavement support [] Provided bereavement packet [] Provided Bible/devotional materials [] Provided toy/stuffed animal, coloring book to patient or family member [] Provided Communion [] Anointing/[place] [] Salvation [] Completed spiritual assessment [] Other: Impact on Illness or Injury [] Angry [] Fearful [] Anxious [] Often cries [] Exhaustion [] Unable to work [] Unable to attend methodist [] Unable to walk/stand [] Unable to read [] Unable to drive [] Unable to eat/drink [] Unable to sleep [] Unable to be with family [] Patient intubated [] Other: Summary Time spent with patient
[2025-03-16] MEDS: acetylcysteine (Mucomyst) 200 mg/mL SDV 4 mL 100 MG INHALATION ×4 (11:12→23:35)
--- NOTE | 2025-03-16 11:51 | PM.PN ---
Subjective Subjective: No acute events overnight. States he is feeling better. Denies any nausea, vomiting, headache. States he is feeling better. Remained stable on oxygen supplementation. Able to cough up more expectoration today. Vitals/I&O/Wt Last Vital Signs Temp 98.4 F 03/17/25 08:00 Pulse 78 03/17/25 08:12 Resp 18 03/17/25 08:12 BP 144/65 03/17/25 08:00 Pulse Ox 95 03/17/25 08:12 O2 Del Method Nasal Cannula 03/17/25 08:12 O2 Flow Rate 3 03/17/25 08:12 03/16/25 03/17/25 03/17/25 22:59 06:59 14:59 Intake Total 170 / 940 50 / 990 360 / 360 Output Total 350 / 800 Balance 170 / 490 -300 / 190 360 / 360 Weight last 48 hrs Weight 102.2 kg Weight 100.1 kg Weight 100.6 kg Physical Exam Narrative: General: No acute distress, AO x3 HEENT: PERRLA, pupils bilaterally equal and reactive Chest: Bilateral bronchial breath sounds all over lung [place] with occasional rhonchi, crackles present left middle zone CVS: S1-S2 regular, no murmurs, no tachycardia, no gallops, no rubs Abdomen: Soft, nontender, no organomegaly, bowel sounds present Neuro: No focal deficits, no facial deformity, AO x3, power 5/5 in all limbs Data 03/17/25 03:55 03/17/25 03:55 Micro: Microbiology 03/15/25 13:17 Gram Stain - Final Sputum - Expectorated Sputum Sputum Culture - Final Escherichia coli esbl 03/15/25 11:43 Blood Culture - Preliminary Blood NEGATIVE TO DATE 03/15/25 11:41 Blood Culture - Preliminary Blood NEGATIVE TO DATE 03/15/25 17:59 Bacterial Antigens - Final Urine Kidney A&P Assessment and plan 1. Acute on chronic hypoxic respiratory failure: 2. Aspiration pneumonia of left upper lobe due to vomit: 3. Acute exacerbation of chronic obstructive pulmonary disease: 4. Chronic diastolic congestive heart failure: 5. Paroxysmal atrial fibrillation: 6. Coronary artery disease of [place] artery of [place] heart with stable angina pectoris: 7. Secondary hypertension: Plan: Acute on chronic hypoxic respiratory failure: Most likely in setting of aspiration pneumonia due to aspiration of vomitus leading to COPD exacerbation. Gives history of vomiting after previous discharge prior to initiation of symptoms this time. Had modified barium swallow done during prior admission. Appreciate results. Check sputum culture, D-dimer, blood culture, bacterial antigen. MRSA swab. If D-dimer elevated will plan for CTA chest otherwise CT chest without contrast. Oxygen supplementation keeping saturation over 88%. Solu-Medrol 40 mg Q8 hourly. Pulmicort twice daily, ipratropium, Xopenex every 6 hour. Empirically start on IV Zosyn, oral azithromycin for now. Does have a history of diastolic heart failure. Currently patient euvolemic. Fluid restriction to less than 1500 cc. Hold off on any IV fluids or diuretics for now. Monitor fluid status. Strict input output charting, daily weights. Paroxysmal A-fib: Appreciate recent digoxin levels. Continue with home dose of digoxin, metoprolol. Telemonitoring. Home dose of Eliquis. Continue other chronic home medications. CODE STATUS: Daughter will be DPOA. Full code. Carb consistent cardiac diet Protonix for PUD prophylaxis Eliquis will be sufficient for DVT prophylaxis Plan for the day: Follow-up with blood culture. Continue with IV Zosyn. MRSA swab negative. Renal function stable. Patient euvolemic. Appreciate CT chest. Start on chest vest. Continue with aggressive pulmonary toilet. Add Mucomyst. Continue with DuoNeb and Pulmicort twice daily. PDMP PDMP Reviewed: Not Reviewed Attestations Medical Necessity Statement*: Requires further hospitalization for management of hypoxic acute on chronic respiratory failure in setting of COPD exacerbation, left sided pneumonia due to aspiration of vomitus Diagnoses Acute on chronic hypoxic respiratory failure J96.21 Aspiration pneumonia of left upper lobe due to vomit J69.0 Aspiration pneumonia type: due to vomit Laterality: left Lung location: upper lobe of lung Pneumonia type: aspiration pneumonia Acute exacerbation of chronic obstructive pulmonary disease J44.1 Chronic diastolic congestive heart failure I50.32 Heart failure chronicity: chronic Heart failure type: diastolic Paroxysmal atrial fibrillation I48.0 Atrial fibrillation type: paroxysmal Coronary artery disease of [place] artery of [place] heart with stable angina pectoris I25.118 Coronary Disease-Associated Artery/Lesion type: [place] artery [place] vs. transplanted heart: [place] heart Associated angina: with stable angina Secondary hypertension I15.9 Hypertension type: unspecified secondary hypertension
[2025-03-16] MEDS: ATORVASTATIN 10 MG TABLET PO (21:54)
[2025-03-17] VITALS (9 sets, daily range): BP systolic 138–144; BP diastolic 54–65; PULSE 61–99; RESP 15–22; TEMP 36.3–36.9; O2SAT 94–98; BMI 32.3
[2025-03-17 04:05] LABS: Hematocrit 31.1 % (37-53); Hemoglobin 9.80 g/dL (11.27-16.99); Mean Corpuscular HGB Conc 31.5 g/dL (30-55); Mean Corpuscular Hemoglobin 27.6 pg (27-33); Mean Corpuscular Volume 87.6 fl (82-101); Nucleated Red Blood Cells % 0 %; Platelet Count 191 10^3/cmm (157-399); Red Blood Count 3.55 10^6/uL (3.85-5.65); White Blood Count 6.90 10^3/uL (3.29-11.43)
[2025-03-17 04:37] LABS: Alanine Aminotransferase 54 U/L (0-41); Albumin Level 3.0 g/dL (3.5-5.2); Alkaline Phosphatase 84 U/L (40-130); Anion Gap 14.1 (5-19); Aspartate Amino Transferase 60 U/L (0-40); Blood Urea Nitrogen 27 mg/dL (8-23); Calcium 8.2 mg/dL (8.5-10.5); Carbon Dioxide 27 mmol/L (22-29); Chloride 102 mmol/L (98-107); Creatinine Clr Calc Pharmacy 101.8889; Globulin 2.7 g/dL (1.3-4.6); Glucose 157 mg/dL (65-115); Magnesium 2.3 mg/dL (1.7-2.3); Osmolality Calculated 296 mOsm/kg (285-295); Potassium 4.1 mmol/L (3.5-5.1); Sodium 139 mmol/L (136-145); Total Protein 5.7 g/dL (6.6-8.7)
[2025-03-17] MEDS: methylPREDNISolone sod succ 40 mg/mL INJ IVP ×2 (05:46→15:28)
[2025-03-17] MEDS: piperacillin-tazobactam 3.375 GM in sodium chloride 0.9% (plus) 50 ML IV (05:47)
[2025-03-17] MEDS: acetylcysteine (Mucomyst) 200 mg/mL SDV 4 mL 100 MG INHALATION ×2 (08:06→11:52)
--- NOTE | 2025-03-17 10:04 | PM.DCS ---
Discharge Providers Date of Admission: 03/15/25 12:50 Date of Discharge: March 17, 2025 Attending Provider at Admission: Fran Wyatt MD Attending Provider at Discharge: Fran Wyatt MD Primary Care Provider: PATO Hernandez Diagnoses at Discharge Discharge Diagnosis 1. Acute on chronic hypoxic respiratory failure: 2. Aspiration pneumonia of left upper lobe due to vomit: 3. Acute exacerbation of chronic obstructive pulmonary disease: 4. Chronic diastolic congestive heart failure: 5. Paroxysmal atrial fibrillation: 6. Coronary artery disease of [place] artery of [place] heart with stable angina pectoris: 7. Secondary hypertension: Reason for Visit Reason for Visit: Sob Hospital Course Hospital Course Gabino Jones Sr is a 69 year old male with past medical history of COPD, hypertension, hyperlipidemia, diastolic heart failure who was recently discharged from the hospital after getting treatment for community-acquired pneumonia on 03/10 presents back to the ER today because of difficulty in breathing, cough with expectoration worsening since last night. Patient states he has been having cough and been feeling weak since 2 days after discharge but overnight had more difficulty in breathing had episodes of confusion hence presented to the ER today. In the ER he was requiring up to 3 L of oxygen supplementation with baseline of around 2 L to maintain his saturation. Complains of weakness. Denies any nausea, vomiting. Does complain of 1 episode of vomiting since discharge which he aspirated. He was started on treatment for acute on chronic hypoxia in setting of aspiration of vomitus leading to left sided pneumonia. He was started on broad-spectrum antibiotics, nebulization treatment along with aggressive pulmonary toilet. Sputum culture came back positive for ESBL E. coli. PE was ruled out. Blood cultures remain negative. Patient continues to improve with resolution of leukocytosis. He has been discharged in hemodynamically stable condition on IV ertapenem 1 g daily for 10 more days. Midline has been placed. Physical Exam Narrative: General: No acute distress, AO x3 HEENT: PERRLA, pupils bilaterally equal and reactive Chest: Bilateral bronchial breath sounds all over lung [place] with occasional rhonchi, crackles present left middle zone CVS: S1-S2 regular, no murmurs, no tachycardia, no gallops, no rubs Abdomen: Soft, nontender, no organomegaly, bowel sounds present Neuro: No focal deficits, no facial deformity, AO x3, power 5/5 in all limbs Discharge Data Studies Completed and Pending Completed Studies During Hospitalization Category Date Time Status CTA chest [CT angio chest PE protcl [id number]] Routine Cat Scan 03/15/25 14:15 Completed XR chest 1V portable [id number] Stat Exams 03/15/25 10:38 Completed Pending at discharge Category Date Time Status Blood Culture Stat Lab 03/15/25 11:43 Results Complete Blood Count w/Auto AM LABS Lab 03/18/25 04:00 Ordered Comprehensive Metabolic Panel AM LABS Lab 03/18/25 04:00 Ordered Magnesium AM LABS Lab 03/18/25 04:00 Ordered Phosphorus AM LABS Lab 03/18/25 04:00 Ordered Radiology Impressions Chest X-Ray 03/15/25 10:38 IMPRESSION: 1. Progressive areas of consolidation and opacification throughout a large portion of the LEFT lung since 03/09/2025. Patient has known honeycombing and bronchiectasis which has been previously described. Suspect superimposed pneumonia on UIP. 2. Severe emphysema. 3. Prior CABG Chest CTA 03/15/25 14:15 IMPRESSION: 1. No pulmonary embolism. 2. No RIGHT heart strain. 3. Mild cardiomegaly. 4. Prior CABG. 5. Dense consolidation with cavitations in the mid LEFT lung. Greatest consolidation LEFT upper lobe but also extends into the LEFT lower lobe. Most likely pneumonia. 6. Superimposed UIP. 7. Prior cholecystectomy. 8. Severe bullous emphysema. Microbiology 03/15/25 13:17 Sputum - Expectorated Sputum Gram Stain - Final 03/15/25 13:17 Sputum - Expectorated Sputum Sputum Culture - Final Escherichia coli esbl 03/15/25 11:43 Blood Blood Culture - Preliminary NEGATIVE TO DATE 03/15/25 11:41 Blood Blood Culture - Preliminary NEGATIVE TO DATE 03/15/25 17:59 Urine Kidney Bacterial Antigens - Final Laboratory Results WBC 6.90 10^3/uL (3.29-11.43) 03/17/25 03:55 RBC 3.55 10^6/uL (3.85-5.65) L 03/17/25 03:55 Hgb 9.80 g/dL (11.27-16.99) L 03/17/25 03:55 Hct 31.1 % (37-53) L 03/17/25 03:55 MCV 87.6 fl (82-101) 03/17/25 03:55 MCH 27.6 pg (27-33) 03/17/25 03:55 MCHC 31.5 g/dL (30-55) 03/17/25 03:55 RDW 16.5 % (12.1-15.1) H 03/17/25 03:55 Plt Count 191 10^3/cmm (157-399) 03/17/25 03:55 MPV 10.2 fL (7.4-10.4) 03/17/25 03:55 Neut % (Auto) 89.8 % 03/17/25 03:55 Lymph % (Auto) 5.7 % 03/17/25 03:55 [place] % (Auto) 3.8 % 03/17/25 03:55 Eos % (Auto) 0.0 % 03/17/25 03:55 Baso % (Auto) 0.1 % 03/17/25 03:55 Neut # (Auto) 6.20 10^3/uL (1.8-7.7) 03/17/25 03:55 Lymph # (Auto) 0.4 10^3/uL (0.8-4.8) L 03/17/25 03:55 [place] # (Auto) 0.3 10^3/uL (0.2-0.9) 03/17/25 03:55 Eos # (Auto) 0.0 10^3/uL (0.0-0.8) 03/17/25 03:55 Baso # (Auto) 0.0 10^3/uL (0.0-0.1) 03/17/25 03:55 Nucleated RBC % (auto) 0 % 03/17/25 03:55 Nucleated RBCs # 0.0 /100WBC 03/17/25 03:55 D-Dimer 1.95 ug/mLFEU (0-0.59) H 03/15/25 10:52 Specimen Type Arterial 03/15/25 11:16 Sample Site Brachial, right 03/15/25 11:16 ABG pH 7.49 (7.35-7.45) H 03/15/25 11:16 ABG pCO2 34.2 mmHg (35-45) L 03/15/25 11:16 ABG pO2 96.4 mmHg (80.0-100.0) 03/15/25 11:16 ABG PO2/FiO2 Ratio 301 03/15/25 11:16 ABG HCO3 26.1 mmol/L (22-26) H 03/15/25 11:16 ABG O2 Saturation 98.6 03/15/25 11:16 ABG Base Excess 2.9 mmol/L (-2.0-2.0) H 03/15/25 11:16 Derek Test N/a 03/15/25 11:16 A-a O2 Gradient 11.5 mmHg (5-10) H 03/15/25 11:16 Hematocrit 37.0 % (42-52) L 03/15/25 11:16 Hgb O2 Saturation 96.6 % (95-100) 03/15/25 11:16 Carboxyhemoglobin 1.7 %THgb (0.4-20.1) 03/15/25 11:16 Methemoglobin 0.3 % (0.4-1.5) L 03/15/25 11:16 Total Hemoglobin 12.1 g/dL (14-18) L 03/15/25 11:16 Sodium 133.0 mmol/L (131-143) 03/15/25 11:16 Potassium 3.3 mmol/L (3.5-5.0) L 03/15/25 11:16 Glucose 143.0 mg/dL (70-115) H 03/15/25 11:16 Ionized Calcium 1.1 mmol/L (1.1-1.4) 03/15/25 11:16 O2 Delivery Device Nc 03/15/25 11:16 O2 Liters/Min 3.0 % 03/15/25 11:16 FiO2 32.0 % 03/15/25 11:16 Product Info Specialist ID Amh 03/15/25 11:16 Sodium 139 mmol/L (136-145) 03/17/25 03:55 Potassium 4.1 mmol/L (3.5-5.1) 03/17/25 03:55 Chloride 102 mmol/L (98-107) 03/17/25 03:55 Carbon Dioxide 27 mmol/L (22-29) 03/17/25 03:55 Anion Gap 14.1 (5-19) 03/17/25 03:55 BUN 27 mg/dL (8-23) H 03/17/25 03:55 Creatinine 0.8 mg/dL (0.7-1.2) 03/17/25 03:55 GFR Calculation 95.6 mL/min (90-130) 03/17/25 03:55 Glucose 157 mg/dL (65-115) H 03/17/25 03:55 POC Glucose 205 mg/dL (70-110) H 03/17/25 06:18 Estimat Average Glucose 137 03/15/25 10:52 Hemoglobin A1c 6.4 % (4.0-6.0) H 03/15/25 10:52 Calculated Osmolality 296 mOsm/kg (285-295) H 03/17/25 03:55 Lactic Acid 2.2 mmol/L (0.5-2.2) 03/15/25 10:52 Lactic Acid (Sepsis) 1.2 mmol/L (0.5-2.2) 03/15/25 13:46 Calcium 8.2 mg/dL (8.5-10.5) L 03/17/25 03:55 Phosphorus 3.4 mg/dL (2.5-4.5) 03/17/25 03:55 Magnesium 2.3 mg/dL (1.7-2.3) 03/17/25 03:55 Iron 17 ug/dL (59-158) L 03/15/25 10:52 TIBC 156 mcg/dl 03/15/25 10:52 % Saturation 10.8 % (20-50) L 03/15/25 10:52 Unsat Iron Binding 139 ug/dL (112-347) 03/15/25 10:52 Total Bilirubin 0.3 mg/dL (0.15-1.2) 03/17/25 03:55 AST 60 U/L (0-40) H 03/17/25 03:55 ALT 54 U/L (0-41) H 03/17/25 03:55 Alkaline Phosphatase 84 U/L (40-130) 03/17/25 03:55 NT-Pro-B Natriuret Pep 3292 pg/mL (0-125) H 03/15/25 10:52 Total Protein 5.7 g/dL (6.6-8.7) L 03/17/25 03:55 Albumin 3.0 g/dL (3.5-5.2) L 03/17/25 03:55 Globulin 2.7 g/dL (1.3-4.6) 03/17/25 03:55 Triglycerides 75 mg/dL (0-150) 03/16/25 04:14 Cholesterol 88 mg/dL (0-200) 03/16/25 04:14 LDL Cholesterol, Calc 53 mg/dL (50-129) 03/16/25 04:14 HDL Cholesterol 20 mg/dL (60-100) L 03/16/25 04:14 LDL/HDL Ratio 2.65 RATIO (0.00-3.22) 03/16/25 04:14 Cholesterol/HDL Ratio 4.40 mg/dL (1.0-5.00) 03/16/25 04:14 Vitamin B12 614 pg/mL (232-1245) 03/15/25 10:52 Folate 17.2 ng/mL (4.5-32.2) 03/16/25 04:14 Procalcitonin 0.45 ng/mL (0-0.5) 03/16/25 04:14 Urine Color Dark yellow (Yellow) A 03/15/25 17:59 Urine Appearance Clear (CLEAR) 03/15/25 17:59 Urine pH 6.0 (5-7) 03/15/25 17:59 Ur Specific [place] 1.051 (1.005-1.030) H 03/15/25 17:59 Urine Protein Trace (Negative) A 03/15/25 17:59 Urine Glucose (UA) 3+ (Normal) H 03/15/25 17:59 Urine Ketones Negative (Negative) 03/15/25 17:59 Urine Blood Negative (Negative) 03/15/25 17:59 Urine Nitrate Negative (Negative) 03/15/25 17:59 Urine Bilirubin Negative (Negative) 03/15/25 17:59 Urine Urobilinogen 2.0 mg/dL (Negative) H 03/15/25 17:59 Ur Leukocyte Esterase Negative (Negative) 03/15/25 17:59 Urine RBC None /hpf (0-2) 03/15/25 17:59 Urine WBC Rare /hpf (0-5) 03/15/25 17:59 Ur Squamous Epith Cells 0-4 /hpf (0-5) H 03/15/25 17:59 Amorphous Sediment Not Reportable 03/15/25 17:59 Urine Bacteria Trace /hpf (NONE) 03/15/25 17:59 Urine Mucus None /hpf 03/15/25 17:59 Nasal MRSA (PCR) Not detected (Negative) 03/15/25 14:27 Adenovirus (PCR) Not detected (NOT DETECT) 03/15/25 15:18 C. pneumoniae DNA (PCR) Not detected (NOT DETECT) 03/15/25 15:18 Coronavirus 229E (PCR) Not detected (NOT DETECT) 03/15/25 15:18 Human Metapneumovir PCR Not detected (NOT DETECT) 03/15/25 15:18 Influenza A (H1) PCR Not detected (NOT DETECT) 03/15/25 15:18 Influ A (H1/09) PCR Not detected (NOT DETECT) 03/15/25 15:18 Influenza A (H3) PCR Not detected (NOT DETECT) 03/15/25 15:18 Influenza Type A (PCR) Not detected (NOT DETECT) 03/15/25 15:18 Influenza Type B (PCR) Not detected (NOT DETECT) 03/15/25 15:18 M. pneumoniae (PCR) Not detected (NOT DETECT) 03/15/25 15:18 Parainfluenza 1 (PCR) Not detected (NOT DETECT) 03/15/25 15:18 Parainfluenza 2 (PCR) Not detected (NOT DETECT) 03/15/25 15:18 Parainfluenza 3 (PCR) Not detected (NOT DETECT) 03/15/25 15:18 Parainfluenza 4 (PCR) Not detected (NOT DETECT) 03/15/25 15:18 RSV Type A (PCR) Not detected (NOT DETECT) 03/15/25 15:18 RSV Type B (PCR) Not detected (NOT DETECT) 03/15/25 15:18 Entero/Rhino (PCR) Detected (NOT DETECT) A 03/15/25 15:18 SARS-CoV-2 (PCR) Not detected (NOT DETECT) 03/15/25 15:18 Vitals Last Vital Signs Temp 98.4 F 03/17/25 08:00 Pulse 78 03/17/25 08:12 Resp 18 03/17/25 08:12 BP 144/65 03/17/25 08:00 Pulse Ox 95 03/17/25 08:12 O2 Del Method Nasal Cannula 03/17/25 08:12 O2 Flow Rate 3 03/17/25 08:12 Discharge Plan Discharge Patient Disposition: Home Condition: Stable Prescriptions: New prednisone 10 mg tablet See Taper PO DIRECTED Qty: 42 0RF Taper: predniSONE 60-10 60 mg Daily for 2 Days and 0 Hour 50 mg Daily for 2 Days and 0 Hour 40 mg Daily for 2 Days and 0 Hour 30 mg Daily for 2 Days and 0 Hour 20 mg Daily for 2 Days and 0 Hour 10 mg Daily for 2 Days and 0 Hour Rx Instructions: see taper instructions Continued diclofenac sodium 1 % gel 4 g topical QID PRN (Reason: joint pain) Qty: 100 3RF Rx Instructions: apply to single knee, ankle, foot; for foot includes sole/toes/top of foot insulin glargine [Lantus Solostar U-100 Insulin] 100 unit/mL (3 mL) insulin pen 10 unit SUBCUT DAILY Qty: 15 0RF folic acid 1 mg tablet 1 mg PO DAILY Qty: 30 0RF Eliquis 5 mg Tablet 5 mg PO BID Qty: 60 0RF potassium chloride 20 mEq Tablet Extended Release 20 meq PO QAM furosemide [Lasix] 40 mg tablet 40 mg PO QAM Flomax 0.4 mg capsule 0.4 mg PO BID albuterol sulfate 90 mcg/actuation HFA aerosol inhaler 2 inh INHALATION Q4H PRN (Reason: shortness of breath or wheezing) Qty: 18 0RF (DME) pen needle, diabetic [BD Ultra-Fine Micro Pen Needle] 32 gauge x 1/4 needle See Rx Instructions .ROUTE .MEDSUPPLY Qty: 50 0RF Rx Instructions: As directed (DME) lancets Misc See Rx Instructions .ROUTE .MEDSUPPLY Qty: 100 0RF Rx Instructions: As directed (DME) blood-glucose meter [Blood Glucose Monitoring] Kit See Rx Instructions .ROUTE .MEDSUPPLY Qty: 1 0RF Rx Instructions: As directed levothyroxine 125 mcg Tablet 125 mcg PO QAM fluticasone propion-salmeterol [Advair Diskus] 100-50 mcg/dose blister with device 1 inh inhalation BEDTIME atorvastatin 20 mg Tablet 10 mg PO BEDTIME albuterol sulfate 2.5 mg /3 mL (0.083 %) Solution For Nebulization 2.5 mg INHALATION Q6H PRN (Reason: Shortness Of Breath) sertraline 100 mg Tablet 100 mg PO QPM clopidogrel 75 mg Tablet 75 mg PO DAILY aspirin 81 mg Tablet,Delayed Release (Dr/Ec) 81 mg PO DAILY gabapentin 100 mg Capsule 200 mg PO TID metoprolol tartrate 25 mg Tablet 37.5 mg PO BID cholecalciferol (vitamin D3) [Vitamin D3] 50 mcg (2,000 unit) Tablet 50 mcg PO DAILY Spiriva Respimat 2.5 mcg/actuation Mist 2 puff INHALATION DAILY sennosides-docusate sodium 8.6-50 mg tablet 1 tab PO DAILY loratadine 10 mg tablet 10 mg PO QAM nitroglycerin [Nitrostat] 0.4 mg Tablet, Sublingual 0.4 mg SUBLINGUAL Q5M PRN (Reason: Chest Pain) Rx Instructions: do not exceed 3 doses per episode digoxin 250 mcg (0.25 mg) tablet 250 mcg PO QAM calcium carbonate 500 mg calcium (1,250 mg) Tablet 500 mg PO BID pantoprazole 40 mg tablet,delayed release (DR/EC) 40 mg PO BID Jardiance 25 mg tablet 12.5 mg PO DAILY cyanocobalamin (vitamin B-12) [Vitamin B-12] 100 mcg Tablet 100 mcg PO DAILY azithromycin 250 mg tablet 250 mg PO DAILY MDD x5days Discontinued cefdinir 300 mg capsule 300 mg PO BID Other Ambulatory Orders: Miscellaneous Procedure (Order) Location: None Selected Ordered By: Fran Wyatt Referrals: [facility] [Outside] Isela Gipson FNP [Primary Care Provider, Nurse Practitioner] - 03/24/25 11:00 am Discharge Diet: Usual diet, Cardiac and Diabetic Discharge Activity: Resume usual activity and Increase activity as tolerated Patient Instructions: Opioid Safety, Patient Portal & Elizabeth Instructions Activity Restrictions/Additional Instructions: Continue with IV ertapenem 1 g daily for Midline should be removed after completion of IV ertapenem course. Continue nebulization treatment as before. Continue with steroid taper as prescribed. Follow-up with your primary care provider on set appointment. Discharge Attestations Time Spent in Discharge Care*: greater than 30 min Specific Discharge Activities: educating patient, educating and/or supporting family/caregiver, discussing with pcp/other providers, discussing with residential case manager/social workers/dc planners, documenting/other paperwork and evaluating patient/reviewing data Status at Discharge: Cognitive status at discharge: cognitively intact, Behavioral status at discharge: cooperative, Functional status at discharge: uses cane/walker, Overall status at discharge: patient is back to baseline Quality Metrics Clinical Quality Measures [ No reported AMI, CVA or VTE this stay] 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 of Care Code 66424 Total time (in minutes) for Discharge: 65 Diagnoses Acute on chronic hypoxic respiratory failure J96.21 Aspiration pneumonia of left upper lobe due to vomit J69.0 Aspiration pneumonia type: due to vomit Laterality: left Lung location: upper lobe of lung Pneumonia type: aspiration pneumonia Acute exacerbation of chronic obstructive pulmonary disease J44.1 Chronic diastolic congestive heart failure I50.32 Heart failure chronicity: chronic Heart failure type: diastolic Paroxysmal atrial fibrillation I48.0 Atrial fibrillation type: paroxysmal Coronary artery disease of [place] artery of [place] heart with stable angina pectoris I25.118 Associated angina: with stable angina Coronary Disease-Associated Artery/Lesion type: [place] artery [place] vs. transplanted heart: [place] heart Secondary hypertension I15.9 Hypertension type: unspecified secondary hypertension
[2025-03-17] MEDS: ertapenem 1,000 mg SDV 1000 MG IVP (10:36)
--- NOTE | 2025-03-17 11:22 | PC.SOCIAL ---
IMM Updated Updated pt on IMM. No questions voiced. Provided pt a copy. Initialed, dated, & timed a copy & placed in chart.
--- NOTE | 2025-03-17 12:00 | PICC.NOTE ---
Midline placed to right basilic vein. Referred to vascular access nurse for midline placement due to need for IV Ertapenem x 10 days. Risks and benefits discussed and informed consent obtained from pt. Right arm assessed with right basilic vein measuring 5.0 mm, straight, and apparent best choice for placement. Using sterile technique and MST, right basilic vein accessed x 1 stick. Mid-arm circumference measured 10 cm from right AC 29 cm. Trimmed cath 10 cm with 0 cm external length noted. Line secured with stat-lock. Insertion site covered with Biopatch and TSM. Report given to bedside nurse, OSMEL Victor. Pt to be discharged home today with daily IV antibiotics at [facility] Saturday-Saturday and weekend infusions at [facility]. Weekend appointment for [facility] infusion 03/20 and 03/21 made for 1000. Pt given appointment card and instructions for where to arrive on Sat and Sun. Pt verbalized understanding.
--- NOTE | 2025-03-17 16:34 | PC.NURSE ---
midline catheter has been placed.ertapenum given.sced for out-pt antibiotics in place.discharge instructions given and explained.pt verb understanding of instructions.discharge meds provided by meds to beds program.discharged via w/c to exit at this time.pt to drive self home.
--- NOTE | 2025-03-17 17:34 | PM.CONSULT ---
Providers/Reason For Consult Consulting Physician/Specialty*: Arabella Beaver MD/ Infectious disease Reason for Consult*: iv abx selection Requesting Physician: Fran Wyatt MD Attending Physician: Fran Wyatt MD Primary Care Provider: PATO Hernandez History of Present Illness History of Present Illness Gabino Jones Sr is a 69 year old male With a past medical history of COPD, hypertension, hyperlipidemia, diastolic heart failure who was recently discharged from the hospital on March 10, 2025 after being diagnosed with community-acquired pneumonia and COPD exacerbation. Modified barium swallow had been performed on the previous admission which did not show any significant aspiration.He was discharged on cefdinir and azithromycin. He returned to the hospital due to worsening dyspnea and cough. He had an episode of vomiting with witnessed aspiration. CT of the chest was performed which showed dense consolidation with cavitations in the mid left lung. Severe bullous emphysematous disease was noted. Sputum culture has revealed ESBL E. coli. Patient is being planned to be discharged with IV ertapenem. Infectious disease service consulted for follow-up for IV antibiotics as outpatient and for regimen selection. Currently clinically improving. Review of Systems General: Reports: 10 or more systems reviewed and unremarkable except in HPI and below Const: Denies: fever(s), chills or body aches Eyes: Denies: change in vision, blurry vision or photophobia ENMT: Reports: hoarseness; Denies: throat pain, enlarged tonsils, odynophagia or nasal congestion Card: Denies: chest pain, palpitations, irregular heart rhythm, edema, swelling of feet/ankles, lightheadedness, pre-syncope, dyspnea on exertion or orthopnea Resp: Denies: dyspnea, productive cough, non-productive cough, wheezing, stridor, pain on inspiration, change in phlegm color, hemoptysis or chest congestion GI: Denies: abdominal pain, nausea, vomiting, hematemesis, coffee ground emesis, dysphagia, heartburn, diarrhea, constipation, GI cramping, change in stool character, hematochezia or melena : Denies: flank pain, dysuria, urinary frequency, urinary urgency, urinary hesitancy or hematuria Musc: Denies: neck pain, back pain, extremity pain, joint swelling, joint warmth or deformity Neuro: Denies: headache(s), numbness in extremities, weakness in extremities, sensory changes, difficulty walking, frequent falls, dizziness, vertigo, behavioral changes, Slurred speech present or seizure-like activity Psych: Denies: anxiety, depression, suicidal ideation or homicidal ideation Endo: Denies: polyuria, polydipsia, tired all the time, cold intolerance or hot flashes Chavez/Lymph: Denies: easy bruising or easy bleeding Medications/Allergies Home Medications ?Medication ?Instructions ?Recorded ?Confirmed ?Last Taken ?Type apixaban 5 mg tablet (Eliquis) 5 mg PO BID #60 tabs 10/16/19 03/15/25 03/15/25 Rx furosemide 40 mg tablet (Lasix) 40 mg PO QAM 03/28/21 03/15/25 03/15/25 History potassium chloride 20 mEq 20 meq PO QAM 03/28/21 03/15/25 03/15/25 History tablet,extended release albuterol sulfate 90 mcg/actuation 2 inh inhalation Q4H PRN shortness 07/27/22 03/15/25 09/14/24 Rx aerosol inhaler of breath or wheezing #18 grams tamsulosin 0.4 mg capsule (Flomax) 0.4 mg PO BID 02/25/23 03/15/25 03/15/25 History loratadine 10 mg tablet 10 mg PO QAM 05/15/23 03/15/25 03/15/25 History digoxin 250 mcg (0.25 mg) tablet 250 mcg PO QAM 08/04/23 03/15/25 03/15/25 History nitroglycerin 0.4 mg sublingual 0.4 mg sublingual Q5M PRN Chest 08/04/23 03/15/25 03/15/24 History tablet (Nitrostat) Pain blood-glucose meter (Blood Glucose #1 ea 05/13/24 03/15/25 Unknown Rx Monitoring kit) lancets #100 ea 05/13/24 03/15/25 Unknown Rx pen needle, diabetic 32 gauge x #50 ea 05/13/24 03/15/25 Unknown Rx 1/4 (BD Ultra-Fine Micro Pen Needle) levothyroxine 125 mcg tablet 125 mcg PO QAM 07/09/24 03/15/25 03/15/25 History diclofenac sodium 1 % topical gel 4 g topical QID PRN joint pain 08/24/24 03/15/25 Unknown Rx #100 grams insulin glargine 100 unit/mL (3 10 unit (0.1 mL) SUBCUT DAILY #15 09/14/24 03/15/25 03/15/25 Rx mL) subcutaneous pen (Lantus mL Solostar U-100 Insulin) fluticasone 100 mcg-salmeterol 50 1 inh inhalation BEDTIME 09/15/24 03/15/25 03/14/25 History mcg/dose blistr powdr for inhalation (Advair Diskus) folic acid 1 mg tablet 1 mg PO DAILY #30 tabs 12/11/24 03/15/25 03/15/25 Rx albuterol sulfate 2.5 mg/3 mL 2.5 mg inhalation Q6H PRN 01/28/25 03/15/25 02/28/25 History (0.083 %) solution for nebulization Shortness Of Breath aspirin 81 mg tablet,delayed 81 mg PO DAILY 01/28/25 03/15/25 03/15/25 History release atorvastatin 20 mg tablet 10 mg PO BEDTIME 01/28/25 03/15/25 03/14/25 History cholecalciferol (vitamin D3) 50 50 mcg PO DAILY 01/28/25 03/15/25 03/15/25 History mcg (2,000 unit) tablet (Vitamin D3) clopidogrel 75 mg tablet 75 mg PO DAILY 01/28/25 03/15/25 03/15/25 History gabapentin 100 mg capsule 200 mg PO TID 01/28/25 03/15/25 03/15/25 History metoprolol tartrate 25 mg tablet 37.5 mg PO BID 01/28/25 03/15/25 03/15/25 History sennosides 8.6 mg-docusate sodium 1 tab PO DAILY 01/28/25 03/15/25 03/15/25 History 50 mg tablet sertraline 100 mg tablet 100 mg PO QPM 01/28/25 03/15/25 03/14/25 History tiotropium bromide 2.5 2 puff inhalation DAILY 01/28/25 03/15/25 03/15/25 History mcg/actuation mist for inhalation (Spiriva Respimat) calcium carbonate 500 mg PO BID 03/09/25 03/15/25 03/15/25 History cyanocobalamin (vitamin B-12) 100 100 mcg PO DAILY 03/09/25 03/15/25 03/15/25 History mcg tablet (Vitamin B-12) empagliflozin 25 mg tablet 12.5 mg PO DAILY 03/09/25 03/15/25 03/15/25 History (Jardiance) pantoprazole 40 mg tablet,delayed 40 mg PO BID 03/09/25 03/15/25 03/15/25 History release azithromycin 250 mg tablet 250 mg PO DAILY 03/15/25 03/15/25 03/15/25 History prednisone 10 mg tablet See Taper PO DIRECTED #42 tabs 03/17/25 Unknown Rx Allergies Allergy/AdvReac Type Severity Reaction Status Date / Time No Known Allergies Allergy Verified 03/11/25 14:51 PFSH Acute PFSH: Medical History (Updated 03/17/25 @ 17:42 by Arabella Beaver MD) History of ESBL E. coli infection Low back pain radiating to lower extremity Greater trochanteric bursitis of left hip Decompensated heart failure Peripheral artery occlusion Port-A-Cath in place 12/02/23 Dr Roberts Greater trochanteric bursitis of right hip Prostate cancer History of colon polyps Chronic anticoagulation eliquis, for afib Chronic respiratory failure with hypoxia Heart failure with preserved ejection fraction Coronary artery disease CHF (congestive heart failure) Last echocardiogram normal EF, grade 2/4 diastolic dysfunction October 2019 Hypertension Anemia Atrial fibrillation GERD (gastroesophageal reflux disease) Hypothyroidism Hyperlipidemia COPD (chronic obstructive pulmonary disease) Surgical History History of cataract surgery Left eye - 12/2022 H/O prostate biopsy S/P appendectomy S/P cholecystectomy History of colonoscopy (~04/2020) History of vasectomy History of knee surgery History of coronary artery bypass graft (03/2019) [address] [place] [address] Family History Father , IN HIS 50'S Lung disease tuberculosis Mother , AT AGE 63 CAD (coronary artery disease) Diabetes Hypertension Sister Cancer Denies family history of Clotting disorder Dementia Hyperlipidemia Psychiatric illness Chronic kidney disease (CKD) Suicide Anesthesia complication Bleeding disorder Stroke Social History Smoking and tobacco/nicotine status: former use of tobacco/nicotine Quit status (tobacco/nicotine): has quit using Year quit tobacco: 2017 - 4 PPD x 52 Years Alcohol intake: never Substance/Drug Use: never Lives independently: Yes Household members: none Marital status: Legally Current occupational status: employed and retired Do you think of yourself as: Straight/Heterosexual Current gender identity: Male Vitals/I&O/Wt Last Vital Signs Temp 97.9 F 03/17/25 12:00 Pulse 87 03/17/25 14:16 Resp 20 H 03/17/25 14:16 BP 138/65 03/17/25 14:16 Pulse Ox 96 03/17/25 14:16 O2 Del Method Nasal Cannula 03/17/25 13:52 O2 Flow Rate 3 03/17/25 13:52 03/17/25 03/17/25 03/17/25 06:59 14:59 22:59 Intake Total 50 / 990 360 / 360 Output Total 350 / 800 600 / 600 Balance -300 / 190 -240 / -240 Weight last 48 hrs Weight 102.2 kg Weight 100.1 kg Data 03/17/25 03:55 03/17/25 03:55 Micro: Microbiology 03/15/25 13:17 Gram Stain - Final Sputum - Expectorated Sputum Sputum Culture - Final Escherichia coli esbl NAME: RobertGabino Jose Manuel Mason LOC: [facility] U #: [id number] AGE/SX: 69/M ROOM: [facility] RE03/15/[address]: Fran Wyatt MD : 1955 BED: 2 DIS: 03/17/25 FAX #: STATUS: DIS IN TLOC: Spec #: [id number] Louise: 03/15/251317 Status: COMP Req #: [id number] Recd: 03/15/25-[address]: Fran Wyatt MD Src: Sputum SpDesc: Expec Sput Ordered: SPU Cult & GS Procedure Result Verified Site Gram Stain Final 03/16/25-0916 Result FEW GRAM POSITIVE COCCI IN PAIRS IN CHAINS RARE GRAM NEGATIVE RODS RARE WHITE BLOOD CELLS RARE EPITHELIAL CELLS Sputum Culture Final 03/17/25-6989 Organism 1 Escherichia coli esbl Growth MODERATE DAY 2 [facility] RX --------- ------ * Amikacin <=16 S * Amoxicillin/Clavulanate 16/8 I * Ampicillin >16 R * Ampicillin/Sulbactam >16/8 R * Aztreonam >16 R * Cefepime >16 R * Ceftriaxone >32 R * Cefuroxime >16 R * Ciprofloxacin <=1 S * Gentamicin >8 R * Imipenem <=1 S * Levofloxacin <=2 S * Tetracycline >8 R * Tobramycin >8 R * Trimethoprim/Sulfamethoxazole <=2/38 S * Piperacillin/Tazobactam <=16 S Sputum Culture Preliminary (changed) 03/16/25-1551 Organism 1 Gram Negative Rods Growth MODERATE A&P Assessment and plan 1. Aspiration pneumonia: 69-year-old male with witnessed aspiration event followed by shortness of breath. CT of the chest showing dense left lower lobe consolidation with cavitation. Sputum culture with ESBL E. coli. Agree with IV ertapenem at the time of discharge over the next 10 days given recent history of recurrent admissions. ID team can follow shopuld any issues arise with outpatient iv infusions as planned. PDMP PDMP Reviewed: Not Reviewed 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 of Care Code Acute Code for [facility] Diagnoses Aspiration pneumonia J69.0
== END 2025-03-17 16:37 | disposition home or self-care (01) | DRG 177 ==
LOC: ER 12:45 → CSU 13:17
PROVIDERS: Admitting Provider Student in an Organized Health Care Education/Training Program; Emergency Provider Family Medicine; PCP Nurse Practitioner; Visit Provider Student in an Organized Health Care Education/Training Program
DX: J69.0 Pneumonitis due to inhalation of food and vomit (principal); J96.21 Acute and chronic respiratory failure with hypoxia; J44.1 Chronic obstructive pulmonary disease with (acute) exacerbation; I50.32 Chronic diastolic (congestive) heart failure; I11.0 Hypertensive heart disease with heart failure; I48.0 Paroxysmal atrial fibrillation; Z79.01 Long term (current) use of anticoagulants; I25.119 Atherosclerotic heart disease of native coronary artery with unspecified angina pectoris; K21.9 Gastro-esophageal reflux disease without esophagitis; E78.5 Hyperlipidemia, unspecified; E03.9 Hypothyroidism, unspecified; Z87.891 Personal history of nicotine dependence; Z95.1 Presence of aortocoronary bypass graft; Z79.02 Long term (current) use of antithrombotics/antiplatelets
CPT/HCPCS: 36415; 36416; 36569; 36600; 71045; 71275; 80051; 80053; 80061; 81001; 82330; 82607; 82746; 82805; 82962; 83036; 83540; 83550; 83605; 83735; 83880; 84100; 84145; 85025; 85378; 86403; 87040; 87070; 87077; 87186; 87205; 87486; 87581; 87633; 92523; 92526; 92610; 93005; 94640; 94664; 94669; 96372; 96374; 99285; C1751; J1335; J1815; J1956; J2543; J2919; J7030; J7608; J7614; J7626; J7644; J9999; Q0144

== ENCOUNTER 2025-03-27 10:19 | Oncology outpatient (recurring) (ONCR) | payer OTHER, SELFPAY ==
[2025-03-18] MEDS: ertapenem 1,000 mg SDV 1000 MG IVP (10:47)
[2025-03-18 10:56] VITALS: BP 130/50; PULSE 76; RESP 18; TEMP 36.7; O2SAT 92
[2025-03-18 10:57] LABS: Hematocrit 32.9 % (37-53); Hemoglobin 10.20 g/dL (11.27-16.99); Mean Corpuscular HGB Conc 31.0 g/dL (30-55); Mean Corpuscular Hemoglobin 27.5 pg (27-33); Mean Corpuscular Volume 88.7 fl (82-101); Nucleated Red Blood Cells % 0 %; Platelet Count 194 10^3/cmm (157-399); Red Blood Count 3.71 10^6/uL (3.85-5.65); White Blood Count 6.42 10^3/uL (3.29-11.43)
--- NOTE | 2025-03-18 11:00 | PC.NURSE ---
Pt presented to Infusion services for ordered antibiotic infusion. Pt was noted to have irregular heart rate. Rate ranged from 208 to 46 to 76. Patient states he has history of atrial fib and has noted his heart racing this morning. Patient states he did not take his medications this morning, he was encouraged to take his medication as soon as possible and to see medical attention if symptoms worsen.
[2025-03-18 11:16] LABS: Alanine Aminotransferase 46 U/L (0-41); Albumin Level 3.1 g/dL (3.5-5.2); Alkaline Phosphatase 89 U/L (40-130); Anion Gap 17.0 (5-19); Aspartate Amino Transferase 27 U/L (0-40); Blood Urea Nitrogen 25 mg/dL (8-23); Calcium 8.1 mg/dL (8.5-10.5); Carbon Dioxide 26 mmol/L (22-29); Chloride 103 mmol/L (98-107); Creatinine Clr Calc Pharmacy 96.2262; Globulin 3.1 g/dL (1.3-4.6); Glucose 242 mg/dL (65-115); Osmolality Calculated 306 mOsm/kg (285-295); Potassium 4.0 mmol/L (3.5-5.1); Sodium 142 mmol/L (136-145); Total Protein 6.2 g/dL (6.6-8.7)
[2025-03-19] MEDS: ertapenem 1,000 mg SDV 1000 MG IVP (09:58)
[2025-03-20 10:00] VITALS: BP 141/64; PULSE 56; RESP 16; TEMP 36.6; O2SAT 95
[2025-03-20] MEDS: ertapenem 1,000 mg SDV 1000 MG IVP (10:02)
[2025-03-21 10:00] VITALS: BP 139/73; PULSE 56; RESP 18; TEMP 36.4; O2SAT 95
[2025-03-21] MEDS: ertapenem 1,000 mg SDV 1000 MG IVP (10:09)
--- NOTE | 2025-03-21 10:25 | PC.NURSE ---
10:00 MID LINE FLUSHED WITH STERILE SALINE FLUSH, WITH GOOD BLOOD DRAW BACK. 10:15 IV MEDICATION GIVEN SLOW IVP OVER 7 MINUTES. LINE FLUSHED WITH 20lm OF STERILE SALINE FLUSH AND NEW END CAP APPLIED USING STERILE TECHNIQUE. PATIENT TOLERATED PROCEDURE WELL.
[2025-03-22] MEDS: ertapenem 1,000 mg SDV 1000 MG IVP (10:01)
[2025-03-23 09:50] VITALS: BP 124/68; PULSE 78; RESP 17; TEMP 36.1; O2SAT 97
[2025-03-23] MEDS: ertapenem 1,000 mg SDV 1000 MG IVP (10:01)
[2025-03-24] MEDS: ertapenem 1,000 mg SDV 1000 MG IVP (09:35)
[2025-03-24 10:18] LABS: Hematocrit 35.4 % (37-53); Hemoglobin 11.10 g/dL (11.27-16.99); Mean Corpuscular HGB Conc 31.4 g/dL (30-55); Mean Corpuscular Hemoglobin 28.5 pg (27-33); Mean Corpuscular Volume 91.0 fl (82-101); Nucleated Red Blood Cells % 0 %; Platelet Count 221 10^3/cmm (157-399); Red Blood Count 3.89 10^6/uL (3.85-5.65); White Blood Count 7.25 10^3/uL (3.29-11.43)
[2025-03-24 10:37] LABS: Alanine Aminotransferase 15 U/L (0-41); Albumin Level 3.2 g/dL (3.5-5.2); Alkaline Phosphatase 86 U/L (40-130); Anion Gap 12.4 (5-19); Aspartate Amino Transferase 10 U/L (0-40); Blood Urea Nitrogen 18 mg/dL (8-23); Calcium 7.8 mg/dL (8.5-10.5); Carbon Dioxide 30 mmol/L (22-29); Chloride 102 mmol/L (98-107); Creatinine Clr Calc Pharmacy 96.2262; Globulin 2.7 g/dL (1.3-4.6); Glucose 152 mg/dL (65-115); Osmolality Calculated 297 mOsm/kg (285-295); Potassium 3.4 mmol/L (3.5-5.1); Sodium 141 mmol/L (136-145); Total Protein 5.9 g/dL (6.6-8.7)
[2025-03-24 10:40] VITALS: BP 114/74; PULSE 74; RESP 16; TEMP 36.7; O2SAT 95
[2025-03-25] MEDS: ertapenem 1,000 mg SDV 1000 MG IVP (10:08)
[2025-03-25 10:17] VITALS: BP 103/57; PULSE 74; RESP 16; TEMP 36.8; O2SAT 95
[2025-03-26] MEDS: ertapenem 1,000 mg SDV 1000 MG IVP (10:30)
[2025-03-27] MEDS: ertapenem 1,000 mg SDV 1000 MG IVP (10:05)
[2025-03-27 10:15] VITALS: BP 124/45; PULSE 83; RESP 18; TEMP 36.6; O2SAT 92
--- NOTE | 2025-03-27 10:29 | PC.NURSE ---
1010. Right midline access removed without incident, pressure held and dressed with gauze and coban
== END 2025-04-02 23:59 | disposition home or self-care (01) ==
LOC: OPS 03-28 00:01
PROVIDERS: Student in an Organized Health Care Education/Training Program; PCP Nurse Practitioner; Visit Provider Student in an Organized Health Care Education/Training Program
DX: Z86.19 Personal history of other infectious and parasitic diseases; Z79.899 Other long term (current) drug therapy; Z53.9 Procedure and treatment not carried out, unspecified reason
CPT/HCPCS: 36592; 80053; 85025; 96365; 96374; 96375; 99213; 99214; 99496; J1335

== ENCOUNTER 2025-04-01 14:16 | Inpatient (IN) | payer OTHER, SELFPAY ==
--- OUTSIDE RECORDS SUMMARY | 2024-02-27 10:00 | XMS_ITS ---
Author Organization [facility] Address [address] [place] [address] Care Team Providers Care Form Setter/Driver Name Role Phone Sameera Patel Unavailable REASON FOR VISIT 3m f/u With BMP and bone density test, for possible Prolia.,Source Provider:RAÚL MATUTE Encounters Encounter Location Date Provider Diagnosis [facility] [address] [place] [address] [address] [place] [address] 02/27/2024 Sameera Patel Plan Of Treatment No Information Progress Notes * SEA HODGEDOB:1955 (69 yo M)Acc No.[id number]:02/27/2024 Progress Notes Patient: SEA BELL CYRUS Provider: PATO Stover :1955 A ge:68 Y S ex:Male Date:02/27/2024 Address: [address], [place] Subjective: * Chief Complaints: * 3 m f/u With BMP and bone density test, for possible Prolia.,Source Provider:RAÚL MATUTE * Electronic signature of PATO Saldana on 04/01/2025 at 02:23 PM CDT Sign off status: Pending * Provider: PATO Stover Date: 0 02/27/2024 Generated for Printzelda preciado/Fiordaliza/eTransmitting on: 1 02:23 PM CDT
--- OUTSIDE RECORDS SUMMARY | 2024-03-16 06:30 | XMS_ITS ---
Author Organization [facility] Address [address] [place] [address] Care Team Providers Care Vamp Marker Name Role Phone Sameera Patel REASON FOR VISIT 3m f/u With BMP and bone density test, for possible Prolia., Encounters Encounter Location Date Provider Diagnosis [facility] [address] [place] [address] [address] [place] [address] 03/16/2024 Sameera Patel Plan Of Treatment No Information Progress Notes * SEA HODGEDOB:1955 (69 yo M)Acc No.[id number]:03/16/2024 Progress Notes Patient: SEA BELL CYRUS Provider: PATO Stover :1955 A ge:68 Y S ex:Male Date:03/16/2024 Address: [address], [place] Subjective: * Chief Complaints: * 3 m f/u With BMP and bone density test, for possible Prolia., * Electronic signature of PATO Saldana on 04/01/2025 at 02:23 PM CDT Sign off status: Pending * Provider: PATO Stover Date: Generated for Halie flowers/Fiordaliza/Shaguftaitting on: 02:23 PM CDT
--- OUTSIDE RECORDS SUMMARY | 2024-04-06 08:00 | XMS_ITS ---
Author Organization [facility] Address [address] [facility] [place] [address] Care Team Providers Care Farmer And Grazier Name Role Phone Sameera Patel REASON FOR VISIT 3m f/u With BMP and bone density test, for possible Prolia., Encounters Encounter Location Date Provider Diagnosis [facility] [address] [place] [address] [address] [place] [address] 04/06/2024 Sameera Patel Plan Of Treatment No Information Progress Notes * SEA HODGEDOB:1955 (69 yo M)Acc No.[id number]:04/06/2024 Progress Notes Patient: SEA BELL CYRUS Provider: PATO Stover :1955 A ge:68 Y S ex:Male Date:04/06/2024 Address: [address], [id number] Subjective: * Chief Complaints: * 3 m f/u With BMP and bone density test, for possible Prolia., * Electronic signature of PATO Saldana on 04/01/2025 at 02:24 PM CDT Sign off status: Pending * Provider: PATO Stover Date: 06/06/2023 Generated for Halie flowers/Fiordaliza/Quinn on: 02:24 PM CDT
--- OUTSIDE RECORDS SUMMARY | 2024-05-20 09:10 | XMS_ITS ---
Author Organization [facility] Address [address] [place] [address] Care Team Providers Care Rural Route Carrier Name Role Phone Sameera Patel [phone] REASON FOR VISIT 3m f/u With BMP and bone density test, for possible Prolia., Encounters Encounter Location Date Provider Diagnosis [facility] [address] [place] [address] [address] [place] [address] 05/20/2024 Sameera Patel Plan Of Treatment No Information Progress Notes * SEA HODGEDOB:1955 (69 yo M)Acc No.[id number]:05/20/2024 Progress Notes Patient: SEA BELL CYRUS Provider: PATO Stover :1955 A ge:68 Y S ex:Male Date:05/20/2024 Address: [address], [id number] Subjective: * Chief Complaints: * 3 m f/u With BMP and bone density test, for possible Prolia., * Electronic signature of PATO Saldana on 04/01/2025 at 02:23 PM CDT Sign off status: Pending * Provider: PATO Stover Date: 07/21/2023 Generated for Halie flowers/Fiordaliza/Quinn on: 02:23 PM CDT
--- OUTSIDE RECORDS SUMMARY | 2024-10-05 06:10 | XMS_ITS ---
Author Organization [facility] Address [address] [place] [address] Care Team Providers Care Human Resources Talent Manager Name Role Phone Sameera Patel Unavailable REASON FOR VISIT 3 month f/u with psa ua pvr and bone density Encounters Encounter Location Date Provider Diagnosis [facility] [address] [place] [address] [address] [place] [address] 10/05/2024 Sameera Patel Personal history of malignant neoplasm of prostate Z85.46 ; Bladder neck obstruction N32.0 ; custodial (current) use of other agents affecting estrogen receptors and estrogen levels Z79.818 and Urinary retention R33.9 Assessments Encounter Date Diagnosis (ICD Code) Assessment Notes Treatment Notes Treatment Clinical Notes Section Notes 10/05/2024 Personal history of malignant neoplasm of prostate (ICD-10 - Z85.46) 10/05/2024 Bladder neck obstruction (ICD-10 - N32.0) 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 Shepherd about a prostatectomy, he denied being on androgen ablation, we requested records from oncology in [place] to determine what his plan of care was He was having issues with urgency and frequency, we placed him on Gemtesa for 4 weeks to see if that would help his issues He was supposed to have a bone density test Progress Notes * AYESHA SEA BRIDGESDOB:1955 (69 yo M)Acc No.[id number]:10/05/2024 Progress Notes Patient: SEA BELL Provider: PATO Stover :1955 A ge:69 Y S ex:Male Date:10/05/2024 Address:[place] [address], [facility] Subjective: * Chief Complaints: * 3 month f/u with psa ua pvr and bone density * HPI: Giovanny slade Note: 68-year-old male presents to the clinic for follow-up Last seen in July 2024 prostate cancer, Treated with EBRT +5 = 10 prostate cancer ADT in [place] with oncology PSA was less than 0.014 in 2023 Tamsulosin twice daily Bone scan performed at [facility] on 03/07/2024 show no osseous lesions suspicious for metastatic disease, soft tissue contour is normal, kidneys normal, degenerative type uptake in both shoulders and AC joints, degenerative uptake in both knees and ankles No evidence of osseous metastatic disease Patient went to talk to Dr. Shepherd about a prostatectomy, he denied being on androgen ablation, we requested records from oncology in [place] to determine what his plan of care [...] 10/05/2024 Generated for Halie flowers/Fiordaliza/Quinn on: 1 02:23 PM CDT
[2025-04-01] VITALS (10 sets, daily range): BP systolic 95–123; BP diastolic 48–74; PULSE 60–97; RESP 16–18; TEMP 36.3–36.6; O2SAT 94–98; BMI 27.6
--- NOTE | 2025-04-01 14:16 | XR_ITS ---
WS: [id number] Exam: XR chest 1V portable [id number] Date/Time of Exam: 04/01/2025 2:16 PM Reason For Exam: sob Comparison 03/15/2025. There is increasing infiltrate in the RIGHT basal region suspicious for developing pneumonia. Extensive areas of fibrosis and honeycombing throughout the lower two thirds of the LEFT lung is stable in appearance. No pneumothorax. Bullous emphysematous changes in the upper lung zones. Mild cardiac enlargement unchanged. No pleural effusion. Signs of previous CABG surgery. XR/XR chest 1V portable [id number] IMPRESSION: 1. Findings suspicious for active pneumonia in the RIGHT basal region superimpo sed on chronic changes. 2. Stable appearing extensive chronic change in the LEFT lung. Mild cardiomegal y unchanged.
--- OUTSIDE RECORDS SUMMARY | 2025-04-01 14:23 | XMS_ITS | Data Portability ---
Author Organization [place] [facility] [place], ADMIN Address [address] [place] [id number] Assessment Encounter Date Assessment Date Assessment LastModified by Organization Details LastModified Time 05/05/2024 05/05/2024 68-year-old male patient. [email or web address] Not available 05/05/2024 15:48:53 10/27/2024 10/27/2024 Impression: - Large paraesophageal hernia - Kenton's ulcers c/w GI bleed - HTN - HLD, coronary artery disease s/p CABG - Atrial fibrillation on Eliquis - Congestive heart failure - COPD, GERD Plan: - Patient still deconditioned, still recovering in the rehab. Will see him back in 6 months, re-evaluate and discuss plans moving forward. Medical Decision Making 10/27/2024: We discussed the patient's symptoms, I reviewed the medical comorbidities, imaging work up and home medications. Patient has multiple comorbidities, significant for A-fib on Eliquis, CHF, COPD, GERD, CAD status post CABG, hypertension, hyperlipidemia, and a large paraesophageal hernia. In the setting of a large paraesophageal hernia and anticoagulation with Eliquis he presented to the hospital with upper GI bleed and found to have Kenton's ulcers. Prior to presenting to the hospital patient was at a rehab recovering from a knee surgery. He had a prolonged hospitalization after admission, complicated with pneumonia, severe deconditioning. He was eventually discharged back to rehab which is where he is right now. He continues to be on Eliquis, however his PPI was switched for omeprazole daily to now pantoprazole 40 mg twice daily. He is recovering nicely. But still is wheelchair bounded. I discussed with the patient that at the moment he is very high risk for surgery. He is still recovering at the rehab, he lives alone, has had 2 hospitalizations in the past couple months and has not been able to make it back home. I will give him time to recover, continue PPI pantoprazole 40 twice daily, continue with rehab and see him back in 6 months. In 6 months we will discuss surgery, where he will need cardiology and pulmonology clearance if he is interested in undergoing paraesophageal hernia repair. Patient demonstrates understanding and agrees with the outlined plan I spent a total of 60-69 minutes (exact time 69 mins) on the date of service in preparation, delivery, and documentation of the care provided to Gabino Hodge excluding any time spent in the performance of separately billed services. Signature: Norm Bray M.D. Bariatric, Foregut and General Surgeon Department of Surgery, [facility] Not available 10/27/2024 13:41:59 10/28/2024 10/28/2024 69-year-old male patient. estonecipher Not available 10/28/2024 15:30:29 11/24/2024 11/24/2024 69-year-old male presents to clinic for colonoscopy consult. Patient previously underwent colonoscopy 03/24/2024 at [facility] in [place]. Colonoscopy revealed a large ascending colon polyp. Due to the patient experiencing coughing fits during the procedure the polyp was not able to be removed. Colonoscopy was also incomplete and the cecum was not visualized. Patient is here today to complete colonoscopy for reevaluation of colon polyps with polyp removal. Patient denies any GI complaints today. Patient has a past medical history of A-fib, CHF, coronary artery disease status post cardiac stent placement, hypertension, hyperlipidemia, COPD, diabetes mellitus and prostate cancer. He is anticoagulated with Eliquis. Previous surgeries include CABG 2019, cholecystectomy, appendectomy, cataract surgery and left total knee replacement. He reports a family history of colon cancer in his brother. Patient is a former smoker. Patient is a nondrinker. Impression: 1. History of incomplete colonoscopy 03/24/2024 at [facility] in [place], large ascending polyp identified without removal due to patient having coughing spells during procedure and increased abdominal tension 2. History of multiple colon polyps 3. Family history of colon cancer in brother 4. Other medical issues: A-fib, CHF, CAD status post stent placement, hypertension, hyperlipidemia, COPD, diabetes mellitus, prostate cancer 5. Anticoagulant therapy with Eliquis Recommendation: 1. Schedule colonoscopy for further evaluation of colon polyps and history of incomplete colonoscopy 03/24/2024 2. Follow-up in GI clinic 2 weeks post endoscopic procedure [email or web address] Not available 11/24/2024 11:56:04 12/15/2024 12/15/2024 69-year-old male presents to clinic for follow-up to discuss colonoscopy results. Patient was previously evaluated for history of incomplete colonoscopy and colon polyps. Patient denies any GI complaints today. Patient has a past medical history of A-fib, CHF, coronary artery disease status post cardiac stent placement, hypertension, hyperlipidemia, COPD, diabetes mellitus and prostate cancer. He is anticoagulated with Eliquis. Previous surgeries include CABG 2019, cholecystectomy, appendectomy, cataract surgery and left total knee replacement. He reports a family history of colon cancer in his brother. Patient is a former smoker. Patient is a nondrinker. Colonoscopy 12/01/2024: Moderate internal hemorrhoids. Moderate diverticulosis of the sigmoid colon with luminal narrowing and muscular hypertrophy at the sigmoid colon. 22 mm flat transverse colon polyp removed completely by piecemeal excision. 3 endoclips were applied to the polypectomy site due to mild oozing of blood. 10 mm sessile right colon polyp removed completely. Otherwise normal exam to the cecum. Pathology: Right polypectomy revealed tubular adenoma without dysplasia. Transverse polypectomy revealed tubular adenoma without dysplasia Impression: 1. Adenomatous colon polyps 2. No family history of colon cancer 3. Other medical issues: A-fib, CHF, CAD status post stent placement, hypertension, hyperlipidemia, COPD, diabetes mellitus, prostate cancer 4. Anticoagulant therapy with Eliquis Recommendation: 1. Repeat colonoscopy in 1 year 2. Follow-up as needed [email or web address] Not available 12/15/2024 10:58:05 Plan of Treatment Reminders Order Date Submit Date Provider Last Modified By Organization Details Last Modified Time Details Appointments *Follow-u p 15 2024 01:00P Ching Sheets M.D. Not available Not available Not available Establish ed Patient 2025 09:00A Ching MELGOZA, P.A. Not available Not available Not available Lab None recorded. Referral None recorded. Procedures colonosco py procedure (PROC) - IV Lock, Initiate Take biopsies if indicated , possible hemorroid al banding, possible argon plasma coagulati on, possible hot/cold snare polypecto my, possible dilation of stricture . CPT: 61526, 13041, 96019,453 82 2024 025 [facility], [address], [place], [address], 12/01/2024 12:00:14 Surgeries None recorded. Imaging None recorded. Medication Orders MoviPrep 100 gram-7.5 gram-2.69 1 gram oral powder packet 2024 025 [facility], [address], [place], [address], 11/24/2024 10:49:24 Patient TargetsNo targets recorded. Patient Instructions Encounter Date Encounter Id Patient Instructions Last Modified By Organization Details Last Modified Time 05/05/2024 [id number] chronic obstructive pulmonary disease (COPD): [facility] Not available 05/30/2024 13:29:12 learning about copd and how to prevent lung infections [facility] Not available 05/30/2024 13:29:12 10/28/2024 [id number] chronic [facility] pulmonary [facility] ([facility]D): [facility] Not available 10/28/2024 15:45:57 learning about copd and how to prevent lung infections [facility] Not available 10/28/2024 15:45:57 Reason for Referral None Reported. Results Created Date Observation Date Name Description Value Unit Range Abnormal Flag Note LastModifiedBy Organization Detail LastModifiedTime 12/02/1912/01/2024 GLUCO SE LEVEL POC BEDSI DE glu POC bdside 122 mg/dL 65-90 high Opera tor ID: [id number] Not Available [facility] (Lab)_do Not Use [address], [place], [address], 12/01/2024 08:53:13 04/08/20 24 03/26/2024 LDCT, chest , for lung cance r scree love No observ ation record ed. BARCODE Not Available 2023 15:46:30 11/17/19 25 10/28/2024 CT, chest , w/o contr ast [place] [facility] [address] [place] [address]- Patien t: GABINO HODGE Sr [id number] : 955 Sex:Ma le Locati on: MOBI CT Orderi ng Physic hilda: DENAE MOURA MD Comput ed Tomogr aphy Access ion Exam Date/T karina [id number] 0038 025 13:33 CDT Reason for Exam R91.8 Other nonspe cific abnorm al findin g of lung field [address]17 Report EXAM: CT CHEST WITHOU T CONTRA ST HISTOR Y: Follow up left lower lobe consol idatio n COMPAR EZIO: Chest x-ray 025 TECHNI QUE: Serial axial images of the chest were obtain ed from the lung apices to the upper abdome n withou t contra st. These were viewed in multip le planes . FINDIN GS: The thyroi d is normal . The visual ized vessel s demons trate mild athero sclero tic diseas e withou t aneury sm or stenos is. Sterno ricardo wires are presen t with change s of prior CABG. Sterno ricardo wires are presen t. The heart is enlarg ed withou t perica rdial fluid. Priors a modera te hiatal hernia . There are no pathol ogical ly enlarg ed lymph nodes. There is no pneumo thorax or effusi on. There is severe emphys gen. There is depend ent atelec tasis/ consol idatio n. There is bronch iectas is. There is questi onable right lung pulmon minh nodule with irregu lar margin s on axial image 35 measur ing 1.8 x 1.4 cm. Centra l airway s are patent . Limite d views of the soft tissue s in the upper abdome n demons trate prior cholec ystect mitali. There is an exophy tic low attenu ation right renal cyst. There is degene rative diseas e. IMPRES MECCA: 1. Signif icant improv ement in the left lower lobe consol idatio n. 2. Irregu lar nodule s/cons olidat ion in the depend ent right upper lobe as measur ed above. Short interv al follow up in 3 months is recomm ended. 3. Depend ent atelec tasis with severe emphys gen/CO PD. 4. Cardio megaly with prior CABG. 5. Modera te hiatal hernia . All CT scans are perfor med using dose optimi zation techni ques as approp riate to the perfor med exam and includ e Comput ed Tomogr aphy Report at least one of the follow ing: Automa sandra exposu re contro l, adjust ment of the mA and/or kV accord ing to size, and the use of iterat aimee recons tructi on techni que. Final Signed by: JULIENNE LOPEZ MD Signed (Elect namrata Signludy ure): 2024 11:16 am CDT estonecipher [facility] (Radiology) [address], [place], [address], 11/16/2024 12:18:00 01/16/2011/04/2024 US, duple x, arter ial, lower extre mity, compl ete No observ ation record ed. BARCODE Not Available 2024 16:47:55 Result Notes Documentation Provider Name and Address Organization Details Recorded Time Ct, Chest, W/o Contrast : [facility] [address] [place] [id number]- Patient: GABINO HODGE Sr : 1955 Sex:Male Location: [facility] CT Ordering Physician: ALISON SOLANO MD Computed Tomography Accession Exam Date/Time [id number] 10/28/2024 13:33 CDT Reason for Exam R91.8 Other nonspecific abnormal finding of lung field [id number] Report EXAM: CT CHEST WITHOUT CONTRAST HISTORY: Follow up left lower lobe consolidation COMPARISON: Chest x-ray 09/20/2024 TECHNIQUE: Serial axial images of the chest were obtained from the lung apices to the upper abdomen without contrast. These were viewed in multiple planes. FINDINGS: The thyroid is normal. The visualized vessels demonstrate mild atherosclerotic disease without aneurysm or stenosis. Sternotomy wires are present with changes of prior CABG. Sternotomy wires are present. The heart is enlarged without pericardial fluid. Priors a moderate hiatal hernia. There are no pathologically enlarged lymph nodes. There is no pneumothorax or effusion. There is severe emphysema. There is dependent atelectasis/consolidation. There is bronchiectasis. There is questionable right lung pulmonary nodule with irregular margins on axial image 35 measuring 1.8 x 1.4 cm. Central airways are patent. Limited views of the soft tissues in the upper abdomen demonstrate prior cholecystectomy. There is an exophytic low attenuation right renal cyst. There is degenerative disease. IMPRESSION: 1. Significant improvement in the left lower lobe consolidation. 2. Irregular nodules/consolidation in the dependent right upper lobe as measured above. Short interval follow up in 3 months is recommended. 3. Dependent atelectasis with severe emphysema/COPD. 4. Cardiomegaly with prior CABG. 5. Moderate hiatal hernia. All CT scans are performed using dose optimization techniques as appropriate to the performed exam and include Computed Tomography Report at least one of the following: Automated exposure control, adjustment of the mA and/or kV according to size, and the use of iterative reconstruction technique. Final Signed by: KADEEM LOPEZ MD Signed (Electronic Signature): 11/16/2024 11:16 am RUTHY Bains LPN [facility] [place] 11/16/2024 12:18:00 Problems Name Problem SNOMED Code Status Onset Date Resolution Date Notes Provider Name and Address Organization Details Recorded Time Polyp of colon 38035629 Active 2024 SH[address]ON LAKHANI [address] [place] [address], [id number], [facility] [place] 5 09:52:53 Tubular adenomatous polyp of colon 630720622 Active 2024 SHARON LAKHANI [address] [place] [address], [phone], [facility] [place] 5 10:58:22 Problem Notes None recorded. Procedures Surgical History Date Name Laterality Status Provider Name and Address Organization Details Recorded Time cholecystectomy completed Gardenia Gonzalez LPN [address] 12/19/2023 15:34:57 Appendectomy completed Gardenia Gonzalez LPN [address] 12/19/2023 15:35:10 open heart surgery completed Tiesha gerard LukeDELVIN nolan [address] 12/19/2023 15:35:26 arthroplasty of knee completed Evelyn Huddleston [address] 11/24/2024 09:33:01 Imaging Results None recorded. Procedure Notes None recorded. Medical Equipment None Reported. Allergies Allergen ID Allergen Name Allergen Category Reaction Reaction Severity Criticality Documentation Date Start Date Code Code System Note Provider Name and Address Organization Details Recorded Time 894370 bupropion Not available Not available Not available Not available 12/19/2023 65206 RxNorm DELVIN Cespedes [address] 4 15:15:22 [id number] Wellbutri n medicatio n Not available Not available Not available 12/19/2023 72405 RxNorm DELVIN Cespedes [address] 4 15:15:51 Medications Name Sig Start Date Stop Date Status Note LastModified by Organization Details LastModified Time furosemide 40 mg tablet Take 1 tablet every day by oral route. active Not Available Not Available No t Available ipratropium 0.5 mg-albutero l 3 mg (2.5 mg base)/3 mL nebulizatio n soln INHALE 3ml PER nebulizer FOUR TIMES DAILY 10/27 completed Not Available Not Available Not Available albuterol sulfate 2.5 mg/3 mL (0.083 %) solution for nebulizatio n Inhale 3 mL 3 times a day by nebulizat ion route. active Not Available Not Available No t Available atorvastati n 10 mg tablet Take 1 tablet every day by oral route at bedtime. active Not Available Not Available No t Available prednisone 20 mg tablet TAKE 2 TABLETS BY MOUTH ONCE DAILY active Not Available Not Available No t Available aspirin 81 mg tablet,jovany yed release Take 1 tablet every day by oral route. active Not Available Not Available No t Available tramadol 50 mg tablet Take 1 tablet every 8 hours by oral route as needed. active Not Available Not Available No t Available acyclovir 800 mg tablet TAKE 1 TABLET BY MOUTH five times a DAY for 10 days 12/18 completed Not Available Not Available Not Available acetaminoph en ER 650 mg tablet,exte nded release Take 1 tablet every 6 hours by oral route as needed. active Not Available Not Available No t Available potassium chloride 20 mEq oral packet Take 1 packet every day by oral route. active Not Available Not Available No t Available tamsulosin 0.4 mg capsule Take 1 capsule twice a day by oral route. 11/24 completed Not Available Not Available Not Available phenazopyri dine 100 mg tablet TAKE 1 TABLET BY MOUTH EVERY 8 HOURS NEEDED 12/18 completed Not Available Not Available Not Available cephalexin 500 mg capsule take 1 capsule BY MOUTH EVERY 6 HOURS FOR 10 DAYS 10/27 completed Not Available Not Available Not Available pantoprazol e 40 mg tablet,jovany yed release Take 1 tablet twice a day by oral route. active Not Available Not Available No t Available ferrous sulfate 325 mg (65 mg iron) tablet Take 1 tablet every other day by oral route. 11/24 completed Not Available Not Available Not Available levothyroxi ne 125 mcg tablet Take 1 tablet every day by oral route. active Not Available Not Available No t Available brimonidine 0.2 % eye drops administe r ONE drop into THE right EYE EVERY 8 HOURS 10/27 completed Not Available Not Available Not Available metoprolol tartrate 50 mg tablet Take 1 tablet twice a day by oral route. active Not Available Not Available No t Available budesonide 0.5 mg/2 mL suspension for nebulizatio n INHALE 2ml PER nebulizer TWICE DAILY 10/27 completed Not Available Not Available Not Available magnesium citrate oral solution 11/24 completed Not Available Not Available Not Available folic acid 1 mg tablet Take 1 tablet every day by oral route. active Not Available Not Available No t Available dorzolamide 22.3 mg-timolol 6.8 mg/mL eye drops INSTILL 1 DROP INTO LEFT EYE TWICE A DAY 12/18 completed Not Available Not Available Not Available digoxin 125 mcg (0.125 mg) tablet Take 1 tablet every day by oral route. active Not Available Not Available No t Available gabapentin 100 mg capsule Take 2 capsules 3 times a day by oral route. active Not Available Not Available No t Available ergocalcife rol (vitamin D2) 1,250 mcg (50,000 unit) capsule Take 1 capsule every week by oral route. active Not Available Not Available No t Available levofloxaci n 500 mg tablet TAKE 1 TABLET BY MOUTH EVERY DAY for 7 days 03/26 completed Not Available Not Available Not Available methylpredn isolone 4 mg tablets in a dose pack Take as directed on package for 6 days 10/27 completed Not Available Not Available Not Available sertraline 50 mg tablet Take 1 tablet every day by oral route. active Not Available Not Available No t Available doxycycline hyclate 100 mg tablet TAKE 1 TABLET BY MOUTH TWICE DAILY 10/27 completed Not Available Not Available Not Available loratadine 10 mg tablet Take 1 tablet every day by oral route. active Not Available Not Available No t Available amoxicillin 875 mg-potassiu m clavulanate 125 mg tablet TAKE 1 TABLET BY MOUTH TWICE DAILY 10/27 completed Not Available Not Available Not Available amoxicillin 500 mg-potassiu m clavulanate 125 mg tablet TAKE 1 TABLET BY MOUTH THREE TIMES DAILY FOR 5 DAYS active Not Available Not Available No t Available oxycodone 5 mg tablet TAKE ONE TABLET BY MOUTH EVERY 8 HOURS NEEDED FOR PAIN for FIVE DAYS 10/27 completed Not Available Not Available Not Available moxifloxaci n 0.5 % eye drops administe r ONE drop into right EYE FOUR TIMES DAILY FOR SEVEN DAYS 10/27 completed Not Available Not Available Not Available Antacid 200 mg (as calcium carbonate 500 mg) chewable tablet Take 1 tablet twice a day by oral route. active Not Available Not Available No t Available fluticasone propion-maryanne meterol active Not Available Not Available Not Available MoviPrep 100 gram-7.5 gram-2.691 gram oral powder packet Take 1 dose pk by oral route. 2024 active Not Available Not Available Not Avai lable Senna with Docusate Sodium 8.6 mg-50 mg tablet Take 1 tablet every day by oral route. 11/24 completed Not Available Not Available Not Available insulin glargine (U-100) 100 unit/mL (3 mL) subcutaneou s pen Inject 10 units every day by subcutane ous route as directed. active Not Available Not Available No t Available diclofenac 1 % topical gel APPLY 2 GRAMS TO THE AFFECTED AREA(S) BY TOPICAL ROUTE 4 TIMES PER DAY active Not Available Not Available No t Available Mucus Relief ER 600 mg tablet, extended release TAKE 2 TABLETS BY MOUTH TWICE DAILY NEEDED active Not Available Not Available No t Available apixaban 5 mg tablet Take 1 tablet twice a day by oral route. active Not Available Not Available No t Available empaglifloz in TAKE ONE 12.5 MG TABLET EVERY DAY BY MOUTH DIRECTED active Not Available Not Available No t Available Spiriva Respimat 2.5 mcg/actuati on solution for inhalation Inhale 2 puffs every day by inhalatio n route as directed for 30 days. 10/27 completed Not Available Not Available Not Available tiotropium 2.5 mcg-olodate rol 2.5 mcg/actuati on mist for inhalation Inhale 2 puffs every day by inhalatio n route. active Not Available Not Available No t Available naloxone 4 mg/actuatio n nasal spray Take by nasal route. active Not Available Not Available No t Available Wixela Inhub 500 mcg-50 mcg/dose powder for inhalation Inhale 1 puff twice a day by inhalatio n route as directed for 30 days. 10/27 completed Not Available Not Available Not Available Vitals Date Recorded Body height Oxygen saturation Oxygen saturation in Arterial blood by Pulse oximetry Heart rate Body mass index (BMI) Body weight Systolic And Diastolic Provider Name and Address Organization Details Last Updated DateTime 5 177.8 cm 90 % 90 % 69 /min 27.1 kg/m2 01164.2 4 g 106/53 mm[Hg] Colby Sharma LPN [place] [facility] [place] 5 12:08:29 Date Recorded Body height Body mass index (BMI) Body weight Body temperature Heart rate Oxygen saturation Oxygen saturation in Arterial blood by Pulse oximetry Systolic And Diastolic Provider Name and Address Organization Details Last Updated DateTime 5 177.8 cm 26.8 kg/m2 94708.1 3 g 97.3 [degF] 68 /min 92 % 92 % 102/50 mm[Hg] Airam Marsh LPN [address] 5 15:11:41 Date Recorded Body height Body mass index (BMI) Body weight Oxygen saturation Oxygen saturation in Arterial blood by Pulse oximetry Heart rate Systolic And Diastolic Provider Name and Address Organization Details Last Updated DateTime 5 177.8 cm 26.5 kg/m2 28626.1 5 g 93 % 93 % 80 /min 96/53 mm[Hg] Evelyn Huddleston [address] 5 09:44:18 Date Recorded Body height Body mass index (BMI) Body weight Oxygen saturation Oxygen saturation in Arterial blood by Pulse oximetry Heart rate Systolic And Diastolic Provider Name and Address Organization Details Last Updated DateTime 5 177.8 cm 27 kg/m2 42624.3 7 g 96 % 96 % 80 /min 125/60 mm[Hg] Evelyn Huddleston [address] 5 10:30:29 Date Recorded Body height Body mass index (BMI) Body weight Heart rate Oxygen saturation Oxygen saturation in Arterial blood by Pulse oximetry Systolic And Diastolic Provider Name and Address Organization Details Last Updated DateTime 4 177.8 cm 31.3 kg/m2 39652.8 6 g 100 /min 93 % 93 % 151/66 mm[Hg] Airam Marsh LPN [address] 4 15:45:07 Social History Question Answer Notes LastModified by Organizat ion Details LastModified Time Tobacco Smoking Status Former Smoker quit 2016 Aryan Meza LPN [address] 03/26/2024 13:29:02 Are You Blind Or Do You Have Difficulty Seeing? No [email or web address] Information not available 10/28/2024 What Is Your Level Of Caffeine Consumption? Occasional Information not available 12/19/2023 Are You Deaf Or Do You Have Serious Difficulty Hearing? No [email or web address] Information not available 10/28/2024 What Type Of Diet Are You Following? REGULAR [email or web address] Information not available 12/19/2023 When Did You Quit Smoking? 6-10yearssince lastcigarette [email or web address] Information not available 12/19/2023 What Was The Date Of Your Most Recent Tobacco Screening? 12/15/2024 [email or web address] Information not available 12/15/2024 What Is Your Current Pack Years? 20-29packyears [email or web address] Information not available 10/28/2024 What Is Your Relationship Status? [email or web address] Information not available 12/19/2023 At What Age Did You Start Smoking Tobacco? 9 [email or web address] Information not available 05/05/2024 How Much Tobacco Do You Smoke? 2 PPW [email or web address] Information not available 05/05/2024 How Many Years Have You Smoked Tobacco? 42 [email or web address] Information not available 05/05/2024 Do You Have Difficulty Walking Or Climbing Stairs? Yes [email or web address] Information not available 10/28/2024 Sex: Unknown Functional Status Question Answer Note LastModified by Organizat ion Details LastModified Time Do you use any illicit or recreational drugs? No [email or web address] Information not available 05/05/2024 Do you or have you ever used any other forms of tobacco or nicotine? No [email or web address] Information not available 05/05/2024 What is your level of alcohol consumption? None [email or web address] Information not available 12/19/2023 Are you able to care for yourself independently? No Information not available 10/28/2024 Do you have difficulty dressing, bathing, grooming, or toileting? Yes [email or web address] Information not available 10/28/2024 Mental Status Question Answer Note LastModified by Organization D etails LastModified Time Do you have difficulty concentrating, remembering or making decisions? Yes [email or web address] Information no t available 10/28/2024 Family History Relationship Description Onset Age of this Age Resolved Age Notes LastModified by Organization Details LastModified Time Father No current problems or disability [email or web address] Not available 15:45:38 Mother No current problems or disability [email or web address] Not available 15:45:38 Medical History Condition Response HEART DISEASE Y HYPERTENSION Y Past Encounters Encounter ID Performer Location Encounter Start Date Encounter Closed Date Diagnosis/Indication Diagnosis SNOMED-CT Code Diagnosis ICD10 Code Diagnosis IMO Codes Diagnosis Note [id number] Alison Solano MD [facility] [address] [place] [address] 12/19/2023 14:56:29 12/19/2023 16:00:36 Chronic obstructive pulmonary disease 27314320 J44.9 Patient has shortness of breath on exertion. He denies any cough, sputum production . CT chest done on December 17, 2023 showed significan t emphysemat ous changes. I will change his inhalers to Wixela, Spiriva, and continue albuterol. The plan is:1. Albuterol inhaler or nebulizer every 4 hours as needed for shortness of breath.2. Wixela inhaler 500/50 to be used 1 puff twice daily.3. Spiriva inhaler 2 puffs daily.4. PFT. 5. Alpha-1 mouth swab.6. Follow-up in March 2024. Multiple n odules of lung 944913988 R91.[address] chest done December 17, 2023, it showed multiple lung nodules, the largest was 8 mm at image #271. At this time we will repeat CT chest in March 2024. I explained to the patient that an underlying neoplastic process cannot be excluded, stressed importance of follow-up, he confirmed understand ing. The plan is: 1. CT chest March 2024. 2. Follow-up March 2024. [id number] Alison Solano MD [facility] [address] [place] [address] 03/26/2024 12:27:18 03/26/2024 13:51:45 Patient walked out [id number] Z53.21 Appointmen t reschedule d because patient did not have the CT chest done. [id number] Alison Solano MD [facility] [address] [place] [address] 05/05/2024 15:08:03 05/05/2024 16:14:20 Chronic obstructive pulmonary disease 67755207 J44.9 PFT showed evidence of severe obstructio n. Alpha-1 was MM. Patient has shortness of breath on exertion. He denies any cough, sputum production . CT chest done on December 17, 2023 showed significan t emphysemat ous changes. The plan is:1. Albuterol inhaler or nebulizer every 4 hours as needed for shortness of breath.2. Wixela inhaler 500/50 to be used 1 puff twice daily.3. Spiriva inhaler 2 puffs daily.4. Follow-up in June 2024. ---> PFT done on 05/05/2024 :FEV1/FVC 36%.FEV1 37%.FVC 69%.TLC 125%.DLCO 39%. Multiple n odules of lung [id number] R91.[address] chest done December 17, 2023, it showed multiple lung nodules, the largest was 8 mm at image #271. I reviewed the CT chest done on March 26, 2024, there is a left lung nodule at image #78/344 measures around 1.4 cm. This appears to be new compared to previous imaging. This could be infectious , inflammato ry, and possible neoplastic . I discussed this with the patient. Patient is high risk for pneumothor ax with biopsy given his extensive emphysema. At this time we will repeat CT chest in 3 months from now. I stressed to the patient importance of follow-up, he confirmed understand ing. The plan is:1. CT chest June 2024.2. Follow-up June 2024. [id number] NORM SHEETS MD [facility] [address] [place] [address] 10/27/2024 11:51:03 10/27/2024 18:03:27 Paraesophageal hernia 4415737 K44.9 9220 Gastric hemorrhage 26505 005 K25.4 [id number] Essential hypertension 54006724 I10 11817 Mixed hyperlipidemia 267 411879 E78.2 17361 Paroxysmal atrial fibrillation 473850435 I48.0 9791608 Chronic ob structive pulmonary disease 14398935 J44.9 [id number] Alison Solano MD [facility] [address] [place] [address] 10/28/2024 14:50:04 10/28/2024 15:47:32 Chronic obstructive pulmonary disease 66581572 J44.9 PFT showed evidence of severe obstructio n. Alpha-1 was MM. Patient has shortness of breath on exertion. He denies any cough, sputum production . CT chest done on December 17, 2023 showed significan t emphysemat ous changes. The plan is:1. Albuterol inhaler or nebulizer every 4 hours as needed for shortness of breath.2. Wixela inhaler 500/50 to be used 1 puff twice daily.3. Spiriva inhaler 2 puffs daily.4. Follow-up in February 2025. ---> PFT done on 05/05/2024 :FEV1/FVC 36%.FEV1 37%.FVC 69%.TLC 125%.DLCO 39%. Multiple n odules of lung 362150279 R91.[address] chest done December 17, 2023, it showed multiple lung nodules, the largest was 8 mm at image #271. I reviewed the CT chest done on March 26, 2024, there is a left lung nodule at image #78/344 measures around 1.4 cm. This appears to be new compared to previous imaging. I reviewed the CT chest done on October 28, 2024, the left lung nodule appears to be stable. But there was a new right lung nodule measuring around 2 cm at image #35. This could be infectious , inflammato ry, and possible neoplastic . Patient is at increased risk for pneumothor ax given underlying significan t emphysema changes. Today the patient decided to repeat CT chest in 3 months from now to follow-up. I stressed the importance of follow-up, and I explained that an underlying neoplastic process cannot be excluded. Patient confirmed understand ing. The plan is:1. CT chest February 2025.2. Follow-up February 2025. [id number] SHARON LAKHANI [facility] [address] [facility] [place] [address] 11/24/2024 09:23:08 11/26/2024 11:54:34 Polyp of colon 03340502 K63.5 [id number] Family his tory of cancer of colon 064917331 Z80.0 [id number] SHARON LAKHANI [facility] [address] [place] [address] 12/15/2024 10:17:22 12/15/2024 14:35:47 Tubular adenomatous polyp of colon [id number] D12.6 641050 Health Concerns Section Related Observation LastModified by Organization Detai ls LastModified Time None Recorded Concern Status LastModified by Organization Details LastModified Time None Recorded Advance Directives Directive None Recorded Payers Insurance Date Sequence Insurance Name Policy Number Policy Salgado Covered Member ID Salgado Member ID Guarantor Name 03/03/2025 OPT - [facility] Gabino Hodge [id number] Gabino Hodge Notes Date Note Type Note Provider Name and Address Organization Details Recorded Time 05/05/2024 text/html 68-year-old male patient with a past medical history significant for hypertension, heart disease status post CABG, COPD who presents for follow up. He was last seen in office on 12/19/2023. Today the patient mentioned that he denies shortness of breath on minimal exertion. Patient denies any cough, sputum production, fever, chills, rigors, night sweats, hemoptysis. Patient is on albuterol inhaler/nebulizer, Wixela inhaler, and Spiriva. The patient quit smoking 2016. He smoked for at least 40 years about 1 to 5 packs/day. 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 Imaging: ---> LDCT chest ([facility]) on 11/18/2023:1. Chronic findings as notes 2. Pulmonary nodules as annotated 3. LUNGS-RADS 4ALUNG-RADS: 4A: Suspicious.3 months follow-up low-dose CTAddendum: Noted at the time of the reading, but not mentioned in the initial report is near total resolution of previously noted LLL infiltrate with some residual scarring Alison Solano MD [address], [place], [address], [place] [facility] [place] 05/30/2024 13:29:15 10/27/2024 text/html CC: Patient comes to see me in [facility] complaining of large hiatal hernia, Kenton's ulcers HPI 10/27/2024:69 y.o. male with a past medical history of hypertension, hyperlipidemia, coronary artery disease s/p CABG, atrial fibrillation on Eliquis, congestive heart failure, COPD, GERD, and prostate cancer who presented to the ED via EMS from the [place] after he had two episodes of dark emesis about 3 weeks ago. Patient reported coffee ground emesis. Patient denied abdominal pain or nausea prior to the vomiting episode. Patient denied changes in stool. Patient denies a history of ulcers. Patient states that he does take aspirin 325 mg daily and Eliquis at home. Patient denies NSAID usage. Patient denies current alcohol use. Patient states that he had an EGD several years ago but states that he does not remember the results. On arrival to the ED, patient's vitals were HR 83, RR 16, BP 122/53, Temperature 98.2, and SpO2 94% on 2 L. Patient's initial labs were notable for hemoglobin of 9.3. At the [place], patient's hemoglobin was 9.6. FOBT was negative. Gastroenterology was consulted in the ED. Patient was taken for upper endoscopy. Endoscopy showed no active bleed, but showed Kenton's ulcer and a large hiatal hernia. Symptoms also include:Heartburn Score: 1-mild symptoms (do not interfere)Gas Bloat Score: 1-mild symptoms (do not interfere)Dysphagia Score: 1-mild symptoms (occasionally to solids)Regurgitation Score: 1-mild symptoms (do not interfere)Nausea/Vomit ing Score: 0-no symptomsDiarrhea: 0-no symptoms Extra-esophageal Manifestations:Chronic sore throat or mouth: 0-no symptomsEar pain: 0-no symptomsSinusitis: 0-no symptomsHallitosis: 1-mild symptoms (do not interfere)Poor dentition: 1-mild symptoms (do not interfere) Reflux Symptom Index Evaluation (0-5):Hoarseness or problem with voice: 4Throat ClearinExcess throat mucus/post-nasal drip: 2Difficulty swallowing food, liquid, pills: 2Coughing after eating or lying down: 2Breathing difficulties or choking episodes: 2Troublesome or annoying cough: 2Globus sensation: 2Heartburn, chest pain, indigestion, or stomach acid coming up: 3 RSI Total Score: 23 GERD-HRQL Evaluation (0-5)Global heartburn severity: 3Supine heartburn: 2Upright heartburn: 1Post-parandial heartburn: 3Does heartburn require dietary modification? 4Does heartburn awaken from sleep? 4Difficulty swallowinPain with swallowinFeelings of gassiness or bloatinImpact of taking medication on daily life: 3 GERD-HRQL score: 27 Does this patient have a suspected or established diagnosis of Achalasia? NO Abnormal Burping or belching? NO (Normal) Most recently, She has been taking (Modifying Factor) pantoprazole 40 BID since his admission. In the past, patient has taken omeprazole 40 mg daily for GERD symptoms. The symptoms improve with adjusting diet, elevating head of the bed. Risk factors for GERD include large paraesophageal hernia, daily coffee 2 cups/day PMH: hypertension, hyperlipidemia, coronary artery disease s/p CABG, atrial fibrillation on Eliquis, congestive heart failure, COPD, GERD, and prostate cancer Abdominal PSH: CABG, open appendectomy, laparoscopic cholecystectomy Diagnostic tests include: 09/18/2024 UGIFINDINGS:Examinatio n is limited secondary to patients inability to stand for the exam and limited mobility.Exam was performed semiupright lying on the table. Single contrast exam was performed will focus on the huddle hernia. Esophageal motility appears grossly unremarkable.A moderate to large sliding type hiatal hernia is seen. The known gastric ulcer is not visualized on this exam. The stomach within the abdominal cavity appears unremarkable. No significant reflux is seen with coughing or Jamison salvage.Fluoro time: 1minutes 28secAir Kerma: 71.8mGyDAP: [id number]: Moderate to large sliding type hiatal hernia.Limited exam. 09/17/2024 EGD LawrinenkoIndications: 1. Coffee-ground emesis2. Normocytic anemia secondary to GI blood loss3. Anticoagulated on Eliquis4. History of GERD5. Previous EGD abdominal Findings:1. Examination of the entire length of the esophagus was performed. The proximal, mid and distal esophageal lumen appeared normal without evidence of diverticula, lesions, inflammatory changes, or varices.2. The GE junction was estimated at 37 cm from the incisors.3. A 15 mm x 3 mm linear nonbleeding clean-based ulcer found in the hiatal hernia sac perpendicular to the diaphragmatic sulcus consistent with Kenton lesion.Biopsies obtained using cold biopsy forceps and sent to pathology.4. A 10 cm hiatal hernia was identified.5. Retroflexion of the gastric cardia and fundus revealed no mass lesions or gastric varices.6. The Hill classification for the gastroesophageal flap valve (GEFV):Grade 3The fold is barely present, and the endoscope is not tightly gripped by the tissues.7. Mild to moderate erosive gastritis was identified in the gastric antrum. Multiple biopsies (cold) were obtained and sent to pathology.8. No resistance found at the pyloric opening with passage of the endoscope.9. The duodenal mucosa appeared normal. The endoscopic appearance of the duodenal bulb and the second portion of the duodenum appeared normal. The mucosa had a pale pink mucosa appearance with a smooth texture and exhibited slight folds. No significant duodenitis, ulcers, erythema, or mucosal irregularity was found.10. 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 Pathology: Negative for dysplasia, metaplasia or malignancy.Negative for H. pylori organisms. NORM SHEETS MD [address] [place], [address], [facility] [place] 10/27/2024 13:43:36 10/28/2024 text/html 69-year-old male patient with a past medical history significant for hypertension, heart disease status post CABG, COPD who presents for follow up. 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 He was last seen in office on 05/05/2024. Since I saw the patient last time, he had a CT chest done on October 28, 2024. Today the patient mentions his shortness of breath is at baseline. He remains short of breath and minimal exertion. Patient denies any cough, sputum production, fever, chills, rigors, night sweats, hemoptysis. Patient is on Albuterol inhaler/nebulizer, Wixela inhaler, and Spiriva. The patient quit smoking 2016. He smoked for at least 40 years about 1 to 5 packs/day. 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 Imaging: ---> LDCT chest ([facility]) on 11/18/2023:1. Chronic findings as notes 2. Pulmonary nodules as annotated 3. LUNGS-RADS 4ALUNG-RADS: 4A: Suspicious.3 months follow-up low-dose CTAddendum: Noted at the time of the reading, but not mentioned in the initial report is near total resolution of previously noted LLL infiltrate with some residual scarring Alison Solano MD [address], [place], [address], [facility] [place] 10/28/2024 15:46:01 11/24/2024 text/html 69-year-old male presents to clinic for colonoscopy consult. Patient previously underwent colonoscopy 03/24/2024 at [facility] in [place]. Colonoscopy revealed a large ascending colon polyp. Due to the patient experiencing coughing fits during the procedure the polyp was not able to be removed. Colonoscopy was also incomplete and the cecum was not visualized. Patient is here today to complete colonoscopy for reevaluation of colon polyps with polyp removal. Patient denies any GI complaints today.Patient has a past medical history of A-fib, CHF, coronary artery disease status post cardiac stent placement, hypertension, hyperlipidemia, COPD, diabetes mellitus and prostate cancer. He is anticoagulated with Eliquis. Previous surgeries include CABG 2019, cholecystectomy, appendectomy, cataract surgery and left total knee replacement. He reports a family history of colon cancer in his brother. Patient is a former smoker. Patient is a nondrinker.Impression: 1. History of incomplete colonoscopy 03/24/2024 at [facility] in [place], large ascending polyp identified without removal due to patient having coughing spells during procedure and increased abdominal tension2. History of multiple colon polyps3. Family history of colon cancer in brother4. Other medical issues: A-fib, CHF, CAD status post stent placement, hypertension, hyperlipidemia, COPD, diabetes mellitus, prostate cancer5. Anticoagulant therapy with EliquisRecommendation: 1. Schedule colonoscopy for further evaluation of colon polyps and history of incomplete colonoscopy . Follow-up in GI clinic 2 weeks post endoscopic procedure SHARON LAKHAIN [address], [place], [address], [facility] [place] 11/24/2024 11:56:48 12/15/2024 text/html 69-year-old male presents to clinic for follow-up to discuss colonoscopy results. Patient was previously evaluated for history of incomplete colonoscopy and colon polyps. Patient denies any GI complaints today.Patient has a past medical history of A-fib, CHF, coronary artery disease status post cardiac stent placement, hypertension, hyperlipidemia, COPD, diabetes mellitus and prostate cancer. He is anticoagulated with Eliquis. Previous surgeries include CABG 2019, cholecystectomy, appendectomy, cataract surgery and left total knee replacement. He reports a family history of colon cancer in his brother. Patient is a former smoker. Patient is a nondrinker. Colonoscopy 12/01/2024: Moderate internal hemorrhoids. Moderate diverticulosis of the sigmoid colon with luminal narrowing and muscular hypertrophy at the sigmoid colon. 22 mm flat transverse colon polyp removed completely by piecemeal excision. 3 endoclips were applied to the polypectomy site due to mild oozing of blood. 10 mm sessile right colon polyp removed completely. Otherwise normal exam to the cecum.Pathology: Right polypectomy revealed tubular adenoma without dysplasia. Transverse polypectomy revealed tubular adenoma without dysplasiaImpression:1. Adenomatous colon polyps2. No family history of colon cancer3. Other medical issues: A-fib, CHF, CAD status post stent placement, hypertension, hyperlipidemia, COPD, diabetes mellitus, prostate cancer4. Anticoagulant therapy with EliquisRecommendation: 1. Repeat colonoscopy in 1 year2. Follow-up as needed SHARON LAKHANI [address], [place], [address], [facility]14 [place] 12/15/2024 10:58:40
--- OUTSIDE RECORDS SUMMARY | 2025-04-01 14:24 | XMS_ITS | Patient Health Record ---
Author Organization [facility] Address [address] [place] [address] Care Team Providers Care Nip Wrapper Name Role Phone Aryan Taylor Unavailable [phone] Sameera Patel Unavailable Allergies No Known Allergies Results Component Value Reference Range Notes U[place] Without [place], [place] - [id number] Reviewed date:07/07/2024 02:24:04 PM Interpretation: Performing Lab: Notes/Report: Glucose 2+ Bili 1+ Ketones 0 Sp [place] 1.020 Blood 0 pH 6.0 Protein +- Urobili +- Nitrites 0 Leukocytes 0 Reason For Referral No Information Medications Medication SIG (Take, Route, Frequency, Duration) Notes Start Date End Date Status 2 ML digoxin 0.25 MG/ML Injection *Reorder from [facility] for eRx and Interaction Alerts* 01/30/2023 Active albuterol 0.417 MG/ML Inhalation Solution INTRAPULMONARY *Reorder from [facility] for eRx and Interaction Alerts* 01/30/2023 Active Loratadine 10 MG Oral Tablet ORAL *Reorder from [facility] for eRx and Interaction Alerts* 01/30/2023 Active Atorvastatin Calcium 10 MG Tablet Oral 01/30/2023 Active predniSONE 5 MG Oral Tablet ORAL *Reorder from [facility] for eRx and Interaction Alerts* 01/30/2023 Active 60 ACTUAT olodaterol 0.0025 MG/ACTUAT Inhalation [place] [Striverdi] INTRAPULMONARY *Reorder from [facility] for eRx and Interaction Alerts* 01/30/2023 Active aspirin 325 MG Delayed Release Oral Tablet ORAL *Reorder from [facility] for eRx and Interaction Alerts* 01/30/2023 Active Potassium Chloride 20 MEQ Powder for Oral Solution ORAL *Reorder from [facility] for eRx and Interaction Alerts* 01/30/2023 Active apixaban 5 MG Oral Tablet [Eliquis] ORAL *Reorder from [facility] for eRx and Interaction Alerts* 01/30/2023 Active Omeprazole Magnesium 20 MG Tablet Delayed Release Oral 01/30/2023 Active Nitroglycerin 0.4 MG Tablet Sublingual Sublingual 01/30/2023 Active Furosemide 40 MG Oral Tablet ORAL *Reorder from [facility] for eRx and Interaction Alerts* 01/30/2023 Active Abiraterone Acetate 250 MG Oral Tablet ORAL *Reorder from [facility] for eRx and Interaction Alerts* 01/30/2023 Active Docusate Sodium 100 MG Oral Tablet ORAL *Reorder from [facility] for eRx and Interaction Alerts* 01/30/2023 Active Calcium Citrate 1500 MG / Cholecalciferol 200 UNT Oral Tablet ORAL *Reorder from [facility] for eRx and Interaction Alerts* 09/24/2023 Active 60 ACTUAT tiotropium 0.0025 MG/ACTUAT Inhalation [place] [Spiriva] INTRAPULMONARY *Reorder from [facility] for eRx and Interaction Alerts* 01/30/2023 Active albuterol 0.833 MG/ML / ipratropium bromide 0.167 MG/ML Inhalation Solution INTRAPULMONARY *Reorder from [facility] for eRx and Interaction Alerts* 01/30/2023 Active Metoprolol Tartrate 75 MG Oral Tablet ORAL *Reorder from [facility] for eRx and Interaction Alerts* 01/30/2023 Active LORazepam 1 MG Oral Tablet ORAL *Reorder from [facility] for eRx and Interaction Alerts* 01/30/2023 Active [...] Problem Status W/U Status Risk Notes Problem MCC (current) use of other agents affecting estrogen receptors and estrogen levels (Z79.818) Active confirmed Problem History of malignant neoplasm of prostate (745090586) Personal history of malignant neoplasm of prostate (Z85.46) Active confirmed Problem Urinary retention (292303056) Urinary retention (R33.9) Active confirmed Problem Bladder neck obstruction (730452556) Bladder neck obstruction (N32.0) Active confirmed Vital Signs Heart Rate 78 /min 07/07/2024 Temperature 98.68 degrees Fahrenheit 07/07/2024 Height-cm 177.80 cm 07/07/2024 Blood pressure diastolic 64 mm Hg 07/07/2024 Weight-kg 99.79 kg 07/07/2024 Height 70.00 in 07/07/2024 Blood pressure systolic 110 mm Hg 07/07/2024 Weight 220.0 lbs 07/07/2024 BMI 31.56 kg/m2 07/07/2024 Encounters Encounter Location Date Provider Diagnosis [facility] [address] [place] [address] 07/07/2024 Sameera Patel Personal history of malignant neoplasm of prostate Z85.46 ; MCC (current) use of other agents affecting estrogen receptors and estrogen levels Z79.818 ; Urinary retention R33.9 ; Urinary urgency R39.15 and Frequency of micturition R35.0 [facility] [address] [place] [address] [place] [address] 06/16/2024 Aryan Taylor MCC (current) use of other agents affecting estrogen receptors and estrogen levels Z79.818 and Personal history of malignant neoplasm of prostate Z85.46 [facility] [address] [place] [address] [place] [address] 05/19/2024 Aryan Taylor [facility] [address] [place] [address] [place] [address] 10/02/2024 Aryan Taylor [facility] [address] [place] [address] [place] [address] 07/07/2024 Aryan Taylor MCC (current) use of other agents affecting estrogen receptors and estrogen levels Z79.818 and Personal history of malignant neoplasm of prostate Z85.46 [facility] [place] [address] 07/06/2024 Aryan Taylor Assessments Encounter Date Diagnosis (ICD Code) Assessment Notes Treatment Notes Treatment Clinical Notes Section Notes 06/16/2024 MCC (current) use of other agents affecting estrogen receptors and estrogen levels (ICD-10 - Z79.818) 07/07/2024 continuous churn buttermaker (current) use of other agents affecting estrogen [...] checked when advised to do so 07/07/2024 MCC (current) use of other agents affecting [...] Name Order Date Basic Metabolic Panel (BMP) 84694 2023 Basic Metabolic Panel (BMP) 13908 2024 PSA Diagnostic--[id number] 07/07/2024 Bone Densitometry-85498 07/07/2024 Bone Densitometry-31007 06/16/2024 Bone Densitometry-21058 03/16/2024 Insurance Providers Payer Name Payer Address Payer Phone Subscriber Number Group Number Insured Name Patient Relationship to Insured Coverage Start Date Coverage End Date [employer] [address] [place] [phone] [id number] [place] Self - patient is the insured Medical (General) History Hospitalization History Reason Date(Month/Year) sars/rsv/pneumonia
--- OUTSIDE RECORDS SUMMARY | 2025-04-01 14:24 | XMS_ITS | Clinical Summary ---
Author Organization Madeleine Jarrett Address [address] [address] Phone Care Team Providers Care Dev Manager Name Role Phone Unavailable Primary Care Provider [...] Type Department Care Team Description 03/04/2025 Telephone [facility] [address] [phone] Kaden Mayer MD Appointment Notification 03/04/2025 Telephone [facility] [address] [phone] Kaden Mayer MD Follow Up 03/03/2025 3:45 PM CDT Office Visit [facility] [address] [phone] Kaden Mayer MD Encounter for pre-operative examination (Primary Dx) 03/03/2025 2:30 PM CDT Ancillary Procedure [facility]- [address] [phone] Kaden Mayer MD PAD (peripheral artery disease) 03/03/2025 Orders Only [facility] [address] [phone] Tiara Sutton RN 03/02/2025 11:10 AM CDT Office Visit [facility] Ophthalmology [place] [address] [phone] Hannah Powell MD 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); Fuchs' corneal dystrophy of right eye; Pseudophakia of both eyes 01/21/2025 Telephone [facility] Ophthalmology [place] [address] [phone] Hannah Powell MD Information 01/18/2025 2:57 PM CDT Anesthesia Event [facility] Operating Room [address] [place] [phone] Ronnie Camejo DO 01/18/2025 1:12 PM CDT - 01/18/2025 2:33 PM CDT Surgery [facility] Operating Room [address] [place] [phone] Kaden Mayer MD FEMORAL ANGIOGRAPHY WITH INTERVENTION 01/18/2025 10:50 AM CDT - 01/19/2025 12:40 PM CDT Hospital Encounter [facility] 3A Surgical [address] [place] [phone] Kaden Maeyr MD Peripheral vascular disease, unspecified Discharge Disposition: Home or Self Care 01/18/2025 6:52 AM CDT - 01/18/2025 11:59 PM CDT Hospital Encounter [facility] Interventional Radiology OR [address] [phone] Kaden Mayer MD Discharge Disposition: Home or Self Care 01/12/2025 External Device Data STL ABSTRACTION Provider, Abstract 01/12/2025 External Device Data STL ABSTRACTION Provider, Abstract 01/11/[address] [phone] Kaden Mayer MD Follow Up 01/06/2025 2:45 PM CDT - 01/06/2025 11:59 PM CDT Hospital Encounter [facility] Pre Admission Testing [address] [phone] Kaden Mayer MD Discharge Disposition: Home or Self Care 01/06/2025 1:00 PM CDT Office Visit [facility] [address] [phone] Kaden Mayer MD PAD (peripheral artery disease) (Primary Dx); Encounter for preadmission testing 01/06/2025 Telephone [facility] Vascular [address] [phone] Kaden Mayer MD Surgery Talk 01/04/2025 Telephone [facility] [place] [phone] [facility] [address] [place] [phone] Kaden Mayer MD Appointment Verification from Last 3 Months Immunizations Immunization Administration Dates Next Due (ADACEL/BOOSTRIX)(10 YR UP) TDAP VACCINE, 0.5ML, IM 11/07/2010 (JOSÉ MIGUEL) COVID-19 VACCINE - EMERGENCY USE AUTHORIZATION, AD26,COV2S(PF) 0.5 ML IM SUSP 04/07/2021 (PNEUMOVAX 23)(50 YRS UP) PN EUMOCOCCAL POLYSACCHARIDE (PPV23) 0.5 ML, IM 03/17/2019,03/22/2018,01/20/2018 (PREVNAR 20)(6 WKS UP) PNEUM OCOCCAL CONJUGATE VACCINE 20-VALENT (PCV20), POLYSACCHARIDE SSM359 CONJUGATE, ADJUVANT 0.5 ML (PF) IM 02/06/2022 [...] VACCINE (60+ or ) (1 - Risk 50-74 years 1-dose series) 2004 Abdominal Aortic Aneurysm (A AA) Screening 08/23/2019 [...] history exists Medical Devices Implanted Type Area Lead Pharmacy Technician Device Identifier Shelf Expiration Date Model / Serial / Lot Dev Closure Angioseal 6fr Vip [id number] - [id number] Implanted:Qty : 1 on 01/18/2025 by Kaden Mayer MD at [facility] Closure Device Right: Groin TERUMO- CARDIOVASC SYS [id number] 09/21/2025 [id number] / / [id number] Stent Vasc Innova [id number] 30 - [id number] Implanted:Qty : 1 on 01/18/2025 by Kaden Mayer MD at [facility] Stent Left: Superficial Femoral Artery [employer] [id number] 08/05/2029 [id number] / / [id number] Procedures Procedure Name Priority Date/Time Associated [...] 3:08 PM CDT Encounter for preadmission testing from Last 3 Months Results * US DUPLEX ARTERIAL LEG LEFT (03/03/2025 3:51 PM CDT) Anatomical Region Laterality Modality Lower Extremity Ultrasound 03/03/2025 3:05 PM CDT Narrative 03/04/2025 2:48 PM CDT [facility] [address] [place] [address] Noninvasive Vascular Lab Limited Lower Extremity Arterial Duplex Study Patient: Gabino Jones Study ID: US DUPLEX ARTERI Gender: M : 1955 Age: 69 Room: Height: 162.6cm Weight: 92kg BSA: 2.08m^2 Pt status: Outpatient Study Date: 03/03/2025 Study Time: 03:05:58 PM BSA: 2.08m^2 Ordering: Kaden Mayer Interpreting:Kaden Mayer Global Position System Technician: CDP Indications: V. History: Risk factors: Prior [...] - Max brachial pressure (sys): 164mm Hg [facility] is accredited with the Intersocietal Commission for the Accreditation of Vascular Laboratories (ICAVL) Prepared and Electronically Authenticated Kaden Mayer Confirmed 03/04/2025 14:48 Procedure Note Kaden Mayer MD - 03/04/2025 [facility] [address] [place] [address] Noninvasive Vascular Lab Limited Lower Extremity Arterial Duplex Study Patient: Gabino Jones Study ID: US DUPLEX ARTERI Gender: M : 1955 Age: 69 Room: Height: 162.6cm Weight: 92kg BSA: 2.08m^2 Pt status: Outpatient Study Date: 03/03/2025 Study Time: 03:05:58 PM BSA: 2.08m^2 Ordering: Kaden Mayer Interpreting:Kaden Mayer Global Position System Technician: CDP Indications: V. History: Risk factors: Prior [...] - Max brachial pressure (sys): 164mm Hg [facility] is accredited withthe [facility] Commission for the Accreditation of Vascular Laboratories (ICAVL) Prepared and Electronically Authenticated Kaden Mayer Confirmed 03/04/2025 14:48 Kaden Mayer MD US ORDERABLES Final Result * OCT, RETINA - OU - BOTH EYES (03/02/2025 12:39 PM CDT) Narrative [facility] OPHTHALMOLOGY ORDERS - 03/02/2025 1:14 PM CDT Optical Coherence Tomography ordered to evaluate the status of the macula: RIGHT EYE: Focal outer retinal loss. EZ/IZ disruption. Retinal thinning. Focal RPE irregularity. LEFT EYE: There is no intraretinal fluid or Subretinal fluid. A trace Epiretinal membrane is present Hannah Powell MD OPHTH TOMOGRAPHY Final Result [facility] OPHTHALMOLOGY ORDERS * TELEMETRY REPORT (01/20/2025 2:08 AM CDT) Provider Scanning ECG ORDERABLES Final Result * (ABNORMAL) CBC WITH DIFFERENTIAL (01/19/2025 5:46 AM CDT) Only the most recent of2 resultswithin the time period is included. WBC 3.7(L) 4.8 - 10.8 K/uL 01/19/2025 6:14 AM CDT [facility] RBC 4.58(L) 4.60 - 6.20 M/uL 01/19/2025 6:14 AM CDT [facility] HEMOGLOBIN 12.5(L) 14.0 - 18.0 g/dL 01/19/2025 6:14 AM CDT [facility] HEMATOCRIT 39.0(L) 41.0 - 53.0 % 01/19/2025 6:14 AM [facility] [employer] [facility] MCV 85.2 84.0 - 103.0 fL 01/19/2025 6:14 AM [facility] MCH 27.3 27.0 - 34.0 pg 01/19/2025 6:14 AM [facility] MCHC 32.1 30.0 - 35.0 g/dL 01/19/2025 6:14 AM [facility] PLATELETS 133(L) 140 - 440 K/uL 01/19/2025 6:14 AM [facility] [employer] [facility] MPV 9.7 8.9 - 12.8 fL 01/19/2025 6:14 AM [facility] RDW 17.5(H) 11.0 - 14.5 % 01/19/2025 6:14 AM [facility] RDW-STDEV 54.1(H) 37.0 - 54.0 fL 01/19/2025 6:14 AM [facility] [employer] [facility] NEUTROPHILS 69 42 - 75 % 01/19/2025 6:14 AM [facility] LYMPHOCYTES 17(L) 24 - 44 % 01/19/2025 6:14 AM [facility] MONOCYTES 12(H) 2 - 10 % 01/19/2025 6:14 AM [facility] [employer] [facility] EOSINOPHILS 2 0 - 7 % 01/19/2025 6:14 AM [facility] [employer] [facility] BASOPHILS 1 0 - 1 % 01/19/2025 6:14 AM [facility] IMMATURE GRANULOCYTES 0 0 - 2 % 01/19/2025 6:14 AM [facility] NEUTROPHIL ABSOLUTE 2.58 2.00 - 8.00 K/uL 01/19/2025 6:14 AM [facility] LYMPHOCYTE ABSOLUTE 0.63(L) 1.20 - 4.00 K/uL 01/19/2025 6:14 AM [facility] MONOCYTE ABSOLUTE 0.43 0.10 - 0.60 K/uL 01/19/2025 6:14 AM CDT [facility] EOSINOPHIL ABSOLUTE 0.06 0.00 - 0.70 K/uL 01/19/2025 6:14 AM CDT [facility] BASOPHILS ABSOLUTE 0.03 0.00 - 0.20 K/uL 01/19/2025 6:14 AM CDT [facility] IMMATURE GRANULOCYTES ABSOLUTE 0.01 0.00 - 0.10 K/uL 01/19/2025 6:14 AM CDT [facility] SMEAR REVIEWED: NA - Not Applicable 01/19/2025 6:14 AM CDT [facility] Blood Venipuncture / Unknown 01/19/2025 5:46 AM CDT 01/19/2025 6:08 AM CDT Kaden Mayer MD HEMATOLOGY ORDERABLES Final Re sult Performing Organization Address City/[facility]/ZIP Co de Phone Number [facility] CLIA # [id number] [address] [phone] * (ABNORMAL) POC GLUCOSE (01/18/2025 3:58 PM CDT) Only the most recent of2 resultswithin the time period is included. GLUCOSE POC 108(H) 74 - 99 mg/dL 01/18/2025 3:58 PM CDT [facility] SPECIMEN SOURCE, GLUCOSE POC Capillary 01/18/2025 3:58 PM CDT [facility] Blood, whole 01/18/2025 3:58 PM CDT 01/18/2025 4:05 PM CDT us Kaden Mayer MD POINT OF CARE TESTING Final Re sult Performing Organization Address [facility]/ZIP Co de Phone Number [facility] CLIA # [id number] [address] [phone] * IR FLUORO OR OTHER (01/18/2025 3:52 PM CDT) Narrative 01/18/2025 3:52 PM CDT Order Auto Finalized. Please see associated Operative Report/Progress Note/Procedure Note from the same date. us Kaden Mayer MD IR ORDERABLES Final Result * (ABNORMAL) POC ACTIVATED CLOTTING TIME (01/18/2025 3:30 PM CDT) [facility] ACTIVATED CLOTTING TIME POC 285(H) 116 - 140 sec 01/18/2025 3:30 PM CDT [facility] Blood 01/18/2025 3:30 PM CDT 01/19/2025 6:51 PM CDT us Kaden Mayer MD POINT OF CARE TESTING Final Re sult Performing Organization Address [facility] Co de Phone Number [facility] [employer] [facility] CLIA # [id number] [address] [facility] [place] [address] * VERIFICATION BLOOD GROUP (01/06/2025 3:35 PM CDT) [facility] ABO GROUP A 01/06/2025 6:11 PM CDT [facility] RH (D) TYPE Positive 01/06/2025 6:11 PM CDT [facility] [place] Blood Venipuncture / Unknown 01/06/2025 3:35 PM CDT 01/06/2025 5:14 PM CDT us Kaden Mayer MD BLOOD BANK ORDERABLES Final Re sult Performing Organization Address City/[facility]/ZIP Co de Phone Number [facility] [employer] [facility] CLIA#[id number] [address] [place] [address], * RED BLOOD CELL ANTIGEN TYPE (01/06/2025 3:15 PM CDT) Pathologist [facility] JKA RED BLOOD CELL ANTIGEN Negative 01/06/2025 11:36 PM CDT [facility] E RED BLOOD CELL ANTIGEN Negative 01/06/2025 11:36 PM CDT [facility] LITTLE C RED BLOOD CELL ANTIGEN Negative 01/06/2025 11:36 PM CDT [facility] Blood Venipuncture / Unknown 01/06/2025 3:15 PM CDT 01/06/2025 5:14 PM CDT us Kaden Mayer MD BLOOD BANK ORDERABLES Edited R esult - Final Performing Organization Address City/[facility] Co de Phone Number [facility] CLIA#[id number] [address] [place] [address], * BLOOD BANK AB IDENT (01/06/2025 3:15 PM CDT) [facility] ANTIBODY #1 Anti-[place]ka 01/06/2025 11:45 PM CDT [facility] ANTIBODY #2 Anti-c 01/06/2025 11:45 PM CDT [facility] Blood Venipuncture / Unknown 01/06/2025 3:15 PM CDT 01/06/2025 5:14 PM CDT us Kaden Mayer MD BLOOD BANK ORDERABLES Final Re sult Performing Organization Address [facility] Co de Phone Number [facility] [employer] [facility] CLIA#[id number] [address] [place] [address], * (ABNORMAL) PROTIME-INR (01/06/2025 3:15 PM CDT) Pathologist [facility] PROTIME 15.1(H) 12.7 - 14.9 Seconds 01/06/2025 5:39 PM CDT [facility] [place] INR 1.1 0.8 - 1.2 01/06/2025 5:39 PM CDT [facility] Blood Venipuncture / Unknown 01/06/2025 3:15 PM CDT 01/06/2025 5:21 PM CDT Narrative [facility] - 01/06/2025 5:39 PM CDT Expected Values for INR: DVT/PE Goal INR 2.5; range 2.0 - 3.0 Valve Replacement Tissue Goal INR 2.5; range 2.0 - 3.0 Valve Replacement Mechanical Goal INR 3.0; range 2.5 - 3.5 POST-MN Goal INR 2.5; range 2.0 - 3.0 or Goal INR 3.0; range 2.5 - 3.5 Atrial Fibrillation Goal INR 2.5; range 2.0 - 3.0 Ischemic Stroke Goal INR 2.5; range 2.0 - 3.0 Kaden Mayer MD HEMATOLOGY ORDERABLES Final Re sult Performing Organization Address City/[facility]/ZIP Co de Phone Number [facility] [employer] [facility] CLIA # [id number] [address] [place] [address] * TYPE AND SCREEN (01/06/2025 3:15 PM CDT) ABO GROUP A 01/06/2025 11:44 PM CDT [facility] [place] RH (D) TYPE Positive 01/06/2025 11:44 PM CDT [facility] ANTIBODY SCREEN Positive 01/06/2025 11:44 PM CDT [facility] Blood Venipuncture / Unknown 01/06/2025 3:15 PM CDT 01/06/2025 5:14 PM CDT us Kaden Mayer MD BLOOD BANK ORDERABLES Edited R esult - Final [facility] CLIA#[id number] [address] [phone] * (ABNORMAL) BASIC METABOLIC PANEL (01/06/2025 3:15 PM CDT) SODIUM 142 136 - 145 mmol/L 01/06/2025 5:41 PM CDT [facility] POTASSIUM 4.1 3.5 - 5.1 mmol/L 01/06/2025 5:41 PM CDT [facility] CHLORIDE 106 98 - 107 mmol/L 01/06/2025 5:41 PM CDT [facility] CO2 23 22 - 29 mmol/L 01/06/2025 5:41 PM CDT [facility] CALCIUM 8.9 8.8 - 10.2 mg/dL 01/06/2025 5:41 PM CDT [facility] BUN 15 8 - 23 mg/dL 01/06/2025 5:41 PM CDT [facility] CREATININE 1.04 0.67 - 1.17 mg/dL 01/06/2025 5:41 PM CDT [facility] Comment:The GFR result is no t clinically significant on patients <18 or >70 years of age. GLUCOSE 135(H) 74 - 99 mg/dL 01/06/2025 5:41 PM T [facility] GFR >60 mL/min/1.7 3 sq meter 01/06/2025 5:41 PM T [facility] Comment:eGFR calculated with 2020 CKD-EPI equation. Vegetarian diet, extremely high or low muscle mass, and may affect results. Cystatin C with Glomerular Filtration Rate is a suitable alternative for these patients. ANION GAP 13 9 - 20 mmol/L 01/06/2025 5:41 PM T [facility] Blood Venipuncture / Unknown 01/06/2025 3:15 PM CDT 01/06/2025 5:21 PM CDT us Kaden Mayer MD CHEMISTRY ORDERABLES Final Res ult [facility] CLIA # [id number] [address] [facility] [place] [id number] * EKG 12-LEAD (01/06/2025 3:08 PM CDT) 01/06/2025 3:08 PM CDT Narrative INTERFACE SYSTEM - 01/06/2025 8:[address] PM [address] [address] Test Date: 2025-01-06 Pat Name: GABINO JONES Department: 12 Room: Gender: Male Director [place] [employer]: LIN : 1955 Requested By: Order Number: [id number] Reading MD: Karla Francis Measurements Intervals [place] Rate: 91 P: 0 IL: 0 QRS: 35 QRSD: 126 T: 54 QT: 384 QTc: 472 Interpretive Statements Atrial fibrillation Right bundle branch block Possible Inferior infarct, age undetermined Abnormal ECG Electronically Signed On 01-06-2025 20:21:31 CDT by Karla Francis Procedure Note Karla Francis, - 01/06/[address] [address] Test Date: 2025-01-06 Pat Name: GABINO JONES Department: 12 Room: Gender: Male Director [place] [employer]: LIN : 1955 Requested By: Order Number: [id number] Reading : Karla Francis Measurements Intervals [place] Rate: 91 P: 0 IL: 0 QRS: 35 QRSD: 126 T: 54 QT: 384 QTc: 472 Interpretive Statements Atrial fibrillation Right bundle branch block Possible Inferior infarct, age undetermined Abnormal ECG Electronically Signed On 01-06-2025 20:21:31 CDT by Karla Francis us Kaden Mayer MD ECG ORDERABLES Final Result INTERFACE SYSTEM Refer to clinic/hospital department from Last 3 Months Insurance MEDICARE PART A HOSPITAL ONLY [employer] HMO [place] [address] [address] [facility] [place] [address] [place] [address] * Guarantor: [facility] (C) Account Type Relation to Patient Date of Phone Billing Address Corporate Other DEFAULT ADDRESS [address] [employer] Advance Directives For more information, please contact: [phone] * Full Code (Latest Code Status on File) Date Activated Date Inactivated Comments 09/05/2022 11:49 PM 09/07/2022 1:06 PM
--- NOTE | 2025-04-01 14:27 | W.ED.SOB ---
HPI - SOB/Dyspnea General: Chief Complaint: Shortness of Breath/Dyspnea Stated Complaint: SOB History of Present Illness: HPI Narrative: 69-year-old man with a history of congestive heart failure, peripheral vascular disease, atrial fibrillation, chronic anticoagulation on Eliquis, hypertension, leukopenia, hyperlipidemia, COPD, chronic hypoxemic respiratory failure on 3 L nasal cannula at all times, coronary artery disease, anemia, and prostate cancer who presents emergency room with worsening shortness of breath, cough and right-sided pleuritic chest pain. Related Data Home Medications ?Medication ?Instructions ?Recorded ?Confirmed furosemide 40 mg tablet (Lasix) 40 mg PO QAM 03/28/21 03/23/25 potassium chloride 20 mEq 20 meq PO QAM 03/28/21 03/23/25 tablet,extended release tamsulosin 0.4 mg capsule (Flomax) 0.4 mg PO BID 02/25/23 03/23/25 loratadine 10 mg tablet 10 mg PO QAM 05/15/23 03/23/25 digoxin 250 mcg (0.25 mg) tablet 250 mcg PO QAM 08/04/23 03/23/25 nitroglycerin 0.4 mg sublingual 0.4 mg sublingual Q5M PRN Chest 08/04/23 03/23/25 tablet (Nitrostat) Pain levothyroxine 125 mcg tablet 125 mcg PO QAM 07/09/24 03/23/25 albuterol sulfate 2.5 mg/3 mL 2.5 mg inhalation Q6H PRN 01/28/25 03/23/25 (0.083 %) solution for nebulization Shortness Of Breath aspirin 81 mg tablet,delayed 81 mg PO DAILY 01/28/25 03/23/25 release atorvastatin 20 mg tablet 10 mg PO BEDTIME 01/28/25 03/23/25 cholecalciferol (vitamin D3) 50 50 mcg PO DAILY 01/28/25 03/23/25 mcg (2,000 unit) tablet (Vitamin D3) clopidogrel 75 mg tablet 75 mg PO DAILY 01/28/25 03/23/25 gabapentin 100 mg capsule 200 mg PO TID 01/28/25 03/23/25 metoprolol tartrate 25 mg tablet 37.5 mg PO BID 01/28/25 03/23/25 sennosides 8.6 mg-docusate sodium 1 tab PO DAILY 01/28/25 03/23/25 50 mg tablet sertraline 100 mg tablet 100 mg PO QPM 01/28/25 03/23/25 calcium carbonate 500 mg PO BID 03/09/25 03/23/25 cyanocobalamin (vitamin B-12) 100 100 mcg PO DAILY 03/09/25 03/23/25 mcg tablet (Vitamin B-12) empagliflozin 25 mg tablet 12.5 mg PO DAILY 03/09/25 03/23/25 (Jardiance) pantoprazole 40 mg tablet,delayed 40 mg PO BID 03/09/25 03/23/25 release Previous Rx's ?Medication ?Instructions ?Recorded apixaban 5 mg tablet (Eliquis) 5 mg PO BID #60 tabs 10/16/19 albuterol sulfate 90 mcg/actuation 2 inh inhalation Q4H PRN shortness 07/27/22 aerosol inhaler of breath or wheezing #18 grams blood-glucose meter (Blood Glucose #1 ea 05/13/24 Monitoring kit) lancets #100 ea 05/13/24 pen needle, diabetic 32 gauge x #50 ea 05/13/24 1/ (BD Ultra-Fine Micro Pen Needle) diclofenac sodium 1 % topical gel 4 g topical QID PRN joint pain 08/24/24 #100 grams insulin glargine 100 unit/mL (3 10 unit (0.1 mL) SUBCUT DAILY #15 09/14/24 mL) subcutaneous pen (Lantus mL Solostar U-100 Insulin) folic acid 1 mg tablet 1 mg PO DAILY #30 tabs 12/11/24 prednisone 10 mg tablet See Taper PO DIRECTED #42 tabs 03/17/25 tiotropium 2.5 mcg-olodaterol 2.5 2 puff inhalation DAILY 6 months 03/23/25 mcg/actuation mist for inhalation #4 grams (Stiolto Respimat) Allergies Allergy/AdvReac Type Severity Reaction Status Date / Time No Known Allergies Allergy Verified 03/23/25 10:38 Review of Systems Narrative: Constitutional symptoms: Negative except as documented in HPI. Skin symptoms: Negative except as documented in HPI. Eye symptoms: Negative except as documented in HPI. ENMT symptoms: Negative except as documented in HPI. Respiratory symptoms: Negative except as documented in HPI. Cardiovascular symptoms: Negative except as documented in HPI. Gastrointestinal symptoms: Negative except as documented in HPI. Genitourinary symptoms: Negative except as documented in HPI. Musculoskeletal symptoms: Negative except as documented in HPI. Neurologic symptoms: Negative except as documented in HPI. Psychiatric symptoms: Negative except as documented in HPI. Endocrine symptoms: Negative except as documented in HPI. PFSH ED PFSH: Medical History (Updated 04/01/25 @ 15:49 by America Perez MD) History of ESBL E. coli infection Low back pain radiating to lower extremity Greater trochanteric bursitis of left hip Decompensated heart failure Peripheral artery occlusion Port-A-Cath in place 12/02/23 Dr Roberts Greater trochanteric bursitis of right hip Prostate cancer History of colon polyps Chronic anticoagulation eliquis, for afib Chronic respiratory failure with hypoxia Heart failure with preserved ejection fraction Coronary artery disease CHF (congestive heart failure) Last echocardiogram normal EF, grade 2/4 diastolic dysfunction October 2019 Hypertension Anemia Atrial fibrillation GERD (gastroesophageal reflux disease) Hypothyroidism Hyperlipidemia COPD (chronic obstructive pulmonary disease) Surgical History History of cataract surgery Left eye - 12/2022 H/O prostate biopsy S/P appendectomy S/P cholecystectomy History of colonoscopy (~04/2020) History of vasectomy History of knee surgery History of coronary artery bypass graft (03/2019) [address] [place] [address] Family History Father , IN HIS 50'S Lung disease tuberculosis Mother , AT AGE 63 CAD (coronary artery disease) Diabetes Hypertension Sister Cancer Denies family history of Clotting disorder Dementia Hyperlipidemia Psychiatric illness Chronic kidney disease (CKD) Suicide Anesthesia complication Bleeding disorder Stroke Social History Smoking and tobacco/nicotine status: former use of tobacco/nicotine (5 ppd X 52, Quit on 05-12-2017) Quit status (tobacco/nicotine): has quit using Year quit tobacco: 2017 - 4 PPD x 52 Years Alcohol intake: never Substance/Drug Use: never Lives independently: Yes Household members: none Marital status: Legally Current occupational status: employed and retired Do you think of yourself as: Straight/Heterosexual Current gender identity: Male Physical Exam Narrative: EXAM NARRATIVE: General: Alert, no acute distress. Skin: Warm, dry. Head: Normocephalic, atraumatic. Neck: Supple, trachea midline. Eye: Extraocular movements are intact. Ears, nose, mouth and throat: Oral mucosa moist. Cardiovascular: Regular rate and rhythm, Normal peripheral perfusion. 1-2+ tibial edema Respiratory: coarse, scattered wheeze, mild increased wob. tachypnea, breath sounds are equal, Symmetrical chest wall expansion. Gastrointestinal: Soft, Nontender, Non distended Musculoskeletal: Normal ROM, no deformity. Neurological: Alert and oriented, No focal neurological deficit observed. Psychiatric: Cooperative, appropriate mood & affect. Course Vital Signs: Vital signs: Vital Signs Temperature 97.9 F 04/01/25 14:25 Pulse Rate 85 04/01/25 14:25 Respiratory Rate 18 04/01/25 14:25 Blood Pressure 106/60 04/01/25 14:25 Pulse Oximetry 95 04/01/25 14:25 Oxygen Delivery Me thod Nasal Cannula 04/01/25 14:25 Oxygen Flow Rate 3 04/01/25 14:25 MDM - SOB/Dyspnea Medical Decision Making Medical decision making: Patient's reason for coming to the emergency room: Shortness of breath and right-sided pleuritic chest pain Social determinants: Patient is retired. He has been having some issues with his concentrator. Apparently it was taken back. As of such he has been rationing his oxygen at only 1.5 L. I reviewed the patient's medical record. 69-year-old man with a history of congestive heart failure, peripheral vascular disease, atrial fibrillation, chronic anticoagulation on Eliquis, hypertension, leukopenia, hyperlipidemia, COPD, pulmonary fibrosis, chronic hypoxemic respiratory failure on 3 L nasal cannula at all times, coronary artery disease, anemia, and prostate cancer. I also reviewed patient's discharge summary from May 17. He had been admitted for 2 days for pneumonia. He also had follow-up with pulmonology on 03/23. About 9 days ago. Patient had sputum culture with ESBL E. coli. He was treated with ertapenem at that time. I reviewed the patient's current home meds Patient is on Eliquis at home. Digoxin. Multiple high risk meds. Alternate historians: None Differential diagnosis for patient with shortness of breath includes but is not limited to and based on the above HPI, review of systems and physical exam: Pneumonia. Bronchitis. Asthma or COPD with acute exacerbation. Acute coronary syndrome / GA. Pulmonary embolism. Anxiety. Congestive heart failure. Viral infections including influenza and Covid-19. Atrial fibrillation. Anxiety. Pleural effusion. Pneumothorax. Orders placed to evaluate differential diagnosis based on the above differential, HPI and physical exam AB.4 with an O2 sat of 96% on 3 L nasal cannula. EKG: Time 1437. Rate 86. Atrial fibrillation with controlled rate, right bundle branch block. No ST-T changes, no ectopy, This was reviewed and interpreted by myself the ER physician at 1442. Chest x-ray: Findings suspicious for active pneumonia in the right basal region superimposed on chronic changes. Stable appearing extensive chronic change in the left lung. Mild cardiomegaly which is unchanged. This was reviewed and interpreted by myself the emergency room physician. I also reviewed the radiology report. Lab Review: Laboratory results were reviewed and interpreted by myself the emergency room physician. Leukopenia but 90% neutrophils. Hemoglobin stable at 10.3. BUN and creatinine normal at 13 and 0.8. Lactate is elevated at 5.4. Flu COVID and RSV are negative. Troponin is 83. This is over his baseline at around 40. proBNP is elevated over his baseline at 14,000. Assessment of risk: Level of risk: High risk patient. Multiple comorbidities. Multiple admissions. Hospitalization considerations: Patient is being admitted. Leukopenic but with high neutrophil count. High lactate. Reexamination: Patient remained stable. No increased work of breathing. No altered mental status. No focal motor deficits. Patient has remained stable on his home 3 L nasal cannula Consultation: I spoke with Dr. Phillips who is on-call for the hospital service who agrees to admission. Initially was going to go to [facility] but got his troponin back which is a little bit elevated so I am putting him on stepdown. Assessment and plan: Pneumonia COPD with acute exacerbation Chronic hypoxemic respiratory failure History of ESBL pneumonia Possible sepsis Congestive heart failure Lower extremity edema ?Patient currently stable on 3 L nasal cannula. ?Troponin mildly elevated. Change admit to [facility]. ?IV Solu-Medrol. Updraft here and on ambulance ?Pneumonia with elevated lactate and leukopenia. -1.5 L normal saline bolus. Patient has history of heart failure. Edema in his legs. proBNP is significantly elevated over his baseline. Will reevaluate after 1-1/2 L. So far is not tachycardic and he has not been hypotensive. -Broad-spectrum antibiotics were administered. Meropenem and Zyvox. Patient was recently admitted with ESBL pneumonia -Sepsis quality measures. -Lactic acid with a reflex was ordered. -Blood cultures were ordered. ?I reevaluated the patient's volume status after sepsis fluids were given. -I discussed the patient with the hospitalist on-call who is admitting the patient. - Discussed findings and plan with patient. Answered any questions. - All laboratory values were reviewed and interpreted personally by myself, the ER physician - All imaging was reviewed and interpreted personally by myself, the ER physician. - Evaluation and treatment of this problem were appropriate in the emergency setting Critical Care: -I spent a total of 39 minutes of critical care time managing the patient, independent of any other practitioner. -The time involved in the performance of separately reportable procedures was not counted towards critical care time. Lab Data 04/01/25 14:02 04/01/25 14:02 Labs/Radiology: Radiology Impressions Chest X-Ray 04/01/25 14:16 IMPRESSION: 1. Findings suspicious for active pneumonia in the RIGHT basal region superimposed on chronic changes. 2. Stable appearing extensive chronic change in the LEFT lung. Mild cardiomegaly unchanged. Laboratory Results WBC 4.22 10^3/uL (3.29-11.43) 04/01/25 14:02 RBC 3.79 10^6/uL (3.85-5.65) L 04/01/25 14:02 Hgb 10.30 g/dL (11.27-16.99) L 04/01/25 14:02 Hct 33.5 % (37-53) L 04/01/25 14:02 MCV 88.4 fl (82-101) 04/01/25 14:02 MCH 27.2 pg (27-33) 04/01/25 14:02 MCHC 30.7 g/dL (30-55) 04/01/25 14:02 RDW 16.7 % (12.1-15.1) H 04/01/25 14:02 Plt Count 193 10^3/cmm (157-399) 04/01/25 14:02 MPV 10.0 fL (7.4-10.4) 04/01/25 14:02 Neut % (Auto) 90.6 % 04/01/25 14:02 Lymph % (Auto) 4.5 % 04/01/25 14:02 [place] % (Auto) 4.5 % 04/01/25 14:02 Eos % (Auto) 0.0 % 04/01/25 14:02 Baso % (Auto) 0.2 % 04/01/25 14:02 Neut # (Auto) 3.82 10^3/uL (1.8-7.7) 04/01/25 14:02 Lymph # (Auto) 0.2 10^3/uL (0.8-4.8) L 04/01/25 14:02 [place] # (Auto) 0.2 10^3/uL (0.2-0.9) 04/01/25 14:02 Eos # (Auto) 0.0 10^3/uL (0.0-0.8) 04/01/25 14:02 Baso # (Auto) 0.0 10^3/uL (0.0-0.1) 04/01/25 14:02 Nucleated RBC % (auto) 0 % 04/01/25 14:02 Nucleated RBCs # 0.0 /100WBC 04/01/25 14:02 Specimen Type Arterial 04/01/25 15:45 Sample Site Radial, left 04/01/25 15:45 ABG pH 7.47 (7.35-7.45) H 04/01/25 15:45 ABG pCO2 35.0 mmHg (35-45) 04/01/25 15:45 ABG pO2 88.5 mmHg (80.0-100.0) 04/01/25 15:45 ABG PO2/FiO2 Ratio 276 04/01/25 15:45 ABG HCO3 25.2 mmol/L (22-26) 04/01/25 15:45 ABG O2 Saturation 97.9 04/01/25 15:45 ABG Base Excess 1.6 mmol/L (-2.0-2.0) 04/01/25 15:45 Derek Test Pos 04/01/25 15:45 A-a O2 Gradient 12.3 mmHg (5-10) H 04/01/25 15:45 Hematocrit 30.7 % (42-52) L 04/01/25 15:45 Hgb O2 Saturation 95.9 % (95-100) 04/01/25 15:45 Carboxyhemoglobin 2.0 %THgb (0.4-20.1) 04/01/25 15:45 Methemoglobin 0.0 % (0.4-1.5) L 04/01/25 15:45 Total Hemoglobin 10.0 g/dL (14-18) L 04/01/25 15:45 Sodium 136.0 mmol/L (131-143) 04/01/25 15:45 Potassium 3.9 mmol/L (3.5-5.0) 04/01/25 15:45 Glucose 258.0 mg/dL (70-115) H 04/01/25 15:45 Ionized Calcium 1.2 mmol/L (1.1-1.4) 04/01/25 15:45 O2 Delivery Device Nc 04/01/25 15:45 O2 Liters/Min 3.0 % 04/01/25 15:45 FiO2 32.0 % 04/01/25 15:45 Shell Mold Bonder ID [place] 04/01/25 15:45 Sodium 136 mmol/L (136-145) 04/01/25 14:02 Potassium 4.2 mmol/L (3.5-5.1) 04/01/25 14:02 Chloride 97 mmol/L (98-107) L 04/01/25 14:02 Carbon Dioxide 23 mmol/L (22-29) 04/01/25 14:02 Anion Gap 20.2 (5-19) H 04/01/25 14:02 BUN 13 mg/dL (8-23) 04/01/25 14:02 Creatinine 0.8 mg/dL (0.7-1.2) 04/01/25 14:02 GFR Calculation 95.6 mL/min (90-130) 04/01/25 14:02 Glucose 316 mg/dL (65-115) H 04/01/25 14:02 Calculated Osmolality 294 mOsm/kg (285-295) 04/01/25 14:02 Lactic Acid 5.4 mmol/L (0.5-2.2) H* 04/01/25 14:02 Calcium 8.7 mg/dL (8.5-10.5) 04/01/25 14:02 Total Bilirubin 0.7 mg/dL (0.15-1.2) 04/01/25 14:02 AST 10 U/L (0-40) 04/01/25 14:02 ALT 11 U/L (0-41) 04/01/25 14:02 Alkaline Phosphatase 90 U/L (40-130) 04/01/25 14:02 Troponin T Baseline 83 ng/L (0-15) H 04/01/25 14:02 NT-Pro-B Natriuret Pep 35240 pg/mL (0-125) H 04/01/25 14:02 Total Protein 6.1 g/dL (6.6-8.7) L 04/01/25 14:02 Albumin 3.5 g/dL (3.5-5.2) 04/01/25 14:02 Globulin 2.6 g/dL (1.3-4.6) 04/01/25 14:02 Influenza A (PCR) Negative (Negative) 04/01/25 14:45 Influenza Type B (PCR) Negative (Negative) 04/01/25 14:45 RSV (PCR) Negative (Negative) 04/01/25 14:45 SARS-CoV-2 (PCR) Negative (Negative) 04/01/25 14:45 All radiology interpretation(s) finalized by discharge Discharge Plan Discharge Patient Disposition: Admitted As Inpatient Clinical Impression: Pneumonia, COPD with acute exacerbation, Chronic hypoxemic respiratory failure, Elevated troponin, Chronic anticoagulation Congestive heart failure Qualifiers: Heart failure type: diastolic Heart failure chronicity: chronic Qualified Code(s): I50.32 - Chronic diastolic (congestive) heart failure Atrial fibrillation Qualifiers: Atrial fibrillation type: paroxysmal Qualified Code(s): I48.0 - Paroxysmal atrial fibrillation Condition: Stable 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 of Care Code ED Heater Planer Operator for Kevin Arceo
[2025-04-01 14:32] LABS: Hematocrit 33.5 % (37-53); Hemoglobin 10.30 g/dL (11.27-16.99); Mean Corpuscular HGB Conc 30.7 g/dL (30-55); Mean Corpuscular Hemoglobin 27.2 pg (27-33); Mean Corpuscular Volume 88.4 fl (82-101); Nucleated Red Blood Cells % 0 %; Platelet Count 193 10^3/cmm (157-399); Red Blood Count 3.79 10^6/uL (3.85-5.65); White Blood Count 4.22 10^3/uL (3.29-11.43)
--- NOTE | 2025-04-01 14:37 | ECG_ITS ---
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 Measurements Intervals [place] Rate: 86 P: 0 SC: 0 QRS: 47 QRSD: 142 T: -35 QT: 410 QTc: 492 Interpretive Statements ATRIAL FIBRILLATION RIGHT BUNDLE BRANCH BLOCK [120+ ms QRS DURATION, UPRIGHT V1, 40+ ms S IN I/aVL/V4/V5/V6] POSSIBLE OLD INFERIOR INFARCTION Compared to ECG 03/15/2025 10:43:49 HEART RATE HAS DECREASED Electronically Signed On 04-03-2025 20:47:35 CDT by Eduardo Estrada M.D. [email or web address]
[2025-04-01 14:59] LABS: Troponin(5th) Baseline 83 ng/L (0-15)
[2025-04-01 15:01] LABS: Lactic Sepsis W/Reflex 5.4 mmol/L (0.5-2.2)
[2025-04-01 15:09] LABS: Alanine Aminotransferase 11 U/L (0-41); Albumin Level 3.5 g/dL (3.5-5.2); Alkaline Phosphatase 90 U/L (40-130); Anion Gap 20.2 (5-19); Aspartate Amino Transferase 10 U/L (0-40); Blood Urea Nitrogen 13 mg/dL (8-23); Calcium 8.7 mg/dL (8.5-10.5); Carbon Dioxide 23 mmol/L (22-29); Chloride 97 mmol/L (98-107); Creatinine Clr Calc Pharmacy 95.7848; Globulin 2.6 g/dL (1.3-4.6); Glucose 316 mg/dL (65-115); NT Pro B Type Natriuretic Pept 14537 pg/mL (0-125); Osmolality Calculated 294 mOsm/kg (285-295); Potassium 4.2 mmol/L (3.5-5.1); Sodium 136 mmol/L (136-145); Total Protein 6.1 g/dL (6.6-8.7)
[2025-04-01 15:29] LABS: Respiratory Syncytial Virus Ce NEGATIVE (Negative); SARS-CoV-2 PCR NEGATIVE (Negative)
[2025-04-01 15:48] LABS: ABG PCO2 35.0 mmHg (35-45); ABG PH Result 7.47 (7.35-7.45); Alveolar-Arterial Oxygen Gradi 12.3 mmHg (5-10); Arterial Blood Gas Hematocrit 30.7 % (42-52); Blood Gas Allen Test Pos; Blood Gas LPM 3.0 %; Blood Gas Operator Identificat MONRO; Blood Gas Sample Site Radial, left; Blood Gas Sample Type Arterial; Carboxyhemoglobin 2.0 %THgb (0.4-20.1); Glucose Level-ABG 258.0 mg/dL (70-115); HCO3 ABG 25.2 mmol/L (22-26); Ionized Calcium Level - ABG 1.2 mmol/L (1.1-1.4); Methemoglobin 0.0 % (0.4-1.5); Oxygen Saturation ABG 97.9; PO2 ABG 88.5 mmHg (80.0-100.0); PO2 FiO2 Ratio Arterial Blood 276; Potassium Level - ABG 3.9 mmol/L (3.5-5.0); Sodium Level - ABG 136.0 mmol/L (131-143)
[2025-04-01] MEDS: methylPREDNISolone sod succ 125 mg/2 mL INJ IVP (16:04)
--- NOTE | 2025-04-01 16:16 | ECG_ITS ---
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: : 1955 Requested By: Ameirca Summers Order Number: [id number] Mick MD: JR OH Measurements Intervals [place] Rate: 82 P: 0 [place]: 0 QRS: 59 QRSD: 145 T: -34 QT: 441 QTc: 517 Interpretive Statements ATRIAL FIBRILLATION WITH ABERRANT CONDUCTION OR VENTRICULAR PREMATURE COMPLEXES RIGHT BUNDLE BRANCH BLOCK [120+ ms QRS DURATION, UPRIGHT V1, 40+ ms S IN I/aVL/V4/V5/V6] ST DEVIATION AND MODERATE T-WAVE ABNORMALITY, CONSIDER ANTEROLATERAL ISCHEMIA [-0.1+ mV T-WAVE IN V3-V6] Compared to ECG 04/01/2025 14:37:23 Ventricular premature complex(es) now present Aberrant conduction of supraventricular beat(s) now present T-wave abnormality now present Possible ischemia now present Electronically Signed On 04-03-2025 21:18:44 CDT by JR OH [email or web address]
[2025-04-01 16:17] LABS: Reflex Lactate Order REFLEX LACTIC ORDERD
[2025-04-01] MEDS: linezolid premix 600 MG/300 ML PREMIX 300 MG IV (16:30)
[2025-04-01 16:33] LABS: Troponin 5 2HR 83.37 ng/L (0-15); Troponin 5 2HR Delta 0.37 ABS# (0-10)
[2025-04-01 17:20] LABS: Lactic Acid level (Lactate) 2.5 mmol/L (0.5-2.2)
--- NOTE | 2025-04-01 17:27 | PM.HP ---
Providers/Chief Complaint Admitting Physician: Luis dEuardo Phillips MD Primary Care Provider: PATO Hernandez Chief Complaint: SOB History of Present Illness Gabino Jones Sr is a 69 year old male with history of severe COPD and recent vomiting aspirated into his left upper lung was admitted 03/15/2025 to 03/17/2025 with subsequent outpatient ertapenem infusion for 10 days. Patient denies coughing fits after eating or apparent choking. Patient states that he lives in a camper by himself but was able to drive himself to his IV infusions for those 10 days. He has done okay but [facility] and the provider thought his lungs sounded worse. He has had diarrhea x 2-1/2 days no blood but it has been black or brown. He has had diarrhea 5-6 times a day normal BMs 1-2 a day he denies pain or nausea. He has been feeling sick for about 3 days and states that today he felt a little confused. Patient states his usual oxygen requirement is 3 L/min at home he denies sleep apnea. Tobacco was quit in 2016 on May 12 Patient's next of kin is his daughter Sera Jones who lives in [place]. He states he does not talk to her very often. 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 Past medical history had coronary artery disease with a stent in [address] March 14, 2019 Review of Systems Narrative: General No fevers he has felt chilled Cardiovascular he has felt heavy on his chest with some edema and palpitations especially if he does not take his beta-blockers Respiratory positive for cough productive of yellow and dark mucus as well as some blood GI positive for abdominal pain mild has had reflux but last vomited prior to his admission on 03/15/2025. positive for hesitancy unless he takes Flomax Neuro no stroke or limb weakness symptoms Medications/Allergies Home Medications ?Medication ?Instructions ?Recorded ?Confirmed ?Last Taken ?Type apixaban 5 mg tablet (Eliquis) 5 mg PO BID #60 tabs 10/16/19 04/01/25 04/01/25 08:00 Rx furosemide 40 mg tablet (Lasix) 40 mg PO QAM 03/28/21 04/01/25 04/01/25 08:00 History potassium chloride 20 mEq 20 meq PO QAM 03/28/21 04/01/25 03/15/25 History tablet,extended release albuterol sulfate 90 mcg/actuation 2 inh inhalation Q4H PRN shortness 07/27/22 04/01/25 09/14/24 Rx aerosol inhaler of breath or wheezing #18 grams tamsulosin 0.4 mg capsule (Flomax) 0.4 mg PO BID 02/25/23 04/01/25 03/31/25 History loratadine 10 mg tablet 10 mg PO QAM 05/15/23 04/01/25 03/15/25 History digoxin 250 mcg (0.25 mg) tablet 250 mcg PO QAM 08/04/23 04/01/25 04/01/25 08:00 History nitroglycerin 0.4 mg sublingual 0.4 mg sublingual Q5M PRN Chest 08/04/23 04/01/25 03/15/24 History tablet (Nitrostat) Pain blood-glucose meter (Blood Glucose #1 ea 05/13/24 04/01/25 Unknown Rx Monitoring kit) lancets #100 ea 05/13/24 04/01/25 Unknown Rx pen needle, diabetic 32 gauge x #50 ea 05/13/24 04/01/25 Unknown Rx 1/4 (BD Ultra-Fine Micro Pen Needle) levothyroxine 125 mcg tablet 125 mcg PO QAM 07/09/24 04/01/25 04/01/25 07:00 History diclofenac sodium 1 % topical gel 4 g topical QID PRN joint pain 08/24/24 04/01/25 Unknown Rx #100 grams insulin glargine 100 unit/mL (3 10 unit (0.1 mL) SUBCUT DAILY #15 09/14/24 04/01/25 03/15/25 Rx mL) subcutaneous pen (Lantus mL Solostar U-100 Insulin) folic acid 1 mg tablet 1 mg PO DAILY #30 tabs 12/11/24 04/01/25 03/15/25 Rx albuterol sulfate 2.5 mg/3 mL 2.5 mg inhalation Q6H PRN 01/28/25 04/01/2504/01/25 07:00 History (0.083 %) solution for nebulization Shortness Of Breath aspirin 81 mg tablet,delayed 81 mg PO DAILY 01/28/25 04/01/25 04/01/25 08:00 History release atorvastatin 20 mg tablet 10 mg PO BEDTIME 01/28/25 04/01/25 03/31/25 19:00 History cholecalciferol (vitamin D3) 50 50 mcg PO DAILY 01/28/25 04/01/25 03/15/25 History mcg (2,000 unit) tablet (Vitamin D3) clopidogrel 75 mg tablet 75 mg PO DAILY 01/28/25 04/01/25 04/01/25 08:00 History gabapentin 100 mg capsule 200 mg PO TID 01/28/25 04/01/25 04/01/25 10:00 History metoprolol tartrate 25 mg tablet 37.5 mg PO BID 01/28/25 04/01/25 04/01/25 08:00 History sennosides 8.6 mg-docusate sodium 1 tab PO DAILY 01/28/25 04/01/25 03/31/25 History 50 mg tablet sertraline 100 mg tablet 100 mg PO QPM 01/28/25 04/01/25 03/31/25 19:00 History calcium carbonate 500 mg PO BID 03/09/25 04/01/25 03/15/25 History cyanocobalamin (vitamin B-12) 100 100 mcg PO DAILY 03/09/25 04/01/25 03/15/25 History mcg tablet (Vitamin B-12) empagliflozin 25 mg tablet 12.5 mg PO DAILY 03/09/25 04/01/25 04/01/25 History (Jardiance) pantoprazole 40 mg tablet,delayed 40 mg PO BID 03/09/25 04/01/25 04/01/25 08:00 History release prednisone 10 mg tablet See Taper PO DIRECTED #42 tabs 03/17/25 04/01/25 Unknown Rx tiotropium 2.5 mcg-olodaterol 2.5 2 puff inhalation DAILY 6 months 03/23/25 04/01/25 Unknown Rx mcg/actuation mist for inhalation #4 grams (Stiolto Respimat) Allergies Allergy/AdvReac Type Severity Reaction Status Date / Time No Known Allergies Allergy Verified 03/23/25 10:38 PFSH Acute PFSH: Medical History (Updated 04/01/25 @ 17:47 by Luis Eduardo Phillips MD) History of ESBL E. coli infection Low back pain radiating to lower extremity Greater trochanteric bursitis of left hip Decompensated heart failure Peripheral artery occlusion Port-A-Cath in place 12/02/23 Dr Roberts Greater trochanteric bursitis of right hip Prostate cancer History of colon polyps Chronic anticoagulation eliquis, for afib Chronic respiratory failure with hypoxia Heart failure with preserved ejection fraction Coronary artery disease CHF (congestive heart failure) Last echocardiogram normal EF, grade 2/4 diastolic dysfunction October 2019 Hypertension Anemia Atrial fibrillation GERD (gastroesophageal reflux disease) Hypothyroidism Hyperlipidemia COPD (chronic obstructive pulmonary disease) Surgical History History of cataract surgery Left eye - 12/2022 H/O prostate biopsy S/P appendectomy S/P cholecystectomy History of colonoscopy (~04/2020) History of vasectomy History of knee surgery History of coronary artery bypass graft (03/2019) [address] [place] [address] Family History Father , IN HIS 50'S Lung disease tuberculosis Mother , AT AGE 63 CAD (coronary artery disease) Diabetes Hypertension Sister Cancer Denies family history of Clotting disorder Dementia Hyperlipidemia Psychiatric illness Chronic kidney disease (CKD) Suicide Anesthesia complication Bleeding disorder Stroke Social History (Updated 04/01/25 @ 17:42 by Luis Eduardo Phillips MD) Smoking and tobacco/nicotine status: former use of tobacco/nicotine (5 ppd X 52, Quit on 05-12-2017) Quit status (tobacco/nicotine): has quit using Year quit tobacco: 2017 - 4 PPD x 52 Years Former quit date comment: Quit May 12, 2017 Alcohol intake: never Substance/Drug Use: never Additional social history: Wants full CODE STATUS his daughter Sera Jones is his next of kin and she lives in [place]. This was discussed on 04/01/2025 with Luis Eduardo Phillips MD Lives independently: Yes Household members: none Marital status: Legally Current occupational status: employed and retired Do you think of yourself as: Straight/Heterosexual Current gender identity: Male Vitals/I&O/Wt Last Vital Signs Temp 97.9 F 04/01/25 14:25 Pulse 61 04/01/25 17:12 Resp 16 04/01/25 17:09 BP 95/48 04/01/25 16:59 Pulse Ox 97 04/01/25 17:09 O2 Del Method Nasal Cannula 04/01/25 17:09 O2 Flow Rate 2 04/01/25 17:09 Weight last 48 hrs Weight 87.543 kg Physical Exam Narrative: General Well-developed well-nourished male in no acute cardiopulmonary stress Oropharynx Mallampati 2 Neck supple no obvious swelling Cardiovascular regular rate and rhythm no murmurs rubs gallops Lungs has coarse inspiratory breath sounds and crackles in the left lower lung field as well as right middle lung field. He has prolonged expiratory phase and wheezes throughout moderate air movement Abdomen positive bowel tones soft nontender nondistended Calves 2+ bilateral pitting edema Skin warm and dry Hygiene good Data 04/01/25 14:02 04/01/25 14:02 Micro: Microbiology 04/01/25 14:36 Blood Culture - Preliminary Blood SPECIMEN COLLECTED 04/01/25 14:33 Blood Culture - Preliminary Blood SPECIMEN COLLECTED A&P Assessment and plan 1. Sepsis: Patient admitted with chest pressure, diarrhea, productive cough and lactic acid of 5. He was hypotensive but not tachycardic due to beta-blockers. Patient received stress dose steroids IV antibiotics and fluid bolus tailored to his history of diastolic dysfunction. 2. Pneumonia: Started on meropenem and Zyvox for possible hospital-acquired pneumonia as he was recently in the hospital treated for aspiration pneumonia and now has developed a new pneumonia. Resistant pathogens are possible. Will send sputum for Gram stain culture and sensitivity as well as his blood cultures 3. COPD with acute exacerbation: Continue with steroids and nebulizers oxygen for support I prefer high flow nasal cannula over BiPAP due to his sputum 4. Acute on chronic hypoxic respiratory failure: Patient is chronically on 3 L oxygen with blood gas showing no CO2 retention 5. Pulmonary fibrosis: Severe bilateral emphysematous and fibrotic lungs 6. Diarrhea: Will send C. difficile toxin. Start probiotics 7. Coronary artery disease: Troponin 80 typically runs 30. Hydrate beta-blockers and continue Eliquis for now patient is not having overt chest pain. He reports some chest heaviness EKG does not show acute PR but is difficult to interpret due to A-fib and right bundle branch block PDMP PDMP Reviewed: Not Reviewed Attestations Medical Necessity Statement*: Patient is admitted the hospital with pneumonia, sepsis and diarrhea and will require greater than 2 midnights in the hospital 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 of Care Code Acute Code for g Fwd Diagnoses Sepsis A41.9 Pneumonia J18.9 COPD with acute exacerbation J44.1 Acute on chronic hypoxic respiratory failure J96.21 Pulmonary fibrosis J84.10 Diarrhea R19.7 Coronary artery disease I25.10 Time Spent (min) 70
--- NOTE | 2025-04-01 20:52 | ECG_ITS ---
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1955 Requested By: America Summers Order Number: [id number] Reading MD: JR OH Measurements Intervals [place] Rate: 76 P: 0 WV: 0 QRS: 73 QRSD: 140 T: -76 QT: 434 QTc: 490 Interpretive Statements ATRIAL FIBRILLATION RIGHT BUNDLE BRANCH BLOCK [120+ ms QRS DURATION, UPRIGHT V1, 40+ ms S IN I/aVL/V4/V5/V6] ST DEVIATION AND MARKED T-WAVE ABNORMALITY, CONSIDER ANTEROLATERAL ISCHEMIA [-0.5+ mV T-WAVE IN I/aVL/V3-V6] Compared to ECG 04/01/2025 16:38:05 Ventricular premature complex(es) no longer present Aberrant conduction of supraventricular beat(s) no longer present T-wave abnormality still present Possible ischemia still present Electronically Signed On 04-03-2025 21:19:06 CDT by JR OH [email or web address]
[2025-04-01] MEDS: ATORVASTATIN 10 MG TABLET PO (21:38)
[2025-04-01] MEDS: sodium chlor 0.9% + KCl 20 mEq 20 MEQ/1,000 ML BAG 100 MEQ IV (21:39)
[2025-04-01 21:57] LABS: Troponin 5 6HR 80.58 ng/L (0-15)
[2025-04-01 21:59] LABS: Troponin 5 6HR Delta -2.42 ng/L (0-12)
[2025-04-02] VITALS (13 sets, daily range): BP systolic 105–132; BP diastolic 63–70; PULSE 63–96; RESP 16–18; TEMP 36.3–36.4; O2SAT 6–96
[2025-04-02] MEDS: meropenem 1,000 mg SDV 1000 MG IVP ×3 (01:19→16:56)
[2025-04-02] MEDS: DAPAGLIFLOZIN 10 MG TABLET PO (04:17)
[2025-04-02] MEDS: linezolid premix 600 MG/300 ML PREMIX 300 MG IV ×2 (04:19→16:57)
[2025-04-02] MEDS: sodium chlor 0.9% + KCl 20 mEq 20 MEQ/1,000 ML BAG 100 MEQ IV ×2 (04:19→14:20)
[2025-04-02 05:26] LABS: Hematocrit 29.0 % (37-53); Hemoglobin 9.10 g/dL (11.27-16.99); Mean Corpuscular HGB Conc 31.4 g/dL (30-55); Mean Corpuscular Hemoglobin 27.7 pg (27-33); Mean Corpuscular Volume 88.4 fl (82-101); Nucleated Red Blood Cells % 0 %; Platelet Count 169 10^3/cmm (157-399); Red Blood Count 3.28 10^6/uL (3.85-5.65); White Blood Count 2.06 10^3/uL (3.29-11.43)
[2025-04-02 05:51] LABS: Anion Gap 16.4 (5-19); Blood Urea Nitrogen 13 mg/dL (8-23); Calcium 8.3 mg/dL (8.5-10.5); Carbon Dioxide 22 mmol/L (22-29); Chloride 104 mmol/L (98-107); Creatinine Clr Calc Pharmacy 96.0497; Glucose 221 mg/dL (65-115); Osmolality Calculated 293 mOsm/kg (285-295); Potassium 4.4 mmol/L (3.5-5.1); Sodium 138 mmol/L (136-145)
[2025-04-02] MEDS: insulin glargine 100 units/1 mL 10 UNIT SUBCUT (08:49)
--- NOTE | 2025-04-02 10:18 | PC.SOCIAL ---
IMM Update pg 2 of IMM Updated and reviewed w/ patient. Copy provided. Copy dated, initialed and placed in chart.
--- NOTE | 2025-04-02 14:03 | P.PN_ITS ---
Subjective 2 Subjective: 69-year-old male with history of severe COPD, pneumonia recently discharged and readmitted with pneumonia again has elevated troponin noted on admission. He has atrial fibrillation and right bundle branch block with an echocardiogram showing normal LV size systolic function and without wall motion abnormalities with an EF of 60% and grade 2/4 diastolic dysfunction. He had moderately elevated filling pressures and moderately increased left atrial size. Patient states his cough is better but with walking he had dyspnea on exertion that was marked with chest pressure and a little bit of chest pain. His troponins were flat at 83, 83, 80. Notably he had sepsis at the time of admission. I had him seen by Dr. Hidalgo earlier today to establish care due to severe COPD. He is also post evaluation by speech therapy who recommends regular diet and regular liquid but alternate liquids and solids upright teaspoon size feedings and up for 30 minutes post eating. Patient vomited into his left upper lung last visit and had a bad number treated with 10 days of outpatient fusion with ertapenem Overnight the patient's breathing status has significantly improved Vitals/I&O/Wt Last Vital Signs Temp 97.4 F L 04/02/25 11:34 Pulse 70 04/02/25 12:00 Resp 16 04/02/25 12:00 BP 105/64 04/02/25 11:34 Pulse Ox 93 04/02/25 12:00 O2 Del Method Nasal Cannula 04/02/25 12:00 O2 Flow Rate 3 04/02/25 12:00 04/01/25 04/02/25 04/02/25 22:59 06:59 14:59 Intake Total 1949 966.667 / 2916.667 240 / 240 Output Total 250 / 250 Balance 1949 716.667 / 2666.667 239 / 239 Weight last 48 hrs Weight 88.088 kg Weight 88.088 kg Weight 87.543 kg Physical Exam 2 Narrative: General Well-developed well-nourished male in no acute cardiopulmonary stress Oropharynx Mallampati 2 Neck supple no obvious swelling Cardiovascular regular rate and rhythm no murmurs rubs gallops Lungs has coarse inspiratory breath sounds and crackles in the left lower lung field as well as right middle lung field. He has prolonged expiratory phase and wheezes throughout moderate air movement Abdomen positive bowel tones soft nontender nondistended Calves 2+ bilateral pitting edema Skin warm and dry Hygiene good Data 04/02/25 05:00 04/02/25 05:00 Micro: Microbiology 04/01/25 14:36 Blood Culture - Preliminary Blood SPECIMEN COLLECTED 04/01/25 14:33 Blood Culture - Preliminary Blood SPECIMEN COLLECTED A&P Assessment and plan 1. Sepsis: Patient admitted with chest pressure, diarrhea, productive cough and lactic acid of 5. He was hypotensive but not tachycardic due to beta-blockers. Patient received stress dose steroids IV antibiotics and fluid bolus tailored to his history of diastolic dysfunction. Patient is much improved this morning but still having some chest pressure. Clinically sepsis as a result 2. Pneumonia: Started on meropenem and Zyvox for possible hospital-acquired pneumonia as he was recently in the hospital treated for aspiration pneumonia and now has developed a new pneumonia. Resistant pathogens are possible. Will send sputum for Gram stain culture and sensitivity as well as his blood cultures He is on empiric treatment at this time sputum expectorated sample has been sent and pending and blood cultures are pending. I have had him seen by Dr. Hidalgo 3. COPD with acute exacerbation: Continue with steroids and nebulizers oxygen for support I prefer high flow nasal cannula over BiPAP due to his sputum Patient is doing well on 3 L nasal 4. Acute on chronic hypoxic respiratory failure: Patient is chronically on 3 L oxygen with blood gas showing no CO2 retention 5. Pulmonary fibrosis: Severe bilateral emphysematous and fibrotic lungs 6. Diarrhea: Will send C. difficile toxin. Start probiotics Diarrhea appears to have resolved 7. Coronary artery disease of [place] artery of [place] heart with stable angina pectoris: Troponin 80 typically runs 30. Hydrate beta-blockers and continue Eliquis for now patient is not having overt chest pain. He reports some chest heaviness EKG does not show acute ID but is difficult to interpret due to A-fib and right bundle branch block I have asked Dr. Estrada to see the patient regarding anginal-like chest pain and elevated troponin in the setting of sepsis with history of bypass surgery 5 vessel March 14, 2019 and stent 1989 PDMP PDMP Reviewed: Not Reviewed Attestations 2 Medical Necessity Statement*: Patient remains in the hospital for treatment of pneumonia and evaluation of elevated troponin and coronary artery disease and will require greater than 2 midnight 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 of Care Code 25256 Diagnoses Sepsis A41.9 Pneumonia J18.9 COPD with acute exacerbation J44.1 Acute on chronic hypoxic respiratory failure J96.21 Pulmonary fibrosis J84.10 Diarrhea R19.7 Coronary artery disease of [place] artery of [place] heart with stable angina pectoris I25.118 Associated angina: with stable angina Coronary Disease-Associated Artery/Lesion type: [place] artery [place] vs. transplanted heart: [place] heart Time Spent (min) 35
--- NOTE | 2025-04-02 18:05 | PM.CONSULT ---
Providers/Reason For Consult Consulting Physician/Specialty*: Dr Phillips Reason for Consult*: Recurrent pneumonia Attending Physician: Luis Eduardo Phillips MD Primary Care Provider: PATO Hernandez History of Present Illness History of Present Illness Gabino Jones Sr is a 69 year old male with past medical history of severe COPD with multiple admissions, aspiration pneumonia's seen by infectious disease recently comes into the hospital with increased cough. His oxygen is 3 L/min currently denies any sleep apnea. He has been on outpatient ertapenem infusions, seen by infectious disease. Lives in a trailer. He was diagnosed with sepsis this admission due to cough and lactic acidosis 5. Started on stress dose steroids antibiotics and fluids. Meropenem and Zyvox given for hospital-acquired pneumonia due to history of recent admission. Gram stain and blood cultures pending. Follow-up COPD exacerbation steroids were continued as well as breathing treatments. Due to troponins being high and complaining of some chest tightness, cardiology has been consulted. Medications/Allergies Home Medications ?Medication ?Instructions ?Recorded ?Confirmed ?Last Taken ?Type apixaban 5 mg tablet (Eliquis) 5 mg PO BID #60 tabs 10/16/19 04/01/25 04/01/25 08:00 Rx furosemide 40 mg tablet (Lasix) 40 mg PO QAM 03/28/21 04/01/25 04/01/25 08:00 History potassium chloride 20 mEq 20 meq PO QAM 03/28/21 04/01/25 03/15/25 History tablet,extended release albuterol sulfate 90 mcg/actuation 2 inh inhalation Q4H PRN shortness 07/27/22 04/01/25 09/14/24 Rx aerosol inhaler of breath or wheezing #18 grams tamsulosin 0.4 mg capsule (Flomax) 0.4 mg PO BID 02/25/23 04/01/25 03/31/25 History loratadine 10 mg tablet 10 mg PO QAM 05/15/23 04/01/25 03/15/25 History digoxin 250 mcg (0.25 mg) tablet 250 mcg PO QAM 08/04/23 04/01/25 04/01/25 08:00 History nitroglycerin 0.4 mg sublingual 0.4 mg sublingual Q5M PRN Chest 08/04/23 04/01/25 03/15/24 History tablet (Nitrostat) Pain blood-glucose meter (Blood Glucose #1 ea 05/13/24 04/01/25 Unknown Rx Monitoring kit) lancets #100 ea 05/13/24 04/01/25 Unknown Rx pen needle, diabetic 32 gauge x #50 ea 05/13/24 04/01/25 Unknown Rx 1/4 (BD Ultra-Fine Micro Pen Needle) levothyroxine 125 mcg tablet 125 mcg PO QAM 07/09/24 04/01/25 04/01/25 07:00 History diclofenac sodium 1 % topical gel 4 g topical QID PRN joint pain 08/24/24 04/01/25 Unknown Rx #100 grams insulin glargine 100 unit/mL (3 10 unit (0.1 mL) SUBCUT DAILY #15 09/14/24 04/01/25 03/15/25 Rx mL) subcutaneous pen (Lantus mL Solostar U-100 Insulin) folic acid 1 mg tablet 1 mg PO DAILY #30 tabs 12/11/24 04/01/25 03/15/25 Rx albuterol sulfate 2.5 mg/3 mL 2.5 mg inhalation Q6H PRN 01/28/25 04/01/25 04/01/25 07:00 History (0.083 %) solution for nebulization Shortness Of Breath aspirin 81 mg tablet,delayed 81 mg PO DAILY 01/28/25 04/01/25 04/01/25 08:00 History release atorvastatin 20 mg tablet 10 mg PO BEDTIME 01/28/25 04/01/25 03/31/25 19:00 History cholecalciferol (vitamin D3) 50 50 mcg PO DAILY 01/28/25 04/01/25 03/15/25 History mcg (2,000 unit) tablet (Vitamin D3) clopidogrel 75 mg tablet 75 mg PO DAILY 01/28/25 04/01/25 04/01/25 08:00 History gabapentin 100 mg capsule 200 mg PO TID 01/28/25 04/01/25 04/01/25 10:00 History metoprolol tartrate 25 mg tablet 37.5 mg PO BID 01/28/25 04/01/25 04/01/25 08:00 History sennosides 8.6 mg-docusate sodium 1 tab PO DAILY 01/28/25 04/01/25 03/31/25 History 50 mg tablet sertraline 100 mg tablet 100 mg PO QPM 01/28/25 04/01/25 03/31/25 19:00 History calcium carbonate 500 mg PO BID 03/09/25 04/01/25 03/15/25 History cyanocobalamin (vitamin B-12) 100 100 mcg PO DAILY 03/09/25 04/01/25 03/15/25 History mcg tablet (Vitamin B-12) empagliflozin 25 mg tablet 12.5 mg PO DAILY 03/09/25 04/01/25 04/01/25 History (Jardiance) pantoprazole 40 mg tablet,delayed 40 mg PO BID 03/09/25 04/01/25 04/01/25 08:00 History release prednisone 10 mg tablet See Taper PO DIRECTED #42 tabs 03/17/25 04/01/25 Unknown Rx tiotropium 2.5 mcg-olodaterol 2.5 2 puff inhalation DAILY 6 months 03/23/25 04/01/25 Unknown Rx mcg/actuation mist for inhalation #4 grams (Stiolto Respimat) Allergies Allergy/AdvReac Type Severity Reaction Status Date / Time No Known Allergies Allergy Verified 03/23/25 10:38 Current Medications Generic Name Dose Route Start Last Admin Trade Name Freq PRN Reason Stop Dose Admin Albuterol/Ipratropium 3 ml 04/01/25 20:00 04/02/25 16:01 Ipratropium-Albuterol 3 Ml Neb INHALATION 3 ml QID.RESPIRATORY JUAN DAVID Administration Albuterol/Ipratropium 3 ml 04/02/25 08:00 04/02/25 16:00 Ipratropium-Albuterol 3 Ml Neb INHALATION Not Given QID.RESPIRATORY JUAN DAVID Apixaban 5 mg 04/02/25 05:00 04/02/25 16:57 Apixaban 5 Mg Tablet PO 5 mg BID JUAN DAVID Administration Atorvastatin Calcium 10 mg 04/01/25 21:00 04/01/25 21:38 Atorvastatin 10 Mg Tablet PO 10 mg BEDTIME JUAN DAVID Administration Calcium Carbonate 500 mg 04/02/25 05:00 04/02/25 16:57 Calcium Carbonate 500 Mg Chew Tablet PO 500 mg BID JUAN DAVID Administration Clopidogrel Bisulfate 75 mg 04/02/25 05:00 04/02/25 04:18 Clopidogrel 75 Mg Tablet PO 75 mg DAILY JUAN DAVID Administration Digoxin 250 mcg 04/02/25 05:00 04/02/25 04:18 Digoxin 250 Mcg Tablet PO 250 mcg QAM JUAN DAVID Administration Folic Acid 1 mg 04/02/25 05:00 04/02/25 04:18 Folic Acid 1 Mg Tablet PO 1 mg DAILY JUAN DAVID Administration Gabapentin 200 mg 04/01/25 21:00 04/02/25 11:57 Gabapentin 100 Mg Capsule PO 200 mg TID JUAN DAVID Administration Potassium Chloride/Sodium Chloride 20 meq in 1,000 mls @ 100 mls/hr 04/01/25 17:15 04/02/25 14:20 Sodium Chlor 0.9% + Kcl 20 Meq IV 100 mls/hr .Q10H JUAN DAVID Administration Linezolid 600 mg in 300 mls @ 300 mls/hr 04/02/25 04:30 04/02/25 16:57 Zyvox Premix IV 300 mls/hr Q12H JUAN DAVID Administration Protocol Insulin Glargine 10 unit 04/02/25 08:00 04/02/25 08:49 Insulin Glargine 100 Units/1 Ml SUBCUT 10 unit BREAKFAST JUAN DAVID Administration Insulin Human Lispro 0 unit 04/01/25 18:00 04/02/25 17:44 Insulin Lispro 100 Unit/1 Ml SUBCUT 4 unit WM&BEDTIME JUAN DAVID Administration Protocol Levothyroxine Sodium 125 mcg 04/02/25 05:00 04/02/25 04:18 Levothyroxine 125 Mcg Tablet PO 125 mcg QAM JUAN DAVID Administration Loratadine 10 mg 04/02/25 05:00 04/02/25 04:18 Loratadine 10 Mg Tablet PO 10 mg QAM JUAN DAVID Administration Meropenem 1,000 mg 04/02/25 00:00 04/02/25 16:56 Meropenem 1,000 Mg Sdv IVP 1,000 mg Q8H JUAN DAVID Administration Protocol Metoprolol Tartrate 37.5 mg 04/02/25 05:00 04/02/25 16:57 Metoprolol Tartrate 25 Mg Tablet PO 37.5 mg BID JUAN DAVID Administration Pantoprazole Sodium 40 mg 04/02/25 05:00 04/02/25 16:[address] 40 Mg Tablet PO 40 mg BID JUAN DAVID Administration Sertraline HCl 100 mg 04/02/25 17:00 04/02/25 16:57 Sertraline 100 Mg Tablet PO 100 mg QPM JUAN DAVID Administration Tamsulosin HCl 0.4 mg 04/02/25 05:00 04/02/25 16:57 Tamsulosin 0.4 Mg Capsule PO 0.4 mg BID JUAN DAVID Administration Vitamin D 2,000 unit 04/02/25 05:00 04/02/25 04:16 Cholecalciferol (Vitamin D3) 1,000 Unit Tablet PO 2,000 unit DAILY JUAN DAVID Administration PFSH Acute PFSH: Medical History (Updated 04/01/25 @ 17:47 by Luis Eduardo Phillips MD) History of ESBL E. coli infection Low back pain radiating to lower extremity Greater trochanteric bursitis of left hip Decompensated heart failure Peripheral artery occlusion Port-A-Cath in place 12/02/23 Dr Roberts Greater trochanteric bursitis of right hip Prostate cancer History of colon polyps Chronic anticoagulation eliquis, for afib Chronic respiratory failure with hypoxia Heart failure with preserved ejection fraction Coronary artery disease CHF (congestive heart failure) Last echocardiogram normal EF, grade 2/4 diastolic dysfunction October 2019 Hypertension Anemia Atrial fibrillation GERD (gastroesophageal reflux disease) Hypothyroidism Hyperlipidemia COPD (chronic obstructive pulmonary disease) Surgical History History of cataract surgery Left eye - 12/2022 H/O prostate biopsy S/P appendectomy S/P cholecystectomy History of colonoscopy (~04/2020) History of vasectomy History of knee surgery History of coronary artery bypass graft (03/2019) [address] [place] [address] Family History Father , IN HIS 50'S Lung disease tuberculosis Mother , AT AGE 63 CAD (coronary artery disease) Diabetes Hypertension Sister Cancer Denies family history of Clotting disorder Dementia Hyperlipidemia Psychiatric illness Chronic kidney disease (CKD) Suicide Anesthesia complication Bleeding disorder Stroke Social History (Updated 04/01/25 @ 17:42 by Luis Eduardo Phillips MD) Smoking and tobacco/nicotine status: former use of tobacco/nicotine (5 ppd X 52, Quit on 05-12-2017) Quit status (tobacco/nicotine): has quit using Year quit tobacco: 2017 - 4 PPD x 52 Years Former quit date comment: Quit May 12, 2017 Alcohol intake: never Substance/Drug Use: never Additional social history: Wants full CODE STATUS his daughter Sera Jones is his next of kin and she lives in [place]. This was discussed on 04/01/2025 with Luis Eduardo Phillips MD Lives independently: Yes Household members: none Marital status: Legally Current occupational status: employed and retired Do you think of yourself as: Straight/Heterosexual Current gender identity: Male Vitals/I&O/Wt Last Vital Signs Temp 97.5 F L 04/02/25 17:00 Pulse 96 04/02/25 17:00 Resp 18 04/02/25 17:00 BP 120/69 04/02/25 17:00 Pulse Ox 94 04/02/25 17:00 O2 Del Method Room Air 04/02/25 17:00 O2 Flow Rate 3 04/02/25 16:00 04/02/25 04/02/25 04/02/25 06:59 14:59 22:59 Intake Total 966.667 / 2916.667 1240 / 1240 240 / 1480 Output Total 250 / 250 Balance 716.667 / 2666.667 1239 / 1239 240 / 1479 Weight last 48 hrs Weight 194 lb 3.2 oz Weight 194 lb 3.2 oz Weight 193 lb Physical Exam Narrative: Per RN General: alert, NAD frail HEENT: EOMI Pulmonary: Rhonchorous breath sounds bilaterally Cardiovascular: rrr, nl s1s2, Abdomen: soft, nt, nd, no r/g, Extremities: no edema Neurologic: grossly intact Agree with above exam Data 04/02/25 05:00 04/02/25 05:00 Micro: Microbiology 04/02/25 09:36 Gram Stain - Final Sputum - Expectorated Sputum 04/01/25 14:36 Blood Culture - Preliminary Blood NEGATIVE TO DATE 04/01/25 14:33 Blood Culture - Preliminary Blood NEGATIVE TO DATE A&P Assessment and plan 1. COPD (chronic obstructive pulmonary disease): 2. Bilateral pneumonia: Plan: # Acute COPD exacerbation -Agree with current bronchodilators he is improving. Continue albuterol nebulizer along with Spiriva. # Severe end-stage COPD-group E - continue chronic bronchodilators # Acute on chronic respiratory failure # Aspiration pneumonia-possible although recent modified barium swallow study had been negative. Chest CT performed recently reviewed by me personally reviewed and interpreted showed dense consolidation with cavitation severe bullous emphysematous disease. Sputum cultures grew ESBL E. coli and was discharged with IV ertapenem. I reviewed his CT scan personally myself from 03/15/2025 that showed dense cavitary pneumonia on the left upper lobe. I will repeat a CT scan this admission to determine the need for a bronchoscopy in the future after cardiac clearance is obtained and only if needed.. Patient is on aspirin and Plavix which cannot be held due to his possible non-STEMI # Severe emphysematous changes mixed with pulmonary fibrosis seen on CT PE # Possible non-STEMI versus stress-induced elevation of troponins. Medical decision making level-high High MDM includes number and complexity of problems actively addressed during encounter, amount and/or complexity of data reviewed/ordered [ previous or external records, resulted lab(s)/test(s), ordered lab(s)/test(s), independent historian, independent test interpretation and other healthcare professional discussion] and described risk of complication, morbidity or mortality of management as documented This documentation was created by [employer] supervisor insulation software (known for inherent supervisor insulation error). Every effort was made to assure accuracy of supervisor insulation. Any obvious errors or omissions should be clarified with the author of the document Telemedicine Consent Patient seen today via Telemedicine by agreement and consent of patient.? Telemedicine technology used during the visit includes audio and, as available, review of images.? The patient encounter is appropriate and reasonable under the circumstances given the patient?s particular presentation at this time.? The patient has been advised of the potential risks and limitations of this mode of treatment (including but not limited to the absence of in-person examination) and has agreed to be treated in a remote fashion in spite of them.? Any, and all, of the patient?s/patient?s family?s questions on this issue have been answered and I have made no promises or guarantees to the patient. PDMP PDMP Reviewed: Not Reviewed 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 of Care Code 98838 Diagnoses COPD (chronic obstructive pulmonary disease) J44.9 Bilateral pneumonia J18.9
--- NOTE | 2025-04-02 18:16 | CTR_ITS ---
PROCEDURE INFORMATION: Exam: CT Chest Without Contrast; Diagnostic Exam date and time: 04/02/2025 11:14 PM Age: 69 years old Clinical indication: Shortness of breath; Prior surgery; Surgery date: 6+ months; Surgery type: Cabg. Gb; SOB with hypoxia. Currently being treated for pneumonia. History of copd. TECHNIQUE: Imaging protocol: Diagnostic computed tomography of the chest without contrast. Radiation optimization: All CT scans at this facility use at least one of these dose optimization techniques: automated exposure control; mA and/or kV adjustment per patient size (includes targeted exams where dose is matched to clinical indication); or iterative reconstruction. COMPARISON: CT angio chest PE protcl [id number] 03/15/2025 2:49 PM RADIATION DOSE METRICS: Total DLP (mGy-cm): 411.3 FINDINGS: Thyroid: Atrophic homogeneous thyroid. Lungs: Severe centrilobular and paraseptal emphysema. There has been slight improvement in left upper lobe airspace disease compared to the prior. Diffuse bronchial wall thickening with sparse endobronchial debris. Pleural spaces: No pneumothorax or pleural effusion. Left superior pleural thickening appears stable. Heart: Mediastinal surgical clips and vascular markers suggest prior myocardial revascularization. Mild cardiomegaly. Coronary arteries: Moderate heterogeneous coronary artery calcification. Lymph nodes: No enlarged lymph nodes. Vasculature: Within expected limits for age. Normal caliber arteries. Diaphragm: Moderate sliding hiatal hernia. Bones/joints: Incompletely healed median sternotomy without evidence of bony destructive change. No acute fracture or destructive lesion in the scan range. Soft tissues: Unremarkable. CT/CT chest wo con [id number] IMPRESSION: Severe centrilobular and paraseptal emphysema. There has been some improvement in left upper lobe airspace disease. Recommend CT follow-up to document complete resolution as underlying mass lesion is difficult to exclude. COMMENTS: The presence of pulmonary emphysema on CT is an independent risk factor for lung cancer. In the absence of a history or active diagnosis of lung cancer, it is recommended that this patient with emphysema be evaluated for enrollment in a low dose CT lung cancer screening program.
--- NOTE | 2025-04-02 19:07 | PM.CONSULT ---
Providers/Reason For Consult Consulting Physician/Specialty*: Eduardo Estrada MD Reason for Consult*: patient needs to stay for atleast 2 more midnights for pneumonia and NSTEMI Requesting Physician: Camron Phillips MD Attending Physician: Luis Eduardo Phillips MD Primary Care Provider: PATO Hernandze History of Present Illness History of Present Illness Gabino Jones Sr is a 69 year old male with a history of smoking (now ex smoker), severe COPD on home oxygen 3L, CAD, s/p CABG 2018, afib, RBBB, DM, PAD s/p stenting to LLE, planned intervention for RLE in the future, chronic HFpEF, admitted for pneumonia and sepsis. Troponins 20 -->80. The patient has been having some intermittent anterior chest pain. He thinks it is consistent with his angina. Had some CP this afternoon that lasted about 10 minutes. Occasional fast heart rates. Review of Systems Resp: Reports: dyspnea and productive cough Medications/Allergies Home Medications ?Medication ?Instructions ?Recorded ?Confirmed ?Last Taken ?Type apixaban 5 mg tablet (Eliquis) 5 mg PO BID #60 tabs 10/16/19 04/01/25 04/01/25 08:00 Rx furosemide 40 mg tablet (Lasix) 40 mg PO QAM 03/28/21 04/01/25 04/01/25 08:00 History potassium chloride 20 mEq 20 meq PO QAM 03/28/21 04/01/25 03/15/25 History tablet,extended release albuterol sulfate 90 mcg/actuation 2 inh inhalation Q4H PRN shortness 07/27/22 04/01/25 09/14/24 Rx aerosol inhaler of breath or wheezing #18 grams tamsulosin 0.4 mg capsule (Flomax) 0.4 mg PO BID 02/25/23 04/01/25 03/31/25 History loratadine 10 mg tablet 10 mg PO QAM 05/15/23 04/01/25 03/15/25 History digoxin 250 mcg (0.25 mg) tablet 250 mcg PO QAM 08/04/23 04/01/25 04/01/25 08:00 History nitroglycerin 0.4 mg sublingual 0.4 mg sublingual Q5M PRN Chest 08/04/23 04/01/25 03/15/24 History tablet (Nitrostat) Pain blood-glucose meter (Blood Glucose #1 ea 05/13/24 04/01/25 Unknown Rx Monitoring kit) lancets #100 ea 05/13/24 04/01/25 Unknown Rx pen needle, diabetic 32 gauge x #50 ea 05/13/24 04/01/25 Unknown Rx 1/4 (BD Ultra-Fine Micro Pen Needle) levothyroxine 125 mcg tablet 125 mcg PO QAM 07/09/24 04/01/25 04/01/25 07:00 History diclofenac sodium 1 % topical gel 4 g topical QID PRN joint pain 08/24/24 04/01/25 Unknown Rx #100 grams insulin glargine 100 unit/mL (3 10 unit (0.1 mL) SUBCUT DAILY #15 09/14/24 04/01/25 03/15/25 Rx mL) subcutaneous pen (Lantus mL Solostar U-100 Insulin) folic acid 1 mg tablet 1 mg PO DAILY #30 tabs 12/11/24 04/01/25 03/15/25 Rx albuterol sulfate 2.5 mg/3 mL 2.5 mg inhalation Q6H PRN 01/28/25 04/01/25 04/01/25 07:00 History (0.083 %) solution for nebulization Shortness Of Breath aspirin 81 mg tablet,delayed 81 mg PO DAILY 01/28/25 04/01/25 04/01/25 08:00 History release atorvastatin 20 mg tablet 10 mg PO BEDTIME 01/28/25 04/01/25 03/31/25 19:00 History cholecalciferol (vitamin D3) 50 50 mcg PO DAILY 01/28/25 04/01/25 03/15/25 History mcg (2,000 unit) tablet (Vitamin D3) clopidogrel 75 mg tablet 75 mg PO DAILY 01/28/25 04/01/25 04/01/25 08:00 History gabapentin 100 mg capsule 200 mg PO TID 01/28/25 04/01/25 04/01/25 10:00 History metoprolol tartrate 25 mg tablet 37.5 mg PO BID 01/28/25 04/01/25 04/01/25 08:00 History sennosides 8.6 mg-docusate sodium 1 tab PO DAILY 01/28/25 04/01/25 03/31/25 History 50 mg tablet sertraline 100 mg tablet 100 mg PO QPM 01/28/25 04/01/25 03/31/25 19:00 History calcium carbonate 500 mg PO BID 03/09/25 04/01/25 03/15/25 History cyanocobalamin (vitamin B-12) 100 100 mcg PO DAILY 03/09/25 04/01/25 03/15/25 History mcg tablet (Vitamin B-12) empagliflozin 25 mg tablet 12.5 mg PO DAILY 03/09/25 04/01/25 04/01/25 History (Jardiance) pantoprazole 40 mg tablet,delayed 40 mg PO BID 03/09/25 04/01/25 04/01/25 08:00 History release prednisone 10 mg tablet See Taper PO DIRECTED #42 tabs 03/17/25 04/01/25 Unknown Rx tiotropium 2.5 mcg-olodaterol 2.5 2 puff inhalation DAILY 6 months 03/23/25 04/01/25 Unknown Rx mcg/actuation mist for inhalation #4 grams (Stiolto Respimat) Allergies Allergy/AdvReac Type Severity Reaction Status Date / Time No Known Allergies Allergy Verified 03/23/25 10:38 Current Medications Generic Name Dose Route Start Last Admin Trade Name Freq PRN Reason Stop Dose Admin Albuterol/Ipratropium 3 ml 04/01/25 20:00 04/02/25 16:01 Ipratropium-Albuterol 3 Ml Neb INHALATION 3 ml QID.RESPIRATORY JUAN DAVID Administration Albuterol/Ipratropium 3 ml 04/02/25 08:00 04/02/25 16:00 Ipratropium-Albuterol 3 Ml Neb INHALATION Not Given QID.RESPIRATORY JUAN DAVID Apixaban 5 mg 04/02/25 05:00 04/02/25 16:57 Apixaban 5 Mg Tablet PO 5 mg BID JUAN DAVID Administration Atorvastatin Calcium 10 mg 04/01/25 21:00 04/01/25 21:38 Atorvastatin 10 Mg Tablet PO 10 mg BEDTIME JUAN DAVID Administration Calcium Carbonate 500 mg 04/02/25 05:00 04/02/25 16:57 Calcium Carbonate 500 Mg Chew Tablet PO 500 mg BID JUAN DAVID Administration Clopidogrel Bisulfate 75 mg 04/02/25 05:00 04/02/25 04:18 Clopidogrel 75 Mg Tablet PO 75 mg DAILY JUAN DAVID Administration Digoxin 250 mcg 04/02/25 05:00 04/02/25 04:18 Digoxin 250 Mcg Tablet PO 250 mcg QAM JUAN DAVID Administration Folic Acid 1 mg 04/02/25 05:00 04/02/25 04:18 Folic Acid 1 Mg Tablet PO 1 mg DAILY JUAN DAVID Administration Gabapentin 200 mg 04/01/25 21:00 04/02/25 11:57 Gabapentin 100 Mg Capsule PO 200 mg TID JUAN DAVID Administration Potassium Chloride/Sodium Chloride 20 meq in 1,000 mls @ 100 mls/hr 04/01/25 17:15 04/02/25 14:20 Sodium Chlor 0.9% + Kcl 20 Meq IV 100 mls/hr .Q10H JUAN DAVID Administration Linezolid 600 mg in 300 mls @ 300 mls/hr 04/02/25 04:30 04/02/25 18:09 Zyvox Premix IV Infused Q12H JUAN DAVID Infusion Protocol Insulin Glargine 10 unit 04/02/25 08:00 04/02/25 08:49 Insulin Glargine 100 Units/1 Ml SUBCUT 10 unit BREAKFAST JUAN DAVID Administration Insulin Human Lispro 0 unit 04/01/25 18:00 04/02/25 17:44 Insulin Lispro 100 Unit/1 Ml SUBCUT 4 unit WM&BEDTIME JUAN DAVID Administration Protocol Levothyroxine Sodium 125 mcg 04/02/25 05:00 04/02/25 04:18 Levothyroxine 125 Mcg Tablet PO 125 mcg QAM JUAN DAVID Administration Loratadine 10 mg 04/02/25 05:00 04/02/25 04:18 Loratadine 10 Mg Tablet PO 10 mg QAM JUAN DAVID Administration Meropenem 1,000 mg 04/02/25 00:00 04/02/25 16:56 Meropenem 1,000 Mg Sdv IVP 1,000 mg Q8H JUAN DAVID Administration Protocol Metoprolol Tartrate 37.5 mg 04/02/25 05:00 04/02/25 16:57 Metoprolol Tartrate 25 Mg Tablet PO 37.5 mg BID JUAN DAVID Administration Pantoprazole Sodium 40 mg 04/02/25 05:00 04/02/25 16:[address] 40 Mg Tablet PO 40 mg BID JUAN DAVID Administration Sertraline HCl 100 mg 04/02/25 17:00 04/02/25 16:57 Sertraline 100 Mg Tablet PO 100 mg QPM JUAN DAVID Administration Tamsulosin HCl 0.4 mg 04/02/25 05:00 04/02/25 16:57 Tamsulosin 0.4 Mg Capsule PO 0.4 mg BID JUAN DAVID Administration Vitamin D 2,000 unit 04/02/25 05:00 04/02/25 04:16 Cholecalciferol (Vitamin D3) 1,000 Unit Tablet PO 2,000 unit DAILY JUAN DAVID Administration PFSH Acute PFSH: Medical History (Updated 04/02/25 @ 19:20 by Eduardo Estrada MD) History of ESBL E. coli infection Low back pain radiating to lower extremity Greater trochanteric bursitis of left hip Decompensated heart failure Peripheral artery occlusion Port-A-Cath in place 12/02/23 Dr Roberts Greater trochanteric bursitis of right hip Prostate cancer History of colon polyps Chronic anticoagulation eliquis, for afib Chronic respiratory failure with hypoxia Heart failure with preserved ejection fraction Coronary artery disease CHF (congestive heart failure) Last echocardiogram normal EF, grade 2/4 diastolic dysfunction October 2019 Hypertension Anemia Atrial fibrillation GERD (gastroesophageal reflux disease) Hypothyroidism Hyperlipidemia COPD (chronic obstructive pulmonary disease) Surgical History History of cataract surgery Left eye - 12/2022 H/O prostate biopsy S/P appendectomy S/P cholecystectomy History of colonoscopy (~04/2020) History of vasectomy History of knee surgery History of coronary artery bypass graft (03/2019) [address] [place] [address] Family History Father , IN HIS 50'S Lung disease tuberculosis Mother , AT AGE 63 CAD (coronary artery disease) Diabetes Hypertension Sister Cancer Denies family history of Clotting disorder Dementia Hyperlipidemia Psychiatric illness Chronic kidney disease (CKD) Suicide Anesthesia complication Bleeding disorder Stroke Social History (Updated 04/01/25 @ 17:42 by Luis Eduardo Phillips MD) Smoking and tobacco/nicotine status: former use of tobacco/nicotine (5 ppd X 52, Quit on 05-12-2017) Quit status (tobacco/nicotine): has quit using Year quit tobacco: 2017 - 4 PPD x 52 Years Former quit date comment: Quit May 12, 2017 Alcohol intake: never Substance/Drug Use: never Additional social history: Wants full CODE STATUS his daughter Sera Jones is his next of kin and she lives in [place]. This was discussed on 04/01/2025 with Luis Eduardo Phillips MD Lives independently: Yes Household members: none Marital status: Legally Current occupational status: employed and retired Do you think of yourself as: Straight/Heterosexual Current gender identity: Male Vitals/I&O/Wt Last Vital Signs Temp 97.5 F L 04/02/25 17:00 Pulse 96 04/02/25 17:00 Resp 18 04/02/25 17:00 BP 120/69 04/02/25 17:00 Pulse Ox 94 04/02/25 17:00 O2 Del Method Room Air 04/02/25 17:00 O2 Flow Rate 3 04/02/25 16:00 04/02/25 04/02/25 04/02/25 06:59 14:59 22:59 Intake Total 966.667 / 2916.667 1240 / 1240 540 / 1780 Output Total 250 / 250 Balance 716.667 / 2666.667 1239 / 1239 540 / 1779 Weight last 48 hrs Weight 194 lb 3.2 oz Weight 194 lb 3.2 oz Weight 193 lb Physical Exam Narrative: General: In no acute distress Neck: No jugular venous distention or carotid bruits Heart: Normal S1 and S2 with a regular rate and rhythm, no cardiac murmurs Lungs: decreased Breath sound bilaterally. No rales Extremities: No lower extremity edema Neuro: Alert and oriented x 3 Data 04/02/25 05:00 04/02/25 05:00 Micro: Microbiology 04/02/25 09:36 Gram Stain - Final Sputum - Expectorated Sputum 04/01/25 14:36 Blood Culture - Preliminary Blood NEGATIVE TO DATE 04/01/25 14:33 Blood Culture - Preliminary Blood NEGATIVE TO DATE Other data: EKG 04/01/25: afib with RBBB. Compared to prior EKG 03/09/25, PVCs no longer present A&P Assessment and plan 1. Pneumonia: Tx per Hospitalist and Pulmonology 2. Chronic heart failure with preserved ejection fraction: appears compensated 3. Chronic hypoxemic respiratory failure: 4. Atrial fibrillation with RVR: Rate controlled On Eliquis 5. Coronary artery disease: h/o CABG 2019 6. PAD (peripheral artery disease): s/p stenting LLE planned intervention for RLE at outside facility no active LE ischemia 7. NSTEMI (non-ST elevated myocardial infarction): Due to demand ischemia Plan: Continue current medical regimen - on triple therapy (DAPT plus Eliquis) likely due to recent LLE intervention plus afib. Will look into this. Nitro SL PRN CP Echo Check digoxin level Lexiscan nuclear stress test early next week, Saturday if clinically stable. Will see patient over the weekend to see if ready for stress test Saturday Eventual follow up with his PAD physician for RLE intervention PDMP PDMP Reviewed: Not Reviewed 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 of Care Code 96999 Diagnoses Pneumonia J18.9 Chronic heart failure with preserved ejection fraction I50.32 Chronic hypoxemic respiratory failure J96.11 Atrial fibrillation with RVR I48.91 Coronary artery disease I25.10 PAD (peripheral artery disease) I73.9 NSTEMI (non-ST elevated myocardial infarction) I21.4
[2025-04-02 20:01] LABS: Digoxin 0.8 ng/mL (0.6-1.2)
[2025-04-02] MEDS: ATORVASTATIN 10 MG TABLET PO (21:59)
[2025-04-03] VITALS (14 sets, daily range): BP systolic 109–143; BP diastolic 57–71; PULSE 64–87; RESP 16–18; TEMP 36.4–36.6; O2SAT 91–98
[2025-04-03] MEDS: sodium chlor 0.9% + KCl 20 mEq 20 MEQ/1,000 ML BAG 100 MEQ IV ×2 (00:28→11:03)
[2025-04-03] MEDS: meropenem 1,000 mg SDV 1000 MG IVP ×4 (00:28→23:03)
[2025-04-03] MEDS: DAPAGLIFLOZIN 10 MG TABLET PO (05:00)
[2025-04-03] MEDS: linezolid premix 600 MG/300 ML PREMIX 300 MG IV (05:00)
[2025-04-03 05:39] LABS: Anion Gap 11.0 (5-19); Blood Urea Nitrogen 20 mg/dL (8-23); Calcium 8.4 mg/dL (8.5-10.5); Carbon Dioxide 27 mmol/L (22-29); Chloride 107 mmol/L (98-107); Creatinine Clr Calc Pharmacy 85.3382; Glucose 105 mg/dL (65-115); Osmolality Calculated 295 mOsm/kg (285-295); Potassium 4.0 mmol/L (3.5-5.1); Sodium 141 mmol/L (136-145)
[2025-04-03] MEDS: insulin glargine 100 units/1 mL 10 UNIT SUBCUT (08:14)
--- NOTE | 2025-04-03 14:59 | P.PN_ITS ---
Subjective 2 Subjective: Feels short of breath just getting out of bed. No CP today Vitals/I&O/Wt Last Vital Signs Temp 97.9 F 04/03/25 11:35 Pulse 66 04/03/25 11:35 Resp 17 04/03/25 11:35 BP 109/70 04/03/25 11:35 Pulse Ox 97 04/03/25 11:35 O2 Del Method Nasal Cannula 04/03/25 11:35 O2 Flow Rate 3 04/03/25 11:11 04/02/25 04/03/25 04/03/25 22:59 06:59 14:59 Intake Total 540 / 1780 1300 / 3080 1840 / 1840 Balance 540 / 1779 1300 / 3079 1840 / 1840 Weight last 48 hrs Weight 194 lb Weight 194 lb 3.2 oz Weight 194 lb 3.2 oz Physical Exam 2 Narrative: General: appears mildly tachycardic after walking around bed to move TV Neck: No jugular venous distention or carotid bruits Heart: irreg irreg Lungs: Mild audible expir. wheezes. No rales Extremities: 1+ leg edema misael Neuro: Alert and oriented x 3 Data 04/02/25 05:00 04/03/25 04:19 Micro: Microbiology 04/02/25 09:36 Gram Stain - Final Sputum - Expectorated Sputum 04/01/25 14:36 Blood Culture - Preliminary Blood NEGATIVE TO DATE 04/01/25 14:33 Blood Culture - Preliminary Blood NEGATIVE TO DATE Other data: Tele - afib HR 89bpm A&P Assessment and plan 1. Pneumonia: Tx per Hospitalist and Pulmonology 2. Chronic heart failure with preserved ejection fraction: mild vol overloaded 3. Chronic hypoxemic respiratory failure: 4. Atrial fibrillation with RVR: Rate controlled Dig level good at 0.8 On Eliquis 5. Coronary artery disease: h/o CABG 2019 No cp today 6. PAD (peripheral artery disease): s/p stenting LLE planned intervention for RLE at outside facility no active LE ischemia 7. NSTEMI (non-ST elevated myocardial infarction): Due to demand ischemia Plan: Continue current medical regimen - on triple therapy (DAPT plus Eliquis) likely due to recent LLE intervention plus afib. Will attempt to determine date of LLE intervention to know when we can stop the ASA Nitro SL PRN CP Echo Lexiscan nuclear stress test early next week, Saturday if clinically stable. Eventual follow up with his PAD physician for RLE intervention Stop IVF Will need to resume lasix soon PDMP PDMP Reviewed: Not Reviewed Attestations 2 Medical Necessity Statement*: needs 2 more midnights in hospital due to pneumonia 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 of Care Code 50906 Diagnoses Pneumonia J18.9 Chronic heart failure with preserved ejection fraction I50.32 Chronic hypoxemic respiratory failure J96.11 Atrial fibrillation with RVR I48.91 Coronary artery disease I25.10 PAD (peripheral artery disease) I73.9 NSTEMI (non-ST elevated myocardial infarction) I21.4
--- NOTE | 2025-04-03 15:32 | P.PN_ITS ---
Subjective 2 Subjective: 69-year-old male with history of severe COPD, pneumonia recently discharged and readmitted with pneumonia again has elevated troponin noted on admission. He has atrial fibrillation and right bundle branch block with an echocardiogram showing normal LV size systolic function and without wall motion abnormalities with an EF of 60% and grade 2/4 diastolic dysfunction. He had moderately elevated filling pressures and moderately increased left atrial size. Patient states his cough is better but with walking he had dyspnea on exertion that was marked with chest pressure and a little bit of chest pain. His troponins were flat at 83, 83, 80. Notably he had sepsis at the time of admission. I had him seen by Dr. Hidalgo earlier today to establish care due to severe COPD. He is also post evaluation by speech therapy who recommends regular diet and regular liquid but alternate liquids and solids upright teaspoon size feedings and up for 30 minutes post eating. Patient vomited into his left upper lung last visit and had a bad number treated with 10 days of outpatient fusion with ertapenem Overnight the patient's breathing status has significantly improved Vitals/I&O/Wt Last Vital Signs Temp 97.9 F 04/03/25 11:35 Pulse 72 04/03/25 15:31 Resp 18 04/03/25 15:31 BP 109/70 04/03/25 11:35 Pulse Ox 98 04/03/25 15:31 O2 Del Method Nasal Cannula 04/03/25 15:31 O2 Flow Rate 3 04/03/25 15:31 04/03/25 04/03/25 04/03/25 06:59 14:59 22:59 Intake Total 1300 / 3080 1840 / 1840 Balance 1300 / 3079 1840 / 1840 Weight last 48 hrs Weight 87.997 kg Weight 88.088 kg Weight 88.088 kg Physical Exam 2 Narrative: General Well-developed well-nourished male in no acute cardiopulmonary stress Oropharynx Mallampati 2 Neck supple no obvious swelling Cardiovascular regular rate and rhythm no murmurs rubs gallops Lungs good air movement mildly diminished in the upper lung rivera with scant left upper lung field crackles. Good air movement at the bases no wheezing Abdomen positive bowel tones soft nontender nondistended Calves 2+ bilateral pitting edema Skin warm and dry Hygiene good Data 04/02/25 05:00 04/03/25 04:19 Micro: Microbiology 04/02/25 09:36 Gram Stain - Final Sputum - Expectorated Sputum 04/01/25 14:36 Blood Culture - Preliminary Blood NEGATIVE TO DATE 04/01/25 14:33 Blood Culture - Preliminary Blood NEGATIVE TO DATE A&P Assessment and plan 1. Pneumonia: Was started on meropenem and Zyvox for possible hospital-acquired pneumonia as he was recently in the hospital treated for aspiration pneumonia and now has developed a new pneumonia and sepsis. Resistant pathogens are possible. Will send sputum for Gram stain culture and sensitivity as well as his blood cultures Expectorated sputum showed rare gram-positive cocci in pairs and rare gram- positive rods with few white blood cells. I am going to send in MRSA nasal swab. The last 1 on 03/15/2025 was negative. Discontinue Zyvox for now. Sepsis resolved patient stated 2. COPD with acute exacerbation: Discontinue steroid Patient is doing well on 3 L nasal 3. Acute on chronic hypoxic respiratory failure: Patient is chronically on 3 L oxygen with blood gas showing no CO2 retention 4. Pulmonary fibrosis: Severe bilateral emphysematous and fibrotic lungs 5. Diarrhea: Will send C. difficile toxin. Start probiotics 3 loose stools a day current 6. Coronary artery disease of [place] artery of [place] heart with stable angina pectoris: Troponin 80 typically runs 30. Hydrate beta-blockers and continue Eliquis for now patient is not having overt chest pain. He reports some chest heaviness EKG does not show acute AL but is difficult to interpret due to A-fib and right bundle branch block I have asked Dr. Estrada to see the patient regarding anginal-like chest pain and elevated troponin in the setting of sepsis with history of bypass surgery 5 vessel March 14, 2019 and stent 1989 Plan for Lexiscan nuclear on Saturday PDMP PDMP Reviewed: Not Reviewed Attestations 2 Medical Necessity Statement*: Patient is hospitalized for pneumonia and Lexiscan nuclear plan for Saturday 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 of Care Code 66195 Diagnoses Pneumonia J18.9 COPD with acute exacerbation J44.1 Acute on chronic hypoxic respiratory failure J96.21 Pulmonary fibrosis J84.10 Diarrhea R19.7 Coronary artery disease of [place] artery of [place] heart with stable angina pectoris I25.118 Coronary Disease-Associated Artery/Lesion type: [place] artery [place] vs. transplanted heart: [place] heart Associated angina: with stable angina Time Spent (min) 35
[2025-04-03 16:15] LABS: Thyroid Stimulating Hormone 1.31 uIU/mL (0.27-4.20)
[2025-04-03] MEDS: lactobacillus 1 Tablet 1 TAB PO (16:32)
[2025-04-03 17:59] LABS: MRSA PCR OZH (swab) NOT DETECTED (Negative)
--- NOTE | 2025-04-03 19:22 | USCV_ITS ---
Gabino Jones Age: 69 Gender: M : 1955 Exam Date: 04/03/2025 06:40 Ordering Phys: Eduardo Estrada MD ([email or web address]) Technologist: Александр Nails Exam Location: [facility] [place] Indication: nstemi BP: 143 / 71 HR: 70 Rhythm: Sinus Technical Quality: Adequate MEASUREMENTS (Male / Female) Normal Values 2D ECHO LV Diastolic Diameter PLAX 4.5 cm 4.2 - 5.9 / 3.9 - 5.3 cm IVS Diastolic Thickness 1.0 cm 0.6 - 1.0 / 0.6 - 0.9 cm IVS Systolic Thickness 1.4 cm LVPW Diastolic Thickness 0.9 cm 0.6 - 1.0 / 0.6 - 0.9 cm LVPW Systolic Thickness 1.4 cm LVOT Diameter 2.0 cm LV Ejection Fraction 2D Teich 40.0 % LV Ejection Fraction MOD 4C 45.3 % LV Ejection Fraction MOD 2C 47.7 % LV Ejection Fraction 2C AL 47.2 % LA Diameter 4.4 cm RA Systolic Volume 4C AL 72.4 ml RA Systolic Volume 4C MOD 74.0 ml Aorta at Sinotubular Diameter 2.8 cm IVC Diameter 1.8 cm M-MODE LA Ao Ratio MM 1.6 AV Cusp Separation MM 2.4 cm DOPPLER AV Peak Velocity 101.0 cm/s AV Area Cont Eq vti 3.0 cm squared AV Area Cont Eq pk 2.9 cm squared MV Peak Velocity 128.0 cm/s MV Area PHT 5.5 cm squared Mitral E to A Ratio 3.2 TV Peak Velocity 287.8 cm/s TR Peak Velocity 296.0 cm/s TR Peak Gradient 35.0 mmHg TR Mean Velocity 222.0 cm/s TR Mean Gradient 21.4 mmHg TR Velocity Time Integral 87.2 cm PV Peak Velocity 72.7 cm/s RV Ejection Time 0.3 s FINDINGS Left Ventricle Normal left ventricular cavity size. Normal left ventricular wall thickness. Paradoxical septal motion. Severe hypokinesis of the mid and basal inferior and inferolateral wall segments with mildly reduced ejection fraction of 47%. Indeterminate left ventricular diastolic function due to atrial fibrillation. Right Ventricle Mild enlargement of the right ventricular cavity. Paradoxical septal motion. Lower limits of normal right ventricular systolic function. Right Atrium Mild right atrial enlargement. Left Atrium Mild left atrial enlargement. IA Septum Normal appearance of the interatrial septum. Mitral Valve Trace mitral valve regurgitation.Normal mitral valve structure. No mitral valve stenosis or regurgitation. Aortic Valve Normal aortic valve structure. No aortic valve stenosis or regurgitation. Tricuspid Valve Mild tricuspid valve regurgitation. Normal pulmonary pressure. Pulmonic Valve Normal pulmonic valve structure. No pulmonic valve stenosis or regurgitation. Pericardium No pericardial effusion. Aorta Normal diameter of the aortic root and ascending thoracic aorta. IVC Normal IVC diameter. CONCLUSIONS Mildly reduced left ventricular systolic function. EF 47%. Paradoxical septal motion. Severe hypokinesis of the mid and basal inferior and inferolateral wall segments. Mild right ventricular enlargement. Paradoxical septal motion. Lower limits of normal right ventricular systolic function. Mild tricuspid valve regurgitation. Eduardo Estrada MD, FACC (Electronically Signed) Final Date: 03 April 2025 19:14 S
[2025-04-03 19:53] LABS: C.Diff PCR (Lab) NEGATIVE (Negative)
[2025-04-03] MEDS: ATORVASTATIN 10 MG TABLET PO (20:17)
[2025-04-04] VITALS (18 sets, daily range): BP systolic 108–166; BP diastolic 62–81; PULSE 60–94; RESP 17–20; TEMP 36.3–36.6; O2SAT 90–97
[2025-04-04] MEDS: lactobacillus 1 Tablet 1 TAB PO ×2 (05:24→16:29)
[2025-04-04] MEDS: DAPAGLIFLOZIN 10 MG TABLET PO (05:24)
[2025-04-04 05:36] LABS: Anion Gap 11.3 (5-19); Blood Urea Nitrogen 20 mg/dL (8-23); Calcium 8.4 mg/dL (8.5-10.5); Carbon Dioxide 26 mmol/L (22-29); Chloride 108 mmol/L (98-107); Creatinine Clr Calc Pharmacy 76.8044; Glucose 78 mg/dL (65-115); Osmolality Calculated 293 mOsm/kg (285-295); Potassium 4.3 mmol/L (3.5-5.1); Sodium 141 mmol/L (136-145)
[2025-04-04] MEDS: meropenem 1,000 mg SDV 1000 MG IVP (07:15)
--- NOTE | 2025-04-04 13:09 | P.PN_ITS ---
Subjective 2 Subjective: 69-year-old male with history of severe COPD, pneumonia recently discharged and readmitted with pneumonia again has elevated troponin noted on admission. He has atrial fibrillation and right bundle branch block with an echocardiogram showing normal LV size systolic function and without wall motion abnormalities with an EF of 60% and grade 2/4 diastolic dysfunction. He had moderately elevated filling pressures and moderately increased left atrial size. Patient states his cough is better but with walking he had dyspnea on exertion that was marked with chest pressure and a little bit of chest pain. His troponins were flat at 83, 83, 80. Notably he had sepsis at the time of admission. Patient reports dyspnea on exertion just walking around the bed. His cough is with donaldson phlegm occasional blood. Patient states his breathing did not return to baseline after he left the hospital but was improving then acutely worsened. He states he is better now since admission but again not at baseline Vitals/I&O/Wt Last Vital Signs Temp 97.7 F 04/04/25 11:52 Pulse 80 04/04/25 11:52 Resp 17 04/04/25 11:52 BP 146/71 04/04/25 11:52 Pulse Ox 90 04/04/25 11:52 O2 Del Method Nasal Cannula 04/04/25 11:52 O2 Flow Rate 3 04/04/25 11:19 04/03/25 04/04/25 04/04/25 22:59 05:59 14:59 Intake Total 1088.333 / 2928.333 840 / 840 Balance 1088.333 / 2928.333 840 / 840 Weight last 48 hrs Weight 87.997 kg Weight 87.997 kg Physical Exam 2 Narrative: General Well-developed well-nourished male in no acute cardiopulmonary stress Cardiovascular regular rate and rhythm no murmurs rubs gallops Lungs good air movement mildly diminished in the upper lung rivera with mild left lower lung field crackles. He has prolonged extra phase and diffuse wheezing today throughout Abdomen positive bowel tones soft nontender nondistended Calves 2+ to 3 bilateral pitting edema Skin warm and dry Hygiene good Data 04/02/25 05:00 04/04/25 04:33 Micro: Microbiology 04/02/25 09:36 Gram Stain - Final Sputum - Expectorated Sputum Sputum Culture - Preliminary Gram Negative Rods A&P Assessment and plan 1. Pneumonia: Patient is just on meropenem now. MRSA was negative and vancomycin was stopped. Sputum had gram-negative rods without specific pathogen at this time. The Gram stain had rare gram-positive cocci and rare gram-positive rods but sputum grew gram-negative rods 2. COPD with acute exacerbation: Resume low-dose steroids at prednisone 20 mg daily. I think he is retaining fluid as a cause of his acute wheezing compared to yesterday will resume home furosemide 40 mg daily first dose now add potassium chloride 10 mill colons p.o. daily Patient is doing well on 3 L nasal 3. Acute on chronic hypoxic respiratory failure: Patient is chronically on 3 L oxygen with blood gas showing no CO2 retention 4. Pulmonary fibrosis: Severe bilateral emphysematous and fibrotic lungs 5. Diarrhea: C. difficile toxin was negative 6. Coronary artery disease of [place] artery of [place] heart with stable angina pectoris: Troponin 80 typically runs 30. Hydrate beta-blockers and continue Eliquis for now patient is not having overt chest pain. He reports some chest heaviness EKG does not show acute FL but is difficult to interpret due to A-fib and right bundle branch block I have asked Dr. Estrada to see the patient regarding anginal-like chest pain and elevated troponin in the setting of sepsis with history of bypass surgery 5 vessel March 14, 2019 and stent 1990 Plan for [facility] nuclear on Saturday PDMP PDMP Reviewed: Not Reviewed Attestations 2 Medical Necessity Statement*: pt remains in the hospital for IV abx and planned stress test in the morning. will diurese additional 1-2 midnight. 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 of Care Code Acute Code for [facility] Diagnoses Pneumonia J18.9 COPD with acute exacerbation J44.1 Acute on chronic hypoxic respiratory failure J96.21 Pulmonary fibrosis J84.10 Diarrhea R19.7 Coronary artery disease of [place] artery of [place] heart with stable angina pectoris I25.118 Coronary Disease-Associated Artery/Lesion type: [place] artery [place] vs. transplanted heart: [place] heart Associated angina: with stable angina
--- NOTE | 2025-04-04 15:49 | P.PN_ITS ---
Subjective 2 Subjective: still with SOB with little movement Vitals/I&O/Wt Last Vital Signs Temp 97.7 F 04/04/25 11:52 Pulse 79 04/04/25 15:06 Resp 18 04/04/25 15:06 BP 146/71 04/04/25 11:52 Pulse Ox 96 04/04/25 15:06 O2 Del Method Nasal Cannula 04/04/25 15:06 O2 Flow Rate 3 04/04/25 15:06 04/04/25 04/04/25 04/04/25 05:59 14:59 22:59 Intake Total 840 / 840 Balance 840 / 840 Weight last 48 hrs Weight 194 lb Weight 194 lb Physical Exam 2 Narrative: General: in NAD Neck: No jugular venous distention or carotid bruits Heart: irreg irreg Lungs: mild exp wheezes Extremities: 1-2+ leg edema misael Neuro: Alert and oriented x 3 Data 04/02/25 05:00 04/04/25 04:33 Micro: Microbiology 04/02/25 09:36 Gram Stain - Final Sputum - Expectorated Sputum Sputum Culture - Preliminary Gram Negative Rods A&P Assessment and plan 1. Pneumonia: Tx per Hospitalist and Pulmonology Slow progress 2. Chronic heart failure with preserved ejection fraction: vol overloaded Lasix 20mg IV x 1 now and resume lasix 40mg po daily 3. Chronic hypoxemic respiratory failure: 4. Atrial fibrillation with RVR: Rate controlled Dig level good at 0.8 On Eliquis 5. Coronary artery disease: h/o CABG 2019 No cp today 6. PAD (peripheral artery disease): s/p stenting LLE planned intervention for RLE at outside facility no active LE ischemia 7. NSTEMI (non-ST elevated myocardial infarction): Due to demand ischemia Need to rule out cobstructive CAD with Lexiscan If actively wheezing in am, would postpone Lexiscan to saturday PDMP PDMP Reviewed: Not Reviewed Attestations 2 Medical Necessity Statement*: needs 2 more midnights in hospital due to PNA and rspiratory failure 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 of Care Code 23935 Diagnoses Pneumonia J18.9 Chronic heart failure with preserved ejection fraction I50.32 Chronic hypoxemic respiratory failure J96.11 Atrial fibrillation with RVR I48.91 Coronary artery disease I25.10 PAD (peripheral artery disease) I73.9 NSTEMI (non-ST elevated myocardial infarction) I21.4
--- NOTE | 2025-04-04 15:56 | ECG_ITS ---
[employer] Test Date: 2025-04-05 Pat Name: Gabino Jones Department: Room: 254 Gender: Male Wax Room Supervisor: : 1955 Requested By: Eduardo Estrada Order Number: [id number] Manuel Barton MD: Eduardo Estrada M.D. Interpretive Statements Procedure: A total of 0.4 mg of Lexiscan was infused over 20 seconds. The stress phase was continued for a total of 5 minutes. Sestamibi was injected 20 seconds after the Lexiscan infusion. Findings: The patient's resting blood pressure was 128/91 mmHg with a heart rate of 71 bpm. The blood pressure decreased to 103/56 mmHg and heart rate increased to 95 bpm. At the end of recovery the patient's blood pressure was 125/58 with a heart rate of 89 bpm. The resting EKG showed atrial fibrillation with controlled rate with a heart rate of 71 bpm with a right bundle branch block and nonspecific T wave abnormality. There was also evidence of an old inferior wall myocardial infarction. There were occasional PVCs throughout the stress test there were no new ST or T wave abnormalities during the stress test Conclusion: 1. Normal EKG response to Lexiscan infusion without EKG evidence of ischemia 2. No Lexiscan induced chest pain 3. Normal blood pressure and heart rate response. 4. Frequent PVCs during stress test 4. Nuclear myocardial perfusion scan pending; see separate report. Electronically Signed On 04-05-2025 13:21:25 PERMACULTURE DESIGNER by Eduardo Estrada M.D. [email or web address]
[2025-04-04] MEDS: FUROsemide 10 mg/mL SDV 2mL 20 MG IVP (16:29)
[2025-04-04] MEDS: ATORVASTATIN 10 MG TABLET PO (20:34)
[2025-04-05] VITALS (15 sets, daily range): BP systolic 111–134; BP diastolic 54–68; PULSE 64–82; RESP 16–21; TEMP 36.2–36.4; O2SAT 90–97; BMI 28.8
[2025-04-05] MEDS: DAPAGLIFLOZIN 10 MG TABLET PO (06:14)
[2025-04-05] MEDS: lactobacillus 1 Tablet 1 TAB PO ×2 (06:18→17:17)
--- NOTE | 2025-04-05 08:54 | PC.SOCIAL ---
IMM Update Pg. 2 of IMM updated and reviewed with patient, who verbalized understanding. Copy provided at bedside.
[2025-04-05 10:46] LABS: Hematocrit 31.9 % (37-53); Hemoglobin 9.90 g/dL (11.27-16.99); Mean Corpuscular HGB Conc 31.0 g/dL (30-55); Mean Corpuscular Hemoglobin 27.1 pg (27-33); Mean Corpuscular Volume 87.4 fl (82-101); Nucleated Red Blood Cells % 0 %; Platelet Count 197 10^3/cmm (157-399); Red Blood Count 3.65 10^6/uL (3.85-5.65); White Blood Count 5.36 10^3/uL (3.29-11.43)
[2025-04-05 11:02] LABS: Alanine Aminotransferase 10 U/L (0-41); Albumin Level 3.1 g/dL (3.5-5.2); Alkaline Phosphatase 73 U/L (40-130); Anion Gap 12.1 (5-19); Aspartate Amino Transferase 8 U/L (0-40); Blood Urea Nitrogen 18 mg/dL (8-23); Calcium 8.4 mg/dL (8.5-10.5); Carbon Dioxide 29 mmol/L (22-29); Chloride 98 mmol/L (98-107); Creatinine Clr Calc Pharmacy 86.6907; Globulin 3.0 g/dL (1.3-4.6); Glucose 248 mg/dL (65-115); Osmolality Calculated 290 mOsm/kg (285-295); Potassium 4.1 mmol/L (3.5-5.1); Sodium 135 mmol/L (136-145); Total Protein 6.1 g/dL (6.6-8.7)
[2025-04-05] MEDS: insulin glargine 100 units/1 mL 10 UNIT SUBCUT (12:22)
--- NOTE | 2025-04-05 13:50 | P.PN_ITS ---
Subjective 2 Subjective: Hospital course, labs appreciated. On examination patient sitting up in chair. States breathing is slightly better but still having significant difficulty in breathing on minimal exertion. Currently on 3 L oxygen supplementation. Denies any chest pain. States his difficulty in breathing gets worse while ambulating from bed to the bathroom and has been getting worse over the last 2 to 3 months mostly over the last 3 weeks. Has been compliant with his medications. Finished a course of daily infusion of IV or ertapenem as an outpatient recently. Vitals/I&O/Wt Last Vital Signs Temp 97.6 F 04/05/25 11:10 Pulse 75 04/05/25 12:43 Resp 16 04/05/25 12:43 BP 111/65 04/05/25 11:10 Pulse Ox 96 04/05/25 12:43 O2 Del Method Nasal Cannula 04/05/25 12:43 O2 Flow Rate 3 04/05/25 12:43 04/04/25 04/05/25 04/05/25 22:59 06:59 14:59 Intake Total 360 / 1200 480 / 1680 360 / 360 Output Total 750 / 750 Balance 360 / 1200 -270 / 930 360 / 360 Weight last 48 hrs Weight 91.127 kg Weight 87.997 kg Physical Exam 2 Narrative: General Well-developed well-nourished male in no acute cardiopulmonary stress Cardiovascular regular rate and rhythm no murmurs rubs gallops Lungs good air movement mildly diminished in the upper lung rivera with mild left lower lung field crackles. He has prolonged extra phase and diffuse wheezing today throughout Abdomen positive bowel tones soft nontender nondistended Calves 2+ to 3 bilateral pitting edema Skin warm and dry Hygiene good Data 04/05/25 10:35 04/05/25 10:35 Micro: Microbiology 04/02/25 09:36 Gram Stain - Final Sputum - Expectorated Sputum Sputum Culture - Final Pseudomonas aeruginosa A&P Assessment and plan 1. Pneumonia: Patient is just on meropenem now. MRSA was negative and vancomycin was stopped. Sputum had gram-negative rods without specific pathogen at this time. The Gram stain had rare gram-positive cocci and rare gram-positive rods but sputum grew gram-negative rods 2. COPD with acute exacerbation: Resume low-dose steroids at prednisone 20 mg daily. I think he is retaining fluid as a cause of his acute wheezing compared to yesterday will resume home furosemide 40 mg daily first dose now add potassium chloride 10 mill colons p.o. daily Patient is doing well on 3 L nasal 3. Acute on chronic hypoxic respiratory failure: Patient is chronically on 3 L oxygen with blood gas showing no CO2 retention 4. Pulmonary fibrosis: Severe bilateral emphysematous and fibrotic lungs 5. Diarrhea: C. difficile toxin was negative 6. Coronary artery disease of [place] artery of [place] heart with stable angina pectoris: Troponin 80 typically runs 30. Hydrate beta-blockers and continue Eliquis for now patient is not having overt chest pain. He reports some chest heaviness EKG does not show acute ID but is difficult to interpret due to A-fib and right bundle branch block I have asked Dr. Estrada to see the patient regarding anginal-like chest pain and elevated troponin in the setting of sepsis with history of bypass surgery 5 vessel March 14, 2019 and stent 1990 Plan for Lexiscan nuclear on Saturday Plan: Plan for the day: Shortness of breath most likely in setting of congestive heart failure and COPD exacerbation. Pneumonia seems to be resolving. Finish course of IV or ertapenem recently for Pseudomonas pneumonia. For now continue with Levaquin to finish a 5 to 7-day course. Oxygen supplementation keeping saturation over 90%. Fluid restriction to less than 1500 cc. IV Lasix 40 mg daily. Echocardiogram shows a new EF of 47% with regional wall motion normality. Cardiology on board. Plan for Lexiscan stress test today. Awaiting results. Continue with home dose of Eliquis and Plavix. Start on Pulmicort twice daily. Continue with DuoNeb 4 times daily. Prednisone oral 20 mg daily. Goal blood pressure less than 140/90 mmHg. Heart rate stable. Continue with current dose of metoprolol, digoxin. Depending on blood pressures can start on low-dose of STACY/ARB. Full code Cardiac diet Protonix for PUD prophylaxis Eliquis will be sufficient for DVT prophylaxis PDMP PDMP Reviewed: Not Reviewed Attestations 2 Medical Necessity Statement*: Requires further hospitalization for management of shortness of breath in setting of congestive heart failure and COPD exacerbation in a patient with new EF of 45%. Diagnoses Pneumonia J18.9 COPD with acute exacerbation J44.1 Acute on chronic hypoxic respiratory failure J96.21 Pulmonary fibrosis J84.10 Diarrhea R19.7 Coronary artery disease of [place] artery of [place] heart with stable angina pectoris I25.118 Coronary Disease-Associated Artery/Lesion type: [place] artery [place] vs. transplanted heart: [place] heart Associated angina: with stable angina
--- NOTE | 2025-04-05 15:56 | NMCV_ITS ---
NM annie perf SPECT r/s* [id number] Gabino Jones Age: 69 Gender: M : 1955 Exam Date: 04/05/2025 06:40 Ordering Phys: Eduardo Estrada MD ([email or web address]) Technologist: ROMA Buitrago Exam Location: [facility] Indications: cp STRESS TEST Please see separate stress test report in [facility] for full findings IMAGE PROTOCOL Rest/Stress 1 Lexiscan Day Radiopharmaceutical Dose (mCi) Administration Site Administered by Rest: Tc-99m 10.7 IV ROMA Chopra Sestamibi Stress:Tc-99m 33 IV ROMA Buitrago Sestamimaria m Rest: 05-Apr-2025 60 Discovery 630 Stress: 05-Apr-2025 30 Discovery 630 0.4mg Lexiscan. Images obtained in supine and prone position. SPECT RESULTS Technical Quality: Good Raw Data Analysis: Normal Image Corrections: No attenuation or motion correction applied Summed Stress Score: 9 Summed Rest Score: 4 Summed Difference Score: 5 PERFUSION FINDINGS There is a large, severe predominantly fixed perfusion defect in the inferior wall consitent with infarction with a small amount of guy-infarct ischemia. FUNCTIONAL RESULTS (calculated via Gated SPECT) Stress Image LV EF (%): 59 Stress EDV (mL):119 TID: 1.19 Stress ESV (mL):49 FUNCTIONAL FINDINGS: Normal LV cavity size. Mid and basal inferior wall hypokinesis with normal EF 59%. IMPRESSIONS Large inferior wall infarction with a small amount of guy-infarct ischemia. Mid and basal inferior wall hypokinesis with normal EF 59%. Eduardo Estrada MD, FACC (Electronically Signed) Final Date: 05 April 2025 13:15 S
--- NOTE | 2025-04-05 18:32 | P.PN_ITS ---
Subjective 2 Subjective: Gabino Jones Sr is a 69 year old male with past medical history of severe COPD with multiple admissions, aspiration pneumonia's seen by infectious disease recently comes into the hospital with increased cough. His oxygen is 3 L/min currently denies any sleep apnea. He has been on outpatient ertapenem infusions, seen by infectious disease. Lives in a trailer. He was diagnosed with sepsis this admission due to cough and lactic acidosis 5. Started on stress dose steroids antibiotics and fluids. Meropenem and Zyvox given for hospital-acquired pneumonia due to history of recent admission. Gram stain and blood cultures pending. Follow-up COPD exacerbation steroids were continued as well as breathing treatments. Due to troponins being high and complaining of some chest tightness, cardiology has been consulted. 04/05/2025 Still complains of wheezing and coughing. Due to troponin elevation underwent stress testing today. Vitals/I&O/Wt Last Vital Signs Temp 97.4 F L 04/05/25 15:31 Pulse 81 04/05/25 15:31 Resp 20 H 04/05/25 15:31 BP 125/64 04/05/25 15:31 Pulse Ox 91 04/05/25 15:31 O2 Del Method Nasal Cannula 04/05/25 15:31 O2 Flow Rate 3 04/05/25 15:13 04/05/25 04/05/25 04/05/25 06:59 14:59 22:59 Intake Total 480 / 1680 360 / 360 480 / 840 Output Total 750 / 750 Balance -270 / 930 360 / 360 480 / 840 Weight last 48 hrs Weight 200 lb 14.4 oz Weight 194 lb Physical Exam 2 Narrative: Per RN General: alert, NAD HEENT: EOMI Pulmonary: Mild inspiratory wheezes Cardiovascular: rrr, nl s1s2, Abdomen: soft, nt, nd, no r/g, Extremities: no edema Neurologic: grossly intact Agree with above exam Data 04/05/25 10:35 04/05/25 10:35 Micro: Microbiology 04/02/25 09:36 Gram Stain - Final Sputum - Expectorated Sputum Sputum Culture - Final Pseudomonas aeruginosa A&P Assessment and plan 1. COPD (chronic obstructive pulmonary disease): 2. Bilateral pneumonia: Plan: # Acute COPD exacerbation -Agree with current bronchodilators he is improving. Continue albuterol nebulizer along with Spiriva. # Severe end-stage COPD-group E-acute exacerbation - Will add Brovana to budesonide nebulizers to use twice daily # Acute on chronic respiratory failure # Aspiration pneumonia-possible although recent modified barium swallow study had been negative. Chest CT performed recently reviewed by me personally reviewed and interpreted showed dense consolidation with cavitation severe bullous emphysematous disease. Sputum cultures grew ESBL E. coli and was discharged with IV ertapenem. I reviewed his CT scan personally myself from 03/15/2025 that showed dense cavitary pneumonia on the left upper lobe. I will repeat a CT scan this admission to determine the need for a bronchoscopy in the future after cardiac clearance is obtained and only if needed.. Patient is on aspirin and Plavix which cannot be held due to his possible non-STEMI Severe centrilobular and paraseptal emphysema. There has been some improvement in left upper lobe airspace disease. From CT 04/02/2025.I reviewed the CT myself, interpretted findings independently and explaining findings. # Severe emphysematous changes mixed with pulmonary fibrosis seen on CT PE # Possible non-STEMI versus stress-induced elevation of troponins. Medical decision making level-high High MDM includes number and complexity of problems actively addressed during encounter, amount and/or complexity of data reviewed/ordered [ previous or external records, resulted lab(s)/test(s), ordered lab(s)/test(s), independent historian, independent test interpretation and other healthcare professional discussion] and described risk of complication, morbidity or mortality of management as documented This documentation was created by [employer] recreation activities coordinator software (known for inherent recreation activities coordinator error). Every effort was made to assure accuracy of recreation activities coordinator. Any obvious errors or omissions should be clarified with the author of the document Telemedicine Consent Patient seen today via Telemedicine by agreement and consent of patient.? Telemedicine technology used during the visit includes audio and, as available, review of images.? The patient encounter is appropriate and reasonable under the circumstances given the patient?s particular presentation at this time.? The patient has been advised of the potential risks and limitations of this mode of treatment (including but not limited to the absence of in-person examination) and has agreed to be treated in a remote fashion in spite of them.? Any, and all, of the patient?s/patient?s family?s questions on this issue have been answered and I have made no promises or guarantees to the patient. PDMP PDMP Reviewed: Not Reviewed Attestations 2 Medical Necessity Statement*: COPD exacerbation or pneumonia 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 of Care Code 43986 Diagnoses COPD (chronic obstructive pulmonary disease) J44.9 Bilateral pneumonia J18.9
--- NOTE | 2025-04-05 19:17 | P.PN_ITS ---
Subjective 2 Subjective: still SOB walking around room. Still with pedal edema Vitals/I&O/Wt Last Vital Signs Temp 97.4 F L 04/05/25 15:31 Pulse 81 04/05/25 15:31 Resp 20 H 04/05/25 15:31 BP 125/64 04/05/25 15:31 Pulse Ox 91 04/05/25 15:31 O2 Del Method Nasal Cannula 04/05/25 15:31 O2 Flow Rate 3 04/05/25 15:13 04/05/25 04/05/25 04/05/25 06:59 14:59 22:59 Intake Total 480 / 1680 360 / 360 480 / 840 Output Total 750 / 750 Balance -270 / 930 360 / 360 480 / 840 Weight last 48 hrs Weight 200 lb 14.4 oz Weight 194 lb Physical Exam 2 Narrative: General: in NAD Neck: No jugular venous distention or carotid bruits Heart: irreg irreg Lungs: mild exp wheezes Extremities: 1-2+ leg edema misael Neuro: Alert and oriented x 3 Data 04/05/25 10:35 04/05/25 10:35 Micro: Microbiology 04/02/25 09:36 Gram Stain - Final Sputum - Expectorated Sputum Sputum Culture - Final Pseudomonas aeruginosa Other data: Tele - afib, HR 80s A&P Assessment and plan 1. Pneumonia: Tx per Hospitalist and Pulmonology 2. Atrial fibrillation with RVR: Rate controlled Dig level good at 0.8 Continue Eliquis, digoxin and metoprolol tartrate 37.5mg bid 3. Coronary artery disease: h/o CABG 2018 Nuclear stress test 06/2023 - large inferior infarct with a small amount of guy- infarct ischemia, EF 58% Nuclear stress test 04/05/25 - no change anterior chest pressure on admission with very mild trop leak likely due to demand and acute CHF exacerbation Continue plavix and atorvastatin No cardiac cath recommended at this time - will continue to advance medical treatment for lung disease per Pulmonology and CHF treatment and will have Dr. Stern resume care in am 4. PAD (peripheral artery disease): s/p stenting LLE recently at [facility] in [place] planned intervention for RLE on nonurgent basis no active LE ischemia 5. NSTEMI (non-ST elevated myocardial infarction): Due to demand ischemia, not ACS 6. Acute on chronic heart failure with mildly reduced ejection fraction (HFmrEF): Signs of inferior/inferolateral VA on echo and stress test with EF 47-59% Very elevated NTpro BNP on admisstion - 14K, much higher then his baseline Increase lasix to 40mg IV bid start Entresto 24/26mg bid Continue Farxiga and metoprolol recheck ntprobnp and bmp in am I/Os not accurately recorded today strict I/Os requested 7. Acute respiratory failure: Most likely due to combination of COPD exac and CHF exac will continue to diurese and advance GDMT Plan: Dr. Stern to take over cardiac care in am PDMP PDMP Reviewed: Not Reviewed Attestations 2 Medical Necessity Statement*: needs 2 more midnights for resiratory failure 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 of Care Code 16803 Diagnoses Pneumonia J18.9 Atrial fibrillation with RVR I48.91 Coronary artery disease I25.10 PAD (peripheral artery disease) I73.9 NSTEMI (non-ST elevated myocardial infarction) I21.4 Acute on chronic heart failure with mildly reduced ejection fraction (HFmrEF) I50.23 Acute respiratory failure J96.00
--- NOTE | 2025-04-05 19:25 | PC.NURSE ---
Updated patient who states that he was been walking to the bathroom to void, about 5 or 6 times today, that he needs to use his urinal so we can manage his volume.
[2025-04-05] MEDS: FUROsemide 10 mg/mL SDV 4mL 40 MG IVP (20:41)
[2025-04-05] MEDS: ATORVASTATIN 10 MG TABLET PO (20:41)
[2025-04-06] VITALS (11 sets, daily range): BP systolic 70–105; BP diastolic 48–70; PULSE 57–87; RESP 16–18; TEMP 36.3–36.8; O2SAT 93–97
[2025-04-06] MEDS: DAPAGLIFLOZIN 10 MG TABLET PO (04:31)
[2025-04-06] MEDS: lactobacillus 1 Tablet 1 TAB PO ×2 (04:33→17:06)
[2025-04-06 05:22] LABS: Hematocrit 33.7 % (37-53); Hemoglobin 10.50 g/dL (11.27-16.99); Mean Corpuscular HGB Conc 31.2 g/dL (30-55); Mean Corpuscular Hemoglobin 27.3 pg (27-33); Mean Corpuscular Volume 87.5 fl (82-101); Nucleated Red Blood Cells % 0 %; Platelet Count 234 10^3/cmm (157-399); Red Blood Count 3.85 10^6/uL (3.85-5.65); White Blood Count 4.24 10^3/uL (3.29-11.43)
[2025-04-06 05:43] LABS: Alanine Aminotransferase 10 U/L (0-41); Albumin Level 3.3 g/dL (3.5-5.2); Alkaline Phosphatase 72 U/L (40-130); Anion Gap 11.8 (5-19); Aspartate Amino Transferase 9 U/L (0-40); Blood Urea Nitrogen 20 mg/dL (8-23); Calcium 8.6 mg/dL (8.5-10.5); Carbon Dioxide 32 mmol/L (22-29); Chloride 100 mmol/L (98-107); Creatinine Clr Calc Pharmacy 96.7084; Globulin 2.7 g/dL (1.3-4.6); Glucose 101 mg/dL (65-115); Osmolality Calculated 293 mOsm/kg (285-295); Potassium 3.8 mmol/L (3.5-5.1); Sodium 140 mmol/L (136-145); Total Protein 6.0 g/dL (6.6-8.7)
[2025-04-06 05:55] LABS: NT Pro B Type Natriuretic Pept 4817 pg/mL (0-125)
[2025-04-06] MEDS: FUROsemide 10 mg/mL SDV 4mL 40 MG IVP (07:03)
[2025-04-06] MEDS: ARFORMOTEROL 15 MCG/2 ML NEB INHALATION ×2 (08:38→20:38)
--- NOTE | 2025-04-06 11:33 | P.PN_ITS ---
Subjective 2 Subjective: Blood pressure has been soft this morning, reducing metoprolol to tartrate to 25 mg twice daily, switching IV Lasix to oral starting tomorrow. BNP significantly improved, 4817, down from over 14,000 on admission. Vitals/I&O/Wt Last Vital Signs Temp 97.6 F 04/06/25 07:36 Pulse 74 04/06/25 08:38 Resp 16 04/06/25 08:38 BP 98/59 04/06/25 07:36 Pulse Ox 94 04/06/25 08:38 O2 Del Method Nasal Cannula 04/06/25 08:38 O2 Flow Rate 3 04/06/25 08:38 04/05/25 04/06/25 04/06/25 22:59 06:59 14:59 Intake Total 480 / 840 240 / 240 Output Total 800 / 1300 500 / 1300 Balance -320 / -460 -500 / -460 240 / 240 Weight last 48 hrs Weight 197 lb 3 oz Weight 200 lb 14.4 oz Physical Exam 2 Const: COMMON NORMALS: no acute distress and patient oriented x3 GENERAL APPEARANCE: cooperative and comfortable ORIENTATION/CONSCIOUSNESS: Yes awake, Yes oriented to person, Yes oriented to place and Yes oriented to time Chest: COMMONS NORMALS: normal inspection of the chest and normal palpation of entire chest wall CHEST: Yes Symmetrical chest wall rise Resp: COMMON NORMALS: normal respiratory effort, No retractions, No use of accessory muscles and clear to auscultation bilaterally EFFORT & INSPECTION: Yes symmetric chest movement AUSCULTATION: clear to auscultation bilaterally Cardio: COMMON NORMALS: regular rate, regular rhythm, S1 normal heart sound present, S2 normal heart sound present, No gallops present (Cardio), No clicks present (Cardio), No murmurs present (Cardio) and No rub (Cardio) RATE: r egular rate RHYTHM: regular rhythm HEART SOUNDS: S1 normal heart sound present and S2 normal heart sound present PERIPHERAL PULSES: radial pulses present Extremity: COMMON NORMALS: no pedal edema Neuro: COMMON NORMALS: patient oriented x3 and moves all extremities S ENSORIUM/ORIENTATION: Yes oriented to person, Yes oriented to place and Yes oriented to time Data 04/06/25 05:06 04/06/25 05:06 Micro: Microbiology 04/02/25 09:36 Gram Stain - Final Sputum - Expectorated Sputum Sputum Culture - Final Pseudomonas aeruginosa A&P Assessment and plan 1. Congestive heart failure: 2. Coronary artery disease: 3. Atrial fibrillation: 4. Pneumonia of left upper lobe due to Pseudomonas species: Plan: He had CABG in 2019, for the last year he has had some exertional shortness of breath, gradually worsening in that timeframe. He has been admitted to the hospital several times in March for heart failure symptoms. The Lexiscan stress test appeared to show the same ischemic burden, given the worsening of symptoms and the decreased LVEF which is new, recommending coronary angiogram. He is on apixaban which will need to be held prior to the procedure. Will plan on morning. Continue Plavix, Entresto, Lasix 40 mg twice daily, digoxin 250 mcg daily, statin. Reducing metoprolol due to hypotension. PDMP PDMP Reviewed: Not Reviewed Attestations 2 Medical Necessity Statement*: Ischemic workup 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 of Care Code Acute Code for [facility] Diagnoses Congestive heart failure I50.9 Coronary artery disease I25.10 Atrial fibrillation I48.91 Pneumonia of left upper lobe due to Pseudomonas species J15.1 Laterality: left Lung location: upper lobe of lung
--- NOTE | 2025-04-06 11:59 | P.PN_ITS ---
Subjective 2 Subjective: No acute events overnight. Patient denies any nausea, vomiting, headache. Sitting comfortably in chair today. States feeling slightly better with his dyspnea on exertion today. Still getting short of breath on exertion though. Denies any chest pain. Blood pressure soft with mostly running in mid 90s systolic. Patient states it is normal for him for his blood pressures to be running soft. Vitals/I&O/Wt Last Vital Signs Temp 97.6 F 04/06/25 11:40 Pulse 67 04/06/25 11:40 Resp 17 04/06/25 11:40 BP 92/48 04/06/25 11:40 Pulse Ox 97 04/06/25 11:40 O2 Del Method Nasal Cannula 04/06/25 11:40 O2 Flow Rate 3 04/06/25 08:38 04/05/25 04/06/25 04/06/25 22:59 06:59 14:59 Intake Total 480 / 840 240 / 240 Output Total 800 / 800 500 / 1300 Balance -320 / 40 -500 / -460 240 / 240 Weight last 48 hrs Weight 89.443 kg Weight 91.127 kg Physical Exam 2 Narrative: General Well-developed well-nourished male in no acute cardiopulmonary stress Cardiovascular regular rate and rhythm no murmurs rubs gallops Lungs good air movement mildly diminished in the upper lung rivera with mild left lower lung field crackles. He has prolonged extra phase and diffuse wheezing today throughout Abdomen positive bowel tones soft nontender nondistended Calves 2+ to 3 bilateral pitting edema Skin warm and dry Hygiene good Data 04/06/25 05:06 04/06/25 05:06 Micro: Microbiology 04/02/25 09:36 Gram Stain - Final Sputum - Expectorated Sputum Sputum Culture - Final Pseudomonas aeruginosa A&P Assessment and plan 1. Acute on chronic heart failure with mildly reduced ejection fraction (HFmrEF): 2. Coronary artery disease of redd[place] artery of redding heart with stable angina pectoris: Troponin 80 typically runs 30. Hydrate beta-blockers and continue Eliquis for now patient is not having overt chest pain. He reports some chest heaviness EKG does not show acute [place] but is difficult to interpret due to A-fib and right bundle branch block I have asked Dr. Estrada to see the patient regarding anginal-like chest pain and elevated troponin in the setting of sepsis with history of bypass surgery 5 vessel March 14, 2019 and stent 1989 Plan for Lexiscan nuclear on Saturday 3. Positive cardiac stress test: 4. Pneumonia of left upper lobe due to Pseudomonas species: Recently finished course of IV antibiotics as an outpatient. Currently on Levaquin. Will finish a 5-day course with last dose on 04/09. 5. COPD with acute exacerbation: Resume low-dose steroids at prednisone 20 mg daily. I think he is retaining fluid as a cause of his acute wheezing compared to yesterday will resume home furosemide 40 mg daily first dose now add potassium chloride 10 mill colons p.o. daily Patient is doing well on 3 L nasal 6. Acute on chronic hypoxic respiratory failure: Patient is chronically on 3 L oxygen with blood gas showing no CO2 retention 7. Diarrhea: C. difficile toxin was negative 8. Atrial fibrillation: Plan: Plan for the day: Shortness of breath most likely in setting of congestive heart failure and COPD exacerbation. Pneumonia seems to be resolving. Finish course of IV or ertapenem recently for Pseudomonas pneumonia. For now continue with Levaquin to finish a 5 to 7-day course. Oxygen supplementation keeping saturation over 90%. Fluid restriction to less than 1500 cc. Appreciate Lexiscan stress test. Concern for large fixed infarct area along with mild guy-infarct ischemia in RCA territory. Appreciate echocardiogram showing new low EF with regional wall motion abnormality in inferior lateral area. Care discussed in detail with cardiology team. Possible plan for IV diuresis for now and then cardiac angiogram in next 24 to 48 hours. For now continue with Plavix. In anticipation for possible cardiac angiogram will switch from Eliquis to Lovenox 1 mg/kg body weight every 12 hourly. Continue with IV Lasix 40 mg daily. Appreciate cardiology recommendations. Due to soft blood pressures metoprolol changed to 25 mg twice daily. Entresto 0.5 mg twice daily. Will uptitrate as per goal blood pressures. Continue digoxin. Continue with current inhalation and nebulization treatment as per pulmonary team. Prednisone 20 mg daily. Continue on Levaquin to finish a 5-day course with last dose on 04/09. Full code Cardiac diet Protonix for PUD prophylaxis Eliquis will be sufficient for DVT prophylaxis PDMP PDMP Reviewed: Not Reviewed Attestations 2 Medical Necessity Statement*: Requires further hospitalization for management of shortness of breath in setting of congestive heart failure, further ACS workup for angina equivalent with positive cardiac stress test, COPD Diagnoses Acute on chronic heart failure with mildly reduced ejection fraction (HFmrEF) I50.23 Coronary artery disease of redd[place] artery of redding heart with stable angina pectoris I25.118 Coronary Disease-Associated Artery/Lesion type: [place]ing artery [place] vs. transplanted heart: redding heart Associated angina: with stable angina Positive cardiac stress test R94.39 Pneumonia of left upper lobe due to Pseudomonas species J15.1 Laterality: left Lung location: upper lobe of lung COPD with acute exacerbation J44.1 Acute on chronic hypoxic respiratory failure J96.21 Diarrhea R19.7 Atrial fibrillation I48.91
[2025-04-06 15:22] LABS: Anion Gap 14.0 (5-19); Blood Urea Nitrogen 23 mg/dL (8-23); Calcium 8.5 mg/dL (8.5-10.5); Carbon Dioxide 30 mmol/L (22-29); Chloride 98 mmol/L (98-107); Creatinine Clr Calc Pharmacy 70.3334; Glucose 118 mg/dL (65-115); Osmolality Calculated 291 mOsm/kg (285-295); Potassium 4.0 mmol/L (3.5-5.1); Sodium 138 mmol/L (136-145)
--- NOTE | 2025-04-06 18:19 | PC.NURSE ---
Physician orders to give metoprolol 25mg PO ONCE
[2025-04-06] MEDS: ATORVASTATIN 10 MG TABLET PO (21:42)
[2025-04-07] VITALS (9 sets, daily range): BP systolic 107–130; BP diastolic 43–60; PULSE 72–98; RESP 14–21; TEMP 36.6; O2SAT 92–97
[2025-04-07] MEDS: lactobacillus 1 Tablet 1 TAB PO ×2 (05:23→16:55)
[2025-04-07] MEDS: DAPAGLIFLOZIN 10 MG TABLET PO (05:24)
[2025-04-07 05:42] LABS: Hematocrit 37.3 % (37-53); Hemoglobin 11.20 g/dL (11.27-16.99); Mean Corpuscular HGB Conc 30.0 g/dL (30-55); Mean Corpuscular Hemoglobin 26.4 pg (27-33); Mean Corpuscular Volume 88.0 fl (82-101); Nucleated Red Blood Cells % 0 %; Platelet Count 206 10^3/cmm (157-399); Red Blood Count 4.24 10^6/uL (3.85-5.65); White Blood Count 3.67 10^3/uL (3.29-11.43)
[2025-04-07 06:09] LABS: Alanine Aminotransferase 10 U/L (0-41); Albumin Level 3.3 g/dL (3.5-5.2); Alkaline Phosphatase 75 U/L (40-130); Anion Gap 14.3 (5-19); Aspartate Amino Transferase 10 U/L (0-40); Blood Urea Nitrogen 26 mg/dL (8-23); Calcium 8.5 mg/dL (8.5-10.5); Carbon Dioxide 31 mmol/L (22-29); Chloride 103 mmol/L (98-107); Creatinine Clr Calc Pharmacy 85.8148; Globulin 2.7 g/dL (1.3-4.6); Glucose 87 mg/dL (65-115); Osmolality Calculated 302 mOsm/kg (285-295); Potassium 4.3 mmol/L (3.5-5.1); Sodium 144 mmol/L (136-145); Total Protein 6.0 g/dL (6.6-8.7)
[2025-04-07] MEDS: ARFORMOTEROL 15 MCG/2 ML NEB INHALATION ×2 (08:16→21:59)
--- NOTE | 2025-04-07 08:35 | P.PN_ITS ---
<Statement entered by Kashif Stern MD - 04/09/25 19:32> Patient was evaluated and cared for in conjunction with an advanced practice practitioner. I personally examined the patient and reviewed the chart and all pertinent data including imaging, telemetry, and laboratory results. I discussed the patient in detail with the advanced practice practitioner. Please see their note for complete H&P testing result and agreed upon plan of care for the patient. Subjective 2 Subjective: He reports continued shortness of breath, no orthopnea. [facility] planned for tomorrow. He had some hypotension after 1/2 tab of 24/26mg dose Entresto, will hold. Vitals/I&O/Wt Last Vital Signs Temp 97.8 F 04/07/25 04:00 Pulse 83 04/07/25 08:17 Resp 18 04/07/25 08:17 BP 130/60 04/07/25 04:00 Pulse Ox 93 04/07/25 08:17 O2 Del Method Nasal Cannula 04/07/25 08:17 O2 Flow Rate 3 04/07/25 08:17 04/06/25 04/07/25 04/07/25 22:59 06:59 14:59 Intake Total 490 / 1330 360 / 1330 Output Total 0 / 0 Balance 490 / 1330 360 / 1330 Weight last 48 hrs Weight 196 lb 6.91 oz Weight 197 lb 3 oz Physical Exam 2 Const: COMMON NORMALS: no acute distress and patient oriented x3 GENERAL APPEARANCE: cooperative and comfortable ORIENTATION/CONSCIOUSNESS: Yes awake, Yes oriented to person, Yes oriented to place and Yes oriented to time Chest: COMMONS NORMALS: normal inspection of the chest and normal palpation of entire chest wall CHEST: Yes Symmetrical chest wall rise Resp: COMMON NORMALS: normal respiratory effort, No retractions, No use of accessory muscles and clear to auscultation bilaterally EFFORT & INSPECTION: Yes symmetric chest movement AUSCULTATION: clear to auscultation bilaterally Cardio: COMMON NORMALS: regular rate, regular rhythm, S1 normal heart sound present, S2 normal heart sound present, No gallops present (Cardio), No clicks present (Cardio), No murmurs present (Cardio) and No rub (Cardio) RATE: r egular rate RHYTHM: regular rhythm HEART SOUNDS: S1 normal heart sound present and S2 normal heart sound present PERIPHERAL PULSES: radial pulses present Extremity: COMMON NORMALS: no pedal edema Neuro: COMMON NORMALS: patient oriented x3 and moves all extremities S ENSORIUM/ORIENTATION: Yes oriented to person, Yes oriented to place and Yes oriented to time Data 04/07/25 05:30 04/07/25 05:30 Micro: Microbiology 04/01/25 14:36 Blood Culture - Final Blood NO GROWTH AFTER 5 DAYS 04/01/25 14:33 Blood Culture - Final Blood NO GROWTH AFTER 5 DAYS A&P Assessment and plan 1. Acute on chronic heart failure with mildly reduced ejection fraction (HFmrEF): 2. Coronary artery disease: 3. Hyperlipidemia: 4. Atrial fibrillation: 5. Positive cardiac stress test: Plan: Continue diuresis, reducing IV Lasix to 40 mg daily due to soft blood pressure. Holding Entresto. Continue digoxin, Plavix, Farxiga, statin. Continue metoprolol 25 mg twice daily. Holding Eliquis for cath tomorrow. PDMP PDMP Reviewed: Not Reviewed Attestations 2 Medical Necessity Statement*: Ischemic workup 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 of Care Code Acute Code for [facility] Diagnoses Acute on chronic heart failure with mildly reduced ejection fraction (HFmrEF) I50.23 Coronary artery disease I25.10 Hyperlipidemia E78.5 Atrial fibrillation I48.91 Positive cardiac stress test R94.39
--- NOTE | 2025-04-07 12:30 | PM.PN ---
Subjective Subjective: Today morning patient seen sitting comfortably in bed. Denies any nausea, vomiting, headache. Yesterday he did have soft blood pressures after receiving his morning dose of Entresto with blood pressure dropping down to 70 systolic though he remained asymptomatic. He received 125 cc of fluid bolus after which blood pressures have been stable overnight. Vitals/I&O/Wt Last Vital Signs Temp 97.8 F 04/07/25 04:00 Pulse 83 04/07/25 08:17 Resp 18 04/07/25 08:17 BP 130/60 04/07/25 04:00 Pulse Ox 93 04/07/25 08:17 O2 Del Method Nasal Cannula 04/07/25 08:17 O2 Flow Rate 3 04/07/25 08:17 04/06/25 04/07/25 04/07/25 22:59 06:59 14:59 Intake Total 490 / 970 360 / 1330 Output Total 0 / 0 Balance 490 / 970 360 / 1330 Weight last 48 hrs Weight 89.1 kg Weight 89.443 kg Physical Exam Narrative: General Well-developed well-nourished male in no acute cardiopulmonary stress Cardiovascular regular rate and rhythm no murmurs rubs gallops Lungs good air movement mildly diminished in the upper lung rivear with mild left lower lung field crackles. He has prolonged extra phase and diffuse wheezing today throughout Abdomen positive bowel tones soft nontender nondistended Calves 2+ to 3 bilateral pitting edema Skin warm and dry Hygiene good Data 04/07/25 05:30 04/07/25 05:30 Micro: Microbiology 04/01/25 14:36 Blood Culture - Final Blood NO GROWTH AFTER 5 DAYS 04/01/25 14:33 Blood Culture - Final Blood NO GROWTH AFTER 5 DAYS A&P Assessment and plan 1. Acute on chronic heart failure with mildly reduced ejection fraction (HFmrEF): 2. Coronary artery disease of [place] artery of [place] heart with stable angina pectoris: Troponin 80 typically runs 30. Hydrate beta-blockers and continue Eliquis for now patient is not having overt chest pain. He reports some chest heaviness EKG does not show acute [place] but is difficult to interpret due to A-fib and right bundle branch block I have asked Dr. Estrada to see the patient regarding anginal-like chest pain and elevated troponin in the setting of sepsis with history of bypass surgery 5 vessel March 14, 2019 and stent 1990 Plan for Lexiscan nuclear on Saturday 3. Positive cardiac stress test: 4. Pneumonia of left upper lobe due to Pseudomonas species: Recently finished course of IV antibiotics as an outpatient. Currently on Levaquin. Will finish a 5-day course with last dose on 04/09. 5. COPD with acute exacerbation: Resume low-dose steroids at prednisone 20 mg daily. I think he is retaining fluid as a cause of his acute wheezing compared to yesterday will resume home furosemide 40 mg daily first dose now add potassium chloride 10 mill colons p.o. daily Patient is doing well on 3 L nasal 6. Acute on chronic hypoxic respiratory failure: Patient is chronically on 3 L oxygen with blood gas showing no CO2 retention 7. Diarrhea: C. difficile toxin was negative 8. Paroxysmal atrial fibrillation: Plan: Plan for the day: Shortness of breath most likely in setting of congestive heart failure and COPD exacerbation. Pneumonia seems to be resolving. Finish course of IV or ertapenem recently for Pseudomonas pneumonia. For now continue with Levaquin to finish a 5 to 7-day course. Oxygen supplementation keeping saturation over 90%. Fluid restriction to less than 1500 cc. Appreciate cardiology recommendations. Plan for cardiac angiogram in next 24 hours. Not done today as he had dose of Eliquis yesterday. Continue to hold off on Eliquis and continue with full dose Lovenox 1 mg/kg body weight every 12 hourly. Goal blood pressure less than 140/90 mmHg. Maintain mean over 65. Blood pressure soft yesterday after Entresto. Continue with metoprolol 25 mg twice daily, Lasix changed to 40 mg oral daily. Hold off on Entresto for now. Out of bed to chair. Oxygen supplementation keeping saturation over 90%. Continue digoxin. Continue with current inhalation and nebulization treatment as per pulmonary team. Change prednisone to 10 mg daily. Continue on Levaquin to finish a 5-day course with last dose on 04/09. Full code Cardiac diet Protonix for PUD prophylaxis Eliquis will be sufficient for DVT prophylaxis PDMP PDMP Reviewed: Not Reviewed Attestations Medical Necessity Statement*: Requires further hospitalization for management of shortness of breath with concern for unstable angina, CHF, COPD exacerbation as patient requires further ACS workup and GDMT for heart failure medications Diagnoses Acute on chronic heart failure with mildly reduced ejection fraction (HFmrEF) I50.23 Coronary artery disease of [place] artery of [place] heart with stable angina pectoris I25.118 Coronary Disease-Associated Artery/Lesion type: [place] artery [place] vs. transplanted heart: [place] heart Associated angina: with stable angina Positive cardiac stress test R94.39 Pneumonia of left upper lobe due to Pseudomonas species J15.1 Laterality: left Lung location: upper lobe of lung COPD with acute exacerbation J44.1 Acute on chronic hypoxic respiratory failure J96.21 Diarrhea R19.7 Paroxysmal atrial fibrillation I48.0 Atrial fibrillation type: paroxysmal
--- NOTE | 2025-04-07 13:22 | PC.SOCIAL ---
IMM Updated Updated pt on IMM. No questions voiced. Provided pt a copy. Initialed, dated, & timed copy in chart.
[2025-04-07] MEDS: ATORVASTATIN 10 MG TABLET PO (21:10)
[2025-04-08] VITALS (11 sets, daily range): BP systolic 103–141; BP diastolic 51–67; PULSE 71–85; RESP 14–18; TEMP 36.3–37.4; O2SAT 93–98
[2025-04-08] MEDS: lactobacillus 1 Tablet 1 TAB PO ×2 (05:13→17:39)
[2025-04-08] MEDS: DAPAGLIFLOZIN 10 MG TABLET PO (05:13)
[2025-04-08 05:43] LABS: Hematocrit 32.5 % (37-53); Hemoglobin 9.90 g/dL (11.27-16.99); Mean Corpuscular HGB Conc 30.5 g/dL (30-55); Mean Corpuscular Hemoglobin 27.3 pg (27-33); Mean Corpuscular Volume 89.5 fl (82-101); Nucleated Red Blood Cells % 0 %; Platelet Count 178 10^3/cmm (157-399); Red Blood Count 3.63 10^6/uL (3.85-5.65); White Blood Count 3.01 10^3/uL (3.29-11.43)
[2025-04-08 06:00] LABS: Alanine Aminotransferase 9 U/L (0-41); Albumin Level 3.1 g/dL (3.5-5.2); Alkaline Phosphatase 61 U/L (40-130); Anion Gap 12.1 (5-19); Aspartate Amino Transferase 9 U/L (0-40); Blood Urea Nitrogen 20 mg/dL (8-23); Calcium 8.3 mg/dL (8.5-10.5); Carbon Dioxide 30 mmol/L (22-29); Chloride 106 mmol/L (98-107); Creatinine Clr Calc Pharmacy 96.8819; Globulin 2.2 g/dL (1.3-4.6); Glucose 86 mg/dL (65-115); Osmolality Calculated 300 mOsm/kg (285-295); Potassium 4.1 mmol/L (3.5-5.1); Sodium 144 mmol/L (136-145); Total Protein 5.3 g/dL (6.6-8.7)
[2025-04-08] MEDS: ARFORMOTEROL 15 MCG/2 ML NEB INHALATION ×2 (07:27→21:22)
--- NOTE | 2025-04-08 11:21 | P.PN_ITS ---
Subjective 2 Subjective: No acute vents overnight. Patient has remained chest pain-free. Denies any nausea, vomiting, headache. States still having some chest pressure and difficulty in breathing on walking around but better than before. Blood pressure is better. Vitals/I&O/Wt Last Vital Signs Temp 99.4 F 04/08/25 07:59 Pulse 84 04/08/25 11:17 Resp 18 04/08/25 11:17 BP 107/51 04/08/25 07:59 Pulse Ox 97 04/08/25 11:17 O2 Del Method Nasal Cannula 04/08/25 11:17 O2 Flow Rate 3 04/08/25 11:17 04/07/25 04/08/25 04/08/25 22:59 06:59 14:59 Intake Total 840 / 960 Balance 840 / 510 Weight last 48 hrs Weight 89.8 kg Weight 89.1 kg Physical Exam 2 Narrative: General Well-developed well-nourished male in no acute cardiopulmonary stress Cardiovascular regular rate and rhythm no murmurs rubs gallops Lungs good air movement mildly diminished in the upper lung rivera with mild left lower lung field crackles. He has prolonged extra phase and diffuse wheezing today throughout Abdomen positive bowel tones soft nontender nondistended Calves 2+ to 3 bilateral pitting edema Skin warm and dry Hygiene good Data 04/08/25 05:16 04/08/25 05:16 Micro: Microbiology 04/01/25 14:36 Blood Culture - Final Blood NO GROWTH AFTER 5 DAYS 04/01/25 14:33 Blood Culture - Final Blood NO GROWTH AFTER 5 DAYS A&P Assessment and plan 1. Acute on chronic heart failure with mildly reduced ejection fraction (HFmrEF): 2. Coronary artery disease of [place] artery of [place] heart with stable angina pectoris: Troponin 80 typically runs 30. Hydrate beta-blockers and continue Eliquis for now patient is not having overt chest pain. He reports some chest heaviness EKG does not show acute [place] but is difficult to interpret due to A-fib and right bundle branch block I have asked Dr. Estrada to see the patient regarding anginal-like chest pain and elevated troponin in the setting of sepsis with history of bypass surgery 5 vessel March 14, 2019 and stent 1989 Plan for Lexiscan nuclear on Saturday 3. Positive cardiac stress test: 4. Pneumonia of left upper lobe due to Pseudomonas species: Recently finished course of IV antibiotics as an outpatient. Currently on Levaquin. Will finish a 5-day course with last dose on 04/09. 5. COPD with acute exacerbation: Resume low-dose steroids at prednisone 20 mg daily. I think he is retaining fluid as a cause of his acute wheezing compared to yesterday will resume home furosemide 40 mg daily first dose now add potassium chloride 10 mill colons p.o. daily Patient is doing well on 3 L nasal 6. Acute on chronic hypoxic respiratory failure: Patient is chronically on 3 L oxygen with blood gas showing no CO2 retention 7. Diarrhea: C. difficile toxin was negative 8. Paroxysmal atrial fibrillation: Plan: Plan for the day: Shortness of breath most likely in setting of congestive heart failure and COPD exacerbation. Pneumonia seems to be resolving. Finish course of IV or ertapenem recently for Pseudomonas pneumonia. For now continue with Levaquin to finish a 5 to 7-day course. Oxygen supplementation keeping saturation over 90%. Fluid restriction to less than 1500 cc. Appreciate cardiology recommendations. Continue to hold off on Eliquis and continue with full dose Lovenox 1 mg/kg body weight every 12 hourly. Plan for cardiac angiogram today as per cardiology team. Continue with NS as per cardiology team 50 cc/h preprocedure. Watch for fluid overload Goal blood pressure less than 140/90 mmHg. Maintain mean over 65. Continue with metoprolol 25 mg twice daily, Lasix changed to 40 mg oral daily. Will try to re-add ARNI versus ARB in next 24 hours. Out of bed to chair. Oxygen supplementation keeping saturation over 90%. Continue digoxin. Continue with current inhalation and nebulization treatment as per pulmonary team. Continue with prednisone 10 mg daily. Continue on Levaquin to finish a 5-day course with last dose on 04/09. Full code Cardiac diet Protonix for PUD prophylaxis Eliquis will be sufficient for DVT prophylaxis PDMP PDMP Reviewed: Not Reviewed Attestations 2 Medical Necessity Statement*: Requires further hospitalization for management of shortness of breath with concern for unstable angina, requiring further ACS workup with cardiac angiogram, CHF, COPD exacerbation as medications as per GDMT uptitrate for heart failure while monitoring blood pressures Diagnoses Acute on chronic heart failure with mildly reduced ejection fraction (HFmrEF) I50.23 Coronary artery disease of [place] artery of [place] heart with stable angina pectoris I25.118 Associated angina: with stable angina Coronary Disease-Associated Artery/Lesion type: [place] artery [place] vs. transplanted heart: [place] heart Positive cardiac stress test R94.39 Pneumonia of left upper lobe due to Pseudomonas species J15.1 Laterality: left Lung location: upper lobe of lung COPD with acute exacerbation J44.1 Acute on chronic hypoxic respiratory failure J96.21 Diarrhea R19.7 Paroxysmal atrial fibrillation I48.0 Atrial fibrillation type: paroxysmal
--- NOTE | 2025-04-08 12:51 | P.PN_ITS ---
<Statement entered by Kashif Stern MD - 04/09/25 19:29> Patient was evaluated and cared for in conjunction with an advanced practice practitioner. I personally examined the patient and reviewed the chart and all pertinent data including imaging, telemetry, and laboratory results. I discussed the patient in detail with the advanced practice practitioner. Please see their note for complete H&P testing result and agreed upon plan of care for the patient. Subjective 2 Subjective: He is sitting on the side of the bed. Shortness of breath is much better, lower extremity edema has resolved, lungs are tez, he is able to lay flat. He will have LHC tomorrow. Vitals/I&O/Wt Last Vital Signs Temp 97.5 F L 04/08/25 11: Pulse 80 04/08/25 11: Resp 18 04/08/25 11:25 BP 110/57 04/08/25 11:25 Pulse Ox 95 04/08/25 11:25 O2 Del Method Nasal Cannula 04/08/25 11:25 O2 Flow Rate 3 04/08/25 11:17 04/07/25 04/08/25 04/08/25 22:59 06:59 14:59 Intake Total 840 / 960 Balance 840 / 510 Weight last 48 hrs Weight 197 lb 15.602 oz Weight 196 lb 6.91 oz Physical Exam 2 Const: COMMON NORMALS: no acute distress and patient oriented x3 GENERAL APPEARANCE: cooperative and comfortable ORIENTATION/CONSCIOUSNESS: Yes awake, Yes oriented to person, Yes oriented to place and Yes oriented to time Chest: COMMONS NORMALS: normal inspection of the chest and normal palpation of entire chest wall CHEST: Yes Symmetrical chest wall rise Resp: COMMON NORMALS: normal respiratory effort, No retractions, No use of accessory muscles and clear to auscultation bilaterally EFFORT & INSPECTION: Yes symmetric chest movement AUSCULTATION: clear to auscultation bilaterally Cardio: COMMON NORMALS: regular rate, regular rhythm, S1 normal heart sound present, S2 normal heart sound present, No gallops present (Cardio), No clicks present (Cardio), No murmurs present (Cardio) and No rub (Cardio) RATE: r egular rate RHYTHM: regular rhythm HEART SOUNDS: S1 normal heart sound present and S2 normal heart sound present PERIPHERAL PULSES: radial pulses present Extremity: COMMON NORMALS: no pedal edema Neuro: COMMON NORMALS: patient oriented x3 and moves all extremities S ENSORIUM/ORIENTATION: Yes oriented to person, Yes oriented to place and Yes oriented to time Data 04/08/25 05:16 04/08/25 05:16 A&P Assessment and plan 1. Acute on chronic heart failure with mildly reduced ejection fraction (HFmrEF): 2. Coronary artery disease: 3. Hyperlipidemia: 4. Atrial fibrillation: 5. Positive cardiac stress test: Plan: Continue Plavix, metoprolol, Lasix, statin, digoxin. Rate controlled with beta radha and digoxin. He appears well compensated. NPO after midnight tonight for [facility] tomorrow either 6AM or after clinic. PDMP PDMP Reviewed: Not Reviewed Attestations 2 Medical Necessity Statement*: ischemic workup 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 of Care Code Acute Code for [facility] Fw Diagnoses Acute on chronic heart failure with mildly reduced ejection fraction (HFmrEF) I50.23 Coronary artery disease I25.10 Hyperlipidemia E78.5 Atrial fibrillation I48.91 Positive cardiac stress test R94.39
[2025-04-08] MEDS: ATORVASTATIN 10 MG TABLET PO (20:22)
[2025-04-09] VITALS (23 sets, daily range): BP systolic 97–126; BP diastolic 42–66; PULSE 59–94; RESP 14–24; TEMP 36.4–36.7; O2SAT 92–99
[2025-04-09] MEDS: DAPAGLIFLOZIN 10 MG TABLET PO (04:57)
[2025-04-09] MEDS: lactobacillus 1 Tablet 1 TAB PO ×2 (04:58→17:32)
--- NOTE | 2025-04-09 07:00 | XACV_ITS ---
Exam Room: 2 Ht: 178 cm Wt: 89 kg BSA: 2.12 m2 Gender: Male : 1955 Any Known Allergies: Other Exam Priority: Routine Procedure(s): Procedure Description: Diagnostic procedure Procedure Description: Left Heart Catheterization Procedure Description: Left ventriculography Procedure Description: Venous Graft Catheterization Procedure Description: IVY Graft Catheterization Procedure Description: Coronary Angiography Leena CESPEDES; Diagnostic Cath Status: Elective Diagnostic Findings * Left Main: significant 80% stenosis, DAHLIA: 3 flow. * Proximal Left Anterior Descending to Mid Left Anterior Descending: severe 90% stenosis, DAHLIA: 3 flow. * Left Internal Mammary Artery to Mid Left Anterior Descending graft: patent. * Proximal Circumflex: total occlusion, chronic total occlusion, DAHLIA: 0 flow. * Proximal Right Coronary Artery: total occlusion, chronic total occlusion, DAHLIA: 0 flow. * Ascending Aorta to 1st Diagonal graft: patent. * Ascending Aorta to First Obtuse Marginal Branch Segment graft: patent. * Three grafts visualized. * Coronary angiography shows left dominance. Conclusions 1. There is total occlusion coronary artery disease with four vessel disease. 2. Three coronary grafts visualized: all grafts patent. 3. All espinoza are normal. 4. Normal left ventricular systolic function. Ejection fraction of 55%. Recommendations * Continue current medical management and risk factor modification. Diagnostic RX Recommendation: medical therapy and/or counseling Ventriculography Ejection Fraction: 55.0 % Pressures Phase:Rest AO : 78 / 52 ( 64 ) @ 4:38:00 PM / ( 68 ) @ 4:52:00 PM 111 / 32 ( 61 ) @ 4:52:00 PM LV : 106 / -10 / 5 @ 4:51:00 PM 105 / -11 / 7 @ 4:52:00 PM 103 / -11 / 5 @ 4:52:00 PM Valves Phase:DefaultPhase AV : 0.0 @ 5:07:25 PM AV Mean Gradient: 0.0 @ 5:07:25 PM Clinical Evaluation EBL: 5mL-10mL Procedural Details Pre-Procedure Time Out. Identified patient by full name and date of as verbalized by the patient/guarantor. Does the consent match the physician's order: Yes. Accurate & Complete Informed Consent: Yes. Inpatient/Outpatient History & Physical on Chart: Yes. If H&P is completed, is and addenduem needed: No; If yes, is the addendum complete: N/A. Visualize and Verify Site with Patient/Guarantor: N/A. Relevant Radiology Images available: Yes. Pre-op teaching completed and patient verbalized understanding. The risks, benefits, and alternatives of sedation and/or procedure were discussed by physician. The patient agrees to continue. Procedure started. [facility] Clinical Fraility Score: 3: Managing Well. [employer] Preflight Indications: ACS > 24 hours. Chest Pain Symptom Assessment: Typical Angina Symptoms. Correct patient, site and procedure confirmed by cath team. Current diagnosis: Chest Pain. PERRLA. Strong, equal hand plush weaver bilaterally. Lungs clear x 5 lobes. IV Site on Arrival: 18 gauge in the left anticubital. IV Fluids: 0.9% NaCl at KVO. 0 mL infused prior to phlebotomist lab assistant. Oxygen started at 2liters/min via nasal canula. bilateral groins was prepped with chloroprep then draped in the usual sterile fashion. Current Diagnosis : Chest Pain. Baseline sample Acquired. HR: 78 BPM. Physician arrived. Physician scrubbed in. Immediate Pre-Procedure Time Out. Correct Patient: Yes; Correct Procedure: Yes; Correct Site: Yes; Correct Patient Position: Yes; Correct Supplies: Yes; Dried Flammable Prep: Yes; Blood Products Available: N/A;. Lidocaine 1% infiltrated to the right groin. Arterial access obtained with micropuncture set. A Right femoral angiogram was performed to determine safe placement of closure device. A 5 marshallese JL4 catheter in over wire. Multiple views taken of left coronary artery. Catheter removed over the exchange wire. A 5 marshallese JR4 catheter in over wire. Multiple views taken of right coronary artery. SVG's to OM visualized and patent. IVY to LAD visualized. Catheter removed over the exchange wire. A 5 marshallese Angled Pig catheter in over wire. EDP Sample taken: LV 106/-11,5; HR: 69 BPM; SpO2: 99%. LV gram performed in VILLEDA @ 10 mL/second for a total of 30 mL. EDP Sample taken: LV 105/-12,7; HR: 64 BPM; SpO2: 100%. Pullback taken: LV 103/-12,5; AO (68); Mean: 0mmHg, Peak to Peak: 0mmHg, SEP: 20sec/min; HR: 65 BPM; SpO2: 99%. Catheter removed over the exchange wire. A Angio-Seal VIP (St. Satish) was successful obtaining hemostatsis at the Right Femoral artery insertion site. Vital chart was stopped. PERRLA. Strong, equal hand plush weaver bilaterally. No VTE prophylaxis required. Medication's Wasted: Other = Fentanyl 50 mcg. Total IV fluids: 40 mL. Post-op diagnosis: Patent Grafts. Complications: None. Estimated blood loss: 5mL-10mL. Responsiveness - Normal response to verbal stimuli; alert and oriented, PERRLA. Airway - Unaffected, no intervention required; spontaneous ventilation. Circulation: W/N/L, pulses unchanged. Nausea/Vomiting: No. Procedure completed. Patient transferred by bed to CPRU. Access Site Site: Right Femoral artery Sheath Size: 6 Fr Hemostasis Method: Angio-Seal VIP (St. Satish) Hemostasis Success: Successful Procedure Medications Start: 4:22 PM Stop: 4:22 PM Medication: Versed Amount: 2 mg Route: I.V. Start: 4:22 PM Stop: 4: PM Medication: Fentanyl Amount: 25 mcg Route: I.V. Start: 4:29 PM Stop: 4: PM Medication: Fentanyl Amount: 25 mcg Route: I.V. I, the attending physician, have reviewed and verified all procedure medications. Yes, all medications given per verbal order History/Risk Factors Hypertension: Yes Dyslipidemia: Yes Peripheral Arterial Disease (PAD): Yes Myocardial Infarction ([place]): No Obesity: No Renal Disease: No Tobacco Use: Former Prior Interventions PCI: No CABG: No Valve Surgery: No Report Signatures Finalized by Kashif Stern MD on 04/10/2025 03:58 PM
[2025-04-09 07:53] LABS: Hematocrit 37.2 % (37-53); Hemoglobin 11.10 g/dL (11.27-16.99); Mean Corpuscular HGB Conc 29.8 g/dL (30-55); Mean Corpuscular Hemoglobin 26.9 pg (27-33); Mean Corpuscular Volume 90.1 fl (82-101); Nucleated Red Blood Cells % 0 %; Platelet Count 203 10^3/cmm (157-399); Red Blood Count 4.13 10^6/uL (3.85-5.65); White Blood Count 4.52 10^3/uL (3.29-11.43)
[2025-04-09] MEDS: ARFORMOTEROL 15 MCG/2 ML NEB INHALATION ×2 (08:00→20:33)
[2025-04-09 08:08] LABS: Alanine Aminotransferase 12 U/L (0-41); Albumin Level 3.6 g/dL (3.5-5.2); Alkaline Phosphatase 77 U/L (40-130); Anion Gap 15.9 (5-19); Aspartate Amino Transferase 12 U/L (0-40); Blood Urea Nitrogen 19 mg/dL (8-23); Calcium 9.1 mg/dL (8.5-10.5); Carbon Dioxide 32 mmol/L (22-29); Chloride 100 mmol/L (98-107); Creatinine Clr Calc Pharmacy 76.0029; Globulin 3.1 g/dL (1.3-4.6); Glucose 118 mg/dL (65-115); Osmolality Calculated 299 mOsm/kg (285-295); Potassium 4.9 mmol/L (3.5-5.1); Sodium 143 mmol/L (136-145); Total Protein 6.7 g/dL (6.6-8.7)
--- NOTE | 2025-04-09 10:58 | P.PN_ITS ---
Subjective 2 Subjective: No acute events overnight. Patient has remained chest pain-free. Still complaining of mild difficulty in breathing on exertion though improving from before. Currently on 3 L. Hemodynamically stable. Vitals/I&O/Wt Last Vital Signs Temp 97.9 F 04/09/25 07:39 Pulse 71 04/09/25 08:00 Resp 16 04/09/25 08:00 BP 103/53 04/09/25 07:39 Pulse Ox 98 04/09/25 08:00 O2 Del Method Nasal Cannula 04/09/25 08:00 O2 Flow Rate 3 04/09/25 08:00 04/08/25 04/09/25 04/09/25 22:59 06:59 14:59 Intake Total 480 / 960 1000 / 1960 Output Total 450 / 450 400 / 850 Balance 30 / 510 600 / 1110 Weight last 48 hrs Weight 85.936 kg Weight 89.8 kg Physical Exam 2 Narrative: General Well-developed well-nourished male in no acute cardiopulmonary stress Cardiovascular regular rate and rhythm no murmurs rubs gallops Lungs good air movement mildly diminished in the upper lung rivera with mild left lower lung field crackles. He has prolonged extra phase and diffuse wheezing today throughout Abdomen positive bowel tones soft nontender nondistended Calves 2+ to 3 bilateral pitting edema Skin warm and dry Hygiene good Data 04/09/25 07:41 04/09/25 07:41 Micro: Microbiology 04/01/25 14:36 Blood Culture - Final Blood NO GROWTH AFTER 5 DAYS 04/01/25 14:33 Blood Culture - Final Blood NO GROWTH AFTER 5 DAYS A&P Assessment and plan 1. Acute on chronic heart failure with mildly reduced ejection fraction (HFmrEF): 2. Coronary artery disease of [place] artery of [place] heart with stable angina pectoris: Troponin 80 typically runs 30. Hydrate beta-blockers and continue Eliquis for now patient is not having overt chest pain. He reports some chest heaviness EKG does not show acute LA but is difficult to interpret due to A-fib and right bundle branch block I have asked Dr. Estrada to see the patient regarding anginal-like chest pain and elevated troponin in the setting of sepsis with history of bypass surgery 5 vessel March 14, 2019 and stent 1989 Plan for Lexiscan nuclear on Saturday 3. Positive cardiac stress test: 4. Pneumonia of left upper lobe due to Pseudomonas species: Recently finished course of IV antibiotics as an outpatient. Currently on Levaquin. Will finish a 5-day course with last dose on 04/09. 5. COPD with acute exacerbation: Resume low-dose steroids at prednisone 20 mg daily. I think he is retaining fluid as a cause of his acute wheezing compared to yesterday will resume home furosemide 40 mg daily first dose now add potassium chloride 10 mill colons p.o. daily Patient is doing well on 3 L nasal 6. Acute on chronic hypoxic respiratory failure: Patient is chronically on 3 L oxygen with blood gas showing no CO2 retention 7. Diarrhea: C. difficile toxin was negative 8. Paroxysmal atrial fibrillation: Plan: Plan for the day: Shortness of breath most likely in setting of congestive heart failure and COPD exacerbation. Pneumonia seems to be resolving. Finish course of IV or ertapenem recently for Pseudomonas pneumonia. For now continue with Levaquin to finish a 5 to 7-day course. Oxygen supplementation keeping saturation over 90%. Fluid restriction to less than 1500 cc. Appreciate cardiology recommendations. Angiogram could not be done yesterday. Plan for angiogram today. No active chest pain. Blood pressure stable. Continue with metoprolol and digoxin. Holding off on adding STACY/ARB/ARNI. Further plan as per findings and cardiac angiogram. Out of bed to chair. Oxygen supplementation keeping saturation over 90%. Continue with current inhalation and nebulization treatment as per pulmonary team. Continue with prednisone 10 mg daily. Plan to stop prednisone after 5 days overall with last dose on 04/13. Continue on Levaquin to finish a 5-day course with last dose on 04/09. Full code N.p.o. for now, restart cardiac diet after cardiac angiogram Protonix for PUD prophylaxis Eliquis will be sufficient for DVT prophylaxis PDMP PDMP Reviewed: Not Reviewed Attestations 2 Medical Necessity Statement*: Requires further hospitalization for management of shortness of breath with concern for unstable angina, requiring further ACS workup with cardiac angiogram, CHF, COPD exacerbation as medications as per GDMT uptitrate for heart failure while monitoring blood pressures Diagnoses Acute on chronic heart failure with mildly reduced ejection fraction (HFmrEF) I50.23 Coronary artery disease of [place] artery of [place] heart with stable angina pectoris I25.118 Coronary Disease-Associated Artery/Lesion type: [place] artery [place] vs. transplanted heart: [place] heart Associated angina: with stable angina Positive cardiac stress test R94.39 Pneumonia of left upper lobe due to Pseudomonas species J15.1 Laterality: left Lung location: upper lobe of lung COPD with acute exacerbation J44.1 Acute on chronic hypoxic respiratory failure J96.21 Diarrhea R19.7 Paroxysmal atrial fibrillation I48.0 Atrial fibrillation type: paroxysmal
--- NOTE | 2025-04-09 11:04 | PC.SOCIAL ---
IMM Updated Updated pt on IMM. No questions voiced. Provided pt a copy. Initialed, dated, & timed a copy & placed in chart.
--- NOTE | 2025-04-09 12:38 | P.PN_ITS ---
<Statement entered by Kashif Stern MD - 04/09/25 19:04> Patient was evaluated and cared for in conjunction with an advanced practice practitioner. I personally examined the patient and reviewed the chart and all pertinent data including imaging, telemetry, and laboratory results. I discussed the patient in detail with the advanced practice practitioner. Please see their note for complete H&P testing result and agreed upon plan of care for the patient. Patient underwent left heart catheterization today for worsening of LV function. ongoing heart failure acute on chronic GENERAL: Patient is alert, awake and oriented x3. HEART: Regular S1 and S2. No murmur, rub or gallop. LUNGS: Clear to auscultate bilaterally. CENTRAL NERVOUS SYSTEM: Grossly nonfocal. EXTREMITIES: Lower extremities with out edema bilaterally. Assessment and plan Acute on chronic decompensated systolic heart failure Mildly reduced LV function new onset Atrial fibrillation Patient underwent left heart catheterization noted to have patent IVY to LAD, SVG to diagonal and SVG to obtuse marginal no new significant stenosis were noted LV gram showed ejection fraction mildly reduced 50% Patient appeared to be euvolemic Switch him to p.o. Lasix 40 mg once a day and 20 meq of potassium chloride. STACY inhibitor Possible discharge tomorrow with heart failure education Subjective 2 Subjective: Plan is for coronary angiogram today, renal function is normal. Vitals/I&O/Wt Last Vital Signs Temp 98.1 F 04/09/25 11:51 Pulse 83 04/09/25 11:51 Resp 14 04/09/25 11:51 BP 109/56 04/09/25 11:51 Pulse Ox 98 04/09/25 11:51 O2 Del Method Nasal Cannula 04/09/25 11:51 O2 Flow Rate 3 04/09/25 11:16 04/08/25 04/09/25 04/09/25 22:59 06:59 14:59 Intake Total 480 / 1960 1000 / 1960 Output Total 450 / 850 400 / 850 Balance 30 / 1110 600 / 1110 Weight last 48 hrs Weight 189 lb 7.3 oz Weight 197 lb 15.602 oz Physical Exam 2 Const: COMMON NORMALS: no acute distress and patient oriented x3 Chest: COMMONS NORMALS: normal inspection of the chest and normal palpation of entire chest wall CHEST: Yes Symmetrical chest wall rise Resp: COMMON NORMALS: normal respiratory effort, No retractions and No use of accessory muscles EFFORT & INSPECTION: Yes symmetric chest movement A USCULTATION: wheezes expiratory wheezes and posterior Cardio: COMMON NORMALS: S1 normal heart sound present, S2 normal heart sound present, No gallops present (Cardio), No clicks present (Cardio), No murmurs present (Cardio) and No rub (Cardio) RHYTHM: abnormal rhythm irregularly irregular HEART SOUNDS: S1 normal heart sound present and S2 normal heart sound present PERIPHERAL PULSES: radial pulses present, posterior tibial pulses present and dorsalis pedis present Neuro: COMMON NORMALS: patient oriented x3 and moves all extremities Psych: COMMON NORMALS: mental status grossly normal and cooperative Data 04/09/25 07:41 04/09/25 07:41 A&P Assessment and plan 1. Acute on chronic heart failure with mildly reduced ejection fraction (HFmrEF): 2. Coronary artery disease: 3. Hyperlipidemia: 4. Atrial fibrillation: 5. Positive cardiac stress test: 6. COPD (chronic obstructive pulmonary disease): 7. Bilateral pneumonia: Plan: Coronary angiogram today to rule out ischemic cause of decreased LVEF to 47% from normal in January. He remains in atrial fibrillation with controlled ventricular rate. For now continue Plavix, metoprolol tartrate 25 mg twice a day, Lasix 40 mg orally daily, statin, digoxin 250 mcg daily. Pneumonia is improving. PDMP PDMP Reviewed: Not Reviewed Attestations 2 Medical Necessity Statement*: Ischemic workup 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 of Care Code Acute Code for [facility] Fw Diagnoses Acute on chronic heart failure with mildly reduced ejection fraction (HFmrEF) I50.23 Coronary artery disease I25.10 Hyperlipidemia E78.5 Atrial fibrillation I48.91 Positive cardiac stress test R94.39 COPD (chronic obstructive pulmonary disease) J44.9 Bilateral pneumonia J18.9
--- NOTE | 2025-04-09 16:14 | W.PM.OPSUD ---
Surgery/Procedure H&P Update DATE OF PROCEDURE: April 09, 2025 DATE H&P PERFORMED: 04/02/25 H&P UPDATE INFORMATION: I have reviewed H&P completed within last 30 days and I have examined patient prior to procedure PREOP DIAGNOSIS: New onset of heart failure, LV dysfunction PRIMARY INDICATION FOR PROCEDURE: LV dysfunction New onset of heart failure Chest pain PLANNED PROCEDURE: Operation Date: 04/07/25 10:50 Proposed Procedures p Cardiac Catheterization(Not Applicable) - Kashif Stern MD PATIENT REASSESSED PRIOR TO SEDATION, WITH NO CHANGE NOTED: Yes PHYSICAL EXAM: alert, oriented x 3, clear to auscultation bilaterally, regular rate & rhythm and operative site marked AIRWAY EVAL/ANESTHESIA PLAN: ASA II, Risks, benefits & alternatives of sedation and/or procedure discussed and Patient agrees to continue as planned ADDITIONAL INFORMATION: All risk-benefit and alternative for the procedure were explained to the patient. Patient understand 2% risk of stroke major bleed. Patient understand 5% risk of minor bleeding oozing infection hematoma contrast-induced nephropathy urgent or emergent vascular bypass surgery. Patient agrees to it and would like to proceed with it
--- NOTE | 2025-04-09 17:14 | PM.PROC ---
Procedure Note: Date of procedure: 04/09/25 Pre-procedure diagnosis: Worsening of LV function, chest pain, CHF recurrent Post-procedure diagnosis: same Procedure: Left heart catheter was performed The left main is patent LAD has proximal high-grade significant stenosis Left circumflex is dominant vessel chronically occluded RCA is a nondominant vessel chronically occluded in the proximal segment Patent IVY to LAD Patent SVG to diagonal Patent SVG to obtuse marginal Left ventricular end-diastolic pressure normal Left ventricular ejection fraction low normal 50 to 55% Plan: Continue optimal medical management IV fluid 100 mL/h for next 5 hours Continue rest of medications Bedrest for 4 hours Possible discharge tomorrow 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 of Care Code Acute Code for [facility] Fwd
--- NOTE | 2025-04-09 17:36 | PC.NURSE ---
patient arrived back from physical laboratory assistant at 1713. Right femoral site with an angioseal. Patient's up time will be 1999.
[2025-04-09] MEDS: ATORVASTATIN 10 MG TABLET PO (20:33)
[2025-04-10] VITALS (14 sets, daily range): BP systolic 101–130; BP diastolic 46–77; PULSE 70–82; RESP 14–28; TEMP 36.6–36.9; O2SAT 90–97; BMI 27.8
[2025-04-10 03:11] LABS: Hematocrit 34.0 % (37-53); Hemoglobin 10.30 g/dL (11.27-16.99); Mean Corpuscular HGB Conc 30.3 g/dL (30-55); Mean Corpuscular Hemoglobin 26.8 pg (27-33); Mean Corpuscular Volume 88.5 fl (82-101); Nucleated Red Blood Cells % 0 %; Platelet Count 180 10^3/cmm (157-399); Red Blood Count 3.84 10^6/uL (3.85-5.65); White Blood Count 3.07 10^3/uL (3.29-11.43)
[2025-04-10 03:27] LABS: Alanine Aminotransferase 11 U/L (0-41); Albumin Level 3.3 g/dL (3.5-5.2); Alkaline Phosphatase 70 U/L (40-130); Anion Gap 14.1 (5-19); Aspartate Amino Transferase 12 U/L (0-40); Blood Urea Nitrogen 22 mg/dL (8-23); Calcium 8.6 mg/dL (8.5-10.5); Carbon Dioxide 30 mmol/L (22-29); Chloride 105 mmol/L (98-107); Creatinine Clr Calc Pharmacy 84.4477; Globulin 2.7 g/dL (1.3-4.6); Glucose 84 mg/dL (65-115); Osmolality Calculated 303 mOsm/kg (285-295); Potassium 4.1 mmol/L (3.5-5.1); Sodium 145 mmol/L (136-145); Total Protein 6.0 g/dL (6.6-8.7)
[2025-04-10] MEDS: DAPAGLIFLOZIN 10 MG TABLET PO (05:18)
[2025-04-10] MEDS: lactobacillus 1 Tablet 1 TAB PO (05:18)
[2025-04-10] MEDS: insulin glargine 100 units/1 mL 10 UNIT SUBCUT (07:09)
[2025-04-10] MEDS: ARFORMOTEROL 15 MCG/2 ML NEB INHALATION (08:00)
--- NOTE | 2025-04-10 09:06 | P.PN_ITS ---
Subjective 2 Subjective: Cardiology coverage Patient is admitted to hospital with progressive shortness of breath and chest pain. He was found to have features of right upper lobe pneumonia and heart failure Underwent cardiac catheterization yesterday and was found to have no revascularizable lesions. The patient is feeling okay. No chest pain or shortness of breath. Vitals are stable. Medications: Medication Review Details: Current Medications Acetaminophen (Acetaminophen 325 Mg Tablet) 650 mg PO Q6H PRN PRN Reason: Mild/Mod Pain Or Temp >/= 101 Acetaminophen (Acetaminophen 325 Mg Tablet) 650 mg PO Q6H PRN PRN Reason: MILD PAIN Al Hydrox/Mg Hydrox/Simethicone (Lvxe-Lmw-Xdeukdmsq-Aida 30 Ml Udc) 30 ml PO Q15M PRN PRN Reason: INDIGESTION Albuterol/Ipratropium (Ipratropium-Albuterol 3 Ml Neb) 3 ml INHALATION QID.RESPIRATORY JUAN DAVID Last Admin: 04/10/25 08:00 Dose: 3 ml Albuterol/Ipratropium (Ipratropium-Albuterol 3 Ml Neb) 3 ml INHALATION Q4H PRN PRN Reason: SHORTNESS OF BREATH Alprazolam (Alprazolam 0.25 Mg Tablet) 0.25 mg PO TID PRN PRN Reason: ANXIETY Atorvastatin Calcium (Atorvastatin 10 Mg Tablet) 10 mg PO BEDTIME JUAN DAVID Last Admin: 04/09/25 20:33 Dose: 10 mg Atropine Sulfate (Atropine 1 Mg/Ml Sdv 1 Ml) 0.5 mg IVP PRN PRN PRN Reason: Symptomatic bradycardia Budesonide (Budesonide 0.5 Mg/2 Ml Neb) 0.5 mg INHALATION BID.RESPIRATORY JUAN DAVID Last Admin: 04/10/25 08:00 Dose: 0.5 mg Calcium Carbonate (Calcium Carbonate 500 Mg Chew Tablet) 500 mg PO BID JUAN DAVID Last Admin: 04/10/25 05:19 Dose: 500 mg Clopidogrel Bisulfate (Clopidogrel 75 Mg Tablet) 75 mg PO DAILY JUAN DAVID Last Admin: 04/10/25 05:19 Dose: 75 mg Digoxin (Digoxin 250 Mcg Tablet) 250 mcg PO QAM JUAN DAVID Last Admin: 04/10/25 05:18 Dose: 250 mcg Enoxaparin Sodium (Enoxaparin 100 Mg/Ml Syringe) 90 mg 1 mg/kg (90 mg) SUBCUT Q12H JUAN DAVID Last Admin: 04/10/25 05:19 Dose: 90 mg Fentanyl (Fentanyl 50 Mcg/Ml Inj 2ml) 50 mcg IVP PRN PRN PRN Reason: PAIN Folic Acid (Folic Acid 1 Mg Tablet) 1 mg PO DAILY [facility] Last Admin: 04/10/25 05:19 Dose: 1 mg Furosemide (Furosemide 40 Mg Tablet) 40 mg PO DAILY [facility] [place] Last Admin: 04/10/25 05:18 Dose: 40 mg Gabapentin (Gabapentin 100 Mg Capsule) 200 mg PO TID [facility] [place] Last Admin: 04/10/25 05:19 Dose: 200 mg Glucagon (Glucagon 1 Mg/Ml Kit 1 Ml) 1 mg IM ONCE PRN; Protocol PRN Reason: Adult Acute Hypoglycemia Nursing Prot. Dextrose (D5w) 500 mls @ 0 mls/hr IV ONCE PRN; Protocol PRN Reason: Adult Acute Hypoglycemia Prot Dextrose (D10w) 125 mls @ 750 mls/hr IV PRN PRN; Protocol PRN Reason: Adult Acute Hypoglycemia Nursing Protocol Dextrose (D10w) 250 mls @ 1,000 mls/hr IV PRN PRN; Protocol PRN Reason: Adult Acute Hypoglycemia Nursing Protocol Sodium Chloride (Sodium Chloride 0.9%) 1,000 mls @ 100 mls/hr IV .Q10H [facility] [place] Last Admin: 04/10/25 03:27 Dose: Not Given Insulin Glargine (Insulin Glargine 100 Units/1 Ml) 10 unit SUBCUT BREAKFAST [facility] [place] Last Admin: 04/10/25 07:09 Dose: 10 unit Insulin Human Lispro (Insulin Lispro 100 Unit/1 Ml) 0 unit SUBCUT WM&BEDTIME [facility] [place]; Protocol Last Admin: 04/10/25 06:55 Dose: Not Given Lactobacillus Acidophilus (Lactobacillus 1 Tablet) 1 tab PO BID [facility] [place] Last Admin: 04/10/25 05:18 Dose: 1 tab Levothyroxine Sodium (Levothyroxine 125 Mcg Tablet) 125 mcg PO QAM [facility] [place] Last Admin: 04/10/25 05:19 Dose: 125 mcg Loratadine (Loratadine 10 Mg Tablet) 10 mg PO QAM [facility] [place] Last Admin: 04/10/25 05:19 Dose: 10 mg Magnesium Hydroxide (Magnesium Hydroxide 30 Ml Udc) 30 ml PO DAILY PRN PRN Reason: CONSTIPATION Metoprolol Tartrate (Metoprolol Tartrate 25 Mg Tablet) 25 mg PO BID [facility] [place] Last Admin: 04/10/25 05:19 Dose: 25 mg Naloxone HCl (Naloxone 0.4 Mg/Ml Sdv) 0.1 mg IVP Q2M PRN PRN Reason: RESPIRATORY RATE < 8/MIN Nitroglycerin (Nitroglycerin 0.4 Mg Sublingual Tablet) 0.4 mg SUBLINGUAL Q5M PRN PRN Reason: CHEST PAIN Nitroglycerin (Nitroglycerin 0.4 Mg Sublingual Tablet) 0.4 mg SUBLINGUAL Q5M PRN PRN Reason: CHEST PAIN Ondansetron HCl (Ondansetron 2 Mg/Ml Sdv 2 Ml) 4 mg IVP Q8H PRN PRN Reason: vomiting, or N/V if npo Pantoprazole Sodium (Pantoprazole Dr 40 Mg Tablet) 40 mg PO DAILY [facility] [place] Last Admin: 04/10/25 05:19 Dose: 40 mg Potassium Chloride (Potassium Chloride Er 10 Meq Tablet) 10 meq PO DAILY [facility] [place] Last Admin: 04/10/25 05:19 Dose: 10 meq Prednisone (Prednisone 10 Mg Tablet) 10 mg PO DAILY [facility] [place] Last Admin: 04/10/25 05:18 Dose: 10 mg Sertraline HCl (Sertraline 100 Mg Tablet) 100 mg PO QPM [facility] [place] Last Admin: 04/09/25 17:32 Dose: 100 mg Tamsulosin HCl (Tamsulosin 0.4 Mg Capsule) 0.4 mg PO BID [facility] [place] Last Admin: 04/10/25 05:24 Dose: 0.4 mg Temazepam (Temazepam 15 Mg Capsule) 15 mg PO BEDTIME PRN PRN Reason: INSOMNIA Vitamin D (Cholecalciferol (Vitamin D3) 1,000 Unit Tablet) 2,000 unit PO DAILY [facility] [place] Last Admin: 04/10/25 05:18 Dose: 2,000 unit Vitals/I&O/Wt Last Vital Signs Temp 97.9 F 04/10/25 07:36 Pulse 71 04/10/25 08:00 Resp 16 04/10/25 08:00 BP 101/46 04/10/25 07:36 Pulse Ox 96 04/10/25 08:00 O2 Del Method Nasal Cannula 04/10/25 08:00 O2 Flow Rate 3 04/10/25 08:00 04/09/25 04/10/25 04/10/25 22:59 06:59 14:59 Intake Total 590 / 590 240 / 240 Output Total 400 / 400 Balance 190 / 190 240 / 240 Weight last 48 hrs Weight 193 lb 9.054 oz Weight 189 lb 7.3 oz Physical Exam 2 Narrative: GENERAL: The patient is alert and oriented times three. Not in any acute distress. HEENT: No significant pallor, icterus or lymphadenopathy.Oral cavity: There are no mucous membrane lesions. NECK: Trachea appears to be central. No masses noted. No JVD or thyromegaly appreciated. RESPIRATORY: Chest is symmetrical. No intercostals muscle retraction or any accessory muscle activation. There is no chest wall tenderness. Breath sounds are heard bilaterally. Bilateral expiratory wheeze BREASTS: Deferred. HEART: The heart sounds are normal. No S3 or S4. No significant murmurs. No pericardial rub ABDOMEN: No vessel pulsations or distention. No tenderness. No organomegaly appreciated. Bowel sounds are normally heard. : Deferred. RECTAL: Deferred. LYMPHATIC: No lymphadenopathy noted in the neck. EXTREMITIES: Right groin has no hematoma or bleeding. MUSCULOSKELETAL: No acute joint deformities or swelling SKIN: There are no significant rashes or ecchymosis NEUROPSYCHIATRIC: The patient is alert and oriented x3. Appears to be in a good mood. No tremors or rigidity noted. Data 04/10/25 02:33 04/10/25 02:33 Other Labs: Laboratory Last Values WBC 3.07 10^3/uL (3.29-11.43) L 04/10/25 02:33 RBC 3.84 10^6/uL (3.85-5.65) L 04/10/25 02:33 Hgb 10.30 g/dL (11.27-16.99) L 04/10/25 02:33 Hct 34.0 % (37-53) L 04/10/25 02:33 MCV 88.5 fl (82-101) 04/10/25 02:33 MCH 26.8 pg (27-33) L 04/10/25 02:33 MCHC 30.3 g/dL (30-55) 04/10/25 02:33 RDW 16.9 % (12.1-15.1) H 04/10/25 02:33 Plt Count 180 10^3/cmm (157-399) 04/10/25 02:33 MPV 9.3 fL (7.4-10.4) 04/10/25 02:33 Neut % (Auto) 66.1 % 04/10/25 02:33 Lymph % (Auto) 19.2 % 04/10/25 02:33 [place] % (Auto) 12.1 % 04/10/25 02:33 Eos % (Auto) 2.0 % 04/10/25 02:33 Baso % (Auto) 0.3 % 04/10/25 02:33 Neut # (Auto) 2.03 10^3/uL (1.8-7.7) 04/10/25 02:33 Lymph # (Auto) 0.6 10^3/uL (0.8-4.8) L 04/10/25 02:33 [place] # (Auto) 0.4 10^3/uL (0.2-0.9) 04/10/25 02:33 Eos # (Auto) 0.1 10^3/uL (0.0-0.8) 04/10/25 02:33 Baso # (Auto) 0.0 10^3/uL (0.0-0.1) 04/10/25 02:33 Nucleated RBC % (auto) 0 % 04/10/25 02:33 Nucleated RBCs # 0.0 /100WBC 04/10/25 02:33 Specimen Type Arterial 04/01/25 15:45 Sample Site Radial, left 04/01/25 15:45 ABG pH 7.47 (7.35-7.45) H 04/01/25 15:45 ABG pCO2 35.0 mmHg (35-45) 04/01/25 15:45 ABG pO2 88.5 mmHg (80.0-100.0) 04/01/25 15:45 ABG PO2/FiO2 Ratio 276 04/01/25 15:45 ABG HCO3 25.2 mmol/L (22-26) 04/01/25 15:45 ABG O2 Saturation 97.9 04/01/25 15:45 ABG Base Excess 1.6 mmol/L (-2.0-2.0) 04/01/25 15:45 Derek Test Pos 04/01/25 15:45 A-a O2 Gradient 12.3 mmHg (5-10) H 04/01/25 15:45 Hematocrit 30.7 % (42-52) L 04/01/25 15:45 Hgb O2 Saturation 95.9 % (95-100) 04/01/25 15:45 Carboxyhemoglobin 2.0 %THgb (0.4-20.1) 04/01/25 15:45 Methemoglobin 0.0 % (0.4-1.5) L 04/01/25 15:45 Total Hemoglobin 10.0 g/dL (14-18) L 04/01/25 15:45 Sodium 136.0 mmol/L (131-143) 04/01/25 15:45 Potassium 3.9 mmol/L (3.5-5.0) 04/01/25 15:45 Glucose 258.0 mg/dL (70-115) H 04/01/25 15:45 Ionized Calcium 1.2 mmol/L (1.1-1.4) 04/01/25 15:45 O2 Delivery Device Nc 04/01/25 15:45 O2 Liters/Min 3.0 % 04/01/25 15:45 FiO2 32.0 % 04/01/25 15:45 Parts Representative ID [place] 04/01/25 15:45 Sodium 145 mmol/L (136-145) 04/10/25 02:33 Potassium 4.1 mmol/L (3.5-5.1) 04/10/25 02:33 Chloride 105 mmol/L (98-107) 04/10/25 02:33 Carbon Dioxide 30 mmol/L (22-29) H 04/10/25 02:33 Anion Gap 14.1 (5-19) 04/10/25 02:33 BUN 22 mg/dL (8-23) 04/10/25 02:33 Creatinine 0.9 mg/dL (0.7-1.2) 04/10/25 02:33 GFR Calculation 83.4 mL/min (90-130) L 04/10/25 02:33 Glucose 84 mg/dL (65-115) 04/10/25 02:33 POC Glucose 93 mg/dL (70-110) 04/10/25 06:24 Calculated Osmolality 303 mOsm/kg (285-295) H 04/10/25 02:33 Lactic Acid 5.4 mmol/L (0.5-2.2) H* 04/01/25 14:02 Lactic Acid (Sepsis) 2.5 mmol/L (0.5-2.2) H 04/01/25 16:08 Calcium 8.6 mg/dL (8.5-10.5) 04/10/25 02:33 Total Bilirubin 0.4 mg/dL (0.15-1.2) 04/10/25 02:33 AST 12 U/L (0-40) 04/10/25 02:33 ALT 11 U/L (0-41) 04/10/25 02:33 Alkaline Phosphatase 70 U/L (40-130) 04/10/25 02:33 Troponin T Baseline 83 ng/L (0-15) H 04/01/25 14:02 Troponin T 120 Minute 83.37 ng/L (0-15) H 04/01/25 16:08 Delta Troponin T 0.37 ABS# (0-10) 04/01/25 16:08 Troponin T Hi Sens 6Hr 80.58 ng/L (0-15) H 04/01/25 20:50 Troponin T Hi Sens 6Hr Delta -2.42 ng/L (0-12) L 04/01/25 20:50 NT-Pro-B Natriuret Pep 4817 pg/mL (0-125) H 04/06/25 05:06 Total Protein 6.0 g/dL (6.6-8.7) L 04/10/25 02:33 Albumin 3.3 g/dL (3.5-5.2) L 04/10/25 02:33 Globulin 2.7 g/dL (1.3-4.6) 04/10/25 02:33 TSH 1.31 uIU/mL (0.27-4.20) 04/03/25 04:19 Nasal MRSA (PCR) Not detected (Negative) 04/03/25 16:40 Digoxin 0.8 ng/mL (0.6-1.2) 04/02/25 19:39 C. difficile (PCR) Negative (Negative) 04/03/25 19:00 Influenza A (PCR) Negative (Negative) 04/01/25 14:45 Influenza Type B (PCR) Negative (Negative) 04/01/25 14:45 RSV (PCR) Negative (Negative) 04/01/25 14:45 SARS-CoV-2 (PCR) Negative (Negative) 10/30/25 14:45 A&P Assessment and plan 1. Acute on chronic heart failure with mildly reduced ejection fraction (HFmrEF): Currently compensated. May continue with current medications. 2. Coronary artery disease of [place] artery of [place] heart with stable angina pectoris: Cardiac catheterization May yesterday revealed no revascularizable lesions. Based on the angiogram findings, it was opted to treat him medically. Currently remaining stable and asymptomatic. The chest pain most likely from the pneumonia. May continue on the current medications. 3. Paroxysmal atrial fibrillation: Heart rate is under control. No specific symptoms of arrhythmia. Continue on the current management. 4. Pneumonia of left upper lobe due to Pseudomonas species: . Clinically improving. Management as per the primary. 5. COPD with acute exacerbation: Patient is on bronchodilator treatment. May be continued on the current treatment. 6. Acute on chronic hypoxic respiratory failure: The oxygenation seems to be appropriate. May continue on the current management. Plan: If the patient continues to remain stable, may be discharged home from a cardiac standpoint. Appointment at the [facility] in 2 weeks to be seen by the nurse practitioner Appointment with the as scheduled PDMP PDMP Reviewed: Not Reviewed Attestations 2 Medical Necessity Statement*: Possible discharge home today 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 of Care Code 52075 Diagnoses Acute on chronic heart failure with mildly reduced ejection fraction (HFmrEF) I50.23 Coronary artery disease of [place] artery of [place] heart with stable angina pectoris I25.118 Associated angina: with stable angina Coronary Disease-Associated Artery/Lesion type: [place] artery [place] vs. transplanted heart: [place] heart Paroxysmal atrial fibrillation I48.0 Atrial fibrillation type: paroxysmal Pneumonia of left upper lobe due to Pseudomonas species J15.1 Laterality: left Lung location: upper lobe of lung COPD with acute exacerbation J44.1 Acute on chronic hypoxic respiratory failure J96.21
--- NOTE | 2025-04-10 09:51 | P.DS_ITS ---
Discharge Providers Date of Admission: 04/01/25 19:22 Date of Discharge: April 10, 2025 Attending Provider at Admission: Luis Eduardo Phillips MD Attending Provider at Discharge: Fran Wyatt MD Consults: Pulmonology Cardiology Primary Care Provider: PATO Hernandez Diagnoses at Discharge Discharge Diagnosis 1. Acute on chronic heart failure with mildly reduced ejection fraction (HFmrEF): 2. 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 Paroxysmal atrial fibrillation: 4. Positive cardiac stress test: 5. Pneumonia of left upper lobe due to Pseudomonas species: 6. COPD with acute exacerbation: 7. Acute on chronic hypoxic respiratory failure: 8. Diarrhea: Reason for Visit Reason for Visit: SOB Brief History: Gabino Jones Sr is a 69 year old male with history of severe COPD and recent vomiting aspirated into his left upper lung was admitted 03/15/2025 to 03/17/2025 with subsequent outpatient ertapenem infusion for 10 days. Patient denies coughing fits after eating or apparent choking. Patient states that he lives in a camper by himself but was able to drive himself to his IV infusions for those 10 days. He has done okay but [facility] and the provider thought his lungs sounded worse. He has had diarrhea x 2-1/2 days no blood but it has been black or brown. He has had diarrhea 5-6 times a day normal BMs 1-2 a day he denies pain or nausea. He has been feeling sick for about 3 days and states that today he felt a little confused. Patient states his usual oxygen requirement is 3 L/min at home he denies sleep apnea. Tobacco was quit in 2017 on May 12 Patient's next of kin is his daughter Sera Jones who lives in [place]. He states he does not talk to her very often. 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 Past medical history had coronary artery disease with a stent in [address] bypass March 14, 2019 Hospital Course Hospital Course Patient was admitted to the hospital further evaluation and management of acute hypoxic respiratory failure in setting of COPD exacerbation and possible pneumonia. Patient has recently finished course of IV antibiotics for pneumonia. Repeat imaging showed improvement in patient's pneumonia. He was started on broad-spectrum empiric IV antibiotics. Started on treatment for COPD exacerbation with steroids and nebulization treatment. Given recurrent admissions pulmonology was consulted. On admission he was found to have elevated troponin for which echocardiogram was done which showed new low EF of 45% with regional wall motion abnormality. He underwent cardiac stress test which is concerning for mild guy-infarct ischemia. To rule out ACS in setting of new low EF and regional wall motion abnormality he underwent cardiac angiogram on 04/09 in which he was found to have nonobstructive CAD. He is been discharged in hemodynamically stable condition with counseling for congestive heart failure lifestyle modification, restricting fluid to less than 1500 cc. He has been continued on Jardiance. He is advised to take prednisone taper along with 40 mg of oral Lasix with as needed Lasix for weight gain of more than 5 pounds. Physical Exam Narrative: General Well-developed well-nourished male in no acute cardiopulmonary stress Cardiovascular regular rate and rhythm no murmurs rubs gallops Lungs good air movement mildly diminished in the upper lung rivera with mild left lower lung field crackles. He has prolonged extra phase and diffuse wheezing today throughout Abdomen positive bowel tones soft nontender nondistended Calves 2+ to 3 bilateral pitting edema Skin warm and dry Hygiene good Discharge Data Studies Completed and Pending Completed Studies During Hospitalization Category Date Time Status CT chest wo con [id number] Routine Cat Scan 04/02/25 18:16 Completed Sestamibi Stress Test Request Routine Exams 04/04/25 15:56 Completed XR chest 1V portable [id number] Stat Exams 04/01/25 14:16 Completed NM annie perf SPECT r/s* [id number] Routine Nuc Med 04/05/25 15:56 Completed CV. echo complete* [id number] Routine Ultrasound 04/03/25 19:22 Completed Pending at discharge Category Date Time Status WORKPLACE RELATIONS ADVISER request for service Routine Exams 04/08/25 07:00 Stop Req WORKPLACE RELATIONS ADVISER request for service Routine Exams 04/09/25 07:00 Ordered Radiology Impressions Chest X-Ray 04/01/25 14:16 IMPRESSION: 1. Findings suspicious for active pneumonia in the RIGHT basal region superimposed on chronic changes. 2. Stable appearing extensive chronic change in the LEFT lung. Mild cardiomegaly unchanged. Chest CT 04/02/25 18:16 IMPRESSION: Severe centrilobular and paraseptal emphysema. There has been some improvement in left upper lobe airspace disease. Recommend CT follow-up to document complete resolution as underlying mass lesion is difficult to exclude. COMMENTS: The presence of pulmonary emphysema on CT is an independent risk factor for lung cancer. In the absence of a history or active diagnosis of lung cancer, it is recommended that this patient with emphysema be evaluated for enrollment in a low dose CT lung cancer screening program. Echocardiogram: CONCLUSIONS Mildly reduced left ventricular systolic function. EF 47%. Paradoxical septal motion. Severe hypokinesis of the mid and basal inferior and inferolateral wall segments. Mild right ventricular enlargement. Paradoxical septal motion. Lower limits of normal right ventricular systolic function. Mild tricuspid valve regurgitation. Eduardo Estrada MD, FACC (Electronically Signed) Final Date: 03 April 2025 19:14 Lexiscan stress test: PERFUSION FINDINGS There is a large, severe predominantly fixed perfusion defect in the inferior wall consitent with infarction with a small amount of guy-infarct ischemia. FUNCTIONAL RESULTS (calculated via Gated SPECT) Stress Image LV EF (%): 59 Stress EDV (mL):119 TID: 1.19 Stress ESV (mL):49 FUNCTIONAL FINDINGS: Normal LV cavity size. Mid and basal inferior wall hypokinesis with normal EF 59%. IMPRESSIONS Large inferior wall infarction with a small amount of guy-infarct ischemia. Mid and basal inferior wall hypokinesis with normal EF 59%. Eduardo Estrada MD, FACC (Electronically Signed) Final Date: 05 April 2025 13:15 Laboratory Results WBC 3.07 10^3/uL (3.29-11.43) L 04/10/25 02:33 RBC 3.84 10^6/uL (3.85-5.65) L 04/10/25 02:33 Hgb 10.30 g/dL (11.27-16.99) L 04/10/25 02:33 Hct 34.0 % (37-53) L 04/10/25 02:33 MCV 88.5 fl (82-101) 04/10/25 02:33 MCH 26.8 pg (27-33) L 04/10/25 02:33 MCHC 30.3 g/dL (30-55) 04/10/25 02:33 RDW 16.9 % (12.1-15.1) H 04/10/25 02:33 Plt Count 180 10^3/cmm (157-399) 04/10/25 02:33 MPV 9.3 fL (7.4-10.4) 04/10/25 02:33 Neut % (Auto) 66.1 % 04/10/25 02:33 Lymph % (Auto) 19.2 % 04/10/25 02:33 Curry % (Auto) 12.1 % 04/10/25 02:33 Eos % (Auto) 2.0 % 04/10/25 02:33 Baso % (Auto) 0.3 % 04/10/25 02: Neut # (Auto) 2.03 10^3/uL (1.8-7.7) 04/10/25 02:33 Lymph # (Auto) 0.6 10^3/uL (0.8-4.8) L 04/10/25 02:33 Curry # (Auto) 0.4 10^3/uL (0.2-0.9) 04/10/25 02:33 Eos # (Auto) 0.1 10^3/uL (0.0-0.8) 04/10/25 02:33 Baso # (Auto) 0.0 10^3/uL (0.0-0.1) 04/10/25 02:33 Nucleated RBC % (auto) 0 % 04/10/25 02: Nucleated RBCs # 0.0 /100WBC 04/10/25 02:33 Specimen Type Arterial 04/01/25 15:45 Sample Site Radial, left 04/01/25 15:45 ABG pH 7.47 (7.35-7.45) H 04/01/25 15:45 ABG pCO2 35.0 mmHg (35-45) 04/01/25 15:45 ABG pO2 88.5 mmHg (80.0-100.0) 04/01/25 15:45 ABG PO2/FiO2 Ratio 276 04/01/25 15:45 ABG HCO3 25.2 mmol/L (22-26) 04/01/25 15:45 ABG O2 Saturation 97.9 04/01/25 15:45 ABG Base Excess 1.6 mmol/L (-2.0-2.0) 04/01/25 15:45 Derek Test Pos 04/01/25 15:45 A-a O2 Gradient 12.3 mmHg (5-10) H 04/01/25 15:45 Hematocrit 30.7 % (42-52) L 04/01/25 15:45 Hgb O2 Saturation 95.9 % (95-100) 04/01/25 15:45 Carboxyhemoglobin 2.0 %THgb (0.4-20.1) 04/01/25 15:45 Methemoglobin 0.0 % (0.4-1.5) L 04/01/25 15:45 Total Hemoglobin 10.0 g/dL (14-18) L 04/01/25 15:45 Sodium 136.0 mmol/L (131-143) 04/01/25 15:45 Potassium 3.9 mmol/L (3.5-5.0) 04/01/25 15:45 Glucose 258.0 mg/dL (70-115) H 04/01/25 15:45 Ionized Calcium 1.2 mmol/L (1.1-1.4) 04/01/25 15:45 O2 Delivery Device Nc 04/01/25 15:45 O2 Liters/Min 3.0 % 04/01/25 15:45 FiO2 32.0 % 04/01/25 15:45 Laboratory Machinist ID Monro 04/01/25 15:45 Sodium 145 mmol/L (136-145) 04/10/25 02:33 Potassium 4.1 mmol/L (3.5-5.1) 04/10/25 02:33 Chloride 105 mmol/L (98-107) 04/10/25 02:33 Carbon Dioxide 30 mmol/L (22-29) H 04/10/25 02:33 Anion Gap 14.1 (5-19) 04/10/25 02:33 BUN 22 mg/dL (8-23) 04/10/25 02:33 Creatinine 0.9 mg/dL (0.7-1.2) 04/10/25 02:33 GFR Calculation 83.4 mL/min (90-130) L 04/10/25 02:33 Glucose 84 mg/dL (65-115) 04/10/25 02:33 POC Glucose 93 mg/dL (70-110) 04/10/25 06:24 Calculated Osmolality 303 mOsm/kg (285-295) H 04/10/25 02:33 Lactic Acid 5.4 mmol/L (0.5-2.2) H* 04/01/25 14:02 Lactic Acid (Sepsis) 2.5 mmol/L (0.5-2.2) H 04/01/25 16:08 Calcium 8.6 mg/dL (8.5-10.5) 04/10/25 02:33 Total Bilirubin 0.4 mg/dL (0.15-1.2) 04/10/25 02:33 AST 12 U/L (0-40) 04/10/25 02:33 ALT 11 U/L (0-41) 04/10/25 02:33 Alkaline Phosphatase 70 U/L (40-130) 04/10/25 02:33 Troponin T Baseline 83 ng/L (0-15) H 04/01/25 14:02 Troponin T 120 Minute 83.37 ng/L (0-15) H 04/01/25 16:08 Delta Troponin T 0.37 ABS# (0-10) 04/01/25 16:08 Troponin T Hi Sens 6Hr 80.58 ng/L (0-15) H 04/01/25 20:50 Troponin T Hi Sens 6Hr Delta -2.42 ng/L (0-12) L 04/01/25 20:50 NT-Pro-B Natriuret Pep 4817 pg/mL (0-125) H 04/06/25 05:06 Total Protein 6.0 g/dL (6.6-8.7) L 04/10/25 02:33 Albumin 3.3 g/dL (3.5-5.2) L 04/10/25 02:33 Globulin 2.7 g/dL (1.3-4.6) 04/10/25 02:33 TSH 1.31 uIU/mL (0.27-4.20) 04/03/25 04:19 Nasal MRSA (PCR) Not detected (Negative) 04/03/25 16:40 Digoxin 0.8 ng/mL (0.6-1.2) 04/02/25 19:39 C. difficile (PCR) Negative (Negative) 04/03/25 19:00 Influenza A (PCR) Negative (Negative) 04/01/25 14:45 Influenza Type B (PCR) Negative (Negative) 04/01/25 14:45 RSV (PCR) Negative (Negative) 04/01/25 14:45 SARS-CoV-2 (PCR) Negative (Negative) 04/01/25 14:45 Procedures Performed Cardiac angiogram: 04/09: Date of procedure: 04/09/25 Pre-procedure diagnosis: Worsening of LV function, chest pain, CHF recurrent Post-procedure diagnosis: same Procedure: Left heart catheter was performed The left main is patent LAD has proximal high-grade significant stenosis Left circumflex is dominant vessel chronically occluded RCA is a nondominant vessel chronically occluded in the proximal segment Patent IVY to LAD Patent SVG to diagonal Patent SVG to obtuse marginal Left ventricular end-diastolic pressure normal Left ventricular ejection fraction low normal 50 to 55% Vitals Last Vital Signs Temp 97.9 F 04/10/25 07:36 Pulse 73 04/10/25 09:31 Resp 27 H 04/10/25 09:31 BP 105/47 04/10/25 09:31 Pulse Ox 95 04/10/25 09:31 O2 Del Method Nasal Cannula 04/10/25 08:00 O2 Flow Rate 3 04/10/25 08:00 Discharge Plan Discharge Patient Disposition: Home Condition: Stable Prescriptions: New arformoterol 15 mcg/2 mL Solution For Nebulization 15 mcg inhalation BID.RESPIRATORY Qty: 120 0RF budesonide 0.5 mg/2 mL Suspension For Nebulization 0.5 mg inhalation BID.RESPIRATORY Qty: 60 0RF Continued diclofenac sodium 1 % gel 4 g topical QID PRN (Reason: joint pain) Qty: 100 3RF Rx Instructions: apply to single knee, ankle, foot; for foot includes sole/toes/top of foot insulin glargine [Lantus Solostar U-100 Insulin] 100 unit/mL (3 mL) insulin pen 10 unit SUBCUT DAILY Qty: 15 0RF folic acid 1 mg tablet 1 mg PO DAILY Qty: 30 0RF Stiolto Respimat 2.5-2.5 mcg/actuation mist 2 puff inhalation DAILY 180 Days Qty: 4 6RF Eliquis 5 mg Tablet 5 mg PO BID Qty: 60 0RF potassium chloride 20 mEq Tablet Extended Release 20 meq PO QAM furosemide [Lasix] 40 mg tablet 40 mg PO QAM Flomax 0.4 mg capsule 0.4 mg PO BID albuterol sulfate 90 mcg/actuation HFA aerosol inhaler 2 inh INHALATION Q4H PRN (Reason: shortness of breath or wheezing) Qty: 18 0RF (DME) pen needle, diabetic [BD Ultra-Fine Micro Pen Needle] 32 gauge x 1/4 needle See Rx Instructions .ROUTE .MEDSUPPLY Qty: 50 0RF Rx Instructions: As directed (DME) lancets Misc See Rx Instructions .ROUTE .MEDSUPPLY Qty: 100 0RF Rx Instructions: As directed (DME) blood-glucose meter [Blood Glucose Monitoring] Kit See Rx Instructions .ROUTE .MEDSUPPLY Qty: 1 0RF Rx Instructions: As directed levothyroxine 125 mcg Tablet 125 mcg PO QAM atorvastatin 20 mg Tablet 10 mg PO BEDTIME albuterol sulfate 2.5 mg /3 mL (0.083 %) Solution For Nebulization 2.5 mg INHALATION Q6H PRN (Reason: Shortness Of Breath) sertraline 100 mg Tablet 100 mg PO QPM clopidogrel 75 mg Tablet 75 mg PO DAILY aspirin 81 mg Tablet,Delayed Release (Dr/Ec) 81 mg PO DAILY gabapentin 100 mg Capsule 200 mg PO TID cholecalciferol (vitamin D3) [Vitamin D3] 50 mcg (2,000 unit) Tablet 50 mcg PO DAILY sennosides-docusate sodium 8.6-50 mg tablet 1 tab PO DAILY prednisone 10 mg tablet See Taper PO DIRECTED Qty: 42 0RF Taper: predniSONE 60-10 60 mg Daily for 2 Days and 0 Hour 50 mg Daily for 2 Days and 0 Hour 40 mg Daily for 2 Days and 0 Hour 30 mg Daily for 2 Days and 0 Hour 20 mg Daily for 2 Days and 0 Hour 10 mg Daily for 2 Days and 0 Hour Rx Instructions: see taper instructions loratadine 10 mg tablet 10 mg PO QAM nitroglycerin [Nitrostat] 0.4 mg Tablet, Sublingual 0.4 mg SUBLINGUAL Q5M PRN (Reason: Chest Pain) Rx Instructions: do not exceed 3 doses per episode digoxin 250 mcg (0.25 mg) tablet 250 mcg PO QAM calcium carbonate 500 mg calcium (1,250 mg) Tablet 500 mg PO BID pantoprazole 40 mg tablet,delayed release (DR/EC) 40 mg PO BID Jardiance 25 mg tablet 12.5 mg PO DAILY cyanocobalamin (vitamin B-12) [Vitamin B-12] 100 mcg Tablet 100 mcg PO DAILY Changed metoprolol tartrate 25 mg Tablet 25 mg PO BID Qty: 60 0RF Discharge Order = DC NOW: Discharge Order (Routine); Ordered 04/10/25 Ordered By: Fran Wyatt Referrals: Mathew Sanchez MD [Physician, Cardiology] - 05/06/25 10:00 am Isela Gipson FNP [Primary Care Provider, Nurse Practitioner] Referral Note: We have notified your physician's clinic of the need for a follow-up appointment to be scheduled. If you have not heard from them within the next 2 business days, please call them directly. Patient Instructions: Opioid Safety, Patient Portal & Elizabeth Instructions Activity Restrictions/Additional Instructions: Restrict fluid intake to less than 1500 cc, salt intake to less than 2 g daily. Advised to check his weight daily at home. Is advised that weight today would be the dry weight and if body weight increases by around 5 pounds, patient is to take an extra dose of Lasix daily till body weight comes down to weight today. If not able to come down to dry body weight in 1 week, then is to call cardiology office for further recommendations. Patient was counseled in detail to take medications regularly as prescribed. Check your blood pressure daily at home maintain a blood pressure diary with goal blood pressure less than 140/90 mmHg. Dose of metoprolol has been changed to 25 mg oral daily. I plan to possibly add ARB versus ARNI as an outpatient if blood pressures remain stable. Discharge Attestations Time Spent in Discharge Care*: greater than 30 min Specific Discharge Activities: educating patient, educating and/or supporting family/caregiver, discussing with pcp/other providers, discussing with business case analyst/social workers/dc planners, documenting/other paperwork and evaluating patient/reviewing data Status at Discharge: Cognitive status at discharge: cognitively intact , Behavioral status at discharge: cooperative , Functional status at discharge: independent ambulation , Overall status at discharge: patient is back to baseline Quality Metrics Clinical Quality Measures [ No reported AMI, CVA or VTE this stay] 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 of Care Code 11692 Total time (in minutes) for Discharge: 65 Diagnoses Acute on chronic heart failure with mildly reduced ejection fraction (HFmrEF) I50.23 Coronary artery disease of shosh[place]ann[place] artery of shosh[place]bannock heart with stable angina pectoris I25.118 Associated angina: with stable angina Coronary Disease-Associated Artery/Lesion type: shoshone-bannock artery [place] vs. transplanted heart: shoshone-bannock heart Paroxysmal atrial fibrillation I48.0 Atrial fibrillation type: paroxysmal Positive cardiac stress test R94.39 Pneumonia of left upper lobe due to Pseudomonas species J15.1 Laterality: left Lung location: upper lobe of lung COPD with acute exacerbation J44.1 Acute on chronic hypoxic respiratory failure J96.21 Diarrhea R19.7
--- NOTE | 2025-04-10 10:13 | PC.NURSE ---
per dr greenfield verbal order, patient to be given 20mg IVP Lasix prior to discharge. nurse entered order- verbal order read back.
[2025-04-10] MEDS: FUROsemide 10 mg/mL SDV 2mL 20 MG IVP (10:44)
== END 2025-04-10 11:15 | disposition home or self-care (01) | DRG 871 ==
LOC: ER 15:49 → MEDSURG 19:22 → CSU 04-06 17:22
PROVIDERS: Internal Medicine Cardiovascular Disease; Admitting Provider Internal Medicine; Emergency Provider Emergency Medicine; PCP Nurse Practitioner; Visit Provider Student in an Organized Health Care Education/Training Program
PROC: 4A023N7 Measurement of Cardiac Sampling and Pressure, Left Heart, Percutaneous Approach (ICD-10-PCS; principal; 2025-04-09 16:00)
DX: A41.52 Sepsis due to Pseudomonas (principal); I21.4 Non-ST elevation (NSTEMI) myocardial infarction; J96.21 Acute and chronic respiratory failure with hypoxia; J15.1 Pneumonia due to Pseudomonas; I50.23 Acute on chronic systolic (congestive) heart failure; J44.1 Chronic obstructive pulmonary disease with (acute) exacerbation; E87.20 Acidosis, unspecified; J44.0 Chronic obstructive pulmonary disease with (acute) lower respiratory infection; I11.0 Hypertensive heart disease with heart failure; D63.1 Anemia in chronic kidney disease; E78.5 Hyperlipidemia, unspecified; K21.9 Gastro-esophageal reflux disease without esophagitis; E03.9 Hypothyroidism, unspecified; J84.10 Pulmonary fibrosis, unspecified; R19.7 Diarrhea, unspecified; I45.10 Unspecified right bundle-branch block; I25.118 Atherosclerotic heart disease of native coronary artery with other forms of angina pectoris; I48.0 Paroxysmal atrial fibrillation; E11.22 Type 2 diabetes mellitus with diabetic chronic kidney disease; E11.51 Type 2 diabetes mellitus with diabetic peripheral angiopathy without gangrene; I73.9 Peripheral vascular disease, unspecified; Z79.01 Long term (current) use of anticoagulants; Z79.899 Other long term (current) drug therapy; Z99.81 Dependence on supplemental oxygen; Z85.46 Personal history of malignant neoplasm of prostate; Z79.82 Long term (current) use of aspirin; Z79.02 Long term (current) use of antithrombotics/antiplatelets; Z79.890 Hormone replacement therapy; Z86.0100 Personal history of colon polyps, unspecified; Z90.49 Acquired absence of other specified parts of digestive tract; Z95.1 Presence of aortocoronary bypass graft; Z87.891 Personal history of nicotine dependence; Z95.820 Peripheral vascular angioplasty status with implants and grafts
CPT/HCPCS: 36415; 36416; 36600; 71045; 71250; 78452; 80048; 80051; 80053; 80162; 82330; 82805; 82962; 83605; 83880; 84443; 84484; 85025; 87040; 87070; 87077; 87186; 87205; 87493; 87637; 92526; 92610; 93005; 93017; 93306; 93459; 94640; 94664; 96361; 96365; 96366; 96372; 96375; 97116; 97161; 97165; 99152; 99153; 99285; A9500; C1760; C1769; C1887; C1894; G0269; J1100; J1644; J1650; J1815; J1938; J2020; J2185; J2250; J2785; J2919; J3010; J3480; J3490; J7030; J7040; J7050; J7512; J7605; J7613; J7626; J9999; Q0163; Q3014; Q9967

== ENCOUNTER 2025-04-11 18:14 | Emergency (ER) | payer OTHER, SELFPAY ==
--- OUTSIDE RECORDS SUMMARY | 2024-02-27 09:00 | XMS_ITS ---
Author Organization [facility] Address [address] [place] [address] Care Team Providers Care Bottler Name Role Phone Sameera Patel Unavailable REASON FOR VISIT 3m f/u With BMP and bone density test, for possible Prolia.,Source Provider:RAÚL MATUTE Encounters Encounter Location Date Provider Diagnosis [facility] [address] [place] [address] [address] [place] [address] 02/27/2024 Sameera Patel Plan Of Treatment No Information Progress Notes * SEA HODGEDOB:1955 (69 yo M)Acc No.[id number]:02/27/2024 Progress Notes Patient: SEA BELL CYRUS Provider: PATO Stover :1955 A ge:68 Y S ex:Male Date:02/27/2024 Address: [address], [place] Subjective: * Chief Complaints: * 3 m f/u With BMP and bone density test, for possible Prolia.,Source Provider:RAÚL MATUTE * Electronic signature of PATO Saldana on 04/11/2025 at 06:27 PM DIVINE HEALER Sign off status: Pending * Provider: PATO Stover Date: 0 02/27/2024 Generated for Halie preciado/Fiordaliza/eTransmitting on: 1 06/11/2024 06:27 PM DIVINE HEALER
--- OUTSIDE RECORDS SUMMARY | 2024-03-16 05:30 | XMS_ITS ---
Author Organization [facility] Address [address] [place] [address] Care Team Providers Care Manager Requirements Name Role Phone Sameera Patel [phone] REASON FOR VISIT 3m f/u With BMP and bone density test, for possible Prolia., Encounters Encounter Location Date Provider Diagnosis [facility] [address] [place] [address] [address] [place] [address] 03/16/2024 Sameera Patel Plan Of Treatment No Information Progress Notes * SEA HODGEDOB:1955 (69 yo M)Acc No.[id number]:03/16/2024 Progress Notes Patient: SEA BELL CYRUS Provider: PATO Stover :1955 A ge:68 Y S ex:Male Date:03/16/2024 Address: [address], [place] Subjective: * Chief Complaints: * 3 m f/u With BMP and bone density test, for possible Prolia., * Electronic signature of PATO Saldana on 04/11/2025 at 06:27 PM MEDICAL RECORD CONSULTANT Sign off status: Pending * Provider: PATO Stover Date: Generated for Halie flowers/Fiordaliza/Shaguftaitting on: 06/11/2024 06:27 PM MEDICAL RECORD CONSULTANT
--- OUTSIDE RECORDS SUMMARY | 2024-04-06 07:00 | XMS_ITS ---
Author Organization [facility] Address [address] [place] [address] Care Team Providers Care Tie Tamper Name Role Phone Sameera Patel REASON FOR VISIT 3m f/u With BMP and bone density test, for possible Prolia., Encounters Encounter Location Date Provider Diagnosis [facility] [address] [place] [address] [address] [place] [address] 04/06/2024 Sameera Patel Plan Of Treatment No Information Progress Notes * SEA HODGEDOB:1955 (69 yo M)Acc No.[id number]:04/06/2024 Progress Notes Patient: SEA BELL CYRUS Provider: PATO Stover :1955 A ge:68 Y S ex:Male Date:04/06/2024 Address: [address], [id number] Subjective: * Chief Complaints: * 3 m f/u With BMP and bone density test, for possible Prolia., * Electronic signature of PATO Saldana on 04/11/2025 at 06:28 PM CONSUMER SCIENCE TEACHER Sign off status: Pending * Provider: PATO Stover Date: 06/06/2023 Generated for Halie flowers/Fiordaliza/Shaguftaitting on: 06/11/2024 06:28 PM CONSUMER SCIENCE TEACHER
--- OUTSIDE RECORDS SUMMARY | 2024-05-20 08:10 | XMS_ITS ---
Author Organization [facility] Address [address] [address] Care Team Providers Care Shot Bagger Name Role Phone Sameera Patel [phone] REASON FOR VISIT 3m f/u With BMP and bone density test, for possible Prolia., Encounters Encounter Location Date Provider Diagnosis [facility] [address] [place] [address] [address] [place] [address] 05/20/2024 Sameera Patel Plan Of Treatment No Information Progress Notes * SEA HODGEDOB:1955 (69 yo M)Acc No.[id number]:05/20/2024 Progress Notes Patient: SEA BELL CYRUS Provider: PATO Stover :1955 A ge:68 Y S ex:Male Date:05/20/2024 Address: [address], [id number] Subjective: * Chief Complaints: * 3 m f/u With BMP and bone density test, for possible Prolia., * Electronic signature of PATO Saldana on 04/11/2025 at 06:27 PM BASKET BRAIDER Sign off status: Pending * Provider: PATO Stover Date: 07/21/2023 Generated for Halie flowers/Fiordaliza/Shaguftaitting on: 06/11/2024 06:27 PM BASKET BRAIDER
--- OUTSIDE RECORDS SUMMARY | 2024-10-05 05:10 | XMS_ITS ---
Author Organization [facility] Address [address] [place] [address] Care Team Providers Care Snapper On Name Role Phone Sameera Patel Unavailable REASON FOR VISIT 3 month f/u with psa ua pvr and bone density Encounters Encounter Location Date Provider Diagnosis [facility] [address] [place] [address] [address] [place] [address] 10/05/2024 Sameera Patel Personal history of malignant neoplasm of prostate Z85.46 ; Bladder neck obstruction N32.0 ; [facility] (current) use of other agents affecting estrogen receptors and estrogen levels Z79.818 and Urinary retention R33.9 Assessments Encounter Date Diagnosis (ICD Code) Assessment Notes Treatment Notes Treatment Clinical Notes Section Notes 10/05/2024 Personal history of malignant neoplasm of prostate (ICD-10 - Z85.46) 10/05/2024 Bladder neck obstruction (ICD-10 - N32.0) 10/05/2024 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) use of other agents affecting estrogen receptors and estrogen levels (ICD-10 - Z79.818) 10/05/2024 Urinary retention (ICD-10 - R33.9) Plan Of Treatment No Information History and Physical Notes * HPI (History of Present Illness) Category Sub-Category Detail Notes Category Not es Provider Note 68-year-old male presents to the clinic for follow-up Last seen in July 2024 prostate cancer, Treated with EBRT +5 = 10 prostate cancer ADT in [place] with oncology PSA was less than 0.014 in 2023 Tamsulosin twice daily Bone scan performed at [facility] on 03/07/2024 show no osseous lesions suspicious for metastatic disease, soft tissue contour is normal, kidneys normal, degenerative type uptake in both shoulders and AC joints, degenerative uptake in both knees and ankles No evidence of osseous metastatic disease Patient went to talk to Dr. Shepherd about a prostatectomy, he denied being on androgen ablation, we requested records from oncology in [place] to determine what his plan of care was He was having issues with urgency and frequency, we placed him on Gemtesa for 4 weeks to see if that would help his issues He was supposed to have a bone density test Progress Notes * AYESHA SEA BRIDGESDOB:1955 (69 yo M)Acc No.[id number]:10/05/2024 Progress Notes Patient: SEA BELL Provider: PATO Stover :1955 A ge:69 Y S ex:Male Date:10/05/2024 Address:[place] [address], [facility] Subjective: * Chief Complaints: * 3 month f/u with psa ua pvr and bone density * HPI: Giovanny slade Note: 68-year-old male presents to the clinic for follow-up Last seen in July 2024 prostate cancer, Treated with EBRT +5 = 10 prostate cancer ADT in [place] with oncology PSA was less than 0.014 in 2023 Tamsulosin twice daily Bone scan performed at [facility] on 03/07/2024 show no osseous lesions suspicious for metastatic disease, soft tissue contour is normal, kidneys normal, degenerative type uptake in both shoulders and AC joints, degenerative uptake in both knees and ankles No evidence of osseous metastatic disease Patient went to talk to Dr. Shepherd about a prostatectomy, he denied being on androgen ablation, we requested records from oncology in [place] to determine what his plan of care was He was having issues with urgency and frequency, we placed him on Gemtesa for 4 weeks to see if that would help his issues He was supposed to have a bone density test. Assessment: * Assessment: 1. P ersonal history of malignant neoplasm of prostate - Z85.46 (Primary) 2 .?Bladder neck obstruction - N32.0 3 . L bhavik term (current) use of other agents affecting estrogen receptors and estrogen levels - Z79.818 4 . 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
[2025-04-11] VITALS (9 sets, daily range): BP systolic 101–160; BP diastolic 64–108; PULSE 64–99; RESP 18; TEMP 36.8; O2SAT 94–100; BMI 26.6
--- OUTSIDE RECORDS SUMMARY | 2025-04-11 18:28 | XMS_ITS | Data Portability ---
Author Organization [place] [facility] [place], ADMIN Address [address] [place] [id number] Assessment Encounter Date Assessment Date Assessment LastModified [...] Foregut and General Surgeon Department of Surgery, [facility] Not available 10/27/2024 13:41:59 10/28/2024 10/28/2024 69-year-old male patient. estonecipher Not available 10/28/2024 15:30:29 11/24/2024 11/24/2024 69-year-old male presents to clinic for colonoscopy consult. Patient previously underwent colonoscopy 03/24/2024 at [facility] in [place]. Colonoscopy revealed a large ascending colon polyp. [...] 1. History of incomplete colonoscopy 03/24/2024 at [facility] in [place], large ascending polyp identified without removal due [...] GI clinic 2 weeks post endoscopic procedure [email or web address] Not available 11/24/2024 11:56:04 12/15/2024 12/15/2024 69-year-old [...] in 1 year 2. Follow-up as needed [email or web address] Not available 12/15/2024 10:58:05 Plan of Treatment [...] my, possible dilation of stricture . CPT: 53845, 19785, 41554,453 82 2024 025 [facility], [address], [place], [address], 12/01/2024 12:00:14 Surgeries None recorded. Imaging None recorded. Medication Orders MoviPrep 100 gram-7.5 gram-2.69 1 gram oral powder packet 2024 025 [facility], [address], [place], [address], 11/24/2024 10:49:24 Patient TargetsNo targets recorded. Patient Instructions Encounter Date Encounter Id Patient Instructions Last Modified By Organization Details Last Modified Time 05/05/2024 [id number] chronic obstructive pulmonary disease (COPD): [facility] Not available 05/30/2024 13:29:12 learning about copd and how to prevent lung infections health system Not available 05/30/2024 13:29:12 10/28/2024 [id number] chronic obstructive pulmonary disease ([facility]D): [facility] Not available 10/28/2024 15:45:57 learning about copd and how to prevent lung infections health system Not available 10/28/2024 15:45:57 Reason for Referral None Reported. Results Created Date Observation Date Name Description Value Unit Range Abnormal Flag Note LastModifiedBy Organization Detail LastModifiedTime 12/02/1912/01/2024 GLUCO SE LEVEL POC BEDSI DE glu POC bdside 122 mg/dL 65-90 [place] ID: [id number] Not Available [facility] (Lab)_do Not Use [address], [place], [address], 12/01/2024 08:53:13 04/08/20 24 03/26/2024 LDCT, chest , for lung cance r scree love No observ ation record ed. BARCODE Not Available 2023 15:46:30 11/17/19 25 10/28/2024 CT, chest , w/o contr ast [facility] [facility] [address] [place] [address]- Patien t: GABINO HODGE Sr [id number] : 955 Sex:Ma le Locati on: MOBI CT Orderi ng Physic hilda: DENAE MOURA MD Comput ed Tomogr aphy Access ion Exam Date/T karina [id number] -[id number] 0038 025 13:33 CDT Reason for Exam R91.8 Other nonspe cific abnorm al findin g of lung field 39399 Report EXAM: CT CHEST WITHOU T CONTRA [...] Signludy ure): 2024 11:16 am CDT estonecipher [facility] (Radiology) [address], [place], [address], 11/16/2024 12:18:00 01/16/2011/04/2024 US, duple x, arter ial, lower extre mity, compl ete No observ ation record ed. BARCODE Not Available 2024 16:47:55 Result Notes Documentation Provider Name and Address Organization Details Recorded Time Ct, Chest, W/o Contrast : [facility] [address] [place] [address]- Patient: GABINO HODGE Sr : 1955 Sex:Male Location: [facility] CT Ordering Physician: ALISON SOLANO MD Computed Tomography Accession Exam Date/Time [id number] 10/28/2024 13:33 CDT Reason for Exam R91.8 Other nonspecific abnormal finding of lung field 77045 Report EXAM: CT CHEST WITHOUT CONTRAST HISTORY: [...] Signature): 11/16/2024 11:16 am RUTHY Bains LPN [facility] [place] 11/16/2024 12:18:00 Problems Name Problem SNOMED Code Status Onset Date Resolution Date Notes Provider Name and Address Organization Details Recorded Time Polyp of colon 74048380 Active 20[address]ANI [address] [place] [address], [phone], [facility] [place] 5 09:52:53 Tubular adenomatous polyp of colon 145538382 Active 2024 SHARON LAKHANI [address] [place] [address], [phone], [facility] [place] 5 10:58:22 Problem Notes None recorded. Procedures Surgical History Date Name Laterality Status Provider Name and Address Organization Details Recorded Time cholecystectomy completed Gardenia Gonzalez LPN [address] 12/19/2023 15:34:57 Appendectomy completed Gardenia Gonzalez LPN [address] 12/19/2023 15:35:10 open heart surgery completed Tiesha gerard TrentonDELVIN nolan [address] 12/19/2023 15:35:26 arthroplasty of knee completed Evelyn Huddleston [address] 11/24/2024 09:33:01 Imaging Results None recorded. Procedure Notes None recorded. Medical Equipment None Reported. Allergies Allergen ID Allergen Name Allergen Category Reaction Reaction Severity Criticality Documentation Date Start Date Code Code System Note Provider Name and Address Organization Details Recorded Time [id number] bupropion Not available Not available Not available Not available 12/19/2023 62457 RxNorm DELVIN Cespedes [address] 4 15:15:22 542093 Wellbutri n medicatio n Not available Not available Not available 12/19/2023 69147 RxNorm DELVIN Cespedes [address] 4 15:15:51 Medications Name Sig Start [...] % 90 % 69 /min 27.1 kg/m2 93788.2 4 g 106/53 mm[Hg] Colby Sharma LPN [place] [facility] [place] 5 12:08:29 Date Recorded Body height Body mass index (BMI) Body weight Body temperature Heart rate Oxygen saturation Oxygen saturation in Arterial blood by Pulse oximetry Systolic And Diastolic Provider Name and Address Organization Details Last Updated DateTime 5 177.8 cm 26.8 kg/m2 05519.1 3 g 97.3 [degF] 68 /min 92 % 92 % 102/50 mm[Hg] Airam Marsh LPN [address] 5 15:11:41 Date Recorded Body height Body mass index (BMI) Body weight Oxygen saturation Oxygen saturation in Arterial blood by Pulse oximetry Heart rate Systolic And Diastolic Provider Name and Address Organization Details Last Updated DateTime 5 177.8 cm 26.5 kg/m2 89101.1 5 g 93 % 93 % 80 /min 96/53 mm[Hg] Evelyn Huddleston [address] 5 09:44:18 Date Recorded Body height Body mass index (BMI) Body weight Oxygen saturation Oxygen saturation in Arterial blood by Pulse oximetry Heart rate Systolic And Diastolic Provider Name and Address Organization Details Last Updated DateTime 5 177.8 cm 27 kg/m2 61577.3 7 g 96 % 96 % 80 /min 125/60 mm[Hg] Evelyn Huddleston [address] 5 10:30:29 Date Recorded Body height Body mass index (BMI) Body weight Heart rate Oxygen saturation Oxygen saturation in Arterial blood by Pulse oximetry Systolic And Diastolic Provider Name and Address Organization Details Last Updated DateTime 4 177.8 cm 31.3 kg/m2 14320.8 6 g 100 /min 93 % 93 % 151/66 mm[Hg] Airam Marsh LPN [address] 4 15:45:07 Social History Question Answer Notes LastModified by Organizat ion Details LastModified Time Tobacco Smoking Status Former Smoker quit 2016 Aryan Meza LPN [address] 03/26/2024 13:29:02 Are You Blind Or Do You Have Difficulty Seeing? No [email or web address] Information not available 10/28/2024 What Is Your Level Of Caffeine Consumption? Occasional [email or web address] Information not available 12/19/2023 Are You Deaf Or Do You Have Serious Difficulty Hearing? No [email or web address] Information not available 10/28/2024 What Type Of Diet Are You Following? REGULAR [email or web address] Information not available 12/19/2023 When Did You Quit Smoking? 6-10yearssince lastcigarette [email or web address] Information not available 12/19/2023 What Was The Date Of Your Most Recent Tobacco Screening? 12/15/2024 [email or web address] Information not available 12/15/2024 What Is Your Current Pack Years? 20-29packyears [email or web address] Information not available 10/28/2024 What Is Your Relationship Status? [email or web address] Information not available 12/19/2023 At What Age Did You Start Smoking Tobacco? 9 [email or web address] Information not available 05/05/2024 How Much Tobacco Do You Smoke? 2 PPW [email or web address] Information not available 05/05/2024 How Many Years Have You Smoked Tobacco? 42 [email or web address] Information not available 05/05/2024 Do You Have Difficulty Walking Or Climbing Stairs? Yes [email or web address] Information not available 10/28/2024 Sex: Unknown Functional Status Question Answer Note LastModified by Organizat ion Details LastModified Time Do you use any illicit or recreational drugs? No [email or web address] Information not available 05/05/2024 Do you or have you ever used any other forms of tobacco or nicotine? No [email or web address] Information not available 05/05/2024 What is your level of alcohol consumption? None [email or web address] Information not available 12/19/2023 Are you able to care for yourself independently? No [email or web address] Information not available 10/28/2024 Do you have difficulty dressing, bathing, grooming, or toileting? Yes [email or web address] Information not available 10/28/2024 Mental Status Question Answer Note LastModified by Organization D etails LastModified Time Do you have difficulty concentrating, remembering or making decisions? Yes [email or web address] Information no t available 10/28/2024 Family History Relationship Description Onset Age of this Age Resolved Age Notes LastModified by Organization Details LastModified Time Father No current problems or disability [email or web address] Not available 15:45:38 Mother No current problems or disability [email or web address] Not available 15:45:38 Medical History Condition Response HEART DISEASE Y HYPERTENSION Y Past Encounters Encounter ID Performer Location Encounter Start Date Encounter Closed Date Diagnosis/Indication Diagnosis SNOMED-CT Code Diagnosis ICD10 Code Diagnosis IMO Codes Diagnosis Note [id number] Alison Solano MD [facility] [address] [place] [address] 12/19/2023 14:56:29 12/19/2023 16:00:36 Chronic obstructive pulmonary disease 53500724 J44.9 Patient has shortness of breath on [...] March 2024. Multiple n odules of lung 839051693 R91.[address] chest done [...] chest March 2024. 2. Follow-up March 2024. [id number] Alison Solano MD [facility] [address] [place] [address] 03/26/2024 12:27:18 03/26/2024 13:51:45 Patient walked out [id number] Z53.21 Appointmen t reschedule d because patient did not have the CT chest done. [id number] Alison Solano MD [facility] [address] [place] [address] 05/05/2024 15:08:03 05/05/2024 16:14:20 Chronic obstructive pulmonary disease 64885015 J44.9 PFT showed evidence of severe obstructio [...] 125%.DLCO 39%. Multiple n odules of lung 813860156 R91.[address] chest done [...] CT chest June 2024.2. Follow-up June 2024. [id number] NORM SHEETS MD [facility] [address] [facility] [place] [address] 10/27/2024 11:51:03 10/27/2024 18:03:27 Paraesophageal hernia 4796842 K44.9 9220 Gastric hemorrhage 62838 005 K25.4 [id number] Essential hypertension 62806525 I10 88671 Mixed hyperlipidemia 267 705114 E78.2 16257 Paroxysmal atrial fibrillation 149404579 I48.0 7914796 Chronic ob structive pulmonary disease 05547366 J44.9 [id number] Alison Solano MD [facility] [address] [place] [address] 10/28/2024 14:50:04 10/28/2024 15:47:32 Chronic obstructive pulmonary disease 94088742 J44.9 PFT showed evidence of severe obstructio [...] 125%.DLCO 39%. Multiple n odules of lung 751732728 R91.[address] chest done [...] CT chest February 2025.2. Follow-up February 2025. [id number] SHARON LAKHANI [facility] [address] [facility] [place] [address] 11/24/2024 09:23:08 11/26/2024 11:54:34 Polyp of colon 85230667 K63.5 18080481 Family his tory of cancer of colon 285741711 Z80.0 266196 [id number] SHARON LAKHANI [facility] [address] [place] [address] 12/15/2024 10:17:22 12/15/2024 14:35:47 Tubular adenomatous polyp of colon 263256395 D12.6 460889 Health Concerns Section Related Observation LastModified by Organization Detai ls LastModified Time None Recorded Concern Status LastModified by Organization Details LastModified Time None Recorded Advance Directives Directive None Recorded Payers Insurance Date Sequence Insurance Name Policy Number Policy Salgado Covered Member ID Salgado Member ID Guarantor Name 03/03/2025 OPT - [facility] Gabino Hodge [id number] Gabino Hodge Notes Date Note Type Note [...] 5 packs/day. 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 Imaging: ---> LDCT chest ([facility]) on 11/18/2023:1. Chronic findings as notes 2. Pulmonary nodules as annotated 3. LUNGS-RADS 4ALUNG-RADS: 4A: Suspicious.3 months follow-up low-dose CTAddendum: Noted at the time of the reading, but not mentioned in the initial report is near total resolution of previously noted LLL infiltrate with some residual scarring Alison Solano MD [address] [facility], [place], [address], [place] [facility] [place] 05/30/2024 13:29:15 10/27/2024 text/html CC: Patient comes to see me in [facility] complaining of large hiatal hernia, Kenton's ulcers HPI 10/27/2024:69 y.o. male with a past medical history of hypertension, hyperlipidemia, coronary artery disease s/p CABG, atrial fibrillation on Eliquis, congestive heart failure, COPD, GERD, and prostate cancer who presented [place] after he had two episodes of dark [...] notable for hemoglobin of 9.3. At the [place], patient's hemoglobin was 9.6. FOBT was negative. [...] Jamison salvage.Fluoro time: 1minutes 28secAir Kerma: 71.8mGyDAP: 1005.3vByi0DOLZPLPNUQ: Moderate to large sliding type hiatal hernia.Limited [...] H. pylori organisms. NORM SHEETS MD [address] [place], [address], [facility] [place] [facility] [place] 10/27/2024 13:43:36 10/28/2024 text/html 69-year-old male patient with a past medical history significant for hypertension, heart disease status post CABG, COPD who presents for follow up. Patient is accompanied by his global recruiter. He was last seen in office on [...] 5 packs/day. 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 Imaging: ---> LDCT chest ([facility]) on 11/18/2023:1. Chronic findings as notes 2. Pulmonary nodules as annotated 3. LUNGS-RADS 4ALUNG-RADS: 4A: Suspicious.3 months follow-up low-dose CTAddendum: Noted at the time of the reading, but not mentioned in the initial report is near total resolution of previously noted LLL infiltrate with some residual scarring Alison Solano MD [address] [facility], [place], [address], [facility] [place] 10/28/2024 15:46:01 11/24/2024 text/html 69-year-old male presents to clinic for colonoscopy consult. Patient previously underwent colonoscopy 03/24/2024 at [facility] in [place]. Colonoscopy revealed a large ascending colon polyp. [...] 1. History of incomplete colonoscopy 03/24/2024 at [facility] in [place], large ascending polyp identified without removal due [...] clinic 2 weeks post endoscopic procedure SHARON LAKHANI [address] [facility], [place], [address], [facility] [place] 11/24/2024 11:56:48 12/15/2024 text/html 69-year-old male presents [...] year2. Follow-up as needed SHARON LAKHANI [address] [facility], [place], [address], [facility] [place] 12/15/2024 10:58:40
--- OUTSIDE RECORDS SUMMARY | 2025-04-11 18:28 | XMS_ITS | Patient Health Record ---
Author Organization [facility] Address [address] [place] [address] Care Team Providers Care Job Checker Name Role Phone Aryan Taylor Unavailable [phone] Sameera Patel Unavailable [phone] Allergies No Known Allergies Results Component Value Reference Range Notes [facility] Without [place], [place] - [address] Reviewed date:07/07/2024 02:24:04 PM Interpretation: Performing Lab: Notes/Report: Glucose 2+ Bili 1+ Ketones 0 Sp Bois D Arc 1.020 Blood 0 pH 6.0 Protein +- Urobili +- Nitrites 0 Leukocytes 0 Reason For Referral No Information Medications Medication SIG (Take, Route, Frequency, Duration) Notes Start Date End Date Status 2 ML digoxin 0.25 MG/ML Injection *Reorder from [facility] for eRx and Interaction Alerts* 01/30/2023 Active albuterol 0.417 MG/ML Inhalation Solution INTRAPULMONARY *Reorder from [facility] for eRx and Interaction Alerts* 01/30/2023 Active Loratadine 10 MG Oral Tablet ORAL *Reorder from [facility] for eRx and Interaction Alerts* 01/30/2023 Active Atorvastatin Calcium 10 MG Tablet Oral 01/30/2023 Active predniSONE 5 MG Oral Tablet ORAL *Reorder from [facility] for eRx and Interaction Alerts* 01/30/2023 Active 60 ACTUAT olodaterol 0.0025 MG/ACTUAT Inhalation Montverde [Striverdi] INTRAPULMONARY *Reorder from [facility] for eRx and Interaction Alerts* 01/30/2023 Active aspirin 325 MG Delayed Release Oral Tablet ORAL *Reorder from [facility] for eRx and Interaction Alerts* 01/30/2023 Active Potassium Chloride 20 MEQ Powder for Oral Solution ORAL *Reorder from [facility] for eRx and Interaction Alerts* 01/30/2023 Active apixaban 5 MG Oral Tablet [Eliquis] ORAL *Reorder from [facility] for eRx and Interaction Alerts* 01/30/2023 Active Omeprazole Magnesium 20 MG Tablet Delayed Release Oral 01/30/2023 Active Nitroglycerin 0.4 MG Tablet Sublingual Sublingual 01/30/2023 Active Furosemide 40 MG Oral Tablet ORAL *Reorder from [facility] for eRx and Interaction Alerts* 01/30/2023 Active Abiraterone Acetate 250 MG Oral Tablet ORAL *Reorder from [facility] for eRx and Interaction Alerts* 01/30/2023 Active Docusate Sodium 100 MG Oral Tablet ORAL *Reorder from [facility] for eRx and Interaction Alerts* 01/30/2023 Active Calcium Citrate 1500 MG / Cholecalciferol 200 UNT Oral Tablet ORAL *Reorder from [facility] for eRx and Interaction Alerts* 09/24/2023 Active 60 ACTUAT tiotropium 0.0025 MG/ACTUAT Inhalation Montverde [Spiriva] INTRAPULMONARY *Reorder from [facility] for eRx and Interaction Alerts* 01/30/2023 Active albuterol 0.833 MG/ML / ipratropium bromide 0.167 MG/ML Inhalation Solution INTRAPULMONARY *Reorder from [facility] for eRx and Interaction Alerts* 01/30/2023 Active Metoprolol Tartrate 75 MG Oral Tablet ORAL *Reorder from [facility] for eRx and Interaction Alerts* 01/30/2023 Active LORazepam 1 MG Oral Tablet ORAL *Reorder from [facility] for eRx and Interaction Alerts* [...] Problem Status W/U Status Risk Notes Problem shelter (current) use of other agents affecting estrogen receptors and estrogen levels (Z79.818) Active confirmed Problem History of malignant neoplasm of prostate (450680158) Personal history of malignant neoplasm of prostate (Z85.46) Active confirmed Problem Urinary retention (559646759) Urinary retention (R33.9) Active confirmed Problem Bladder neck obstruction (535226984) Bladder neck obstruction (N32.0) Active confirmed Vital Signs Heart Rate 78 /min 07/07/2024 Temperature 98.68 degrees Fahrenheit 07/07/2024 Height-cm 177.80 cm 07/07/2024 Blood pressure diastolic 64 mm Hg 07/07/2024 Weight-kg 99.79 kg 07/07/2024 Height 70.00 in 07/07/2024 Blood pressure systolic 110 mm Hg 07/07/2024 Weight 220.0 lbs 07/07/2024 BMI 31.56 kg/m2 07/07/2024 Encounters Encounter Location Date Provider Diagnosis [facility] [address] [place] [address] 07/07/2024 Sameera Patel Personal history of malignant neoplasm of prostate Z85.46 ; shelter (current) use of other agents affecting estrogen receptors and estrogen levels Z79.818 ; Urinary retention R33.9 ; Urinary urgency R39.15 and Frequency of micturition R35.0 [facility] [address] [place] [address] [place] [address] 06/16/2024 Aryan Taylor shelter (current) use of other agents affecting estrogen receptors and estrogen levels Z79.818 and Personal history of malignant neoplasm of prostate Z85.46 [facility] [address] [place] [address] [place] [address] 05/19/2024 Aryan Taylor [facility] [address] [place] [address] [place] [address] 10/02/2024 Aryan Taylor [facility] [address] [place] [address] [place] [address] 07/07/2024 Aryan Taylor shelter (current) use of other agents affecting estrogen receptors and estrogen levels Z79.818 and Personal history of malignant neoplasm of prostate Z85.46 [facility] [place] [address] 07/06/2024 Aryan Taylor Assessments Encounter Date Diagnosis (ICD Code) Assessment Notes Treatment Notes Treatment Clinical Notes Section Notes 06/16/2024 shelter (current) use of other agents affecting estrogen receptors and estrogen levels (ICD-10 - Z79.818) 07/07/2024 salvage determiner (current) use of other agents affecting estrogen [...] checked when advised to do so 07/07/2024 shelter (current) use of other agents affecting estrogen [...] Name Order Date Basic Metabolic Panel (BMP) 54861 2023 Basic Metabolic Panel (BMP) 34870 2024 PSA Diagnostic--23673 07/07/2024 Bone Densitometry-41877 07/07/2024 Bone Densitometry-53145 06/16/2024 Bone Densitometry-19357 03/16/2024 Insurance Providers Payer Name Payer Address Payer Phone Subscriber Number Group Number Insured Name Patient Relationship to Insured Coverage Start Date Coverage End Date [employer] [address] [place] [phone] [id number] SEA HODGE Self - patient is the insured Medical (General) History Hospitalization History Reason Date(Month/Year) sars/rsv/pneumonia
--- OUTSIDE RECORDS SUMMARY | 2025-04-11 18:28 | XMS_ITS | Clinical Summary ---
Author Organization Madeleine Jarrett Address [address] include 234 beds at the [facility] [address] [place] [address] Phone Care Team Providers Care Hospital Director Name Role Phone Unavailable Primary Care Provider [...] Type Department Care Team Description 03/04/2025 Telephone [facility] [address] [phone] Kaden Mayer MD Appointment Notification 03/04/2025 Telephone [facility] [address] [phone] Kaden Mayer MD Follow Up 03/03/2025 3:45 PM CDT Office Visit [facility] [address] [phone] Kaden Mayer MD Encounter for pre-operative examination (Primary Dx) 03/03/2025 2:30 PM CDT Ancillary Procedure [facility]- [address] [phone] Kaden Mayer MD PAD (peripheral artery disease) 03/03/2025 Orders Only [facility] [address] [phone] Tiara Sutton RN 03/02/2025 11:10 AM CDT Office Visit [facility] [place] [address] [phone] Hannah Powell MD 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); Fuchs' corneal dystrophy of right eye; Pseudophakia of both eyes 01/21/2025 Telephone [facility] [place] [address] [phone] Hannah Powell MD Information 01/18/2025 2:57 PM CDT Anesthesia Event [facility] Operating Room [address] [place] [phone] Ronnie Camejo DO 01/18/2025 1:12 PM CDT - 01/18/2025 2:33 PM CDT Surgery [facility] Operating Room [address] [place] [phone] Kaden Mayer MD FEMORAL ANGIOGRAPHY WITH INTERVENTION 01/18/2025 10:50 AM CDT - 01/19/2025 12:40 PM CDT Hospital Encounter [facility] [address] [address] [place] [phone] Kaden Mayer MD Peripheral vascular disease, unspecified Discharge Disposition: Home or Self Care 01/18/2025 6:52 AM CDT - 01/18/2025 11:59 PM CDT Hospital Encounter [facility] Interventional Radiology OR [address] [phone] Kaden Mayer MD Discharge Disposition: Home or Self Care 01/12/2025 External Device Data STL ABSTRACTION Provider, Abstract 01/12/2025 External Device Data STL ABSTRACTION Provider, Abstract 01/11/2025 Telephone [facility] [place] [address] [phone] Kaden Mayer MD Follow Up from Last 3 Months Immunizations Immunization Administration Dates Next Due (ADACEL/BOOSTRIX)(10 YR UP) TDAP VACCINE, 0.5ML, IM 11/07/2010 (JOSÉ MIGUEL) COVID-19 VACCINE - EMERGENCY USE AUTHORIZATION, AD26,COV2S(PF) 0.5 ML IM SUSP 04/07/2021 (PNEUMOVAX 23)(50 YRS UP) PN EUMOCOCCAL POLYSACCHARIDE (PPV23) 0.5 ML, IM 03/17/2019,03/22/2018,01/20/2018 (PREVNAR 20)(6 WKS UP) PNEUM OCOCCAL CONJUGATE VACCINE 20-VALENT (PCV20), POLYSACCHARIDE [id number] CONJUGATE, ADJUVANT 0.5 ML (PF) IM 02/06/2022 [...] history exists Medical Devices Implanted Type 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 Establishment 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 Device Identifier Shelf Expiration Date Model / Serial / Lot Dev Closure Angioseal 6fr Vip [id number] - [id number] Implanted:Qty : 1 on 01/18/2025 by Kaden Mayer MD at [facility] Closure Device Right: Groin TERUMO- CARDIOVASC SYS [id number] 09/21/2025 [id number] / / [id number] Stent Vasc Innova [id number] Implanted:Qty : 1 on 01/18/2025 by Kaden Mayer MD at [facility] Stent Left: Superficial Femoral Artery [employer] [id number] 08/05/2029 [id number] / / [id number] Procedures Procedure Name Priority Date/Time Associated [...] POC GLUCOSE Routine 01/18/2025 12:09 PM CDT from Last 3 Months Results * US DUPLEX ARTERIAL LEG LEFT (03/03/2025 3:51 PM CDT) Anatomical Region Laterality Modality Lower Extremity Ultrasound 03/03/2025 3:05 PM CDT Narrative 03/04/2025 2:48 PM CDT [facility] [address] [place] [address] [place] [address] Noninvasive Vascular Lab Limited Lower Extremity Arterial Duplex Study Patient: Gabino Jones Study ID: US DUPLEX ARTERI Gender: M : 1955 Age: 69 Room: Height: 162.6cm Weight: 92kg BSA: 2.08m^2 Pt status: Outpatient Study Date: 03/03/2025 Study Time: 03:05:58 PM BSA: 2.08m^2 Ordering: Kaden Mayer Interpreting:Kaden Mayer 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 History: Risk factors: Prior [...] - Max brachial pressure (sys): 164mm Hg [facility] is accredited with the Intersocietal Commission for the Accreditation of Vascular Laboratories (ICAVL) Prepared and Electronically Authenticated Kaden Mayer Confirmed 03/04/2025 14:48 Procedure Note Kaden Mayer MD - 03/04/2025 [facility] [address] [place] [address] Noninvasive Vascular Lab Limited Lower Extremity Arterial Duplex Study Patient: Gabino Jones Study ID: US DUPLEX ARTERI Gender: M : 1955 Age: 69 Room: Height: 162.6cm Weight: 92kg BSA: 2.08m^2 Pt status: Outpatient Study Date: 03/03/2025 Study Time: 03:05:58 PM BSA: 2.08m^2 Ordering: Kaden Mayer Interpreting:Kaden Mayer 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 History: Risk factors: Prior [...] - Max brachial pressure (sys): 164mm Hg [facility] is accredited withthe Intersocietal Commission for the Accreditation of Vascular Laboratories (ICAVL) Prepared and Electronically Authenticated Kaden Mayer Confirmed 03/04/2025 14:48 Kaden Mayer MD US ORDERABLES Final Result * OCT, RETINA - OU - BOTH EYES (03/02/2025 12:39 PM CDT) Narrative [facility] OPHTHALMOLOGY ORDERS - 03/02/2025 1:14 PM CDT Optical Coherence Tomography ordered to evaluate the status of the macula: RIGHT EYE: Focal outer retinal loss. EZ/IZ disruption. Retinal thinning. Focal RPE irregularity. LEFT EYE: There is no intraretinal fluid or Subretinal fluid. A trace Epiretinal membrane is present Hannah Powell MD OPHTH TOMOGRAPHY Final Result [facility] OPHTHALMOLOGY ORDERS * TELEMETRY REPORT (01/20/2025 2:08 AM CDT) Provider Scanning ECG ORDERABLES Final Result * (ABNORMAL) CBC WITH DIFFERENTIAL (01/19/2025 5:46 AM CDT) WBC 3.7(L) 4.8 - 10.8 K/uL 01/19/2025 6:14 AM CDT [facility] RBC 4.58(L) 4.60 - 6.20 M/uL 01/19/2025 6:14 AM CDT [facility] HEMOGLOBIN 12.5(L) 14.0 - 18.0 g/dL 01/19/2025 6:14 AM CDT [facility] HEMATOCRIT 39.0(L) 41.0 - 53.0 % 01/19/2025 6:14 AM [facility] MCV 85.2 84.0 - 103.0 fL 01/19/2025 6:14 AM [facility] MCH 27.3 27.0 - 34.0 pg 01/19/2025 6:14 AM [facility] MCHC 32.1 30.0 - 35.0 g/dL 01/19/2025 6:14 AM [facility] PLATELETS 133(L) 140 - 440 K/uL 01/19/2025 6:14 AM [facility] MPV 9.7 8.9 - 12.8 fL 01/19/2025 6:14 AM [facility] RDW 17.5(H) 11.0 - 14.5 % 01/19/2025 6:14 AM [facility] RDW-STDEV 54.1(H) 37.0 - 54.0 fL 01/19/2025 6:14 AM [facility] NEUTROPHILS 69 42 - 75 % 01/19/2025 6:14 AM [facility] LYMPHOCYTES 17(L) 24 - 44 % 01/19/2025 6:14 AM [facility] MONOCYTES 12(H) 2 - 10 % 01/19/2025 6:14 AM [facility] EOSINOPHILS 2 0 - 7 % 01/19/2025 6:14 AM [facility] BASOPHILS 1 0 - 1 % 01/19/2025 6:14 AM [facility] IMMATURE GRANULOCYTES 0 0 - 2 % 01/19/2025 6:14 AM [facility] NEUTROPHIL ABSOLUTE 2.58 2.00 - 8.00 K/uL 01/19/2025 6:14 AM [facility] LYMPHOCYTE ABSOLUTE 0.63(L) 1.20 - 4.00 K/uL 01/19/2025 6:14 AM [facility] MONOCYTE ABSOLUTE 0.43 0.10 - 0.60 K/uL 01/19/2025 6:14 AM [facility] EOSINOPHIL ABSOLUTE 0.06 0.00 - 0.70 K/uL 01/19/2025 6:14 AM CDT [facility] BASOPHILS ABSOLUTE 0.03 0.00 - 0.20 K/uL 01/19/2025 6:14 AM CDT [facility] IMMATURE GRANULOCYTES ABSOLUTE 0.01 0.00 - 0.10 K/uL 01/19/2025 6:14 AM CDT [facility] SMEAR REVIEWED: NA - Not Applicable 01/19/2025 6:14 AM CDT [facility] Blood Venipuncture / Unknown 01/19/2025 5:46 AM CDT 01/19/2025 6:08 AM CDT us Kaden Mayer MD HEMATOLOGY ORDERABLES Final Re sult Performing Organization Address [facility]/ZIP Co de Phone Number [facility] CLIA # [id number] [address] [address] * (ABNORMAL) POC GLUCOSE (01/18/2025 3:58 PM CDT) Only the most recent of2 resultswithin the time period is included. GLUCOSE POC 108(H) 74 - 99 mg/dL 01/18/2025 3:58 PM CDT [facility] SPECIMEN SOURCE, GLUCOSE POC Capillary 01/18/2025 3:58 PM CDT [facility] Blood, whole 01/18/2025 3:58 PM CDT 01/18/2025 4:05 PM CDT us Kaden Mayer MD POINT OF CARE TESTING Final Re sult Performing Organization Address [facility]/ZIP Co de Phone Number [facility] CLIA # [id number] [id number] [place], [place] [address] * IR FLUORO OR OTHER (01/18/2025 3:52 PM CDT) Narrative 01/18/2025 3:52 PM CDT Order Auto Finalized. Please see associated Operative Report/Progress Note/Procedure Note from the same date. Kaden Mayer MD IR ORDERABLES Final Result * (ABNORMAL) POC ACTIVATED CLOTTING TIME (01/18/2025 3:30 PM CDT) ACTIVATED CLOTTING TIME POC 285(H) 116 - 140 sec 01/18/2025 3:30 PM CDT [facility] Blood 01/18/2025 3:30 PM CDT 01/19/2025 6:51 PM CDT Kaden Mayer MD POINT OF CARE TESTING Final Re sult [facility] CLIA # [id number] [facility] [address] from Last 3 Months Insurance MEDICARE PART A HOSPITAL ONLY ANTH DUAL ADVANTAGE [place]MO [place] [address] [employer] * Guarantor: [employer] Account Type Relation to Patient Date of Phone B[facility] Address [facility] Other DEFAULT ADDRESS [address] [employer] * Guarantor: [facility] Account Type Relation to Patient Date of Phone Billing Address Corporate Other DEFAULT ADDRESS [place] [address] [place] [employer] Advance Directives For more information, please contact: [phone] * Full Code (Latest Code Status on File) Date Activated Date Inactivated Comments 09/05/2022 11:49 PM 09/07/2022 1:06 PM
--- NOTE | 2025-04-11 18:39 | XRR_ITS ---
PROCEDURE INFORMATION: Exam: XR Chest Exam date and time: 04/11/2025 6:57 PM Age: 69 years old Clinical indication: Shortness of breath; Prior surgery; Surgery date: 6+ months; Surgery type: Cabg; Additional info: SOB; Weakness TECHNIQUE: Imaging protocol: Radiologic exam of the chest. Views: 1 view. COMPARISON: CT chest con [id number] 04/02/2025 11:14 PM FINDINGS: Lungs: Lungs are hyperinflated compatible with COPD emphysema there is a hyperlucent appearance to the upper lung zones. There is nonspecific airspace consolidative appearance to a left upper lobe extending to the lingular segment. There are findings of coarse reticulation involving the left upper and both lower lobes the superimposed changes of UIP type interstitial lung disease or pneumonia can not be excluded. Pleural spaces: Unremarkable. No pleural effusion. No pneumothorax. Heart/Mediastinum: Heart is enlarged. Patient is status post open heart sternotomy wires present. Bones/joints: Sternotomy wires present from open heart. XR/XR chest 1V portable [id number] IMPRESSION: Findings persistent dense consolidated appearance left upper lobe infectious pneumonia could be consideration follow-up to full resolution recommended Findings of severe emphysema with suspicion of superimposed lower lobe predominant changes of UIP type interstitial lung disease and fibrosis Cardiomegaly
--- NOTE | 2025-04-11 18:40 | W.ED.WEAKNES ---
HPI - Weakness General: Chief complaint: Weakness Stated complaint: weakness Time Seen by Provider: 04/11/25 18:19 History of Present Illness: Patient is a 69-year-old male who presents to the emergency department with complaints of confusion and respiratory distress. He was recently discharged from the hospital yesterday (04/10/2025) and reports that since returning home, he has been experiencing episodes of confusion, described by the patient as droning out and not knowing what he was doing. He endorses increased difficulty breathing today compared to his baseline. Patient uses home oxygen at 3L. He reports some difficulty with mobility today compared to his baseline, where he sometimes uses assistive devices. Patient lives alone and reports that he was prescribed medications upon discharge but has not been able to pick them up due to the weekend. He denies increased lower extremity swelling. Patient reports occasional cough with intermittent productive sputum. He is unsure if he has had fever. Patient also complains of abdominal discomfort which he attributes to a hernia, as well as rib sensitivity. Related Data Home Medications ?Medication ?Instructions ?Recorded ?Confirmed furosemide 40 mg tablet (Lasix) 40 mg PO QAM 03/28/21 04/01/25 potassium chloride 20 mEq 20 meq PO QAM 03/28/21 04/01/25 tablet,extended release tamsulosin 0.4 mg capsule (Flomax) 0.4 mg PO BID 02/25/23 04/01/25 loratadine 10 mg tablet 10 mg PO QAM 05/15/23 04/01/25 digoxin 250 mcg (0.25 mg) tablet 250 mcg PO QAM 08/04/23 04/01/25 nitroglycerin 0.4 mg sublingual 0.4 mg sublingual Q5M PRN Chest 08/04/23 04/01/25 tablet (Nitrostat) Pain levothyroxine 125 mcg tablet 125 mcg PO QAM 07/09/24 04/01/25 albuterol sulfate 2.5 mg/3 mL 2.5 mg inhalation Q6H PRN 01/28/25 04/01/25 (0.083 %) solution for nebulization Shortness Of Breath aspirin 81 mg tablet,delayed 81 mg PO DAILY 01/28/25 04/01/25 release atorvastatin 20 mg tablet 10 mg PO BEDTIME 01/28/25 04/01/25 cholecalciferol (vitamin D3) 50 50 mcg PO DAILY 01/28/25 04/01/25 mcg (2,000 unit) tablet (Vitamin D3) clopidogrel 75 mg tablet 75 mg PO DAILY 01/28/25 04/01/25 gabapentin 100 mg capsule 200 mg PO TID 01/28/25 04/01/25 sennosides 8.6 mg-docusate sodium 1 tab PO DAILY 01/28/25 04/01/25 50 mg tablet sertraline 100 mg tablet 100 mg PO QPM 01/28/25 04/01/25 calcium carbonate 500 mg PO BID 03/09/25 04/01/25 cyanocobalamin (vitamin B-12) 100 100 mcg PO DAILY 03/09/25 04/01/25 mcg tablet (Vitamin B-12) empagliflozin 25 mg tablet 12.5 mg PO DAILY 03/09/25 04/01/25 (Jardiance) pantoprazole 40 mg tablet,delayed 40 mg PO BID 03/09/25 04/01/25 release Previous Rx's ?Medication ?Instructions ?Recorded apixaban 5 mg tablet (Eliquis) 5 mg PO BID #60 tabs 10/16/19 albuterol sulfate 90 mcg/actuation 2 inh inhalation Q4H PRN shortness 07/27/22 aerosol inhaler of breath or wheezing #18 grams blood-glucose meter (Blood Glucose #1 ea 05/13/24 Monitoring kit) lancets #100 ea 05/13/24 pen needle, diabetic 32 gauge x #50 ea 05/13/24 1 (BD Ultra-Fine Micro Pen Needle) diclofenac sodium 1 % topical gel 4 g topical QID PRN joint pain 08/24/24 #100 grams insulin glargine 100 unit/mL (3 10 unit (0.1 mL) SUBCUT DAILY #15 09/14/24 mL) subcutaneous pen (Lantus mL Solostar U-100 Insulin) folic acid 1 mg tablet 1 mg PO DAILY #30 tabs 12/11/24 tiotropium 2.5 mcg-olodaterol 2.5 2 puff inhalation DAILY 6 months 03/23/25 mcg/actuation mist for inhalation #4 grams (Stiolto Respimat) arformoterol 15 mcg/2 mL solution 15 mcg (2 mL) inhalation 04/10/25 for nebulization BID.RESPIRATORY #120 mL budesonide 0.5 mg/2 mL suspension 0.5 mg (2 mL) inhalation 04/10/25 for nebulization BID.RESPIRATORY #60 mL metoprolol tartrate 25 mg tablet 25 mg PO BID #60 tabs 04/10/25 prednisone 10 mg tablet See Taper PO DIRECTED #42 tabs 04/10/25 levofloxacin 750 mg tablet 750 mg PO DAILY 7 days #7 tabs 04/11/25 Allergies Allergy/AdvReac Type Severity Reaction Status Date / Time No Known Allergies Allergy Verified 03/23/25 10:38 Review of Systems Narrative: Constitutional: Possible confusion, uncertain about fever Respiratory: Increased shortness of breath, occasional cough with intermittent productive sputum Cardiovascular: no chest pain Gastrointestinal: Abdominal discomfort attributed to hernia Musculoskeletal: Reports rib sensitivity/discomfort Neurological: Confusion, described as droning out Extremities: Denies increased lower extremity edema, reports cold legs PFSH ED PFSH: Medical History Positive cardiac stress test Pneumonia of left upper lobe due to Pseudomonas species Aspiration pneumonia due to vomitus Acute on chronic heart failure with mildly reduced ejection fraction (HFmrEF) History of ESBL E. coli infection Low back pain radiating to lower extremity Greater trochanteric bursitis of left hip Decompensated heart failure Peripheral artery occlusion Port-A-Cath in place 12/02/23 Dr Roberts Greater trochanteric bursitis of right hip Prostate cancer History of colon polyps Chronic anticoagulation eliquis, for afib Chronic respiratory failure with hypoxia Coronary artery disease CHF (congestive heart failure) Last echocardiogram normal EF, grade 2/4 diastolic dysfunction October 2019 Hypertension Anemia Atrial fibrillation GERD (gastroesophageal reflux disease) Hypothyroidism Hyperlipidemia COPD (chronic obstructive pulmonary disease) Surgical History History of cataract surgery Left eye - 12/2022 H/O prostate biopsy S/P appendectomy S/P cholecystectomy History of colonoscopy (~04/2020) History of vasectomy History of knee surgery History of coronary artery bypass graft (03/2019) [address] [place] [address] Family History Father , IN HIS 50'S Lung disease tuberculosis Mother , AT AGE 63 CAD (coronary artery disease) Diabetes Hypertension Sister Cancer Denies family history of Clotting disorder Dementia Hyperlipidemia Psychiatric illness Chronic kidney disease (CKD) Suicide Anesthesia complication Bleeding disorder Stroke Social History Smoking and tobacco/nicotine status: former use of tobacco/nicotine (5 ppd X 52, Quit on 05-12-2017) Quit status (tobacco/nicotine): has quit using Year quit tobacco: 2016 - PPD x 52 Years Former quit date comment: Quit May 12, 2017 Alcohol intake: never Substance/Drug Use: never Additional social history: Wants full CODE STATUS his daughter Sera Jones is his next of kin and she lives in [place]. This was discussed on 04/01/2025 with Luis Eduardo Phillips MD Lives independently: Yes Household members: none Marital status: Legally Current occupational status: employed and retired Do you think of yourself as: Straight/Heterosexual Current gender identity: Male Physical Exam Const: COMMON NORMALS: no acute distress GENERAL APPEARANCE: cooperative and frail appearing ORIENTATION/CONSCIOUSNESS: Yes awake, Yes oriented to person, Yes oriented to place and Yes oriented to time HENMT: COMMON NORMALS: normocephalic and atraumatic HEAD & SCALP: normocephalic and atraumatic FACE & SINUS: normal facial exam and face symmetric NOSE: Normal nares present Eye: COMMON NORMALS: Equal, round and reactive pupils present and EOMs intact bilaterally PUPIL: Yes Equal, round and reactive pupils present Neck/C-Spine: GENERAL: Yes trachea midline Chest: CHEST: Yes Symmetrical chest wall rise Resp: COMMON NORMALS: normal respiratory effort, No use of accessory muscles and clear to auscultation bilaterally AUSCULTATION: clear to auscultation bilaterally and diminished lung sounds Cardio: COMMON NORMALS: regular rate and regular rhythm RATE: regular rate RHYTHM: regular rhythm Extremity: NARRATIVE EXTREMITY EXAM: No edema. Extremities are bilaterally and equally cool. Changes of stasis dermatitis present bilaterally. Neuro: SENSORIUM/ORIENTATION: Yes oriented to person, Yes oriented to place and Yes oriented to time Course Vital Signs: Vital signs: Vital Signs Temperature 98.3 F 04/11/25 18:16 Pulse Rate 96 04/11/25 20:44 Respiratory Rate 18 04/11/25 20:44 Blood Pressure 160/108 04/11/25 19:41 Pulse Oximetry 94 04/11/25 20:44 Oxygen Delivery Me thod Nasal Cannula 11/09/25 20:44 Oxygen Flow Rate 2 04/11/25 20:44 MDM - Weakness Medical Decision Making Vitals are stable here. He is on his home oxygen setting. He is resting comfortably. He is awake. He is alert. He is given some Solu-Medrol, DuoNeb treatment here, as he has not been able to picker his medication from his discharge yesterday. Chest x-ray shows persistent dense left upper lobe infiltrate. It appears that he was not sent home on antibiotics. His sputum culture grew Pseudomonas sensitive to fluoroquinolones. He was placed on Levaquin, given 1 here. He will continue this. Outpatient follow-up. Return for worsening symptoms. He is stable at this point. He knows he is to picker his medication at the pharmacy tomorrow to continue treatment. Lab Data 04/11/25 18:48 04/11/25 18:48 Radiology Impressions Chest X-Ray 04/11/25 18:39 IMPRESSION: Findings persistent dense consolidated appearance left upper lobe infectious pneumonia could be consideration follow-up to full resolution recommended Findings of severe emphysema with suspicion of superimposed lower lobe predominant changes of UIP type interstitial lung disease and fibrosis Cardiomegaly Laboratory Results WBC 10.30 10^3/uL (3.29-11.43) 04/11/25 18:48 RBC 4.33 10^6/uL (3.85-5.65) 04/11/25 18:48 Hgb 11.60 g/dL (11.27-16.99) 04/11/25 18:48 Hct 37.9 % (37-53) 04/11/25 18:48 MCV 87.5 fl (82-101) 04/11/25 18:48 MCH 26.8 pg (27-33) L 04/11/25 18:48 MCHC 30.6 g/dL (30-55) 04/11/25 18:48 RDW 16.9 % (12.1-15.1) H 04/11/25 18:48 Plt Count 183 10^3/cmm (157-399) 04/11/25 18:48 MPV 9.4 fL (7.4-10.4) 04/11/25 18:48 Neut % (Auto) 88.5 % 04/11/25 18:48 Lymph % (Auto) 4.0 % 04/11/25 18:48 Butts % (Auto) 6.3 % 04/11/25 18:48 Eos % (Auto) 0.6 % 04/11/25 18:48 Baso % (Auto) 0.2 % 04/11/25 18:48 Neut # (Auto) 9.12 10^3/uL (1.8-7.7) H 04/11/25 18:48 Lymph # (Auto) 0.4 10^3/uL (0.8-4.8) L 04/11/25 18:48 Butts # (Auto) 0.7 10^3/uL (0.2-0.9) 04/11/25 18:48 Eos # (Auto) 0.1 10^3/uL (0.0-0.8) 04/11/25 18:48 Baso # (Auto) 0.0 10^3/uL (0.0-0.1) 04/11/25 18:48 Nucleated RBC % (auto) 0 % 04/11/25 18:48 Nucleated RBCs # 0.0 /100WBC 04/11/25 18:48 Specimen Type Arterial 04/11/25 18:46 Sample Site Brachial, left 04/11/25 18:46 ABG pH 7.50 (7.35-7.45) H 04/11/25 18:46 ABG pCO2 36.0 mmHg (35-45) 04/11/25 18:46 ABG pO2 89.3 mmHg (80.0-100.0) 04/11/25 18:46 ABG PO2/FiO2 Ratio 318 04/11/25 18:46 ABG HCO3 28.0 mmol/L (22-26) H 04/11/25 18:46 ABG Base Excess 4.7 mmol/L (-2.0-2.0) H 04/11/25 18:46 Derek Test N/a 04/11/25 18:46 Hematocrit 37.3 % (42-52) L 04/11/25 18:46 O2 Delivery Device Nc 04/11/25 18:46 O2 Liters/Min 2.0 % 04/11/25 18:46 FiO2 28.0 % 04/11/25 18:46 Starch Dumper ID Amh 04/11/25 18:46 Sodium 138 mmol/L (136-145) 04/11/25 18:48 Potassium 3.5 mmol/L (3.5-5.1) 04/11/25 18:48 Chloride 99 mmol/L (98-107) 04/11/25 18:48 Carbon Dioxide 26 mmol/L (22-29) 04/11/25 18:48 Anion Gap 16.5 (5-19) 04/11/25 18:48 BUN 19 mg/dL (8-23) 04/11/25 18:48 Creatinine 0.8 mg/dL (0.7-1.2) 04/11/25 18:48 GFR Calculation 95.6 mL/min (90-130) 04/11/25 18:48 Glucose 123 mg/dL (65-115) H 04/11/25 18:48 Calculated Osmolality 290 mOsm/kg (285-295) 04/11/25 18:48 Lactic Acid 1.2 mmol/L (0.5-2.2) 04/11/25 18:48 Calcium 8.5 mg/dL (8.5-10.5) 04/11/25 18:48 Magnesium 2.0 mg/dL (1.7-2.3) 04/11/25 18:48 Total Bilirubin 1.2 mg/dL (0.15-1.2) 04/11/25 18:48 AST 10 U/L (0-40) 04/11/25 18:48 ALT 11 U/L (0-41) 04/11/25 18:48 Alkaline Phosphatase 81 U/L (40-130) 04/11/25 18:48 C-Reactive Protein 104.1 mg/L (0.0-4.9) H 04/11/25 18:48 NT-Pro-B Natriuret Pep 3773 pg/mL (0-125) H 04/11/25 18:48 Total Protein 6.6 g/dL (6.6-8.7) 04/11/25 18:48 Albumin 3.5 g/dL (3.5-5.2) 04/11/25 18:48 Globulin 3.1 g/dL (1.3-4.6) 04/11/25 18:48 All radiology interpretation(s) finalized by discharge Discharge Plan Discharge Patient Disposition: Home Clinical Impression: Pneumonia of left upper lobe due to Pseudomonas species, Acute on chronic heart failure with mildly reduced ejection fraction (HFmrEF) COPD (chronic obstructive pulmonary disease) Qualifiers: COPD type: emphysema Emphysema type: centrilobular Qualified Code(s): J43.2 - Centrilobular emphysema Condition: Stable Prescriptions: New levofloxacin 750 mg tablet 750 mg PO DAILY 7 Days Qty: 7 0RF No Action diclofenac sodium 1 % gel 4 g topical QID PRN (Reason: joint pain) Qty: 100 3RF Rx Instructions: apply to single knee, ankle, foot; for foot includes sole/toes/top of foot insulin glargine [Lantus Solostar U-100 Insulin] 100 unit/mL (3 mL) insulin pen 10 unit SUBCUT DAILY Qty: 15 0RF folic acid 1 mg tablet 1 mg PO DAILY Qty: 30 0RF Stiolto Respimat 2.5-2.5 mcg/actuation mist 2 puff inhalation DAILY 180 Days Qty: 4 6RF Eliquis 5 mg Tablet 5 mg PO BID Qty: 60 0RF potassium chloride 20 mEq Tablet Extended Release 20 meq PO QAM furosemide [Lasix] 40 mg tablet 40 mg PO QAM Flomax 0.4 mg capsule 0.4 mg PO BID albuterol sulfate 90 mcg/actuation HFA aerosol inhaler 2 inh INHALATION Q4H PRN (Reason: shortness of breath or wheezing) Qty: 18 0RF (DME) pen needle, diabetic [BD Ultra-Fine Micro Pen Needle] 32 gauge x 1/4 needle See Rx Instructions .ROUTE .MEDSUPPLY Qty: 50 0RF Rx Instructions: As directed (DME) lancets [facility] [place] See Rx Instructions .ROUTE .MEDSUPPLY Qty: 100 0RF Rx Instructions: As directed (DME) blood-glucose meter [Blood Glucose Monitoring] Kit See Rx Instructions .ROUTE .MEDSUPPLY Qty: 1 0RF Rx Instructions: As directed levothyroxine 125 mcg Tablet 125 mcg PO QAM atorvastatin 20 mg Tablet 10 mg PO BEDTIME albuterol sulfate 2.5 mg /3 mL (0.083 %) Solution For Nebulization 2.5 mg INHALATION Q6H PRN (Reason: Shortness Of Breath) sertraline 100 mg Tablet 100 mg PO QPM clopidogrel 75 mg Tablet 75 mg PO DAILY aspirin 81 mg Tablet,Delayed Release (Dr/Ec) 81 mg PO DAILY gabapentin 100 mg Capsule 200 mg PO TID cholecalciferol (vitamin D3) [Vitamin D3] 50 mcg (2,000 unit) Tablet 50 mcg PO DAILY sennosides-docusate sodium 8.6-50 mg tablet 1 tab PO DAILY arformoterol 15 mcg/2 mL Solution For Nebulization 15 mcg inhalation BID.RESPIRATORY Qty: 120 0RF budesonide 0.5 mg/2 mL Suspension For Nebulization 0.5 mg inhalation BID.RESPIRATORY Qty: 60 0RF prednisone 10 mg tablet See Taper PO DIRECTED Qty: 42 0RF Taper: predniSONE 60-10 60 mg Daily for 2 Days and 0 Hour 50 mg Daily for 2 Days and 0 Hour 40 mg Daily for 2 Days and 0 Hour 30 mg Daily for 2 Days and 0 Hour 20 mg Daily for 2 Days and 0 Hour 10 mg Daily for 2 Days and 0 Hour Rx Instructions: see taper instructions metoprolol tartrate 25 mg Tablet 25 mg PO BID Qty: 60 0RF loratadine 10 mg tablet 10 mg PO QAM nitroglycerin [Nitrostat] 0.4 mg Tablet, Sublingual 0.4 mg SUBLINGUAL Q5M PRN (Reason: Chest Pain) Rx Instructions: do not exceed 3 doses per episode digoxin 250 mcg (0.25 mg) tablet 250 mcg PO QAM calcium carbonate 500 mg calcium (1,250 mg) Tablet 500 mg PO BID pantoprazole 40 mg tablet,delayed release (DR/EC) 40 mg PO BID Jardiance 25 mg tablet 12.5 mg PO DAILY cyanocobalamin (vitamin B-12) [Vitamin B-12] 100 mcg Tablet 100 mcg PO DAILY Discharge Orders: Discharge ED (Routine); Ordered 04/11/25 Ordered By: Boubacar Hall Referrals: Isela Gipson FNP [Primary Care Provider, Nurse Practitioner] - 1-3 days Patient Instructions: Heart Failure (ED), COPD (Chronic Obstructive Pulmonary Disease) (ED), Pneumonia (ED), Opioid Safety, Pain Management, Patient Portal & Elizabeth Instructions Activity Restrictions/Additional Instructions: Fill your prescriptions at the pharmacy tomorrow. An antibiotic has been added for you to continue, as the pneumonia present during your admission on chest x-ray is still there. Call your doctor tomorrow for follow-up appointment. Return for any worsening symptoms despite above treatments. Print Language: [place] Citizen 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 of Care Code ED Supply Chain Analyst for Kevin Arceo
--- NOTE | 2025-04-11 18:47 | ECG_ITS ---
[employer] 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 Measurements Intervals [place] Rate: 84 P: 0 MN: 0 QRS: 83 QRSD: 137 T: -32 QT: 398 QTc: 473 Interpretive Statements ATRIAL FIBRILLATION RIGHT BUNDLE BRANCH BLOCK [120+ ms QRS DURATION, UPRIGHT V1, 40+ ms S IN I/aVL/V4/V5/V6] Compared to ECG 04/01/2025 20:52:20 T-wave abnormality no longer present Possible ischemia no longer present Electronically Signed On 04-11-2025 20:10:28 [employer] by Mathew Sanchez M.D. [email or web address]
[2025-04-11 18:57] LABS: ABG PCO2 36.0 mmHg (35-45); ABG PH Result 7.50 (7.35-7.45); Arterial Blood Gas Hematocrit 37.3 % (42-52); Blood Gas LPM 2.0 %; Blood Gas Operator Identificat AMH; Blood Gas Sample Site Brachial, left; Blood Gas Sample Type Arterial; HCO3 ABG 28.0 mmol/L (22-26); PO2 ABG 89.3 mmHg (80.0-100.0); PO2 FiO2 Ratio Arterial Blood 318
[2025-04-11 18:59] LABS: Hematocrit 37.9 % (37-53); Hemoglobin 11.60 g/dL (11.27-16.99); Mean Corpuscular HGB Conc 30.6 g/dL (30-55); Mean Corpuscular Hemoglobin 26.8 pg (27-33); Mean Corpuscular Volume 87.5 fl (82-101); Nucleated Red Blood Cells % 0 %; Platelet Count 183 10^3/cmm (157-399); Red Blood Count 4.33 10^6/uL (3.85-5.65); White Blood Count 10.30 10^3/uL (3.29-11.43)
[2025-04-11 19:17] LABS: Lactic Sepsis W/Reflex 1.2 mmol/L (0.5-2.2)
[2025-04-11 19:28] LABS: Alanine Aminotransferase 11 U/L (0-41); Albumin Level 3.5 g/dL (3.5-5.2); Alkaline Phosphatase 81 U/L (40-130); Anion Gap 16.5 (5-19); Aspartate Amino Transferase 10 U/L (0-40); Blood Urea Nitrogen 19 mg/dL (8-23); Calcium 8.5 mg/dL (8.5-10.5); Carbon Dioxide 26 mmol/L (22-29); Chloride 99 mmol/L (98-107); Creatinine Clr Calc Pharmacy 91.2416; Globulin 3.1 g/dL (1.3-4.6); Glucose 123 mg/dL (65-115); Magnesium 2.0 mg/dL (1.7-2.3); NT Pro B Type Natriuretic Pept 3773 pg/mL (0-125); Osmolality Calculated 290 mOsm/kg (285-295); Potassium 3.5 mmol/L (3.5-5.1); Sodium 138 mmol/L (136-145); Total Protein 6.6 g/dL (6.6-8.7)
[2025-04-11] MEDS: FUROsemide 10 mg/mL SDV 10mL 60 MG IVP (21:53)
[2025-04-11] MEDS: methylPREDNISolone sod succ 125 mg/2 mL INJ 80 MG IVP (21:57)
== END 2025-04-11 23:16 | disposition home or self-care (01) ==
PROVIDERS: Emergency Provider Emergency Medicine; PCP Nurse Practitioner
DX: J15.1 Pneumonia due to Pseudomonas (principal); J43.2 Centrilobular emphysema; Z79.01 Long term (current) use of anticoagulants; Z79.02 Long term (current) use of antithrombotics/antiplatelets; Z79.82 Long term (current) use of aspirin; I25.10 Atherosclerotic heart disease of native coronary artery without angina pectoris; E78.5 Hyperlipidemia, unspecified; I11.0 Hypertensive heart disease with heart failure; I50.23 Acute on chronic systolic (congestive) heart failure
CPT/HCPCS: 36415; 36600; 71045; 80053; 82803; 83605; 83735; 83880; 85025; 86140; 87040; 93005; 94640; 96374; 96375; 99285; 99291; J1938; J2919; J9999

== ENCOUNTER 2025-04-23 16:54 | Emergency (ER) | payer OTHER, SELFPAY ==
[2025-04-23 16:56] VITALS: BP 115/59; PULSE 94; RESP 17; TEMP 36.8; O2SAT 95; BMI 24.5
--- OUTSIDE RECORDS SUMMARY | 2025-04-23 17:03 | XMS_ITS | Data Portability ---
Author Organization [place] [facility] [place], ADMIN Address [address] [place] [phone] Assessment Encounter Date Assessment Date Assessment LastModified [...] Foregut and General Surgeon Department of Surgery, [facility] Not available 10/27/2024 13:41:59 10/28/2024 10/28/2024 69-year-old male patient. [email or web address] Not available 10/28/2024 15:30:29 11/24/2024 11/24/2024 69-year-old male presents to clinic for colonoscopy consult. Patient previously underwent colonoscopy 03/24/2024 at [facility] in [place]. Colonoscopy revealed a large ascending colon polyp. [...] 1. History of incomplete colonoscopy 03/24/2024 at [facility] in [place], large ascending polyp identified without removal due [...] GI clinic 2 weeks post endoscopic procedure [email or web address] Not available 11/24/2024 11:56:04 12/15/2024 12/15/2024 69-year-old [...] in 1 year 2. Follow-up as needed Not available 12/15/2024 10:58:05 Plan of Treatment Reminders Order Date Submit Date Provider Last Modified By Organization Details Last Modified Time Details Appointments Establish ed Patient 2025 09:00A M POLI MELGOZA, P.A. Not available Not available Not available Lab None recorded. Referral None recorded. Procedures colonosco py procedure (PROC) - IV Lock, Initiate Take biopsies if indicated , possible hemorroid al banding, possible argon plasma coagulati on, possible hot/cold snare polypecto my, possible dilation of stricture . CPT: 09559, 64765, 16417,453 82 2024 025 [facility], [address], [place], [address], 12/01/2024 12:00:14 Surgeries None recorded. Imaging None recorded. Medication Orders MoviPrep 100 gram-7.5 gram-2.69 1 gram oral powder packet 2024 025 [facility], [address], [place], [address], 11/24/2024 10:49:24 Patient TargetsNo targets recorded. Patient Instructions Encounter Date Encounter Id Patient Instructions Last Modified By Organization Details Last Modified Time 05/05/2024 [id number] chronic obstructive pulmonary disease (COPD): care instructions [facility] Not available 05/30/2024 13:29:12 learning about copd and how to prevent lung infections [email or web address] Not available 05/30/2024 13:29:12 10/28/2024 [id number] chronic obstructive pulmonary disease (COPD): care instructions [facility] Not available 10/28/2024 15:45:57 learning about copd and how to prevent lung infections [facility] Not available 10/28/2024 15:45:57 Reason for Referral None Reported. Results Created Date Observation Date Name Description Value Unit Range Abnormal Flag Note LastModifiedBy Organization Detail LastModifiedTime 12/02/1912/01/2024 GLUCO SE LEVEL POC BEDSI DE glu POC bdside 122 mg/dL 65-90 high Opera [place] ID: [id number] [facility] (Lab)_do Not Use [address], [place], [address], 12/01/2024 08:53:13 04/08/20 24 03/26/2024 LDCT, chest , for lung cance r nadira aleman No observ ation record ed. BARCODE Not Available 2023 15:46:30 11/17/1910/28/2024 CT, chest , w/o contr ast [facility] [facility] [address] [place] [address]- [phone] Patien t: GABINO HODGE Sr MRN:[id number] : 955 Sex:Ma le Locati on: MOBI CT Orderi ng Physic hilda: DENAE MOURA MD Comput ed Tomogr aphy Access ion Exam Date/T karina [id number] 0038 025 13:33 CDT Reason for Exam R91.8 Other nonspe cific abnorm al findin g of lung field 10887 Report EXAM: CT CHEST WITHOU T CONTRA [...] Signed by: JULIENNE LOPEZ MD Signed (Elect ronrobert Signat ure): 2024 11:16 am [facility] [address] [facility], [place], [address], 11/16/2024 12:18:00 01/16/20 25 11/04/2024 US, duple x, arter ial, lower extre mity, compl ete No observ ation record ed. BARCODE Not Available 2024 16:47:55 Result Notes Documentation Provider Name and Address Organization Details Recorded Time Ct, Chest, W/o Contrast : [facility] [address] [place] [phone]- Patient: GABINO HODGE Sr : 1955 Sex:Male Location: [facility] CT Ordering Physician: ALISON SOLANO MD Computed Tomography Accession Exam Date/Time [id number] 10/28/2024 13:33 CDT Reason for Exam R91.8 Other nonspecific abnormal finding of lung field 88420 Report EXAM: CT CHEST WITHOUT CONTRAST HISTORY: [...] MD Signed (Electronic Signature): 11/16/2024 11:16 am JESUST Gladis Bains LPN [place], [place] - [facility] [place] 11/16/2024 12:18:00 Problems Name Problem SNOMED Code Status Onset Date Resolution Date Notes Provider Name and Address Organization Details Recorded Time Polyp of colon 58907996 Active 2024 SHARON LAKHANI [address] [place] [address], [phone], [facility] [place] 5 09:52:53 Tubular adenomatous polyp of colon 627634058 Active 2024 SHARON LAKHANI [address] [place] [address], [phone], [facility] [place] 5 10:58:22 Problem Notes None recorded. Procedures Surgical History Date Name Laterality Status Provider Name and Address Organization Details Recorded Time cholecystectomy completed DELVIN Cespedes - [facility] [place] 12/19/2023 15:34:57 Appendectomy completed Gardenia Gonzalez LPN [address] 12/19/2023 15:35:10 open heart surgery completed Tiesha Gonzalez LPN [address] 12/19/2023 15:35:26 arthroplasty of knee completed Evelyn Huddleston [address] 11/24/2024 09:33:01 Imaging Results None recorded. Procedure Notes None recorded. Medical Equipment None Reported. Allergies Allergen ID Allergen Name Allergen Category Reaction Reaction Severity Criticality Documentation Date Start Date Code Code System Note Provider Name and Address Organization Details Recorded Time 319930 bupropion Not available Not available Not available Not available 12/19/2023 58371 RxNorm DELVIN Cespedes [address] 4 15:15:22 350262 Wellbutri n medicatio n Not available Not available Not available 12/19/2023 56725 RxNorm DELVIN Cespedes [address] 4 15:15:51 Medications Name Sig Start Date Stop Date Status Note LastModified by Organization Details LastModified Time furosemide 40 mg tablet Take 1 tablet every day by oral route. active Not Available Not Available No t Available prednisone 10 mg tablet TAKE SIX TABLETS BY MOUTH DAILY FOR 2 DAYS, FIVE TABLETS DAILY FOR 2 DAYS, FOUR TABLETS DAILY FOR 2 DAYS, THREE TABLETS DAILY FOR 2 DAYS, TWO TABLETS DAILY FOR 2 DAYS, ONE TABLET DAILY FOR 2 DAYS active Not Available Not Available No [...] Not Available Not Available No t Available azithromyci n 250 mg tablet TAKE ONE TABLET BY MOUTH DAILY FOR 5 DAYS 04/20 completed Not Available Not Available Not Available prednisone 20 mg tablet TAKE 2 [...] completed Not Available Not Available Not Available cefdinir 300 mg capsule TAKE ONE CAPSULE BY MOUTH TWICE DAILY FOR 5 DAYS 04/20 completed Not Available Not Available Not Available [...] Vitals Date Recorded Body height Oxygen saturation Heart rate Body mass index (BMI) Body weight Systolic And Diastolic Provider Name and Address Organization Details Last Updated DateTime 5 177.8 cm 90 % 69 /min 27.1 kg/m2 45983.2 4 g 106/53 mm[Hg] Colby Sharma LPN [place] [facility] [place] 5 12:08:29 Date Recorded Body height Body mass index (BMI) Body weight Body temperature Heart rate Oxygen saturation Systolic And Diastolic Provider Name and Address Organization Details Last Updated DateTime 5 177.8 cm 26.8 kg/m2 73460.1 3 g 97.3 [degF] 68 /min 92 % 102/50 mm[Hg] Airam Marsh LPN [address] 5 15:11:41 Date Recorded Body height Body mass index (BMI) Body weight Oxygen saturation Heart rate Systolic And Diastolic Provider Name and Address Organization Details Last Updated DateTime 5 177.8 cm 26.5 kg/m2 72806.1 5 g 93 % 80 /min 96/53 mm[Hg] Evelyn Huddleston [address] 5 09:44:18 Date Recorded Body height Body mass index (BMI) Body weight Oxygen saturation Heart rate Systolic And Diastolic Provider Name and Address Organization Details Last Updated DateTime 5 177.8 cm 27 kg/m2 31656.3 7 g 96 % 80 /min 125/60 mm[Hg] Evelyn Huddleston [address] 5 10:30:29 Date Recorded Body height Body mass index (BMI) Body weight Heart rate Oxygen saturation Systolic And Diastolic Provider Name and Address Organization Details Last Updated DateTime 4 177.8 cm 31.3 kg/m2 19235.8 6 g 100 /min 93 % 151/66 mm[Hg] Airam Marsh LPN [address] 4 15:45:07 Social History Question Answer Notes LastModified by Organizat ion Details LastModified Time Tobacco Smoking Status Former Smoker quit 2016 Aryan Meza LPN [address] 03/26/2024 13:29:02 Are You Blind Or Do You Have Difficulty Seeing? No [email or web address] Information not available 10/28/2024 What Is Your Level Of Caffeine Consumption? Occasional [email or web address] Information not available 12/19/2023 Are You Deaf Or Do You Have Serious Difficulty Hearing? No [email or web address] Information not available 10/28/2024 What Type Of Diet Are You Following? REGULAR [email or web address] Information not available 12/19/2023 When Did You Quit Smoking? 6-10yearssince lastcigarette [email or web address] Information not available 12/19/2023 What Was The Date Of Your Most Recent Tobacco Screening? 12/15/2024 [email or web address] Information not available 12/15/2024 What Is Your Current Pack Years? 20-29packyears Information not available 10/28/2024 What Is Your Relationship Status? [email or web address] Information not available 12/19/2023 At What Age Did You Start Smoking Tobacco? 9 [email or web address] Information not available 05/05/2024 How Much Tobacco Do You Smoke? 2 PPW [email or web address] Information not available 05/05/2024 How Many Years Have You Smoked Tobacco? 42 [email or web address] Information not available 05/05/2024 Do You Have Difficulty Walking Or Climbing Stairs? Yes [email or web address] Information not available 10/28/2024 Sex: Unknown Functional Status Question Answer Note LastModified by Organizat ion Details LastModified Time Do you use any illicit or recreational drugs? No [email or web address] Information not available 05/05/2024 Do you or have you ever used any other forms of tobacco or nicotine? No [email or web address] Information not available 05/05/2024 What is your level of alcohol consumption? None [email or web address] Information not available 12/19/2023 Are you able to care for yourself independently? No [email or web address] Information not available 10/28/2024 Do you have difficulty dressing, bathing, grooming, or toileting? Yes [email or web address] Information not available 10/28/2024 Mental Status Question Answer Note LastModified by Organization D etails LastModified Time Do you have difficulty concentrating, remembering or making decisions? Yes [email or web address] Information no t available 10/28/2024 Family History Relationship Description Onset Age of this Age Resolved Age Notes LastModified by Organization Details LastModified Time Father No current problems or disability [email or web address] Not available 15:45:38 Mother No current problems or disability [email or web address] Not available 15:45:38 Medical History Condition Response HEART DISEASE Y HYPERTENSION Y Past Encounters Encounter ID Performer Location Encounter Start Date Encounter Closed Date Diagnosis/Indication Diagnosis SNOMED-CT Code Diagnosis ICD10 Code Diagnosis IMO Codes Diagnosis Note [id number] Alison Solano MD [facility] [address] [place] [address] 12/19/2023 14:56:29 12/19/2023 16:00:36 Chronic obstructive pulmonary disease 13072042 J44.9 Patient has shortness of breath on [...] March 2024. Multiple n odules of lung 505647430 R91.[address] chest done [...] chest March 2024. 2. Follow-up March 2024. [id number] Alison Solano MD [facility] [address] [place] [address] 03/26/2024 12:27:18 03/26/2024 13:51:45 Patient walked out [id number] Z53.21 Appointmen t reschedule d because patient did not have the CT chest done. [id number] Alison Solano MD [facility] [address] [place] [address] 05/05/2024 15:08:03 05/05/2024 16:14:20 Chronic obstructive pulmonary disease 93213354 J44.9 PFT showed evidence of severe obstructio [...] 125%.DLCO 39%. Multiple n odules of lung 155123262 R91.[address] chest done [...] CT chest June 2024.2. Follow-up June 2024. [id number] NORM JJ MD [facility] [address] [place] [address] 10/27/2024 11:51:03 10/27/2024 18:03:27 Paraesophageal hernia 8844686 K44.9 9220 Gastric hemorrhage 13812 005 K25.4 9660809752 Essential hypertension 22213374 I10 13501 Mixed hyperlipidemia 267 027075 E78.2 65601 Paroxysmal atrial fibrillation 499133091 I48.0 8538152 Chronic ob structive pulmonary disease 92453070 J44.9 [id number] Alison Solano MD [facility] [address] [place] [address] 10/28/2024 14:50:04 10/28/2024 15:47:32 Chronic obstructive pulmonary disease 22971185 J44.9 PFT showed evidence of severe obstructio [...] 125%.DLCO 39%. Multiple n odules of lung 369023111 R91.[address] chest done [...] CT chest February 2025.2. Follow-up February 2025. [id number] SHARON LAKHANI [facility] [address] [place] [address] 11/24/2024 09:23:08 11/26/2024 11:54:34 Polyp of colon 99388503 K63.5 53006030 Family his tory of cancer of colon 586932639 Z80.0 263547 [id number] SHARON LAKHANI [facility] [address] [place] [address] 12/15/2024 10:17:22 12/15/2024 14:35:47 Tubular adenomatous polyp of colon 333550708 D12.6 601458 Health Concerns Section Related Observation LastModified by Organization Detai ls LastModified Time None Recorded Concern Status LastModified by Organization Details LastModified Time None Recorded Advance Directives Directive None Recorded Payers Insurance Date Sequence Insurance Name Policy Number Policy Salgado Covered Member ID Salgado Member ID Guarantor Name 04/20/2025 [employer] - [facility] Gabino Hodge [id number] Gabino Hodge Notes Date Note Type Note [...] 5 packs/day. 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 Imaging: ---> LDCT chest ([facility]) on 11/18/2023:1. Chronic findings as notes 2. Pulmonary nodules as annotated 3. LUNGS-RADS 4ALUNG-RADS: 4A: Suspicious.3 months follow-up low-dose CTAddendum: Noted at the time of the reading, but not mentioned in the initial report is near total resolution of previously noted LLL infiltrate with some residual scarring Alison Solano MD [address] [facility], [place], [address], [facility] [place] 05/30/2024 13:29:15 10/27/2024 text/html CC: Patient comes to see me in [facility] complaining of large hiatal hernia, Kenton's ulcers HPI 10/27/2024:69 y.o. male with a past medical history of hypertension, hyperlipidemia, coronary artery disease s/p CABG, atrial fibrillation on Eliquis, congestive heart failure, COPD, GERD, and prostate cancer who presented to the ED [facility] [place] [facility] after he had two episodes of dark [...] notable for hemoglobin of 9.3. At the [facility], patient's hemoglobin was 9.6. FOBT was negative. [...] Jamison salvage.Fluoro time: 1minutes 28secAir Kerma: 71.8mGyDAP: 1005.8qLtl5ODYWAZOLOK: Moderate to large sliding type hiatal hernia.Limited [...] or malignancy.Negative for H. pylori organisms. NORM JJ MD [address] [place], [address], [facility] [place] 10/27/2024 13:43:36 10/28/2024 text/html 69-year-old male patient with a past medical history significant for hypertension, heart disease status post CABG, COPD who presents for follow up. Patient is accompanied by his agriculture department chair. He was last seen in office on [...] 5 packs/day. 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 Imaging: ---> LDCT chest ([facility]) on 11/18/2023:1. Chronic findings as notes 2. Pulmonary nodules as annotated 3. LUNGS-RADS 4ALUNG-RADS: 4A: Suspicious.3 months follow-up low-dose CTAddendum: Noted at the time of the reading, but not mentioned in the initial report is near total resolution of previously noted LLL infiltrate with some residual scarring Alison Solano MD [address] [place], [address], [facility] [place] 10/28/2024 15:46:01 11/24/2024 text/html 69-year-old male presents to clinic for colonoscopy consult. Patient previously underwent colonoscopy 03/24/2024 at [facility] in [place]. Colonoscopy revealed a large ascending colon polyp. [...] 1. History of incomplete colonoscopy 03/24/2024 at [facility] in [place], large ascending polyp identified without removal due [...] weeks post endoscopic procedure SHARON LAKHANI [address] [facility], [place], [address], [facility] [place] 11/24/2024 11:56:48 12/15/2024 text/html 69-year-old male presents [...] year2. Follow-up as needed SHARON LAKHANI [address] [place], [address], [facility] [place] 12/15/2024 10:58:40
[2025-04-23 17:16] LABS: Hematocrit 35.3 % (37-53); Hemoglobin 10.90 g/dL (11.27-16.99); Mean Corpuscular HGB Conc 30.9 g/dL (30-55); Mean Corpuscular Hemoglobin 26.3 pg (27-33); Mean Corpuscular Volume 85.3 fl (82-101); Nucleated Red Blood Cells % 0 %; Platelet Count 265 10^3/cmm (157-399); Red Blood Count 4.14 10^6/uL (3.85-5.65); White Blood Count 5.39 10^3/uL (3.29-11.43)
[2025-04-23] MEDS: ondansetron 2 mg/ML SDV 2 mL 4 MG IVP (17:33)
[2025-04-23 17:39] LABS: Alanine Aminotransferase 11 U/L (0-41); Albumin Level 3.2 g/dL (3.5-5.2); Alkaline Phosphatase 86 U/L (40-130); Anion Gap 18.1 (5-19); Aspartate Amino Transferase 12 U/L (0-40); Blood Urea Nitrogen 7 mg/dL (8-23); Calcium 8.5 mg/dL (8.5-10.5); Carbon Dioxide 23 mmol/L (22-29); Chloride 101 mmol/L (98-107); Globulin 3.1 g/dL (1.3-4.6); Glucose 190 mg/dL (65-115); Magnesium 2.0 mg/dL (1.7-2.3); Osmolality Calculated 291 mOsm/kg (285-295); Potassium 3.1 mmol/L (3.5-5.1); Sodium 139 mmol/L (136-145); Total Protein 6.3 g/dL (6.6-8.7)
[2025-04-23 17:48] VITALS: BP 113/49; PULSE 93; RESP 16; O2SAT 100
[2025-04-23 18:10] VITALS: PULSE 91; RESP 16; O2SAT 98
--- NOTE | 2025-04-23 18:27 | W.ED.NAVMDI ---
HPI - Nausea/Vomiting/Diarrhea General: Chief complaint: Nausea/Vomiting/Diarrhea Stated complaint: diarrhea x 16 days Time Seen by Provider: 04/23/25 16:59 History of Present Illness: 69-year-old male presents emergency room he states he has had diarrhea for the last 16 days. Denies any hematochezia or melena. He has watery foul-smelling stool. He tried some Imodium and [facility] actually seem to make him cramp and more uncomfortable. He is continuing to have 10-15 loose mucousy watery stools per day. Associated nausea: No Associated symtoms: Reports bloating; Denies chest pain, dysuria or nausea Related Data Home Medications ?Medication ?Instructions ?Recorded ?Confirmed furosemide 40 mg tablet (Lasix) 40 mg PO QAM 03/28/21 04/01/25 potassium chloride 20 mEq 20 meq PO QAM 03/28/21 04/01/25 tablet,extended release tamsulosin 0.4 mg capsule (Flomax) 0.4 mg PO BID 02/25/23 04/01/25 loratadine 10 mg tablet 10 mg PO QAM 05/15/23 04/01/25 digoxin 250 mcg (0.25 mg) tablet 250 mcg PO QAM 08/04/23 04/01/25 nitroglycerin 0.4 mg sublingual 0.4 mg sublingual Q5M PRN Chest 08/04/23 04/01/25 tablet (Nitrostat) Pain levothyroxine 125 mcg tablet 125 mcg PO QAM 07/09/24 04/01/25 albuterol sulfate 2.5 mg/3 mL 2.5 mg inhalation Q6H PRN 01/28/25 04/01/25 (0.083 %) solution for nebulization Shortness Of Breath aspirin 81 mg tablet,delayed 81 mg PO DAILY 01/28/25 04/01/25 release atorvastatin 20 mg tablet 10 mg PO BEDTIME 01/28/25 04/01/25 cholecalciferol (vitamin D3) 50 50 mcg PO DAILY 01/28/25 04/01/25 mcg (2,000 unit) tablet (Vitamin D3) clopidogrel 75 mg tablet 75 mg PO DAILY 01/28/25 04/01/25 gabapentin 100 mg capsule 200 mg PO TID 01/28/25 04/01/25 sennosides 8.6 mg-docusate sodium 1 tab PO DAILY 01/28/25 04/01/25 50 mg tablet sertraline 100 mg tablet 100 mg PO QPM 01/28/25 04/01/25 calcium carbonate 500 mg PO BID 03/09/25 04/01/25 cyanocobalamin (vitamin B-12) 100 100 mcg PO DAILY 03/09/25 04/01/25 mcg tablet (Vitamin B-12) empagliflozin 25 mg tablet 12.5 mg PO DAILY 03/09/25 04/01/25 (Jardiance) pantoprazole 40 mg tablet,delayed 40 mg PO BID 03/09/25 04/01/25 release Previous Rx's ?Medication ?Instructions ?Recorded apixaban 5 mg tablet (Eliquis) 5 mg PO BID #60 tabs 10/16/19 albuterol sulfate 90 mcg/actuation 2 inh inhalation Q4H PRN shortness 07/27/22 aerosol inhaler of breath or wheezing #18 grams blood-glucose meter (Blood Glucose #1 ea 05/13/24 Monitoring kit) lancets #100 ea 05/13/24 pen needle, diabetic 32 gauge x #50 ea 05/13/2406/06 (BD Ultra-Fine Micro Pen Needle) diclofenac sodium 1 % topical gel 4 g topical QID PRN joint pain 08/24/24 #100 grams insulin glargine 100 unit/mL (3 10 unit (0.1 mL) SUBCUT DAILY #15 09/14/24 mL) subcutaneous pen (Lantus mL Solostar U-100 Insulin) folic acid 1 mg tablet 1 mg PO DAILY #30 tabs 12/11/24 tiotropium 2.5 mcg-olodaterol 2.5 2 puff inhalation DAILY 6 months 03/23/25 mcg/actuation mist for inhalation #4 grams (Stiolto Respimat) arformoterol 15 mcg/2 mL solution 15 mcg (2 mL) inhalation 04/10/25 for nebulization BID.RESPIRATORY #120 mL budesonide 0.5 mg/2 mL suspension 0.5 mg (2 mL) inhalation 04/10/25 for nebulization BID.RESPIRATORY #60 mL metoprolol tartrate 25 mg tablet 25 mg PO BID #60 tabs 04/10/25 prednisone 10 mg tablet See Taper PO DIRECTED #42 tabs 04/10/25 Allergies Allergy/AdvReac Type Severity Reaction Status Date / Time No Known Allergies Allergy Verified 03/23/25 10:38 Review of Systems Const: Denies: fever(s) or chills Card: Denies: chest pain Resp: Denies: dyspnea GI: Reports: diarrhea, bloating, GI cramping and mucus in stool; Denies: abdominal pain, nausea, vomiting or hematochezia : Denies: dysuria, urinary frequency or urinary urgency Musc: Denies: neck pain or back pain Skin/Breast: Denies: rash PFSH ED PFSH: Medical History Positive cardiac stress test Pneumonia of left upper lobe due to Pseudomonas species Aspiration pneumonia due to vomitus Acute on chronic heart failure with mildly reduced ejection fraction (HFmrEF) History of ESBL E. coli infection Low back pain radiating to lower extremity Greater trochanteric bursitis of left hip Decompensated heart failure Peripheral artery occlusion Port-A-Cath in place 12/02/23 Dr Roberts Greater trochanteric bursitis of right hip Prostate cancer History of colon polyps Chronic anticoagulation eliquis, for afib Chronic respiratory failure with hypoxia Coronary artery disease CHF (congestive heart failure) Last echocardiogram normal EF, grade 2/4 diastolic dysfunction October 2019 Hypertension Anemia Atrial fibrillation GERD (gastroesophageal reflux disease) Hypothyroidism Hyperlipidemia COPD (chronic obstructive pulmonary disease) Surgical History History of cataract surgery Left eye - 12/2022 H/O prostate biopsy S/P appendectomy S/P cholecystectomy History of colonoscopy (~04/2020) History of vasectomy History of knee surgery History of coronary artery bypass graft (03/2019) 4 [facility] Family History Father , IN HIS 50'S Lung disease tuberculosis Mother , AT AGE 63 CAD (coronary artery disease) Diabetes Hypertension Sister Cancer Denies family history of Clotting disorder Dementia Hyperlipidemia Psychiatric illness Chronic kidney disease (CKD) Suicide Anesthesia complication Bleeding disorder Stroke Social History Smoking and tobacco/nicotine status: former use of tobacco/nicotine (5 ppd X 52, Quit on 05-12-2017) Quit status (tobacco/nicotine): has quit using Year quit tobacco: 2017 - 4 PPD x 52 Years Former quit date comment: Quit May 12, 2017 Alcohol intake: never Substance/Drug Use: never Additional social history: Wants full CODE STATUS his daughter Sera Jones is his next of kin and she lives in [place]. This was discussed on 04/01/2025 with Luis Eduardo Phillips MD Lives independently: Yes Household members: none Marital status: Legally Current occupational status: employed and retired Do you think of yourself as: Straight/Heterosexual Current gender identity: Male Physical Exam Const: COMMON NORMALS: no acute distress GENERAL APPEARANCE: cooperative and comfortable ORIENTATION/CONSCIOUSNESS: Yes awake, Yes oriented to person, Yes oriented to place and Yes oriented to time HENMT: COMMON NORMALS: normocephalic, atraumatic and hearing grossly normal bilaterally HEAD & SCALP: normocephalic and atraumatic Resp: COMMON NORMALS: normal respiratory effort, No retractions, No use of accessory muscles and clear to auscultation bilaterally AUSCULTATION: clear to auscultation bilaterally Cardio: COMMON NORMALS: regular rate, regular rhythm and No murmurs present (Cardio) RATE: regular rate RHYTHM: regular rhythm GI: COMMON NORMALS: Soft to palpation and No hepatosplenomegaly present AUSCULTATION: Yes normoactive bowel sounds PALPATION: Yes Soft to palpation, No Tenderness to palpation present (GI), No Guarding due to palpation present (GI) and Yes No hepatosplenomegaly present Extremity: COMMON NORMALS: normal to inspection, capillary refill normal, no clubbing, cyanosis or edema, no calf tenderness and no pedal edema Neuro: SENSORIUM/ORIENTATION: Yes oriented to person, Yes oriented to place and Yes oriented to time Skin: COMMON NORMALS: no rashes or lesions noted GENERAL SKIN EXAM: no rashes or lesions noted Course Vital Signs: Vital signs: Vital Signs Temperature 98.3 F 04/23/25 16:56 Pulse Rate 85 04/23/25 19:31 Respiratory Rate 18 04/23/25 19:31 Blood Pressure 111/53 04/23/25 19:31 Pulse Oximetry 100 04/23/25 19:31 Oxygen Delivery Me thod Nasal Cannula 04/23/25 18:30 Oxygen Flow Rate 3 04/23/25 18:30 MDM - Nausea/Vomiting/Diarrhea Medical Decision Making Medical decision making Social determinants: Patient does live alone and has some assistance with ADLs and seeking medical help I reviewed the patient's medical record. I reviewed the patient's current home meds> Alternate historians: None Differential diagnosis: Diverticulitis versus C. difficile versus viral gastroenteritis Lab Review: CBC CMP reviewed. Chronic anemia slightly improved from baseline. BUN and creatinine normal very mild hypokalemia at 3.1 liver functions normalStool for C. difficile was positive. Imaging:None Assessment of risk Level of risk: Moderate Hospitalization considerations: Reexamination: Unchanged Assessment and plan: C. difficile colitis. Patient was on antibiotics in the last month. Will start on actomyosin 125 4 times daily for 10 days follow-up with primary care and return if has further problems or develops blood in stool or worsening pain. Patient wanted to leave so he was discharged home very shortly after discharge the C. difficile result came back we contacted and informed him of result and called in the prescription for vancomycin. Lab Data 04/23/25 16:35 04/23/25 16:35 Laboratory Results WBC 5.39 10^3/uL (3.29-11.43) 04/23/25 16:35 RBC 4.14 10^6/uL (3.85-5.65) 04/23/25 16:35 Hgb 10.90 g/dL (11.27-16.99) L 04/23/25 16:35 Hct 35.3 % (37-53) L 04/23/25 16:35 MCV 85.3 fl (82-101) 04/23/25 16:35 MCH 26.3 pg (27-33) L 04/23/25 16:35 MCHC 30.9 g/dL (30-55) 04/23/25 16:35 RDW 15.7 % (12.1-15.1) H 04/23/25 16:35 Plt Count 265 10^3/cmm (157-399) 04/23/25 16:35 MPV 9.8 fL (7.4-10.4) 04/23/25 16:35 Neut % (Auto) 82.2 % 04/23/25 16:35 Lymph % (Auto) 9.6 % 04/23/25 16:35 Banks % (Auto) 6.1 % 04/23/25 16:35 Eos % (Auto) 1.5 % 04/23/25 16:35 Baso % (Auto) 0.2 % 04/23/25 16:35 Neut # (Auto) 4.43 10^3/uL (1.8-7.7) 04/23/25 16:35 Lymph # (Auto) 0.5 10^3/uL (0.8-4.8) L 04/23/25 16:35 Banks # (Auto) 0.3 10^3/uL (0.2-0.9) 04/23/25 16:35 Eos # (Auto) 0.1 10^3/uL (0.0-0.8) 04/23/25 16:35 Baso # (Auto) 0.0 10^3/uL (0.0-0.1) 04/23/25 16:35 Nucleated RBC % (auto) 0 % 04/23/25 16:35 Nucleated RBCs # 0.0 /100WBC 04/23/25 16:35 Sodium 139 mmol/L (136-145) 04/23/25 16:35 Potassium 3.1 mmol/L (3.5-5.1) L 04/23/25 16:35 Chloride 101 mmol/L (98-107) 04/23/25 16:35 Carbon Dioxide 23 mmol/L (22-29) 04/23/25 16:35 Anion Gap 18.1 (5-19) 04/23/25 16:35 BUN 7 mg/dL (8-23) L 04/23/25 16:35 Creatinine 0.9 mg/dL (0.7-1.2) 04/23/25 16:35 GFR Calculation 83.4 mL/min (90-130) L 04/23/25 16:35 Glucose 190 mg/dL (65-115) H 04/23/25 16:35 Calculated Osmolality 291 mOsm/kg (285-295) 04/23/25 16:35 Calcium 8.5 mg/dL (8.5-10.5) 04/23/25 16:35 Magnesium 2.0 mg/dL (1.7-2.3) 04/23/25 16:35 Total Bilirubin 0.3 mg/dL (0.15-1.2) 04/23/25 16:35 AST 12 U/L (0-40) 04/23/25 16:35 ALT 11 U/L (0-41) 04/23/25 16:35 Alkaline Phosphatase 86 U/L (40-130) 04/23/25 16:35 Total Protein 6.3 g/dL (6.6-8.7) L 04/23/25 16:35 Albumin 3.2 g/dL (3.5-5.2) L 04/23/25 16:35 Globulin 3.1 g/dL (1.3-4.6) 04/23/25 16:35 C. difficile (PCR) Positive (Negative) H 04/23/25 18:27 C.difficile Tox Confrm Negative (Negative) 04/23/25 18:27 No radiology studies performed this visit Discharge Plan Discharge Patient Disposition: Home Clinical Impression: Diarrhea, C. difficile colitis Condition: Stable Prescriptions: No Action diclofenac sodium 1 % gel 4 g topical QID PRN (Reason: joint pain) Qty: 100 3RF Rx Instructions: apply to single knee, ankle, foot; for foot includes sole/toes/top of foot insulin glargine [Lantus Solostar U-100 Insulin] 100 unit/mL (3 mL) insulin pen 10 unit SUBCUT DAILY Qty: 15 0RF folic acid 1 mg tablet 1 mg PO DAILY Qty: 30 0RF Stiolto Respimat 2.5-2.5 mcg/actuation mist 2 puff inhalation DAILY 180 Days Qty: 4 6RF Eliquis 5 mg Tablet 5 mg PO BID Qty: 60 0RF potassium chloride 20 mEq Tablet Extended Release 20 meq PO QAM furosemide [Lasix] 40 mg tablet 40 mg PO QAM Flomax 0.4 mg capsule 0.4 mg PO BID albuterol sulfate 90 mcg/actuation HFA aerosol inhaler 2 inh INHALATION Q4H PRN (Reason: shortness of breath or wheezing) Qty: 18 0RF (DME) pen needle, diabetic [BD Ultra-Fine Micro Pen Needle] 32 gauge x 1/4 needle See Rx Instructions .ROUTE .MEDSUPPLY Qty: 50 0RF Rx Instructions: As directed (DME) lancets Misc See Rx Instructions .ROUTE .MEDSUPPLY Qty: 100 0RF Rx Instructions: As directed (DME) blood-glucose meter [Blood Glucose Monitoring] Kit See Rx Instructions .ROUTE .MEDSUPPLY Qty: 1 0RF Rx Instructions: As directed levothyroxine 125 mcg Tablet 125 mcg PO QAM atorvastatin 20 mg Tablet 10 mg PO BEDTIME albuterol sulfate 2.5 mg /3 mL (0.083 %) Solution For Nebulization 2.5 mg INHALATION Q6H PRN (Reason: Shortness Of Breath) sertraline 100 mg Tablet 100 mg PO QPM clopidogrel 75 mg Tablet 75 mg PO DAILY aspirin 81 mg Tablet,Delayed Release (Dr/Ec) 81 mg PO DAILY gabapentin 100 mg Capsule 200 mg PO TID cholecalciferol (vitamin D3) [Vitamin D3] 50 mcg (2,000 unit) Tablet 50 mcg PO DAILY sennosides-docusate sodium 8.6-50 mg tablet 1 tab PO DAILY arformoterol 15 mcg/2 mL Solution For Nebulization 15 mcg inhalation BID.RESPIRATORY Qty: 120 0RF budesonide 0.5 mg/2 mL Suspension For Nebulization 0.5 mg inhalation BID.RESPIRATORY Qty: 60 0RF prednisone 10 mg tablet See Taper PO DIRECTED Qty: 42 0RF Taper: predniSONE 60-10 60 mg Daily for 2 Days and 0 Hour 50 mg Daily for 2 Days and 0 Hour 40 mg Daily for 2 Days and 0 Hour 30 mg Daily for 2 Days and 0 Hour 20 mg Daily for 2 Days and 0 Hour 10 mg Daily for 2 Days and 0 Hour Rx Instructions: see taper instructions metoprolol tartrate 25 mg Tablet 25 mg PO BID Qty: 60 0RF loratadine 10 mg tablet 10 mg PO QAM nitroglycerin [Nitrostat] 0.4 mg Tablet, Sublingual 0.4 mg SUBLINGUAL Q5M PRN (Reason: Chest Pain) Rx Instructions: do not exceed 3 doses per episode digoxin 250 mcg (0.25 mg) tablet 250 mcg PO QAM calcium carbonate 500 mg calcium (1,250 mg) Tablet 500 mg PO BID pantoprazole 40 mg tablet,delayed release (DR/EC) 40 mg PO BID Jardiance 25 mg tablet 12.5 mg PO DAILY cyanocobalamin (vitamin B-12) [Vitamin B-12] 100 mcg Tablet 100 mcg PO DAILY Discharge Orders: Discharge ED (Routine); Ordered 04/23/25 Ordered By: Job Magana Referrals: Isela Gipson FNP [Primary Care Provider, Nurse Practitioner] Discharge Diet: Usual diet Discharge Activity: Increase activity as tolerated Patient Instructions: Opioid Safety, Pain Management, Patient Portal & Elizabeth Instructions Activity Restrictions/Additional Instructions: [facility]. It is very important that you follow up as instructed or that you return to the Emergency Department should you have concerns or if your condition changes or worsens in any way. Emergency department visits are focused on emergent conditions, in some cases you may require further evaluation on an outpatient basis. You were seen today for complaints of diarrhea. Your laboratory test showed slightly low potassium which we replaced with oral potassium. There were no signs of dehydration. You were given some IV fluids. Your white count is normal. We checked for C. difficile we will contact you with the result when that is available. Recommend you increase your fluid intake. (Please note that included in your discharge packet is information concerning opioid safety and pain management. This information is given to all patients were discharged from the ER regardless of their discharge diagnosis or the medicines they usually take or are prescribed.) Print Language: Japanese 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 of Care Code ED Education Administrator for Kevin Arceo
[2025-04-23 18:30] VITALS: BP 121/57; PULSE 97; O2SAT 98
--- NOTE | 2025-04-23 18:46 | PC.NURSE ---
ATTEMPTED TO COLLECT URINE @ 1800 AND @ 1845.
[2025-04-23 19:31] VITALS: BP 111/53; PULSE 85; RESP 18; O2SAT 100
[2025-04-23 19:43] LABS: C.Diff PCR (Lab) POSITIVE (Negative)
[2025-04-23 20:27] LABS: Clostridioides Difficile Toxin NEGATIVE (Negative)
--- NOTE | 2025-04-23 23:10 | PC.NURSE ---
Pt. prescription sent to pharmacy for Cdiff per verbal order via Dr. duron.
== END 2025-04-23 19:34 | disposition home or self-care (01) ==
PROVIDERS: Emergency Provider Family Medicine; PCP Nurse Practitioner
DX: R19.7 Diarrhea, unspecified (principal); A04.72 Enterocolitis due to Clostridium difficile, not specified as recurrent; Z79.4 Long term (current) use of insulin; Z79.01 Long term (current) use of anticoagulants; Z79.02 Long term (current) use of antithrombotics/antiplatelets; Z79.82 Long term (current) use of aspirin; Z87.891 Personal history of nicotine dependence; J44.9 Chronic obstructive pulmonary disease, unspecified; Z85.46 Personal history of malignant neoplasm of prostate; E78.5 Hyperlipidemia, unspecified; I11.0 Hypertensive heart disease with heart failure; I50.9 Heart failure, unspecified
CPT/HCPCS: 80053; 83735; 85025; 87324; 87493; 96361; 96374; 99284; J2405; J7030

== ENCOUNTER 2025-05-05 09:48 | Oncology outpatient (recurring) (ONCR) | payer OTHER, SELFPAY ==
[2025-05-05 10:07] VITALS: PULSE 86; RESP 18; O2SAT 94
== END 2025-06-02 23:59 | disposition home or self-care (01) ==
PROVIDERS: Family Provider Student in an Organized Health Care Education/Training Program; PCP Nurse Practitioner; Visit Provider Internal Medicine
DX: J44.9 Chronic obstructive pulmonary disease, unspecified (principal); Z86.19 Personal history of other infectious and parasitic diseases; J98.8 Other specified respiratory disorders; R94.2 Abnormal results of pulmonary function studies
CPT/HCPCS: 94060; 94726; 94729; J7613

== ENCOUNTER → 2025-05-06 08:28 | Outpatient (BNVA) | payer OTHER, SELFPAY | PROVIDERS: Family Provider Student in an Organized Health Care Education/Training Program; PCP Nurse Practitioner; Visit Provider Internal Medicine | DX: I25.10 Atherosclerotic heart disease of native coronary artery without angina pectoris (principal); I10 Essential (primary) hypertension; I48.91 Unspecified atrial fibrillation; Z79.01 Long term (current) use of anticoagulants; Z79.82 Long term (current) use of aspirin; E78.5 Hyperlipidemia, unspecified; I77.9 Disorder of arteries and arterioles, unspecified; J44.1 Chronic obstructive pulmonary disease with (acute) exacerbation; Z87.891 Personal history of nicotine dependence; J18.9 Pneumonia, unspecified organism; J84.10 Pulmonary fibrosis, unspecified; J43.9 Emphysema, unspecified; Z99.81 Dependence on supplemental oxygen; Z86.79 Personal history of other diseases of the circulatory system | CPT/HCPCS: 99214; Q3014 ==